=== PATIENT | male | born 1945 | race Caucasian/White ===

== ENCOUNTER 2017-11-16 17:56 | Emergency (ER) | payer OTHER ==
[2017-11-16 18:51] LABS: Absolute Lymphocytes (CBC) 1.2 K/uL (0.7-4.9); Absolute Monocytes 0.6 K/uL (0.1-1.3); Absolute Neutrophil 7.7 K/uL (1.8-8.0); Basophils % 0.4 % (0-1.3); Eosinophils % 2.5 % (0-4.4); Hematocrit 36.8 % (39.6-49.0); Lymphocytes % 12.6 % (15.3-44.8); MCH 29.8 pg (27.0-35.0); MCV 90.9 fL (80-100); MPV 8.6 fL (7.6-11.3); Monocytes % 5.8 % (3.3-12.3); RBC Red Blood Cell Count 4.05 M/uL (4.33-5.43)
[2017-11-16 19:13] LABS: Potassium 3.8 mEq/L (3.6-5.0)
--- NOTE | 2017-11-16 19:20 | RAD REPORT ---
EXAM DESCRIPTION: CT - Head Brain Wo Cont - 11/16/2017 6:56 pm CLINICAL HISTORY: Alteration of consciousness/ head injury COMPARISON: none TECHNIQUE: Computed axial tomography of the head was obtained. IV contrast was not requested. All CT scans are performed using dose optimization technique as appropriate and may include automated exposure control or mA/KV adjustment according to patient size. FINDINGS: Left frontal scalp swelling is present. An intracranial bleed is not seen . The ventricles are normal in caliber. No extra-axial fluid collection is noted. Moderate low-density areas within the right cerebrum has th e appearance of cystic encephalomalacia probably secondary to an old infarction. Mild low-density wit hin the periventricular deep white matter likely represent ischemic changes secondary to small vessel disease. Fluid within the sinuses/ mastoids is not seen. IMPRESSION: Left frontal scalp swelling without visualization acute intracranial abnormality. If pat ient's symptoms persist MRI of the brain would be recommended.
--- NOTE | 2017-11-16 20:29 | ER ---
Nurse's Notes [facility] Name: Valentín Senior Jr Age: 72 yrs Sex: Male : 1945 Arrival Date: 11/16/2017 Time: 17:58 Bed 6 Private MD: Diagnosis: Hypoglycemia, unspecified;Superficial injury of head Presentation: 11/16 17:59 Presenting complaint: EMS states: called EMS for diabetic episode, reported pt was hb not acting himself, flopping around in the bed. Upon arrival BGL 29, improved to 134 after 1/2 AMP D50. Hx AFib, DM, HTN, CVA, pacemaker. Transition of care: patient was not received from another setting of care. Onset of symptoms was November 16, 2017. Initial Sepsis Screen: Does the patient meet any 2 criteria? No. Patient's initial sepsis screen is negative. Does the patient have a suspected source of infection? No. Patient's initial sepsis screen is negative. Care prior to arrival: IV initiated. 20 GA, in the right antecubital area. 17:59 Method Of Arrival: EMS: [facility] hb 17:59 Acuity: ILANA 3 hb Historical: - Allergies: 18:05 Morphine; hb - Home Meds: 18:05 apixaban 5 mg Oral 1 tab 2 times per day [Active]; artificial tears(hypromellose) 0.4 % hb Opht drop 1 drop right for Dry Eye [Active]; calcium 250 mg/ vitamin D 125 Tab [Active]; docusate calcium 240 mg Oral cap 1 cap once daily [Active]; Creon 6,000-19,000 -30,000 unit Oral cpDR 1 cap 4 x day [Active]; finasteride 5 mg Oral tab 1 tab once daily [Active]; hydroxyzine pamoate 50 mg Oral cap 1 cap at bedtime [Active]; insulin detemir 30 units SQ daily [Active]; Insulin Glargine insulin aspartate Flexpen Sub-Q 12 units before meals [Active]; latanoprost ,005 % OPH Soln [Active]; lidocaine 5% patch [Active]; loratadine 10 mg Oral tab 1 tab once daily [Active]; metoprolol tartrate 25 mg Oral tab 0.5 tab 2 times per day [Active]; omeprazole 20 mg Oral cpDR 1 cap once daily [Active]; oxybutynin chloride 5 mg Oral tab 1 tab 3 times per day [Active]; pantoprazole 40 mg Oral TbEC 1 tab 2 times per day [Active]; pregabalin 150 mg cap Oral 3 times per day [Active]; ranitidine HCl 300 mg Oral cap [Active]; simvastatin 10 mg Oral tab 1 tab once daily [Active]; tamsulosin 0.4 mg Oral cp24 1 cap once daily [Active]; tiotropium 18 mcg INHL CAP 30 daily [Active]; - PMHx: 18:05 Atrial Fib; CAD; CVA; Diabetes - IDDM; Hernia; Pacemaker; Pancreatitis; Pneumonia; hb - Immunization history:: Adult Immunizations up to date. - Social history:: Smoking status: Patient/guardian denies using tobacco. Screenin:30 Abuse screen: Denies threats or abuse. Denies injuries from another. Nutritional hb screening: No deficits noted. Tuberculosis screening: No symptoms or risk factors identified. Fall Risk Total Damon Fall Scale indicates Low Risk Score (25-44 pts). Fall prevention measures have been instituted. Side Rails Up X 2 Frequent Obs/Assesments occuring Family Present and informed to notify staff if they need to leave bedside As available Patient and Family Educated on Fall Prevention Program and strategies. Assessment: 18:29 General: Appears in no apparent distress. Behavior is calm, cooperative. Pain: Denies hb pain. Neuro: Level of Consciousness is awake, alert, obeys commands, Oriented to person, place, time, situation. Cardiovascular: Capillary refill < 3 seconds Patient's skin is warm and dry. Respiratory: Airway is patent Trachea midline Respiratory effort is even, unlabored, Respiratory pattern is regular, symmetrical, Breath sounds are clear bilaterally. GI: No signs and/or symptoms were reported involving the gastrointestinal system. : No signs and/or symptoms were reported regarding the genitourinary system. EENT: No signs and/or symptoms were reported regarding the EENT system. Derm: No signs and/or symptoms reported regarding the dermatologic system. Skin is pink, warm \T\ dry. Musculoskeletal: No signs and/or symptoms reported regarding the musculoskeletal system. 19:13 Reassessment: Patient appears in no apparent distress at this time. Patient is alert, ak1 oriented x 3, equal unlabored respirations, skin warm/dry/pink. pt A\T\OX4, finishing meal tray at the bedside since returning from CT. Patient states symptoms have improved. 19:40 Reassessment: pt given regular soda per ERP verbal order. ak1 Vital Signs: 17:59 BP 99 / 71; Pulse 78; Resp 18; Temp 97.9; Pulse Ox 100% on R/A; Pain 0/10; hb 18:46 BP 103 / 68; Pulse 74; Resp 16; Pulse Ox 100% on R/A; Pain 0/10; hb ED Course: 17:58 Patient arrived in ED. hb 18:02 Triage completed. hb 18:09 [place] PA is PHCP. jr8 18:09 Robert Guevara MD is Attending Physician. jr8 18:26 Mellisa Jimenez, RN is Primary Nurse. hb 18:29 Arm band placed on right wrist. hb 18:30 Patient has correct armband on for positive identification. Placed in gown. Bed in low hb position. Call light in reach. Side rails up X2. 18:[address] via stretcher. jg1 18:56 CT Head Brain wo Cont In Process Unspecified. EDMS 20:31 No provider procedures requiring assistance completed. ak1 20:38 IV discontinued, intact, bleeding controlled, No redness/swelling at site. Pressure ak1 dressing applied, 20g to right AC removed prior to discharge. Administered Medications: No medications were administered Point of Care Testing: Blood Glucose: 17:59 Blood Glucose: 131 mg/dL; hb 19:40 Blood Glucose: 89 mg/dL; ak1 20:14 Blood Glucose: 173 mg/dL; ak1 Ranges: Outcome: 20:27 Discharge ordered by . jr8 20:38 Discharged to home via wheelchair, with family. ak1 20:38 Condition: improved 20:38 Discharge instructions given to patient, family, Instructed on discharge instructions, follow up and referral plans. Demonstrated understanding of instructions, follow-up care. 20:40 Patient left the ED. ak1 Signatures: Dispatcher [employer] EDMS Prachi Elizabeth j [place] PA PA jr8 Anna Antonio, RN RN ak1 Mellisa Jimenez, DEVON RN hb
--- NOTE | 2017-11-16 20:29 | EDPHYS ---
Physician Documentation [facility] Name: Valentín Senior Jr Age: 72 yrs Sex: Male : 1945 Arrival Date: 11/16/2017 Time: 17:58 Bed 6 Private MD: ED Physician Robert Guevara HPI: 11/16 18:41 This 72 yrs old Male presents to ER via EMS with complaints of Low Blood jr8 Sugar. 18:41 Onset: The symptoms/episode began/occurred acutely, today. Associated signs and jr8 symptoms: Pertinent positives: None. Current symptoms: In the emergency department the patient's symptoms have resolved, the patient is alert and fully oriented, has normal speech, has normal responsiveness, has no confusion. The patient has experienced similar episodes in the past, several times. The patient has not recently seen a physician. Family stated that he fell yesterday. Has history of frequent falls due to instability. Called EMS today when he started to become altered and combative. EMS found BGL to be 28. Glucose given. Patient now back to baseline. Denies any chest pain, shortness of breath, worsening of cough, fevers, abdominal pain, n/v/d, urinary complaints. Stated that his BGL will sometimes do this . Historical: - Allergies: 18:05 Morphine; hb - Home Meds: 18:05 apixaban 5 mg Oral 1 tab 2 times per day [Active]; artificial tears(hypromellose) 0.4 % hb Opht drop 1 drop right for Dry Eye [Active]; calcium 250 mg/ vitamin D 125 Tab [Active]; docusate calcium 240 mg Oral cap 1 cap once daily [Active]; Creon 6,000-19,000 -30,000 unit Oral cpDR 1 cap 4 x day [Active]; finasteride 5 mg Oral tab 1 tab once daily [Active]; hydroxyzine pamoate 50 mg Oral cap 1 cap at bedtime [Active]; insulin detemir 30 units SQ daily [Active]; Insulin Glargine insulin aspartate Flexpen Sub-Q 12 units before meals [Active]; latanoprost ,005 % OPH Soln [Active]; lidocaine 5% patch [Active]; loratadine 10 mg Oral tab 1 tab once daily [Active]; metoprolol tartrate 25 mg Oral tab 0.5 tab 2 times per day [Active]; omeprazole 20 mg Oral cpDR 1 cap once daily [Active]; oxybutynin chloride 5 mg Oral tab 1 tab 3 times per day [Active]; pantoprazole 40 mg Oral TbEC 1 tab 2 times per day [Active]; pregabalin 150 mg cap Oral 3 times per day [Active]; ranitidine HCl 300 mg Oral cap [Active]; simvastatin 10 mg Oral tab 1 tab once daily [Active]; tamsulosin 0.4 mg Oral cp24 1 cap once daily [Active]; tiotropium 18 mcg INHL CAP 30 daily [Active]; - PMHx: 18:05 Atrial Fib; CAD; CVA; Diabetes - IDDM; Hernia; Pacemaker; Pancreatitis; Pneumonia; hb - Immunization history:: Adult Immunizations up to date. - Social history:: Smoking status: Patient/guardian denies using tobacco. ROS: 18:41 Eyes: Negative for injury, pain, redness, and discharge, ENT: Negative for injury, jr8 pain, and discharge, Neck: Negative for injury, pain, and swelling, Cardiovascular: Negative for chest pain, palpitations, and edema, Respiratory: Negative for shortness of breath, cough, wheezing, and pleuritic chest pain, Abdomen/GI: Negative for abdominal pain, nausea, vomiting, diarrhea, and constipation, Back: Negative for injury and pain, MS/Extremity: Negative for injury and deformity, Skin: Negative for injury, rash, and discoloration, Neuro: Negative for headache, weakness, numbness, tingling, and seizure. Exam: 18:41 Eyes: Pupils equal round and reactive to light, extra-ocular motions intact. Lids and jr8 lashes normal. Conjunctiva and sclera are non-icteric and not injected. Cornea within normal limits. Periorbital areas with no swelling, redness, or edema. ENT: Nares patent. No nasal discharge, no septal abnormalities noted. Tympanic membranes are normal and external auditory canals are clear. Oropharynx with no redness, swelling, or masses, exudates, or evidence of obstruction, uvula midline. Mucous membranes moist. Neck: Trachea midline, no thyromegaly or masses palpated, and no cervical lymphadenopathy. Supple, full range of motion without nuchal rigidity, or vertebral point tenderness. No Meningismus. Cardiovascular: Regular rate and rhythm with a normal S1 and S2. No gallops, murmurs, or rubs. Normal PMI, no JVD. No pulse deficits. Respiratory: Lungs have equal breath sounds bilaterally, wheezing noted bilaterally. No increased work of breathing, no retractions or nasal flaring. Abdomen/GI: Soft, non-tender, with normal bowel sounds. No distension or tympany. No guarding or rebound. No evidence of tenderness throughout. Back: No spinal tenderness. No costovertebral tenderness. Full range of motion. Skin: Warm, dry with normal turgor. Normal color with no rashes, no lesions, and no evidence of cellulitis. MS/ Extremity: Pulses equal, no cyanosis. Neurovascular intact. Full, normal range of motion. Neuro: Awake and alert, GCS 15, oriented to person, place, time, and situation. Cranial nerves II-XII grossly intact. Motor strength 5/5 in all extremities. Sensory grossly intact. Cerebellar exam normal. Normal gait. 18:44 Head/face: Noted is contusion, that is superficial, of the forehead. jr8 Vital Signs: 17:59 BP 99 / 71; Pulse 78; Resp 18; Temp 97.9; Pulse Ox 100% on R/A; Pain 0/10; hb 18:46 BP 103 / 68; Pulse 74; Resp 16; Pulse Ox 100% on R/A; Pain 0/10; hb MDM: 18:09 Patient medically screened. jr8 20:26 Data reviewed: vital signs, nurses notes, lab test result(s), radiologic studies, plain jr8 films, and as a result, I will discharge patient. Data interpreted: Pulse oximetry: on room air is 100 %. Interpretation: normal. Counseling: I had a detailed discussion with the patient and/or guardian regarding: the historical points, exam findings, and any diagnostic results supporting the discharge/admit diagnosis, lab results, radiology results, the need for outpatient follow up, a family practitioner, to return to the emergency department if symptoms worsen or persist or if there are any questions or concerns that arise at home. Response to treatment: the patient's symptoms have resolved after treatment. 11/16 18:13 Order name: Glucose, Ancillary Testing; Complete Time: 18:32 EDMS 11/16 18:37 Order name: CBC with Diff; Complete Time: 19:10 jr8 11/16 18:37 Order name: Basic Metabolic Panel; Complete Time: 19:26 [facility] 11/16 18:37 Order name: Diet Ada 2000 Abdiaziz; Complete Time: 18:37 jr8 11/16 18:37 Order name: CT Head Brain wo Cont; Complete Time: 19:26 8 11/16 19:41 Order name: Glucose, Ancillary Testing; Complete Time: 19:42 [facility] 11/16 18:37 Order name: IV; Complete Time: 18:39 jr8 Administered Medications: No medications were administered Point of Care Testing: Blood Glucose: 17:59 Blood Glucose: 131 mg/dL; hb 19:40 Blood Glucose: 89 mg/dL; ak1 20:14 Blood Glucose: 173 mg/dL; ak1 Ranges: Critical Glucose Levels:Adult <50 mg/dl or >400 mg/dl <40 mg/dl or >180 mg/dl Disposition: 11/16/17 20:27 Discharged to Home. Impression: Hypoglycemia, unspecified, Superficial injury of head. - Condition is Stable. - Discharge Instructions: Head Injury, Adult, Hypoglycemia, Blood Glucose Monitoring, Adult. - Medication Reconciliation Form, Thank You Letter, Antibiotic Education, Prescription Opioid Use form. - Follow up: Private Physician; When: 1 - 2 days; Reason: Recheck today's complaints, Continuance of care, Re-evaluation by your physician. - Problem is new. - Symptoms have improved. Addendum: 11/19/2017 19:03 Co-signature as Attending Physician, Robert Guevara MD. r n Signatures: Dispatcher [employer] [facility] Robert Guevara MD MD rn Roszak, Josh, PA PA jr8 Anna Antonio RN RN ak1 Mellisa Jimenez RN RN Corrections: (The following items were deleted from the chart) 11/16 18:44 18:41 Eyes: Pupils equal round and reactive to light, extra-ocular motions intact. Lids jr8 and lashes normal. Conjunctiva and sclera are non-icteric and not injected. Cornea within normal limits. Periorbital areas with no swelling, redness, or edema. ENT: Nares patent. No nasal discharge, no septal abnormalities noted. Tympanic membranes are normal and external auditory canals are clear. Oropharynx with no redness, swelling, or masses, exudates, or evidence of obstruction, uvula midline. Mucous membranes moist. Neck: Trachea midline, no thyromegaly or masses palpated, and no cervical lymphadenopathy. Supple, full range of motion without nuchal rigidity, or vertebral point tenderness. No Meningismus. Cardiovascular: Regular rate and rhythm with a normal S1 and S2. No gallops, murmurs, or rubs. Normal PMI, no JVD. No pulse deficits. Respiratory: Lungs have equal breath sounds bilaterally, wheezing noted bilaterally. No increased work of breathing, no retractions or nasal flaring. Abdomen/GI: Soft, non-tender, with normal bowel sounds. No distension or tympany. No guarding or rebound. No evidence of tenderness throughout. Back: No spinal tenderness. No costovertebral tenderness. Full range of motion. Skin: Warm, dry with normal turgor. Normal color with no rashes, no lesions, and no evidence of cellulitis. MS/ Extremity: Pulses equal, no cyanosis. Neurovascular intact. Full, normal range of motion. Neuro: Awake and alert, GCS 15, oriented to person, place, time, and situation. Cranial nerves II-XII grossly intact. Motor strength 5/5 in all extremities. Sensory grossly intact. Cerebellar exam normal. Normal gait. jr8
== END 2017-11-16 20:40 | disposition home or self-care (01) ==
LOC: ER 17:56
DX: E11.649 Type 2 diabetes mellitus with hypoglycemia without coma (principal); S09.90XA Unspecified injury of head, initial encounter; I48.2 Chronic atrial fibrillation; I25.10 Atherosclerotic heart disease of native coronary artery without angina pectoris; Z79.4 Long term (current) use of insulin; Z87.01 Personal history of pneumonia (recurrent); Z95.0 Presence of cardiac pacemaker; X58.XXXA Exposure to other specified factors, initial encounter; Y93.9 Activity, unspecified; Y92.9 Unspecified place or not applicable; Z91.81 History of falling
CPT/HCPCS: 36415; 70450; 80048; 82962; 85025; 99284

== ENCOUNTER 2018-07-16 11:56 | Emergency (ER) | payer OTHER ==
--- OUTSIDE RECORDS SUMMARY | 2018-07-16 12:01 | XMS REPORT | Continuity of Care Document ---
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 DYSRHYTHMIAS Active 08/16/[address] GIOVANNA Active 08/16/19 [facility] BILLING [address] [place] [address] Atrial Active Problem 08/21/2016 [facility] fibrillation [facility] CVA (<span Resolved Problem 08/21/2016 Had CVA in [facility] ID="[id number] 1994 which Medical ">Confirmed</spa left [facility] n>)<sup>1</sup> 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 He is using 1 stick for mobility Diabetes Active Problem 08/21/2016 On insulin [facility] mellitus<sup>2</ Medical sup> Center Pancreas Resolved Problem 08/21/2016 Had part of [facility] disorder<sup>3</ his Medical sup> pancreas Center removed due to excess ETOH. DYSTHYMIC Active [facility] Medications Medication Details Route Status Patient Ordering Order Source Instructions Provider Date bacitracin-polym 1 appl, Route: No Longer 08/19[facility] yxin B topical TOP, Daily, Drug Active 2016 Medical form: [place], [place] Start date: 08/19/16 9:00:00 NECK PINNER, Duration: 30 day, Stop date: 09/17/16 9:00:00 CSTNotes: (Same As: Polysporin) Neosporin 1 appl, Route: Inactive 08/18[facility] TOP, Daily, Drug 2017 Medical form: OINT, [place] Start date: 08/18/16 15:07:00 NECK PINNER, Duration: 30 day, Stop date: 09/17/16 9:00:00 NECK PINNER apixaban 5 MG 5 mg=1 tab, PO, Active 08/18[facility] Oral Tablet BID, # 60 tab, 0 2016 Medical [Eliquis] Refill(s) Center tamsulosin 0.4 0.4 mg=1 cap, Active 01/25/ [facility] [place] mg oral capsule PO, Daily, # 30 2016 Medical cap, 0 Refill(s) Center Ranitidine 150 150 mg=1 tab, Active [place] MG Oral Tablet PO, BID, # 60 2016 Medical tab, 0 Refill(s) Center omeprazole 40 mg 40 mg=1 cap, PO, Active [place] oral delayed Daily, # 30 cap, 2016 Medical release capsule 0 Refill(s) Center Metformin 500 mg=1 tab, Active [place] hydrochloride PO, BID-Meals, # 2017 Medical 500 MG Oral 180 tab, 0 Center Tablet Refill(s) Furosemide 20 MG 20 mg=1 tab, PO, Active [place] Oral Tablet Daily, # 30 tab, 2016 Medical 0 Refill(s) Center finasteride 5 mg 5 mg=1 tab, PO, Active [place] oral tablet Daily, # 30 tab, 2016 Medical 0 Refill(s) Center DULoxetine 60 mg 60 mg=1 cap, PO, Active [place] oral delayed Daily, # 30 cap, 2016 Medical release capsule 0 Refill(s) Center DULoxetine 60 mg 60 mg=1 cap, PO, Inactive [place] oral delayed Daily, # 30 cap, 2016 Medical release capsule 0 Refill(s) Center finasteride 5 mg 5 mg=1 tab, PO, Inactive [place] oral tablet Daily, # 30 tab, 2016 Medical 0 Refill(s) Center Furosemide 20 MG 20 mg=1 tab, PO, Inactive [place] Oral Tablet Daily, # 30 tab, 2016 Medical 0 Refill(s) Center Metformin 500 mg=1 tab, Inactive [place] hydrochloride PO, BID-Meals, # 2017 Medical 500 MG Oral 180 tab, 0 Center Tablet Refill(s) omeprazole 40 mg 40 mg=1 cap, PO, Inactive [place] oral delayed Daily, # 30 cap, 2016 Medical release capsule 0 Refill(s) Center Ranitidine 150 150 mg=1 tab, Inactive [place] MG Oral Tablet PO, BID, # 60 2017 Medical tab, 0 Refill(s) Center tamsulosin 0.4 0.4 mg=1 cap, Inactive [place] mg oral capsule PO, Daily, # 30 2016 Medical cap, 0 Refill(s) Center apixaban 5 MG 5 mg=1 tab, PO, Inactive [place] Oral Tablet BID, # 60 tab, 0 2017 Medical [Eliquis] Refill(s) Center atorvastatin 40 40 mg=1 tab, PO, Active [place] mg oral tablet Bedtime, # 30 2016 Medical tab, 0 Refill(s) Center metoprolol 25 mg=1 tab, PO, Active [place] tartrate 25 mg BID, # 60 tab, 0 2017 Medical oral tablet Refill(s) Center metoprolol 25 mg=1 tab, PO, Inactive [facility] tartrate 25 mg BID, # 60 tab, 0 2017 Medical oral tablet Refill(s) Center atorvastatin 40 40 mg=1 tab, PO, Inactive [place] mg oral tablet Bedtime, # 30 2016 Medical tab, 0 Refill(s) Center apixaban 5 MG 5 mg=1 tab, PO, Inactive [facility] Oral Tablet BID, # 60 tab, 0 2017 Medical [Eliquis] Refill(s) Center tamsulosin 0.4 0.4 mg=1 cap, Inactive [place] mg oral capsule PO, Daily, # 30 2016 Medical cap, 0 Refill(s) Center Ranitidine 150 150 mg=1 tab, Inactive [place] MG Oral Tablet PO, BID, # 60 2017 Medical tab, 0 Refill(s) Center omeprazole 40 mg 40 mg=1 cap, PO, Inactive [facility] oral delayed Daily, # 30 cap, 2016 Medical release capsule 0 Refill(s) Center Metformin 500 mg=1 tab, Inactive [place] hydrochloride PO, BID-Meals, # 2017 Medical 500 MG Oral 180 tab, 0 Center Tablet Refill(s) Furosemide 20 MG 20 mg=1 tab, PO, Inactive [place] Oral Tablet Daily, # 30 tab, 2017 Medical 0 Refill(s) Center finasteride 5 mg 5 mg=1 tab, PO, Inactive [facility] oral tablet Daily, # 30 tab, 2017 Medical 0 Refill(s) Center DULoxetine 60 mg 60 mg=1 cap, PO, Inactive [place] oral delayed Daily, # 30 cap, 2017 Medical release capsule 0 Refill(s) Center apixaban 5 MG 5 mg=1 tab, PO, Inactive [facility] Oral Tablet BID, # 60 tab, 0 2017 Medical [Eliquis] Refill(s) Center tamsulosin 0.4 0.4 mg=1 cap, Inactive [place] mg oral capsule PO, Daily, # 30 2017 Medical cap, 0 Refill(s) Center Ranitidine 150 150 mg=1 tab, Inactive [place] MG Oral Tablet PO, BID, # 60 2017 Medical tab, 0 Refill(s) Center Metformin 500 mg=1 tab, Inactive [place] hydrochloride PO, BID-Meals, # 2017 Medical 500 MG Oral 180 tab, 0 Center Tablet Refill(s) Furosemide 20 MG 20 mg=1 tab, PO, Inactive [facility] Oral Tablet Daily, # 30 tab, 2017 Medical 0 Refill(s) Center finasteride 5 mg 5 mg=1 tab, PO, Inactive [facility] oral tablet Daily, # 30 tab, 2017 Medical 0 Refill(s) Center DULoxetine 60 mg 60 mg=1 cap, PO, Inactive [facility] oral delayed Daily, # 30 cap, 2017 Medical release capsule 0 Refill(s) Center metoprolol 25 mg=1 tab, PO, Inactive [facility] tartrate 25 mg BID, # 60 tab, 0 2017 Medical oral tablet Refill(s) Center omeprazole 40 mg 40 mg=1 cap, PO, Inactive [facility] oral delayed Daily, # 30 cap, 2017 Medical release capsule 0 Refill(s) Center atorvastatin 40 40 mg=1 tab, PO, Inactive [facility] mg oral tablet Bedtime, # 30 2017 Medical tab, 0 Refill(s) Center hydrOXYzine 25 mg=1 cap, PO, Inactive [facility] pamoate Q6H, PRN nausea, 2017 Medical # 20 cap, 0 Center Refill(s) Furosemide 20 MG 20 mg=1 tab, PO, Inactive [facility] Oral Tablet Daily, # 30 tab, 2017 Medical 0 Refill(s) Center finasteride 5 mg 5 mg=1 tab, PO, Inactive [facility] oral tablet Daily, # 30 tab, 2017 Medical 0 Refill(s) Center omeprazole 20 mg 20 mg=1 tab, PO, Inactive [facility] oral enteric BID, # 30 tab, 0 2017 Medical coated tablet Refill(s) [place] tamsulosin 0.4 0.4 mg=1 cap, Inactive [facility] mg oral capsule PO, Daily, # 30 2017 Medical cap, 0 Refill(s) [place] Omeprazole PO, Daily, 0 Inactive [facility] Refill(s) 2017 [facility] metoprolol 25 mg=1 tab, PO, Inactive [facility] tartrate 25 mg BID, # 180 tab, 2017 Medical oral tablet 0 Refill(s) [place] apixaban 5 MG 5 mg=1 tab, PO, Inactive [facility] Oral Tablet BID, 0 Refill(s) 2017 Medical [Eliquis] [place] Metformin 500 mg=1 tab, Inactive [facility] hydrochloride PO, BID-Meals, # 2017 Medical 500 MG Oral 30 tab, 0 [place] Tablet Refill(s) Ranitidine 150 150 mg=1 tab, Inactive 08/18[facility] MG Oral Tablet PO, BID, # 60 2017 Medical tab, 0 Refill(s) [place] DULoxetine 60 mg 60 mg=1 cap, PO, Inactive 08/18[facility] oral delayed Daily, # 30 cap, 2017 Medical release capsule 0 Refill(s) [place] simvastatin 10 10 mg=1 tab, PO, Inactive 08/18[facility] mg oral tablet Bedtime, # 30 2017 Medical tab, 0 Refill(s) [place] oxybutynin 5 mg 5 mg=1 tab, PO, Inactive [facility] oral tablet TID, PRN 2017 Medical Other-See Center Comments, # 30 tab, 0 Refill(s) Sodium Chloride 250 mL, 250 Inactive [facility] 0.154 MEQ/ML ml/hr, Infuse 2017 Medical Injectable Over: 1 hr, [place] Solution Route: IV, 250, Drug form: INJ, ONCE, Priority: STAT, Dosing Weight 82 kg, Start date: 08/18/16 8:56:00 NECK PINNER, Duration: 1 doses or times, Stop date: 08/18/16 8:56:00 NECK PINNER Tylenol 650 mg, 2 tab, Inactive [facility] Route: PO, Drug 2017 Medical form: TAB, Q6H, Center Dosing Weight 82, kg, PRN Pain Score 1-3, Start date: 08/18/16 8:52:00 NECK PINNER, Duration: 30 day, Stop date: 09/17/16 8:51:00 CSTNotes: Do not exceed 4 gm/day. (Same as: Tylenol) Magnesium Oxide 800 mg, 2 tab, Inactive [facility] Route: PO, Drug 2016 Medical form: TAB, ONCE, Center Dosing Weight 82, kg, Start date: 08/18/16 8:49:00 NECK PINNER, Stop date: 08/18/16 8:49:00 CSTNotes: (Same as: Mag-Ox 400) Magnesium oxide [id number] elemental magnesium Dose=____mg magnesium oxide (___mg elemental magnesium) Metoprolol 5 mg, 5 mL, Inactive [facility] Route: IV, Drug 2016 Medical form: INJ, ONCE, Center Dosing Weight 82, kg, Start date: 08/18/16 4:35:00 NECK PINNER, Stop date: 08/18/16 4:35:00 CSTNotes: (Same as: Lopressor) Push over 2 minutes Robitussin 30 mg, Route: No Longer [facility] CoughGels PO, Q6H, Dosing Active 2016 Medical Weight 82, kg, Center Start date: 08/18/16 0:00:00 NECK PINNER, Duration: 30 day, Stop date: 09/16/16 18:00:00 NECK PINNER Eliquis 5 mg, 1 tab, No Longer [facility] Route: PO, Drug Active 2016 Medical form: TAB, Q12H, Center Dosing Weight 82, kg, Start date: 08/17/16 21:00:00 NECK PINNER, Duration: 30 day, Stop date: 09/16/16 9:00:00 CSTNotes: Same as: Eliquis benzocaine-menth 1 lozenge, No Longer [facility] ol topical Route: MUCOUS Active 2016 Medical MEM, Drug Form: Center DANILO, Q2H, PRN Cough, Start date: 08/17/16 19:29:00 NECK PINNER, Duration: 30 day, Stop date: 09/16/16 19:28:00 CSTNotes: Cepacol lozenges Dispense 1 box=16 lozenges (Same As: Cepacol Lozenges) Albuterol 0.833 3 ml, Route: No Longer [place] MG/ML / NEB, Drug Form: Active 2017 Medical Ipratropium SOLN, Dosing Center [place] 0.167 Weight 82, kg, MG/ML Inhalant PRN, PRN Solution Respiratory [DuoNeb] Protocol, Start date: 08/17/16 18:46:00 NECK PINNER, Duration: 30 day, Stop date: 09/16/16 18:45:00 CSTNotes: (Same as: Duoneb) metoprolol 12.5 mg, 1 tab, No Longer [place] tartrate Route: PO, Drug Active 2017 Medical form: TAB, Q8H, Center Dosing Weight 82, kg, Start date: 08/17/16 16:00:00 NECK PINNER, Duration: 30 day, Stop date: 09/16/16 8:00:00 CSTNotes: (Same as: Lopressor) 12.5mg=1/4 X 50 mg tab. Metoprolol 5 mg, 5 mL, Inactive [place] Route: IV, Drug 2016 Medical form: INJ, ONCE, Center Dosing Weight 82, kg, Priority: STAT, Start date: 08/17/16 9:58:00 NECK PINNER, Stop date: 08/17/16 9:58:00 CSTNotes: (Same as: Lopressor) Push over 2 minutes Acetaminophen 650 mg, 20.3 mL, Inactive [place] Route: PO, Drug 2016 Medical form: LIQ, ONCE, Center Dosing Weight 82, kg, Priority: STAT, Start date: 08/17/16 8:55:00 NECK PINNER, Stop date: 08/17/16 8:55:00 CSTNotes: Max acetaminophen=40 00mg/day (4 gm/day). (Same as: Tylenol) Magnesium Oxide 400 mg, 1 tab, Inactive [place] Route: PO, Drug 2017 Medical form: TAB, ONCE, Center Dosing Weight 82, kg, Start date: 08/17/16 5:32:00 NECK PINNER, Stop date: 08/17/16 5:32:00 CSTNotes: (Same as: Mag-Ox 400) Magnesium oxide [id number] elemental magnesium Dose=____mg magnesium oxide (___mg elemental magnesium) Tramadol 100 mg, 2 tab, Inactive [place] Route: PO, Drug 2017 Medical form: TAB, ONCE, Center Dosing Weight 82, kg, Start date: 08/17/16 4:22:00 NECK PINNER, Stop date: 08/17/16 4:22:00 CSTNotes: Not to exceed 400mg/day. (Same As: Ultram) atorvastatin 40 mg, 1 tab, No Longer [place] Route: PO, Drug Active 2017 Medical form: TAB, Center Bedtime, Dosing Weight 82, kg, Start date: 08/16/16 21:00:00 NECK PINNER, Duration: 30 day, Stop date: 09/14/16 21:00:00 CSTNotes: (Same as: Lipitor) insulin detemir 10 unit, 0.1 mL, No Longer [place] Route: SUB-Q, Active 2016 Medical Drug form: SOLN, Center Daily, Dosing Weight 82, kg, Start date: 08/16/16 9:00:00 NECK PINNER, Duration: 30 day, Stop date: 09/14/16 9:00:00 CSTNotes: Same as Levemir Do not hold insulin without contacting prescriber WASTE: F/P - Black; E - Municipal Trash Bin "single patient use only" Protonix 40 mg, 1 tab, Inactive [place] Route: PO, Drug 2016 Medical form: ECTAB, Center Daily, Dosing Weight 82, kg, Start date: 08/16/16 9:00:00 NECK PINNER, Duration: 30 day, Stop date: 09/14/16 9:00:00 CSTNotes: Tablet should not be chewed or crushed. (Same as: Protonix) Insulin Glargine 5 unit, Route: Inactive [place] 100 UNT/ML SUB-Q, Daily, 2017 Medical Injectable Dosing Weight Center Solution 82, kg, Start date: 08/16/16 9:00:00 NECK PINNER, Duration: 30 day, Stop date: 09/14/16 9:00:00 NECK PINNER Docusate Sodium 1 tab, Route: No Longer [place] 50 MG / PO, Drug Form: Active 2017 Medical sennosides, [facility] TAB, Dosing Center 8.6 MG Oral Weight 82, kg, Tablet BID, Start date: 08/16/16 9:00:00 NECK PINNER, Duration: 30 day, Stop date: 09/14/16 17:00:00 CSTNotes: (Same as Senokot-S) Equiv. to Nicolasa-Colace. Insulin, Aspart, 2 unit, 0.02 mL, No Longer [facility] Human Route: SUB-Q, Active 2016 Medical Drug form: SOLN, Center Sliding Scale, Dosing Weight 82, kg, PRN Blood Glucose Results, Start date: 08/16/16 4:31:00 NECK PINNER, Duration: 30 day, Stop date: 09/15/16 4:30:00 CSTNotes: Roll in palms of hands gently; Do not shake vigorously. (Same as: NovoLOG) "single patient use only" WASTE: F/P - Black; E - Municipal Trash Bin Stable for 28 days at room temperature. Expires in days from Da te Glucagon 1 mg, Route: IM, No Longer [facility] Drug form: Active 2017 Medical PDR/INJ, PRN, Center Dosing Weight 82, kg, PRN Blood Glucose Results, Start date: 08/16/16 4:31:00 NECK PINNER, Duration: 30 day, Stop date: 09/15/16 4:30:00 NECK PINNER Dextrose 50% 12.5 gm, 25 mL, No Longer [place] Syringe Route: IVP, Drug Active 2016 Medical Form: INJ, Center Dosing Weight 82, kg, PRN, PRN Blood Glucose Results, Start date: 08/16/16 4:31:00 NECK PINNER, Duration: 30 day, Stop date: 09/15/16 4:30:00 NECK PINNER heparin additive 500 mL, Rate: No Longer [place] 25,000 unit [14 20.68 ml/hr, Active 2017 Medical unit/kg/hr] + Infuse over: Center Premix Diluent 24.2 hr, Route: Dextrose 5% 500 IV, Dosing mL Weight 73.84 kg, Total Volume: 500 mL, Start date: 08/16/16 4:31:00 NECK PINNER, Duration: 30 day, Stop date: 09/15/16 4:30:00 NECK PINNER Magnesium 1 gm, 100 mL, Inactive [place] Sulfate Route: IV, Drug 2016 Medical form: INJ, ONCE, Center Dosing Weight 82, kg, Start date: 08/16/16 3:19:00 NECK PINNER, Stop date: 08/16/16 3:19:00 CSTNotes: WASTE: F/P - Sink; E - Municipal Trash Bin Magnesium 2 gm, Route: Inactive [place] Sulfate IVPB, Drug form: 2016 Medical INJ, ONCE, Center Dosing Weight 82, kg, Start date: 08/16/16 3:18:00 NECK PINNER, Duration: 2 hr, Stop date: 08/16/16 3:18:00 NECK PINNER Norepinephrine 8 mg, 8 mL, No Longer [place] Rate: Titrate, Active 2016 Medical Start Dose: 0.1 Center microgram/kg/min , Titration: 0.05 microgram/kg/min every 2 - 5 minutes, Goal(s): MAP >=65 mmHg, Max Dose: 1 microgram/kg/min , Route: IV, Dosing Weight 82 kg, Total Volume: 250, Start date: 08/16/16 2:34:00 C...Notes: Not for direct administration - DILUTE. Protect from light. (Same as:Levophed). Administer by either central venous catheter or peripherally-ins erted central catheter (PICC) line. Versed 1 mg, 1 mL, Inactive [place] Route: IVP, Drug 2016 Medical form: INJ, PRN, Center Dosing Weight 82, kg, PRN Other -See Comment, Agitation, Start date: 08/16/16 1:49:00 NECK PINNER, Duration: 30 day, Stop date: 09/15/16 1:48:00 CSTNotes: (Same as: Versed) MEDICATION WASTE Product Size: 2 mg Product Wasted: ___ mg Fentanyl 1,000 microgram, Inactive [place] 20 mL, Rate: 2017 Medical Titrate, Start Center Dose: 50 microgram/hr, Titration: 25 microgram/hour every 15 minutes, Goal(s): RASS -2, Max Dose: 300 microgram/hr, Route: IV, Dosing Weight 82 kg, Total Volume: 20, Start date: 08/16/16 1:48:00 NECK PINNER, Durati... Allergies, Adverse Reactions, Alerts Substance Category Reaction Severity Reaction Status Date Comments Source type Reported Immunizations Immunization Date Given Site Status Last Updated Comments Source Results Order Name Results Value Reference Date Interpretation Comments Source Range CHEM PANEL Magnesium Lvl 1.9 mg/dL 1.8 - 2.4 08/[address] CHEM PANEL Calcium Lvl 9.2 mg/dL 8.5 - 10.5 08/[address] CHEM PANEL eGFR 85 08/18 Result Comment: The eGFR is calculated using the CKD-EPI formula. In most young, healthy individuals the eGFR will be >90 mL/ min/1.73m2. The eGFR declines with age. An eGFR of 60-89 may be normal in [facility] mL/min/1.7 some populations, particularly the elderly, for whom the CKD-EPI formula has not been extensively validated. Use of the eGFR is not recommended in the following populations: [address] Individuals with unstable creatinine concentrations, including patients and those with serious co-morbid conditions. Patients with extremes in muscle mass or diet. The data above are obtained from the National Kidney Disease Education Program (NKDEP) which additionally recommends that when the eGFR is used in patients with extremes of body mass index for purposes of drug dosing, the eGFR should be multiplied by the estimated BMI. CHEM PANEL BUN 14 mg/dL 7 - 22 08/[address] CHEM PANEL Glucose Lvl 166 mg/dL 70 - 99 08/[address] CHEM PANEL Creatinine 0.92 mg/dL 0.50 - 08/18 [facility] Lvl 1.40 [facility] CHEM PANEL Sodium Lvl 140 meq/L 135 - 145 08/[address] CHEM PANEL Potassium Lvl 4.1 meq/L 3.5 - 5.1 08/[address] CHEM PANEL Chloride Lvl 102 meq/L 95 - 109 08/[address] CHEM PANEL CO2 29 meq/L 24 - 32 08/[address] CHEM PANEL AGAP 13.1 meq/L 10.0 - 08/18 [facility] 20.0 [facility] CHEM PANEL Phosphorus 3.7 mg/dL 2.5 - 4.5 08/[address] HEMATOLOGY Platelet 158 K/CMM 133 - 450 08/[address] HEMATOLOGY MPV 9.1 fL 7.4 - 10.4 08/[address] HEMATOLOGY RDW 17.0 % 11.5 - 08/18 14.5 [facility] HEMATOLOGY MCHC 32.1 g/dL 32.0 - 08/18 36.0 [facility] HEMATOLOGY Hct 38.7 % 42.0 - 08/18 54.0 [facility] HEMATOLOGY RBC 4.60 M/CMM 4.70 - 08/18 6.10 /2016 [facility] HEMATOLOGY WBC 8.0 K/CMM 3.7 - 10.4 08/18 [facility] HEMATOLOGY Hgb 12.4 g/dL 14.0 - 08/18 18.0 [facility] HEMATOLOGY MCH 27.0 pg 27.0 - 08/18 [facility] 31.0 [facility] HEMATOLOGY MCV 84.2 fL 80.0 - 08/18 [facility] 94.0 [facility] HEMATOLOGY Segs 70.2 % 45.0 - 08/18 [facility] 75.0 [facility] HEMATOLOGY Eosinophils # 0.3 K/CMM 0.0 - 0.5 08/18 [facility] HEMATOLOGY Monocytes # 0.5 K/CMM 0.0 - 0.8 08/18 [facility] HEMATOLOGY Monocytes 6.5 % 2.0 - 12.0 08/18 [facility] HEMATOLOGY Basophils 0.3 % 0.0 - 1.0 08/18 [facility] HEMATOLOGY Segs-Bands # 5.6 K/CMM 1.5 - 8.1 08/18 2016 [facility] HEMATOLOGY Eosinophils 3.4 % 0.0 - 4.0 08/18 2016 [facility] HEMATOLOGY Lymphocytes # 1.6 K/CMM 1.0 - 5.5 08/18 2016 [facility] HEMATOLOGY Lymphocytes 19.6 % 20.0 - 08/18 [facility] 40.0 [facility] Chest 1view Chest 1view EXAM: XR CHEST 1 VIEW 08/17 [facility] DX DX - [facility] DATE: 08/17/2016 6:46 PM NECK PINNER Read by: Ceasar Rodríguez MD Dictated Date/time: 08/17/16 19:56 Electronically Signed by: Ceasar Rodríguez MD 08/17/16 19:58 FINAL REPORT INDICATION: Abnormal chest sounds. Findings: Comparison is made to prior radiograph from 08/17/2016 at 0017 hours. Atrial appendage clip is again seen with a prominent cardiac silhouette which remains stable. The right lung appears clear with sharp costophrenic recess. There is a left retrocardiac opacity with appea javed of slight improvement, where medial part of the diaphragm is visualized. The left retrocardiac opacity may represent either singly or in combination subsegmental atelectasis, pneumonia or pleural effusion. IMPRESSION: Right lung clear. Left retrocardiac opacity with slight improvement. CHEM PANEL eGFR 74 08/17 Result Comment: The eGFR is calculated using the CKD-EPI formula. In most young, healthy individuals the eGFR will be >90 mL/ min/1.73m2. The eGFR declines with age. An eGFR of 60-89 may be normal in [facility] mL/min/1. some populations, particularly the elderly, for whom the CKD-EPI formula has not been extensively validated. Use of the eGFR is not recommended in the following populations: [address] Individuals with unstable creatinine concentrations, including patients and those with serious co-morbid conditions. Patients with extremes in muscle mass or diet. The data above are obtained from the National Kidney Disease Education Program (NKDEP) which additionally recommends that when the eGFR is used in patients with extremes of body mass index for purposes of drug dosing, the eGFR should be multiplied by the estimated BMI. CHEM PANEL Creatinine 1.03 mg/dL 0.50 - 08/17 [facility] Lvl 1.40 [facility] CHEM PANEL Sodium Lvl 139 meq/L 135 - 145 08/[address] CHEM PANEL Potassium Lvl 4.3 meq/L 3.5 - 5.1 08/[address] CHEM PANEL Chloride Lvl 103 meq/L 95 - 109 08/[address] CHEM PANEL CO2 29 meq/L 24 - 32 08/[address] CHEM PANEL Calcium Lvl 8.6 mg/dL 8.5 - 10.5 08/[address] CHEM PANEL BUN 17 mg/dL 7 - 22 08/[address] CHEM PANEL Glucose Lvl 226 mg/dL 70 - 99 08/[address] CHEM PANEL AGAP 11.3 meq/L 10.0 - 08/17 [facility] CHEM PANEL Phosphorus 4.2 mg/dL 2.5 - 4.5 08/17 [facility] CHEM PANEL Globulin 3.6 g/dL 2.7 - 4.2 08/17 [facility] CHEM PANEL AGAP 10.8 meq/L 10.0 - 08/17 [facility] CHEM PANEL B/C Ratio 17 6 - 25 08/17 [facility] CHEM PANEL A/G Ratio 0.8 0.7 - 1.6 08/17 [facility] CHEM PANEL eGFR 69 08/17 Result Comment: The eGFR is calculated using the CKD-EPI formula. In most young, healthy individuals the eGFR will be >90 mL/ min/1.73m2. The eGFR declines with age. An eGFR of 60-89 may be normal in [facility] mL/min/1. some populations, particularly the elderly, for whom the CKD-EPI formula has not been extensively validated. Use of the eGFR is not recommended in the following populations: [address] Individuals with unstable creatinine concentrations, including patients and those with serious co-morbid conditions. Patients with extremes in muscle mass or diet. The data above are obtained from the National Kidney Disease Education Program (NKDEP) which additionally recommends that when the eGFR is used in patients with extremes of body mass index for purposes of drug dosing, the eGFR should be multiplied by the estimated BMI. CHEM PANEL Creatinine 1.09 mg/dL 0.50 - 08/17 [facility] Lvl 1.40 [facility] CHEM PANEL Sodium Lvl 138 meq/L 135 - 145 08/[address] [place] [address] CHEM PANEL BUN 19 mg/dL 7 - 22 08/[address] CHEM PANEL Alk Phos 82 unit/L 39 - 136 08/[address] CHEM PANEL Bili Total 0.4 mg/dL 0.2 - 1.3 08/17 [facility] CHEM PANEL AST 16 unit/L 0 - 37 08/[address] CHEM PANEL Total Protein 6.5 g/dL 6.4 - 8.4 08/[address] CHEM PANEL Calcium Lvl 8.6 mg/dL 8.5 - 10.5 08/17 [facility] CHEM PANEL Potassium Lvl 4.8 meq/L 3.5 - 5.1 08/17 [facility] CHEM PANEL Chloride Lvl 104 meq/L 95 - 109 08/17 [facility] CHEM PANEL CO2 28 meq/L 24 - 32 08/17 [facility] CHEM PANEL Albumin Lvl 2.9 g/dL 3.5 - 5.0 08/17 [facility] CHEM PANEL ALT 12 unit/L 0 - 65 08/17 [facility] CHEM PANEL Glucose Lvl 220 mg/dL 70 - 99 08/17 [facility] CHEM PANEL Magnesium Lvl 1.9 mg/dL 1.8 - 2.4 08/17 [facility] HEMATOLOGY INR 1.18 0.85 - 08/17 1.17 [facility] HEMATOLOGY PT 15.3 s 12.0 - 08/17 14.7 [facility] HEMATOLOGY PTT 66.0 s 22.9 - 08/17 35.8 [facility] HEMATOLOGY Platelet 141 K/CMM 133 - 450 08/17 [facility] HEMATOLOGY MPV 8.5 fL 7.4 - 10.4 08/17 [facility] HEMATOLOGY RBC 4.14 M/CMM 4.70 - 08/17 6.10 [facility] HEMATOLOGY Hct 34.6 % 42.0 - 08/17 54.0 [facility] HEMATOLOGY WBC 6.9 K/CMM 3.7 - 10.4 08/17 [facility] HEMATOLOGY MCV 83.7 fL 80.0 - 08/17 94.0 [facility] HEMATOLOGY RDW 17.4 % 11.5 - 08/17 14.5 [facility] HEMATOLOGY MCHC 33.0 g/dL 32.0 - 08/17 36.0 [facility] HEMATOLOGY Hgb 11.4 g/dL 14.0 - 08/17 18.0 [facility] HEMATOLOGY MCH 27.7 pg 27.0 - 08/17 31.0 [facility] HEMATOLOGY Monocytes # 0.5 K/CMM 0.0 - 0.8 08/17 [facility] HEMATOLOGY Lymphocytes # 2.1 K/CMM 1.0 - 5.5 08/17 [facility] HEMATOLOGY Eosinophils # 0.3 K/CMM 0.0 - 0.5 08/17 [facility]2016 [facility] HEMATOLOGY Segs-Bands # 4.0 K/CMM 1.5 - 8.1 08/17 [facility]2016 [facility] HEMATOLOGY Monocytes 6.8 % 2.0 - 12.0 08/17 [facility]2016 [facility] HEMATOLOGY Basophils 0.4 % 0.0 - 1.0 08/17 2016 [facility] HEMATOLOGY Eosinophils 4.3 % 0.0 - 4.0 08/17 2016 [facility] HEMATOLOGY Lymphocytes 30.0 % 20.0 - 08/17 [place] 40.0 [facility] HEMATOLOGY Segs 58.5 % 45.0 - 08/17 [facility] 75.0 [facility] PARATHYROID Ca Ion WB 1.11 1. - 08/17 [facility] PROFILE mMol/L 1. [facility] PARATHYROID Ca Norm WB 1.11 . - 08/17 [facility] PROFILE mMol/L 1. [facility] Chest 1view Chest 1view EXAM: XR CHEST 1 VIEW 08/17 - [facility] DX - [facility] This report was dictated by a Nurses Assistant/Fellow. I have personally reviewed the images as Center well as the Resident's interpretation and agree with the findings. DATE: 08/17/2016 3:00 AM NECK PINNER Read by: Burke Berry (Fellow ) Resident: Burke Berry (Fellow) Dictated Date/time: 08/17/16 08:51 Electronically Signed by: Tamra Parkinson MD 08/17/16 09:07 FINAL REPORT INDICATION: Abnormal chest sounds COMPARISON: Previous Day FINDINGS: ET tube and NG tube been removed. Atrial appendage clip and aortic atherosclerotic changes remain. The cardiac silhouette is prominent, but stable. While evaluation is limited given semi-erect positioni ng, no distinct pneumothorax is identified. Minimal opacities are present the lung bases, most notably in the left retrocardiac region. IMPRESSION: 1. Removal of ET tube and NG tube. 2. Probable basilar atelectasis, asymmetric to the left. 3. Stable mild cardiomegaly. CHEM PANEL Phosphorus 4.1 mg/dL 2.5 - 4.5 08/16 [facility] CHEM PANEL Magnesium Lvl 1.8 mg/dL 1.8 - 2.4 08/16 [facility] HEMATOLOGY PTT 63.3 s 22.9 - 08/16 35. [facility] HEMATOLOGY INR 1.17 0.85 - 08/16 1. [facility] HEMATOLOGY PT 15.1 s 12.0 - 08/16 14. [facility] URINE CHEM U Magnesium null 08/16 Result Comment: [facility] result was 24.4 notified Roshan Looney 08/17/2016 21:27. URINE CHEM U Chloride 143 meq/L 08/16 [facility] URINE CHEM U Potassium 33.9 meq/L 08/16 [facility] URINE CHEM U Sodium 115 meq/L 08/16 [facility] HEMATOLOGY Segs 71.2 % 45.0 - 08/16 [facility] 75.0 [facility] HEMATOLOGY Lymphocytes 18.2 % 20.0 - 08/16 40.0 [facility] HEMATOLOGY Monocytes 6.8 % 2.0 - 12.0 08/16 [facility] HEMATOLOGY Eosinophils 3.3 % 0.0 - 4.0 08/16 [facility] HEMATOLOGY Basophils 0.5 % 0.0 - 1.0 08/16 [facility] HEMATOLOGY Segs-Bands # 6.2 K/CMM 1.5 - 8.1 08/16 [facility] HEMATOLOGY Monocytes # 0.6 K/CMM 0.0 - 0.8 08/16 [facility] HEMATOLOGY Lymphocytes # 1.6 K/CMM 1.0 - 5.5 08/16 [facility] HEMATOLOGY Eosinophils # 0.3 K/CMM 0.0 - 0.5 08/16 [facility] HEMATOLOGY PTT 65.2 s 22.9 - 08/16 35.8 [facility] HEMATOLOGY INR 1.19 0.85 - 08/16 [facility] 1. [facility] HEMATOLOGY PT 15.4 s 12.0 - 08/16 [facility] 14. [facility] HEMATOLOGY MPV 8.9 fL 7.4 - 10.4 08/16 [facility] HEMATOLOGY Platelet 150 K/CMM 133 - 450 08/16 [facility] HEMATOLOGY RDW 17.2 % 11.5 - 08/16 [place] 14.5 [facility] HEMATOLOGY MCHC 32.3 g/dL 32.0 - 08/16 [place] 36.0 [facility] HEMATOLOGY MCH 26.8 pg 27.0 - 08/16 [place] 31.0 [facility] HEMATOLOGY Hct 35.9 % 42.0 - 08/16 [place] 54.0 [facility] HEMATOLOGY Hgb 11.6 g/dL 14.0 - 08/16 [place] 18.0 [facility] HEMATOLOGY MCV 83.0 fL 80.0 - 08/16 [place] 94.0 [facility] HEMATOLOGY RBC 4.32 M/CMM 4.70 - 08/16 [place] 6.10 [facility] HEMATOLOGY WBC 8.7 K/CMM 3.7 - 10.4 08/16 [facility] CARDIAC Troponin-I 0.13 ng/mL 0.00 - 08/16 [facility] ENZYMES 0.40 [facility] CARDIAC Total CK 39 unit/L 12 - 191 08/16 [facility] ENZYMES [facility] CARDIAC Troponin-T 0.026 0.000 - 08/16 [facility] ENZYMES ng/mL 0.100 [facility] CHEM PANEL Lactic Acid 1.5 mMol/L 0.5 - 2.2 08/16 [facility] Lv [facility] MYOGLOBIN Myoglobin 54 ng/mL 25 - 72 08/16 [facility] CHEM PANEL Lactic Acid 2.2 mMol/L 0.5 - 2.2 08/16 [facility] BACTERIAL - MRSA by PCR Positive 08/16 Result [facility] Comment: Medical *ABN* "Significant Center Findings (08/16/16 1:06 AM) called to Kya Krishna on 08/16/2016 at 13:44 by MARIO.Read Back OK." BLOOD BANK Antibody Scrn Negative 08/16 [place] RESULTS [facility] (08/16/16 1:06 AM) [place] BLOOD BANK ABO/Rh A NEG 08/16 [facility] RESULTS [facility] CARDIAC Troponin-I 0.05 ng/mL 0.00 - 08/16 [facility] ENZYMES 0.40 [facility] CARDIAC Total CK 40 unit/L 12 - 191 08/16 [facility] ENZYMES [facility] CARDIAC Troponin-T null 0.000 - 08/16 [facility] ENZYMES 0.100 [facility] CHEM PANEL A/G Ratio 1.0 0.7 - 1.6 08/16 [facility] CHEM PANEL Globulin 3.2 g/dL 2.7 - 4.2 08/16 [facility]2016 [facility] CHEM PANEL B/C Ratio 115 6 - 25 08/16 [facility]2016 [facility] CHEM PANEL Total Protein 6.4 g/dL 6.4 - 8.4 08/16 [facility] CHEM PANEL AST 6 unit/L 0 - 37 08/[address] CHEM PANEL Bili Total 0.4 mg/dL 0.2 - 1.3 08/16 [facility]2016 [facility] CHEM PANEL Albumin Lvl 3.2 g/dL 3.5 - 5.0 08/[address] CHEM PANEL Alk Phos 79 unit/L 39 - 136 08/[address] CHEM PANEL ALT 20 unit/L 0 - 65 08/16 [facility] [address] [place] [address] LIPIDS Chol 69 mg/dL <=199 08/16 [facility] mg/dL [facility] LIPIDS Trig 50 mg/dL <=149 08/16 [facility] mg/dL [facility] LIPIDS HDL 33 mg/dL >=61 mg/dL 08/16 [facility] LIPIDS LDL 26 mg/dL <=99 mg/dL 08/16 [facility] (Calculated) [facility] LIPIDS CHD Risk 2.09 4.00 - 08/16 [facility] 7.30 [facility] LIPIDS VLDL 10 08/16 [facility] MYOGLOBIN Myoglobin 37 ng/mL 25 - 72 08/[address] PARATHYROID Ca Ion WB 1.33 1.05 - 08/16 [facility] PROFILE mMol/L 1. [facility] PARATHYROID Ca Norm WB 1.25 1.05 - 08/16 [facility] PROFILE mMol/L 1. [facility] SPECIAL Hgb A1C 6.5 % <=5.6 % 08/16 [facility] CHEMISTRY [facility] URINE AND UA <=1.0 0.1 - 1.0 08/16 [facility] STOOL Urobilinogen mg/dL [facility] URINE AND UA Turbidity Clear Clear 08/16 [facility] (08/16/16 1:06 AM) [place] URINE AND UA Spec Grav 1.016 <=1.030 08/[address] URINE AND UA Protein Negative Negative 08/16 [facility] mg/dL mg/dL /2016 [facility] URINE AND UA pH 5.5 5.0 - 8.0 08/[address] URINE AND UA Color Yellow Yellow 08/16 [facility] *NA* [place] (08/16/16 1:06 AM) URINE AND UA CaOx Kelli Occasional None Seen 08/16 [facility] STOOL /HPF /HPF /2016 [facility] URINE AND UA WBC 2 /HPF 0 - 5 08/16 [facility]2016 [facility] URINE AND UA Mucus Few /LPF None Seen 08/16 [facility] /LPF /2016 [facility] URINE AND UA Leuk Est Negative Negative 08/16 [facility]2016 [facility] (08/16/16 1:06 AM) [place] URINE AND UA RBC 1 /HPF 0 - 2 08/16 [facility]2016 [facility] URINE AND UA Blood Negative Negative 08/16 [facility] (08/16/16 1:06 AM) [place] URINE AND UA Glucose 50 mg/dL Negative 08/16 [facility] mg/dL /2016 [facility] URINE AND UA Bili Negative Negative 08/16 [facility] *NA* [place] (08/16/16 1:06 AM) URINE AND UA Ketones Negative Negative 08/16 [facility] mg/dL mg/dL [facility] URINE AND UA Nitrite Negative Negative 08/16 [facility] (08/16/16 1:06 AM) [place] URINE AND UA Sq Epi None Seen 08/[address] URINE AND UA Hyal Cast 4 /LPF 0 - 2 08/[address] Abdomen 1 v Abdomen 1 v EXAM: XR ABDOMEN 1 VIEW 08/16 - [facility] for for Placement /2016 - [facility]acement DX [facility] DX DATE: 08/16/2016 2:18 AM NECK PINNER Read by: Alberto Mak MD Dictated Date/time: 08/16/16 08:45 Electronically Signed by: Alberto Mak 08/16/16 08:47 FINAL REPORT INDICATION: Tube Placement OG ADDITIONAL INFORMATION: None. COMPARISON: None. TECHNIQUE: AP view of the upper abdomen. FINDINGS: NG tube with tip slightly below the GE junction, and side-port at the GE junction. Recommend advancing. Multiple surgical clips noted left upper quadrant. Left basilar subsegmental atelectasis and bilat eral CPA blunting is noted. Correlate with chest x-ray findings. IMPRESSION: 1. Recommend advancing NG tube, now with the tip slightly below GE junction. Chest 1view Chest 1view 08/16 - [facility] - [facility] EXAM: XR CHEST 1 VIEW Read by: Rey Craig MD Dictated Date/time: 08/16/16 09:28 Electronically Signed by: Rey Craig MD 08/16/16 09:32 FINAL REPORT DATE: 08/16/2016 12:55 AM NECK PINNER INDICATION: Abnormal chest sounds COMPARISON: None. TECHNIQUE: AP chest FINDINGS: Lines, tubes and hardware: Endotracheal tube with tip terminates approximately 3 cm above the lopez. NG tube with sidehole seen below the GE junction. Lungs and pleura: Diminished lung volumes bilaterally again noted. Prominent lung reticulations suggestive of pulmonary edema. Small bilateral pleural effusions with bibasilar atelectatic changes. Scattered atelectatic changes bilaterally. Heart and mediastinum: Cardiomediastinal silhouette is enlarged. Posterior dimension clip is noted. Aortic atherosclerotic disease. Bones: No acute bony abnormality is identified. IMPRESSION: 1. Lines and tubes as described above. 2. Diminished lung volumes bilaterally with scattered few atelectatic changes. 3. Prominent lung reticulations suggestive of pulmonary edema. 4. Small left pleural effusion with left basilar atelectatic changes. 5. Mild cardiomegaly. Left atrial appendage clip noted. Vital Signs Vital Sign Value Date Comments Source Respitory Rate 20 08/18/2016 [facility] Systolic (mm Hg) 107 08/18/2016 [facility] Diastolic (mm Hg) 65 08/18/2016 [facility] Systolic (mm Hg) 93 08/18/2016 [facility] Diastolic (mm Hg) 55 08/18/2016 [facility] Respitory Rate 19 08/18/2016 [facility] Systolic (mm Hg) 109 08/18/2016 [facility] Diastolic (mm Hg) 55 08/18/2016 [facility] Respitory Rate 18 08/18/2016 [facility] Temperature Oral (F) 98.3 F 08/18/2016 [facility] Temperature Oral (F) 97.9 F 08/18/2016 [facility] Temperature Oral (F) 96.9 F 08/18/2016 [facility] Height 172.72 cm 08/16/2016 [facility] Height 172.72 cm 08/16/2016 [facility] Height 172.72 cm 08/16/2016 [facility] Weight 82 08/16/2016 [facility] BMI Calculated 27.49 08/16/2016 [facility] Encounters Location Location Encounter Encounter Reason Attending ADM DC Status Source Details Type Number For Provider Date Date Visit [facility] [id number] [place] 08/16 08/18 [facility] Joe Harvey /2016 [facility] Procedures Procedure Code Date Perfomer Comments Source Pancreas [id number] [facility] excision<sup>1</ pancreas was Medical sup> removed due to Center excess ETOH.
--- OUTSIDE RECORDS SUMMARY | 2018-07-16 12:02 | XMS REPORT | Summary of Care ---
:1945 Author Organization [facility] Address [address] [place] [id number] Encounter HQ Bettyer_caleb(FIN) [id number] Date(s): 08/16/16 - 08/18/[address] Professional Services provided by [facility] [place] [address]- Discharge Disposition: Home or Self Care Attending Physician: Viktor Abernathy MD Admitting Physician: Viktor Abernathy MD Referring Physician: Leno Bethea MD Vital Signs Most recent to oldest 1 2 3 [Reference Range]: Height 172.72 cm 172.72 cm 172.72 cm (08/16/16 10:29 AM) (08/16/16 8:43 AM) (08/16/16 2:55 AM) Current Weight 80.028 kg 82.273 kg (08/18/16 5:27 AM) (08/17/16 6:12 AM) Temperature Oral [96.4-99.1 98.3 DegF 97.9 DegF 96.9 DegF DegF] (08/18/16 11:51 AM) (08/18/16 8:26 AM) (08/18/16 5:27 AM) Blood Pressure [90-140/60-90 107/65 mmHg 93/55 mmHg 109/55 mmHg mmHg] (08/18/16 3:09 PM) (08/18/16 2:00 PM) (08/18/16 1:00 PM) Respiratory Rate [14-20 BRMIN] 20 BRMIN 19 BRMIN 18 BRMIN (08/18/16 3:09 PM) (08/18/16 2:00 PM) (08/18/16 1:00 PM) Weight 82 kg (08/16/16 1:02 AM) Body Mass Index 27.49 m2 (08/16/16 1:02 AM) Problem List Condition Effective Dates Status Health Status Informant Atrial fibrillation(Confirmed) Active CVA (cerebral vascular Resolved accident)(Confirmed)1 Diabetes mellitus(Confirmed)2 Active Pancreas disorder(Confirmed)3 Resolved MRSA(Confirmed)4, 5 08/16/16 Active 1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 He is using1 stick for [id number] part of his pancreas removed due to excess ETOH.4Nares, 08/16/[id number] added by Discern Expert. Allergies, Adverse Reactions, Alerts Substance Reaction Severity Status NKDA Active Medications acetaminophen 650 mg, 20.3 mL, Route: PO, Drug form: LIQ, ONCE, Dosing Weight 82, kg, Priority : STAT, Start date: 08/17/16 8:55:00 LOCKSTITCH MACHINE OPERATOR, Stop date: 08/17/16 8:55:00 LOCKSTITCH MACHINE OPERATOR Notes: Max [id number]=0245su/day (4 gm/day). (Same as: Tylenol) Start Date: 08/17/16 Stop Date: 08/17/16 Status: Completedatorvastatin 40 mg, 1 tab, Route: PO, Drug form: TAB, Bedtime, Dosing Weight 82, kg, Start date: 08/16/16 21:00:00 LOCKSTITCH MACHINE OPERATOR, Duration: 30 day, Stop date: 09/14/16 21:00:00 LOCKSTITCH MACHINE OPERATOR Notes: (Same as: Lipitor) Start Date: 08/16/16 Stop Date: 08/18/16 Status: Discontinuedatorvastatin 40 mg oral tablet 40 mg=1 tab, PO, Bedtime, # 30 tab, 0 Refill(s) Start Date: 08/18/16 Stop Date: 08/18/16 Status: Discontinuedatorvastatin 40 mg oral tablet 40 mg=1 tab, PO, Bedtime, # 30 tab, 0 Refill(s) Start Date: 08/18/16 Stop Date: 09/17/16 Status: Orderedatorvastatin 40 mg oral tablet 40 mg=1 tab, PO, Bedtime, # 30 tab, 0 Refill(s) Start Date: 08/18/16 Stop Date: 08/18/16 Status: Discontinuedbacitracin-polymyxin B topical 1 appl, Route: TOP, Daily, Drug form: OINT, Start date: 08/19/16 9:00:00 LOCKSTITCH MACHINE OPERATOR, Duration: 30 day, Stopdate: 09/17/16 9:00:00 LOCKSTITCH MACHINE OPERATOR Notes: (Same As: Polysporin) Start Date: 08/19/16 Stop Date: 08/18/16 Status: Canceledbenzocaine-menthol topical 1 lozenge, Route: MUCOUS MEM, Drug Form: DANILO, Q2H, PRN Cough, Start date: 19:29:00 LOCKSTITCH MACHINE OPERATOR, Duration: 30 day, Stop date: 09/16/16 19:28:00 LOCKSTITCH MACHINE OPERATOR Notes: Cepacol lozengesDispense 1 box=16 lozenges (Same As: Cepacol Lozenges) Start Date: 08/17/16 Stop Date: 08/18/16 Status: DiscontinuedDextrose 50% Syringe 12.5 gm, 25 mL, Route: IVP, Drug Form: INJ, Dosing Weight 82, kg, PRN, PRN Blood Glucose Results, Start date: 08/16/16 4:31:00 LOCKSTITCH MACHINE OPERATOR, Duration: 30 day, Stop date: 09/15/16 4:30:00 LOCKSTITCH MACHINE OPERATOR Start Date: 08/16/16 Stop Date: 08/18/16 Status: DiscontinuedDextrose 50% Syringe 25 gm, 50 mL, Route: IVP, Drug Form: INJ, Dosing Weight 82, kg, PRN, PRN Blood Glucose Results, Start date: 08/16/16 4:31:00 LOCKSTITCH MACHINE OPERATOR, Duration: 30 day, Stop date: 09/15/16 4:30:00 LOCKSTITCH MACHINE OPERATOR Start Date: 08/16/16 Stop Date: 08/18/16 Status: Discontinueddocusate-senna 50 mg-8.6 mg oral tablet 1 tab, Route: PO, Drug Form: TAB, Dosing Weight 82, kg, BID, Start date: 9:00:00 LOCKSTITCH MACHINE OPERATOR, Duration: 30 day, Stop date: 09/14/16 17:00:00 LOCKSTITCH MACHINE OPERATOR Notes: (Same as Senokot-S) Equiv. to Nicolasa-Colace. Start Date: 08/16/16 Stop Date: 08/18/16 Status: DiscontinuedDULoxetine 60 mg oral delayed release capsule 60 mg=1 cap, PO, Daily, # 30 cap, 0 Refill(s) Start Date: 08/18/16 Stop Date: 08/18/16 Status: DiscontinuedDULoxetine 60 mg oral delayed release capsule 60 mg=1 cap, PO, Daily, # 30 cap, 0 Refill(s) Start Date: 08/18/16 Stop Date: 09/17/16 Status: OrderedDULoxetine 60 mg oral delayed release capsule 60 mg=1 cap, PO, Daily, # 30 cap, 0 Refill(s) Start Date: 08/18/16 Stop Date: 08/18/16 Status: DiscontinuedDULoxetine 60 mg oral delayed release capsule 60 mg=1 cap, PO, Daily, # 30 cap, 0 Refill(s) Start Date: 08/18/16 Stop Date: 08/18/16 Status: DiscontinuedDULoxetine 60 mg oral delayed release capsule 60 mg=1 cap, PO, Daily, # 30 cap, 0 Refill(s) Start Date: 08/18/16 Stop Date: 08/18/16 Status: DiscontinuedDuoNeb inhalation solution 3 ml, Route: NEB, Drug Form: SOLN, Dosing Weight 82, kg, PRN, PRN Respiratory Protocol, Start date: 08/17/16 18:46:00 LOCKSTITCH MACHINE OPERATOR, Duration: 30 day, Stop date: 18:45:00 LOCKSTITCH MACHINE OPERATOR Notes: (Same as: Duoneb) Start Date: 08/17/16 Stop Date: 08/18/16 Status: DiscontinuedEliquis 5 mg, 1 tab, Route: PO, Drug form: TAB, Q12H, Dosing Weight 82, kg, Start date: 08/17/16 21:00:00 LOCKSTITCH MACHINE OPERATOR, Duration: 30 day, Stop date: 09/16/16 9:00:00 LOCKSTITCH MACHINE OPERATOR Notes: Same as: Eliquis Start Date: 08/17/16 Stop Date: 08/18/16 Status: DiscontinuedEliquis 5 mg oral tablet 5 mg=1 tab, PO, BID, # 60 tab, 0 Refill(s) Start Date: 08/18/16 Stop Date: 09/17/16 Status: OrderedEliquis 5 mg oral tablet 5 mg=1 tab, PO, BID, # 60 tab, 0 Refill(s) Start Date: 08/18/16 Stop Date: 08/18/16 Status: DiscontinuedEliquis 5 mg oral tablet 5 mg=1 tab, PO, BID, # 60 tab, 0 Refill(s) Start Date: 08/18/16 Stop Date: 08/18/16 Status: DiscontinuedEliquis 5 mg oral tablet 5 mg=1 tab, PO, BID, # 60 tab, 0 Refill(s) Start Date: 08/18/16 Stop Date: 08/18/16 Status: DiscontinuedEliquis 5 mg oral tablet 5 mg=1 tab, PO, BID, 0 Refill(s) Start Date: 08/18/16 Stop Date: 08/18/16 Status: DiscontinuedfentaNYL 1000microgram/20ml drip (pyxis) 1,000 microgram 1,000 microgram, 20 mL, Rate: Titrate, Start Dose: 50 microgram/hr, Titration: 25 microgram/hour every 15 minutes, Goal(s): RASS -2, Max Dose: 300 microgram/hr , Route: IV, Dosing Weight 82 kg, Total Volume: 20, Start date: 08/16/16 1:48: 00 LOCKSTITCH MACHINE OPERATOR, Durati... Start Date: 08/16/16 Stop Date: 08/16/16 Status: Discontinuedfinasteride 5 mg oral tablet 5 mg=1 tab, PO, Daily, # 30 tab, 0 Refill(s) Start Date: 08/18/16 Stop Date: 08/18/16 Status: Discontinuedfinasteride 5 mg oral tablet 5 mg=1 tab, PO, Daily, # 30 tab, 0 Refill(s) Start Date: 08/18/16 Stop Date: 09/17/16 Status: Orderedfinasteride 5 mg oral tablet 5 mg=1 tab, PO, Daily, # 30 tab, 0 Refill(s) Start Date: 08/18/16 Stop Date: 08/18/16 Status: Discontinuedfinasteride 5 mg oral tablet 5 mg=1 tab, PO, Daily, # 30 tab, 0 Refill(s) Start Date: 08/18/16 Stop Date: 08/18/16 Status: Discontinuedfinasteride 5 mg oral tablet 5 mg=1 tab, PO, Daily, # 30 tab, 0 Refill(s) Start Date: 08/18/16 Stop Date: 08/18/16 Status: Discontinuedfurosemide 20 mg oral tablet 20 mg=1 tab, PO, Daily, # 30 tab, 0 Refill(s) Start Date: 08/18/16 Stop Date: 08/18/16 Status: Discontinuedfurosemide 20 mg oral tablet 20 mg=1 tab, PO, Daily, # 30 tab, 0 Refill(s) Start Date: 08/18/16 Stop Date: 08/18/16 Status: Discontinuedfurosemide 20 mg oral tablet 20 mg=1 tab, PO, Daily, # 30 tab, 0 Refill(s) Start Date: 08/18/16 Stop Date: 09/17/16 Status: Orderedfurosemide 20 mg oral tablet 20 mg=1 tab, PO, Daily, # 30 tab, 0 Refill(s) Start Date: 08/18/16 Stop Date: 08/18/16 Status: Discontinuedfurosemide 20 mg oral tablet 20 mg=1 tab, PO, Daily, # 30 tab, 0 Refill(s) Start Date: 08/18/16 Stop Date: 08/18/16 Status: Discontinuedglucagon 1 mg, Route: IM, Drug form: PDR/INJ, PRN, Dosing Weight 82, kg, PRN Blood Glucose Results, Start date: 08/16/16 4:31:00 LOCKSTITCH MACHINE OPERATOR, Duration: 30 day, Stop date: 09/15/16 4:30:00 LOCKSTITCH MACHINE OPERATOR Start Date: 08/16/16 Stop Date: 08/18/16 Status: Discontinuedheparin additive 25,000 unit [14 unit/kg/hr] + Premix Diluent Dextrose 5% 500 mL 500 mL, Rate: 20.68 ml/hr, Infuse over: 24.2 hr, Route: IV, Dosing Weight 73.84 kg, Total Volume: 500 mL, Start date: 08/16/16 4:31:00 LOCKSTITCH MACHINE OPERATOR, Duration: 30 day, Stop date: 09/15/16 4:30:00 LOCKSTITCH MACHINE OPERATOR Start Date: 08/16/16 Stop Date: 08/17/16 Status: DiscontinuedhydrOXYzine pamoate 25 mg=1 cap, PO, Q6H, PRN nausea, # 20 cap, 0 Refill(s) Start Date: 08/18/16 Stop Date: 08/18/16 Status: Discontinuedinsulin aspart 2 unit, 0.02 mL, Route: SUB-Q, Drug form: SOLN, Sliding Scale, Dosing Weight 82 , kg, PRN Blood Glucose Results, Start date: 08/16/16 4:31:00 LOCKSTITCH MACHINE OPERATOR, Duration: 30 day, Stop date: 09/15/16 4:30:00 LOCKSTITCH MACHINE OPERATOR Notes: Roll in palms of hands gently; Do not shake vigorously. (Same as: NovoLOG)"single patient use only"WASTE: F/P - Black; E - Municipal Trash Bin Stable for 28 days at room temperature.Expires in days from Date Start Date: 08/16/16 Stop Date: 08/18/16 Status: Discontinuedinsulin aspart 4 unit, 0.04 mL, Route: SUB-Q, Drug form: SOLN, Sliding Scale, Dosing Weight 82 , kg, PRN Blood Glucose Results, Start date: 08/16/16 4:31:00 LOCKSTITCH MACHINE OPERATOR, Duration: 30 day, Stop date: 09/15/16 4:30:00 LOCKSTITCH MACHINE OPERATOR Notes: Roll in palms of hands gently; Do not shake vigorously. (Same as: NovoLOG)"single patient use only"WASTE: F/P - Black; E - Municipal Trash Bin Stable for 28 days at room temperature.Expires in days from Date Start Date: 08/16/16 Stop Date: 08/18/16 Status: Discontinuedinsulin aspart 6 unit, 0.06 mL, Route: SUB-Q, Drug form: SOLN, Sliding Scale, Dosing Weight 82 , kg, PRN Blood Glucose Results, Start date: 08/16/16 4:31:00 LOCKSTITCH MACHINE OPERATOR, Duration: 30 day, Stop date: 09/15/16 4:30:00 LOCKSTITCH MACHINE OPERATOR Notes: Roll in palms of hands gently; Do not shake vigorously. (Same as: NovoLOG)"single patient use only"WASTE: F/P - Black; E - Municipal Trash Bin Stable for 28 days at room temperature.Expires in days from Date Start Date: 08/16/16 Stop Date: 08/18/16 Status: Discontinuedinsulin aspart 8 unit, 0.08 mL, Route: SUB-Q, Drug form: SOLN, Sliding Scale, Dosing Weight 82 , kg, PRN Blood Glucose Results, Start date: 08/16/16 4:31:00 LOCKSTITCH MACHINE OPERATOR, Duration: 30 day, Stop date: 09/15/16 4:30:00 LOCKSTITCH MACHINE OPERATOR Notes: Roll in palms of hands gently; Do not shake vigorously. (Same as: NovoLOG)"single patient use only"WASTE: F/P - Black; E - Municipal Trash Bin Stable for 28 days at room temperature.Expires in days from Date Start Date: 08/16/16 Stop Date: 08/18/16 Status: Discontinuedinsulin aspart 10 unit, 0.1 mL, Route: SUB-Q, Drug form: SOLN, Sliding Scale, Dosing Weight 82 , kg, PRN Blood Glucose Results, Start date: 08/16/16 4:31:00 LOCKSTITCH MACHINE OPERATOR, Duration: 30 day, Stop date: 09/15/16 4:30:00 LOCKSTITCH MACHINE OPERATOR Notes: Roll in palms of hands gently; Do not shake vigorously. (Same as: NovoLOG)"single patient use only"WASTE: F/P - Black; E - Municipal Trash Bin Stable for 28 days at room temperature.Expires in days from Date Start Date: 08/16/16 Stop Date: 08/18/16 Status: Discontinuedinsulin detemir 10 unit, 0.1 mL, Route: SUB-Q, Drug form: SOLN, Daily, Dosing Weight 82, kg, Start date: 08/16/16 9:00:00 LOCKSTITCH MACHINE OPERATOR, Duration: 30 day, Stop date: 09/14/16 9:00:00 LOCKSTITCH MACHINE OPERATOR Notes: Same as Shannon not hold insulin without contacting prescriberWASTE: F/ P - Black; E - Municipal Trash Bin "single patient use only" Start Date: 08/16/16 Stop Date: 08/18/16 Status: Discontinuedinsulin glargine 100 units/mL subcutaneous solution 5 unit, Route: SUB-Q, Daily, Dosing Weight 82, kg, Start date: 08/16/16 9:00:00 LOCKSTITCH MACHINE OPERATOR, Duration: 30 day, Stop date: 09/14/16 9:00:00 LOCKSTITCH MACHINE OPERATOR Start Date: 08/16/16 Stop Date: 08/16/16 Status: Canceledmagnesium oxide 400 mg, 1 tab, Route: PO, Drug form: TAB, ONCE, Dosing Weight 82, kg, Start date : 08/17/16 5:32:00 LOCKSTITCH MACHINE OPERATOR, Stop date: 08/17/16 5:32:00 LOCKSTITCH MACHINE OPERATOR Notes: (Same as: Mag-Ox 400)Magnesium oxide [id number] elemental magnesiumDose= ____mg magnesium oxide (___mg elemental magnesium) Start Date: 08/17/16 Stop Date: 08/17/16 Status: Completedmagnesium oxide 800 mg, 2 tab, Route: PO, Drug form: TAB, ONCE, Dosing Weight 82, kg, Start date : 08/18/16 8:49:00 LOCKSTITCH MACHINE OPERATOR, Stop date: 08/18/16 8:49:00 LOCKSTITCH MACHINE OPERATOR Notes: (Same as: Mag-Ox 400)Magnesium oxide [id number] elemental magnesiumDose= ____mg magnesium oxide (___mg elemental magnesium) Start Date: 08/18/16 Stop Date: 08/18/16 Status: Completedmagnesium sulfate 2 gm in Water 50 ml 1 gm, 100 mL, Route: IV, Drug form: INJ, ONCE, Dosing Weight 82, kg, Start date : 08/16/16 3:19:00 LOCKSTITCH MACHINE OPERATOR, Stop date: 08/16/16 3:19:00 LOCKSTITCH MACHINE OPERATOR Notes: WASTE: F/P - Sink; E - Municipal Trash Bin Start Date: 08/16/16 Stop Date: 08/16/16 Status: Completedmagnesium sulfate 2 gm in Water 50 ml 2 gm, Route: IVPB, Drug form: INJ, ONCE, Dosing Weight 82, kg, Start date: 08/16 3:18:00 LOCKSTITCH MACHINE OPERATOR, Duration: 2 hr, Stop date: 08/16/16 3:18:00 LOCKSTITCH MACHINE OPERATOR Start Date: 08/16/16 Stop Date: 08/16/16 Status: CompletedmetFORMIN 500 mg oral tablet 500 mg=1 tab, PO, BID-Meals, # 180 tab, 0 Refill(s) Start Date: 08/18/16 Stop Date: 08/18/16 Status: DiscontinuedmetFORMIN 500 mg oral tablet 500 mg=1 tab, PO, BID-Meals, # 180 tab, 0 Refill(s) Start Date: 08/18/16 Stop Date: 11/16/16 Status: OrderedmetFORMIN 500 mg oral tablet 500 mg=1 tab, PO, BID-Meals, # 180 tab, 0 Refill(s) Start Date: 08/18/16 Stop Date: 08/18/16 Status: DiscontinuedmetFORMIN 500 mg oral tablet 500 mg=1 tab, PO, BID-Meals, # 180 tab, 0 Refill(s) Start Date: 08/18/16 Stop Date: 08/18/16 Status: DiscontinuedmetFORMIN 500 mg oral tablet 500 mg=1 tab, PO, BID-Meals, # 30 tab, 0 Refill(s) Start Date: 08/18/16 Stop Date: 08/18/16 Status: Discontinuedmetoprolol 5 mg/5 ml INJ 5 mg, 5 mL, Route: IV, Drug form: INJ, ONCE, Dosing Weight 82, kg, Start date: 08/18/16 4:35:00 LOCKSTITCH MACHINE OPERATOR,Stop date: 08/18/16 4:35:00 LOCKSTITCH MACHINE OPERATOR Notes: (Same as: Lopressor)Push over 2 minutes Start Date: 08/18/16 Stop Date: 08/18/16 Status: Completedmetoprolol 5 mg/5 ml INJ 5 mg, 5 mL, Route: IV, Drug form: INJ, ONCE, Dosing Weight 82, kg, Priority: STAT, Start date: 08/17/16 9:58:00 LOCKSTITCH MACHINE OPERATOR, Stop date: 08/17/16 9:58:00 LOCKSTITCH MACHINE OPERATOR Notes: (Same as: Lopressor)Push over 2 minutes Start Date: 08/17/16 Stop Date: 08/17/16 Status: Completedmetoprolol tartrate 12.5 mg, 1 tab, Route: PO, Drug form: TAB, Q8H, Dosing Weight 82, kg, Start date : 08/17/16 16:00:00 LOCKSTITCH MACHINE OPERATOR, Duration: 30 day, Stop date: 09/16/16 8:00:00 LOCKSTITCH MACHINE OPERATOR Notes: (Same as: Lopressor) 12.5mg=1/4 X 50 mg tab. Start Date: 08/17/16 Stop Date: 08/18/16 Status: Discontinuedmetoprolol tartrate 25 mg oral tablet 25 mg=1 tab, PO, BID, # 60 tab, 0 Refill(s) Start Date: 08/18/16 Stop Date: 08/18/16 Status: Discontinuedmetoprolol tartrate 25 mg oral tablet 25 mg=1 tab, PO, BID, # 60 tab, 0 Refill(s) Start Date: 08/18/16 Stop Date: 09/17/16 Status: Orderedmetoprolol tartrate 25 mg oral tablet 25 mg=1 tab, PO, BID, # 180 tab, 0 Refill(s) Start Date: 08/18/16 Stop Date: 08/18/16 Status: Discontinuedmetoprolol tartrate 25 mg oral tablet 25 mg=1 tab, PO, BID, # 60 tab, 0 Refill(s) Start Date: 08/18/16 Stop Date: 08/18/16 Status: DiscontinuedNeosporin 1 appl, Route: TOP, Daily, Drug form: OINT, Start date: 08/18/16 15:07:00 LOCKSTITCH MACHINE OPERATOR, Duration: 30 day, Stop date: 09/17/16 9:00:00 LOCKSTITCH MACHINE OPERATOR Start Date: 08/18/16 Stop Date: 08/18/16 Status: Discontinuednorepinephrine 4 mg/4 ml inj 8 mg + sodium chloride 0.9% INJ 242 mL 8 mg, 8 mL, Rate: Titrate, Start Dose: 0.1 microgram/kg/min, Titration: 0.05 microgram/kg/min every 2 - 5 minutes, Goal(s): MAP >=65 mmHg, Max Dose: 1 microgram/kg/min, Route: IV, Dosing Weight 82 kg, Total Volume: 250, Start date : 08/16/16 2:34:00 C... Notes: Not for direct administration - DILUTE. Protect from light. (Same as: Levophed). Administer byeither central venous catheter or peripherally-inserted central catheter (PICC) line. Start Date: 08/16/16 Stop Date: 08/17/16 Status: DiscontinuedNS (Bolus) IV 250 mL, 250 ml/hr, Infuse Over: 1 hr, Route: IV, 250, Drug form: INJ, ONCE, Priority: STAT, Dosing Weight 82 kg, Start date: 08/18/16 8:56:00 LOCKSTITCH MACHINE OPERATOR, Duration : 1 doses or times, Stop date: 08/18/16 8:56:00 LOCKSTITCH MACHINE OPERATOR Start Date: 08/18/16 Stop Date: 08/18/16 Status: Completedomeprazole PO, Daily, 0 Refill(s) Start Date: 08/18/16 Stop Date: 08/18/16 Status: Discontinuedomeprazole 20 mg oral enteric coated tablet 20 mg=1 tab, PO, BID, # 30 tab, 0 Refill(s) Start Date: 08/18/16 Stop Date: 08/18/16 Status: Discontinuedomeprazole 40 mg oral delayed release capsule 40 mg=1 cap, PO, Daily, # 30 cap, 0 Refill(s) Start Date: 08/18/16 Status: Orderedomeprazole 40 mg oral delayed release capsule 40 mg=1 cap, PO, Daily, # 30 cap, 0 Refill(s) Start Date: 08/18/16 Stop Date: 08/18/16 Status: Discontinuedomeprazole 40 mg oral delayed release capsule 40 mg=1 cap, PO, Daily, # 30 cap, 0 Refill(s) Start Date: 08/18/16 Stop Date: 08/18/16 Status: Discontinuedomeprazole 40 mg oral delayed release capsule 40 mg=1 cap, PO, Daily, # 30 cap, 0 Refill(s) Start Date: 08/18/16 Stop Date: 08/18/16 Status: Discontinuedoxybutynin 5 mg oral tablet 5 mg=1 tab, PO, TID, PRN Other-See Comments, # 30 tab, 0 Refill(s) Start Date: 08/18/16 Stop Date: 08/18/16 Status: DiscontinuedProtonix 40 mg, 1 tab, Route: PO, Drug form: ECTAB, Daily, Dosing Weight 82, kg, Start date: 08/16/16 9:00:00CST, Duration: 30 day, Stop date: 09/14/16 9:00:00 LOCKSTITCH MACHINE OPERATOR Notes: Tablet should not be chewed or crushed.(Same as: Protonix) Start Date: 08/16/16 Stop Date: 08/16/16 Status: Discontinuedranitidine 150 mg oral tablet 150 mg=1 tab, PO, BID, # 60 tab, 0 Refill(s) Start Date: 08/18/16 Stop Date: 09/17/16 Status: Orderedranitidine 150 mg oral tablet 150 mg=1 tab, PO, BID, # 60 tab, 0 Refill(s) Start Date: 08/18/16 Stop Date: 08/18/16 Status: Discontinuedranitidine 150 mg oral tablet 150 mg=1 tab, PO, BID, # 60 tab, 0 Refill(s) Start Date: 08/18/16 Stop Date: 08/18/16 Status: Discontinuedranitidine 150 mg oral tablet 150 mg=1 tab, PO, BID, # 60 tab, 0 Refill(s) Start Date: 08/18/16 Stop Date: 08/18/16 Status: Discontinuedranitidine 150 mg oral tablet 150 mg=1 tab, PO, BID, # 60 tab, 0 Refill(s) Start Date: 08/18/16 Stop Date: 08/18/16 Status: DiscontinuedRobitussin CoughGels 30 mg, Route: PO, Q6H, Dosing Weight 82, kg, Start date: 08/18/16 0:00:00 LOCKSTITCH MACHINE OPERATOR, Duration: 30 day, Stop date: 09/16/16 18:00:00 LOCKSTITCH MACHINE OPERATOR Start Date: 08/18/16 Stop Date: 08/17/16 Status: Discontinuedsimvastatin 10 mg oral tablet 10 mg=1 tab, PO, Bedtime, # 30 tab, 0 Refill(s) Start Date: 08/18/16 Stop Date: 08/18/16 Status: Discontinuedtamsulosin 0.4 mg oral capsule 0.4 mg=1 cap, PO, Daily, # 30 cap, 0 Refill(s) Start Date: 08/18/16 Stop Date: 09/17/16 Status: Orderedtamsulosin 0.4 mg oral capsule 0.4 mg=1 cap, PO, Daily, # 30 cap, 0 Refill(s) Start Date: 08/18/16 Stop Date: 08/18/16 Status: Discontinuedtamsulosin 0.4 mg oral capsule 0.4 mg=1 cap, PO, Daily, # 30 cap, 0 Refill(s) Start Date: 08/18/16 Stop Date: 08/18/16 Status: Discontinuedtamsulosin 0.4 mg oral capsule 0.4 mg=1 cap, PO, Daily, # 30 cap, 0 Refill(s) Start Date: 08/18/16 Stop Date: 08/18/16 Status: Discontinuedtamsulosin 0.4 mg oral capsule 0.4 mg=1 cap, PO, Daily, # 30 cap, 0 Refill(s) Start Date: 08/18/16 Stop Date: 08/18/16 Status: Discontinuedtramadol 100 mg, 2 tab, Route: PO, Drug form: TAB, ONCE, Dosing Weight 82, kg, Start date : 08/17/16 4:22:00 LOCKSTITCH MACHINE OPERATOR, Stop date: 08/17/16 4:22:00 LOCKSTITCH MACHINE OPERATOR Notes: Not to exceed 400mg/day. (Same As: Ultram) Start Date: 08/17/16 Stop Date: 08/17/16 Status: CompletedTylenol 650 mg, 2 tab, Route: PO, Drug form: TAB, Q6H, Dosing Weight 82, kg, PRN Pain Score 1-3, Start date:08/18/16 8:52:00 LOCKSTITCH MACHINE OPERATOR, Duration: 30 day, Stop date: 8:51:00 LOCKSTITCH MACHINE OPERATOR Notes: Do not exceed 4 gm/day. (Same as: Tylenol) Start Date: 08/18/16 Stop Date: 08/18/16 Status: DiscontinuedVersed 1 mg, 1 mL, Route: IVP, Drug form: INJ, PRN, Dosing Weight 82, kg, PRN Other - See Comment, Agitation, Start date: 08/16/16 1:49:00 LOCKSTITCH MACHINE OPERATOR, Duration: 30 day, Stop date: 09/15/16 1:48:00 LOCKSTITCH MACHINE OPERATOR Notes: (Same as: Versed) MEDICATION WASTE Product Size: 2 mgProduct Wasted: ___ mg Start Date: 08/16/16 Stop Date: 08/16/16 Status: Discontinued Results BLOOD BANK RESULTS Most recent to oldest [Reference Range]: 1 2 3 ABO/Rh A NEG *Unknown* (08/16/16 1:06 AM) Antibody Scrn Negative (08/16/16 1:06 AM) ELECTROLYTES Most recent to oldest 1 2 3 [Reference Range]: Sodium Lvl [135-145 mEq/L] 140 mEq/L 139 mEq/L 138 mEq/L (08/18/16 4:45 AM) (08/17/16 10:29 AM) (08/17/16 4:01 AM) Potassium Lvl [3.5-5.1 4.1 mEq/L 4.3 mEq/L 4.8 mEq/L mEq/L] (08/18/16 4:45 AM) (08/17/16 10:29 AM) (08/17/16 4:01 AM) Chloride Lvl [95-109 mEq/L] 102 mEq/L 103 mEq/L 104 mEq/L (08/18/16 4:45 AM) (08/17/16 10:29 AM) (08/17/16 4:01 AM) CO2 [24-32 mEq/L] 29 mEq/L 29 mEq/L 28 mEq/L (08/18/16 4:45 AM) (08/17/16 10:29 AM) (08/17/16 4:01 AM) AGAP [10.0-20.0 mEq/L] 13.1 mEq/L 11.3 mEq/L 10.8 mEq/L (08/18/16 4:45 AM) (08/17/16 10:29 AM) (08/17/16 4:01 AM) CHEM PANEL Most recent to oldest 1 2 3 [Reference Range]: Creatinine Lvl [0.50-1.40 0.92 mg/dL 1.03 mg/dL 1.09 mg/dL mg/dL] (08/18/16 4:45 AM) (08/17/16 10:29 AM) (08/17/16 4:01 AM) eGFR 85 mL/min/1.73m2 1 74 mL/min/1.73m2 2 69 mL/min/1.73m2 3 *NA* *NA* *NA* (08/18/16 4:45 AM) (08/17/16 10:29 AM) (08/17/16 4:01 AM) BUN [7-22 mg/dL] 14 mg/dL 17 mg/dL 19 mg/dL (08/18/16 4:45 AM) (08/17/16 10:29 AM) (08/17/16 4:01 AM) B/C Ratio [6-25] 17 115 (08/17/16 4:01 AM) *HI* (08/16/16 1:06 AM) Glucose Lvl [70-99 mg/dL] 166 mg/dL 226 mg/dL 220 mg/dL *HI* *HI* *HI* (08/18/16 4:45 AM) (08/17/16 10:29 AM) (08/17/16 4:01 AM) Total Protein [6.4-8.4 6.5 g/dL 6.4 g/dL g/dL] (08/17/16 4:01 AM) (08/16/16 1:06 AM) Albumin Lvl [3.5-5.0 g/dL] 2.9 g/dL 3.2 g/dL *LOW* *LOW* (08/17/16 4:01 AM) (08/16/16 1:06 AM) Globulin [2.7-4.2 g/dL] 3.6 g/dL 3.2 g/dL (08/17/16 4:01 AM) (08/16/16 1:06 AM) A/G Ratio [0.7-1.6] 0.8 1.0 (08/17/16 4:01 AM) (08/16/16 1:06 AM) Calcium Lvl [8.5-10.5 9.2 mg/dL 8.6 mg/dL 8.6 mg/dL mg/dL] (08/18/16 4:45 AM) (08/17/16 10:29 AM) (08/17/16 4:01 AM) Phosphorus [2.5-4.5 mg/dL] 3.7 mg/dL 4.2 mg/dL 4.1 mg/dL (08/18/16 4:45 AM) (08/17/16 4:01 AM) (08/16/16 5:57 PM) Magnesium Lvl [1.8-2.4 1.9 mg/dL 1.9 mg/dL 1.8 mg/dL mg/dL] (08/18/16 4:45 AM) (08/17/16 4:01 AM) (08/16/16 5:57 PM) ALT [0-65 unit/L] 12 unit/L 20 unit/L (08/17/16 4:01 AM) (08/16/16 1:06 AM) AST [0-37 unit/L] 16 unit/L 6 unit/L (08/17/16 4:01 AM) (08/16/16 1:06 AM) Alk Phos [39-136 unit/L] 82 unit/L 79 unit/L (08/17/16 4:01 AM) (08/16/16 1:06 AM) Bili Total [0.2-1.3 mg/dL] 0.4 mg/dL 0.4 mg/dL (08/17/16 4:01 AM) (08/16/16 1:06 AM) Lactic Acid Lvl [0.5-2.2 1.5 mMol/L 2.2 mMol/L mMol/L] (08/16/16 5:16 AM) (08/16/16 1:20 AM) 1Result Comment: The eGFR is calculated using the CKD-EPI formula. In most young , healthy individualsthe eGFR will be >90 mL/min/1.73m2. The eGFR declines with age. An eGFR of 60-89 may be normal in some populations, particularly the elderly, for whom the CKD-EPI formula has not been extensively validated. Use of the eGFR is not recommended in the following populations: Individuals with unstable creatinine concentrations, including patients and those with serious co-morbid conditions. Patients with extremes in muscle mass or diet. The data above are obtained from the National Kidney Disease Education Program ( NKDEP) which additionally recommends that when the eGFR is used in patients with extremes of body mass index for purposesof drug dosing, the eGFR should be multiplied by the estimated BMI.2Result Comment: The eGFR is calculated using the CKD-EPI formula. In most young, healthy individualsthe eGFR will be >90 mL/ min/1.73m2. The eGFR declines with age. An eGFR of 60-89 may be normal in some populations, particularly the elderly, for whom the CKD-EPI formula has not been extensively validated. Use of the eGFR is not recommended in the following populations: Individuals with unstable creatinine concentrations, including patients and those with serious co-morbid conditions. Patients with extremes in muscle mass or diet. The data above are obtained from the National Kidney Disease Education Program ( NKDEP) which additionally recommends that when the eGFR is used in patients with extremes of body mass index for purposesof drug dosing, the eGFR should be multiplied by the estimated BMI.3Result Comment: The eGFR is calculated using the CKD-EPI formula. In most young, healthy individualsthe eGFR will be >90 mL/ min/1.73m2. The eGFR declines with age. An eGFR of 60-89 may be normal in some populations, particularly the elderly, for whom the CKD-EPI formula has not been extensively validated. Use of the eGFR is not recommended in the following populations: Individuals with unstable creatinine concentrations, including patients and those with serious co-morbid conditions. Patients with extremes in muscle mass or diet. The data above are obtained from the National Kidney Disease Education Program ( NKDEP) which additionally recommends that when the eGFR is used in patients with extremes of body mass index for purposesof drug dosing, the eGFR should be multiplied by the estimated BMI.CARDIAC ENZYMES Most recent to oldest [Reference Range]: 1 2 3 Total CK [12-191 unit/L] 39 unit/L 40 unit/L (08/16/16 5:16 AM) (08/16/16 1:06 AM) Troponin-T [0.000-0.100 ng/mL] 0.026 ng/mL <0.010 ng/mL (08/16/16 5:16 AM) (08/16/16 1:06 AM) Troponin-I [0.00-0.40 ng/mL] 0.13 ng/mL 0.05 ng/mL (08/16/16 5:16 AM) (08/16/16 1:06 AM) MYOGLOBIN Most recent to oldest [Reference Range]: 1 2 3 Myoglobin [25-72 ng/mL] 54 ng/mL 37 ng/mL (08/16/16 5:16 AM) (08/16/16 1:06 AM) LIPIDS Most recent to oldest [Reference Range]: 1 2 3 CHD Risk [4.00-7.30] 2.09 *LOW* (08/16/16 1:06 AM) Chol [<=199 mg/dL] 69 mg/dL (08/16/16 1:06 AM) Trig [<=149 mg/dL] 50 mg/dL (08/16/16 1:06 AM) HDL [>=61 mg/dL] 33 mg/dL *LOW* (08/16/16 1:06 AM) LDL (Calculated) [<=99 mg/dL] 26 mg/dL (08/16/16 1:06 AM) VLDL 10 *NA* (08/16/16 1:06 AM) SPECIAL CHEMISTRY Most recent to oldest [Reference Range]: 1 2 3 Hgb A1C [<=5.6 %] 6.5 % *HI* (08/16/16 1:06 AM) PARATHYROID PROFILE Most recent to oldest [Reference Range]: 1 2 3 Ca Ion WB [1.05-1.25 mMol/L] 1.11 mMol/L 1.33 mMol/L (08/17/16 4:01 AM) *HI* (08/16/16 1:06 AM) Ca Norm WB [1.05-1.25 mMol/L] 1.11 mMol/L 1.25 mMol/L (08/17/16 4:01 AM) (08/16/16 1:06 AM) URINE CHEM Most recent to oldest [Reference Range]: 1 2 3 U Sodium 115 mEq/L *NA* (08/16/16 2:05 PM) U Potassium 33.9 mEq/L *NA* (08/16/16 2:05 PM) U Chloride 143 mEq/L *NA* (08/16/16 2:05 PM) U Magnesium >10 mg/dL 1 *NA* (08/16/16 2:05 PM) 1Result Comment: Diluted result was 24.4 notified Roshan Looney 08/17/2016 21: 27.URINE AND STOOL Most recent to oldest [Reference Range]: 1 2 3 UA Turbidity [Clear] Clear (08/16/16 1:06 AM) UA Color [Yellow] Yellow *NA* (08/16/16 1:06 AM) UA pH [5.0-8.0] 5.5 (08/16/16 1:06 AM) UA Spec Grav [<=1.030] 1.016 (08/16/16 1:06 AM) UA Glucose [Negative mg/dL] 50 mg/dL *ABN* (08/16/16 1:06 AM) UA Blood [Negative] Negative (08/16/16 1:06 AM) UA Ketones [Negative mg/dL] Negative mg/dL *NA* (08/16/16 1:06 AM) UA Protein [Negative mg/dL] Negative mg/dL (08/16/16 1:06 AM) UA Urobilinogen [0.1-1.0 mg/dL] <=1.0 mg/dL *NA* (08/16/16 1:06 AM) UA Bili [Negative] Negative *NA* (08/16/16 1:06 AM) UA Leuk Est [Negative] Negative (08/16/16 1:06 AM) UA Nitrite [Negative] Negative (08/16/16 1:06 AM) UA WBC [0-5 /HPF] 2 /HPF (08/16/16 1:06 AM) UA RBC [0-2 /HPF] 1 /HPF (08/16/16 1:06 AM) UA Sq Epi None Seen *NA* (08/16/16 1:06 AM) UA Hyal Cast [0-2 /LPF] 4 /LPF *HI* (08/16/16 1:06 AM) UA CaOx Kelli [None Seen /HPF] Occasional /HPF *NA* (08/16/16 1:06 AM) UA Mucus [None Seen /LPF] Few /LPF *NA* (08/16/16 1:06 AM) HEMATOLOGY Most recent to oldest 1 2 3 [Reference Range]: WBC [3.7-10.4 K/CMM] 8.0 K/CMM 6.9 K/CMM 8.7 K/CMM (08/18/16 4:45 AM) (08/17/16 4:01 AM) (08/16/16 11:50 AM) RBC [4.70-6.10 M/CMM] 4.60 M/CMM 4.14 M/CMM 4.32 M/CMM *LOW* *LOW* *LOW* (08/18/16 4:45 AM) (08/17/16 4:01 AM) (08/16/16 11:50 AM) Hgb [14.0-18.0 g/dL] 12.4 g/dL 11.4 g/dL 11.6 g/dL *LOW* *LOW* *LOW* (08/18/16 4:45 AM) (08/17/16 4:01 AM) (08/16/16 11:50 AM) Hct [42.0-54.0 %] 38.7 % 34.6 % 35.9 % *LOW* *LOW* *LOW* (08/18/16 4:45 AM) (08/17/16 4:01 AM) (08/16/16 11:50 AM) MCV [80.0-94.0 fL] 84.2 fL 83.7 fL 83.0 fL (08/18/16 4:45 AM) (08/17/16 4:01 AM) (08/16/16 11:50 AM) MCH [27.0-31.0 pg] 27.0 pg 27.7 pg 26.8 pg (08/18/16 4:45 AM) (08/17/16 4:01 AM) *LOW* (08/16/16 11:50 AM) MCHC [32.0-36.0 g/dL] 32.1 g/dL 33.0 g/dL 32.3 g/dL (08/18/16 4:45 AM) (08/17/16 4:01 AM) (08/16/16 11:50 AM) RDW [11.5-14.5 %] 17.0 % 17.4 % 17.2 % *HI* *HI* *HI* (08/18/16 4:45 AM) (08/17/16 4:01 AM) (08/16/16 11:50 AM) Platelet [133-450 K/CMM] 158 K/CMM 141 K/CMM 150 K/CMM (08/18/16 4:45 AM) (08/17/16 4:01 AM) (08/16/16 11:50 AM) MPV [7.4-10.4 fL] 9.1 fL 8.5 fL 8.9 fL (08/18/16 4:45 AM) (08/17/16 4:01 AM) (08/16/16 11:50 AM) Segs [45.0-75.0 %] 70.2 % 58.5 % 71.2 % (08/18/16 4:45 AM) (08/17/16 4:01 AM) (08/16/16 11:50 AM) Lymphocytes [20.0-40.0 %] 19.6 % 30.0 % 18.2 % *LOW* (08/17/16 4:01 AM) *LOW* (08/18/16 4:45 AM) (08/16/16 11:50 AM) Monocytes [2.0-12.0 %] 6.5 % 6.8 % 6.8 % (08/18/16 4:45 AM) (08/17/16 4:01 AM) (08/16/16 11:50 AM) Eosinophils [0.0-4.0 %] 3.4 % 4.3 % 3.3 % (08/18/16 4:45 AM) *HI* (08/16/16 11:50 AM) (08/17/16 4:01 AM) Basophils [0.0-1.0 %] 0.3 % 0.4 % 0.5 % (08/18/16 4:45 AM) (08/17/16 4:01 AM) (08/16/16 11:50 AM) Segs-Bands # [1.5-8.1 5.6 K/CMM 4.0 K/CMM 6.2 K/CMM K/CMM] (08/18/16 4:45 AM) (08/17/16 4:01 AM) (08/16/16 11:50 AM) Lymphocytes # [1.0-5.5 1.6 K/CMM 2.1 K/CMM 1.6 K/CMM K/CMM] (08/18/16 4:45 AM) (08/17/16 4:01 AM) (08/16/16 11:50 AM) Monocytes # [0.0-0.8 K/CMM] 0.5 K/CMM 0.5 K/CMM 0.6 K/CMM (08/18/16 4:45 AM) (08/17/16 4:01 AM) (08/16/16 11:50 AM) Eosinophils # [0.0-0.5 0.3 K/CMM 0.3 K/CMM 0.3 K/CMM K/CMM] (08/18/16 4:45 AM) (08/17/16 4:01 AM) (08/16/16 11:50 AM) PT [12.0-14.7 seconds] 15.3 seconds 15.1 seconds 15.4 seconds *HI* *HI* *HI* (08/17/16 4:01 AM) (08/16/16 5:57 PM) (08/16/16 11:50 AM) INR [0.85-1.17] 1.18 1.17 1.19 *HI* (08/16/16 5:57 PM) *HI* (08/17/16 4:01 AM) (08/16/16 11:50 AM) PTT [22.9-35.8 seconds] 66.0 seconds 63.3 seconds 65.2 seconds *HI* *HI* *HI* (08/17/16 4:01 AM) (08/16/16 5:57 PM) (08/16/16 11:50 AM) BACTERIAL - SEROLOGY Most recent to oldest [Reference Range]: 1 2 3 MRSA by PCR Positive 1 *ABN* (08/16/16 1:06 AM) 1Result Comment: "Significant Findings called to Kya Krishna on 08/16/2016 at 13:44 by MARIO.Read Back OK." Immunizations No data available for this section Procedures Procedure Date Related Diagnosis Body Site Pancreas excision1 1Part of pancreas was removed due to excess ETOH. Social History Social History Type Response Substance Abuse Use: None. Sexual Sexually active: No. Exercise Exercise type: Walking.1 Employment/School Work/School description: - [employer]. Alcohol Past, Type Liquor. Frequency: Daily. Household alcohol concerns: No.2 Smoking Status Former smoker; Type: Cigarettes; Started at age: 20.0; Stopped at age: 51; Previous treatment: None; Concerns about tobacco use in household: Yes; Exposure to Tobacco Smoke None; Lives with someone who smokes; Other Tobacco Frequency smokes heavily 2 packs a day and brother that lives with him also smokes 1.5 packs a day.; Cigarette Smoking Last 365 Days No; Reg Smoking Cessation Counseling No 1light walking around his property.2Use to be a heavy drinker until he had a surgery for his pancreas due to ETOH abuse. Assessment and Plan Extracted from: Title: EP Progress Note * Author: Rebeca Torres MD Date: 08/17/16 Patient: ANDERSON MYERS Age: 71 years Sex: Male : 1945 Associated Diagnoses: None Author: Rebeca Torres MD Subjective Patient was extubated yesteray Health Status Allergies: Allergic Reactions (All) Severity Not Documented NKDA- No reactions were documented. 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 Jeniffer 08/16/2016 Objective Meds Scheduled Meds (3):atorvastatin, docusate-senna (docusate-senna 50 mg-8.6 mg oral tablet), insulin detemir Unscheduled Meds: None PRN Meds (8):Dextrose 50% in Water IV (Dextrose 50% Syringe), Dextrose 50% in Water IV (Dextrose 50% Syringe), glucagon, insulin aspart, insulin aspart, insulin aspart, insulin aspart, insulin aspart One Time Meds (6):(Completed) acetaminophen, (Completed) magnesium oxide, (not done) magnesium sulfate (magnesium sulfate 2 gm in Water 50 ml), (not done) magnesium sulfate (magnesium sulfate [address] 50 ml), (Ordered) metoprolol (metoprolol 5 mg/5 ml INJ), (Completed) tramadol Continuous Infusions (1):heparin 25,000 unit [14 unit/kg/hr] + Premix Diluent Dextrose 5% 500 mL (heparin additive 25,000 unit [14 unit/kg/hr] + Premix Diluent Dextrose 5% 500 mL) I&O Input/Output Record In Out Bal 08/17 24hr Tot 59 325 -266 08/16 24hr Tot [id number] VS/Measurements Measurements from flowsheet : Measurements 08/17/2016 06:12 Weight Collection Method Measured Current Weight 82.273 kg 08/16/2016 01:03 Heparin Dosing Weight (kg) 73.84 08/16/2016 01:02 Height 172.72 cm Height Collection Method Stated Weight 82 kg Dosing Weight Collection Method Measured Body Surface Area 1.9835 m2 Body Mass Index 27.49 m2 , Vital Signs (last 24 hrs) Last Charted Temp Axillary H 98.1DegF (AUG 16 16:00) Heart Rate Apical H 136bpm (AUG 17 10:00) Resp Rate 20 BRMIN (AUG 17 10:00) SBP 112 mmHg (AUG 16 21:00) DBP 63 mmHg (AUG 16 21:00) SpO2 94 % (AUG 17 10:00) General: Alert and oriented, No acute distress. Eye: Pupils are equal, round and reactive to light. HENT: Normocephalic. Neck: Supple, Non-tender. Respiratory: Respirations are non-labored. Cardiovascular: tachycardiac,s1,s2. Neurologic: Alert, Oriented. Review / Management Results review: Labs (Last four charted values) WBC 6.9 (AUG 17) 8.7 (AUG 16) H 10.9 (AUG 16) Hgb L 11.4 (AUG 17) L 11.6 (AUG 16) L 11.7 (AUG 16) Hct L 34.6 (AUG 17) L 35.9 (AUG 16) L 35.7 (AUG 16) Plt 141 (AUG 17) 150 (AUG 16) 157 (AUG 16) Na 139 (AUG 17) 138 (AUG 17) 137 (AUG 16) 138 (AUG 16) K 4.3 (AUG 17) 4.8 (AUG 17) 5.0 (AUG 16) H 5.2 (AUG 16) CO2 29 (AUG 17) 28 (AUG 17) 29 (AUG 16) 29 (AUG 16) Cl 103 (AUG 17) 104 (AUG 17) 103 (AUG 16) 103 (AUG 16) Cr 1.03 (AUG 17) 1.09 (AUG 17) 1.12 (AUG 16) 1.21 (AUG 16) BUN 17 (AUG 17) 19 (AUG 17) 21 (AUG 16) H 23 (AUG 16) Glucose Random H 226 (AUG 17) H 220 (AUG 17) H 218 (AUG 16) H 241 (AUG 16 ) Mg 1.9 (AUG 17) 1.8 (AUG 16) 1.8 (AUG 16) Phos 4.2 (AUG 17) 4.1 (AUG 16) 3.2 (AUG 16) Ca 8.6 (AUG 17) 8.6 (AUG 17) 8.7 (AUG 16) 8.7 (AUG 16) PT H 15.3 (AUG 17) H 15.1 (AUG 16) H 15.4 (AUG 16) H 15.9 ( AUG 16) INR H 1.18 (AUG 17) 1.17 (AUG 16) H 1.19 (AUG 16) H 1.24 (AUG 16) PTT H 66.0 (AUG 17) H 63.3 (AUG 16) H 65.2 (AUG 16) H 85.5 ( AUG 16) Troponin 0.13 (AUG 16) 0.05 (AUG 16) Total CK 39 (AUG 16) 40 (AUG 16) . Impression and Plan 71 yo man with PMH of CVA and Afib (on Eliquis) who presents to [facility] with history of ? syncopal episodes. Per medical records report, while the patient was beeing seen in the ED he went i nto asytole for 15 seconds requiring CPR. he was transferred here for evaluation for pacemaker.Patient also found to have K 6.9 . On arrival, he was in Afib with external pacers in place. Asystole and conduction abnormality In the setting of hyperkalemia which is a reversible cause,Now being treated No current indication for PPM Monitor closely on tele now tachy,recommed starting low dose 12.5mg Q8hr Will sign off ,please call for questions Addendum by Michael Villa MD on I attest that I have seen and examined the patient on 08/17/2015.I have reviewed the relevant clinical information and findings. I agree with the above note by Dr Torres. The above assessment and treatment plan was done under my supervision 08/20/2016 17:22 Transient bradycardia and asystole in the setting of severe hyperkalemia, no indication for a permanent PPM at this time Extracted from: Title: Infection Control Isolation Alert Author: Nayely Goodwin Date: 08/17/16 ISOLATION ALERT This patient is actively infected/colonized with a multi-drug resistant organism. Organism Site Date MRSA Nares 08/16/2016 Isolation Required: CONTACT Before isolation precautions may be discontinued, the following protocol must be followed and Infection Control should be notified: Organism Status Cultures Sites MRSA Off abx x 72hrs or 7 days if on dialysis and vancomycin x 2, 48 hrs apart Anterior nares, wounds, & any previous positive sites VRE Off abx x 72hrs or 7 days if on dialysis and renally-cleared drug active against patient's isolate x 2, 48 hrs apart Stool & any previous positive sites PCN-R or PCN-Intermediate Streptococcus pneumoniae 48 hrs of effective antibiotic and resolution of clinical S/S of pulmonary involvement Multi-drug Resistant Gram Negative Bacteria (Defined as resistant to at least 1 drug in 3 of the 5 drug classes below) a. Cefepime or ceftazidime b. Pip/tazo or ticar/clav c. Gentamicin, amikacin or tob ramycin d. Meropenem e. Ciprofloxacin or moxifloxacin Off abx x 72hrs or 7 days if on dialysis and aminoglycoside x2, 48 hrs apart Urine, stool, throat, & any previous positive sites Stenotrophomonas R to Trimethoprim-Sulfa Methoxazole (T/S) Off abx x 72hrs or 7 days if on dialysis and aminoglycoside x2, 48h apart Urine, stool, throat, & any previous positive sites Chryseobacterium meningosepticum (formerly Flavobacterium meningosepticum) and other Chryseobacterium spp. R to minocycline, rifampin, or vancomycin Off abx x 72hrs or 7 days if on dialysis and vancomycin x2, 48h apart Urine, stool, throat, & any previous positive sites Gram negative enterics: Salmonella, Shigella, etc. Off abx x 48 hrs x2, 48h apart Stool TB: Pulmonary or Laryngeal TB is judged clinically unlikely. Patient is improving on effective therapy. There is another diagnosis that explains the clinical syndrome, or they meet criteria. 3 negative sputum smears for AFB. Each sputum specimen should be collected 8- 24 hours apart and at least one should be an food product inspector specimen Sputum Varicella Maintain precautions until all lesions are crusted. Place susceptible patients on precautions beginning day 8 after exposure to day 21 after last exposure or day 28 for patients who have received VZIG. Rubeola (Measles) Maintain precautions for duration of illness. Place susceptible patients on precautions beginning day 5 after exposure to day 21 after last exposure. C. difficile colitis Maintain precautions for duration of diarrhea IT IS NOT NECESSARY TO CULTURE STERILE SITES (BLOOD, CSF, HEALED WOUNDS) WHEN TRYING TO DISCONTINUE ISOLATION. Consult Infection Control for suggested regimens for decolonization of patients with MRSA as well as for any questions. We can be reached at . Extracted from: Title: CCU History and Physical Author: Naa Elder MD Date: Patient: ANDERSON MYERS Age: 71 years Sex: Male : 1945 Associated Diagnoses: None Author: Naa Elder MD Basic Information Admit information: Transfer from [facility], accepted by Dr. Abernathy . Source of history: Medical record. Referral source: Direct physician admit. History limitation: Clinical condition, Family/guardian is not available. Chief Complaint Syncope; asystole History of Present Illness 71 yo man with PMH multiple CVAs and Afib (on Eliquis) who presents as direct transfer for episodes of asystole. Patient presented to [facility] with 1 week history of syncopal epidodes. Per re port, patient was talking in ER and then he went into asytole for 15 seconds require chest compressions. He had three additional episodes of this so external pacers placed and he was transferred here fo r evaluation for pacemaker. Of note, patient also found to have K 6.9 so was given 1 g calcium chloride and dextrose/insulin at outside hospital. He then had episode of vomiting and there was concern fo r ability to maintain airway so he was intubated. He was transferred here via [facility] without difficulty. On arrival, he was in Afib with external pacers in place. He was noted to have assymmetric pup ils so CT head ordered. However, on his way to CT scanner, his HR became labile with variation between 40s-140s and hypotensive to 80s/50s. He was started on levophed and art line emergently placed in sterile fashion. 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 Family History: No family history items have been selected or recorded. Procedure history: No active procedure history items have been selected or recorded. Social History Social & Psychosocial Habits No Data Available . Physical Examination VS/Measurements Measurements from flowsheet : Measurements 08/16/2016 01:03 Heparin Dosing Weight (kg) 73.84 08/16/2016 01:02 Height 172.72 cm Height Collection Method Stated Weight 82 kg Dosing Weight Collection Method Measured Body Surface Area 1.9835 m2 Body Mass Index 27.49 m2 , Vital Signs (last 24 hrs) Last Charted SpO2 100 % (AUG 16 00:45) Weight 82 kg (AUG 16 01:02) Height 172.72 cm (AUG 16:02) BMI 27.49 (AUG 16:) Gen: Intubated, sedated HEENT: R pupil 3 mm, reactive, L pupil 2 mm sluggishly reactive, ET tube and OG tube in place CV: Irregularly, irregular, no JVD, no murmur Resp: Mechanical breath sounds, equal air movement bilateral lung hansen GI: Soft, nondistended, +BS Ext: No edema Neuro: Sedated, h/o L sided weakness Review / Management Results review: Labs (Last four charted values) WBC H 10.9 (AUG 16) Hgb L 11.7 (AUG 16) Hct L 35.7 (AUG 16) Plt 157 (AUG 16) PT H 16.4 (AUG 16) INR H 1.30 (AUG 16) PTT See Note (AUG 16) . Impression and Plan 71man with PMH multiple CVAs and Afib who presents as direct transfer for episodes of asystole. External pacemaker in place currently. Neuro: - History of CVAs in past - Concern for asymmetric pupils on admission - CT brain w/o contrast pending (patient became hemodynamically unstable when initially being taken; portable CT ordered now) - Fentanyl for sedation, wean as tolerated - PRN versed as needed CV: # Asystole - Multiple episodes at outside hospital - K elevated 6.9, may be trigger - External pacemaker in place - Initial plan was for dental laboratory technician for transvenous pacing, however , no episodes asystole since arrival so can hold off for now and consult EP # Atrial fibrillation, chronic - H/o afib, on eliquis and metoprolol as outpatient - Rate very labile between 40s-140s, although 70s when temporarily breaks into sinus - TTE pending - Heparin drip - Monitor closely, may need to add heparin drip Resp: # Mechanical ventilation - Intubated for airway protection due to AMS - Pulm consulted - Monitor ABG - Will plan to extubate in AM if patient passes SBT GI: - Protonix 40 mg IV for GERD and GI prophylaxis Endo: # DM2 - A1c 6.5 on admission - Records show patient on Aspart 12 units TID AC and Levemir 30 units QAM - Will start Levemir 15 units and medium dose sliding scale aspart - Would benefit from ERA for renal protection; however, hyperkalemia on admission may preclude this Renal: # Hyperkalemia - K 6.9 at OSH, received kayexelate, 1 g calcium gluconate, and insulin/ dextrose - K 5 on POC on arrival here - Trend BMP Q8H - Will look for possible etiology since renal function normal otherwise ID: # Leukocytosis - Afebrile, tachycardic in afib, hypotensive - No evidence of infection - Check blood cultures and CXR - May be stress related - No indication to start antibiotics at this time Full Code NPO pending cath Heparin drip Protonix GI ppx Dispo: Pending possible transvenous pacing. Will call in AM patient's Jamari Myers - [phone], ; and son Nishant Myers [phone] CCU/CIMU Daily Patient Safety Checklist Yes No Mechanical Ventilation? x _ 1. Sedation level addressed? x _ 2. Sedation holiday performed if indicated? _ _ 3. Adequate pain control? x _ 4. Delirium assessment done and addressed? x _ 5. Restraints assessed/reordered? x _ 6. PUD ppx? x _ Blood Stream Infection Prevention: 1.Central Line necessity addressed? x _ _ vasoactive agents, _ TPN, _loss of venous access 2.Central Line duration > 5 days? _ x CAUTI Prevention: 1. Davis necessity addressed? x _ _ complete bedrest, _ urinary retention,_ 2. Davis duration > 3 days? x _ DVT Prevention: 1. VTE Advisor Completed on admission? x _ 2.DVT ppx? x _ Nutrition 1. Enteral Feeding within 48h? _ _ Blood Glucose Control 1. 60 mg/dl< BG < 200mg/dl? _ _ CAD/CHF/PCI Requirements: 1.ASA post PR? _ _ 2.ACEi + BB in CHF? _ _ 3. Statinin CAD? x _ 4. DAPT post-PCI? _ _ 5. Renal Protection Fluid Protocol Post-PCI? _ _ Discharge Planning 1. PT/OT? _ _ 2. Cardiac Rehab? _ _ 3. Case Management/Social Work Consult? _ _ Addendum by Bebo Buenrostro MD on 08/16/2016 10:27 I have personally seen and examined the patient with the resident. I agree with the management and plan as discussed, and outlined in the note. -- Pt admitted for prolonged sinus pauses, probably related to hyperkalemia -- Also has afib -- Intubated, will try to extubate
[2018-07-16] MEDS ORDERED: D50W 25 GM/50 ML SYRINGE IV ONE (12:24)
[2018-07-16] MEDS ORDERED: NA CHLORIDE 0.9% 500 ML ONE (12:24)
--- NOTE | 2018-07-16 12:35 | RAD REPORT ---
EXAM DESCRIPTION: RAD - Chest Single View - 07/16/2018 12:29 pm CLINICAL HISTORY: COUGH Chest pain. COMPARISON: Chest Single View dated 12/17/2016; Chest Single View dated 12/13/2016; Chest Single View dated 08/15/2016; Chest Pa And Lat (2 Views) dated 02/18/2016 FINDINGS: Portable technique limits examination quality. The lungs are grossly clear. The heart is upper limit of normal in size with dual lead pacer device p resent. No displaced fractures. IMPRESSION: No acute intrathoracic process suspected.
[2018-07-16 12:37] LABS: Absolute Lymphocytes (CBC) 1.3 K/uL (0.7-4.9); Absolute Monocytes 0.5 K/uL (0.1-1.3); Absolute Neutrophil 5.7 K/uL (1.8-8.0); Basophils % 0.6 % (0-1.3); Eosinophils % 3.2 % (0-4.4); Hematocrit 38.7 % (39.6-49.0); Lymphocytes % 16.5 % (15.3-44.8); MPV 9.1 fL (7.6-11.3); Monocytes % 6.8 % (3.3-12.3); RBC Red Blood Cell Count 4.28 M/uL (4.33-5.43)
[2018-07-16 12:43] LABS: Protime INR 1.21
[2018-07-16 13:28] LABS: Albumin 2.8 g/dL (3.4-5.0); Bilirubin Direct 0.2 mg/dL (0-0.2); Bilirubin Total 0.3 mg/dL (0.2-1.0); CKMB Creatine Kinase MB 2.4 ng/mL (0.3-3.6); Potassium 4.2 mmol/L (3.5-5.1); Protein, Total 6.9 g/dL (6.4-8.2)
[2018-07-16 14:58] LABS: Urine Bacteria <20 /HPF (NONE SEEN); Urine Culture Reflex Order NOT NEEDED; Urine RBC <5 /HPF (NONE SEEN)
--- NOTE | 2018-07-16 15:16 | ER ---
Nurse's Notes [facility] Name: Valentín Senior Jr Age: 73 yrs Sex: Male : 1945 Arrival Date: 07/16/2018 Time: 12:00 Bed 18 Private MD: Diagnosis: Hypoglycemia, unspecified Presentation: 07/16 12:00 Presenting complaint: EMS states: called out for generalized weakness, BS was 102, iw dropped to 34, oral glucose given, BP=82/61 upon arrival to ER, FS=67, pt alert and talking. Transition of care: patient was not received from another setting of care. Onset of symptoms was July 16, 2018. Risk Assessment: Do you want to hurt yourself or someone else? Patient reports no desire to harm self or others. Initial Sepsis Screen: Does the patient meet any 2 criteria? No. Patient's initial sepsis screen is negative. Does the patient have a suspected source of infection? No. Patient's initial sepsis screen is negative. Care prior to arrival: Medication(s) given: oral glucose. 12:00 Method Of Arrival: EMS: [facility] iw 12:00 Acuity: ILANA 2 iw Historical: - Allergies: 12:02 Morphine; iw - Home Meds: 12:31 Eliquis 5 mg oral tab 1 tab 2 times per day [Active]; Amiodarone Oral once daily iw [Active]; atorvastatin oral oral once daily [Active]; Docusate Sodium Oral [Active]; duloxetine oral oral once daily [Active]; Furosemide Oral [Active]; Lyrica Oral [Active]; Oxybutynin Chloride Oral [Active]; Ranitidine Oral [Active]; 12:34 insulin aspart subcutaneous subcutaneous daily [Active]; insulin detemir subcutaneous iw subcutaneous daily [Active]; Insulin Glargine insulin aspartate Flexpen Sub-Q 12 units before meals [Active]; - PMHx: 12:02 Atrial Fib; CAD; CVA; Diabetes - IDDM; Hernia; Pacemaker; Pancreatitis; Pneumonia; iw - Ebola Screening: : Patient negative for fever greater than or equal to 101.5 degrees Fahrenheit, and additional compatible Ebola Virus Disease symptoms Patient denies exposure to infectious person Patient denies travel to an Ebola-affected area in the 21 days before illness onset No symptoms or risks identified at this time. Screenin:15 Abuse screen: Denies threats or abuse. Nutritional screening: No deficits noted. aa5 Tuberculosis screening: No symptoms or risk factors identified. Fall Risk Fall in past 12 months (25 points). Secondary diagnosis (15 points) CVA, IV access (20 points). Total Damon Fall Scale indicates High Risk Score (45 or more points). Fall prevention measures have been instituted. Side Rails Up X 2 Placed Close to Nursing Station. Assessment: 12:00 General: Appears comfortable, Behavior is calm, cooperative. Pain: Denies pain. Neuro: aa5 Level of Consciousness is awake, alert, obeys commands, Oriented to person, place, time, situation, Sheet Metal Former are weak on left Moves all extremities. Speech is normal, Pupils are PERRLA. Cardiovascular: Heart tones S1 S2 present Rhythm is regular. Respiratory: Reports chronic cough with yellowish sputum Airway is patent Respiratory effort is even, unlabored, Respiratory pattern is regular, symmetrical, Breath sounds are clear bilaterally. Denies shortness of breath. GI: Abdomen is round non-distended, Bowel sounds present X 4 quads. Abd is soft and non tender X 4 quads. : Brief noted. EENT: No signs and/or symptoms were reported regarding the EENT system. Derm: Skin is dry, Skin is pale, Skin temperature is warm. Musculoskeletal: Range of motion: limited in left shoulder, left elbow and left wrist. 12:45 Reassessment: Pt given food tray, pt tolerating well. . aa5 13:44 Reassessment: Patient and/or family updated on plan of care and expected duration. Pain aa5 level reassessed. Patient is alert, oriented x 3, equal unlabored respirations, skin warm/dry/pink. Pt sitting up in bed watching TV. . 14:25 Reassessment: Patient and/or family updated on plan of care and expected duration. Pain aa5 level reassessed. Patient is alert, oriented x 3, equal unlabored respirations, skin warm/dry/pink. Pt sitting up in bed watching TV. . 15:42 Reassessment: Patient and/or family updated on plan of care and expected duration. Pain aa5 level reassessed. Patient is alert, oriented x 3, equal unlabored respirations, skin warm/dry/pink. 15:45 Reassessment: Pt's contacted for ride home per pt's request . aa5 16:15 Reassessment: Patient is alert, oriented x 3, equal unlabored respirations, skin aa5 warm/dry/pink. Vital Signs: 12:03 BP 82 / 61; Pulse 62; Resp 18 S; iw 12:03 Temp 98.1(O); Pulse Ox 96% on R/A; Pain 0/10; aa5 12:15 BP 104 / 59; Pulse 63; Resp 18 S; Pulse Ox 99% on R/A; aa5 12:45 BP 116 / 66; Pulse 63; Resp 16 S; Pulse Ox 98% on R/A; aa5 13:44 BP 98 / 63; Pulse 58; Resp 18; Pulse Ox 97% on R/A; mh5 14:30 BP 112 / 69; Pulse 60; Resp 18 S; Temp 98.0(O); Pulse Ox 100% on R/A; Pain 0/10; aa5 15:00 BP 109 / 61; Pulse 62; Resp 16 S; Pulse Ox 100% on R/A; aa5 15:42 BP 110 / 61; Pulse 61; Resp 18 S; Temp 98.0(O); Pulse Ox 100% on R/A; Pain 0/10; aa5 ED Course: 12:00 Patient arrived in ED. iw 12:01 Triage completed. iw 12:03 Juan A Dominguez NP is PHCP. pm1 12:03 Bradly Fonseca MD is Attending Physician. pm1 12:06 Missed attempt(s): 22 gauge in right forearm. Bleeding controlled, band aid applied, aa5 catheter tip intact. 12:08 Initial lab(s) drawn, by fl, sent to lab. Inserted saline lock: 22 gauge in left aa5 forearm, using aseptic technique. Blood collected. 12:18 Arm band placed on. iw 12:18 Patient has correct armband on for positive identification. Placed in gown. Bed in low mh5 position. Call light in reach. Side rails up X2. under sheriff on. Pulse ox on. NIBP on. 12:27 X-ray completed. Portable x-ray completed in exam room. Patient tolerated procedure la2 well. 12:29 Chest Single View XRAY In Process Unspecified. EDMS 12:37 Chelsey Hernandez, RN is Primary Nurse. aa5 13:12 Flu and/or RSV swab sent to lab. jl7 15:10 No provider procedures requiring assistance completed. aa5 16:15 IV discontinued, intact, bleeding controlled, No redness/swelling at site. Pressure aa5 dressing applied. Administered Medications: 12:15 Drug: D50W 50 ml Route: IVP; Site: left forearm; aa5 13:00 Follow up: Response: No adverse reaction aa5 12:15 Drug: NS 0.9% 500 ml Route: IV; Rate: bolus; Site: left forearm; aa5 13:00 Follow up: IV Status: Completed infusion aa5 Point of Care Testing: Blood Glucose: 12:03 Blood Glucose: 67 mg/dL; iw 12:53 Blood Glucose: 172 mg/dL; aa5 13:44 Blood Glucose: 285 mg/dL; mh5 14:30 Blood Glucose: 256 mg/dL; aa5 15:42 Blood Glucose: 300 mg/dL; aa5 Ranges: Intake: 14:30 Clear yellow urine noted aa5 Output: 14:30 Urine: 300ml (Voided); Total: 300ml. aa5 14:30 Clear yellow urine noted aa5 Outcome: 15:15 Discharge ordered by MD. pm1 16:15 Discharged to home via wheelchair, with family. aa5 16:15 Condition: improved 16:15 Discharge instructions given to patient, family, Instructed on discharge instructions, follow up and referral plans. Demonstrated understanding of instructions, follow-up care. 16:26 Patient left the ED. Signatures: Dispatcher [employer] Lauren Leija RN RN Chelsey Hernandez RN RN aa5 Juan A Dominguez NP CREDIT COLLECTIONS CLERK pm1 Gertrudis Ayoub Cesar Mcclain RN RN jl7 Stacy Escalante
--- NOTE | 2018-07-16 15:17 | EDPHYS ---
Physician Documentation [facility] Name: Valentín Senior Jr Age: 73 yrs Sex: Male : 1945 Arrival Date: 07/16/2018 Time: 12:00 Bed 18 Private MD: ED Physician Bradly Fonseca HPI: 07/16 13:00 This 73 yrs old Male presents to ER via EMS with complaints of Low Blood pm1 Sugar, General Weakness. 13:00 The patient or guardian reports hypoglycemia, that was potentially precipitated by Not pm1 eating, Treatment prior to arrival includes: administration of glucagon. Onset: The symptoms/episode began/occurred just prior to arrival, this morning. Associated signs and symptoms: Pertinent positives: Cough, Pertinent negatives: diaphoresis, diarrhea, seizure activity, vomiting. Current symptoms: In the emergency department the patient's symptoms have resolved, the patient is alert and fully oriented. The patient has experienced similar episodes in the past, a few times. The patient has not recently seen a physician, the patient's primary care provider is Dr. CASTLE. Patient ate last night. Took his insulin this morning but did not eat breakfast. 13:00 Called the EMS due to generalized weakness. His blood sugar was 102 on EMS arrival but pm1 dropped to 34. Glucagon was administered in route. Blood sugar 67 on ER arrival. Historical: - Allergies: 12:02 Morphine; iw - Home Meds: 12:31 Eliquis 5 mg oral tab 1 tab 2 times per day [Active]; Amiodarone Oral once daily iw [Active]; atorvastatin oral oral once daily [Active]; Docusate Sodium Oral [Active]; duloxetine oral oral once daily [Active]; Furosemide Oral [Active]; Lyrica Oral [Active]; Oxybutynin Chloride Oral [Active]; Ranitidine Oral [Active]; 12:34 insulin aspart subcutaneous subcutaneous daily [Active]; insulin detemir subcutaneous iw subcutaneous daily [Active]; Insulin Glargine insulin aspartate Flexpen Sub-Q 12 units before meals [Active]; - PMHx: 12:02 Atrial Fib; CAD; CVA; Diabetes - IDDM; Hernia; Pacemaker; Pancreatitis; Pneumonia; iw - Ebola Screening: : Patient negative for fever greater than or equal to 101.5 degrees Fahrenheit, and additional compatible Ebola Virus Disease symptoms Patient denies exposure to infectious person Patient denies travel to an Ebola-affected area in the 21 days before illness onset No symptoms or risks identified at this time. ROS: 13:00 Constitutional: Negative for fever, chills, and weight loss, Eyes: Negative for injury, pm1 pain, redness, and discharge, ENT: Negative for injury, pain, and discharge, Neck: Negative for injury, pain, and swelling, Cardiovascular: Negative for chest pain, palpitations, and edema, Abdomen/GI: Negative for abdominal pain, nausea, vomiting, diarrhea, and constipation. 13:00 Back: Negative for injury and pain, : Negative for injury, bleeding, discharge, and swelling, MS/Extremity: Negative for injury and deformity, Skin: Negative for injury, rash, and discoloration. 13:00 Respiratory: Positive for cough, Negative for shortness of breath, sputum production, wheezing. 13:00 Neuro: Positive for generalized weakness, Negative for altered mental status, dizziness, headache, numbness, seizure activity, tingling, focal weakness. 13:00 Endocrine: Positive for hypoglycemia. Exam: 13:00 Constitutional: This is a well developed, well nourished patient who is awake, alert, pm1 and in no acute distress. Head/Face: Normocephalic, atraumatic. Eyes: Pupils equal round and reactive to light, extra-ocular motions intact. Lids and lashes normal. Conjunctiva and sclera are non-icteric and not injected. Cornea within normal limits. Periorbital areas with no swelling, redness, or edema. ENT: Nares patent. No nasal discharge, no septal abnormalities noted. Tympanic membranes are normal and external auditory canals are clear. Oropharynx with no redness, swelling, or masses, exudates, or evidence of obstruction, uvula midline. Mucous membranes moist. Neck: Trachea midline, no thyromegaly or masses palpated, and no cervical lymphadenopathy. Supple, full range of motion without nuchal rigidity, or vertebral point tenderness. No Meningismus. Chest/axilla: Normal chest wall appearance and motion. Nontender with no deformity. No lesions are appreciated. Cardiovascular: Regular rate and rhythm with a normal S1 and S2. No gallops, murmurs, or rubs. Normal PMI, no JVD. No pulse deficits. Respiratory: Lungs have equal breath sounds bilaterally, clear to auscultation and percussion. No rales, rhonchi or wheezes noted. No increased work of breathing, no retractions or nasal flaring. Abdomen/GI: Soft, non-tender, with normal bowel sounds. No distension or tympany. No guarding or rebound. No evidence of tenderness throughout. Back: No spinal tenderness. No costovertebral tenderness. Full range of motion. Skin: Warm, dry with normal turgor. Normal color with no rashes, no lesions, and no evidence of cellulitis. MS/ Extremity: Pulses equal, no cyanosis. Neurovascular intact. Full, normal range of motion. 13:00 Neuro: Orientation: is normal, Motor: moves all fours, Sensation: is normal, no obvious gross deficits. Vital Signs: 12:03 BP 82 / 61; Pulse 62; Resp 18 S; iw 12:03 Temp 98.1(O); Pulse Ox 96% on R/A; Pain 0/10; aa5 12:15 BP 104 / 59; Pulse 63; Resp 18 S; Pulse Ox 99% on R/A; aa5 12:45 BP 116 / 66; Pulse 63; Resp 16 S; Pulse Ox 98% on R/A; aa5 13:44 BP 98 / 63; Pulse 58; Resp 18; Pulse Ox 97% on R/A; mh5 14:30 BP 112 / 69; Pulse 60; Resp 18 S; Temp 98.0(O); Pulse Ox 100% on R/A; Pain 0/10; aa5 15:00 BP 109 / 61; Pulse 62; Resp 16 S; Pulse Ox 100% on R/A; aa5 15:42 BP 110 / 61; Pulse 61; Resp 18 S; Temp 98.0(O); Pulse Ox 100% on R/A; Pain 0/10; aa5 MDM: 12:03 Patient medically screened. pm1 15:15 Data reviewed: vital signs. Data interpreted: Pulse oximetry: on room air is 100 %. pm1 Interpretation: normal. Counseling: I had a detailed discussion with the patient and/or guardian regarding: the historical points, exam findings, and any diagnostic results supporting the discharge/admit diagnosis, lab results, radiology results, the need for outpatient follow up, to return to the emergency department if symptoms worsen or persist or if there are any questions or concerns that arise at home. 07/16 12:03 Order name: glucometer results - FOR PT WITH NO ID iw 07/16 12:11 Order name: Basic Metabolic Panel pm1 07/16 12:11 Order name: Blood Culture Adult (2) pm1 07/16 12:11 Order name: CBC with Diff pm1 07/16 12:11 Order name: Ckmb pm1 07/16 12:11 Order name: CPK pm1 07/16 12:11 Order name: Lactate pm1 07/16 12:11 Order name: LFT's pm1 07/16 12:11 Order name: Lipase pm1 07/16 12:11 Order name: Procalcitonin pm1 07/16 12:11 Order name: Protime (+inr); Complete Time: 12:54 pm1 07/16 12:11 Order name: Ptt, Activated; Complete Time: 12:54 pm1 07/16 12:11 Order name: Troponin (emerg Dept Use Only); Complete Time: 14:08 pm1 07/16 12:11 Order name: Urine Microscopic Only; Complete Time: 15:12 pm1 07/16 12:11 Order name: Diet Regular; Complete Time: 12:12 ag 07/16 12:11 Order name: Chest Single View XRAY; Complete Time: 12:54 pm1 07/16 12:11 Order name: Accucheck; Complete Time: 12:37 pm1 07/16 12:12 Order name: Basic Metabolic Panel; Complete Time: 14:08 EDMS 07/16 12:12 Order name: Blood Culture EDMS 07/16 12:12 Order name: CBC with Automated Diff; Complete Time: 12:54 EDMS 07/16 12:12 Order name: CKMB Creatine Kinase MB; Complete Time: 14:08 EDMS 07/16 12:12 Order name: Creatine Phosphokinase; Complete Time: 14:08 EDMS 07/16 12:13 Order name: Lactate; Complete Time: 14:08 EDMS 07/16 12:13 Order name: Liver (Hepatic) Function; Complete Time: 14:08 EDMS 07/16 12:13 Order name: Lipase; Complete Time: 14:08 EDMS 07/16 12:13 Order name: Procalcitonin; Complete Time: 14:08 EDMS 07/16 13:03 Order name: Flu; Complete Time: 14:08 pm1 07/16 14:53 Order name: Urine Dipstick--Ancillary (enter results) ag 07/16 12:11 Order name: Cardiac monitoring; Complete Time: 12:37 pm1 07/16 12:11 Order name: EKG - Nurse/Tech; Complete Time: 12:37 pm1 07/16 12:11 Order name: IV Saline Lock - Large Bore; Complete Time: 12:37 pm1 07/16 12:11 Order name: Labs collected and sent; Complete Time: 12:37 pm1 07/16 12:11 Order name: O2 Per Protocol; Complete Time: 12:37 pm1 07/16 12:11 Order name: O2 Sat Monitoring; Complete Time: 12:37 pm1 07/16 12:11 Order name: Urine Dipstick-Ancillary (obtain specimen); Complete Time: 14:41 pm1 Administered Medications: 12:15 Drug: D50W 50 ml Route: IVP; Site: left forearm; aa5 13:00 Follow up: Response: No adverse reaction aa5 12:15 Drug: NS 0.9% 500 ml Route: IV; Rate: bolus; Site: left forearm; aa5 13:00 Follow up: IV Status: Completed infusion aa5 Point of Care Testing: Blood Glucose: 12:03 Blood Glucose: 67 mg/dL; iw 12:53 Blood Glucose: 172 mg/dL; aa5 13:44 Blood Glucose: 285 mg/dL; mh5 14:30 Blood Glucose: 256 mg/dL; aa5 15:42 Blood Glucose: 300 mg/dL; aa5 Ranges: Critical Glucose Levels:Adult <50 mg/dl or >400 mg/dl <40 mg/dl or >180 mg/dl Disposition: 07/16/18 15:15 Discharged to Home. Impression: Hypoglycemia, unspecified. - Condition is Stable. - Discharge Instructions: Hypoglycemia, Blood Glucose Monitoring, Adult. - Medication Reconciliation Form, Thank You Letter form. - Follow up: Emergency Department; When: As needed; Reason: Worsening of condition. Follow up: Private Physician; When: 2 - 3 days; Reason: Recheck today's complaints, Continuance of care, Re-evaluation by your physician. - Problem is new. - Symptoms have improved. Addendum: 07/27/2018 15:36 Co-signature as Attending Physician, Bradly Fonseca MD Available for consultation at p s1 all times. . Signatures: Dispatcher [employer] Lauren Leija RN RN iw Chelsey Hernandez RN RN aa5 Juan A Dominguez, FUEL QUALITY TECH FUEL QUALITY TECH pm1 Bradly Fonseca MD MD ps1 Corrections: (The following items were deleted from the chart) 07/16 16:26 15:15 07/16/2018 15:15 Discharged to Home. Impression: Hypoglycemia, unspecified. iw Condition is Stable. Discharge Instructions: Hypoglycemia, Blood Glucose Monitoring, Adult. Forms are Medication Reconciliation Form, Thank You Letter, Antibiotic Education, Prescription Opioid Use. Follow up: Emergency Department; When: As needed; Reason: Worsening of condition. Follow up: Private Physician; When: 2 - 3 days; Reason: Recheck today's complaints, Continuance of care, Re-evaluation by your physician. Problem is new. Symptoms have improved. pm1
[2018-07-16 20:37] LABS: Urine Blood NEGATIVE (NEG); Urine Glucose TRACE (NEG); Urine Protein NEGATIVE (NEG)
--- NOTE | 2018-07-17 07:56 | EKG ---
Test Date: 2018-07-16 Test Time: 12:09:34 Transmission Assembler: SHELLY MEASUREMENT RESULTS: Intervals: Rate: 74 AL: 228 QRSD: 78 QT: 436 QTc: 483 [place]: P: 49 AL: 228 QRS: 50 T: 62 INTERPRETIVE STATEMENTS: Sinus rhythm with 1st degree AV block with occasional and consecutive premature ventricular complexes Prolonged QT Abnormal ECG Compared to ECG 12/17/2016 10:54:33 Ventricular premature complex(es) now present First degree AV block now present Prolonged QT interval now present Atrial fibrillation no longer present ST (T wave) deviation no longer present Electronically Signed On 07-17-18 07:54:05 MDS NURSE by Aj Castañeda
== END 2018-07-16 16:26 | disposition home or self-care (01) ==
LOC: ER 11:56
DX: E11.649 Type 2 diabetes mellitus with hypoglycemia without coma (principal); R05 Cough; I44.0 Atrioventricular block, first degree; I49.3 Ventricular premature depolarization; R94.31 Abnormal electrocardiogram [ECG] [EKG]; I48.91 Unspecified atrial fibrillation; I25.10 Atherosclerotic heart disease of native coronary artery without angina pectoris; Z79.4 Long term (current) use of insulin; Z79.01 Long term (current) use of anticoagulants; Z79.899 Other long term (current) drug therapy; Z95.0 Presence of cardiac pacemaker; Z86.73 Personal history of transient ischemic attack (TIA), and cerebral infarction without residual deficits
CPT/HCPCS: 36415; 71045; 80048; 80076; 81003; 81015; 82550; 82553; 82962; 83605; 83690; 84145; 84484; 85025; 85610; 85730; 87040; 87804; 93005; 96361; 96374; 99285

== ENCOUNTER 2018-12-30 13:32 | Emergency (ER) | payer OTHER ==
--- OUTSIDE RECORDS SUMMARY | 2018-12-30 13:36 | XMS REPORT | Continuity of Care Document ---
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 DYSRHYTHMIAS Active 08/16/[address] GIOVANNA Active 08/16/19 [facility] BILLING [address] [place] [address] Atrial Active Problem 08/21/2016 [facility] fibrillation [facility] CVA (<span Resolved Problem 08/21/2016 Had CVA in [facility] ID="[id number] 1994 which Medical ">Confirmed</spa left [facility] n>)<sup>1</sup> 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 He is using 1 stick for mobility Diabetes Active Problem 08/21/2016 On insulin [facility] mellitus<sup>2</ Medical sup> Center Pancreas Resolved Problem 08/21/2016 Had part of [facility] disorder<sup>3</ his Medical sup> pancreas Center removed due to excess ETOH. DYSTHYMIC Active [facility] Medications Medication Details Route Status Patient Ordering Order Source Instructions Provider Date bacitracin-polym 1 appl, Route: No Longer 08/19[facility] yxin B topical TOP, Daily, Drug Active 2016 Medical form: [place], [place] Start date: 08/19/16 9:00:00 [employer], Duration: 30 day, Stop date: 09/17/16 9:00:00 CSTNotes: (Same As: Polysporin) Neosporin 1 appl, Route: Inactive 08/18[facility] TOP, Daily, Drug 2017 Medical form: [place], [place] Start date: 08/18/16 15:07:00 [employer], Duration: 30 day, Stop date: 09/17/16 9:00:00 [employer] apixaban 5 MG 5 mg=1 tab, PO, Active 08/18[facility] Oral Tablet BID, # 60 tab, 0 [...] Center metoprolol 25 mg=1 tab, PO, Inactive [facility] tartrate 25 mg BID, # 60 tab, 0 2017 Medical oral tablet Refill(s) Center atorvastatin 40 40 mg=1 tab, PO, Inactive [place] mg oral tablet Bedtime, # 30 2016 Medical tab, 0 Refill(s) Center apixaban 5 MG 5 mg=1 tab, PO, Inactive [facility] Oral Tablet BID, # 60 tab, 0 2017 Medical [Eliquis] Refill(s) Center tamsulosin 0.4 0.4 mg=1 cap, Inactive [place] mg oral capsule PO, Daily, # 30 2016 Medical cap, 0 Refill(s) Center Ranitidine 150 150 mg=1 tab, Inactive [place] MG Oral Tablet PO, BID, # 60 2017 Medical tab, 0 Refill(s) Center omeprazole 40 mg 40 mg=1 cap, PO, Inactive [facility] oral delayed Daily, # 30 cap, 2016 Medical release capsule 0 Refill(s) Center Metformin 500 mg=1 tab, Inactive [place] hydrochloride PO, BID-Meals, # 2017 Medical 500 MG Oral 180 tab, 0 Center Tablet Refill(s) Furosemide 20 MG 20 mg=1 tab, PO, Inactive [place] Oral Tablet Daily, # 30 tab, 2017 Medical 0 Refill(s) Center finasteride 5 mg 5 mg=1 tab, PO, Inactive [facility] oral tablet Daily, # 30 tab, 2017 Medical 0 Refill(s) Center DULoxetine 60 mg 60 mg=1 cap, PO, Inactive [place] oral delayed Daily, # 30 cap, 2017 Medical release capsule 0 Refill(s) Center apixaban 5 MG 5 mg=1 tab, PO, Inactive [facility] Oral Tablet BID, # 60 tab, [...] 20 MG 20 mg=1 tab, PO, Inactive [facility] Oral Tablet Daily, # 30 tab, 2017 Medical 0 Refill(s) Center finasteride 5 mg 5 mg=1 tab, PO, Inactive [facility] oral tablet Daily, # 30 tab, 2017 Medical 0 Refill(s) Center DULoxetine 60 mg 60 mg=1 cap, PO, Inactive [facility] oral delayed Daily, # 30 cap, 2017 Medical release capsule 0 Refill(s) Center metoprolol 25 mg=1 tab, PO, Inactive [facility] tartrate 25 mg BID, # 60 tab, 0 2017 Medical oral tablet Refill(s) Center omeprazole 40 mg 40 mg=1 cap, PO, Inactive [facility] oral delayed Daily, # 30 cap, 2017 Medical release capsule 0 Refill(s) Center atorvastatin 40 40 mg=1 tab, PO, Inactive [facility] mg oral tablet Bedtime, # 30 2017 Medical tab, 0 Refill(s) Center hydrOXYzine 25 mg=1 cap, PO, Inactive [facility] pamoate Q6H, PRN nausea, 2017 Medical # 20 cap, 0 Center Refill(s) Furosemide 20 MG 20 mg=1 tab, PO, Inactive [facility] Oral Tablet Daily, # 30 tab, 2017 Medical 0 Refill(s) Center finasteride 5 mg 5 mg=1 tab, PO, Inactive [facility] oral tablet Daily, # 30 tab, 2017 Medical 0 Refill(s) Center omeprazole 20 mg 20 mg=1 tab, PO, Inactive [facility] oral enteric BID, # 30 tab, 0 2017 Medical coated tablet Refill(s) [place] tamsulosin 0.4 0.4 mg=1 cap, Inactive [facility] mg oral capsule PO, Daily, # 30 2017 Medical cap, 0 Refill(s) [place] Omeprazole PO, Daily, 0 Inactive [facility] Refill(s) 2017 [facility] metoprolol 25 mg=1 tab, PO, Inactive [facility] tartrate 25 mg BID, # 180 tab, 2017 Medical oral tablet 0 Refill(s) [place] apixaban 5 MG 5 mg=1 tab, PO, Inactive [facility] Oral Tablet BID, 0 Refill(s) 2017 Medical [Eliquis] [place] Metformin 500 mg=1 tab, Inactive [facility] hydrochloride PO, BID-Meals, # 2017 Medical 500 MG Oral 30 tab, 0 [place] Tablet Refill(s) Ranitidine 150 150 mg=1 tab, Inactive 08/18[facility] MG Oral Tablet PO, BID, # 60 2017 Medical tab, 0 Refill(s) [place] DULoxetine 60 mg 60 mg=1 cap, PO, Inactive 08/18[facility] oral delayed Daily, # 30 cap, 2017 Medical release capsule 0 Refill(s) [place] simvastatin 10 10 mg=1 tab, PO, Inactive 08/18[facility] mg oral tablet Bedtime, # 30 2017 Medical tab, 0 Refill(s) [place] oxybutynin 5 mg 5 mg=1 tab, PO, Inactive [facility] oral tablet TID, PRN 2017 Medical Other-See Center Comments, # 30 tab, 0 Refill(s) Sodium Chloride 250 mL, 250 Inactive [facility] 0.154 MEQ/ML ml/hr, Infuse 2017 Medical Injectable Over: 1 hr, [place] Solution Route: IV, 250, Drug form: INJ, ONCE, Priority: STAT, Dosing Weight 82 kg, Start date: 08/18/16 8:56:00 [employer], Duration: 1 doses or times, Stop date: 08/18/16 8:56:00 [employer] Tylenol 650 mg, 2 tab, Inactive [facility] Route: PO, Drug 2017 Medical form: TAB, Q6H, Center Dosing Weight 82, kg, PRN Pain Score 1-3, Start date: 08/18/16 8:52:00 [employer], Duration: 30 day, Stop date: 09/17/16 8:51:00 CSTNotes: Do not exceed 4 gm/day. (Same as: Tylenol) Magnesium Oxide 800 mg, 2 tab, Inactive [facility] Route: PO, Drug 2016 Medical form: TAB, ONCE, Center Dosing Weight 82, kg, Start date: 08/18/16 8:49:00 [employer], Stop date: 08/18/16 8:49:00 CSTNotes: (Same as: Mag-Ox 400) Magnesium oxide [id number] elemental magnesium Dose=____mg magnesium oxide (___mg elemental magnesium) Metoprolol 5 mg, 5 mL, Inactive [facility] Route: IV, Drug 2016 Medical form: INJ, ONCE, Center Dosing Weight 82, kg, Start date: 08/18/16 4:35:00 [employer], Stop date: 08/18/16 4:35:00 CSTNotes: (Same as: Lopressor) Push over 2 minutes Robitussin 30 mg, Route: No Longer [facility] CoughGels PO, Q6H, Dosing Active 2016 Medical Weight 82, kg, Center Start date: 08/18/16 0:00:00 [employer], Duration: 30 day, Stop date: 09/16/16 18:00:00 [employer] Eliquis 5 mg, 1 tab, No Longer [facility] Route: PO, Drug Active 2016 Medical form: TAB, Q12H, Center Dosing Weight 82, kg, Start date: 08/17/16 21:00:00 [employer], Duration: 30 day, Stop date: 09/16/16 9:00:00 CSTNotes: Same as: Eliquis benzocaine-menth 1 lozenge, No Longer [facility] ol topical Route: MUCOUS Active 2016 Medical MEM, Drug Form: Center DANILO, Q2H, PRN Cough, Start date: 08/17/16 19:29:00 [employer], Duration: 30 day, Stop date: 09/16/16 19:28:00 CSTNotes: Cepacol lozenges Dispense 1 box=16 lozenges (Same As: Cepacol Lozenges) Albuterol 0.833 3 ml, Route: No Longer [place] MG/ML / NEB, Drug Form: Active 2017 Medical Ipratropium SOLN, Dosing Center [place] 0.167 Weight 82, kg, MG/ML Inhalant PRN, PRN Solution Respiratory [DuoNeb] Protocol, Start date: 08/17/16 18:46:00 [employer], Duration: 30 day, Stop date: 09/16/16 18:45:00 CSTNotes: (Same as: Duoneb) metoprolol 12.5 mg, 1 tab, No Longer [place] tartrate Route: PO, Drug Active 2017 Medical form: TAB, Q8H, Center Dosing Weight 82, kg, Start date: 08/17/16 16:00:00 [employer], Duration: 30 day, Stop date: 09/16/16 8:00:00 CSTNotes: (Same as: Lopressor) 12.5mg=1/4 X 50 mg tab. Metoprolol 5 mg, 5 mL, Inactive [place] Route: IV, Drug 2016 Medical form: INJ, ONCE, Center Dosing Weight 82, kg, Priority: STAT, Start date: 08/17/16 9:58:00 [employer], Stop date: 08/17/16 9:58:00 CSTNotes: (Same as: Lopressor) Push over 2 minutes Acetaminophen 650 mg, 20.3 mL, Inactive [place] Route: PO, Drug 2016 Medical form: LIQ, ONCE, Center Dosing Weight 82, kg, Priority: STAT, Start date: 08/17/16 8:55:00 [employer], Stop date: 08/17/16 8:55:00 CSTNotes: Max acetaminophen=40 00mg/day (4 gm/day). (Same as: Tylenol) Magnesium Oxide 400 mg, 1 tab, Inactive [place] Route: PO, Drug 2017 Medical form: TAB, ONCE, Center Dosing Weight 82, kg, Start date: 08/17/16 5:32:00 [employer], Stop date: 08/17/16 5:32:00 CSTNotes: (Same as: Mag-Ox 400) Magnesium oxide [id number] elemental magnesium Dose=____mg magnesium oxide (___mg elemental magnesium) Tramadol 100 mg, 2 tab, Inactive [place] Route: PO, Drug 2017 Medical form: TAB, ONCE, Center Dosing Weight 82, kg, Start date: 08/17/16 4:22:00 [employer], Stop date: 08/17/16 4:22:00 CSTNotes: Not to exceed 400mg/day. (Same As: Ultram) atorvastatin 40 mg, 1 tab, No Longer [place] Route: PO, Drug Active 2017 Medical form: TAB, Center Bedtime, Dosing Weight 82, kg, Start date: 08/16/16 21:00:00 [employer], Duration: 30 day, Stop date: 09/14/16 21:00:00 CSTNotes: (Same as: Lipitor) insulin detemir 10 unit, 0.1 mL, No Longer [place] Route: SUB-Q, Active 2016 Medical Drug form: SOLN, Center Daily, Dosing Weight 82, kg, Start date: 08/16/16 9:00:00 [employer], Duration: 30 day, Stop date: 09/14/16 9:00:00 CSTNotes: Same as Levemir Do not hold insulin without contacting prescriber WASTE: F/P - Black; E - Municipal Trash Bin "single patient use only" Protonix 40 mg, 1 tab, Inactive [place] Route: PO, Drug 2016 Medical form: ECTAB, Center Daily, Dosing Weight 82, kg, Start date: 08/16/16 9:00:00 [employer], Duration: 30 day, Stop date: 09/14/16 9:00:00 CSTNotes: Tablet should not be chewed or crushed. (Same as: Protonix) Insulin Glargine 5 unit, Route: Inactive [place] 100 UNT/ML SUB-Q, Daily, 2017 Medical Injectable Dosing Weight Center Solution 82, kg, Start date: 08/16/16 9:00:00 [employer], Duration: 30 day, Stop date: 09/14/16 9:00:00 [employer] Docusate Sodium 1 tab, Route: No Longer [place] 50 MG / PO, Drug Form: Active 2017 Medical sennosides, [facility] TAB, Dosing Center 8.6 MG Oral Weight 82, kg, Tablet BID, Start date: 08/16/16 9:00:00 [employer], Duration: 30 day, Stop date: 09/14/16 17:00:00 CSTNotes: (Same as Senokot-S) Equiv. to Nicolasa-Colace. Insulin, Aspart, 2 unit, 0.02 mL, No Longer [place] Human Route: SUB-Q, Active 2016 Medical Drug form: SOLN, Center Sliding Scale, Dosing Weight 82, kg, PRN Blood Glucose Results, Start date: 08/16/16 4:31:00 [employer], Duration: 30 day, Stop date: 09/15/16 4:30:00 [...] Blood Glucose Results, Start date: 08/16/16 4:31:00 [employer], Duration: 30 day, Stop date: 09/15/16 4:30:00 [employer] Dextrose 50% 12.5 gm, 25 mL, No Longer [place] Syringe Route: IVP, Drug Active 2016 Medical Form: INJ, Center Dosing Weight 82, kg, PRN, PRN Blood Glucose Results, Start date: 08/16/16 4:31:00 [employer], Duration: 30 day, Stop date: 09/15/16 4:30:00 [employer] heparin additive 500 mL, Rate: No Longer [place] 25,000 unit [14 20.68 ml/hr, Active 2017 Medical unit/kg/hr] + Infuse over: Center Premix Diluent 24.2 hr, Route: Dextrose 5% 500 IV, Dosing mL Weight 73.84 kg, Total Volume: 500 mL, Start date: 08/16/16 4:31:00 [employer], Duration: 30 day, Stop date: 09/15/16 4:30:00 [employer] Magnesium 1 gm, 100 mL, Inactive [place] Sulfate Route: IV, Drug 2016 Medical form: INJ, ONCE, Center Dosing Weight 82, kg, Start date: 08/16/16 3:19:00 [employer], Stop date: 08/16/16 3:19:00 CSTNotes: WASTE: F/P - Sink; E - Municipal Trash Bin Magnesium 2 gm, Route: Inactive [place] Sulfate IVPB, Drug form: 2016 Medical INJ, ONCE, Center Dosing Weight 82, kg, Start date: 08/16/16 3:18:00 [employer], Duration: 2 hr, Stop date: 08/16/16 3:18:00 [employer] Norepinephrine 8 mg, 8 mL, No Longer [...] -See Comment, Agitation, Start date: 08/16/16 1:49:00 [employer], Duration: 30 day, Stop date: 09/15/16 1:48:00 CSTNotes: (Same as: Versed) MEDICATION WASTE Product Size: 2 mg Product Wasted: ___ mg Fentanyl 1,000 microgram, Inactive [place] 20 mL, Rate: 2017 Medical Titrate, Start Center Dose: 50 microgram/hr, Titration: 25 microgram/hour every 15 minutes, Goal(s): RASS -2, Max Dose: 300 microgram/hr, Route: IV, Dosing Weight 82 kg, Total Volume: 20, Start date: 08/16/16 1:48:00 [employer], Durati... Allergies, Adverse Reactions, Alerts Substance Category Reaction Severity Reaction Status Date Comments Source type Reported Immunizations Immunization Date Given Site Status Last Updated Comments Source Results Order Name Results Value Reference Date Interpretation Comments Source Range CHEM PANEL Magnesium Lvl 1.9 mg/dL 1.8 - 2.4 08/[address] CHEM PANEL Calcium Lvl 9.2 mg/dL 8.5 - 10.5 08/[address] CHEM PANEL eGFR 85 08/18 Result Comment: The eGFR is calculated using the CKD-EPI formula. In most young, healthy individuals the eGFR will be >90 mL/ min/1.73m2. The eGFR declines with age. An eGFR of 60-89 may be normal in [facility] mL/min/1.7 some populations, particularly the elderly, for whom the CKD-EPI formula has not been extensively validated. Use of the eGFR is not recommended in the following populations: [address] Individuals with unstable creatinine concentrations, including [...] BUN 14 mg/dL 7 - 22 08/[address] CHEM PANEL Glucose Lvl 166 mg/dL 70 - 99 08/[address] CHEM PANEL Creatinine 0.92 mg/dL 0.50 - 08/18 [facility] Lvl 1.40 [facility] CHEM PANEL Sodium Lvl 140 meq/L 135 - 145 08/[address] CHEM PANEL Potassium Lvl 4.1 meq/L 3.5 - 5.1 08/[address] CHEM PANEL Chloride Lvl 102 meq/L 95 - 109 08/[address] CHEM PANEL CO2 29 meq/L 24 - 32 08/[address] CHEM PANEL AGAP 13.1 meq/L 10.0 - 08/18 [facility] 20.0 [facility] CHEM PANEL Phosphorus 3.7 mg/dL 2.5 - 4.5 08/[address] HEMATOLOGY Platelet 158 K/CMM 133 - 450 08/[address] HEMATOLOGY MPV 9.1 fL 7.4 - 10.4 08/[address] HEMATOLOGY RDW 17.0 % 11.5 - 08/18 14.5 [facility] HEMATOLOGY MCHC 32.1 g/dL 32.0 - 08/18 36.0 [facility] HEMATOLOGY Hct 38.7 % 42.0 - 08/18 54.0 [facility] HEMATOLOGY RBC 4.60 M/CMM 4.70 - 08/18 6.10 /2016 [facility] HEMATOLOGY WBC 8.0 K/CMM 3.7 - 10.4 08/18 [facility] HEMATOLOGY Hgb 12.4 g/dL 14.0 - 08/18 18.0 [facility] HEMATOLOGY MCH 27.0 pg 27.0 - 08/18 [facility] 31.0 [facility] HEMATOLOGY MCV 84.2 fL 80.0 - 08/18 [facility] 94.0 [facility] HEMATOLOGY Segs 70.2 % 45.0 - 08/18 [facility] 75.0 [facility] HEMATOLOGY Eosinophils # 0.3 K/CMM 0.0 - 0.5 08/18 [facility] HEMATOLOGY Monocytes # 0.5 K/CMM 0.0 - 0.8 08/18 [facility] HEMATOLOGY Monocytes 6.5 % 2.0 - 12.0 08/18 [facility] HEMATOLOGY Basophils 0.3 % 0.0 - 1.0 08/18 [facility] HEMATOLOGY Segs-Bands # 5.6 K/CMM 1.5 - 8.1 08/18 2016 [facility] HEMATOLOGY Eosinophils 3.4 % 0.0 - 4.0 08/18 2016 [facility] HEMATOLOGY Lymphocytes # 1.6 K/CMM 1.0 - 5.5 08/18 2016 [facility] HEMATOLOGY Lymphocytes 19.6 % 20.0 - 08/18 [facility] 40.0 [facility] Chest 1view Chest 1view EXAM: XR CHEST 1 VIEW 08/17 [facility] DX DX - [facility] DATE: 08/17/2016 6:46 PM [employer]ENT Read by: Ceasar Rodríguez MD Dictated Date/time: [...] eGFR of 60-89 may be normal in [facility] mL/min/1. some populations, particularly the elderly, for whom the CKD-EPI formula has not been extensively validated. Use of the eGFR is not recommended in the following populations: [address] Individuals with unstable creatinine concentrations, including [...] PANEL Creatinine 1.03 mg/dL 0.50 - 08/17 [facility] Lvl 1.40 [facility] CHEM PANEL Sodium Lvl 139 meq/L 135 - 145 08/[address] CHEM PANEL Potassium Lvl 4.3 meq/L 3.5 - 5.1 08/[address] CHEM PANEL Chloride Lvl 103 meq/L 95 - 109 08/[address] CHEM PANEL CO2 29 meq/L 24 - 32 08/[address] CHEM PANEL Calcium Lvl 8.6 mg/dL 8.5 - 10.5 08/[address] CHEM PANEL BUN 17 mg/dL 7 - 22 08/[address] CHEM PANEL Glucose Lvl 226 mg/dL 70 - 99 08/[address] CHEM PANEL AGAP 11.3 meq/L 10.0 - 08/17 [facility] CHEM PANEL Phosphorus 4.2 mg/dL 2.5 - 4.5 08/17 [facility] CHEM PANEL Globulin 3.6 g/dL 2.7 - 4.2 08/17 [facility] CHEM PANEL AGAP 10.8 meq/L 10.0 - 08/17 [facility] CHEM PANEL B/C Ratio 17 6 - 25 08/17 [facility] CHEM PANEL A/G Ratio 0.8 0.7 - 1.6 08/17 [facility] CHEM PANEL eGFR 69 08/17 Result Comment: The eGFR is calculated using the CKD-EPI formula. In most young, healthy individuals the eGFR will be >90 mL/ min/1.73m2. The eGFR declines with age. An eGFR of 60-89 may be normal in [facility] mL/min/1. some populations, particularly the elderly, for whom the CKD-EPI formula has not been extensively validated. Use of the eGFR is not recommended in the following populations: [address] Individuals with unstable creatinine concentrations, including [...] PANEL Creatinine 1.09 mg/dL 0.50 - 08/17 [facility] Lvl 1.40 [facility] CHEM PANEL Sodium Lvl 138 meq/L 135 - 145 08/[address] [place] [address] CHEM PANEL BUN 19 mg/dL 7 - 22 08/[address] CHEM PANEL Alk Phos 82 unit/L 39 - 136 08/[address] CHEM PANEL Bili Total 0.4 mg/dL 0.2 - 1.3 08/17 [facility] CHEM PANEL AST 16 unit/L 0 - 37 08/[address] CHEM PANEL Total Protein 6.5 g/dL 6.4 - 8.4 08/[address] CHEM PANEL Calcium Lvl 8.6 mg/dL 8.5 - 10.5 08/17 [facility] CHEM PANEL Potassium Lvl 4.8 meq/L 3.5 - 5.1 08/17 [facility] CHEM PANEL Chloride Lvl 104 meq/L 95 - 109 08/17 [facility] CHEM PANEL CO2 28 meq/L 24 - 32 08/17 [facility] CHEM PANEL Albumin Lvl 2.9 g/dL 3.5 - 5.0 08/17 [facility] CHEM PANEL ALT 12 unit/L 0 - 65 08/17 [facility] CHEM PANEL Glucose Lvl 220 mg/dL 70 - 99 08/17 [facility] CHEM PANEL Magnesium Lvl 1.9 mg/dL 1.8 - 2.4 08/17 [facility] HEMATOLOGY INR 1.18 0.85 - 08/17 1.17 [facility] HEMATOLOGY PT 15.3 s 12.0 - 08/17 14.7 [facility] HEMATOLOGY PTT 66.0 s 22.9 - 08/17 35.8 [facility] HEMATOLOGY Platelet 141 K/CMM 133 - 450 08/17 [facility] HEMATOLOGY MPV 8.5 fL 7.4 - 10.4 08/17 [facility] HEMATOLOGY RBC 4.14 M/CMM 4.70 - 08/17 6.10 [facility] HEMATOLOGY Hct 34.6 % 42.0 - 08/17 54.0 [facility] HEMATOLOGY WBC 6.9 K/CMM 3.7 - 10.4 08/17 [facility] HEMATOLOGY MCV 83.7 fL 80.0 - 08/17 94.0 [facility] HEMATOLOGY RDW 17.4 % 11.5 - 08/17 14.5 [facility] HEMATOLOGY MCHC 33.0 g/dL 32.0 - 08/17 36.0 [facility] HEMATOLOGY Hgb 11.4 g/dL 14.0 - 08/17 18.0 [facility] HEMATOLOGY MCH 27.7 pg 27.0 - 08/17 31.0 [facility] HEMATOLOGY Monocytes # 0.5 K/CMM 0.0 - 0.8 08/17 [facility] HEMATOLOGY Lymphocytes # 2.1 K/CMM 1.0 - 5.5 08/17 [facility] HEMATOLOGY Eosinophils # 0.3 K/CMM 0.0 - 0.5 08/17 [facility]2016 [facility] HEMATOLOGY Segs-Bands # 4.0 K/CMM 1.5 - 8.1 08/17 [facility]2016 [facility] HEMATOLOGY Monocytes 6.8 % 2.0 - 12.0 08/17 [facility]2016 [facility] HEMATOLOGY Basophils 0.4 % 0.0 - 1.0 08/17 2016 [facility] HEMATOLOGY Eosinophils 4.3 % 0.0 - 4.0 08/17 2016 [facility] HEMATOLOGY Lymphocytes 30.0 % 20.0 - 08/17 [place] 40.0 [facility] HEMATOLOGY Segs 58.5 % 45.0 - 08/17 [facility] 75.0 [facility] PARATHYROID Ca Ion WB 1.11 1. - 08/17 [facility] PROFILE mMol/L 1. [facility] PARATHYROID Ca Norm WB 1.11 . - 08/17 [facility] PROFILE mMol/L 1. [facility] Chest 1view Chest 1view EXAM: XR CHEST 1 VIEW 08/17 - [facility] DX - [facility] This report was dictated by a Ingot Supervisor/Fellow. I have personally reviewed the images as Center well as the Resident's interpretation and agree with the findings. DATE: 08/17/2016 3:00 AM [employer]ENT Read by: Burke Berry (Fellow ) Resident: [...] Phosphorus 4.1 mg/dL 2.5 - 4.5 08/16 [facility] CHEM PANEL Magnesium Lvl 1.8 mg/dL 1.8 - 2.4 08/16 [facility] HEMATOLOGY PTT 63.3 s 22.9 - 08/16 35. [facility] HEMATOLOGY INR 1.17 0.85 - 08/16 1. [facility] HEMATOLOGY PT 15.1 s 12.0 - 08/16 14. [facility] URINE CHEM U Magnesium null 08/16 Result Comment: [facility] result was 24.4 notified Roshan Looney 08/17/2016 21:27. URINE CHEM U Chloride 143 meq/L 08/16 [facility] URINE CHEM U Potassium 33.9 meq/L 08/16 [facility] URINE CHEM U Sodium 115 meq/L 08/16 [facility] HEMATOLOGY Segs 71.2 % 45.0 - 08/16 [facility] 75.0 [facility] HEMATOLOGY Lymphocytes 18.2 % 20.0 - 08/16 40.0 [facility] HEMATOLOGY Monocytes 6.8 % 2.0 - 12.0 08/16 [facility] HEMATOLOGY Eosinophils 3.3 % 0.0 - 4.0 08/16 [facility] HEMATOLOGY Basophils 0.5 % 0.0 - 1.0 08/16 [facility] HEMATOLOGY Segs-Bands # 6.2 K/CMM 1.5 - 8.1 08/16 [facility] HEMATOLOGY Monocytes # 0.6 K/CMM 0.0 - 0.8 08/16 [facility] HEMATOLOGY Lymphocytes # 1.6 K/CMM 1.0 - 5.5 08/16 [facility] HEMATOLOGY Eosinophils # 0.3 K/CMM 0.0 - 0.5 08/16 [facility] HEMATOLOGY PTT 65.2 s 22.9 - 08/16 35.8 [facility] HEMATOLOGY INR 1.19 0.85 - 08/16 [facility] 1. [facility] HEMATOLOGY PT 15.4 s 12.0 - 08/16 [facility] 14. [facility] HEMATOLOGY MPV 8.9 fL 7.4 - 10.4 08/16 [facility] HEMATOLOGY Platelet 150 K/CMM 133 - 450 08/16 [facility] HEMATOLOGY RDW 17.2 % 11.5 - 08/16 [place] 14.5 [facility] HEMATOLOGY MCHC 32.3 g/dL 32.0 - 08/16 [place] 36.0 [facility] HEMATOLOGY MCH 26.8 pg 27.0 - 08/16 [place] 31.0 [facility] HEMATOLOGY Hct 35.9 % 42.0 - 08/16 [place] 54.0 [facility] HEMATOLOGY Hgb 11.6 g/dL 14.0 - 08/16 [place] 18.0 [facility] HEMATOLOGY MCV 83.0 fL 80.0 - 08/16 [place] 94.0 [facility] HEMATOLOGY RBC 4.32 M/CMM 4.70 - 08/16 [place] 6.10 [facility] HEMATOLOGY WBC 8.7 K/CMM 3.7 - 10.4 08/16 [facility] CARDIAC Troponin-I 0.13 ng/mL 0.00 - 08/16 [facility] ENZYMES 0.40 [facility] CARDIAC Total CK 39 unit/L 12 - 191 08/16 [facility] ENZYMES [facility] CARDIAC Troponin-T 0.026 0.000 - 08/16 [facility] ENZYMES ng/mL 0.100 [facility] CHEM PANEL Lactic Acid 1.5 mMol/L 0.5 - 2.2 08/16 [facility] Lv [facility] MYOGLOBIN Myoglobin 54 ng/mL 25 - 72 08/16 [facility] CHEM PANEL Lactic Acid 2.2 mMol/L 0.5 - 2.2 08/16 [facility] BACTERIAL - MRSA by PCR Positive 08/16 Result [facility] Comment: Medical *ABN* "Significant Center Findings (08/16/16 1:06 AM) called to Kya Krishna on 08/16/2016 at 13:44 by MARIO.Read Back OK." BLOOD BANK Antibody Scrn Negative 08/16 [place] RESULTS [facility] (08/16/16 1:06 AM) [place] BLOOD BANK ABO/Rh A NEG 08/16 [facility] RESULTS [facility] CARDIAC Troponin-I 0.05 ng/mL 0.00 - 08/16 [facility] ENZYMES 0.40 [facility] CARDIAC Total CK 40 unit/L 12 - 191 08/16 [facility] ENZYMES [facility] CARDIAC Troponin-T null 0.000 - 08/16 [facility] ENZYMES 0.100 [facility] CHEM PANEL A/G Ratio 1.0 0.7 - 1.6 08/16 [facility] CHEM PANEL Globulin 3.2 g/dL 2.7 - 4.2 08/16 [facility]2016 [facility] CHEM PANEL B/C Ratio 115 6 - 25 08/16 [facility]2016 [facility] CHEM PANEL Total Protein 6.4 g/dL 6.4 - 8.4 08/16 [facility] CHEM PANEL AST 6 unit/L 0 - 37 08/[address] CHEM PANEL Bili Total 0.4 mg/dL 0.2 - 1.3 08/16 [facility]2016 [facility] CHEM PANEL Albumin Lvl 3.2 g/dL 3.5 - 5.0 08/[address] CHEM PANEL Alk Phos 79 unit/L 39 - 136 08/[address] CHEM PANEL ALT 20 unit/L 0 - 65 08/16 [facility] [address] [place] [address] LIPIDS Chol 69 mg/dL <=199 08/16 [facility] mg/dL [facility] LIPIDS Trig 50 mg/dL <=149 08/16 [facility] mg/dL [facility] LIPIDS HDL 33 mg/dL >=61 mg/dL 08/16 [facility] LIPIDS LDL 26 mg/dL <=99 mg/dL 08/16 [facility] (Calculated) [facility] LIPIDS CHD Risk 2.09 4.00 - 08/16 [facility] 7.30 [facility] LIPIDS VLDL 10 08/16 [facility] MYOGLOBIN Myoglobin 37 ng/mL 25 - 72 08/[address] PARATHYROID Ca Ion WB 1.33 1.05 - 08/16 [facility] PROFILE mMol/L 1. [facility] PARATHYROID Ca Norm WB 1.25 1.05 - 08/16 [facility] PROFILE mMol/L 1. [facility] SPECIAL Hgb A1C 6.5 % <=5.6 % 08/16 [facility] CHEMISTRY [facility] URINE AND UA <=1.0 0.1 - 1.0 08/16 [facility] STOOL Urobilinogen mg/dL [facility] URINE AND UA Turbidity Clear Clear 08/16 [facility] (08/16/16 1:06 AM) [place] URINE AND UA Spec Grav 1.016 <=1.030 08/[address] URINE AND UA Protein Negative Negative 08/16 [facility] mg/dL mg/dL /2016 [facility] URINE AND UA pH 5.5 5.0 - 8.0 08/[address] URINE AND UA Color Yellow Yellow 08/16 [facility] *NA* [place] (08/16/16 1:06 AM) URINE AND UA CaOx Kelli Occasional None Seen 08/16 [facility] STOOL /HPF /HPF /2016 [facility] URINE AND UA WBC 2 /HPF 0 - 5 08/16 [facility]2016 [facility] URINE AND UA Mucus Few /LPF None Seen 08/16 [facility] /LPF /2016 [facility] URINE AND UA Leuk Est Negative Negative 08/16 [facility]2016 [facility] (08/16/16 1:06 AM) [place] URINE AND UA RBC 1 /HPF 0 - 2 08/16 [facility]2016 [facility] URINE AND UA Blood Negative Negative 08/16 [facility] (08/16/16 1:06 AM) [place] URINE AND UA Glucose 50 mg/dL Negative 08/16 [facility] mg/dL /2016 [facility] URINE AND UA Bili Negative Negative 08/16 [facility] *NA* [place] (08/16/16 1:06 AM) URINE AND UA Ketones Negative Negative 08/16 [facility] mg/dL mg/dL [facility] URINE AND UA Nitrite Negative Negative 08/16 [facility] (08/16/16 1:06 AM) [place] URINE AND UA Sq Epi None Seen 08/[address] URINE AND UA Hyal Cast 4 /LPF 0 - 2 08/[address] Abdomen 1 v Abdomen 1 v EXAM: XR ABDOMEN 1 VIEW 08/16 - [facility] for for Placement /2016 - Medical Placement DX Center DX DATE: 08/16/2016 2:18 AM [employer] RENTAL AGENT Read by: Alberto Mak MD Dictated Date/time: [...] junction. 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 TECHNIQUE: [...] Date Comments Source Respitory Rate 20 08/18/2016 [facility] Systolic (mm Hg) 107 08/18/2016 [facility] Diastolic (mm Hg) 65 08/18/2016 [facility] Systolic (mm Hg) 93 08/18/2016 [facility] Diastolic (mm Hg) 55 08/18/2016 [facility] Respitory Rate 19 08/18/2016 [facility] Systolic (mm Hg) 109 08/18/2016 [facility] Diastolic (mm Hg) 55 08/18/2016 [facility] Respitory Rate 18 08/18/2016 [facility] Temperature Oral (F) 98.3 F 08/18/2016 [facility] Temperature Oral (F) 97.9 F 08/18/2016 [facility] Temperature Oral (F) 96.9 F 08/18/2016 [facility] Height 172.72 cm 08/16/2016 [facility] Height 172.72 cm 08/16/2016 [facility] Height 172.72 cm 08/16/2016 [facility] Weight 82 08/16/2016 [facility] BMI Calculated 27.49 08/16/2016 [facility] Encounters Location Location Encounter Encounter Reason Attending ADM DC Status Source Details Type Number For Provider Date Date [facility] [id number] [place] 08/16 08/18 [facility] Joe Harvey /2016 [facility] Procedures Procedure Code Date Perfomer Comments Source Pancreas [id number] Part of [facility] excision<sup>1</ pancreas was Medical sup> removed due to Center excess ETOH.
[2018-12-30 14:29] LABS: Absolute Lymphocytes (CBC) 0.5 K/uL (0.7-4.9); Absolute Monocytes 0.4 K/uL (0.1-1.3); Absolute Neutrophil 3.4 K/uL (1.8-8.0); Basophils % 0.7 % (0-1.3); Eosinophils % 4.4 % (0-4.4); Lymphocytes % 11.9 % (15.3-44.8); MPV 8.8 fL (7.6-11.3); Monocytes % 8.8 % (3.3-12.3); RBC Red Blood Cell Count 3.88 M/uL (4.33-5.43)
[2018-12-30 14:43] LABS: Albumin 2.8 g/dL (3.4-5.0); Bilirubin Direct 0.2 mg/dL (0-0.2); Bilirubin Total 0.4 mg/dL (0.2-1.0); Potassium 4.5 mmol/L (3.5-5.1)
--- NOTE | 2018-12-30 15:23 | RAD REPORT ---
EXAM DESCRIPTION: CT - Stone Protocol - 12/30/2018 2:46 pm CLINICAL HISTORY: Abdominal pain. COMPARISON: 2008 TECHNIQUE: Computed axial tomography of the abdomen pelvis was obtained without oral or IV contrast. Lack of IV and oral contrast limits evaluation of solid organs, bowel, and vessels. Coronal reformat óscar images were obtained and reviewed. All CT scans are performed using dose optimization technique as appropriate and may include automated exposure control or mA/KV adjustment according to patient size. FINDINGS: A 2 millimeter right renal calculus without hydronephrosis. A left renal calculus is not n oted An ureteral calculus is not noted. A bladder calculus is not present. There is little pancreatic tissue. Multiple metallic clips left upper quadrant Gallstones without gallbladder wall thickening Liver, spleen and right adrenal gland grossly normal Small left adrenal mass unchanged probably an adenoma A filter is present within the inferior vena cava There is no evidence of diverticulitis. 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
[2018-12-30 17:10] LABS: Urine Blood TRACE (NEG); Urine Glucose NEGATIVE (NEG); Urine Protein NEGATIVE (NEG)
[2018-12-30 17:23] LABS: Urine Bacteria >50 /HPF (NONE SEEN); Urine Culture Reflex Order REFLEXED; Urine RBC <5 /HPF (NONE SEEN)
[2018-12-30] MEDS ORDERED: TRAMADOL HCL 50 MG TAB ONE (17:31)
[2018-12-30] MEDS ORDERED: CEFTRIAXONE/SWI 1gm 1 GM/10 ML SYR ONE (17:31)
[2018-12-30] MEDS ORDERED: NA CHLORIDE 0.9% 250 ML ONE (17:31)
--- NOTE | 2018-12-30 17:39 | ER ---
Nurse's Notes [facility] Name: Valentín Senior Jr Age: 73 yrs Sex: Male : 1945 Arrival Date: 12/30/2018 Time: 13:34 Bed 15 Private MD: Diagnosis: Urinary tract infection, site not specified;Low back pain Presentation: 12/30 13:37 Presenting complaint: Patient states: i started having low back pain yesterday on my tw2 right side in the morning, but i think its my kidneys, and one episode of diarrhea. Transition of care: patient was not received from another setting of care. Onset of symptoms was December 30, 2018. Risk Assessment: Do you want to hurt yourself or someone else? Patient reports no desire to harm self or others. Initial Sepsis Screen: Does the patient meet any 2 criteria? No. Patient's initial sepsis screen is negative. Does the patient have a suspected source of infection? No. Patient's initial sepsis screen is negative. Care prior to arrival: None. 13:37 Method Of Arrival: Wheelchair tw2 13:42 Acuity: ILANA 2 tw2 Triage Assessment: 13:39 General: Appears in no apparent distress. Behavior is calm, cooperative, appropriate tw2 for age. Pain: Complains of pain in right low back. 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 13:39 GI: Reports diarrhea. tw2 Historical: - Allergies: 13:41 Morphine; tw2 - Home Meds: 13:41 atorvastatin Oral once daily [Active]; artificial tears(hypromellose) 0.4 % Opht drop 1 tw2 drop right for Dry Eye [Active]; calcium 250 mg/ vitamin D 125 Tab [Active]; Creon 6,000-19,000 -30,000 unit Oral cpDR 1 cap 4 x day [Active]; docusate calcium 240 mg Oral cap 1 cap once daily [Active]; Docusate Sodium Oral [Active]; finasteride 5 mg Oral tab 1 tab once daily [Active]; Eliquis 5 mg Oral tab 1 tab 2 times per day [Active]; Furosemide Oral [Active]; apixaban 5 mg Oral 1 tab 2 times per day [Active]; hydroxyzine pamoate 50 mg Oral cap 1 cap at bedtime [Active]; insulin detemir 30 units SQ daily [Active]; insulin detemir subcutaneous daily [Active]; Insulin Glargine insulin aspartate Flexpen Sub-Q 12 units before meals [Active]; latanoprost ,005 % OPH Soln [Active]; loratadine 10 mg Oral tab 1 tab once daily [Active]; Lyrica Oral [Active]; insulin aspart subcutaneous daily [Active]; omeprazole 20 mg Oral cpDR 1 cap once daily [Active]; oxybutynin chloride 5 mg Oral tab 1 tab 3 times per day [Active]; metoprolol tartrate 25 mg Oral tab 0.5 tab 2 times per day [Active]; Oxybutynin Chloride Oral [Active]; pregabalin 150 mg cap Oral 3 times per day [Active]; Ranitidine Oral [Active]; pantoprazole 40 mg Oral TbEC 1 tab 2 times per day [Active]; tamsulosin 0.4 mg Oral cp24 1 cap once daily [Active]; simvastatin 10 mg Oral tab 1 tab once daily [Active]; ranitidine HCl 300 mg Oral cap [Active]; tiotropium 18 mcg INHL CAP 30 daily [Active]; lidocaine 5% patch [Active]; duloxetine Oral once daily [Active]; Amiodarone Oral once daily [Active]; - PMHx: 13:41 CVA; Diabetes - IDDM; Hernia; Pacemaker; CAD; Atrial Fib; Pancreatitis; Pneumonia; tw2 - Immunization history:: Adult Immunizations. - Social history:: Smoking status: Patient/guardian denies using tobacco, Patient/guardian denies using. - Ebola Screening: : Patient denies travel to an Ebola-affected area in the 21 days before illness onset. Screenin:01 Abuse screen: Denies threats or abuse. Abuse screen: Denies threats or abuse. la1 Nutritional screening: No deficits noted. Tuberculosis screening: No symptoms or risk factors identified. Fall Risk None identified. Assessment: 14:00 General: Appears in no apparent distress. Behavior is calm, cooperative. Pain: la1 Complains of pain in back. Neuro: Level of Consciousness is awake, alert, obeys commands, Oriented to person, place, time, situation, Weakness in left. Cardiovascular: Capillary refill < 3 seconds Patient's skin is warm and dry. Respiratory: Airway is patent Respiratory effort is even, unlabored. GI: No signs and/or symptoms were reported involving the gastrointestinal system. : No signs and/or symptoms were reported regarding the genitourinary system. 15:19 Reassessment: Patient appears in no apparent distress at this time. No changes from la1 previously documented assessment. Patient and/or family updated on plan of care and expected duration. Pain level reassessed. Patient is alert, oriented x 3, equal unlabored respirations, skin warm/dry/pink. 17:10 Reassessment: Patient appears in no apparent distress at this time. No changes from la1 previously documented assessment. Patient and/or family updated on plan of care and expected duration. Pain level reassessed. Patient is alert, oriented x 3, equal unlabored respirations, skin warm/dry/pink. Vital Signs: 13:38 BP 111 / 62; Pulse 84; Resp 17; Temp 98.2(TE); Pulse Ox 92% on R/A; Weight 81.65 kg tw2 (R); Height 5 ft. 8 in. (172.72 cm); Pain 9/10; 15:55 BP 127 / 65; Pulse 59; Resp 16; Pulse Ox 98% on R/A; la1 13:38 Body Mass Index 27.37 (81.65 kg, 172.72 cm) tw2 13:38 pt states "i use o2 at 2L nc at home off and on" tw2 ED Course: 13:34 Patient arrived in ED. rg4 13:38 Triage completed. tw2 13:39 Arm band placed on. tw2 13:46 Abdoulaye Alvarado PA is PHCP. cp 13:46 Robert Guevara MD is Attending Physician. cp 14:00 Emilio Castillo, DEVON is Primary Nurse. la1 14:01 Bed in low position. la1 14:18 Inserted saline lock: 22 gauge in right antecubital area, using aseptic technique. la1 Blood collected. 14:48 CT Stone Protocol In Process Unspecified. EDMS 18:24 No provider procedures requiring assistance completed. IV discontinued. la1 Administered Medications: 17:30 Drug: Rocephin - (cefTRIAXone) 1 grams Route: IVPB; Infused Over: 30 mins; Site: right la1 antecubital; 17:48 Follow up: IV Status: Completed infusion la1 17:31 Drug: NS 0.9% 250 ml Route: IV; Rate: bolus; Site: right antecubital; la1 17:48 Follow up: IV Status: Completed infusion 17:31 Drug: UltRAM 50 mg Route: PO; la1 17:48 Follow up: Response: No adverse reaction; Pain is decreased la1 18:23 Follow up: Response: No adverse reaction la1 Outcome: 17:38 Discharge ordered by MD. cp 18:24 Discharged to home via wheelchair. la1 18:24 Condition: stable 18:24 Discharge instructions given to patient, family, Instructed on discharge instructions, follow up and referral plans. medication usage, Demonstrated understanding of instructions, follow-up care, medications, Prescriptions given X 3. 18:26 Discharged to home via wheelchair, with family. la1 18:26 Condition: stable 18:26 Discharge instructions given to patient, family, Instructed on discharge instructions, follow up and referral plans. medication usage, Demonstrated understanding of instructions, follow-up care, medications, Prescriptions given X 3. 18:27 Patient left the ED. [facility] Addendum: 01/02/2019 17:37 Addendum: Culture Results: Positive urine culture. No further action required. Bacteria i w sensitive to prescribed antibiotic. Phone call Attempt #1 culture report reviewed by Dr. Zuniga, no further action needed if pt has no urinary s/s. called pt, he has no urinary symptoms, and has been feeling better. Signatures: Dispatcher [employer] EDMS Lauren Vail RN RN Emilio Castillo RN RN la1 Abdoulaye Alvarado PA PA cp Wise, Tara, RN RN tw2 Shanice Elizabeth 4 Corrections: (The following items were deleted from the chart) 12/30 13:42 13:37 Acuity: ILANA 3 tw2 tw2
--- NOTE | 2018-12-30 17:39 | EDPHYS ---
Physician Documentation [facility] Name: Valentín Senior Jr Age: 73 yrs Sex: Male : 1945 Arrival Date: 12/30/2018 Time: 13:34 Bed 15 Private MD: ED Physician Robert Guevara HPI: 12/30 14:10 This 73 yrs old Male presents to ER via Wheelchair with complaints of Back cp Pain. 14:10 The patient presents with pain that is acute, with no known mechanism of injury. cp 14:10 The symptoms are located in the low back, right side worse. Onset: The symptoms/episode cp began/occurred yesterday. The pain does not radiate. Associated signs and symptoms: Pertinent positives: 1 episode of diarrhea, Pertinent negatives: abdominal pain, chest pain, constipation, fever, headache, hematuria, incontinence, urinary retention. The problem was sustained from unknown cause. Severity of symptoms: in the emergency department the symptoms are unchanged, despite home interventions. Historical: - Allergies: 13:41 Morphine; tw2 - Home Meds: 13:41 atorvastatin Oral once daily [Active]; artificial tears(hypromellose) 0.4 % Opht drop 1 tw2 drop right for Dry Eye [Active]; calcium 250 mg/ vitamin D 125 Tab [Active]; Creon 6,000-19,000 -30,000 unit Oral cpDR 1 cap 4 x day [Active]; docusate calcium 240 mg Oral cap 1 cap once daily [Active]; Docusate Sodium Oral [Active]; finasteride 5 mg Oral tab 1 tab once daily [Active]; Eliquis 5 mg Oral tab 1 tab 2 times per day [Active]; Furosemide Oral [Active]; apixaban 5 mg Oral 1 tab 2 times per day [Active]; hydroxyzine pamoate 50 mg Oral cap 1 cap at bedtime [Active]; insulin detemir 30 units SQ daily [Active]; insulin detemir subcutaneous daily [Active]; Insulin Glargine insulin aspartate Flexpen Sub-Q 12 units before meals [Active]; latanoprost ,005 % OPH Soln [Active]; loratadine 10 mg Oral tab 1 tab once daily [Active]; Lyrica Oral [Active]; insulin aspart subcutaneous daily [Active]; omeprazole 20 mg Oral cpDR 1 cap once daily [Active]; oxybutynin chloride 5 mg Oral tab 1 tab 3 times per day [Active]; metoprolol tartrate 25 mg Oral tab 0.5 tab 2 times per day [Active]; Oxybutynin Chloride Oral [Active]; pregabalin 150 mg cap Oral 3 times per day [Active]; Ranitidine Oral [Active]; pantoprazole 40 mg Oral TbEC 1 tab 2 times per day [Active]; tamsulosin 0.4 mg Oral cp24 1 cap once daily [Active]; simvastatin 10 mg Oral tab 1 tab once daily [Active]; ranitidine HCl 300 mg Oral cap [Active]; tiotropium 18 mcg INHL CAP 30 daily [Active]; lidocaine 5% patch [Active]; duloxetine Oral once daily [Active]; Amiodarone Oral once daily [Active]; - PMHx: 13:41 CVA; Diabetes - IDDM; Hernia; Pacemaker; CAD; Atrial Fib; Pancreatitis; Pneumonia; tw2 - Immunization history:: Adult Immunizations. - Social history:: Smoking status: Patient/guardian denies using tobacco, Patient/guardian denies using. - Ebola Screening: : Patient denies travel to an Ebola-affected area in the 21 days before illness onset. ROS: 14:15 Constitutional: Negative for body aches, chills, fever, poor PO intake. cp 14:15 Eyes: Negative for injury, pain, redness, and discharge. cp 14:15 ENT: Negative for drainage from ear(s), ear pain, sore throat, difficulty swallowing, difficulty handling secretions. 14:15 Cardiovascular: Negative for chest pain, palpitations. 14:15 Respiratory: Negative for cough, shortness of breath, wheezing. 14:15 Abdomen/GI: Negative for nausea, vomiting, constipation, anorexia, black/tarry stool, rectal bleeding. 14:15 Back: Positive for pain at rest, pain with movement, of the right low back. 14:15 : Negative for hematuria, difficulty urinating, testicular pain 14:15 Skin: Negative for cellulitis, rash. 14:15 Neuro: Negative for altered mental status, dizziness, headache, numbness, weakness. 14:15 All other systems are negative. Exam: 14:20 Constitutional: The patient appears in no acute distress, alert, awake, cp non-diaphoretic, non-toxic, well developed, well nourished, uncomfortable. 14:20 Head/Face: Normocephalic, atraumatic. cp 14:20 Eyes: Periorbital structures: appear normal, Conjunctiva: normal, no exudate, no injection, Sclera: no appreciated abnormality, Lids and lashes: appear normal, bilaterally. 14:20 ENT: External ear(s): are unremarkable, Nose: is normal, Mouth: is normal, Posterior pharynx: Airway: no evidence of obstruction, patent. 14:20 Neck: ROM/movement: is normal, is supple, without pain, no range of motions limitations, no nuchal rigidity. 14:20 Chest/axilla: Inspection: normal. 14:20 Cardiovascular: Rate: normal. 14:20 Respiratory: the patient does not display signs of respiratory distress, Respirations: normal, no use of accessory muscles, no retractions, no splinting, no tachypnea, labored breathing, is not present, Breath sounds: are clear throughout, no decreased breath sounds, no stridor, no wheezing. 14:20 Abdomen/GI: Inspection: abdomen appears normal, Bowel sounds: active, all quadrants, Palpation: soft, in all quadrants, mild abdominal tenderness, in the right lower quadrant and left lower quadrant, voluntary guarding, is not appreciated, involuntary guarding, is not appreciated. 14:20 Back: pain, that is moderate, of the right low back, vertebral tenderness, is not appreciated. 14:20 Skin: no rash present. 14:20 Neuro: Orientation: to person, place \\T\\ time. Mentation: is normal, Motor: moves all fours. Vital Signs: 13:38 BP 111 / 62; Pulse 84; Resp 17; Temp 98.2(TE); Pulse Ox 92% on R/A; Weight 81.65 kg tw2 (R); Height 5 ft. 8 in. (172.72 cm); Pain 9/10; 15:55 BP 127 / 65; Pulse 59; Resp 16; Pulse Ox 98% on R/A; la1 13:38 Body Mass Index 27.37 (81.65 kg, 172.72 cm) tw2 13:38 pt states "i use o2 at 2L nc at home off and on" tw2 MDM: 13:46 Patient medically screened. cp 15:00 Differential diagnosis: Cholelithiasis chronic back pain, ruptured disc, cp Ureterolithiasis vertebral fracture, pyelonephritis. 17:37 Data reviewed: vital signs, nurses notes, lab test result(s), radiologic studies, CT cp scan. 17:37 Counseling: I had a detailed discussion with the patient and/or guardian regarding: the cp historical points, exam findings, and any diagnostic results supporting the discharge/admit diagnosis, lab results, radiology results, to return to the emergency department if symptoms worsen or persist or if there are any questions or concerns that arise at home. Response to treatment: the patient's symptoms have mildly improved after treatment, and as a result, I will discharge patient, administer antibiotics Rocephin. 12/30 14:06 Order name: Basic Metabolic Panel 12/30 14:06 Order name: CBC with Diff 12/30 14:06 Order name: Creatinine for Radiology; Complete Time: 16:38 12/30 16:38 Interpretation: Abnormal: CRE 1.41; GFR 50. 12/30 14:06 Order name: Hepatic Function; Complete Time: 16:38 12/30 14:06 Order name: Lipase; Complete Time: 16:38 12/30 14:07 Order name: Basic Metabolic Panel; Complete Time: 16:38 EDNJ 12/30 14:07 Order name: CBC with Automated Diff; Complete Time: 16:38 EDNJ 12/30 17:36 Interpretation: Normal except: RBC 3.88; HGB 11.6; HCT 36.0; REHANA% 74.2; LYM% 11.9; LYMA cp 0.5. 12/30 14:11 Order name: CT Stone Protocol; Complete Time: 16:38 12/30 16:40 Order name: Urine Microscopic Only; Complete Time: 17:36 12/30 17:04 Order name: Urine Dipstick--Ancillary (enter results); Complete Time: 17:36 12/30 17:36 Interpretation: Normal except: UBLD TRACE; U NIT POSITIVE; UESTR 2+. 12/30 17:28 Order name: Urine Culture [facility] 12/30 14:06 Order name: IV Saline Lock; Complete Time: 14:18 12/30 14:06 Order name: Labs collected and sent; Complete Time: 14:18 12/30 16:40 Order name: Urine Dipstick-Ancillary (obtain specimen); Complete Time: 16:54 cp Administered Medications: 17:30 Drug: Rocephin - (cefTRIAXone) 1 grams Route: IVPB; Infused Over: 30 mins; Site: right la1 antecubital; 17:48 Follow up: IV Status: Completed infusion la1 17:31 Drug: NS 0.9% 250 ml Route: IV; Rate: bolus; Site: right antecubital; la1 17:48 Follow up: IV Status: Completed infusion la1 17:31 Drug: UltRAM 50 mg Route: PO; la1 17:48 Follow up: Response: No adverse reaction; Pain is decreased la1 18:23 Follow up: Response: No adverse reaction la1 Disposition: 12/31 13:55 Co-signature as Attending Physician, Robert Guevara MD. rn Disposition: 12/30/18 17:38 Discharged to Home. Impression: Urinary tract infection, site not specified, Low back pain. - Condition is Stable. - Discharge Instructions: Back Pain, Adult, Urinary Tract Infection, Adult. - Prescriptions for Augmentin 875- 125 mg Oral Tablet - take 1 tablet by ORAL route every 12 hours for 10 days; 20 tablet. Zofran 4 mg Oral Tablet - take 1 tablet by ORAL route every 12 hours As needed; 20 tablet. Tramadol 50 mg Oral Tablet - take 1 tablet by ORAL route every 8 hours as needed; 15 tablet. - Medication Reconciliation Form, Thank You Letter, Antibiotic Education, Prescription Opioid Use form. - Follow up: Private Physician; When: 2 - 3 days; Reason: Recheck today's complaints. - Problem is new. - Symptoms have improved. Signatures: Dispatcher [employer] EDMS Robert Guevara MD MD rn Attema, Lee RN RN la1 Abdoulaye Alvarado PA PA cp Wise, Tara, RN RN tw2 Corrections: (The following items were deleted from the chart) 12/30 18:27 17:38 12/30/2018 17:38 Discharged to Home. Impression: Urinary tract infection, site la1 not specified; Low back pain. Condition is Stable. Forms are Medication Reconciliation Form, Thank You Letter, Antibiotic Education, Prescription Opioid Use. Follow up: Private Physician; When: 2 - 3 days; Reason: Recheck today's complaints. Problem is new. Symptoms have improved. cp
== END 2018-12-30 18:27 | disposition home or self-care (01) ==
LOC: ER 13:32
DX: N39.0 Urinary tract infection, site not specified (principal); E11.9 Type 2 diabetes mellitus without complications; I48.91 Unspecified atrial fibrillation; I25.10 Atherosclerotic heart disease of native coronary artery without angina pectoris; Z95.0 Presence of cardiac pacemaker
CPT/HCPCS: 96365; 87088; 85025; 87086; 80048; 36415; 80076; 87077; 87186; 83690; 76377; 74176; 99284; J0696; 81003; 81015

== ENCOUNTER 2019-01-07 10:38 | Emergency (ER) | payer OTHER ==
--- OUTSIDE RECORDS SUMMARY | 2019-01-07 10:43 | XMS REPORT | Continuity of Care Document ---
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 DYSRHYTHMIAS Active 08/16/[address] GIOVANNA Active 08/16/19 [facility] BILLING [address] [place] [address] Atrial Active Problem 08/21/2016 [facility] fibrillation [facility] CVA (<span Resolved Problem 08/21/2016 Had CVA in [facility] ID="[id number] 1992 which Medical ">Confirmed</spa left [facility] n>)<sup>1</sup> 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 He is using 1 stick for mobility Diabetes Active Problem 08/21/2016 On insulin [facility] mellitus<sup>2</ Medical sup> Center Pancreas Resolved Problem 08/21/2016 Had part of [facility] disorder<sup>3</ his Medical sup> pancreas Center removed due to excess ETOH. DYSTHYMIC Active [facility] Medications Medication Details Route Status Patient Ordering Order Source Instructions Provider Date bacitracin-polym 1 appl, Route: No Longer 08/19[facility] yxin B topical TOP, Daily, Drug Active 2016 Medical form: [place], [place] Start date: 08/19/16 9:00:00 EMISSION SPECIALIST, Duration: 30 day, Stop date: 09/17/16 9:00:00 CSTNotes: (Same As: Polysporin) Neosporin 1 appl, Route: Inactive 08/18[facility] TOP, Daily, Drug 2017 Medical form: [place], [place] Start date: 08/18/16 15:07:00 EMISSION SPECIALIST, Duration: 30 day, Stop date: 09/17/16 9:00:00 EMISSION SPECIALIST apixaban 5 MG 5 mg=1 tab, PO, Active 08/18[facility] Oral Tablet BID, # 60 tab, [...] Center metoprolol 25 mg=1 tab, PO, Inactive [facility] tartrate 25 mg BID, # 60 tab, 0 2017 Medical oral tablet Refill(s) Center atorvastatin 40 40 mg=1 tab, PO, Inactive [place] mg oral tablet Bedtime, # 30 2016 Medical tab, 0 Refill(s) Center apixaban 5 MG 5 mg=1 tab, PO, Inactive [facility] Oral Tablet BID, # 60 tab, 0 2017 Medical [Eliquis] Refill(s) Center tamsulosin 0.4 0.4 mg=1 cap, Inactive [place] mg oral capsule PO, Daily, # 30 2016 Medical cap, 0 Refill(s) Center Ranitidine 150 150 mg=1 tab, Inactive [place] MG Oral Tablet PO, BID, # 60 2017 Medical tab, 0 Refill(s) Center omeprazole 40 mg 40 mg=1 cap, PO, Inactive [facility] oral delayed Daily, # 30 cap, 2016 Medical release capsule 0 Refill(s) Center Metformin 500 mg=1 tab, Inactive [place] hydrochloride PO, BID-Meals, # 2017 Medical 500 MG Oral 180 tab, 0 Center Tablet Refill(s) Furosemide 20 MG 20 mg=1 tab, PO, Inactive [place] Oral Tablet Daily, # 30 tab, 2017 Medical 0 Refill(s) Center finasteride 5 mg 5 mg=1 tab, PO, Inactive [facility] oral tablet Daily, # 30 tab, 2017 Medical 0 Refill(s) Center DULoxetine 60 mg 60 mg=1 cap, PO, Inactive [place] oral delayed Daily, # 30 cap, 2017 Medical release capsule 0 Refill(s) Center apixaban 5 MG 5 mg=1 tab, PO, Inactive [facility] Oral Tablet BID, # 60 tab, [...] 20 MG 20 mg=1 tab, PO, Inactive [facility] Oral Tablet Daily, # 30 tab, 2017 Medical 0 Refill(s) Center finasteride 5 mg 5 mg=1 tab, PO, Inactive [facility] oral tablet Daily, # 30 tab, 2017 Medical 0 Refill(s) Center DULoxetine 60 mg 60 mg=1 cap, PO, Inactive [facility] oral delayed Daily, # 30 cap, 2017 Medical release capsule 0 Refill(s) Center metoprolol 25 mg=1 tab, PO, Inactive [facility] tartrate 25 mg BID, # 60 tab, 0 2017 Medical oral tablet Refill(s) Center omeprazole 40 mg 40 mg=1 cap, PO, Inactive [facility] oral delayed Daily, # 30 cap, 2017 Medical release capsule 0 Refill(s) Center atorvastatin 40 40 mg=1 tab, PO, Inactive [facility] mg oral tablet Bedtime, # 30 2017 Medical tab, 0 Refill(s) Center hydrOXYzine 25 mg=1 cap, PO, Inactive [facility] pamoate Q6H, PRN nausea, 2017 Medical # 20 cap, 0 Center Refill(s) Furosemide 20 MG 20 mg=1 tab, PO, Inactive [facility] Oral Tablet Daily, # 30 tab, 2017 Medical 0 Refill(s) Center finasteride 5 mg 5 mg=1 tab, PO, Inactive [facility] oral tablet Daily, # 30 tab, 2017 Medical 0 Refill(s) Center omeprazole 20 mg 20 mg=1 tab, PO, Inactive [facility] oral enteric BID, # 30 tab, 0 2017 Medical coated tablet Refill(s) [place] tamsulosin 0.4 0.4 mg=1 cap, Inactive [facility] mg oral capsule PO, Daily, # 30 2017 Medical cap, 0 Refill(s) [place] Omeprazole PO, Daily, 0 Inactive [facility] Refill(s) 2017 [facility] metoprolol 25 mg=1 tab, PO, Inactive [facility] tartrate 25 mg BID, # 180 tab, 2017 Medical oral tablet 0 Refill(s) [place] apixaban 5 MG 5 mg=1 tab, PO, Inactive [facility] Oral Tablet BID, 0 Refill(s) 2017 Medical [Eliquis] [place] Metformin 500 mg=1 tab, Inactive [facility] hydrochloride PO, BID-Meals, # 2017 Medical 500 MG Oral 30 tab, 0 [place] Tablet Refill(s) Ranitidine 150 150 mg=1 tab, Inactive 08/18[facility] MG Oral Tablet PO, BID, # 60 2017 Medical tab, 0 Refill(s) [place] DULoxetine 60 mg 60 mg=1 cap, PO, Inactive 08/18[facility] oral delayed Daily, # 30 cap, 2017 Medical release capsule 0 Refill(s) [place] simvastatin 10 10 mg=1 tab, PO, Inactive 08/18[facility] mg oral tablet Bedtime, # 30 2017 Medical tab, 0 Refill(s) [place] oxybutynin 5 mg 5 mg=1 tab, PO, Inactive [facility] oral tablet TID, PRN 2017 Medical Other-See Center Comments, # 30 tab, 0 Refill(s) Sodium Chloride 250 mL, 250 Inactive [facility] 0.154 MEQ/ML ml/hr, Infuse 2017 Medical Injectable Over: 1 hr, [place] Solution Route: IV, 250, Drug form: INJ, ONCE, Priority: STAT, Dosing Weight 82 kg, Start date: 08/18/16 8:56:00 EMISSION SPECIALIST, Duration: 1 doses or times, Stop date: 08/18/16 8:56:00 EMISSION SPECIALIST Tylenol 650 mg, 2 tab, Inactive [facility] Route: PO, Drug 2017 Medical form: TAB, Q6H, Center Dosing Weight 82, kg, PRN Pain Score 1-3, Start date: 08/18/16 8:52:00 EMISSION SPECIALIST, Duration: 30 day, Stop date: 09/17/16 8:51:00 CSTNotes: Do not exceed 4 gm/day. (Same as: Tylenol) Magnesium Oxide 800 mg, 2 tab, Inactive [facility] Route: PO, Drug 2016 Medical form: TAB, ONCE, Center Dosing Weight 82, kg, Start date: 08/18/16 8:49:00 EMISSION SPECIALIST, Stop date: 08/18/16 8:49:00 CSTNotes: (Same as: Mag-Ox 400) Magnesium oxide [id number] elemental magnesium Dose=____mg magnesium oxide (___mg elemental magnesium) Metoprolol 5 mg, 5 mL, Inactive [facility] Route: IV, Drug 2016 Medical form: INJ, ONCE, Center Dosing Weight 82, kg, Start date: 08/18/16 4:35:00 EMISSION SPECIALIST, Stop date: 08/18/16 4:35:00 CSTNotes: (Same as: Lopressor) Push over 2 minutes Robitussin 30 mg, Route: No Longer [facility] CoughGels PO, Q6H, Dosing Active 2016 Medical Weight 82, kg, Center Start date: 08/18/16 0:00:00 EMISSION SPECIALIST, Duration: 30 day, Stop date: 09/16/16 18:00:00 EMISSION SPECIALIST Eliquis 5 mg, 1 tab, No Longer [facility] Route: PO, Drug Active 2016 Medical form: TAB, Q12H, Center Dosing Weight 82, kg, Start date: 08/17/16 21:00:00 EMISSION SPECIALIST, Duration: 30 day, Stop date: 09/16/16 9:00:00 CSTNotes: Same as: Eliquis benzocaine-menth 1 lozenge, No Longer [facility] ol topical Route: MUCOUS Active 2016 Medical MEM, Drug Form: Center DANILO, Q2H, PRN Cough, Start date: 08/17/16 19:29:00 EMISSION SPECIALIST, Duration: 30 day, Stop date: 09/16/16 19:28:00 CSTNotes: Cepacol lozenges Dispense 1 box=16 lozenges (Same As: Cepacol Lozenges) Albuterol 0.833 3 ml, Route: No Longer [place] MG/ML / NEB, Drug Form: Active 2017 Medical Ipratropium SOLN, Dosing Center [place] 0.167 Weight 82, kg, MG/ML Inhalant PRN, PRN Solution Respiratory [DuoNeb] Protocol, Start date: 08/17/16 18:46:00 EMISSION SPECIALIST, Duration: 30 day, Stop date: 09/16/16 18:45:00 CSTNotes: (Same as: Duoneb) metoprolol 12.5 mg, 1 tab, No Longer [place] tartrate Route: PO, Drug Active 2017 Medical form: TAB, Q8H, Center Dosing Weight 82, kg, Start date: 08/17/16 16:00:00 EMISSION SPECIALIST, Duration: 30 day, Stop date: 09/16/16 8:00:00 CSTNotes: (Same as: Lopressor) 12.5mg=1/4 X 50 mg tab. Metoprolol 5 mg, 5 mL, Inactive [place] Route: IV, Drug 2016 Medical form: INJ, ONCE, Center Dosing Weight 82, kg, Priority: STAT, Start date: 08/17/16 9:58:00 EMISSION SPECIALIST, Stop date: 08/17/16 9:58:00 CSTNotes: (Same as: Lopressor) Push over 2 minutes Acetaminophen 650 mg, 20.3 mL, Inactive [place] Route: PO, Drug 2016 Medical form: LIQ, ONCE, Center Dosing Weight 82, kg, Priority: STAT, Start date: 08/17/16 8:55:00 EMISSION SPECIALIST, Stop date: 08/17/16 8:55:00 CSTNotes: Max acetaminophen=40 00mg/day (4 gm/day). (Same as: Tylenol) Magnesium Oxide 400 mg, 1 tab, Inactive [place] Route: PO, Drug 2017 Medical form: TAB, ONCE, Center Dosing Weight 82, kg, Start date: 08/17/16 5:32:00 EMISSION SPECIALIST, Stop date: 08/17/16 5:32:00 CSTNotes: (Same as: Mag-Ox 400) Magnesium oxide [id number] elemental magnesium Dose=____mg magnesium oxide (___mg elemental magnesium) Tramadol 100 mg, 2 tab, Inactive [place] Route: PO, Drug 2017 Medical form: TAB, ONCE, Center Dosing Weight 82, kg, Start date: 08/17/16 4:22:00 EMISSION SPECIALIST, Stop date: 08/17/16 4:22:00 CSTNotes: Not to exceed 400mg/day. (Same As: Ultram) atorvastatin 40 mg, 1 tab, No Longer [place] Route: PO, Drug Active 2017 Medical form: TAB, Center Bedtime, Dosing Weight 82, kg, Start date: 08/16/16 21:00:00 EMISSION SPECIALIST, Duration: 30 day, Stop date: 09/14/16 21:00:00 CSTNotes: (Same as: Lipitor) insulin detemir 10 unit, 0.1 mL, No Longer [place] Route: SUB-Q, Active 2016 Medical Drug form: SOLN, Center Daily, Dosing Weight 82, kg, Start date: 08/16/16 9:00:00 EMISSION SPECIALIST, Duration: 30 day, Stop date: 09/14/16 9:00:00 CSTNotes: Same as Levemir Do not hold insulin without contacting prescriber WASTE: F/P - Black; E - Municipal Trash Bin "single patient use only" Protonix 40 mg, 1 tab, Inactive [place] Route: PO, Drug 2016 Medical form: ECTAB, Center Daily, Dosing Weight 82, kg, Start date: 08/16/16 9:00:00 EMISSION SPECIALIST, Duration: 30 day, Stop date: 09/14/16 9:00:00 CSTNotes: Tablet should not be chewed or crushed. (Same as: Protonix) Insulin Glargine 5 unit, Route: Inactive [place] 100 UNT/ML SUB-Q, Daily, 2017 Medical Injectable Dosing Weight Center Solution 82, kg, Start date: 08/16/16 9:00:00 EMISSION SPECIALIST, Duration: 30 day, Stop date: 09/14/16 9:00:00 EMISSION SPECIALIST Docusate Sodium 1 tab, Route: No Longer [place] 50 MG / PO, Drug Form: Active 2017 Medical sennosides, ASSISTED TAB, Dosing Center 8.6 MG Oral Weight 82, kg, Tablet BID, Start date: 08/16/16 9:00:00 EMISSION SPECIALIST, Duration: 30 day, Stop date: 09/14/16 17:00:00 CSTNotes: (Same as Senokot-S) Equiv. to Nicolasa-Colace. Insulin, Aspart, 2 unit, 0.02 mL, No Longer [place] Human Route: SUB-Q, Active 2016 Medical Drug form: SOLN, Center Sliding Scale, Dosing Weight 82, kg, PRN Blood Glucose Results, Start date: 08/16/16 4:31:00 EMISSION SPECIALIST, Duration: 30 day, Stop date: 09/15/16 4:30:00 [...] Blood Glucose Results, Start date: 08/16/16 4:31:00 EMISSION SPECIALIST, Duration: 30 day, Stop date: 09/15/16 4:30:00 EMISSION SPECIALIST Dextrose 50% 12.5 gm, 25 mL, No Longer [place] Syringe Route: IVP, Drug Active 2016 Medical Form: INJ, Center Dosing Weight 82, kg, PRN, PRN Blood Glucose Results, Start date: 08/16/16 4:31:00 EMISSION SPECIALIST, Duration: 30 day, Stop date: 09/15/16 4:30:00 EMISSION SPECIALIST heparin additive 500 mL, Rate: No Longer [place] 25,000 unit [14 20.68 ml/hr, Active 2017 Medical unit/kg/hr] + Infuse over: Center Premix Diluent 24.2 hr, Route: Dextrose 5% 500 IV, Dosing mL Weight 73.84 kg, Total Volume: 500 mL, Start date: 08/16/16 4:31:00 EMISSION SPECIALIST, Duration: 30 day, Stop date: 09/15/16 4:30:00 EMISSION SPECIALIST Magnesium 1 gm, 100 mL, Inactive [place] Sulfate Route: IV, Drug 2016 Medical form: INJ, ONCE, Center Dosing Weight 82, kg, Start date: 08/16/16 3:19:00 EMISSION SPECIALIST, Stop date: 08/16/16 3:19:00 CSTNotes: WASTE: F/P - Sink; E - Municipal Trash Bin Magnesium 2 gm, Route: Inactive [place] Sulfate IVPB, Drug form: 2016 Medical INJ, ONCE, Center Dosing Weight 82, kg, Start date: 08/16/16 3:18:00 EMISSION SPECIALIST, Duration: 2 hr, Stop date: 08/16/16 3:18:00 EMISSION SPECIALIST Norepinephrine 8 mg, 8 mL, No Longer [...] -See Comment, Agitation, Start date: 08/16/16 1:49:00 EMISSION SPECIALIST, Duration: 30 day, Stop date: 09/15/16 1:48:00 CSTNotes: (Same as: Versed) MEDICATION WASTE Product Size: 2 mg Product Wasted: ___ mg Fentanyl 1,000 microgram, Inactive [place] 20 mL, Rate: 2017 Medical Titrate, Start Center Dose: 50 microgram/hr, Titration: 25 microgram/hour every 15 minutes, Goal(s): RASS -2, Max Dose: 300 microgram/hr, Route: IV, Dosing Weight 82 kg, Total Volume: 20, Start date: 08/16/16 1:48:00 EMISSION SPECIALIST, Durati... Allergies, Adverse Reactions, Alerts Substance Category Reaction Severity Reaction Status Date Comments Source type Reported Immunizations Immunization Date Given Site Status Last Updated Comments Source Results Order Name Results Value Reference Date Interpretation Comments Source Range CHEM PANEL Magnesium Lvl 1.9 mg/dL 1.8 - 2.4 08/[address] CHEM PANEL Calcium Lvl 9.2 mg/dL 8.5 - 10.5 08/[address] CHEM PANEL eGFR 85 08/18 Result Comment: The eGFR is calculated using the CKD-EPI formula. In most young, healthy individuals the eGFR will be >90 mL/ min/1.73m2. The eGFR declines with age. An eGFR of 60-89 may be normal in [facility] mL/min/1.7 some populations, particularly the elderly, for whom the CKD-EPI formula has not been extensively validated. Use of the eGFR is not recommended in the following populations: [address] Individuals with unstable creatinine concentrations, including [...] BUN 14 mg/dL 7 - 22 08/[address] CHEM PANEL Glucose Lvl 166 mg/dL 70 - 99 08/[address] CHEM PANEL Creatinine 0.92 mg/dL 0.50 - 08/18 [facility] Lvl 1.40 [facility] CHEM PANEL Sodium Lvl 140 meq/L 135 - 145 08/[address] CHEM PANEL Potassium Lvl 4.1 meq/L 3.5 - 5.1 08/[address] CHEM PANEL Chloride Lvl 102 meq/L 95 - 109 08/[address] CHEM PANEL CO2 29 meq/L 24 - 32 08/[address] CHEM PANEL AGAP 13.1 meq/L 10.0 - 08/18 [facility] 20.0 [facility] CHEM PANEL Phosphorus 3.7 mg/dL 2.5 - 4.5 08/[address] HEMATOLOGY Platelet 158 K/CMM 133 - 450 08/[address] HEMATOLOGY MPV 9.1 fL 7.4 - 10.4 08/[address] HEMATOLOGY RDW 17.0 % 11.5 - 08/18 14.5 [facility] HEMATOLOGY MCHC 32.1 g/dL 32.0 - 08/18 36.0 [facility] HEMATOLOGY Hct 38.7 % 42.0 - 08/18 54.0 [facility] HEMATOLOGY RBC 4.60 M/CMM 4.70 - 08/18 6.10 /2016 [facility] HEMATOLOGY WBC 8.0 K/CMM 3.7 - 10.4 08/18 [facility] HEMATOLOGY Hgb 12.4 g/dL 14.0 - 08/18 18.0 [facility] HEMATOLOGY MCH 27.0 pg 27.0 - 08/18 [facility] 31.0 [facility] HEMATOLOGY MCV 84.2 fL 80.0 - 08/18 [facility] 94.0 [facility] HEMATOLOGY Segs 70.2 % 45.0 - 08/18 [facility] 75.0 [facility] HEMATOLOGY Eosinophils # 0.3 K/CMM 0.0 - 0.5 08/18 [facility] HEMATOLOGY Monocytes # 0.5 K/CMM 0.0 - 0.8 08/18 [facility] HEMATOLOGY Monocytes 6.5 % 2.0 - 12.0 08/18 [facility] HEMATOLOGY Basophils 0.3 % 0.0 - 1.0 08/18 [facility] HEMATOLOGY Segs-Bands # 5.6 K/CMM 1.5 - 8.1 08/18 2016 [facility] HEMATOLOGY Eosinophils 3.4 % 0.0 - 4.0 08/18 2016 [facility] HEMATOLOGY Lymphocytes # 1.6 K/CMM 1.0 - 5.5 08/18 2016 [facility] HEMATOLOGY Lymphocytes 19.6 % 20.0 - 08/18 [facility] 40.0 [facility] Chest 1view Chest 1view EXAM: XR CHEST 1 VIEW 08/17 [facility] DX DX - [facility] DATE: 08/17/2016 6:46 PM EMISSION SPECIALIST Read by: Ceasar Rodríguez MD Dictated Date/time: [...] eGFR of 60-89 may be normal in [facility] mL/min/1. some populations, particularly the elderly, for whom the CKD-EPI formula has not been extensively validated. Use of the eGFR is not recommended in the following populations: [address] Individuals with unstable creatinine concentrations, including [...] PANEL Creatinine 1.03 mg/dL 0.50 - 08/17 [facility] Lvl 1.40 [facility] CHEM PANEL Sodium Lvl 139 meq/L 135 - 145 08/[address] CHEM PANEL Potassium Lvl 4.3 meq/L 3.5 - 5.1 08/[address] CHEM PANEL Chloride Lvl 103 meq/L 95 - 109 08/[address] CHEM PANEL CO2 29 meq/L 24 - 32 08/[address] CHEM PANEL Calcium Lvl 8.6 mg/dL 8.5 - 10.5 08/[address] CHEM PANEL BUN 17 mg/dL 7 - 22 08/[address] CHEM PANEL Glucose Lvl 226 mg/dL 70 - 99 08/[address] CHEM PANEL AGAP 11.3 meq/L 10.0 - 08/17 [facility] CHEM PANEL Phosphorus 4.2 mg/dL 2.5 - 4.5 08/17 [facility] CHEM PANEL Globulin 3.6 g/dL 2.7 - 4.2 08/17 [facility] CHEM PANEL AGAP 10.8 meq/L 10.0 - 08/17 [facility] CHEM PANEL B/C Ratio 17 6 - 25 08/17 [facility] CHEM PANEL A/G Ratio 0.8 0.7 - 1.6 08/17 [facility] CHEM PANEL eGFR 69 08/17 Result Comment: The eGFR is calculated using the CKD-EPI formula. In most young, healthy individuals the eGFR will be >90 mL/ min/1.73m2. The eGFR declines with age. An eGFR of 60-89 may be normal in [facility] mL/min/1. some populations, particularly the elderly, for whom the CKD-EPI formula has not been extensively validated. Use of the eGFR is not recommended in the following populations: [address] Individuals with unstable creatinine concentrations, including [...] PANEL Creatinine 1.09 mg/dL 0.50 - 08/17 [facility] Lvl 1.40 [facility] CHEM PANEL Sodium Lvl 138 meq/L 135 - 145 08/[address] [place] [address] CHEM PANEL BUN 19 mg/dL 7 - 22 08/[address] CHEM PANEL Alk Phos 82 unit/L 39 - 136 08/[address] CHEM PANEL Bili Total 0.4 mg/dL 0.2 - 1.3 08/17 [facility] CHEM PANEL AST 16 unit/L 0 - 37 08/[address] CHEM PANEL Total Protein 6.5 g/dL 6.4 - 8.4 08/[address] CHEM PANEL Calcium Lvl 8.6 mg/dL 8.5 - 10.5 08/17 [facility] CHEM PANEL Potassium Lvl 4.8 meq/L 3.5 - 5.1 08/17 [facility] CHEM PANEL Chloride Lvl 104 meq/L 95 - 109 08/17 [facility] CHEM PANEL CO2 28 meq/L 24 - 32 08/17 [facility] CHEM PANEL Albumin Lvl 2.9 g/dL 3.5 - 5.0 08/17 [facility] CHEM PANEL ALT 12 unit/L 0 - 65 08/17 [facility] CHEM PANEL Glucose Lvl 220 mg/dL 70 - 99 08/17 [facility] CHEM PANEL Magnesium Lvl 1.9 mg/dL 1.8 - 2.4 08/17 [facility] HEMATOLOGY INR 1.18 0.85 - 08/17 1.17 [facility] HEMATOLOGY PT 15.3 s 12.0 - 08/17 14.7 [facility] HEMATOLOGY PTT 66.0 s 22.9 - 08/17 35.8 [facility] HEMATOLOGY Platelet 141 K/CMM 133 - 450 08/17 [facility] HEMATOLOGY MPV 8.5 fL 7.4 - 10.4 08/17 [facility] HEMATOLOGY RBC 4.14 M/CMM 4.70 - 08/17 6.10 [facility] HEMATOLOGY Hct 34.6 % 42.0 - 08/17 54.0 [facility] HEMATOLOGY WBC 6.9 K/CMM 3.7 - 10.4 08/17 [facility] HEMATOLOGY MCV 83.7 fL 80.0 - 08/17 94.0 [facility] HEMATOLOGY RDW 17.4 % 11.5 - 08/17 14.5 [facility] HEMATOLOGY MCHC 33.0 g/dL 32.0 - 08/17 36.0 [facility] HEMATOLOGY Hgb 11.4 g/dL 14.0 - 08/17 18.0 [facility] HEMATOLOGY MCH 27.7 pg 27.0 - 08/17 31.0 [facility] HEMATOLOGY Monocytes # 0.5 K/CMM 0.0 - 0.8 08/17 [facility] HEMATOLOGY Lymphocytes # 2.1 K/CMM 1.0 - 5.5 08/17 [facility] HEMATOLOGY Eosinophils # 0.3 K/CMM 0.0 - 0.5 08/17 [facility]2016 [facility] HEMATOLOGY Segs-Bands # 4.0 K/CMM 1.5 - 8.1 08/17 [facility]2016 [facility] HEMATOLOGY Monocytes 6.8 % 2.0 - 12.0 08/17 [facility]2016 [facility] HEMATOLOGY Basophils 0.4 % 0.0 - 1.0 08/17 2016 [facility] HEMATOLOGY Eosinophils 4.3 % 0.0 - 4.0 08/17 2016 [facility] HEMATOLOGY Lymphocytes 30.0 % 20.0 - 08/17 [place] 40.0 [facility] HEMATOLOGY Segs 58.5 % 45.0 - 08/17 [facility] 75.0 [facility] PARATHYROID Ca Ion WB 1.11 1. - 08/17 [facility] PROFILE mMol/L 1. [facility] PARATHYROID Ca Norm WB 1.11 . - 08/17 [facility] PROFILE mMol/L 1. [facility] Chest 1view Chest 1view EXAM: XR CHEST 1 VIEW 08/17 - [facility] DX - [facility] This report was dictated by a Product Coordinator/Fellow. I have personally reviewed the images as Center well as the Resident's interpretation and agree with the findings. DATE: 08/17/2016 3:00 AM EMISSION SPECIALIST Read by: Burke Berry (Fellow ) Resident: Burke Berry (Fellow) Dictated Date/time: 08/17/16 08:51 Electronically Signed by: aTmra Parkinson MD 08/17/16 09:07 FINAL REPORT INDICATION: [...] Phosphorus 4.1 mg/dL 2.5 - 4.5 08/16 [facility] CHEM PANEL Magnesium Lvl 1.8 mg/dL 1.8 - 2.4 08/16 [facility] HEMATOLOGY PTT 63.3 s 22.9 - 08/16 35. [facility] HEMATOLOGY INR 1.17 0.85 - 08/16 1. [facility] HEMATOLOGY PT 15.1 s 12.0 - 08/16 14. [facility] URINE CHEM U Magnesium null 08/16 Result Comment: [facility] result was 24.4 notified Roshan Looney 08/17/2016 21:27. URINE CHEM U Chloride 143 meq/L 08/16 [facility] URINE CHEM U Potassium 33.9 meq/L 08/16 [facility] URINE CHEM U Sodium 115 meq/L 08/16 [facility] HEMATOLOGY Segs 71.2 % 45.0 - 08/16 [facility] 75.0 [facility] HEMATOLOGY Lymphocytes 18.2 % 20.0 - 08/16 40.0 [facility] HEMATOLOGY Monocytes 6.8 % 2.0 - 12.0 08/16 [facility] HEMATOLOGY Eosinophils 3.3 % 0.0 - 4.0 08/16 [facility] HEMATOLOGY Basophils 0.5 % 0.0 - 1.0 08/16 [facility] HEMATOLOGY Segs-Bands # 6.2 K/CMM 1.5 - 8.1 08/16 [facility] HEMATOLOGY Monocytes # 0.6 K/CMM 0.0 - 0.8 08/16 [facility] HEMATOLOGY Lymphocytes # 1.6 K/CMM 1.0 - 5.5 08/16 [facility] HEMATOLOGY Eosinophils # 0.3 K/CMM 0.0 - 0.5 08/16 [facility] HEMATOLOGY PTT 65.2 s 22.9 - 08/16 35.8 [facility] HEMATOLOGY INR 1.19 0.85 - 08/16 [facility] 1. [facility] HEMATOLOGY PT 15.4 s 12.0 - 08/16 [facility] 14. [facility] HEMATOLOGY MPV 8.9 fL 7.4 - 10.4 08/16 [facility] HEMATOLOGY Platelet 150 K/CMM 133 - 450 08/16 [facility] HEMATOLOGY RDW 17.2 % 11.5 - 08/16 [place] 14.5 [facility] HEMATOLOGY MCHC 32.3 g/dL 32.0 - 08/16 [place] 36.0 [facility] HEMATOLOGY MCH 26.8 pg 27.0 - 08/16 [place] 31.0 [facility] HEMATOLOGY Hct 35.9 % 42.0 - 08/16 [place] 54.0 [facility] HEMATOLOGY Hgb 11.6 g/dL 14.0 - 08/16 [place] 18.0 [facility] HEMATOLOGY MCV 83.0 fL 80.0 - 08/16 [place] 94.0 [facility] HEMATOLOGY RBC 4.32 M/CMM 4.70 - 08/16 [place] 6.10 [facility] HEMATOLOGY WBC 8.7 K/CMM 3.7 - 10.4 08/16 [facility] CARDIAC Troponin-I 0.13 ng/mL 0.00 - 08/16 [facility] ENZYMES 0.40 [facility] CARDIAC Total CK 39 unit/L 12 - 191 08/16 [facility] ENZYMES [facility] CARDIAC Troponin-T 0.026 0.000 - 08/16 [facility] ENZYMES ng/mL 0.100 [facility] CHEM PANEL Lactic Acid 1.5 mMol/L 0.5 - 2.2 08/16 [facility] Lv [facility] MYOGLOBIN Myoglobin 54 ng/mL 25 - 72 08/16 [facility] CHEM PANEL Lactic Acid 2.2 mMol/L 0.5 - 2.2 08/16 [facility] BACTERIAL - MRSA by PCR Positive 08/16 Result [facility] Comment: Medical *ABN* "Significant Center Findings (08/16/16 1:06 AM) called to Kya Krishna on 08/16/2016 at 13:44 by MARIO.Read Back OK." BLOOD BANK Antibody Scrn Negative 08/16 [place] RESULTS [facility] (08/16/16 1:06 AM) [place] BLOOD BANK ABO/Rh A NEG 08/16 [facility] RESULTS [facility] CARDIAC Troponin-I 0.05 ng/mL 0.00 - 08/16 [facility] ENZYMES 0.40 [facility] CARDIAC Total CK 40 unit/L 12 - 191 08/16 [facility] ENZYMES [facility] CARDIAC Troponin-T null 0.000 - 08/16 [facility] ENZYMES 0.100 [facility] CHEM PANEL A/G Ratio 1.0 0.7 - 1.6 08/16 [facility] CHEM PANEL Globulin 3.2 g/dL 2.7 - 4.2 08/16 [facility]2016 [facility] CHEM PANEL B/C Ratio 115 6 - 25 08/16 [facility]2016 [facility] CHEM PANEL Total Protein 6.4 g/dL 6.4 - 8.4 08/16 [facility] CHEM PANEL AST 6 unit/L 0 - 37 08/[address] CHEM PANEL Bili Total 0.4 mg/dL 0.2 - 1.3 08/16 [facility]2016 [facility] CHEM PANEL Albumin Lvl 3.2 g/dL 3.5 - 5.0 08/[address] CHEM PANEL Alk Phos 79 unit/L 39 - 136 08/[address] CHEM PANEL ALT 20 unit/L 0 - 65 08/16 [facility] [address] [place] [address] LIPIDS Chol 69 mg/dL <=199 08/16 [facility] mg/dL [facility] LIPIDS Trig 50 mg/dL <=149 08/16 [facility] mg/dL [facility] LIPIDS HDL 33 mg/dL >=61 mg/dL 08/16 [facility] LIPIDS LDL 26 mg/dL <=99 mg/dL 08/16 [facility] (Calculated) [facility] LIPIDS CHD Risk 2.09 4.00 - 08/16 [facility] 7.30 [facility] LIPIDS VLDL 10 08/16 [facility] MYOGLOBIN Myoglobin 37 ng/mL 25 - 72 08/[address] PARATHYROID Ca Ion WB 1.33 1.05 - 08/16 [facility] PROFILE mMol/L 1. [facility] PARATHYROID Ca Norm WB 1.25 1.05 - 08/16 [facility] PROFILE mMol/L 1. [facility] SPECIAL Hgb A1C 6.5 % <=5.6 % 08/16 [facility] CHEMISTRY [facility] URINE AND UA <=1.0 0.1 - 1.0 08/16 [facility] STOOL Urobilinogen mg/dL [facility] URINE AND UA Turbidity Clear Clear 08/16 [facility] (08/16/16 1:06 AM) [place] URINE AND UA Spec Grav 1.016 <=1.030 08/[address] URINE AND UA Protein Negative Negative 08/16 [facility] mg/dL mg/dL /2016 [facility] URINE AND UA pH 5.5 5.0 - 8.0 08/[address] URINE AND UA Color Yellow Yellow 08/16 [facility] *NA* [place] (08/16/16 1:06 AM) URINE AND UA CaOx Kelli Occasional None Seen 08/16 [facility] STOOL /HPF /HPF /2016 [facility] URINE AND UA WBC 2 /HPF 0 - 5 08/16 [facility]2016 [facility] URINE AND UA Mucus Few /LPF None Seen 08/16 [facility] /LPF /2016 [facility] URINE AND UA Leuk Est Negative Negative 08/16 [facility]2016 [facility] (08/16/16 1:06 AM) [place] URINE AND UA RBC 1 /HPF 0 - 2 08/16 [facility]2016 [facility] URINE AND UA Blood Negative Negative 08/16 [facility] (08/16/16 1:06 AM) [place] URINE AND UA Glucose 50 mg/dL Negative 08/16 [facility] mg/dL /2016 [facility] URINE AND UA Bili Negative Negative 08/16 [facility] *NA* [place] (08/16/16 1:06 AM) URINE AND UA Ketones Negative Negative 08/16 [facility] mg/dL mg/dL [facility] URINE AND UA Nitrite Negative Negative 08/16 [facility] (08/16/16 1:06 AM) [place] URINE AND UA Sq Epi None Seen 08/[address] URINE AND UA Hyal Cast 4 /LPF 0 - 2 08/[address] Abdomen 1 v Abdomen 1 v EXAM: XR ABDOMEN 1 VIEW 08/16 - [facility] for for Placement /2016 - Medical Placement DX Center DX DATE: 08/16/2016 2:18 AM EMISSION SPECIALIST Read by: Alberto Mak MD Dictated Date/time: [...] junction. Chest 1view Chest 1view 08/16 - [facility] - [facility] EXAM: XR CHEST 1 VIEW Read by: Rey Craig MD Dictated Date/time: 08/16/16 09:28 Electronically Signed by: Rey Craig MD 08/16/16 09:32 FINAL REPORT DATE: 08/16/2016 12:55 AM [facility]IST INDICATION: Abnormal chest sounds COMPARISON: None. TECHNIQUE: [...] Date Comments Source Respitory Rate 20 08/18/2016 [facility] Systolic (mm Hg) 107 08/18/2016 [facility] Diastolic (mm Hg) 65 08/18/2016 [facility] Systolic (mm Hg) 93 08/18/2016 [facility] Diastolic (mm Hg) 55 08/18/2016 [facility] Respitory Rate 19 08/18/2016 [facility] Systolic (mm Hg) 109 08/18/2016 [facility] Diastolic (mm Hg) 55 08/18/2016 [facility] Respitory Rate 18 08/18/2016 [facility] Temperature Oral (F) 98.3 F 08/18/2016 [facility] Temperature Oral (F) 97.9 F 08/18/2016 [facility] Temperature Oral (F) 96.9 F 08/18/2016 [facility] Height 172.72 cm 08/16/2016 [facility] Height 172.72 cm 08/16/2016 [facility] Height 172.72 cm 08/16/2016 [facility] Weight 82 08/16/2016 [facility] BMI Calculated 27.49 08/16/2016 [facility] Encounters Location Location Encounter Encounter Reason Attending ADM DC Status Source Details Type Number For Provider Date Date Visit [facility] [id number] [place] 08/16 08/18 [facility] Joe Harvey /2016 [facility] Procedures Procedure Code Date Perfomer Comments Source Pancreas [id number] Part of [facility] excision<sup>1</ pancreas was Medical sup> removed due to Center excess ETOH.
--- OUTSIDE RECORDS SUMMARY | 2019-01-07 10:44 | XMS REPORT ---
:1945 Author Organization [facility] Address [address] [place] [address] Care Team Providers Name Role Phone Unavailable Unavailable Unavailable Problems This patient has no known problems. Allergies, Adverse Reactions, Alerts This patient has no known allergies or adverse reactions. Medications This patient has no known medications.
[2019-01-07 11:30] LABS: Absolute Lymphocytes (CBC) 0.8 K/uL (0.7-4.9); Absolute Monocytes 0.5 K/uL (0.1-1.3); Absolute Neutrophil 7.6 K/uL (1.8-8.0); Basophils % 0.4 % (0-1.3); Eosinophils % 2.1 % (0-4.4); Hematocrit 42.1 % (39.6-49.0); Lymphocytes % 8.8 % (15.3-44.8); MPV 9.3 fL (7.6-11.3); Monocytes % 5.3 % (3.3-12.3); RBC Red Blood Cell Count 4.59 M/uL (4.33-5.43)
[2019-01-07 11:44] LABS: Potassium 3.6 mmol/L (3.5-5.1)
--- NOTE | 2019-01-07 11:50 | RAD REPORT ---
EXAM DESCRIPTION: CT - Head Brain Wo Cont - 01/07/2019 11:27 am CLINICAL HISTORY: Alteration of awareness/confusion COMPARISON: October 2017 TECHNIQUE: Computed axial tomography of the head was obtained. IV contrast was not requested. All CT scans are performed using dose optimization technique as appropriate and may include automated exposure control or mA/KV adjustment according to patient size. FINDINGS: An intracranial bleed is not seen . The ventricles are normal in caliber. No extra-axial fluid collection is noted.. 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 Fluid within the sinuses/ mastoids is not seen. IMPRESSION: No acute intracranial abnormality is seen. If patient's symptoms persist MRI of the bra in would be recommended.
--- NOTE | 2019-01-07 14:41 | EDPHYS ---
Physician Documentation [facility] Name: Valentín Senior Jr Age: 73 yrs Sex: Male : 1945 Arrival Date: 01/07/2019 Time: 10:51 Bed 5 Private MD: ED Physician Jose Heredia HPI: 01/07 11:49 This 73 yrs old Male presents to ER via EMS with complaints of Low Blood pm1 Sugar. 11:49 The patient or guardian reports hypoglycemia, that was potentially precipitated by pm1 taking insulin this AM without eating breakfast. Last meal last night, Treatment prior to arrival includes: EMS administered glucagon, checked blood sugar on arrival, which was 30, after treatment, the blood sugar was 51. Onset: The symptoms/episode began/occurred this morning. Associated signs and symptoms: Pertinent positives: AMS. Current symptoms: In the emergency department the patient's symptoms have resolved, the patient is alert and fully oriented, has normal speech, has normal responsiveness, has no confusion. The patient has experienced similar episodes in the past, several times. Historical: - Allergies: 11:07 Morphine; ph - Home Meds: 11:07 Amiodarone Oral once daily [Active]; apixaban 5 mg Oral 1 tab 2 times per day [Active]; ph artificial tears(hypromellose) 0.4 % Opht drop 1 drop right for Dry Eye [Active]; atorvastatin Oral once daily [Active]; calcium 250 mg/ vitamin D 125 Tab [Active]; Creon 6,000-19,000 -30,000 unit Oral cpDR 1 cap 4 x day [Active]; docusate calcium 240 mg Oral cap 1 cap once daily [Active]; Docusate Sodium Oral [Active]; duloxetine Oral once daily [Active]; Eliquis 5 mg Oral tab 1 tab 2 times per day [Active]; finasteride 5 mg Oral tab 1 tab once daily [Active]; Furosemide Oral [Active]; hydroxyzine pamoate 50 mg Oral cap 1 cap at bedtime [Active]; insulin aspart subcutaneous daily [Active]; insulin detemir subcutaneous daily [Active]; insulin detemir 30 units SQ daily [Active]; Insulin Glargine insulin aspartate Flexpen Sub-Q 12 units before meals [Active]; latanoprost ,005 % OPH Soln [Active]; lidocaine 5% patch [Active]; loratadine 10 mg Oral tab 1 tab once daily [Active]; Lyrica Oral [Active]; metoprolol tartrate 25 mg Oral tab 0.5 tab 2 times per day [Active]; omeprazole 20 mg Oral cpDR 1 cap once daily [Active]; oxybutynin chloride 5 mg Oral tab 1 tab 3 times per day [Active]; Oxybutynin Chloride Oral [Active]; pantoprazole 40 mg Oral TbEC 1 tab 2 times per day [Active]; pregabalin 150 mg cap Oral 3 times per day [Active]; Ranitidine Oral [Active]; ranitidine HCl 300 mg Oral cap [Active]; simvastatin 10 mg Oral tab 1 tab once daily [Active]; tamsulosin 0.4 mg Oral cp24 1 cap once daily [Active]; tiotropium 18 mcg INHL CAP 30 daily [Active]; - Immunization history:: Adult Immunizations unknown. - Social history:: Smoking status: Patient/guardian denies using tobacco. - Ebola Screening: : No symptoms or risks identified at this time. ROS: 11:49 Constitutional: Negative for fever, chills, and weight loss, Eyes: Negative for injury, pm1 pain, redness, and discharge, ENT: Negative for injury, pain, and discharge, Neck: Negative for injury, pain, and swelling, Cardiovascular: Negative for chest pain, palpitations, and edema, Respiratory: Negative for shortness of breath, cough, wheezing, and pleuritic chest pain, Abdomen/GI: Negative for abdominal pain, nausea, vomiting, diarrhea, and constipation, Back: Negative for injury and pain, : Negative for injury, bleeding, discharge, and swelling, MS/Extremity: Negative for injury and deformity, Skin: Negative for injury, rash, and discoloration. 11:49 Neuro: Positive for altered mental status, Negative for numbness, tingling, weakness. Exam: 11:49 Constitutional: This is a well developed, well nourished patient who is awake, alert, pm1 and in no acute distress. Head/Face: Normocephalic, atraumatic. Eyes: Pupils equal round and reactive to light, extra-ocular motions intact. Lids and lashes normal. Conjunctiva and sclera are non-icteric and not injected. Cornea within normal limits. Periorbital areas with no swelling, redness, or edema. ENT: Nares patent. No nasal discharge, no septal abnormalities noted. Tympanic membranes are normal and external auditory canals are clear. Oropharynx with no redness, swelling, or masses, exudates, or evidence of obstruction, uvula midline. Mucous membranes moist. Neck: Trachea midline, no thyromegaly or masses palpated, and no cervical lymphadenopathy. Supple, full range of motion without nuchal rigidity, or vertebral point tenderness. No Meningismus. Chest/axilla: Normal chest wall appearance and motion. Nontender with no deformity. No lesions are appreciated. Cardiovascular: Regular rate and rhythm with a normal S1 and S2. No gallops, murmurs, or rubs. Normal PMI, no JVD. No pulse deficits. Respiratory: Lungs have equal breath sounds bilaterally, clear to auscultation and percussion. No rales, rhonchi or wheezes noted. No increased work of breathing, no retractions or nasal flaring. Abdomen/GI: Soft, non-tender, with normal bowel sounds. No distension or tympany. No guarding or rebound. No evidence of tenderness throughout. Back: No spinal tenderness. No costovertebral tenderness. Full range of motion. Skin: Warm, dry with normal turgor. Normal color with no rashes, no lesions, and no evidence of cellulitis. MS/ Extremity: Pulses equal, no cyanosis. Neurovascular intact. Full, normal range of motion. 11:49 Neuro: Orientation: is normal, to person, place, time, situation, Mentation: is normal, Motor: is normal, moves all fours, Sensation: is normal, no obvious gross deficits. Vital Signs: 10:55 BP 100 / 60; Pulse 62; Resp 18; Temp 97.4; Pulse Ox 96% on R/A; ph 12:00 BP 98 / 71; Pulse 62; Resp 16; Pulse Ox 97% on R/A; ph 12:45 BP 110 / 61; Pulse 60; Resp 16; Pulse Ox 98% on R/A; ph 14:39 BP 107 / 64; Pulse 62; Resp 18; Pulse Ox 97% on R/A; ph 15:30 BP 110 / 62; Pulse 64; Resp 18; Temp 98.0; Pulse Ox 97% on R/A; ph MDM: 11:03 Patient medically screened. pm1 14:35 ED course: Patient informed me that he did not eat breakfast this AM but still took his pm1 insulin. His prepares his meals. [facility]. He informed me that he can follow up with PCP tomorrow. Due to patient's hypoglycemia and history of not eating with his insulin, advised the patient not to take his insulin unless he has food in front of him and he is ready to eat. 14:38 Data reviewed: vital signs. Data interpreted: Pulse oximetry: on room air is 98 %. pm1 Interpretation: normal. 14:38 Counseling: I had a detailed discussion with the patient and/or guardian regarding: the pm1 historical points, exam findings, and any diagnostic results supporting the discharge/admit diagnosis, lab results, radiology results, the need for outpatient follow up, to return to the emergency department if symptoms worsen or persist or if there are any questions or concerns that arise at home. 16:05 ED course: Discussed at length with his that the patient needs to eat food with pm1 his insulin. 01/07 10:54 Order name: Glucose, Ancillary Testing; Complete Time: 10:56 EDMS 01/07 11:02 Order name: CBC with Diff; Complete Time: 11:47 pm1 01/07 11:02 Order name: BMP; Complete Time: 11:47 pm1 01/07 11:10 Order name: glucometer results - FOR PT WITH NO ID; Complete Time: 11:47 ph 01/07 14:38 Order name: Glucose, Ancillary Testing; Complete Time: 15:02 EDMS 01/07 11:02 Order name: CT Head Brain wo Cont; Complete Time: 12:10 pm1 01/07 11:02 Order name: Diet Regular; Complete Time: 11:05 pm1 01/07 12:18 Order name: Diet Ada 1800 Abdiaziz; Complete Time: 12:20 bd 01/07 14:39 Order name: Glucose, Ancillary Testing; Complete Time: 15:02 EDMS Administered Medications: No medications were administered Point of Care Testing: Blood Glucose: 10:55 Blood Glucose: 486 mg/dL; ph 10:55 Blood Glucose: 51 mg/dL; ph 12:44 Blood Glucose: 202 mg/dL; ph 14:39 Blood Glucose: 380 mg/dL; ph 10:55 re-checked and BGL 51, will send to lab ph Ranges: Critical Glucose Levels:Adult <50 mg/dl or >400 mg/dl <40 mg/dl or >180 mg/dl Disposition: 01/07/19 14:40 Discharged to Home. Impression: Hypoglycemia, unspecified. - Condition is Stable. - Discharge Instructions: Hypoglycemia, Blood Glucose Monitoring, Adult. - Medication Reconciliation Form, Thank You Letter, Antibiotic Education, Prescription Opioid Use form. - Follow up: Emergency Department; When: As needed; Reason: Worsening of condition. Follow up: Private Physician; When: 2 - 3 days; Reason: Recheck today's complaints, Continuance of care, Re-evaluation by your physician. - Problem is new. - Symptoms have improved. Addendum: 01/09/2019 02:24 Co-signature as Attending Physician, Jose Heredia MD. g s Signatures: Dispatcher [employer] [facility] Lauren Vail RN RN iw Carolina Choi RN RN ph Juan A Dominguez, LEADER ASSEMBLER LEADER ASSEMBLER pm1 Jose Heredia MD MD Corrections: (The following items were deleted from the chart) 01/07 14:56 11:11 GLUCOSE+[id number].LAB.BRZ ordered. [facility] 16:38 14:40 01/07/2019 14:40 Discharged to Home. Impression: Hypoglycemia, unspecified. iw Condition is Stable. Forms are Medication Reconciliation Form, Thank You Letter, Antibiotic Education, Prescription Opioid Use. Follow up: Emergency Department; When: As needed; Reason: Worsening of condition. Follow up: Private Physician; When: 2 - 3 days; Reason: Recheck today's complaints, Continuance of care, Re-evaluation by your physician. Problem is new. Symptoms have improved. pm1
--- NOTE | 2019-01-07 14:41 | ER ---
Nurse's Notes [facility] Name: Valentín Senior Jr Age: 73 yrs Sex: Male : 1945 Arrival Date: 01/07/2019 Time: 10:51 Bed 5 Private MD: Diagnosis: Hypoglycemia, unspecified Presentation: 01/07 10:52 Presenting complaint: EMS states: Called by family for AMS/low blood sugar, BGL 30, 2 ph oral glucose given, increased to 40, 1 additional oral glucose given, then increased to 50, all other VSS, pt lethargic but will answer questions appropriately, states that he did take insulin this morning. Transition of care: patient was not received from another setting of care. Onset of symptoms was January 07, 2019. Risk Assessment: Do you want to hurt yourself or someone else? Patient reports no desire to harm self or others. Initial Sepsis Screen: Does the patient meet any 2 criteria? No. Patient's initial sepsis screen is negative. Does the patient have a suspected source of infection? No. Patient's initial sepsis screen is negative. Care prior to arrival: Glucose check: 30. 10:52 Method Of Arrival: EMS: [facility] ph 10:52 Acuity: ILANA 2 ph Historical: - Allergies: 11:07 Morphine; ph - Home Meds: 11:07 Amiodarone Oral once daily [Active]; apixaban 5 mg Oral 1 tab 2 times per day [Active]; ph artificial tears(hypromellose) 0.4 % Opht drop 1 drop right for Dry Eye [Active]; atorvastatin Oral once daily [Active]; calcium 250 mg/ vitamin D 125 Tab [Active]; Creon 6,000-19,000 -30,000 unit Oral cpDR 1 cap 4 x day [Active]; docusate calcium 240 mg Oral cap 1 cap once daily [Active]; Docusate Sodium Oral [Active]; duloxetine Oral once daily [Active]; Eliquis 5 mg Oral tab 1 tab 2 times per day [Active]; finasteride 5 mg Oral tab 1 tab once daily [Active]; Furosemide Oral [Active]; hydroxyzine pamoate 50 mg Oral cap 1 cap at bedtime [Active]; insulin aspart subcutaneous daily [Active]; insulin detemir subcutaneous daily [Active]; insulin detemir 30 units SQ daily [Active]; Insulin Glargine insulin aspartate Flexpen Sub-Q 12 units before meals [Active]; latanoprost ,005 % OPH Soln [Active]; lidocaine 5% patch [Active]; loratadine 10 mg Oral tab 1 tab once daily [Active]; Lyrica Oral [Active]; metoprolol tartrate 25 mg Oral tab 0.5 tab 2 times per day [Active]; omeprazole 20 mg Oral cpDR 1 cap once daily [Active]; oxybutynin chloride 5 mg Oral tab 1 tab 3 times per day [Active]; Oxybutynin Chloride Oral [Active]; pantoprazole 40 mg Oral TbEC 1 tab 2 times per day [Active]; pregabalin 150 mg cap Oral 3 times per day [Active]; Ranitidine Oral [Active]; ranitidine HCl 300 mg Oral cap [Active]; simvastatin 10 mg Oral tab 1 tab once daily [Active]; tamsulosin 0.4 mg Oral cp24 1 cap once daily [Active]; tiotropium 18 mcg INHL CAP 30 daily [Active]; - Immunization history:: Adult Immunizations unknown. - Social history:: Smoking status: Patient/guardian denies using tobacco. - Ebola Screening: : No symptoms or risks identified at this time. Screenin:46 Abuse screen: Denies threats or abuse. Denies injuries from another. Nutritional ph screening: No deficits noted. Tuberculosis screening: No symptoms or risk factors identified. Fall Risk None identified. Assessment: 10:50 General: Appears in no apparent distress. comfortable, unkempt, Behavior is drowsy, ph listless. Pain: Denies pain. Neuro: Level of Consciousness is lethargic, listless, Oriented to person, place, situation. Cardiovascular: Capillary refill < 3 seconds in bilateral fingers. Respiratory: Airway is patent Respiratory effort is even, unlabored. GI: Abdomen is round non-distended, Bowel sounds present X 4 quads. Patient currently denies abdominal pain, diarrhea, nausea, vomiting. Derm: Skin is intact, Skin is pale. Musculoskeletal: Circulation, motion, and sensation intact. 10:56 Reassessment: ERP at bedside, pt provided orange juice, mixed fruit and crackers and ph peanut butter, currnetly eating and tolerating well. 12:00 Reassessment: Patient appears in no apparent distress at this time. Patient and/or ph family updated on plan of care and expected duration. Pain level reassessed. Patient is alert, oriented x 3, equal unlabored respirations, skin warm/dry/pink. Pt now more awake and alert, VSS, SO at bedside. 13:15 Reassessment: Patient appears in no apparent distress at this time. Patient and/or ph family updated on plan of care and expected duration. Pain level reassessed. Patient is alert, oriented x 3, equal unlabored respirations, skin warm/dry/pink. Pt provided w/ lunch, currently eating lunch and tolerating well. 14:37 Reassessment: Patient appears in no apparent distress at this time. Patient and/or ph family updated on plan of care and expected duration. Pain level reassessed. Patient is alert, oriented x 3, equal unlabored respirations, skin warm/dry/pink. Pt sleeping w/ equal and unlabored respirations, awakens easily, BGL increased to 380 after eating, VSS, pt denies pain or nausea. 15:30 Reassessment: Patient appears in no apparent distress at this time. Patient and/or ph family updated on plan of care and expected duration. Pain level reassessed. Patient is alert, oriented x 3, equal unlabored respirations, skin warm/dry/pink. Vital Signs: 10:55 BP 100 / 60; Pulse 62; Resp 18; Temp 97.4; Pulse Ox 96% on R/A; ph 12:00 BP 98 / 71; Pulse 62; Resp 16; Pulse Ox 97% on R/A; ph 12:45 BP 110 / 61; Pulse 60; Resp 16; Pulse Ox 98% on R/A; ph 14:39 BP 107 / 64; Pulse 62; Resp 18; Pulse Ox 97% on R/A; ph 15:30 BP 110 / 62; Pulse 64; Resp 18; Temp 98.0; Pulse Ox 97% on R/A; ph ED Course: 10:51 Patient arrived in ED. ph 10:54 Triage completed. ph 10:56 Juan A Dominguez NP is PHCP. pm1 10:56 Jose Heredia MD is Attending Physician. pm1 11:00 Missed attempt(s): 22 gauge in right hand. Bleeding controlled, band aid applied, ph catheter tip intact. 11:08 Carolina Choi, RN is Primary Nurse. ph 11:25 CT completed. Patient tolerated procedure well. Patient moved back from CT. bq 11:28 CT Head Brain wo Cont In Process Unspecified. EDMS 12:46 Arm band placed on. ph 12:48 Patient has correct armband on for positive identification. Placed in gown. Bed in low ph position. Call light in reach. Side rails up X2. awake overnight monitor on. Pulse ox on. NIBP on. Warm blanket given. 12:52 No provider procedures requiring assistance completed. ph 16:09 IV discontinued, intact, bleeding controlled, No redness/swelling at site. Pressure iw dressing applied. Administered Medications: No medications were administered Point of Care Testing: Blood Glucose: 10:55 Blood Glucose: 486 mg/dL; ph 10:55 Blood Glucose: 51 mg/dL; ph 12:44 Blood Glucose: 202 mg/dL; ph 14:39 Blood Glucose: 380 mg/dL; ph 10:55 re-checked and BGL 51, will send to lab ph Ranges: Outcome: 14:40 Discharge ordered by . pm1 16:37 Discharged to home via wheelchair, with family. iw 16:37 Condition: good 16:37 Discharge instructions given to patient, family, Instructed on discharge instructions, follow up and referral plans. Demonstrated understanding of instructions, follow-up care. 16:38 Patient left the ED. iw Signatures: Dispatcher [employer] Breonna Atwood Irene RN DEVON Carolina Choi RN RN Juan A Dominguez, JESSEE SWEET GOODS MACHINE OPERATOR pm1
== END 2019-01-07 16:38 | disposition home or self-care (01) ==
LOC: ER 10:38
DX: E11.649 Type 2 diabetes mellitus with hypoglycemia without coma (principal); Z88.5 Allergy status to narcotic agent; Z79.01 Long term (current) use of anticoagulants
CPT/HCPCS: 36415; 70450; 80048; 82962; 85025; 99285

== ENCOUNTER 2019-08-05 06:02 | Inpatient (IN) | payer OTHER ==
--- OUTSIDE RECORDS SUMMARY | 2019-08-05 06:04 | XMS REPORT ---
:1945 [facility] Address [address] [place] [address] Care Team Providers Name Role Phone Unavailable Unavailable Unavailable Problems This patient has no known problems. Allergies, Adverse Reactions, Alerts This patient has no known allergies or adverse reactions. Medications This patient has no known medications.
[2019-08-05 07:35] LABS: Absolute Lymphocytes (CBC) 0.5 K/uL (0.7-4.9); Basophils % 0.2 % (0-1.3); Hematocrit 36.6 % (39.6-49.0); Lymphocytes % 6.6 % (15.3-44.8); MPV 8.3 fL (7.6-11.3); RBC Red Blood Cell Count 3.86 M/uL (4.33-5.43)
[2019-08-05 07:38] LABS: Protime INR 1.16
[2019-08-05] MEDS ORDERED: ONDANSETRON 4 MG/2 ML VIAL ONE (07:39)
[2019-08-05] MEDS ORDERED: FENTANYL CITR 100 MCG/2 ML ONE (07:40)
[2019-08-05 08:02] LABS: ALT/SGPT 21 U/L (12-78); AST/SGOT 17 U/L (15-37); Alkaline Phosphatase 85 U/L (45-117); BUN Blood Urea Nitrogen 16 mg/dL (7-18); Bicarbonate 28 mmol/L (21-32); Bilirubin Direct 0.2 mg/dL (0-0.2); Bilirubin Total 0.5 mg/dL (0.2-1.0); Glucose Level 179 mg/dL (74-106); Lipase 18 U/L (73-393); Magnesium 2.3 mg/dL (1.8-2.4); NT PRO-BNP 1039 pg/mL (<125); Protein, Total 6.8 g/dL (6.4-8.2); Sodium Level 138 mmol/L (136-145); Troponin (Emerg Dept Use Only) < 0.02 ng/mL (0.0-0.045)
[2019-08-05 08:06] LABS: Potassium 5.8 mmol/L (3.5-5.1)
[2019-08-05] MEDS ORDERED: NA CHLORIDE 0.9% 500 ML ONE (08:11)
[2019-08-05] MEDS ORDERED: FAMOTIDINE 20 MG/2 ML VIAL IV ONE (08:11)
[2019-08-05] MEDS ORDERED: NA CHLORIDE 0.9% 1,000 ML ONE (08:12)
[2019-08-05] MEDS ORDERED: IPRATROPIUM BROM 0.5MG/2.5ML ONE (08:33)
[2019-08-05] MEDS ORDERED: INSULIN -REGULAR HUMAN 50 UNIT/0.5 ML ML ONE (08:33)
[2019-08-05] MEDS ORDERED: ALBUTEROL 2.5 MG/3 ML NEB SOL ONE (08:33)
[2019-08-05] MEDS ORDERED: D50W 25 GM/50 ML SYRINGE/VIAL IV ONE (08:34)
[2019-08-05 08:40] LABS: Blood Morphology Comment NOT SEEN (NOT SEEN); Platelet Estimate ADEQ
[2019-08-05] MEDS ORDERED: CALCIUM GLUCONATE 1gm/100 ML NS (4.65 mEq/100mL) IV ONE ×2 (09:00)
--- NOTE | 2019-08-05 09:24 | RAD REPORT ---
EXAM DESCRIPTION: CT - Head C Spine Cap W Con - 08/05/2019 8:59 am CLINICAL HISTORY: Trauma, head and neck injury. Chest, abdomen and pelvis pain. PAIN COMPARISON: Head Brain Wo Cont dated 01/07/2019; Chest Single View dated 08/05/2019; Wrist Left 2 View dated 08/05/2019; Elbow Left 3 View dated 08/05/2019 TECHNIQUE: CT head without contrast. CT cervical spine without contrast with coronal and sagittal reformatted images. CT chest, abdomen and pelvis with IV contrast (approximately 100 mL nonionic IV contrast) with spann l and sagittal reformatted images of the spine. All CT scans are performed using dose optimization technique as appropriate and may include automated exposure control or mA/KV adjustment according to patient size. FINDINGS: CT HEAD WITHOUT CONTRAST: No intracranial hemorrhage, hydrocephalus or extra-axial fluid collection. Moderate gliosis is seen i n the right cerebral hemisphere, unchanged. No areas of brain edema or midline shift. The paranasal sinuses and mastoids are clear. The calvarium is intact. CT CERVICAL SPINE WITHOUT CONTRAST: No fracture or subluxation. Mid and lower cervical degenerative changes are present. The prevertebral soft tissues are normal in thickness. CT CHEST, ABDOMEN, PELVIS WITH CONTRAST: Emphysematous changes are present with areas of bronchiectasis seen in both lung bases.Mildly displac ed left lateral sixth, seventh, eighth and ninth rib fractures seen.No pneumothorax is present. No evidence of intra-abdominal visceral injury, free fluid or free air. Degenerative changes are present at the level of the sacral junction with mild degenerative anterolis thesis seen of L5 on S1. Old traumatic changes left clavicle. IMPRESSION: Several mildly displaced left lateral rib fractures without pneumothorax.
--- NOTE | 2019-08-05 09:50 | ER ---
Nurse's Notes [facility] Name: Valentín Senior Jr Age: 74 yrs Sex: Male : 1945 Arrival Date: 08/05/2019 Time: 06:18 Bed 19 Private MD: Diagnosis: Fall on same level, unspecified;Multiple fractures of ribs, left side;Displaced oblique fracture of shaft of left ulna-proximal;Hyperkalemia;Urinary tract infection, site not specified Presentation: 08/05 07:00 Acuity: ILANA 3 rb1 07:00 Risk Assessment: Do you want to hurt yourself or someone else? Patient reports no rb1 desire to harm self or others. Historical: - Allergies: 07:00 Morphine; rb1 - Home Meds: 07:00 Amiodarone Oral once daily [Active]; apixaban 5 mg Oral 1 tab 2 times per day [Active]; rb1 artificial tears(hypromellose) 0.4 % Opht drop 1 drop right for Dry Eye [Active]; atorvastatin Oral once daily [Active]; calcium 250 mg/ vitamin D 125 Tab [Active]; Creon 6,000-19,000 -30,000 unit Oral cpDR 1 cap 4 x day [Active]; docusate calcium 240 mg Oral cap 1 cap once daily [Active]; Docusate Sodium Oral [Active]; duloxetine Oral once daily [Active]; Eliquis 5 mg Oral tab 1 tab 2 times per day [Active]; finasteride 5 mg Oral tab 1 tab once daily [Active]; Furosemide Oral [Active]; hydroxyzine pamoate 50 mg Oral cap 1 cap at bedtime [Active]; insulin aspart subcutaneous daily [Active]; insulin detemir subcutaneous daily [Active]; insulin detemir 30 units SQ daily [Active]; Insulin Glargine insulin aspartate Flexpen Sub-Q 12 units before meals [Active]; latanoprost ,005 % OPH Soln [Active]; lidocaine 5% patch [Active]; loratadine 10 mg Oral tab 1 tab once daily [Active]; Lyrica Oral [Active]; metoprolol tartrate 25 mg Oral tab 0.5 tab 2 times per day [Active]; omeprazole 20 mg Oral cpDR 1 cap once daily [Active]; oxybutynin chloride 5 mg Oral tab 1 tab 3 times per day [Active]; Oxybutynin Chloride Oral [Active]; pantoprazole 40 mg Oral TbEC 1 tab 2 times per day [Active]; pregabalin 150 mg cap Oral 3 times per day [Active]; Ranitidine Oral [Active]; ranitidine HCl 300 mg Oral cap [Active]; simvastatin 10 mg Oral tab 1 tab once daily [Active]; tamsulosin 0.4 mg Oral cp24 1 cap once daily [Active]; tiotropium 18 mcg INHL CAP 30 daily [Active]; - PMHx: 07:00 Atrial Fib; CAD; CVA; Diabetes - IDDM; Pacemaker; Hernia; Pancreatitis; Pneumonia; rb1 - Family history:: not pertinent. - Ebola Screening: : Patient negative for fever greater than or equal to 101.5 degrees Fahrenheit, and additional compatible Ebola Virus Disease symptoms. Screenin:00 Abuse screen: Denies threats or abuse. Denies injuries from another. Nutritional ra1 screening: No deficits noted. poor dentition noted. Tuberculosis screening: No symptoms or risk factors identified. Fall Risk Fall in past 12 months (25 points). Secondary diagnosis (15 points) impaired mobility, CVA, IV access (20 points). Ambulatory Aid- None/Bed Rest/Nurse Assist (0 pts). Gait- Impaired (20 pts.). Mental Status- Oriented to own ability (0 pts). Total Damon Fall Scale indicates High Risk Score (45 or more points). Fall prevention measures have been instituted. Side Rails Up X 2 Placed Close to Nursing Station Frequent Obs/Assessments Occuring Family Present and informed to notify staff if the need to leave the bedside. Assessment: 06:00 General: Appears in no apparent distress. uncomfortable, Behavior is calm, cooperative, ra1 appropriate for age, Reports Denies fever, feeling ill, fatigue, chills. Pain: Complains of pain in Left ribs and left arm/elbow Pain does not radiate. Pain currently is 10 out of 10 on a pain scale. Quality of pain is described as aching, shooting, stabbing, Pain began 1 hour ago. Is continuous, Alleviated by nothing. Aggravated by repositioning, Noted to be grimacing, guarding, moaning, Also complains of no other associated symptoms. Current management is with per spouse, patient was given 500mg ibuprofen at home before he was picked up by EMS is with is ineffective Goal of pain control is to sleep comfortably. 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 Speech is normal, Pupils are PERRLA, Intact Denies blurred vision dizziness, difficulty swallowing, paresthesias numbness photophobia diplopia. Cardiovascular: Reports None Denies chest pain, diaphoresis, fatigue, lightheadedness, nausea, palpitations, shortness of breath, syncope, vomiting, Heart tones S1 S2 present Capillary refill < 3 seconds Pulses are all present. 2+ to RUE/RLE, 1+ to LUE/LLE Rhythm is regular Chest pain is denied. Respiratory: Airway is patent Respiratory effort is even, unlabored, Respiratory pattern is regular, symmetrical, Breath sounds are clear bilaterally. in right upper lobe, left upper lobe, left posterior upper lobe and right posterior upper lobe Breath sounds are diminished bilaterally. in left posterior lower lobe, right posterior middle lobe and right posterior lower lobe. GI: No signs and/or symptoms were reported involving the gastrointestinal system. : No signs and/or symptoms were reported regarding the genitourinary system. EENT: No signs and/or symptoms were reported regarding the EENT system. Derm: No signs and/or symptoms reported regarding the dermatologic system. Musculoskeletal: No signs and/or symptoms reported regarding the musculoskeletal system. 07:00 General: Appears uncomfortable, Behavior is calm, cooperative. Pain: Complains of pain rb1 in left elbow and left ribs Pain currently is 10 out of 10 on a pain scale. Alleviated by nothing. Aggravated by repositioning. Neuro: Level of Consciousness is awake, alert, obeys commands, Oriented to person, place, time, situation. Cardiovascular: Capillary refill < 3 seconds is brisk in bilateral fingers. Respiratory: Airway is patent Respiratory effort is even, unlabored, Respiratory pattern is regular, symmetrical. Derm: Skin is pink, warm \T\ dry. Musculoskeletal: Range of motion: limited in left elbow. 08:17 Reassessment: Patient appears in no apparent distress at this time. Patient and/or rb1 family updated on plan of care and expected duration. Pain level reassessed. Patient is alert, oriented x 3, equal unlabored respirations, skin warm/dry/pink. 09:00 Reassessment: Patient appears in no apparent distress at this time. Patient and/or rb1 family updated on plan of care and expected duration. Pain level reassessed. Patient is alert, oriented x 3, equal unlabored respirations, skin warm/dry/pink. 10:00 Reassessment: Patient appears in no apparent distress at this time. Patient and/or rb1 family updated on plan of care and expected duration. Pain level reassessed. Patient is alert, oriented x 3, equal unlabored respirations, skin warm/dry/pink. 11:00 Reassessment: Patient appears in no apparent distress at this time. Patient and/or rb1 family updated on plan of care and expected duration. Pain level reassessed. Patient is alert, oriented x 3, equal unlabored respirations, skin warm/dry/pink. 12:00 Reassessment: Patient appears in no apparent distress at this time. Patient and/or rb1 family updated on plan of care and expected duration. Pain level reassessed. Patient is alert, oriented x 3, equal unlabored respirations, skin warm/dry/pink. 12:11 Reassessment: Unable to give report at this time, spoke to Tamra and she said that manuel Ellsworth RN will call me back. 12:46 Reassessment: Called report to DEVON Ellsworth. Information from the [facility]AR was given. All [facility] questions asked and answered. 12:53 Reassessment: Pt. went to CT. rb1 13:22 Reassessment: Patient appears in no apparent distress at this time. Patient and/or rb1 family updated on plan of care and expected duration. Pain level reassessed. Patient is alert, oriented x 3, equal unlabored respirations, skin warm/dry/pink. Pt. returned from CT. Vital Signs: 06:00 BP 158 / 78; Pulse 81; Resp 18; Temp 97.8; Pulse Ox 97% ; Pain 10/10; ra1 07:00 BP 133 / 69; Pulse 75; Resp 19; Pulse Ox 99% on R/A; Pain 10/10; rb1 08:00 BP 119 / 54; Pulse 75; Resp 20; Temp 97.6(O); Pulse Ox 95% on R/A; Pain 9/10; rb1 08:30 BP 138 / 78; Pulse 75; Resp 20; Pulse Ox 98% on R/A; Pain 10/10; rb1 09:30 BP 123 / 90; Pulse 90; Resp 19; Pulse Ox 100% on R/A; Pain 10/10; rb1 12:03 BP 130 / 70; Pulse 85; Resp 19; Pulse Ox 100% on R/A; Pain 8/10; rb1 12:50 BP 131 / 73; Pulse 78; Resp 19; Pulse Ox 99% on R/A; rb1 13:28 BP 133 / 73; Pulse 75; Resp 19; Pulse Ox 99% on R/A; Pain 8/10; rb1 Trauma Score (Adult): 07:00 Eye Response: spontaneous(1); Verbal Response: oriented(1); Motor Response: obeys rb1 commands(2); Systolic BP: > 89 mm Hg(4); Respiratory Rate: 10 to 29 per min(4); Michael Score: 15; Trauma Score: 12 08:00 Eye Response: spontaneous(1); Verbal Response: oriented(1); Motor Response: obeys rb1 commands(2); Systolic BP: > 89 mm Hg(4); Respiratory Rate: 10 to 29 per min(4); Campbell Score: 15; Trauma Score: 12 08:30 Eye Response: spontaneous(1); Verbal Response: oriented(1); Motor Response: obeys rb1 commands(2); Systolic BP: > 89 mm Hg(4); Respiratory Rate: 10 to 29 per min(4); Michael Score: 15; Trauma Score: 12 09:30 Eye Response: spontaneous(1); Verbal Response: oriented(1); Motor Response: obeys rb1 commands(2); Systolic BP: > 89 mm Hg(4); Respiratory Rate: 10 to 29 per min(4); Michael Score: 15; Trauma Score: 12 12:03 Eye Response: spontaneous(1); Verbal Response: oriented(1); Motor Response: obeys rb1 commands(2); Systolic BP: > 89 mm Hg(4); Respiratory Rate: 10 to 29 per min(4); Campbell Score: 15; Trauma Score: 12 ED Course: 06:00 Patient has correct armband on for positive identification. Bed in low position. Side ra1 rails up X2. 06:18 Patient arrived in ED. ds1 06:19 Abdoulaye Zuniga MD is Attending Physician. peter 06:40 Aaron Aranda RN is Primary Nurse. ra1 07:00 Arm band placed on right wrist. rb1 07:00 Patient has correct armband on for positive identification. Bed in low position. Call rb1 light in reach. Side rails up X2. kitchen steward/stewardess on. Pulse ox on. NIBP on. 07:00 Patient maintains SpO2 saturation greater than 95% on room air. rb1 07:00 Thermoregulation: warm blanket given to patient. rb1 07:07 May Card FNP-C is PHCP. snw 07:23 Inserted saline lock: 22 gauge in right wrist, using aseptic technique. Blood collected.kj1 07:51 Initial lab(s) drawn, by il, sent to lab. kj1 08:26 XRAY Chest (1 view) In Process Unspecified. EDMS 08:26 Elbow Left 3 View XRAY In Process Unspecified. EDMS 08:27 Pelvis XRAY In Process Unspecified. EDMS 08:27 Wrist Left (2 View) XRAY In Process Unspecified. EDMS 08:58 CT completed. Patient tolerated procedure well. Patient moved back from CT. bq 08:59 CT Traumagram (Head C Spine CAP W Con) In Process Unspecified. EDMS 09:42 Triage completed. rb1 09:45 Charlee London MD is Hospitalizing Provider. snw 13:52 No provider procedures requiring assistance completed. Patient admitted, IV remains in rb1 place. Administered Medications: 07:40 Drug: fentaNYL (PF) 25 mcg Route: IVP; Site: right forearm; rb1 08:15 Follow up: Response: No adverse reaction; Pain is unchanged, physician notified rb1 07:40 Drug: Zofran 4 mg Route: IVP; Site: right forearm; rb1 08:15 Follow up: Response: No adverse reaction; Nausea is decreased rb1 08:10 Drug: NS 0.9% 500 ml Route: IV; Rate: bolus; Site: right wrist; rb1 09:30 Follow up: IV Status: Completed infusion rb1 08:10 Drug: Pepcid 20 mg Route: IVP; Site: right wrist; rb1 08:30 Follow up: Response: No adverse reaction rb1 08:23 Drug: fentaNYL (PF) 25 mcg Route: IVP; Site: right forearm; rb1 08:30 Follow up: Response: No adverse reaction; Pain is decreased rb1 09:25 Drug: Albuterol - atroVENT (3:1) (2.5 mg - 0.5 mg) 3 ml Route: Nebulizer; rb1 09:50 Follow up: Response: No adverse reaction rb1 09:25 Drug: Calcium Gluconate 1 grams Route: IVPB; Infused Over: 60 mins; Site: right forearm;rb1 09:45 Follow up: Response: No adverse reaction rb1 10:33 Follow up: Response: No adverse reaction; IV Status: Completed infusion rb1 09:25 Drug: D50W 50 ml Route: IVP; Site: right forearm; rb1 09:45 Follow up: Response: No adverse reaction rb1 09:45 Follow up: Response: No adverse reaction rb1 09:25 Drug: Insulin Regular Human 10 units {Co-Signature: tw2 (Della Rios RN).} Route: IVP; rb1 Site: right forearm; 09:40 Follow up: Response: No adverse reaction rb1 09:35 Drug: NS 0.9% 250 ml Route: IV; Rate: bolus; Site: right forearm; rb1 09:55 Follow up: IV Status: Completed infusion rb1 09:58 Drug: Kayexalate 30 grams Route: PO; rb1 10:27 Follow up: Response: No adverse reaction rb1 09:58 Drug: fentaNYL (PF) 25 mcg Route: IVP; Site: right forearm; rb1 10:12 Follow up: Response: No adverse reaction; Pain is unchanged, physician notified rb1 10:00 Drug: NS 0.9% 1000 ml Route: IV; Rate: 50 ml/hr; Site: right forearm; rb1 10:02 CANCELLED (other intervention): NS 0.9% 1000 ml IV at 125 ml/hr continuous snw 10:23 Not Given (provider changed order): NS 0.9% 1000 ml IV at 125 ml/hr continuous rb1 Point of Care Testing: Blood Glucose: 10:48 Blood Glucose: 112 mg/dL; rb1 Ranges: Outcome: 09:48 Decision to Hospitalize by Provider. snw 13:52 Patient left the ED. ms 13:52 Admitted to Med/surg accompanied by lynn, via stretcher, room 201, with chart, Report rb1 called to Jodee 13:52 Condition: stable 13:52 Instructed on the need for admit. rb1 13:52 Patient's length of stay in the Emergency Department was greater than 2 hours. PT. rb1 admittedPatient's length of stay extended due to Signatures: Dispatcher [employer] Abdoulaye Hartley MD MD cha Therrien, Shelly, ENVIRONMENTAL ENGINEERING TECHNICIAN-C ENVIRONMENTAL ENGINEERING TECHNICIAN-Csnw Breonna Nassar Demi ds1 Villarreal, Maria ms Barber, Rebecca, RN RN rb1 Aaron Aranda RN RN ra1 Catalina Jeffers kj1 Della Rios RN tw2 Corrections: (The following items were deleted from the chart) 15:51 13:22 Reassessment: Pt. returned from CT rb1 rb1
--- NOTE | 2019-08-05 09:50 | EDPHYS ---
Physician Documentation [facility] Name: Valentín Senior Jr Age: 74 yrs Sex: Male : 1945 Arrival Date: 08/05/2019 Time: 06:18 Bed 19 Private MD: ED Physician Abdoulaye Zuniga HPI: 08/05 06:39 This 74 yrs old Male presents to ER via Unassigned with complaints of Fall peter Injury. 06:39 Details of fall: The patient fell from an upright position, while walking. Onset: The peter symptoms/episode began/occurred just prior to arrival. Associated injuries: The patient sustained injury to the head, neck injury, injury to the chest, pain with breathing, pain with movement, left antecubital area and left elbow, decreased range of motion, ecchymosis, painful injury. Severity of symptoms: At their worst the symptoms were mild, in the emergency department the symptoms are unchanged. The patient has not experienced similar symptoms in the past. Historical: - Allergies: 07:00 Morphine; rb1 - Home Meds: 07:00 Amiodarone Oral once daily [Active]; apixaban 5 mg Oral 1 tab 2 times per day [Active]; rb1 artificial tears(hypromellose) 0.4 % Opht drop 1 drop right for Dry Eye [Active]; atorvastatin Oral once daily [Active]; calcium 250 mg/ vitamin D 125 Tab [Active]; Creon 6,000-19,000 -30,000 unit Oral cpDR 1 cap 4 x day [Active]; docusate calcium 240 mg Oral cap 1 cap once daily [Active]; Docusate Sodium Oral [Active]; duloxetine Oral once daily [Active]; Eliquis 5 mg Oral tab 1 tab 2 times per day [Active]; finasteride 5 mg Oral tab 1 tab once daily [Active]; Furosemide Oral [Active]; hydroxyzine pamoate 50 mg Oral cap 1 cap at bedtime [Active]; insulin aspart subcutaneous daily [Active]; insulin detemir subcutaneous daily [Active]; insulin detemir 30 units SQ daily [Active]; Insulin Glargine insulin aspartate Flexpen Sub-Q 12 units before meals [Active]; latanoprost ,005 % OPH Soln [Active]; lidocaine 5% patch [Active]; loratadine 10 mg Oral tab 1 tab once daily [Active]; Lyrica Oral [Active]; metoprolol tartrate 25 mg Oral tab 0.5 tab 2 times per day [Active]; omeprazole 20 mg Oral cpDR 1 cap once daily [Active]; oxybutynin chloride 5 mg Oral tab 1 tab 3 times per day [Active]; Oxybutynin Chloride Oral [Active]; pantoprazole 40 mg Oral TbEC 1 tab 2 times per day [Active]; pregabalin 150 mg cap Oral 3 times per day [Active]; Ranitidine Oral [Active]; ranitidine HCl 300 mg Oral cap [Active]; simvastatin 10 mg Oral tab 1 tab once daily [Active]; tamsulosin 0.4 mg Oral cp24 1 cap once daily [Active]; tiotropium 18 mcg INHL CAP 30 daily [Active]; - PMHx: 07:00 Atrial Fib; CAD; CVA; Diabetes - IDDM; Pacemaker; Hernia; Pancreatitis; Pneumonia; rb1 - Family history:: not pertinent. - Ebola Screening: : Patient negative for fever greater than or equal to 101.5 degrees Fahrenheit, and additional compatible Ebola Virus Disease symptoms. ROS: 06:39 Constitutional: Negative for fever, chills, and weight loss, Eyes: Negative for injury, peter pain, redness, and discharge, ENT: Negative for injury, pain, and discharge, Neck: Negative for injury, pain, and swelling, Cardiovascular: Negative for chest pain, palpitations, and edema, Back: Negative for injury and pain, : Negative for injury, bleeding, discharge, and swelling, Skin: Negative for injury, rash, and discoloration, Neuro: Negative for headache, weakness, numbness, tingling, and seizure, Psych: Negative for depression, anxiety, suicide ideation, homicidal ideation, and hallucinations, Allergy/Immunology: Negative for hives, rash, and allergies, Endocrine: Negative for neck swelling, polydipsia, polyuria, polyphagia, and marked weight changes. 06:39 Cardiovascular: Positive for chest pain, of the anterior aspect of left upper chest, left lateral anterior chest, left lateral posterior chest and left breast. 06:39 MS/extremity: Positive for deformity, pain, swelling, tenderness, of the left antecubital area and left elbow. Exam: 06:39 Constitutional: This is a well developed, well nourished patient who is awake, alert, peter and in no acute distress. Head/Face: Normocephalic, atraumatic. Eyes: Pupils equal round and reactive to light, extra-ocular motions intact. Lids and lashes normal. Conjunctiva and sclera are non-icteric and not injected. Cornea within normal limits. Periorbital areas with no swelling, redness, or edema. ENT: Nares patent. No nasal discharge, no septal abnormalities noted. Tympanic membranes are normal and external auditory canals are clear. Oropharynx with no redness, swelling, or masses, exudates, or evidence of obstruction, uvula midline. Mucous membranes moist. Neck: Trachea midline, no thyromegaly or masses palpated, and no cervical lymphadenopathy. Supple, full range of motion without nuchal rigidity, or vertebral point tenderness. No Meningismus. Cardiovascular: Regular rate and rhythm with a normal S1 and S2. No gallops, murmurs, or rubs. Normal PMI, no JVD. No pulse deficits. Abdomen/GI: Soft, non-tender, with normal bowel sounds. No distension or tympany. No guarding or rebound. No evidence of tenderness throughout. Back: No spinal tenderness. No costovertebral tenderness. Full range of motion. Male : Normal genitalia with no discharge or lesions. Skin: Warm, dry with normal turgor. Normal color with no rashes, no lesions, and no evidence of cellulitis. Neuro: Awake and alert, GCS 15, oriented to person, place, time, and situation. Cranial nerves II-XII grossly intact. Motor strength 5/5 in all extremities. Sensory grossly intact. Cerebellar exam normal. Normal gait. Psych: Awake, alert, with orientation to person, place and time. Behavior, mood, and affect are within normal limits. 06:39 Chest/axilla: Inspection: normal, Palpation: tenderness, that is mild, of the anterior aspect of left upper chest, left lateral anterior chest, left lateral posterior chest and left breast. 06:39 Respiratory: the patient does not display signs of respiratory distress, Respirations: normal, Breath sounds: decreased breath sounds, that are mild, Respiratory rate: 18 Vital Signs: 06:00 BP 158 / 78; Pulse 81; Resp 18; Temp 97.8; Pulse Ox 97% ; Pain 10/10; ra1 07:00 BP 133 / 69; Pulse 75; Resp 19; Pulse Ox 99% on R/A; Pain 10/10; rb1 08:00 BP 119 / 54; Pulse 75; Resp 20; Temp 97.6(O); Pulse Ox 95% on R/A; Pain 9/10; rb1 08:30 BP 138 / 78; Pulse 75; Resp 20; Pulse Ox 98% on R/A; Pain 10/10; rb1 09:30 BP 123 / 90; Pulse 90; Resp 19; Pulse Ox 100% on R/A; Pain 10/10; rb1 12:03 BP 130 / 70; Pulse 85; Resp 19; Pulse Ox 100% on R/A; Pain 8/10; rb1 12:50 BP 131 / 73; Pulse 78; Resp 19; Pulse Ox 99% on R/A; rb1 13:28 BP 133 / 73; Pulse 75; Resp 19; Pulse Ox 99% on R/A; Pain 8/10; rb1 Trauma Score (Adult): 07:00 Eye Response: spontaneous(1); Verbal Response: oriented(1); Motor Response: obeys rb1 commands(2); Systolic BP: > 89 mm Hg(4); Respiratory Rate: 10 to 29 per min(4); Michael Score: 15; Trauma Score: 12 08:00 Eye Response: spontaneous(1); Verbal Response: oriented(1); Motor Response: obeys rb1 commands(2); Systolic BP: > 89 mm Hg(4); Respiratory Rate: 10 to 29 per min(4); Michael Score: 15; Trauma Score: 12 08:30 Eye Response: spontaneous(1); Verbal Response: oriented(1); Motor Response: obeys rb1 commands(2); Systolic BP: > 89 mm Hg(4); Respiratory Rate: 10 to 29 per min(4); Bristol Score: 15; Trauma Score: 12 09:30 Eye Response: spontaneous(1); Verbal Response: oriented(1); Motor Response: obeys rb1 commands(2); Systolic BP: > 89 mm Hg(4); Respiratory Rate: 10 to 29 per min(4); Michael Score: 15; Trauma Score: 12 12:03 Eye Response: spontaneous(1); Verbal Response: oriented(1); Motor Response: obeys rb1 commands(2); Systolic BP: > 89 mm Hg(4); Respiratory Rate: 10 to 29 per min(4); Bristol Score: 15; Trauma Score: 12 MDM: 06:20 Patient medically screened. [facility] 06:45 Data reviewed: vital signs, nurses notes, lab test result(s), EKG, radiologic studies, [facility] CT scan, plain films. 08:10 Counseling: I had a detailed discussion with the patient and/or guardian regarding: the snw historical points, exam findings, and any diagnostic results supporting the discharge/admit diagnosis, the presence of at least one elevated blood pressure reading (>120/80) during this emergency department visit, lab results, radiology results. Awaiting: CT scan results. ED course: + proximal left ulnar fx, distal ulna intact and nondisplaced. 09:43 Physician consultation: Charlee London MD was called at 09:44, was contacted at 09:44, [facility] regarding admission, to the telemetry unit. would like consultation with Dr. Dr. Ayoub - contacted and will consult, Dr. Tong - message for consult left, attempted transfer to [place] - at capacity. 09:56 Special discussion: Dr Tong - very well padded posterior elbow splint. sn 08/05 06:39 Order name: Basic Metabolic Panel; Complete Time: 08:07 [facility] 08/05 06:39 Order name: CBC with Diff; Complete Time: 08:44 [facility] 08/05 06:39 Order name: LFT's; Complete Time: 08:07 [facility] 08/05 06:39 Order name: Magnesium; Complete Time: 08:07 [facility] 08/05 06:39 Order name: NT PRO-BNP; Complete Time: 08:07 [facility] 08/05 06:39 Order name: PT-INR; Complete Time: 07:40 [facility] 08/05 06:39 Order name: Troponin (emerg Dept Use Only); Complete Time: 08:07 [facility] 08/05 06:39 Order name: Lipase; Complete Time: 08:07 [facility] 08/05 06:39 Order name: Urine Culture [facility] 08/05 06:59 Order name: Type And Screen; Complete Time: 08:11 [facility] 08/05 08:40 Order name: Manual Differential; Complete Time: 08:44 EDMS 08/05 11:00 Order name: Glucose, Ancillary Testing; Complete Time: 11:04 EDMS 08/05 11:06 Order name: Creatine Phosphokinase EDMS 08/05 11:06 Order name: Liver (Hepatic) Function EDMS 08/05 11:06 Order name: Comprehensive Metabolic Panel EDMD 08/05 11:06 Order name: Comprehensive Metabolic Panel EDMD 08/05 11:06 Order name: Creatine Phosphokinase EDMS 08/05 11:06 Order name: Creatine Phosphokinase EDMS 08/05 11:06 Order name: Creatine Phosphokinase EDMS 08/05 11:06 Order name: Creatine Phosphokinase EDMD 08/05 11:06 Order name: Magnesium EDMS 08/05 11:07 Order name: UR SODIUM EDMS 08/05 11:07 Order name: Troponin I EDMD 08/05 11:07 Order name: Magnesium EDMD 08/05 11:07 Order name: Magnesium EDMD 08/05 11:07 Order name: Magnesium EDMD 08/05 12:54 Order name: Urine Microscopic Only ms 08/05 12:55 Order name: Urine Dipstick--Ancillary (enter results) ms 08/05 13:06 Order name: Urine Dipstick-Ancillary; Complete Time: 13:14 [facility] 08/05 13:13 Order name: Urine Microscopic Only; Complete Time: 13:14 EDMD 08/05 06:39 Order name: XRAY Chest (1 view); Complete Time: 11:45 [facility] 08/05 06:39 Order name: EKG; Complete Time: 06:39 [facility] 08/05 06:39 Order name: Cardiac monitoring; Complete Time: 08:18 [facility] 08/05 06:39 Order name: Elbow Left 3 View XRAY; Complete Time: 10:39 [facility] 08/05 06:39 Order name: Pelvis XRAY; Complete Time: 11:45 [facility] 08/05 07:20 Order name: CT Traumagram (Head C Spine CAP W Con); Complete Time: 09:30 [facility] 08/05 07:55 Order name: Wrist Left (2 View) XRAY; Complete Time: 11:45 [facility] 08/05 09:34 Order name: INCENTIVE SPIROMETRY w 08/05 10:43 Order name: Diet Mech. Soft (chopped); Complete Time: 10:43 rb1 08/05 11:07 Order name: CONS Pharmacy Consult EDMD 08/05 11:07 Order name: Occupational Therapy Consult EDMD 08/05 11:07 Order name: CONS Physician Consult EDMD 08/05 11:07 Order name: Physical Therapy Consult [facility] 08/05 11:07 Order name: Heart Healthy [facility] 08/05 11:07 Order name: Echo with Doppler [facility] 08/05 13:48 Order name: CT; Complete Time: 13:49 [facility] 08/05 06:39 Order name: EKG - Nurse/Tech; Complete Time: 08:19 [facility] 08/05 06:39 Order name: IV Saline Lock; Complete Time: 07:47 [facility] 08/05 06:39 Order name: Labs collected and sent; Complete Time: 07:47 [facility] 08/05 06:39 Order name: O2 Per Protocol; Complete Time: 07:47 [facility] 08/05 06:39 Order name: O2 Sat Monitoring; Complete Time: 07:48 [facility] 08/05 06:39 Order name: Urine Dipstick-Ancillary (obtain specimen); Complete Time: 16:01 [facility] Administered Medications: 07:40 Drug: fentaNYL (PF) 25 mcg Route: IVP; Site: right forearm; rb1 08:15 Follow up: Response: No adverse reaction; Pain is unchanged, physician notified rb1 07:40 Drug: Zofran 4 mg Route: IVP; Site: right forearm; rb1 08:15 Follow up: Response: No adverse reaction; Nausea is decreased rb1 08:10 Drug: NS 0.9% 500 ml Route: IV; Rate: bolus; Site: right wrist; rb1 09:30 Follow up: IV Status: Completed infusion rb1 08:10 Drug: Pepcid 20 mg Route: IVP; Site: right wrist; rb1 08:30 Follow up: Response: No adverse reaction rb1 08:23 Drug: fentaNYL (PF) 25 mcg Route: IVP; Site: right forearm; rb1 08:30 Follow up: Response: No adverse reaction; Pain is decreased rb1 09:25 Drug: Albuterol - atroVENT (3:1) (2.5 mg - 0.5 mg) 3 ml Route: Nebulizer; rb1 09:50 Follow up: Response: No adverse reaction rb1 09:25 Drug: Calcium Gluconate 1 grams Route: IVPB; Infused Over: 60 mins; Site: right forearm;rb1 09:45 Follow up: Response: No adverse reaction rb1 10:33 Follow up: Response: No adverse reaction; IV Status: Completed infusion rb1 09:25 Drug: D50W 50 ml Route: IVP; Site: right forearm; rb1 09:45 Follow up: Response: No adverse reaction rb1 09:45 Follow up: Response: No adverse reaction rb1 09:25 Drug: Insulin Regular Human 10 units {Co-Signature: tw2 (Della Rios RN).} Route: IVP; rb1 Site: right forearm; 09:40 Follow up: Response: No adverse reaction rb1 09:35 Drug: NS 0.9% 250 ml Route: IV; Rate: bolus; Site: right forearm; rb1 09:55 Follow up: IV Status: Completed infusion rb1 09:58 Drug: Kayexalate 30 grams Route: PO; rb1 10:27 Follow up: Response: No adverse reaction rb1 09:58 Drug: fentaNYL (PF) 25 mcg Route: IVP; Site: right forearm; rb1 10:12 Follow up: Response: No adverse reaction; Pain is unchanged, physician notified rb1 10:00 Drug: NS 0.9% 1000 ml Route: IV; Rate: 50 ml/hr; Site: right forearm; rb1 10:02 CANCELLED (other intervention): NS 0.9% 1000 ml IV at 125 ml/hr continuous snw 10:23 Not Given (provider changed order): NS 0.9% 1000 ml IV at 125 ml/hr continuous rb1 Point of Care Testing: Blood Glucose: 10:48 Blood Glucose: 112 mg/dL; rb1 Ranges: Critical Glucose Levels:Adult <50 mg/dl or >400 mg/dl <40 mg/dl or >180 mg/dl Disposition: 08/06 08:11 Co-signature as Attending Physician, Abdoulaye Zuniga MD I agree with the assessment and peter plan of care. Disposition: 08/05/19 09:48 Hospitalization ordered by Charlee London for Inpatient Admission. Preliminary diagnosis are Fall on same level, unspecified, Multiple fractures of ribs, left side, Displaced oblique fracture of shaft of left ulna - proximal, Hyperkalemia, Urinary tract infection, site not specified. - Bed requested for Telemetry/MedSurg (Inpatient). - Status is Inpatient Admission. ms - Condition is Stable. - Problem is new. - Symptoms have worsened. UTI on Admission? Yes Signatures: Dispatcher [employer] Abdoulaye Hartley MD MD cha Therrien, Shelly, TAPE STRINGER-C TAPE STRINGER-Gertrudis Ch ms, Shelby DEVON RN ss Mira Villasenor RN RN rb1 Della Rios RN tw2 Corrections: (The following items were deleted from the chart) 08/05 08:46 06:40 Head C Spine Cap Wo Con+CT.RAD.BRZ ordered. EDMS EDMS 09:48 09:48 Hospitalization Ordered by Charlee London MD for Inpatient Admission. Preliminary snw diagnosis is Fall on same level, unspecified; Multiple fractures of ribs, left side; Displaced oblique fracture of shaft of left ulna - proximal. Bed requested for Telemetry/MedSurg (Inpatient). Status is Inpatient Admission. Condition is Stable. Problem is new. Symptoms have worsened. UTI on Admission? No. snw 10:02 06:39 NS 0.9% 1000 ml IV at 125 ml/hr continuous ordered. peter snw 10:02 10:02 NS 0.9% 1000 ml IV at 125 ml/hr continuous ordered. snw snw 12:00 09:48 08/05/2019 09:48 Hospitalization Ordered by Charlee London MD for Inpatient ss Admission. Preliminary diagnosis is Fall on same level, unspecified; Multiple fractures of ribs, left side; Displaced oblique fracture of shaft of left ulna - proximal; Hyperkalemia. Bed requested for Telemetry/MedSurg (Inpatient). Status is Inpatient Admission. Condition is Stable. Problem is new. Symptoms have worsened. UTI on Admission? No. snw 13:14 12:00 08/05/2019 09:48 Hospitalization Ordered by Charlee London MD for Inpatient snw Admission. Preliminary diagnosis is Fall on same level, unspecified; Multiple fractures of ribs, left side; Displaced oblique fracture of shaft of left ulna - proximal; Hyperkalemia. Bed requested for Telemetry/MedSurg (Inpatient). Status is Inpatient Admission. Condition is Stable. Problem is new. Symptoms have worsened. UTI on Admission? No. ss 13:52 13:14 08/05/2019 09:48 Hospitalization Ordered by Charlee London MD for Inpatient ms Admission. Preliminary diagnosis is Fall on same level, unspecified; Multiple fractures of ribs, left side; Displaced oblique fracture of shaft of left ulna - proximal; Hyperkalemia; Urinary tract infection, site not specified. Bed requested for Telemetry/MedSurg (Inpatient). Status is Inpatient Admission. Condition is Stable. Problem is new. Symptoms have worsened. UTI on Admission? Yes. snw
[2019-08-05] MEDS ORDERED: SOD POLYSTYREN SUL 15 GM/60 ML UCUP ONE (09:54)
--- NOTE | 2019-08-05 10:36 | RAD REPORT ---
EXAM DESCRIPTION: RAD - Elbow Left 3 View - 08/05/2019 8:26 am CLINICAL HISTORY: PAIN COMPARISON: No comparisons FINDINGS: Comminuted moderately displaced fracture of the ulna is seen. Equivocal fracture of the ra dial head is also possible. No dislocation.
[2019-08-05] MEDS ORDERED: ONDANSETRON 4 MG/2 ML VIAL IV PRN (10:58)
[2019-08-05] MEDS ORDERED: D50W 25 GM/50 ML SYRINGE/VIAL IV PRN (11:04)
[2019-08-05] MEDS ORDERED: GLUCAGON 1 MG/VIAL IM PRN (11:04)
[2019-08-05] MEDS: INSULIN -REGULAR HUMAN 50 UNIT/0.5 ML ML SQ SCH ×3 (11:30→21:21)
--- NOTE | 2019-08-05 11:38 | RAD REPORT ---
EXAM DESCRIPTION: RAD - Chest Single View - 08/05/2019 8:26 am CLINICAL HISTORY: Cough;Dyspnea Chest pain. COMPARISON: Chest Single View dated 07/16/2018; Chest Single View dated 12/17/2016; Chest Single View dated 12/13/2016; Chest Single View dated 08/15/2016 FINDINGS: Portable technique limits examination quality. The lungs are mildly emphysematous but grossly clear. The heart is mildly enlarged in size. Several l eft lateral rib fractures are seen.Pacemaker wires noted. IMPRESSION: Several left lateral minimally displaced rib fractures noted. No evidence of a pneumotho rax.
--- NOTE | 2019-08-05 11:39 | RAD REPORT ---
EXAM DESCRIPTION: RAD - Pelvis - 08/05/2019 8:26 am CLINICAL HISTORY: PAIN COMPARISON: No comparisons FINDINGS: No acute fracture or dislocation is seen.
--- NOTE | 2019-08-05 11:40 | RAD REPORT ---
EXAM DESCRIPTION: RAD - Wrist Left 2 View - 08/05/2019 8:26 am CLINICAL HISTORY: PAIN Pain COMPARISON: No comparisons FINDINGS: Soft tissue swelling is seen about the wrist. No acute fracture evident. If pain persist s or progresses, CT or MR imaging may be of value.
[2019-08-05 13:05] LABS: Urine Blood TRACE (NEG); Urine Glucose TRACE (NEG); Urine Protein NEGATIVE (NEG)
[2019-08-05 13:13] LABS: Urine Bacteria LOADED /HPF (NONE SEEN); Urine Culture Reflex Order NOT NEEDED; Urine RBC <5 /HPF (NONE SEEN)
--- NOTE | 2019-08-05 13:46 | RAD REPORT ---
EXAM DESCRIPTION: CT - Elbow Left Wo Con - 08/05/2019 1:13 pm CLINICAL HISTORY: evaluate fx Trauma, elbow fracture COMPARISON: No comparisons FINDINGS: Fracture of the proximal ulna is identified extending to involve the articular surface. Th e fracture is mildly comminuted. A component of the ulnar fracture extends into the olecranon displac ement of fracture fragments 4-5 mm is noted. A dislocation is not evident. Fracture of the radial nec k is also present. Mild moderate soft tissue swelling is evident. IMPRESSION: Radial neck and proximal ulnar fracture as detailed. All CT scans are performed using dose optimization technique as appropriate and may include automated exposure control or mA/KV adjustment according to patient size.
[2019-08-05] MEDS: PREGABALIN 150 MG CAP PO SCH ×2 (14:07→21:00)
[2019-08-05] MEDS: NA CHLORIDE 0.9% 1,000 ML IV SCH ×2 (14:07→19:00)
[2019-08-05] MEDS: HYDROCODONE/APAP 5/325 MG TAB PO PRN (14:08)
--- NOTE | 2019-08-05 14:13 | P.HP ---
Certification for Inpatient Patient admitted to: Inpatient With expected LOS: >2 Midnights Patient will require the following post-hospital care: Senior Care Practitioner: I am a practitioner with admitting privileges, knowledge of patient current condition, hospital course, and medical plan of care. Services: Services provided to patient in accordance with Admission requirements found in Title 42 Section 412.3 of the Code of Federal Regulations Patient History Date of Service: 08/05/19 Allergies morphine Adverse Reaction (Severe, Verified 08/05/19 13:52) hallucination Home Medications: Calcium Carbonate/Vitamin D3 [Calcium 500-Vit D3 400 Tablet] 1 each PO BID 12/17 Clobetasol Propionate/Emoll [Clobetasol Emollient 0.05% Crm] 1 mikael TOP BID 12/17 Duloxetine HCl [Cymbalta] 60 mg PO DAILY 12/18/15 Finasteride [Proscar*] 5 mg PO DAILY 12/18/15 Latanoprost Ophth [Xalatan 0.005%*] 1 gtt RIGHT EYE BEDTIME 12/18/15 Loratadine [Claritin*] 10 mg PO DAILY 12/18/15 Metoprolol Tartrate [Lopressor*] 12.5 mg PO BID 12/18/15 Omeprazole [Prilosec] 20 mg PO DAILY 12/18/15 Oxybutynin Chloride [Ditropan*] 5 mg PO TID 12/18/15 Pantoprazole [Protonix Tab*] 40 mg PO BID 12/18/15 Pregabalin [Lyrica] 1 tab PO TID 12/18/15 raNITIdine HCl [Zantac] 300 mg PO BID 12/18/15 Insulin Aspart [Novolog*] 12 units SQ TID 01/14/16 Insulin Detemir [Levemir*] 30 units SQ DAILY 01/14/16 Lipase/Protease/Amylase [Creon Dr 36,000 Units Capsule] 6,000 units PO SEECOM Sennosides/Docusate Sodium [Docusate Sodium-Senna Tablet] 100 mg PO DAILY hydrOXYzine pamoate [Hydroxyzine Pamoate] 50 mg PO BEDTIME 01/14/16 Azithromycin Tab [Zithromax*] 250 mg PO DAILY #5 tab 01/16/16 Cefdinir [Omnicef] 300 mg PO BID #14 capsule 01/16/16 Furosemide [Lasix*] 20 mg PO M,W,F #15 tab 01/16/16 Warfarin Sodium [Coumadin*] 2.5 mg PO DAILY #15 tab 01/16/16 - Past Medical/Surgical History Diabetic: Yes -: Atrial fibrillation -: CAD -: CVA 1993 2x -: DM-Type 2 -: Chronic anticoagulation -: HTN -: Chronic back pain -: History of Tobacco -: Back sx Psychosocial/ Personal History: Unknown. Will need information from family. - Social History Alcohol use: No CD- Drugs: No Caffeine use: Yes Physical Examination - Vital Signs Respirations: 18 Pulse Ox (%): 98 - Studies Laboratory Data (last 24 hrs) 08/05/19 07:23: PT 13.6 H, INR 1.16 08/05/19 07:23: WBC 7.8, Hgb 12.0 L, Hct 36.6 L, Plt Count 176 08/05/19 07:23: Sodium 138, Potassium 5.8 H*, BUN 16, Creatinine 1.25, Glucose 179 H, Magnesium 2.3, Total Bilirubin 0.5, AST 17, ALT 21, Alkaline Phosphatase 85, Lipase 18 L Assessment and Plan - Advance Directives Does patient have a Living Will: No Does patient have a Durable POA for Healthcare: No
[2019-08-05 14:37] LABS: Albumin 2.8 g/dL (3.4-5.0); Bilirubin Direct 0.2 mg/dL (0-0.2); Bilirubin Total 0.4 mg/dL (0.2-1.0); Protein, Total 6.1 g/dL (6.4-8.2)
[2019-08-05 14:39] LABS: Creatine Phosphokinase 104 U/L (39-308); Magnesium 2.1 mg/dL (1.8-2.4); Troponin I < 0.02 ng/mL (0.0-0.045)
[2019-08-05] MEDS ORDERED: HYDROMORPHONE HCL 2 MG/ML inj IV PRN (15:13)
[2019-08-05] MEDS: FUROSEMIDE 40 MG/4 ML VIAL IV SCH (17:55)
[2019-08-05] MEDS: METOPROLOL TAR 25 MG TAB PO SCH (17:55)
--- NOTE | 2019-08-05 19:50 | CON ---
Date of Consultation: 08/05/2019 Reason For Service: Rib fractures. History Of Present Illness: This is a case of a 74-year-old patient, who comes to the hospital after he says he was walking and hit with his chest an object and kind of fall on it after that, and basic ally comes with the rib fractures and a fracture of his arm. He stated he did not pass out. He did not get dizzy, he would just move across the area. There were some other people in the house when he asked for help they came and since they going to put him in the car, they may have called the ambula ritika, come to the ER, did the workup by the ER physician then find out that the patient to have multip le rib fractures, and patient is going to go for possible surgery for orthopedic fracture and he aske d for us for clearance. Patient denies any LOC. He was ambulatory after by himself. The patient is of [facility] patient and understand the ER physician was trying to get into the [facility], but a pparently did not have any space for him at this time. The patient had extensive medical history inc lude atrial fibrillation, coronary artery disease, CVAs, diabetes, chronic anticoagulation, hypertens ion and back surgery. Review of Systems: Ten-point system was unremarkable. Medical History: As above. Surgeries: Include back surgery. He has also any midline incision and I asked him and he stated lady t he has chronic hernias and he has hernia with mesh placed although he is not that good any details. He states it was in the 90s it was done. Social History: He does not smoke. He does not drink alcohol. Family History: Noncontributory. Allergies: MORPHINE EARLY GAVE HIM JUST HALLUCINATION. Physical Examination: General: The patient is awake and alert. Not in distress. HEENT: Pupils anicteric. EOM positive. No otorrhea. No rhinorrhea. Neck: Supple. No point tenderness, no step-off. Chest: Bilateral breath sounds. Over the area of the left rib cage, patient has tenderness, but no step-off, no bruises, no clots. No hematomas at this time. Abdomen: Soft and depressible. No guarding, rebound, or peritoneal signs. Pelvis: Stable. Genitalia: Fair. Extremities: Good capillary refill. No step-off, no pinpoint tenderness. The left arm is already o n a splint. Orthopedic doctor is planning to take him to surgery, so we inspect the extremities and thus the radialis pulses still present and finger still present. We did not move his elbow. The res t of extremities, full range of motion. Neuro: Oriented x3. GCS 15. Data: Blood work shows WBC count of 7.8, hemoglobin of 12, INR is 1.16. A potassium of 5.8. CT of t he head C-spine, chest, abdomen, and pelvis shows no intracranial hemorrhage. No fracture of the spi ne. Mildly displaced left lateral 6, 7, 8 and 9 ribs. No pneumothorax seen. No evidence of intraab dominal injury. Assessment: A 74-year-old patient, admitted to the hospital with multiple rib fracture at least 4 in the left side also, moderately displaced fracture of the ulna, difficult to say if it is radial frac ture or not. From a trauma standpoint, obviously, we did not see any evidence of pulmonary contusion at this moment, although we cannot rule that out completely, it may take some time to develop. From the surgical standpoint, the patient needs to be taken emergently then he is okay from a surgical st andpoint. Otherwise we will watch over the next 24 hours and see how he develop. They feel Orthoped ic doctor have to do those emergently then we can go ahead and do so, otherwise once again and the ne xt 24 hours, we will give a better idea of his lung status. Incentive spirometry. Pain control. Garibay s multiple medical problems, so the hospitalist and Medical Services are dealing with those at this moment inclu ding his anticoagulation. HM/MODL Voice ID: [id number] Report ID: [id number]
[2019-08-05] MEDS ORDERED: NALOXONE 0.4 MG/ML VIAL ONE (19:53)
[2019-08-05] MEDS ORDERED: NALOXONE HCL 2 MG/2 ML VIAL IV PRN (19:55)
--- NOTE | 2019-08-05 20:24 | P.PN ---
Date of Service: 08/05/19 Rapid response was called on the patient because he became unresponsive. The patient oxygen saturation was reported to be as low as 38%. The patient noted to be unresponsive, gasping for air. Fingerstick glucose: 289. Blood pressure 83/51. He is afebrile. Airway: Clear. Lung auscultation: Adequate breath sounds bilaterally, no stridor, no rhonchi or wheezes. Patient placed on 100% non-rebreather. He was given a dose of Dilaudid 3 mg IV. I suspect opioid toxicity. Patient became more awake after a dose of Narcan 0.4 mg. Plan: 1 L normal saline IV bolus Transfer to the ICU Oxygen therapy Start Narcan drip at 0.25 mg/hr. Neurochecks.
[2019-08-05] MEDS ORDERED: NALOXONE 2 MG in NA CHLORIDE 0.9% 500 ML IV SCH (21:00)
[2019-08-05] MEDS: LATANOPROST 0.005% 2.5ML OPTH OPTH SCH (21:00)
[2019-08-05] MEDS: PANTOPRAZOLE 40MG TABLET PO SCH (21:20)
--- NOTE | 2019-08-06 01:42 | HP ---
Date of Admission: 08/05/2019 Presenting Complaint: Fall with left arm pain. History Of Present Illness: Mr. Parrish Laura is a 74-year-old male with past medical histo ry of atrial fibrillation, diastolic CHF, hypertension, history of recurrent falls, diabetes mellitus , prior CVA with no residual hemiparesis, AICD placement/pacemaker, who presented to the hospital [facility] after having a fall. Patient states he has woken up in the middle of the night to use the [employer] m and while walking back to his bed. He think he has tripped on something and fell landing on his le ft side. He admits to pain over his left rib margin as well as his left arm. He denies any dizzines s or loss of consciousness. He denies any bowel incontinence. In the ED, he had imaging done with finding of multiple right rib fractures as well as a left ulnar fracture. He has been admi tted for that case. Patient admits to feeling weakness in his legs with footdrop from his last CVA. He states he has some intermittent unsteady gait at baseline. He states he has been falling a lot i n the last couple of weeks. He denies any fever, chills. He denies any cough or shortness of breath . He admits to history of chronic hyperkalemia with resultant episodes of heart block in the past. Past Medical History: Hypertension; CAD; history of CVA with left footdrop; diabetes mellitus, type 2; history of pacemaker placement; history of atrial fibrillation, on chronic anticoagulation, previo usly on Coumadin, now on Eliquis. Past Surgical History: Hernia repair, pacemaker placement. Home Medications: See extensive medication list. Allergies: CONFUSION WITH MORPHINE. Family History: The patient denies any history of CVA. Social History: Patient denies any alcohol, tobacco, or illicit drug use. Resides in the community with his spouse. Review of Systems: All systems reviewed x14 were negative except as mentioned above. Physical Examination: Vital Signs: On presentation, blood pressure was 130/70, pulse of 85, respiratory rate of 18, O2 sat uration 100 on room air. General: Obese, elderly male, lying in bed, not in any distress. HEENT: Head is atraumatic, normocephalic. Pupils equal, reactive to light. No periorbital ecchymos is. Neck: No JVD. No carotid bruit. Respiratory: Good air entry, but decreased over the right base, although no area of specific chest w all tenderness. Cardiovascular: S1, S2. Rate and rhythm regular. GI: Abdomen is full, soft, nontender. Old abdominal wall scar noted. No suprapubic fullness. Extremities: Trace to 1+ pedal edema bilaterally, but no calf tenderness. Left arm in a sling splin t. Neuro: Patient is alert, oriented. No cranial nerves 2 through 12 grossly intact. Laboratory Data: EKG shows normal sinus rhythm with first-degree AV block. Rest of labs stable. CT shows radial neck and proximal ulnar neck fracture with . Chest x-ray shows several left lateral displaced rib fractures. No evidence of pneumothorax. Head and spine CT as well as abdomin al CT shows mildly displaced left lateral 6, 7, 8 and 9th rib fractures. No intracranial acute proce sses, moderate gliosis noted. Rest of laboratory data: WBC 7.8, hemoglobin 12, platelet 176, neutro phils 92%. INR 1.1. Sodium 138, potassium 5.8, bicarb 28, creatinine 1.2, calcium 8.4. ProBNP of 1 039. Lipase 18. Urinalysis shows 20-50 wbc. CK pending. Impression: 1.Recurrent falls. 2.Multiple left rib fractures. 3.Left ulnar and radial fracture. 4.Presumed rhabdomyolysis though pending CK level. 5.Hypertension history. 6.Atrial fibrillation on chronic anticoagulation with Eliquis. Plan: 1.We will admit patient to inpatient status. We will manage patient for the following. a.Recurring fall with multiple fractures. We will consult Trauma team. General surgery has been co nsulted. We will also consult Orthopedics. We cleared the patient for surgery. Given plan for surg xin, we will hold Eliquis for now and do Lovenox q.12 hours as needed. Since patient in sinus rhythm , low risk of atrial fibrillation induced thrombosis at this time. We do adequate pain management wi th p.o. [place] for now. If uncontrolled pain symptoms, patient might need IV Dilaudid. Follow CK lev el for possible presumed rhabdomyolysis. 2.Hyperkalemia, history of recurrent elevated potassium noted. The patient may need Nephrology cons ult. We will start patient on Kayexalate, calcium gluconate and insulin as well as start patient on IV fluid with normal saline and IV Lasix now for diuresis. Given mild elevated proBNP, the patient m ay need urine workup of potassium level when more stable. 3.Hypertension. Continue home regimen after medication reconciliation done. 4.Presumed urinary tract infection, possibly cause of fall. We will start patient on empirical Roce phin. Follow urine culture. 5.Diabetes mellitus. We will do insulin sliding scale for now. Hold long-acting insulin. 6.Atrial fibrillation, currently in sinus rhythm. Can resume Eliquis postsurgery. 7.Advanced directive discussed with patient. Patient wishes to be full code. Total time spent review of record discussion with patient and evaluation as well as monitoring, great er than 60 minutes. LUCIUS/DARIEN Voice ID: [id number]
[2019-08-06] MEDS: NA CHLORIDE 0.9% 1,000 ML IV SCH (01:50)
--- NOTE | 2019-08-06 03:21 | CON ---
Date of Consultation: 08/05/2019 History Of Present Illness: This is my first time seeing this patient to my knowledge. He is a 74-y ear-old male who unfortunately says that he has had a series of strokes which made him very weak on h is left side. He says initially he could not use his left side at all. However, now he can use his left side, however, only for very minimal activities. He essentially has no strength and poor coordi nation of his hand on the left. I am called to see him because of an injury to his elbow. It should also be noted that he also has multiple rib fractures by report and General Surgery is monitoring fo r any development of this problem, however, currently does not have any pulmonary contusion, pneumoth orax that is visible. Physical Examination: He is in a very well-padded long-arm splint. He was asked to move his fingers and he can do this, ho wever, this is discoordinated and he is not able to do this very well. This is apparently normal for him. He is obviously not neurovascularly intact from previous stroke, however, is able to move his fingers. His fingers are free in the splint. Imaging Studies: Review of his x-rays reveal a highly comminuted fracture of the proximal ulna. Thi s does appear to include the coronoid. There also appears to be a fracture of the radial neck. The radius itself appears to be located into the radiocapitellar joint. The elbow itself appears to be l ocated into the ulnohumeral joint at least at this point. Assessment: This is a 74-year-old male who unfortunately is suffering from hemiplegia on the left si de, now with a very complex closed elbow fracture. Plan: At this time I think it is reasonable to get a CT scan of the elbow to assess relative positio n of the fracture fragments as well as their sizes. I think this most likely represents a terrible t elan or terrible triad equivalent or at least a Monteggia type B. either one of these was quite comp alejandra with regard to management and operative intervention probably is not the best course of action be cause of the patient's osteopenia as well as limited use of his elbow, so arthroplasty may be his onl y reasonable alternative to conservative care. On speaking with the patient, he says he has been rosy d that he cannot undergo anesthesia because of his medical problems. He has told that he will underg o the treatment conservatively. At this point, I think we will treat it conservatively in a splint a t least for sometime and then begin gentle motion of the elbow. If he does need a total elbow in the future, perhaps this may be considered and this is [address] scan will be able to assess t he actual fracture fragments in position. He says he understands things as presented. I think he ca n see me back in followup as an outpatient. CATIA Voice ID: [id number] Report ID: [id number]
[2019-08-06] MEDS: HYDROCODONE/APAP 5/325 MG TAB PO PRN ×4 (03:52→21:04)
--- NOTE | 2019-08-06 05:29 | EKG ---
Test Date: 2019-08-05 Test Time: 08:11:29 Cello Teacher: MELLISA MEASUREMENT RESULTS: Intervals: Rate: 77 IN: 210 QRSD: 72 QT: 412 QTc: 466 Lagrange: P: 93 IN: 210 QRS: 89 T: 96 INTERPRETIVE STATEMENTS: Sinus rhythm with 1st degree AV block Otherwise normal ECG Compared to ECG 07/16/2018 12:09:34 Ventricular premature complex(es) no longer present Prolonged QT interval no longer present Electronically Signed On 08-06-19 05:28:52 AED TRAINER by Wang Long
[2019-08-06 05:33] LABS: Albumin 2.5 g/dL (3.4-5.0); Bilirubin Total 0.3 mg/dL (0.2-1.0); Magnesium 2.1 mg/dL (1.8-2.4); Potassium 4.3 mmol/L (3.5-5.1); Protein, Total 5.9 g/dL (6.4-8.2)
[2019-08-06] MEDS ORDERED: NA CHLORIDE 0.9% 1,000 ML IV SCH (06:00)
[2019-08-06] MEDS: METOPROLOL TAR 25 MG TAB PO SCH (06:05)
[2019-08-06] MEDS: INSULIN -REGULAR HUMAN 50 UNIT/0.5 ML ML SQ SCH ×4 (07:30→21:07)
[2019-08-06] MEDS ORDERED: WARFARIN SODIUM 5 MG TAB PO SCH (09:00)
[2019-08-06] MEDS: PREGABALIN 150 MG CAP PO SCH ×3 (10:14→21:06)
[2019-08-06] MEDS: FUROSEMIDE 40 MG/4 ML VIAL IV SCH (10:14)
[2019-08-06] MEDS: FINASTERIDE 5 MG TAB PO SCH (10:14)
[2019-08-06] MEDS: PANTOPRAZOLE 40MG TABLET PO SCH (10:16)
[2019-08-06] MEDS: ENOXAPARIN 40 MG/0.4 ML SQ SCH (10:16)
[2019-08-06] MEDS: CEFTRIAXONE/SWI 1gm 1 GM/10 ML SYR IVP SCH (10:16)
--- NOTE | 2019-08-06 10:22 | RAD REPORT ---
EXAM DESCRIPTION: RAD - Chest Single View - 08/06/2019 9:51 am CLINICAL HISTORY: Chest trauma, left-sided rib fractures COMPARISON: August 05 TECHNIQUE: AP portable chest image was obtained using expiration technique 0947 hours . FINDINGS: Lung volumes are low. No left-sided pneumothorax identifiable. An anterior pneumothorax ca n be present an occult on a portable examination. Left pleural effusion has not changed. Right lung f ield is stable. Heart and vasculature are normal. No acute bony abnormality seen. No acute aortic fin dings suspected. IMPRESSION: No left-sided pneumothorax is identifiable. Anterior pneumothorax can be occult on a por table chest study. Left-sided rib fractures and left-side pleural effusion stable from comparison.
--- NOTE | 2019-08-06 11:12 | ECHO ---
HEIGHT: 5 ft 8 in WEIGHT: 183 lb 11.2 oz DATE OF STUDY: 08/06/[address]: Charlee London MD 2-DIMENSIONAL: YES M.MODE: YES DOPPLER: YES COLOR FLOW: YES TDS: YES PORTABLE: YES DEFINITY: NO BUBBLE STUDY: NO DIAGNOSIS: CEREBRAL VASCULAR ACCIDENT CARDIAC HISTORY: CATHERIZATION: YES SURGERY: NO PROSTHETIC VALVE: NO PACEMAKER: YES MEASUREMENTS (cm) DIASTOLIC (NORMALS) SYSTOLIC (NORMALS) IVSd 1.0 (0.6-1.2) LA Diam 4.1 (1.9-4.0) LVEF 78% LVIDd 4.1 (3.5-5.7) LVIDs 2.2 (2.0-3.5) %FS 46% LVPWd 0.9 (0.6-1.2) Ao Diam 2.9 (2.0-3.7) 2 DIMENSIONAL ASSESSMENT: RIGHT ATRIUM: NORMAL LEFT ATRIUM: NORMAL RIGHT VENTRICLE: NORMAL LEFT VENTRICLE: NORMAL TRICUSPID VALVE: NORMAL MITRAL VALVE: NORMAL PULMONIC VALVE: NORMAL AORTIC VALVE: NORMAL PERICARDIAL EFFUSION: NONE AORTIC ROOT: NORMAL LEFT VENTRICULAR WALL MOTION: NORMAL DOPPLER/COLOR FLOW: NORMAL COMMENTS: NORMAL 2D ECHOCARDIOGRAM WITH DOPPLER. A PACEMAKER CATHETER IS NOT SEEN ON THIS STUDY. TECHNOLOGIST: Dior TOMLIN
[2019-08-06] MEDS ORDERED: ALPRAZOLAM 0.5 MG TABLET PO ONE (11:24)
--- NOTE | 2019-08-06 11:35 | P.PN ---
Subjective Date of Service: 08/06/19 Chief Complaint: fall Subjective: Other (complained pain) Review of Systems General: Weakness Eyes: Unremarkable ENT: Unremarkable Respiratory: Cough, SOB with Excertion, Pleuritic Pain Gastrointestinal: Unremarkable Genitourinary: Unremarkable Musculoskeletal: Arm Pain, Leg Pain Neurological: Unremarkable Physical Examination - Vital Signs Temperature: 97.2 F Blood Pressure: 102/52 Pulse: 66 Respirations: 16 Pulse Ox (%): 93 - Physical Exam General: Alert, Oriented x3, Moderate distress (from pain) HEENT: Atraumatic Neck: Supple Respiratory: Other (b/l rhonchi, pain on the left chest wall on pappitation) Cardiovascular: No edema, Regular rate/rhythm, Normal S1 S2 Gastrointestinal: Hypoactive, Soft and benign, Non-distended, No tenderness Musculoskeletal: No swelling, No contractures, No erythema, Other (left arm on fixation) Neurological: Normal speech, Normal tone Assessment And Plan - Current Problems (Diagnosis) (1) A-fib Current Visit: Yes Status: Acute (2) COPD (chronic obstructive pulmonary disease) Current Visit: Yes Status: Acute (3) History of CVA (cerebrovascular accident) Current Visit: Yes Status: Acute (4) Multiple rib fractures Current Visit: Yes Status: Acute (5) Ulna fracture Current Visit: Yes Status: Acute (6) DM2 (diabetes mellitus, type 2) Current Visit: Yes Status: Acute (7) Hyperkalemia Current Visit: Yes Status: Acute (8) HTN (hypertension) Current Visit: Yes Status: Acute (9) Diabetes mellitus Onset Date: 12/18/15 Current Visit: No Status: Chronic Qualifiers: Diabetes mellitus type: type 2 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 Unresponsiveness from dilaudid. Now he is awake and alert or oriented. On [place] for pain 2. Multiple fracture. Ortho was consulted. Recommended conservative treatment at this moment. 3. C/W home metoprolol for a fib. Now he is NSR. Hold Eliquis 4. On SSI for DM. Hold Lantus due to hypoglycemia. 5. C/W resp treatment and IV abx for PNA and COPD. Pulm was consulted. 6. C/W pain management Discharge Plan: [facility] Plan to discharge in: Unknown - Code Status/Comfort Care Code Status: Full Code
--- NOTE | 2019-08-06 12:49 | P.CNS ---
Date of Consult: 08/06/19 Reason for Consult: Respiratory distress Chief Complaint: fall History of Present Illness: Patient is 74 years of age with a history of presumed COPD has home oxygen and fell he was given some Demerol became unresponsive transfer to the ICU is very alert responsive cooperative anxious agitated patient had a fracture in his left arm Allergies morphine Adverse Reaction (Severe, Verified 08/05/19 13:52) hallucination hydromorphone [From Dilaudid] Adverse Reaction (Verified 08/06/19 08:24) narcan needed, bp dropped, sats dropped, unresponsive Home Medications: Apixaban [Eliquis] 5 mg PO DAILY 08/05/19 Calcium Carbonate/Vitamin D3 [Calcium 250-D Tablet] 250 mg PO DAILY 08/05/19 Docusate Calcium 240 mg PO DAILY 08/05/19 Finasteride [Proscar*] 5 mg PO DAILY 08/05/19 Insulin Detemir [Levemir] 30 units SQ DAILY 08/05/19 Insulin Glargine Human [Lantus*] 12 units SQ ACHS 08/05/19 Latanoprost/Pf [Latanoprost 0.005% Eye Drop] 2 drops EACH EYE DAILY 08/05/19 Lidocaine [Lidocaine Pain Relief] 1 patch TOP DAILY 08/05/19 Loratadine [Claritin*] 10 mg PO DAILY 08/05/19 Metoprolol Succinate [Toprol Xl*] 25 mg PO DAILY 08/05/19 Omeprazole 20 mg PO DAILY 08/05/19 Oxybutynin Chloride [Oxybutynin Chloride ER] 5 mg PO TID 08/05/19 Pregabalin [Lyrica] 150 mg PO TID 08/05/19 Ranitidine HCl [Heartburn Relief] 300 mg PO DAILY 08/05/19 Simvastatin 10 mg PO BEDTIME 08/05/19 Tamsulosin HCl [Flomax] 0.4 mg PO DAILY 08/05/19 - Past Medical/Surgical History Diabetic: Yes -: Atrial fibrillation -: CAD -: 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 Will need information from family. - Family History Father Medical History: Cancer Mother Medical History: Cancer - Social History Smoking Status: Never smoker Alcohol use: No CD- Drugs: No Caffeine use: No Place of Residence: Home Review of Systems General: Weakness Respiratory: Shortness of Breath Musculoskeletal: Other (Arm pain) Neurological: Weakness (Weakness on the left side from his prior strokes) Physical Examination Temp Pulse Resp BP Pulse Ox 97.2 F 78 19 98/62 86 L 08/06/19 11:47 08/06/19 12:00 08/06/19 12:00 08/06/19 12:00 08/06/19 12:00 General: Alert, Mild distress Neck: Supple Respiratory: Diminished, Expiratory wheezes Cardiovascular: No edema, Regular rate/rhythm, Normal S1 S2 Gastrointestinal: Normal bowel sounds, Soft and benign Musculoskeletal: No clubbing, No swelling Integumentary: No rashes, No breakdown - Problems (1) Respiratory failure Current Visit: Yes Status: Acute Plan: Patient is 74 years of age with a history of presume COPD admitted with a fall he had a fracture of his right arm as detailed on the chest x-ray little hypoxic chest x-ray prominent right hilum mild cardiomegaly normal echocardiogram recommend trial of bronchodilators steroids urinalysis shows gram -negative rods patient has several rib fractures on the left side with Crawford evidence of pneumothorax patient's labs reviewed mildly anemic I have added some steroids Qualifiers: Chronicity: unspecified
[2019-08-06] MEDS: ARFORMOTEROL TARTRATE 15 MCG/2 ML VIAL.NEB NEB SCH ×2 (13:15→20:00)
[2019-08-06] MEDS: METHYLPREDNISOLONE 40 MG INJ IV SCH ×2 (13:51→18:07)
[2019-08-06] MEDS ORDERED: PREGABALIN 150 MG CAP PO SCH (14:00)
[2019-08-06] MEDS: IPRATROPIUM BROM 0.5MG/2.5ML NEB SCH ×2 (14:20→20:00)
[2019-08-06] MEDS: OXYBUTYNIN ER 5 MG TAB PO SCH ×2 (16:47→21:06)
[2019-08-06] MEDS: ALBUTEROL 2.5 MG/3 ML NEB SOL NEB PRN (20:00)
[2019-08-06] MEDS: LATANOPROST 0.005% 2.5ML OPTH OPTH SCH (21:00)
[2019-08-06] MEDS: ATORVASTATIN 10 MG TAB PO SCH (21:05)
[2019-08-07] MEDS: METHYLPREDNISOLONE 40 MG INJ IV SCH ×3 (01:33→17:00)
[2019-08-07] MEDS: IPRATROPIUM BROM 0.5MG/2.5ML NEB SCH ×4 (02:05→19:42)
[2019-08-07] MEDS: HYDROCODONE/APAP 5/325 MG TAB PO PRN ×2 (04:12→18:50)
[2019-08-07 05:25] LABS: Absolute Lymphocytes (CBC) 0.3 K/uL (0.7-4.9); Basophils % 0.1 % (0-1.3); Hematocrit 32.5 % (39.6-49.0); Lymphocytes % 2.6 % (15.3-44.8); MPV 8.6 fL (7.6-11.3); RBC Red Blood Cell Count 3.44 M/uL (4.33-5.43)
[2019-08-07 05:40] LABS: Potassium 4.8 mmol/L (3.5-5.1)
[2019-08-07] MEDS: ARFORMOTEROL TARTRATE 15 MCG/2 ML VIAL.NEB NEB SCH ×2 (08:10→19:42)
[2019-08-07] MEDS: ALBUTEROL 2.5 MG/3 ML NEB SOL NEB PRN ×2 (08:10→14:50)
--- NOTE | 2019-08-07 08:12 | P.PN ---
Subjective Date of Service: 08/06/19 Chief Complaint: fall Subjective: New changes (pt transferred to ICU for medical reasons) Review of Systems General: Weakness Respiratory: As per HPI Gastrointestinal: Unremarkable Musculoskeletal: As per HPI Physical Examination - Vital Signs Temperature: 98.4 F Blood Pressure: 139/67 Pulse: 63 Respirations: 15 Pulse Ox (%): 98 - Physical Exam General: Alert, Oriented x3, Cooperative HEENT: PERRLA, EOMI Gastrointestinal: Soft and benign, No rebound, No guarding Musculoskeletal: Cast in place (Sling) Integumentary: No rashes, No breakdown Neurological: Normal speech Assessment And Plan - Plan Incentive spirometry Continue medical management surgical intervention timing per Ortho No general surgery/trauma surgery intervention planned
[2019-08-07] MEDS: RANITIDINE 150 MG TABLET PO SCH (08:36)
[2019-08-07] MEDS: CEFTRIAXONE/SWI 1gm 1 GM/10 ML SYR IVP SCH (08:36)
[2019-08-07] MEDS: TAMSULOSIN 0.4 MG SR CAP PO SCH (08:36)
[2019-08-07] MEDS: PREGABALIN 150 MG CAP PO SCH ×3 (08:36→21:46)
[2019-08-07] MEDS: INSULIN -REGULAR HUMAN 50 UNIT/0.5 ML ML SQ SCH ×4 (08:36→21:46)
[2019-08-07] MEDS: METOPROLOL XL 25 MG TAB PO SCH (08:37)
[2019-08-07] MEDS: OXYBUTYNIN ER 5 MG TAB PO SCH ×3 (08:37→21:46)
[2019-08-07] MEDS: FINASTERIDE 5 MG TAB PO SCH (08:37)
[2019-08-07] MEDS: ENOXAPARIN 40 MG/0.4 ML SQ SCH (08:38)
[2019-08-07] MEDS ORDERED: HOME MED 1 EA UNK (Omeprazole [Omeprazole] 20 MG) PO SCH (09:00)
[2019-08-07] MEDS ORDERED: FINASTERIDE 5 MG TAB PO SCH (09:00)
[2019-08-07] MEDS ORDERED: NA CHLORIDE 0.9% 1,000 ML IV SCH ×2 (10:00)
[2019-08-07] MEDS ORDERED: Magnesium Sulfate 2gm IVPB 2 G/50 ML BAG IV ONE (10:14)
[2019-08-07 11:29] LABS: Phosphorus 3.1 mg/dL (2.5-4.9)
[2019-08-07 11:43] LABS: Thyroid Stimulating Hormone 0.749 uIU/mL (0.360-3.740)
--- NOTE | 2019-08-07 12:26 | CON ---
Date of Consultation: 08/06/2019 Chief Complaint: Abnormal renal function test, [id number] kidney injury. History Of Present Illness: Nephrology consultation is requested for evaluation and management of [id number] kidney injury. Patient has nonoliguric urine output. Patient was found to have elevated azotemia. Creatinine level has been trending up and fluctuating patient as well, was found to have hyperpotassemia. Potassium was 5.8. There was no evidence of metabolic acidosis. Potassium level was 5.8, sodium 138, chloride 107, CO2 28, BUN 16, creatinine 1.25, calcium 8.4. BNP was elevated up to 1039. Patient is in ICU. Patient has history of acute kidney injury previously. Creatinine was up to 1.45. Baseline creatinine 1.12 up to 1.2. He developed prerenal azotemia in the past. Renal function stabilized. Patient, although may have underlying chronic kidney disease stage 3 due to benign nephrosclerosis and hypertensive kidney disease. Patient has history of BPH, was evaluated for urinary retention. Patient has multiple medical problems including history of chronic back pain, tobacco usage, atrial fibrillation, coronary artery disease, history of CVA x2 back in 1993, diabetes mellitus type 2, hypertension. He is 74-year-old man with history of stroke, left-sided hemiparesis, minimal activity, deconditioning. He is evaluated by Orthopedic Service for injury of his elbow. He was found to have multiple rib fracture. He came to the hospital, complaining of low blood glucose. He developed hypoglycemia, precipitated by taking insulin in the morning before he was admitted to the hospital. He did not eat breakfast back to his insulin. Administer glucagon. Check his blood glucose on arrival and it was 30. After treatment, blood glucose improved to 51. Patient was admitted to the hospital for altered mental status. He has multiple medical problems. He was treated with amiodarone for atrial fibrillation. He has seen, evaluated by surgical team for history of fall and injury to the chest wall with rib cage fracture. Review of Systems: Unobtainable. Past Medical History: Hypertension, stroke, diabetes mellitus, chronic kidney disease stage 3, history of acute kidney injury with prerenal azotemia, AICD, congestive heart failure with diastolic dysfunction, deconditioning, hypertension, on chronic anticoagulation for atrial fibrillation, previously on Coumadin and recently on Eliquis. Past Surgical History: Hernia repair, pacemaker placement. Family History: Denies history of kidney disease in the family. No known history of CVA. Social History: Patient denies alcohol, tobacco, or illicit drugs. Physical Examination: Vital Signs: Blood pressure 130/70, heart rate 85, respiratory rate 18, SpO2 100% on O2 nasal cannula. Eyes: Anicteric sclerae. EOMI. Ears, Nose, Mouth and Throat: Oral mucosa moist. No pallor. Neck: Supple. No bruits. Lungs: Clear to auscultation bilaterally. Heart: S1, S2. No pericardial friction rub Abdomen: Soft, benign, nontender. Extremities: Slight edema. No oozing Neurologic: No tremor. CN intact Skin: warm and dry , no skin rashes Laboratory Data: Magnesium 1.7, glucose is 281. Sodium 145, potassium 4.3, chloride 111, CO2 31, BUN 13, creatinine 1.17, calcium 7.6, magnesium 2.1. Impression And Plan: 1. Prerenal azotemia status post fall. Recommend to monitor CK level and continue mild hydration to prevent rhabdomyolysis related hyperkalemia as well as acute kidney injury. On arrival to the hospital, patient had hyperkalemia. Plan is to check renal ultrasound to rule out obstructive uropathy. 2. Hypoalbuminemia. Patient needs to be rule out for severe proteinuria and monoclonal gammopathy. 3. Urinalysis was done and is positive for nitrites and has multiple WBC. Recommend to check urine culture to rule out urinary tract infection and adjust antibiotics accordingly. AJIT/DARIEN Voice ID: [id number] Report ID: [id number] LOBO
--- NOTE | 2019-08-07 14:04 | RAD REPORT ---
EXAM DESCRIPTION: US - Renal Ultrasound-Complete - 08/07/2019 1:53 pm CLINICAL HISTORY: ckd, arf COMPARISON: CT abdomen pelvis December 2018 FINDINGS: The right kidney measures 8.8 x 3.9 x 4.3 cm. The left kidney measures 7.3 x 4.0 x 3.3 cm . Cortical thickness is normal. Echogenicity is increased for both kidneys. This could be from medica l renal disease, body habitus artifact or a combination. No hydronephrosis or suspicious renal mass. No bladder wall thickening or mass. No intraluminal stone or mass. IMPRESSION: No hydronephrosis or suspicious renal mass. Increased cortical echogenicity without cortical thinning. This could be body habitus artifact or med ical renal disease.
[2019-08-07] MEDS: NA CHLORIDE 0.9% 1,000 ML IV SCH (14:20)
--- NOTE | 2019-08-07 14:32 | RAD REPORT ---
EXAM DESCRIPTION: RAD - Chest Single View - 08/07/2019 2:04 pm CLINICAL HISTORY: Shortness of breath COMPARISON: August 06 in August 05 portable imaging ; November 2016 portable TECHNIQUE: AP portable chest image was obtained 1400 hours . FINDINGS: Low lung volumes accentuate lung markings. No significant failure or volume overload ident ifiable. Heart size is upper normal. No pneumothorax is present. Pacemaker is in place. Left costophrenic angle blunting is present. Left-sided rib fractures have been detailed. Rib detail is limited on this examination. Costophrenic angle blunting has been seen on prior imaging. Minimal p leural effusion could still be present. No acute aortic findings suspected. IMPRESSION: Shallow inspiration film shows left costophrenic angle blunting. Minimal pleural effusio n is likely and stable.
[2019-08-07 16:04] LABS: Urine Appearance CLEAR; Urine Bilirubin NEGATIVE (NEG); Urine Blood NEGATIVE (NEG); Urine Color YELLOW; Urine Glucose 3+ (NEG); Urine Protein NEGATIVE (NEG); Urine Specific Gravity >=1.030 (1.005-1.030); Urine Urobilinogen 0.2 mg/dL (0.2-1.0)
[2019-08-07 16:05] LABS: Urine Microscopic Reflex ORDER UMIC
[2019-08-07 16:17] LABS: Urine Bacteria <20 /HPF (NONE SEEN); Urine Culture Reflex Order REFLEXED; Urine RBC <5 /HPF (NONE SEEN)
--- NOTE | 2019-08-07 18:08 | PN ---
Date of Progress Note: 08/07/2019 Subjective: Patient feeling better. Still on nasal cannula. Physical Examination: Vital Signs: Blood pressure 105/91, pulse of 74. Patient had good urine output of 2 L. Patient was positive of 400. Chest: Crackles at bilateral bases. Heart: S1, S2. Regular. Abdomen: Soft, nontender. Extremities: No edema. Laboratory Data: WBC 10.5, H and H 10.7/32.5. Sodium 138, potassium 4.8, bicarb 32, BUN 16, creatin ine 1.6. Blood sugar 349, calcium 7.6. TSH 0.7. Urinalysis, wbc of 50. Current Medications: The patient on its include: 1.Ceftriaxone. 2.Flomax. 3.Lovenox. 4.Metoprolol. 5.Breathing treatment. 6.Zantac. 7.Solu-Medrol. 8.IV fluid. 9.Magnesium oxide. Assessment And Plan: 1.Acute kidney injury secondary to overdiuresis. The patient was started back on IV fluid. Diuresi s has been stopped. I am going to go ahead and order chest x-ray for better evaluation of his fluid status and we will monitor the patient, possible the acute kidney injury, also component of contrast- induced nephropathy as the patient had IV contrast on the 12th. We will follow up. 2.Hypertension, controlled, optimal. Continue current treatment. Avoid any ERA inhibitor or ARB. I am going to go ahead and decrease IV fluid to 50 per hour of normal saline. 3.Urinary tract infection. Continue ceftriaxone. 4.Chronic obstructive pulmonary disease exacerbation as by primary. YOU/DARIEN Voice ID: [id number] Report ID: [id number]
--- NOTE | 2019-08-07 19:10 | P.PN ---
Subjective Date of Service: 08/07/19 Chief Complaint: fall Subjective: No new changes, Doing well (Pt is doing better regarding to his pain ) Review of Systems General: Unremarkable Respiratory: Unremarkable Cardiovascular: Unremarkable Gastrointestinal: Unremarkable Genitourinary: Unremarkable Musculoskeletal: Other (left upper ext on fixation) Physical Examination - Vital Signs Temperature: 97.7 F Blood Pressure: 117/59 Pulse: 75 Respirations: 19 Pulse Ox (%): 95 - Physical Exam General: Alert, In no apparent distress, Oriented x3, Cooperative HEENT: Atraumatic, Normocephalic, PERRLA, EOMI Neck: Supple, JVD not distended Respiratory: Clear to auscultation bilaterally, Normal air movement, Other ( tenderness on the left chest ) Cardiovascular: No edema, Normal pulses, Regular rate/rhythm Gastrointestinal: Normal bowel sounds, Soft and benign, Non-distended, No rebound Musculoskeletal: No clubbing, Swelling (left hand), Cast in place Integumentary: No rashes, No breakdown Neurological: Normal gait, Normal speech, Normal strength at 5/5 x4 extr, Normal tone Assessment And Plan - Current Problems (Diagnosis) (1) A-fib Current Visit: Yes Status: Acute (2) COPD (chronic obstructive pulmonary disease) Current Visit: Yes Status: Acute (3) History of CVA (cerebrovascular accident) Current Visit: Yes Status: Acute (4) Multiple rib fractures Current Visit: Yes Status: Acute (5) Ulna fracture Current Visit: Yes Status: Acute (6) DM2 (diabetes mellitus, type 2) Current Visit: Yes Status: Acute (7) Hyperkalemia Current Visit: Yes Status: Acute (8) HTN (hypertension) Current Visit: Yes Status: Acute (9) Diabetes mellitus Onset Date: 12/18/15 Current Visit: No Status: Chronic Qualifiers: Diabetes mellitus type: type 2 Diabetes mellitus salvage determiner insulin use: with salvage determiner use Diabetes mellitus complication status: with unspecified complications (10) Altered mental status Current Visit: Yes Status: Acute - Plan Impression: 1. Recurrent falls. 2. Multiple left rib fractures. 3. Left ulnar and radial fracture. 4. JEB. 5. Hypertension. 6. Atrial fibrillation on chronic anticoagulation with Eliquis. 7. DM2 Plan: 1. Continue PT and pain management. 2. Orhto has been following the patient for ulna fracture. recommend conservative treatment. 3. Resumed OA as there is no plan for surgical intervention. 4. Hypertension. Continue home regimen after medication reconciliation done. 5. Presumed urinary tract infection, possibly cause of fall. We will start patient on empirical Rocephin. Follow urine culture. 5. Diabetes mellitus. We will do insulin sliding scale for now. Resumed home insulin regimen. 6. Discussed with case consultant for SNF placement. 7. Acute kidney injury secondary to overdiuresis. on IV fluid. CXR was ordered to evaluate fluid status. 8 Urinary tract infection. Continue ceftriaxone. 4. Chronic obstructive pulmonary disease exacerbation. On duoneb. Pulm added steroid. Discharge Plan: Skilled Nursing - Code Status/Comfort Care Code Status Assessed: Yes Code Status: Full Code
[2019-08-07] MEDS: LATANOPROST 0.005% 2.5ML OPTH OPTH SCH (21:00)
[2019-08-07] MEDS ORDERED: INSULIN GLARGINE 100 UNITS/ML SQ SCH (21:00)
[2019-08-07] MEDS: ATORVASTATIN 10 MG TAB PO SCH (21:46)
[2019-08-08] MEDS: HYDROCODONE/APAP 5/325 MG TAB PO PRN ×4 (00:48→17:41)
[2019-08-08] MEDS: METHYLPREDNISOLONE 40 MG INJ IV SCH ×2 (00:48→08:24)
[2019-08-08 00:53] LABS: Urine Protein/Creatinine Ratio 0.35 ratio (<0.15)
[2019-08-08] MEDS: IPRATROPIUM BROM 0.5MG/2.5ML NEB SCH ×4 (01:30→20:12)
[2019-08-08 05:52] LABS: Albumin 2.4 g/dL (3.4-5.0); Phosphorus 2.6 mg/dL (2.5-4.9)
[2019-08-08] MEDS: ARFORMOTEROL TARTRATE 15 MCG/2 ML VIAL.NEB NEB SCH ×2 (07:50→20:12)
[2019-08-08] MEDS: INSULIN -REGULAR HUMAN 50 UNIT/0.5 ML ML SQ SCH ×4 (08:23→21:00)
[2019-08-08] MEDS: INSULIN GLARGINE 100 UNITS/ML SQ SCH (08:24)
[2019-08-08] MEDS: CEFTRIAXONE/SWI 1gm 1 GM/10 ML SYR IVP SCH (08:24)
[2019-08-08] MEDS: APIXABAN 5 MG TABLET PO SCH ×2 (08:25→21:40)
[2019-08-08] MEDS: DOCUSATE CALCIUM 240 MG CAP PO SCH (08:25)
[2019-08-08] MEDS: FINASTERIDE 5 MG TAB PO SCH (08:25)
[2019-08-08] MEDS: CALCIUM 250 MG/VITAMIN D 125 IU TAB PO SCH (08:25)
[2019-08-08] MEDS: TAMSULOSIN 0.4 MG SR CAP PO SCH (08:26)
[2019-08-08] MEDS: METOPROLOL XL 25 MG TAB PO SCH (08:26)
[2019-08-08] MEDS: OXYBUTYNIN ER 5 MG TAB PO SCH ×3 (08:26→21:40)
[2019-08-08] MEDS ORDERED: HOME MED 1 EA UNK (Apixaban [Eliquis] 5 MG) PO SCH (09:00)
--- NOTE | 2019-08-08 09:33 | P.PN ---
Subjective Date of Service: 08/08/19 Primary Care Provider: [facility] Chief Complaint: fall Subjective: Other (Doing better. Pain better controlled.) Physical Examination - Vital Signs Temperature: 97.3 F Blood Pressure: 140/67 Pulse: 66 Respirations: 20 Pulse Ox (%): 95 - Physical Exam General: Alert, In no apparent distress, Cooperative HEENT: Atraumatic Neck: Supple Respiratory: Clear to auscultation bilaterally, Other (Patient to rib cage region better. ) Cardiovascular: Normal pulses, Regular rate/rhythm Gastrointestinal: Normal bowel sounds, Soft and benign, Non-distended Neurological: Normal speech, Normal strength at 5/5 x4 extr, Normal tone, Normal affect - Studies Medications List Reviewed: Yes Assessment & Plan Discharge Plan: Transfer Plan to discharge in: 24 Hours Physician Review Additional Text: Impression: Recurrent falls with multiple left rib fractures to the lateral 6th, 7th, 8th and 9th rib and left ulnar/radial fracture Acute renal injury likely dehydration likely with underlying chronic renal disease stage III Hypertension Atrial fibrillation on chronic anti coagulation therapy with Eliquis Diabetes mellitus type 2 insulin-dependent UTI, urine culture positive for E coli Acute respiratory failure secondary to COPD exacerbation with sputum culture positive for Pseudomonas, Proteus and Staph aureus Patient with pacemaker defibrillator Anemia likely of chronic disease Plan: Recurrent falls with multiple left rib fractures to the lateral 6th, 7th, 8th and 9th rib and left ulnar/radial fracture: Patient has done well. Pain seems to be better controlled. Ortho has evaluated patient. Ortho recommends no surgical prevention at this time. Continue conservative management. Fall precautions in place. Will have physical therapy assess ambulation. Patient will likely require inpatient rehab versus skilled placement. Since the patient is a [facility], patient will need be [facility] were he can continue to be reassessed and transfer to inpatient rehab versus skilled. Agrees with plan of care to transfer to the [facility] to continue his care. Will plan for transfer to the [facility]. Acute renal injury likely dehydration likely with underlying chronic renal disease stage III: This has improved. Encourage oral intake. Patient likely with underlying chronic renal disease stage III. Nephrology consulted. Continue with recommendation. Hypertension: Continue with medication. Will monitor and adjust appropriately. Atrial fibrillation on chronic anti coagulation therapy with Eliquis: Rate controlled. Continue with medication. Diabetes mellitus type 2 insulin-dependent: Continue with Accu-Cheks. Patient on sliding scale. Will continue to adjust appropriately. UTI, urine culture positive for E coli: Cultures reviewed. Will transition to oral Levaquin for total 7 days. Acute respiratory failure secondary to COPD exacerbation with sputum culture positive for Pseudomonas, Proteus and Staph aureus: Patient seen and evaluated by pulmonology. Will continue with steroid orally. Continue with COPD medication. X-ray shows improvement. Will also transition to oral Levaquin for total of 7 days. Patient with pacemaker defibrillator: Continue with medications. Anemia likely of chronic disease: Will check iron and B12 studies. H&H stable. Time Spent Managing Pts Care (In Minutes): 55
[2019-08-08] MEDS: NA CHLORIDE 0.9% 1,000 ML IV SCH (10:00)
[2019-08-08] MEDS: RANITIDINE 150 MG TABLET PO SCH (10:55)
[2019-08-08] MEDS: PREGABALIN 150 MG CAP PO SCH ×3 (10:56→21:40)
[2019-08-08] MEDS: ALBUTEROL 2.5 MG/3 ML NEB SOL NEB PRN (13:45)
--- NOTE | 2019-08-08 17:20 | PN ---
Date of Progress Note: 08/08/2019 Diagnosis: Status post fall and multiple rib fractures. Subjective: Patient doing better. Ambulating. No shortness of breath, no chest pain. Sitting on t he chair. Talkative. Cooperative. Tolerating diet. Objective: Chest: Bilateral breath sounds. Abdomen: Soft and depressible. No guarding or rebound. Plan: Continue treatment per primary doctor. I understand, [facility] We agree with that. Obviously, it is important he does not fall. He is having some difficult t silver since this left arm is important for him to hold the cane and hold some mother walking devices an d that is where Rehab will help him with that. From the surgical standpoint, follow up as an outpati ent in our office. JERO/DARIEN Voice ID: [id number] Report ID: [id number]
[2019-08-08] MEDS: LATANOPROST 0.005% 2.5ML OPTH OPTH SCH (21:00)
[2019-08-08] MEDS: ATORVASTATIN 10 MG TAB PO SCH (21:40)
--- NOTE | 2019-08-09 00:06 | PN ---
Subjective: Patient was admitted for recurrent fall, atrial fibrillation with UTI. Patient had acut e kidney injury secondary to overdiuresis. Yesterday, IV fluid has been restarted. Physical Examination: Vital Signs: When I saw the patient, blood pressure of 115/62, pulse of 67, afebrile. Patient had g ood urine output of 900, positive of 800. Chest: Faint crackles on the base. Heart: S1, S2. Regular. Systolic murmur. Abdomen: Soft, nontender. EXTREMITIES: Trace edema. Laboratory Data: WBC 10.5, H and H 10.7/32.5, platelets 167. Sodium 138, potassium 5, bicarb 32, BU N 21, creatinine 1.3 trending down, GFR 53, calcium 7.9, phosphorus 2.6, albumin 2.4. Current Medications: The patient on include: 1.Flomax. 2.Breathing treatment. 3.Eliquis. 4.Calcium carbonate. 5.Metoprolol. 6.Lyrica. 7.Prednisone. 8.Insulin. 9.Finasteride. Assessment And Plan: 1.Acute kidney injury, multifactorial secondary to overdiuresis superimposed with contrast-induced n ephropathy. On the recovery phase, we will discontinue IV fluid and we will monitor. 2.Hypertension, controlled, optimal. Continue to monitor the patient. We will discontinue IV fluid . 3.Urinary tract infection secondary to Escherichia coli. We will continue current treatment. 4.Pneumonia, multidrug, Proteus mirabilis, pseudomonas, Staphylococcus aureus. I agree with Levaquin going to cover the pneumonia and the UTI. YOU/DARIEN Voice ID: [id number] Report ID: [id number]
[2019-08-09] MEDS: IPRATROPIUM BROM 0.5MG/2.5ML NEB SCH ×4 (02:10→21:30)
[2019-08-09] MEDS: HYDROCODONE/APAP 5/325 MG TAB PO PRN ×3 (02:42→15:49)
[2019-08-09 05:34] LABS: Absolute Lymphocytes (CBC) 0.8 K/uL (0.7-4.9); Basophils % 0.3 % (0-1.3); Lymphocytes % 7.7 % (15.3-44.8); MPV 8.7 fL (7.6-11.3); RBC Red Blood Cell Count 3.65 M/uL (4.33-5.43)
[2019-08-09] MEDS: TRAMADOL HCL 50 MG TAB PO PRN (05:45)
[2019-08-09 06:20] LABS: Albumin 2.5 g/dL (3.4-5.0); Ferritin 104.5 ng/mL (26-388); Magnesium 2.7 mg/dL (1.8-2.4); Phosphorus 1.8 mg/dL (2.5-4.9); Potassium 4.7 mmol/L (3.5-5.1)
[2019-08-09] MEDS: ARFORMOTEROL TARTRATE 15 MCG/2 ML VIAL.NEB NEB SCH ×2 (07:34→21:30)
[2019-08-09] MEDS: PREGABALIN 150 MG CAP PO SCH ×3 (08:56→20:57)
[2019-08-09] MEDS: TAMSULOSIN 0.4 MG SR CAP PO SCH (08:56)
[2019-08-09] MEDS: METOPROLOL XL 25 MG TAB PO SCH (08:56)
[2019-08-09] MEDS: levoFLOXacin 500 MG TAB PO SCH (08:57)
[2019-08-09] MEDS: OXYBUTYNIN ER 5 MG TAB PO SCH ×3 (08:57→20:58)
[2019-08-09] MEDS: predniSONE 10 MG TAB PO SCH (08:57)
[2019-08-09] MEDS: FINASTERIDE 5 MG TAB PO SCH (08:57)
[2019-08-09] MEDS: RANITIDINE 150 MG TABLET PO SCH (08:57)
[2019-08-09] MEDS: CALCIUM 250 MG/VITAMIN D 125 IU TAB PO SCH (08:57)
[2019-08-09] MEDS: DOCUSATE CALCIUM 240 MG CAP PO SCH (08:58)
[2019-08-09] MEDS: INSULIN -REGULAR HUMAN 50 UNIT/0.5 ML ML SQ SCH ×4 (08:58→20:59)
[2019-08-09] MEDS: APIXABAN 5 MG TABLET PO SCH ×2 (08:58→20:58)
[2019-08-09] MEDS: INSULIN GLARGINE 100 UNITS/ML SQ SCH (08:59)
[2019-08-09] MEDS: LIDOCAINE 4% PATCH TOP SCH (09:04)
[2019-08-09 12:27] LABS: Blood Morphology Comment NOT SEEN (NOT SEEN); Platelet Estimate ADEQ; Urine White Blood Cell Casts OK
--- NOTE | 2019-08-09 14:14 | P.PN ---
Subjective Date of Service: 08/09/19 Primary Care Provider: [facility] Chief Complaint: fall Subjective: Improving, Doing well Physical Examination - Vital Signs Temperature: 97.7 F Blood Pressure: 127/60 Pulse: 74 Respirations: 20 Pulse Ox (%): 96 - Physical Exam General: Alert, In no apparent distress, Oriented x3, Cooperative HEENT: Atraumatic Neck: Supple Respiratory: Clear to auscultation bilaterally, Normal air movement Cardiovascular: Normal pulses, Regular rate/rhythm Musculoskeletal: No erythema, No tenderness, No warmth Neurological: Normal speech, Normal strength at 5/5 x4 extr, Normal tone - Studies Medications List Reviewed: Yes Assessment & Plan Discharge Plan: Home Plan to discharge in: 24 Hours Physician Review Additional Text: Impression: Recurrent falls with multiple left rib fractures to the lateral 6th, 7th, 8th and 9th rib and left ulnar/radial fracture Acute renal injury likely dehydration likely with underlying chronic renal disease stage III Hypertension Atrial fibrillation on chronic anti coagulation therapy with Eliquis Diabetes mellitus type 2 insulin-dependent UTI, urine culture positive for E coli Acute respiratory failure secondary to COPD exacerbation with sputum culture positive for Pseudomonas, Proteus and Staph aureus Patient with pacemaker defibrillator Anemia likely of chronic disease Plan: Recurrent falls with multiple left rib fractures to the lateral 6th, 7th, 8th and 9th rib and left ulnar/radial fracture: Patient has done well. Pain seems to be better controlled. Ortho has evaluated patient. Ortho recommends no surgical prevention at this time. Continue conservative management. Fall precautions in place. Continue with physical therapy at this time. Patient prefers to go home at discharge instead a going to skilled or inpatient rehab. [facility] has not responded for transfer. Will continue to reassess. Likely discharge tomorrow if okay with physical therapy. Acute renal injury likely dehydration likely with underlying chronic renal disease stage III: This has improved. Encourage oral intake. Patient likely with underlying chronic renal disease stage III. Nephrology consulted. Continue with recommendation. Hypertension: Continue with medication. Will monitor and adjust appropriately. Atrial fibrillation on chronic anti coagulation therapy with Eliquis: Rate controlled. Continue with medication. Diabetes mellitus type 2 insulin-dependent: Continue with Accu-Cheks. Patient on sliding scale. Will continue to adjust appropriately. UTI, urine culture positive for E coli: Cultures reviewed. Patient will continue with Levaquin for total 7 days. Acute respiratory failure secondary to COPD exacerbation with sputum culture positive for Pseudomonas, Proteus and Staph aureus: Patient seen and evaluated by pulmonology. Will continue with steroid orally. Continue with COPD medication. X-ray shows improvement. Continue with Levaquin for total of 7 days. Patient has home oxygen. Patient with pacemaker defibrillator: Continue with medications. Anemia likely of chronic disease: H&H stable. Time Spent Managing Pts Care (In Minutes): 55
[2019-08-09] MEDS: ATORVASTATIN 10 MG TAB PO SCH (20:57)
[2019-08-09] MEDS: LATANOPROST 0.005% 2.5ML OPTH OPTH SCH (21:00)
[2019-08-09] MEDS ORDERED: BISACODYL E.C. 5 MG TAB PO ONE (22:18)
--- NOTE | 2019-08-10 01:08 | PN ---
Date of Progress Note: 08/09/2019 History: The patient is doing well. The patient was admitted with atrial fibrillation and UTI with acute kidney injury secondary to over diuresis. Patient being off IV fluid. Physical Examination: Vital Signs: Blood pressure 112/64, pulse of 70, afebrile. Chest: Clear to auscultation. Heart: S1, S2. Systolic murmur. Abdomen: Soft, nontender. Extremities: No edema. Laboratory Data: H and H 11.6 and 34. Sodium 139, potassium 4.7, bicarb 32, BUN 24, creatinine 1.1, GFR of 61, TSAT of 24, ferritin 104. Current Medications: Include, 1.Flomax. 2.Breathing treatment. 3.Eliquis. 4.Calcium carbonate. 5.Lyrica. 6.Prednisone. 7.Insulin. 8.Finasteride. 9.Calcium carbonate. 10.Lyrica. Assessment And Plan: 1.Acute kidney injury secondary to over diuresis superimposed with contrast-induced nephropathy on t he recovery phase. We will keep holding IV fluid. 2.Hypertension, controlled, optimal. Continue current medication. 3.Urinary tract infection secondary to Escherichia coli. Continue current antibiotic. 4.Pneumonia, multifactorial, Proteus mirabilis and pseudomonas. Continue Levaquin. We will follow up with the primary. 5.Deconditioning. Continue PT, OT. YOU/DARIEN Voice ID: [id number] Report ID: [id number]
[2019-08-10] MEDS: IPRATROPIUM BROM 0.5MG/2.5ML NEB SCH ×4 (01:15→20:00)
[2019-08-10 03:58] LABS: Absolute Lymphocytes (CBC) 0.9 K/uL (0.7-4.9); Basophils % 0.2 % (0-1.3); Hematocrit 33.7 % (39.6-49.0); Lymphocytes % 14.7 % (15.3-44.8); MPV 8.7 fL (7.6-11.3); RBC Red Blood Cell Count 3.64 M/uL (4.33-5.43)
[2019-08-10 04:10] LABS: Albumin 2.3 g/dL (3.4-5.0); Magnesium 2.5 mg/dL (1.8-2.4); Phosphorus 1.6 mg/dL (2.5-4.9); Potassium 4.6 mmol/L (3.5-5.1)
[2019-08-10] MEDS: TRAMADOL HCL 50 MG TAB PO PRN ×2 (05:40→12:50)
[2019-08-10] MEDS: INSULIN -REGULAR HUMAN 50 UNIT/0.5 ML ML SQ SCH ×4 (07:30→20:48)
[2019-08-10] MEDS: ARFORMOTEROL TARTRATE 15 MCG/2 ML VIAL.NEB NEB SCH ×2 (07:55→20:00)
--- NOTE | 2019-08-10 08:26 | P.PN ---
Subjective Date of Service: 08/10/19 Primary Care Provider: [facility] Chief Complaint: fall Subjective: Improving, Other (pain is better controlled. Working with PT) Physical Examination - Vital Signs Temperature: 97.8 F Blood Pressure: 108/63 Pulse: 69 Respirations: 18 Pulse Ox (%): 100 - Physical Exam General: Alert, Cooperative HEENT: Atraumatic Neck: Supple Respiratory: Clear to auscultation bilaterally, Normal air movement Cardiovascular: Normal pulses, Regular rate/rhythm Gastrointestinal: Normal bowel sounds, Soft and benign, Non-distended, No masses , No rebound, No guarding Musculoskeletal: Other (Left arm in sling) Neurological: Normal speech, Normal strength at 5/5 x4 extr, Normal tone, Normal affect - Studies Medications List Reviewed: Yes Assessment & Plan Discharge Plan: Other (Inpatient rehab versus skilled placement versus home with outpatient physical therapy) Physician Review Additional Text: Impression: Recurrent falls with multiple left rib fractures to the lateral 6th, 7th, 8th and 9th rib and left ulnar/radial fracture Acute renal injury likely dehydration likely with underlying chronic renal disease stage III Hypertension Atrial fibrillation on chronic anti coagulation therapy with Eliquis Diabetes mellitus type 2 insulin-dependent UTI, urine culture positive for E coli Acute respiratory failure secondary to COPD exacerbation with sputum culture positive for Pseudomonas, Proteus and Staph aureus Patient with pacemaker defibrillator Anemia likely of chronic disease Plan: Recurrent falls with multiple left rib fractures to the lateral 6th, 7th, 8th and 9th rib and left ulnar/radial fracture: Patient has done well. Continue with physical therapy and occupational therapy. Patient has decided to consider inpatient rehab. If not approved for inpatient rehab then other considerations will be skilled placement versus home with outpatient physical therapy. Patient would benefit with inpatient rehab versus skilled due to his home situation. Will discuss further with social worker school. Hopefully patient be approved for inpatient rehab. Acute renal injury likely dehydration likely with underlying chronic renal disease stage III: This has improved. Encourage oral intake. Patient likely with underlying chronic renal disease stage III. Nephrology consulted. Continue with recommendation. Hypertension: Continue with medication. Will monitor and adjust appropriately. Atrial fibrillation on chronic anti coagulation therapy with Eliquis: Rate controlled. Continue with medication. Diabetes mellitus type 2 insulin-dependent: Continue with Accu-Cheks. Patient on sliding scale. Will continue to adjust appropriately. UTI, urine culture positive for E coli: Cultures reviewed. Patient will continue with Levaquin for total 7 days. Acute respiratory failure secondary to COPD exacerbation with sputum culture positive for Pseudomonas, Proteus and Staph aureus: Patient seen and evaluated by pulmonology. Will continue with steroid orally. Continue with COPD medication. X-ray shows improvement. Continue with Levaquin for total of 7 days. Patient has home oxygen. Patient with pacemaker defibrillator: Continue with medications. Anemia likely of chronic disease: H&H stable. Time Spent Managing Pts Care (In Minutes): 55
[2019-08-10] MEDS: LIDOCAINE 4% PATCH TOP SCH (08:52)
[2019-08-10] MEDS: RANITIDINE 150 MG TABLET PO SCH (08:53)
[2019-08-10] MEDS: METOPROLOL XL 25 MG TAB PO SCH (08:53)
[2019-08-10] MEDS: CALCIUM 250 MG/VITAMIN D 125 IU TAB PO SCH (08:53)
[2019-08-10] MEDS: DOCUSATE NA 100 MG CAP PO SCH ×2 (08:53→20:49)
[2019-08-10] MEDS: FINASTERIDE 5 MG TAB PO SCH (08:54)
[2019-08-10] MEDS: predniSONE 10 MG TAB PO SCH (08:54)
[2019-08-10] MEDS: PREGABALIN 150 MG CAP PO SCH ×3 (08:54→20:49)
[2019-08-10] MEDS: TAMSULOSIN 0.4 MG SR CAP PO SCH (08:54)
[2019-08-10] MEDS: DOCUSATE CALCIUM 240 MG CAP PO SCH (08:54)
[2019-08-10] MEDS: APIXABAN 5 MG TABLET PO SCH ×2 (08:54→20:49)
[2019-08-10] MEDS: levoFLOXacin 500 MG TAB PO SCH (08:54)
[2019-08-10] MEDS: OXYBUTYNIN ER 5 MG TAB PO SCH ×3 (08:54→20:49)
[2019-08-10] MEDS: INSULIN GLARGINE 100 UNITS/ML SQ SCH (08:55)
--- NOTE | 2019-08-10 13:17 | P.PN ---
Subjective Date of Service: 08/10/19 Primary Care Provider: [facility] Chief Complaint: fall Subjective pt admitted with Hx of HTN , DM , CHF, admitted S/P fall developed JEB peak Cr 1.6 , improved on IVF today no overnight events Ct stable rales on exam , will order CXr tomorrow will reduce lyrica to 100mg tid Physical Examination - Vital Signs Temperature: 97.8 F Blood Pressure: 108/63 Pulse: 69 Respirations: 18 Pulse Ox (%): 100 - Physical Exam General: Alert, In no apparent distress HEENT: Atraumatic, Normocephalic Neck: Supple, JVD not distended, Without JVD or thyroid abnormality Respiratory: Clear to auscultation bilaterally, Crackles/rales Cardiovascular: No edema, Normal pulses, Normal S1 S2, No gallops, No rubs, No murmurs Gastrointestinal: Normal bowel sounds, Soft and benign, Non-distended Musculoskeletal: No swelling Integumentary: No rashes - Studies Medications List Reviewed: Yes Assessment And Plan - Plan JEB on CKD III Cr down to baseline will keep holding lasix for now dylan reduce lyrica will order CXR tomorrow to better evaluate volume ststus S/P fall with chronic rib fractures pain control DM as per primary team CHF cont to hold diuretics CXR tomorrow AFIB on Eliquis UTI cont ABx
[2019-08-10] MEDS: LATANOPROST 0.005% 2.5ML OPTH OPTH SCH (20:46)
[2019-08-10] MEDS: ATORVASTATIN 10 MG TAB PO SCH (20:49)
[2019-08-11] MEDS: HYDROCODONE/APAP 5/325 MG TAB PO PRN ×2 (02:55→09:52)
[2019-08-11] MEDS: TRAMADOL HCL 50 MG TAB PO PRN (05:21)
[2019-08-11 07:30] LABS: Absolute Lymphocytes (CBC) 0.9 K/uL (0.7-4.9); Basophils % 0.2 % (0-1.3); Lymphocytes % 12.9 % (15.3-44.8); MPV 8.9 fL (7.6-11.3); RBC Red Blood Cell Count 3.33 M/uL (4.33-5.43)
[2019-08-11 07:45] LABS: Albumin 2.2 g/dL (3.4-5.0); Magnesium 2.2 mg/dL (1.8-2.4); Phosphorus 2.4 mg/dL (2.5-4.9); Potassium 4.4 mmol/L (3.5-5.1)
[2019-08-11] MEDS: INSULIN -REGULAR HUMAN 50 UNIT/0.5 ML ML SQ SCH ×4 (09:34→21:00)
[2019-08-11] MEDS: INSULIN GLARGINE 100 UNITS/ML SQ SCH (09:34)
[2019-08-11] MEDS: DOCUSATE NA 100 MG CAP PO SCH ×2 (09:35→22:04)
[2019-08-11] MEDS: APIXABAN 5 MG TABLET PO SCH ×2 (09:35→22:04)
[2019-08-11] MEDS: OXYBUTYNIN ER 5 MG TAB PO SCH ×3 (09:36→22:05)
[2019-08-11] MEDS: FINASTERIDE 5 MG TAB PO SCH (09:36)
[2019-08-11] MEDS: DOCUSATE CALCIUM 240 MG CAP PO SCH (09:36)
[2019-08-11] MEDS: levoFLOXacin 500 MG TAB PO SCH (09:36)
[2019-08-11] MEDS: TAMSULOSIN 0.4 MG SR CAP PO SCH (09:36)
[2019-08-11] MEDS: METOPROLOL XL 25 MG TAB PO SCH (09:37)
[2019-08-11] MEDS: predniSONE 10 MG TAB PO SCH (09:37)
[2019-08-11] MEDS: RANITIDINE 150 MG TABLET PO SCH (09:42)
[2019-08-11] MEDS: LIDOCAINE 4% PATCH TOP SCH (09:42)
[2019-08-11] MEDS: CALCIUM 250 MG/VITAMIN D 125 IU TAB PO SCH (09:42)
[2019-08-11] MEDS: PREGABALIN 150 MG CAP PO SCH ×3 (09:42→22:04)
[2019-08-11] MEDS: IPRATROPIUM BROM 0.5MG/2.5ML NEB SCH ×3 (10:25→20:35)
[2019-08-11] MEDS: ARFORMOTEROL TARTRATE 15 MCG/2 ML VIAL.NEB NEB SCH ×2 (10:25→20:35)
--- NOTE | 2019-08-11 14:45 | RAD REPORT ---
EXAM DESCRIPTION: [facility] Single View08/11/2019 2:29 pm CLINICAL HISTORY: Shortness of breath COMPARISON: August 07, 2020 FINDINGS: Small left pleural effusion The lungs appear clear of acute infiltrate. The heart is mildly enlarged IMPRESSION: Small left pleural effusion
--- NOTE | 2019-08-11 18:38 | PN ---
Subjective: Patient is currently lying in bed. He looks comfortable. He has no chest pain, no abdo rebekah pain, no fever, no chills. His left arm in the sling. Review of Systems: Otherwise negative. Physical Examination: Current Vital Signs: Blood pressure 136/68, respiratory rate 18, pulse 71, temperature 97.4, saturat ing 95% on room air. General: He is alert and oriented x3. Does not look in any distress. HEENT: Atraumatic, normocephalic. PERRLA. Oral mucosa is moist. Neck: Supple. No JVD. No bruits. Chest: Clear to auscultation. Good air entry. Heart: Regular rate and rhythm. S1, S2 normal. No gallop or murmur. Abdomen: Soft, nontender. No hepatosplenomegaly. Positive bowel sounds. Extremities: No clubbing, cyanosis, or edema. Left arm in sling. Neurologic: Grossly intact. Cranial nerve exam 2 through 12 intact. Normal sensation. Normal refl exes. Normal muscle strength. Laboratory Data: Today, CBC normal except for hemoglobin 10.3. Chemistry was normal except for crea tinine 1.23, BUN 27, glucose in the range of 185 to 230. Assessment And Plan: 1.Recurrent falls with multiple left rib fractures to the left 6, 7, 8, 9 ribs and left ulna and rad ial fracture. Patient continued to do well. He is currently receiving physical therapy, also we are following him. He is going to be discharged to rehab unless he does not get approved then we will h ave to send him home with home health. So far, insurance pending and probably will not be back until Tuesday. 2.Acute renal injury, likely dehydration with history of chronic renal insufficiency stage III, impr coleman. Creatinine back to normal. Nephrology following. Appreciate recommendation. 3.Hypertension, well controlled. Continue patient on Flomax, metoprolol, finasteride. 4.Hyperlipidemia. Continue patient on atorvastatin. 5.Diabetes, not well controlled. Patient on Lantus 30 daily and 12 before meals. Increase his base line Lantus to 35. 6.Urinary tract infection, positive for Escherichia coli. Patient on Levaquin. Continue total of 7 days. 7.Atrial fibrillation, on chronic anticoagulation with Eliquis, rate controlled. 8.History of pseudomonas, proteus, and Staphylococcus aureus in the sputum. Dr. Hunter evaluated the patient. The patient was placed on steroid. Chest x-ray showed improvement. Continue inhaler a s well as steroid as before. 9.BPH, on Proscar and Flomax. 10.History of neuropathy. He is on Lyrica 150 t.i.d. 11.History of pacemaker defibrillator. Continue his cardiac home medication. 12.No need for deep venous thrombosis prophylaxis as patient on Eliquis. MARIEL/DARIEN Voice ID: [id number] Report ID: [id number]
[2019-08-11] MEDS: LATANOPROST 0.005% 2.5ML OPTH OPTH SCH (21:00)
[2019-08-11] MEDS: ATORVASTATIN 10 MG TAB PO SCH (22:04)
[2019-08-12] MEDS: TRAMADOL HCL 50 MG TAB PO PRN ×5 (00:14→23:58)
--- NOTE | 2019-08-12 00:57 | PN ---
Date of Progress Note: 08/11/2019 History: Patient was admitted with atrial fibrillation and UTI, developed acute kidney injury second nic to prerenal, secondary to gastrointestinal loss. Patient is currently feeling better. Physical Examination: Vital Signs: Blood pressure 106/58, pulse of 74, afebrile. Chest: Clear to auscultation. Heart: S1, S2, regular. Abdomen: Soft, nontender. Extremities: No edema. Neurologic: Alert, nonfocal. Assessment And Plan: 1.Acute kidney injury secondary to prerenal, recovered, resolved. 2.Urinary tract infection/pneumonia. Continue current antibiotic. We will follow up. 3.Anemia of chronic kidney disease. We will consider VIKTORIYA later. YOU/DARIEN Voice ID: [id number] Report ID: [id number]
[2019-08-12] MEDS: IPRATROPIUM BROM 0.5MG/2.5ML NEB SCH ×4 (01:37→19:45)
[2019-08-12 06:24] LABS: Albumin 2.2 g/dL (3.4-5.0); Phosphorus 2.5 mg/dL (2.5-4.9); Potassium 4.2 mmol/L (3.5-5.1)
[2019-08-12] MEDS: INSULIN GLARGINE 100 UNITS/ML SQ SCH ×3 (07:30→11:30)
[2019-08-12] MEDS: INSULIN -REGULAR HUMAN 50 UNIT/0.5 ML ML SQ SCH ×4 (07:30→21:16)
[2019-08-12] MEDS: ARFORMOTEROL TARTRATE 15 MCG/2 ML VIAL.NEB NEB SCH ×2 (07:35→19:45)
[2019-08-12] MEDS: LIDOCAINE 4% PATCH TOP SCH (08:55)
[2019-08-12] MEDS: DOCUSATE CALCIUM 240 MG CAP PO SCH (08:56)
[2019-08-12] MEDS: RANITIDINE 150 MG TABLET PO SCH (08:56)
[2019-08-12] MEDS: PREGABALIN 150 MG CAP PO SCH ×3 (08:56→21:17)
[2019-08-12] MEDS: DOCUSATE NA 100 MG CAP PO SCH ×2 (08:56→21:17)
[2019-08-12] MEDS: TAMSULOSIN 0.4 MG SR CAP PO SCH (08:56)
[2019-08-12] MEDS: levoFLOXacin 500 MG TAB PO SCH (08:56)
[2019-08-12] MEDS: predniSONE 10 MG TAB PO SCH (08:56)
[2019-08-12] MEDS: FINASTERIDE 5 MG TAB PO SCH (08:56)
[2019-08-12] MEDS: OXYBUTYNIN ER 5 MG TAB PO SCH ×3 (08:56→21:17)
[2019-08-12] MEDS: CALCIUM 250 MG/VITAMIN D 125 IU TAB PO SCH (08:57)
[2019-08-12] MEDS: METOPROLOL XL 25 MG TAB PO SCH (08:57)
[2019-08-12] MEDS: APIXABAN 5 MG TABLET PO SCH ×2 (08:57→21:18)
[2019-08-12] MEDS: MAGNES/ALUMIN/SIMET 30ML UCUP PO PRN (14:36)
--- NOTE | 2019-08-12 16:24 | PN ---
Subjective: Currently, patient is lying in bed. He looks comfortable. He has no chest pain. No ab dominal pain. No fever. No chills. Left arm is still in a sling. He is sitting, eating his lunch. Family at the bedside. Objective: Vital Signs: Currently vital signs: Blood pressure is 123/74, respiratory rate 15, puls e 73, temperature 97.9. Patient is saturating 95% on room air. General: Patient is alert and oriented x3, does not look in any distress. HEENT: Atraumatic, normocephalic. PERRLA. Oral mucosa is moist. Neck: Supple. No JVD. No bruits. Chest: Clear to auscultation. Good air entry. Heart: Regular rate and rhythm. S1, S2 normal. No gallop or murmur. Abdomen: Soft, nontender. No masses. No hepatosplenomegaly. Positive bowel sounds. Extremities: No clubbing, cyanosis, or edema. No calf tenderness. Left arm in sling. Neurologic: Cranial nerve exam 2 through 12 intact with normal neurologic exam. Laboratory Data: Today, CBC was normal except for hemoglobin 10.3. Chemistry was normal except for BUN of 20, GFR 64, glucose 202. Range of glucose is 162 to 299 yesterday. Assessment And Plan: 1.Recurrent falls with multiple rib fracture to the left 6, 7, 8, 9 ribs as well as left ulnar and r adial fracture. Patient continued to do well and left arm in sling. He is receiving physical therap y, also advised conservative management as well as rehab. If insurance does not approve rehab, the p atient may end up needing to go home with home health. 2.Acute renal injury secondary to dehydration. Labs today showed creatinine normal. Continue fluid s. Nephrology following. 3.Hypertension, well controlled. Patient is on finasteride, Flomax, and metoprolol. 4.Hyperlipidemia. Patient is on atorvastatin. 5.Urinary tract infection, positive for Escherichia coli. Patient is on Levaquin for total of 7 day s. Patient was started on 08/09, should continue through the . 6.Atrial fibrillation on chronic anticoagulation with Eliquis with rate control. 7.History of Pseudomonas, Proteus, Staphylococcus aureus in the sputum. Dr. Hunter evaluated the patient. The patient is currently on steroid. Chest x-ray continued to improve. Continue inhaler a s well as steroid. 8.Benign prostatic hyperplasia, on Proscar and Flomax. No difficulty urinating. 9.Neuropathy history on Lyrica 150 mg t.i.d. 10.History of defibrillator. Continue cardiac home medication with metoprolol. 11.No need for deep venous thrombosis prophylaxis. The patient is on Eliquis. 12.Diabetes, still not well controlled. I increased the patient's Lantus today to 35 units daily. I will increase the his before meals to 30 units instead of 12, and reassess in the morning. 13.Discharge plan tomorrow morning. Hopefully, patient active to rehab only. If not, then patient will need to go home with home health. PHUONG Voice ID: [id number] Report ID: [id number]
--- NOTE | 2019-08-12 19:00 | PN ---
Date of Progress Note: 08/12/2019 History: The patient was admitted to the hospital for UTI, AFib, developed acute kidney injury secon flori to prerenal, secondary to gastrointestinal loss secondary to gastroenteritis. After hydration, kidney function back to baseline and normalized. Physical Examination: Vital Signs: Blood pressure 116/58, pulse of 74, afebrile. Patient had good urine output. No short ness of breath. Had urine output of 1600. Chest: Clear to auscultation. Heart: S1, S2. Systolic murmur. Abdomen: Soft, nontender. Morbidly obese. Extremities: Trace edema. Laboratory Data: Sodium 139, potassium 4.2, bicarb 31, BUN 20, creatinine 1.1, GFR of 64, calcium 8. 1. Magnesium of 2.5. Albumin 2.2, corrected calcium is 9.7. Current Medications: The patient on include: 1.Levaquin. 2.Flomax. 3.Eliquis. 4.Calcium carbonate. 5.Atorvastatin. 6.Metoprolol. 7.Lyrica 150 t.i.d. 8.Breathing treatment. 9.Ranitidine. 10.Zofran. 11.Insulin. 12.Finasteride. Assessment And Plan: 1.Acute kidney injury secondary to prerenal, secondary to gastrointestinal loss, recovered, resolved . We will keep holding any IV fluid. 2.Hypertension, controlled, optimal. Keep holding blood pressure medication. 3.Urinary tract infection secondary to Escherichia coli. Continue current antibiotic. 4.Stuartii infection, multi-organism, sensitive to Levaquin. We will continue on the Levaquin. 5.Deconditioning. Continue PT, OT. YOU/MODL Voice ID: [id number] Report ID: [id number]
[2019-08-12] MEDS: LATANOPROST 0.005% 2.5ML OPTH OPTH SCH (21:00)
[2019-08-12] MEDS: ATORVASTATIN 10 MG TAB PO SCH (21:17)
[2019-08-12 22:39] LABS: Beta Globulin 24 HR Urine 0 %; Gamma Globulin, 24hr Urine 0 %; Interpretation: REPORT; Urine Alpha-2-Globulins, 24 Hr 0 %; Urine PEP Abn Protein Band1 REPORT; Urine Protein/Creat Ratio 24Hr 426 mg/g creat (<115); Urine Total Volume 24 Hours 1725 mL
[2019-08-13] MEDS: IPRATROPIUM BROM 0.5MG/2.5ML NEB SCH ×4 (01:45→19:55)
[2019-08-13] MEDS: TRAMADOL HCL 50 MG TAB PO PRN ×2 (05:34→22:15)
[2019-08-13] MEDS: INSULIN -REGULAR HUMAN 50 UNIT/0.5 ML ML SQ SCH ×4 (07:30→20:52)
[2019-08-13] MEDS: ARFORMOTEROL TARTRATE 15 MCG/2 ML VIAL.NEB NEB SCH ×2 (08:10→19:55)
[2019-08-13] MEDS: LIDOCAINE 4% PATCH TOP SCH (08:38)
[2019-08-13] MEDS: MAGNES/ALUMIN/SIMET 30ML UCUP PO PRN ×2 (08:38→19:36)
[2019-08-13] MEDS: METOPROLOL XL 25 MG TAB PO SCH (08:39)
[2019-08-13] MEDS: RANITIDINE 150 MG TABLET PO SCH (08:39)
[2019-08-13] MEDS: PREGABALIN 150 MG CAP PO SCH ×3 (08:40→20:56)
[2019-08-13] MEDS: OXYBUTYNIN ER 5 MG TAB PO SCH ×3 (08:40→20:53)
[2019-08-13] MEDS: INSULIN GLARGINE 100 UNITS/ML SQ SCH (08:42)
[2019-08-13] MEDS: [UNRECOGNIZED DRUG - OTHER] PO SCH ×2 (10:32→12:00)
[2019-08-13] MEDS: FINASTERIDE 5 MG TAB PO SCH (10:32)
[2019-08-13] MEDS: APIXABAN 5 MG TABLET PO SCH ×2 (10:32→20:53)
[2019-08-13] MEDS: CALCIUM 250 MG/VITAMIN D 125 IU TAB PO SCH (10:32)
[2019-08-13] MEDS: predniSONE 10 MG TAB PO SCH (10:33)
[2019-08-13] MEDS: levoFLOXacin 500 MG TAB PO SCH (10:33)
[2019-08-13] MEDS: DOCUSATE NA 100 MG CAP PO SCH ×2 (10:33→20:53)
[2019-08-13] MEDS: TAMSULOSIN 0.4 MG SR CAP PO SCH (10:33)
[2019-08-13] MEDS: DOCUSATE CALCIUM 240 MG CAP PO SCH (10:33)
[2019-08-13] MEDS ORDERED: [UNRECOGNIZED DRUG - OTHER] PO PRN (14:07)
--- NOTE | 2019-08-13 14:09 | P.PN ---
Subjective Date of Service: 08/13/19 Primary Care Provider: [facility] Chief Complaint: fall Subjective: No new changes, No C/O voiced (still reproted poor appetite - admit to some heartburn symptoms) Review of Systems 10-point ROS is otherwise unremarkable Physical Examination - Vital Signs Temperature: 97.4 F Blood Pressure: 109/71 Pulse: 83 Respirations: 20 Pulse Ox (%): 94 - Physical Exam General: Alert, Oriented x3 HEENT: Atraumatic, Normocephalic Neck: Supple, 2+ carotid pulse no bruit Respiratory: Clear to auscultation bilaterally, Normal air movement, Other ( tenderness right rib margin) Gastrointestinal: Normal bowel sounds, Soft and benign Musculoskeletal: Tenderness, Cast in place (over left forearm), Other Neurological: Normal speech, Normal strength at 5/5 x4 extr - Studies Laboratory Last Values WBC 7.0 K/uL (4.3-10.9) 08/11/19 06:44 RBC 3.33 M/uL (4.33-5.43) L 08/11/19 06:44 Hgb 10.3 g/dL (13.6-17.9) L 08/11/19 06:44 Hct 31.0 % (39.6-49.0) L 08/11/19 06:44 MCV 93.1 fL (80-100) 08/11/19 06:44 MCH 31.0 pg (27.0-35.0) 08/11/19 06:44 MCHC 33.4 g/dL (32.0-36.0) 08/11/19 06:44 RDW 14.5 % (12.1-15.2) 08/11/19 06:44 Plt Count 153 K/uL (152-406) 08/11/19 06:44 MPV 8.9 fL (7.6-11.3) 08/11/19 06:44 Neutrophils % 78.2 % (41.7-73.7) H 08/11/19 06:44 Lymphocytes % 12.9 % (15.3-44.8) L 08/11/19 06:44 Monocytes % 7.7 % (3.3-12.3) 08/11/19 06:44 Eosinophils % 1.0 % (0-4.4) 08/11/19 06:44 Basophils % 0.2 % (0-1.3) 08/11/19 06:44 Absolute Neutrophils 5.5 K/uL (1.8-8.0) 08/11/19 06:44 Segmented Neutrophils 92 % (40-80) H 08/05/19 07:23 Absolute Lymphocytes 0.9 K/uL (0.7-4.9) 08/11/19 06:44 Lymphocytes 4 % (15-42) L 08/05/19 07:23 Monocytes 4 % (0-10) 08/05/19 07:23 Absolute Monocytes 0.5 K/uL (0.1-1.3) 08/11/19 06:44 Absolute Eosinophils 0.1 K/uL (0-0.5) 08/11/19 06:44 Absolute Basophils 0.0 K/uL (0-0.5) 08/11/19 06:44 Morphology Comment Not seen (NOT SEEN) 08/09/19 05:20 PT 13.6 SECONDS (9.5-12.5) H 08/05/19 07:23 INR 1.16 08/05/19 07:23 Sodium 139 mmol/L (136-145) 08/12/19 05:47 Potassium 4.2 mmol/L (3.5-5.1) 08/12/19 05:47 Chloride 104 mmol/L (98-107) 08/12/19 05:47 Carbon Dioxide 31 mmol/L (21-32) 08/12/19 05:47 BUN 20 mg/dL (7-18) H 08/12/19 05:47 Creatinine 1.12 mg/dL (0.55-1.3) 08/12/19 05:47 Estimated GFR 64 mL/min (=/>90) L 08/12/19 05:47 Glucose 202 mg/dL (74-106) H 08/12/19 05:47 POC Glucose 179 mg/dl (65-120) H 08/13/19 12:11 Calcium 8.1 mg/dL (8.5-10.1) L 08/12/19 05:47 Phosphorus 2.5 mg/dL (2.5-4.9) 08/12/19 05:47 Magnesium 2.2 mg/dL (1.8-2.4) 08/11/19 06:44 Iron 59.0 ug/dL (65-175) L 08/09/19 05:20 TIBC 245 ug/dL (250-460) L 08/09/19 05:20 Transferrin 175 mg/dL (200-360) L 08/09/19 05:20 Transferrin % Sat 24.1 % (20.0-50.0) 08/09/19 05:20 Ferritin 104.5 ng/mL (26-388) 08/09/19 05:20 Total Bilirubin 0.3 mg/dL (0.2-1.0) 08/06/19 05:00 Direct Bilirubin 0.2 mg/dL (0-0.2) 08/05/19 14:01 AST 16 U/L (15-37) 08/06/19 05:00 ALT 18 U/L (12-78) 08/06/19 05:00 Alkaline Phosphatase 73 U/L (45-117) 08/06/19 05:00 Creatine Kinase 74 U/L (39-308) 08/08/19 05:13 Rapid Troponin I < 0.02 ng/mL (0.0-0.045) 08/05/19 07:23 Troponin I < 0.02 ng/mL (0.0-0.045) 08/05/19 14:01 NT-Pro-B Natriuret Pep 1039 pg/mL (<125) H 08/05/19 07:23 Serum Total Protein 5.9 g/dL (6.4-8.2) L 08/06/19 05:00 Albumin 2.2 g/dL (3.4-5.0) L 08/12/19 05:47 Globulin 3.4 g/dL (2.3-3.5) 08/06/19 05:00 Albumin/Globulin Ratio 0.7 (1.1-1.8) L 08/06/19 05:00 Lipase 18 U/L (73-393) L 08/05/19 07:23 PSA Screen 0.04 ng/mL (0-4.00) 08/07/19 11:01 Vitamin B12 1183 pg/mL (193-986) H 08/09/19 05:20 TSH 0.749 uIU/mL (0.360-3.740) 08/07/19 11:01 Urine Color Yellow 08/07/19 15: Urine Appearance Clear 08/07/19 15: Urine pH 6.0 (5.0-7.0) 08/07/19 15:33 Ur Specific Mason >=1.030 (1.005-1.030) 08/07/19 15: Urine Ketones Negative (NEG) 08/07/19 15: Urine Blood Negative (NEG) 08/07/19 15: Urine Nitrite Negative (NEG) 08/07/19 15: Urine Bilirubin Negative (NEG) 08/07/19 15: Urine Urobilinogen 0.2 mg/dL (0.2-1.0) 08/07/19 15:33 Ur Leukocyte Esterase 2+ (NEG) H 08/07/19 15: Urine RBC <5 /HPF (NONE SEEN) 08/07/19 15: Urine WBC >50 /HPF (<5) H 08/07/19 15: Ur Squamous Epith Cells <5 /HPF (NONE SEEN) 08/07/19 15: Urine Bacteria <20 /HPF (NONE SEEN) 08/07/19 15: Urine Culture Reflexed Reflexed 08/07/19 15: U Random Total Protein 19 mg/dL (<11.9) H 08/08/19 00:06 Ur Random Sodium 146 mmol/L (27-287) 08/05/19 20:30 Ur 24 Hour Volume 1725 mL 08/09/19 06:00 Urine Creatinine 55.0 mg/dL (20-370) 08/08/19 00:06 Ur Creatinine 24 Hour 0.73 g/24 h (0.50-2.15) 08/09/19 06:00 Ur Albumin 24 Hour 100 % 08/09/19 06:00 Ur Total Protein 24 Hr 311 mg/24 h (<150) H 08/09/19 06:00 Protein/Creatinin Ratio 0.35 ratio (<0.15) H 08/08/19 00:06 Protein/Creat Ratio 24h 426 mg/g creat (<115) H 08/09/19 06:00 Urine Glucose 3+ (NEG) H 08/07/19 15:33 Urine Total Protein Negative (NEG) 08/07/19 15: U [id number]-8-[id number] 0 % 08/09/19 06:00 U Ivqrl-5-[id number] 0 % 08/09/19 06:00 U Beta Globulin 0 % 08/09/19 06:00 U Gamma Globulin 0 % 08/09/19 06:00 U Abnormal Prot Band 1 Report 08/09/19 06:00 U Abnormal Prot Band 2 [employer]MENT COMM[employer]ITY [employer]GER 08/09/19 06:00 U Abnormal Prot Band 3 AP[employer]MENT COMMUNITY MANAGER 08/09/19 06:00 Urine PEP Interpret Report 08/09/19 06:00 Immunofix Electrophor Cancelled 08/09/19 Unknown ABO/Rh A NEGATIVE 08/05/19 07:23 Antibody Screen Negative 08/05/19 07:23 Medications List Reviewed: Yes Assessment & Plan - Problems (Diagnosis) (1) A-fib Current Visit: Yes Status: Acute (2) DM2 (diabetes mellitus, type 2) Current Visit: Yes Status: Acute (3) HTN (hypertension) Current Visit: Yes Status: Acute (4) Hyperkalemia Current Visit: Yes Status: Acute (5) Multiple rib fractures Current Visit: Yes Status: Acute (6) Ulna fracture Current Visit: Yes Status: Acute - Code Status/Comfort Care Code Status Assessed: Yes Physician Review: Patient Assessed, Agree with Above Assessment and Plan Physician Review Additional Text: Impression: Recurrent falls with multiple left rib fractures to the lateral 6th, 7th, 8th and 9th rib and left ulnar/radial fracture Acute renal injury likely dehydration likely with underlying chronic renal disease stage III Hypertension Atrial fibrillation on chronic anti coagulation therapy with Eliquis Diabetes mellitus type 2 insulin-dependent UTI, urine culture positive for E coli Acute respiratory failure secondary to COPD exacerbation with sputum culture positive for Pseudomonas, Proteus and Staph aureus Patient with pacemaker defibrillator Anemia likely of chronic disease Plan: Recurrent falls with multiple left rib fractures to the lateral 6th, 7th, 8th and 9th rib and left ulnar/radial fracture: -follow plan for SNF -c/w pain regime Acute renal injury likely dehydration likely with underlying chronic renal disease stage III: improving , follow renal team Hypertension: Continue with medication. Atrial fibrillation on chronic anti coagulation therapy with Eliquis: Rate controlled. Continue with medication. Diabetes mellitus type 2 insulin-dependent: Continue with Accu-Cheks. Patient on sliding scale. Will continue to adjust appropriately. UTI, urine culture positive for E coli: Cultures reviewed. Patient will continue with Levaquin for total 7 days. Acute respiratory failure secondary to COPD exacerbation with sputum culture positive for Pseudomonas, Proteus and Staph aureus: -Improved - s/p seen by pulmonology. continue with steroid and Levaquin for total of 7 days. Patient has home oxygen. Patient with pacemaker defibrillator: Continue with medications. Anemia likely of chronic disease: H&H stable. Time Spent Managing Pts Care (In Minutes): 31
[2019-08-13] MEDS: ATORVASTATIN 10 MG TAB PO SCH (20:53)
[2019-08-13] MEDS: LATANOPROST 0.005% 2.5ML OPTH OPTH SCH (20:54)
[2019-08-13] MEDS ORDERED: FAMOTIDINE 20 MG TAB PO SCH (21:00)
--- NOTE | 2019-08-14 01:09 | PN ---
Date of Progress Note: 08/13/2019 History: Patient was admitted to the hospital for urinary tract infection. He was found to have acute kidney injury secondary to prerenal azotemia due to gastrointestinal loss in setting of gastroenteritis. He has history of atrial fibrillation. After hydration, kidney function is back to baseline. Renal function is improving to baseline and normalized. Review of Systems: Denies fever, chills. Denies nausea, vomiting. Physical Examination: Vital Signs: Blood pressure 110/60, heart rate 74. Lungs: Clear to auscultation bilaterally. Heart: S1, S2. Abdomen: Soft, benign. Extremities: Trace edema. Laboratory Data: BUN is 20, creatinine 1.1, potassium 4.2, bicarbonate 31, sodium 139, calcium 8.1, magnesium 2.3, albumin 2.2, calcium 8.1. Impression And Plan: 1. Acute kidney injury secondary to prerenal azotemia, renal hypoperfusion triggered by gastrointestinal loss. Renal function is recovered. Patient completed IV fluids and is advancing p.o. intake. Continue to monitor fluid balance and urine output. 2. Hypertension. Blood pressure control is optimal. Continue current treatment medication and hold if systolic blood pressure is below 110. 3. Urinary tract infection with E coli. Continue current antibiotics. 4. Continue Levaquin according to sensitivity. I spent total 35 min including 25 min to coordinate care plan. AJIT/DARIEN Voice ID: [id number] Report ID: [id number] MTDErasto
[2019-08-14] MEDS: IPRATROPIUM BROM 0.5MG/2.5ML NEB SCH ×4 (02:00→19:40)
[2019-08-14 05:42] LABS: Basophils % 0.3 % (0-1.3); Hematocrit 31.8 % (39.6-49.0); Lymphocytes % 12.5 % (15.3-44.8); MPV 9.2 fL (7.6-11.3); RBC Red Blood Cell Count 3.42 M/uL (4.33-5.43)
[2019-08-14 05:45] LABS: Albumin 2.3 g/dL (3.4-5.0); Bilirubin Total 0.5 mg/dL (0.2-1.0); Potassium 4.3 mmol/L (3.5-5.1); Protein, Total 5.8 g/dL (6.4-8.2)
[2019-08-14] MEDS: TRAMADOL HCL 50 MG TAB PO PRN ×3 (06:18→21:11)
[2019-08-14] MEDS: ARFORMOTEROL TARTRATE 15 MCG/2 ML VIAL.NEB NEB SCH ×2 (06:30→19:40)
[2019-08-14] MEDS: ALBUTEROL 2.5 MG/3 ML NEB SOL NEB PRN (06:30)
[2019-08-14] MEDS: INSULIN -REGULAR HUMAN 50 UNIT/0.5 ML ML SQ SCH ×4 (07:30→20:59)
[2019-08-14] MEDS: APIXABAN 5 MG TABLET PO SCH ×2 (08:15→20:57)
[2019-08-14] MEDS: METOPROLOL XL 25 MG TAB PO SCH (08:15)
[2019-08-14] MEDS: FINASTERIDE 5 MG TAB PO SCH (08:15)
[2019-08-14] MEDS: PREGABALIN 150 MG CAP PO SCH ×3 (08:15→20:57)
[2019-08-14] MEDS: levoFLOXacin 500 MG TAB PO SCH (08:16)
[2019-08-14] MEDS: LIDOCAINE 4% PATCH TOP SCH (08:16)
[2019-08-14] MEDS: RANITIDINE 150 MG TABLET PO SCH (08:16)
[2019-08-14] MEDS: predniSONE 10 MG TAB PO SCH (08:16)
[2019-08-14] MEDS: DOCUSATE NA 100 MG CAP PO SCH ×2 (08:16→20:57)
[2019-08-14] MEDS: OXYBUTYNIN ER 5 MG TAB PO SCH ×3 (08:16→20:57)
[2019-08-14] MEDS: TAMSULOSIN 0.4 MG SR CAP PO SCH (08:16)
[2019-08-14] MEDS: DOCUSATE CALCIUM 240 MG CAP PO SCH (08:17)
[2019-08-14] MEDS: INSULIN GLARGINE 100 UNITS/ML SQ SCH (08:17)
[2019-08-14] MEDS: CALCIUM 250 MG/VITAMIN D 125 IU TAB PO SCH (08:17)
[2019-08-14] MEDS: MAGNES/ALUMIN/SIMET 30ML UCUP PO PRN (13:26)
--- NOTE | 2019-08-14 13:38 | P.PN ---
Subjective Date of Service: 08/14/19 Primary Care Provider: [facility] Chief Complaint: fall Subjective: No new changes Subjective pt admitted with Hx of HTN , DM , CHF, admitted S/P fall developed JEB peak Cr 1.6 , improved on IVF today no overnight events Ct stable pending placement Physical exam general: AAOX3, NAD Neck; Supple, No elevated JVD hear: RRR, normal S1,2 no murmur or rub Chest: CTAB, no rales or wheezes Abdomen: Soft , Nt Extremities no edema Physical Examination - Vital Signs Temperature: 97.8 F Blood Pressure: 113/72 Pulse: 74 Respirations: 18 Pulse Ox (%): 98 - Studies Medications List Reviewed: Yes Assessment And Plan - Plan JEB on CKD III resolved Cr down to baseline will keep holding lasix for now S/P fall with chronic rib fractures pain control DM as per primary team CHF euvolemic cont to hold diuretics AFIB on Eliquis UTI cont ABx Physician Review: Patient Assessed, Agree with Above Assessment and Plan
--- NOTE | 2019-08-14 17:59 | PN ---
Date of Progress Note: 08/14/2019 Subjective: Patient is seen and examined. Chart reviewed and case discussed with RN. No acute even ts. Patient states the pain is controlled with medications. Code Status: Full. Physical Examination: Vital Signs: Temperature 97.2, heart rate 72, blood pressure 129/57, respirations 18, O2 92% on 2 L via nasal cannula. General: Awake, alert, oriented x3. Elderly male, not in any acute distress. CV: S1, S2. Regular rate and rhythm. Peripheral pulses present. Respiratory: Moving air well bilaterally. No wheezing or stridor. Gastrointestinal: Abdomen is soft, nontender, nondistended. Positive bowel sounds. Extremities: No clubbing, cyanosis, edema. Neurologic: Nonfocal. Patient does have some facial asymmetry. Speech is altered, but comprehensib le, chronic. Laboratory Data: Sodium 140, potassium 4.3, chloride 104, CO2 of 33, BUN 24, creatinine 1.22, glucos e 192, calcium 8, albumin 2.3. WBC 8, H and H 10.6 and 31.8, platelets 176. Sputum culture growing out proteus, pseudomonas, and staph. Urine culture growing out E coli. Assessment: A 74-year-old male with. 1.Recurrent falls. 2.Left rib fracture on the 6, 7, 8, and 9th ribs. Continue with pain medications. 3.Left ulnar and radial fracture. Patient is in sling. Orthopedics is on board. 4.Acute kidney injury secondary to dehydration and prerenal azotemia. Does have history of chronic kidney disease stage 3. Appreciate Nephrology input. Creatinine is improved. We will continue with monitoring creatinine. Avoid NSAIDs. 5.Essential hypertension, stable. 6.Atrial fibrillation, on anticoagulation with Eliquis. We will continue with rate control. 7.Diabetes mellitus type 2, insulin requiring with hyperglycemia, not well controlled. 8.Acute cystitis secondary to Escherichia coli. We will continue with antibiotics. 9.Acute respiratory failure secondary to chronic obstructive pulmonary disease exacerbation with spu vanessa culture positive for pseudomonas, proteus and staph. 10.Status post pacemaker defibrillator. 11.Anemia of chronic disease. Patient has completed treatment with Levaquin for a total of 7 days. Pulmonology on board. Improving overall. Awaiting SNF placement. Continue pain medications. SA/MODL Voice ID: [id number] Report ID: [id number]
[2019-08-14] MEDS: ATORVASTATIN 10 MG TAB PO SCH (20:57)
[2019-08-14] MEDS: LATANOPROST 0.005% 2.5ML OPTH OPTH SCH (21:00)
[2019-08-15] MEDS: IPRATROPIUM BROM 0.5MG/2.5ML NEB SCH ×4 (01:50→20:35)
[2019-08-15 06:03] LABS: Absolute Lymphocytes (CBC) 0.8 K/uL (0.7-4.9); Basophils % 0.6 % (0-1.3); Hematocrit 32.3 % (39.6-49.0); Lymphocytes % 12.1 % (15.3-44.8); RBC Red Blood Cell Count 3.45 M/uL (4.33-5.43)
[2019-08-15] MEDS: INSULIN GLARGINE 100 UNITS/ML SQ SCH ×5 (07:30→21:00)
[2019-08-15] MEDS: ARFORMOTEROL TARTRATE 15 MCG/2 ML VIAL.NEB NEB SCH ×2 (07:45→20:35)
[2019-08-15] MEDS: MAGNES/ALUMIN/SIMET 30ML UCUP PO PRN (08:18)
[2019-08-15] MEDS: CALCIUM 250 MG/VITAMIN D 125 IU TAB PO SCH (08:18)
[2019-08-15] MEDS: INSULIN -REGULAR HUMAN 50 UNIT/0.5 ML ML SQ SCH ×4 (08:19→21:31)
[2019-08-15] MEDS: APIXABAN 5 MG TABLET PO SCH ×2 (08:20→21:30)
[2019-08-15] MEDS: RANITIDINE 150 MG TABLET PO SCH (08:20)
[2019-08-15] MEDS: LIDOCAINE 4% PATCH TOP SCH (08:20)
[2019-08-15] MEDS: PREGABALIN 150 MG CAP PO SCH ×3 (08:20→21:30)
[2019-08-15] MEDS: DOCUSATE CALCIUM 240 MG CAP PO SCH (08:20)
[2019-08-15] MEDS: FINASTERIDE 5 MG TAB PO SCH (08:21)
[2019-08-15] MEDS: TRAMADOL HCL 50 MG TAB PO PRN ×3 (08:21→21:30)
[2019-08-15] MEDS: METOPROLOL XL 25 MG TAB PO SCH (08:22)
[2019-08-15] MEDS: DOCUSATE NA 100 MG CAP PO SCH ×2 (08:22→21:30)
[2019-08-15] MEDS: OXYBUTYNIN ER 5 MG TAB PO SCH ×3 (08:22→21:30)
[2019-08-15] MEDS: levoFLOXacin 500 MG TAB PO SCH (08:22)
[2019-08-15] MEDS: predniSONE 10 MG TAB PO SCH (08:22)
[2019-08-15] MEDS: TAMSULOSIN 0.4 MG SR CAP PO SCH (08:22)
[2019-08-15] MEDS: GUAIFENESIN 600 MG SA TAB PO SCH ×2 (12:04→21:30)
--- NOTE | 2019-08-15 17:31 | PN ---
Date of Progress Note: 08/15/2019 Subjective: Patient seen and examined. Chart reviewed and case discussed with RN. The patient comp laining of some cough and unable to bring up sputum and clear his throat, asking for some mucolytic. Medication List: Reviewed. Physical Examination: Vital Signs: Temperature 97.1, heart rate 85, blood pressure 100/66, respirations 19, O2 92% on 2 L via nasal cannula. General: Awake, alert, oriented x3. Elderly male, in some mild distress. CV: S1, S2. Regular rate and rhythm. Peripheral pulses present. Respiratory: Diminished breath sounds. No wheezing or stridor. Gastrointestinal: Abdomen is soft, nontender, nondistended. Positive bowel sounds. Extremities: No clubbing, cyanosis, or edema. Neuro: Weakness on the left side. Laboratory Data: WBC 7, H and H 10.7 and 32.3, platelets 157, neutrophils 78%. Assessment And Plan: A 74-year-old male with. 1.Recurrent falls. 2.Left rib fracture, 6th, 7th, 8th, and 9th ribs. Continue with pain medications. Continue with in centive spirometry. 3.Left ulnar and radial fracture. Continue sling. The patient developed a fracture blister. Dr. Kulwinder rodriguez is aware. Continue with sling. 4.Acute kidney injury secondary to dehydration and prerenal azotemia. Has a history of chronic kidn ey disease, stage 3. We will continue to monitor creatinine level. Avoid nonsteroidal anti-inflamma tory drugs. 5.Atrial fibrillation. On anticoagulation with Eliquis. Continue rate control. 6.Diabetes mellitus type 2, insulin requiring, with hyperglycemia. Blood glucose levels ranging fro m the 330s to 180s. We will adjust insulin sliding scale. The patient is on long-acting insulin, ma y need to adjust dose. 7.Acute cystitis secondary to Escherichia coli. Continue antibiotics. 8.Acute respiratory failure secondary to chronic obstructive pulmonary disease exacerbation. Sputum culture positive for pseudomonas, proteus and staph. Currently, on Levaquin. 9.Status post pacemaker defibrillator. 10.Anemia of chronic disease. We will continue to monitor H and H. Plan: Awaiting placement for rehab and to a correction facility. Continue to manage pain. Timothy thompson PT., SA/DARIEN Voice ID: [id number] Report ID: [id number]
[2019-08-15] MEDS: LATANOPROST 0.005% 2.5ML OPTH OPTH SCH (21:00)
[2019-08-15] MEDS: ATORVASTATIN 10 MG TAB PO SCH (21:30)
--- NOTE | 2019-08-15 23:58 | PN ---
Date of Progress Note: 08/15/2019 Subjective: Patient was admitted with acute kidney injury. Patient recovered very well. Patient wa iting for placement in rehab. Physical Examination: Vital Signs: Blood pressure 102/55, pulse of 74. Chest: Clear to auscultation. Heart: S1, S2. Regular. Abdomen: Soft, nontender. Extremities: Trace edema. Laboratory Data: H and H 10.7/32.3. Sodium 140, potassium 4.3, bicarb 33, BUN 24, creatinine 1.2, G FR of 58, calcium of 8. Current Medications: 1.Levaquin. 2.Flomax. 3.Eliquis. 4.Calcium carbonate. 5.Lyrica. 6.Breathing treatment. 7.Ranitidine. 8.Insulin. 9.Tramadol. 10.Proscar. Assessment And Plan: 1.Acute kidney injury secondary to prerenal, secondary to gastrointestinal loss, recover back to [facility]. 2.Urinary tract infection secondary to Escherichia coli. Continue current medication. 3.Hypertension, controlled, optimal. Continue current treatment. 4.Deconditioning. Continue PT, OT. YOU/MODL Voice ID: [id number] Report ID: [id number]
[2019-08-16] MEDS: IPRATROPIUM BROM 0.5MG/2.5ML NEB SCH ×4 (01:45→20:05)
[2019-08-16 04:59] VITALS: BMI 25.2
[2019-08-16 06:27] LABS: Absolute Lymphocytes (CBC) 0.7 K/uL (0.7-4.9); Basophils % 0.9 % (0-1.3); Hematocrit 33.6 % (39.6-49.0); Lymphocytes % 6.5 % (15.3-44.8); MPV 10.3 fL (7.6-11.3); RBC Red Blood Cell Count 3.62 M/uL (4.33-5.43)
[2019-08-16 06:48] LABS: Potassium 4.5 mmol/L (3.5-5.1)
[2019-08-16] MEDS: INSULIN GLARGINE 100 UNITS/ML SQ SCH ×3 (07:30→11:30)
[2019-08-16] MEDS: INSULIN -REGULAR HUMAN 50 UNIT/0.5 ML ML SQ SCH ×4 (07:30→21:00)
[2019-08-16] MEDS: ARFORMOTEROL TARTRATE 15 MCG/2 ML VIAL.NEB NEB SCH ×2 (08:30→20:05)
[2019-08-16] MEDS: LIDOCAINE 4% PATCH TOP SCH (08:52)
[2019-08-16] MEDS: APIXABAN 5 MG TABLET PO SCH ×2 (08:53→21:38)
[2019-08-16] MEDS: RANITIDINE 150 MG TABLET PO SCH (08:53)
[2019-08-16] MEDS: CALCIUM 250 MG/VITAMIN D 125 IU TAB PO SCH (08:53)
[2019-08-16] MEDS: PREGABALIN 150 MG CAP PO SCH ×3 (08:53→21:38)
[2019-08-16] MEDS: FINASTERIDE 5 MG TAB PO SCH (08:54)
[2019-08-16] MEDS: GUAIFENESIN 600 MG SA TAB PO SCH ×2 (08:54→21:39)
[2019-08-16] MEDS: DOCUSATE CALCIUM 240 MG CAP PO SCH (08:54)
[2019-08-16] MEDS: levoFLOXacin 500 MG TAB PO SCH (08:54)
[2019-08-16] MEDS: DOCUSATE NA 100 MG CAP PO SCH ×2 (08:54→21:38)
[2019-08-16] MEDS: OXYBUTYNIN ER 5 MG TAB PO SCH ×3 (08:54→21:39)
[2019-08-16] MEDS: TAMSULOSIN 0.4 MG SR CAP PO SCH (08:55)
[2019-08-16] MEDS: METOPROLOL XL 25 MG TAB PO SCH (08:55)
[2019-08-16] MEDS ORDERED: FUROSEMIDE 40 MG/4 ML VIAL IV ONE (11:23)
[2019-08-16] MEDS: MAGNES/ALUMIN/SIMET 30ML UCUP PO PRN ×2 (12:23→17:58)
--- NOTE | 2019-08-16 13:19 | RAD REPORT ---
EXAM DESCRIPTION: RAD - Chest Single View - 08/16/2019 1:05 pm CLINICAL HISTORY: PNA, effusion, rib fractures COMPARISON: Chest Single View dated 08/11/2019; Chest Single View dated 08/07/2019 TECHNIQUE: AP portable chest image was obtained 08/16/2019 1:05 pm . FINDINGS: Lung volumes are low. No peripheral mass or consolidation. No failure or volume overload. Chronic interstitial pattern matches comparison. There is some improved aeration at the left base. Sm all left pleural effusion is still suspected. Heart size and pulmonary vasculature within normal limi ts. Left subclavian pacemaker in place. No pneumothorax. No acute bony abnormality seen. No acute aor tic findings suspected. IMPRESSION: Slightly improved aeration of the left lung base. Overall no substantial change from prior imaging August 11.
--- NOTE | 2019-08-16 15:35 | PN ---
Date of Progress Note: 08/16/2019 Subjective: The patient was admitted with acute kidney injury, deconditioning. Patient doing well. Physical Examination: Vital Signs: Blood pressure 106/70, pulse of 67. Afebrile. The patient had good urine output of 19 00. Chest: Crackles at bilateral base. Heart: S1, S2. Regular. Abdomen: Soft, nontender. Extremities: Trace edema. Laboratory Data: H and H 11.2/33.6. Sodium 139, potassium 4.5, bicarb 26, BUN 25, creatinine down t o 1.1. Chest x-ray: Congestion bilateral. Medications: Current medications the patient is on include: 1.Breathing treatment. 2.Flomax. 3.Eliquis. 4.Calcium carbonate. 5.Metoprolol. 6.Atorvastatin. 7.Lyrica. 8.Zofran. 9.Pepcid. 10.Finasteride. Assessment And Plan: 1.Acute kidney injury secondary to prerenal, recovered, resolved. Looked to me slightly on the wet side. I am going to give a single dose of Lasix today. We will follow up the patient. Patient nathaniel rocha from the renal standpoint for discharge planning. 2.Hypertension, controlled optimal. Continue current treatment. 3.Deconditioning. Continue PT/OT. YOU/DARIEN Voice ID: [id number] Report ID: [id number]
[2019-08-16] MEDS ORDERED: INSULIN GLARGINE 100 UNITS/ML SQ SCH (16:30)
--- NOTE | 2019-08-16 20:32 | PN ---
Date of Progress Note: 08/16/2019 Subjective: Patient seen and examined. Chart reviewed and case discussed with RN and Dr. Kay. Patient still complaining of some pain. States Mucinex is helping him bring up some sputum. Medications: List reviewed. Physical Examination: Vital Signs: Temperature 97, heart rate 65, blood pressure 106/70, respirations 16, O2 95% on 2 L via nasal cannula. General: Awake, alert, oriented x3. Elderly male, in some mild distress. CV: S1, S2. Regular rate and rhythm. Respiratory: Diminished breath sounds, worse on the left base. Some crackles heard. No wheezing or stridor. Gastrointestinal: Abdomen is soft, nontender, nondistended. Positive bowel sounds. Extremities: No clubbing, cyanosis. Patient has some peripheral edema. Neuro: Patient has left-sided weakness. Musculoskeletal: Left upper extremity in sling. Laboratory Data: Sodium 139, potassium 4.5, chloride 105, CO2 of 26, BUN 25, creatinine 1.14, calcium 8.6. WBC 10.5, H and H 11.2 and 33.6, platelets 174, neutrophils 84%. Chest x-ray personally reviewed shows slightly improved aeration of the left lung base. Overall, no substantial change. Patient has left pleural effusion, chronic interstitial pattern matches comparison. Assessment: A 74-year-old male with: 1. Recurrent falls. 2. Left rib fractures sixth, seventh, eight, and ninth ribs. Continue with pain medications. Continue incentive spirometry. Patient may need suctioning. 3. Left ulnar and radial fracture. Patient is in a sling. Appreciate Dr. Tong's input. Continue to monitor. 4. Acute kidney injury secondary to dehydration and prerenal azotemia. Kidney function is back down to normal. 5. Atrial fibrillation. Continue anticoagulation with Eliquis. 6. Acute respiratory failure secondary to chronic obstructive pulmonary disease exacerbation. Sputum cultures positive for pseudomonas, proteus, and staphylococcus. Continue Levaquin. 7. Acute cystitis secondary to Escherichia coli on Levaquin. 8. Diabetes mellitus type 2, insulin requiring with hyperglycemia. Blood sugar still not well controlled. We will increase Levemir to 40 units and 15 units before meals and at bedtime. Sliding scale has been increased to aggressive. 9. Status post defibrillator pacemaker. 10. Anemia of chronic disease. H and H are stable. Plan: We will continue physical therapy. Patient encouraged to use incentive spirometry. Chest x-ray not substantially different. Patient is not taking deep breaths on the left side due to these fractures. Continue antibiotics for now. /DARIEN Voice ID: [id number] Report ID: [id number] MTDD
[2019-08-16] MEDS: LATANOPROST 0.005% 2.5ML OPTH OPTH SCH (21:00)
[2019-08-16] MEDS: ATORVASTATIN 10 MG TAB PO SCH (21:38)
[2019-08-16] MEDS: TRAMADOL HCL 50 MG TAB PO PRN (21:39)
[2019-08-17] MEDS: IPRATROPIUM BROM 0.5MG/2.5ML NEB SCH ×4 (02:10→20:00)
[2019-08-17] MEDS: INSULIN -REGULAR HUMAN 50 UNIT/0.5 ML ML SQ SCH ×4 (07:30→20:51)
[2019-08-17] MEDS: levoFLOXacin 500 MG TAB PO SCH (08:10)
[2019-08-17] MEDS: DOCUSATE CALCIUM 240 MG CAP PO SCH (08:10)
[2019-08-17] MEDS: APIXABAN 5 MG TABLET PO SCH ×2 (08:10→20:49)
[2019-08-17] MEDS: LIDOCAINE 4% PATCH TOP SCH (08:10)
[2019-08-17] MEDS: DOCUSATE NA 100 MG CAP PO SCH ×2 (08:10→20:49)
[2019-08-17] MEDS: MAGNES/ALUMIN/SIMET 30ML UCUP PO PRN ×2 (08:10→17:28)
[2019-08-17] MEDS: PREGABALIN 150 MG CAP PO SCH ×3 (08:11→20:50)
[2019-08-17] MEDS: OXYBUTYNIN ER 5 MG TAB PO SCH ×3 (08:11→20:49)
[2019-08-17] MEDS: RANITIDINE 150 MG TABLET PO SCH (08:11)
[2019-08-17] MEDS: GUAIFENESIN 600 MG SA TAB PO SCH ×2 (08:11→20:50)
[2019-08-17] MEDS: TAMSULOSIN 0.4 MG SR CAP PO SCH (08:11)
[2019-08-17] MEDS: CALCIUM 250 MG/VITAMIN D 125 IU TAB PO SCH (08:12)
[2019-08-17] MEDS ORDERED: GLUCAGON 1 MG/VIAL IM PRN (08:50)
[2019-08-17] MEDS ORDERED: D50W 25 GM/50 ML SYRINGE/VIAL IV PRN (08:50)
[2019-08-17] MEDS: FINASTERIDE 5 MG TAB PO SCH (08:51)
[2019-08-17] MEDS: TRAMADOL HCL 50 MG TAB PO PRN (08:52)
[2019-08-17] MEDS: METOPROLOL XL 25 MG TAB PO SCH (09:00)
[2019-08-17] MEDS ORDERED: INSULIN GLARGINE 100 UNITS/ML SQ SCH (09:00)
[2019-08-17] MEDS: ARFORMOTEROL TARTRATE 15 MCG/2 ML VIAL.NEB NEB SCH (10:05)
--- NOTE | 2019-08-17 12:51 | P.PN ---
Subjective Date of Service: 08/17/19 Primary Care Provider: [facility] Chief Complaint: fall Subjective: No new changes Subjective pt admitted with Hx of HTN , DM , CHF, admitted S/P fall developed JEB peak Cr 1.6 , improved on IVF today no overnight events Ct stable pending placement Physical exam general: AAOX3, NAD Neck; Supple, No elevated JVD hear: RRR, normal S1,2 no murmur or rub Chest: CTAB, no rales or wheezes Abdomen: Soft , Nt Extremities no edema Physical Examination - Vital Signs Temperature: 98.4 F Blood Pressure: 106/75 Pulse: 87 Respirations: 18 Pulse Ox (%): 94 - Studies Medications List Reviewed: Yes Assessment And Plan - Plan JEB on CKD III resolved Cr down to baseline will keep holding lasix for now S/P fall with chronic rib fractures pain control PT/OT DM as per primary team CHF euvolemic cont to hold diuretics AFIB on Eliquis UTI cont ABx Physician Review: Patient Assessed, Agree with Above Assessment and Plan
[2019-08-17] MEDS: ALBUTEROL 2.5 MG/3 ML NEB SOL NEB PRN (15:20)
--- NOTE | 2019-08-17 18:30 | PN ---
Date of Progress Note: 08/17/2019 Subjective: Patient is seen and examined. Chart reviewed and case discussed with RN. Also complete d a peer to peer with his insurance company who still denied rehab despite the peer to peer. They di d agree for high level SNF. Medications: List reviewed. Physical Examination: Vital Signs: Temperature 97.9, heart rate 68, blood pressure 100/60, respirations 18, O2 of 96% on 3 L via nasal cannula. General: Awake, alert, oriented x3, in some mild distress due to pain. Elderly male. CV: S1, S2. Regular rate and rhythm. Respiratory: Diminished breath sounds on the left. Some crackles present. No wheezing. Gastrointestinal: Abdomen is soft, nontender, nondistended. Positive bowel sounds. Extremities: No clubbing, cyanosis, or edema. Neurologic: Nonfocal. Musculoskeletal: Left upper extremity in sling. Laboratory Data: Blood glucose levels ranging between 73 to 155. Sputum cultures growing out proteu s, pseudomonas, and Staphylococcus aureus. Urine culture growing out E coli, all sensitive to Levaqu in. Assessment: A 74-year-old male with: 1.Recurrent falls. 2.Left rib fractures; 6th, 7th, 8th, and 9th ribs. Continue with pain medications. Add lidocaine p ain patch. Continue with incentive spirometry. X-ray shows some effusion. 3.Left long arm radial fracture. Continue sling. Appreciate ortho input. 4.Acute kidney injury secondary to dehydration and prerenal azotemia. Creatinine now back normal. Continue to monitor. Avoid NSAIDs. 5.Atrial fibrillation. Continue Eliquis for anticoagulation, rate control. 6.Acute respiratory failure secondary to chronic obstructive pulmonary disease exacerbation with inf ection with sputum culture positive for pseudomonas, proteus, and staph. Patient will complete 10 da ys of Levaquin today. We will discontinue in a.m. 7.Acute cystitis secondary to Escherichia coli, completed treatment with Levaquin. 8.Diabetes mellitus type 2, insulin requiring with hyperglycemia. Blood sugars are very labile all the way from 73 to 350. Insulin dose has again been adjusted. 9.Status post defibrillator pacemaker. 10.Anemia of chronic disease. Monitor H and H, currently stable. 11.Deep venous thrombosis prophylaxis. Patient already on anticoagulation. Plan: Patient was denied rehab despite the peer to peer pending [facility] facility placement, high-level in [place] versus rehab bed at the [facility]. Apparently has been accepted by the [facility] on Tuesday. /DARIEN Voice ID: [id number] Report ID: [id number]
[2019-08-17] MEDS ORDERED: ARFORMOTEROL TARTRATE 15 MCG/2 ML VIAL.NEB ONE (20:09)
[2019-08-17] MEDS: ATORVASTATIN 10 MG TAB PO SCH (20:49)
[2019-08-17] MEDS: LATANOPROST 0.005% 2.5ML OPTH OPTH SCH (20:51)
[2019-08-18] MEDS: IPRATROPIUM BROM 0.5MG/2.5ML NEB SCH ×4 (01:50→20:15)
[2019-08-18] MEDS: TRAMADOL HCL 50 MG TAB PO PRN ×2 (04:00→18:47)
[2019-08-18 05:56] LABS: Absolute Lymphocytes (CBC) 0.9 K/uL (0.7-4.9); Basophils % 0.9 % (0-1.3); Hematocrit 34.6 % (39.6-49.0); MPV 9.3 fL (7.6-11.3); RBC Red Blood Cell Count 3.69 M/uL (4.33-5.43)
[2019-08-18 06:11] LABS: Albumin 2.5 g/dL (3.4-5.0); Bilirubin Total 0.4 mg/dL (0.2-1.0); Magnesium 2.5 mg/dL (1.8-2.4); Potassium 3.7 mmol/L (3.5-5.1); Protein, Total 6.3 g/dL (6.4-8.2)
[2019-08-18] MEDS: MAGNES/ALUMIN/SIMET 30ML UCUP PO PRN ×2 (06:33→17:38)
[2019-08-18] MEDS: INSULIN -REGULAR HUMAN 50 UNIT/0.5 ML ML SQ SCH ×4 (07:30→20:30)
[2019-08-18] MEDS: CALCIUM 250 MG/VITAMIN D 125 IU TAB PO SCH (09:00)
[2019-08-18] MEDS: METOPROLOL XL 25 MG TAB PO SCH (09:00)
[2019-08-18] MEDS: LIDOCAINE 4% PATCH TOP SCH (09:15)
[2019-08-18] MEDS: levoFLOXacin 500 MG TAB PO SCH (09:16)
[2019-08-18] MEDS: FINASTERIDE 5 MG TAB PO SCH (09:16)
[2019-08-18] MEDS: APIXABAN 5 MG TABLET PO SCH ×2 (09:16→20:28)
[2019-08-18] MEDS: RANITIDINE 150 MG TABLET PO SCH (09:16)
[2019-08-18] MEDS: INSULIN GLARGINE 100 UNITS/ML SQ SCH (09:16)
[2019-08-18] MEDS: PREGABALIN 150 MG CAP PO SCH ×3 (09:17→20:27)
[2019-08-18] MEDS: TAMSULOSIN 0.4 MG SR CAP PO SCH (09:17)
[2019-08-18] MEDS: DOCUSATE CALCIUM 240 MG CAP PO SCH (09:17)
[2019-08-18] MEDS: DOCUSATE NA 100 MG CAP PO SCH ×2 (09:17→20:27)
[2019-08-18] MEDS: GUAIFENESIN 600 MG SA TAB PO SCH ×2 (09:17→20:28)
[2019-08-18] MEDS: OXYBUTYNIN ER 5 MG TAB PO SCH ×3 (09:17→20:28)
--- NOTE | 2019-08-18 12:10 | PN ---
Date of Progress Note: 08/18/2019 Subjective: Patient is seen and examined. Chart reviewed and case discussed with RN. Medications: List reviewed. Physical Examination: Vital Signs: Temperature 97.3, heart rate 69, blood pressure 94/52, respirations 20, O2 of 94% on 2 L via nasal cannula. General: Awake, alert, oriented x3, not in any acute distress, elderly male. Cough is improved. CV: S1, S2. Regular rate and rhythm. Peripheral pulses present. Respiratory: Diminished breath sounds on the left base. Minimal wheezing. No stridor. Gastrointestinal: Abdomen is soft, nontender, nondistended. Positive bowel sounds. No guarding or rigidity. Extremities: No clubbing, cyanosis. Minimal edema of the left upper extremity. Musculoskeletal: Left upper extremity in sling. Neuro: Patient has facial asymmetry, altered speech, weakness on the left side. Laboratory Data: Sodium 141, potassium 3.7, chloride 106, CO2 of 31, BUN 22, creatinine 1.35, glucose 80, calcium 8.3, magnesium 2.5, albumin 2.5. WBC 7.7, H and H of 11.5 and 34.6, platelets 180, neutrophils 77%. Cultures, sputum culture growing out proteus, pseudomonas, and staph. Urine culture growing out E coli sensitive to Levaquin. Wound culture from the left elbow shows mixed galilea. Assessment: A 74-year-old male with: 1. Recurrent falls. Continue with fall precautions. PT, OT. 2. Left rib fractures, 6th, 7th, 8th, and 9th ribs. Doing well with pain control. Continue incentive spirometry. Still has some effusion on the left base. Encourage sitting up in the chair and staying out of bed. 3. Left upper extremity radial and ulnar fracture. Continue with sling if patient did have a fracture blister. Cultures are showing skin contaminant. Continue with conservative treatment. Appreciate Orthopedic input. 4. Acute kidney injury secondary to dehydration and prerenal azotemia. Creatinine is slightly above baseline now. Continue to monitor. May need to add some IV fluids. Avoid NSAIDs. 5. Atrial fibrillation. Continue rate control. Patient is on Eliquis, stable. 6. Acute respiratory failure secondary to chronic obstructive pulmonary disease exacerbation with infection. Sputum cultures positive for pseudomonas, proteus, and staph. Today is day 10 of 10 for Levaquin, improving. 7. Acute cystitis secondary to Escherichia coli, completed with Levaquin. 8. Diabetes mellitus type 2, insulin requiring with hyperglycemia. Blood insulin levels were adjusted. Blood sugar is better today. 9. Status post defibrillator pacemaker. 10. Anemia of chronic disease. H and H are stable. Continue to monitor. 11. Deep vein thrombosis prophylaxis. Patient is on anticoagulation. Plan: Patient has been accepted by the [facility] for transfer on Tuesday to rehab otherwise higher level long term facility in [facility]. /DARIEN Voice ID: [id number] Report ID: [id number] MTDD
--- NOTE | 2019-08-18 19:52 | PN ---
Date of Progress Note: 08/18/2019 Chief Complaint: Acute kidney injury, nonoliguric, associated with prerenal azotemia. History Of Present Illness: Renal function is gradually improving. Patient was found to have elevat ed creatinine up to 1.6 and responded to IV fluids. Patient has history of hypertension, diabetes, c ongestive heart failure and was admitted with status post fall. Review of Systems: Denies new complaints. Denies fever, chills. Physical Examination: Lungs: Clear to auscultation bilaterally. Heart: S1, S2. Abdomen: Soft and benign. Extremities: No edema. Vital Signs: Blood pressure 106/75, temperature 98.4, heart rate 87. Laboratory Data: Hemoglobin 11.5, WBC 7.7, platelet count 188,000. Sodium 131, potassium 3.7, chlor esther 106, CO2 of 31, BUN 22, creatinine 1.35, glucose 80, magnesium 2.5, calcium 8.3. Impression And Plan: 1.Acute kidney injury, improving gradually. Patient has underlying chronic kidney disease stage 3. Avoid nephrotoxic medication. Continue to monitor fluid balance and continue hydration as tolerated , although patient has congestive heart failure. At some point, patient may require a maintenance di uretic, currently diuretic on hold. 2.Atrial fibrillation, on Eliquis. 3.Urinary tract infection, on antibiotics. 4.Status post fall. No evidence of rhabdomyolysis. Workup per primary team. Patient was admitted with status post fall and is undergoing pain control and physical therapy. EB/MODL Voice ID: [id number] Report ID: [id number]
[2019-08-18] MEDS: ATORVASTATIN 10 MG TAB PO SCH (20:28)
[2019-08-18] MEDS: LATANOPROST 0.005% 2.5ML OPTH OPTH SCH (20:30)
[2019-08-19] MEDS: IPRATROPIUM BROM 0.5MG/2.5ML NEB SCH ×4 (02:00→20:15)
[2019-08-19] MEDS: ALBUTEROL 2.5 MG/3 ML NEB SOL NEB PRN ×3 (05:09→13:40)
[2019-08-19] MEDS: TRAMADOL HCL 50 MG TAB PO PRN ×2 (05:38→13:27)
[2019-08-19 06:03] LABS: Potassium 3.6 mmol/L (3.5-5.1)
[2019-08-19] MEDS: INSULIN -REGULAR HUMAN 50 UNIT/0.5 ML ML SQ SCH ×4 (07:30→20:48)
[2019-08-19] MEDS: METOPROLOL XL 25 MG TAB PO SCH ×2 (09:00→09:31)
[2019-08-19] MEDS: CALCIUM 250 MG/VITAMIN D 125 IU TAB PO SCH (09:29)
[2019-08-19] MEDS: OXYBUTYNIN ER 5 MG TAB PO SCH ×3 (09:29→20:47)
[2019-08-19] MEDS: LIDOCAINE 4% PATCH TOP SCH (09:29)
[2019-08-19] MEDS: APIXABAN 5 MG TABLET PO SCH ×2 (09:30→20:47)
[2019-08-19] MEDS: GUAIFENESIN 600 MG SA TAB PO SCH ×2 (09:30→20:47)
[2019-08-19] MEDS: levoFLOXacin 500 MG TAB PO SCH (09:30)
[2019-08-19] MEDS: TAMSULOSIN 0.4 MG SR CAP PO SCH (09:30)
[2019-08-19] MEDS: RANITIDINE 150 MG TABLET PO SCH (09:30)
[2019-08-19] MEDS: DOCUSATE NA 100 MG CAP PO SCH ×2 (09:30→20:47)
[2019-08-19] MEDS: DOCUSATE CALCIUM 240 MG CAP PO SCH (09:30)
[2019-08-19] MEDS: PREGABALIN 150 MG CAP PO SCH ×3 (09:31→20:47)
[2019-08-19] MEDS: INSULIN GLARGINE 100 UNITS/ML SQ SCH (09:32)
[2019-08-19] MEDS: FINASTERIDE 5 MG TAB PO SCH (09:33)
--- NOTE | 2019-08-19 11:38 | PN ---
Date of Progress Note: 08/19/2019 Subjective: Patient is seen and examined. Chart reviewed and case discussed with RN and Dr. Li. Patient is doing well, will be transferred to [facility] in a.m. No significant complaints. Medications: List reviewed. Physical Examination: Vital Signs: Temperature 97.1, heart rate 79, blood pressure 120/59, respirations 18, O2 of 92% on 3 L via nasal cannula. General: Awake, alert, and oriented x3. Elderly male, no acute distress. CV: S1, S2. Regular rate and rhythm. Peripheral pulses present. Respiratory: Diminished breath sounds. Wheezing heard. Crackles on the left base. No use of acces lexa muscles. Gastrointestinal: Abdomen is soft, nontender, nondistended. Positive bowel sounds. Extremities: Edema of the left upper extremity. Left upper extremity in a sling. Neurologic: Nonfocal. Laboratory Data: Sodium 141, potassium 3.6, chloride 106, CO2 of 30, BUN 21, creatinine 1.18, glucos e 87, calcium 8.3. Wound culture from the left elbow, growing out Staphylococcus aureus. Sputum cul ture growing out Proteus, Pseudomonas, as well as Staph aureus. Urine culture growing out E coli. Assessment: A 74-year-old male with: 1.Recurrent falls. Fall precautions. Continue with PT and OT. 2.Left rib fractures, 6 through the 9th ribs. Pain is well controlled. Continue with incentive spi rometry and physical therapy. 3.Left upper extremity radial ulnar fracture. Continue with sling. Fracture blister positive for S taphylococcus aureus. We will continue with Levaquin. Appreciate Orthopedic input. We will discuss further with Dr. Tong. Need for possible intervention due to positive cultures. 4.Acute kidney injury secondary to dehydration and prerenal azotemia. Creatinine is improved. We w ill continue to monitor creatinine level. Avoid NSAIDs. 5.Atrial fibrillation, currently in sinus rhythm. Continue rate control. Continue Eliquis. 6.Acute respiratory failure secondary to chronic obstructive pulmonary disease exacerbation with acu te infection of pseudomonas, proteus, and staph. Completed 10 days of Levaquin. We will discontinue . 7.Acute cystitis secondary to Escherichia coli, treatment completed. 8.Diabetes mellitus type 2, insulin requiring with hyperglycemia. Blood sugars are improved with ad justed insulin. We will continue to monitor. 9.Status post defibrillator pacemaker. 10.Anemia of chronic disease. H and H are stable. 11.Deep venous thrombosis prophylaxis. Continue Eliquis. Plan: Discharged to rehab in a.m. once bed is available at the [facility]. JOYCE Voice ID: [id number] Report ID: [id number]
[2019-08-19] MEDS: ATORVASTATIN 10 MG TAB PO SCH (20:47)
[2019-08-19] MEDS: LATANOPROST 0.005% 2.5ML OPTH OPTH SCH (20:50)
--- NOTE | 2019-08-20 00:23 | PN ---
Date of Progress Note: 08/19/2019 Subjective: Acute kidney injury, nonoliguric, associated with prerenal azotemia. Renal function is gradually improving. Patient was found to have elevated creatinine up to 1.6, responded to IV fluids . He is admitted to the hospital after status post fall. He has history of hypertension, diabetic k idney, he has congestive heart failure. Review of Systems: Denies new complaints. Physical Examination: Lungs: Clear to auscultation bilaterally. Heart: S1, S2. Abdomen: Soft, benign. Extremities: No edema. Laboratory Data: Hemoglobin 11.5, platelet count 188,000, WBC 7.7. Sodium 131, potassium 3.7, chlor esther 106, CO2 of 32, and creatinine 1.35. Magnesium 2.0, calcium 8.3. Impression And Plan: 1.Acute kidney injury, improving gradually. Continue IV fluids. 2.Hyponatremia. Continue to reevaluate electrolytes and adjust fluid intake accordingly. 3.Avoid nephrotoxic medication. Patient has chronic kidney disease stage 3 due to benign nephroscle rosis. 4.Atrial fibrillation, on Eliquis. Monitor hemoglobin level. 5.Urinary tract infection, on antibiotics, status post fall. No evidence of rhabdomyolysis. Furthe r workup per primary team. EB/MODL Voice ID: [id number] Report ID: [id number]
[2019-08-20] MEDS: IPRATROPIUM BROM 0.5MG/2.5ML NEB SCH ×2 (02:15→08:25)
[2019-08-20 06:14] LABS: Absolute Lymphocytes (CBC) 0.5 K/uL (0.7-4.9); Basophils % 0.9 % (0-1.3); Hematocrit 32.7 % (39.6-49.0); Lymphocytes % 6.9 % (15.3-44.8); MPV 9.3 fL (7.6-11.3); RBC Red Blood Cell Count 3.51 M/uL (4.33-5.43)
[2019-08-20] MEDS: INSULIN -REGULAR HUMAN 50 UNIT/0.5 ML ML SQ SCH (07:30)
[2019-08-20] MEDS: MAGNES/ALUMIN/SIMET 30ML UCUP PO PRN (07:53)
[2019-08-20] MEDS: METOPROLOL XL 25 MG TAB PO SCH (09:00)
[2019-08-20] MEDS: LIDOCAINE 4% PATCH TOP SCH (09:15)
[2019-08-20] MEDS: INSULIN GLARGINE 100 UNITS/ML SQ SCH (09:15)
[2019-08-20] MEDS: CALCIUM 250 MG/VITAMIN D 125 IU TAB PO SCH (09:16)
[2019-08-20] MEDS: PREGABALIN 150 MG CAP PO SCH (09:16)
[2019-08-20] MEDS: RANITIDINE 150 MG TABLET PO SCH (09:17)
[2019-08-20] MEDS: TAMSULOSIN 0.4 MG SR CAP PO SCH (09:18)
[2019-08-20] MEDS: APIXABAN 5 MG TABLET PO SCH (09:18)
[2019-08-20] MEDS: OXYBUTYNIN ER 5 MG TAB PO SCH (09:19)
[2019-08-20] MEDS: DOCUSATE CALCIUM 240 MG CAP PO SCH (09:19)
[2019-08-20] MEDS: TRAMADOL HCL 50 MG TAB PO PRN (09:20)
[2019-08-20] MEDS: DOCUSATE NA 100 MG CAP PO SCH (09:20)
[2019-08-20] MEDS: GUAIFENESIN 600 MG SA TAB PO SCH (09:20)
[2019-08-20] MEDS: FINASTERIDE 5 MG TAB PO SCH (09:24)
[2019-08-20 09:35] VITALS: BP 116/64; TEMP 97.9
[2019-08-20 11:25] VITALS: O2SAT 93
--- NOTE | 2019-08-21 00:26 | DS ---
Date of Discharge: 08/20/2019 Consultants: 1.Dr. Hunter with Pulmonology. 2.Dr. Tilley. 3.Dr. Kay. 4.Dr. Li with Nephrology. 5.Dr. Ayoub with General Surgery. 6.Dr. Tong with Orthopedic Surgery. Procedures: None. Admitting Diagnoses: 1.Recurrent falls. 2.Multiple left rib fractures. 3.Left ulnar and radial fracture. 4.Rhabdomyolysis. 5.Essential hypertension. 6.Atrial fibrillation on chronic anticoagulation. 7.Hyperkalemia. 8.Acute cystitis. Discharge Diagnoses: 1.Recurrent falls. 2.Left rib fractures 6th through 9th ribs. 3.Left upper extremity radial ulnar fracture on sling. 4.Acute kidney injury secondary to dehydration, prerenal azotemia, resolved. 5.Atrial fibrillation, paroxysmal on Eliquis. 6.Acute respiratory failure secondary to chronic obstructive pulmonary disease exacerbation with acu te infection of Pseudomonas, Proteus and staph. 7.Acute cystitis secondary to Escherichia coli. 8.Diabetes mellitus type 2 insulin requiring with hyperglycemia. 9.Status post defibrillator pacemaker. 10.Anemia of chronic disease. 11.Hyperkalemia. 12.Diastolic congestive heart failure, chronic. 13.History of cerebrovascular accident with left-sided weakness. Hospital Course: Patient is a 74-year-old male with past medical history of atrial fibrillation, teri stolic congestive heart failure, hypertension, recurrent falls, diabetes, history of cerebrovascular accident with left-sided weakness, defibrillator pacemaker, who came into the hospital with a fall an d left arm pain. Patient was found to have multiple rib fractures on the left as well as a fracture on the left ulna. Patient was seen by Trauma, Dr. Ayoub. He was also seen by Dr. Tong with Orthopedics, arm was placed in the sling. Patient was started on pain control for his fractures. He did have hyperkalemia initially, which was treated. The patient's CK level was 104. The patient ov erall did well. He did develop some pleural effusion and atelectasis as well as an infection on that left side of the chest. His cultures grew out Proteus, Pseudomonas and Staph aureus. He was switch ed over to Levaquin. His urine culture also grew out E coli. He completed treatment with Levaquin f or a total of 10 days. Patient was seen by Nephrology for acute kidney injury. His kidney function improved. Hemoglobin remained stable. Once his pain was slightly improved, he was able to work with Physical Therapy and did well. He was then referred to rehab; however, insurance denied rehab and t herefore was then accepted to SNF at the [facility]. Patient was then stable from medical standpoint. He wi ll need to follow up with Orthopedics, Dr. Tong for his ulnar fracture. He did have a fracture blister, which grew out Staph. He was treated with Levaquin. He will need to follow up with him for further surgical intervention. He will need to follow up with kidney doctor, Dr. Kay in 2 week s. Followup: Follow up with PCP in 2-3 days. Return to ER for worsening condition. Medications: As per medication reconciliation list. Completed course of antibiotics. He will need a chest x-ray in 1 week for resolution of his effusion. Diet: Diabetic. Activity: Fall precautions. Physical Examination: General: Awake, alert, and oriented x3. Elderly male, not in any acute distress. CV: S1, S2. Respiratory: Diminished breath sounds at the left base. No wheezing or stridor. Gastrointestinal: Abdomen is soft, nontender, nondistended. Positive bowel sounds. Extremities: No clubbing, cyanosis. Patient has minimal edema of the left upper extremity. Neuro: Left-sided weakness, facial asymmetry. Total time spent discharging patient was 34 minutes. /DARIEN Voice ID: [id number] Report ID: [id number]
== END 2019-08-20 11:31 | DRG 183 ==
LOC: ER 06:02 → ERHOLD 11:00 → 2ND 12:54 → 3RD-ICU 19:57 → 2ND 08-07 13:10
PROVIDERS: ADMIT Internal Medicine; ATTEND Family Medicine
DX: S22.42XA Multiple fractures of ribs, left side, initial encounter for closed fracture (principal); J96.00 Acute respiratory failure, unspecified whether with hypoxia or hypercapnia; G92 Toxic encephalopathy; J15.1 Pneumonia due to Pseudomonas; J15.211 Pneumonia due to Methicillin susceptible Staphylococcus aureus; I50.32 Chronic diastolic (congestive) heart failure; N17.9 Acute kidney failure, unspecified; I48.20 Chronic atrial fibrillation, unspecified; I13.0 Hypertensive heart and chronic kidney disease with heart failure and stage 1 through stage 4 chronic kidney disease, or unspecified chronic kidney disease; I69.954 Hemiplegia and hemiparesis following unspecified cerebrovascular disease affecting left non-dominant side; M62.82 Rhabdomyolysis; J44.0 Chronic obstructive pulmonary disease with (acute) lower respiratory infection; J44.1 Chronic obstructive pulmonary disease with (acute) exacerbation; S52.002A Unspecified fracture of upper end of left ulna, initial encounter for closed fracture; N18.3 Chronic kidney disease, stage 3 (moderate); E87.5 Hyperkalemia; E11.22 Type 2 diabetes mellitus with diabetic chronic kidney disease; E11.649 Type 2 diabetes mellitus with hypoglycemia without coma; I25.10 Atherosclerotic heart disease of native coronary artery without angina pectoris; D63.8 Anemia in other chronic diseases classified elsewhere; E88.09 Other disorders of plasma-protein metabolism, not elsewhere classified; W18.30XA Fall on same level, unspecified, initial encounter; Y92.9 Unspecified place or not applicable; Z91.81 History of falling; Z79.4 Long term (current) use of insulin; Z79.01 Long term (current) use of anticoagulants; Z95.0 Presence of cardiac pacemaker
CPT/HCPCS: 36415; 70450; 71045; 71260; 72125; 72170; 73200; 74177; 76770; 80048; 80053; 80069; 80076; 81003; 81015; 82550; 82570; 82607; 82728; 82947; 83540; 83690; 83735; 83880; 84100; 84156; 84166; 84300; 84443; 84466; 84484; 85025; 85610; 86334; 86850; 86900; 86901; 87070; 87077; 87086; 87088; 87186; 87205; 93005; 93306; 94640; 97112; 97116; 97161; 97530; 99285; G0103; J0610; J0696; J1170; J1650; J1815; J1940; J2310; J2405; J2920; J3010; J3475; J7030; J7040; J7512; J7605; Q9967

== ENCOUNTER 2020-05-16 21:35 | Emergency (ER) | payer OTHER ==
--- OUTSIDE RECORDS SUMMARY | 2020-05-16 21:39 | XMS REPORT | Continuity of Care Document ---
:1945 Author Organization [facility] [employer] Information Intermedia Care Team Providers Name Role Phone [facility] [employer] Unavailable Un available Problems Problem Status Onset Classification Date Comments Sourc e Date Reported Methicillin Active 08/16/19 Problem 08/21/2016 Nares, 08/16/2016 [facility] resistant Problem added by Dis cern Expert. 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 DYSTHYMIC DISORDER Active H [facility] UNSP PHYSEAL Active [facility] s FRACTURE OF LOWER Me dical END OF UL Center Medications Medication Details Route Status Patient Ordering Order Source Instructions Provider Date bacitracin-polym Notes: (Same As: No Longer 07/26 [facility] yxin B topical Polysporin) Active 2016 Medic al [place] Neosporin 1 appl, Route: Inactive [place] as TOP, Daily, Drug 2017 Medical form: OINT, Center Start date: 08/18/16 15:07:00 DIRECTOR TELECOMMUNICATIONS, Duration: 30 day, Stop date: 09/17/16 9:00:00 DIRECTOR TELECOMMUNICATIONS apixaban 5 MG 5 mg = 1 tab, Active 08[place]18/ [place] Oral Tablet PO, BID, # 60 2017 Medica l [Eliquis] tab, 0 Refill(s) Cente r tamsulosin 0.4 0.4 mg = 1 cap, Active H [place] mg oral capsule PO, Daily, # 30 2016 Medical cap, 0 Refill(s) Center Ranitidine 150 150 mg = 1 tab, Active H [place] MG Oral Tablet PO, BID, # 60 2016 Med ical tab, 0 Refill(s) Center omeprazole 40 mg 40 mg = 1 cap, Active [place] oral delayed PO, Daily, # 30 2016 Med ical release capsule cap, 0 Refill(s) Center Metformin 500 mg = 1 tab, Active [place] as hydrochloride PO, BID-Meals, # 2016 M edical 500 MG Oral 180 tab, 0 Center Tablet Refill(s) Furosemide 20 MG 20 mg = 1 tab, Active [place] Oral Tablet PO, Daily, # 30 2016 Medi florin tab, 0 Refill(s) Center finasteride 5 mg 5 mg = 1 tab, Active H [place] oral tablet PO, Daily, # 30 2016 Medi florin tab, 0 Refill(s) Center DULoxetine 60 mg 60 mg = 1 cap, Active [place] oral delayed PO, Daily, # 30 2016 Med ical release capsule cap, 0 Refill(s) Center DULoxetine 60 mg 60 mg = 1 cap, Inactive [place] oral delayed PO, Daily, # 30 2016 Med ical release capsule cap, 0 Refill(s) Center finasteride 5 mg 5 mg = 1 tab, Inactive [place] oral tablet PO, Daily, # 30 2016 Medi florin tab, 0 Refill(s) Center Furosemide 20 MG 20 mg = 1 tab, Inactive [place] Oral Tablet PO, Daily, # 30 2016 Medi florin tab, 0 Refill(s) Center Metformin 500 mg = 1 [place], [place] hydrochloride PO, BID-Meals, # 2016 M edical 500 MG Oral 180 tab, 0 Center Tablet Refill(s) omeprazole 40 mg 40 mg = 1 cap, Inactive [place] oral delayed PO, Daily, # 30 2016 Med ical release capsule cap, 0 Refill(s) Center Ranitidine 150 150 mg = 1 tab, Inactive [place] MG Oral Tablet PO, BID, # 60 2016 Med ical tab, 0 Refill(s) Center tamsulosin 0.4 0.4 mg = 1 cap, Inactive [place] mg oral capsule PO, Daily, # 30 2016 Medical cap, 0 Refill(s) Center apixaban 5 MG 5 mg = 1 tab, Inactive [place] Oral Tablet PO, BID, # 60 2016 Medica l [Eliquis] tab, 0 Refill(s) Cente r atorvastatin 40 40 mg = 1 tab, Active H [place] mg oral tablet PO, Bedtime, # 2016 Me dical 30 tab, 0 Center Refill(s) metoprolol 25 mg = 1 tab, Active [place] as tartrate 25 mg PO, BID, # 60 2016 Med ical oral tablet tab, 0 Refill(s) [facility]ine ter metoprolol 25 mg = 1 tab, [place]active [place] tartrate 25 mg PO, BID, # 60 2016 Med ical oral tablet tab, 0 Refill(s) Geraldine ter atorvastatin 40 40 mg = 1 tab, Inactive [place] mg oral tablet PO, Bedtime, # 2016 Me dical 30 tab, 0 Center Refill(s) apixaban 5 MG 5 mg = 1 tab, Inactive [place] Oral Tablet PO, BID, # 60 2016 Medica l [Eliquis] tab, 0 Refill(s) Cente r tamsulosin 0.4 0.4 mg = 1 cap, Inactive [place] mg oral capsule PO, Daily, # 30 2016 Medical cap, 0 Refill(s) Center Ranitidine 150 150 mg = 1 tab, Inactive [place] MG Oral Tablet PO, BID, # 60 2016 Med ical tab, 0 Refill(s) Center omeprazole 40 mg 40 mg = 1 cap, Inactive [place] oral delayed PO, Daily, # 30 2016 Med ical release capsule cap, 0 Refill(s) Center Metformin 500 mg = 1 tab, [place] hydrochloride PO, BID-Meals, # 2016 M edical 500 MG Oral 180 tab, 0 Center Tablet Refill(s) Furosemide 20 MG 20 mg = 1 tab, Inactive [place] Oral Tablet PO, Daily, # 30 2016 [facility] florin tab, 0 Refill(s) Center finasteride 5 mg 5 mg = 1 tab, Inactive [place] oral tablet PO, Daily, # 30 2016 [facility] florin tab, 0 Refill(s) Center DULoxetine 60 mg 60 mg = 1 cap, Inactive [place] oral delayed PO, Daily, # 30 2016 Med ical release capsule cap, 0 Refill(s) Center apixaban 5 MG 5 mg = 1 tab, Inactive [place] Oral Tablet PO, BID, # 60 2016 Medica l [Eliquis] tab, 0 Refill(s) Cente r tamsulosin 0.4 0.4 mg = 1 cap, Inactive [place] mg oral capsule PO, Daily, # 30 2016 Medical cap, 0 Refill(s) Center Ranitidine 150 150 mg = 1 tab, Inactive [place] MG Oral Tablet PO, BID, # 60 2016 Med ical tab, 0 Refill(s) Center Metformin 500 mg = 1 tab, [place] hydrochloride PO, BID-Meals, # 2016 M edical 500 MG Oral 180 tab, 0 Center Tablet Refill(s) Furosemide 20 MG 20 mg = 1 tab, Inactive [place] Oral Tablet PO, Daily, # 30 2016 [facility] florin tab, 0 Refill(s) Center finasteride 5 mg 5 mg = 1 tab, Inactive [place] oral tablet PO, Daily, # 30 2016 [facility] florin tab, 0 Refill(s) Center DULoxetine 60 mg 60 mg = 1 cap, Inactive [place] oral delayed PO, Daily, # 30 2016 Med ical release capsule cap, 0 Refill(s) Center metoprolol 25 mg = 1 tab, [place]active [place] tartrate 25 mg PO, BID, # 60 2016 Med ical oral tablet tab, 0 Refill(s) [facility] ter omeprazole 40 mg 40 mg = 1 cap, Inactive [place] oral delayed PO, Daily, # 30 2016 Med ical release capsule cap, 0 Refill(s) Center atorvastatin 40 40 mg = 1 tab, Inactive [place] mg oral tablet PO, Bedtime, # 2016 Me dical 30 tab, 0 Center Refill(s) hydrOXYzine 25 mg = 1 cap, Inactive [place] pamoate PO, Q6H, PRN 2017 Medical nausea, # 20 Center cap, 0 Refill(s) Furosemide 20 MG 20 mg = 1 tab, Inactive [place] Oral Tablet PO, Daily, # 30 2016 Medi florin tab, 0 Refill(s) Center finasteride 5 mg 5 mg = 1 tab, Inactive [place] oral tablet PO, Daily, # 30 2016 [facility] florin tab, 0 Refill(s) Center omeprazole 20 mg 20 mg = 1 tab, Inactive [place] oral enteric PO, BID, # 30 2017 Medic al coated tablet tab, 0 Refill(s) C enter tamsulosin 0.4 0.4 mg = 1 cap, Inactive [place] mg oral capsule PO, Daily, # 30 2017 Medical cap, 0 Refill(s) Center Omeprazole PO, Daily, 0 [place] Refill(s) 2017 Medical Center metoprolol 25 mg = 1 tab, [place] tartrate 25 mg PO, BID, # 180 2017 Pr dical oral tablet tab, 0 Refill(s) Geraldine ter apixaban 5 MG 5 mg = 1 tab, Inactive [place] Oral Tablet PO, BID, 0 2017 Medical [Eliquis] Refill(s) Center Metformin 500 mg = 1 tab, [place] hydrochloride PO, BID-Meals, # 2017 M edical 500 MG Oral 30 tab, 0 Center Tablet Refill(s) Ranitidine 150 150 mg = 1 tab, Inactive [place] MG Oral Tablet PO, BID, # 60 2017 Med ical tab, 0 Refill(s) Center DULoxetine 60 mg 60 mg = 1 cap, Inactive [place] oral delayed PO, Daily, # 30 2017 Med ical release capsule cap, 0 Refill(s) Center simvastatin 10 10 mg = 1 tab, Inactive H [place] mg oral tablet PO, Bedtime, # 2017 Me dical 30 tab, 0 Center Refill(s) oxybutynin 5 mg 5 mg = 1 tab, Inactive H [place] oral tablet PO, TID, PRN 2017 Medical Other-See Center Comments, # 30 tab, 0 Refill(s) Sodium Chloride 250 mL, 250 Inactive [place] 0.154 MEQ/ML ml/hr, Infuse 2017 Medic al Injectable Over: 1 hr, [place] Solution Route: IV, 250, Drug form: INJ, ONCE, Priority: STAT, Dosing Weight 82 kg, Start date: 08/18/16 8:56:00 DIRECTOR TELECOMMUNICATIONS, Duration: 1 doses or times, Stop date: 08/18/16 8:56:00 DIRECTOR TELECOMMUNICATIONS Tylenol Notes: Do not Inactive [place] exceed 4 gm/day. 2017 Medical (Same as: [place] Tylenol) Magnesium Oxide Notes: (Same as: Inactive [facility] Mag-Ox 400) 2017 [facility] Magnesium oxide [place] [id number] elemental magnesium Dose=____mg magnesium oxide (___mg elemental magnesium) Metoprolol Notes: (Same as: Inactive [place] Lopressor) Push 2017 Medical over 2 minutes Center Robitussin 30 mg, Route: No Longer [place] CoughGels PO, Q6H, Dosing Active 2017 Medica l Weight 82, kg, Center Start date: 08/18/16 0:00:00 DIRECTOR TELECOMMUNICATIONS, Duration: 30 day, Stop date: 09/16/16 18:00:00 DIRECTOR TELECOMMUNICATIONS Eliquis Notes: Same as: No Longer [place] as Eliquis Active [address] [place] [address] benzocaine-menth Notes: Cepacol No Longer [facility] ol topical lozenges Active 2017 Medical Dispense 1 box = Center 16 lozenges (Same As: Cepacol Lozenges) Albuterol 0.833 Notes: (Same as: No Longer 08/18 [place] MG/ML / Duoneb) Active 2017 [facility] Ipratropium [place] 0.167 MG/ML Inhalant Solution [DuoNeb] metoprolol Notes: (Same as: No Longer [facility] tartrate Lopressor) Active 2017 Medical 12.5mg=1/4 X 50 Center mg tab. Metoprolol Notes: (Same as: Inactive [place] Lopressor) Push 2017 Medical over 2 minutes Center Acetaminophen Notes: Max Inactive [place] as acetaminophen = 2017 Medical 4000mg/day (4 Center gm/day). (Same as: Tylenol) Magnesium Oxide Notes: (Same as: Inactive [place] Mag-Ox 400) 2017 Medical Magnesium oxide Center [id number] elemental magnesium Dose=____mg magnesium oxide (___mg elemental magnesium) Tramadol Notes: Not to Inactive [place] exceed 2017 Medical 400mg/day. (Same Center As: Ultram) atorvastatin Notes: (Same as: No Longer [place] Lipitor) Active 2017 Medical Center insulin detemir Notes: Same as No Longer [place] Levemir Do not Active 2017 Medical hold insulin Center without contacting prescriber WASTE: F/P - Black; E - Municipal Trash Bin "single patient use only" Protonix Notes: Tablet Inactive [place] should not be 2017 Medical chewed or Center crushed. (Same as: Protonix) Insulin Glargine 5 unit, Route: Inactive [place] 100 UNT/ML SUB-Q, Daily, 2017 Medical Injectable Dosing Weight Center Solution 82, kg, Start date: 08/16/16 9:00:00 DIRECTOR TELECOMMUNICATIONS, Duration: 30 day, Stop date: 09/14/16 9:00:00 DIRECTOR TELECOMMUNICATIONS Docusate Sodium Notes: (Same as No Longer [place] 50 MG / Senokot-S) Active 2016 Medical sennosides, ALF Equiv. to Center 8.6 MG Oral Nicolas[place]-Colace. Tablet Insulin, Aspart, Notes: Roll in No Longer [place] Human palms of hands Active 2017 Medical gently; Do not Center shake vigorously. (Same as: NovoLOG) "single patient use only" WASTE: F/P - Black; E - Municipal Trash Bin Stable for 28 days at room temperature. Expires in days from Da te Glucagon 1 mg, Route: IM, No Longer [place] Drug form: Active 2016 Medical PDR/INJ, PRN, Center Dosing Weight 82, kg, PRN Blood Glucose Results, Start date: 08/16/16 4:31:00 DIRECTOR TELECOMMUNICATIONS, Duration: 30 day, Stop date: 09/15/16 4:30:00 DIRECTOR TELECOMMUNICATIONS Dextrose 50% 12.5 gm, 25 mL, No Longer H [place] Syringe Route: IVP, Drug Active 2016 Medical Form: INJ, Center Dosing Weight 82, kg, PRN, PRN Blood Glucose Results, Start date: 08/16/16 4:31:00 DIRECTOR TELECOMMUNICATIONS, Duration: 30 day, Stop date: 09/15/16 4:30:00 DIRECTOR TELECOMMUNICATIONS heparin additive 500 mL, Rate: No Longer [place] 25,000 unit [14 20.68 ml/hr, Active 2016 Med ical unit/kg/hr] + Infuse over: Cente r Premix Diluent 24.2 hr, Route: Dextrose 5% 500 IV, Dosing mL Weight 73.84 kg, Total Volume: 500 mL, Start date: 08/16/16 4:31:00 DIRECTOR TELECOMMUNICATIONS, Duration: 30 day, Stop date: 09/15/16 4:30:00 DIRECTOR TELECOMMUNICATIONS Magnesium Notes: WASTE: Inactive [place] Sulfate F/P - Sink; E - 2017 [facility] Trash [place] Bin Magnesium 2 gm, Route: Inactive [place] Sulfate IVPB, Drug form: 2016 Medical INJ, ONCE, Center Dosing Weight 82, kg, Start date: 08/16/16 3:18:00 DIRECTOR TELECOMMUNICATIONS, Duration: 2 hr, Stop date: 08/16/16 3:18:00 DIRECTOR TELECOMMUNICATIONS Norepinephrine Notes: Not for No Longer [place] direct Active 2017 Medical administration - Center DILUTE. Protect from light. (Same as:Levophed). Administer by either central venous catheter or peripherally-ins erted central catheter (PICC) line. Versed Notes: (Same as: Inactive [place] as Versed) 2017 Medical MEDICATION WASTE Center Product Size: 2 mg Product Wasted: ___ mg Fentanyl 1,000 microgram, Inactive [place] 20 mL, Rate: 2017 Medical Titrate, Start Center Dose: 50 microgram/hr, Titration: 25 microgram/hour every 15 minutes, Goal(s): RASS -2, Max Dose: 300 microgram/hr, Route: IV, Dosing Weight 82 kg, Total Volume: 20, Start date: 08/16/16 1:48:00 DIRECTOR TELECOMMUNICATIONS, Durati... tramadol 50 mg = 1 tab, Active [place] hydrochloride 50 PO, Q6H, PRN 2016 Me dical MG Oral Tablet Pain Score 6-10, Center X 7 day, # 15 tab, 0 Refill(s) insulin detemir 8 unit, SUB-Q, Active H [place] 100 units/mL Daily, you can 2016 [facility] subcutaneous increase your Cente r solution long-acting insulin dose back to30 units you were taking prior if your sugars are more than 200 repeatedly. You did not require your home doses in the hospital., 0 Refill(s) senna 8.6 mg 17.2 mg = 2 tab, Active [place] oral tablet PO, Bedtime, PRN 2016 Med ical Constipation, Center AVAILABLE OVER THE COUNTER WITHOUT PRESCRIPTION, X 10 day, # 20 tab, 0 Refill(s) Amylases 03162 1 cap, PO, BID, Active H [place] UNT / PRN snack, 0 2015 Medical Endopeptidases Refill(s) Center 64841 UNT / Lipase 6000 UNT Enteric Coated Capsule [Creon 6] docusate sodium 100 mg = 1 cap, Active [place] 100 mg oral PO, BID, 2016 Medical capsule AVAILABLE OVER Center THE COUNTER WITHOUT PRESCRIPTION, # 60 cap, 0 Refill(s) oxybutynin 5 mg 5 mg = 1 tab, Active [place] oral tablet PO, TID, PRN 2016 Medical Bladder Spasm, 0 Center Refill(s) tramadol 50 mg = 1 tab, Inactive [place] hydrochloride 50 PO, Q6H, PRN 2016 Me dical MG Oral Tablet Pain Score 6-10, Center X 7 day, # 28 tab, 0 Refill(s) melatonin 3 mg 3 mg, PO, Active [place] oral tablet Bedtime, X 30 2016 Medica l day, # 30 tab, 0 Center Refill(s) methocarbamol 750 mg = 1 tab, Active [place] 750 mg oral PO, TID, X 14 2016 Medica l tablet day, # 42 tab, 0 Center Refill(s) Insulin, Aspart, 6 unit, SUB-Q, Active [facility] Human TID-Before 2016 Medical Meals, you can Center increase your insulin doses back to 12 units you were taking prior if your sugars are more than 200 repeatedly. You did not require your home doses in the hospital., 0 Refill(s) latanoprost 0.05 1 drp, RIGHT Active [place] MG/ML Ophthalmic EYE, Bedtime, 0 2015 Medical Solution Refill(s) Center acetaminophen 1,000 mg = 2 Active [place] 500 mg oral tab, PO, Q6H, 2016 Medica l tablet not to exceed Center 4000 mg/day, 0 Refill(s) insulin detemir Notes: Same as Inactive [place] Levemir Do not 2016 Medical hold insulin Center without contacting prescriber WASTE: F/P - Black; E - Municipal Trash Bin "single patient use only" insulin detemir Notes: Same as Inactive [place] Levemir Do not 2016 Medical [facility] insulin Center without contacting prescriber WASTE: F/P - Black; E - Municipal Trash Bin "single patient use only" Enoxaparin Notes: (Same as: No Longer [place] Lovenox) Active 2015 Medical Center Kenalog 0.1% Notes: No Longer [place] topical cream (triamcinolone Active 2015 Med ical acetonide 0.1% Center 15 gm top CRM) (Same As: Kenalog) Insulin, Aspart, Notes: Roll in No Longer [place] Human palms of hands Active 2015 Medical gently; Do not Center shake vigorously. (Same as: NovoLOG) "single patient use only" WASTE: F/P - Black; E - Municipal Trash Bin Stable for 28 days at room temperature. Expires in days from Da te insulin detemir Notes: Same as No Longer [place] Levemir Do not Active 2015 Medical hold insulin Center without contacting prescriber WASTE: F/P - Black; E - Municipal Trash Bin "single patient use only" Insulin, Aspart, Notes: Roll in No Longer [facility] Human palms of hands Active 2015 Medical gently; Do not Center shake vigorously. (Same as: NovoLOG) "single patient use only" WASTE: F/P - Black; E - Municipal Trash Bin Stable for 28 days at room temperature. Expires in days from Da te Robaxin Notes: (Same No Longer [place] as:Robaxin) Active 2016 Medical Center Flomax Notes: (Same As: [place] Longer [place] Flomax) "Do Not Active 2015 Medical Crush" [place] pantoprazole Notes: Tablet No Longer [place] should not be Active 2015 Medical chewed or Center crushed. (Same as: Protonix) Finasteride Notes: (Same as: No Longer [facility] Proscar) "Do Active 2016 Medical Not Crush" [place] Women of childbearing age should not touch or handle broken tablets duloxetine Notes: (Same as: No Longer [place] Cymbalta) (Do Active 2015 Medical Not Crush) [place] Aspirin 81 MG Notes: Do not No Longer [place] Enteric Coated crush or chew. Active 2015 Me dical Tablet (Same As: [place] Ecotrin) Amylases 83098 Notes: (lipase No Longer [place] UNT / 60,000 units, Active 2016 Medical Endopeptidases protease 19,000 C enter 99414 UNT / units, amylase Lipase 6000 UNT 30,000 units Enteric Coated DRC) Same as: Capsule [Creon Creon (Creon 6) 6] Amylases 91219 Notes: (lipase No Longer [place] UNT / 60,000 units, Active 2016 Medical Endopeptidases protease 19,000 C enter 70284 UNT / units, amylase Lipase 6000 UNT 30,000 units Enteric Coated DRC) Same as: Capsule [Creon Creon (Creon 6) 6] Simvastatin Notes: (Same as: No Longer [facility] Zocor) Active 2016 Medical [place] Melatonin 3 MG Notes: (Same as: No Longer [place] Extended Release Melatonin) Active 2016 Medi florin Tablet Center latanoprost 0.05 Notes: Keep No Longer [facility] MG/ML Ophthalmic refrigerated. Active 2015 edical Solution (Same Center as:Xalatan) insulin detemir Notes: Same as No Longer [place] Levemir Do not Active 2015 Medical hold insulin Center without contacting prescriber WASTE: F/P - Black; E - Municipal Trash Bin "single patient use only" tramadol Notes: Not to [place] Longer [place] hydrochloride 50 exceed Active 2016 Medical MG Oral Tablet 200mg/day. (Same Center As: Ultra) pregabalin Notes: Same as No Longer [place] Lyrica Active 2016 Medical Center Lyrica Notes: (Same as: Inactive [place] as Lyrica) 2016 Medical Center Amylases 37342 Notes: (lipase No Longer [place] UNT / 60,000 units, Active 2015 Medical Endopeptidases protease 19,000 C enter 51157 UNT / units, amylase Lipase 6000 UNT 30,000 units Enteric Coated DRC) Same as: Capsule [Creon Creon (Creon 6) 6] oxybutynin Notes: Same as: No Longer [facility] Ditropan) Active 2015 Medical Center DULoxetine 60 mg 60 mg = 1 cap, Active [facility] oral delayed PO, Daily, # 90 2016 Med ical release capsule cap, 0 Refill(s) Center omeprazole 20 mg 20 mg = 1 tab, Active [facility] oral enteric PO, Daily, # 30 2016 Med ical coated tablet tab, 3 Refill(s) C enter simvastatin 10 10 mg = 1 tab, Active [facility] mg oral tablet PO, Bedtime, # 2016 Me dical 30 tab, 0 Center Refill(s) Amylases 65518 1 cap, PO, QID, No Longer [facility] UNT / # 120 cap, 0 Active 2015 Medical Endopeptidases Refill(s) Center 69964 UNT / Lipase 6000 UNT Enteric Coated Capsule [Creon 6] calcium-vitamin 1 tab, PO, TID, Active [facility] D 250 mg-125 0 Refill(s) 2016 Medical units oral Center tablet Vitamin B 12 1000 mcg, IM, Active [place] ONCE, 0 2016 Medical Refill(s) Center finasteride 5 mg 5 mg = 1 tab, Active H [place] oral tablet PO, Daily, # 30 2016 Medi florin tab, 0 Refill(s) Center metoprolol 25 mg = 1 tab, Active [place] as tartrate 25 mg PO, BID, # 60 2016 Med ical oral tablet tab, 0 Refill(s) [address] ter Lidocaine 1 patch, TOP, Active 03 [place] Hydrochloride Daily, 0 2016 Medical 0.05 MG/MG Refill(s) [place] Transdermal Patch insulin detemir 30 unit, SUB-Q, No Longer [place] Daily, 0 Active 2016 Medical Refill(s) [place] pregabalin 150 150 mg = 1 cap, Active M H [place] mg oral capsule PO, TID, # 90 2016 Pr dical cap, 0 Refill(s) [place] Insulin, Aspart, 12 unit, SUB-Q, No Longer 10/09 [place] Human TID-Before Active 2015 Medical Meals, 0 Center Refill(s) oxybutynin 5 mg 5 mg = 1 tab, No Longer [place] oral tablet PO, TID, PRN Active 2015 Medical Other-See Center Comments, # 30 tab, 0 Refill(s) Aspirin 81 MG 81 mg = 1 tab, Active [place] Enteric Coated PO, Daily, # 90 2016 edical Tablet tab, 3 Refill(s) [place] latanoprost 0.05 1 drp, Each No Longer H [place] MG/ML Ophthalmic Affected Eye, Active 2015 edical Solution Bedtime, # 1 Center btl, 1 Refill(s) pregabalin 100 100 mg = 1 cap, Inactive [place] MG Oral Capsule PO, TID, # 90 2016 Pr dical [Lyrica] cap, 0 Refill(s) [place] pantoprazole 40 mg, PO, Active [place] Daily, # 30 tab, 2016 Medical 0 Refill(s) [place] Tamsulosin 0.4 mg = 1 cap, Active [place] hydrochloride PO, Daily, 0 2016 Medic al 0.4 MG Oral Refill(s) [place] Capsule [Flomax] metoprolol BID, 0 Refill(s) Inactive [facility] tartrate 2015 [facility] duloxetine PO, 0 Refill(s) Inactive [place] 2015 [facility] Ibuprofen 0 Refill(s) Inactive [place] 2016 [facility] Ranitidine 0 Refill(s) No Longer [place] Active 2015 [facility] insulin detemir SUB-Q, 0 Inactive [place] as Refill(s) 2015 [facility] Hydralazine Notes: (Same as: No Longer [facility] Apresoline) Push Active 2015 Medical over 5 minutes Center Insulin regular 60 units) No Longer [place] WASTE: F/P - Active 2016 Medical Black; E - Center Municipal Trash Bin Stable for 28 days at room temperature Expires in days from Da te Dextrose 50% 25 gm, 50 mL, No Longer [place] Syringe Route: IVP, Drug Active 2015 Medical Form: INJ, Center Dosing Weight 84.8, kg, PRN, PRN Blood Glucose Results, Start date: 10/10/15 8:25:00, Duration: 30 day, Stop date: 11/09/15 8:24:00 Glucagon 1 mg, Route: IM, Inactive [place] Drug form: 2015 Medical PDR/INJ, PRN, Center Dosing Weight 84.8, kg, PRN Blood Glucose Results, Start date: 10/10/15 8:25:00, Duration: 30 day, Stop date: 11/09/15 8:24:00 Acetaminophen Notes: Max No Longer [place] acetaminophen Active 2015 Medical 4000 mg/day (4 Center gm/day). (Same as: Tylenol Extra Strength) Haldol Notes: (Same as: No Longer [place] Haldol) Active 2015 Medical Center sennosides, ALF Notes: (Same as: No Longer 10/09 [place] Senokot) Active 2015 Medical [place] Docusate Notes: (Same as: No Longer [place] Colace) (Do Not Active 2015 [facility] Crush) Center metoprolol Notes: (Same as: No Longer [place] tartrate Lopressor) Active 2015 Medical [place] Oxycodone Notes: (Same as: No Longer [place] Hydrochloride 5 Roxicodone) Active 2015 Medi florin MG Oral Tablet Center Dextrose 50% 12.5 gm, 25 mL, No Longer [facility] Syringe Route: IVP, Drug Active 2015 Medical Form: INJ, Center Dosing Weight 84.8, kg, PRN, PRN Abnormal Lab Result, Start date: 10/09/15 17:20:00, Duration: 30 day, Stop date: 11/08/15 17:19:00, For FSBG 40 mg/dL - 60 mg/dL Insulin regular 60 units) No Longer [facility] WASTE: F/P - Active 2016 Medical Black; E - Center Municipal Trash Bin Stable for 28 days at room temperature Expires in days from Da te Isolyte S PH 7.4 Notes: (Same as: No Longer 09/22 [facility] 1,000 mL Isolyte S PH Active 2016 Medical 7.4) Center Hydromorphone Notes: Same as: Inactive [facility] Dilaudid [address] [place] [address] Dilaudid 1 mg, Route: Inactive [facility] IVP, ONCE, 2016 Medical Dosing Weight Center 81.818, kg, Priority: STAT, Start date: 10/09/15 10:12:00, Stop date: 10/09/15 10:12:00 Hydromorphone Notes: Same as: Inactive [facility] Dilaudid [address] [place] [address] Center Fentanyl Notes: (Same as: Inactive [facility] [place]) 2016 Medical Preservative Center free. Heparin 30 Route: IVP, PRN, No Longer [facility] unit/kg Bolus 2,200 unit, 2.2 Active 2015 Pr dical (Heparin Dosing mL, Drug form: C enter Weight) INJ, PRN, Heparin Protocol, Start date: 10/09/15 2:39:00 Stop date: 11/08/15 2:38:00, 30 day Heparin 60 Route: IVP, PRN, No Longer [facility] unit/kg Bolus 4,400 unit, 4.4 Active 2015 Pr dical (Heparin Dosing mL, Drug form: C enter Weight) INJ, PRN, Heparin Protocol, Start date: 10/09/15 2:39:00 Stop date: 11/08/15 2:38:00 heparin additive 500 mL, Rate: No Longer [facility] 25,000 unit [12 17.7 ml/hr, Active 2015 Medi florin unit/kg/hr] + Infuse over: Cente r Premix Diluent 28.2 hr, Route: Dextrose 5% 500 IV, Dosing mL Weight 73.77 kg, Total Volume: 500 mL, Start date: 10/09/15 2:39:00, Duration: 30 day, Stop date: 11/08/15 2:38:00 Allergies, Adverse Reactions, Alerts Substance Category Reaction Severity Reaction Status Date Comments S ource type Reported morphine Assertion Drug Active [facility] Immunizations No Data Provided for This Section Results Order Name Results Value Reference Date Interpretation Comments Chelly rce [facility] CHEM PANEL Magnesium Lvl 1.9 1.8 - 2.4 08/18 [facility] CHEM PANEL Calcium Lvl 9.2 8.5 - 10.5 08/18 [facility] CHEM PANEL eGFR 85 08/18 Result Comment: The Medical eGFR is Center calculated using the CKD-EPI formula. In most young, healthy individuals the eGFR will be >90 mL/min/1.73m2 . The eGFR declines with age. An eGFR of 60-89 may be normal in some populations, particularly the elderly, for whom the CKD-EPI formula has not been extensively validated. Use of the eGFR is not recommended in the following populations:< br/>
Lorrie viduals with unstable creatinine concentration s, including patients and those with serious co-morbid conditions.<b r/>
Patie nts with extremes in muscle mass or diet.

The data above are obtained from the National Kidney Disease Education Program (NKDEP) which additionally recommends that when the eGFR is used in patients with extremes of body mass index for purposes of drug dosing, the eGFR should be multiplied by the estimated BMI. CHEM PANEL BUN 14 7 - 22 08/18 [facility] CHEM PANEL Glucose Lvl 166 70 - 99 08/18 [facility] CHEM PANEL Creatinine 0.92 0.50 - 08/18 [facility] Lvl 1.40 [facility] CHEM PANEL Sodium Lvl 140 135 - 145 08/18 2016 [facility] CHEM PANEL Potassium Lvl 4.1 3.5 - 5.1 08/18 [facility] CHEM PANEL Chloride Lvl 102 95 - 109 08/18 a [facility] CHEM PANEL CO2 29 24 - 32 08/18 [facility] CHEM PANEL AGAP 13.1 10.0 - 08/18 20.0 [facility] CHEM PANEL Phosphorus 3.7 2.5 - 4.5 08/18 [facility] HEMATOLOGY Platelet 158 133 - 450 08/18 [facility] HEMATOLOGY MPV 9.1 7.4 - 10.4 08/18 [facility] HEMATOLOGY RDW 17.0 11.5 - 08/18 14.5 [facility] HEMATOLOGY MCHC 32.1 32.0 - 08/18 36.0 [facility] HEMATOLOGY Hct 38.7 42.0 - 08/18 54.0 [facility] HEMATOLOGY RBC 4.60 4.70 - 08/18 [place] 6.10 [facility] HEMATOLOGY WBC 8.0 3.7 - 10.4 08/18 [facility] HEMATOLOGY Hgb 12.4 14.0 - 08/18 18.0 [facility] HEMATOLOGY MCH 27.0 27.0 - 08/18 31.0 [facility] HEMATOLOGY MCV 84.2 80.0 - 08/18 94.0 [facility] HEMATOLOGY Segs 70.2 45.0 - 08/18 75.0 [facility] HEMATOLOGY Eosinophils # 0.3 0.0 - 0.5 08/18 [facility] HEMATOLOGY Monocytes # 0.5 0.0 - 0.8 08/18 [facility] HEMATOLOGY Monocytes 6.5 2.0 - 12.0 08/18 [facility] HEMATOLOGY Basophils 0.3 0.0 - 1.0 08/18 [facility] HEMATOLOGY Segs-Bands # 5.6 1.5 - 8.1 08/18 [facility] HEMATOLOGY Eosinophils 3.4 0.0 - 4.0 08/18 [facility] HEMATOLOGY Lymphocytes # 1.6 1.0 - 5.5 08/18 [facility] HEMATOLOGY Lymphocytes 19.6 20.0 - 08/18 40.0 [facility] CHEM PANEL eGFR 74 08/17 Result Comment: The Medical eGFR is Center calculated using the CKD-EPI formula. In most young, healthy individuals the eGFR will be >90 mL/min/1.73m2 . The eGFR declines with age. An eGFR of 60-89 may be normal in some populations, particularly the elderly, for whom the CKD-EPI formula has not been extensively validated. Use of the eGFR is not recommended in the following populations:< br/>
Lorrie viduals with unstable creatinine concentration s, including patients and those with serious co-morbid conditions.<b r/>
Patie nts with extremes in muscle mass or diet.

The data above are obtained from the National Kidney Disease Education Program (NKDEP) which additionally recommends that when the eGFR is used in patients with extremes of body mass index for purposes of drug dosing, the eGFR should be multiplied by the estimated BMI. CHEM PANEL Creatinine 1.03 0.50 - 08/17 [facility] Lvl 1.40 [facility] CHEM PANEL Sodium Lvl 139 135 - 145 08/[address] CHEM PANEL Potassium Lvl 4.3 3.5 - 5.1 08/17 [place] [facility] CHEM PANEL Chloride Lvl 103 95 - 109 08/17 [facility] s [facility] CHEM PANEL CO2 29 24 - 32 08/[address] CHEM PANEL Calcium Lvl 8.6 8.5 - 10.5 08/17 [facility] CHEM PANEL BUN 17 7 - 22 08/[address] CHEM PANEL Glucose Lvl 226 70 - 99 08/[address] CHEM PANEL AGAP 11.3 10.0 - 08/17 [facility] . [facility] CHEM PANEL Phosphorus 4.2 2.5 - 4.5 08/[address] CHEM PANEL Globulin 3.6 2.7 - 4.2 08/[address] CHEM PANEL AGAP 10.8 10.0 - 08/17 [facility] .0 [facility] CHEM PANEL B/C Ratio 17 6 - 25 08/[address] CHEM PANEL A/G Ratio 0.8 0.7 - 1.6 08/[address] CHEM PANEL eGFR 69 08/17 [facility] Comment: The Medical eGFR is Center calculated using the CKD-EPI formula. In most young, healthy individuals the eGFR will be >90 mL/min/1.73m2 . The eGFR declines with age. An eGFR of 60-89 may be normal in some populations, particularly the elderly, for whom the CKD-EPI formula has not been extensively validated. Use of the eGFR is not recommended in the following populations:< br/>
Lorrie viduals with unstable creatinine concentration s, including patients and those with serious co-morbid conditions.<b r/>
Patie nts with extremes in muscle mass or diet.

The data above are obtained from the National Kidney Disease Education Program (NKDEP) which additionally recommends that when the eGFR is used in patients with extremes of body mass index for purposes of drug dosing, the eGFR should be multiplied by the estimated BMI. CHEM PANEL Creatinine 1.09 0.50 - 08/17 [facility] Lvl 1.40 [facility] CHEM PANEL Sodium Lvl 138 135 - 145 08/[address] CHEM PANEL BUN 19 7 - 22 08/[address] CHEM PANEL Alk Phos 82 39 - 136 08/[address] CHEM PANEL Bili Total 0.4 0.2 - 1.3 08/[address] CHEM PANEL AST 16 0 - 37 08/[address] CHEM PANEL Total Protein 6.5 6.4 - 8.4 08/17 [facility] CHEM PANEL Calcium Lvl 8.6 8.5 - 10.5 08/17 [facility] CHEM PANEL Potassium Lvl 4.8 3.5 - 5.1 08/17 [facility] CHEM PANEL Chloride Lvl 104 95 - 109 08/17 [facility] 2016 [facility] CHEM PANEL CO2 28 24 - 32 08/[address] CHEM PANEL Albumin Lvl 2.9 3.5 - 5.0 08/17 [facility] CHEM PANEL ALT 12 0 - 65 08/[address] CHEM PANEL Glucose Lvl 220 70 - 99 08/[address] CHEM PANEL Magnesium Lvl 1.9 1.8 - 2.4 08/[address] HEMATOLOGY INR 1.18 0.85 - 08/17 [facility] 1.17 [facility] HEMATOLOGY PT 15.3 12.0 - 08/17 14.7 [facility] HEMATOLOGY PTT 66.0 22.9 - 08/17 [place] 35.8 [facility] HEMATOLOGY Platelet 141 133 - 450 08/17 [facility] HEMATOLOGY MPV 8.5 7.4 - 10.4 08/17 [facility] HEMATOLOGY RBC 4.14 4.70 - 08/17 [place] 6.10 [facility] HEMATOLOGY Hct 34.6 42.0 - 08/17 [place] 54.0 [facility] HEMATOLOGY WBC 6.9 3.7 - 10.4 08/17 [facility] HEMATOLOGY MCV 83.7 80.0 - 08/17 [place] 94.0 [facility] HEMATOLOGY RDW 17.4 11.5 - 08/17 14.5 [facility] HEMATOLOGY MCHC 33.0 32.0 - 08/17 [place] 36.0 [facility] HEMATOLOGY Hgb 11.4 14.0 - 08/17 [place] 18.0 [facility] HEMATOLOGY MCH 27.7 27.0 - 08/17 [place] 31.0 [facility] HEMATOLOGY Monocytes # 0.5 0.0 - 0.8 08/17 [facility] HEMATOLOGY Lymphocytes # 2.1 1.0 - 5.5 08/17 [facility] HEMATOLOGY Eosinophils # 0.3 0.0 - 0.5 08/17 [place] [facility] HEMATOLOGY Segs-Bands # 4.0 1.5 - 8.1 08/17 [facility] HEMATOLOGY Monocytes 6.8 2.0 - 12.0 08/17 [facility] HEMATOLOGY Basophils 0.4 0.0 - 1.0 08/17 [facility] HEMATOLOGY Eosinophils 4.3 0.0 - 4.0 08/17 [facility] HEMATOLOGY Lymphocytes 30.0 20.0 - 08/17 [place] 40.0 [facility] HEMATOLOGY Segs 58.5 45.0 - 08/17 [place] 75.0 [facility] PARATHYROID Ca Ion WB 1.11 1.05 - 08/17 [place] PROFILE . [facility] PARATHYROID Ca Norm WB 1.11 1.05 - 08/17 [place] PROFILE 08.18 [facility] CHEM PANEL Phosphorus 4.1 2.5 - 4.5 08/16 [facility] CHEM PANEL Magnesium Lvl 1.8 1.8 - 2.4 08/16 [facility] HEMATOLOGY PTT 63.3 22.9 - 08/16 35. [facility] HEMATOLOGY INR 1.17 0.85 - 08/16 08.10 [facility] HEMATOLOGY PT 15.1 12.0 - 08/16 . [facility] URINE CHEM U Magnesium >10 08/16 Result Comment: [facility] result was 24.4 notified Roshan Looney 08/17/2016 21:27. URINE CHEM U Chloride 143 08/16 [facility] URINE CHEM U Potassium 33.9 08/16 [facility] URINE CHEM U Sodium 115 08/16 [facility] HEMATOLOGY Segs 71.2 45.0 - 08/16 75.0 [facility] HEMATOLOGY Lymphocytes 18.2 20.0 - 08/16 40.0 [facility] HEMATOLOGY Monocytes 6.8 2.0 - 12.0 08/16 [facility] HEMATOLOGY Eosinophils 3.3 0.0 - 4.0 08/16 [facility] HEMATOLOGY Basophils 0.5 0.0 - 1.0 08/16 [facility] HEMATOLOGY Segs-Bands # 6.2 1.5 - 8.1 08/16 [facility] HEMATOLOGY Monocytes # 0.6 0.0 - 0.8 08/16 [facility] HEMATOLOGY Lymphocytes # 1.6 1.0 - 5.5 08/16 [facility] HEMATOLOGY Eosinophils # 0.3 0.0 - 0.5 08/16 [facility] HEMATOLOGY PTT 65.2 22.9 - 08/16 35. [facility] HEMATOLOGY INR 1.19 0.85 - 08/16 08.10 [facility] HEMATOLOGY PT 15.4 12.0 - 08/16 . [facility] HEMATOLOGY MPV 8.9 7.4 - 10.4 08/16 [facility] HEMATOLOGY Platelet 150 133 - 450 08/16 [facility] HEMATOLOGY RDW 17.2 11.5 - 08/16 [place] 14.5 /2016 [facility] HEMATOLOGY MCHC 32.3 32.0 - 08/16 [place] 36.0 /2016 [facility] HEMATOLOGY MCH 26.8 27.0 - 08/16 [place] 31.0 /2016 [facility] HEMATOLOGY Hct 35.9 42.0 - 08/16 [place] 54.0 /2016 [facility] HEMATOLOGY Hgb 11.6 14.0 - 08/16 [place] 18.0 [facility] HEMATOLOGY MCV 83.0 80.0 - 08/16 [place] 94.0 /2016 [facility] HEMATOLOGY RBC 4.32 4.70 - 08/16 [place] 6.10 /2016 [facility] HEMATOLOGY WBC 8.7 3.7 - 10.4 08/16 /2016 [facility] CARDIAC Troponin-I 0.13 0.00 - 08/16 [place] ENZYMES 0.40 [facility] CARDIAC Total CK 39 12 - 191 08/16 [facility] ENZYMES /2016 [facility] CARDIAC Troponin-T 0.026 0.000 - 08/16 [place] ENZYMES 0.100 [facility] CHEM PANEL Lactic Acid 1.5 0.5 - 2.2 08/16 [place] [facility] MYOGLOBIN Myoglobin 54 25 - 72 08/16 [facility] CHEM PANEL Lactic Acid 2.2 0.5 - 2.2 08/16 [place] [facility] BACTERIAL - MRSA by PCR Positive 1 08/16 [place] SEROLOG[place] *ABN* /2016 Comment: Medical (08/16/16 1:06 AM) "Significant C enter Findings called to Kya Krishna on 08/16/2016 at 13:44 by MARIO.Read Back OK." BLOOD BANK Antibody Scrn Negative 08/16 [place] RESULTS (08/16/16 1:06 AM) /2016 [facility] BLOOD BANK ABO/Rh A NEG 08/16 [place] RESULTS /2016 [facility] CARDIAC Troponin-I 0.05 0.00 - 08/16 [place] ENZYMES 0.40 [facility] CARDIAC Total CK 40 12 - 191 08/16 [facility] ENZYMES /2016 [facility] CARDIAC Troponin-T <0.010 0.000 - 08/16 [facility] ENZYMES 0.100 [facility] CHEM PANEL A/G Ratio 1.0 0.7 - 1.6 08/16 [facility] CHEM PANEL Globulin 3.2 2.7 - 4.2 08/16 [facility] CHEM PANEL B/C Ratio 115 6 - 25 08/16 [facility]2016 [facility] CHEM PANEL Total Protein 6.4 6.4 - 8.4 08/16 [place] [facility] CHEM PANEL AST 6 0 - 37 08/16 [facility]2016 [facility] CHEM PANEL Bili Total 0.4 0.2 - 1.3 08/16 [facility] CHEM PANEL Albumin Lvl 3.2 3.5 - 5.0 08/16 [place] [facility] CHEM PANEL Alk Phos 79 39 - 136 08/16 [facility] CHEM PANEL ALT 20 0 - 65 08/16 [facility] LIPIDS Chol 69 <=199 08/16 [facility] mg/dL [facility] LIPIDS Trig 50 <=149 08/16 [facility] mg/dL [facility] LIPIDS HDL 33 >=61 mg/dL 08/16 [facility] LIPIDS LDL 26 <=99 mg/dL 08/16 [facility] (Calculated) [facility] LIPIDS CHD Risk 2.09 4.00 - 08/16 [place] 7.30 [facility] LIPIDS VLDL 10 08/16 [facility] MYOGLOBIN Myoglobin 37 25 - 72 08/16 [facility] PARATHYROID Ca Ion WB 1.33 1.05 - 08/16 [place] PROFILE 1. [facility] PARATHYROID Ca Norm WB 1.25 1.05 - 08/16 [place] PROFILE 1. [facility] SPECIAL Hgb A1C 6.5 <=5.6 % 08/16 [facility] CHEMISTRY [facility] URINE AND UA <=1.0 0.1 - 1.0 08/16 [facility] STOOL Urobilinogen mg/dL [facility] URINE AND UA Turbidity Clear Clear 08/16 [facility] STOOL (08/16/16 1:06 AM) /2016 [facility] URINE AND UA Spec Grav 1.016 <=1.030 08/16 [facility] STOOL [address] [place] [address] URINE AND UA Protein Negative Negative 08/16 [facility] STOOL mg/dL mg/dL [facility] URINE AND UA pH 5.5 5.0 - 8.0 08/16 [facility] URINE AND UA Color Yellow Yellow 08/16 [facility] STOOL *NA* /2016 [facility] (08/16/16 1:06 AM) [place] URINE AND UA CaOx Kelli Occasional None Seen 08/16 [place] STOOL /HPF /HPF [facility] URINE AND UA WBC 2 0 - 5 08/16 [facility] URINE AND UA Mucus Few /LPF None Seen 08/16 [facility] STOOL /LPF /2016 [facility] URINE AND UA Leuk Est Negative Negative 08/16 [facility] (08/16/16 1:06 AM) [facility] URINE AND UA RBC 1 0 - 2 08/16 [facility] URINE AND UA Blood Negative Negative 08/16 [facility] (08/16/16 1:06 AM) [facility] URINE AND UA Glucose 50 mg/dL Negative 08/16 [facility] mg/dL [facility] URINE AND UA Bili Negative Negative 08/16 [facility] *NA* /2016 [facility] (08/16/16 1:06 AM) [place] URINE AND UA Ketones Negative Negative 08/16 [facility] mg/dL mg/dL [facility] URINE AND UA Nitrite Negative Negative 08/16 [facility] (08/16/16 1:06 AM[facility] URINE AND UA Sq Epi None Seen 08/16 [facility] URINE AND UA Hyal Cast 4 0 - 2 08/16 [facility] HEMATOLOGY PT 14.3 12.0 - 10/11 [facility] 14. [facility] HEMATOLOGY INR 1.08 0.85 - 10/11 [place] . [facility] HEMATOLOGY PTT 66.6 22.9 - 10/11 [facility] 35.8 [facility] HEMATOLOGY INR 1.07 0.85 - 10/11 [place] 1. [facility] HEMATOLOGY PT 14.2 12.0 - 10/11 [place] 14. [facility] HEMATOLOGY PTT 73.4 22.9 - 10/11 [place] 35.8 [facility] HEMATOLOGY PTT 49.7 22.9 - 10/11 [place] 35. [facility] CHEM PANEL eGFR 79 10/10 Result Comment: The Medical eGFR is Center calculated using the CKD-EPI formula. In most young, healthy individuals the eGFR will be >90 mL/min/1.73m2 . The eGFR declines with age. An eGFR of 60-89 may be normal in some populations, particularly the elderly, for whom the CKD-EPI formula has not been extensively validated. Use of the eGFR is not recommended in the following populations:< br/>
Lorrie viduals with unstable creatinine concentration s, including patients and those with serious co-morbid conditions.<b r/>
Patie nts with extremes in muscle mass or diet.

The data above are obtained from the National Kidney Disease Education Program (NKDEP) which additionally recommends that when the eGFR is used in patients with extremes of body mass index for purposes of drug dosing, the eGFR should be multiplied by the estimated BMI. CHEM PANEL Glucose Lvl 167 70 - 99 10/10 [facility] CHEM PANEL Calcium Lvl 8.3 8.5 - 10.5 10/10 [facility] CHEM PANEL CO2 24 24 - 32 10/10 [facility] CHEM PANEL BUN 12 7 - 22 10/10 [facility] CHEM PANEL Creatinine 0.98 0.50 - 10/10 [facility] Lvl 1.40 [facility] CHEM PANEL Chloride Lvl 103 95 - 109 10/10 [facility] CHEM PANEL Sodium Lvl 138 135 - 145 10/10 [facility] CHEM PANEL Potassium Lvl 4.2 3.5 - 5.1 10/10 [place] [facility] CHEM PANEL AGAP 15.2 10.0 - 10/10 [place] 20.0 [facility] HEMATOLOGY Hgb 9.9 14.0 - 10/10 [place] 18.0 [facility] HEMATOLOGY RBC 3.40 4.70 - 10/10 [place] 6.10 [facility] HEMATOLOGY WBC 5.0 3.7 - 10.4 10/10 [facility] HEMATOLOGY MPV 7.9 7.4 - 10.4 10/10 [facility] HEMATOLOGY Platelet 218 133 - 450 10/10 [facility] HEMATOLOGY MCHC 33.3 32.0 - 10/10 [place] 36.0 [facility] HEMATOLOGY MCH 29.0 27.0 - 10/10 [place] 31.0 [facility] HEMATOLOGY MCV 87.0 80.0 - 10/10 94.0 [facility] HEMATOLOGY Hct 29.6 42.0 - 10/10 54.0 [facility] HEMATOLOGY RDW 14.8 11.5 - 10/10 14.5 [facility] HEMATOLOGY Eosinophils # 0.1 0.0 - 0.5 10/10 [facility] HEMATOLOGY Eosinophils 1.4 0.0 - 4.0 10/10 [facility] HEMATOLOGY Monocytes 7.6 2.0 - 12.0 10/10 [facility] HEMATOLOGY Segs 73.6 45.0 - 10/10 [place] 75.0 [facility] HEMATOLOGY Lymphocytes 16.7 20.0 - 10/10 [place] 40.0 [facility] HEMATOLOGY Segs-Bands # 4.0 1.5 - 8.1 10/10 [facility] HEMATOLOGY Monocytes # 0.4 0.0 - 0.8 10/10 [facility] HEMATOLOGY Basophils 0.7 0.0 - 1.0 10/10 [facility] HEMATOLOGY Lymphocytes # 0.9 1.0 - 5.5 10/10 [facility] HEMATOLOGY RDW 14.6 11.5 - 10/10 14. [facility] HEMATOLOGY Platelet 206 133 - 450 10/10 [facility] HEMATOLOGY MPV 8.3 7.4 - 10.4 10/10 [facility] HEMATOLOGY MCV 87.2 80.0 - 10/10 94.0 [facility] HEMATOLOGY MCHC 33.4 32.0 - 10/10 [place] 36.0 [facility] HEMATOLOGY MCH 29.1 27.0 - 10/10 31.0 [facility] HEMATOLOGY Hct 29.6 42.0 - 10/10 54.0 [facility] HEMATOLOGY Hgb 9.9 14.0 - 10/10 [place] 18.0 [facility] HEMATOLOGY WBC 5.4 3.7 - 10.4 10/10 [facility] HEMATOLOGY RBC 3.39 4.70 - 10/10 [place] 6.10 [facility] CHEM PANEL Phosphorus 3.3 2.5 - 4.5 10/09 [facility] CHEM PANEL Magnesium Lvl 1.8 1.8 - 2.4 10/09 [facility] ELECTROLYTE AGAP 12.7 10.0 - 10/09 [facility] S 20.0 [facility] ELECTROLYTE Calcium Lvl 8.2 8.5 - 10.5 10/09 [facility] ELECTROLYTE Sodium Lvl 140 135 - 145 10/09 [facility] s [facility] ELECTROLYTE CO2 27 24 - 32 10/09 [facility] ELECTROLYTE Potassium Lvl 4.7 3.5 - 5.1 10/09 [place] [facility] ELECTROLYTE Chloride Lvl 105 95 - 109 10/09 [facility] ELECTROLYTE eGFR 83 10/09 [facility] Comment: The Medical eGFR is Center calculated using the CKD-EPI formula. In most young, healthy individuals the eGFR will be >90 mL/min/1.73m2 . The eGFR declines with age. An eGFR of 60-89 may be normal in some populations, particularly the elderly, for whom the CKD-EPI formula has not been extensively validated. Use of the eGFR is not recommended in the following populations:< br/>
Lorrie viduals with unstable creatinine concentration s, including patients and those with serious co-morbid conditions.<b r/>
Patie nts with extremes in muscle mass or diet.

The data above are obtained from the National Kidney Disease Education Program (NKDEP) which additionally recommends that when the eGFR is used in patients with extremes of body mass index for purposes of drug dosing, the eGFR should be multiplied by the estimated BMI. ELECTROLYTE Creatinine 0.94 0.50 - 10/09 [facility] S Lvl 1.40 /2015 [facility] ELECTROLYTE BUN 12 7 - 22 10/09 [facility] ELECTROLYTE Glucose Lvl 178 70 - 99 10/09 [facility] /2015 [facility] HEMATOLOGY Basophils # 0.1 0.0 - 0.2 10/09 [facility] HEMATOLOGY Monocytes # 0.2 0.0 - 0.8 10/09 [facility] HEMATOLOGY Lymphocytes 19.0 20.0 - 03 [facility] 40.0 [facility] HEMATOLOGY Monocytes 5.6 2.0 - 12.0 10/09 [facility] HEMATOLOGY Segs 72.1 45.0 - 10/09 [place] 75.0 [facility] HEMATOLOGY Eosinophils # 0.1 0.0 - 0.5 10/09 [facility] HEMATOLOGY Basophils 1.7 0.0 - 1.0 10/09 [facility] HEMATOLOGY Eosinophils 1.6 0.0 - 4.0 10/09 a s /2015 [facility] HEMATOLOGY Lymphocytes # 0.8 1.0 - 5.5 10/09 [facility] HEMATOLOGY Segs-Bands # 3.0 1.5 - 8.1 10/09 [facility] HEMATOLOGY MCV 87.7 80.0 - 10/09 [place] 94.0 [facility] HEMATOLOGY MCH 29.2 27.0 - 10/09 [place] 31.0 [facility] HEMATOLOGY RDW 15.1 11.5 - 10/09 [place] 14.5 [facility] HEMATOLOGY Platelet 188 133 - 450 10/09 [facility] HEMATOLOGY MCHC 33.3 32.0 - 10/09 [place] 36.0 [facility] HEMATOLOGY WBC 4.2 3.7 - 10.4 10/09 [facility] HEMATOLOGY RBC 3.35 4.70 - 10/09 [place] 6.10 [facility] HEMATOLOGY Hgb 9.8 14.0 - 10/09 [place] 18.0 [facility] HEMATOLOGY Hct 29.4 42.0 - 10/09 [place] 54.0 [facility] HEMATOLOGY MPV 8.3 7.4 - 10.4 10/09 [facility] CHEM PANEL eGFR 68 10/08 [facility] Comment: The Medical eGFR is Center calculated using the CKD-EPI formula. In most young, healthy individuals the eGFR will be >90 mL/min/1.73m2 . The eGFR declines with age. An eGFR of 60-89 may be normal in some populations, particularly the elderly, for whom the CKD-EPI formula has not been extensively validated. Use of the eGFR is not recommended in the following populations:< br/>
Lorrie viduals with unstable creatinine concentration s, including patients and those with serious co-morbid conditions.<b r/>
Patie nts with extremes in muscle mass or diet.

The data above are obtained from the National Kidney Disease Education Program (NKDEP) which additionally recommends that when the eGFR is used in patients with extremes of body mass index for purposes of drug dosing, the eGFR should be multiplied by the estimated BMI. CHEM PANEL BUN 12 7 - 22 10/08 [facility] CHEM PANEL Sodium Lvl 140 135 - 145 10/08 [facility] CHEM PANEL Creatinine 1.11 0.50 - 10/08 [place] Lvl 1.40 [facility] CHEM PANEL Calcium Lvl 8.2 8.5 - 10.5 10/08 [facility] CHEM PANEL CO2 26 24 - 32 10/08 [facility] CHEM PANEL Chloride Lvl 104 95 - 109 10/08 [facility] CHEM PANEL Potassium Lvl 4.6 3.5 - 5.1 10/08 [facility] CHEM PANEL Glucose Lvl 224 70 - 99 10/08 [facility] CHEM PANEL AGAP 14.6 10.0 - 10/08 [place] 20.0 [facility] HEMATOLOGY Eosinophils # 0.3 0.0 - 0.5 10/08 [facility] HEMATOLOGY Segs-Bands # 2.9 1.5 - 8.1 10/08 [facility] HEMATOLOGY Lymphocytes # 1.4 1.0 - 5.5 10/08 [facility] HEMATOLOGY Eosinophils 5.5 0.0 - 4.0 10/08 [facility] HEMATOLOGY Lymphocytes 27.4 20.0 - 10/08 [place] 40.0 [facility] HEMATOLOGY Monocytes 8.3 2.0 - 12.0 10/08 [facility] HEMATOLOGY Segs 57.9 45.0 - 10/08 [place] 75.0 [facility] HEMATOLOGY Basophils 0.9 0.0 - 1.0 10/08 [facility] HEMATOLOGY Monocytes # 0.4 0.0 - 0.8 10/08 [facility] HEMATOLOGY INR 1.11 0.85 - 10/08 [place] 1.17 [facility] HEMATOLOGY PT 14.6 12.0 - 10/08 [place] 14.7 [facility] HEMATOLOGY [place] 2.9 10/08 [facility] HEMATOLOGY ACT (TEG) 409 86 - 118 10/08 [facility] HEMATOLOGY R-time 3.8 0.4 - 0.7 10/08 [facility] HEMATOLOGY Rapid TEG Citrated Whole Blood 10/08 [facility] Sample Type (10/09/15 5:21 PM) /2015 [facility] HEMATOLOGY Estimated % 0.4 0.0 - 7.5 10/08 [place] [facility] HEMATOLOGY G-value 10.6 5.0 - 11.6 10/08 [facility] HEMATOLOGY K-time 2.1 0.6 - 2.3 10/08 [facility] HEMATOLOGY Max Amp 68 52 - 71 10/08 [facility] HEMATOLOGY Angle 63 64 - 80 10/08 [facility] IMMUNOLOGY [place]-Hep C Negative Negative 10/08 [facility] as Ab *NA* /2015 [facility] (10/09/15 9:26 AM) [place] CHEM PANEL Lactic Acid 1.4 0.5 - 2.2 10/08 [place] L[place] [facility] HEMATOLOGY Estimated % 0.0 0.0 - 7.5 10/08 [facility] s Lysis [facility] HEMATOLOGY G-value 9.0 5.0 - 11.6 10/08 [facility] HEMATOLOGY K-time 1.6 0.6 - 2.3 10/08 [facility] HEMATOLOGY R-time 1.2 0.4 - 0.7 10/08 [facility] HEMATOLOGY [place] 0.8 10/08 [facility] HEMATOLOGY Max Amp 64 52 - 71 10/08 [facility] HEMATOLOGY Angle 68 64 - 80 10/08 [facility] HEMATOLOGY ACT (TEG) 167 86 - 118 10/08 Result Comment: Medical RECHECKED. [place] HEMATOLOGY Rapid TEG Citrated Whole Blood 10/08 [facility] Sample Type (10/09/15 2:08 AM) /2015 [facility] Pathology Reports No Data Provided for This Section Diagnostic Reports Report Value Date Source Chest 1view DX EXAM: XR CHEST 1 VIEW 08/17/2016 [facility] edical DATE: 08/17/2016 6:46 PM DIRECTOR TELECOMMUNICATIONS Cent er INDICATION: Abnormal chest sounds. Findings: Comparison is made to prior radiograph from 07/26 at 0017 hours. Atrial appendage clip is aga in seen with a prominent cardiac silhouette which remains stable. The right lung appears clear with sharp costophrenic recess. There is a left retrocardiac opacity with appea javed of slight improvement, where medial part of the diaphragm is visualized. The left retrocardiac opacity may represent either singly or in combination subsegmental atelectasis, pneumonia or pleural effusion. IMPRESSION: Right lung clear . Left retrocardiac opacity with slight improvement. Chest 1view DX EXAM: XR CHEST 1 VIEW 08/17/2016 [facility] edical DATE: 08/17/2016 3:00 AM DIRECTOR TELECOMMUNICATIONS Cent er INDICATION: Abnormal chest sounds COMPARISON: Previous Day FINDINGS: ET tube and NG tube been rem coleman. Atrial appendage clip and aortic atherosclerotic changes remain. The cardiac silhouette is prominent, but stable. While evaluation is limited given semi-erect positioni ng, no distinct pneumothorax is identified. Minimal opacities are present the lung bases, most notably in the left retrocardiac region. IMPRESSION: 1. Removal of ET tube and NG tube. 2. Probable basilar atelectasis, asymmetric to the left. 3. Stable mild cardiomegaly. Abdomen 1 v for EXAM: XR ABDOMEN 1 VIEW 08/16/2016 [facility] Placement DX DATE: 08/16/2016 2:18 AM DIRECTOR TELECOMMUNICATIONS Cent er INDICATION: Tube Placement OG ADDITIONAL INFORMATION: None. COMPARISON: None. TECHNIQUE: AP view of the upper abdomen. FINDINGS: NG tube with tip slightly be low the GE junction, and side-port at the GE junction. Recommend advancing. Multiple surgical clips noted left upper quadrant. Left basilar subsegmental atelectasis and bilat eral CPA blunting is noted. Correlate with chest x-ray findings. IMPRESSION: 1. Recommend advancing NG tube, now with the ti p slightly below GE junction. Chest 1view DX 08/16/2016 [facility] EXAM: XR CHEST 1 VIEW Center DATE: 08/16/2016 12:55 AM DIRECTOR TELECOMMUNICATIONS INDICATION: Abnormal chest sounds COMPARISON: None. TECHNIQUE: AP chest FINDINGS: Lines, tubes and hardware: E ndotracheal tube with tip terminates approximately 3 cm above the lopez. NG tube with sidehole seen below the GE junction. Lungs and pleura: Diminished lung volumes bilaterally again noted. Prominent lung reticulations suggestive of pulmonary edema. Small bilateral pleural effusions with bibasilar atelectatic changes. Scattered atelectatic changes bilaterally. Heart and mediastinum: Cardi omediastinal silhouette is enlarged. Posterior dimension clip is noted. Aortic atherosclerotic disease. Bones: No acute bony abnormality is identified. IMPRESSION: 1. Lines and tubes as described above. 2. Diminished lung volumes bilaterally with scattered few atelectatic changes. 3. Prominent lung reticulations suggestive of p ulmonary edema. 4. Small left pleural effusion with left basila r atelectatic changes. 5. Mild cardiomegaly. Left atrial appendage cli p noted. Ext Upper Venous EXAM: EXAM: US LEFT UPPER EXTREMITY VENOUS DOPP LER 10/11/2015 [facility] Doppler Unil US DATE: 10/11/2015 7:12 AM CDT Ce nter INDICATION: Pain, Limb ADDITIONAL INFORMATION: None. COMPARISON: None. TECHNIQUE: Multiplanar kristi chidi, color Doppler and spectral Doppler ultrasound images of the left upper extremity veins. DISCUSSION: Left Upper Extremity Veins: Internal Jugular: Patent. Subclavian: Patent. Axillary: Patent. Brachial: Patent. Basilic: Patent. Cephalic: Patent. IMPRESSION: 1. Normal. No deep venous thrombosis (DVT). Ext Upper Venous EXAM: US LEFT UPPER EXTREMITY VENOUS DOPPLER [facility] Doppler Unil US DATE: 10/10/2015 at 1642 hours. Center INDICATION: Pain, Limb ADDITIONAL INFORMATION: None. COMPARISON: None. TECHNIQUE: Multiplanar kristi chidi, color Doppler and spectral Doppler ultrasound of the left upper extremity veins. FINDINGS: Left Upper Extremity Veins: Internal Jugular: Patent. Patient refused to complete exam. IMPRESSION: Extremely limited exam due t o patient refusal to cooperate. Only the left IJ was visualized and appeared to be without thrombus. Elbow 3 views DX EXAM: XR LEFT ELBOW 3 VIEWS 10/09/2015 [facility] DATE: 10/09/2015 at 1917 hours Ce nter INDICATION: Pain and swelling COMPARISON: Left humerus radiographs of 10/09/19 16 TECHNIQUE: AP, lateral and oblique radiographs of the left elbow FINDINGS: No acute fract ure or malalignment is identified. Osteopenia is present. The known humeral neck fracture is not included on these images. A small elbow joint effusion is present. Diffuse subcutaneous edema is present about the elbow, without subcutaneous emphysema or radiopaque foreign body. IMPRESSION: Soft tissue swe lling and small elbow joint effusion, without acute bony abnormality of the elbow. Forearm 2 views DX EXAM: XR LEFT FOREARM 2 VIEWS 10/09/2015 [facility] DATE: 10/09/2015 at 1919 hours Ce nter INDICATION: Pain and swelling COMPARISON: Left elbow radiographs 10/09/2015 at 1917 hours TECHNIQUE: AP and lateral radiographs of the [facility] forearm FINDINGS: No acute fract ure or malalignment is identified. Generalized subcutaneous edema is present without subcutaneous emphysema or radiopaque foreign body. IMPRESSION: Subcutaneous edema without acute ash[place] abnormality identified. Humerus 2 views DX EXAM: XR LEFT HUMERUS 2 VIEWS 10/09/2015 [facility] DATE: 10/09/2015 at 1720 hours Ce nter INDICATION: Fracture COMPARISON: 10/08/[address] TECHNIQUE: AP and lateral radiographs of the [facility] humerus FINDINGS: The comminuted lef t humeral neck fracture, with extension to the greater tuberosity, is not significantly changed in appearance in the interim. The distal humerus is intac t. An old, grade 3 left acromioclavicular separation is partially visualized. Surrounding soft tissue swelling is present. IMPRESSION: Left humeral sheikh rgical neck fracture, with extension to the greater tuberosity, not significantly changed. Distal humerus intact. HVI VAS Arterial INDICATION: Decreased left upper extremi ty following fracture. 10/09/2015 [facility] Upper or Lower single FINDINGS: Center l 1. The left upper extremity wrist brachial index is 0.95. 2. Normal waveforms are seen within all 5 digits of the left hand. COMMENT: No prior studies are availab for comparison. Left wrist brachial pressures with velocity waveforms were obtained. Digital plethysmography is also performed. On the left, triphasic wavef orms are noted in the brachial, radial, and ulnar arteries upon direct Doppler interrogation. Peak systolic pressures within the radial and ulnar arteries measure 145 and 140 mmHg, respectively. The [facility] brachial index is 0.95. Segmental pressure cuffs placed on the bicep and proximal forearm demonstrate appreciable amplitude waveforms in each location. Digital plethysmogr aphy of the digits of the [facility] hand demonstrate appreciable amplitude waveforms in all 5 digits. Consultation Notes No Data Provided for This Section Discharge Summaries No Data Provided for This Section History and Physicals No Data Provided for This Section Vital Signs Vital Sign Value Date Comments Source Respitory Rate 20 08/18/2016 [facility] Center Systolic (mm Hg) 107 08/18/2016 [facility] dical Center Diastolic (mm Hg) 65 [facility] [place] Systolic (mm Hg) 93 08/18/2016 [facility] dical Center Diastolic (mm Hg) 55 08/18/2016 [facility] Center Respitory Rate 19 08/18/2016 [facility] Center Systolic (mm Hg) 109 08/18/2016 [facility] dical Center Diastolic (mm Hg) 55 08/18/2016 [facility] Respitory Rate 18 08/18/2016 [facility] Temperature Oral (F) 98.3 F 08/18/2016 [facility] Temperature Oral (F) 97.9 F 08/18/2016 [facility] Temperature Oral (F) 96.9 F 08/18/2016 [facility] Height 172.72 cm 08/16/2016 [facility] Height 172.72 cm 08/16/2016 [facility] Height 172.72 cm 08/16/2016 [facility] Weight 82 08/16/2016 [facility] [place] BMI Calculated 27.49 08/16/2016 [facility] Heart Rate 65 10/14/2015 [facility] Respitory Rate 18 10/14/2015 [facility] Temperature Oral (F) 97.8 F 10/14/2015 [facility] Systolic (mm Hg) 112 10/14/2015 [facility] dical Center Diastolic (mm Hg) 73 10/14/2015 [facility] edical Center Respitory Rate 18 10/14/2015 [facility] Center Systolic (mm Hg) 110 10/14/2015 [facility] dical Center Diastolic (mm Hg) 69 10/14/2015 [facility] Temperature Oral (F) 97.8 F 10/14/2015 [facility] Heart Rate 59 10/14/2015 [facility] Respitory Rate 18 10/14/2015 [facility] florin Center Systolic (mm Hg) 117 10/14/2015 [facility] dical Center Diastolic (mm Hg) 62 10/14/2015 [facility] Temperature Oral (F) 97.7 F 10/14/2015 [facility] Heart Rate 58 10/14/2015 [facility] BMI Calculated 28.43 10/09/2015 [facility] Weight 84.8 10/09/2015 [facility] Height 172.72 cm 10/09/2015 [facility] Weight 81.818 10/09/2015 [facility] Height 172.72 cm 10/09/2015 [facility] BMI Calculated 27.43 10/09/2015 [facility] Encounters Location Location Encounter Encounter Reason Attending ADM DC Stat us Source Details Type Number For Provider Date Date Visit [facility] [id number] Pin Mccann 10/07 10/13 [facility]2015 [facility] [id number] [place] 08/16 08/18 [facility] [place] /2016 [facility] Procedures Procedure Code Date Perfomer Comments Source Pancreas [id number] Part of [facility] excision<sup>1</ pancreas was Medica l sup> removed due to Center excess ETOH. Assessment and Plan Assessment and Plan Date Source Extracted from:Title: Hospitalist Progress Note 10/14/2015 [facility] Author: Leland Esteves MD Date: 10/13/15 Assessment/Plan 1.Acute closed Left hum eral surgical neck fracture, with extension to the greater tuberosity, non-operative NWB PT/OTfollowing. PT/OT ordered F/u with Dr. Lea in clinic in 2 week s. Call [phone] to schedule appointment. [4] 2.Acute encephalopathy 2/2 medications improved, avoid sed ating meds 3.Acute pain due to trauma tramadol prn and scheduled tyle nol 4.History of prescription drug abuse avoid narcs 6.Pancreatic insufficiency creon 7.Diabetes mellitus 2/2 pancreas resect ion titrating insulin. increasing today. will follow 8.History of cerebrovascular accident (CVA) with L-sided we akness asa/statin 9.HLD (hyperlipidemia) statin BPH (benign prostatic hypertrophy) home meds Orders: [id number] Home Health Order -Detailed Prophylaxis enox Disposition home w/ family - tomorrow FULL CODE [facility]UT IM hospitalist team is primary. Please page [phone] with any questions. [5] Extracted from:Title: Vascular Surgery Consult Note Author: Hebert Mehta MD Date: 10/09/15 Impression and Plan 70 year old man with history of left hum erus fracture and dislocation with arm pain and swelling 1. no acute ischemia, patient has kristine l vascular exam to left upper extremity with intact pulses, outside hospital ultrasound and CT showed no obvious arterial injuries or occlusions, would recommend HVI arterial and venous dopplers to full y evaluate the arterial and venouls system in the left upper extremity. If normal patient can have pain control and does not require intervention, if abnormal wi ll evaluate for possible arteriogram or venogram, however neither is urgent at this time as the arm has good arterial inflow and has no signs of ischemia. Extracted from:Title: Trauma Author: Michelle Mckinley MD Date: 10/09/15 Date of Admission/Consultation: 10.09.2015 Chief Complaint: OSH referral for vascul ar injury associated with left humeral fracture Physician Requesting Consult: Dr Maher Trauma Attending Present at Arrival: Dr Araujo History of Present Illness: Patient is a 70yM who arrived as a OSH r eferral for vascular compromise associated with a left humeral fracture sustained on Tuesday. The patient has significant paast medical history and fell on Tuesday sustaining left humeral fracture. This was caused by foot drop that he has secondary to CVA. He did not hit his head nor did he experience any LOC during this fall. Past Medical History: DM CVA Previous ?gastrostomy tube Past Surgical History: Ventral hernia - repair. Laparotomy incision Home Medications: see MAR Allergies: Morphine Social History: Review of Systems: Constitutional: denies fever, chills Eyes: denies visual changes Ears/Nose/Throat: denies nasal drainage, changes in hearing, sore throat CV: denies chest pain, palpitations Resp: denies SOB, cough GI: denies abdominal pain, nausea, vomiting : denies dysuria, changes in urination MSK: denies myalgias, arthralgias Skin: denies rash, burn Neuro: reduced sensation in his LLE secondary to his previou s CVA Physical Examination: ED VS: Vitals Tmp(F) Tmp(C) Ttype B P MAP Pulse RR SpO2 FIO2 ETCO2 10/08 01:55 ---- ---- ---- 1 51/93 --- 77 20 96 --- --- 10/08 01:32 97.6 36.44 oral 145/87 --- 72 18 96 --- --- 24 Hr Tmax: 97.6F (36.44c) at 10/08 01:3 2 24 Hr Tmin: 97.6F (36.44c) at 10/08 01:32 36 Hr Tmax: 97.6F (36.44c) at 10/08 01:3 2 36 Hr Tmin: 97.6F (36.44c) at 10/08 01:32 Neuro: GCS 15, AOx3, verbal Head: NCAT, no haematoma or laceration Eyes: pupils 3mm and equally reactive TMs: clear, no drainage Nose/throat: clear, moist and patent Neck: trachea midline, nontender Chest: Symmetric, no crepitus, CTAB Abdomen: Soft, NTND, no rebound or guarding, no scars, significant hepatomegaly Pelvis: Stable, nontender Genital: normal external genitalia Back: nontender, no deformities Extremities: no deformity, FROM, nontender. Vascular: 2+ pulses femoral, no DP or PT pulses in either foot. He has a easily palpable radial pulse in left arm with biphasic radial and ulnar signals on Doppler examination. Cap refil of left hand is 4 sec. Labs: Temp Brian 37.0 pH Brian 7.26 L pCO2 Brian 59 H pO2 Brian 21 HCO3 Brian 26 BE Brian -2 O2 Sat Brian 25.8 L Glucose Lvl 238 H BUN 17 Creatinine Lvl 1.25 Sodium Lvl 139 Potassium Lvl 4.8 Chloride Lvl 107 CO2 24 AGAP 12.8 Calcium Lvl 8.2 L eGFR 59 Lactic Acid Lvl 1.4 WBC 7.4 RBC 3.48 L Hgb 10.1 L Hct 31.1 L MCV 89.3 MCH 28.9 MCHC 32.4 RDW 15.6 H Platelet 191 MPV 8.8 Segs 68.9 Monocytes 6.9 Lymphocytes 18.5 L Eosinophils 5.2 H Basophils 0.5 Segs-Bands # 5.1 Lymphocytes # 1.4 Monocytes # 0.5 Eosinophils # 0.4 PT 14.7 INR 1.12 PTT See Note 10/08 0208 Rapid TEG Sample Type Citrated Whole Blood ACT (TEG) 167 H [place] 0.8 R-time 1.2 H K-time 1.6 Angle 68 Max Amp 64 G-value 9.0 Estimated % Lysis 0.0 FAST: not performed Radiology: XR left humerus and CT from OSH: no reports yet No obvious arterial injuries or occlusions Priximal humeral fracture Assessment and Plan: Patient is a 70yM who arrived as a OSH r eferral for vascular compromise associated with a left humeral fracture sustained on Tuesday. The patient has significant paast medical history and fell on Tuesday sustaining left humeral fracture. This was caused by foot drop that he has secondary to CVA. He did not hit his head nor did he experience any LOC during this fall. Upon arrival, patient had a GCS of 15, w ith SBP of 145, and HR of 77. Primary survey intact. Secondary survey revealed a swollen bruised left upper arm. The compartments of the left arm however were no t tense. There was a palpable radial pul se on the right and the radial and ulnar arteries on the left had biphasic flow. There is evidence of chronic arterial disease in both legs and evidence of prior left sided CVA.. Labs revealed a Hgb of 10.1, lactic acid of 1.4, base deficit of -2, ACT of 167, mA of 64, and lysis of 0%. Imaging reveals left humeral fracture, CT images do not indicate any gross arterial injury but formal report is awaited. Injuries and plan as follows: Injuries: Consults/Plans: 1. Suspected LUE arterial injury at OSH, although 1. CV Surgery review, formal report of outside images, continue IV left arm (with humeral fracture) has goo d radial pulse now heparin and monitor PTT Trauma Surgery Faculty Addendum I have seen and evaluated the patient/fi lms with [place] and agree with the assessment and plan. Assessment and Plan: 70M transferred from outside facility [facility] concern for vascular injury. Informed by physician no palpable pulses with weak US signal detected and thrombosis of subclavian and axillary arteries on CT sca n. Started on heparin drip and transfer red. Arrived with strong left radial and ulnar pulse. Review of CT scan reveals no obvious vascular injury. CV surgery consulted for formal vascular study in AM. Admit to trauma service with Ortho consult. Plan of Care No Data Provided for This Section Social History Social History Date Source Social History TypeResponse 08/17/2016 [facility] Substance Abuse Use: None. Sexual Sexually active: No. Exercise Exercise type: Walking.1 Employment/School Work/School description: - [employer]. Alcohol Past, Type Liquor. Frequency: Daily. Household alcohol con cerns: No.2 Smoking Status Former smoker; Type: Cigarettes; Started at age: 20.0; Stopped at age: 51; Previous treatment: None; Concerns about tobacco use in household: Yes; Exposure to Tobacco Smoke None; Lives with someone who smokes; Other Tobacco Frequency smo kes heavily 2 packs a day and brother that lives with him also smokes 1.5 packs a day.; Cigarette Smoking Last 365 Days No; Reg Smoking Cessation Counseling No 1light walking around his property.2Use to be a heavy drinker until he had a surgery for his pancreas due to ETOH abuse. Family History No Data Provided for This Section Advance Directives No Data Provided for This Section Functional Status No Data Provided for This Section
--- OUTSIDE RECORDS SUMMARY | 2020-05-16 21:46 | XMS REPORT | Continuity of Care Document ---
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 [facility] DYSRHYTHMI Diagnosis Active 2016-08-24 Memoria 08-16 21:58:00 l 00:00: [place] DYSRHYTHMI 00 Active 7 [facility] GIOVANNA Diagnosis Active 2016-08-16 Memoria BILLING 08-16 00:40:00 l 00:00: [place] GIOVANNA 00 BILLING Active 08/16/2016 [facility] LEFT Diagnosis Active 2015-10-09 Mem oria SUBAXILLAR -16 03:39:00 l Y ARTERY LEFT 00:00: [place] AND SUBAXILLAR 00 BRACHIAL Y ARTERY ART AND BRACHIAL ART Active 10/08/2015 [facility] ARM FX Diagnosis Active 2015-10-21 Mem oria W/ARTERIAL 3-16 22:01:00 l BLOOD IN ARM FX 00:00: Leoncio n SUBCLAVIAN W/ARTERIAL 00 /BR BLOOD IN SUBCLAVIAN /BR Active 10/08/2015 [facility] Cerebrovas Problem Resolve 2016-08-21 Memoria cular d 03:50:59 l accident Joe (disorder) Cerebrovas cular accident (disorder) Resolved Problem 08/21/2016 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 [facility] Atrial Problem Active 2016-08-21 Memor ia fibrillati 03:50:59 l on Atrial Joe (disorder) fibrillati on (disorder) Active Problem 08/21/2016 [facility] Diabetes Problem Active 2016-08-21 Mem oria mellitus 03:50:59 l (disorder) Diabetes [place] mellitus (disorder) Active Problem 08/21/2016 On insulin [facility] DYSTHYMIC Diagnosis Active 2016-08-24 Memoria DISORDER 21:58:00 l [place] DYSTHYMIC DISORDER Active [facility] UNSP Diagnosis Active 2015-10-21 Mem oria PHYSEAL 22:01:00 l FRACTURE UNSP Joe OF LOWER PHYSEAL END OF UL FRACTURE OF LOWER END OF UL Active [facility] Allergies, Adverse Reactions, Alerts Allergy Allergy Status Severity Reaction(s) Onset Inactive Treating Comm ents Source Name Type Date Date Clinician morphine morphine Active Refugio Diaz Social History Social Habit Start Date Stop Date Quantity Comments Source Social History 2016-08-17 2016-08-17 Maricarmen simpson 01:47:41 01:47:41 Medications Ordered Filled Start Stop Current Ordering Indication Dosage Frequency Signature Comments Components Source Medication Medication Date Date Medication? Clinician (SIG) Name Name bacitracin- No Notes: Kashif bello polymyxin B - (Same As: l topical 15:00: Polysporin Herm annamaria 00 ) bacitracin- No Notes: Kashif bello polymyxin B 1-26 (Same As: l topical 15:00: Polysporin Herm annamaria 00 ) Neosporin No 1 appl, Memor ia 08-18 Route: l 21:07: TOP, [place] 00 Daily, Drug form: OINT, Start date: 08/18/16 15:07:00 BYPRODUCTS PUMP OPERATOR, Duration: 30 day, Stop date: 09/17/16 9:00:00 BYPRODUCTS PUMP OPERATOR Neosporin 2017-0 No 1 applMiguelor ia 08-18 Route: l 21:07: TOP, [place] 00 Daily, Drug form: OINT, Start date: 08/18/16 15:07:00 BYPRODUCTS PUMP OPERATOR, Duration: 30 day, Stop date: 09/17/16 9:00:00 BYPRODUCTS PUMP OPERATOR apixaban 5 2017-0 Yes 5 mg = 1 Mem oria MG Oral 1-25 tab, PO, l Tablet 18:10: BID, # 60 Leoncio n [Eliquis] 28 tab, 0 Refill(s) apixaban 5 2017-0 Yes 5 mg = 1 Mem oria MG Oral 1-25 tab, PO, l Tablet 18:10: BID, # 60 Leoncio n [Eliquis] 28 tab, 0 Refill(s) tamsulosin 2017-0 Yes 0.4 mg = 1 M emoria 0.4 mg oral 1-25 cap, PO, l capsule 18:10: Daily, # Leoncio n 23 30 cap, 0 Refill(s) tamsulosin 2017-0 Yes 0.4 mg = 1 M emoria 0.4 mg oral 1-25 cap, PO, l capsule 18:10: Daily, # Leoncio n 23 30 cap, 0 Refill(s) Ranitidine 2017-0 Yes 150 mg = 1 M emoria 150 MG Oral 1-25 tab, PO, l Tablet 18:10: BID, # 60 Leoncio n 19 tab, 0 Refill(s) Ranitidine 2017-0 Yes 150 mg = 1 M emoria 150 MG Oral 1-25 tab, PO, l Tablet 18:10: BID, # 60 Leoncio n 19 tab, 0 Refill(s) omeprazole 2017-0 Yes 40 mg = 1 Me moria 40 mg oral 1-25 cap, PO, l delayed 18:10: Daily, # Leoncio n release 14 30 cap, 0 capsule Refill(s) omeprazole 2017-0 Yes 40 mg = 1 Me moria 40 mg oral 1-25 cap, PO, l delayed 18:10: Daily, # Leoncio n release 14 30 cap, 0 capsule Refill(s) Metformin 2017-0 Yes 500 mg = 1 Me moria hydrochlori 1-25 tab, PO, l de 500 MG 18:10: BID-Meals, [place] Oral Tablet 02 # 180 tab, 0 Refill(s) Metformin 2017-0 Yes 500 mg = 1 Me moria hydrochlori 1-25 tab, PO, l de 500 MG 18:10: BID-Meals, [place] Oral Tablet 02 # 180 tab, 0 Refill(s) Furosemide 2017-0 Yes 20 mg = 1 Me moria 20 MG Oral 1-25 tab, PO, l Tablet 18:09: Daily, # [place] 57 30 tab, 0 Refill(s) Furosemide 2017-0 Yes 20 mg = 1 Me moria 20 MG Oral 1-25 tab, PO, l Tablet 18:09: Daily, # [place] 57 30 tab, 0 Refill(s) finasteride 2017-0 Yes 5 mg = 1 Me moria 5 mg oral 1-25 tab, PO, l tablet 18:09: Daily, # [place] 51 30 tab, 0 Refill(s) finasteride 20170 Yes 5 mg = 1 Me moria 5 mg oral 1-25 tab, PO, l tablet 18:09: Daily, # [place] 51 30 tab, 0 Refill(s) DULoxetine 2017-0 Yes 60 mg = 1 Me moria 60 mg oral 1-25 cap, PO, l delayed 18:09: Daily, # Leoncio n release 45 30 cap, 0 capsule Refill(s) DULoxetine 2017-0 Yes 60 mg = 1 Me moria 60 mg oral 1-25 cap, PO, l delayed 18:09: Daily, # Leonc[place] n release 45 30 cap, 0 capsule Refill(s) DULoxetine 2017-0 No 60 mg = 1 Me moria 60 mg oral 1-25 cap, PO, l delayed 18:07: Daily, # Leoncio n release 54 30 cap, 0 capsule Refill(s) DULoxetine 2017-0 No 60 mg = 1 Me moria 60 mg oral 1-25 cap, PO, l delayed 18:07: Daily, # Leonc[place] n release 54 30 cap, 0 capsule Refill(s) finasteride 2017-0 No 5 mg = 1 Me moria 5 mg oral 1-25 tab, PO, l tablet 18:07: Daily, # [place] 50 30 tab, 0 Refill(s) finasteride No 5 mg = 1 Me moria 5 mg oral 1-25 tab, PO, l tablet 18:07: Daily, # [place] 50 30 tab, 0 Refill(s) Furosemide No 20 mg = 1 Me moria 20 MG Oral 1-25 tab, PO, l Tablet 18:07: Daily, # [place] 46 30 tab, 0 Refill(s) Furosemide No 20 mg = 1 Me moria 20 MG Oral 1-25 tab, PO, l Tablet 18:07: Daily, # [place] 46 30 tab, 0 Refill(s) Metformin No 500 mg = 1 Me moria hydrochlori 1-25 tab, PO, l de 500 MG 18:07: BID-Meals, [place] Oral Tablet 43 # 180 tab, 0 Refill(s) Metformin No 500 mg = 1 Me moria hydrochlori 1-25 tab, PO, l de 500 MG 18:07: BID-Meals, [place] Oral Tablet 43 # 180 tab, 0 Refill(s) omeprazole No 40 mg = 1 Me moria 40 mg oral 1-25 cap, PO, l delayed 18:07: Daily, # Leonc[place] n release 38 30 cap, 0 capsule Refill(s) omeprazole No 40 mg = 1 Me moria 40 mg oral 1-25 cap, PO, l delayed 18:07: Daily, # Leonc[place] n release 38 30 cap, 0 capsule Refill(s) Ranitidine No 150 mg = 1 M emoria 150 MG Oral 1-25 tab, PO, l Tablet 18:07: BID, # 60 Leoncio n 33 tab, 0 Refill(s) Ranitidine No 150 mg = 1 M emoria 150 MG Oral 1-25 tab, PO, l Tablet 18:07: BID, # 60 Leoncio n 33 tab, 0 Refill(s) tamsulosin No 0.4 mg = 1 M emoria 0.4 mg oral 1-25 cap, PO, l capsule 18:07: Daily, # Leon[place] n 29 30 cap, 0 Refill(s) tamsulosin No 0.4 mg = 1 M emoria 0.4 mg oral 1-25 cap, PO, l capsule 18:07: Daily, # Leonc[place] n 29 30 cap, 0 Refill(s) apixaban 5 No 5 mg = 1 Mem oria MG Oral 1-25 tab, PO, l Tablet 18:07: BID, # 60 Leoncio n [Eliquis] 25 tab, 0 Refill(s) apixaban 5 No 5 mg = 1 Mem oria MG Oral 1-25 tab, PO, l Tablet 18:07: BID, # 60 Leonc[place] n [Eliquis] 25 tab, 0 Refill(s) atorvastati Yes 40 mg = 1 M emoria n 40 mg 1-25 tab, PO, l oral tablet 18:07: Bedtime, # [place] 21 30 tab, 0 Refill(s) atorvastati Yes 40 mg = 1 M emoria n 40 mg 1-25 tab, PO, l oral tablet 18:07: Bedtime, # [place] 21 30 tab, 0 Refill(s) metoprolol Yes 25 mg = 1 Me moria tartrate 25 1-25 tab, PO, l mg oral 18:07: BID, # 60 Mariah nn tablet 16 tab, 0 Refill(s) metoprolol Yes 25 mg = 1 Me moria tartrate 25 1-25 tab, PO, l mg oral 18:07: BID, # 60 Mariah nn tablet 16 tab, 0 Refill(s) metoprolol No 25 mg = 1 Me moria tartrate 25 1-25 tab, PO, l mg oral 18:05: BID, # 60 Mariah nn tablet 27 tab, 0 Refill(s) metoprolol No 25 mg = 1 Me moria tartrate 25 1-25 tab, PO, l mg oral 18:05: BID, # 60 Mariah nn tablet 27 tab, 0 Refill(s) atorvastati No 40 mg = 1 M emoria n 40 mg 1-25 tab, PO, l oral tablet 18:05: Bedtime, # [place] 20 30 tab, 0 Refill(s) atorvastati No 40 mg = 1 M emoria n 40 mg 1-25 tab, PO, l oral tablet 18:05: Bedtime, # [place] 20 30 tab, 0 Refill(s) apixaban 5 No 5 mg = 1 Mem oria MG Oral 1-25 tab, PO, l Tablet 18:05: BID, # 60 Leoncio n [Eliquis] 15 tab, 0 Refill(s) apixaban 5 No 5 mg = 1 Mem oria MG Oral 1-25 tab, PO, l Tablet 18:05: BID, # 60 Leoncio n [Eliquis] 15 tab, 0 Refill(s) tamsulosin No 0.4 mg = 1 M emoria 0.4 mg oral 1-25 cap, PO, l capsule 18:05: Daily, # Leonc[place] n 10 30 cap, 0 Refill(s) tamsulosin No 0.4 mg = 1 M emoria 0.4 mg oral 1-25 cap, PO, l capsule 18:05: Daily, # Leonc[place] n 10 30 cap, 0 Refill(s) Ranitidine No 150 mg = 1 M emoria 150 MG Oral 1-25 tab, PO, l Tablet 18:05: BID, # 60 Leoncio n 04 tab, 0 Refill(s) Ranitidine No 150 mg = 1 M emoria 150 MG Oral 1-25 tab, PO, l Tablet 18:05: BID, # 60 Leoncio n 04 tab, 0 Refill(s) omeprazole No 40 mg = 1 Me moria 40 mg oral 1-25 cap, PO, l delayed 18:04: Daily, # Leonc[place] n release 59 30 cap, 0 capsule Refill(s) omeprazole No 40 mg = 1 Me moria 40 mg oral 1-25 cap, PO, l delayed 18:04: Daily, # Leon[place] n release 59 30 cap, 0 capsule Refill(s) Metformin No 500 mg = 1 Me moria hydrochlori 1-25 tab, PO, l de 500 MG 18:04: BID-Meals, [place] Oral Tablet 53 # 180 tab, 0 Refill(s) Metformin No 500 mg = 1 Me moria hydrochlori 1-25 tab, PO, l de 500 MG 18:04: BID-Meals, [place] Oral Tablet 53 # 180 tab, 0 Refill(s) Furosemide No 20 mg = 1 Me moria 20 MG Oral 1-25 tab, PO, l Tablet 18:04: Daily, # [place] 48 30 tab, 0 Refill(s) Furosemide No 20 mg = 1 Me moria 20 MG Oral 1-25 tab, PO, l Tablet 18:04: Daily, # [place] 48 30 tab, 0 Refill(s) finasteride No 5 mg = 1 Me moria 5 mg oral 1-25 tab, PO, l tablet 18:04: Daily, # [place] 43 30 tab, 0 Refill(s) finasteride No 5 mg = 1 Me moria 5 mg oral 1-25 tab, PO, l tablet 18:04: Daily, # [place] 43 30 tab, 0 Refill(s) DULoxetine No 60 mg = 1 Me moria 60 mg oral 1-25 cap, PO, l delayed 18:04: Daily, # Leoncio n release 37 30 cap, 0 capsule Refill(s) DULoxetine No 60 mg = 1 Me moria 60 mg oral 1-25 cap, PO, l delayed 18:04: Daily, # Leonc[place] n release 37 30 cap, 0 capsule Refill(s) apixaban 5 No 5 mg = 1 Mem oria MG Oral 1-25 tab, PO, l Tablet 17:48: BID, # 60 Leoncio n [Eliquis] 00 tab, 0 Refill(s) tamsulosin No 0.4 mg = 1 M emoria 0.4 mg oral 1-25 cap, PO, l capsule 17:48: Daily, # Leoncio n 00 30 cap, 0 Refill(s) Ranitidine No 150 mg = 1 M emoria 150 MG Oral 1-25 tab, PO, l Tablet 17:48: BID, # 60 Leoncio n 00 tab, 0 Refill(s) Metformin No 500 mg = 1 Me moria hydrochlori 1-25 tab, PO, l de 500 MG 17:48: BID-Meals, [place] Oral Tablet 00 # 180 tab, 0 Refill(s) Furosemide No 20 mg = 1 Me moria 20 MG Oral 1-25 tab, PO, l Tablet 17:48: Daily, # [place] 00 30 tab, 0 Refill(s) finasteride No 5 mg = 1 Me moria 5 mg oral 1-25 tab, PO, l tablet 17:48: Daily, # [place] 00 30 tab, 0 Refill(s) DULoxetine No 60 mg = 1 Me moria 60 mg oral 1-25 cap, PO, l delayed 17:48: Daily, # Leoncio n release 00 30 cap, 0 capsule Refill(s) metoprolol No 25 mg = 1 Me moria tartrate 25 1-25 tab, PO, l mg oral 17:48: BID, # 60 Mariah nn tablet 00 tab, 0 Refill(s) omeprazole No 40 mg = 1 Me moria 40 mg oral 1-25 cap, PO, l delayed 17:48: Daily, # Leoncio n release 00 30 cap, 0 capsule Refill(s) atorvastati No 40 mg = 1 M emoria n 40 mg 1-25 tab, PO, l oral tablet 17:48: Bedtime, # [place] 00 30 tab, 0 Refill(s) apixaban 5 No 5 mg = 1 Mem oria MG Oral 1-25 tab, PO, l Tablet 17:48: BID, # 60 Leoncio n [Eliquis] 00 tab, 0 Refill(s) tamsulosin No 0.4 mg = 1 M emoria 0.4 mg oral 1-25 cap, PO, l capsule 17:48: Daily, # Leonc[place] n 00 30 cap, 0 Refill(s) Ranitidine No 150 mg = 1 M emoria 150 MG Oral 1-25 tab, PO, l Tablet 17:48: BID, # 60 Leoncio n 00 tab, 0 Refill(s) Metformin No 500 mg = 1 Me moria hydrochlori 1-25 tab, PO, l de 500 MG 17:48: BID-Meals, [place] Oral Tablet 00 # 180 tab, 0 Refill(s) Furosemide No 20 mg = 1 Me moria 20 MG Oral 1-25 tab, PO, l Tablet 17:48: Daily, # [place] 00 30 tab, 0 Refill(s) finasteride No 5 mg = 1 Me moria 5 mg oral 1-25 tab, PO, l tablet 17:48: Daily, # [place] 00 30 tab, 0 Refill(s) DULoxetine No 60 mg = 1 Me moria 60 mg oral 1-25 cap, PO, l delayed 17:48: Daily, # Leonc[place] n release 00 30 cap, 0 capsule Refill(s) metoprolol No 25 mg = 1 Me moria tartrate 25 1-25 tab, PO, l mg oral 17:48: BID, # 60 Mariah nn tablet 00 tab, 0 Refill(s) omeprazole No 40 mg = 1 Me moria 40 mg oral 1-25 cap, PO, l delayed 17:48: Daily, # Leonc[place] n release 00 30 cap, 0 capsule Refill(s) atorvastati No 40 mg = 1 M emoria n 40 mg 1-25 tab, PO, l oral tablet 17:48: Bedtime, # [place] 00 30 tab, 0 Refill(s) hydrOXYzine No 25 mg = 1 M emoria pamoate 1-25 cap, PO, l 17:45: Q6H, PRN [place] 00 nausea, # 20 cap, 0 Refill(s) hydrOXYzine No 25 mg = 1 M emoria pamoate 1-25 cap, PO, l 17:45: Q6H, PRN [place] 00 nausea, # 20 cap, 0 Refill(s) Furosemide No 20 mg = 1 Me moria 20 MG Oral 1-25 tab, PO, l Tablet 17:40: Daily, # [place] 00 30 tab, 0 Refill(s) finasteride No 5 mg = 1 Me moria 5 mg oral 1-25 tab, PO, l tablet 17:40: Daily, # [place] 00 30 tab, 0 Refill(s) omeprazole No 20 mg = 1 Me moria 20 mg oral 1-25 tab, PO, l enteric 17:40: BID, # 30 Mariah nn coated 00 tab, 0 tablet Refill(s) tamsulosin No 0.4 mg = 1 M emoria 0.4 mg oral 1-25 cap, PO, l capsule 17:40: Daily, # Leonc[place] n 00 30 cap, 0 Refill(s) Omeprazole No PO, Daily, M emoria 1-25 0 l 17:40: Refill(s) [place] 00 metoprolol No 25 mg = 1 Me moria tartrate 25 1-25 tab, PO, l mg oral 17:40: BID, # 180 Herm annamaria tablet 00 tab, 0 Refill(s) apixaban 5 No 5 mg = 1 Mem oria MG Oral 1-25 tab, PO, l Tablet 17:40: BID, 0 Joe [Eliquis] 00 Refill(s) Metformin No 500 mg = 1 Me moria hydrochlori 1-25 tab, PO, l de 500 MG 17:40: BID-Meals, [place] Oral Tablet 00 # 30 tab, 0 Refill(s) Ranitidine No 150 mg = 1 M emoria 150 MG Oral 1-25 tab, PO, l Tablet 17:40: BID, # 60 Leoncio n 00 tab, 0 Refill(s) DULoxetine No 60 mg = 1 Me moria 60 mg oral 1-25 cap, PO, l delayed 17:40: Daily, # Leoncio n release 00 30 cap, 0 capsule Refill(s) simvastatin No 10 mg = 1 M emoria 10 mg oral 1-25 tab, PO, l tablet 17:40: Bedtime, # Mariah nn 00 30 tab, 0 Refill(s) oxybutynin No 5 mg = 1 Mem oria 5 mg oral 1-25 tab, PO, l tablet 17:40: TID, PRN [place] 00 Other-See Comments, # 30 tab, 0 Refill(s) Furosemide No 20 mg = 1 Me moria 20 MG Oral 1-25 tab, PO, l Tablet 17:40: Daily, # [place] 00 30 tab, 0 Refill(s) finasteride No 5 mg = 1 Me moria 5 mg oral 1-25 tab, PO, l tablet 17:40: Daily, # [place] 00 30 tab, 0 Refill(s) omeprazole No 20 mg = 1 Me moria 20 mg oral 1-25 tab, PO, l enteric 17:40: BID, # 30 Mariah nn coated 00 tab, 0 tablet Refill(s) tamsulosin No 0.4 mg = 1 M emoria 0.4 mg oral 1-25 cap, PO, l capsule 17:40: Daily, # Leoncio n 00 30 cap, 0 Refill(s) Omeprazole No PO, Daily, M emoria 1-25 0 l 17:40: Refill(s) [place] 00 metoprolol No 25 mg = 1 Me moria tartrate 25 1-25 tab, PO, l mg oral 17:40: BID, # 180 Herm annamaria tablet 00 tab, 0 Refill(s) apixaban 5 No 5 mg = 1 Mem oria MG Oral 1-25 tab, PO, l Tablet 17:40: BID, 0 [place] [Eliquis] 00 Refill(s) Metformin No 500 mg = 1 Me moria hydrochlori 1-25 tab, PO, l de 500 MG 17:40: BID-Meals, [place] Oral Tablet 00 # 30 tab, 0 Refill(s) Ranitidine No 150 mg = 1 M emoria 150 MG Oral 1-25 tab, PO, l Tablet 17:40: BID, # 60 Leoncio n 00 tab, 0 Refill(s) DULoxetine No 60 mg = 1 Me moria 60 mg oral 1-25 cap, PO, l delayed 17:40: Daily, # Leoncio n release 00 30 cap, 0 capsule Refill(s) simvastatin No 10 mg = 1 M emoria 10 mg oral 1-25 tab, PO, l tablet 17:40: Bedtime, # Mariah nn 00 30 tab, 0 Refill(s) oxybutynin No 5 mg = 1 Mem oria 5 mg oral 1-25 tab, PO, l tablet 17:40: TID, PRN [place] 00 Other-See Comments, # 30 tab, 0 Refill(s) Sodium No 250 mL, Memoria Chloride 1-25 250 ml/hr, l 0.154 14:56: Infuse [place] MEQ/ML 00 Over: 1 Injectable hr, Route: Solution IV, 250, Drug form: INJ, ONCE, Priority: STAT, Dosing Weight 82 kg, Start date: 08/18/16 8:56:00 BYPRODUCTS PUMP OPERATOR, Duration: 1 doses or times, Stop date: 08/18/16 8:56:00 BYPRODUCTS PUMP OPERATOR Sodium 2017- No 250 mL, Memoria Chloride 1-25 250 ml/hr, l 0.154 14:56: Infuse [place] MEQ/ML 00 Over: 1 Injectable hr, Route: Solution IV, 250, Drug form: INJ, ONCE, Priority: STAT, Dosing Weight 82 kg, Start date: 08/18/16 8:56:00 BYPRODUCTS PUMP OPERATOR, Duration: 1 doses or times, Stop date: 08/18/16 8:56:00 BYPRODUCTS PUMP OPERATOR Tylenol No Notes: Do Memor ia 1-25 not exceed l 14:52: 4 gm/day. [place] (Same as: Tylenol) Tylenol No Notes: Do Memor ia 1-25 not exceed l 14:52: 4 gm/day. [place] (Same as: Tylenol) Magnesium No Notes: Memori a Oxide 1-25 (Same as: l 14:49: Mag-Ox [place] 00 400) Magnesium oxide 947zl=003h g elemental magnesium Dose=____m g magnesium oxide (___mg elemental magnesium) Magnesium No Notes: Memori a Oxide 1-25 (Same as: l 14:49: Mag-Ox [place] 00 400) Magnesium oxide 485fe=381z g elemental magnesium Dose=____m g magnesium oxide (___mg elemental magnesium) Metoprolol No Notes: Memor ia 1-25 (Same as: l 10:35: Lopressor) [place] 00 Push over 2 minutes Metoprolol No Notes: Memor ia 1-25 (Same as: l 10:35: Lopressor) Joe Push over 2 minutes Robitussin No 30 mg, Memor ia CoughGels 1-25 Route: PO, l 06:00: Q6H, Dosing Weight 82, kg, Start date: 08/18/16 0:00:00 BYPRODUCTS PUMP OPERATOR, Duration: 30 day, Stop date: 09/16/16 18:00:00 BYPRODUCTS PUMP OPERATOR Robitussin No 30 mg, Memor ia CoughGels 1-25 Route: PO, l 06:00: Q6H, Dosing Weight 82, kg, Start date: 08/18/16 0:00:00 BYPRODUCTS PUMP OPERATOR, Duration: 30 day, Stop date: 09/16/16 18:00:00 BYPRODUCTS PUMP OPERATOR Eliquis No Notes: Memoria 1-25 Same as: l 03:00: Eliquis Eliquis No Notes: Memoria 1-25 Same as: l 03:00: Eliquis benzocaine- No Notes: Kashif bello menthol 1-25 Cepacol l topical 01:29: lozenges Leoncio n 00 Dispense 1 box = 16 lozenges (Same As: Cepacol Lozenges) benzocaine- No Notes: Kashif bello menthol 1-25 Cepacol l topical 01:29: lozenges Leoncio n 00 Dispense 1 box = 16 lozenges (Same As: Cepacol Lozenges) Albuterol No Notes: Memori a 0.833 MG/ML 1-25 (Same as: :46: Duoneb) Ipratropium 00 [place] 0.167 MG/ML Inhalant Solution [DuoNeb] Albuterol No Notes: Memori a 0.833 MG/ML 1-25 (Same as: :46: Duoneb) Ipratropium 00 [place] 0.167 MG/ML Inhalant Solution [DuoNeb] metoprolol No Notes: Memor ia tartrate 1-24 (Same as: l 22:00: Lopressor) 12.5mg=1/ 4 X 50 mg tab. metoprolol No Notes: Memor ia tartrate 1-24 (Same as: l 22:00: Lopressor) Joe 00 12.5mg=1/ 4 X 50 mg tab. Metoprolol No Notes: Memor ia 1-24 (Same as: l 15:58: Lopressor) Push over 2 minutes Metoprolol No Notes: Memor ia 1-24 (Same as: l 15:58: Lopressor) Push over 2 minutes Acetaminoph No Notes: Max Memoria en -24 acetaminop l 14:55: hen = [place] 00 4000mg/day (4 gm/day). (Same as: Tylenol) Acetaminoph No Notes: Max Memoria en 24 acetaminop l 14:55: hen = [place] 00 4000mg/day (4 gm/day). (Same as: Tylenol) Magnesium No Notes: Memori a Oxide 08-17 (Same as: l 11:32: Mag-Ox [place] 00 400) Magnesium oxide 511mp=173p g elemental magnesium Dose=____m g magnesium oxide (___mg elemental magnesium) Magnesium No Notes: Memori a Oxide 08-17 (Same as: l 11:32: Mag-Ox [place] 00 400) Magnesium oxide 842or=295m g elemental magnesium Dose=____m g magnesium oxide (___mg elemental magnesium) Tramadol No Notes: Not Mem oria 24 to exceed l 10:22: 400mg/day. [place] 00 (Same As: Ultram) Tramadol No Notes: Not Mem oria 24 to exceed l 10:22: 400mg/day. [place] 00 (Same As: Ultram) atorvastati No Notes: Kashif bello n 1-24 (Same as: l 03:00: Lipitor) [place] atorvastati No Notes: Kashif bello n 1-24 (Same as: l 03:00: Lipitor) Joe insulin No Notes: Memoria detemir 08-16 Same as l 15:00: Levemir Do Joe not hold insulin without contacting prescriber WASTE: F/P - Black; E - Municipal Trash Bin "single patient use only" Protonix No Notes: Memoria 08-16 Tablet l 15:00: should not Joe 00 be chewed or crushed. (Same as: Protonix) Insulin No 5 unit, Memoria Glargine 08-16 Route: l 100 UNT/ML 15:00: SUB-Q, Mariah nn Injectable 00 Daily, Solution Dosing Weight 82, kg, Start date: 08/16/16 9:00:00 [employer]PRODUCTS PUMP OPERATOR, Duration: 30 day, Stop date: 09/14/16 9:00:00 BYPRODUCTS PUMP OPERATOR Docusate No Notes: Memoria Sodium 50 1-23 (Same as l MG / 15:00: Senokot-S) [place] sennosides, 00 Equiv. to FDC 8.6 MG Nicolasa-Colac Oral Tablet e. insulin No Notes: Memoria detemir 1-23 Same as l 15:00: Levemir Do [place] 00 not hold insulin without contacting prescriber WASTE: F/P - Black; E - Municipal Trash Bin "single patient use only" Protonix No Notes: Memoria 1-23 Tablet l 15:00: should not [place] 00 be chewed or crushed. (Same as: Protonix) Insulin No 5 unit, Memoria Glargine 08-16 Route: l 100 UNT/ML 15:00: SUB-Q, Mariah nn Injectable 00 Daily, Solution Dosing Weight 82, kg, Start date: 08/16/16 9:00:00 BYPRODUCTS PUMP OPERATOR, Duration: 30 day, Stop date: 09/14/16 9:00:00 BYPRODUCTS PUMP OPERATOR Docusate No Notes: Memoria Sodium 50 1-23 (Same as l MG / 15:00: Senokot-S) Joe sennosides, 00 Equiv. to FDC 8.6 MG Nicolasa-Colac Oral Tablet e. Insulin, No Notes: Memoria Aspart, 1- Roll in l Human 10:31: palms of Joe 00 hands gently; Do not shake vigorously . (Same as: NovoLOG) "single patient use only" WASTE: F/P - Black; E - Municipal Trash Bin Stable for 28 days at room temperatur e. Expires in days from ____Date Glucagon No 1 mg, Memoria 1-23 Route: IM, l 10:31: Drug form: Joe 00 PDR/INJ, PRN, Dosing Weight 82, kg, PRN Blood Glucose Results, Start date: 08/16/16 4:31:00 [employer] PUMP OPERATOR, Duration: 30 day, Stop date: 09/15/16 4:30:00 [employer] PUMP OPERATOR Dextrose No 12.5 gm, Memor ia 50% Syringe 08-16 25 mL, l 10:31: Route: [place] 00 IVP, Drug Form: INJ, Dosing Weight 82, kg, PRN, PRN Blood Glucose Results, Start date: 08/16/16 4:31:00 [employer] PUMP OPERATOR, Duration: 30 day, Stop date: 09/15/16 4:30:00 [employer] PUMP OPERATOR heparin 2016-0 No 500 mL, Memoria additive - Rate: l 25,000 unit 10:31: 20.68 Mariah nn [14 00 ml/hr, unit/kg/hr] Infuse + Premix over: 24.2 Diluent hr, Route: Dextrose 5% IV, Dosing 500 mL Weight 73.84 kg, Total Volume: 500 mL, Start date: 08/16/16 4:31:00 [employer] PUMP OPERATOR, Duration: 30 day, Stop date: 09/15/16 4:30:00 [employer] PUMP OPERATOR Insulin, 2016-0 No Notes: Memoria Aspart, - Roll in l Human 10:31: palms of hands gently; Do not shake vigorously . (Same as: NovoLOG) "single patient use only" WASTE: F/P - Black; E - [employer] Trash Bin Stable for 28 days at room temperatur e. Expires in days from ____Date Glucagon 2016-0 No 1 mg, Memoria 1- Route: IM, l 10:31: Drug form: [place] 00 PDR/INJ, PRN, Dosing Weight 82, kg, PRN Blood Glucose Results, Start date: 08/16/16 4:31:00 [employer] PUMP OPERATOR, Duration: 30 day, Stop date: 09/15/16 4:30:00 [employer] PUMP OPERATOR Dextrose 2016-0 No 12.5 gm, Memor ia 50% Syringe 08-16 25 mL, l 10:31: Route: [place] 00 IVP, Drug Form: INJ, Dosing Weight 82, kg, PRN, PRN Blood Glucose Results, Start date: 08/16/16 4:31:00 [employer] PUMP OPERATOR, Duration: 30 day, Stop date: 09/15/16 4:30:00 [employer] PUMP OPERATOR heparin 2016-0 No 500 mL, Memoria additive 08-16 Rate: l 25,000 unit 10:31: 20.68 Mariah nn [14 00 ml/hr, unit/kg/hr] Infuse + Premix over: 24.2 Diluent hr, Route: Dextrose 5% IV, Dosing 500 mL Weight 73.84 kg, Total Volume: 500 mL, Start date: 08/16/16 4:31:00 BYPRODUCTS PUMP OPERATOR, Duration: 30 day, Stop date: 09/15/16 4:30:00 BYPRODUCTS PUMP OPERATOR Magnesium 2016-0 No Notes: Memori a Sulfate 08-16 WASTE: F/P l 09:19: - Sink; E Joe - [facility] Trash [facility] Magnesium 2016- No Notes: Memori a Sulfate 08-16 WASTE: F/P l 09:19: - Sink; E [place] - [facility] Trash [facility] Magnesium No 2 gm, Memoria Sulfate 08-16 Route: l 09:18: IVPB, Drug [place] 00 form: INJ, ONCE, Dosing Weight 82, kg, Start date: 08/16/16 3:18:00 BYPRODUCTS PUMP OPERATOR, Duration: 2 hr, Stop date: 08/16/16 3:18:00 BYPRODUCTS PUMP OPERATOR Magnesium 2016-0 No 2 gm, Memoria Sulfate 08-16 Route: l 09:18: IVPB, Drug [place] 00 form: INJ, ONCE, Dosing Weight 82, kg, Start date: 08/16/16 3:18:00 BYPRODUCTS PUMP OPERATOR, Duration: 2 hr, Stop date: 08/16/16 3:18:00 BYPRODUCTS PUMP OPERATOR Norepinephr No Notes: Not Memoria ine 08-16 for direct l 08:34: administra [place] 00 tion - DILUTE. Protect from light. (Same as:Levophe d). Administer by either central venous catheter or peripheral ly-inserte d central catheter (PICC) line. Norepinephr No Notes: Not Memoria ine 08-16 for direct l 08:34: administra [place] 00 tion - DILUTE. Protect from light. (Same as:Levophe d). Administer by either central venous catheter or peripheral ly-inserte d central catheter (PICC) line. Versed No Notes: Memoria 08-16 (Same as: l 07:49: Versed) Joe 00 MEDICATION WASTE Product Size: 2 mg Product Wasted: ___ mg Versed No Notes: Memoria 08-16 (Same as: l 07:49: Versed) [place] 00 MEDICATION WASTE Product Size: 2 mg Product Wasted: ___ mg Fentanyl No 1,000 Memoria 1-23 microgram, l 07:48: 20 mL, [place] 00 Rate: Titrate, Start Dose: 50 microgram/ hr, Titration: 25 microgram/ hour every 15 minutes, Goal(s): RASS -2, Max Dose: 300 microgram/ hr, Route: IV, Dosing Weight 82 kg, Total Volume: 20, Start date: 08/16/16 1:48:00 BYPRODUCTS PUMP OPERATOR, Durati... Fentanyl No 1,000 Memoria 1-23 microgram, l 07:48: 20 mL, [place] 00 Rate: Titrate, Start Dose: 50 microgram/ hr, Titration: 25 microgram/ hour every 15 minutes, Goal(s): RASS -2, Max Dose: 300 microgram/ hr, Route: IV, Dosing Weight 82 kg, Total Volume: 20, Start date: 08/16/16 1:48:00 BYPRODUCTS PUMP OPERATOR, Durati... tramadol Yes 50 mg = 1 Kashif ebllo hydrochlori 3-22 tab, PO, l de 50 MG 16:48: Q6H, PRN Mariah nn Oral Tablet 57 Pain Score 6-10, X 7 day, # 15 tab, 0 Refill(s) tramadol Yes 50 mg = 1 Kashif bello hydrochlori 3-22 tab, PO, l de 50 MG 16:48: Q6H, PRN Mariah nn Oral Tablet 57 Pain Score 6-10, X 7 day, # 15 tab, 0 Refill(s) insulin Yes 8 unit, Memoria detemir 100 3-22 SUB-Q, l units/mL 15:13: Daily, [facility] increase your long-actin g insulin dose back to30 units you were taking prior if your sugars are more than 200 repeatedly . You did not require your home doses in the hospital., 0 Refill(s) senna 8.6 Yes 17.2 mg = Mem oria mg oral 3-22 2 tab, PO, l tablet 15:13: Bedtime, Joe 00 PRN Constipati on, AVAILABLE OVER THE COUNTER WITHOUT PRESCRIPTI ON, X 10 day, # 20 tab, 0 Refill(s) Amylases Yes 1 cap, PO, Mem oria 08154 UNT / 3-22 BID, PRN l Endopeptida 15:13: snack, 0 [place] [id number] 00 Refill(s) UNT / Lipase 6000 UNT Enteric Coated Capsule [Creon 6] docusate Yes 100 mg = 1 Mem oria sodium 100 10-13 cap, PO, l mg oral 15:13: BID, [place] capsule 00 AVAILABLE OVER THE COUNTER WITHOUT PRESCRIPTI ON, # 60 cap, 0 Refill(s) oxybutynin Yes 5 mg = 1 Mem oria 5 mg oral -22 tab, PO, l tablet 15:13: TID, PRN [place] 00 Bladder Spasm, 0 Refill(s) tramadol No 50 mg = 1 Kashif bello hydrochlori -22 tab, PO, l de 50 MG 15:13: Q6H, PRN Mariah nn Oral Tablet 00 Pain Score 6-10, X 7 day, # 28 tab, 0 Refill(s) melatonin 3 Yes 3 mg, PO, M emoria mg oral 10-13 Bedtime, X l tablet 15:13: 30 day, # Leoncio n 00 30 tab, 0 Refill(s) methocarbam Yes 750 mg = 1 Memoria ol 750 mg 10-13 tab, PO, l oral tablet 15:13: TID, X 14 H ermann 00 day, # 42 tab, 0 Refill(s) Insulin, Yes 6 unit, Memori a Aspart, 10-13 SUB-Q, l Human 15:13: TID-Before Leoncio n 00 Meals, you can increase your insulin doses back to 12 units you were taking prior if your sugars are more than 200 repeatedly . You did not require your home doses in the hospital., 0 Refill(s) latanoprost Yes 1 drp, Kashif bello 0.05 MG/ML 10-13 RIGHT EYE, l Ophthalmic 15:13: Bedtime, 0 H ermann Solution 00 Refill(s) acetaminoph Yes 1,000 mg = Memoria en 500 mg 22 2 tab, PO, l oral tablet 15:13: Q6H, not He rmann 00 to exceed 4000 mg/day, 0 Refill(s) insulin Yes 8 unit, Memoria detemir 100 3-22 SUB-Q, l units/mL 15:13: Daily, you Her cramer subcutaneou 00 can s solution increase your long-actin g insulin dose back to30 units you were taking prior if your sugars are more than 200 repeatedly . You did not require your home doses in the hospital., 0 Refill(s) senna 8.6 Yes 17.2 mg = Mem oria mg oral 3-22 2 tab, PO, l tablet 15:13: Bedtime, [place] 00 PRN Constipati on, AVAILABLE OVER THE COUNTER WITHOUT PRESCRIPTI ON, X 10 day, # 20 tab, 0 Refill(s) Amylases Yes 1 cap, PO, Mem oria 81227 UNT / 3-22 BID, PRN l Endopeptida 15:13: snack, 0 [place] [id number] 00 Refill(s) UNT / Lipase 6000 UNT Enteric Coated Capsule [Creon 6] docusate Yes 100 mg = 1 Mem oria sodium 100 3-22 cap, PO, l mg oral 15:13: BID, [place] capsule 00 AVAILABLE OVER THE COUNTER WITHOUT PRESCRIPTI ON, # 60 cap, 0 Refill(s) oxybutynin Yes 5 mg = 1 Mem oria 5 mg oral 3-22 tab, PO, l tablet 15:13: TID, PRN [place] 00 Bladder Spasm, 0 Refill(s) tramadol No 50 mg = 1 Kashif bello hydrochlori 3-22 tab, PO, l de 50 MG 15:13: Q6H, PRN Mariah nn Oral Tablet 00 Pain Score 6-10, X 7 day, # 28 tab, 0 Refill(s) melatonin 3 Yes 3 mg, PO, M emoria mg oral 3-22 Bedtime, X l tablet 15:13: 30 day, # Leoncio n 00 30 tab, 0 Refill(s) methocarbam Yes 750 mg = 1 Memoria ol 750 mg 3-22 tab, PO, l oral tablet 15:13: TID, X 14 H ermann 00 day, # 42 tab, 0 Refill(s) Insulin, Yes 6 unit, Memori a Aspart, 3-22 SUB-Q, l Human 15:13: TID-Before Leoncio n 00 Meals, you can increase your insulin doses back to 12 units you were taking prior if your sugars are more than 200 repeatedly . You did not require your home doses in the hospital., 0 Refill(s) latanoprost Yes 1 drp, Kashif bello 0.05 MG/ML 10-13 RIGHT EYE, l Ophthalmic 15:13: Bedtime, 0 H ermann Solution 00 Refill(s) acetaminoph Yes 1,000 mg = Memoria en 500 mg 10-13 2 tab, PO, l oral tablet 15:13: Q6H, not He r[place] 00 to exceed 4000 mg/day, 0 Refill(s) insulin No Notes: Memoria detemir 10-13 Same as l 14:00: Levemir Do [place] 00 not hold insulin without contacting prescriber WASTE: F/P - Black; E - [facility] Trash [facility] "single patient use only" insulin No Notes: Memoria detemir 10-13 Same as l 14:00: Levemir Do [place] 00 not hold insulin without contacting prescriber WASTE: F/P - Black; E - [facility] Trash [facility] "single patient use only" insulin No Notes: Memoria detemir - Same as l 14:39: Le[place] Do [place] 00 not hold insulin without contacting prescriber WASTE: F/P - Black; E - [facility] Tr[facility] "single patient use only" insulin No Notes: Memoria detemir - Same as l 14:39: Le[place]mir Do [place] 00 not hold insulin without contacting prescriber WASTE: F/P - Black; E - [facility] Trash [facility] "single patient use only" Enoxaparin No Notes: Memor ia 3-21 (Same as: l 14:00: Lovenox) [place] 00 Kenalog No Notes: Memoria 0.1% 3-21 (triamcino l topical 14:00: lone [place] cream 00 acetonide 0.1% 15 gm top CRM) (Same As: Kenalog) Enoxaparin No Notes: Memor ia 3-21 (Same as: l 14:00: Lovenox) [place] 00 Kenalog No Notes: Memoria 0.1% 3-21 (triamcino l topical 14:00: lone [place] cream 00 acetonide 0.1% 15 gm top CRM) (Same As: Kenalog) Insulin, No Notes: Memoria Aspart, 3-20 Roll in l Human 16:30: palms of [place] 00 hands gently; Do not shake vigorously . (Same as: NovoLOG) "single patient use only" WASTE: F/P - Black; E - [facility] Trash [facility] Stable for 28 days at room temperatur e. Expires in days from ____Date Insulin, No Notes: Memoria Aspart, 3-20 Roll in l Human 16:30: palms of [place] 00 hands gently; Do not shake vigorously . (Same as: NovoLOG) "single patient use only" WASTE: F/P - Black; E - [facility] Trash [facility] Stable for 28 days at room temperatur e. Expires in days from ____Date insulin No Notes: Memoria detemir 3-20 Same as l 15:00: Levemir Do [place] 00 not hold insulin without contacting prescriber WASTE: F/P - Black; E - [facility] Trash [facility] "single patient use only" insulin No Notes: Memoria detemir 3-20 Same as l 15:00: Levemir Do [place] 00 not hold insulin without contacting prescriber WASTE: F/P - Black; E - [facility] Trash [facility] "single patient use only" Insulin, No Notes: Memoria Aspart, 3-20 Roll in l Human 13:00: palms of [place] 00 hands gently; Do not shake vigorously . (Same as: NovoLOG) "single patient use only" WASTE: F/P - Black; E - [facility] Trash [facility] Stable for 28 days at room temperatur e. Expires in days from ____Date Insulin, No Notes: Memoria Aspart, 3-20 Roll in l Human 13:00: palms of [place] 00 hands gently; Do not shake vigorously . (Same as: NovoLOG) "single patient use only" WASTE: F/P - Black; E - [facility] Trash [facility] Stable for 28 days at room temperatur e. Expires in days from ____Date Robaxin No Notes: Memoria 3-19 (Same l 14:00: as:Robaxin [place] 00 ) Flomax No Notes: Memoria 3-19 (Same As: l 14:00: Flomax) [place] 00 "Do Not Crush" pantoprazol No Notes: Kashif bello e 3-19 Tablet l 14:00: should not [place] 00 be chewed or crushed. (Same as: Protonix) Finasteride No Notes: Kashif bello 3-19 (Same as: l 14:00: Proscar) [place] 00 "Do Not Crush" Women of childbeari ng age should not touch or handle broken tablets duloxetine No Notes: Memor ia 3-19 (Same as: l 14:00: Cymbalta) [place] 00 (Do Not Crush) Aspirin 81 No Notes: Do Me moria MG Enteric 3-19 not crush l Coated 14:00: or chew. Joe Tablet 00 (Same As: Ecotrin) Robaxin No Notes: Memoria 3-19 (Same l 14:00: as:Robaxin [place] 00 ) Flomax No Notes: Memoria 3-19 (Same As: l 14:00: Flomax) [place] 00 "Do Not Crush" pantoprazol No Notes: Kashif bello e 3-19 Tablet l 14:00: should not [place] 00 be chewed or crushed. (Same as: Protonix) Finasteride No Notes: Kashif bello 3-19 (Same as: l 14:00: Proscar) [place] 00 "Do Not Crush" Women of childbeari ng age should not touch or handle broken tablets duloxetine 0 No Notes: Memor ia 3-19 (Same as: l 14:00: Cymbalta) [place] 00 (Do Not Crush) Aspirin 81 No Notes: Do Me moria MG Enteric 3-19 not crush l Coated 14:00: or chew. Joe Tablet 00 (Same As: Ecotrin) Amylases No Notes: Memoria 76445 UNT / -19 (lipase l Endopeptida 13:00: 60,000 [place] [address] 00 units, UNT / protease Lipase 6000 19,000 UNT Enteric units, Coated amylase Capsule 30,000 [Creon 6] units DRC) Same as: Creon (Creon 6) Amylases No Notes: Memoria 24925 UNT / 3-19 (lipase l Endopeptida 13:00: 60,000 [place] [address] 00 units, UNT / protease Lipase 6000 19,000 UNT Enteric units, Coated amylase Capsule 30,000 [Creon 6] units DRC) Same as: Creon (Creon 6) Amylases No Notes: Memoria 45115 UNT / 3-19 (lipase l Endopeptida 12:16: 60,000 [place] [address] 00 units, UNT / protease Lipase 6000 19,000 UNT Enteric units, Coated amylase Capsule 30,000 [Creon 6] units DRC) Same as: Creon (Creon 6) Amylases No Notes: Memoria 46465 UNT / 3-19 (lipase l Endopeptida 12:16: 60,000 [place] 6[address] 00 units, UNT / protease Lipase 6000 19,000 UNT Enteric units, Coated amylase Capsule 30,000 [Creon 6] units DRC) Same as: Creon (Creon 6) Simvastatin No Notes: Kashif bello 3-19 (Same as: l 02:00: Zocor) [place] 00 Melatonin 3 No Notes: Kashif bello MG Extended 3-19 (Same as: l Release 02:00: Melatonin) Herm annamaria Tablet 00 latanoprost No Notes: Kashif bello 0.05 MG/ML 3-19 Keep l Ophthalmic 02:00: refrigerat H ermann Solution 00 ed. (Same as:Xalatan ) Simvastatin No Notes: Kashif bello 3-19 (Same as: l 02:00: Zocor) [place] 00 Melatonin 3 No Notes: Kashif bello MG Extended 3-19 (Same as: l Release 02:00: Melatonin) Herm annamaria Tablet 00 latanoprost No Notes: Kashif bello 0.05 MG/ML - Keep l Ophthalmic 02:00: refrigerat H ermann Solution 00 ed. (Same as:Xalatan ) insulin No Notes: Memoria detemir 3-18 Same as l 22:12: Levemir Do [place] 00 not hold insulin without contacting prescriber WASTE: F/P - Black; E - [facility] Trash [facility] "single patient use only" insulin No Notes: Memoria detemir 3-18 Same as l 22:12: Levemir Do [place] 00 not hold insulin without contacting prescriber WASTE: F/P - Black; E - [facility] Trash [facility] "single patient use only" tramadol No Notes: Not Mem oria hydrochlori 3-18 to exceed l de 50 MG 22:09: 200mg/day. Her cramer Oral Tablet 00 (Same As: Ultram) tramadol No Notes: Not Mem oria hydrochlori 3-18 to exceed l de 50 MG 22:09: 200mg/day. Her cramer Oral Tablet 00 (Same As: Ultram) pregabalin No Notes: Memor ia 3-18 Same as l 22:00: Lyrica Lyrica No Notes: Memoria 3-18 (Same as: l 22:00: Lyrica) Amylases No Notes: Memoria 62937 UNT / 3-18 (lipase l Endopeptida 22:00: 60,000 [place] [address] 00 units, UNT / protease Lipase 6000 19,000 UNT Enteric units, Coated amylase Capsule 30,000 [Creon 6] units DRC) Same as: Creon (Creon 6) pregabalin No Notes: Memor ia 3-18 Same as l 22:00: Lyrica [place] 00 Lyrica No Notes: Memoria 3-18 (Same as: l 22:00: Lyrica) Amylases No Notes: Memoria 26212 UNT / 3-18 (lipase l Endopeptida 22:00: 60,000 [place] [address] 00 units, UNT / protease Lipase 6000 19,000 UNT Enteric units, Coated amylase Capsule 30,000 [Creon 6] units DRC) Same as: Creon (Creon 6) oxybutynin No Notes: Memor ia 3-18 Same as: l 18:38: Ditropan) oxybutynin No Notes: Memor ia 3-18 Same as: l 18:38: Ditropan) DULoxetine Yes 60 mg = 1 Me moria 60 mg oral 3-18 cap, PO, l delayed 18:27: Daily, # Leoncio n release 00 90 cap, 0 capsule Refill(s) omeprazole Yes 20 mg = 1 Me moria 20 mg oral 3-18 tab, PO, l enteric 18:27: Daily, # Leoncio n coated 00 30 tab, 3 tablet Refill(s) simvastatin Yes 10 mg = 1 M emoria 10 mg oral 3-18 tab, PO, l tablet 18:27: Bedtime, # Mariah nn 00 30 tab, 0 Refill(s) Amylases No 1 cap, PO, Mem oria 41054 UNT / 3-18 QID, # 120 l Endopeptida 18:27: cap, 0 [place] [address] 00 Refill(s) UNT / Lipase 6000 UNT Enteric Coated Capsule [Creon 6] calcium-vit Yes 1 tab, PO, Memoria mendez D 250 3-18 TID, 0 l mg-125 18:27: Refill(s) Leoncio n units oral 00 tablet Vitamin B Yes 1000 mcg, Mem oria 12 3-18 IM, ONCE, l 18:27: 0 [place] 00 Refill(s) finasteride Yes 5 mg = 1 Me moria 5 mg oral 3-18 tab, PO, l tablet 18:27: Daily, # [place] 00 30 tab, 0 Refill(s) metoprolol Yes 25 mg = 1 Me moria tartrate 25 3-18 tab, PO, l mg oral 18:27: BID, # 60 Mariah nn tablet 00 tab, 0 Refill(s) Lidocaine Yes 1 patch, Kashif bello Hydrochlori 3-18 TOP, l de 0.05 18:27: Daily, 0 Leoncio n MG/MG 00 Refill(s) Transdermal Patch insulin No 30 unit, Memori a detemir 3-18 SUB-Q, l 18:27: Daily, 0 [place] 00 Refill(s) pregabalin Yes 150 mg = 1 M emoria 150 mg oral 3-18 cap, PO, l capsule 18:27: TID, # 90 Mariah nn 00 cap, 0 Refill(s) Insulin, No 12 unit, Memor ia Aspart, 3-18 SUB-Q, l Human 18:27: TID-Before Leoncio n 00 Meals, 0 Refill(s) oxybutynin No 5 mg = 1 Mem oria 5 mg oral 3-18 tab, PO, l tablet 18:27: TID, PRN [place] 00 Other-See Comments, # 30 tab, 0 Refill(s) DULoxetine Yes 60 mg = 1 Me moria 60 mg oral 3-18 cap, PO, l delayed 18:27: Daily, # Leoncio n release 00 90 cap, 0 capsule Refill(s) omeprazole Yes 20 mg = 1 Me moria 20 mg oral 3-18 tab, PO, l enteric 18:27: Daily, # Leoncio n coated 00 30 tab, 3 tablet Refill(s) simvastatin Yes 10 mg = 1 M emoria 10 mg oral 3-18 tab, PO, l tablet 18:27: Bedtime, # Mariah nn 00 30 tab, 0 Refill(s) Amylases No 1 cap, PO, Mem oria 90719 UNT / 3-18 QID, # 120 l Endopeptida 18:27: cap, 0 [place] [id number] 00 Refill(s) UNT / Lipase 6000 UNT Enteric Coated Capsule [Creon 6] calcium-vit Yes 1 tab, PO, Memoria mendez D 250 3-18 TID, 0 l mg-125 18:27: Refill(s) Leoncio n units oral 00 tablet Vitamin B Yes 1000 mcg, Mem oria 12 3-18 IM, ONCE, l 18:27: 0 [place] 00 Refill(s) finasteride Yes 5 mg = 1 Me moria 5 mg oral 3-18 tab, PO, l tablet 18:27: Daily, # [place] 00 30 tab, 0 Refill(s) metoprolol Yes 25 mg = 1 Me moria tartrate 25 3-18 tab, PO, l mg oral 18:27: BID, # 60 Mariah nn tablet 00 tab, 0 Refill(s) Lidocaine Yes 1 patch, Kashif bello Hydrochlori 3-18 TOP, l de 0.05 18:27: Daily, 0 Leoncio n MG/MG 00 Refill(s) Transdermal Patch insulin No 30 unit, Memori a detemir 3-18 SUB-Q, l 18:27: Daily, 0 [place] 00 Refill(s) pregabalin Yes 150 mg = 1 M emoria 150 mg oral 3-18 cap, PO, l capsule 18:27: TID, # 90 Mariah nn 00 cap, 0 Refill(s) Insulin, No 12 unit, Memor ia Aspart, 3-18 SUB-Q, l Human 18:27: TID-Before Leoncio n 00 Meals, 0 Refill(s) oxybutynin No 5 mg = 1 Mem oria 5 mg oral 3-18 tab, PO, l tablet 18:27: TID, PRN [place] 00 Other-See Comments, # 30 tab, 0 Refill(s) Aspirin 81 Yes 81 mg = 1 Me moria MG Enteric 3-18 tab, PO, l Coated 18:11: Daily, # Joe Tablet 00 90 tab, 3 Refill(s) latanoprost No 1 drp, Kashif bello 0.05 MG/ML 3-18 Each l Ophthalmic 18:11: Affected Her cramer Solution 00 Eye, Bedtime, # 1 btl, 1 Refill(s) pregabalin No 100 mg = 1 M emoria 100 MG Oral 3-18 cap, PO, l Capsule 18:11: TID, # 90 Mariah nn [Lyrica] 00 cap, 0 Refill(s) pantoprazol Yes 40 mg, PO, Memoria e 3-18 Daily, # l 18:11: 30 tab, 0 [place] 00 Refill(s) Tamsulosin Yes 0.4 mg = 1 M emoria hydrochlori 3-18 cap, PO, l de 0.4 MG 18:11: Daily, 0 Herm annamaria Oral 00 Refill(s) Capsule [Flomax] metoprolol No BID, 0 Memor ia tartrate 3-18 Refill(s) l 18:11: [place] 00 duloxetine No PO, 0 Memori a 3-18 Refill(s) l 18:11: [place] Ibuprofen No 0 Memoria 3-18 Refill(s) l 18:11: [place] Ranitidine No 0 Memoria 3-18 Refill(s) l 18:11: Joe insulin No SUB-Q, 0 Memori a detemir 3-18 Refill(s) l 18:11: [place] 00 Aspirin 81 Yes 81 mg = 1 Me moria MG Enteric 3-18 tab, PO, l Coated 18:11: Daily, # [place] Tablet 00 90 tab, 3 Refill(s) latanoprost No 1 drp, Kashif bello 0.05 MG/ML 3-18 Each l Ophthalmic 18:11: Affected Her cramer Solution 00 Eye, Bedtime, # 1 btl, 1 Refill(s) pregabalin No 100 mg = 1 M emoria 100 MG Oral 3-18 cap, PO, l Capsule 18:11: TID, # 90 Mariah nn [Lyrica] 00 cap, 0 Refill(s) pantoprazol Yes 40 mg, PO, Memoria e 3-18 Daily, # l 18:11: 30 tab, 0 [place] 00 Refill(s) Tamsulosin Yes 0.4 mg = 1 M emoria hydrochlori 3-18 cap, PO, l de 0.4 MG 18:11: Daily, 0 Herm annamaria Oral 00 Refill(s) Capsule [Flomax] metoprolol No BID, 0 Memor ia tartrate 3-18 Refill(s) l 18:11: [place] 00 duloxetine No PO, 0 Memori a 3-18 Refill(s) l 18:11: [place] 00 Ibuprofen No 0 Memoria 3-18 Refill(s) l 18:11: [place] 00 Ranitidine No 0 Memoria 3-18 Refill(s) l 18:11: [place] insulin 2016-0 No SUB-Q, 0 Memori a detemir 3-18 Refill(s) l 18:11: Hydralazine 0 No Notes: Kashif bello 3-18 (Same as: l 17:09: Apresoline ) Push over 5 minutes Hydralazine 0 No Notes: Kashif bello 3-18 (Same as: l 17:09: Apresoline ) Push over 5 minutes Insulin 0 No 60 Memoria regular 3-18 units) l 13:25: WASTE: F/P [place] 00 - Black; E - Municipal Trash Bin Stable for 28 days at room temperatur e Expires in days from ____Date Dextrose 0 No 25 gm, 50 Kashif bello 50% Syringe 3-18 mL, Route: l 13:25: IVP, Drug [place] 00 Form: INJ, Dosing Weight 84.8, kg, PRN, PRN Blood Glucose Results, Start date: 10/10/15 8:25:00, Duration: 30 day, Stop date: 11/09/15 8:24:00 Glucagon 0 No 1 mg, Memoria 3-18 Route: IM, l 13:25: Drug form: Joe 00 PDR/INJ, PRN, Dosing Weight 84.8, kg, PRN Blood Glucose Results, Start date: 10/10/15 8:25:00, Duration: 30 day, Stop date: 11/09/15 8:24:00 Insulin 2016-0 No 60 Memoria regular 3-18 units) l 13:25: WASTE: F/P [place] - Black; E - [facility] Trash Bin Stable for 28 days at room temperatur e Expires in days from ____Date Dextrose 2015-0 No 25 gm, 50 Kashif bello 50% Syringe 3-18 mL, Route: l 13:25: IVP, Drug [place] 00 Form: INJ, Dosing Weight 84.8, kg, PRN, PRN Blood Glucose Results, Start date: 10/10/15 8:25:00, Duration: 30 day, Stop date: 11/09/15 8:24:00 Glucagon No 1 mg, Memoria 3-18 Route: IM, l 13:25: Drug form: [place] 00 PDR/INJ, PRN, Dosing Weight 84.8, kg, PRN Blood Glucose Results, Start date: 10/10/15 8:25:00, Duration: 30 day, Stop date: 11/09/15 8:24:00 Acetaminoph No Notes: Max Memoria en 3-18 acetaminop l 05:00: hen 4000 [place] 00 mg/day (4 gm/day). (Same as: Tylenol Extra Strength) Acetaminoph No Notes: Max Memoria en 3-18 acetaminop l 05:00: hen 4000 [place] 00 mg/day (4 gm/day). (Same as: Tylenol Extra Strength) Haldol No Notes: Memoria 3-18 (Same as: l 04:47: Haldol) [place] 00 Haldol No Notes: Memoria 3-18 (Same as: l 04:47: Haldol) Joe sennosides, No Notes: Kashif bello FDC 3-18 (Same as: l 02:00: Senokot) Joe Docusate No Notes: Memoria 3-18 (Same as: l 02:00: Colace) [place] (Do Not Crush) sennosides, No Notes: Kashif bello FDC 3-18 (Same as: l 02:00: Senokot) [place] Docusate No Notes: Memoria 3-18 (Same as: l 02:00: Colace) [place] (Do Not Crush) metoprolol No Notes: Memor ia tartrate 3-18 (Same as: l 00:51: Lopressor) [place] 00 metoprolol No Notes: Memor ia tartrate 3-18 (Same as: l 00:51: Lopressor) [place] 00 Oxycodone No Notes: Memori a Hydrochlori 3-17 (Same as: l de 5 MG 22:23: Roxicodone Herm annamaria Oral Tablet ) Oxycodone No Notes: Memori a Hydrochlori 3-17 (Same as: l de 5 MG 22:23: Roxicodone Herm annamaria Oral Tablet 00 ) Dextrose No 12.5 gm, Memor ia 50% Syringe 3-17 25 mL, l 22:20: Route: [place] 00 IVP, Drug Form: INJ, Dosing Weight 84.8, kg, PRN, PRN Abnormal Lab Result, Start date: 10/09/15 17:20:00, Duration: 30 day, Stop date: 11/08/15 17:19:00, For FSBG 40 mg/dL - 60 mg/dL Insulin 0 No 60 Memoria regular 3-17 units) l 22:20: WASTE: F/P [place] 00 - Black; E - Municipal Trash Bin Stable for 28 days at room temperatur e Expires in days from ____Date Dextrose No 12.5 gm, Memor ia 50% Syringe 17 25 mL, l 22:20: Route: [place] 00 IVP, Drug Form: INJ, Dosing Weight 84.8, kg, PRN, PRN Abnormal Lab Result, Start date: 10/09/15 17:20:00, Duration: 30 day, Stop date: 11/08/15 17:19:00, For FSBG 40 mg/dL - 60 mg/dL Insulin No 60 Memoria regular 3-17 units) l 22:20: WASTE: F/P [place] 00 - Black; E - Municipal Trash Bin Stable for 28 days at room temperatur e Expires in days from ____Date Isolyte S No Notes: Memori a PH 7.4 10-08 (Same as: l 1,000 mL 20:46: Isolyte S Herm annamaria 00 PH 7.4) Isolyte S No Notes: Memori a PH 7.4 10-08 (Same as: l 1,000 mL 20:46: Isolyte S Herm annamaria 00 PH 7.4) Hydromorpho No Notes: Kashif bello ne 10-08 Same as: l 19:00: Dilaudid [place] 00 Hydromorpho No Notes: Kashif bello ne 3-17 Same as: l 19:00: Dilaudid [place] 00 Dilaudid No 1 mg, Memoria 3-17 Route: l 15:12: IVP, ONCE, [place] Dosing Weight 81.818, kg, Priority: STAT, Start date: 10/09/15 10:12:00, Stop date: 10/09/15 10:12:00 Dilaudid No 1 mg, Memoria 317 Route: l 15:12: IVP, ONCE, [place] Dosing Weight 81.818, kg, Priority: STAT, Start date: 10/09/15 10:12:00, Stop date: 10/09/15 10:12:00 Hydromorpho No Notes: Kashif bello ne 3-17 Same as: l 12:55: Dilaudid [place] Hydromorpho No Notes: Kashif bello ne 3-17 Same as: l 12:55: Dilaudid [place] Fentanyl No Notes: Memoria 3-17 (Same as: l 09:26: Sublimaze) [place] 00 Preservat lisa free. Fentanyl No Notes: Memoria 3-17 (Same as: l 09:26: Sublimaze) [place] 00 Preservat lisa free. Heparin 30 No Route: Memor ia unit/kg 3-17 IVP, PRN, l Bolus 07:39: 2,200 [place] (Heparin 00 unit, 2.2 Dosing mL, Drug Weight) form: INJ, PRN, Heparin Protocol, Start date: 10/09/15 2:39:00 Stop date: 11/08/15 2:38:00, 30 day Heparin 60 No Route: Memor ia unit/kg 3-17 IVP, PRN, l Bolus 07:39: 4,400 [place] (Heparin 00 unit, 4.4 Dosing mL, Drug Weight) form: INJ, PRN, Heparin Protocol, Start date: 10/09/15 2:39:00 Stop date: 11/08/15 2:38:00 heparin No 500 mL, Memoria additive 3-17 Rate: 17.7 l 25,000 unit 07:39: ml/hr, Herm annamaria [12 00 Infuse unit/kg/hr] over: 28.2 + Premix hr, Route: Diluent IV, Dosing Dextrose 5% Weight 500 mL 73.77 kg, Total Volume: 500 mL, Start date: 10/09/15 2:39:00, Duration: 30 day, Stop date: 11/08/15 2:38:00 Heparin 30 No Route: [facility] ia unit/kg 3-17 IVP, PRN, l [place] 07:39: 2,200 [place] (Heparin 00 unit, 2.2 Dosing mL, Drug Weight) form: INJ, PRN, Heparin Protocol, Start date: 10/09/15 2:39:00 Stop date: 11/08/15 2:38:00, 30 day Heparin 60 No Route: [facility] ia unit/kg 3-17 IVP, PRN, l [place] 07:39: 4,400 [place] (Heparin 00 unit, 4.4 Dosing mL, Drug Weight) form: INJ, PRN, Heparin Protocol, Start date: 10/09/15 2:39:00 Stop date: 11/08/15 2:38:00 heparin No 500 mL, [facility] additive 3-17 Rate: 17.7 l 25,000 unit 07:39: ml/hr, Herm annamaria [12 00 Infuse unit/kg/hr] over: 28.2 + Premix hr, Route: Diluent IV, Dosing Dextrose 5% Weight 500 mL 73.77 kg, Total Volume: 500 mL, Start date: 10/09/15 2:39:00, Duration: 30 day, Stop date: 11/08/15 2:38:00 Vital Signs Vital Name Observation Time Observation Value Comments Source Respitory Rate 2016-08-18 21:09:00 Memori al [place] Systolic (mm Hg) 2016-08-18 21:09:00 Kashif rial [place] Diastolic (mm Hg) 2016-08-18 21:09:00 Mem orial [place] Systolic (mm Hg) 2016-08-18 20:00:00 Kashif rial [place] Diastolic (mm Hg) 2016-08-18 20:00:00 Mem orial [place] Respitory Rate 2016-08-18 20:00:00 [facility] al [place] Systolic (mm Hg) 2016-08-18 19:00:00 Kashif rial [place] Diastolic (mm Hg) 2016-08-18 19:00:00 Mem orial Joe Respitory Rate 2016-08-18 19:00:00 [facility] Joe Temperature Oral (F) 2016-08-18 17:51:00 98.3 F [facility] Temperature Oral (F) 2016-08-18 14:26:00 97.9 F [facility] [place] Temperature Oral (F) 2016-08-18 11:27:00 96.9 F [facility] [place] Height 2016-08-16 16:29:00 172.72 cm [facility] [place] Height 2016-08-16 14:43:00 172.72 cm [facility] Height 2016-08-16 08:55:00 172.72 cm [facility] [place] Weight 2016-08-16 07:02:00 [facility] [place] BMI Calculated 2016-08-16 07:02:00 [facility] Heart Rate 2015-10-14 17:16:00 [facility] Respitory Rate 2015-10-14 17:16:00 [facility] [place] Temperature Oral (F) 2015-10-14 17:16:00 97.8 F [facility] Systolic (mm Hg) 2015-10-14 17:16:00 Kashif rial [place] Diastolic (mm Hg) 2015-10-14 17:16:00 Mem orial [place] Respitory Rate 2015-10-14 13:12:00 [facility] [place] Systolic (mm Hg) 2015-10-14 13:12:00 Kashif rial [place] Diastolic (mm Hg) 2015-10-14 13:12:00 Mem orial [place] Temperature Oral (F) 2015-10-14 13:12:00 97.8 F [facility] [place] Heart Rate 2015-10-14 13:12:00 [facility] Respitory Rate 2015-10-14 11:26:00 [facility] [place] Systolic (mm Hg) 2015-10-14 11:26:00 Kashif rial Joe Diastolic (mm Hg) 2015-10-14 11:26:00 [facility] o[facility] Joe Temperature Oral (F) 2015-10-14 11:26:00 97.7 F [facility] Heart Rate 2015-10-14 11:26:00 [facility] [place] BMI Calculated 2015-10-09 21:00:00 [facility] Weight 2015-10-09 21:00:00 [facility] [place] Height 2015-10-09 21:00:00 172.72 cm [facility] Weight 2015-10-09 06:32:00 [facility] Height 2015-10-09 06:32:00 172.72 cm [facility] [place] BMI Calculated 2015-10-09 06:32:00 Refugio al [place] Procedures Procedure Date / Time Performed Performing Clinician [facility] [place] excision<sup>1</sup> Encounters Start End Encounter Admission Attending Care Care Encounter Source Date/Time Date/Time Type Type Clinicians Facility Department ID 2016-08-16 2016-08-18 Outpatient Michela, [facility] [id number] 00:53:00 16:10:00 Viktor Micheal 2016-08-16 2016-08-18 Outpatient Michela, [facility] [id number] 00:53:00 16:10:00 [facility] Micheal 2015-10-08 2015-10-14 Outpatient Mouser, [facility] [id number] 01:32:00 13:55:00 Leland Melendez 2015-10-08 2015-10-14 Outpatient Mouser, [facility] [id number] 01:32:00 13:55:00 Leland Melendez Results Test Description Test Time Test Comments Results Result Comments Source CHEM PANEL 2016-08-18 1.9 [facility] Mariah nn 10:45:00 CHEM PANEL 2016-08-18 9.2 [facility] Mariah nn 10:45:00 CHEM PANEL 2016-08-18 85 [facility] Mariah nn 10:45:00 CHEM PANEL 2016-08-18 14 [facility] Mariah nn 10:45:00 CHEM PANEL 2016-08-18 166 [facility] nn 10:45:00 CHEM PANEL 2016-08-18 0.92 [facility] nn 10:45:00 CHEM PANEL 2016-08-18 140 [facility] nn 10:45:00 CHEM PANEL 2016-08-18 4.1 [facility] nn 10:45:00 CHEM PANEL 2016-08-18 102 [facility] nn 10:45:00 CHEM PANEL 2016-08-18 29 [facility] Mariah nn 10:45:00 CHEM PANEL 2016-08-18 13.1 [facility] nn 10:45:00 CHEM PANEL 2016-08-18 3.7 [facility] Mariah nn 10:45:00 HEMATOLOGY 2016-08-18 158 [facility] nn 10:45:00 HEMATOLOGY 2016-08-18 9.1 [facility] nn 10:45:00 HEMATOLOGY 2016-08-18 17.0 [facility] nn 10:45:00 HEMATOLOGY 2016-08-18 32.1 [facility] nn 10:45:00 HEMATOLOGY 2016-08-18 38.7 [facility] Mar[facility] nn 10:45:00 HEMATOLOGY 2016-08-18 4.60 [facility] nn 10:45:00 HEMATOLOGY 2016-08-18 8.0 [facility] Mar[facility] nn 10:45:00 HEMATOLOGY 2016-08-18 12.4 [facility] Mariah nn 10:45:00 HEMATOLOGY 2016-08-18 10:45:00 Test Item Value Reference Range Interpretation Comme nts MCH (test code = MCH) 27.0 pg 27.0-31.0 [facility] VhsanbuSHHZQNZURM7960-44-59 10:45:0084.2[facility] HermannHEMATOLOGY 2016-08-18 10:45:0070.2[facility] HmginvjLDTXGYCOYR6062-26-51 10:45:000.3[facility] ZloaduxRBXXYIXEEK8358-59-71 10:45:000.5[facility] ToolevtBLVEAZVXFW7814-15-36 10:45:006.5[facility] IplmwgrASSNSMXCCU9369-69-48 10:45:000.3[facility] [place] BTCGVEFVUF4872-89-29 10:45:005.6[facility] JdffqkpMUMRDLJMJR1287-15-17 10:45:003.4 [facility] LozqkoiJOVCXLOBKK7376-78-26 10:45:001.6[facility] HermannHEMATOLOGY 2016-08-18 10:45:0019.6[facility] HermannCHEM JZPES7393-90-67 10:45:001.9[facility] HermannCHEM YVMSO3888-09-94 10:45:009.2[facility] HermannCHEM EZNBQ5315-65-61 10:45:0085[facility] HermannCHEM OYELE7984-59-59 10:45:0014[facility] HermannCHEM BMZZY8452-18-26 10:45:84033Smqfcgrx HermannCHEM VPRTC3328-74-80 10:45:000.92 [facility] HermannCHEM JNWMO6332-74-01 10:45:95457Dgbhinbq HermannCHEM PANEL 2016-08-18 10:45:004.1[facility] HermannCHEM VWYWX5096-26-99 10:45:81675Dtmklveb HermannCHEM FECID3629-16-39 10:45:0029[facility] HermannCHEM YSJFF3652-58-54 10:45:0013.1[facility] HermannCHEM VYQDI0166-44-01 10:45:003.7[facility] RPJRHXWFLM1427-32-65 10:45:92735Fgcfpbsy GaggjndXQDRQTVEXC8770-13-88 10:45:009.1 [facility] IlldrhbXVBBMLFXRK9167-98-26 10:45:0017.0[facility] HermannHEMATOLOGY 2016-08-18 10:45:0032.1[facility] LyygbcxBCSPBKNUZA8243-22-18 10:45:0038.7[facility] GuwogqkQFIOJPOVBY0395-10-81 10:45:004.60[facility] YyuhvorEJLJFOISAM8697-59-65 10:45:008.0[facility] KznxrxwKXXFWZLHYN4155-18-21 10:45:0012.4[facility] MCNYDWTJEX6660-45-80 10:45:00 Test Item Value Reference Range Interpretation Comments MCH (test code = MCH) 27.0 pg 27.0-31.0 [facility] PkjaqclONUKICUCIR3122-47-21 10:45:0084.2[facility] HermannHEMATOLOGY 2016-08-18 10:45:0070.2[facility] IfqbfenZDIHRGSEVN6797-15-73 10:45:000.3[facility] NgbvvcnGXEZCGLPWX7229-69-49 10:45:000.5[facility] LlbdasnXTUZZLOWKU5975-78-81 10:45:006.5[facility] ZwplbfhUKRLHEAQJU5297-40-60 10:45:000.3[facility] GPGTGXZYDV7656-98-81 10:45:005.6[facility] NtnnkatCFLDTBKLYE3907-73-32 10:45:003.4 [facility] HqunretZJMSRYJVMZ9871-05-45 10:45:001.6[facility] HermannHEMATOLOGY 2016-08-18 10:45:0019.6[facility] HermannCHEM AYMAT1543-51-65 16:29:0074[facility] HermannCHEM FLSDJ9018-91-72 16:29:001.03[facility] HermannCHEM XVCDG3660-79-24 16:29:02476Kabajlcp HermannCHEM PJPUT3474-92-12 16:29:004.3[facility] HermannCHEM FDKLC2560-02-77 16:29:34633Gecotoyr HermannCHEM IIPFZ9901-13-64 16:29:0029 [facility] HermannCHEM NZMMC7371-93-41 16:29:008.6[facility] HermannCHEM PANEL 2016-08-17 16:29:0017[facility] HermannCHEM EGWYT4095-68-65 16:29:36428Ujmiyirx HermannCHEM NMIOU6152-99-51 16:29:0011.3[facility] HermannCHEM UUNDZ8706-75-69 16:29:0074[facility]annCHEM EMOHG3571-23-72 16:29:001.03[facility] HermannCHEM KMCFG6059-05-33 16:29:70189Sufzyfsz HermannCHEM BFSOV3579-65-81 16:29:004.3 [facility]annCHEM QMSBP3215-46-41 16:29:25051Nrijngzb HermannCHEM PANEL 2016-08-17 16:29:0029[facility] HermannCHEM TRBES8744-62-70 16:29:008.6[facility] HermannCHEM QSXAQ9698-96-59 16:29:0017[facility] HermannCHEM YNJGK2496-97-46 16:29:26693Gpzpzaln HermannCHEM GPGKE9406-56-69 16:29:0011.3[facility] HermannCHEM KKBDR2243-07-05 10:01:004.2[facility] HermannCHEM TXEHI6520-75-94 10:01:003.6 [facility]annCHEM TJCCQ0866-65-42 10:01:0010.8[facility] HermannCHEM PANEL 2016-08-17 10:01:0017[facility] HermannCHEM KYSWX2961-44-53 10:01:000.8[facility] HermannCHEM VMVUM5430-07-94 10:01:0069[facility] HermannCHEM ADUVL1093-90-12 10:01:001.09[facility] HermannCHEM ALDNR4408-33-56 10:01:44192Tpseeieq HermannCHEM AYOYF0989-75-23 10:01:0019[facility] HermannCHEM QKUGG0005-67-84 10:01:0082 [facility]annCHEM BBATB1922-78-44 10:01:000.4[facility] HermannCHEM PANEL 2016-08-17 10:01:0016[facility] HermannCHEM YEWZH0554-68-29 10:01:006.5[facility] HermannCHEM XWPJT6049-41-16 10:01:008.6[facility] HermannCHEM NNXRT1489-09-15 10:01:004.8[facility] HermannCHEM FUYWW4960-20-89 10:01:90171Mnsyaejy HermannCHEM ISPVQ5583-09-10 10:01:0028[facility] HermannCHEM BGVDD8612-18-81 10:01:002.9 [facility] HermannCHEM SPOVQ6891-95-41 10:01:0012[facility] HermannCHEM PANEL 2016-08-17 10:01:72161Khzcngan HermannCHEM CGDLZ0449-28-65 10:01:001.9[facility] QtcjstyRGWRJSVEKT8514-12-22 10:01:001.18[facility] GheqivmJPPVRXNWOM5453-35-97 10:01:00 Test Item Value Reference Range Interpretation Comments PT (test code = PT) 15.3 s 12.0-14.7 [facility] FogiqbiOQDBMIFOXS4429-45-37 10:01:00 Test Item Value Reference Range Interpretation Comments PTT (test code = PTT) 66.0 s 22.9-35.8 [facility] SxbqtzaVQETMYLIWT7198-90-99 10:01:28035Sigbwrrc HermannHEMATOLOGY 2016-08-17 10:01:008.5[facility] QjtrhssLFDMZNDZIF4045-19-19 10:01:004.14[facility] EdcrepsFKLKSNXQJY1257-46-81 10:01:0034.6[facility] RywmqntHEVDKRWMUV6651-46-85 10:01:006.9[facility] GzwxomrSKCBNPWHKH0949-84-50 10:01:0083.7[facility] [place] DGLMXFLAAP5127-82-75 10:01:0017.4[facility] GioeejuKOKCYPHZBJ5000-95-06 10:01:00 33.0[facility] XvxjyxqRPRVGZBLYL2948-78-49 10:01:0011.4[facility] HermannHEMATOLOGY 2016-08-17 10:01:00 Test Item Value Reference Range Interpretation Comments MCH (test code = MCH) 27.7 pg 27.0-31.0 [facility] MmvcumdXYMCZCRNVR6654-23-97 10:01:000.5[facility] HermannHEMATOLOGY 2016-08-17 10:01:002.1[facility] QhgzkzhOOIDRCJRPN3633-26-23 10:01:000.3[facility] AoopsxvQIEIIGZRUZ2825-48-02 10:01:004.0[facility] QbvaylfXGKFUEMUCS1313-72-95 10:01:006.8[facility] ZwhwndbOOKHXBPRNC7782-48-55 10:01:000.4[facility] [place] NSYUTWGLRF8496-14-91 10:01:004.3[facility] VyqydhkFWJWRLRRNA8754-88-37 10:01:00 30.0[facility] BljzhiiSUIEWKODBO4513-26-19 10:01:0058.5[facility] HermannPARATHYROID TDNYGEB4679-02-52 10:01:001.11[facility] HermannPARATHYROID ORZWGMZ3433-80-15 10:01:001.11[facility] HermannCHEM XYALB3979-77-06 10:01:004.2[facility] HermannCHEM JEEUC6713-31-64 10:01:003.6[facility] HermannCHEM ZKWUZ5230-18-51 10:01:0010.8 [facility] HermannCHEM KYTEU9308-06-32 10:01:0017[facility] HermannCHEM PANEL 2016-08-17 10:01:000.8[facility] HermannCHEM OSMLH6390-80-65 10:01:0069[facility] HermannCHEM SCYLP1763-54-97 10:01:001.09[facility] HermannCHEM FCIZO1450-45-28 10:01:09161Qxnsqzpz HermannCHEM QMVWG1149-98-44 10:01:0019[facility] HermannCHEM ECWGK7866-07-80 10:01:0082[facility] HermannCHEM VEGOL5791-08-54 10:01:000.4 [facility] HermannCHEM WRRAX9504-29-99 10:01:0016[facility] HermannCHEM PANEL 2016-08-17 10:01:006.5[facility] HermannCHEM FJZJG9967-19-85 10:01:008.6[facility] HermannCHEM EJEIO8385-42-84 10:01:004.8[facility] HermannCHEM QGAAG5402-98-68 10:01:49524Velocdsk HermannCHEM DURZH4526-10-67 10:01:0028[facility] HermannCHEM FYONY3204-35-87 10:01:002.9[facility] HermannCHEM ODHVD2457-21-36 10:01:0012 [facility] HermannCHEM OOPJV4007-12-77 10:01:23259Wwoybmxw HermannCHEM PANEL 2016-08-17 10:01:001.9[facility] OzvzksaTXVZVDJXCO5773-73-66 10:01:001.18[facility] LawrlaqMRBDTGDWZY5966-11-75 10:01:00 Test Item Value Reference Range Interpretation Comments PT (test code = PT) 15.3 s 12.0-14.7 [facility] DelgiwcUYIDOSVSWC3358-15-56 10:01:00 Test Item Value Reference Range Interpretation Comments PTT (test code = PTT) 66.0 s 22.9-35.8 [facility] SvoqzxkCEAUYPKXPF5323-52-74 10:01:57651Imsuvpma HermannHEMATOLOGY 2016-08-17 10:01:008.5[facility] FeqfiatUUOZIQQZTE8190-38-05 10:01:004.14[facility] XabavsqROGZCQFFXF0967-54-83 10:01:0034.6[facility] UciyyjbGZSVFBPTXD3020-99-19 10:01:006.9[facility] XcwrbbkZNNNGKACGK1336-28-73 10:01:0083.7[facility] XVYHQTSPWE9610-77-87 10:01:0017.4[facility] UbmjhpxSVDIGVFJHV1485-64-40 10:01:00 33.0[facility] BrdacmiKZFCHVTVZX1329-54-59 10:01:0011.4[facility] HermannHEMATOLOGY 2016-08-17 10:01:00 Test Item Value Reference Range Interpretation Comments MCH (test code = MCH) 27.7 pg 27.0-31.0 [facility] ZweggcyDBHFAZZSQK8354-27-59 10:01:000.5[facility] HermannHEMATOLOGY 2016-08-17 10:01:002.1[facility] QoowjutJSGZLLPYUJ4857-67-03 10:01:000.3[facility] JuenjhdIVDXNGZGBU6136-64-12 10:01:004.0[facility] WmavwryZGTIJZCRZZ1517-55-80 10:01:006.8[facility] CaggrejBXTIAYZMHF9237-92-79 10:01:000.4[facility] AKHRQDFQOF1420-44-40 10:01:004.3[facility] RsahdnzLOMNJIYOHI2538-94-55 10:01:00 30.0[facility] GveidtkUTGYJRXWSG6440-70-38 10:01:0058.5[facility] HermannPARATHYROID MNSDSRD4127-78-15 10:01:001.11[facility] HermannPARATHYROID FQPFABR4141-02-71 10:01:001.11[facility] HermannCHEM TJGDN8696-90-87 23:57:004.1[facility] HermannCHEM VQBCV9209-08-62 23:57:001.8[facility] EhllpeqMQWNJKDYFX8379-42-48 23:57:00 Test Item Value Reference Range Interpretation Comments PTT (test code = PTT) 63.3 s 22.9-35.8 [facility] NwmaxplYKXUTMVSLP5603-06-88 23:57:001.17[facility] HermannHEMATOLOGY 2016-08-16 23:57:00 Test Item Value Reference Range Interpretation Comments PT (test code = PT) 15.1 s 12.0-14.7 [facility] HermannCHEM CGEBI3408-33-35 23:57:004.1[facility] HermannCHEM PANEL 2016-08-16 23:57:001.8[facility] PanprftPWHMRQDLTJ5198-54-20 23:57:00 Test Item Value Reference Range Interpretation Comments PTT (test code = PTT) 63.3 s 22.9-35.8 [facility] WgoadczUUPZECHRVR5670-16-73 23:57:001.17[facility] HermannHEMATOLOGY 2016-08-16 23:57:00 Test Item Value Reference Range Interpretation Comments PT (test code = PT) 15.1 s 12.0-14.7 [facility] HermannURINE UJSD8827-40-07 20:05:00>10[facility] HermannURINE CHEM 2016-08-16 20:05:62752Jhdpbjzc HermannURINE YFFA5494-72-39 20:05:0033.9[facility]annURINE TFJJ8609-04-01 20:05:72907Jtjhiiok HermannURINE JYCF3873-12-28 20:05:00>10[facility]annURINE PHZI7606-34-65 20:05:40334Yozjseck Joe URINE JXGX3719-78-30 20:05:0033.9[facility]annURINE PMMA9668-55-35 20:05:00 115[facility] LsdglgxATYGPACZFI0913-18-29 17:50:0071.2[facility] HermannHEMATOLOGY 2016-08-16 17:50:0018.2[facility] VkmwzlcRUENZEEIBX5234-22-21 17:50:006.8[facility] JhnkiqcFPXQPWPMVH6358-24-59 17:50:003.3[facility] XpjjjktGTETJJSBGD9860-04-82 17:50:000.5[facility] FguowbwIKYYOKKLZU3975-10-69 17:50:006.2[facility] UARNXVAOKO1013-58-31 17:50:000.6[facility] GbfobhrXMDACNHOIR5728-46-58 17:50:001.6 [facility] XvzguzgPUKFZBPSQW2456-99-65 17:50:000.3[facility] HermannHEMATOLOGY 2016-08-16 17:50:00 Test Item Value Reference Range Interpretation Comments PTT (test code = PTT) 65.2 s 22.9-35.8 [facility] CbapargJKTFNAUXDW9539-72-34 17:50:001.19[facility] HermannHEMATOLOGY 2016-08-16 17:50:00 Test Item Value Reference Range Interpretation Comments PT (test code = PT) 15.4 s 12.0-14.7 [facility] EorlbwwKMHBUVYEVE0439-28-02 17:50:008.9[facility] HermannHEMATOLOGY 2016-08-16 17:50:91284Tvzgpzub ZvksggdBUYWBCOIYU5146-06-78 17:50:0017.2[facility] UbqvmgdULJXWCLWHX5196-77-14 17:50:0032.3[facility] BigcsygUSVTNGAHRL0864-33-19 17:50:00 Test Item Value Reference Range Interpretation Comments MCH (test code = MCH) 26.8 pg 27.0-31.0 [facility] SokqfkbBBMHHSYTVA2330-77-17 17:50:0035.9[facility] HermannHEMATOLOGY 2016-08-16 17:50:0011.6[facility] MygzdtbUDAHXYMLPB7886-37-71 17:50:0083.0[facility] NtoldotCKBZBGJRPI2247-12-02 17:50:004.32[facility] AwjczvzHKPMNMYUAB4286-05-06 17:50:008.7[facility] PynmdmwFIBYQKGGNO4833-17-21 17:50:0071.2[facility] [place] LQILQBYZKI9632-62-99 17:50:0018.2[facility] PgabpwuFZWFQFMSUO7905-94-17 17:50:00 6.8[facility] SbkkzyqHBSCLLLUVM9064-99-12 17:50:003.3[facility] HermannHEMATOLOGY 2016-08-16 17:50:000.5[facility] SuczjznAKMRHZRSSE5789-84-79 17:50:006.2[facility] UnmamavFPHNXETRZH6132-99-86 17:50:000.6[facility] JzgstovJBNOFYBUVR7777-56-38 17:50:001.6[facility] LwcrjkcOUQYZZSJTI5938-67-02 17:50:000.3[facility] SVXHNQXAKG3754-68-62 17:50:00 Test Item Value Reference Range Interpretation Comments PTT (test code = PTT) 65.2 s 22.9-35.8 [facility] XtxtduqDUZNMYZNIU8772-55-77 17:50:001.19[facility] HermannHEMATOLOGY 2016-08-16 17:50:00 Test Item Value Reference Range Interpretation Comments PT (test code = PT) 15.4 s 12.0-14.7 [facility] FnodswkDTRZOXTCJU8278-03-49 17:50:008.9[facility] HermannHEMATOLOGY 2016-08-16 17:50:41584Ikvdtnak GcimcepSKGIBEGRVE1765-76-74 17:50:0017.2[facility] OblydasWNREITQXXK3475-35-22 17:50:0032.3[facility] CzegpttNWSHTIICJV1518-62-14 17:50:00 Test Item Value Reference Range Interpretation Comments MCH (test code = MCH) 26.8 pg 27.0-31.0 [facility] PfpivsvDTWKUOHNLB8412-19-85 17:50:0035.9[facility] HermannHEMATOLOGY 2016-08-16 17:50:0011.6[facility] SilineuLZINLQGVKI4965-58-16 17:50:0083.0[facility] KlgzjmyYUBAIOPRXF0369-06-72 17:50:004.32[facility] BwhoacoABWFTUTGIV3271-14-96 17:50:008.7[facility] HermannCARDIAC VWTXHLQ2686-25-20 11:16:000.13[facility] HermannCARDIAC VUIAFYN8471-95-94 11:16:0039[facility] HermannCARDIAC ENZYMES 2016-08-16 11:16:000.026[facility] HermannCHEM CASVM0739-36-07 11:16:001.5[facility] ZgjoexzUFHWSDVWM1735-16-85 11:16:0054[facility] HermannCARDIAC ELFEKRL4244-57-56 11:16:000.13[facility] HermannCARDIAC XMAXUYA3220-50-95 11:16:0039[facility] [place] CARDIAC SQLYXIX1708-83-24 11:16:000.026[facility] HermannCHEM WBSRN7749-68-67 11:16:001.5[facility] RekksppBKQOJLCPQ7441-51-23 11:16:0054[facility] HermannCHEM IXZSQ6892-99-88 07:20:002.2[facility] HermannCHEM AKYAM6727-53-39 07:20:002.2 [facility] HermannBACTERIAL - CNACDUPY9685-65-76 07:06:00Positive 1*ABN*(08/16/16 1:06 AM)[facility]BL[facility]OD B[facility] LVTNDVC9577-84-36 07:06:00Negative (08/16/16 1:06 AM)[facility] HermannCARDIAC PNHXRPF6378-99-52 07:06:000.05[facility] [place] CARDIAC OOUPGIZ0864-28-37 07:06:0040[facility] HermannCARDIAC JKZZIWF1613-29-15 07:06:00<0.010[facility] HermannCHEM ZZEJK6200-02-43 07:06:001.0[facility] HermannCHEM ETLMA3381-94-48 07:06:003.2[facility] HermannCHEM HORND8014-37-76 07:06:62757Eskhgdrc HermannCHEM JJKFC3080-13-84 07:06:006.4[facility] HermannCHEM RVGPE5379-07-27 07:06:006[facility] HermannCHEM ONGEX3891-75-52 07:06:000.4 [facility]annCHEM LZZXV3616-78-02 07:06:003.2[facility] HermannCHEM PANEL 2016-08-16 07:06:0079[facility] HermannCHEM JQYYF8872-09-67 07:06:0020[facility] KscvssmJQIJVX4639-07-14 07:06:0069[facility] MmrubjiSPCVWP9863-13-84 07:06:0050 [facility] WnjwqelGGDDIV2834-89-57 07:06:0033[facility] NrzpmcuNXHFWP9982-57-87 07:06:0026[facility] LlypcemIYMUNN4720-00-71 07:06:002.09[facility] HermannLIPIDS 2016-08-16 07:06:0010[facility] HvrpssaUHRLTCZFO2121-86-92 07:06:0037[facility] HermannPARATHYROID OMHPQGV8302-64-41 07:06:001.33[facility] HermannPARATHYROID GYCRJBS7596-11-39 07:06:001.25[facility]annSPECIAL KSCHRMDEP9774-49-02 07:06:006.5[facility]annURINE AND JYCPC1078-16-87 07:06:00Clear (08/16/16 1:06 AM)[facility] WFYCG8035-73-99 07:06:001.016[facility] CXRIE8081-71-72 07:06:005.5[facility] AYBCE1833-37-97 07:06:00Yellow *NA*(08/16/16 1:06 AM)[facility] VXLVZ4862-00-76 07:06:002[facility] AND LGXOA7295-62-63 07:06:00Negative (08/16/16 1:06 AM)[facility] ISNEZ3357-89-92 07:06:001[facility] SZUBZ2021-49-58 07:06:00Negative (08/16/16 1:06 AM)[facility] QTFVJ0833-33-35 07:06:00Negative *NA*(08/16/16 1:06 AM)[facility] WMOQZ8016-18-77 07:06:00Negative (08/16/16 1:06 AM)[facility] ZWBRM0241-02-23 07:06:004[facility]annBACTERIAL - KSHZBJZP3093-22-58 07:06:00 Positive 1*ABN*(08/16/16 1:06 AM)[facility]annBLOOD BANK EAWJEUI6039-82-66 07:06:00Negative (08/16/16 1:06 AM)[facility]annCARDIAC SMKTLVT8859-37-48 07:06:000.05[facility]annCARDIAC FUAZWNV8611-26-01 07:06:0040[facility] CARDIAC ROLVWZM4597-80-35 07:06:00<0.010[facility] HermannCHEM MLAIB1137-43-66 07:06:001.0[facility]annCHEM UITAX9749-82-57 07:06:003.2[facility] HermannCHEM KWFHE0497-63-19 07:06:00760Tdjptana HermannCHEM JTDND4254-32-05 07:06:006.4 [facility]annCHEM DBHVX2588-80-34 07:06:006[facility]annCHEM PANEL 2016-08-16 07:06:000.4[facility]annCHEM DQFPX4499-65-69 07:06:003.2[facility]annCHEM LGIAS6820-96-44 07:06:0079[facility]annCHEM YKUGR9843-73-10 07:06:0020[facility] EjxcoqgUSROLY0316-17-61 07:06:0069[facility] HermannLIPIDS 2016-08-16 07:06:0050[facility] UlcoxouKADLUR3654-87-15 07:06:0033[facility] [place] FFFNTT3819-21-50 07:06:0026[facility] JtherfoEHWMOY9622-87-89 07:06:002.09[facility] OisaffgROEYWJ1480-89-97 07:06:0010[facility] GonmwelUCUEULOST9113-04-59 07:06:0037 [facility]annPARATHYROID TRBSYRB1374-48-86 07:06:001.33[facility] PARATHYROID CJMZXJW8680-34-37 07:06:001.25[facility]annSPECIAL CHEMISTRY 2016-08-16 07:06:006.5[facility]UR[facility] AND XUUCN4250-60-33 07:06:00Clear (08/16/16 1:06 AM)[facility] FFJRK0155-39-77 07:06:001.016[facility] DGYKP8853-63-61 07:06:005.5[facility] STOOL 2016-08-16 07:06:00Yellow *NA*(08/16/16 1:06 AM)[facility] STOOL 2016-08-16 07:06:002[facility]UR[facility] AND UKZUG9796-63-87 07:06:00Negative (08/16/16 1:06 AM)[facility] KKVCT5193-93-80 07:06:001[facility]UR[facility] AND CSWQV0811-08-40 07:06:00Negative (08/16/16 1:06 AM)[facility] JFOJS1488-79-60 07:06:00Negative *NA*(08/16/16 1:06 AM)[facility] VOMPC2319-14-96 07:06:00Negative (08/16/16 1:06 AM)[facility] XOAFG9292-35-20 07:06:004[facility] HhiwgokBNWQENSELZ6332-48-95 14:35:00 Test Item Value Reference Range Interpretation Comments PT (test code = PT) 14.3 s 12.0-14.7 [facility] LohhjisUMXGYBVFZV4686-83-46 14:35:001.08[facility] HermannHEMATOLOGY 2015-10-12 14:35:00 Test Item Value Reference Range Interpretation Comments PTT (test code = PTT) 66.6 s 22.9-35.8 [facility] JcjkesiCJCUIGIXUV6877-99-20 14:35:00 Test Item Value Reference Range Interpretation Comments PT (test code = PT) 14.3 s 12.0-14.7 [facility] YdddcszPNHYEPAATC4370-10-51 14:35:001.08[facility] HermannHEMATOLOGY 2015-10-12 14:35:00 Test Item Value Reference Range Interpretation Comments PTT (test code = PTT) 66.6 s 22.9-35.8 [facility] OgekxhnGWULZNMRAH6978-79-00 08:46:001.07[facility]annHEMATOLOGY 2015-10-12 08:46:00 Test Item Value Reference Range Interpretation Comments PT (test code = PT) 14.2 s 12.0-14.7 [facility] NgcexeaQGCYFGJPWI8104-43-54 08:46:00 Test Item Value Reference Range Interpretation Comments PTT (test code = PTT) 73.4 s 22.9-35.8 [facility] VrtkyfyGDZBRKEKRP2191-58-03 08:46:001.07[facility]annHEMATOLOGY 2015-10-12 08:46:00 Test Item Value Reference Range Interpretation Comments PT (test code = PT) 14.2 s 12.0-14.7 [facility] UaasbdtBLABYDOHNL0302-67-38 08:46:00 Test Item Value Reference Range Interpretation Comments PTT (test code = PTT) 73.4 s 22.9-35.8 [facility] YurukfwSTLRVUWJXX1027-87-59 01:03:00 Test Item Value Reference Range Interpretation Comments PTT (test code = PTT) 49.7 s 22.9-35.8 [facility] RrtwtoeTBNFTEUXRF4602-13-65 01:03:00 Test Item Value Reference Range Interpretation Comments PTT (test code = PTT) 49.7 s 22.9-35.8 [facility]annCHEM ZBOGI0227-02-15 07:07:0079[facility] HermannCHEM PANEL 2015-10-11 07:07:40748Hnrjgwxd HermannCHEM YVFLO8817-45-44 07:07:008.3[facility] HermannCHEM PAJAJ0154-00-34 07:07:0024[facility] HermannCHEM XUEID8348-87-32 07:07:0012[facility] HermannCHEM BHCZU8929-18-21 07:07:000.98[facility] HermannCHEM FLMXL2962-89-29 07:07:50908Mxgscoeh HermannCHEM WFSEE3504-53-21 07:07:50845 [facility]annCHEM LNEZW0355-78-64 07:07:004.2[facility] HermannCHEM PANEL 2015-10-11 07:07:0015.2[facility] AaqpmkkJFHKJMDYRN4315-27-62 07:07:009.9[facility] UrwyluxEKJZREYRLN1370-80-26 07:07:003.40[facility] GtxgrtdKMNMOYFPAM9213-65-29 07:07:005.0[facility] AtruvpnXCZUCESWHI9626-48-25 07:07:007.9[facility] [place] ZUQRBQCHWT0334-77-18 07:07:19993Xcnzzuib YlvdnleMPHNIPPCEL8284-55-87 07:07:00 33.3[facility] TlnceiiBFIZCLAXNU7098-38-90 07:07:00 Test Item Value Reference Range Interpretation Comments MCH (test code = MCH) 29.0 pg 27.0-31.0 [facility] YefhyleCGZKDVIKRW4102-39-41 07:07:0087.0[facility]annHEMATOLOGY 2015-10-11 07:07:0029.6[facility] CpnolicJACIBYKYLK0919-59-26 07:07:0014.8[facility] HermannCHEM JHQBY7913-94-17 07:07:0079[facility]annCHEM QMEQG0664-02-49 07:07:86979Tqntynor HermannCHEM ZYPYI0427-60-85 07:07:008.3[facility] HermannCHEM QQMLS1143-72-15 07:07:0024[facility]annCHEM BRTYU9212-18-64 07:07:0012 [facility]annCHE[facility] BSYXA5237-41-29 07:07:000.98[facility]annCHEM PANEL 2015-10-11 07:07:14779Kdzevpaj HermannCHEM PANAN7527-27-45 07:07:08609Ytiaytpx HermannCHEM UYHEP9970-96-11 07:07:004.2[facility] HermannCHEM DPWPP7050-74-82 07:07:0015.2[facility] EhilnlrRLXHZMXPJZ8590-90-36 07:07:009.9[facility] [place] KIQEEIYHMB6848-05-54 07:07:003.40[facility] YqmoeuaQWVWVBOFGL4152-10-03 07:07:00 5.0[facility] SbgmbikYFJHJIVLUK8266-61-09 07:07:007.9[facility]annHEMATOLOGY 2015-10-11 07:07:12101Wllwupnx ZqhbtqwJFCEJFXPOL2655-35-69 07:07:0033.3[facility] YoffukmOXCDQRONHW9760-25-31 07:07:00 Test Item Value Reference Range Interpretation Comments MCH (test code = MCH) 29.0 pg 27.0-31.0 [facility] XqvykjiUZHXQACQCO6920-68-77 07:07:0087.0[facility]annHEMATOLOGY 2015-10-11 07:07:0029.6[facility] DsstjduBQOZLCAOSM0564-92-92 07:07:0014.8[facility] XyttokoXETJSIIGSJ9499-71-49 01:59:000.1[facility] WymdtdoNXXKIJLWJU6937-92-25 01:59:001.4[facility] XzaawtyBQAZJMHEOS3829-92-54 01:59:007.6[facility] [place] PVAIOGVMTV3918-89-40 01:59:0073.6[facility] CvvlcheLGKCFMUXQG3991-33-79 01:59:00 16.7[facility] AkfyasuGRTKOWXZXM7304-93-43 01:59:004.0[facility]annHEMATOLOGY 2015-10-11 01:59:000.4[facility] WpsypefSDWQHFYLXF9175-24-79 01:59:000.7[facility] GbuuemcMDGXHCLBPS3767-05-19 01:59:000.9[facility] ThrvbufBYQJVWRXSJ2514-45-95 01:59:0014.6[facility] PifhlibZINVXEXHUO1220-76-48 01:59:08062Uhimbjjy [place] PJYCYXQMMW6486-02-25 01:59:008.3[facility] BkroscqKACNDFJZAF7477-64-41 01:59:00 87.2[facility] XigeiomKLHVHELTEY4909-87-02 01:59:0033.4[facility]annHEMATOLOGY 2015-10-11 01:59:00 Test Item Value Reference Range Interpretation Comments MCH (test code = MCH) 29.1 pg 27.0-31.0 [facility] WaypzodRFMVTIOWRI0146-27-21 01:59:0029.6[facility]annHEMATOLOGY 2015-10-11 01:59:009.9[facility] SskzljyMPJKUWMDOV4161-18-85 01:59:005.4[facility] BlnpfgxZCQTRGZGYQ3691-26-94 01:59:003.39[facility] ComtdlbHBZINHKINE3510-75-27 01:59:000.1[facility] LfjfaukJRITIMGZXE7169-00-10 01:59:001.4[facility] [place] IUELARCTBP3590-99-50 01:59:007.6[facility] NxkfynfRJYZQLHKOK0669-66-02 01:59:00 73.6[facility] SyhjqqvVJZVKNDXLR1659-67-14 01:59:0016.7[facility]annHEMATOLOGY 2015-10-11 01:59:004.0[facility] AiuqgyiDMVJIQGGRF3849-37-78 01:59:000.4[facility] NgbhlwpIADMQBJXAE0360-06-44 01:59:000.7[facility] SkpltllZRCNIQQGXY8227-25-38 01:59:000.9[facility] HxfeytlDIGDWDVJQF4702-27-68 01:59:0014.6[facility] [place] FGCCSEKDBS8257-81-27 01:59:88743Uvtwkkpw RgwdcpgQRQUQBWHXX7021-59-83 01:59:008.3 [facility] TvhxhqrJAZJGODEHG5088-71-61 01:59:0087.2[facility]annHEMATOLOGY 2015-10-11 01:59:0033.4[facility] ShkfookZHEDDVCVPT6911-02-72 01:59:00 Test Item Value Reference Range Interpretation Comments MCH (test code = MCH) 29.1 pg 27.0-31.0 [facility] ErrzfypLKRTEDFPQO6539-38-78 01:59:0029.6[facility]annHEMATOLOGY 2015-10-11 01:59:009.9[facility] GvtcnwoQPDFQDCUOP3542-03-00 01:59:005.4[facility] EisaiibZURDBEUFRN2625-03-19 01:59:003.39[facility] HermannCHEM SFGQT1454-88-45 06:53:003.3[facility] HermannCHEM OEMDA7796-76-60 06:53:001.8[facility] [place] NMMYSVMXOJQL9837-94-39 06:53:0012.7[facility] YfytadqOGDLBHUTVXFY9515-11-32 06:53:008.2[facility] KicdhzySKGNEWSDVJBS3008-50-08 06:53:36651Ktrkieyn [place] PWRGHMWVMQWZ6962-84-13 06:53:0027[facility] YtgcqvsNCHLJBGUYPLD3950-87-82 06:53:00 4.7[facility] TbnpkmdEJLEHHDSKMRL7513-65-74 06:53:74548Prnkpbiq Joe GIRCMAPWKSES0679-43-84 06:53:0083[facility] FcdhllgXSICQGCDBULN9352-24-52 06:53:00 0.94[facility] LhtaslzCMFSTAFPXSAQ2935-88-61 06:53:0012[facility] [place] WNKSJFEZYUFQ5106-37-45 06:53:17664Rcqexaua OjrypglRPWNKQQDUE9642-02-46 06:53:00 0.1[facility] QijtwgmTHSDCCUXIN3470-33-98 06:53:000.2[facility] HermannHEMATOLOGY 2015-10-10 06:53:0019.0[facility] NwhfqlcGTDFXCPSOM3815-66-79 06:53:005.6[facility] IyphybvDEYDVYIYFV3457-35-89 06:53:0072.1[facility] SiawzkxJEMGKJBLRZ1731-08-87 06:53:000.1[facility] GjwsqdqBMFFYVOIQB1720-23-26 06:53:001.7[facility] HGNHRZPZBD6123-23-70 06:53:001.6[facility] RheelwbKJXVJLYVCX3410-26-52 06:53:000.8 [facility] ScqnqlmDJFTFFGYKA7768-34-82 06:53:003.0[facility]annHEMATOLOGY 2015-10-10 06:53:0087.7[facility] HyeifopCNGUXPZVEC6249-32-31 06:53:00 Test Item Value Reference Range Interpretation Comments MCH (test code = MCH) 29.2 pg 27.0-31.0 [facility] UhcmkspRRLAIBYJBJ3395-18-87 06:53:0015.1[facility]annHEMATOLOGY 2015-10-10 06:53:16201Bsdbujjk VkfibhkJPRMQLJFZZ4580-04-87 06:53:0033.3[facility] LmnrsgbBGEBVHGHYF6754-72-84 06:53:004.2[facility] VatsrzoNYGOKOQKEP3562-85-35 06:53:003.35[facility] QgeplmqMEWVXHQNJP6999-65-42 06:53:009.8[facility] IPKRJIDFLD3866-00-15 06:53:0029.4[facility] SkednwuZLSELFYPZJ1272-00-01 06:53:00 8.3[facility] HermannCHEM VBSMS7624-99-89 06:53:003.3[facility] HermannCHEM PANEL 2015-10-10 06:53:001.8[facility] JjwvjiwQVUMLXUOQTBI0977-26-85 06:53:0012.7 [facility] RvepcpiEZTSLUXHCONR5090-95-65 06:53:008.2[facility] HermannELECTROLYTES 2015-10-10 06:53:09235Zpojwgla XzezmxdURLNXXPBLDCN3138-00-36 06:53:0027[facility] ZvvismhHYTYTVSGIZKW7375-57-60 06:53:004.7[facility] DanpcfvHAPUURPCQUFX8553-19-08 06:53:14497Mcfqnmrw UxxtkpuLBWFVPYJYOVM8237-78-60 06:53:0083[facility] [place] MMSRAMMDVLKM9157-86-31 06:53:000.94[facility] TpsqkemKKYOFRYJDNTD4066-73-50 06:53:0012[facility] YvjfvxrWLGTBFYAHJXP8503-74-39 06:53:37364Jpoiwvdg Joe OQSMMEVDMO8353-97-70 06:53:000.1[facility] QdbevgrUAYKKRNOJU3586-88-20 06:53:000.2 [facility] TdyswphGBPXTDTCDU0755-43-51 06:53:0019.0[facility]annHEMATOLOGY 2015-10-10 06:53:005.6[facility] EcxkxmcFNBWJHKNLJ5828-53-76 06:53:0072.1[facility] HxfsowiJAIFBHGSWY7841-37-43 06:53:000.1[facility] FytvbcuPMQNOVZTOL5799-74-58 06:53:001.7[facility] JgderwjTULVZKMEKQ8801-03-70 06:53:001.6[facility] GENDLXAAFV5510-53-65 06:53:000.8[facility] HqvixxdMZIWIGXYDI9800-98-41 06:53:003.0 [facility] XnomtjqEHVADBFBZQ8216-49-43 06:53:0087.7[facility]annHEMATOLOGY 2015-10-10 06:53:00 Test Item Value Reference Range Interpretation Comments MCH (test code = MCH) 29.2 pg 27.0-31.0 [facility] FbafkdzGWEITLDZBL6482-44-05 06:53:0015.1[facility]annHEMATOLOGY 2015-10-10 06:53:43835Jdkvwbwi XtnjdneSNLKBXLECP0255-36-92 06:53:0033.3[facility] EprbwvaAMJQKCHYOO1051-58-34 06:53:004.2[facility] PlvdhxlTSSWAVWMOJ3670-40-43 06:53:003.35[facility] HhcrmhiOPHMXGXGIP5009-28-03 06:53:009.8[facility] DRAYCVMQZH7342-85-96 06:53:0029.4[facility] UumwipnDUYVOOGKNN9878-58-03 06:53:00 8.3[facility] HermannCHEM BZOHP0764-92-66 22:21:0068[facility] HermannCHEM PANEL 2015-10-09 22:21:0012[facility] HermannCHEM SICVR6146-65-71 22:21:29388Twueiwwv HermannCHEM TAQVS8984-01-18 22:21:001.11[facility]annCHEM TSNWS2018-88-27 22:21:008.2[facility] HermannCHEM SRCCP7476-56-40 22:21:0026[facility] HermannCHEM EOVIT5403-03-46 22:21:04055Jrzsodhp HermannCHEM WPDUK3568-56-57 22:21:004.6 [facility]annCHEM KGWBR4412-28-48 22:21:10739Gbpikcje HermannCHEM PANEL 2015-10-09 22:21:0014.6[facility] DkyyxtmWCKCYJMANJ1119-77-19 22:21:000.3[facility] OivtvodPVKBZDORBS7428-97-19 22:21:002.9[facility] ZvyslamUJXDQDLKFX7178-77-09 22:21:001.4[facility] LgokiqaANRMWBZNNS8935-68-79 22:21:005.5[facility] [place] EEKIZMAOIB7394-36-92 22:21:0027.4[facility] XmrgkfvISHJXLDGYB4552-54-42 22:21:00 8.3[facility] AsgupswBAKRYVUFTQ2833-59-44 22:21:0057.9[facility]annHEMATOLOGY 2015-10-09 22:21:000.9[facility] PxzxllxQXWOKFQPTD8447-25-10 22:21:000.4[facility] ObfhzwqFQWNFZZCQB7111-13-97 22:21:001.11[facility] JkzcnqzMTAVSSULFD9778-56-87 22:21:00 Test Item Value Reference Range Interpretation Comments PT (test code = PT) 14.6 s 12.0-14.7 [facility]LxuaiuaAIRYOWRKMX2633-33-96 22:21:00 Test Item Value Reference Range Interpretation Comments Split Point (test code = Split Point) 2.9 min [facility] HospitalPojhuotFEBQSDUKUH8448-37-29 22:21:00 Test Item Value Reference Range Interpretation Comments ACT (TEG) (test code = ACT (TEG)) 409 s 86-118 [facility] HospitalBqkeokcUNVBRKZVJV1137-25-97 22:21:00 Test Item Value Reference Range Interpretation Comments R-time (test code = R-time) 3.8 min 0.4-0.7 [facility] HospitalZwlsawpDHZBASXXCS2469-99-90 22:21:00Citrated Whole Blood (10/09/15 5:21 PM)[facility] CenterVnbjmcnSAGYAAYCXL8964-32-42 22:21:000.4[facility]annHEMATOLOGY 2015-10-09 22:21:0010.6[facility] OuiqtxiVKHIAPDDYX8741-72-79 22:21:00 Test Item Value Reference Range Interpretation Comments K-time (test code = K-time) 2.1 min 0.6-2.3 [facility] HospitalVnfswmlQPELRICQPT6765-78-84 22:21:00 Test Item Value Reference Range Interpretation Comments Max Amp (test code = Max Amp) 68 mm 52-71 [facility] HospitalQpgewuzISKAUJKNFV2906-72-20 22:21:00 Test Item Value Reference Range Interpretation Comments Angle (test code = Angle) 63 degrees 64-80 [facility] HermannCHEM CTJYU3145-90-34 22:21:0068[facility] HermannCHEM PANEL 2015-10-09 22:21:0012[facility] HermannCHEM KCDYM1377-76-38 22:21:66793Cdcnoony HermannCHEM OYMQV0586-82-78 22:21:001.11[facility] HermannCHEM DDQOB4051-37-95 22:21:008.2[facility] HermannCHEM ZYSWI1297-12-53 22:21:0026[facility]annCHEM UFIUA4094-98-66 22:21:03775Fliiydhc HermannCHEM FQEGW5168-05-49 22:21:004.6 [facility]annCHEM MWFYC8463-29-19 22:21:06483Nubokfqg HermannCHEM PANEL 2015-10-09 22:21:0014.6[facility] LrnrflgZKKDUQPIGT7306-53-55 22:21:000.3[facility] RedboyhIFKDGJTBJL4813-62-80 22:21:002.9[facility] RabwfsyDMJGTFDIYR2414-97-76 22:21:001.4[facility] HftwlzbTBIOYYEQPO6076-79-73 22:21:005.5[facility] Joe OFUNVVGVDP1564-02-74 22:21:0027.4[facility] EjpskozXTQRGAGNBX4541-24-58 22:21:00 8.3[facility] LsoncoiUPNACKYAWP3908-60-21 22:21:0057.9[facility] HermannHEMATOLOGY 2015-10-09 22:21:000.9[facility] UcfptaoSSMEXGQCBW5566-77-56 22:21:000.4[facility] VekrybhUBZQNVEBII1574-29-87 22:21:001.11[facility] MboggisZBRUZOCGWH7300-30-23 22:21:00 Test Item Value Reference Range Interpretation Comments PT (test code = PT) 14.6 s 12.0-14.7 [facility] HospitalDtznfwuNWJAPFNJYE6065-93-74 22:21:00 Test Item Value Reference Range Interpretation Comments Split Point (test code = Split Point) 2.9 min [facility] EzfzmegWBIGROMSNB5170-32-31 22:21:00 Test Item Value Reference Range Interpretation Comments ACT (TEG) (test code = ACT (TEG)) 409 s 86-118 [facility] HospitalRjjvteiMJVGNLTWVO5479-41-64 22:21:00 Test Item Value Reference Range Interpretation Comments R-time (test code = R-time) 3.8 min 0.4-0.7 [facility] HospitalYqbyaxbFWWPLXPCPJ7786-21-74 22:21:00Citrated Whole Blood (10/09/15 5:21 PM)[facility] HospitalBtscbscJVXUGKUBEH9610-27-70 22:21:000.4[facility]annHEMATOLOGY 2015-10-09 22:21:0010.6[facility] TiuheqyFBZXJBTFJX1006-87-37 22:21:00 Test Item Value Reference Range Interpretation Comments K-time (test code = K-time) 2.1 min 0.6-2.3 [facility] HospitalWbmxwebWQXTUORGYW2687-48-25 22:21:00 Test Item Value Reference Range Interpretation Comments Max Amp (test code = Max Amp) 68 mm 52-71 [facility] HospitalDhjdsfaTTLWZEUNKY0921-91-46 22:21:00 Test Item Value Reference Range Interpretation Comments Angle (test code = Angle) 63 degrees 64-80 [facility] HospitalAwqrobzCRZAVXWGKN7950-06-38 14:26:00Negative *NA*(10/09/15 9:26 AM) [facility] HospitalTvsafmqKHWFLGXZCX9494-50-21 14:26:00Negative *NA*(10/09/15 9:26 AM) [facility] HospitalannCHEM UISDM5417-81-36 07:13:001.4[facility] HermannCHEM PANEL 2015-10-09 07:13:001.4[facility] SrhhyhpPJRCSCHAFS1224-83-09 07:08:000.0[facility] KgvzbsuNNSEXGRJOA2142-82-27 07:08:009.0[facility] IikppfxZSTINVYNZC7433-39-71 07:08:00 Test Item Value Reference Range Interpretation Comments K-time (test code = K-time) 1.6 min 0.6-2.3 [facility] HospitalRohbwikCKKEHTKNKH0355-79-22 07:08:00 Test Item Value Reference Range Interpretation Comments R-time (test code = R-time) 1.2 min 0.4-0.7 [facility] HospitalAcsiyceXRVZQPOFCT9985-94-46 07:08:00 Test Item Value Reference Range Interpretation Comments Split Point (test code = Split Point) 0.8 min [facility] HospitalAitraxqRYIRJXECMR2157-02-87 07:08:00 Test Item Value Reference Range Interpretation Comments Max Amp (test code = Max Amp) 64 mm 52-71 [facility] HospitalWtjggqeAEFGEBHUDA4800-27-42 07:08:00 Test Item Value Reference Range Interpretation Comments Angle (test code = Angle) 68 degrees 64-[address] [facility] HospitalWoowkemRFLCBTYIYM8098-59-74 07:08:00 Test Item Value Reference Range Interpretation Comments ACT (TEG) (test code = ACT (TEG)) 167 s 86-118 [facility] FallsEuflzvwFEOKRHXBWB0628-30-15 07:08:00Citrated Whole Blood (10/09/15 2:08 AM)[facility] FallsFeccordUNIOYNYXZV7856-32-35 07:08:000.0[facility] 2015-10-09 07:08:009.0MeakriNorth[facility] CenterJeugumyPMLDTZGDFS3562-51-35 07:08:00 Test Item Value Reference Range Interpretation Comments K-time (test code = K-time) 1.6 min 0.6-2.3 [facility] FallsVaomzloBKMHLLROAJ6009-42-66 07:08:00 Test Item Value Reference Range Interpretation Comments R-time (test code = R-time) 1.2 min 0.4-0.7 [facility] FallsWvduotiKZRBHKGFIU9993-11-32 07:08:00 Test Item Value Reference Range Interpretation Comments Split Point (test code = Split Point) 0.8 min [facility] FallsLlqxrrjOIWVPRHITC3220-98-65 07:08:00 Test Item Value Reference Range Interpretation Comments Max Amp (test code = Max Amp) 64 mm 52-71 [facility] FallsLwzdwteUKAPDVNXBN6117-25-67 07:08:00 Test Item Value Reference Range Interpretation Comments Angle (test code = Angle) 68 degrees 64-80 [facility] FallsIknldcqLNEBPAEXGJ8371-79-31 07:08:00 Test Item Value Reference Range Interpretation Comments ACT (TEG) (test code = ACT (TEG)) 167 s 86-118 [facility] FallsHnczrhuKEBJKDCWUT1172-10-01 07:08:00Citrated Whole Blood (10/09/15 2:08 AM)[facility]
[2020-05-16 22:29] LABS: Absolute Lymphocytes (CBC) 0.8 K/uL (0.7-4.9); Basophils % 0.7 % (0-1.3); Hematocrit 39.2 % (39.6-49.0); Lymphocytes % 10.9 % (15.3-44.8); MPV 8.4 fL (7.6-11.3); RBC Red Blood Cell Count 4.31 M/uL (4.33-5.43)
[2020-05-16] MEDS ORDERED: CEPHALEXIN 250 MG CAP ONE (22:30)
[2020-05-16] MEDS ORDERED: SMZ./TMP. 800/160 MG TABLET ONE (22:30)
[2020-05-16] MEDS ORDERED: ONDANSETRON 4 MG/2 ML VIAL ONE (22:31)
[2020-05-16] MEDS ORDERED: FENTANYL CITR 100 MCG/2 ML ONE (22:31)
[2020-05-16 22:52] LABS: Potassium 4.1 mmol/L (3.5-5.1)
[2020-05-16] MEDS ORDERED: D50W 25 GM/50 ML SYRINGE/VIAL IV ONE (23:08)
--- NOTE | 2020-05-16 23:10 | EDPHYS ---
Physician Documentation [facility] Name: Valentín Senior Jr Age: 74 yrs Sex: Male : 1945 Arrival Date: 05/16/2020 Time: 21:39 Bed 5 Private MD: ED Physician Abdoulaye Zuniga HPI: 05/16 22:32 This 74 yrs old Male presents to ER via Wheelchair with complaints of Foot kb Pain. 22:32 the patient presents with a swollen area of the left foot. Description: erythematous, kb swollen. Onset: The symptoms/episode began/occurred 3 day(s) ago. Possible cause(s): unknown. Associated signs and symptoms: Pertinent positives: erythema, swelling, Pertinent negatives: discharge, drainage, foreign body sensation, fever, headache, nausea, shortness of breath, vomiting. Modifying factors: the symptoms are alleviated by nothing, the symptoms are aggravated by pressure. Severity of symptoms: At their worst the symptoms were mild, moderate, in the emergency department the symptoms are unchanged. The patient has not experienced similar symptoms in the past. The patient has not recently seen a physician. Pt reports blister that developed on bottom of left foot 3 days ago. Reports slight redness and swelling that started to distal aspect of foot, then pain to that area. Came in tonight for the pain.. Historical: - Allergies: 21:48 Morphine; aj1 - Home Meds: 21:48 Amiodarone Oral once daily [Active]; apixaban 5 mg Oral 1 tab 2 times per day [Active]; aj1 artificial tears(hypromellose) 0.4 % Opht drop 1 drop right for Dry Eye [Active]; atorvastatin Oral once daily [Active]; calcium 250 mg/ vitamin D 125 Tab [Active]; Creon 6,000-19,000 -30,000 unit Oral cpDR 1 cap 4 x day [Active]; docusate calcium 240 mg Oral cap 1 cap once daily [Active]; duloxetine Oral once daily [Active]; Eliquis 5 mg Oral tab 1 tab 2 times per day [Active]; finasteride 5 mg Oral tab 1 tab once daily [Active]; Furosemide Oral [Active]; insulin aspart subcutaneous daily [Active]; insulin detemir subcutaneous daily [Active]; hydroxyzine pamoate 50 mg Oral cap 1 cap at bedtime [Active]; Insulin Glargine insulin aspartate Flexpen Sub-Q 12 units before meals [Active]; latanoprost ,005 % OPH Soln [Active]; lidocaine 5% patch [Active]; loratadine 10 mg Oral tab 1 tab once daily [Active]; Lyrica Oral [Active]; metoprolol tartrate 25 mg Oral tab 0.5 tab 2 times per day [Active]; omeprazole 20 mg Oral cpDR 1 cap once daily [Active]; oxybutynin chloride 5 mg Oral tab 1 tab 3 times per day [Active]; pantoprazole 40 mg Oral TbEC 1 tab 2 times per day [Active]; simvastatin 10 mg Oral tab 1 tab once daily [Active]; tamsulosin 0.4 mg Oral cp24 1 cap once daily [Active]; tiotropium 18 mcg INHL CAP 30 daily [Active]; - PMHx: 21:48 Atrial Fib; CAD; CVA; Diabetes - IDDM; Hernia; Pacemaker; Pancreatitis; Pneumonia; aj1 - Immunization history:: Adult Immunizations up to date. - Social history:: Smoking status: Patient/guardian denies using tobacco. ROS: 22:32 Constitutional: Negative for fever, chills, and weight loss, Cardiovascular: Negative kb for chest pain, palpitations, and edema, Respiratory: Negative for shortness of breath, cough, wheezing, and pleuritic chest pain, Abdomen/GI: Negative for abdominal pain, nausea, vomiting, diarrhea, and constipation, MS/Extremity: Negative for injury and deformity, Neuro: Negative for headache, weakness, numbness, tingling, and seizure. 22:32 Skin: Positive for erythema, swelling, of the ball of left foot and dorsum of left foot, nickel sized blister. Exam: 22:32 Constitutional: This is a well developed, well nourished patient who is awake, alert, kb and in no acute distress. Head/Face: Normocephalic, atraumatic. Chest/axilla: Normal chest wall appearance and motion. Nontender with no deformity. No lesions are appreciated. Cardiovascular: Regular rate and rhythm with a normal S1 and S2. No gallops, murmurs, or rubs. Normal PMI, no JVD. No pulse deficits. Respiratory: Lungs have equal breath sounds bilaterally, clear to auscultation and percussion. No rales, rhonchi or wheezes noted. No increased work of breathing, no retractions or nasal flaring. Abdomen/GI: Soft, non-tender, with normal bowel sounds. No distension or tympany. No guarding or rebound. No evidence of tenderness throughout. MS/ Extremity: Pulses equal, no cyanosis. Neurovascular intact. Full, normal range of motion. Neuro: Awake and alert, GCS 15, oriented to person, place, time, and situation. Cranial nerves II-XII grossly intact. Motor strength 5/5 in all extremities. Sensory grossly intact. Cerebellar exam normal. Normal gait. 22:32 Skin: cellulitis, that is mild, on the ball of left foot and dorsum of left foot, blister noted to ball of left foot, nickel sized. Vital Signs: 21:40 BP 117 / 90; Pulse 74; Resp 18; Temp 97.5; Pulse Ox 94% on R/A; Weight 68.49 kg (R); aj1 Height 5 ft. 8 in. (172.72 cm) (R); Pain 0/10; 23:36 BP 125 / 90; Pulse 70; Resp 18; Temp 97.6; Pulse Ox 95% on R/A; Pain 0/10; mg2 21:40 Body Mass Index 22.96 (68.49 kg, 172.72 cm) aj1 MDM: 21:49 Patient medically screened. kb 22:32 Data reviewed: vital signs, nurses notes. Data interpreted: Pulse oximetry: on room air kb is 94 %. Interpretation: acceptable. 22:57 Counseling: I had a detailed discussion with the patient and/or guardian regarding: the kb historical points, exam findings, and any diagnostic results supporting the discharge/admit diagnosis, lab results, radiology results, the need for outpatient follow up, a family practitioner, to return to the emergency department if symptoms worsen or persist or if there are any questions or concerns that arise at home. 05/16 21:58 Order name: CBC with Diff; Complete Time: 22:32 kb 05/16 21:58 Order name: Basic Metabolic Panel; Complete Time: 22:54 kb 05/16 21:58 Order name: Blood Culture Adult (2) kb 05/16 21:58 Order name: Foot Left 3 View XRAY kb 05/16 23:33 Order name: Glucose, Ancillary Testing EDMS 05/16 21:58 Order name: IV Start; Complete Time: 22:24 kb Administered Medications: 22:23 Drug: Bactrim (160 mg-800 mg (DS) 1 tablet Route: PO; mg2 23:03 Follow up: Response: No adverse reaction mg2 22:24 Drug: fentaNYL (PF) 50 mcg Route: IVP; Site: right antecubital; mg2 23:02 Follow up: Response: No adverse reaction; Pain is decreased; RASS: Alert and Calm (0) mg2 22:24 Drug: Zofran (Ondansetron) 4 mg Route: IVP; Site: right antecubital; mg2 23:02 Follow up: Response: No adverse reaction mg2 22:24 Drug: KeFLEX 500 mg Route: PO; mg2 23:03 Follow up: Response: No adverse reaction mg2 23:01 Drug: D50W 50 ml Route: IVP; Site: right antecubital; mg2 23:37 Follow up: Response: No adverse reaction; Blood sugar is elevated mg2 Disposition: 05/16/20 23:09 Discharged to Home. Impression: Cellulitis of left lower limb, Blister (nonthermal) of foot, Hypoglycemia, unspecified. - Condition is Stable. - Discharge Instructions: Cellulitis, Adult, Pmyx-mx-Ggvw, Hypoglycemia, Jfec-lu-[id number]. - Prescriptions for Keflex 500 mg Oral Capsule - take 1 capsule by ORAL route every 8 hours for 10 days; 30 capsule. Tylenol- Codeine #3 300-30 mg Oral Tablet - take 2 tablets by ORAL route every 6 hours As needed; 16 tablet. Bactrim DS 800- 160 mg Oral Tablet - take 1 tablet by ORAL route every 12 hours for 10 days; 20 tablet. - Medication Reconciliation Form, Thank You Letter, Antibiotic Education, Prescription Opioid Use form. - Follow up: Emergency Department; When: As needed; Reason: Worsening of condition. Follow up: Private Physician; When: 2 - 3 days; Reason: Recheck today's complaints, Continuance of care, Re-evaluation by your physician. Addendum: 05/18/2020 06:47 Co-signature as Attending Physician, Abdoulaye Zuniga MD I agree with the assessment and c panda plan of care. Signatures: Dispatcher [employer] EDOK Shalini Jeffers, HEEL SEAT LASTER-C HEEL SEAT LASTER-CkDorcas Mackay RN RN aj1 Abdoulaye Zuniga MD MD cha Gardose, Michele, RN RN mg2 Corrections: (The following items were deleted from the chart) 05/16 23:38 23:09 05/16/2020 23:09 Discharged to Home. Impression: Cellulitis of left lower limb; mg2 Blister (nonthermal) of foot; Hypoglycemia, unspecified. Condition is Stable. Forms are Medication Reconciliation Form, Thank You Letter, Antibiotic Education, Prescription Opioid Use. Follow up: Emergency Department; When: As needed; Reason: Worsening of condition. Follow up: Private Physician; When: 2 - 3 days; Reason: Recheck today's complaints, Continuance of care, Re-evaluation by your physician. kb
--- NOTE | 2020-05-16 23:10 | ER ---
Nurse's Notes [facility] Name: Valentín Senior Jr Age: 74 yrs Sex: Male : 1945 Arrival Date: 05/16/2020 Time: 21:39 Bed 5 Private MD: Diagnosis: Cellulitis of left lower limb;Blister (nonthermal) of foot;Hypoglycemia, unspecified Presentation: 05/16 21:40 Chief complaint: Patient states: "I'm diabetic and I started having problems with my aj1 left foot, its hard to walk it hurts and there's a big blister on one side, its really painful." Denies drainage from blister. Denies fever. Coronavirus screen: Client denies travel out of the [place] in the last 14 days. At this time, the client does not indicate any symptoms associated with coronavirus-19. Ebola Screen: Patient denies travel to an Ebola-affected area in the 21 days before illness onset. Initial Sepsis Screen: Does the patient meet any 2 criteria? No. Patient's initial sepsis screen is negative. Does the patient have a suspected source of infection? Yes: Skin breakdown/wound. Risk Assessment: Do you want to hurt yourself or someone else? Patient reports no desire to harm self or others. Onset of symptoms was April 2020. 21:40 Method Of Arrival: Wheelchair aj1 21:40 Acuity: ILANA 3 aj1 Triage Assessment: 21:48 General: Appears in no apparent distress. comfortable, Behavior is calm, cooperative, aj1 appropriate for age. Pain: Complains of pain in left foot. Neuro: Level of Consciousness is awake, alert, obeys commands. Cardiovascular: Patient's skin is warm and dry. Respiratory: Airway is patent Respiratory effort is even, unlabored, Respiratory pattern is regular, symmetrical. Historical: - Allergies: 21:48 Morphine; aj1 - Home Meds: 21:48 Amiodarone Oral once daily [Active]; apixaban 5 mg Oral 1 tab 2 times per day [Active]; aj1 artificial tears(hypromellose) 0.4 % Opht drop 1 drop right for Dry Eye [Active]; atorvastatin Oral once daily [Active]; calcium 250 mg/ vitamin D 125 Tab [Active]; Creon 6,000-19,000 -30,000 unit Oral cpDR 1 cap 4 x day [Active]; docusate calcium 240 mg Oral cap 1 cap once daily [Active]; duloxetine Oral once daily [Active]; Eliquis 5 mg Oral tab 1 tab 2 times per day [Active]; finasteride 5 mg Oral tab 1 tab once daily [Active]; Furosemide Oral [Active]; insulin aspart subcutaneous daily [Active]; insulin detemir subcutaneous daily [Active]; hydroxyzine pamoate 50 mg Oral cap 1 cap at bedtime [Active]; Insulin Glargine insulin aspartate Flexpen Sub-Q 12 units before meals [Active]; latanoprost ,005 % OPH Soln [Active]; lidocaine 5% patch [Active]; loratadine 10 mg Oral tab 1 tab once daily [Active]; Lyrica Oral [Active]; metoprolol tartrate 25 mg Oral tab 0.5 tab 2 times per day [Active]; omeprazole 20 mg Oral cpDR 1 cap once daily [Active]; oxybutynin chloride 5 mg Oral tab 1 tab 3 times per day [Active]; pantoprazole 40 mg Oral TbEC 1 tab 2 times per day [Active]; simvastatin 10 mg Oral tab 1 tab once daily [Active]; tamsulosin 0.4 mg Oral cp24 1 cap once daily [Active]; tiotropium 18 mcg INHL CAP 30 daily [Active]; - PMHx: 21:48 Atrial Fib; CAD; CVA; Diabetes - IDDM; Hernia; Pacemaker; Pancreatitis; Pneumonia; aj1 - Immunization history:: Adult Immunizations up to date. - Social history:: Smoking status: Patient/guardian denies using tobacco. Screenin:25 Abuse screen: Denies threats or abuse. Denies injuries from another. Nutritional mg2 screening: No deficits noted. Tuberculosis screening: No symptoms or risk factors identified. Fall Risk Secondary diagnosis (15 points) CVA, IV access (20 points). Assessment: 22:10 General: Appears in no apparent distress. comfortable, Behavior is calm, cooperative. mg2 Pain: Complains of pain in left foot Pain currently is 6 out of 10 on a pain scale. Quality of pain is described as aching, Pain began gradually, 2-3 days ago. Is intermittent. Neuro: Level of Consciousness is awake, alert, obeys commands, Oriented to person, place, time, situation. Cardiovascular: Patient's skin is warm and dry. Respiratory: Airway is patent Respiratory effort is even, unlabored, Respiratory pattern is regular, symmetrical. GI: No signs and/or symptoms were reported involving the gastrointestinal system. : No signs and/or symptoms were reported regarding the genitourinary system. EENT: No signs and/or symptoms were reported regarding the EENT system. Derm: pale and clear discharge noted in the left foot. Musculoskeletal: Circulation, motion, and sensation intact. Capillary refill < 3 seconds. 23:10 Reassessment: Patient appears in no apparent distress at this time. Patient and/or mg2 family updated on plan of care and expected duration. Pain level reassessed. Patient is alert, oriented x 3, equal unlabored respirations, skin warm/dry/pink. sandwich offered and eaten by patient. Vital Signs: 21:40 BP 117 / 90; Pulse 74; Resp 18; Temp 97.5; Pulse Ox 94% on R/A; Weight 68.49 kg (R); aj1 Height 5 ft. 8 in. (172.72 cm) (R); Pain 0/10; 23:36 BP 125 / 90; Pulse 70; Resp 18; Temp 97.6; Pulse Ox 95% on R/A; Pain 0/10; mg2 21:40 Body Mass Index 22.96 (68.49 kg, 172.72 cm) aj1 ED Course: 21:39 Patient arrived in ED. bg2 21:40 [facility]alini Jeffers [facility]-C [facility]. kb 21:40 Abdoulaye Zuniga MD is Attending Physician. kb 21:45 Triage completed. aj1 21:48 Arm band placed on Patient placed in an exam room. aj1 21:52 Mc Bates, DEVON is Primary Nurse. mg2 22:00 First set of blood cultures drawn by me. Inserted saline lock: 20 gauge in right mg2 antecubital area, using aseptic technique. Blood collected. 22:15 Second set of blood cultures drawn by me. mg2 22:24 No provider procedures requiring assistance completed. mg2 22:25 Patient has correct armband on for positive identification. Pulse ox on. NIBP on. Door mg2 closed. Warm blanket given. 22:39 Foot Left 3 View XRAY In Process Unspecified. EDMS 23:38 IV discontinued, intact, bleeding controlled, No redness/swelling at site. Pressure mg2 dressing applied. Administered Medications: 22:23 Drug: Bactrim (160 mg-800 mg (DS) 1 tablet Route: PO; mg2 23:03 Follow up: Response: No adverse reaction mg2 22:24 Drug: fentaNYL (PF) 50 mcg Route: IVP; Site: right antecubital; mg2 23:02 Follow up: Response: No adverse reaction; Pain is decreased; RASS: Alert and Calm (0) mg2 22:24 Drug: Zofran (Ondansetron) 4 mg Route: IVP; Site: right antecubital; mg2 23:02 Follow up: Response: No adverse reaction mg2 22:24 Drug: KeFLEX 500 mg Route: PO; mg2 23:03 Follow up: Response: No adverse reaction mg2 23:01 Drug: D50W 50 ml Route: IVP; Site: right antecubital; mg2 23:37 Follow up: Response: No adverse reaction; Blood sugar is elevated mg2 Outcome: 23:09 Discharge ordered by MD. osborne 23:38 Discharged to home via wheelchair, with family. mg2 23:38 Condition: stable 23:38 Discharge instructions given to patient, family, Instructed on discharge instructions, follow up and referral plans. medication usage, Demonstrated understanding of instructions, follow-up care, medications, Prescriptions given X 3. 23:38 Patient left the ED. mg2 Signatures: Dispatcher [employer] EDMS Shalini Jeffers, [employer] SUPERVISOR-C [employer] SUPERVISOR-Dorcas Muhammad RN RN adams1 Cristal Botello2 Mc Bates RN RN mg2
[2020-05-16 23:47] VITALS: BP 125/90; TEMP 97.6; O2SAT 95
--- NOTE | 2020-05-17 12:16 | RAD REPORT ---
EXAM DESCRIPTION: RAD - Foot Left 3 View - 05/16/2020 10:38 pm CLINICAL HISTORY: PAIN COMPARISON: No comparisons FINDINGS: Moderate soft tissue swelling is seen along the dorsum of the forefoot. Vascular calcifica tion is evident. Flexion is noted of the great toe at the level of the interphalangeal joint. Mild ad jacent soft tissue swelling. No evidence of osteomyelitis. If clinical symptomology persists, MR in l eft foot followup would be recommended.
== END 2020-05-16 23:38 | disposition home or self-care (01) ==
LOC: ER 21:35
DX: L03.116 Cellulitis of left lower limb (principal); S90.822A Blister (nonthermal), left foot, initial encounter; E11.649 Type 2 diabetes mellitus with hypoglycemia without coma; I48.91 Unspecified atrial fibrillation; Z79.01 Long term (current) use of anticoagulants; Z79.4 Long term (current) use of insulin; Z86.73 Personal history of transient ischemic attack (TIA), and cerebral infarction without residual deficits; Z88.5 Allergy status to narcotic agent; Z95.0 Presence of cardiac pacemaker
CPT/HCPCS: 87040 ×2; 85025; 80048; 36415; 82947; 73630; 96375; 96374; 99284; J3010; J2405

== ENCOUNTER 2020-08-19 13:02 | Emergency (ER) | payer OTHER ==
--- OUTSIDE RECORDS SUMMARY | 2020-08-19 13:08 | XMS REPORT | Continuity of Care Document ---
:1945 Author Organization [facility] [employer] Emprende Care Team Providers Name Role Phone [facility] [employer] Unavailable Un available Problems Problem Status Onset Classification Date Comments Sourc e Date Reported Methicillin Active 08/16/19 Problem 08/21/2016 Nares, 08/16/2016 [facility] resistant Problem added by Dis cern Expert. 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 DYSTHYMIC DISORDER Active [facility] UNSP PHYSEAL Active [facility] s FRACTURE OF LOWER Me dical END OF UL Center Medications Medication Details Route Status Patient Ordering Order Source Instructions Provider Date bacitracin-polym Notes: (Same As: No Longer 07/26 [facility] yxin B topical Polysporin) Active 2017 Medic al [place] Neosporin 1 appl, Route: Inactive Michael as TOP, Daily, Drug 2017 Medical form: OINT, Center Start date: 08/18/16 15:07:00 LEAD PERSON, Duration: 30 day, Stop date: 09/17/16 9:00:00 LEAD PERSON apixaban 5 MG 5 mg = 1 [...] [place] mg oral capsule PO, Daily, # 2016 Medical cap, 0 Refill(s) Center Ranitidine [...] Oral Tablet PO, Daily, # 30 2016 [facility] florin tab, 0 Refill(s) Center finasteride 5 mg 5 mg = 1 tab, Inactive [place] oral tablet PO, Daily, # 30 2016 [facility] florin tab, 0 Refill(s) Center DULoxetine [...] Oral Tablet PO, Daily, # 30 2016 [facility] florin tab, 0 Refill(s) Center finasteride 5 mg 5 mg = 1 tab, Inactive [place] oral tablet PO, Daily, # 30 2016 [facility] florin tab, 0 Refill(s) Center DULoxetine [...] oral tablet PO, Daily, # 30 2016 [facility] florin tab, 0 Refill(s) Center omeprazole 20 mg 20 mg = 1 tab, Inactive [place] oral enteric PO, BID, # 30 2017 Medic al coated tablet tab, 0 Refill(s) C enter tamsulosin 0.4 0.4 mg = 1 cap, Inactive [place] mg oral capsule PO, Daily, # 30 2017 Medical cap, 0 Refill(s) Center Omeprazole PO, Daily, 0 Inactive [place] [place] Ref[place] 2017 [facility] [place] metoprolol 25 mg = 1 tab, [place] tartrate 25 mg PO, BID, # 180 2017 [place] oral tablet tab, 0 Refill(s) Geraldine [...] mg 60 mg = 1 cap, Inactive 08/18[facility] [place] oral delayed PO, Daily, # 30 [...] 2017 Medic al Injectable Over: 1 hr, [place] Solution Route: IV, 250, Drug form: INJ, ONCE, Priority: STAT, Dosing Weight 82 kg, Start date: 08/18/16 8:56:00 LEAD PERSON, Duration: 1 doses or times, Stop date: 08/18/16 8:56:00 LEAD PERSON Tylenol Notes: Do not Inactive [place] exceed 4 gm/day. 2017 Medical (Same as: [place] Tylenol) Magnesium Oxide Notes: (Same as: Inactive [facility] Mag-Ox 400) 2017 [facility] Magnesium oxide [place] [id number] elemental magnesium Dose=____mg magnesium oxide (___mg elemental magnesium) Metoprolol Notes: (Same as: Inactive [place] Lopressor) Push 2017 Medical over 2 minutes Center Robitussin 30 mg, Route: [place] Longer [place] CoughGels PO, Q6H, Dosing Active 2017 Medica l Weight 82, kg, Center Start date: 08/18/16 0:00:00 LEAD PERSON, Duration: 30 day, Stop date: 09/16/16 18:00:00 LEAD PERSON Eliquis Notes: Same as: No Longer [place] as Eliquis Active [address] [place] [address] benzocaine-menth Notes: Cepacol No Longer [facility] ol topical lozenges Active 2017 Medical Dispense 1 box = Center 16 lozenges (Same As: Cepacol Lozenges) Albuterol 0.833 Notes: (Same as: No Longer 08/18 B[place] MG/ML / Duoneb) Active 2017 [facility] Ipratropium [place] 0.167 MG/ML Inhalant Solution [DuoNeb] metoprolol Notes: (Same as: No Longer [place] tartrate Lopressor) Active 2017 Medical 12.5mg=1/4 X 50 Center mg tab. Metoprolol Notes: (Same as: Inactive [place] Lopressor) Push 2017 Medical over 2 minutes Center Acetaminophen Notes: Max Inactive Michael as acetaminophen = 2017 Medical 4000mg/day (4 Center gm/day). (Same as: Tylenol) Magnesium Oxide Notes: (Same as: Inactive [place] Mag-Ox 400) 2017 Medical Magnesium oxide Center [id number] elemental magnesium Dose=____mg magnesium oxide (___mg elemental magnesium) Tramadol Notes: Not to Inactive [place] exceed 2017 Medical 400mg/day. (Same Center As: Ultram) atorvastatin Notes: (Same as: No Longer [place] Lipitor) Active 2017 Medical Center insulin detemir Notes: Same as No Longer [place] Levemir Do not Active 2017 Medical hold insulin Center without contacting prescriber WASTE: F/P - Black; E - Municipal Trash Bin "single patient use only" Protonix Notes: Tablet Inactive [place] should not be 2017 Medical chewed or Center crushed. (Same as: Protonix) Insulin Glargine 5 unit, Route: Inactive [place] 100 UNT/ML SUB-Q, Daily, 2017 Medical Injectable Dosing Weight Center Solution 82, kg, Start date: 08/16/16 9:00:00 LEAD PERSON, Duration: 30 day, Stop date: 09/14/16 9:00:00 LEAD PERSON Docusate Sodium Notes: (Same as No Longer [place] 50 MG / Senokot-S) Active 2016 Medical sennosides, CUSTODIAL Equiv. to Center 8.6 MG Oral Nicolasa-Colace. Tablet Insulin, Aspart, Notes: Roll in No Longer [place] Human palms of hands Active 2017 Medical [...] Blood Glucose Results, Start date: 08/16/16 4:31:00 LEAD PERSON, Duration: 30 day, Stop date: 09/15/16 4:30:00 LEAD PERSON Dextrose 50% 12.5 gm, 25 mL, No Longer H [place] Syringe Route: IVP, Drug Active 2016 Medical Form: INJ, Center Dosing Weight 82, kg, PRN, PRN Blood Glucose Results, Start date: 08/16/16 4:31:00 LEAD PERSON, Duration: 30 day, Stop date: 09/15/16 4:30:00 LEAD PERSON heparin additive 500 mL, Rate: No Longer [place] 25,000 unit [14 20.68 ml/hr, Active 2016 Med ical unit/kg/hr] + Infuse over: Cente r Premix Diluent 24.2 hr, Route: Dextrose 5% 500 IV, Dosing mL Weight 73.84 kg, Total Volume: 500 mL, Start date: 08/16/16 4:31:00 LEAD PERSON, Duration: 30 day, Stop date: 09/15/16 4:30:00 LEAD PERSON Magnesium Notes: WASTE: Inactive [place] Sulfate F/P - Sink; E - 2017 [facility] Trash [place] Bin Magnesium 2 gm, Route: Inactive [place]ette Sulfate IVPB, Drug form: 2016 Medical INJ, ONCE, Center Dosing Weight 82, kg, Start date: 08/16/16 3:18:00 LEAD PERSON, Duration: 2 hr, Stop date: 08/16/16 3:18:00 LEAD PERSON Norepinephrine Notes: Not for No Longer Bette [...] Total Volume: 20, Start date: 08/16/16 1:48:00 LEAD PERSON, Durati... tramadol 50 mg = 1 tab, Active [place] hydrochloride 50 PO, Q6H, PRN 2016 Me dical MG Oral Tablet Pain Score 6-10, Center X 7 day, # 15 tab, 0 Refill(s) insulin detemir 8 unit, SUB-Q, Active [place] 100 units/mL Daily, you can 2016 [facility] subcutaneous increase your Cente r solution [...] day, # 20 tab, 0 Refill(s) Amylases 43093 1 cap, PO, BID, Active H [place] UNT / PRN snack, 0 2015 Medical Endopeptidases Refill(s) Center [address]2626 UNT / Lipase 6000 UNT Enteric Coated [...] Refill(s) Insulin, Aspart, 6 unit, SUB-Q, Active [facility] Human TID-Before 2016 Medical Meals, you can Center increase your insulin doses back to 12 units you were taking prior if your sugars are more than 200 repeatedly. You did not require your home doses in the hospital., 0 Refill(s) latanoprost 0.05 1 drp, RIGHT Active [place] MG/ML Ophthalmic EYE, Bedtime, 0 2015 Medical Solution Refill(s) Center acetaminophen 1,000 mg = 2 Active [place] 500 mg oral tab, PO, Q6H, 2016 Medica l tablet not to exceed Center 4000 mg/day, 0 Refill(s) insulin detemir Notes: Same as Inactive [place] Levemir Do not 2016 Medical hold insulin Center without contacting prescriber WASTE: F/P - Black; E - Municipal Trash Bin "single patient use only" insulin detemir Notes: Same as Inactive [place] Levemir Do not 2016 Medical [facility] insulin Center without contacting prescriber WASTE: F/P - Black; E - Municipal Trash Bin "single patient use only" Enoxaparin Notes: (Same as: No Longer [place] Lovenox) Active 2015 Medical Center Kenalog 0.1% Notes: No Longer [place] topical cream (triamcinolone Active 2015 Med ical acetonide 0.1% Center 15 gm top CRM) (Same As: Kenalog) Insulin, Aspart, Notes: Roll in No Longer [facility] Human palms of hands Active 2015 Medical gently; Do not Center shake vigorously. (Same as: NovoLOG) "single patient use only" WASTE: F/P - Black; E - Municipal Trash Bin Stable for 28 days at room temperature. Expires in days from Da te insulin detemir Notes: Same as No Longer [facility] Levemir Do not Active 2015 Medical [facility] insulin Center without contacting prescriber WASTE: F/P - Black; E - Municipal Trash Bin "single patient use only" Insulin, Aspart, Notes: Roll in No Longer [facility] Human palms of hands Active 2015 Medical gently; Do not Center shake vigorously. (Same as: NovoLOG) "single patient use only" WASTE: F/P - Black; E - Municipal Trash Bin Stable for 28 days at room temperature. Expires in days from Da te Robaxin Notes: (Same No Longer [place] as:Robaxin) Active 2016 Medical Center Flomax Notes: (Same As: [place] Longer [place] Flomax) "Do Not Active 2015 Medical Crush" [place] pantoprazole Notes: Tablet No Longer [place] should not be Active 2015 Medical chewed or Center crushed. (Same as: Protonix) Finasteride Notes: (Same as: No Longer [facility] Proscar) "Do Active 2015 Medical Not Crush" [place] Women of childbearing age should not touch or handle broken tablets duloxetine Notes: (Same as: No Longer [place] Cymbalta) (Do Active 2015 Medical Not Crush) [place] Aspirin 81 MG Notes: Do not No Longer [place] Enteric Coated crush or chew. Active 2015 Me dical Tablet (Same As: [place] Ecotrin) Amylases 14022 Notes: (lipase No Longer [place] UNT / 60,000 units, Active 2016 Medical Endopeptidases protease 19,000 C enter 88288 UNT / units, amylase Lipase 6000 UNT 30,000 units Enteric Coated DRC) Same as: Capsule [Creon Creon (Creon 6) 6] Amylases 02986 Notes: (lipase No Longer [place] UNT / 60,000 units, Active 2016 Medical Endopeptidases protease 19,000 C enter 41961 UNT / units, amylase Lipase 6000 UNT 30,000 units Enteric Coated DRC) Same as: Capsule [Creon Creon (Creon 6) 6] Simvastatin Notes: (Same as: No Longer [facility] Zocor) Active 2016 [facility] Melatonin 3 MG Notes: (Same as: No Longer [place] Extended Release Melatonin) Active 2016 Medi florin Tablet Center latanoprost 0.05 Notes: Keep No Longer [facility] MG/ML Ophthalmic refrigerated. Active 2015 edical Solution (Same Center as:Xalatan) insulin detemir Notes: Same as No Longer [place] Levemir Do not Active 2015 Medical [facility] insulin Center without contacting prescriber WASTE: F/P - Black; E - Municipal Trash Bin "single patient use only" tramadol Notes: Not to [place] Longer [place] hydrochloride 50 exceed Active 2015 Medical MG Oral Tablet 200mg/day. (Same Center As: Ultra) pregabalin Notes: Same as No Longer [place] Lyrica Active 2016 Medical Center Lyrica Notes: (Same as: Inactive [place] as Lyrica) 2016 Medical Center Amylases 28294 Notes: (lipase No Longer [place] UNT / 60,000 units, Active 2015 Medical Endopeptidases protease 19,000 C enter 68607 UNT / units, amylase Lipase 6000 UNT 30,000 units Enteric Coated DRC) Same as: Capsule [Creon Creon (Creon 6) 6] oxybutynin Notes: Same as: No Longer [facility] Ditropan) Active 2015 Medical Center DULoxetine 60 mg 60 mg = 1 cap, Active [facility] oral delayed PO, Daily, # 90 2016 Med ical release capsule cap, 0 Refill(s) Center omeprazole 20 mg 20 mg = 1 tab, Active [facility] oral enteric PO, Daily, # 30 2016 Med ical coated tablet tab, 3 Refill(s) C enter simvastatin 10 10 mg = 1 tab, Active [facility] mg oral tablet PO, Bedtime, # 2016 Me dical 30 tab, 0 Center Refill(s) Amylases 94532 1 cap, PO, QID, No Longer [facility] UNT / # 120 cap, 0 Active 2015 Medical Endopeptidases Refill(s) Center 86053 UNT / Lipase 6000 UNT Enteric Coated Capsule [Creon 6] calcium-vitamin 1 tab, PO, TID, Active [facility] D 250 mg-125 0 Refill(s) 2016 Medical [...] Geraldine ter Lidocaine 1 patch, TOP, Active [place] Hydrochloride Daily, 0 2016 Medical 0.05 MG/MG Refill(s) [place] Transdermal Patch insulin detemir 30 unit, SUB-Q, No Longer [place] Daily, 0 Active 2016 Medical Refill(s) [place] pregabalin 150 150 mg = 1 cap, Active 10/09/ M H [place] mg oral capsule PO, TID, # 90 2016 [place] cap, 0 Refill(s) [place] Insulin, Aspart, 12 unit, SUB-Q, No Longer 10/09 [place] Human TID-Before Active 2015 Medical Meals, 0 Center Refill(s) oxybutynin 5 mg 5 mg = 1 tab, No Longer [place] oral tablet PO, TID, PRN Active 2015 Medical Other-See Center Comments, # 30 tab, 0 Refill(s) Aspirin 81 MG 81 mg = 1 tab, Active [place] Enteric Coated PO, Daily, # 90 2016 edical Tablet tab, 3 Refill(s) [place] latanoprost 0.05 1 drp, Each No Longer 10/09/ H [place] MG/ML Ophthalmic Affected Eye, Active 2015 edical Solution Bedtime, # 1 Center btl, 1 Refill(s) pregabalin 100 100 mg = 1 cap, Inactive [place] MG Oral Capsule PO, TID, # 90 2016 [place] [Lyrica] cap, 0 Refill(s) [place] pantoprazole 40 mg, PO, Active [place] Daily, # 30 tab, 2016 Medical 0 Refill(s) [place] Tamsulosin 0.4 mg = 1 cap, Active [place] hydrochloride PO, Daily, 0 2016 Medic al 0.4 MG Oral Refill(s) [place] Capsule [Flomax] metoprolol BID, 0 Refill(s) Inactive [facility] tartrate 2015 [facility] duloxetine PO, 0 Refill(s) Inactive [place] 2015 [facility] Ibuprofen 0 Refill(s) Inactive [place] 2016 [facility] Ranitidine 0 Refill(s) [place] Longer [place] Active 2016 [facility] insulin detemir SUB-Q, 0 Inactive Michael as Refill(s) 2016 [facility] Hydralazine Notes: (Same as: No Longer [facility] Apresoline) Push Active 2015 Medical over 5 minutes Center Insulin regular 60 units) No Longer [place] WASTE: F/P - Active 2016 Medical Black; E - Center Municipal Trash Bin Stable for 28 days at room temperature Expires in days from Da te Dextrose 50% 25 gm, 50 mL, No Longer [place] Syringe Route: IVP, Drug Active 2015 Medical [...] [place] Haldol) Active 2015 Medical Center sennosides, CUSTODIAL Notes: (Same as: No Longer 10/09 [place] Senokot) Active 2015 Medical [place] Docusate Notes: (Same as: No Longer [place] Colace) (Do Not Active 2015 [facility] Crush) Center metoprolol Notes: (Same as: No Longer [place] tartrate Lopressor) Active 2015 Medical [place] Oxycodone Notes: (Same as: No Longer [place] Hydrochloride 5 Roxicodone) Active 2015 Medi florin MG Oral Tablet Center Dextrose 50% 12.5 gm, 25 mL, No Longer [facility] Syringe Route: IVP, Drug Active 2015 Medical Form: INJ, Center Dosing Weight 84.8, kg, PRN, PRN Abnormal Lab Result, Start date: 10/09/15 17:20:00, Duration: 30 day, Stop date: 11/08/15 17:19:00, For FSBG 40 mg/dL - 60 mg/dL Insulin regular 60 units) No Longer Bette WASTE: F/P - Active 2016 Medical Black; E - Center Municipal Trash Bin Stable for 28 days at room temperature Expires in days from Da te Isolyte S PH 7.4 Notes: (Same as: No Longer 09/22 [facility] 1,000 mL Isolyte S PH Active 2016 [facility] 7.4) Center Hydromorphone Notes: Same as: Inactive [facility] Dilaudid 2016 [facility] Dilaudid 1 mg, Route: Inactive [facility] IVP, ONCE, 2016 Medical Dosing Weight Center 81.818, kg, Priority: STAT, Start date: 10/09/15 10:12:00, Stop date: 10/09/15 10:12:00 Hydromorphone Notes: Same as: Inactive [facility] Dilaudid [address] [place] [address] Center Fentanyl Notes: (Same as: Inactive [facility] [place] Sublimaze) 2016 Medical Preservative Center free. Heparin 30 Route: IVP, PRN, No Longer [facility] unit/kg Bolus 2,200 unit, 2.2 Active 2015 [place] (Heparin Dosing mL, Drug form: C enter Weight) INJ, PRN, Heparin Protocol, Start date: 10/09/15 2:39:00 Stop date: 11/08/15 2:38:00, 30 day Heparin 60 Route: IVP, PRN, No Longer [facility] unit/kg Bolus 4,400 unit, 4.4 Active 2015 [place] (Heparin Dosing mL, Drug form: C enter Weight) INJ, PRN, Heparin Protocol, Start date: 10/09/15 2:39:00 Stop date: 11/08/15 2:38:00 heparin additive 500 mL, Rate: No Longer [facility] 25,000 unit [12 17.7 ml/hr, Active 2015 [...] ource type Reported morphine Assertion Drug Active [facility] Immunizations No Data Provided for This Section Results Order Name Results Value Reference Date Interpretation Comments Chelly rce Range CHEM PANEL Magnesium Lvl 1.9 1.8 - 2.4 08/18 [facility] CHEM PANEL Calcium Lvl 9.2 8.5 - 10.5 08/18 [facility] CHEM PANEL eGFR 85 08/18 Result [...] not recommended in the following populations:< br/>
Lor[place] viduals with unstable creatinine concentration s, including [...] PANEL BUN 14 7 - 22 08/18 [facility] CHEM PANEL Glucose Lvl 166 70 - 99 08/18 [facility] CHEM PANEL Creatinine 0.92 0.50 - 08/18 [facility] Lvl 1.40 [facility] CHEM PANEL Sodium Lvl 140 135 - 145 08/18 2016 [facility] CHEM PANEL Potassium Lvl 4.1 3.5 - 5.1 08/18 [facility] CHEM PANEL Chloride Lvl 102 95 - 109 08/18 a [facility] CHEM PANEL CO2 29 24 - 32 08/18 2016 [facility] CHEM PANEL AGAP 13.1 10.0 - 0125 [place] 20.0 [facility] CHEM PANEL Phosphorus 3.7 2.5 - 4.5 08/18 [facility] HEMATOLOGY Platelet 158 133 - 450 08/18 [facility] HEMATOLOGY MPV 9.1 7.4 - 10.4 08/18 [facility] HEMATOLOGY RDW 17.0 11.5 - 08/18 [place] 14.5 [facility] HEMATOLOGY MCHC 32.1 32.0 - 08/18 [place] 36.0 [facility] HEMATOLOGY Hct 38.7 42.0 - 08/18 [place] 54.0 [facility] HEMATOLOGY RBC 4.60 4.70 - 08/18 [place] 6.10 [facility] HEMATOLOGY WBC 8.0 3.7 - 10.4 08/18 [facility] HEMATOLOGY Hgb 12.4 14.0 - 08/18 18.0 [facility] HEMATOLOGY MCH 27.0 27.0 - 08/18 31.0 [facility] HEMATOLOGY MCV 84.2 80.0 - 08/18 94.0 [facility] HEMATOLOGY Segs 70.2 45.0 - 08/18 [place] 75.0 [facility] HEMATOLOGY Eosinophils # 0.3 0.0 - 0.5 08/18 [facility] HEMATOLOGY Monocytes # 0.5 0.0 - 0.8 08/18 [facility] HEMATOLOGY Monocytes 6.5 2.0 - 12.0 08/18 [facility] HEMATOLOGY Basophils 0.3 0.0 - 1.0 08/18 [facility] HEMATOLOGY Segs-Bands # 5.6 1.5 - 8.1 08/18 [facility] HEMATOLOGY Eosinophils 3.4 0.0 - 4.0 08/18 [facility] HEMATOLOGY Lymphocytes # 1.6 1.0 - 5.5 08/18 [facility] HEMATOLOGY Lymphocytes 19.6 20.0 - 08/18 [place] 40.0 [facility] CHEM PANEL eGFR 74 08/17 Result [...] CHEM PANEL Creatinine 1.03 0.50 - 08/17 [facility] Lvl 1.40 [facility] CHEM PANEL Sodium Lvl 139 135 - 145 08/[address] CHEM PANEL Potassium Lvl 4.3 3.5 - 5.1 08/17 [place] [facility] CHEM PANEL Chloride Lvl 103 95 - 109 08/17 [facility] s [facility] CHEM PANEL CO2 29 24 - 32 08/[address] CHEM PANEL Calcium Lvl 8.6 8.5 - 10.5 08/17 [facility] CHEM PANEL BUN 17 7 - 22 08/[address] CHEM PANEL Glucose Lvl 226 70 - 99 08/[address] CHEM PANEL AGAP 11.3 10.0 - 08/17 [facility] . [facility] CHEM PANEL Phosphorus 4.2 2.5 - 4.5 08/[address] CHEM PANEL Globulin 3.6 2.7 - 4.2 08/[address] CHEM PANEL AGAP 10.8 10.0 - 08/17 [facility] .0 [facility] CHEM PANEL B/C Ratio 17 6 - 25 08/[address] CHEM PANEL A/G Ratio 0.8 0.7 - 1.6 08/[address] CHEM PANEL eGFR 69 08/17 [facility] Comment: The Medical eGFR is Center calculated [...] CHEM PANEL Creatinine 1.09 0.50 - 08/17 [facility] Lvl 1.40 [facility] CHEM PANEL Sodium Lvl 138 135 - 145 08/[address] CHEM PANEL BUN 19 7 - 22 08/[address] CHEM PANEL Alk Phos 82 39 - 136 08/[address] CHEM PANEL Bili Total 0.4 0.2 - 1.3 08/[address] CHEM PANEL AST 16 0 - 37 08/[address] CHEM PANEL Total Protein 6.5 6.4 - 8.4 08/17 [facility] CHEM PANEL Calcium Lvl 8.6 8.5 - 10.5 08/17 [facility] CHEM PANEL Potassium Lvl 4.8 3.5 - 5.1 08/17 [facility] CHEM PANEL Chloride Lvl 104 95 - 109 08/17 [facility] 2016 [facility] CHEM PANEL CO2 28 24 - 32 08/[address] CHEM PANEL Albumin Lvl 2.9 3.5 - 5.0 08/17 [facility] 2016 [facility] CHEM PANEL ALT 12 0 - 65 08/[address] CHEM PANEL Glucose Lvl 220 70 - 99 08/[address] CHEM PANEL Magnesium Lvl 1.9 1.8 - 2.4 08/[address] HEMATOLOGY INR 1.18 0.85 - 08/17 [facility] 1.17 [facility] HEMATOLOGY PT 15.3 12.0 - 08/17 [place] 14.7 [facility] HEMATOLOGY PTT 66.0 22.9 - 08/17 [place] 35.8 [facility] HEMATOLOGY Platelet 141 133 - 450 08/17 [facility] HEMATOLOGY MPV 8.5 7.4 - 10.4 08/17 [facility] HEMATOLOGY RBC 4.14 4.70 - 08/17 [place] 6.10 [facility] HEMATOLOGY Hct 34.6 42.0 - 08/17 [place] 54.0 [facility] HEMATOLOGY WBC 6.9 3.7 - 10.4 08/17 [facility] HEMATOLOGY MCV 83.7 80.0 - 08/17 [place] 94.0 [facility] HEMATOLOGY RDW 17.4 11.5 - 08/17 14.5 [facility] HEMATOLOGY MCHC 33.0 32.0 - 08/17 [place] 36.0 [facility] HEMATOLOGY Hgb 11.4 14.0 - 08/17 18.0 [facility] HEMATOLOGY MCH 27.7 27.0 - 08/17 [place] 31.0 [facility] HEMATOLOGY Monocytes # 0.5 0.0 - 0.8 08/17 [facility] HEMATOLOGY Lymphocytes # 2.1 1.0 - 5.5 08/17 [facility] HEMATOLOGY Eosinophils # 0.3 0.0 - 0.5 08/17 [place] [facility] HEMATOLOGY Segs-Bands # 4.0 1.5 - 8.1 08/17 [facility] HEMATOLOGY Monocytes 6.8 2.0 - 12.0 08/17 [facility] HEMATOLOGY Basophils 0.4 0.0 - 1.0 08/17 [facility] HEMATOLOGY Eosinophils 4.3 0.0 - 4.0 08/17 [facility] HEMATOLOGY Lymphocytes 30.0 20.0 - 08/17 [place] 40.0 [facility] HEMATOLOGY Segs 58.5 45.0 - 08/17 [place] 75.0 [facility] PARATHYROID Ca Ion WB 1.11 1.05 - 08/17 [place] PROFILE . [facility] PARATHYROID Ca Norm WB 1.11 1.05 - 08/17 [place] PROFILE 08.18 [facility] CHEM PANEL Phosphorus 4.1 2.5 - 4.5 08/16 [facility] CHEM PANEL Magnesium Lvl 1.8 1.8 - 2.4 08/16 [facility] HEMATOLOGY PTT 63.3 22.9 - 08/16 35. [facility] HEMATOLOGY INR 1.17 0.85 - 08/16 . [facility] HEMATOLOGY PT 15.1 12.0 - 08/16 . [facility] URINE CHEM U Magnesium >10 08/16 Result Comment: [facility] result was 24.4 notified Roshan Looney 08/17/2016 21:27. URINE CHEM U Chloride 143 08/16 [facility] URINE CHEM U Potassium 33.9 08/16 [facility] URINE CHEM U Sodium 115 08/16 [facility] HEMATOLOGY Segs 71.2 45.0 - 08/16 75.0 [facility] HEMATOLOGY Lymphocytes 18.2 20.0 - 08/16 40.0 [facility] HEMATOLOGY Monocytes 6.8 2.0 - 12.0 08/16 [facility] HEMATOLOGY Eosinophils 3.3 0.0 - 4.0 08/16 [facility] HEMATOLOGY Basophils 0.5 0.0 - 1.0 08/16 [facility] HEMATOLOGY Segs-Bands # 6.2 1.5 - 8.1 08/16 [facility] HEMATOLOGY Monocytes # 0.6 0.0 - 0.8 08/16 [facility] HEMATOLOGY Lymphocytes # 1.6 1.0 - 5.5 08/16 [facility] HEMATOLOGY Eosinophils # 0.3 0.0 - 0.5 08/16 [facility] HEMATOLOGY PTT 65.2 22.9 - 08/16 35. [facility] HEMATOLOGY INR 1.19 0.85 - 08/16 08.10 [facility] HEMATOLOGY PT 15.4 12.0 - 08/16 14. [facility] HEMATOLOGY MPV 8.9 7.4 - 10.4 08/16 [facility] HEMATOLOGY Platelet 150 133 - 450 08/16 [facility] HEMATOLOGY RDW 17.2 11.5 - 08/16 [place] 14.5 /2016 [facility] HEMATOLOGY MCHC 32.3 32.0 - 08/16 [place] 36.0 /2016 [facility] HEMATOLOGY MCH 26.8 27.0 - 08/16 [place] 31.0 /2016 [facility] HEMATOLOGY Hct 35.9 42.0 - 08/16 [place] 54.0 /2016 [facility] HEMATOLOGY Hgb 11.6 14.0 - 08/16 [place] 18.0 [facility] HEMATOLOGY MCV 83.0 80.0 - 08/16 [place] 94.0 /2016 [facility] HEMATOLOGY RBC 4.32 4.70 - 08/16 [place] 6.10 /2016 [facility] HEMATOLOGY WBC 8.7 3.7 - 10.4 08/16 /2016 [facility] CARDIAC Troponin-I 0.13 0.00 - 08/16 [place] ENZYMES 0.40 [facility] CARDIAC Total CK 39 12 - 191 08/16 [facility] ENZYMES /2016 [facility] CARDIAC Troponin-T 0.026 0.000 - 08/16 [place] ENZYMES 0.100 [facility] CHEM PANEL Lactic Acid 1.5 0.5 - 2.2 08/16 [place] [facility] MYOGLOBIN Myoglobin 54 25 - 72 08/16 [facility] CHEM PANEL Lactic Acid 2.2 0.5 - 2.2 08/16 [place] [facility] BACTERIAL - MRSA by PCR Positive 1 08/16 [place] SER[place] *ABN* /2016 Comment: Medical (08/16/16 1:06 AM) "Significant C enter Findings called to Kya Krishna on 08/16/2016 at 13:44 by AMRIO.Read Back OK." BLOOD BANK Antibody Scrn Negative 08/16 [place] RESULTS (08/16/16 1:06 AM) [facility] BLOOD BANK ABO/Rh A NEG 08/16 [place] RESULTS /2016 [facility] CARDIAC Troponin-I 0.05 0.00 - 08/16 [place] ENZYMES 0.40 [facility] CARDIAC Total CK 40 12 - 191 08/16 [place] ENZYMES /2016 [facility] CARDIAC Troponin-T <0.010 0.000 - 08/16 [facility] ENZYMES 0.100 [facility] CHEM PANEL A/G Ratio 1.0 0.7 - 1.6 08/16 [facility] CHEM PANEL Globulin 3.2 2.7 - 4.2 08/16 [facility] CHEM PANEL B/C Ratio 115 6 - 25 08/16 [facility]2016 [facility] CHEM PANEL Total Protein 6.4 6.4 - 8.4 08/16 [place] [facility] CHEM PANEL AST 6 0 - 37 08/16 [facility]2016 [facility] CHEM PANEL Bili Total 0.4 0.2 - 1.3 08/16 [facility] CHEM PANEL Albumin Lvl 3.2 3.5 - 5.0 08/16 [place] [facility] CHEM PANEL Alk Phos 79 39 - 136 08/16 [facility] CHEM PANEL ALT 20 0 - 65 08/16 [facility] LIPIDS Chol 69 <=199 08/16 [facility] mg/dL [facility] LIPIDS Trig 50 <=149 08/16 [facility] mg/dL [facility] LIPIDS HDL 33 >=61 mg/dL 08/16 [facility] LIPIDS LDL 26 <=99 mg/dL 08/16 [facility] (Calculated) [facility] LIPIDS CHD Risk 2.09 4.00 - 08/16 [place] 7.30 [facility] LIPIDS VLDL 10 08/16 [facility] MYOGLOBIN Myoglobin 37 25 - 72 08/16 [facility] PARATHYROID Ca Ion WB 1.33 1.05 - 08/16 [place] PROFILE 1. [facility] PARATHYROID Ca Norm WB 1.25 1.05 - 08/16 [place] PROFILE 1. [facility] SPECIAL Hgb A1C 6.5 <=5.6 % 08/16 [facility] CHEMISTRY [facility] URINE AND UA <=1.0 0.1 - 1.0 08/16 [facility] STOOL Urobilinogen mg/dL [facility] URINE AND UA Turbidity Clear Clear 08/16 [facility] STOOL (08/16/16 1:06 AM) /2016 [facility] URINE AND UA Spec Grav 1.016 <=1.030 08/16 [facility] STOOL [facility] URINE AND UA Protein Negative Negative 08/16 [facility] STOOL mg/dL mg/dL [facility] URINE AND UA pH 5.5 5.0 - 8.0 08/16 [facility] URINE AND UA Color Yellow Yellow 08/16 [facility] STOOL *NA* /2016 [facility] (08/16/16 1:06 AM) [place] URINE AND UA CaOx Kelli Occasional None Seen 08/16 [place] STOOL /HPF /HPF [facility] URINE AND UA WBC 2 0 - 5 08/16 [facility] URINE AND UA Mucus Few /LPF None Seen 08/16 [facility] STOOL /LPF /2016 [facility] URINE AND UA Leuk Est Negative Negative 08/16 [facility] (08/16/16 1:06 AM) /2016 [facility] URINE AND UA RBC 1 0 - 2 08/16 [facility] URINE AND UA Blood Negative Negative 08/16 [facility] (08/16/16 1:06 AM) [facility] URINE AND UA Glucose 50 mg/dL Negative 08/16 [facility] mg/dL /2016 [facility] URINE AND UA Bili Negative Negative 08/16 [facility] *NA* /2016 [facility] (08/16/16 1:06 AM) [place] URINE AND UA Ketones Negative Negative 08/16 [facility] mg/dL mg/dL [facility] URINE AND UA Nitrite Negative Negative 08/16 [facility] (08/16/16 1:06 AM) /2016 [facility] URINE AND UA Sq Epi None Seen 08/16 [facility] URINE AND UA Hyal Cast 4 0 - 2 08/16 [facility] HEMATOLOGY PT 14.3 12.0 - 10/11 [place] 14. [facility] HEMATOLOGY INR 1.08 0.85 - 10/11 [place] . [facility] HEMATOLOGY PTT 66.6 22.9 - 10/11 [place] 35.8 [facility] HEMATOLOGY INR 1.07 0.85 - 10/11 [place] 1. [facility] HEMATOLOGY PT 14.2 12.0 - 10/11 [place] 14. [facility] HEMATOLOGY PTT 73.4 22.9 - 10/11 [place] 35.8 [facility] HEMATOLOGY PTT 49.7 22.9 - 10/11 [place] 35. [facility] CHEM PANEL eGFR 79 10/10 Result [...] Glucose Lvl 167 70 - 99 10/10 [facility] CHEM PANEL Calcium Lvl 8.3 8.5 - 10.5 10/10 [facility] CHEM PANEL CO2 24 24 - 32 10/10 [facility] CHEM PANEL BUN 12 7 - 22 10/10 [facility] CHEM PANEL Creatinine 0.98 0.50 - 10/10 [facility] Lvl 1.40 [facility] CHEM PANEL Chloride Lvl 103 95 - 109 10/10 [facility] CHEM PANEL Sodium Lvl 138 135 - 145 10/10 [facility] CHEM PANEL Potassium Lvl 4.2 3.5 - 5.1 10/10 [place] [facility] CHEM PANEL AGAP 15.2 10.0 - 10/10 [place] 20.0 [facility] HEMATOLOGY Hgb 9.9 14.0 - 10/10 [place] 18.0 [facility] HEMATOLOGY RBC 3.40 4.70 - 10/10 [place] 6.10 [facility] HEMATOLOGY WBC 5.0 3.7 - 10.4 10/10 [facility] HEMATOLOGY MPV 7.9 7.4 - 10.4 10/10 [facility] HEMATOLOGY Platelet 218 133 - 450 10/10 [facility] HEMATOLOGY MCHC 33.3 32.0 - 10/10 [place] 36.0 [facility] HEMATOLOGY MCH 29.0 27.0 - 10/10 [place] 31.0 [facility] HEMATOLOGY MCV 87.0 80.0 - 10/10 94.0 [facility] HEMATOLOGY Hct 29.6 42.0 - 10/10 54.0 [facility] HEMATOLOGY RDW 14.8 11.5 - 10/10 14.5 [facility] HEMATOLOGY Eosinophils # 0.1 0.0 - 0.5 10/10 [facility] HEMATOLOGY Eosinophils 1.4 0.0 - 4.0 10/10 [facility] HEMATOLOGY Monocytes 7.6 2.0 - 12.0 10/10 [facility] HEMATOLOGY Segs 73.6 45.0 - 10/10 [place] 75.0 [facility] HEMATOLOGY Lymphocytes 16.7 20.0 - 10/10 [place] 40.0 [facility] HEMATOLOGY Segs-Bands # 4.0 1.5 - 8.1 10/10 [facility] HEMATOLOGY Monocytes # 0.4 0.0 - 0.8 10/10 [facility] HEMATOLOGY Basophils 0.7 0.0 - 1.0 10/10 [facility] HEMATOLOGY Lymphocytes # 0.9 1.0 - 5.5 10/10 [facility] HEMATOLOGY RDW 14.6 11.5 - 10/10 14. [facility] HEMATOLOGY Platelet 206 133 - 450 10/10 [facility] HEMATOLOGY MPV 8.3 7.4 - 10.4 10/10 [facility] HEMATOLOGY MCV 87.2 80.0 - 10/10 94.0 [facility] HEMATOLOGY MCHC 33.4 32.0 - 10/10 [place] 36.0 [facility] HEMATOLOGY MCH 29.1 27.0 - 10/10 31.0 [facility] HEMATOLOGY Hct 29.6 42.0 - 10/10 54.0 2016 [facility] HEMATOLOGY Hgb 9.9 14.0 - 10/10 [place] 18.0 [facility] HEMATOLOGY WBC 5.4 3.7 - 10.4 10/10 [facility] HEMATOLOGY RBC 3.39 4.70 - 10/10 [place] 6.10 [facility] CHEM PANEL Phosphorus 3.3 2.5 - 4.5 10/09 [facility] CHEM PANEL Magnesium Lvl 1.8 1.8 - 2.4 10/09 [facility] ELECTROLYTE AGAP 12.7 10.0 - 10/09 [facility] S 20.0 [facility] ELECTROLYTE Calcium Lvl 8.2 8.5 - 10.5 10/09 [facility] ELECTROLYTE Sodium Lvl 140 135 - 145 10/09 [facility] s [facility] ELECTROLYTE CO2 27 24 - 32 10/09 [facility] ELECTROLYTE Potassium Lvl 4.7 3.5 - 5.1 10/09 [place] [facility] ELECTROLYTE Chloride Lvl 105 95 - 109 10/09 [facility] ELECTROLYTE eGFR 83 10/09 [facility] Comment: The Medical eGFR is Center calculated [...] BMI. ELECTROLYTE Creatinine 0.94 0.50 - 10/09 [facility] S Lvl 1.40 /2015 [facility] ELECTROLYTE BUN 12 7 - 22 10/09 [facility] ELECTROLYTE Glucose Lvl 178 70 - 99 10/09 [facility] HEMATOLOGY Basophils # 0.1 0.0 - 0.2 10/09 [facility] HEMATOLOGY Monocytes # 0.2 0.0 - 0.8 10/09 [facility] HEMATOLOGY Lymphocytes 19.0 20.0 - 03 [facility] 40.0 [facility] HEMATOLOGY Monocytes 5.6 2.0 - 12.0 10/09 [facility] HEMATOLOGY Segs 72.1 45.0 - 10/09 [place] 75.0 [facility] HEMATOLOGY Eosinophils # 0.1 0.0 - 0.5 10/09 [facility] HEMATOLOGY Basophils 1.7 0.0 - 1.0 10/09 [facility] HEMATOLOGY Eosinophils 1.6 0.0 - 4.0 10/09 [facility] HEMATOLOGY Lymphocytes # 0.8 1.0 - 5.5 10/09 [facility] HEMATOLOGY Segs-Bands # 3.0 1.5 - 8.1 10/09 [facility] HEMATOLOGY MCV 87.7 80.0 - 10/09 [place] 94.0 [facility] HEMATOLOGY MCH 29.2 27.0 - 10/09 [place] 31.0 [facility] HEMATOLOGY RDW 15.1 11.5 - 10/09 [place] 14.5 [facility] HEMATOLOGY Platelet 188 133 - 450 10/09 [facility] HEMATOLOGY MCHC 33.3 32.0 - 10/09 [place] 36.0 [facility] HEMATOLOGY WBC 4.2 3.7 - 10.4 10/09 [facility] HEMATOLOGY RBC 3.35 4.70 - 10/09 [place] 6.10 [facility] HEMATOLOGY Hgb 9.8 14.0 - 10/09 [place] 18.0 [facility] HEMATOLOGY Hct 29.4 42.0 - 10/09 [place] 54.0 [facility] HEMATOLOGY MPV 8.3 7.4 - 10.4 10/09 [facility] CHEM PANEL eGFR 68 10/08 [facility] Comment: The Medical eGFR is Center calculated [...] PANEL BUN 12 7 - 22 10/08 [facility] CHEM PANEL Sodium Lvl 140 135 - 145 10/08 [facility] CHEM PANEL Creatinine 1.11 0.50 - 10/08 [place] Lvl 1.40 [facility] CHEM PANEL Calcium Lvl 8.2 8.5 - 10.5 10/08 [facility] CHEM PANEL CO2 26 24 - 32 10/08 [facility] CHEM PANEL Chloride Lvl 104 95 - 109 10/08 [facility] CHEM PANEL Potassium Lvl 4.6 3.5 - 5.1 10/08 [facility] CHEM PANEL Glucose Lvl 224 70 - 99 10/08 [facility] CHEM PANEL AGAP 14.6 10.0 - 10/08 [place] 20.0 [facility] HEMATOLOGY Eosinophils # 0.3 0.0 - 0.5 10/08 [facility] HEMATOLOGY Segs-Bands # 2.9 1.5 - 8.1 10/08 [facility] HEMATOLOGY Lymphocytes # 1.4 1.0 - 5.5 10/08 [facility] HEMATOLOGY Eosinophils 5.5 0.0 - 4.0 10/08 [facility] HEMATOLOGY Lymphocytes 27.4 20.0 - 10/08 [place] 40.0 [facility] HEMATOLOGY Monocytes 8.3 2.0 - 12.0 10/08 [facility] HEMATOLOGY Segs 57.9 45.0 - 10/08 [place] 75.0 [facility] HEMATOLOGY Basophils 0.9 0.0 - 1.0 10/08 [facility] HEMATOLOGY Monocytes # 0.4 0.0 - 0.8 10/08 [facility] HEMATOLOGY INR 1.11 0.85 - 10/08 [place] 1.17 [facility] HEMATOLOGY PT 14.6 12.0 - 10/08 [place] 14.7 [facility] HEMATOLOGY [place] 2.9 10/08 [facility] HEMATOLOGY ACT (TEG) 409 86 - 118 10/08 [facility] HEMATOLOGY R-time 3.8 0.4 - 0.7 10/08 [facility] HEMATOLOGY Rapid TEG Citrated Whole Blood 10/08 [facility] Sample Type (10/09/15 5:21 PM) /2015 [facility] HEMATOLOGY Estimated % 0.4 0.0 - 7.5 10/08 [place] [facility] HEMATOLOGY G-value 10.6 5.0 - 11.6 10/08 [facility] HEMATOLOGY K-time 2.1 0.6 - 2.3 10/08 [facility] HEMATOLOGY Max Amp 68 52 - 71 10/08 [facility] HEMATOLOGY Angle 63 64 - 80 10/08 [facility] IMMUNOLOGY Bass[place]-Hep C Negative Negative 10/08 [facility] as Ab *NA* /2015 [facility] (10/09/15 9:26 AM) [place] CHEM PANEL Lactic Acid 1.4 0.5 - 2.2 10/08 [place] [facility] HEMATOLOGY Estimated % 0.0 0.0 - 7.5 10/08 [facility] s [place] [facility] HEMATOLOGY G-value 9.0 5.0 - 11.6 10/08 [facility] HEMATOLOGY K-time 1.6 0.6 - 2.3 10/08 [facility] HEMATOLOGY R-time 1.2 0.4 - 0.7 10/08 [facility] HEMATOLOGY [place] 0.8 10/08 [facility] HEMATOLOGY Max Amp 64 52 - 71 10/08 [facility] HEMATOLOGY Angle 68 64 - 80 10/08 [facility] HEMATOLOGY ACT (TEG) 167 86 - 118 10/08 Result Comment: Medical RECHECKED. [place] HEMATOLOGY Rapid TEG Citrated Whole Blood 10/08 [facility] Sample Type (10/09/15 2:08 AM) /2015 [facility] Pathology Reports No Data Provided for This Section Diagnostic Reports Report Value Date Source Chest 1view DX EXAM: XR CHEST 1 VIEW 08/17/2016 [facility] edical DATE: 08/17/2016 6:46 PM LEAD PERSON Cent er INDICATION: Abnormal chest sounds. Findings: [...] DX EXAM: XR CHEST 1 VIEW 08/17/2016 [facility] edical DATE: 08/17/2016 3:00 AM LEAD PERSON Cent er INDICATION: Abnormal chest sounds COMPARISON: [...] for EXAM: XR ABDOMEN 1 VIEW 08/16/2016 [facility] Placement DX DATE: 08/16/2016 2:18 AM LEAD PERSON Cent er INDICATION: Tube Placement OG ADDITIONAL [...] below GE junction. Chest 1view DX 08/16/2016 [facility] EXAM: XR CHEST 1 VIEW Center DATE: 08/16/2016 12:55 AM LEAD PERSON INDICATION: Abnormal chest sounds COMPARISON: None. TECHNIQUE: [...] LEFT UPPER EXTREMITY VENOUS DOPP LER 10/11/2015 [facility] Upside Doppler Unil US DATE: 10/11/2015 7:12 AM [...] EXAM: US LEFT UPPER EXTREMITY VENOUS DOPPLER [facility] US DATE: 10/10/2015 at 1642 hours. Center [...] EXAM: XR LEFT ELBOW 3 VIEWS 10/09/2015 [facility] DATE: 10/09/2015 at 1917 hours Ce nter [...] EXAM: XR LEFT FOREARM 2 VIEWS 10/09/2015 [facility] DATE: 10/09/2015 at 1919 hours Ce nter INDICATION: Pain and swelling COMPARISON: Left elbow radiographs 10/09/2015 at 1917 hours TECHNIQUE: AP and lateral radiographs [facility] forearm FINDINGS: No acute fract ure or malalignment is identified. Generalized subcutaneous edema is present without subcutaneous emphysema or radiopaque foreign body. IMPRESSION: Subcutaneous edema without acute [place] abnormality identified. Humerus 2 views DX EXAM: XR LEFT HUMERUS 2 VIEWS 10/09/2015 [facility] DATE: 10/09/2015 at 1720 hours Ce nter INDICATION: Fracture COMPARISON: 10/08/[address] TECHNIQUE: AP and lateral radiographs of the [facility] humerus FINDINGS: The comminuted lef t humeral [...] left upper extremi ty following fracture. 10/09/2015 [facility] Upper or Lower single FINDINGS: Center l [...] measure 145 and 140 mmHg, respectively. The [facility] brachial index is 0.95. Segmental pressure cuffs placed on the bicep and proximal forearm demonstrate appreciable amplitude waveforms in each location. Digital plethysmogr aphy of the digits of the ft hand demonstrate appreciable amplitude waveforms in all 5 digits. Consultation Notes No Data Provided for This Section Discharge Summaries No Data Provided for This Section History and Physicals No Data Provided for This Section Vital Signs Vital Sign Value Date Comments Source Respitory Rate 20 08/18/2016 [facility] Systolic (mm Hg) 107 08/18/2016 [facility] dical Center Diastolic (mm Hg) 65 [facility]18[facility] Systolic (mm Hg) 93 08/18/2016 [facility] dical Center Diastolic (mm Hg) 55 08/18/2016 [facility] Center Respitory Rate 19 08/18/2016 [facility] Center Systolic (mm Hg) 109 08/18/2016 [facility] dical Center Diastolic (mm Hg) 55 08/18/2016 [facility] Center Respitory Rate 18 08/18/2016 [facility] Temperature Oral (F) 98.3 F 08/18/2016 [facility] Temperature Oral (F) 97.9 F 08/18/2016 [facility] Temperature Oral (F) 96.9 F 08/18/2016 [facility] Height 172.72 cm 08/16/2016 [facility] Height 172.72 cm 08/16/2016 [facility] Height 172.72 cm 08/16/2016 [facility] Center Weight 82 08/16/2016 [facility] BMI Calculated 27.49 08/16/2016 [facility] Heart Rate 65 10/14/2015 [facility] Center Respitory Rate 18 10/14/2015 [facility] Temperature Oral (F) 97.8 F 10/14/2015 [facility] Systolic (mm Hg) 112 10/14/2015 [facility] dical Center Diastolic (mm Hg) 73 10/14/2015 [facility] edical Center Respitory Rate 18 10/14/2015 [facility] Center Systolic (mm Hg) 110 10/14/2015 [facility] dical Center Diastolic (mm Hg) 69 10/14/2015 [facility] [place] Temperature Oral (F) 97.8 F 10/14/2015 [facility] Heart Rate 59 10/14/2015 [facility] Center Respitory Rate 18 10/14/2015 [facility] florin Center Systolic (mm Hg) 117 10/14/2015 [facility] dical Center Diastolic (mm Hg) 62 10/14/2015 [facility] [place] [facility] Temperature Oral (F) 97.7 F 10/14/2015 [facility] Heart Rate 58 10/14/2015 [facility] BMI Calculated 28.43 10/09/2015 [facility] Weight 84.8 10/09/2015 [facility] Height 172.72 cm 10/09/2015 [facility] Weight 81.818 10/09/2015 [facility] Height 172.72 cm 10/09/2015 [facility] BMI Calculated 27.43 10/09/2015 [facility] Encounters Location Location Encounter Encounter Reason Attending ADM DC Stat us Source Details Type Number For Provider Date Date Visit [facility] [id number] Pin Mccann 10/07 10/13 [facility] /2015 [facility] [id number] [place] 08/16 08/18 [facility] /2016 [facility] Procedures Procedure Code Date Perfomer Comments Source Pancreas [id number] [facility] excision<sup>1</ pancreas was Medica l sup> removed due to Center excess ETOH. Assessment and Plan Assessment and Plan Date Source Extracted from:Title: Hospitalist Progress Note 10/14/2015 [facility] Author: Leland Esteves MD Date: 10/13/15 Assessment/Plan 1.Acute closed Left hum eral surgical neck fracture, with extension to the greater tuberosity, non-operative NWB PT/OTfollowing. PT/OT ordered F/u with Dr. Lea in clinic in 2 week s. Call [phone] to schedule appointment. [4] 2.Acute encephalopathy 2/2 [...] BPH (benign prostatic hypertrophy) home meds Orders: [id number] Home Health Order -Detailed Prophylaxis enox Disposition home w/ family - tomorrow FULL CODE [facility] IM hospitalist team is primary. Please page [phone] with any questions. [5] Extracted from:Title: [...] seen and evaluated the patient/fi lms with [place] and agree with the assessment and plan. Assessment and Plan: 70M transferred from outside facility wi concern for vascular injury. Informed by physician [...] History Date Source Social History TypeResponse 08/17/[address] [facility] [place] [place] Substance Abuse Use: None. Sexual Sexually active: [...]
--- OUTSIDE RECORDS SUMMARY | 2020-08-19 13:14 | XMS REPORT | Continuity of Care Document ---
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 [facility] DYSRHYTHMI Diagnosis Active 2016-08-24 Memoria 08-16 21:58:00 l 00:00: [place] DYSRHYTHMI 00 Active 7 [facility] GIOVANNA Diagnosis Active 2016-08-16 Memoria BILLING 08-16 00:40:00 l 00:00: [place] GIOVANNA 00 BILLING Active 08/16/2016 [facility] LEFT Diagnosis Active 2015-10-09 Mem oria SUBAXILLAR 3-16 03:39:00 l Y ARTERY LEFT 00:00: [place] AND SUBAXILLAR 00 BRACHIAL Y ARTERY ART AND BRACHIAL ART Active 10/08/2015 [facility] ARM FX Diagnosis Active 2015-10-21 Mem oria W/ARTERIAL 3-16 22:01:00 l BLOOD IN ARM FX 00:00: Leoncio n SUBCLAVIAN W/ARTERIAL 00 /BR BLOOD IN SUBCLAVIAN /BR Active 10/08/2015 [facility] Cerebrovas Problem Resolve 2016-08-21 Memoria cular d 03:50:59 l accident Joe (disorder) Cerebrovas cular accident (disorder) Resolved Problem 08/21/2016 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 [facility] Atrial Problem Active 2016-08-21 Memor ia fibrillati 03:50:59 l on Atrial [place] (disorder) fibrillati on (disorder) Active Problem 08/21/2016 [facility] Diabetes Problem Active 2016-08-21 Mem oria mellitus 03:50:59 l (disorder) Diabetes He rmann mellitus (disorder) Active Problem 08/21/2016 On insulin [facility] DYSTHYMIC Diagnosis Active 2016-08-24 Memoria DISORDER 21:58:00 l [place] DYSTHYMIC DISORDER Active [facility] UNSP Diagnosis Active 2015-10-21 Mem oria PHYSEAL 22:01:00 l FRACTURE UNSP [place] OF LOWER PHYSEAL END OF UL FRACTURE OF LOWER END OF UL Active [facility] Allergies, Adverse Reactions, Alerts Allergy Allergy Status [...] Memor ia 08-18 Route: l 21:07: TOP, [place] 00 Daily, Drug form: OINT, Start date: 08/18/16 15:07:00 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, Duration: 30 day, Stop date: 09/17/16 9:00:00 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 Neosporin 2017-0 No 1 appl, Memor ia -25 Route: l 21:07: TOP, [place] Daily, Drug form: OINT, Start date: 08/18/16 15:07:00 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, Duration: 30 day, Stop date: 09/17/16 9:00:00 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 apixaban 5 2017-0 Yes 5 mg = [...] 02 # 180 tab, 0 Refill(s) Metformin Yes 500 mg = 1 Me moria hydrochlori 1-25 tab, PO, l de 500 MG 18:10: BID-Meals, He rmann Oral Tablet 02 # 180 tab, 0 Refill(s) Furosemide Yes 20 mg = 1 Me moria 20 MG Oral 1-25 tab, PO, l Tablet 18:09: Daily, # [place] 57 30 tab, 0 Refill(s) Furosemide Yes 20 mg = 1 Me moria 20 MG Oral 1-25 tab, PO, l Tablet 18:09: Daily, # [place] 57 30 tab, 0 Refill(s) finasteride Yes 5 mg = 1 Me moria 5 mg oral 1-25 tab, PO, l tablet 18:09: Daily, # [place] 51 30 tab, 0 Refill(s) finasteride Yes 5 mg = 1 Me moria 5 mg oral 1-25 tab, PO, l tablet 18:09: Daily, # [place] 51 30 tab, 0 Refill(s) DULoxetine Yes 60 mg = 1 Me moria 60 mg oral 1-25 cap, PO, l delayed 18:09: Daily, # Leoncio n release 45 30 cap, 0 capsule Refill(s) DULoxetine Yes 60 mg = 1 Me moria 60 mg oral 1-25 cap, PO, l delayed 18:09: Daily, # Leoncio n release 45 30 cap, 0 capsule Refill(s) DULoxetine 0 No 60 mg = 1 Me moria 60 mg oral 1-25 cap, PO, l delayed 18:07: Daily, # Leoncio n release 54 30 cap, 0 capsule Refill(s) DULoxetine 20170 No 60 mg = 1 Me moria 60 mg oral 1-25 cap, PO, l delayed 18:07: Daily, # Leoncio n release 54 30 cap, 0 capsule Refill(s) finasteride 0 No 5 mg = 1 Me moria 5 mg oral 1-25 tab, PO, l tablet 18:07: Daily, # Joe 50 30 tab, 0 Refill(s) finasteride No 5 mg = 1 Me moria 5 mg oral 1-25 tab, PO, l tablet 18:07: Daily, # [place] 50 30 tab, 0 Refill(s) Furosemide No 20 mg = 1 Me moria 20 MG Oral 1-25 tab, PO, l Tablet 18:07: Daily, # [place] 46 30 tab, 0 Refill(s) Furosemide No [...] PO, l Tablet 18:07: BID, # 60 Leocnio n 33 tab, 0 Refill(s) Ranitidine No [...] PO, l oral tablet 18:07: Bedtime, # [place] 21 30 tab, 0 Refill(s) atorvastati Yes 40 mg = 1 M emoria n 40 mg 1-25 tab, PO, l oral tablet 18:07: Bedtime, # [place] 21 30 tab, 0 Refill(s) metoprolol Yes [...] PO, l oral tablet 18:05: Bedtime, # [place] 20 30 tab, 0 Refill(s) atorvastati No [...] tab, PO, l Tablet 18:04: Daily, # [place] 48 30 tab, 0 Refill(s) Furosemide No 20 mg = 1 Me moria 20 MG Oral 1-25 tab, PO, l Tablet 18:04: Daily, # [place] 48 30 tab, 0 Refill(s) finasteride No 5 mg = 1 Me moria 5 mg oral 1-25 tab, PO, l tablet 18:04: Daily, # [place] 43 30 tab, 0 Refill(s) finasteride No 5 mg = 1 Me moria 5 mg oral 1-25 tab, PO, l tablet 18:04: Daily, # [place] 43 30 tab, 0 Refill(s) DULoxetine No [...] tab, PO, l Tablet 17:48: Daily, # [place] 00 30 tab, 0 Refill(s) finasteride No 5 mg = 1 Me moria 5 mg oral 1-25 tab, PO, l tablet 17:48: Daily, # [place] 00 30 tab, 0 Refill(s) DULoxetine No [...] tab, PO, l Tablet 17:48: Daily, # [place] 00 30 tab, 0 Refill(s) finasteride No 5 mg = 1 Me moria 5 mg oral 1-25 tab, PO, l tablet 17:48: Daily, # [place] 00 30 tab, 0 Refill(s) DULoxetine No [...] 1-25 cap, PO, l 17:45: Q6H, PRN [place] 00 nausea, # 20 cap, 0 Refill(s) [...] M emoria 1-25 0 l 17:40: Refill(s) [place] 00 metoprolol No 25 mg = 1 Me moria tartrate 25 1-25 tab, PO, l mg oral 17:40: BID, # 180 Herm annamaria tablet 00 tab, 0 Refill(s) apixaban 5 No 5 mg = 1 Mem oria MG Oral 1-25 tab, PO, l Tablet 17:40: BID, 0 [place] [Eliquis] 00 Refill(s) Metformin No 500 mg [...] tab, PO, l tablet 17:40: TID, PRN [place] 00 Other-See Comments, # 30 tab, 0 [...] M emoria 1-25 0 l 17:40: Refill(s) [place] 00 metoprolol No 25 mg = 1 [...] 1-25 250 ml/hr, l 0.154 14:56: Infuse [place] MEQ/ML 00 Over: 1 Injectable hr, Route: Solution IV, 250, Drug form: INJ, ONCE, Priority: STAT, Dosing Weight 82 kg, Start date: 08/18/16 8:56:00 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 Joe (Same as: Tylenol) Tylenol No Notes: Do Memor ia 1-25 not exceed l 14:52: 4 gm/day. Joe 00 (Same as: Tylenol) Magnesium No Notes: Memori a Oxide 1-25 (Same as: l 14:49: Mag-Ox Joe 00 400) Magnesium oxide 105wu=[id number] g elemental magnesium Dose=____m g magnesium oxide (___mg elemental magnesium) Magnesium No Notes: Memori a Oxide 1-25 (Same as: l 14:49: Mag-Ox [place] 00 400) Magnesium oxide 893ve=872o g elemental magnesium Dose=____m g magnesium oxide (___mg elemental magnesium) Metoprolol No Notes: Memor ia 1-25 (Same as: l 10:35: Lopressor) [place] 00 Push over 2 minutes Metoprolol No Notes: Memor ia 1-25 (Same as: l 10:35: Lopressor) [place] 00 Push over 2 minutes Robitussin No 30 mg, Memor ia CoughGels 1-25 Route: PO, l 06:00: Q6H, [place] 00 Dosing Weight 82, kg, Start date: 08/18/16 0:00:00 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, Duration: 30 day, Stop date: 09/16/16 18:00:00 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 Robitussin No 30 mg, Memor ia CoughGels 1-25 Route: PO, l 06:00: Q6H, [place] 00 Dosing Weight 82, kg, Start date: 08/18/16 0:00:00 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, Duration: 30 day, Stop date: 09/16/16 18:00:00 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 Eliquis No Notes: Memoria 1-25 Same as: l 03:00: Eliquis [place] 00 Eliquis No Notes: Memoria 1-25 Same as: [...] 1-25 (Same as: :46: Duoneb) Ipratropium 00 [place] 0.167 MG/ML Inhalant Solution [DuoNeb] Albuterol No Notes: Memori a 0.833 MG/ML 1-25 (Same as: :46: Duoneb) Ipratropium 00 [place] 0.167 MG/ML Inhalant Solution [DuoNeb] metoprolol No Notes: Memor ia tartrate 1-24 (Same as: l 22:00: Lopressor) 12.5mg=1/ 4 X 50 mg tab. metoprolol No Notes: Memor ia tartrate 1-24 (Same as: l 22:00: Lopressor) [place] 00 12.5mg=1/ 4 X 50 mg tab. Metoprolol No Notes: Memor ia 1-24 (Same as: l 15:58: Lopressor) Push over 2 minutes Metoprolol No Notes: Memor ia 1-24 (Same as: l 15:58: Lopressor) Push over 2 minutes Acetaminoph No Notes: Max Memoria en 1-24 acetaminop l 14:55: hen = [place] 00 4000mg/day (4 gm/day). (Same as: Tylenol) Acetaminoph No Notes: Max Memoria en -24 acetaminop l 14:55: hen = [place] 00 4000mg/day (4 gm/day). (Same as: Tylenol) Magnesium No Notes: Memori a Oxide 24 (Same as: l 11:32: Mag-Ox [place] 00 400) Magnesium oxide [id number] g elemental magnesium Dose=____m g magnesium oxide (___mg elemental magnesium) Magnesium No Notes: Memori a Oxide -24 (Same as: l 11:32: Mag-Ox [place] 00 400) Magnesium oxide 082dq=[id number] g elemental magnesium Dose=____m g magnesium oxide (___mg elemental magnesium) Tramadol No Notes: Not Mem oria 24 to exceed l 10:22: 400mg/day. [place] 00 (Same As: Ultram) Tramadol No Notes: Not Mem oria 24 to exceed l 10:22: 400mg/day. [place] 00 (Same As: Ultram) atorvastati No Notes: Kashif bello n 1-24 (Same as: l 03:00: Lipitor) [place] atorvastati No Notes: Kashif bello n 1-24 (Same as: l 03:00: Lipitor) [place] insulin No Notes: Memoria detemir 08-16 Same as l 15:00: Levemir Do [place] not hold insulin without contacting prescriber WASTE: F/P - Black; E - Municipal Trash Bin "single patient use only" Protonix No Notes: Memoria 08-16 Tablet l 15:00: should not [place] 00 be chewed or crushed. 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 to DETENTION 8.6 MG Nicolasa-Colac Oral Tablet e. insulin No Notes: Memoria detemir -23 Same as l 15:00: Levemir Do [place] 00 not hold insulin without contacting prescriber WASTE: F/P - Black; E - Municipal Trash Bin "single patient use only" Protonix No Notes: Memoria 1-23 Tablet l 15:00: should not [place] 00 be chewed or crushed. 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 to DETENTION 8.6 MG Nicolasa-Colac Oral Tablet e. Insulin, No Notes: Memoria Aspart, - Roll in l Human 10:31: palms of [place] 00 hands gently; Do not shake vigorously . (Same as: NovoLOG) "single patient use only" WASTE: F/P - Black; E - Municipal Trash Bin Stable for 28 days at room temperatur e. 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, Duration: 30 day, Stop date: 09/15/16 4:30:00 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 Dextrose No 12.5 gm, Memor ia 50% Syringe 1-23 25 mL, l 10:31: Route: [place] 00 IVP, Drug Form: INJ, Dosing Weight 82, kg, PRN, PRN Blood Glucose Results, Start date: 08/16/16 4:31:00 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, Duration: 30 day, Stop date: 09/15/16 4:30:00 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 heparin 2016-0 No 500 mL, Memoria additive 1- Rate: l 25,000 unit 10:31: 20.68 Mariah nn [14 00 ml/hr, unit/kg/hr] Infuse + Premix over: 24.2 Diluent hr, Route: Dextrose 5% IV, Dosing 500 mL Weight 73.84 kg, Total Volume: 500 mL, Start date: 08/16/16 4:31:00 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 (Same as: NovoLOG) "single patient use only" WASTE: F/P - Black; E - DoseMe Trash Bin Stable for 28 days at room temperatur e. 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, Duration: 30 day, Stop date: 09/15/16 4:30:00 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 Dextrose 2016-0 No 12.5 gm, Memor ia 50% Syringe 08-16 25 mL, l 10:31: Route: [place] IVP, Drug Form: INJ, Dosing Weight 82, kg, PRN, PRN Blood Glucose Results, Start date: 08/16/16 4:31:00 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, Duration: 30 day, Stop date: 09/15/16 4:30:00 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 heparin 2016-0 No 500 mL, Memoria additive 1- Rate: l 25,000 unit 10:31: 20.68 Mariah nn [14 00 ml/hr, unit/kg/hr] Infuse + Premix over: 24.2 Diluent hr, Route: Dextrose 5% IV, Dosing 500 mL Weight 73.84 kg, Total Volume: 500 mL, Start date: 08/16/16 4:31:00 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, Duration: 30 day, Stop date: 09/15/16 4:30:00 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 Magnesium 2016-0 No Notes: Memori a Sulfate 08-16 WASTE: F/P l 09:19: - Sink; E [place] - Municipal Trash Bin Magnesium No Notes: Memori a Sulfate 08-16 WASTE: F/P l 09:19: - Sink; E [place] - Municipal Trash Bin Magnesium No 2 gm, Memoria Sulfate 08-16 Route: l 09:18: IVPB, Drug [place] 00 form: INJ, ONCE, Dosing Weight 82, kg, Start date: 08/16/16 3:18:00 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, Duration: 2 hr, Stop date: 08/16/16 3:18:00 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 Magnesium 2016-0 No 2 gm, Memoria Sulfate 08-16 Route: l 09:18: IVPB, Drug [place] 00 form: INJ, ONCE, Dosing Weight 82, kg, Start date: 08/16/16 3:18:00 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, Duration: 2 hr, Stop date: 08/16/16 3:18:00 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 Norepinephr No Notes: Not Memoria ine 08-16 [...] Memoria 08-16 (Same as: l 07:49: Versed) [place] 00 MEDICATION WASTE Product Size: 2 mg Product Wasted: ___ mg Fentanyl No 1,000 Memoria 1-23 microgram, l 07:48: 20 mL, Rate: Titrate, Start Dose: 50 microgram/ hr, Titration: 25 microgram/ hour every 15 minutes, Goal(s): RASS -2, Max Dose: 300 microgram/ hr, Route: IV, Dosing Weight 82 kg, Total Volume: 20, Start date: 08/16/16 1:48:00 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, Durati... Fentanyl No 1,000 Memoria 1-23 microgram, l 07:48: 20 mL, Rate: Titrate, Start Dose: 50 microgram/ hr, Titration: 25 microgram/ hour every 15 minutes, Goal(s): RASS -2, Max Dose: 300 microgram/ hr, Route: IV, Dosing Weight 82 kg, Total Volume: 20, Start date: 08/16/16 1:48:00 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, Durati... tramadol Yes 50 mg = 1 [...] 2 tab, PO, l tablet 15:13: Bedtime, PRN Constipati on, AVAILABLE OVER THE COUNTER WITHOUT PRESCRIPTI ON, X 10 day, # 20 tab, 0 Refill(s) Amylases Yes 1 cap, PO, Mem oria 90960 UNT / 3-22 BID, PRN l Endopeptida 15:13: snack, 0 [place] [id number] 00 Refill(s) UNT / Lipase 6000 UNT Enteric Coated Capsule [Creon 6] docusate Yes 100 mg = 1 Mem oria sodium 100 -22 cap, PO, l mg oral 15:13: BID, [place] capsule 00 AVAILABLE OVER THE COUNTER WITHOUT PRESCRIPTI ON, # 60 cap, 0 Refill(s) oxybutynin Yes 5 mg = 1 Mem oria 5 mg oral -22 tab, PO, l tablet 15:13: TID, PRN [place] 00 Bladder Spasm, 0 Refill(s) tramadol No [...] mg = 1 Memoria ol 750 mg -22 tab, PO, l oral tablet 15:13: TID, [...] Amylases Yes 1 cap, PO, Mem oria 06558 UNT / 3-22 BID, PRN l Endopeptida 15:13: snack, 0 [place] [id number] 00 Refill(s) UNT / Lipase 6000 UNT Enteric Coated Capsule [Creon 6] docusate Yes 100 mg = 1 Mem oria sodium 100 3-22 cap, PO, l mg oral 15:13: BID, [place] capsule 00 AVAILABLE OVER THE COUNTER WITHOUT [...] 10-13 Same as l 14:00: Levemir Do [place] 00 not hold insulin without contacting prescriber WASTE: F/P - Black; E - Municipal Trash Bin "single patient use only" insulin No Notes: Memoria detemir 10-13 Same as l 14:00: Levemir Do [place] 00 not hold insulin without contacting prescriber WASTE: F/P - Black; E - Municipal Trash Bin "single patient use only" insulin No Notes: Memoria detemir 10-12 Same as l 14:39: Levemir Do [place] 00 not hold insulin without contacting prescriber WASTE: F/P - Black; E - Municipal Trash Bin "single patient use only" insulin No Notes: Memoria detemir 10-12 Same as l 14:39: Levemir Do [place] 00 not hold insulin without contacting prescriber WASTE: F/P - Black; E - Municipal Trash Bin "single patient use only" Enoxaparin No Notes: Memor ia 3-21 (Same as: l 14:00: Lovenox) [place] 00 Kenalog No Notes: Memoria 0.1% 3- (triamcino l topical 14:00: lone [place] cream 00 acetonide 0.1% 15 gm top CRM) (Same As: Kenalog) Enoxaparin No Notes: Memor ia 3-21 (Same as: l 14:00: Lovenox) [place] 00 Kenalog No Notes: Memoria 0.1% 3-21 [...] Roll in l Human 16:30: palms of [place] 00 hands gently; Do not shake vigorously . (Same as: NovoLOG) "single patient use only" WASTE: F/P - Black; E - Municipal Trash Bin Stable for 28 days at room temperatur e. Expires in days from ____Date insulin No Notes: Memoria detemir 3-20 Same as l 15:00: Levemir Do [place] 00 not hold insulin without contacting prescriber WASTE: F/P - Black; E - Municipal Trash Bin "single patient use only" insulin No Notes: Memoria detemir 3-20 Same as l 15:00: Levemir Do [place] 00 not hold insulin without contacting prescriber WASTE: F/P - Black; E - Municipal Trash Bin "single patient use only" Insulin, No Notes: Memoria Aspart, 3-20 Roll in l Human 13:00: palms of [place] 00 hands gently; Do not shake vigorously . (Same as: NovoLOG) "single patient use only" WASTE: F/P - Black; E - Municipal Trash Bin Stable for 28 days at room temperatur e. Expires in days from ____Date Insulin, No Notes: Memoria Aspart, 3-20 Roll in l Human 13:00: palms of [place] 00 hands gently; Do [...] not crush l Coated 14:00: or chew. [place] Tablet 00 (Same As: Ecotrin) Robaxin No Notes: Memoria 3-19 (Same l 14:00: as:Robaxin [place] 00 ) Flomax No Notes: Memoria 3-19 (Same As: l 14:00: Flomax) [place] 00 "Do Not Crush" pantoprazol No Notes: Kashif bello e 3-19 Tablet l 14:00: should not [place] 00 be chewed or crushed. (Same as: Protonix) Finasteride No Notes: Kashif bello 3-19 (Same as: l 14:00: Proscar) [place] 00 "Do Not Crush" Women of childbeari ng age should not touch or handle broken tablets duloxetine 0 No Notes: Memor ia 3-19 (Same as: l 14:00: Cymbalta) [place] 00 (Do Not Crush) Aspirin 81 No Notes: Do Me moria MG Enteric 3-19 not crush l Coated 14:00: or chew. [place] Tablet 00 (Same As: Ecotrin) Amylases No Notes: Memoria 90420 UNT / 3-19 (lipase l Endopeptida 13:00: 60,000 [place] [address] 00 units, UNT / protease Lipase 6000 19,000 UNT Enteric units, Coated amylase Capsule 30,000 [Creon 6] units DRC) Same as: Sumit (Creon 6) Amylases No Notes: Memoria 25568 UNT / 3-19 (lipase l Endopeptida 13:00: 60,000 Herm [place]amaria [place] [address] 00 units, UNT / protease Lipase 6000 19,000 UNT Enteric units, Coated amylase Capsule 30,000 [Creon 6] units DRC) Same as: Sumit (Creon 6) Amylases No Notes: Memoria 77326 UNT / 3-19 (lipase l Endopeptida 12:16: 60,000 Herm [place] 24874 00 units, UNT / protease Lipase 6000 19,000 UNT Enteric units, Coated amylase Capsule 30,000 [Creon 6] units DRC) Same as: Sumit (Creon 6) Amylases No Notes: Memoria 69851 UNT / 3-19 (lipase l Endopeptida 12:16: 60,000 Herm [place] 427[address] 00 units, UNT / protease Lipase 6000 19,000 UNT Enteric units, Coated amylase Capsule 30,000 [Creon 6] units DRC) Same as: Sumit (Creon 6) Simvastatin No Notes: Kashif bello [...] latanoprost No Notes: Kashif bello 0.05 MG/ML -19 Keep l Ophthalmic 02:00: refrigerat H ermann Solution 00 ed. (Same as:Xalatan ) insulin No Notes: Memoria detemir 3-18 Same as l 22:12: Levemir Do [place] 00 not hold insulin without contacting prescriber WASTE: F/P - Black; E - Municipal Trash Bin "single patient use only" insulin No Notes: Memoria detemir 3-18 Same as l 22:12: Levemir Do [place] 00 not hold insulin without contacting prescriber [...] 3-18 Same as l 22:00: Lyrica Joe Lyrica No Notes: Memoria 3-18 (Same as: l 22:00: Lyrica) Joe Amylases No Notes: Memoria 24929 UNT / 3-18 (lipase l Endopeptida 22:00: 60,000 Herm [place] [address] 00 units, UNT / protease Lipase 6000 19,000 UNT Enteric units, Coated amylase Capsule 30,000 [Creon 6] units [facility]) Same as: Creon (Creon 6) pregabalin No Notes: Memor ia 3-18 Same as l 22:00: Lyrica Joe Lyrica No Notes: Memoria 3-18 (Same as: l 22:00: Lyrica) Joe Amylases No Notes: Memoria 86623 UNT / 3-18 (lipase l Endopeptida 22:00: 60,000 Herm [place] [address] 00 units, UNT / protease Lipase 6000 19,000 UNT Enteric units, Coated amylase Capsule 30,000 [Creon 6] units [facility]) Same as: Creon (Creon 6) oxybutynin No [...] Amylases No 1 cap, PO, Mem oria 92914 UNT / 3-18 QID, # 120 l Endopeptida 18:27: cap, 0 Herm [place] [id number] 00 Refill(s) UNT / Lipase 6000 UNT Enteric Coated Capsule [Creon 6] calcium-vit Yes 1 tab, PO, Memoria mendez D 250 3-18 TID, 0 l mg-125 18:27: Refill(s) Leoncio n units oral 00 tablet Vitamin B Yes 1000 mcg, Mem oria 12 3-18 IM, ONCE, l 18:27: 0 [place] 00 Refill(s) finasteride Yes 5 mg = [...] tab, PO, l tablet 18:27: TID, PRN [place] 00 Other-See Comments, # 30 tab, 0 [...] Amylases No 1 cap, PO, Mem oria 64139 UNT / 3-18 QID, # 120 l Endopeptida 18:27: cap, 0 Herm [place] [id number] 00 Refill(s) UNT / Lipase 6000 UNT [...] detemir 3-18 SUB-Q, l 18:27: Daily, 0 [place] 00 Refill(s) pregabalin Yes 150 mg = [...] tab, PO, l Coated 18:11: Daily, # [place] Tablet 00 90 tab, 3 Refill(s) latanoprost [...] Daily, # l 18:11: 30 tab, 0 [place] 00 Refill(s) Tamsulosin Yes 0.4 mg = 1 M emoria hydrochlori 3-18 cap, PO, l de 0.4 MG 18:11: Daily, 0 Herm annamaria Oral 00 Refill(s) Capsule [Flomax] metoprolol No BID, 0 Memor ia tartrate 3-18 Refill(s) l 18:11: [place] 00 duloxetine No PO, 0 Memori a 3-18 Refill(s) l 18:11: [place] 00 Ibuprofen No 0 Memoria 3-18 Refill(s) l 18:11: Joe Ranitidine No 0 Memoria 3-18 Refill(s) l 18:11: [place] insulin No SUB-Q, 0 Memori a detemir 3-18 Refill(s) l 18:11: [place] 00 Aspirin 81 Yes 81 mg = 1 Me moria MG Enteric 3-18 tab, PO, l Coated 18:11: Daily, # [place] Tablet 00 90 tab, 3 Refill(s) latanoprost [...] Memor ia tartrate 3-18 Refill(s) l 18:11: [place] 00 duloxetine No PO, 0 Memori a 3-18 Refill(s) l 18:11: [place] 00 Ibuprofen No 0 Memoria 3-18 Refill(s) l 18:11: Joe Ranitidine No 0 Memoria 3-18 Refill(s) l 18:11: [place] 00 insulin 0 No SUB-Q, 0 Memori a detemir 3-18 Refill(s) l 18:11: Hydralazine No Notes: Kashif bello 3-18 (Same as: l 17:09: Apresoline ) Push over 5 minutes Hydralazine No Notes: Kashif bello 3-18 (Same as: l 17:09: Aproline ) Push over 5 minutes Insulin No 60 Memoria regular 3-18 units) l 13:25: WASTE: F/P Joe 00 - Black; E - [employer] Trash Bin Stable for 28 days at room temperatur e Expires in days from ____Date Dextrose 0 No 25 gm, 50 Kashif bello 50% Syringe 3-18 mL, Route: l 13:25: IVP, Drug Form: INJ, Dosing Weight 84.8, kg, PRN, PRN Blood Glucose Results, Start date: 10/10/15 8:25:00, Duration: 30 day, Stop date: 11/09/15 8:24:00 Glucagon No 1 mg, Memoria 3-18 Route: IM, l 13:25: Drug form: Joe 00 PDR/INJ, PRN, Dosing Weight 84.8, kg, PRN Blood Glucose Results, Start date: 10/10/15 8:25:00, Duration: 30 day, Stop date: 11/09/15 8:24:00 Insulin 0 No 60 Memoria regular 3-18 units) l 13:25: WASTE: F/P Joe - Black; E - [employer] Trash Bin Stable for 28 days at room temperatur e Expires in days from ____Date Dextrose 0 No 25 gm, 50 Kashif bello 50% Syringe 3-18 mL, Route: l 13:25: IVP, Drug Joe 00 Form: INJ, Dosing Weight 84.8, kg, PRN, PRN Blood Glucose Results, Start date: 10/10/15 8:25:00, Duration: 30 day, Stop date: 11/09/15 8:24:00 Glucagon No 1 mg, [facility] 3-18 Route: IM, l 13:25: Drug form: [place] 00 PDR/INJ, PRN, Dosing Weight 84.8, kg, PRN Blood Glucose Results, Start date: 10/10/15 8:25:00, Duration: 30 day, Stop date: 11/09/15 8:24:00 Acetaminoph No Notes: Max [facility] en 3-18 acetaminop l 05:00: hen 4000 [place] 00 mg/day (4 gm/day). (Same as: Tylenol Extra Strength) Acetaminoph No Notes: Max [facility] en 3-18 acetaminop l 05:00: hen 4000 [place] 00 mg/day (4 gm/day). (Same as: Tylenol Extra Strength) Haldol No Notes: [facility] 3-18 (Same as: l 04:47: Haldol) [place] Haldol No Notes: [facility] 3-18 (Same as: l 04:47: Haldol) Joe sennosides, No Notes: Kashif bello DETENTION 3-18 (Same as: l 02:00: Senokot) Joe Docusate No Notes: [facility] 3-18 (Same as: l 02:00: Colace) [place] (Do Not Crush) sennosides, No Notes: Kashif bello DETENTION 3-18 (Same as: l 02:00: Senokot) Joe Docusate No Notes: [facility] 3-18 (Same as: l 02:00: Colace) Joe (Do Not Crush) metoprolol No Notes: Memor ia tartrate 3-18 (Same as: l 00:51: Lopressor) Joe metoprolol No Notes: [facility] ia tartrate 3-18 (Same as: l 00:51: Lopressor) [place] 00 Oxycodone No Notes: Memori a Hydrochlori 3-17 (Same as: l de 5 MG 22:23: Roxicodone Herm annamaria Oral Tablet 00 ) Oxycodone No Notes: Memori a Hydrochlori 10-08 (Same as: l de 5 MG 22:23: Roxicodone Herm annamaria Oral Tablet 00 ) Dextrose No 12.5 gm, Memor ia 50% Syringe 3-17 25 mL, l 22:20: Route: Joe 00 IVP, Drug Form: INJ, Dosing Weight [...] Syringe 17 25 mL, l 22:20: Route: Joe 00 IVP, Drug Form: INJ, Dosing Weight 84.8, kg, PRN, PRN Abnormal Lab Result, Start date: 10/09/15 17:20:00, Duration: 30 day, Stop date: 11/08/15 17:19:00, For FSBG 40 mg/dL - 60 mg/dL Insulin No 60 [facility] regular 3-17 units) l 22:20: WASTE: F/P [place] 00 - Black; E - Municipal Trash [...] ne 10-08 Same as: l 19:00: Dilaudid [place] 00 Hydromorpho No Notes: Kashif bello ne 3-17 Same as: l 19:00: Dilaudid [place] 00 Dilaudid No 1 mg, [facility]oria 3-17 Route: l 15:12: IVP, ONCE, Joe 00 Dosing Weight 81.818, kg, Priority: STAT, Start date: 10/09/15 10:12:00, Stop date: 10/09/15 10:12:00 Dilaudid No 1 mg, [facility]oria 317 Route: l 15:12: IVP, ONCE, Joe Dosing Weight 81.818, kg, Priority: STAT, Start date: 10/09/15 10:12:00, Stop date: 10/09/15 10:12:00 Hydromorpho No Notes: Kashif bello ne 3-17 Same as: l 12:55: Dilaudid [place] 00 Hydromorpho No Notes: Kashif bello ne 3-17 Same as: l 12:55: Dilaudid [place] Fentanyl No Notes: [facility]oria 3-17 (Same as: l 09:26: Sublimaze) [place] 00 Preservat lisa free. Fentanyl No Notes: [facility]oria 3-17 (Same as: l 09:26: Sublimaze) [place] 00 Preservat lisa free. Heparin 30 No Route: Memor ia unit/kg -17 IVP, PRN, l Bolus 07:39: 2,200 Joe (Heparin 00 unit, 2.2 Dosing mL, Drug Weight) form: INJ, PRN, Heparin Protocol, Start date: 10/09/15 2:39:00 Stop date: 11/08/15 2:38:00, 30 day Heparin 60 No Route: Memor ia unit/kg 3-17 IVP, PRN, l Bolus 07:39: 4,400 [place] (Heparin 00 unit, 4.4 Dosing mL, Drug [...] 3-17 IVP, PRN, l Bolus 07:39: 2,200 [place] (Heparin 00 unit, 2.2 Dosing mL, Drug Weight) form: INJ, PRN, Heparin Protocol, Start date: 10/09/15 2:39:00 Stop date: 11/08/15 2:38:00, 30 day Heparin 60 No Route: Memor ia unit/kg 3-17 IVP, PRN, l Bolus 07:39: 4,400 [place] (Heparin 00 unit, 4.4 Dosing mL, Drug [...] Source Respitory Rate 2016-08-18 21:09:00 Memori al [place] Systolic (mm Hg) 2016-08-18 21:09:00 Kashif rial [place] Diastolic (mm Hg) 2016-08-18 21:09:00 Mem orial [place] Systolic (mm Hg) 2016-08-18 20:00:00 Kashif rial [place] Diastolic (mm Hg) 2016-08-18 20:00:00 Mem orial [place] Respitory Rate 2016-08-18 20:00:00 Memori al [place] Systolic (mm Hg) 2016-08-18 19:00:00 Kashif rial [place] Diastolic (mm Hg) 2016-08-18 19:00:00 Mem orial [place] Respitory Rate 2016-08-18 19:00:00 Memori al Joe Temperature Oral (F) 2016-08-18 17:51:00 98.3 F [facility] Joe Temperature Oral (F) 2016-08-18 14:26:00 97.9 F [facility] [place] Temperature Oral (F) 2016-08-18 11:27:00 96.9 F [facility] [place] Height 2016-08-16 16:29:00 172.72 cm [facility] Height 2016-08-16 14:43:00 172.72 cm [facility] [place] Height 2016-08-16 08:55:00 172.72 cm [facility] Weight 2016-08-16 07:02:00 [facility] [place] BMI Calculated 2016-08-16 07:02:00 Mem[facility] al [place] Heart Rate 2015-10-14 17:16:00 [facility] [place] Respitory Rate 2015-10-14 17:16:00 [facility] [place] Temperature Oral (F) 2015-10-14 17:16:00 97.8 F [facility] [place] Systolic (mm Hg) 2015-10-14 17:16:00 Kashif rial [place] Diastolic (mm Hg) 2015-10-14 17:16:00 Mem orial [place] Respitory Rate 2015-10-14 13:12:00 Memori al [place] Systolic (mm Hg) 2015-10-14 13:12:00 Kashif rial [place] Diastolic (mm Hg) 2015-10-14 13:12:00 Mem orial [place] Temperature Oral (F) 2015-10-14 13:12:00 97.8 F [facility] [place] Heart Rate 2015-10-14 13:12:00 [facility] [place] Respitory Rate 2015-10-14 11:26:00 Memori al [place] Systolic (mm Hg) 2015-10-14 11:26:00 Kashif rial [place] Diastolic (mm Hg) 2015-10-14 11:26:00 Mem orial [place] Temperature Oral (F) 2015-10-14 11:26:00 97.7 F [facility] [place] Heart Rate 2015-10-14 11:26:00 [facility] [place] BMI Calculated 2015-10-09 21:00:00 [facility] [place] Weight 2015-10-09 21:00:00 [facility] Height 2015-10-09 21:00:00 172.72 cm [facility] [place] Weight 2015-10-09 06:32:00 [facility] [place] Height 2015-10-09 06:32:00 172.72 cm [facility] [place] BMI Calculated 2015-10-09 06:32:00 [facility] al [place] Procedures Procedure Date / Time Performed Performing Clinician [facility] [place] excision<sup>1</sup> Encounters Start End Encounter Admission Attending Care Care Encounter Source Date/Time Date/Time Type Type Clinicians Facility Department ID 2016-08-16 2016-08-18 Outpatient Michela [facility] [id number] 00:53:00 16:10:00 Viktor 67 2016-08-16 2016-08-18 Outpatient Michela, [facility] [id number] 00:53:00 16:10:00 Viktor Micheal 2015-10-08 2015-10-14 Outpatient Mouser, [facility] [id number] 01:32:00 13:55:00 Leland Melendez 2015-10-08 2015-10-14 Outpatient Mouser, [facility] [id number] 01:32:00 13:55:00 Leland Melendez Results Test [...] code = MCH) 27.0 pg 27.0-31.0 [facility] CfrgzucEZDMKUYFZX1587-76-36 10:45:0084.2[facility] HermannHEMATOLOGY 2016-08-18 10:45:0070.2[facility] QuallcrWLRONITJQM2305-76-43 10:45:000.3[facility] TxkmflfCWKSMJNDRT2364-89-85 10:45:000.5[facility] VrwzyfoIFZCLLSWQW9426-43-25 10:45:006.5[facility] OilfabqTMHIUIBBNP3704-76-13 10:45:000.3[facility] [place] MCORWLCCGR4353-46-75 10:45:005.6[facility] NytqnztJRHETVIVVQ2175-07-00 10:45:003.4 [facility] VolqmzmZORPSNLGPT8334-60-00 10:45:001.6[facility] HermannHEMATOLOGY 2016-08-18 10:45:0019.6[facility] HermannCHEM GNPCE2174-58-50 10:45:001.9[facility] HermannCHEM ISSAE7947-19-44 10:45:009.2[facility] HermannCHEM DIRSZ9626-45-67 10:45:0085[facility] HermannCHEM HDCQO8362-40-45 10:45:0014[facility] HermannCHEM YANMT0492-93-57 10:45:25395Huudzyqi HermannCHEM GXPRU5244-32-43 10:45:000.92 [facility] HermannCHEM XMXTQ9624-67-79 10:45:77155Cfukxpwq HermannCHEM PANEL 2016-08-18 10:45:004.1[facility] HermannCHEM ZXJXT8064-10-06 10:45:03343Nbdqwzhh HermannCHEM MCGBW4458-96-04 10:45:0029[facility] HermannCHEM CSOYN8331-99-17 10:45:0013.1[facility] HermannCHEM IYVAB5667-16-12 10:45:003.7[facility] Joe SUNYRYNBAA6037-91-20 10:45:01327Kkxahxsc KhyekouJKAJSAHAHZ3923-59-68 10:45:009.1 [facility] ZkrxysyDESUUAVEXE1755-58-23 10:45:0017.0[facility] HermannHEMATOLOGY 2016-08-18 10:45:0032.1[facility] QgzhoozKDOPYNTJZF8046-30-03 10:45:0038.7[facility] KjhxaskQIVNNVOABY6532-64-95 10:45:004.60[facility] DkotfwfJWLFQOLGLQ7932-90-60 10:45:008.0[facility] TnytwkgKCDKFLUXHL5049-55-82 10:45:0012.4[facility] Joe FOEWFEFCHW4329-38-25 10:45:00 Test Item Value Reference Range Interpretation Comments MCH (test code = MCH) 27.0 pg 27.0-31.0 [facility] CffwhydHDKOCPWNHE8588-84-30 10:45:0084.2[facility] HermannHEMATOLOGY 2016-08-18 10:45:0070.2[facility] FbnpwqvIYGHWTTXEO5364-80-38 10:45:000.3[facility] DxijtjlWDJCCXIXID9510-37-39 10:45:000.5[facility] BwuycykIISHOXVBVY1778-23-74 10:45:006.5[facility] EpqnzkzPNOUPKJSIJ6031-81-50 10:45:000.3[facility] [place] PUBATYNMYJ1008-41-38 10:45:005.6[facility] KqwgxczJWPSXCCBWL8361-51-80 10:45:003.4 [facility] AifedkxQQGJCCIIMZ6723-50-51 10:45:001.6[facility] HermannHEMATOLOGY 2016-08-18 10:45:0019.6[facility] HermannCHEM QCYWO6610-01-05 16:29:0074[facility] HermannCHEM VIZDH4632-63-73 16:29:001.03[facility] HermannCHEM IJQIC1353-25-71 16:29:42912Kyubypyu HermannCHEM QLFZA2707-99-04 16:29:004.3[facility] HermannCHEM YZEAH8082-18-60 16:29:72364Syykqgad HermannCHEM FZVMM5196-05-88 16:29:0029 [facility] HermannCHEM YBPTG3629-52-62 16:29:008.6[facility] HermannCHEM PANEL 2016-08-17 16:29:0017[facility] HermannCHEM LBGLE7398-23-60 16:29:02906Pvaekkgq HermannCHEM HILMS9215-39-33 16:29:0011.3[facility] HermannCHEM XRLYQ7263-98-37 16:29:0074[facility] HermannCHEM WLBGX3121-13-35 16:29:001.03[facility] HermannCHEM SFUOZ1855-54-29 16:29:94927Ppzrxqfy HermannCHEM ANLUE3477-72-35 16:29:004.3 [facility] HermannCHEM ZUTZK4861-96-39 16:29:26305Tcsliyih HermannCHEM PANEL 2016-08-17 16:29:0029[facility] HermannCHEM XGOPI5983-70-41 16:29:008.6[facility] HermannCHEM ZVPQR6654-43-80 16:29:0017[facility] HermannCHEM EVOFN2146-68-67 16:29:74311Xpchgaji HermannCHEM UAUKG5683-59-55 16:29:0011.3[facility] HermannCHEM VLAZS2799-71-02 10:01:004.2[facility] HermannCHEM NNKJF2229-77-80 10:01:003.6 [facility]annCHEM NFGZR2245-06-61 10:01:0010.8[facility] HermannCHEM PANEL 2016-08-17 10:01:0017[facility] HermannCHEM NJCKO9174-36-68 10:01:000.8[facility] HermannCHEM BCMRG5939-53-55 10:01:0069[facility] HermannCHEM RWFMG2132-74-05 10:01:001.09[facility] HermannCHEM NIEKY1408-16-12 10:01:46678Byyhrksr HermannCHEM ODILY6367-38-28 10:01:0019[facility] HermannCHEM BBDNC9239-27-00 10:01:0082 [facility] HermannCHEM WLORM9234-94-01 10:01:000.4[facility] HermannCHEM PANEL 2016-08-17 10:01:0016[facility] HermannCHEM RVUQU5552-94-10 10:01:006.5[facility] HermannCHEM SGNNX8710-78-98 10:01:008.6[facility] HermannCHEM OKRYC1634-02-19 10:01:004.8[facility] HermannCHEM ZYUAY4314-91-46 10:01:51755Vmtkbtnf HermannCHEM GUQXV4435-53-84 10:01:0028[facility] HermannCHEM SNTEW3478-47-10 10:01:002.9 [facility] HermannCHEM KENTJ8818-23-99 10:01:0012[facility] HermannCHEM PANEL 2016-08-17 10:01:22500Zlwturca HermannCHEM TQPSD2882-92-82 10:01:001.9[facility] CjlhcmkTPDGIZTPPS7361-57-98 10:01:001.18[facility] KguqmmoLLKUHHLMYD8546-91-84 10:01:00 Test Item Value Reference Range Interpretation Comments PT (test code = PT) 15.3 s 12.0-14.7 [facility] CnrhwxmGYTPBXUPTZ5510-84-20 10:01:00 Test Item Value Reference Range Interpretation Comments PTT (test code = PTT) 66.0 s 22.9-35.8 [facility] RkqjxtyPVZERDYHQS9675-73-63 10:01:51441Brmdnyhu HermannHEMATOLOGY 2016-08-17 10:01:008.5[facility] TzalpvkQLLELDCFPA4171-43-21 10:01:004.14[facility] RbuegnqASDERTAMLP4249-79-61 10:01:0034.6[facility] HhtwcelRMKNRCIEQE0014-62-50 10:01:006.9[facility] JybnhhcPKQGWTLGQB1038-44-58 10:01:0083.7[facility] [place] ARPEPSYKEM4566-05-00 10:01:0017.4[facility] DcfuxtqZRIXXJHNHV1262-34-39 10:01:00 33.0[facility] LqhorskVTJNOPPLLD9496-55-68 10:01:0011.4[facility] HermannHEMATOLOGY 2016-08-17 10:01:00 Test Item Value Reference Range Interpretation Comments MCH (test code = MCH) 27.7 pg 27.0-31.0 [facility] MdvaqrnKPWSAAIRIS2315-03-02 10:01:000.5[facility] HermannHEMATOLOGY 2016-08-17 10:01:002.1[facility] AljjmuqYHLDOHLQAM0844-10-27 10:01:000.3[facility] EeadiflLKITCJCPOX7867-90-65 10:01:004.0[facility] FxbcorrHDEECRAZAJ9507-49-72 10:01:006.8[facility] UorbxroWPCTXYSUSL9282-74-97 10:01:000.4[facility] Joe WZFLTTQZDY7273-16-65 10:01:004.3[facility] OsrzhlzRDWKBDQHDC0808-42-46 10:01:00 30.0[facility] GihhvoxVYJVOPSOEU6125-57-42 10:01:0058.5[facility] HermannPARATHYROID DVIFVBI3319-35-40 10:01:001.11[facility] HermannPARATHYROID JVAPQLP1207-30-87 10:01:001.11[facility] HermannCHEM RACZI3327-84-55 10:01:004.2[facility] HermannCHEM GVHTE5904-22-06 10:01:003.6[facility] HermannCHEM GSASA3944-25-82 10:01:0010.8 [facility] HermannCHEM WFYPA7858-95-44 10:01:0017[facility] HermannCHEM PANEL 2016-08-17 10:01:000.8[facility] HermannCHEM MCUMK8109-00-89 10:01:0069[facility] HermannCHEM SJULT2948-48-35 10:01:001.09[facility] HermannCHEM PCQER0001-96-95 10:01:37085Ortncvrr HermannCHEM EPRQD3574-55-65 10:01:0019[facility] HermannCHEM KKYGD0438-54-58 10:01:0082[facility] HermannCHEM SYXZY9957-86-46 10:01:000.4 [facility] HermannCHEM UIMEG3201-34-54 10:01:0016[facility] HermannCHEM PANEL 2016-08-17 10:01:006.5[facility] HermannCHEM HZENC7289-11-67 10:01:008.6[facility] HermannCHEM IKKZN9484-01-55 10:01:004.8[facility] HermannCHEM RVQAH8230-42-14 10:01:85827Fdxzloec HermannCHEM PZZCV4373-46-66 10:01:0028[facility] HermannCHEM WCGOB5901-76-29 10:01:002.9[facility] HermannCHEM GKFKM6095-06-75 10:01:0012 [facility] HermannCHEM NTOJL2325-10-49 10:01:70651Uakmqtov HermannCHEM PANEL 2016-08-17 10:01:001.9[facility] FeqfbqwYNKUWRZGJZ0480-80-59 10:01:001.18[facility] EmhwybyJOKZZNSTFM0001-20-17 10:01:00 Test Item Value Reference Range Interpretation Comments PT (test code = PT) 15.3 s 12.0-14.7 [facility] TduflcoETADBHPYVN1542-20-72 10:01:00 Test Item Value Reference Range Interpretation Comments PTT (test code = PTT) 66.0 s 22.9-35.8 [facility] SqmnmugHXPCDBMJJQ6269-09-49 10:01:78581Gguewazp HermannHEMATOLOGY 2016-08-17 10:01:008.5[facility] IhyisjeFSHZHGXDMC8090-40-32 10:01:004.14[facility] CqhumagSRRIOHNFIR3340-61-93 10:01:0034.6[facility] HymvfvvHQXXOAYCWJ4648-30-44 10:01:006.9[facility] ZpwytlcYBCOLZNHQT9232-42-06 10:01:0083.7[facility] [place] LQMWCLPPLX3940-29-45 10:01:0017.4[facility] SztqqetUYYTMDUYSG2334-04-17 10:01:00 33.0[facility] AonbcmwHXGYOISOTB7302-52-87 10:01:0011.4[facility] HermannHEMATOLOGY 2016-08-17 10:01:00 Test Item Value Reference Range Interpretation Comments MCH (test code = MCH) 27.7 pg 27.0-31.0 [facility] LqczfknBIVUCDUDWX1933-50-98 10:01:000.5[facility] HermannHEMATOLOGY 2016-08-17 10:01:002.1[facility] XcdruumRMHBAJJDRN7800-21-54 10:01:000.3[facility] FlipmyzOZDCZBOJAA1268-15-85 10:01:004.0[facility] MyokuseFJZGOFACED0477-95-87 10:01:006.8[facility] LrmbwoeHWNIAWHWTB2338-27-34 10:01:000.4[facility] SHMYSGCMEA9677-97-91 10:01:004.3[facility] QitrsrhXEDXXUWEEI1857-69-99 10:01:00 30.0[facility] GleqzxiUQEORRCAVJ3724-09-25 10:01:0058.5[facility] HermannPARATHYROID WLSDIVB1224-66-83 10:01:001.11[facility] HermannPARATHYROID PRGIRJU6285-10-39 10:01:001.11[facility] HermannCHEM MDXSP1674-78-79 23:57:004.1[facility] HermannCHEM BLKYV2219-81-46 23:57:001.8[facility] WjudkwyOCLTDRFXKS4962-26-58 23:57:00 Test Item Value Reference Range Interpretation Comments PTT (test code = PTT) 63.3 s 22.9-35.8 [facility] AbtizoiDTOEXCUMDC9655-72-97 23:57:001.17[facility] HermannHEMATOLOGY 2016-08-16 23:57:00 Test Item Value Reference Range Interpretation Comments PT (test code = PT) 15.1 s 12.0-14.7 [facility] HermannCHEM QZDPO0219-81-58 23:57:004.1[facility] HermannCHEM PANEL 2016-08-16 23:57:001.8[facility] GohhlytTXUNQLPAXF3207-58-52 23:57:00 Test Item Value Reference Range Interpretation Comments PTT (test code = PTT) 63.3 s 22.9-35.8 [facility] DtyqjyzWFFEIKNQOQ7568-51-53 23:57:001.17[facility] HermannHEMATOLOGY 2016-08-16 23:57:00 Test Item Value Reference Range Interpretation Comments PT (test code = PT) 15.1 s 12.0-14.7 [facility] HermannURINE QTZK9877-84-41 20:05:00>10[facility] HermannURINE CHEM 2016-08-16 20:05:59262Nsonfnqt HermannURINE HNFD2362-43-70 20:05:0033.9[facility] HermannURINE MUSS8239-18-83 20:05:20703Hlzjiyfc HermannURINE VUDZ7757-60-16 20:05:00>10[facility] HermannURINE XSTL8818-39-06 20:05:13092Rpharnel Joe URINE LPUF2040-69-81 20:05:0033.9[facility] HermannURINE WSCF8843-40-38 20:05:00 115[facility] AiibhfsKISXEJCROR1294-21-20 17:50:0071.2[facility] HermannHEMATOLOGY 2016-08-16 17:50:0018.2[facility] VrpepkbZAUBVMXLGV7159-37-41 17:50:006.8[facility] DrlkzhhLXAVAVGBLF9240-08-42 17:50:003.3[facility] EeybrffZLLUBRENUF0784-21-46 17:50:000.5[facility] IghzielNGLGSTRTVP0228-67-69 17:50:006.2[facility] [place] NODZNDBRLL4944-72-53 17:50:000.6[facility] VjguhxkHNDPKOOMGY2969-36-86 17:50:001.6 [facility] PfpnrfaLGPPIWJVGQ8759-20-88 17:50:000.3[facility] HermannHEMATOLOGY 2016-08-16 17:50:00 Test Item Value Reference Range Interpretation Comments PTT (test code = PTT) 65.2 s 22.9-35.8 [facility] GsvxzqwFCUBHMKAZF1117-43-62 17:50:001.19[facility] HermannHEMATOLOGY 2016-08-16 17:50:00 Test Item Value Reference Range Interpretation Comments PT (test code = PT) 15.4 s 12.0-14.7 [facility] TdqteojRSVTJADXAY9548-07-37 17:50:008.9[facility] HermannHEMATOLOGY 2016-08-16 17:50:14125Lwkbdzex WojszicUCBOPGKEKH3736-35-89 17:50:0017.2[facility] TdrpoxgDHBQKJAAUP9631-51-06 17:50:0032.3[facility] EvwlsdlKVXDKMADUI3271-72-14 17:50:00 Test Item Value Reference Range Interpretation Comments MCH (test code = MCH) 26.8 pg 27.0-31.0 [facility] YrxuacsWAJOHBLHTL2681-90-99 17:50:0035.9[facility] HermannHEMATOLOGY 2016-08-16 17:50:0011.6[facility] GtguxacLTOHGIMPWU7672-17-74 17:50:0083.0[facility] EudebaxWXISNLFPYU6767-91-47 17:50:004.32[facility] DtsfozgJSKAQLBQWJ4964-19-02 17:50:008.7[facility] IhkfbpvIXKRBMHCJY1777-40-95 17:50:0071.2[facility] TENRESOEKV6582-06-64 17:50:0018.2[facility] AbdxfvkKSUEXBNXYI5813-37-51 17:50:00 6.8[facility] QafgaajNYSGSTUOEK0702-84-71 17:50:003.3[facility] HermannHEMATOLOGY 2016-08-16 17:50:000.5[facility] BovitliKFJPFYDJRF2860-58-30 17:50:006.2[facility] DajxxwkCDCKCKENUM2499-51-12 17:50:000.6[facility] AmsvpgkNKDAMDZATO8144-08-60 17:50:001.6[facility] LsamkxqWSBMGLUAEZ3349-09-10 17:50:000.3[facility] [place] RNPYUQQWLS6462-69-44 17:50:00 Test Item Value Reference Range Interpretation Comments PTT (test code = PTT) 65.2 s 22.9-35.8 [facility] HopeaczXDGPRRMPCA3250-52-25 17:50:001.19[facility] HermannHEMATOLOGY 2016-08-16 17:50:00 Test Item Value Reference Range Interpretation Comments PT (test code = PT) 15.4 s 12.0-14.7 [facility] PigaobuLULMXKRGTK6652-54-73 17:50:008.9[facility] HermannHEMATOLOGY 2016-08-16 17:50:58932Rfhkmcji UbnpshuPWPRFDNHIO9687-24-23 17:50:0017.2[facility] EcsutpmXODLKWEGPX3981-69-52 17:50:0032.3[facility] YykkthoOSJKIMAEOO6559-30-14 17:50:00 Test Item Value Reference Range Interpretation Comments MCH (test code = MCH) 26.8 pg 27.0-31.0 [facility] TnlreleBTSIVHEIYV3122-44-01 17:50:0035.9[facility] HermannHEMATOLOGY 2016-08-16 17:50:0011.6[facility] XuakltzFKNKPFWYNY5047-13-40 17:50:0083.0[facility] CnbgkepLAOWHAJFUR1308-52-57 17:50:004.32[facility] GwjapvwZIBOXUGCGQ5211-61-80 17:50:008.7[facility] HermannCARDIAC ORLIVTX3241-74-24 11:16:000.13[facility] HermannCARDIAC HHCNFGQ7231-33-72 11:16:0039[facility] HermannCARDIAC ENZYMES 2016-08-16 11:16:000.026[facility] HermannCHEM QGIHI4602-97-69 11:16:001.5[facility] FswwqcrVJMLRHXBE8727-77-03 11:16:0054[facility] HermannCARDIAC IXKSQZR1275-98-38 11:16:000.13[facility] HermannCARDIAC IZYQLPU1833-11-78 11:16:0039[facility] [place] CARDIAC IDWASKF9894-99-20 11:16:000.026[facility] HermannCHEM ASUWX9097-58-54 11:16:001.5[facility] RbeafjnPYGBNTLBS2510-07-93 11:16:0054[facility] HermannCHEM WSRFD0384-99-00 07:20:002.2[facility] HermannCHEM YCHPB2415-75-94 07:20:002.2 [facility] HermannBACTERIAL - BGNHUYFI3273-49-92 07:06:00Positive 1*ABN*(08/16/16 1:06 AM)[facility]annBLOOD BANK GVAENHZ2065-23-59 07:06:00Negative (08/16/16 1:06 AM)[facility]annCARDIAC ZDNRHGO1334-92-01 07:06:000.05[facility] CARDIAC NBKEVKJ2292-36-95 07:06:0040[facility]annCARDIAC LKCDCNX6426-53-28 07:06:00<0.010[facility]annCHEM UVTNI9226-04-28 07:06:001.0[facility]annCHEM MLYSW8161-89-22 07:06:003.2[facility]annCHEM XUIUL1281-26-99 07:06:72222Ecueehdt HermannCHEM JZJJH8992-50-75 07:06:006.4[facility]annCHEM LTCPE3240-34-61 07:06:006[facility]annCHEM PYKBM0585-57-96 07:06:000.4 [facility]annCHEM PGQUC0078-37-85 07:06:003.2[facility]annCHEM PANEL 2016-08-16 07:06:0079[facility]annCHEM IINLZ5128-71-33 07:06:0020[facility] RrbtkxlRSNMMW5161-64-61 07:06:0069[facility] HkewenfZNKZIH4701-92-05 07:06:0050 [facility] SxkrepsKQGHIO7447-85-83 07:06:0033[facility] TrnezbaKMRTYU4197-07-64 07:06:0026[facility] DsnczqzHSIAUA8908-38-76 07:06:002.09[facility] HermannLIPIDS 2016-08-16 07:06:0010[facility] KamkkpmLVGXLZVLD9698-88-17 07:06:0037[facility]annPARATHYROID REGWNGD6392-27-30 07:06:001.33[facility]annPARATHYROID PHWZCVZ3203-70-80 07:06:001.25[facility]annSPECIAL QORUTYDZA2600-18-76 07:06:006.5[facility]annURINE AND GIGEO8758-30-90 07:06:00Clear (08/16/16 1:06 AM)[facility] AND BJIHQ6787-59-37 07:06:001.016[facility] AND DCHEV4101-84-27 07:06:005.5[facility] AND NMVNV8104-01-17 07:06:00Yellow *NA*(08/16/16 1:06 AM)[facility] AND YOICM8958-77-29 07:06:002[facility]UR[facility] AND BCHUD0287-58-09 07:06:00Negative (08/16/16 1:06 AM)[facility] AND NRQQE0854-74-31 07:06:001[facility]UR[facility] AND NDCTD6091-96-38 07:06:00Negative (08/16/16 1:06 AM)[facility] MLCFF4237-39-61 07:06:00Negative *NA*(08/16/16 1:06 AM)[facility] ANAKO3642-13-04 07:06:00Negative (08/16/16 1:06 AM)[facility] WOIJT4447-01-16 07:06:004[facility]annBACTERIAL - ZZOSOVWY4708-75-52 07:06:00 Positive 1*ABN*(08/16/16 1:06 AM)[facility]annBLOOD BANK KHMWXKE6715-25-53 07:06:00Negative (08/16/16 1:06 AM)[facility]annCARDIAC HGQDOIJ2682-59-69 07:06:000.05[facility]annCARDIAC KDRZFZY4985-53-20 07:06:0040[facility] CARDIAC UKSXXLM6651-68-22 07:06:00<0.010[facility]annCHEM YIHGK3184-52-12 07:06:001.0[facility]annCHEM URFSO7878-88-94 07:06:003.2[facility]annCHEM YTYOY5768-98-75 07:06:46623Zyifcwey HermannCHEM UPPQU0591-01-14 07:06:006.4 [facility]annCHEM MGXTW4585-45-24 07:06:006[facility]annCHEM PANEL 2016-08-16 07:06:000.4[facility]annCHEM WUHLY6089-25-02 07:06:003.2[facility]annCHEM GZTRN8360-84-08 07:06:0079[facility]annCHEM RFVCW0446-78-18 07:06:0020[facility] YtcsgokDGGXDM7439-01-43 07:06:0069[facility] HermannLIPIDS 2016-08-16 07:06:0050[facility] UzmieqlVXXRVG2424-24-09 07:06:0033[facility] FRWGMB6957-97-24 07:06:0026[facility] PkgzyuoSRSDRY0481-14-79 07:06:002.09[facility] JyfwxdmVGLSAU7087-79-63 07:06:0010[facility] JbfccxaHMBKTUGTB4343-75-32 07:06:0037 [facility]annPARATHYROID NVMJGUZ9543-86-19 07:06:001.33[facility] PARATHYROID ASDEVOX7621-92-94 07:06:001.25[facility] HermannSPECIAL CHEMISTRY 2016-08-16 07:06:006.5[facility]annURINE AND HSNQC5119-00-69 07:06:00Clear (08/16/16 1:06 AM)[facility] AND DVQNJ9762-03-19 07:06:001.016[facility]UR[facility] AND YRBIK0783-05-73 07:06:005.5[facility]UR[facility] AND STOOL 2016-08-16 07:06:00Yellow *NA*(08/16/16 1:06 AM)[facility] STOOL 2016-08-16 07:06:002[facility]annUR[facility] AND ZDRYL9145-15-76 07:06:00Negative (08/16/16 1:06 AM)[facility]UR[facility] AND DKFWN9506-83-07 07:06:001[facility]UR[facility] AND DYBFB1095-29-91 07:06:00Negative (08/16/16 1:06 AM)[facility] AND TCXZJ4950-48-85 07:06:00Negative *NA*(08/16/16 1:06 AM)[facility] AIDLT8927-35-43 07:06:00Negative (08/16/16 1:06 AM)[facility]UR[facility] AND LTNEP5374-80-88 07:06:004[facility] JodhjojXXRZFNIBKF3883-18-48 14:35:00 Test Item Value Reference Range Interpretation Comments PT (test code = PT) 14.3 s 12.0-14.7 [facility] RyzmajcLUAESVWDCT2981-24-98 14:35:001.08[facility]annHEMATOLOG[facility] 2015-10-12 14:35:00 Test Item Value Reference Range Interpretation Comments PTT (test code = PTT) 66.6 s 22.9-35.8 [facility] TkxeuzbAIHZOVNQLR9424-81-52 14:35:00 Test Item Value Reference Range Interpretation Comments PT (test code = PT) 14.3 s 12.0-14.7 [facility] SjmbngzGHZBHZBLYD9916-34-69 14:35:001.08Idm[facility] HermannHEMATOLOGY 2015-10-12 14:35:00 Test Item Value Reference Range Interpretation Comments PTT (test code = PTT) 66.6 s 22.9-35.8 [facility] XaqsajxZIRDLYCEYO8458-99-83 08:46:001.07[facility]annHEMATOLOGY 2015-10-12 08:46:00 Test Item Value Reference Range Interpretation Comments PT (test code = PT) 14.2 s 12.0-14.7 [facility] WgnemhjRUNNTZGOJK8345-80-60 08:46:00 Test Item Value Reference Range Interpretation Comments PTT (test code = PTT) 73.4 s 22.9-35.8 [facility] GnvwtuvEQWLDUEFZQ2928-47-08 08:46:001.07[facility]annHEMATOLOGY 2015-10-12 08:46:00 Test Item Value Reference Range Interpretation Comments PT (test code = PT) 14.2 s 12.0-14.7 [facility] MtgrjjfANQUIMNFWS2850-17-05 08:46:00 Test Item Value Reference Range Interpretation Comments PTT (test code = PTT) 73.4 s 22.9-35.8 [facility] OlhpqkrEZZJGYDPRG2989-96-51 01:03:00 Test Item Value Reference Range Interpretation Comments PTT (test code = PTT) 49.7 s 22.9-35.8 [facility] TvlvnexPHWRSSHQNE8608-21-65 01:03:00 Test Item Value Reference Range Interpretation Comments PTT (test code = PTT) 49.7 s 22.9-35.8 [facility]annCHEM VZQFS0431-59-87 07:07:0079[facility]annCHEM PANEL 2015-10-11 07:07:92001Bntqmiqw HermannCHEM IADOM4997-06-07 07:07:008.3[facility]annCHEM JOMTY2894-09-88 07:07:0024[facility]annCHEM MTDNC3399-75-40 07:07:0012[facility]annCHEM HWVTV0137-73-84 07:07:000.98[facility]annCHEM DBLEN3257-09-40 07:07:84964Ojsrzaea HermannCHEM UZPPJ1338-03-02 07:07:84456 [facility]annCHE[facility] MJUXW7245-71-43 07:07:004.2[facility]annCHEM PANEL 2015-10-11 07:07:0015.2[facility] YacrypiQXFYCDXPUD2840-13-91 07:07:009.9[facility] LfvglnmHGWDSHYDLO6243-08-00 07:07:003.40[facility] AmcfnwpWDIFCJAQYC9374-16-93 07:07:005.0[facility] RysfcrbIPMGSGCXXP9614-73-04 07:07:007.9[facility] [place] QTGDOUFPJZ8229-18-12 07:07:42128Bgqqkpvw XsknsgnZTMIJNRRZP8407-84-54 07:07:00 33.3[facility] RtzipwcMWVMJRPBNS5948-12-95 07:07:00 Test Item Value Reference Range Interpretation Comments MCH (test code = MCH) 29.0 pg 27.0-31.0 [facility] YybgtziDGPKPDEHXB6973-97-48 07:07:0087.0[facility]annHEMATOLOGY 2015-10-11 07:07:0029.6[facility] OwsuzwdYEUYJAQMMD1100-68-99 07:07:0014.8[facility]annCHEM GXKLZ3574-28-50 07:07:0079[facility]annCHEM WGDHC6815-12-51 07:07:93671Fggdsozh HermannCHEM QXXHC9960-27-29 07:07:008.3[facility]annCHEM NHZFQ3877-95-60 07:07:0024[facility]annCHE[facility] SVXWV3065-57-72 07:07:0012 [facility]annCHE[facility] IXOPT9082-89-50 07:07:000.98[facility]annCHEM PANEL 2015-10-11 07:07:03665Rjznfdhr HermannCHEM VFDLA5356-32-83 07:07:22853Upwhakfw HermannCHEM ZFORT8899-66-39 07:07:004.2[facility]annCHE[facility] SROOH8464-41-13 07:07:0015.2[facility] UfaqtetPEZNSJTAQN3228-56-73 07:07:009.9[facility] [place] MZEEWHSQFJ4272-44-07 07:07:003.40[facility] EmeraipNYWOVHTGIR9297-40-98 07:07:00 5.0[facility] HjxfcfvQBVOWIVQBQ3739-99-19 07:07:007.9[facility]annHEMATOLOGY 2015-10-11 07:07:97985Yvrowtmd QcnvoqpALUNZOIIKQ7108-82-94 07:07:0033.3[facility] PkhctgsGHLFGQCFSG1525-67-70 07:07:00 Test Item Value Reference Range Interpretation Comments MCH (test code = MCH) 29.0 pg 27.0-31.0 [facility] ApeawmyUFIISRMKXE8860-77-21 07:07:0087.0[facility]annHEMATOLOGY 2015-10-11 07:07:0029.6[facility] CeyjayoVFQFPVSZTV5652-67-78 07:07:0014.8[facility] UjgdisrBGRCBZWFZE1211-90-51 01:59:000.1[facility] QyesksyNGKQGZDBZW2956-63-50 01:59:001.4[facility] VvcaityECXIEPFOCW3809-94-88 01:59:007.6[facility] Joe BPJKRYZKGK3008-16-72 01:59:0073.6[facility] IhoqousRSPXMGILIG8800-03-04 01:59:00 16.7[facility] BkhfvrgCMVOMZEYNJ3391-94-43 01:59:004.0[facility]annHEMATOLOGY 2015-10-11 01:59:000.4[facility] NogjhgiBGCWMIDICL0648-75-21 01:59:000.7[facility] XyjfvddSCWZFLPYTY2734-58-48 01:59:000.9[facility] UuwpafcNTUVHRGWKW2543-63-60 01:59:0014.6[facility] WlikwceTIWNBEXHDA5467-34-31 01:59:20329Uytslkcc Joe IQXYSIUJUM4951-72-14 01:59:008.3[facility] OuokhctYGREAHGEUU5252-00-92 01:59:00 87.2[facility] FbnybfvEZKKFCXUMA1901-12-32 01:59:0033.4[facility]annHEMATOLOGY 2015-10-11 01:59:00 Test Item Value Reference Range Interpretation Comments MCH (test code = MCH) 29.1 pg 27.0-31.0 [facility] TnpdncyKYRPDQESQA9167-26-72 01:59:0029.6[facility]annHEMATOLOGY 2015-10-11 01:59:009.9[facility] VujsjujMWJRFEWDZF0091-79-44 01:59:005.4[facility] SjjosmqTNDSIYUQQU1851-23-45 01:59:003.39[facility] QpaeyweXVITYLUNYL2096-33-92 01:59:000.1[facility] WiiucbpNVGVOGDJPX9981-39-97 01:59:001.4[facility] YYFHVEUBNJ0519-25-01 01:59:007.6[facility] LaohuixNRKPBRJTQJ3820-86-08 01:59:00 73.6[facility] JpfzixvPDFTXLWAZN7117-21-77 01:59:0016.7[facility]annHEMATOLOGY 2015-10-11 01:59:004.0[facility] ExipuniAHTAIOFNXE1292-71-19 01:59:000.4[facility] WxmzmxaPJLVSGJOAP5573-44-08 01:59:000.7[facility] TxnuflcMXBNGUJHFF0886-69-06 01:59:000.9[facility] NswomzjUMPHKZGTAJ9233-65-94 01:59:0014.6[facility] [place] HWQVMIDTFI3536-33-39 01:59:65392Apfhvtde KsrzkbvIEOYFCDOBK1712-82-12 01:59:008.3 [facility] PjuftwjEKPGATDBZV1313-44-48 01:59:0087.2[facility]annHEMATOLOGY 2015-10-11 01:59:0033.4[facility] UatsdypBHQOCOQUPS8671-08-12 01:59:00 Test Item Value Reference Range Interpretation Comments MCH (test code = MCH) 29.1 pg 27.0-31.0 [facility] TeccjnoVDTPQGJHLU2493-68-37 01:59:0029.6[facility]annHEMATOLOGY 2015-10-11 01:59:009.9[facility] OcqbegoTBNZJBISAB8315-53-97 01:59:005.4[facility] HveiiivVENHUMJCEW5902-16-32 01:59:003.39[facility]annCHEM NLYOL6321-40-26 06:53:003.3[facility]annCHEM WUKYU6207-33-82 06:53:001.8[facility] HYRGSTMJFOGU6118-63-22 06:53:0012.7[facility] PvosutpSUZQFNONAKAP9606-79-72 06:53:008.2[facility] JkikqyoOQXWJUTOMWZZ5810-52-36 06:53:02557Pooaxypc Joe LIGRZYGYJQKY7360-08-09 06:53:0027[facility] AscpcgdKUWFDTBIEADU3577-81-64 06:53:00 4.7[facility] LcpylaeGHCMMKYWWMNK0673-27-43 06:53:78127Avpjyvyv [place] EIOYUWBWIAYN0503-09-21 06:53:0083[facility] OfgtssmGUZUMEPQSTDB4347-50-94 06:53:00 0.94[facility] KcesjbkHYUYIPHENFWK5456-44-08 06:53:0012[facility] [place] DQMOBBVJUZDN3334-95-47 06:53:20306Mfdcpkmt ZpeuluxEYORLCIEIB7078-28-07 06:53:00 0.1[facility] EtkhfnbKMSWKYKHMS1668-76-62 06:53:000.2[facility]annHEMATOLOGY 2015-10-10 06:53:0019.0[facility] RniwwvzXDQOPCYNJH4316-36-47 06:53:005.6[facility] RmfrkxtGLQPIRHMBF8888-98-05 06:53:0072.1[facility] RsswlwxSPJWDBPDPX0980-66-49 06:53:000.1[facility] HgbebzoYOIWMYVRRQ5154-88-53 06:53:001.7[facility] [place] XYEGRGGGFS6792-62-22 06:53:001.6[facility] PeutfwcZKJVTVPITF8371-66-91 06:53:000.8 [facility] IppukrwNXAWZZKWFV2504-01-47 06:53:003.0[facility]annHEMATOLOGY 2015-10-10 06:53:0087.7[facility] IfhtofaIHVSWJTXQP7414-13-12 06:53:00 Test Item Value Reference Range Interpretation Comments MCH (test code = MCH) 29.2 pg 27.0-31.0 [facility] KhpugwzGPWDXWODCI9306-29-02 06:53:0015.1[facility]annHEMATOLOGY 2015-10-10 06:53:03572Dkconauh RzyfujkCFWCQABKTB9402-86-97 06:53:0033.3[facility] BgxkddzXIKRBHXGKG2378-68-35 06:53:004.2[facility] FzydfeeBOLZQJARQH7746-46-37 06:53:003.35[facility] CvqsqicETFFCVGARC0951-56-25 06:53:009.8[facility] [place] BHWKWRWXSJ8612-36-88 06:53:0029.4[facility] HtjrpvaXECOOZDRIT3089-40-95 06:53:00 8.3[facility]annCHEM ULKNZ8185-63-12 06:53:003.3[facility]annCHEM PANEL 2015-10-10 06:53:001.8[facility] FueairhWMPFWJGLKUCA4213-40-47 06:53:0012.7 [facility] MyjwvjtYRKHHNPZEVSX8849-84-21 06:53:008.2[facility] HermannELECTROLYTES 2015-10-10 06:53:60065Itkerpwa VxoxxwzUUCUNJFFNTBD4893-63-68 06:53:0027[facility] DhileseFZNIQGCZTKSW8756-14-27 06:53:004.7[facility] EwzbnltHJIQTKHIDFKR1004-01-93 06:53:43566Mxvlgbhz LulyylhZTPBZYBTRNXO3421-96-08 06:53:0083[facility] [place] FRDNUFGVJDGF3261-64-14 06:53:000.94[facility] GtohkzvZBNNNHWHGKJU8480-42-53 06:53:0012[facility] QbtzrwgGLUDFONLIWFZ2490-80-01 06:53:71286Yinflhqr Joe BKDBHVMCRB9988-15-96 06:53:000.1[facility] EvhecngBNKIPWKRUH0871-05-92 06:53:000.2 [facility] JacoeakLDGYMHTEKV4225-46-09 06:53:0019.0[facility]annHEMATOLOGY 2015-10-10 06:53:005.6[facility] NdhnmbeXWXJVWHSWL2499-37-90 06:53:0072.1[facility] WigapphAQREBGMZWL5664-96-35 06:53:000.1[facility] DgebgvqNQATDTMLFQ5468-31-12 06:53:001.7[facility] YsjoheaCBXJLLCORA4964-72-40 06:53:001.6[facility] KFNSSFSIYC3151-98-40 06:53:000.8[facility] ZekoppnEGMEATASMR2871-38-19 06:53:003.0 [facility] WjmayzjWOLBWLOEUN1366-54-86 06:53:0087.7[facility]annHEMATOLOGY 2015-10-10 06:53:00 Test Item Value Reference Range Interpretation Comments MCH (test code = MCH) 29.2 pg 27.0-31.0 [facility] YiymmksFJQRDHFVNK5116-28-13 06:53:0015.1[facility]annHEMATOLOGY 2015-10-10 06:53:63465Bkurador UyucnraHPVQWHQIRK2762-26-49 06:53:0033.3[facility] JewdqdkIHLZDBTVKN4470-83-48 06:53:004.2[facility] BaeuwhiPEFVRCUNEY3214-40-93 06:53:003.35[facility] WndofpzLASUTYMPGJ6614-00-17 06:53:009.8[facility] NKYZGIKBHM4350-36-28 06:53:0029.4[facility] OegvdxbHBRUYABZOS3122-90-15 06:53:00 8.3[facility]annCHEM LNXTE3817-75-09 22:21:0068[facility]annCHEM PANEL 2015-10-09 22:21:0012[facility] HermannCHEM NJSER3567-70-31 22:21:01157Zlfrvdke HermannCHEM XFLSG9203-56-93 22:21:001.11[facility]annCHEM DPZFE8701-12-20 22:21:008.2[facility]annCHEM LSULQ1253-55-48 22:21:0026[facility]annCHEM WSIFH0473-78-65 22:21:59157Ewzlirxe HermannCHEM IFVJL0010-48-63 22:21:004.6 [facility]annCHE[facility] JBGHM0708-22-50 22:21:10408Dsvvgexs HermannCHEM PANEL 2015-10-09 22:21:0014.6[facility] EcinbqhPLRWUJECDP8127-56-28 22:21:000.3[facility] BchztllANOUCQFOUG0105-43-63 22:21:002.9[facility] WfnndcyYFJGZQNWAE0094-60-05 22:21:001.4[facility] ZcovoivMFAZFTSDGZ8934-23-47 22:21:005.5[facility] [place] XFYGPPDMJO5051-88-64 22:21:0027.4[facility] EmoixmuBDLKNSAJVP5415-66-38 22:21:00 8.3[facility] LymddxhEULQAWGLKB0277-12-27 22:21:0057.9[facility]annHEMATOLOGY 2015-10-09 22:21:000.9[facility] NzcbeijBKSOJFUZNE0098-15-94 22:21:000.4[facility] YxowqpjIRPGMMQGVW6105-03-58 22:21:001.11[facility] YzlpplpCOUNIXWQDO3115-52-70 22:21:00 Test Item Value Reference Range Interpretation Comments PT (test code = PT) 14.6 s 12.0-14.7 [facility]cuqxwfPUVPYMPGAU1494-80-87 22:21:00 Test Item Value Reference Range Interpretation Comments Split Point (test code = Split Point) 2.9 min [facility]DsghjwdORLTMBVYZU5777-12-52 22:21:00 Test Item Value Reference Range Interpretation Comments ACT (TEG) (test code = ACT (TEG)) 409 s 86-118 [facility] HospitalRmisfmgIMWZCVJSIQ5939-15-24 22:21:00 Test Item Value Reference Range Interpretation Comments R-time (test code = R-time) 3.8 min 0.4-0.7 [facility] HospitalNtyynivEZEQFHYWRC9514-28-95 22:21:00Citrated Whole Blood (10/09/15 5:21 PM)[facility] HospitalReotnkfURIAZSAPPC6829-70-97 22:21:000.4[facility] 2015-10-09 22:21:0010.6[facility] IqmyvzwYXSDDMZIBH0556-78-94 22:21:00 Test Item Value Reference Range Interpretation Comments K-time (test code = K-time) 2.1 min 0.6-2.3 [facility] HospitalRbcewkeNFBIOCFKAQ8003-57-40 22:21:00 Test Item Value Reference Range Interpretation Comments Max Amp (test code = Max Amp) 68 mm 52-71 [facility] CenterDjjixulSVQIQKWIMS9660-55-21 22:21:00 Test Item Value Reference Range Interpretation Comments Angle (test code = Angle) 63 degrees 64-80 [facility] CenterannCHEM CTGQQ2185-48-58 22:21:0068[facility]annCHEM PANEL 2015-10-09 22:21:0012[facility]annCHE[facility] LYMLD0221-89-04 22:21:13281Xvofgvpd HermannCHEM UIEAP6757-21-96 22:21:001.11[facility]annCHEM CSSWB7657-22-41 22:21:008.2[facility]annCHEM LNWZK9028-90-87 22:21:0026[facility]annCHE[facility] DOMVN2275-34-53 22:21:90923Pxbnmmpa [facility]annCHE[facility] VJFNR7290-11-50 22:21:004.6 [facility]annCHE[facility] KYYAY4802-74-42 22:21:74900Famcqbfw HermannCHEM PANEL 2015-10-09 22:21:0014.6[facility] RjorlasFAQJTMJIHP9561-20-38 22:21:000.3[facility] YvauxzvJMJJCMAFRQ6183-29-35 22:21:002.9[facility] LufezidEIIAGBXOIV6488-29-54 22:21:001.4[facility] ZoxpeovWPXGDPXAEO5018-06-18 22:21:005.5[facility] [place] ESOPQGDPKX2947-42-13 22:21:0027.4[facility] WzxgeklVOYHTQJGWX0974-90-26 22:21:00 8.3[facility] EbnizopIVUKCAWCPU3493-73-44 22:21:0057.9[facility]annHEMATOLOGY 2015-10-09 22:21:000.9[facility] NateeklTYSYBYVYTW4107-85-55 22:21:000.4[facility] OvlreucJMQYQZGSVY5972-32-28 22:21:001.11[facility] GnemzqcBVQMBKCTON2637-47-99 22:21:00 Test Item Value Reference Range Interpretation Comments PT (test code = PT) 14.6 s 12.0-14.7 [facility] CenterUrbrcfoUGBKFOFSLG2372-64-20 22:21:00 Test Item Value Reference Range Interpretation Comments Split Point (test code = Split Point) 2.9 min [facility] PmiriiyIKPYSYXZND4239-51-12 22:21:00 Test Item Value Reference Range Interpretation Comments ACT (TEG) (test code = ACT (TEG)) 409 s 86-118 [facility] CenterVuiklakOUNIPZZATJ7882-89-85 22:21:00 Test Item Value Reference Range Interpretation Comments R-time (test code = R-time) 3.8 min 0.4-0.7 [facility] CenterCamkqsrYVWKTXFNHO2861-27-55 22:21:00Citrated Whole Blood (10/09/15 5:21 PM)[facility] TkqzxeeMSBCFVXTXQ2549-00-42 22:21:000.4[facility]annHEMATOLOGY 2015-10-09 22:21:0010.6[facility] ValrgsyDZTHSTGJAI4045-36-00 22:21:00 Test Item Value Reference Range Interpretation Comments K-time (test code = K-time) 2.1 min 0.6-2.3 [facility] ZezgzydRHGCWVQWDZ7627-68-67 22:21:00 Test Item Value Reference Range Interpretation Comments Max Amp (test code = Max Amp) 68 mm 52-71 [facility] VzpxqwxTLLSZMJHSJ6362-32-78 22:21:00 Test Item Value Reference Range Interpretation Comments Angle (test code = Angle) 63 degrees 64-80 [facility] CenterXzmawndVXSFPIAXWK7215-74-96 14:26:00Negative *NA*(10/09/15 9:26 AM) [facility] CenterIfupbezVFAUVJLTIS5050-79-20 14:26:00Negative *NA*(10/09/15 9:26 AM) [facility]CHE[facility] JXUYC4800-47-55 07:13:001.4[facility]annCHEM PANEL 2015-10-09 07:13:001.4[facility] HkrdclrDYSODTSNJV2866-35-74 07:08:000.0[facility] WoxlmrlKQMHGJNEUL9349-19-06 07:08:009.0[facility] BixnqynEQHHDVFKWE8545-77-52 07:08:00 Test Item Value Reference Range Interpretation Comments K-time (test code = K-time) 1.6 min 0.6-2.3 [facility] CenterBtwmyxgCMFPNLZQLI7277-06-05 07:08:00 Test Item Value Reference Range Interpretation Comments R-time (test code = R-time) 1.2 min 0.4-0.7 [facility] YifbgbpSXCECVXLAR4177-19-38 07:08:00 Test Item Value Reference Range Interpretation Comments Split Point (test code = Split Point) 0.8 min [facility] CenterTbkjjaiKMYBESGLAJ8031-59-75 07:08:00 Test Item Value Reference Range Interpretation Comments Max Amp (test code = Max Amp) 64 mm 52-71 [facility] ItyfslmOZKQXSDWPC9689-12-84 07:08:00 Test Item Value Reference Range Interpretation Comments Angle (test code = Angle) 68 degrees 64-80 [facility] CenterGkfyjiqZFNBJYLNRE4375-94-22 07:08:00 Test Item Value Reference Range Interpretation Comments ACT (TEG) (test code = ACT (TEG)) 167 s 86-118 [facility] CenterLpowkdnXRJVCKEUNB5766-22-03 07:08:00Citrated Whole Blood (10/09/15 2:08 AM)[facility] CenterHqykcdxTBISFUZASJ1913-69-70 07:08:000.0[facility]AT[facility] 2015-10-09 07:08:009.0[facility] CenterRrbicegPZFYERKWKR7465-55-87 07:08:00 Test Item Value Reference Range Interpretation Comments K-time (test code = K-time) 1.6 min 0.6-2.3 [facility] CenterVelhwezVBNWNVNKNT5245-40-00 07:08:00 Test Item Value Reference Range Interpretation Comments R-time (test code = R-time) 1.2 min 0.4-0.7 [facility] CenterUrtkoawSJBQJDXOZI5264-04-07 07:08:00 Test Item Value Reference Range Interpretation Comments Split Point (test code = Split Point) 0.8 min [facility] CenterWeoyncrUNFBKNNPGD9346-70-14 07:08:00 Test Item Value Reference Range Interpretation Comments Max Amp (test code = Max Amp) 64 mm 52-71 [facility] CenterDawpppeZBVQGYEQAP0273-97-03 07:08:00 Test Item Value Reference Range Interpretation Comments Angle (test code = Angle) 68 degrees 64-80 [facility] CenterYfqkjzvRVZYGOHEMP2943-06-28 07:08:00 Test Item Value Reference Range Interpretation Comments ACT (TEG) (test code = ACT (TEG)) 167 s 86-118 [facility] CenterXnpgekdBIXMNOOMSN8014-90-75 07:08:00Citrated Whole Blood (10/09/15 2:08 AM)[facility]
--- NOTE | 2020-08-19 16:21 | RAD REPORT ---
EXAM DESCRIPTION: Ameena Berry Left08/19/2020 3:34 pm CLINICAL HISTORY: Left leg pain status post injury FINDINGS: No fracture is seen
--- NOTE | 2020-08-19 16:22 | RAD REPORT ---
EXAM DESCRIPTION: RAD - Ankle Left 3 View -08/19/2020 3:34 pm CLINICAL HISTORY: Left ankle pain status post injury FINDINGS: No fracture or dislocation is seen. Vascular calcifications are present
--- NOTE | 2020-08-19 16:31 | ER ---
Nurse's Notes [facility] Name: Valentín Senior Jr Age: 75 yrs Sex: Male : 1945 Arrival Date: 08/19/2020 Time: 13:20 Bed 16 Private MD: Diagnosis: Contusion of the Left Lower Leg Presentation: 08/19 13:34 Chief complaint: Patient states: L lower leg pain that began 07/17/20 after falling. Pt ss reports that the bruising is getting better, but the bump on his leg is not going away. Coronavirus screen: Client denies travel out of the [place] in the last 14 days. Ebola Screen: Patient denies exposure to infectious person. Patient denies travel to an Ebola-affected area in the 21 days before illness onset. Initial Sepsis Screen: Does the patient meet any 2 criteria? No. Patient's initial sepsis screen is negative. Does the patient have a suspected source of infection? No. Patient's initial sepsis screen is negative. Risk Assessment: Do you want to hurt yourself or someone else? Patient reports no desire to harm self or others. Onset of symptoms was July 17, 2020. 13:34 Method Of Arrival: Wheelchair ss 13:34 Acuity: ILANA 4 ss Historical: - Allergies: 13:37 Morphine; ss - PMHx: 13:37 Diabetes - IDDM; Pacemaker; Atrial Fib; CVA; Hernia; Pancreatitis; Pneumonia; CAD; ss - Immunization history:: Adult Immunizations up to date. - Social history:: Smoking status: Patient denies any tobacco usage or history of. Screenin:29 Abuse screen: Denies threats or abuse. Denies injuries from another. Nutritional ph screening: No deficits noted. Tuberculosis screening: No symptoms or risk factors identified. Fall Risk None identified. Assessment: 16:30 General: Appears in no apparent distress. comfortable, Behavior is calm, cooperative, ph appropriate for age. Pain: Complains of pain in left leg. Neuro: Level of Consciousness is awake, alert, obeys commands, Oriented to person, place, time, situation. Cardiovascular: Capillary refill < 3 seconds in bilateral fingers Patient's skin is warm and dry. Respiratory: Airway is patent Respiratory effort is even, unlabored, Respiratory pattern is regular, symmetrical. Derm: Skin is intact, Skin is pink, warm \T\ dry. 16:31 Reassessment: Patient appears in no apparent distress at this time. Patient is alert, ph oriented x 3, equal unlabored respirations, skin warm/dry/pink. JORGE ALBERTO Lepe at bedside to speak w/ pt, pt declined US of L leg to check for DVT, states that he will return to ED if syptoms worsen. Vital Signs: 13:34 BP 98 / 57; Pulse 64; Resp 16; Temp 97.5(TE); Pulse Ox 97% on R/A; Weight 69.4 kg; ss Height 5 ft. 8 in. (172.72 cm); Pain 0/10; 16:32 BP 108 / 56; Pulse 67; Resp 18; Temp 98.0; Pulse Ox 97% on R/A; ph 13:34 Body Mass Index 23.26 (69.40 kg, 172.72 cm) ED Course: 13:20 Patient arrived in ED. am4 13:36 Triage completed. ss 13:37 Arm band placed on right wrist. ss 15:34 XRAY Ankle LEFT 3 view In Process Unspecified. EDMS 15:34 XRAY Tib Fib LEFT In Process Unspecified. EDMS 15:45 Carolina Choi, RN is Primary Nurse. ph 15:48 Roberth Archuleta PA is PHCP. jmm 15:48 Abdoulaye Zuniga MD is Attending Physician. [facility] 16:29 Patient has correct armband on for positive identification. Call light in reach. Pulse ph ox on. NIBP on. 16:32 No provider procedures requiring assistance completed. Patient did not have IV access ph during this emergency room visit. Administered Medications: No medications were administered Outcome: 16:31 Discharge ordered by . [facility] 16:50 Patient left the ED. ph 16:50 Discharged to home via wheelchair, with significant other. ph 16:50 Condition: good 16:50 Discharge instructions given to patient, Instructed on discharge instructions, follow up and referral plans. Demonstrated understanding of instructions, follow-up care. Signatures: Dispatcher [employer] EDMS Roberth Archuleta PA PA jmm Smirch, Shelby, RN RN Carolina Choi RN RN Phylicia Ayoub am4
--- NOTE | 2020-08-19 16:31 | EDPHYS ---
Physician Documentation [facility] Name: Valentín Senior Jr Age: 75 yrs Sex: Male : 1945 Arrival Date: 08/19/2020 Time: 13:20 Bed 16 Private MD: ED Physician Abdoulaye Zuniga HPI: 08/19 16:00 This 75 yrs old Male presents to ER via Wheelchair with complaints of Fall jmm Injury. 16:00 Details of fall: The patient fell from an upright position. Onset: The symptoms/episode jmm began/occurred acutely. Associated injuries: The patient sustained left lower leg. This is a 75 year old male that fell inder ciaran that presents to the ED with complaints of left lower leg pain which has been ongoing since. Worse on weight bearing. patient currently denies pain. Denies other injury. Historical: - Allergies: 13:37 Morphine; ss - PMHx: 13:37 Diabetes - IDDM; Pacemaker; Atrial Fib; CVA; Hernia; Pancreatitis; Pneumonia; CAD; ss - Immunization history:: Adult Immunizations up to date. - Social history:: Smoking status: Patient denies any tobacco usage or history of. ROS: 16:00 Constitutional: Negative for fever, chills, and weight loss, Cardiovascular: Negative jmm for chest pain, palpitations, and edema, Respiratory: Negative for shortness of breath, cough, wheezing, and pleuritic chest pain. 16:00 MS/extremity: Positive for injury or acute deformity, pain. 16:00 All other systems are negative. Exam: 16:00 Constitutional: This is a well developed, well nourished patient who is awake, alert, jmm and in no acute distress. Head/Face: atraumatic. Eyes: EOMI, no conjunctival erythema appreciated ENT: Moist Mucus Membranes Neck: Trachea midline, Supple Chest/axilla: Normal chest wall appearance and motion. Cardiovascular: Regular rate and rhythm. No edema appreciated Respiratory: Normal respirations, no respiratory distress appreciated Abdomen/GI: Non distended, soft Back: Normal ROM 16:00 Skin: ecchymosis noted to the left lower leg, left anterior tibia ttp, < 2 sec distal cap refill, compartments are soft, NVI. 16:00 Neuro: Orientation: is normal, Mentation: is normal, Memory: is normal. Vital Signs: 13:34 BP 98 / 57; Pulse 64; Resp 16; Temp 97.5(TE); Pulse Ox 97% on R/A; Weight 69.4 kg; ss Height 5 ft. 8 in. (172.72 cm); Pain 0/10; 16:32 BP 108 / 56; Pulse 67; Resp 18; Temp 98.0; Pulse Ox 97% on R/A; ph 13:34 Body Mass Index 23.26 (69.40 kg, 172.72 cm) ss MDM: 15:54 Patient medically screened. [facility] 16:27 Data reviewed: vital signs, nurses notes. Counseling: I had a detailed discussion with patrick the patient and/or guardian regarding: the historical points, exam findings, and any diagnostic results supporting the discharge/admit diagnosis, radiology results, the need for outpatient follow up, to return to the emergency department if symptoms worsen or persist or if there are any questions or concerns that arise at home. Refusal of service: The patient/guardian displays adequate decision making capability and despite a detailed discussion of alternatives, benefits, risks, and consequences refuses: Ultrasound for DVT. ED course: Patient advised to follow up with pcp for reevaluation. Xrays negative. Patient is otherwise given strict return precautions. Patient understood and agrees with the plan of care. . 08/19 15:00 Order name: XRAY Ankle LEFT 3 view; Complete Time: 16:27 ss 08/19 15:00 Order name: XRAY Tib Fib LEFT; Complete Time: 16:27 ss Administered Medications: No medications were administered Disposition: 17:31 Co-signature as Attending Physician, Abdoulaye Zuniga MD I agree with the assessment and peter plan of care. Disposition: 08/19/20 16:31 Discharged to Home. Impression: Contusion of the Left Lower Leg. - Condition is Stable. - Discharge Instructions: Contusion. - Medication Reconciliation Form, Thank You Letter, Antibiotic Education, Prescription Opioid Use form. - Follow up: Private Physician; When: 2 - 3 days; Reason: Recheck today's complaints, Continuance of care, Re-evaluation by your physician. Signatures: Dispatcher [employer] Abdoulaye Hartley MD MD cha Mickail, Joel, PA PA jmm Smirch, Shelby, RN RN Carolina Choi RN RN ph Corrections: (The following items were deleted from the chart) 16:50 16:31 08/19/2020 16:31 Discharged to Home. Impression: Contusion of the Left Lower Leg. ph Condition is Stable. Forms are Medication Reconciliation Form, Thank You Letter, Antibiotic Education, Prescription Opioid Use. Follow up: Private Physician; When: 2 - 3 days; Reason: Recheck today's complaints, Continuance of care, Re-evaluation by your physician. patrick
[2020-08-19 17:04] VITALS: O2SAT 97
[2020-08-19 17:05] VITALS: BP 108/56; TEMP 98
== END 2020-08-19 16:50 | disposition home or self-care (01) ==
LOC: ER 13:02
DX: S80.12XA Contusion of left lower leg, initial encounter (principal); W19.XXXA Unspecified fall, initial encounter; Y93.9 Activity, unspecified; Y92.9 Unspecified place or not applicable; Z88.5 Allergy status to narcotic agent; Z95.0 Presence of cardiac pacemaker
CPT/HCPCS: 99283

== ENCOUNTER 2020-08-21 09:17 | Emergency (ER) | payer OTHER ==
--- OUTSIDE RECORDS SUMMARY | 2020-08-21 09:22 | XMS REPORT | Continuity of Care Document ---
:1945 Author Organization [facility] Information Curriculet Care Team Providers Name Role Phone [facility] Fanbouts Unavailable Un available Problems Problem Status Onset Classification Date Comments Sourc e Date Reported Methicillin Active 08/16/19 Problem 08/21/2016 Nares, 08/16/2016 [facility] resistant Problem added by Dis cern Expert. 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 DYSTHYMIC DISORDER Active [facility] UNSP PHYSEAL Active [facility] s FRACTURE OF LOWER Me dical END OF UL Center Medications Medication Details Route Status Patient Ordering Order Source Instructions Provider Date bacitracin-polym Notes: (Same As: No Longer 07/26 [facility] yxin B topical Polysporin) Active 2017 Medic al [place] Neosporin 1 appl, Route: Inactive Michael as TOP, Daily, Drug 2017 Medical form: OINT, Center Start date: 08/18/16 15:07:00 ARTIST MODEL, Duration: 30 day, Stop date: 09/17/16 9:00:00 ARTIST MODEL apixaban 5 MG 5 mg = 1 [...] Oral Tablet PO, Daily, # 30 2016 [facility] florin tab, 0 Refill(s) Center finasteride 5 mg 5 mg = 1 tab, Inactive [place] oral tablet PO, Daily, # 30 2016 [facility] florin tab, 0 Refill(s) Center DULoxetine 60 [...] Oral Tablet PO, Daily, # 30 2016 [facility] florin tab, 0 Refill(s) Center finasteride 5 mg 5 mg = 1 tab, Inactive [place] oral tablet PO, Daily, # 30 2016 [facility] florin tab, 0 Refill(s) Center DULoxetine 60 [...] oral tablet PO, Daily, # 30 2016 [facility] florin tab, 0 Refill(s) Center omeprazole 20 mg 20 mg = 1 tab, Inactive [place] oral enteric PO, BID, # 30 2017 Medic al coated tablet tab, 0 Refill(s) C enter tamsulosin 0.4 0.4 mg = 1 cap, Inactive [place] mg oral capsule PO, Daily, # 30 2017 Medical cap, 0 Refill(s) Center Omeprazole PO, Daily, 0 Inactive 08/18[facility] [place] Refill(s[place] 2017 [facility] Center metoprolol 25 mg = 1 tab, [place] tartrate 25 mg PO, BID, # 180 2017 [place] dical oral tablet tab, 0 Refill(s) Geraldine [...] mg 60 mg = 1 cap, Inactive 08/18[facility] [place] oral delayed PO, Daily, # 30 [...] 2017 Medic al Injectable Over: 1 hr, Clifford Solution Route: IV, 250, Drug form: INJ, ONCE, Priority: STAT, Dosing Weight 82 kg, Start date: 08/18/16 8:56:00 ARTIST MODEL, Duration: 1 doses or times, Stop date: 08/18/16 8:56:00 ARTIST MODEL Tylenol Notes: Do not Inactive [place] exceed 4 gm/day. 2017 Medical (Same as: Clifford Tylenol) Magnesium Oxide Notes: (Same as: Inactive [facility] Mag-Ox 400) 2017 [facility] Magnesium oxide Clifford [id number] elemental magnesium Dose=____mg magnesium oxide (___mg elemental magnesium) Metoprolol Notes: (Same as: Inactive Bette Lopressor) Push 2017 Medical over 2 minutes Center Robitussin 30 mg, Route: [place] Longer [place] CoughGels PO, Q6H, Dosing Active 2017 Medica l Weight 82, kg, Center Start date: 08/18/16 0:00:00 ARTIST MODEL, Duration: 30 day, Stop date: 09/16/16 18:00:00 ARTIST MODEL Eliquis Notes: Same as: No Longer Michael as Eliquis Active [address] [place] [address] benzocaine-menth Notes: Cepacol No Longer [facility] ol topical lozenges Active 2017 Medical Dispense 1 box = Center 16 lozenges (Same As: Cepacol Lozenges) Albuterol 0.833 Notes: (Same as: No Longer 08/18 Bette MG/ML / Duoneb) Active 2017 [facility] Ipratropium [place] 0.167 MG/ML Inhalant Solution [DuoNeb] metoprolol Notes: (Same as: No Longer Bette tartrate Lopressor) Active 2017 Medical 12.5mg=1/4 X 50 Center mg tab. Metoprolol Notes: (Same as: Inactive [place] Lopressor) Push 2017 Medical over 2 minutes Center Acetaminophen Notes: Max Inactive Michael as acetaminophen = 2017 Medical 4000mg/day (4 Center gm/day). (Same as: Tylenol) Magnesium Oxide Notes: (Same as: Inactive [place] Mag-Ox 400) 2017 Medical Magnesium oxide Center [id number] elemental magnesium Dose=____mg magnesium oxide (___mg elemental magnesium) Tramadol Notes: Not to Inactive [place] exceed 2017 Medical 400mg/day. (Same Center As: Ultram) atorvastatin Notes: (Same as: No Longer [place] Lipitor) Active 2017 Medical Center insulin detemir Notes: Same as No Longer [place] Levemir Do not Active 2017 Medical hold insulin Center without contacting prescriber WASTE: F/P - Black; E - Municipal Trash Bin "single patient use only" Protonix Notes: Tablet Inactive [place] should not be 2017 Medical chewed or Center crushed. (Same as: Protonix) Insulin Glargine 5 unit, Route: Inactive [place] 100 UNT/ML SUB-Q, Daily, 2017 Medical Injectable Dosing Weight Center Solution 82, kg, Start date: 08/16/16 9:00:00 ARTIST MODEL, Duration: 30 day, Stop date: 09/14/16 9:00:00 ARTIST MODEL Docusate Sodium Notes: (Same as No Longer [place] 50 MG / Senokot-S) Active 2016 Medical sennosides, DETENTION Equiv. to Center 8.6 MG Oral Nicolasa-Colace. Tablet Insulin, Aspart, Notes: [place] in No Longer [place] Human palms of hands Active 2017 Medical [...] Blood Glucose Results, Start date: 08/16/16 4:31:00 ARTIST MODEL, Duration: 30 day, Stop date: 09/15/16 4:30:00 ARTIST MODEL Dextrose 50% 12.5 gm, 25 mL, No Longer H [place] Syringe Route: IVP, Drug Active 2016 Medical Form: INJ, Center Dosing Weight 82, kg, PRN, PRN Blood Glucose Results, Start date: 08/16/16 4:31:00 ARTIST MODEL, Duration: 30 day, Stop date: 09/15/16 4:30:00 ARTIST MODEL heparin additive 500 mL, Rate: No Longer [place] 25,000 unit [14 20.68 ml/hr, Active 2016 Med ical unit/kg/hr] + Infuse over: Cente r Premix Diluent 24.2 hr, Route: Dextrose 5% 500 IV, Dosing mL Weight 73.84 kg, Total Volume: 500 mL, Start date: 08/16/16 4:31:00 ARTIST MODEL, Duration: 30 day, Stop date: 09/15/16 4:30:00 ARTIST MODEL Magnesium Notes: WASTE: Inactive [place] Sulfate F/P - Sink; E - 2017 [facility] [place] [facility] Trash Clifford Bin Magnesium 2 gm, Route: Inactive Bette Sulfate IVPB, Drug form: 2016 Medical INJ, ONCE, Center Dosing Weight 82, kg, Start date: 08/16/16 3:18:00 ARTIST MODEL, Duration: 2 hr, Stop date: 08/16/16 3:18:00 ARTIST MODEL Norepinephrine Notes: Not for No Longer Bette [...] Total Volume: 20, Start date: 08/16/16 1:48:00 ARTIST MODEL, Durati... tramadol 50 mg = 1 tab, Active [place] hydrochloride 50 PO, Q6H, PRN 2016 Me dical MG Oral Tablet Pain Score 6-10, Center X 7 day, # 15 tab, 0 Refill(s) insulin detemir 8 unit, SUB-Q, Active [place] 100 units/mL Daily, you can 2016 [facility] subcutaneous increase your Cente r [...] day, # 20 tab, 0 Refill(s) Amylases 46031 1 cap, PO, BID, Active H [place] UNT / PRN snack, 0 2015 Medical Endopeptidases Refill(s) Center 34029 UNT / Lipase 6000 UNT Enteric Coated [...] Refill(s) Insulin, Aspart, 6 unit, SUB-Q, Active [facility] Human TID-Before 2016 Medical Meals, you can Center increase your insulin doses back to 12 units you were taking prior if your sugars are more than 200 repeatedly. You did not require your home doses in the hospital., 0 Refill(s) latanoprost 0.05 1 drp, RIGHT Active [place] MG/ML Ophthalmic EYE, Bedtime, 0 2015 Medical Solution Refill(s) Center acetaminophen 1,000 mg = 2 Active [place] mg oral tab, PO, Q6H, 2016 Medica l tablet not to exceed Center 4000 mg/day, 0 Refill(s) insulin detemir Notes: Same as Inactive [place] Levemir Do not 2016 Medical hold insulin Center without contacting prescriber WASTE: F/P - Black; E - Municipal Trash Bin "single patient use only" insulin detemir Notes: Same as Inactive [place] Levemir Do not [address] [facility] insulin Center without contacting prescriber WASTE: F/P - Black; E - Municipal Trash Bin "single patient use only" Enoxaparin Notes: (Same as: No Longer Bette Lovenox) Active 2015 Medical Center Kenalog 0.1% Notes: No Longer [place] topical cream (triamcinolone Active 2015 Med ical acetonide 0.1% Center 15 gm top CRM) (Same As: Kenalog) Insulin, Aspart, Notes: [place] in No Longer [facility] Human palms of hands Active 2015 Medical gently; Do not Center shake vigorously. (Same as: NovoLOG) "single patient use only" WASTE: F/P - Black; E - Municipal Trash Bin Stable for 28 days at room temperature. Expires in days from Da te insulin detemir Notes: Same as No Longer [facility] Levemir Do not Active [address] [facility] insulin Center without contacting prescriber WASTE: F/P - Black; E - Municipal Trash Bin "single patient use only" Insulin, Aspart, Notes: [place] in No Longer [facility] Human palms of hands Active 2015 Medical gently; Do not Center shake vigorously. (Same as: NovoLOG) "single patient use only" WASTE: F/P - Black; E - Municipal Trash Bin Stable for 28 days at room temperature. Expires in days from Da te Robaxin Notes: (Same No Longer [place] as:Robaxin) Active 2016 Medical Center Flomax Notes: (Same As: [place] Longer [place] Flomax) "Do Not Active 2015 Medical Crush" Clifford pantoprazole Notes: Tablet No Longer [place] should not be Active 2015 Medical chewed or Center crushed. (Same as: Protonix) Finasteride Notes: (Same as: No Longer [facility] Proscar) "Do Active 2015 Medical Not Crush" Clifford Women of childbearing age should not touch or handle broken tablets duloxetine Notes: (Same as: No Longer [place] Cymbalta) (Do Active 2015 Medical Not Crush) Clifford Aspirin 81 MG Notes: Do not No Longer [place] Enteric Coated crush or chew. Active 2015 Me dical Tablet (Same As: Clifford Ecotrin) Amylases 05429 Notes: (lipase No Longer [place] UNT / 60,000 units, Active 2016 Medical Endopeptidases protease 19,000 C enter 20811 UNT / units, amylase Lipase 6000 UNT 30,000 units Enteric Coated DRC) Same as: Capsule [Creon Creon (Creon 6) 6] Amylases 95278 Notes: (lipase No Longer [place] UNT / 60,000 units, Active 2016 Medical Endopeptidases protease 19,000 C enter 60924 UNT / units, amylase Lipase 6000 UNT 30,000 units Enteric Coated DRC) Same as: Capsule [Creon Creon (Creon 6) 6] Simvastatin Notes: (Same as: No Longer [facility] Zocor) Active 2016 [facility] Melatonin 3 MG Notes: (Same as: No Longer [place] Extended Release Melatonin) Active 2016 Medi florin Tablet Center latanoprost 0.05 Notes: Keep No Longer [facility] MG/ML Ophthalmic refrigerated. Active 2015 edical Solution (Same Center as:Xalatan) insulin detemir Notes: Same as No Longer [place] Levemir Do not Active [address] [facility] insulin Center without contacting prescriber WASTE: [...] Michael as Lyrica) 2016 Medical Center Amylases 67292 Notes: (lipase No Longer [place] UNT / 60,000 units, Active 2015 Medical Endopeptidases protease 19,000 C enter 05465 UNT / units, amylase Lipase 6000 UNT 30,000 units Enteric Coated DRC) Same as: Capsule [Creon Creon (Creon 6) 6] oxybutynin Notes: Same as: No Longer [facility] Ditropan) Active 2015 Medical Center DULoxetine 60 mg 60 mg = 1 cap, Active [facility] oral delayed PO, Daily, # 90 2016 Med ical release capsule cap, 0 Refill(s) Center omeprazole 20 mg 20 mg = 1 tab, Active [facility] oral enteric PO, Daily, # 30 2016 Med ical coated tablet tab, 3 Refill(s) C enter simvastatin 10 10 mg = 1 tab, Active [facility] mg oral tablet PO, Bedtime, # 2016 Me dical 30 tab, 0 Center Refill(s) Amylases 88618 1 cap, PO, QID, No Longer [facility] UNT / # 120 cap, 0 Active 2015 Medical Endopeptidases Refill(s) Center 64251 UNT / Lipase 6000 UNT Enteric Coated Capsule [Creon 6] calcium-vitamin 1 tab, PO, TID, Active [facility] D 250 mg-125 0 Refill(s) 2016 Medical [...] Daily, 0 2016 Medical 0.05 MG/MG Refill(s) Clifford Transdermal Patch insulin detemir 30 unit, SUB-Q, No Longer [place] Daily, 0 Active 2016 Medical Refill(s) Clifford pregabalin 150 150 mg = 1 cap, Active 10/09/ M H [place] mg oral capsule PO, TID, # 90 2016 Oh dical cap, 0 Refill(s) Clifford Insulin, Aspart, 12 unit, SUB-Q, No Longer 10/09 [place] Human TID-Before Active 2015 Medical Meals, 0 Center Refill(s) oxybutynin 5 mg 5 mg = 1 tab, No Longer [place] oral tablet PO, TID, PRN Active 2015 Medical Other-See Center Comments, # 30 tab, 0 Refill(s) Aspirin 81 MG 81 mg = 1 tab, Active [place] Enteric Coated PO, Daily, # 90 2016 edical Tablet tab, 3 Refill(s) [place] latanoprost 0.05 1 drp, Each No Longer 10/09/ H [place] MG/ML Ophthalmic Affected Eye, Active 2015 edical Solution Bedtime, # 1 Center btl, 1 Refill(s) pregabalin 100 100 mg = 1 cap, Inactive [place] MG Oral Capsule PO, TID, # 90 2016 Oh dical [Lyrica] cap, 0 Refill(s) [place] pantoprazole 40 mg, PO, Active [place] Daily, # 30 tab, 2016 Medical 0 Refill(s) [place] Tamsulosin 0.4 mg = 1 cap, [place] hydrochloride PO, Daily, 0 2016 Medic al 0.4 MG Oral Refill(s) Clifford Capsule [Flomax] metoprolol BID, 0 Refill(s) Inactive [facility] tartrate 2015 [facility] duloxetine PO, 0 Refill(s) Inactive [place] 2015 [facility] Ibuprofen 0 Refill(s) Inactive [place] 2016 [facility] Ranitidine 0 Refill(s) [place] Longer [place] Active 2016 [facility] insulin detemir SUB-Q, 0 Inactive Michael as Refill(s) 2016 [facility] Hydralazine Notes: (Same as: No Longer [facility] Apresoline) Push Active 2015 Medical over 5 minutes Center Insulin regular 60 units) No Longer [place] WASTE: F/P - Active 2016 Medical Black; E - Center Municipal Trash Bin Stable for 28 days at room temperature Expires in days from Da te Dextrose 50% 25 gm, 50 mL, No Longer [place] Syringe Route: IVP, Drug Active 2015 Medical [...] [place] Haldol) Active 2015 Medical Center sennosides, DETENTION Notes: (Same as: No Longer 10/09 [place] Senokot) Active 2015 Medical [place] Docusate Notes: (Same as: No Longer [place] Colace) (Do Not Active 2015 [facility] Crush) Center metoprolol Notes: (Same as: No Longer [place] tartrate Lopressor) Active 2015 Medical [place] Oxycodone Notes: (Same as: No Longer [place] Hydrochloride 5 Roxicodone) Active 2015 Medi florin [...] 7.4 Notes: (Same as: No Longer 09/22 [facility] 1,000 mL Isolyte S PH Active 2016 [facility] 7.4) Center Hydromorphone Notes: Same as: Inactive [facility] Dilaudid 2016 [facility] Dilaudid 1 mg, Route: Inactive [facility] IVP, ONCE, 2016 Medical Dosing Weight Center 81.818, kg, Priority: STAT, Start date: 10/09/15 10:12:00, Stop date: 10/09/15 10:12:00 Hydromorphone Notes: Same as: Inactive [facility] Dilaudid [address] [place] [address] Center Fentanyl Notes: (Same as: Inactive [facility] [place] Sublimaze) 2016 Medical Preservative Center free. Heparin 30 Route: IVP, PRN, No Longer [facility] unit/kg Bolus 2,200 unit, 2.2 Active 2015 Oh dical (Heparin Dosing mL, Drug form: C enter Weight) INJ, PRN, Heparin Protocol, Start date: 10/09/15 2:39:00 Stop date: 11/08/15 2:38:00, 30 day Heparin 60 Route: IVP, PRN, No Longer [facility] unit/kg Bolus 4,400 unit, 4.4 Active 2015 Oh dical (Heparin Dosing mL, Drug form: C enter Weight) INJ, PRN, Heparin Protocol, Start date: 10/09/15 2:39:00 Stop date: 11/08/15 2:38:00 heparin additive 500 mL, Rate: No Longer [facility] 25,000 unit [12 17.7 ml/hr, Active 2015 [...] ource type Reported morphine Assertion Drug Active [facility] Immunizations No Data Provided for This Section Results Order Name Results Value Reference Date Interpretation Comments Chelly rce Range CHEM PANEL Magnesium Lvl 1.9 1.8 - 2.4 08/18 [facility] CHEM PANEL Calcium Lvl 9.2 8.5 - 10.5 08/18 [facility] CHEM PANEL eGFR 85 08/18 Result Comment: [...] PANEL BUN 14 7 - 22 08/18 [facility] CHEM PANEL Glucose Lvl 166 70 - 99 08/18 [facility] CHEM PANEL Creatinine 0.92 0.50 - 08/18 [facility] Lvl 1.40 [facility] CHEM PANEL Sodium Lvl 140 135 - 145 08/18 2016 [facility] CHEM PANEL Potassium Lvl 4.1 3.5 - 5.1 08/18 [facility] CHEM PANEL Chloride Lvl 102 95 - 109 08/18 a [facility] CHEM PANEL CO2 29 24 - 32 08/18 2016 [facility] CHEM PANEL AGAP 13.1 10.0 - 0125 [place] 20.0 [facility] CHEM PANEL Phosphorus 3.7 2.5 - 4.5 08/18 [facility] HEMATOLOGY Platelet 158 133 - 450 08/18 [facility] HEMATOLOGY MPV 9.1 7.4 - 10.4 08/18 [facility] HEMATOLOGY RDW 17.0 11.5 - 08/18 [place] 14.5 [facility] HEMATOLOGY MCHC 32.1 32.0 - 08/18 [place] 36.0 [facility] HEMATOLOGY Hct 38.7 42.0 - 08/18 [place] 54.0 [facility] HEMATOLOGY RBC 4.60 4.70 - 08/18 [place] 6.10 [facility] HEMATOLOGY WBC 8.0 3.7 - 10.4 08/18 [facility] HEMATOLOGY Hgb 12.4 14.0 - 08/18 18.0 [facility] HEMATOLOGY MCH 27.0 27.0 - 08/18 31.0 [facility] HEMATOLOGY MCV 84.2 80.0 - 08/18 94.0 [facility] HEMATOLOGY Segs 70.2 45.0 - 08/18 [place] 75.0 [facility] HEMATOLOGY Eosinophils # 0.3 0.0 - 0.5 08/18 [facility] HEMATOLOGY Monocytes # 0.5 0.0 - 0.8 08/18 [facility] HEMATOLOGY Monocytes 6.5 2.0 - 12.0 08/18 [facility] HEMATOLOGY Basophils 0.3 0.0 - 1.0 08/18 [facility] HEMATOLOGY Segs-Bands # 5.6 1.5 - 8.1 08/18 [facility] HEMATOLOGY Eosinophils 3.4 0.0 - 4.0 08/18 [facility] HEMATOLOGY Lymphocytes # 1.6 1.0 - 5.5 08/18 [facility] HEMATOLOGY Lymphocytes 19.6 20.0 - 08/18 [place] 40.0 [facility] CHEM PANEL eGFR 74 08/17 Result Comment: [...] CHEM PANEL Creatinine 1.03 0.50 - 08/17 [facility] Lvl 1.40 [facility] CHEM PANEL Sodium Lvl 139 135 - 145 08/[address] CHEM PANEL Potassium Lvl 4.3 3.5 - 5.1 08/17 [place] [facility] CHEM PANEL Chloride Lvl 103 95 - 109 08/17 [facility] s [facility] CHEM PANEL CO2 29 24 - 32 08/[address] CHEM PANEL Calcium Lvl 8.6 8.5 - 10.5 08/17 [facility] CHEM PANEL BUN 17 7 - 22 08/[address] CHEM PANEL Glucose Lvl 226 70 - 99 08/[address] CHEM PANEL AGAP 11.3 10.0 - 08/17 [facility] . [facility] CHEM PANEL Phosphorus 4.2 2.5 - 4.5 08/[address] CHEM PANEL Globulin 3.6 2.7 - 4.2 08/[address] CHEM PANEL AGAP 10.8 10.0 - 08/17 [facility] .0 [facility] CHEM PANEL B/C Ratio 17 6 - 25 08/[address] CHEM PANEL A/G Ratio 0.8 0.7 - 1.6 08/[address] CHEM PANEL eGFR 69 08/17 [facility] Comment: The Medical eGFR is Center [...] CHEM PANEL Creatinine 1.09 0.50 - 08/17 [facility] Lvl 1.40 [facility] CHEM PANEL Sodium Lvl 138 135 - 145 08/[address] CHEM PANEL BUN 19 7 - 22 08/[address] CHEM PANEL Alk Phos 82 39 - 136 08/[address] CHEM PANEL Bili Total 0.4 0.2 - 1.3 08/[address] CHEM PANEL AST 16 0 - 37 08/[address] CHEM PANEL Total Protein 6.5 6.4 - 8.4 08/17 [facility] CHEM PANEL Calcium Lvl 8.6 8.5 - 10.5 08/17 [facility] CHEM PANEL Potassium Lvl 4.8 3.5 - 5.1 08/17 [facility] CHEM PANEL Chloride Lvl 104 95 - 109 08/17 [facility] 2016 [facility] CHEM PANEL CO2 28 24 - 32 08/[address] CHEM PANEL Albumin Lvl 2.9 3.5 - 5.0 08/17 [facility] 2016 [facility] CHEM PANEL ALT 12 0 - 65 08/[address] CHEM PANEL Glucose Lvl 220 70 - 99 08/[address] CHEM PANEL Magnesium Lvl 1.9 1.8 - 2.4 08/[address] HEMATOLOGY INR 1.18 0.85 - 08/17 [facility] 1.17 [facility] HEMATOLOGY PT 15.3 12.0 - 08/17 [place] 14.7 [facility] HEMATOLOGY PTT 66.0 22.9 - 08/17 [place] 35.8 [facility] HEMATOLOGY Platelet 141 133 - 450 08/17 [facility] HEMATOLOGY MPV 8.5 7.4 - 10.4 08/17 [facility] HEMATOLOGY RBC 4.14 4.70 - 08/17 [place] 6.10 [facility] HEMATOLOGY Hct 34.6 42.0 - 08/17 [place] 54.0 [facility] HEMATOLOGY WBC 6.9 3.7 - 10.4 08/17 [facility] HEMATOLOGY MCV 83.7 80.0 - 08/17 [place] 94.0 [facility] HEMATOLOGY RDW 17.4 11.5 - 08/17 14.5 [facility] HEMATOLOGY MCHC 33.0 32.0 - 08/17 [place] 36.0 [facility] HEMATOLOGY Hgb 11.4 14.0 - 08/17 18.0 [facility] HEMATOLOGY MCH 27.7 27.0 - 08/17 [place] 31.0 [facility] HEMATOLOGY Monocytes # 0.5 0.0 - 0.8 08/17 [facility] HEMATOLOGY Lymphocytes # 2.1 1.0 - 5.5 08/17 [facility] HEMATOLOGY Eosinophils # 0.3 0.0 - 0.5 08/17 [place] [facility] HEMATOLOGY Segs-Bands # 4.0 1.5 - 8.1 08/17 [facility] HEMATOLOGY Monocytes 6.8 2.0 - 12.0 08/17 [facility] HEMATOLOGY Basophils 0.4 0.0 - 1.0 08/17 [facility] HEMATOLOGY Eosinophils 4.3 0.0 - 4.0 08/17 [facility] HEMATOLOGY Lymphocytes 30.0 20.0 - 08/17 [place] 40.0 [facility] HEMATOLOGY Segs 58.5 45.0 - 08/17 [place] 75.0 [facility] PARATHYROID Ca Ion WB 1.11 1.05 - 08/17 [place] PROFILE . [facility] PARATHYROID Ca Norm WB 1.11 1.05 - 08/17 [place] PROFILE 08.18 [facility] CHEM PANEL Phosphorus 4.1 2.5 - 4.5 08/16 [facility] CHEM PANEL Magnesium Lvl 1.8 1.8 - 2.4 08/16 [facility] HEMATOLOGY PTT 63.3 22.9 - 08/16 35. [facility] HEMATOLOGY INR 1.17 0.85 - 08/16 . [facility] HEMATOLOGY PT 15.1 12.0 - 08/16 . [facility] URINE CHEM U Magnesium >10 08/16 Result Comment: [facility] result was 24.4 notified Roshan Looney 08/17/2016 21:27. URINE CHEM U Chloride 143 08/16 [facility] URINE CHEM U Potassium 33.9 08/16 [facility] URINE CHEM U Sodium 115 08/16 [facility] HEMATOLOGY Segs 71.2 45.0 - 08/16 75.0 [facility] HEMATOLOGY Lymphocytes 18.2 20.0 - 08/16 40.0 [facility] HEMATOLOGY Monocytes 6.8 2.0 - 12.0 08/16 [facility] HEMATOLOGY Eosinophils 3.3 0.0 - 4.0 08/16 [facility] HEMATOLOGY Basophils 0.5 0.0 - 1.0 08/16 [facility] HEMATOLOGY Segs-Bands # 6.2 1.5 - 8.1 08/16 [facility] HEMATOLOGY Monocytes # 0.6 0.0 - 0.8 08/16 [facility] HEMATOLOGY Lymphocytes # 1.6 1.0 - 5.5 08/16 [facility] HEMATOLOGY Eosinophils # 0.3 0.0 - 0.5 08/16 [facility] HEMATOLOGY PTT 65.2 22.9 - 08/16 35. [facility] HEMATOLOGY INR 1.19 0.85 - 08/16 08.10 [facility] HEMATOLOGY PT 15.4 12.0 - 08/16 14. [facility] HEMATOLOGY MPV 8.9 7.4 - 10.4 08/16 [facility] HEMATOLOGY Platelet 150 133 - 450 08/16 [facility] HEMATOLOGY RDW 17.2 11.5 - 08/16 [place] 14.5 /2016 [facility] HEMATOLOGY MCHC 32.3 32.0 - 08/16 [place] 36.0 /2016 [facility] HEMATOLOGY MCH 26.8 27.0 - 08/16 [place] 31.0 /2016 [facility] HEMATOLOGY Hct 35.9 42.0 - 08/16 [place] 54.0 /2016 [facility] HEMATOLOGY Hgb 11.6 14.0 - 08/16 [place] 18.0 [facility] HEMATOLOGY MCV 83.0 80.0 - 08/16 [place] 94.0 /2016 [facility] HEMATOLOGY RBC 4.32 4.70 - 08/16 [place] 6.10 /2016 [facility] HEMATOLOGY WBC 8.7 3.7 - 10.4 08/16 /2016 [facility] CARDIAC Troponin-I 0.13 0.00 - 08/16 [place] ENZYMES 0.40 [facility] CARDIAC Total CK 39 12 - 191 08/16 [facility] ENZYMES /2016 [facility] CARDIAC Troponin-T 0.026 0.000 - 08/16 [place] ENZYMES 0.100 [facility] CHEM PANEL Lactic Acid 1.5 0.5 - 2.2 08/16 [place] [facility] MYOGLOBIN Myoglobin 54 25 - 72 08/16 [facility] CHEM PANEL Lactic Acid 2.2 0.5 - 2.2 08/16 [place] [facility] BACTERIAL - MRSA by PCR Positive 1 08/16 [place] SEROLOG[place] *ABN* /2016 Comment: Medical (08/16/16 1:06 AM) "Significant C enter Findings called to Kya Krishna on 08/16/2016 at 13:44 by MARIO.Read Back OK." BLOOD BANK Antibody Scrn Negative 08/16 [place] as RESULTS (08/16/16 1:06 AM) [facility] BLOOD BANK ABO/Rh A NEG 08/16 [place] RESULTS /2016 [facility] CARDIAC Troponin-I 0.05 0.00 - 08/16 [place] ENZYMES 0.40 [facility] CARDIAC Total CK 40 12 - 191 08/16 [place] ENZYMES /2016 [facility] CARDIAC Troponin-T <0.010 0.000 - 08/16 [facility] ENZYMES 0.100 [facility] CHEM PANEL A/G Ratio 1.0 0.7 - 1.6 08/16 [facility] CHEM PANEL Globulin 3.2 2.7 - 4.2 08/16 [facility] CHEM PANEL B/C Ratio 115 6 - 25 08/16 [facility]2016 [facility] CHEM PANEL Total Protein 6.4 6.4 - 8.4 08/16 [place] [facility] CHEM PANEL AST 6 0 - 37 08/16 [facility]2016 [facility] CHEM PANEL Bili Total 0.4 0.2 - 1.3 08/16 [facility] CHEM PANEL Albumin Lvl 3.2 3.5 - 5.0 08/16 [place] [facility] CHEM PANEL Alk Phos 79 39 - 136 08/16 [facility] CHEM PANEL ALT 20 0 - 65 08/16 [facility] LIPIDS Chol 69 <=199 08/16 [facility] mg/dL [facility] LIPIDS Trig 50 <=149 08/16 [facility] mg/dL [facility] LIPIDS HDL 33 >=61 mg/dL 08/16 [facility] LIPIDS LDL 26 <=99 mg/dL 08/16 [facility] (Calculated) [facility] LIPIDS CHD Risk 2.09 4.00 - 08/16 [place] 7.30 [facility] LIPIDS VLDL 10 08/16 [facility] MYOGLOBIN Myoglobin 37 25 - 72 08/16 [facility] PARATHYROID Ca Ion WB 1.33 1.05 - 08/16 [place] PROFILE 1. [facility] PARATHYROID Ca Norm WB 1.25 1.05 - 08/16 [place] PROFILE 1. [facility] SPECIAL Hgb A1C 6.5 <=5.6 % 08/16 [facility] CHEMISTRY [facility] URINE AND UA <=1.0 0.1 - 1.0 08/16 [facility] STOOL Urobilinogen mg/dL [facility] URINE AND UA Turbidity Clear Clear 08/16 [facility] STOOL (08/16/16 1:06 AM) /2016 [facility] URINE AND UA Spec Grav 1.016 <=1.030 08/16 [facility] STOOL [facility] URINE AND UA Protein Negative Negative 08/16 [facility] STOOL mg/dL mg/dL [facility] URINE AND UA pH 5.5 5.0 - 8.0 08/16 [facility] URINE AND UA Color Yellow Yellow 08/16 [facility] STOOL *NA* /2016 [facility] (08/16/16 1:06 AM) [place] URINE AND UA CaOx Kelli Occasional None Seen 08/16 [place] STOOL /HPF /HPF [facility] URINE AND UA WBC 2 0 - 5 08/16 [facility] URINE AND UA Mucus Few /LPF None Seen 08/16 [facility] STOOL /LPF /2016 [facility] URINE AND UA Leuk Est Negative Negative 08/16 [facility] (08/16/16 1:06 AM) /2016 [facility] URINE AND UA RBC 1 0 - 2 08/16 [facility] URINE AND UA Blood Negative Negative 08/16 [facility] (08/16/16 1:06 AM) [facility] URINE AND UA Glucose 50 mg/dL Negative 08/16 [facility] mg/dL /2016 [facility] URINE AND UA Bili Negative Negative 08/16 [facility] *NA* /2016 [facility] (08/16/16 1:06 AM) [place] URINE AND UA Ketones Negative Negative 08/16 [facility] mg/dL mg/dL [facility] URINE AND UA Nitrite Negative Negative 08/16 [facility] (08/16/16 1:06 AM) /2016 [facility] URINE AND UA Sq Epi None Seen 08/16 [facility] URINE AND UA Hyal Cast 4 0 - 2 08/16 [facility] HEMATOLOGY PT 14.3 12.0 - 10/11 [place] 14. [facility] HEMATOLOGY INR 1.08 0.85 - 10/11 [place] . [facility] HEMATOLOGY PTT 66.6 22.9 - 10/11 [place] 35.8 [facility] HEMATOLOGY INR 1.07 0.85 - 10/11 [place] 1. [facility] HEMATOLOGY PT 14.2 12.0 - 10/11 [place] 14. [facility] HEMATOLOGY PTT 73.4 22.9 - 10/11 [place] 35.8 [facility] HEMATOLOGY PTT 49.7 22.9 - 10/11 [place] 35. [facility] CHEM PANEL eGFR 79 10/10 Result Comment: [...] Glucose Lvl 167 70 - 99 10/10 [facility] CHEM PANEL Calcium Lvl 8.3 8.5 - 10.5 10/10 [facility] CHEM PANEL CO2 24 24 - 32 10/10 [facility] CHEM PANEL BUN 12 7 - 22 10/10 [facility] CHEM PANEL Creatinine 0.98 0.50 - 10/10 [facility] Lvl 1.40 [facility] CHEM PANEL Chloride Lvl 103 95 - 109 10/10 [facility] CHEM PANEL Sodium Lvl 138 135 - 145 10/10 [facility] CHEM PANEL Potassium Lvl 4.2 3.5 - 5.1 10/10 [place] [facility] CHEM PANEL AGAP 15.2 10.0 - 10/10 [place] 20.0 [facility] HEMATOLOGY Hgb 9.9 14.0 - 10/10 [place] 18.0 [facility] HEMATOLOGY RBC 3.40 4.70 - 10/10 [place] 6.10 [facility] HEMATOLOGY WBC 5.0 3.7 - 10.4 10/10 [facility] HEMATOLOGY MPV 7.9 7.4 - 10.4 10/10 [facility] HEMATOLOGY Platelet 218 133 - 450 10/10 [facility] HEMATOLOGY MCHC 33.3 32.0 - 10/10 [place] 36.0 [facility] HEMATOLOGY MCH 29.0 27.0 - 10/10 [place] 31.0 [facility] HEMATOLOGY MCV 87.0 80.0 - 10/10 94.0 [facility] HEMATOLOGY Hct 29.6 42.0 - 10/10 54.0 [facility] Center HEMATOLOGY RDW 14.8 11.5 - 10/10 14.5 [facility] HEMATOLOGY Eosinophils # 0.1 0.0 - 0.5 10/10 [facility] HEMATOLOGY Eosinophils 1.4 0.0 - 4.0 10/10 [facility] HEMATOLOGY Monocytes 7.6 2.0 - 12.0 10/10 [facility] HEMATOLOGY Segs 73.6 45.0 - 10/10 [place] 75.0 [facility] HEMATOLOGY Lymphocytes 16.7 20.0 - 10/10 [place] 40.0 [facility] HEMATOLOGY Segs-Bands # 4.0 1.5 - 8.1 10/10 [facility] HEMATOLOGY Monocytes # 0.4 0.0 - 0.8 10/10 [facility] HEMATOLOGY Basophils 0.7 0.0 - 1.0 10/10 [facility] HEMATOLOGY Lymphocytes # 0.9 1.0 - 5.5 10/10 [facility] HEMATOLOGY RDW 14.6 11.5 - 10/10 14. [facility] HEMATOLOGY Platelet 206 133 - 450 10/10 [facility] HEMATOLOGY MPV 8.3 7.4 - 10.4 10/10 [facility] HEMATOLOGY MCV 87.2 80.0 - 10/10 94.0 [facility] HEMATOLOGY MCHC 33.4 32.0 - 10/10 [place] 36.0 [facility] HEMATOLOGY MCH 29.1 27.0 - 10/10 31.0 [facility] HEMATOLOGY Hct 29.6 42.0 - 10/10 54.0 2016 [facility] HEMATOLOGY Hgb 9.9 14.0 - 10/10 [place] 18.0 [facility] HEMATOLOGY WBC 5.4 3.7 - 10.4 10/10 [facility] HEMATOLOGY RBC 3.39 4.70 - 10/10 [place] 6.10 [facility] CHEM PANEL Phosphorus 3.3 2.5 - 4.5 10/09 [facility] CHEM PANEL Magnesium Lvl 1.8 1.8 - 2.4 10/09 [facility] ELECTROLYTE AGAP 12.7 10.0 - 10/09 [facility] S 20.0 [facility] ELECTROLYTE Calcium Lvl 8.2 8.5 - 10.5 10/09 [facility] ELECTROLYTE Sodium Lvl 140 135 - 145 10/09 [facility] s [facility] ELECTROLYTE CO2 27 24 - 32 10/09 [facility] ELECTROLYTE Potassium Lvl 4.7 3.5 - 5.1 10/09 [place] [facility] ELECTROLYTE Chloride Lvl 105 95 - 109 10/09 [facility] ELECTROLYTE eGFR 83 10/09 [facility] Comment: The Medical eGFR is Center calculated [...] BMI. ELECTROLYTE Creatinine 0.94 0.50 - 10/09 [facility] S Lvl 1.40 /2015 [facility] ELECTROLYTE BUN 12 7 - 22 10/09 [facility] ELECTROLYTE Glucose Lvl 178 70 - 99 10/09 [facility] HEMATOLOGY Basophils # 0.1 0.0 - 0.2 10/09 [facility] HEMATOLOGY Monocytes # 0.2 0.0 - 0.8 10/09 [facility] HEMATOLOGY Lymphocytes 19.0 20.0 - 03 [facility] 40.0 [facility] HEMATOLOGY Monocytes 5.6 2.0 - 12.0 10/09 [facility] HEMATOLOGY Segs 72.1 45.0 - 10/09 [place] 75.0 [facility] HEMATOLOGY Eosinophils # 0.1 0.0 - 0.5 10/09 [facility] HEMATOLOGY Basophils 1.7 0.0 - 1.0 10/09 [facility] HEMATOLOGY Eosinophils 1.6 0.0 - 4.0 10/09 [place] [facility] HEMATOLOGY Lymphocytes # 0.8 1.0 - 5.5 10/09 [facility] HEMATOLOGY Segs-Bands # 3.0 1.5 - 8.1 10/09 [facility] HEMATOLOGY MCV 87.7 80.0 - 10/09 [place] 94.0 [facility] HEMATOLOGY MCH 29.2 27.0 - 10/09 [place] 31.0 [facility] HEMATOLOGY RDW 15.1 11.5 - 10/09 [place] 14.5 [facility] HEMATOLOGY Platelet 188 133 - 450 10/09 [facility] HEMATOLOGY MCHC 33.3 32.0 - 10/09 [place] 36.0 [facility] HEMATOLOGY WBC 4.2 3.7 - 10.4 10/09 [facility] HEMATOLOGY RBC 3.35 4.70 - 10/09 [place] 6.10 [facility] HEMATOLOGY Hgb 9.8 14.0 - 10/09 [place] 18.0 [facility] HEMATOLOGY Hct 29.4 42.0 - 10/09 [place] 54.0 [facility] HEMATOLOGY MPV 8.3 7.4 - 10.4 10/09 [facility] CHEM PANEL eGFR 68 10/08 [facility] Comment: The Medical eGFR is Center [...] PANEL BUN 12 7 - 22 10/08 [facility] CHEM PANEL Sodium Lvl 140 135 - 145 10/08 [facility] CHEM PANEL Creatinine 1.11 0.50 - 10/08 [place] Lvl 1.40 [facility] CHEM PANEL Calcium Lvl 8.2 8.5 - 10.5 10/08 [facility] CHEM PANEL CO2 26 24 - 32 10/08 [facility] CHEM PANEL Chloride Lvl 104 95 - 109 10/08 [facility] CHEM PANEL Potassium Lvl 4.6 3.5 - 5.1 10/08 [facility] CHEM PANEL Glucose Lvl 224 70 - 99 10/08 [facility] CHEM PANEL AGAP 14.6 10.0 - 10/08 [place] 20.0 [facility] HEMATOLOGY Eosinophils # 0.3 0.0 - 0.5 10/08 [facility] HEMATOLOGY Segs-Bands # 2.9 1.5 - 8.1 10/08 [facility] HEMATOLOGY Lymphocytes # 1.4 1.0 - 5.5 10/08 [facility] HEMATOLOGY Eosinophils 5.5 0.0 - 4.0 10/08 [facility] HEMATOLOGY Lymphocytes 27.4 20.0 - 10/08 [place] 40.0 [facility] HEMATOLOGY Monocytes 8.3 2.0 - 12.0 10/08 [facility] HEMATOLOGY Segs 57.9 45.0 - 10/08 [place] 75.0 [facility] HEMATOLOGY Basophils 0.9 0.0 - 1.0 10/08 [facility] HEMATOLOGY Monocytes # 0.4 0.0 - 0.8 10/08 [facility] HEMATOLOGY INR 1.11 0.85 - 10/08 [place] 1.17 [facility] HEMATOLOGY PT 14.6 12.0 - 10/08 [place] 14.7 [facility] HEMATOLOGY [place] 2.9 10/08 [facility] HEMATOLOGY ACT (TEG) 409 86 - 118 10/08 [facility] HEMATOLOGY R-time 3.8 0.4 - 0.7 10/08 [facility] HEMATOLOGY Rapid TEG Citrated Whole Blood 10/08 [facility] Sample Type (10/09/15 5:21 PM) /2015 [facility] HEMATOLOGY Estimated % 0.4 0.0 - 7.5 10/08 [place] [facility] HEMATOLOGY G-value 10.6 5.0 - 11.6 10/08 [facility] HEMATOLOGY K-time 2.1 0.6 - 2.3 10/08 [facility] HEMATOLOGY Max Amp 68 52 - 71 10/08 [facility] HEMATOLOGY Angle 63 64 - 80 10/08 [facility] IMMUNOLOGY [place]-Hep C Negative Negative 10/08 [facility] as Ab *NA* /2015 [facility] (10/09/15 9:26 AM) [place] CHEM PANEL Lactic Acid 1.4 0.5 - 2.2 10/08 [place] [facility] HEMATOLOGY Estimated % 0.0 0.0 - 7.5 10/08 [facility] s L[place] [facility] HEMATOLOGY G-value 9.0 5.0 - 11.6 10/08 [facility] HEMATOLOGY K-time 1.6 0.6 - 2.3 10/08 [facility] HEMATOLOGY R-time 1.2 0.4 - 0.7 10/08 [facility] HEMATOLOGY [place] 0.8 10/08 [facility] HEMATOLOGY Max Amp 64 52 - 71 10/08 [facility] HEMATOLOGY Angle 68 64 - 80 10/08 [facility] HEMATOLOGY ACT (TEG) 167 86 - 118 10/08 Result Comment: Medical RECHECKED. [place] HEMATOLOGY Rapid TEG Citrated Whole Blood 10/08 [facility] Sample Type (10/09/15 2:08 AM) /2015 [facility] Pathology Reports No Data Provided for This Section Diagnostic Reports Report Value Date Source Chest 1view DX EXAM: XR CHEST 1 VIEW 08/17/2016 [facility] edical DATE: 08/17/2016 6:46 PM ARTIST MODEL Cent er INDICATION: Abnormal chest sounds. Findings: [...] DX EXAM: XR CHEST 1 VIEW 08/17/2016 [facility] edical DATE: 08/17/2016 3:00 AM ARTIST MODEL Cent er INDICATION: Abnormal chest sounds COMPARISON: [...] for EXAM: XR ABDOMEN 1 VIEW 08/16/2016 [facility] Placement DX DATE: 08/16/2016 2:18 AM ARTIST MODEL Cent er INDICATION: Tube Placement OG ADDITIONAL [...] below GE junction. Chest 1view DX 08/16/2016 [facility] EXAM: XR CHEST 1 VIEW Center DATE: 08/16/2016 12:55 AM ARTIST MODEL INDICATION: Abnormal chest sounds COMPARISON: None. TECHNIQUE: [...] LEFT UPPER EXTREMITY VENOUS DOPP LER 10/11/2015 [facility] [employer] Doppler Unil US DATE: 10/11/2015 7:12 AM [...] EXAM: US LEFT UPPER EXTREMITY VENOUS DOPPLER [facility] Doppler [facility] US DATE: 10/10/2015 at 1642 hours. Center [...] EXAM: XR LEFT ELBOW 3 VIEWS 10/09/2015 [facility] DATE: 10/09/2015 at 1917 hours Ce nter [...] EXAM: XR LEFT FOREARM 2 VIEWS 10/09/2015 [facility] DATE: 10/09/2015 at 1919 hours Ce nter INDICATION: Pain and swelling COMPARISON: Left elbow radiographs 10/09/2015 at 1917 hours TECHNIQUE: AP and lateral radiographs of the [facility] forearm FINDINGS: No acute fract ure or malalignment is identified. Generalized subcutaneous edema is present without subcutaneous emphysema or radiopaque foreign body. IMPRESSION: Subcutaneous edema without acute [place] abnormality identified. Humerus 2 views DX EXAM: XR LEFT HUMERUS 2 VIEWS 10/09/2015 [facility] DATE: 10/09/2015 at 1720 hours Ce nter INDICATION: Fracture COMPARISON: 10/08/[address] TECHNIQUE: AP and lateral radiographs of the [facility] humerus FINDINGS: The comminuted lef t humeral [...] left upper extremi ty following fracture. 10/09/2015 [facility] Upper or Lower single FINDINGS: Center l [...] measure 145 and 140 mmHg, respectively. The [facility] brachial index is 0.95. Segmental pressure [...] Date Comments Source Respitory Rate 20 08/18/2016 [facility] Center Systolic (mm Hg) 107 08/18/[address] [facility] dical Center Diastolic (mm Hg) 65 08/18[facility]2016 [facility] Systolic (mm Hg) 93 08/18/[address] [facility] dical Center Diastolic (mm Hg) 55 08/18/2016 [facility] Center Respitory Rate 19 08/18/2016 [facility] Center Systolic (mm Hg) 109 08/18/[address] [facility] dical Center Diastolic (mm Hg) 55 08/18/2016 [facility] Center Respitory Rate 18 08/18/2016 [facility] Temperature Oral (F) 98.3 F 08/18/2016 [facility] Temperature Oral (F) 97.9 F 08/18/2016 [facility] Temperature Oral (F) 96.9 F 08/18/2016 [facility] Height 172.72 cm 08/16/2016 [facility] Height 172.72 cm 08/16/2016 [facility] Height 172.72 cm 08/16/2016 [facility] Weight 82 08/16/2016 [facility] BMI Calculated 27.49 08/16/2016 [facility] Heart Rate 65 10/14/2015 [facility] [facility]2015 [facility] Temperature Oral (F) 97.8 F 10/14/2015 [facility] Systolic (mm Hg) 112 10/14/[address] [facility] Diastolic (mm Hg) 73 10/14/2015 [facility] Respitory Rate 18 10/14/2015 [facility] Center Systolic (mm Hg) 110 10/14/[address] [facility] Diastolic (mm Hg) 69 [facility]14[facility] Oral (F) 97.8 F 10/14/2015 [facility] Heart Rate 59 10/14/2015 [facility] Resp[facility] Rate 18 10/14/2015 [facility] Systolic (mm Hg) 117 10/14/[address] [facility] Diastolic (mm Hg) 62 10/14/2015 [facility] Temperature Oral (F) 97.7 F 10/14/2015 [facility] Heart Rate 58 10/14/2015 [facility] BMI Calculated 28.43 10/09/2015 [facility] Weight 84.8 10/09/2015 [facility] Height 172.72 cm 10/09/2015 [facility] Weight 81.818 10/09/2015 [facility] Height 172.72 cm 10/09/2015 [facility] BMI Calculated 27.43 10/09/2015 [facility] Encounters Location Location Encounter Encounter Reason Attending ADM DC Stat us Source Details Type Number For Provider Date Date [facility] [id number] Pin Mccann 10/07 10/13 [facility] /2015 [facility] [id number] [place] 08/16 08/18 [facility] /2016 [facility] Procedures Procedure Code Date Perfomer Comments Source Pancreas [id number] [facility] of [facility] excision<sup>1</ pancreas was Medica l sup> removed [...] in clinic in 2 week s. Call [phone] to schedule appointment. [4] 2.Acute encephalopathy 2/2 [...] BPH (benign prostatic hypertrophy) home meds Orders: [facility] Order -Detailed Prophylaxis enox Disposition home w/ family - tomorrow FULL CODE [facility] IM hospitalist team is primary. Please page [phone] with any questions. [5] Extracted from:Title: [...] [facility] Trauma Attending Present at Arrival: Dr Arajuo History of Present Illness: Patient is a [...] seen and evaluated the patient/fi lms with [place] and agree with the assessment and plan. [...] History Date Source Social History TypeResponse 08/17/2016 [facility] Substance Abuse Use: None. Sexual Sexually [...]
--- OUTSIDE RECORDS SUMMARY | 2020-08-21 09:27 | XMS REPORT | Continuity of Care Document ---
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 [facility] DYSRHYTHMI Diagnosis Active 2016-08-24 Memoria 08-16 21:58:00 l 00:00: [place] DYSRHYTHMI 00 Active 7 [facility] GIOVANNA Diagnosis Active 2016-08-16 Memoria BILLING 08-16 00:40:00 l 00:00: [place] GIOVANNA 00 BILLING Active 08/16/2016 [facility] LEFT Diagnosis Active 2015-10-09 Mem oria SUBAXILLAR 3-16 03:39:00 l Y ARTERY LEFT 00:00: [place] AND SUBAXILLAR 00 BRACHIAL Y ARTERY ART AND BRACHIAL ART Active 10/08/2015 [facility] ARM FX Diagnosis Active 2015-10-21 Mem oria W/ARTERIAL 3-16 22:01:00 l BLOOD IN ARM FX 00:00: Leoncio n SUBCLAVIAN W/ARTERIAL 00 /BR BLOOD IN SUBCLAVIAN /BR Active 10/08/2015 [facility] Cerebrovas Problem Resolve 2016-08-21 Memoria cular d 03:50:59 l accident [place] (disorder) Cerebrovas cular accident (disorder) Resolved Problem 08/21/2016 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 [facility] Atrial Problem Active 2016-08-21 Memor ia fibrillati 03:50:59 l on Atrial Joe (disorder) fibrillati on (disorder) Active Problem 08/21/2016 [facility] Diabetes Problem Active 2016-08-21 Mem oria mellitus 03:50:59 l (disorder) Diabetes He rmann mellitus (disorder) Active Problem 08/21/2016 On insulin [facility] DYSTHYMIC Diagnosis Active 2016-08-24 Memoria DISORDER 21:58:00 l [place] DYSTHYMIC DISORDER Active [facility] UNSP Diagnosis Active 2015-10-21 Mem oria PHYSEAL 22:01:00 l FRACTURE UNSP [place] OF LOWER PHYSEAL END OF UL FRACTURE OF LOWER END OF UL Active [facility] Allergies, Adverse Reactions, Alerts Allergy Allergy Status [...] Drug form: OINT, Start date: 08/18/16 15:07:00 [employer], Duration: 30 day, Stop date: 09/17/16 9:00:00 [employer] Neosporin 2017-0 No 1 appl, Memor ia -25 Route: l 21:07: TOP, Joe 00 Daily, Drug form: OINT, Start date: 08/18/16 15:07:00 [employer], Duration: 30 day, Stop date: 09/17/16 9:00:00 [employer] apixaban 5 2017-0 Yes 5 mg = [...] tab, PO, l Tablet 18:09: Daily, # [place] 57 30 tab, 0 Refill(s) Furosemide Yes 20 mg = 1 Me moria 20 MG Oral 1-25 tab, PO, l Tablet 18:09: Daily, # [place] 57 30 tab, 0 Refill(s) finasteride Yes 5 mg = 1 Me moria 5 mg oral 1-25 tab, PO, l tablet 18:09: Daily, # [place] 51 30 tab, 0 Refill(s) finasteride Yes 5 mg = 1 Me moria 5 mg oral 1-25 tab, PO, l tablet 18:09: Daily, # [place] 51 30 tab, 0 Refill(s) DULoxetine Yes 60 mg = 1 Me moria 60 mg oral 1-25 cap, PO, l delayed 18:09: Daily, # Leoncio n release 45 30 cap, 0 capsule Refill(s) DULoxetine Yes 60 mg = 1 Me moria 60 mg oral 1-25 cap, PO, l delayed 18:09: Daily, # Leoncio n release 45 30 cap, 0 capsule Refill(s) DULoxetine No [...] tab, PO, l tablet 18:07: Daily, # [place] 50 30 tab, 0 Refill(s) Furosemide No [...] PO, l oral tablet 18:07: Bedtime, # [place] 21 30 tab, 0 Refill(s) metoprolol Yes [...] PO, l oral tablet 18:05: Bedtime, # [place] 20 30 tab, 0 Refill(s) atorvastati No 40 mg = 1 M emoria n 40 mg 1-25 tab, PO, l oral tablet 18:05: Bedtime, # oJe 20 30 tab, 0 Refill(s) apixaban 5 2017 No 5 mg = 1 Mem oria [...] # Joe 48 30 tab, 0 Refill(s) Furosemide No 20 mg = 1 Me moria 20 MG Oral 1-25 tab, PO, l Tablet 18:04: Daily, # [place] 48 30 tab, 0 Refill(s) finasteride No 5 mg = 1 Me moria 5 mg oral 1-25 tab, PO, l tablet 18:04: Daily, # [place] 43 30 tab, 0 Refill(s) finasteride No 5 mg = 1 Me moria 5 mg oral 1-25 tab, PO, l tablet 18:04: Daily, # [place] 43 30 tab, 0 Refill(s) DULoxetine No [...] tab, PO, l Tablet 17:48: Daily, # Je[place] 00 30 tab, 0 Refill(s) finasteride No 5 mg = 1 Me moria 5 mg oral 1-25 tab, PO, l tablet 17:48: Daily, # [place] 00 30 tab, 0 Refill(s) DULoxetine No [...] tab, PO, l tablet 17:48: Daily, # [place] 00 30 tab, 0 Refill(s) DULoxetine No [...] PO, l oral tablet 17:48: Bedtime, # [place] 00 30 tab, 0 Refill(s) hydrOXYzine No 25 mg = 1 M emoria pamoate 1-25 cap, PO, l 17:45: Q6H, PRN [place] 00 nausea, # 20 cap, 0 Refill(s) hydrOXYzine No 25 mg = 1 M emoria pamoate 1-25 cap, PO, l 17:45: Q6H, PRN [place] 00 nausea, # 20 cap, 0 Refill(s) Furosemide No 20 mg = 1 Me moria 20 MG Oral 1-25 tab, PO, l Tablet 17:40: Daily, # [place] 00 30 tab, 0 Refill(s) finasteride No [...] M emoria 1-25 0 l 17:40: Refill(s) [place] 00 metoprolol No 25 mg = 1 Me moria tartrate 25 1-25 tab, PO, l mg oral 17:40: BID, # 180 Herm annamaria tablet 00 tab, 0 Refill(s) apixaban 5 No 5 mg = 1 Mem oria MG Oral 1-25 tab, PO, l Tablet 17:40: BID, 0 [place] [Eliquis] 00 Refill(s) Metformin No 500 mg [...] tab, PO, l Tablet 17:40: Daily, # [place] 00 30 tab, 0 Refill(s) finasteride No 5 mg = 1 Me moria 5 mg oral 1-25 tab, PO, l tablet 17:40: Daily, # [place] 00 30 tab, 0 Refill(s) omeprazole No [...] M emoria 1-25 0 l 17:40: Refill(s) [place] 00 metoprolol No 25 mg = 1 [...] tab, PO, l tablet 17:40: TID, PRN [place] 00 Other-See Comments, # 30 tab, 0 Refill(s) Sodium No 250 mL, Memoria Chloride 1-25 250 ml/hr, l 0.154 14:56: Infuse [place] MEQ/ML 00 Over: 1 Injectable hr, Route: Solution IV, 250, Drug form: INJ, ONCE, Priority: STAT, Dosing Weight 82 kg, Start date: 08/18/16 8:56:00 [employer], Duration: 1 doses or times, Stop date: 08/18/16 8:56:00 [employer] Sodium 2017- No 250 mL, Memoria Chloride 1-25 250 ml/hr, l 0.154 14:56: Infuse [place] MEQ/ML 00 Over: 1 Injectable hr, Route: Solution IV, 250, Drug form: INJ, ONCE, Priority: STAT, Dosing Weight 82 kg, Start date: 08/18/16 8:56:00 [employer], Duration: 1 doses or times, Stop date: 08/18/16 8:56:00 [employer] Tylenol No Notes: Do Memor ia 1-25 not exceed l 14:52: 4 gm/day. Joe (Same as: Tylenol) Tylenol No Notes: Do Memor ia 1-25 not exceed l 14:52: 4 gm/day. [place] 00 (Same as: Tylenol) Magnesium No Notes: Memori a Oxide 1-25 (Same as: l 14:49: Mag-Ox [place] 00 400) Magnesium oxide 451wy=704o g elemental magnesium Dose=____m g magnesium oxide (___mg elemental magnesium) Magnesium No Notes: Memori a Oxide 1-25 (Same as: l 14:49: Mag-Ox [place] 00 400) Magnesium oxide 529pt=402x g elemental magnesium Dose=____m g magnesium oxide (___mg elemental magnesium) Metoprolol No Notes: Memor ia 1-25 (Same as: l 10:35: Lopressor) [place] 00 Push over 2 minutes Metoprolol No Notes: Memor ia 1-25 (Same as: l 10:35: Lopressor) Joe 00 Push over 2 minutes Robitussin No 30 mg, Memor ia CoughGels 1-25 Route: PO, l 06:00: Q6H, Joe 00 Dosing Weight 82, kg, Start date: 08/18/16 0:00:00 [employer], Duration: 30 day, Stop date: 09/16/16 18:00:00 [employer] Robitussin No 30 mg, Memor ia CoughGels 1-25 Route: PO, l 06:00: Q6H, Dosing Weight 82, kg, Start date: 08/18/16 0:00:00 [employer], Duration: 30 day, Stop date: 09/16/16 18:00:00 [employer] Eliquis No Notes: Memoria 1-25 Same as: [...] 1-25 (Same as: :46: Duoneb) Ipratropium 00 [place] 0.167 MG/ML Inhalant Solution [DuoNeb] Albuterol No Notes: Memori a 0.833 MG/ML 1-25 (Same as: :46: Duoneb) Ipratropium 00 [place] 0.167 MG/ML Inhalant Solution [DuoNeb] metoprolol No Notes: Memor ia tartrate 1-24 (Same as: l 22:00: Lopressor) 12.5mg=1/ 4 X 50 mg tab. metoprolol No Notes: Memor ia tartrate 1-24 (Same as: l 22:00: Lopressor) [place] 00 12.5mg=1/ 4 X 50 mg tab. Metoprolol No Notes: Memor ia 1-24 (Same as: l 15:58: Lopressor) Push over 2 minutes Metoprolol No Notes: Memor ia 1-24 (Same as: l 15:58: Lopressor) Push over 2 minutes Acetaminoph No Notes: Max Memoria en 1-24 acetaminop l 14:55: hen = [place] 00 4000mg/day (4 gm/day). (Same as: Tylenol) Acetaminoph No Notes: Max Memoria en -24 acetaminop l 14:55: hen = [place] 00 4000mg/day (4 gm/day). (Same as: Tylenol) Magnesium No Notes: Memori a Oxide 24 (Same as: l 11:32: Mag-Ox [place] 00 400) Magnesium oxide 580ji=687b g elemental magnesium Dose=____m g magnesium oxide (___mg elemental magnesium) Magnesium No Notes: Memori a Oxide -24 (Same as: l 11:32: Mag-Ox [place] 00 400) Magnesium oxide 364vn=920r g elemental magnesium Dose=____m g magnesium oxide (___mg elemental magnesium) Tramadol No Notes: Not Mem oria 24 to exceed l 10:22: 400mg/day. [place] 00 (Same As: Ultram) Tramadol No Notes: Not Mem oria 24 to exceed l 10:22: 400mg/day. [place] 00 (Same As: Ultram) atorvastati No Notes: Kashif bello n 1-24 (Same as: l 03:00: Lipitor) [place] atorvastati No Notes: Kashif bello n 1-24 [...] Weight 82, kg, Start date: 08/16/16 9:00:00 [employer], Duration: 30 day, Stop date: 09/14/16 9:00:00 [employer] Docusate No Notes: Memoria Sodium 50 1-23 (Same as l MG / 15:00: Senokot-S) Joe sennosides, 00 Equiv. to CARE HOME 8.6 MG Nicolasa-Colac Oral Tablet e. insulin No Notes: Memoria detemir -23 Same as l 15:00: Levemir Do [place] 00 not hold insulin without contacting prescriber WASTE: F/P - Black; E - Municipal Trash Bin "single patient use only" Protonix No Notes: Memoria 1-23 Tablet l 15:00: should not [place] 00 be chewed or crushed. (Same as: Protonix) Insulin No 5 unit, Memoria Glargine 08-16 Route: l 100 UNT/ML 15:00: SUB-Q, Mariah nn Injectable 00 Daily, Solution Dosing Weight 82, kg, Start date: 08/16/16 9:00:00 [employer], Duration: 30 day, Stop date: 09/14/16 9:00:00 [employer] Docusate No Notes: Memoria Sodium 50 1-23 (Same as l MG / 15:00: Senokot-S) [place] sennosides, 00 Equiv. to CARE HOME 8.6 MG Nicolasa-Colac Oral Tablet e. Insulin, No Notes: Memoria Aspart, - Roll in l Human 10:31: palms of [place] hands gently; Do not shake vigorously . (Same as: NovoLOG) "single patient use only" WASTE: F/P - Black; E - Municipal Trash Bin Stable for 28 days at room temperatur e. Expires in days from ____Date Glucagon No 1 mg, Memoria - Route: IM, l 10:31: Drug form: [place] 00 PDR/INJ, PRN, Dosing Weight 82, kg, PRN Blood Glucose Results, Start date: 08/16/16 4:31:00 [employer], Duration: 30 day, Stop date: 09/15/16 4:30:00 [employer] Dextrose No 12.5 gm, Memor ia 50% Syringe 1-23 25 mL, l 10:31: Route: [place] 00 IVP, Drug Form: INJ, Dosing Weight 82, kg, PRN, PRN Blood Glucose Results, Start date: 08/16/16 4:31:00 [employer], Duration: 30 day, Stop date: 09/15/16 4:30:00 [employer] heparin 2016-0 No 500 mL, Memoria additive 1- Rate: l 25,000 unit 10:31: 20.68 Mariah nn [14 00 ml/hr, unit/kg/hr] Infuse + Premix over: 24.2 Diluent hr, Route: Dextrose 5% IV, Dosing 500 mL Weight 73.84 kg, Total Volume: 500 mL, Start date: 08/16/16 4:31:00 [employer], Duration: 30 day, Stop date: 09/15/16 4:30:00 [employer] Insulin, 2016-0 No Notes: Memoria Aspart, - Roll in l Human 10:31: palms of hands gently; Do not shake vigorously . (Same as: NovoLOG) "single patient use only" WASTE: F/P - Black; E - Quoteroller Trash Bin Stable for 28 days at room temperatur e. Expires in days from ____Date Glucagon 2016-0 No 1 mg, Memoria 1- Route: IM, l 10:31: Drug form: [place] PDR/INJ, PRN, Dosing Weight 82, kg, PRN Blood Glucose Results, Start date: 08/16/16 4:31:00 [employer], Duration: 30 day, Stop date: 09/15/16 4:30:00 [employer] Dextrose 2016-0 No 12.5 gm, Memor ia 50% Syringe 08-16 25 mL, l 10:31: Route: [place] IVP, Drug Form: INJ, Dosing Weight 82, kg, PRN, PRN Blood Glucose Results, Start date: 08/16/16 4:31:00 [employer], Duration: 30 day, Stop date: 09/15/16 4:30:00 [employer] heparin 2016-0 No 500 mL, Memoria additive 1- Rate: l 25,000 unit 10:31: 20.68 Mariah nn [14 00 ml/hr, unit/kg/hr] Infuse + Premix over: 24.2 Diluent hr, Route: Dextrose 5% IV, Dosing 500 mL Weight 73.84 kg, Total Volume: 500 mL, Start date: 08/16/16 4:31:00 [employer], Duration: 30 day, Stop date: 09/15/16 4:30:00 [employer] Magnesium 2016-0 No Notes: Memori a Sulfate 08-16 WASTE: F/P l 09:19: - Sink; E [place] - Municipal Trash Bin Magnesium No Notes: Memori a Sulfate 08-16 WASTE: F/P l 09:19: - Sink; E [place] - Municipal Trash Bin Magnesium 0 No 2 gm, Memoria Sulfate 08-16 Route: l 09:18: IVPB, Drug [place] 00 form: INJ, ONCE, Dosing Weight 82, kg, Start date: 08/16/16 3:18:00 [employer], Duration: 2 hr, Stop date: 08/16/16 3:18:00 [employer] Magnesium 2016-0 No 2 gm, Memoria Sulfate 08-16 Route: l 09:18: IVPB, Drug [place] 00 form: INJ, ONCE, Dosing Weight 82, kg, Start date: 08/16/16 3:18:00 [employer], Duration: 2 hr, Stop date: 08/16/16 3:18:00 [employer] Norepinephr No Notes: Not Memoria ine 08-16 for direct l 08:34: administra [place] 00 tion - DILUTE. Protect from light. [...] Memoria 08-16 (Same as: l 07:49: Versed) [place] 00 MEDICATION WASTE Product Size: 2 mg [...] Total Volume: 20, Start date: 08/16/16 1:48:00 [employer], Durati... Fentanyl No 1,000 Memoria 1-23 microgram, l 07:48: 20 mL, Rate: Titrate, Start Dose: 50 microgram/ hr, Titration: 25 microgram/ hour every 15 minutes, Goal(s): RASS -2, Max Dose: 300 microgram/ hr, Route: IV, Dosing Weight 82 kg, Total Volume: 20, Start date: 08/16/16 1:48:00 [employer], Durati... tramadol Yes 50 mg = 1 [...] 2 tab, PO, l tablet 15:13: Bedtime, [place] 00 PRN Constipati on, AVAILABLE OVER THE COUNTER WITHOUT PRESCRIPTI ON, X 10 day, # 20 tab, 0 Refill(s) Amylases Yes 1 cap, PO, Mem oria 50957 UNT / 3-22 BID, PRN l Endopeptida 15:13: snack, 0 [place] ses [id number] 00 Refill(s) UNT / Lipase 6000 UNT [...] tab, PO, l tablet 15:13: TID, PRN [place] 00 Bladder Spasm, 0 Refill(s) tramadol No [...] Amylases Yes 1 cap, PO, Mem oria 93625 UNT / 3-22 BID, PRN l Endopeptida 15:13: snack, 0 [place] [id number] 00 Refill(s) UNT / Lipase 6000 UNT Enteric Coated Capsule [Creon 6] docusate Yes 100 mg = 1 Mem oria sodium 100 3-22 cap, PO, l mg oral 15:13: BID, [place] capsule 00 AVAILABLE OVER THE COUNTER WITHOUT PRESCRIPTI ON, # 60 cap, 0 Refill(s) oxybutynin Yes 5 mg = 1 Mem oria 5 mg oral 3-22 tab, PO, l tablet 15:13: TID, PRN [place] 00 Bladder Spasm, 0 Refill(s) tramadol No [...] 10-12 Same as l 14:39: Levemir Do [place] 00 not hold insulin without contacting prescriber WASTE: F/P - Black; E - Municipal Trash Bin "single patient use only" insulin No Notes: Memoria detemir 10-12 Same as l 14:39: Levemir Do [place] 00 not hold insulin without contacting prescriber WASTE: F/P - Black; E - Municipal Trash Bin "single patient use only" Enoxaparin No Notes: Memor ia 3-21 (Same as: l 14:00: Lovenox) Joe Kenalog No Notes: Memoria 0.1% 3- (triamcino l topical 14:00: lone [place] cream 00 acetonide 0.1% 15 gm top CRM) (Same As: Kenalog) Enoxaparin No Notes: Memor ia 3-21 (Same as: l 14:00: Lovenox) [place] 00 Kenalog No Notes: Memoria 0.1% 3-21 [...] Roll in l Human 16:30: palms of [place] 00 hands gently; Do not shake vigorously [...] 3-20 Same as l 15:00: Levemir Do [place] 00 not hold insulin without contacting prescriber [...] Notes: Memoria 3-19 (Same l 14:00: as:Robaxin [place] 00 ) Flomax No Notes: Memoria 3-19 (Same As: l 14:00: Flomax) [place] 00 "Do Not Crush" pantoprazol No Notes: [...] not crush l Coated 14:00: or chew. [place] Tablet 00 (Same As: Ecotrin) Robaxin No Notes: Memoria 3-19 (Same l 14:00: as:Robaxin [place] 00 ) Flomax No Notes: Memoria 3-19 (Same As: l 14:00: Flomax) [place] 00 "Do Not Crush" pantoprazol 0 No Notes: Kashif bello e 3-19 Tablet l 14:00: should not [place] 00 be chewed or crushed. (Same as: Protonix) Finasteride No Notes: Kashif bello 3-19 (Same as: l 14:00: Proscar) [place] 00 "Do Not Crush" Women of childbeari ng age should not touch or handle broken tablets duloxetine 0 No Notes: Memor ia 3-19 (Same as: l 14:00: Cymbalta) [place] 00 (Do Not Crush) Aspirin 81 No Notes: Do Me moria MG Enteric 3-19 not crush l Coated 14:00: or chew. Joe Tablet 00 (Same As: Ecotrin) Amylases No Notes: Memoria 55277 UNT / 3-19 (lipase l Endopeptida 13:00: 60,000 [place] [address] 00 units, UNT / protease Lipase 6000 19,000 UNT Enteric units, Coated amylase Capsule 30,000 [Creon 6] units DRC) Same as: Carolon (Creon 6) Amylases No Notes: Memoria 42822 UNT / 3-19 (lipase l Endopeptida 13:00: 60,000 [place] 113[address] 00 units, UNT / protease Lipase 6000 19,000 UNT Enteric units, Coated amylase Capsule 30,000 [Creon 6] units DRC) Same as: Sumit (Creon 6) Amylases No Notes: Memoria 15895 UNT / 3-19 (lipase l Endopeptida 12:16: 60,000 Herm [place] [address] 00 units, UNT / protease Lipase 6000 19,000 UNT Enteric units, Coated amylase Capsule 30,000 [Creon 6] units DRC) Same as: Creon (Creon 6) Amylases No Notes: Memoria 89140 UNT / 3-19 (lipase l Endopeptida 12:16: 60,000 [place] [address] 00 units, UNT / protease Lipase 6000 [...] 3-18 Same as l 22:12: Levemir Do [place] 00 not hold insulin without contacting prescriber [...] ia 3-18 Same as l 22:00: Lyrica [place] Lyrica No Notes: Memoria 3-18 (Same as: l 22:00: Lyrica) [place] Amylases No Notes: Memoria 34036 UNT / 3-18 (lipase l Endopeptida 22:00: 60,000 [place] [address] 00 units, UNT / protease Lipase 6000 19,000 UNT Enteric units, Coated amylase Capsule 30,000 [Creon 6] units [facility]) Same as: Creon (Creon 6) pregabalin No Notes: Memor ia 3-18 Same as l 22:00: Lyrica [place] Lyrica No Notes: Memoria 3-18 (Same as: l 22:00: Lyrica) [place] Amylases No Notes: Memoria 80650 UNT / 3-18 (lipase l Endopeptida 22:00: 60,000 [place] [address] 00 units, UNT / protease Lipase 6000 19,000 UNT Enteric units, Coated amylase Capsule 30,000 [Creon 6] units [facility]) Same as: Creon (Creon 6) oxybutynin No [...] Amylases No 1 cap, PO, Mem oria 63130 UNT / 3-18 QID, # 120 l Endopeptida 18:27: cap, 0 [place] [address] 00 Refill(s) UNT / Lipase 6000 UNT [...] detemir 3-18 SUB-Q, l 18:27: Daily, 0 [place] 00 Refill(s) pregabalin Yes 150 mg = [...] tab, PO, l tablet 18:27: TID, PRN [place] 00 Other-See Comments, # 30 tab, 0 [...] Amylases No 1 cap, PO, Mem oria 16723 UNT / 3-18 QID, # 120 l Endopeptida 18:27: cap, 0 Herm [place]am[place] [id number] 00 Refill(s) UNT / Lipase 6000 UNT [...] tab, PO, l tablet 18:27: Daily, # [place] 00 30 tab, 0 Refill(s) metoprolol Yes [...] detemir 3-18 SUB-Q, l 18:27: Daily, 0 [place] 00 Refill(s) pregabalin Yes 150 mg = [...] tab, PO, l tablet 18:27: TID, PRN [place] 00 Other-See Comments, # 30 tab, 0 Refill(s) Aspirin 81 Yes 81 mg = 1 Me moria MG Enteric 3-18 tab, PO, l Coated 18:11: Daily, # [place] Tablet 00 90 tab, 3 Refill(s) latanoprost [...] Daily, # l 18:11: 30 tab, 0 [place] 00 Refill(s) Tamsulosin Yes 0.4 mg = 1 M emoria hydrochlori 3-18 cap, PO, l de 0.4 MG 18:11: Daily, 0 Herm annamaria Oral 00 Refill(s) Capsule [Flomax] metoprolol No BID, 0 Memor ia tartrate 3-18 Refill(s) l 18:11: Joe duloxetine No PO, 0 Memori a 3-18 Refill(s) l 18:11: [place] Ibuprofen No 0 Memoria 3-18 Refill(s) l 18:11: Joe Ranitidine No 0 Memoria 3-18 Refill(s) l 18:11: Joe insulin No SUB-Q, 0 Memori a detemir 3-18 Refill(s) l 18:11: [place] 00 Aspirin 81 Yes 81 mg = 1 Me moria MG Enteric 3-18 tab, PO, l Coated 18:11: Daily, # [place] Tablet 00 90 tab, 3 Refill(s) latanoprost [...] Memor ia tartrate 3-18 Refill(s) l 18:11: [place] 00 duloxetine No PO, 0 Memori a 3-18 Refill(s) l 18:11: [place] 00 Ibuprofen No 0 Memoria 3-18 Refill(s) l 18:11: [place] Ranitidine No 0 Memoria 3-18 Refill(s) l 18:11: [place] 00 insulin 0 No SUB-Q, 0 Memori a detemir 3-18 Refill(s) l 18:11: Hydralazine No Notes: Kashif bello 3-18 (Same as: l 17:09: Apresoline ) Push over 5 minutes Hydralazine No Notes: Kashif bello 3-18 (Same as: l 17:09: Apresoline ) Push over 5 minutes Insulin 0 No 60 Memoria regular 3-18 units) l 13:25: WASTE: F/P [place] 00 - Black; E - Municipal Trash [...] 30 day, Stop date: 11/09/15 8:24:00 Insulin 2015-0 No 60 Memoria regular 3-18 units) l 13:25: WASTE: F/P [place] 00 - Black; E - Municipal Trash Bin Stable for 28 days at room temperatur e Expires in days from ____Date Dextrose 2015-0 No 25 gm, 50 Kashif bello 50% Syringe 3-18 mL, Route: l 13:25: IVP, Drug [place] 00 Form: INJ, Dosing Weight 84.8, kg, [...] en 3-18 acetaminop l 05:00: hen 4000 [place] 00 mg/day (4 gm/day). (Same as: Tylenol Extra Strength) Acetaminoph No Notes: Max Memoria en 3-18 acetaminop l 05:00: hen 4000 [place] 00 mg/day (4 gm/day). (Same as: Tylenol Extra Strength) Haldol No Notes: Memoria 3-18 (Same as: l 04:47: Haldol) [place] Haldol No Notes: Memoria 3-18 (Same as: l 04:47: Haldol) [place] sennosides, No Notes: Kashif bello CARE HOME 3-18 (Same as: l 02:00: Senokot) [place] Docusate No Notes: Memoria 3-18 (Same as: l 02:00: Colace) [place] (Do Not Crush) sennosides, No Notes: Kashif bello CARE HOME 3-18 (Same as: l 02:00: Senokot) [place] Docusate No Notes: Memoria 3-18 (Same as: l 02:00: Colace) [place] (Do Not Crush) metoprolol No Notes: Memor ia tartrate 3-18 (Same as: l 00:51: Lopressor) [place] metoprolol No Notes: Memor ia tartrate 3-18 (Same as: l 00:51: Lopressor) [place] 00 Oxycodone No Notes: Memori a Hydrochlori 3-17 (Same as: l de 5 MG 22:23: Roxicodone Herm annamaria Oral Tablet ) Oxycodone No Notes: Memori a Hydrochlori 10-08 (Same as: l de 5 MG 22:23: Roxicodone Herm annamaria Oral Tablet ) Dextrose No 12.5 gm, Memor ia 50% Syringe 3-17 25 mL, l 22:20: Route: [place] 00 IVP, Drug Form: INJ, Dosing Weight 84.8, kg, PRN, PRN Abnormal Lab Result, Start date: 10/09/15 17:20:00, Duration: 30 day, Stop date: 11/08/15 17:19:00, For [facility] 40 mg/dL - 60 mg/dL Insulin No 60 Memoria regular 3-17 units) l 22:20: WASTE: F/P [place] 00 - Black; E - Municipal Trash [...] ne 10-08 Same as: l 19:00: Dilaudid [place] 00 Hydromorpho No Notes: Kashif bello ne 3-17 Same as: l 19:00: Dilaudid [place] 00 Dilaudid No 1 mg, Memoria 3-17 Route: l 15:12: IVP, ONCE, [place] 00 Dosing Weight 81.818, kg, Priority: STAT, Start date: 10/09/15 10:12:00, Stop date: 10/09/15 10:12:00 Dilaudid No 1 mg, Memoria 3-17 Route: l 15:12: IVP, ONCE, [place] 00 Dosing Weight 81.818, kg, Priority: STAT, Start date: 10/09/15 10:12:00, Stop date: 10/09/15 10:12:00 Hydromorpho No Notes: Kashif bello ne 3-17 Same as: l 12:55: Dilaudid [place] 00 Hydromorpho No Notes: Kashif bello ne 3-17 Same as: l 12:55: Dilaudid Joe Fentanyl No Notes: Memoria 3-17 (Same as: l 09:26: Sublimaze) Joe 00 Preservat lisa free. Fentanyl No Notes: [...] 3-17 IVP, PRN, l [place] 07:39: 4,400 [place] (Heparin 00 unit, 4.4 Dosing mL, Drug [...] 3-17 IVP, PRN, l [place] 07:39: 2,200 [place] (Heparin 00 unit, 2.2 Dosing mL, Drug Weight) form: INJ, PRN, Heparin Protocol, Start date: 10/09/15 2:39:00 Stop date: 11/08/15 2:38:00, 30 day Heparin 60 No Route: Memor ia unit/kg 3-17 IVP, PRN, l [place] 07:39: 4,400 [place] (Heparin 00 unit, 4.4 Dosing mL, Drug [...] Source Respitory Rate 2016-08-18 21:09:00 [facility] [place] Systolic (mm Hg) 2016-08-18 21:09:00 [facility] [place] Diastolic (mm Hg) 2016-08-18 21:09:00 [facility] [place] Systolic (mm Hg) 2016-08-18 20:00:00 Kashif [facility] Diastolic (mm Hg) 2016-08-18 20:00:00 [facility] [place] Respitory Rate 2016-08-18 20:00:00 [facility] Systolic (mm Hg) 2016-08-18 19:00:00 [facility] Diastolic (mm Hg) 2016-08-18 19:00:00 [facility] [place] Respitory Rate 2016-08-18 19:00:00 [facility] [place] Temperature Oral (F) 2016-08-18 17:51:00 98.3 F [facility] [place] Temperature Oral (F) 2016-08-18 14:26:00 97.9 F [facility] Temperature Oral (F) 2016-08-18 11:27:00 96.9 F [facility] [place] Height 2016-08-16 16:29:00 172.72 cm [facility] Height 2016-08-16 14:43:00 172.72 cm [facility] [place] Height 2016-08-16 08:55:00 172.72 cm [facility] Weight 2016-08-16 07:02:00 [facility] BMI Calculated 2016-08-16 07:02:00 [facility] Heart Rate 2015-10-14 17:16:00 [facility] Respitory Rate 2015-10-14 17:16:00 [facility] Temperature Oral (F) 2015-10-14 17:16:00 97.8 F [facility] Systolic (mm Hg) 2015-10-14 17:16:00 Kashif [facility] [place] Diastolic (mm Hg) 2015-10-14 17:16:00 [facility] [place] Respitory Rate 2015-10-14 13:12:00 [facility] Systolic (mm Hg) 2015-10-14 13:12:00 Kashif [facility] Diastolic (mm Hg) 2015-10-14 13:12:00 [facility] Temperature Oral (F) 2015-10-14 13:12:00 97.8 F [facility] Heart Rate 2015-10-14 13:12:00 [facility] [place] Respitory Rate 2015-10-14 11:26:00 [facility] [place] Systolic (mm Hg) 2015-10-14 11:26:00 [facility]if [facility] [place] Diastolic (mm Hg) 2015-10-14 11:26:00 [facility] [place] Temperature Oral (F) 2015-10-14 11:26:00 97.7 F [facility] Heart Rate 2015-10-14 11:26:00 [facility] [place] BMI Calculated 2015-10-09 21:00:00 [facility] [place] Weight 2015-10-09 21:00:00 [facility] [place] Height 2015-10-09 21:00:00 172.72 cm [facility] Weight 2015-10-09 06:32:00 [facility] [place] Height 2015-10-09 06:32:00 172.72 cm [facility] BMI Calculated 2015-10-09 06:32:00 [facility] Procedures Procedure Date / Time Performed Performing Clinician [facility] e Pancreas [facility] [place] excision<sup>1</sup> Encounters Start End Encounter Admission Attending Care Care Encounter Source Date/Time Date/Time Type Type Clinicians Facility Department ID 2016-08-16 2016-08-18 Outpatient Michela [facility] [id number] 00:53:00 16:10:00 Viktor 69 2016-08-16 2016-08-18 Outpatient Michela [facility] [id number] 00:53:00 16:10:00 Viktor Micheal 2015-10-08 2015-10-14 Outpatient Mouser, [facility] [id number] 01:32:00 13:55:00 Leland Melendez 2015-10-08 2015-10-14 Outpatient Mouser, [facility] [id number] 01:32:00 13:55:00 Leland Melendez Results Test [...] code = MCH) 27.0 pg 27.0-31.0 [facility] NpirunpHIXBNMDJVF0040-54-59 10:45:0084.2[facility] HermannHEMATOLOGY 2016-08-18 10:45:0070.2[facility] ZdvneufQFHGIRCSGS7037-99-71 10:45:000.3[facility] EhzxfxeWQVTOWLIEX1798-74-19 10:45:000.5[facility] RbcvumoVXOERFVJWQ8141-70-86 10:45:006.5[facility] FroyzknERQPGBNKEP8611-87-53 10:45:000.3[facility] IAVIIGNPVC5932-15-01 10:45:005.6[facility] XflfsncJMQNAHTXFA8655-71-42 10:45:003.4 [facility] BlxurauLMULAPPAQL0454-82-33 10:45:001.6[facility] HermannHEMATOLOGY 2016-08-18 10:45:0019.6[facility] HermannCHEM CVXFX7847-23-66 10:45:001.9[facility] HermannCHEM UKYMC5319-77-31 10:45:009.2[facility] HermannCHEM TAMJR2836-39-92 10:45:0085[facility] HermannCHEM OFUEQ0368-89-14 10:45:0014[facility] HermannCHEM WWOIH0200-77-56 10:45:89086Txmlemnl HermannCHEM QCJOL1358-79-93 10:45:000.92 [facility] HermannCHEM WIBKX3039-47-56 10:45:19703Fschakda HermannCHEM PANEL 2016-08-18 10:45:004.1[facility] HermannCHEM EXFWX2077-74-42 10:45:78200Mtlpilhd HermannCHEM JJYVC0754-47-73 10:45:0029[facility] HermannCHEM MIZJN8627-47-35 10:45:0013.1[facility] HermannCHEM KBCAV9828-92-98 10:45:003.7[facility] KUVRWVXGNA5507-99-89 10:45:39136Rhwzqqto XhehuetHYGQNCUVWS6558-40-77 10:45:009.1 [facility] LxviremREKHZCHHHP2681-23-01 10:45:0017.0[facility] HermannHEMATOLOGY 2016-08-18 10:45:0032.1[facility] YmerhzqQCGMIRVLGS3308-02-19 10:45:0038.7[facility] GvujlpuXCSMLCOCEU0984-40-32 10:45:004.60[facility] CuhiiinXYIRHRAVOX4176-35-54 10:45:008.0[facility] XkzshhtOMVLJRVRIU9619-58-26 10:45:0012.4[facility] [place] XCQJZQVBCP1747-96-89 10:45:00 Test Item Value Reference Range Interpretation Comments MCH (test code = MCH) 27.0 pg 27.0-31.0 [facility] IaexppkUOALIOATLW5633-50-05 10:45:0084.2[facility] HermannHEMATOLOGY 2016-08-18 10:45:0070.2[facility] PkzbexzDIIGKTXJFE6808-73-53 10:45:000.3[facility] AgugmueJTAPALENMT5379-21-35 10:45:000.5[facility] SdsjwdzSJUZDQYSOZ2547-86-91 10:45:006.5[facility] DpwqltzOKCDTPLAUL2180-98-27 10:45:000.3[facility] [place] RKPEBGTQAK5304-87-82 10:45:005.6[facility] SeurbmhYBGIMWXRRF3457-77-75 10:45:003.4 [facility] IjftbdyTOZTKVFGIX0190-77-29 10:45:001.6[facility] HermannHEMATOLOGY 2016-08-18 10:45:0019.6[facility] HermannCHEM RBCDM3105-19-44 16:29:0074[facility] HermannCHEM IDVOZ9431-12-05 16:29:001.03[facility] HermannCHEM SXPXV3658-38-63 16:29:67641Slamyzqr HermannCHEM RHCXC8073-55-96 16:29:004.3[facility] HermannCHEM WTHSS0198-61-66 16:29:81664Sbrnotcx HermannCHEM NHPMJ4564-18-37 16:29:0029 [facility] HermannCHEM MMGTV5291-90-02 16:29:008.6[facility] HermannCHEM PANEL 2016-08-17 16:29:0017[facility] HermannCHEM DVNUF2418-05-00 16:29:43242Sldwuyxr HermannCHEM BXURJ2842-76-04 16:29:0011.3[facility] HermannCHEM TMPRF4651-07-37 16:29:0074[facility] HermannCHEM IKIAB3258-11-44 16:29:001.03[facility] HermannCHEM MYEGF0255-25-06 16:29:26046Wnhwapbx HermannCHEM FCBYK3177-59-61 16:29:004.3 [facility] HermannCHEM OFQIG2383-00-80 16:29:86507Ajakhusz HermannCHEM PANEL 2016-08-17 16:29:0029[facility] HermannCHEM VDCOZ4873-42-24 16:29:008.6[facility] HermannCHEM HKPMD1426-16-37 16:29:0017[facility] HermannCHEM ZZMLW6643-57-70 16:29:71206Nsnmzjky HermannCHEM HTPAO4180-70-32 16:29:0011.3[facility] HermannCHEM UFNCW2106-57-34 10:01:004.2[facility] HermannCHEM HTFXB6792-93-81 10:01:003.6 [facility] HermannCHEM KWZAE9719-16-72 10:01:0010.8[facility] HermannCHEM PANEL 2016-08-17 10:01:0017[facility] HermannCHEM ULTNS8785-15-76 10:01:000.8[facility] HermannCHEM RLAAY1722-46-66 10:01:0069[facility] HermannCHEM SXBPD5083-50-25 10:01:001.09[facility] HermannCHEM KOLEI9265-02-13 10:01:75249Lotwfkqb HermannCHEM EUCFU6299-09-43 10:01:0019[facility] HermannCHEM CXXVD9812-18-47 10:01:0082 [facility] HermannCHEM NDOGL8120-78-18 10:01:000.4[facility] HermannCHEM PANEL 2016-08-17 10:01:0016[facility] HermannCHEM MYXFW8002-08-52 10:01:006.5[facility] HermannCHEM OXCOP4492-87-21 10:01:008.6[facility] HermannCHEM LAJYF1875-60-60 10:01:004.8[facility] HermannCHEM FPWPJ1617-62-28 10:01:05868Mitylkhn HermannCHEM UTOMW3852-34-79 10:01:0028[facility] HermannCHEM IPHXL2771-22-28 10:01:002.9 [facility] HermannCHEM QMEZM8919-27-72 10:01:0012[facility] HermannCHEM PANEL 2016-08-17 10:01:02542Uctsgsna HermannCHEM HNGYT6647-45-25 10:01:001.9[facility] ZjyvublJLUDUMETWG8017-46-11 10:01:001.18[facility] SheleatAPJOFBBVFP7237-10-87 10:01:00 Test Item Value Reference Range Interpretation Comments PT (test code = PT) 15.3 s 12.0-14.7 [facility] DpouectUUWOSAHNJM6392-29-56 10:01:00 Test Item Value Reference Range Interpretation Comments PTT (test code = PTT) 66.0 s 22.9-35.8 [facility] MttaytaIKIKUJYJUE0503-96-23 10:01:59345Isyannoj HermannHEMATOLOGY 2016-08-17 10:01:008.5[facility] SslirsbSAQCZHWJAV1264-22-34 10:01:004.14[facility] CkcrygdWXGKIMEELV9437-42-70 10:01:0034.6[facility] GohhbfcTUIFXANWAP5829-29-85 10:01:006.9[facility] RpxzclaNMRHAZZGSK7122-77-29 10:01:0083.7[facility] [place] RLFDQDCYIU9128-61-09 10:01:0017.4[facility] HocbabzUCJIZJAJDZ7631-07-86 10:01:00 33.0[facility] VxifxlgZDZQBRVPGK2752-68-87 10:01:0011.4[facility] HermannHEMATOLOGY 2016-08-17 10:01:00 Test Item Value Reference Range Interpretation Comments MCH (test code = MCH) 27.7 pg 27.0-31.0 [facility] ZthqtntXGRMLNWXCH0431-92-19 10:01:000.5[facility] HermannHEMATOLOGY 2016-08-17 10:01:002.1[facility] KvbftnfDFLLWKGSYM1990-94-51 10:01:000.3[facility] KzbbwsxMEJPCTISMH1591-15-65 10:01:004.0[facility] RgavboaVNUGLSBZMF6555-87-02 10:01:006.8[facility] XmasmoiWJGMOLCMPJ6570-61-02 10:01:000.4[facility] [place] CZVFBFMEAZ5519-87-50 10:01:004.3[facility] TreotkgSNCBQJCXEH4686-52-85 10:01:00 30.0[facility] GbavgggVQULDQWVGR2608-04-58 10:01:0058.5[facility] HermannPARATHYROID YMEELHF0858-88-17 10:01:001.11[facility] HermannPARATHYROID UJUOUYJ0087-95-36 10:01:001.11[facility] HermannCHEM WOEXC4729-00-08 10:01:004.2[facility] HermannCHEM XXETS1205-32-57 10:01:003.6[facility] HermannCHEM CDDJH8139-55-93 10:01:0010.8 [facility] HermannCHEM APFCC3697-87-65 10:01:0017[facility] HermannCHEM PANEL 2016-08-17 10:01:000.8[facility] HermannCHEM XKDZB5106-77-24 10:01:0069[facility] HermannCHEM XSLPE0693-21-68 10:01:001.09[facility] HermannCHEM KQGXV3040-00-94 10:01:36478Pfkeazth HermannCHEM EIUQS1092-37-80 10:01:0019[facility] HermannCHEM MOOWV9780-77-65 10:01:0082[facility] HermannCHEM ATMWG3264-23-53 10:01:000.4 [facility] HermannCHEM RYTIL7585-76-87 10:01:0016[facility] HermannCHEM PANEL 2016-08-17 10:01:006.5[facility] HermannCHEM YNEGP1358-87-54 10:01:008.6[facility] HermannCHEM HUCZI1055-34-66 10:01:004.8[facility] HermannCHEM YGPPP9882-80-43 10:01:28889Hqiblfrg HermannCHEM WIRCD6650-95-53 10:01:0028[facility] HermannCHEM UQGAM7568-87-67 10:01:002.9[facility] HermannCHEM LZNDJ4879-52-21 10:01:0012 [facility] HermannCHEM GGRNA5446-05-72 10:01:68165Zieamcul HermannCHEM PANEL 2016-08-17 10:01:001.9[facility] EkvxoavQENYCVTTKD5743-70-96 10:01:001.18[facility] XboeyfvVHPSSFUTGV9476-32-30 10:01:00 Test Item Value Reference Range Interpretation Comments PT (test code = PT) 15.3 s 12.0-14.7 [facility] KqvhnzxVZXYWYSLZS1282-18-59 10:01:00 Test Item Value Reference Range Interpretation Comments PTT (test code = PTT) 66.0 s 22.9-35.8 [facility] OdsifyyLZNQDURFWV5200-56-29 10:01:86506Poqtsztb HermannHEMATOLOGY 2016-08-17 10:01:008.5[facility] GphtmvrZQVRGSQHDD3943-98-02 10:01:004.14[facility] TlgyzgeTPWFDTLXCZ5486-88-81 10:01:0034.6[facility] HskxqfyTZDAPLEJTD4415-52-52 10:01:006.9[facility] BjsopdtQTCZJMISUM9587-40-23 10:01:0083.7[facility] DKNWMOIHBO2953-17-04 10:01:0017.4[facility] XvphnywFDLUZIWQWM5458-56-91 10:01:00 33.0[facility] JkmsvjpEWUZFUFWQU3319-11-08 10:01:0011.4[facility] HermannHEMATOLOGY 2016-08-17 10:01:00 Test Item Value Reference Range Interpretation Comments MCH (test code = MCH) 27.7 pg 27.0-31.0 [facility] JqzneclQYHGGHAWVN7318-01-63 10:01:000.5[facility] HermannHEMATOLOGY 2016-08-17 10:01:002.1[facility] XtdjzjyIKLLRHQZDL3395-76-12 10:01:000.3[facility] EmnexekXLKFGNBWVE7347-61-58 10:01:004.0[facility] GlikcddVRTUOQMLRN4937-04-78 10:01:006.8[facility] OnqbasvRBCOBKMLAZ9188-81-59 10:01:000.4[facility] ZCYLSPBTOU2890-55-02 10:01:004.3[facility] QmkktmwGFUGXVXHGA8577-21-03 10:01:00 30.0[facility] OxpnitqNQPDDCMUIW1313-17-97 10:01:0058.5[facility] HermannPARATHYROID DHVJIXJ3734-38-92 10:01:001.11[facility] HermannPARATHYROID BTXDNPX1591-67-34 10:01:001.11[facility] HermannCHEM RMKEY5416-09-13 23:57:004.1[facility] HermannCHEM QEWZT8289-71-32 23:57:001.8[facility] VzyltjuTAVTRBGFAA9099-49-34 23:57:00 Test Item Value Reference Range Interpretation Comments PTT (test code = PTT) 63.3 s 22.9-35.8 [facility] RgpgtyxPJEXJOQSJP7853-74-15 23:57:001.17[facility] HermannHEMATOLOGY 2016-08-16 23:57:00 Test Item Value Reference Range Interpretation Comments PT (test code = PT) 15.1 s 12.0-14.7 [facility] HermannCHEM XFHUE6182-08-63 23:57:004.1[facility] HermannCHEM PANEL 2016-08-16 23:57:001.8[facility] RmrgmcsAKASJAORIP5443-42-35 23:57:00 Test Item Value Reference Range Interpretation Comments PTT (test code = PTT) 63.3 s 22.9-35.8 [facility] KuipqlrRSCXGPGHRF2808-58-86 23:57:001.17[facility] HermannHEMATOLOGY 2016-08-16 23:57:00 Test Item Value Reference Range Interpretation Comments PT (test code = PT) 15.1 s 12.0-14.7 [facility] HermannURINE CQWB4656-87-71 20:05:00>10[facility] HermannURINE CHEM 2016-08-16 20:05:86178Wqsxuuva HermannURINE KZPL0706-90-91 20:05:0033.9[facility] HermannURINE TLFD4336-35-64 20:05:18753Pkepvuqp HermannURINE DLEI6120-77-22 20:05:00>10[facility]annURINE CYAX6106-27-42 20:05:91024Psyzjhce [place] URINE TKGC4378-92-92 20:05:0033.9[facility] HermannURINE TNVN8546-58-56 20:05:00 115[facility] IwmpnobAQKIAOREVG8768-50-32 17:50:0071.2[facility] HermannHEMATOLOGY 2016-08-16 17:50:0018.2[facility] XrudkhaDQKSDBRXZL1680-14-84 17:50:006.8[facility] HeolndsMESHPJPYES5234-43-28 17:50:003.3[facility] ZtkwlipREHUOFHCEX0010-82-75 17:50:000.5[facility] DphwnkfJZAQJNKUUU0622-51-13 17:50:006.2[facility] CNEODXGVFB4397-57-99 17:50:000.6[facility] CsyszrySUDORBZGYX4642-45-32 17:50:001.6 [facility] XagckupBWTRUWSNIS3843 17:50:000.3[facility] HermannHEMATOLOGY 2016-08-16 17:50:00 Test Item Value Reference Range Interpretation Comments PTT (test code = PTT) 65.2 s 22.9-35.8 [facility] ZoocfqoJWWKNSNGRP1532-75-99 17:50:001.19[facility] HermannHEMATOLOGY 2016-08-16 17:50:00 Test Item Value Reference Range Interpretation Comments PT (test code = PT) 15.4 s 12.0-14.7 [facility] ThtptaxEWXFHVVSJF9952-39-26 17:50:008.9[facility] HermannHEMATOLOGY 2016-08-16 17:50:16205Nceviqjw JkgmrarDGBJCSORXJ4758-72-82 17:50:0017.2[facility] WyonmzvJXAYDGTHEO5460-24-63 17:50:0032.3[facility] MhmesgwDFUZAPMANW0584-87-68 17:50:00 Test Item Value Reference Range Interpretation Comments MCH (test code = MCH) 26.8 pg 27.0-31.0 [facility] ZprvcieRIYRYYAQWG5418-77-21 17:50:0035.9[facility] HermannHEMATOLOGY 2016-08-16 17:50:0011.6[facility] MiywlmpODFEBNGCMG6112-46-58 17:50:0083.0[facility] JdlztixIVODUHLMYM0592-40-58 17:50:004.32[facility] OknpdldAWBNSNNCHC7845-64-40 17:50:008.7[facility] MjekedvSVLRXMAHHG8816-44-46 17:50:0071.2[facility] [place] AVZCMSGLCA2806-51-83 17:50:0018.2[facility] HfpxclzKLLPIAPOTZ5752-44-50 17:50:00 6.8[facility] FhriwidXNEYEQGDLV5139-12-19 17:50:003.3[facility] HermannHEMATOLOGY 2016-08-16 17:50:000.5[facility] OtjfnnsSCRALPHACR8899-10-51 17:50:006.2[facility] WkpshbfCDSTCEHGJR8212-92-09 17:50:000.6[facility] OdiokfnZWOCMAPLJL4770-07-18 17:50:001.6[facility] BvdidrwGKFMELHXYJ4623-71-43 17:50:000.3[facility] [place] WVLSNLXVTW9481-95-74 17:50:00 Test Item Value Reference Range Interpretation Comments PTT (test code = PTT) 65.2 s 22.9-35.8 [facility] KssxmamWETFOHGMYP7062-60-58 17:50:001.19[facility] HermannHEMATOLOGY 2016-08-16 17:50:00 Test Item Value Reference Range Interpretation Comments PT (test code = PT) 15.4 s 12.0-14.7 [facility] MqxicnfUHSRLAXCOU1946-15-81 17:50:008.9[facility] HermannHEMATOLOGY 2016-08-16 17:50:56821Oizpwzrv HfpfkgbVVKJMWPWNF0468-57-55 17:50:0017.2[facility] BasmujvGYUFZYRBWQ5337-33-23 17:50:0032.3[facility] ExduwsdAXGXJNVFCH8440-38-44 17:50:00 Test Item Value Reference Range Interpretation Comments MCH (test code = MCH) 26.8 pg 27.0-31.0 [facility] VdpojwrLIBXRLDFDJ0966-36-51 17:50:0035.9[facility] HermannHEMATOLOGY 2016-08-16 17:50:0011.6[facility] IlkvlbpCMATWMMPCN5560-92-19 17:50:0083.0[facility] OaeliwrPMFGFGSPZC9658-48-58 17:50:004.32[facility] VhzpcwhZKUBUBIBVI7404-99-21 17:50:008.7[facility] HermannCARDIAC ZYYETAY0772-71-07 11:16:000.13[facility] HermannCARDIAC FFKRDPE5804-36-67 11:16:0039[facility] HermannCARDIAC ENZYMES 2016-08-16 11:16:000.026[facility] HermannCHEM GUZGU4657-15-50 11:16:001.5[facility] QedcwavGYBYLZJFZ5756-41-56 11:16:0054[facility] HermannCARDIAC BPYQAIQ8789-70-27 11:16:000.13[facility] HermannCARDIAC PKSRRFA1191-38-78 11:16:0039[facility] CARDIAC ARGPWPH4686-01-94 11:16:000.026[facility] HermannCHEM CNEKV4525-83-33 11:16:001.5[facility] ZutztcnVRUIBIVGQ6379-36-67 11:16:0054[facility] HermannCHEM JMBTN9364-86-06 07:20:002.2[facility] HermannCHEM KNWUE0901-78-30 07:20:002.2 [facility] HermannBACTERIAL - JBTXZMTH7122-44-12 07:06:00Positive 1*ABN*(08/16/16 1:06 AM)[facility]annBLOOD BANK CCYIXMH9055-97-29 07:06:00Negative (08/16/16 1:06 AM)[facility] HermannCARDIAC ZILDASS2172-60-70 07:06:000.05[facility] [place] CARDIAC ITOOWUU4596-27-04 07:06:0040[facility] HermannCARDIAC MQMBSKH7001-42-79 07:06:00<0.010[facility] HermannCHEM AOCTY6814-46-61 07:06:001.0[facility] HermannCHEM WBAFY4837-69-65 07:06:003.2[facility] HermannCHEM TKVQI4068-07-68 07:06:40352Fbcupfyp HermannCHEM NQPZQ2655-47-27 07:06:006.4[facility] HermannCHEM SXWDH3098-85-88 07:06:006[facility] HermannCHEM QHXHV2358-31-67 07:06:000.4 [facility] HermannCHEM IVKEN1050-08-87 07:06:003.2[facility] HermannCHEM PANEL 2016-08-16 07:06:0079[facility] HermannCHEM WMXCJ1731-45-15 07:06:0020[facility] WqoslaqXEBFSQ6756-61-95 07:06:0069[facility] BywpvvuXWGVTV8748-96-34 07:06:0050 [facility] BzivukvMEFCQJ2165-88-24 07:06:0033[facility] PlcrlujBSVLPR6816-33-26 07:06:0026[facility] TzksixtPYCUFR1020-82-26 07:06:002.09[facility] HermannLIPIDS 2016-08-16 07:06:0010[facility] FpmbkvwGIMJHLYRZ3016-45-86 07:06:0037[facility] HermannPARATHYROID JODOXTM3695-47-78 07:06:001.33[facility] HermannPARATHYROID XQNXFTR3113-38-17 07:06:001.25[facility] HermannSPECIAL EIPQSZQPN9508-90-60 07:06:006.5[facility] HermannURINE AND XQAWA6820-74-86 07:06:00Clear (08/16/16 1:06 AM)[facility]annURINE AND PCDXN7901-89-16 07:06:001.016[facility]annURINE AND OJYUF7731-34-53 07:06:005.5[facility]annURINE AND OTUPZ4512-86-89 07:06:00Yellow *NA*(08/16/16 1:06 AM)[facility]annURINE AND SLWGV6920-01-50 07:06:002[facility]annURINE AND PNNMC8209-42-92 07:06:00Negative (08/16/16 1:06 AM)[facility]annUR[facility] AND OTLAR8311-17-97 07:06:001[facility]annURINE AND TTRFC0734-14-04 07:06:00Negative (08/16/16 1:06 AM)[facility]annUR[facility] AND XZJLY4292-17-49 07:06:00Negative *NA*(08/16/16 1:06 AM)[facility]annUR[facility] AND XSKCF0488-22-81 07:06:00Negative (08/16/16 1:06 AM)[facility]annUR[facility] AND ZULZJ0434-80-55 07:06:004[facility] HermannBACTERIAL - VNBMRMDB2349-27-18 07:06:00 Positive 1*ABN*(08/16/16 1:06 AM)[facility]annBLOOD BANK DFKFMOP8925-03-23 07:06:00Negative (08/16/16 1:06 AM)[facility] HermannCARDIAC EMODTVF5747-70-75 07:06:000.05[facility] HermannCARDIAC GQBURFE7232-62-85 07:06:0040[facility] CARDIAC OFXVUCO5289-72-29 07:06:00<0.010[facility] HermannCHEM BPYTL1810-32-71 07:06:001.0[facility] HermannCHEM WCOJH9286-72-00 07:06:003.2[facility] HermannCHEM VOLHS5945-08-81 07:06:09884Qmzjvywh HermannCHEM MFTPA7038-39-10 07:06:006.4 [facility] HermannCHEM VGVFN3514-30-79 07:06:006[facility] HermannCHEM PANEL 2016-08-16 07:06:000.4[facility] HermannCHEM BVQIQ9471-51-57 07:06:003.2[facility] HermannCHEM XXMQL7882-14-72 07:06:0079[facility] HermannCHEM VBCLX5567-73-21 07:06:0020[facility] FwcskscPLYBLS1132-01-84 07:06:0069[facility] HermannLIPIDS 2016-08-16 07:06:0050[facility] XihrkfmAODFPF8685-65-71 07:06:0033[facility] [place] HPCNTW5165-11-63 07:06:0026[facility] TfmzysuIODGGL2307-13-53 07:06:002.09[facility] CacycyoZDXJXC3066-35-72 07:06:0010[facility] FlaccvwEBAHIRCDC7467-89-72 07:06:0037 [facility]annPARATHYROID ITXNAJF9030-00-15 07:06:001.33[facility] PARATHYROID MEGFRZI6396-64-31 07:06:001.25[facility]annSPECIAL CHEMISTRY 2016-08-16 07:06:006.5[facility]annURINE AND EPHDY7117-88-49 07:06:00Clear (08/16/16 1:06 AM)[facility] EDYMS2725-71-38 07:06:001.016[facility] OHLFT9497-86-39 07:06:005.5[facility] STOOL 2016-08-16 07:06:00Yellow *NA*(08/16/16 1:06 AM)[facility] STOOL 2016-08-16 07:06:002[facility] CWJSR5406-53-99 07:06:00Negative (08/16/16 1:06 AM)[facility] FDXEP4546-31-54 07:06:001[facility] ECKKU3451-00-49 07:06:00Negative (08/16/16 1:06 AM)[facility] OHKNX7331-80-58 07:06:00Negative *NA*(08/16/16 1:06 AM)[facility] FNQGS8203-91-72 07:06:00Negative (08/16/16 1:06 AM)[facility] KHPTJ8312-73-58 07:06:004[facility] LxhfepyTZEBSTVVSA1479-54-01 14:35:00 Test Item Value Reference Range Interpretation Comments PT (test code = PT) 14.3 s 12.0-14.7 [facility] VkbjgjbCPZKQFMFBT6756-68-48 14:35:001.08[facility]annHEMATOLOGY 2015-10-12 14:35:00 Test Item Value Reference Range Interpretation Comments PTT (test code = PTT) 66.6 s 22.9-35.8 [facility] LpibxcaIDHYCNEUOV2895-78-87 14:35:00 Test Item Value Reference Range Interpretation Comments PT (test code = PT) 14.3 s 12.0-14.7 [facility] TemfdjlAFRGPBSQCF2557-14-15 14:35:001.08[facility]annHEMATOLOGY 2015-10-12 14:35:00 Test Item Value Reference Range Interpretation Comments PTT (test code = PTT) 66.6 s 22.9-35.8 [facility] IdiaabjRMLKKJIMJX2966-83-81 08:46:001.07[facility]annHEMATOLOGY 2015-10-12 08:46:00 Test Item Value Reference Range Interpretation Comments PT (test code = PT) 14.2 s 12.0-14.7 [facility] YpzursqVMWDUZBEBQ1480-46-94 08:46:00 Test Item Value Reference Range Interpretation Comments PTT (test code = PTT) 73.4 s 22.9-35.8 [facility] LhpikmaPVZBTLCFNJ4620-99-43 08:46:001.07[facility]annHEMATOLOGY 2015-10-12 08:46:00 Test Item Value Reference Range Interpretation Comments PT (test code = PT) 14.2 s 12.0-14.7 [facility] IhnisfiYUOZTUYWIP3954-52-55 08:46:00 Test Item Value Reference Range Interpretation Comments PTT (test code = PTT) 73.4 s 22.9-35.8 [facility] ThyazbhPFQSDIPOTN3013-68-05 01:03:00 Test Item Value Reference Range Interpretation Comments PTT (test code = PTT) 49.7 s 22.9-35.8 [facility] UifyqecTMDXBMILVH7027-35-19 01:03:00 Test Item Value Reference Range Interpretation Comments PTT (test code = PTT) 49.7 s 22.9-35.8 [facility]annCHEM MALLT7003-95-69 07:07:0079[facility]annCHEM PANEL 2015-10-11 07:07:36578Kzxdiysb HermannCHEM XSWWX9550-75-86 07:07:008.3[facility]annCHEM JVNFM0944-90-99 07:07:0024[facility]annCHEM SVUHY8327-74-10 07:07:0012[facility]annCHEM USXBZ7494-48-02 07:07:000.98[facility]annCHEM NHAHP0995-26-03 07:07:28186Ixenwpie HermannCHEM CKUIA4322-75-01 07:07:62075 [facility]annCHE[facility] JJGMC9916-74-73 07:07:004.2[facility]annCHEM PANEL 2015-10-11 07:07:0015.2[facility] MlxinzsJFVXQCKJNZ7330-32-86 07:07:009.9[facility] QhrrrapGZAKNIZLLG5250-72-67 07:07:003.40[facility] HvivufaYEMFZBBJHU8001-33-48 07:07:005.0[facility] XvvngobTVNOVDSYMN8037-58-39 07:07:007.9[facility] JZHNQJWVST2317-17-21 07:07:91822Npfhktrq HwdjeceJHQTLDDIGE5263-06-91 07:07:00 33.3[facility] YovivfrOKUJCVUCEU2159-46-51 07:07:00 Test Item Value Reference Range Interpretation Comments MCH (test code = MCH) 29.0 pg 27.0-31.0 [facility] ZvneqleDUAJDQAIMG3156-53-62 07:07:0087.0[facility]annHEMATOLOGY 2015-10-11 07:07:0029.6[facility] IxgpcpgHJIEZTYYZY7500-41-41 07:07:0014.8[facility]annCHEM SYPIG6045-29-97 07:07:0079[facility]annCHEM VYTOZ8863-40-65 07:07:82312Axlipksa HermannCHEM RVRPJ7719-39-16 07:07:008.3[facility]annCHEM AESHA3892-76-89 07:07:0024[facility]annCHEM VQMHW3100-59-74 07:07:0012 [facility]annCHEM SWHYS8276-86-67 07:07:000.98[facility]annCHEM PANEL 2015-10-11 07:07:14642Uursrhsc HermannCHEM IGKHH8339-70-19 07:07:84414Ntzrkjnz HermannCHEM XIUBU6206-16-96 07:07:004.2[facility]annCHEM RLVXH8704-84-62 07:07:0015.2[facility] McbxywqCNXEFHOXPF3434-45-06 07:07:009.9[facility] GIQYAXSXKJ6197-30-67 07:07:003.40[facility] UozvvvoNHDCMEOTTL9822-60-90 07:07:00 5.0[facility] OdwhnbqOOSPDBRQFM7881-70-07 07:07:007.9[facility] HermannHEMATOLOGY 2015-10-11 07:07:14304Hbwnwilq PjnqdizBXEVXLTFSA4781-15-63 07:07:0033.3[facility] PucfhilEKMFZXZMUI9510-54-95 07:07:00 Test Item Value Reference Range Interpretation Comments MCH (test code = MCH) 29.0 pg 27.0-31.0 [facility] NnbfbatNXPYSHIGQX2678-66-81 07:07:0087.0[facility]annHEMATOLOGY 2015-10-11 07:07:0029.6[facility] JkjodwcHOJOJSCSOE8890-30-75 07:07:0014.8[facility] PmgpuviEONWTEUFKL2444-78-83 01:59:000.1[facility] LlxejgjTAYHGNBVPF8970-74-69 01:59:001.4[facility] DlgidxwDZXWTJGHQO8436-94-60 01:59:007.6[facility] WUVQEFEKGV2284-27-69 01:59:0073.6[facility] RtbbkbzRQIMMUDJTB0766-21-18 01:59:00 16.7[facility] MtiethzMGQWADPASM3031-43-06 01:59:004.0[facility]annHEMATOLOGY 2015-10-11 01:59:000.4[facility] KebfwifGJEQPJYXQW1532-90-40 01:59:000.7[facility] YilatqaKMAVWOFMAX2858-37-67 01:59:000.9[facility] KcqapoeOEXHVCSTZY3997-83-69 01:59:0014.6[facility] BvtdnidBDCNRDUJIP9129-86-20 01:59:72362Wzrdvxxs Joe RIWCVSWNPL5734-22-67 01:59:008.3[facility] DhhpgpySPTKSYEZMW1841-82-07 01:59:00 87.2[facility] UfprslhXKBTRQCUTZ3417-37-83 01:59:0033.4[facility] HermannHEMATOLOGY 2015-10-11 01:59:00 Test Item Value Reference Range Interpretation Comments MCH (test code = MCH) 29.1 pg 27.0-31.0 [facility] MhexwxkWMNROFZCJH6690-20-19 01:59:0029.6[facility]annHEMATOLOGY 2015-10-11 01:59:009.9[facility] FrwokqrLSEYKAWEPI4362-23-10 01:59:005.4[facility] RqbkwjwKJJXDQPHUP9142-83-18 01:59:003.39[facility] LvzatnxHGQNAHKYIQ8831-24-69 01:59:000.1[facility] JbwfogfFWXMUAFMXW2766-52-25 01:59:001.4[facility] QKYBEJCJGC9897-92-79 01:59:007.6[facility] XqzsbqgIDKRKTUXDI5568-85-04 01:59:00 73.6[facility] VkxmqwpNSWJDGAKSR1919-88-75 01:59:0016.7[facility]annHEMATOLOGY 2015-10-11 01:59:004.0[facility] DlyvxuoAQMZAUFIRC3485-84-27 01:59:000.4[facility] ShgntxpXGNPAPTDYK4110-31-27 01:59:000.7[facility] OtetqneCEGCFXJHLD7307-32-55 01:59:000.9[facility] CzfhvnfKWEJLDNOLK2421-08-34 01:59:0014.6[facility] HSUEZIMFNX4638-87-14 01:59:61026Mwbggxbj YephtbbLJLKAAMPLV3284-01-75 01:59:008.3 [facility] FclmrmgGKLZZALEFY4096-10-44 01:59:0087.2[facility]annHEMATOLOGY 2015-10-11 01:59:0033.4[facility] HdvfvxuZKQTGFWFIS3864-75-87 01:59:00 Test Item Value Reference Range Interpretation Comments MCH (test code = MCH) 29.1 pg 27.0-31.0 [facility] XcvaowvDSMIKYOCQO7423-17-78 01:59:0029.6[facility]OLOGY 2015-10-11 01:59:009.9[facility] QxxqwvjLUFVKHDSUZ8721-46-30 01:59:005.4[facility] NfppbrvOKCHSNFSWC8148-29-87 01:59:003.39[facility]annCHEM KHTHF8983-88-42 06:53:003.3[facility]annCHEM DZBRN3907-80-60 06:53:001.8[facility] [place] GVYJNNCBJMQM7193-62-99 06:53:0012.7[facility] UykvqewBZSQXSOIPTBZ2997-11-70 06:53:008.2[facility] TrenlcqNJBTGVOBOKGX1507-13-10 06:53:79281Rom[place]ty [place] LRGOUSCPDFGJ4321-03-21 06:53:0027[facility] IjgxhdhTAGQJFVOIZEA3382-56-99 06:53:00 4.7[facility] IlczsuuOCJRHKSWASBV9937-42-09 06:53:53595Swuakujd Joe TAUNNUBHNUHG8735-44-61 06:53:0083[facility] OfnxnlgONHXGYHVLUCP8426-51-21 06:53:00 0.94[facility] IvqigjoJKVOWXIMKFAH3508-81-05 06:53:0012[facility] SBJLJXWYHLVG2808-14-45 06:53:62147Jvpnyhts QuuxohpXAUTTFPMLC3072-99-30 06:53:00 0.1[facility] BfmaavtTUOGNWPZYZ2699-08-76 06:53:000.2[facility]annHEMATOLOGY 2015-10-10 06:53:0019.0[facility] AkqjjrqQBCYVGCPZR9952-29-06 06:53:005.6[facility] MxzzdxvJRGZXCQJNH3577-24-80 06:53:0072.1[facility] IcechapCUNOYQNCSC7692-40-44 06:53:000.1[facility] EblxgqkVXCJJLPSCD5728-02-37 06:53:001.7[facility] OJCDPHBUZB4283-47-32 06:53:001.6[facility] NpyhneaMJOKFNRCUT0279-01-23 06:53:000.8 [facility] LxtrvrtDQGHJBPTAP1841-76-46 06:53:003.0[facility]annHEMATOLOGY 2015-10-10 06:53:0087.7[facility] KlxvrbyKDBPUFPAYM6553-20-19 06:53:00 Test Item Value Reference Range Interpretation Comments MCH (test code = MCH) 29.2 pg 27.0-31.0 [facility] ThrkpqyVNEPAUGNLW1876-44-14 06:53:0015.1[facility]annHEMATOLOGY 2015-10-10 06:53:64341Tvjebijp DyrvqnxDHNLCIHWBW1958-51-95 06:53:0033.3[facility] AkplfetGEECDXDIFO7283-99-41 06:53:004.2[facility] EwhqebjWBKWNXAYDF3397-63-42 06:53:003.35[facility] YxofqrrGCRQKHIUDF3710-32-39 06:53:009.8[facility] [place] AQUGPLPDIR5001-23-43 06:53:0029.4[facility] EumwxxoDZXKEMRFUD3505-83-73 06:53:00 8.3[facility]annCHEM VDLNB2883-53-24 06:53:003.3[facility]annCHEM PANEL 2015-10-10 06:53:001.8[facility] FsvojjcFWSMLBWBSXNO7036-48-39 06:53:0012.7 [facility] EzqnxuzNGGJCCRMUTUC4178-42-15 06:53:008.2[facility] HermannELECTROLYTES 2015-10-10 06:53:41945Bhufzkbh FjgrgoaEOTGYHSDTWMY0044-85-64 06:53:0027[facility] LtcfnayGEJEGHLBWOFB3361-82-53 06:53:004.7[facility] MxfmgkjAPZJOPIUBXYI6519-93-06 06:53:66171Tmydwdjj MhzseejEBJJQXAHODWG5454-40-48 06:53:0083[facility] [place] PWBNFXXBNDIT7678-19-89 06:53:000.94[facility] MrdxzprHBBUSVKFYZCR4030-07-20 06:53:0012[facility] LdonewwYMBBQJQPYJAK1619-22-06 06:53:23685Akjlrwdt Joe AUVLPGDULX7087-71-14 06:53:000.1[facility] MogaxmcUGZMTVLZIV7576-84-27 06:53:000.2 [facility] WzemdtsXAOSLKXLRB6119-99-04 06:53:0019.0[facility]annHEMATOLOGY 2015-10-10 06:53:005.6[facility] OjlspygPJWJFGAMON6085-78-41 06:53:0072.1[facility] UfvcplrKDEGXLOMSF0861-84-09 06:53:000.1[facility] NsolnuzHVSANXMEBT4654-53-99 06:53:001.7[facility] NemomphFWGIETERSQ2540-67-54 06:53:001.6[facility] RSQQDIPSDV5555-51-24 06:53:000.8[facility] YyevdnjSSZWWYZKYO6865-83-57 06:53:003.0 [facility] QxyklgbFFQHKAGHIC4184-56-18 06:53:0087.7[facility]annHEMATOLOGY 2015-10-10 06:53:00 Test Item Value Reference Range Interpretation Comments MCH (test code = MCH) 29.2 pg 27.0-31.0 [facility] VbapftbVOBAWLYGMD2917-89-43 06:53:0015.1[facility]annHEMATOLOGY 2015-10-10 06:53:76006Twjjmibu YaknbhyWPZGEDBYKD1166-31-36 06:53:0033.3[facility] AqmbffjJXBWQDYMZB6891-94-43 06:53:004.2[facility] GwdybtqCNUSZOSWWZ7811-73-07 06:53:003.35[facility] MvnffgzAXPDPPJRKZ9621-87-28 06:53:009.8[facility] [place] QCARBYKGTI8051-34-12 06:53:0029.4[facility] SfsgiobMIBHYSQPIE8041-92-58 06:53:00 8.3[facility] HermannCHEM HJPVR0341-50-67 22:21:0068[facility]annCHEM PANEL 2015-10-09 22:21:0012[facility] HermannCHEM NGFFY6380-69-79 22:21:50412Kxjhpiqa HermannCHEM HNYCE4052-47-92 22:21:001.11[facility]annCHEM IBXFQ3873-84-45 22:21:008.2[facility]annCHEM BLHOF2027-04-87 22:21:0026[facility]annCHEM SQYBO0748-64-57 22:21:39910Nzkpbgzz HermannCHEM PAVAE0492-07-82 22:21:004.6 [facility]annCHE[facility] TBSKM2321-77-75 22:21:13281Jorvkwmk HermannCHEM PANEL 2015-10-09 22:21:0014.6[facility] HuxvwobOHNBLQWIFP2677-38-71 22:21:000.3[facility] WghufuvVJQGYIDWWD8254-30-58 22:21:002.9[facility] UqhagjkGAMJFCNWJM4282-11-14 22:21:001.4[facility] XzhvjcfPHDQYHUQAE9038-63-17 22:21:005.5[facility] VUCALDPXNH2627-71-49 22:21:0027.4[facility] TkttngwLDUYRGQYGZ0447-55-83 22:21:00 8.3[facility] AnigeduLSZNAVPDRV8654-09-09 22:21:0057.9[facility]annHEMATOLOGY 2015-10-09 22:21:000.9[facility] MvpjeiyCVLOVVABPE6113-67-77 22:21:000.4[facility] OddiekxIZUHTIHPKX9346-25-25 22:21:001.11[facility] UsolgocDQJWIVMWHU8884-36-69 22:21:00 Test Item Value Reference Range Interpretation Comments PT (test code = PT) 14.6 s 12.0-14.7 [facility]BgxhqefSUZDMLARYH8995-93-71 22:21:00 Test Item Value Reference Range Interpretation Comments Split Point (test code = Split Point) 2.9 min [facility] HospitalHojmroaPLQPJLBBCY6018-66-74 22:21:00 Test Item Value Reference Range Interpretation Comments ACT (TEG) (test code = ACT (TEG)) 409 s 86-118 [facility] CenterAuirbzfRSGNSTNKYI2473-34-68 22:21:00 Test Item Value Reference Range Interpretation Comments R-time (test code = R-time) 3.8 min 0.4-0.7 [facility] CenterGntzwnvEKERCRIEHP9443-79-67 22:21:00Citrated Whole Blood (10/09/15 5:21 PM)[facility] CenterKdtxgerGQJGWHBGLT5264-84-39 22:21:000.4[facility]annHEMATOLOGY 2015-10-09 22:21:0010.6[facility] LfiltocWANDZYMSOH0828-82-15 22:21:00 Test Item Value Reference Range Interpretation Comments K-time (test code = K-time) 2.1 min 0.6-2.3 [facility] CenterAnrqkobFPWWTPKRHT2139-62-27 22:21:00 Test Item Value Reference Range Interpretation Comments Max Amp (test code = Max Amp) 68 mm 52-71 [facility] HospitalDhmvlffGMQJVXVTWM9994-13-55 22:21:00 Test Item Value Reference Range Interpretation Comments Angle (test code = Angle) 63 degrees 64-80 [facility] HospitalannCHEM GSTQB4345-68-06 22:21:0068[facility]annCHEM PANEL 2015-10-09 22:21:0012[facility] HermannCHEM AYRCX7477-85-73 22:21:77680Dkpbvrtt HermannCHEM OOWDC6274-46-60 22:21:001.11[facility]annCHEM ZLWTO7161-43-36 22:21:008.2[facility]annCHEM RZXLZ9861-47-11 22:21:0026[facility]annCHEM CLCDT0964-01-26 22:21:65865Cdtkkrcp HermannCHEM PNXAY0982-40-71 22:21:004.6 [facility]annCHE[facility] FXLIE9542-88-82 22:21:23899Zxcmjcgk HermannCHEM PANEL 2015-10-09 22:21:0014.6[facility] WiibaizIVABCQRSRR8743-02-10 22:21:000.3[facility] LduxrthPTIPILGMGA0699-19-19 22:21:002.9[facility] HpyprojWOYWFZZUYZ4255-94-38 22:21:001.4[facility] HttqldfSPHRMUESCD5533-83-97 22:21:005.5[facility] [place] RCRXGLKIJX4723-85-85 22:21:0027.4[facility] DmbmzbvXHBQGUBJHW4129-29-80 22:21:00 8.3[facility] ZhujgkvFMUUBPJWBR4507-50-78 22:21:0057.9[facility]annHEMATOLOGY 2015-10-09 22:21:000.9[facility] XqlgyemKSCMCFFPGP0370-78-55 22:21:000.4[facility] YbwjcarFAYADKJAKK8336-68-98 22:21:001.11[facility] BanmnvbSKRVFTYUMK2543-46-74 22:21:00 Test Item Value Reference Range Interpretation Comments PT (test code = PT) 14.6 s 12.0-14.7 [facility] HospitalYqdgppfWHRJSADFSJ1577-35-81 22:21:00 Test Item Value Reference Range Interpretation Comments Split Point (test code = Split Point) 2.9 min [facility] TsmeoriRUULOGUBIG7847-40-03 22:21:00 Test Item Value Reference Range Interpretation Comments ACT (TEG) (test code = ACT (TEG)) 409 s 86-118 [facility] HospitalKblukqfQHYASFHAMU5984-55-02 22:21:00 Test Item Value Reference Range Interpretation Comments R-time (test code = R-time) 3.8 min 0.4-0.7 [facility] HospitalDnwugvfZEMUWZVTMG3579-18-57 22:21:00Citrated Whole Blood (10/09/15 5:21 PM)[facility] RworghmPCSNAYOGUC5712-64-09 22:21:000.4[facility]annHEMATOLOGY 2015-10-09 22:21:0010.6[facility] WlzskleJAPVMTDUGW1545-59-13 22:21:00 Test Item Value Reference Range Interpretation Comments K-time (test code = K-time) 2.1 min 0.6-2.3 [facility] IzajkrnNPMLICENQP6746-61-49 22:21:00 Test Item Value Reference Range Interpretation Comments Max Amp (test code = Max Amp) 68 mm 52-71 [facility] NsspeckCIDCFPGNYJ6015-71-54 22:21:00 Test Item Value Reference Range Interpretation Comments Angle (test code = Angle) 63 degrees 64-80 [facility] HospitalVlmdvvdSMNWSKRWBI1755-84-90 14:26:00Negative *NA*(10/09/15 9:26 AM) [facility] HospitalSjlqahjOPFHGWGABM1230-98-47 14:26:00Negative *NA*(10/09/15 9:26 AM) [facility]annCHEM WTBZI9849-73-62 07:13:001.4[facility] HermannCHEM PANEL 2015-10-09 07:13:001.4[facility] QwnbcnnUMZOMBHUUP2065-27-42 07:08:000.0[facility] XtahxmsQHTJETBQPD9980-04-53 07:08:009.0[facility] GsymomjJEXIFQCKWJ1832-21-10 07:08:00 Test Item Value Reference Range Interpretation Comments K-time (test code = K-time) 1.6 min 0.6-2.3 [facility] HospitalGkttkexEQWQMEJLXP4943-71-53 07:08:00 Test Item Value Reference Range Interpretation Comments R-time (test code = R-time) 1.2 min 0.4-0.7 [facility] MyvtxneZWYUYWYDNE5773-70-50 07:08:00 Test Item Value Reference Range Interpretation Comments Split Point (test code = Split Point) 0.8 min [facility] BodammsKTDTVXMSDS4001-34-92 07:08:00 Test Item Value Reference Range Interpretation Comments Max Amp (test code = Max Amp) 64 mm 52-71 [facility] HospitalGkymsmjPJOTGHLGCK1064-37-76 07:08:00 Test Item Value Reference Range Interpretation Comments Angle (test code = Angle) 68 degrees 64-80 [facility]WvjfkxmGCOMDZHUZK3790-11-55 07:08:00 Test Item Value Reference Range Interpretation Comments ACT (TEG) (test code = ACT (TEG)) 167 s 86-118 [facility] HospitalPiqaskcZOMINMOHFB7920-69-15 07:08:00Citrated Whole Blood (10/09/15 2:08 AM)[facility] ChildrenQlmfympJONHFTFFRQ3763-91-24 07:08:000.0[facility]AT[facility] 2015-10-09 07:08:009.0[facility] SystemWakoyecPZRSJGXWPS8782-02-04 07:08:00 Test Item Value Reference Range Interpretation Comments K-time (test code = K-time) 1.6 min 0.6-2.3 [facility] ChildrenDvjbrfkMUPDUENVRP2156-60-27 07:08:00 Test Item Value Reference Range Interpretation Comments R-time (test code = R-time) 1.2 min 0.4-0.7 [facility] ChildrenUtypsbcRNDJJFUXMM3788-68-39 07:08:00 Test Item Value Reference Range Interpretation Comments Split Point (test code = Split Point) 0.8 min [facility] ChildrenEnzfzdoXNTLUXMPBV2343-98-11 07:08:00 Test Item Value Reference Range Interpretation Comments Max Amp (test code = Max Amp) 64 mm 52-71 [facility] HospitalYvwuhsvDEKCJQWHCN4992-90-60 07:08:00 Test Item Value Reference Range Interpretation Comments Angle (test code = Angle) 68 degrees 64-80 [facility] HospitalZxgscfrDGZPEWXYQE7247-06-40 07:08:00 Test Item Value Reference Range Interpretation Comments ACT (TEG) (test code = ACT (TEG)) 167 s 86-118 [facility] ChildrenJyofqfxEHTKSWEOYA8017-06-25 07:08:00Citrated Whole Blood (10/09/15 2:08 AM)[facility]
--- NOTE | 2020-08-21 12:11 | RAD REPORT ---
EXAM DESCRIPTION: USExtremity Venous Uni Ltd08/21/2020 11:41 am CLINICAL HISTORY: left leg pain and swelling. COMPARISON: 2016 FINDINGS: Left common femoral, superficial femoral, popliteal and posterior tibial veins are compre ssible and demonstrate augmentation. Doppler demonstrates good flow. IMPRESSION: No evidence of deep venous thrombosis involving the left lower extremity.
--- NOTE | 2020-08-21 13:25 | ER ---
Nurse's Notes [facility] Name: Valentín Senior Jr Age: 75 yrs Sex: Male : 1945 Arrival Date: 08/21/2020 Time: 09:20 Bed 12 Private MD: Diagnosis: Cellulitis of left lower limb Presentation: 08/21 10:58 Chief complaint: Patient states: Was here 2 days ago and Xray them. He told me to come ca1 back to the ER if there's bruise, or swelling on my L leg and get a sonogram. I fell [place] and hit that L leg. The swelling, redness, pain and tightness started 2 days ago. HX of blood clot on L leg. I take blood thinners. Coronavirus screen: Client denies travel out of the [place] in the last 14 days. At this time, the client does not indicate any symptoms associated with coronavirus-19. Ebola Screen: Patient negative for fever greater than or equal to 101.5 degrees Fahrenheit, and additional compatible Ebola Virus Disease symptoms Patient denies exposure to infectious person. Patient denies travel to an Ebola-affected area in the 21 days before illness onset. No symptoms or risks identified at this time. Initial Sepsis Screen: Does the patient meet any 2 criteria? No. Patient's initial sepsis screen is negative. Does the patient have a suspected source of infection? No. Patient's initial sepsis screen is negative. Risk Assessment: Do you want to hurt yourself or someone else? Patient reports no desire to harm self or others. Onset of symptoms was August 19, 2020. 10:58 Method Of Arrival: Wheelchair ca1 10:58 Acuity: ILANA 3 ca1 Historical: - Allergies: 11:03 Morphine; ca1 - PMHx: 11:03 Atrial Fib; CAD; CVA; Diabetes - IDDM; Hernia; Pacemaker; Pancreatitis; Pneumonia; ca1 - Immunization history:: Pneumococcal vaccine is up to date, Flu vaccine is up to date. - Social history:: Smoking status: Patient/guardian denies using tobacco, the patient reports quitting approximately 26 years ago. Assessment: 13:30 General: Appears in no apparent distress. Behavior is calm, cooperative. Pain: iw Complains of pain in right leg and left leg. Neuro: Level of Consciousness is awake, alert, obeys commands, Oriented to person, place, time. Derm: Skin is intact, Skin is dry. Vital Signs: 10:58 BP 103 / 70; Pulse 60; Resp 15 S; Temp 97.9(TE); Pulse Ox 99% on R/A; Weight 69.85 kg ca1 (R); Height 5 ft. 8 in. (172.72 cm) (R); Pain 4/10; 10:58 Body Mass Index 23.42 (69.85 kg, 172.72 cm) ca1 ED Course: 09:20 Patient arrived in ED. as 11:02 Triage completed. ca1 11:03 Arm band placed on right wrist. ca1 11:41 Extremity Venous Uni Ltd US In Process Unspecified. EDMS 13:14 Roberth Archuleta PA is PHCP. jmm 13:14 Leno Bethea MD is Attending Physician. [facility] 13:25 Lauren Vail, RN is Primary Nurse. iw 13:30 No provider procedures requiring assistance completed. Patient did not have IV access iw during this emergency room visit. Administered Medications: No medications were administered Outcome: 13:24 Discharge ordered by . m 13:30 Discharged to home via wheelchair, with family. iw 13:30 Condition: good 13:30 Discharge instructions given to patient, Instructed on discharge instructions, follow up and referral plans. medication usage, Demonstrated understanding of instructions, follow-up care, medications, Prescriptions given X 1. 13:31 Patient left the ED. iw Signatures: Dispatcher [employer] EDMS Roberth Archuleta PA PA jmm Martinez, Amelia as Lauren Vail, DEVON RN iw Janet Minor RN RN ca1
--- NOTE | 2020-08-21 13:25 | EDPHYS ---
Physician Documentation [facility] Name: Valentín Senior Jr Age: 75 yrs Sex: Male : 1945 Arrival Date: 08/21/2020 Time: 09:20 Bed 12 Private MD: ED Physician Leno Bethea HPI: 08/21 13:15 This 75 yrs old Male presents to ER via Wheelchair with complaints of Leg jmm Swelling. 13:15 The patient presents with pain. Onset: The symptoms/episode began/occurred acutely, 1 jmm month(s) ago. Modifying factors: The symptoms are alleviated by nothing. the symptoms are aggravated by nothing. Associated signs and symptoms: Pertinent positives: swelling. This is a 75 year old male with a history of DM, CAD that presents to the ED with complaints of left lower leg swelling and bruising. Evaluated 2 days ago with negative xray. Injury initially occurred 1 month ago. Patient complains of increased pain to the left calf. . Historical: - Allergies: 11:03 Morphine; ca1 - PMHx: 11:03 Atrial Fib; CAD; CVA; Diabetes - IDDM; Hernia; Pacemaker; Pancreatitis; Pneumonia; ca1 - Immunization history:: Pneumococcal vaccine is up to date, Flu vaccine is up to date. - Social history:: Smoking status: Patient/guardian denies using tobacco, the patient reports quitting approximately 26 years ago. ROS: 13:15 Constitutional: Negative for fever, chills, and weight loss, Cardiovascular: Negative jmm for chest pain, palpitations, and edema, Respiratory: Negative for shortness of breath, cough, wheezing, and pleuritic chest pain. 13:15 Skin: Positive for erythema. 13:15 All other systems are negative. Exam: 13:15 Constitutional: This is a well developed, well nourished patient who is awake, alert, jmm and in no acute distress. Head/Face: atraumatic. Eyes: EOMI, no conjunctival erythema appreciated ENT: Moist Mucus Membranes Neck: Trachea midline, Supple Chest/axilla: Normal chest wall appearance and motion. Cardiovascular: Regular rate and rhythm. No edema appreciated Respiratory: Normal respirations, no respiratory distress appreciated Abdomen/GI: Non distended, soft Back: Normal ROM 13:15 Skin: ecchymosis noted to the left lower leg, there is now some surrounding erythema. non circumferential, non tender to palpation. 13:15 Neuro: Orientation: is normal, Mentation: is normal, Memory: is normal. 13:15 Psych: Behavior/mood is pleasant, cooperative. Vital Signs: 10:58 BP 103 / 70; Pulse 60; Resp 15 S; Temp 97.9(TE); Pulse Ox 99% on R/A; Weight 69.85 kg ca1 (R); Height 5 ft. 8 in. (172.72 cm) (R); Pain 4/10; 10:58 Body Mass Index 23.42 (69.85 kg, 172.72 cm) ca1 MDM: 13:15 Data reviewed: vital signs, nurses notes. Counseling: I had a detailed discussion with patrick the patient and/or guardian regarding: the historical points, exam findings, and any diagnostic results supporting the discharge/admit diagnosis, radiology results, the need for outpatient follow up, to return to the emergency department if symptoms worsen or persist or if there are any questions or concerns that arise at home. ED course: US negative. Erythema has developed since last visit. No complaints of fever, chills. Will treat for cellulitis. Patient given strict return precautions. Patient understood and agrees with the plan of care. . 13:24 Patient medically screened. patrick 08/21 11:05 Order name: Extremity Venous Uni Ltd ; Complete Time: 13:14 ca1 Administered Medications: No medications were administered Disposition: 14:51 Co-signature as Attending Physician, Leno Bethea MD I agree with the assessment and kdr plan of care. Disposition: 08/21/20 13:24 Discharged to Home. Impression: Cellulitis of left lower limb. - Condition is Stable. - Discharge Instructions: Cellulitis, Adult. - Prescriptions for Bactrim DS 800- 160 mg Oral Tablet - take 1 tablet by ORAL route every 12 hours for 10 days; 20 tablet. - Medication Reconciliation Form, Thank You Letter, Antibiotic Education, Prescription Opioid Use form. - Follow up: Private Physician; When: 2 - 3 days; Reason: Recheck today's complaints, Continuance of care, Re-evaluation by your physician. Signatures: Dispatcher [employer] EDMS Leno Bethea MD MD kdr Mickail, Joel, PA PA Lauren Morley RN RN Acob, Janet, RN RN ca1 Corrections: (The following items were deleted from the chart) 13:31 13:24 08/21/2020 13:24 Discharged to Home. Impression: Cellulitis of left lower limb. iw Condition is Stable. Forms are Medication Reconciliation Form, Thank You Letter, Antibiotic Education, Prescription Opioid Use. Follow up: Private Physician; When: 2 - 3 days; Reason: Recheck today's complaints, Continuance of care, Re-evaluation by your physician. patrick
[2020-08-21 13:50] VITALS: BP 103/70; TEMP 97.9; O2SAT 99
== END 2020-08-21 13:31 | disposition home or self-care (01) ==
LOC: ER 09:17
DX: L03.116 Cellulitis of left lower limb (principal); I48.91 Unspecified atrial fibrillation; I25.10 Atherosclerotic heart disease of native coronary artery without angina pectoris; Z86.73 Personal history of transient ischemic attack (TIA), and cerebral infarction without residual deficits; E11.9 Type 2 diabetes mellitus without complications; Z79.4 Long term (current) use of insulin; Z95.0 Presence of cardiac pacemaker; Z87.891 Personal history of nicotine dependence
CPT/HCPCS: 93971; 99283

== ENCOUNTER 2021-05-05 23:05 | Emergency (ER) | payer OTHER ==
[2021-05-06] MEDS ORDERED: LACTULOSE 20 GM/30 ML UCUP ONE ×3 (01:06→03:12)
[2021-05-06] MEDS ORDERED: BISACODYL 10 MG RECTAL SUPP ONE ×2 (01:06→01:24)
[2021-05-06] MEDS ORDERED: NA CHLORIDE 0.9% 500 ML ONE (01:25)
[2021-05-06 01:44] LABS: Absolute Lymphocytes (CBC) 0.4 K/uL (0.7-4.9); Basophils % 0.2 % (0-1.3); Hematocrit 40.5 % (39.6-49.0); Lymphocytes % 2.7 % (15.3-44.8); MPV 7.9 fL (7.6-11.3); RBC Red Blood Cell Count 4.55 M/uL (4.33-5.43)
[2021-05-06 01:45] LABS: Protime INR 1.18
[2021-05-06 02:13] LABS: ALT/SGPT 36 U/L (12-78); AST/SGOT 29 U/L (15-37); Albumin 3.7 g/dL (3.4-5.0); Alkaline Phosphatase 100 U/L (45-117); BUN Blood Urea Nitrogen 17 mg/dL (7-18); Bicarbonate 28 mmol/L (21-32); Bilirubin Direct 0.3 mg/dL (0-0.2); Bilirubin Total 0.8 mg/dL (0.2-1.0); Glucose Level 187 mg/dL (74-106); NT PRO-BNP 1584 pg/mL (<125); Potassium 4.6 mmol/L (3.5-5.1); Protein, Total 8.4 g/dL (6.4-8.2); Sodium Level 136 mmol/L (136-145); Troponin (Emerg Dept Use Only) < 0.02 ng/mL (0.0-0.045)
[2021-05-06 02:14] LABS: Blood Morphology Comment NOT SEEN (NOT SEEN); Platelet Estimate ADEQ
[2021-05-06 02:20] LABS: Lipase < 10 U/L (73-393)
--- NOTE | 2021-05-06 04:14 | ER ---
Nurse's Notes [facility] Name: Valentín Senior Jr Age: 75 yrs Sex: Male : 1945 Arrival Date: 05/05/2021 Time: 23:11 Bed 8 Private MD: Diagnosis: Constipation-Impaction;Type 1 diabetes mellitus with hyperglycemia;Retention of urine, unspecified-PVR 650cc;COPD/ Chronic obstructive pulmonary disease, unspecified;Elevated white blood cell count;Bandemia Presentation: 05/05 23:32 Chief complaint: Patient states: he has not been able to urinate or defecate since last bb night and is having a lot of rectal pain. Coronavirus screen: At this time, the client does not indicate any symptoms associated with coronavirus-19. Ebola Screen: No symptoms or risks identified at this time. Initial Sepsis Screen: Does the patient meet any 2 criteria? No. Patient's initial sepsis screen is negative. Does the patient have a suspected source of infection? No. Patient's initial sepsis screen is negative. Risk Assessment: Do you want to hurt yourself or someone else? Patient reports no desire to harm self or others. Onset of symptoms was May 05, 2021. 23:32 Method Of Arrival: Wheelchair bb 23:32 Acuity: ILANA 3 bb Historical: - Allergies: 23:33 Morphine; bb - Home Meds: 23:33 Amiodarone Oral once daily [Active]; apixaban 5 mg Oral 1 tab 2 times per day [Active]; bb artificial tears(hypromellose) 0.4 % Opht drop 1 drop right for Dry Eye [Active]; atorvastatin Oral once daily [Active]; calcium 250 mg/ vitamin D 125 Tab [Active]; Creon 6,000-19,000 -30,000 unit Oral cpDR 1 cap 4 x day [Active]; docusate calcium 240 mg Oral cap 1 cap once daily [Active]; duloxetine Oral once daily [Active]; Eliquis 5 mg Oral tab 1 tab 2 times per day [Active]; finasteride 5 mg Oral tab 1 tab once daily [Active]; Furosemide Oral [Active]; hydroxyzine pamoate 50 mg Oral cap 1 cap at bedtime [Active]; insulin aspart subcutaneous daily [Active]; insulin detemir subcutaneous daily [Active]; insulin detemir 30 units SQ daily [Active]; Insulin Glargine insulin aspartate Flexpen Sub-Q 12 units before meals [Active]; latanoprost ,005 % OPH Soln [Active]; lidocaine 5% patch [Active]; loratadine 10 mg Oral tab 1 tab once daily [Active]; Lyrica Oral [Active]; metoprolol tartrate 25 mg Oral tab 0.5 tab 2 times per day [Active]; omeprazole 20 mg Oral cpDR 1 cap once daily [Active]; oxybutynin chloride 5 mg Oral tab 1 tab 3 times per day [Active]; pantoprazole 40 mg Oral TbEC 1 tab 2 times per day [Active]; simvastatin 10 mg Oral tab 1 tab once daily [Active]; tamsulosin 0.4 mg Oral cp24 1 cap once daily [Active]; tiotropium 18 mcg INHL CAP 30 daily [Active]; - PMHx: 23:33 Atrial Fib; CAD; CVA; Diabetes - IDDM; Hernia; Pacemaker; Pancreatitis; Pneumonia; bb - PSHx: 23:33 pacemaker; bb - Immunization history:: Adult Immunizations up to date, Client reports receiving the 2nd dose of the Covid vaccine. - Social history:: Smoking status: Patient/guardian denies using tobacco, but has a distant history of tobacco abuse. - Family history:: not pertinent. Screenin:45 Abuse screen: Denies threats or abuse. Denies injuries from another. Nutritional dc2 screening: No deficits noted. Tuberculosis screening: No symptoms or risk factors identified. Never had TB. Fall Risk Fall in past 12 months (25 points). Secondary diagnosis (15 points) No IV (0 pts). Ambulatory Aid- Crutches/Cane/Walker (15 pts). Gait- Weak (10 pts.). Mental Status- Oriented to own ability (0 pts). Total Damon Fall Scale indicates High Risk Score (45 or more points). Fall prevention measures have been instituted. Side Rails Up X 2 Frequent Obs/Assessments Occuring Family Present and informed to notify staff if the need to leave the bedside. 23:45 Exposure risk/Travel Screening: None identified. dc2 Assessment: 23:45 General: Appears in no apparent distress. uncomfortable, obese, Behavior is dc2 cooperative, anxious, Reports Constipation and unable to poo. States last normal BM yesterday ( Tuesday ). 23:45 Neuro: No deficits noted. Cardiovascular: Denies chest pain, shortness of breath. dc2 Respiratory: No deficits noted. 23:45 Pain: Complains of pain in co pain to rectal area. States is very painful since having dc2 a BM a while ago. 23:45 Neuro: No deficits noted. Cardiovascular: Denies chest pain, shortness of breath. dc2 Respiratory: No deficits noted. Breath sounds are clear bilaterally. Denies shortness of breath at rest, States does get SOB on exertion sometimes but is not new, states for " years". GI: Abdomen is round obese, Bowel sounds present X 4 quads. Abd is non tender Abdomen is tender to palpation in tender to lower abdomen and pelvic area Reports lower abdominal pain, constipation, cramping, diarrhea, Patient currently denies. : Reports inability to void, since this morning ( Tuesday ). Derm: Skin is intact, is fragile, is thin, Skin is pink, warm \\T\\ dry. normal. Musculoskeletal: Capillary refill < 3 seconds, is brisk, in bilateral toes. 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 05/06 04:30 Reassessment: 0430 Pt leave in wheelchair with cane and dentures at side. Assist into dc2 car which is driving home. Discharge review again with and both verbalize understanding. 05/07 02:30 Reassessment: Pt has some stool with round ball noted when diaper changed, pt co pain dc2 to rectal area. Vital Signs: 05/05 23:32 BP 138 / 71; Pulse 73; Resp 20 S; Temp 98.3(A); Pulse Ox 95% on R/A; Weight 64.41 kg bb (R); Height 5 ft. 8 in. (172.72 cm) (R); Pain 05/03; 05/06 00:00 BP 152 / 64; Pulse 73; Resp 20; Pulse Ox 92% ; Pain 5/10; dc2 01:00 BP 134 / 64; Pulse 71; Resp 20; Temp 97.5(O); Pulse Ox 94% ; Pain 5/10; dc2 02:00 BP 137 / 62; Pulse 73; Resp 20; Pulse Ox 94% ; Pain 0/10; dc2 03:00 BP 127 / 83; Pulse 73; Resp 20; Pulse Ox 97% ; Pain 5/10; dc2 04:00 BP 154 / 68; Pulse 72; Resp 18; Temp 97.0; Pulse Ox 99% ; Pain 5/10; dc2 05/05 23:32 Body Mass Index 21.59 (64.41 kg, 172.72 cm) bb Jefferson Coma Score: 02:00 Eye Response: spontaneous(4). Verbal Response: oriented(5). Motor Response: obeys dc2 commands(6). Total: 15. ED Course: 05/05 23:11 Patient arrived in ED. bp1 23:23 Kiki Patricio, RN is Primary Nurse. dc2 23:32 Abdoulaye Zuniga MD is Attending Physician. peter 23:33 Triage completed. bb 23:33 Arm band placed on Patient placed in an exam room, on a stretcher, on pulse oximetry. bb Family accompanied patient. 23:45 Patient has correct armband on for positive identification. Fall risk band placed. Bed dc2 in low position. Call light in reach. Side rails up X 1. secured entrance monitor on. Pulse ox on. NIBP on. Door closed. Lights dimmed. Warm blanket given. Pillow given. Verbal reassurance given. 05/06 00:15 Davis cath inserted, using sterile technique, 16 Fr., returned karo urine. Patient dc2 tolerated well. well with 850ml of urine upon insertion of catheter. Pt voices relief. 00:30 XRAY Chest (1 view) In Process Unspecified. EDMS 01:20 Initial lab(s) drawn, by wv, sent to lab. Inserted saline lock: 22 gauge in right bb antecubital area, using aseptic technique. Blood collected. 02:22 CT Abd/Pelvis - Without Cont (PO Contrast Only) In Process Unspecified. EDMS 03:20 Oxygen administration via nasal cannula \\T\\ 2L/min. dc2 03:27 Awaiting disposition. dc2 03:55 Davis cath balloon deflated. dc2 04:00 ED physician to see patient. dc2 04:11 Noe Andres MD is Referral Physician. peter 04:15 Gerber Shah MD is Referral Physician. peter 04:20 IV discontinued, intact, bleeding controlled, No redness/swelling at site. Pressure dc2 dressing applied. 04:20 No provider procedures requiring assistance completed. dc2 10/14 03:04 Magnesium Sent. dc2 03:04 NT PRO-BNP Sent. dc2 03:04 PT-INR Sent. dc2 03:04 Troponin (emerg Dept Use Only) Sent. dc2 Administered Medications: 05/06 00:30 Drug: Lactulose 30 grams Volume: 45 ml; Route: PO; dc2 02:37 Follow up: Response: No change in condition dc2 00:30 Drug: Dulcolax (bisacodyl) Suppository 10 mg Route: KS; dc2 02:37 Follow up: Response: No change in condition dc2 01:28 Drug: NS 0.9% 500 ml Route: IV; Rate: bolus; Site: right antecubital; mone 04:00 Follow up: IV Status: Completed infusion; IV Intake: 500ml dc2 02:47 Drug: Lactulose 30 grams Volume: 45 ml; Route: PO; dc2 04:00 Follow up: Response: No change in condition dc2 04:13 Not Given (Duplicate Order): LevOfloxacin 500 mg PO once [facility] 04:34 Drug: Augmentin (Amoxicillin-Clavulanate) 875 mg Route: PO; dc2 05/07 03:02 Follow up: Response: Medication administered at discharge. dc2 Intake: 05/06 04:00 IV: 500ml; Total: 500ml. dc2 Outcome: 04:13 Discharge ordered by . [facility] 04:30 Discharged to home via wheelchair, with family. dc2 04:30 Condition: stable 04:30 Discharge instructions given to Instructed on Demonstrated understanding of instructions, follow-up care, medications, Prescriptions given X 4. 05:00 Patient left the ED. dc2 Signatures: Dispatcher [employer] Abdoulaye Hartley MD MD cha Ballard, Brenda, RN RN Cristal Patel Denise, RN RN dc2
--- NOTE | 2021-05-06 04:14 | EDPHYS ---
Physician Documentation [facility] Name: Valentín Senior Jr Age: 75 yrs Sex: Male : 1945 Arrival Date: 05/05/2021 Time: 23:11 Bed 8 Private MD: RADHA Physician Abdoulaye Zuniga HPI: 05/06 03:10 This 75 yrs old Male presents to ER via Wheelchair with complaints of Urinary peter Retention, Abdominal Pain. 03:10 The patient presents with abdominal pain in the lower abdomen, abdominal distention in peter the upper abdomen, in the lower abdomen. Onset: The symptoms/episode began/occurred 1 day(s) ago. The patient presents with urinary symptoms, retention. Onset: The symptoms/episode began/occurred 1 day(s) ago. Modifying factors: The symptoms are alleviated by nothing, the symptoms are aggravated by movement, pressure, urinating. Associated signs and symptoms: Pertinent positives: abdominal pain, constipation, dysuria. The symptoms do not radiate. The symptoms are described as constant, crampy. Severity of pain: At its worst the pain was moderate in the emergency department the pain is unchanged. Historical: - Allergies: 05/05 23:33 Morphine; bb - Home Meds: 23:33 Amiodarone Oral once daily [Active]; apixaban 5 mg Oral 1 tab 2 times per day [Active]; bb artificial tears(hypromellose) 0.4 % Opht drop 1 drop right for Dry Eye [Active]; atorvastatin Oral once daily [Active]; calcium 250 mg/ vitamin D 125 Tab [Active]; Creon 6,000-19,000 -30,000 unit Oral cpDR 1 cap 4 x day [Active]; docusate calcium 240 mg Oral cap 1 cap once daily [Active]; duloxetine Oral once daily [Active]; Eliquis 5 mg Oral tab 1 tab 2 times per day [Active]; finasteride 5 mg Oral tab 1 tab once daily [Active]; Furosemide Oral [Active]; hydroxyzine pamoate 50 mg Oral cap 1 cap at bedtime [Active]; insulin aspart subcutaneous daily [Active]; insulin detemir subcutaneous daily [Active]; insulin detemir 30 units SQ daily [Active]; Insulin Glargine insulin aspartate Flexpen Sub-Q 12 units before meals [Active]; latanoprost ,005 % OPH Soln [Active]; lidocaine 5% patch [Active]; loratadine 10 mg Oral tab 1 tab once daily [Active]; Lyrica Oral [Active]; metoprolol tartrate 25 mg Oral tab 0.5 tab 2 times per day [Active]; omeprazole 20 mg Oral cpDR 1 cap once daily [Active]; oxybutynin chloride 5 mg Oral tab 1 tab 3 times per day [Active]; pantoprazole 40 mg Oral TbEC 1 tab 2 times per day [Active]; simvastatin 10 mg Oral tab 1 tab once daily [Active]; tamsulosin 0.4 mg Oral cp24 1 cap once daily [Active]; tiotropium 18 mcg INHL CAP 30 daily [Active]; - PMHx: 23:33 Atrial Fib; CAD; CVA; Diabetes - IDDM; Hernia; Pacemaker; Pancreatitis; Pneumonia; bb - PSHx: 23:33 pacemaker; bb - Immunization history:: Adult Immunizations up to date, Client reports receiving the 2nd dose of the Covid vaccine. - Social history:: Smoking status: Patient/guardian denies using tobacco, but has a distant history of tobacco abuse. - Family history:: not pertinent. ROS: 05/06 03:11 Constitutional: Negative for fever, chills, and weight loss, Eyes: Negative for injury, peter pain, redness, and discharge, ENT: Negative for injury, pain, and discharge, Neck: Negative for injury, pain, and swelling, Cardiovascular: Negative for chest pain, palpitations, and edema, Respiratory: Negative for shortness of breath, cough, wheezing, and pleuritic chest pain, Back: Negative for injury and pain, : Negative for injury, bleeding, discharge, and swelling, MS/Extremity: Negative for injury and deformity, Skin: Negative for injury, rash, and discoloration, Neuro: Negative for headache, weakness, numbness, tingling, and seizure, Psych: Negative for depression, anxiety, suicide ideation, homicidal ideation, and hallucinations, Allergy/Immunology: Negative for hives, rash, and allergies, Endocrine: Negative for neck swelling, polydipsia, polyuria, polyphagia, and marked weight changes, Hematologic/Lymphatic: Negative for swollen nodes, abnormal bleeding, and unusual bruising. Abdomen/GI: Positive for abdominal pain, constipation, abdominal cramps, abdominal distension. Exam: 03:11 Constitutional: This is a well developed, well nourished patient who is awake, alert, peter and in no acute distress. Head/Face: Normocephalic, atraumatic. Eyes: Pupils equal round and reactive to light, extra-ocular motions intact. Lids and lashes normal. Conjunctiva and sclera are non-icteric and not injected. Cornea within normal limits. Periorbital areas with no swelling, redness, or edema. ENT: Nares patent. No nasal discharge, no septal abnormalities noted. Tympanic membranes are normal and external auditory canals are clear. Oropharynx with no redness, swelling, or masses, exudates, or evidence of obstruction, uvula midline. Mucous membranes moist. Neck: Trachea midline, no thyromegaly or masses palpated, and no cervical lymphadenopathy. Supple, full range of motion without nuchal rigidity, or vertebral point tenderness. No Meningismus. Chest/axilla: Normal chest wall appearance and motion. Nontender with no deformity. No lesions are appreciated. Cardiovascular: Regular rate and rhythm with a normal S1 and S2. No gallops, murmurs, or rubs. Normal PMI, no JVD. No pulse deficits. Respiratory: Lungs have equal breath sounds bilaterally, clear to auscultation and percussion. No rales, rhonchi or wheezes noted. No increased work of breathing, no retractions or nasal flaring. Back: No spinal tenderness. No costovertebral tenderness. Full range of motion. Male : Normal genitalia with no discharge or lesions. Skin: Warm, dry with normal turgor. Normal color with no rashes, no lesions, and no evidence of cellulitis. MS/ Extremity: Pulses equal, no cyanosis. Neurovascular intact. Full, normal range of motion. Neuro: Awake and alert, GCS 15, oriented to person, place, time, and situation. Cranial nerves II-XII grossly intact. Motor strength 5/5 in all extremities. Sensory grossly intact. Cerebellar exam normal. Normal gait. Psych: Awake, alert, with orientation to person, place and time. Behavior, mood, and affect are within normal limits. 03:11 Abdomen/GI: Inspection: abdomen appears normal, Bowel sounds: normal, Palpation: abdomen is soft and non-tender, Rectal exam: the exam is chaperoned by the nurse. 03:14 ECG was reviewed by the Attending Physician. [facility] Vital Signs: 05/05 23:32 BP 138 / 71; Pulse 73; Resp 20 S; Temp 98.3(A); Pulse Ox 95% on R/A; Weight 64.41 kg bb (R); Height 5 ft. 8 in. (172.72 cm) (R); Pain 10/10; 05/06 00:00 BP 152 / 64; Pulse 73; Resp 20; Pulse Ox 92% ; Pain 5/10; dc2 01:00 BP 134 / 64; Pulse 71; Resp 20; Temp 97.5(O); Pulse Ox 94% ; Pain 5/10; dc2 02:00 BP 137 / 62; Pulse 73; Resp 20; Pulse Ox 94% ; Pain 0/10; dc2 03:00 BP 127 / 83; Pulse 73; Resp 20; Pulse Ox 97% ; Pain 5/10; dc2 04:00 BP 154 / 68; Pulse 72; Resp 18; Temp 97.0; Pulse Ox 99% ; Pain 5/10; dc2 05/05 23:32 Body Mass Index 21.59 (64.41 kg, 172.72 cm) bb Michael Coma Score: 02:00 Eye Response: spontaneous(4). Verbal Response: oriented(5). Motor Response: obeys dc2 commands(6). Total: 15. MDM: 05/05 23:32 Patient medically screened. [facility] 05/06 03:13 Data reviewed: vital signs, nurses notes, lab test result(s), EKG, radiologic studies, [facility] CT scan, plain films. Data interpreted: hygiene coordinator: not applicable for this patient encounter. rate is 73 beats/min, rhythm is regular, Pulse oximetry: on. Test interpretation: by ED physician or midlevel provider: ECG, plain radiologic studies. Counseling: I had a detailed discussion with the patient and/or guardian regarding: the historical points, exam findings, and any diagnostic results supporting the discharge/admit diagnosis, the presence of at least one elevated blood pressure reading (>120/80) during this emergency department visit, lab results, radiology results. Medical screen evaluation completed. EMTALA emergency medical condition absent. 05/05 23:31 Order name: Basic Metabolic Panel; Complete Time: 02:25 [facility] 05/05 23:31 Order name: CBC with Diff; Complete Time: 02:25 [facility] 05/05 23:31 Order name: Hepatic Function; Complete Time: 02:25 [facility] 05/05 23:31 Order name: Lipase; Complete Time: 02:25 [facility] 05/05 23:31 Order name: Urine Culture [facility] 05/05 23:42 Order name: Magnesium [facility] 05/05 23:42 Order name: NT PRO-BNP [facility] 05/05 23:42 Order name: PT-INR [facility] 05/05 23:42 Order name: Troponin (emerg Dept Use Only) [facility] 05/05 23:43 Order name: Magnesium; Complete Time: 02:25 EDMS 05/05 23:43 Order name: NT PRO-BNP; Complete Time: 02:25 [facility] 05/05 23:43 Order name: Protime (+INR); Complete Time: 02:25 EDMS 05/05 23:43 Order name: Troponin (Emerg Dept Use Only); Complete Time: 02:25 EDMS 05/06 01:52 Order name: Manual Differential; Complete Time: 02:25 [facility] 05/05 23:31 Order name: IV Saline Lock; Complete Time: 01:34 [facility] 05/05 23:31 Order name: Labs collected and sent; Complete Time: 01:34 [facility] 05/05 23:31 Order name: Urine Dipstick-Ancillary (obtain specimen); Complete Time: 01:17 [facility] 05/05 23:31 Order name: Davis; Complete Time: 01: [facility] 05/05 23:42 Order name: XRAY Chest (1 view) [facility] 05/05 23:42 Order name: EKG; Complete Time: 23:43 [facility] 05/05 23:42 Order name: Cardiac monitoring; Complete Time: 01:17 [facility] 05/05 23:42 Order name: EKG - Nurse/Tech; Complete Time: 03:05 [facility] 05/05 23:42 Order name: O2 Per Protocol; Complete Time: 01:17 [facility] 05/05 23:42 Order name: CT Abd/Pelvis - Without Cont (PO Contrast Only) [facility] 05/05 23:42 Order name: O2 Sat Monitoring; Complete Time: 01:17 [facility] EC:14 Rate is 72 beats/min. Rhythm is regular. QRS [place] is Normal. NE interval is normal. QRS peter interval is normal. QT interval is normal. No Q waves. T waves are Normal. No ST changes noted. Clinical impression: NSR w/ Non-specific ST/T Changes and No evidence of ischemia. Interpreted by me. Reviewed by me. Administered Medications: 00:30 Drug: Lactulose 30 grams Volume: 45 ml; Route: PO; dc2 02:37 Follow up: Response: No change in condition dc2 00:30 Drug: Dulcolax (bisacodyl) Suppository 10 mg Route: NE; dc2 02:37 Follow up: Response: No change in condition dc2 01:28 Drug: NS 0.9% 500 ml Route: IV; Rate: bolus; Site: right antecubital; bb 04:00 Follow up: IV Status: Completed infusion; IV Intake: 500ml dc2 02:47 Drug: Lactulose 30 grams Volume: 45 ml; Route: PO; dc2 04:00 Follow up: Response: No change in condition dc2 04:13 Not Given (Duplicate Order): LevOfloxacin 500 mg PO once peter 04:34 Drug: Augmentin (Amoxicillin-Clavulanate) 875 mg Route: PO; dc2 05/07 03:02 Follow up: Response: Medication administered at discharge. dc2 Disposition Summary: 05/06/21 04:13 Discharge Ordered Location: Home peter Problem: new peter Symptoms: have improved peter Condition: Stable peter Diagnosis - Constipation - Impaction peter - Type 1 diabetes mellitus with hyperglycemia peter - Retention of urine, unspecified - PVR 650cc peter - COPD/ Chronic obstructive pulmonary disease, unspecified peter - Elevated white blood cell count peter - Bandemia peter Followup: peter - With: Private Physician - When: 2 - 3 days - Reason: Recheck today's complaints, Continuance of care, Re-evaluation by your physician Followup: peter - With: Noe Andres MD - When: 2 - 3 days - Reason: Recheck today's complaints, Re-evaluation by your physician Followup: peter - With: Gerber Shah MD - When: 5 - 6 days - Reason: Recheck today's complaints, Re-evaluation by your physician Discharge Instructions: - Discharge Summary Sheet peter - Chronic Bronchitis, Adult peter - Chronic Obstructive Pulmonary Disease peter - Constipation, Adult peter - Type 1 Diabetes Mellitus, Diagnosis, Adult peter - Hyperglycemia peter - Constipation, Adult, [id number] peter - Chronic Obstructive Pulmonary Disease, [id number] peter - Fecal Impaction peter - Indwelling Urinary Catheter Insertion peter - Indwelling Urinary Catheter Insertion, Care After peter Forms: - Medication Reconciliation Form peter - Thank You Letter peter - Antibiotic Education peter - Prescription Opioid Use peter Prescriptions: - Augmentin 875-125 mg Oral Tablet - take 1 tablet by ORAL route every 12 hours for 10 days; 20 tablet; Refills: 0, peter Product Selection Permitted - Dulcolax (bisacodyl) 10 mg Rectal suppository - insert 1 suppository by RECTAL route every 12 hours; 14 suppository; Refills: peter 0, Product Selection Permitted - albuterol sulfate 90 mcg/actuation Inhalation HFA aerosol inhaler - inhale 2 puff by INHALATION route every 4-6 hours; 1 Pump; Refills: 0, Product peter Selection Permitted - Lactulose 10 gram/15 mL Oral Solution - take 30 milliliters by ORAL route every 12 hours; 300 milliliter; Refills: 0, peter Product Selection Permitted Signatures: Dispatcher [employer] Abdoulaye Hartley MD MD cha Ballard, Brenda RN RN bb Kiki Patricio RN RN dc2
[2021-05-06] MEDS ORDERED: levoFLOXacin 500 MG TAB ONE (04:36)
[2021-05-06] MEDS ORDERED: AMOX/K CLAV 875 MG TAB ONE (04:56)
[2021-05-06 05:15] VITALS: BP 154/68; TEMP 97; O2SAT 99
--- NOTE | 2021-05-06 07:24 | RAD REPORT ---
EXAM DESCRIPTION: RAD - Chest Single View - 05/06/2021 12:30 am CLINICAL HISTORY: COUGH COMPARISON: Chest Single View dated 08/16/2019; Chest Single View dated 08/11/2019; Chest Single View dated 08/07/2019; Chest Single View dated 08/06/2019; Abdomen Pelvis Wo Contrast dated 05/06/2021 FINDINGS: Lines: None. Lungs: Partial obscure a britton of the left lung base. Mild scattered reticulonodular opacities. Pleural: No significant pleural effusions or pneumothorax. Cardiac: Cardiomegaly. Pacemaker. Bones: No acute fractures. Other: Surgical clips in the epigastrium. IMPRESSION: Scattered reticulonodular airspace disease, more prominent at the left lung base, which may reflect pneumonia.
--- NOTE | 2021-05-06 10:56 | RAD REPORT ---
EXAM DESCRIPTION: CT - Abdomen Pelvis Wo Contrast - 05/06/2021 6:25 am CLINICAL HISTORY: 75 years, Male, ABDOMINAL DISTENTION COMPARISON: 08/05/2019. TECHNIQUE: Multiple transaxial tomograms of the abdomen and pelvis were performed from the lung base s to the symphysis pubis 5 mm slice thickness at 5 mm interval reconstruction, without administration of IV contrast. Only oral contrast was given. Multiplanar reformats in the sagittal and coronal plane were generated and reviewed. This exam was performed according to our departmental dose-optimization protocol, which includes auto mated exposure control, adjustment of the mA and/or kV according to patient size and/or use of iterat lisa reconstruction technique. FINDINGS: The lack of IV contrast limits evaluation of solid organs, subtle lesions cannot be exclud ed. The lung bases demonstrate interlobular septal thickening minimal bronchiectasis of the suggesting th e possibility of interstitial lung disease/chronic lung changes with bronchial thickening and mucous plugging bilateral posterior CP angles. There is a dual-lead pacemaker in place. There is a status po st left atrial appendage clamping device. Grossly the unopacified liver, spleen and adrenal glands demonstrate to be within normal limits, no s ignificant focal lesions were identified. High density material within the gallbladder correspondin g to cholelithiasis. No biliary duct dictation. The pancreas is atrophic. The kidneys demonstrate grossly unremarkable. There is no evidence for nephrolithiasis and/or hydro nephrosis. No focal masses were demonstrated. The opacified stomach, small bowel and large bowel demonstrate to be within normal limits. There is n o evidence for bowel dilatation/or free air. There is fecal residue throughout the large bowel corres ponding to constipation. Significant fecal residue and distention within the rectum correspond to imp action. Again there are multiple surgical clips within the left upper quadrant and left flank/left lo wer quadrant. The urinary bladder demonstrate Davis catheter in place. The prostate gland was not visualized. The a trevin demonstrate atherosclerotic disease extending into the aortic bifurcation. There is a IVC filter in place. There is no retroperitoneal lymphadenopathy. There is no evidence for ascites. The bon e windows demonstrate diffuse bony osteopenia. Degenerative disc disease at L2/L3 and L5/S1. Spondylo lysis with a grade 1 spondylolisthesis at L5/S1. IMPRESSION: Fecal residue throughout the large bowel corresponding to constipation. Significant feca l residue and and distention within the rectum correspond to impaction. Cholelithiasis. IVC filter in place. Spondylolysis with a grade 1 spondylolisthesis at L5/S1. Interstitial lung disease/chronic lung changes with bronchial thickening and mucous plugging bilatera l posterior CP angles an/or bronchopneumonia. Electronically signed by: Lalit Raphael MD 05/06/2021 2:49 AM CDT Due to temporary technical issues with the PACS/Fluency reporting system, reports are being signed by the in house radiologist without review as a courtesy to ensure prompt reporting. The interpreting r adiologist is fully responsible for the content of the report.
--- NOTE | 2021-05-06 16:37 | EKG ---
Test Date: 2021-05-06 Test Time: 02:57:59 Associate Curator: LINDA MEASUREMENT RESULTS: Intervals: Rate: 72 NE: 208 QRSD: 68 QT: 404 QTc: 442 [place]: P: 34 NE: 208 QRS: 57 T: 73 INTERPRETIVE STATEMENTS: Normal sinus rhythm Nonspecific ST and T wave abnormality Abnormal ECG Compared to ECG 08/05/2019 08:11:29 ST (T wave) deviation now present First degree AV block no longer present Electronically Signed On 05-06-21 16:35:36 CDT by Aj Castañeda
== END 2021-05-06 05:00 | disposition home or self-care (01) ==
LOC: ER 23:05
DX: K56.41 Fecal impaction (principal); E10.65 Type 1 diabetes mellitus with hyperglycemia; R33.9 Retention of urine, unspecified; D72.825 Bandemia; I48.91 Unspecified atrial fibrillation; Z95.0 Presence of cardiac pacemaker; Z79.01 Long term (current) use of anticoagulants; Z88.5 Allergy status to narcotic agent
CPT/HCPCS: 96361; 93005; 87088; 85025; 87086; 80048; 36415; 83735; 85610; 80076; 84484; 83690; 83880; 74176; 71045; 51702; 96360; 99285; J7040

== ENCOUNTER 2021-07-24 16:47 | Emergency (ER) | payer OTHER ==
[~2021-07-24 16:47] MED LIST: DERMABOND SKIN ADHESIVE TOP ONE; HEPARIN 500 UNIT/5 ML SYR IV ONE
[2021-07-24] MEDS ORDERED: ALTEPLASE 2 MG/VIAL IV ONE (16:48)
--- OUTSIDE RECORDS SUMMARY | 2021-07-24 16:50 | XMS REPORT | Continuity of Care Document ---
:1945 Author Organization [facility] Address [address] [place] [address] Dr. Fajardo [address] [place] [id number] Care Team Providers Name Role Phone Unavailable Unavailable Unavailable Payers Payer Name Policy Type Policy Number Effective Date Expiration Date [facility] [id number] 2021 (MEDICARE 00:00:00 REPLACEMENT HMO) Problems This patient has no known problems. Allergies, Adverse Reactions, Alerts This patient has no known allergies or adverse reactions. Medications This patient has no known medications. Procedures This patient has no known procedures. Encounters Start End Encounter Admission Attending Care Care Encounter Source Date/Time Date/Time Type Type Clinicians Facility Department ID 2021-05-14 2021-05-14 Outpatient [facility] [id number] [facility] 08:02:00 08:02:00 1021 [facility] Results This patient has no known results.
[2021-07-24 17:50] LABS: Absolute Lymphocytes (CBC) 0.6 K/uL (0.7-4.9); Lymphocytes % 4.5 % (15.3-44.8); MPV 7.4 fL (7.6-11.3); RBC Red Blood Cell Count 4.01 M/uL (4.33-5.43)
[2021-07-24 17:52] LABS: Protime INR 1.37
[2021-07-24 18:00] LABS: Potassium 4.5 mmol/L (3.5-5.1)
--- NOTE | 2021-07-24 18:08 | RAD REPORT ---
EXAM DESCRIPTION: CT - Head C Spine Cap Wo Con - 07/24/2021 5:35 pm CLINICAL HISTORY: PAIN COMPARISON: Head C Spine Cap W Con dated 08/05/2019; Abdomen Pelvis Wo Contrast dated 05/06/2021 TECHNIQUE: Axial [address] head images were obtained. Axial [address] cervical spine images were obtain ed with sagittal and coronal reconstruction images reviewed. Axial 5 mm images of the chest, abdomen and pelvis were obtained. All CT scans are performed using dose optimization technique as appropriate and may include automated exposure control or mA/KV adjustment according to patient size. FINDINGS: No intracranial hemorrhage, mass or edema. No midline shift or abnormal fluid collection. A 6 centimeter sized area of encephalomalacia is present at the frontoparietal junction right cerebra l hemisphere from cortex too deep periventricular white matter. Patient has underlying atrophy and sc attered chronic ischemic changes. Right periorbital hematoma changes are present with small hematoma in the scalp anterolateral right frontal bone region. Arterial and physiologic calcifications are pre sent. Mastoid air cells and paranasal sinuses are clear. No skull fracture. Patient has pronounced l eft deviation of the nasal septum. Cervical bodies are normal in height and alignment.Patient is degenerative or congenital C5-6 partial fusion. Disc material is present.No fracture or acute bone finding.C6 -7 disc space narrowing and de generative endplate spurring changes are present.No prevertebral soft tissue thickening or paraspinal mass.Central canal detail is inherently limited on CT imaging.Advanced facet joint degenerative vasquez ges are present at C3-4 on the right and C4-5 on the right. Mild bony foraminal encroachment at C6-7 from uncovertebral joint hypertrophy. No pneumothorax or pulmonary contusion. Prominent left lower lobe bronchiectasis changes are present with volume loss. A few patchy nodular opacities are present in the posterior lower right lung field with partial low opacification of the dilated bronchi in the posterior gutter. A 2.5 centimeter pleur al abutting focal parenchymal density present in the anterior right middle lobe. This measure slightl y larger than April. The left lower lobe volume loss changes are slightly greater than seen previou sl. No mediastinal hematoma and the aorta and pulmonary arteries are unremarkable. No chest will mass or abnormal axillary finding. No displaced rib fracture or other significant bony finding. CT abdomen and pelvis show no injury to solid abdominal viscera. Multiple layering gallstones are pre sent in a normal size gallbladder. No acute gallbladder or biliary tree finding. No acute bowel findi ng seen. Moderate stool volume is present filling but not dilating the colon. An acute GI process is not seen. No free air, free fluid or abnormal stranding. No hernia, mass or bulky lymphadenopathy. S everal metallic densities are present in the left mid abdomen from prior surgery or prior injury. No urinary bladder acute finding. Dense arterial tree calcifications are present. Spinal degenerative changes are present including L5 pars interarticularis defects. No acute traumati c bone injury of the spine. IMPRESSION: No hemorrhage, edema or acute intracranial finding. 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 Anterolateral right frontal scalp small hematoma and right periorbital contusion changes. Cervical spine degenerative change as detailed. No acute finding. No pulmonary contusion or acute traumatic chest injury seen. Patient has left greater than right post erior gutter bronchiectasis with left lower lobe volume loss worse than seen on the April examinati on. Left lower lobe infectious process cannot be excluded and needs correlation with laboratory clini florin findings. Patient has a 2.5 cm pleural abutting focal soft tissue density in the anterior right middle lobe sli ghtly larger than May 06 imaging. This needs ongoing surveillance to assure this is not a mass le will. Repeat CT chest study in 3 months would be suggested. No traumatic or significant CT abdomen and pelvis finding.
[2021-07-24 19:31] LABS: Blood Morphology Comment NOT SEEN (NOT SEEN); Platelet Estimate ADEQ; White Blood Cell Scan OK (OK)
--- NOTE | 2021-07-24 19:34 | RAD REPORT ---
EXAM DESCRIPTION: RAD - Humerus Left - 07/24/2021 6:25 pm CLINICAL HISTORY: PAIN COMPARISON: Humerus Left dated 10/08/2015; Chest Single View dated 08/16/2019 FINDINGS: Two view left humerus examination shows underlying osteopenic change. There is no fracture or dislocation of the humeral head identifiable. Ununited fracture dislocation of the lateral clavic le at the AC joint is noted. Alignment and positioning of the fracture fragments matches the remote c hest film. No suspicious soft tissue calcifications. Pacemaker overlies and partially obscures the sc apula. IMPRESSION: No acute fracture and no dislocation seen. 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
--- NOTE | 2021-07-24 19:47 | RAD REPORT ---
EXAM DESCRIPTION: RAD - Forearm Left - 07/24/2021 6:25 pm CLINICAL HISTORY: PAIN, fall COMPARISON: July 2019 CT left elbow FINDINGS: Underlying osteopenic changes are present. Positioning is not optimal regarding the elbow joint in the proximal radius and ulna. An acute fracture is not confirmed. There is old fracture vasquez ge of the proximal ulna with bony bridging between the olecranon and shaft of the ulna. Patient had a fracture that was evaluated July 2019 in this is probably the chronic sequela. No large joint eff usion seen. A dislocation is not suspected. No foreign body or other soft tissue abnormality. IMPRESSION: No acute finding of the left forearm confirmed. Changes of the proximal radius and ulna are believed to be the sequela of the fracture seen July 2019.
[2021-07-24 21:43] LABS: ALT/SGPT 22 U/L (12-78); AST/SGOT 18 U/L (15-37); Albumin 2.2 g/dL (3.4-5.0); Alkaline Phosphatase 97 U/L (45-117); Bilirubin Direct 0.2 mg/dL (0-0.2); Bilirubin Total 0.4 mg/dL (0.2-1.0); NT PRO-BNP 1407 pg/mL (<125); Protein, Total 6.5 g/dL (6.4-8.2); Troponin (Emerg Dept Use Only) < 0.02 ng/mL (0.0-0.045)
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
--- NOTE | 2021-07-24 22:20 | ER ---
Nurse's Notes [facility] Name: Valentín Senior Jr Age: 76 yrs Sex: Male : 1945 Arrival Date: 07/24/2021 Time: 16:49 Bed 20 Private MD: Diagnosis: Fall on same level from slipping, tripping and stumbling without subsequent striking against object;Hypoglycemia, unspecified Presentation: 07/24 16:57 Chief complaint: Patient states: pt fell 2 days ago injured left arm. fell today at panda 1500 and injured neck. pt reported that he is on blood thinners denies loc. EMS states: [facility]. Care prior to arrival: stabilizer for left arm and c-collar for neck pain. Mechanism of Injury: Fall from standing position. Trauma event details: Injury occurred: at home. Injury occurred: July 24, 2021. 16:57 Acuity: ILANA 2 panda 16:57 Method Of Arrival: EMS: [facility] panda 17:10 Coronavirus screen: Vaccine status: Patient reports receiving the 2nd dose of the covid panda vaccine. Ebola Screen: Patient denies travel to an Ebola-affected area in the 21 days before illness onset. Initial Sepsis Screen: Does the patient meet any 2 criteria? RR > 20 per min. HR > 90 bpm. Does the patient have a suspected source of infection? No. Patient's initial sepsis screen is negative. Risk Assessment: Do you want to hurt yourself or someone else? Patient reports no desire to harm self or others. Onset of symptoms was July 24, 2021. Trauma Activation: Alert Physician: ED Physician; Name: ; Notified At: ; Arrived At: Physician: General Surgeon; Name: ; Notified At: ; Arrived At: Physician: Radiology; Name: ; Notified At: ; Arrived At: Physician: Respiratory; Name: ; Notified At: ; Arrived At: Physician: Lab; Name: ; Notified At: ; Arrived At: Historical: - Allergies: 17:03 Morphine; panda - Home Meds: 17:03 Amiodarone Oral once daily [Active]; apixaban 5 mg Oral 1 tab 2 times per day [Active]; panda artificial tears(hypromellose) 0.4 % Opht drop 1 drop right for Dry Eye [Active]; atorvastatin Oral once daily [Active]; calcium 250 mg/ vitamin D 125 Tab [Active]; Creon 6,000-19,000 -30,000 unit Oral cpDR 1 cap 4 x day [Active]; docusate calcium 50 mg oral cap [Active]; duloxetine Oral once daily [Active]; Eliquis 5 mg Oral tab 1 tab 2 times per day [Active]; finasteride 5 mg Oral tab 1 tab once daily [Active]; - Immunization history:: Adult Immunizations unknown. - Immunization history: Last tetanus immunization: - up to date. - Social history:: Smoking status: Patient denies any tobacco usage or history of. Screenin:08 Abuse screen: Denies threats or abuse. Denies injuries from another. Nutritional panda screening: No deficits noted. Tuberculosis screening: No symptoms or risk factors identified. Fall Risk Fall in past 12 months (25 points). IV access (20 points). Mental Status- Overestimates/Forgets Limitations (15 pts.). Primary Survey: 17:08 NO uncontrolled hemorrhage observed. A: Airway: patent. Breathing/Chest: Respiratory panda pattern: regular. Circulation: Pulses: palpable right radial artery and right carotid pulse. Disability Alert. Exposure/Environment: All clothing and personal items were removed. Forensic evidence collection is not deemed to be indicated at this time. Items placed in patient belonging bag. There is no evidence of uncontrolled external bleeding. No obvious injuries are noted at this time. A warming method has been applied: A warm blanket has been provided to the patient. 17:10 Reassessment Breathing/Chest Respiratory pattern Regular. panda Assessment: 16:57 General: Appears in no apparent distress. Behavior is cooperative, anxious. Pain: panda Complains of pain in left arm and neck. Musculoskeletal: Reports weakness in left arm and neck pain in left arm and neck. Vital Signs: 17:06 BP 143 / 93; Pulse 63; Resp 18; Temp 97.8(O); Pulse Ox 98% on R/A; Weight 65.77 kg (R); panda 18:14 BP 152 / 68; Pulse 85; Resp 18; Pulse Ox 98% ; panda 22:47 BP 136 / 72; Pulse 82; Resp 17; Pulse Ox 100% on R/A; kd3 Michael Coma Score: 17:11 Eye Response: spontaneous(4). Verbal Response: confused(4). Motor Response: obeys panda commands(6). Total: 14. Trauma Score (Adult): 17:10 Eye Response: spontaneous(1); Verbal Response: confused(1); Motor Response: obeys panda commands(2); Systolic BP: > 89 mm Hg(4); Respiratory Rate: 10 to 29 per min(4); [place] Score: 14; Trauma Score: 12 ED Course: 16:49 Patient arrived in ED. jl7 17:00 Triage completed. panda 17:06 Splint/sling/ice applied as appropriate. Arm band placed on. padna 17:07 Shalini Jeffers FNP-C is PHCP. kb 17:07 Robert Guevara MD is Attending Physician. kb 17:08 Patient has correct armband on for positive identification. Bed in low position. panda 17:08 No provider procedures requiring assistance completed. Maintain EMS IV. Dressing panda intact. Gauge \\T\\ site: 20g rac. 17:20 Basic Metabolic Panel Sent. panda 17:20 Protime (+inr) Sent. panda 17:20 Ptt, Activated Sent. panda 17:20 CBC with Diff Sent. panda 17:32 Mellisa Alvarez, RN is Primary Nurse. jl7 17:35 CT Traumagram (Head C Spine CAP wo con) In Process Unspecified. EDMS 18:15 Patient maintains SpO2 saturation greater than 95% on room air. panda 18:15 Thermoregulation: warm blanket given to patient. panda 18:25 Humerus Left XRAY In Process Unspecified. EDMS 18:25 Forearm Left XRAY In Process Unspecified. EDMS 21:56 COVID-19 SARS RT PCR (Document "Date of Onset" if Symptomatic) Sent. kd3 22:48 IV discontinued, intact, bleeding controlled, No redness/swelling at site. Pressure kd3 dressing applied. Administered Medications: No medications were administered Point of Care Testing: Blood Glucose: 20:17 Blood Glucose: 62 mg/dL; kd3 Ranges: Intake: 17:11 PO: 0ml; Total: 0ml. panda Outcome: 17:11 Patient's length of stay was not longer than 2 hours. panda 22:20 Discharge ordered by . kb 22:47 Discharged to home via wheelchair. kd3 22:47 Condition: stable 22:47 Discharge instructions given to patient, Instructed on discharge instructions, follow up and referral plans. Demonstrated understanding of instructions, follow-up care. 22:48 Patient left the ED. kd3 Signatures: Dispatcher [employer] EDShalini Recinos, RENY LAWSON-Cesar Cruz RN RN jl7 Michelle Colorado RN RN kd3 Yusra-StagerMellisa RN RN panda Corrections: (The following items were deleted from the chart) 17:05 17:03 PMHx: Hernia; panda panda 17:05 17:03 PMHx: CVA; panda panda 17:05 17:03 PMHx: CAD; panda panda 17:05 17:03 PMHx: Diabetes - IDDM; panda panda 17:05 17:03 PMHx: Pancreatitis; panda panda 17:05 17:03 PMHx: Atrial Fib; panda panda 17:05 17:03 PMHx: Pneumonia; panda panda 17:05 17:03 PMHx: Pacemaker; panda panda 17:05 17:03 PSHx: pacemaker; panda panda
[2021-07-24 22:53] VITALS: TEMP 97.8
[2021-07-24 22:55] VITALS: BP 136/72; O2SAT 100
== END 2021-07-24 22:48 | disposition home or self-care (01) ==
LOC: ER 16:47
DX: E16.2 Hypoglycemia, unspecified (principal); M79.602 Pain in left arm; W18.39XA Other fall on same level, initial encounter; Y92.009 Unspecified place in unspecified non-institutional (private) residence as the place of occurrence of the external cause; Z20.822 Contact with and (suspected) exposure to COVID-19
CPT/HCPCS: 93005; 85025; 80048; 36415; 83735; 85610; 82947 ×2; 80076; 85730; 84484; 83880; 70450; 71250; 72125; 73090; 73060; 99284; U0003; J2997; J1642

== ENCOUNTER 2022-12-03 15:14 | Inpatient (IN) | payer OTHER ==
[2022-12-03] MEDS ORDERED: METOPROLOL TARTRATE 5 MG/5 ML INJ IV ONE (15:41)
[2022-12-03 15:55] LABS: Absolute Lymphocytes (CBC) 1.6 K/uL (0.7-4.9); Hematocrit 33.5 % (39.6-49.0); Lymphocytes % 31.9 % (15.3-44.8); MCV 92.5 fL (80-100); MPV 7.8 fL (7.6-11.3); RBC Red Blood Cell Count 3.63 M/uL (4.33-5.43)
[2022-12-03 16:02] LABS: Protime INR 1.07
[2022-12-03 16:13] LABS: Albumin 2.7 g/dL (3.4-5.0); Bilirubin Direct 0.2 mg/dL (0-0.2); Bilirubin Indirect, Calculated 0.2 (0.2-0.8); Bilirubin Total 0.4 mg/dL (0.2-1.0); Potassium 4.3 mEq/L (3.5-5.1); Protein, Total 6.3 g/dL (6.4-8.2); Troponin High Sensitivity 10.3 pg/mL (<58.9)
--- NOTE | 2022-12-03 16:21 | RAD REPORT ---
EXAM DESCRIPTION: RAD - Chest Single View - 12/03/2022 4:12 pm CLINICAL HISTORY: Chest pain;Dyspnea Chest pain. COMPARISON: Chest Single View dated 05/05/2021; Chest Single View dated 08/16/2019; Chest Single View dated 08/11/2019; Chest Single View dated 08/07/2019 FINDINGS: Portable technique limits examination quality. Mild interstitial pulmonary edema is present. The heart does moderate size. Dual lead pacer device is present. IMPRESSION: Mild CHF.
--- OUTSIDE RECORDS SUMMARY | 2022-12-03 16:52 | XMS REPORT | Continuity of Care Document ---
:1945 Author Organization [facility] t Address [address] [facility]. [address] [place] [address] Care Team Providers Name Role Phone [facility] Primary Care Physician Unavailable [id number] Attending Clinician Unavailable JEANETTE FONSECA Attending Clinician Unavailable Zaida Matias NP Attending Clinician Jeanette Fonseca DO Attending Clinician Alda OSORIO, Royce Cowan Attending Clinician Unavailable Viktor Abernathy Attending Clinician Leland Esteves Attending Clinician [id number] Admitting Clinician Unavailable Viktor Abernathy Admitting Clinician Amber Araujo Admitting Clinician Payers Payer Name Policy Type Policy Number Effective Date Expiration Date S dorene [facility] [id number] [facility] [id number] 1998 00:00:00 [facility] [id number] 2021 (MEDICARE 00:00:00 REPLACEMENT HMO) Problems Condition Condition Condition Status Onset Resolution Last Treating Co mments Source Name Details Category Date Date Treatment Clinician Date Pneumonia Pneumonia Disease Active Uni vers due to due to -13 [place] organism organism 00 Medica l Branch Syncope Syncope Disease Active Univers 6-12 ity of 00:00: [place] 00 [facility] 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
Probl em added by Discern Expert. [facility] GIOVANNA Diagnosis Active 2016-08-16 Memoria BILLING GIOVANNA 08-16 00:40:00 l BILLING 00:00: Joe Active 00 08/16/2016 [facility] DYSRHYTHMI DYSRHYTHM Diagnosis Active 2016-08-24 Memoria IAS Active 08-16 21:58:00 l 00:00: Leoncio spann [address] LEFT LEFT Diagnosis Active 2015-10-09 Mem oria SUBAXILLAR SUBAXILLAR 10-07 03:39:00 l Y ARTERY Y ARTERY 00:00: Leoncio spann AND AND 00 BRACHIAL BRACHIAL ART ART Active 6 [facility] ARM FX ARM FX Diagnosis Active 2015-10-21 Me moria W/ARTERIAL W/ARTERIAL 10-07 22:01:00 l BLOOD IN BLOOD IN 00:00: Leoncio spann SUBCLAVIAN SUBCLAVIAN 00 /BR /BR Active 10/08/2015 [facility] DYSTHYMIC DYSTHYMIC Diagnosis Active 2016-08-24 Memoria DISORDER DISORDER 21:58:00 l Active Leoncio spann 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 [facility] Atrial Atrial Problem Active 2016-08-21 Kashif bello fibrillati fibrillati 03:50:59 l on on [place] (disorder) (disorder) Active Problem 08/21/2016 [facility] Diabetes Diabetes Problem Active 2016-08-21 Memoria mellitus mellitus 03:50:59 l (disorder) (disorder) He rmann Active Problem 08/21/2016 On insulin [facility] Allergies, Adverse Reactions, Alerts Allergy Allergy Status Severity Reaction(s) Onset Inactive Treating Comm ents Source Name Type Date Date Clinician MORPHINE DRUG Active Hallucinates Un rosalie INGREDI 01-03 ity of 00:00: [place] 00 [facility] Morphine Propensi Active Hallucinatio Univers ty to ns 12 ity of adverse 00:00: [place] reaction 00 [facility] morphine morphine Active Refugio Diaz Social History Social Habit Start Date Stop Date Quantity Comments Source History of Current smoker [place] of tobacco use [facility] Exposure to 2022-10-05 2022-10-15 Not sure [facility] SARS-CoV-2 00:00:00 16:45:00 [facility] (event) [place] Alcohol intake 2022-10-15 2022-10-15 Ex-drinker [facility] 00:00:00 00:00:00 (finding) [facility] Tobacco use and 2019-01-03 2019-01-03 Smokeless tobacco Un iversity of exposure 00:00:00 00:00:00 non-user [facility] Social History 2016-08-17 2016-08-17 [facility] Tricia tatiana 01:47:41 01:47:41 Sex [birth year] Universit y of 00:00:00 00:00:00 [facility] Smoking Status Start Date Stop Date Source Ex-smoker 2019-01-03 00:00:00 2019-01-03 00:00:00 Universi ty of [facility] Medications Ordered Filled Start Stop Current Ordering Indication Dosage Frequency Signature Comments Components Source Medication Medication Date Date Medication? Clinician (SIG) Name Name albuterol-i Yes [id number] 1{puff} Inhale 1 Univers pratropium 6-13 Puff 4 ity of 20-100 00:00: (four) [place] mcg/actuati 00 times Medical on inhaler daily. Branch sodium Yes [id number] 4mL Inhale 4 Un rosalie chloride 7% 6-13 mL daily. ity of nebulizer 00:00: [place] solution 00 Medical Branch budesonide- Yes [id number] 2{puff} Inhale 2 Univers formoterol 6-13 Puffs 2 ity of 80-4.5 00:00: (two) [place] mcg/actuati 00 times Medical on inhaler daily. Branch albuterol-i Yes [id number] 1{puff} Inhale 1 Univers pratropium 6-13 Puff 4 ity of 20-100 00:00: (four) [place] mcg/actuati 00 times Medical on inhaler daily. Branch sodium Yes [id number] 4mL Inhale 4 Un rosalie chloride 7% 6-13 mL daily. ity of nebulizer 00:00: [place] solution 00 Medical Branch budesonide- Yes [id number] 2{puff} Inhale 2 Univers formoterol 6-13 Puffs 2 ity of 80-4.5 00:00: (two) [place] mcg/actuati 00 times Medical on inhaler daily. Branch bacitracin- No Notes: Kashif bello polymyxin B 1-26 (Same As: l topical 15:00: Polysporin Herm annamaria 00 ) bacitracin- No Notes: Kashif bello polymyxin B 1-26 (Same As: l topical 15:00: Polysporin Herm annamaria 00 ) bacitracin- 2016-0 No Notes: Kashif bello polymyxin B 1-26 (Same As: l topical 15:00: Polysporin Herm annamaria 00 ) bacitracin- 2016-0 No Notes: Kashif bello polymyxin B 1-26 (Same As: l topical 15:00: Polysporin Herm annamaria 00 ) Neosporin 2016-0 No 1 appl, Memor ia 1-25 Route: l 21:07: TOP, [place] 00 Daily, Drug form: OINT, Start date: 08/18/16 15:07:00 [employer]UC[employer], Duration: 30 day, Stop date: 09/17/16 9:00:00 [employer]IL[employer]UCATION Neosporin 2016-0 No 1 appl, Memor ia 1-25 Route: l 21:07: TOP, [place] 00 Daily, Drug form: OINT, Start date: 08/18/16 15:07:00 [employer] CHILDHOOD EDUCATION, Duration: 30 day, Stop date: 09/17/16 9:00:00 [employer]IL[employer]UCATION Neosporin 2017-0 No 1 appl, Memor ia 1-25 Route: l 21:07: TOP, [place] 00 Daily, Drug form: OINT, Start date: 08/18/16 15:07:00 [employer] EARLY CHILDHOOD EDUCATION, Duration: 30 day, Stop date: 09/17/16 9:00:00 [employer] E[employer]LY CHILDHOOD EDUCATION Neosporin 2017-0 No 1 appl, Memor ia 1-25 Route: l 21:07: TOP, [place] Daily, Drug form: OINT, Start date: 08/18/16 15:07:00 [employer] CHILDHOOD EDUCATION, Duration: 30 day, Stop date: 09/17/16 9:00:00 [employer]UCATION apixaban 5 2017-0 Yes 5 mg = [...] Leoncio n 19 tab, 0 Refill(s) omeprazole 2017- Yes 40 mg = 1 Me moria [...] 02 # 180 tab, 0 Refill(s) Metformin 2016-0 Yes 500 mg = 1 Me moria [...] 02 # 180 tab, 0 Refill(s) Furosemide 2017 Yes 20 mg = 1 Me moria 20 MG Oral 1-25 tab, PO, l Tablet 18:09: Daily, # Joe 57 30 tab, 0 Refill(s) Furosemide 2017 Yes 20 mg = 1 Me moria 20 MG Oral 1-25 tab, PO, l Tablet 18:09: Daily, # Joe 57 30 tab, 0 Refill(s) Furosemide 2017 Yes 20 mg = 1 Me moria 20 MG Oral 1-25 tab, PO, l Tablet 18:09: Daily, # Joe 57 30 tab, 0 Refill(s) Furosemide 2017-0 Yes 20 mg = 1 Me moria 20 MG Oral 1-25 tab, PO, l Tablet 18:09: Daily, # Joe 57 30 tab, 0 Refill(s) finasteride 2017-0 Yes 5 mg = 1 Me moria 5 mg oral 1-25 tab, PO, l tablet 18:09: Daily, # Joe 51 30 tab, 0 Refill(s) finasteride 2017-0 Yes 5 mg = 1 Me moria 5 mg oral 1-25 tab, PO, l tablet 18:09: Daily, # Joe 51 30 tab, 0 Refill(s) finasteride 2017-0 Yes 5 mg = 1 Me moria 5 mg oral 1-25 tab, PO, l tablet 18:09: Daily, # [place] 51 30 tab, 0 Refill(s) finasteride 2017-0 Yes 5 mg = 1 Me moria 5 mg oral 1-25 tab, PO, l tablet 18:09: Daily, # [place] 51 30 tab, 0 Refill(s) DULoxetine 2017-0 [...] 54 30 cap, 0 capsule Refill(s) DULoxetine No 60 mg = 1 Me moria 60 mg oral 1-25 cap, PO, l delayed 18:07: Daily, # Leoncio n release 54 30 cap, 0 capsule Refill(s) DULoxetine 0 No 60 mg = 1 Me moria 60 mg oral 1-25 cap, PO, l delayed 18:07: Daily, # Leoncio n release 54 30 cap, 0 capsule Refill(s) DULoxetine 0 No 60 mg = 1 Me moria 60 mg oral 1-25 cap, PO, l delayed 18:07: Daily, # Leoncio n release 54 30 cap, 0 capsule Refill(s) finasteride No 5 mg = 1 Me moria 5 mg oral 1-25 tab, PO, l tablet 18:07: Daily, # Joe 50 30 tab, 0 Refill(s) finasteride No 5 mg = 1 Me moria 5 mg oral 1-25 tab, PO, l tablet 18:07: Daily, # [place] 50 30 tab, 0 Refill(s) finasteride No 5 mg = 1 Me moria 5 mg oral 1-25 tab, PO, l tablet 18:07: Daily, # [place] 50 30 tab, 0 Refill(s) finasteride No 5 mg = 1 Me moria 5 mg oral 1-25 tab, PO, l tablet 18:07: Daily, # Joe 50 30 tab, 0 Refill(s) Furosemide No 20 mg = 1 Me moria 20 MG Oral 1-25 tab, PO, l Tablet 18:07: Daily, # [place] 46 30 tab, 0 Refill(s) Furosemide No 20 mg = 1 Me moria 20 MG Oral 1-25 tab, PO, l Tablet 18:07: Daily, # [place] 46 30 tab, 0 Refill(s) Furosemide No 20 mg = 1 Me moria 20 MG Oral 1-25 tab, PO, l Tablet 18:07: Daily, # [place] 46 30 tab, 0 Refill(s) Furosemide No 20 mg = 1 Me moria 20 MG Oral 1-25 tab, PO, l Tablet 18:07: Daily, # [place] 46 30 tab, 0 Refill(s) Metformin No [...] PO, l oral tablet 18:07: Bedtime, # [place] 21 30 tab, 0 Refill(s) atorvastati Yes [...] PO, l oral tablet 18:07: Bedtime, # [place] 21 30 tab, 0 Refill(s) metoprolol Yes [...] # Joe 20 30 tab, 0 Refill(s) atorvastati No 40 mg = 1 M emoria n 40 mg 1-25 tab, PO, l oral tablet 18:05: Bedtime, # [place] 20 30 tab, 0 Refill(s) atorvastati No 40 mg = 1 M emoria n 40 mg 1-25 tab, PO, l oral tablet 18:05: Bedtime, # Joe 20 30 tab, 0 Refill(s) atorvastati No 40 mg = 1 M emoria n 40 mg 1-25 tab, PO, l oral tablet 18:05: Bedtime, # Joe 20 30 tab, 0 Refill(s) apixaban 5 No 5 mg = 1 Mem oria MG Oral 1-25 tab, PO, l Tablet 18:05: BID, # 60 Leoncio n [Eliquis] 15 tab, 0 Refill(s) apixaban 5 [id number] No 5 mg = 1 Mem oria MG Oral 1-25 tab, PO, l Tablet 18:05: BID, # 60 Leoncio n [Eliquis] 15 tab, 0 Refill(s) apixaban 5 2017 No 5 mg = 1 Mem oria MG Oral 1-25 tab, PO, l Tablet 18:05: BID, # 60 Leoncio n [Eliquis] 15 tab, 0 Refill(s) apixaban 5 [id number] No 5 mg = 1 Mem oria [...] Leoncio n 04 tab, 0 Refill(s) Ranitidine 0 No 150 mg = 1 M emoria [...] tab, PO, l Tablet 18:04: Daily, # [place] 48 30 tab, 0 Refill(s) Furosemide No [...] tab, PO, l tablet 18:04: Daily, # [place] 43 30 tab, 0 Refill(s) finasteride No 5 mg = 1 Me moria 5 mg oral 1-25 tab, PO, l tablet 18:04: Daily, # [place] 43 30 tab, 0 Refill(s) DULoxetine No [...] tab, PO, l tablet 17:48: Daily, # [place] 00 30 tab, 0 Refill(s) DULoxetine No 60 mg = 1 Me moria 60 mg oral 1-25 cap, PO, l delayed 17:48: Daily, # Leoncio n release 00 30 cap, 0 capsule Refill(s) metoprolol No 25 mg = 1 Me moria tartrate 25 1-25 tab, PO, l mg oral 17:48: BID, # 60 Mariah nn tablet 00 tab, 0 Refill(s) apixaban 5 No 5 mg = 1 Mem oria MG Oral 1-25 tab, PO, l Tablet 17:48: BID, # 60 Leoncio n [Eliquis] 00 tab, 0 Refill(s) omeprazole No 40 mg = 1 Me moria 40 mg oral 1-25 cap, PO, l delayed 17:48: Daily, # Leoncio n release 00 30 cap, 0 capsule Refill(s) tamsulosin No 0.4 mg = 1 M emoria 0.4 mg oral 1-25 cap, PO, l capsule 17:48: Daily, # Leoncio n 00 30 cap, 0 Refill(s) atorvastati No 40 mg = 1 M emoria n 40 mg 1-25 tab, PO, l oral tablet 17:48: Bedtime, # [place] 00 30 tab, 0 Refill(s) Ranitidine No 150 [...] tab, PO, l Tablet 17:48: Daily, # [place] 00 30 tab, 0 Refill(s) finasteride No 5 mg = 1 Me moria 5 mg oral 1-25 tab, PO, l tablet 17:48: Daily, # [place] 00 30 tab, 0 Refill(s) DULoxetine No [...] PO, l oral tablet 17:48: Bedtime, # [place] 00 30 tab, 0 Refill(s) omeprazole No 40 mg [...] tab, PO, l Tablet 17:48: Daily, # [place] 00 30 tab, 0 Refill(s) finasteride No 5 mg = 1 Me moria 5 mg oral 1-25 tab, PO, l tablet 17:48: Daily, # [place] 00 30 tab, 0 Refill(s) DULoxetine No [...] release 00 30 cap, 0 capsule Refill(s) apixaban 5 No 5 mg = 1 Mem oria MG Oral 1-25 tab, PO, l Tablet 17:48: BID, # 60 Leoncio n [Eliquis] 00 tab, 0 Refill(s) tamsulosin No 0.4 mg = 1 M emoria 0.4 mg oral 1-25 cap, PO, l capsule 17:48: Daily, # Leoncio n 00 30 cap, 0 Refill(s) atorvastati No 40 mg = 1 M emoria n 40 mg 1-25 tab, PO, l oral tablet 17:48: Bedtime, # Joe 00 30 tab, 0 Refill(s) Ranitidine No 150 [...] tab, PO, l tablet 17:48: Daily, # [place] 00 30 tab, 0 Refill(s) DULoxetine No 60 mg = 1 Me moria 60 mg oral 1-25 cap, PO, l delayed 17:48: Daily, # Leoncio n release 00 30 cap, 0 capsule Refill(s) metoprolol No 25 mg = 1 Me moria tartrate 25 1-25 tab, PO, l mg oral 17:48: BID, # 60 Mariah nn tablet 00 tab, 0 Refill(s) hydrOXYzine No 25 mg [...] 1-25 cap, PO, l 17:45: Q6H, PRN [place] 00 nausea, # 20 cap, 0 Refill(s) Furosemide No 20 mg = 1 Me moria 20 MG Oral 1-25 tab, PO, l Tablet 17:40: Daily, # [place] 00 30 tab, 0 Refill(s) finasteride No 5 mg = 1 Me moria 5 mg oral 1-25 tab, PO, l tablet 17:40: Daily, # [place] 00 30 tab, 0 Refill(s) omeprazole No [...] M emoria 1-25 0 l 17:40: Refill(s) [place] 00 metoprolol No 25 mg = 1 [...] Tablet 00 # 30 tab, 0 Refill(s) Furosemide No 20 mg = 1 Me moria 20 MG Oral 1-25 tab, PO, l Tablet 17:40: Daily, # [place] 00 30 tab, 0 Refill(s) Ranitidine No 150 mg = 1 M emoria 150 MG Oral 1-25 tab, PO, l Tablet 17:40: BID, # 60 Leoncio n 00 tab, 0 Refill(s) finasteride No 5 mg = 1 Me moria 5 mg oral 1-25 tab, PO, l tablet 17:40: Daily, # Joe 00 30 tab, 0 Refill(s) DULoxetine No 60 mg = 1 Me moria 60 mg oral 1-25 cap, PO, l delayed 17:40: Daily, # Leoncio n release 00 30 cap, 0 capsule Refill(s) omeprazole No 20 mg = 1 Me moria 20 mg oral 1-25 tab, PO, l enteric 17:40: BID, # 30 Mariah nn coated 00 tab, 0 tablet Refill(s) tamsulosin No 0.4 mg = 1 M emoria 0.4 mg oral 1-25 cap, PO, l capsule 17:40: Daily, # Leoncio n 00 30 cap, 0 Refill(s) simvastatin No 10 mg = 1 M emoria 10 mg oral 1-25 tab, PO, l tablet 17:40: Bedtime, # Mariah nn 00 30 tab, 0 Refill(s) Omeprazole No PO, Daily, M emoria 1-25 0 l 17:40: Refill(s) [place] 00 oxybutynin No 5 mg = 1 Mem oria 5 mg oral 1-25 tab, PO, l tablet 17:40: TID, PRN Joe 00 Other-See Comments, # 30 tab, 0 Refill(s) metoprolol No 25 mg = 1 Me moria tartrate 25 1-25 tab, PO, l mg oral 17:40: BID, # 180 Herm annamaria tablet 00 tab, 0 Refill(s) apixaban 5 No 5 mg = 1 Mem oria MG Oral 1-25 tab, PO, l Tablet 17:40: BID, 0 [place] [Eliquis] 00 Refill(s) Metformin No 500 mg [...] Other-See Comments, # 30 tab, 0 Refill(s) metoprolol No 25 mg [...] Tablet 00 # 30 tab, 0 Refill(s) Furosemide No 20 mg = 1 Me moria 20 MG Oral 1-25 tab, PO, l Tablet 17:40: Daily, # [place] 00 30 tab, 0 Refill(s) Ranitidine No 150 mg = 1 M emoria 150 MG Oral 1-25 tab, PO, l Tablet 17:40: BID, # 60 Leoncio n 00 tab, 0 Refill(s) finasteride No 5 mg = 1 Me moria 5 mg oral 1-25 tab, PO, l tablet 17:40: Daily, # [place] 00 30 tab, 0 Refill(s) DULoxetine No 60 mg = 1 Me moria 60 mg oral 1-25 cap, PO, l delayed 17:40: Daily, # Leoncio n release 00 30 cap, 0 capsule Refill(s) omeprazole No 20 mg = 1 Me moria 20 mg oral 1-25 tab, PO, l enteric 17:40: BID, # 30 Mariah nn coated 00 tab, 0 tablet Refill(s) simvastatin No 10 mg = 1 M emoria 10 mg oral 1-25 tab, PO, l tablet 17:40: Bedtime, # Mariah nn 00 30 tab, 0 Refill(s) tamsulosin No 0.4 mg = 1 M emoria 0.4 mg oral 1-25 cap, PO, l capsule 17:40: Daily, # Leoncio n 00 30 cap, 0 Refill(s) oxybutynin No 5 mg = 1 Mem oria 5 mg oral 1-25 tab, PO, l tablet 17:40: TID, PRN [place] 00 Other-See Comments, # 30 tab, 0 Refill(s) Omeprazole No PO, Daily, M emoria 1-25 0 l 17:40: Refill(s) [place] 00 metoprolol No 25 mg = 1 [...] nn 00 30 tab, 0 Refill(s) oxybutynin 2017-0 No 5 mg = 1 Mem oria 5 mg oral 1-25 tab, PO, l tablet 17:40: TID, PRN [place] 00 Other-See Comments, # 30 tab, 0 Refill(s) Furosemide 2017-0 No 20 mg = 1 Me moria 20 MG Oral 1-25 tab, PO, l Tablet 17:40: Daily, # [place] 00 30 tab, 0 Refill(s) finasteride 2017-0 No 5 mg = 1 Me moria 5 mg oral 1-25 tab, PO, l tablet 17:40: Daily, # [place] 00 30 tab, 0 Refill(s) omeprazole 2017-0 No 20 mg = 1 Me moria 20 mg oral 1-25 tab, PO, l enteric 17:40: BID, # 30 Mariah nn coated 00 tab, 0 tablet Refill(s) tamsulosin 2017-0 No 0.4 mg = 1 M emoria 0.4 mg oral 1-25 cap, PO, l capsule 17:40: Daily, # Leoncio n 00 30 cap, 0 Refill(s) Omeprazole 2017-0 No PO, Daily, M emoria 1-25 0 l 17:40: Refill(s) [place] 00 Sodium 2017-0 No 250 mL, Memoria Chloride 1-25 250 ml/hr, l 0.154 14:56: Infuse Joe MEQ/ML 00 Over: 1 Injectable hr, Route: Solution IV, 250, Drug form: INJ, ONCE, Priority: STAT, Dosing Weight 82 kg, Start date: 08/18/16 8:56:00 [employer] OF EARLY CHILDHOOD EDUCATION, Duration: 1 doses or times, Stop date: 08/18/16 8:56:00 [employer]LY CHILDHOOD EDUCATION Sodium 2017-0 No 250 mL, Memoria Chloride 1-25 250 ml/hr, l 0.154 14:56: Infuse Joe MEQ/ML 00 Over: 1 Injectable hr, Route: Solution IV, 250, Drug form: INJ, ONCE, Priority: STAT, Dosing Weight 82 kg, Start date: 08/18/16 8:56:00 DIRECT[employer] OF EARLY CHILDHOOD EDUCATION, Duration: 1 doses or times, Stop date: 08/18/16 8:56:00 [employer] E[employer]LY CHILDHOOD EDUCATION Sodium 2017-0 No 250 mL, Memoria Chloride 1-25 250 ml/hr, l 0.154 14:56: Infuse [place] MEQ/ML 00 Over: 1 Injectable hr, Route: Solution IV, 250, Drug form: INJ, ONCE, Priority: STAT, Dosing Weight 82 kg, Start date: 08/18/16 8:56:00 DIRECTOR OF EARLY CHILDHOOD EDUCATION, Duration: 1 doses or times, Stop date: 08/18/16 8:56:00 [employer] E[employer]LY CHILDHOOD EDUCATION Sodium 2017-0 No 250 mL, Memoria Chloride 1-25 250 ml/hr, l 0.154 14:56: Infuse [place] MEQ/ML 00 Over: 1 Injectable hr, Route: Solution IV, 250, Drug form: INJ, ONCE, Priority: STAT, Dosing Weight 82 kg, Start date: 08/18/16 8:56:00 [employer] OF EARLY CHILDHOOD EDUCATION, Duration: 1 doses or times, Stop date: 08/18/16 8:56:00 [employer] E[employer] CHILDHOOD EDUCATION Tylenol No Notes: Do Memor ia 1-25 not exceed l 14:52: 4 gm/day. [place] (Same as: Tylenol) Tylenol No Notes: Do Memor ia 1-25 not exceed l 14:52: 4 gm/day. Joe 00 (Same as: Tylenol) Tylenol No Notes: Do Memor ia 1-25 not exceed l 14:52: 4 gm/day. Joe 00 (Same as: Tylenol) Tylenol No Notes: Do Memor ia 1-25 not exceed l 14:52: 4 gm/day. Joe 00 (Same as: Tylenol) Magnesium No Notes: Memori a Oxide 1-25 (Same as: l 14:49: Mag-Ox Joe 00 400) Magnesium oxide 461ky=729k g elemental magnesium Dose=____m g magnesium oxide (___mg elemental magnesium) Magnesium No Notes: Memori a Oxide 1-25 (Same as: l 14:49: Mag-Ox [place] 400) Magnesium oxide 262kh=908b g elemental magnesium Dose=____m g magnesium oxide (___mg elemental magnesium) Magnesium No Notes: Memori a Oxide 1-25 (Same as: l 14:49: Mag-Ox [place] 00 400) Magnesium oxide 527cs=849e g elemental magnesium Dose=____m g magnesium oxide (___mg elemental magnesium) Magnesium No Notes: Memori a Oxide 1-25 (Same as: l 14:49: Mag-Ox [place] 00 400) Magnesium oxide 248cw=559u g elemental magnesium Dose=____m g magnesium oxide (___mg elemental magnesium) Metoprolol No Notes: Memor ia 1-25 (Same as: l 10:35: Lopressor) [place] Push over 2 minutes Metoprolol No Notes: Memor ia 1-25 (Same as: l 10:35: Lopressor) Joe Push over 2 minutes Metoprolol No Notes: Memor ia 1-25 (Same as: l 10:35: Lopressor) [place] Push over 2 minutes Metoprolol No Notes: Memor ia 1-25 (Same as: l 10:35: Lopressor) Joe Push over 2 minutes Robitussin No 30 mg, Memor ia CoughGels 1-25 Route: PO, l 06:00: Q6H, Joe 00 Dosing Weight 82, kg, Start date: 08/18/16 0:00:00 [employer] CHIL[employer]OOD EDUCATION, Duration: 30 day, Stop date: 09/16/16 18:00:00 [employer] E[employer] CHILDHOOD EDUCATION Robitussin 2017-0 No 30 mg, Memor ia CoughGels 1-25 Route: PO, l 06:00: Q6H, [place] 00 Dosing Weight 82, kg, Start date: 08/18/16 0:00:00 DIRECT[employer] OF EARLY CHILDHOOD EDUCATION, Duration: 30 day, Stop date: 09/16/16 18:00:00 [employer] EARLY CHILDHOOD EDUCATION Robitussin 2017-0 No 30 mg, Memor ia CoughGels 1-25 Route: PO, l 06:00: Q6H, [place] 00 Dosing Weight 82, kg, Start date: 08/18/16 0:00:00 DIRECT[employer] OF EARLY CHILDHOOD EDUCATION, Duration: 30 day, Stop date: 09/16/16 18:00:00 [employer] E[employer]LY CHILDHOOD EDUCATION Robitussin 2017-0 No 30 mg, Memor ia CoughGels 1-25 Route: PO, l 06:00: Q6H, [place] Dosing Weight 82, kg, Start date: 08/18/16 0:00:00 [employer] E[employer] CHILDHOOD EDUCATION, Duration: 30 day, Stop date: 09/16/16 18:00:00 [employer] CHILDHOOD EDUCATION Eliquis No Notes: Memoria 1-25 Same as: l 03:00: Eliquis Joe Eliquis No Notes: Memoria 1-25 Same as: l 03:00: Eliquis Joe Eliquis No Notes: Memoria 1-25 Same as: l 03:00: Eliquis Joe Eliquis No Notes: Memoria 1-25 Same as: l 03:00: Eliquis Joe benzocaine- No Notes: Kashif bello menthol 1-25 Cepacol l topical 01:29: lozenges Leoncio n 00 Dispense 1 box = 16 lozenges (Same As: Cepacol Lozenges) benzocaine- No Notes: Ksahif bello menthol 1-25 Cepacol l topical 01:29: [...] Memori a 0.833 MG/ML 1-25 (Same as: l :46: Duoneb) [place] Ipratropium 00 [place] 0.167 MG/ML Inhalant Solution [DuoNeb] Albuterol No Notes: Memori a 0.833 MG/ML 1-25 (Same as: l 00:46: Duoneb) Joe Ipratropium 00 [place] 0.167 MG/ML Inhalant Solution [DuoNeb] Albuterol No Notes: Memori a 0.833 MG/ML 1-25 (Same as: l / 00:46: Duoneb) [place] Ipratropium 00 [place] 0.167 MG/ML Inhalant Solution [DuoNeb] Albuterol No Notes: Memori a 0.833 MG/ML -25 (Same as: l / 00:46: Duoneb) [place] Ipratropium 00 [place] 0.167 MG/ML Inhalant Solution [DuoNeb] metoprolol No Notes: Memor ia tartrate 1-24 (Same as: l 22:00: Lopressor) Joe 00 12.5mg=1/4 X 50 mg tab. metoprolol No Notes: Memor ia tartrate 1-24 (Same as: l 22:00: Lopressor) Joe 00 12.5mg=1/4 X 50 mg tab. metoprolol No Notes: Memor ia tartrate 1-24 (Same as: l 22:00: Lopressor) Joe 00 12.5mg=1/4 X 50 mg tab. metoprolol No Notes: Memor ia tartrate 1-24 (Same as: l 22:00: Lopressor) Joe 00 12.5mg=1/4 X 50 mg tab. Metoprolol No Notes: [facility] 1-24 (Same as: l 15:58: Lopressor) Joe 00 Push over 2 minutes Metoprolol No Notes: [facility] 1-24 (Same as: l 15:58: Lopressor) [place] 00 Push over 2 minutes Metoprolol No Notes: [facility] ia 1-24 (Same as: l 15:58: Lopressor) [place] 00 Push over 2 minutes Metoprolol No Notes: [facility] ia 1-24 (Same as: l 15:58: Lopressor) [place] 00 Push over 2 minutes Acetaminoph No Notes: Max [facility]oria en 1-24 acetaminop l 14:55: hen = [place] 00 4000mg/day (4 gm/day). (Same as: Tylenol) Acetaminoph No Notes: Max Memoria en 1-24 acetaminop l 14:55: hen = [place] 00 4000mg/day (4 gm/day). (Same as: Tylenol) Acetaminoph No Notes: Max Memoria en -24 acetaminop l 14:55: hen = [place] 00 4000mg/day (4 gm/day). (Same as: Tylenol) Acetaminoph No Notes: Max Memoria en -24 acetaminop l 14:55: hen = [place] 00 4000mg/day (4 gm/day). (Same as: Tylenol) Magnesium No Notes: Memori a Oxide -24 (Same as: l 11:32: Mag-Ox Joe 00 400) Magnesium oxide 868of=429d g elemental magnesium Dose=____m g magnesium oxide (___mg elemental magnesium) Magnesium No Notes: Memori a Oxide 24 (Same as: l 11:32: Mag-Ox [place] 00 400) Magnesium oxide 194ya=603x g elemental magnesium Dose=____m g magnesium oxide (___mg elemental magnesium) Magnesium No Notes: [facility]ori a Oxide 24 (Same as: l 11:32: Mag-Ox [place] 00 400) Magnesium oxide 974ho=160p g elemental magnesium Dose=____m g magnesium oxide (___mg elemental magnesium) Magnesium No Notes: Memori a Oxide -24 (Same as: l 11:32: Mag-Ox [place] 00 400) Magnesium oxide 647ck=274y g elemental magnesium Dose=____m g magnesium oxide (___mg elemental magnesium) Tramadol No Notes: Not Mem oria 24 to exceed l 10:22: 400mg/day. Joe 00 (Same As: Ultram) Tramadol No Notes: Not Mem oria -24 to exceed l 10:22: 400mg/day. [place] 00 (Same As: Ultram) Tramadol 0 No Notes: Not Mem oria -24 to exceed l 10:22: 400mg/day. Joe 00 (Same As: Ultram) Tramadol No Notes: Not Mem oria -24 to exceed l 10:22: 400mg/day. [place] 00 (Same As: Ultram) atorvastati No Notes: Kashif bello n 24 (Same as: l 03:00: Lipitor) [place] atorvastati No Notes: Kashif bello n 1-24 (Same as: l 03:00: Lipitor) [place] atorvastati No Notes: Kashif bello n 1-24 (Same as: l 03:00: Lipitor) [place] atorvastati No Notes: Kashif bello n 1-24 (Same as: l 03:00: Lipitor) [place] insulin No Notes: Memoria detemir 1-23 Same as l 15:00: Levemir Do [place] 00 not hold insulin without contacting prescriber WASTE: F/P - Black; E - Municipal Trash Bin "single patient use only" Protonix No Notes: Memoria 1-23 Tablet l 15:00: should not [place] 00 be chewed or crushed. (Same as: Protonix) Insulin No 5 unit, Memoria Glargine 1-23 Route: l 100 UNT/ML 15:00: SUB-Q, Mariah nn Injectable 00 Daily, Solution Dosing Weight 82, kg, Start date: 08/16/16 9:00:00 DIRECTOR OF EARLY CHILDHOOD EDUCATION, Duration: 30 day, Stop date: 09/14/16 9:00:00 DIRECTOR OF EARLY CHILDHOOD EDUCATION Docusate No Notes: Memoria Sodium 50 1-23 (Same as l MG / 15:00: Senokot-S) [place] sennosides, 00 Equiv. to HALFWAY 8.6 MG Nicolasa-Colac Oral Tablet e. insulin No Notes: Memoria detemir 1-23 Same as l 15:00: Levemir Do [place] 00 not hold insulin without contacting prescriber WASTE: F/P - Black; E - [facility] Trash Bin "single patient use only" Protonix No Notes: Memoria 1-23 Tablet l 15:00: should not [place] 00 be chewed or crushed. (Same as: Protonix) Insulin 2017-0 No 5 unit, Memoria Glargine 1-23 Route: l 100 UNT/ML 15:00: SUB-Q, Mariah nn Injectable 00 Daily, Solution Dosing Weight 82, kg, Start date: 08/16/16 9:00:00 DIRECTOR OF EARLY CHILDHOOD EDUCATION, Duration: 30 day, Stop date: 09/14/16 9:00:00 DIRECTOR OF EARLY CHILDHOOD EDUCATION Docusate No Notes: Memoria Sodium 50 1-23 (Same as l MG / 15:00: Senokot-S) [place] sennosides, 00 Equiv. to HALFWAY 8.6 MG Nicolasa-Colac Oral Tablet e. insulin No Notes: Memoria detemir 1-23 Same as l 15:00: Levemir Do [place] 00 not hold insulin without contacting prescriber WASTE: F/P - Black; E - Municipal Trash Bin "single patient use only" Protonix No Notes: Memoria 1-23 Tablet l 15:00: should not [place] 00 be chewed or crushed. (Same as: Protonix) Insulin No 5 unit, Memoria Glargine 1-23 Route: l 100 UNT/ML 15:00: SUB-Q, Mariah nn Injectable 00 Daily, Solution Dosing Weight 82, kg, Start date: 08/16/16 9:00:00 DIRECTOR OF EARLY CHILDHOOD EDUCATION, Duration: 30 day, Stop date: 09/14/16 9:00:00 DIRECTOR OF EARLY CHILDHOOD EDUCATION Docusate No Notes: Memoria Sodium 50 1-23 (Same as l MG / 15:00: Senokot-S) Joe sennosides, 00 Equiv. to HALFWAY 8.6 MG Nicolasa-Colac Oral Tablet e. insulin No Notes: Memoria detemir 1-23 Same as l 15:00: Levemir Do [place] 00 not hold insulin without contacting prescriber WASTE: F/P - Black; E - [facility] Trash Bin "single patient use only" Protonix No Notes: Memoria 1-23 Tablet l 15:00: should not [place] 00 be chewed or crushed. (Same as: Protonix) Insulin 2016-0 No 5 unit, Memoria Glargine 1-23 Route: l 100 UNT/ML 15:00: SUB-Q, Mariah nn Injectable 00 Daily, Solution Dosing Weight 82, kg, Start date: 08/16/16 9:00:00 DIRECTOR OF EARLY CHILDHOOD EDUCATION, Duration: 30 day, Stop date: 09/14/16 9:00:00 DIRECTOR OF EARLY CHILDHOOD EDUCATION Docusate No Notes: Memoria Sodium 50 1-23 (Same as l MG / 15:00: Senokot-S) [place] sennosides, 00 Equiv. to HALFWAY 8.6 MG Nicolasa-Colac Oral Tablet e. Insulin, No Notes: Memoria Aspart, 08-16 Roll in l Human 10:31: palms of [place] 00 hands gently; Do not shake vigorously [...] Glucose Results, Start date: 08/16/16 4:31:00 DIRECTOR OF EARLY CHILDHOOD EDUCATION, Duration: 30 day, Stop date: 09/15/16 4:30:00 DIRECTOR OF EARLY CHILDHOOD EDUCATION Dextrose No 12.5 gm, Memor ia 50% Syringe 08-16 25 mL, l 10:31: Route: Joe 00 IVP, Drug Form: INJ, Dosing Weight 82, kg, PRN, PRN Blood Glucose Results, Start date: 08/16/16 4:31:00 DIRECTOR OF EARLY CHILDHOOD EDUCATION, Duration: 30 day, Stop date: 09/15/16 4:30:00 DIRECTOR OF EARLY CHILDHOOD EDUCATION heparin No 500 mL, Memoria additive 08-16 Rate: l 25,000 unit 10:31: 20.68 Mariah nn [14 00 ml/hr, unit/kg/hr] Infuse + Premix over: 24.2 Diluent hr, Route: Dextrose 5% IV, Dosing 500 mL Weight 73.84 kg, Total Volume: 500 mL, Start date: 08/16/16 4:31:00 DIRECTOR OF EARLY CHILDHOOD EDUCATION, Duration: 30 day, Stop date: 09/15/16 4:30:00 DIRECTOR OF EARLY CHILDHOOD EDUCATION Insulin, No Notes: Memoria Aspart, 08-16 Roll in l Human 10:31: palms of [place] 00 hands gently; Do not shake vigorously . (Same as: NovoLOG) "single patient use only" WASTE: F/P - Black; E - [facility] Trash Bin Stable for 28 days at room temperatur e. Expires in days from ____Date Glucagon 2017-0 No 1 mg, Memoria 1-23 Route: IM, l 10:31: Drug form: [place] 00 PDR/INJ, PRN, Dosing Weight 82, kg, PRN Blood Glucose Results, Start date: 08/16/16 4:31:00 DIRECTOR OF EARLY CHILDHOOD EDUCATION, Duration: 30 day, Stop date: 09/15/16 4:30:00 DIRECTOR OF EARLY CHILDHOOD EDUCATION Dextrose 2017-0 No 12.5 gm, Memor ia 50% Syringe 1- 25 mL, l 10:31: Route: [place] 00 IVP, Drug Form: INJ, Dosing Weight 82, kg, PRN, PRN Blood Glucose Results, Start date: 08/16/16 4:31:00 DIRECTOR OF EARLY CHILDHOOD EDUCATION, Duration: 30 day, Stop date: 09/15/16 4:30:00 DIRECTOR OF EARLY CHILDHOOD EDUCATION heparin 2017-0 No 500 mL, Memoria additive - Rate: l 25,000 unit 10:31: 20.68 Mariah nn [14 00 ml/hr, unit/kg/hr] Infuse + Premix over: 24.2 Diluent hr, Route: Dextrose 5% IV, Dosing 500 mL Weight 73.84 kg, Total Volume: 500 mL, Start date: 08/16/16 4:31:00 DIRECTOR OF EARLY CHILDHOOD EDUCATION, Duration: 30 day, Stop date: 09/15/16 4:30:00 DIRECTOR OF EARLY CHILDHOOD EDUCATION Insulin, 2016-0 No Notes: Memoria Aspart, 1- Roll in l Human 10:31: palms of [place] 00 hands gently; Do not shake vigorously . (Same as: NovoLOG) "single patient use only" WASTE: F/P - Black; E - Municipal Trash Bin Stable for 28 days at room temperatur e. Expires in days from ____Date Glucagon 2016-0 No 1 mg, Memoria 1-23 Route: IM, l 10:31: Drug form: [place] 00 PDR/INJ, PRN, Dosing Weight 82, kg, PRN Blood Glucose Results, Start date: 08/16/16 4:31:00 DIRECTOR OF EARLY CHILDHOOD EDUCATION, Duration: 30 day, Stop date: 09/15/16 4:30:00 DIRECTOR OF EARLY CHILDHOOD EDUCATION Dextrose 2017-0 No 12.5 gm, Memor ia 50% Syringe 1-23 25 mL, l 10:31: Route: Joe IVP, Drug Form: INJ, Dosing Weight 82, kg, PRN, PRN Blood Glucose Results, Start date: 08/16/16 4:31:00 DIRECTOR OF EARLY CHILDHOOD EDUCATION, Duration: 30 day, Stop date: 09/15/16 4:30:00 DIRECTOR OF EARLY CHILDHOOD EDUCATION heparin 2016-0 No 500 mL, Memoria additive 1- Rate: l 25,000 unit 10:31: 20.68 Mariah nn [14 00 ml/hr, unit/kg/hr] Infuse + Premix over: 24.2 Diluent hr, Route: Dextrose 5% IV, Dosing 500 mL Weight 73.84 kg, Total Volume: 500 mL, Start date: 08/16/16 4:31:00 DIRECTOR OF EARLY CHILDHOOD EDUCATION, Duration: 30 day, Stop date: 09/15/16 4:30:00 DIRECTOR OF EARLY CHILDHOOD EDUCATION Insulin, 2016-0 No Notes: Memoria Aspart, - Roll in l Human 10:31: palms of hands gently; Do not shake vigorously . (Same as: NovoLOG) "single patient use only" WASTE: F/P - Black; E - [employer] Trash Bin Stable for 28 days at room temperatur e. Expires in days from ____Date Glucagon 2016-0 No 1 mg, Memoria 1- Route: IM, l 10:31: Drug form: [place] 00 PDR/INJ, PRN, Dosing Weight 82, kg, PRN Blood Glucose Results, Start date: 08/16/16 4:31:00 DIRECTOR OF EARLY CHILDHOOD EDUCATION, Duration: 30 day, Stop date: 09/15/16 4:30:00 DIRECTOR OF EARLY CHILDHOOD EDUCATION Dextrose 2016-0 No 12.5 gm, Memor ia 50% Syringe 08-16 25 mL, l 10:31: Route: [place] 00 IVP, Drug Form: INJ, Dosing Weight 82, kg, PRN, PRN Blood Glucose Results, Start date: 08/16/16 4:31:00 DIRECTOR OF EARLY CHILDHOOD EDUCATION, Duration: 30 day, Stop date: 09/15/16 4:30:00 DIRECTOR OF EARLY CHILDHOOD EDUCATION heparin 2016-0 No 500 mL, Memoria additive - Rate: l 25,000 unit 10:31: 20.68 Mariah nn [14 00 ml/hr, unit/kg/hr] Infuse + Premix over: 24.2 Diluent hr, Route: Dextrose 5% IV, Dosing 500 mL Weight 73.84 kg, Total Volume: 500 mL, Start date: 08/16/16 4:31:00 DIRECTOR OF EARLY CHILDHOOD EDUCATION, Duration: 30 day, Stop date: 09/15/16 4:30:00 DIRECTOR OF EARLY CHILDHOOD EDUCATION Magnesium 2017-0 No Notes: Memori a Sulfate 08-16 WASTE: F/P l 09:19: - Sink; E [place] - Municipal Trash Bin Magnesium 2016-0 No Notes: Memori a Sulfate 08-16 WASTE: F/P l 09:19: - Sink; E [place] 00 - [facility] Trash Bin Magnesium 2016-0 No Notes: Memori a Sulfate 08-16 WASTE: F/P l 09:19: - Sink; E [place] - [facility] Trash Bin Magnesium 2016- No Notes: Memori a Sulfate 08-16 WASTE: F/P l 09:19: - Sink; E [place] - [facility] Trash Bin Magnesium 2016-0 No 2 gm, Memoria Sulfate 08-16 Route: l 09:18: IVPB, Drug [place] 00 form: INJ, ONCE, Dosing Weight 82, kg, Start date: 08/16/16 3:18:00 DIRECTOR OF EARLY CHILDHOOD EDUCATION, Duration: 2 hr, Stop date: 08/16/16 3:18:00 DIRECTOR OF EARLY CHILDHOOD EDUCATION Magnesium 2016-0 No 2 gm, Memoria Sulfate 08-16 Route: l 09:18: IVPB, Drug [place] 00 form: INJ, ONCE, Dosing Weight 82, kg, Start date: 08/16/16 3:18:00 DIRECTOR OF EARLY CHILDHOOD EDUCATION, Duration: 2 hr, Stop date: 08/16/16 3:18:00 DIRECTOR OF EARLY CHILDHOOD EDUCATION Magnesium 2016-0 No 2 gm, Memoria Sulfate 08-16 Route: l 09:18: IVPB, Drug [place] 00 form: INJ, ONCE, Dosing Weight 82, kg, Start date: 08/16/16 3:18:00 DIRECTOR OF EARLY CHILDHOOD EDUCATION, Duration: 2 hr, Stop date: 08/16/16 3:18:00 DIRECTOR OF EARLY CHILDHOOD EDUCATION Magnesium 2016-0 No 2 gm, Memoria Sulfate 08-16 Route: l 09:18: IVPB, Drug [place] 00 form: INJ, ONCE, Dosing Weight 82, kg, Start date: 08/16/16 3:18:00 DIRECTOR OF EARLY CHILDHOOD EDUCATION, Duration: 2 hr, Stop date: 08/16/16 3:18:00 DIRECTOR OF EARLY CHILDHOOD EDUCATION Norepinephr 0 No Notes: Not Memoria ine 1-23 for direct l 08:34: administra [place] 00 tion - DILUTE. Protect from light. (Same as:Levophe d). Administer by either central venous catheter or peripheral ly-inserte d central catheter (PICC) line. Norepinephr No Notes: Not Memoria ine 1-23 for direct l 08:34: administra [place] 00 tion - DILUTE. Protect from light. (Same as:Levophe d). Administer by either central venous catheter or peripheral ly-inserte d central catheter (PICC) line. Norepinephr No Notes: Not Memoria ine 1-23 for direct l 08:34: administra [place] 00 tion - DILUTE. Protect from light. (Same as:Levophe d). Administer by either central venous catheter or peripheral ly-inserte d central catheter (PICC) line. Norepinephr No Notes: Not Memoria ine 1-23 for direct l 08:34: administra [place] 00 tion - DILUTE. Protect from light. (Same as:Levophe d). Administer by either central venous catheter or peripheral ly-inserte d central catheter (PICC) line. Versed No Notes: Memoria 1- (Same as: l 07:49: Versed) [place] 00 MEDICATION WASTE Product Size: 2 mg Product Wasted: ___ mg Versed No Notes: Memoria - (Same as: l 07:49: Versed) [place] 00 MEDICATION WASTE Product Size: 2 mg Product Wasted: ___ mg Versed No Notes: Memoria - (Same as: l 07:49: Versed) [place] 00 MEDICATION WASTE Product Size: 2 mg Product Wasted: ___ mg Versed No Notes: Memoria - (Same as: l 07:49: Versed) [place] 00 MEDICATION WASTE Product Size: 2 mg Product Wasted: ___ mg Fentanyl No 1,000 Memoria 1-23 microgram, l 07:48: 20 mL, [place] 00 Rate: Titrate, Start Dose: 50 microgram/ hr, Titration: 25 microgram/ hour every 15 minutes, Goal(s): RASS -2, Max Dose: 300 microgram/ hr, Route: IV, Dosing Weight 82 kg, Total Volume: 20, Start date: 08/16/16 1:48:00 DIRECTOR OF EARLY CHILDHOOD EDUCATION, Durati... Fentanyl 2017-0 No 1,000 Memoria 1-23 microgram, l 07:48: 20 mL, [place] 00 Rate: Titrate, Start Dose: 50 microgram/ hr, Titration: 25 microgram/ hour every 15 minutes, Goal(s): RASS -2, Max Dose: 300 microgram/ hr, Route: IV, Dosing Weight 82 kg, Total Volume: 20, Start date: 08/16/16 1:48:00 DIRECTOR OF EARLY CHILDHOOD EDUCATION, Durati... Fentanyl 2017-0 No 1,000 Memoria 1-23 microgram, l 07:48: 20 mL, [place] 00 Rate: Titrate, Start Dose: 50 microgram/ hr, Titration: 25 microgram/ hour every 15 minutes, Goal(s): RASS -2, Max Dose: 300 microgram/ hr, Route: IV, Dosing Weight 82 kg, Total Volume: 20, Start date: 08/16/16 1:48:00 DIRECTOR OF EARLY CHILDHOOD EDUCATION, Durati... Fentanyl 2017-0 No 1,000 Memoria 1-23 microgram, l 07:48: 20 mL, [place] 00 Rate: Titrate, Start Dose: 50 microgram/ hr, Titration: 25 microgram/ hour every 15 minutes, Goal(s): RASS -2, Max Dose: 300 microgram/ hr, Route: IV, Dosing Weight 82 kg, Total Volume: 20, Start date: 08/16/16 1:48:00 DIRECTOR OF EARLY CHILDHOOD EDUCATION, Durati... tramadol 2016-0 Yes 50 mg = 1 Kashif bello hydrochlori 3-22 tab, PO, l de 50 MG 16:48: Q6H, PRN Mariah nn Oral Tablet 57 Pain Score 6-10, X 7 day, # 15 tab, 0 Refill(s) tramadol 2016-0 Yes 50 mg = 1 Kashif bello hydrochlori 3-22 tab, PO, l de 50 MG 16:48: Q6H, PRN Mariah nn Oral Tablet 57 Pain Score 6-10, X 7 day, # 15 tab, 0 Refill(s) tramadol 2016-0 Yes 50 mg = 1 Kashif bello [...] 7 day, # 15 tab, 0 Refill(s) Amylases Yes 1 cap, PO, Mem oria 28727 UNT / 3-22 BID, PRN l Endopeptida 15:13: snack, 0 [place] [id number] Refill(s) UNT / Lipase 6000 UNT Enteric Coated Capsule [Creon 6] docusate Yes 100 mg = 1 Mem oria sodium 100 3-22 cap, PO, l mg oral 15:13: BID, [place] capsule 00 AVAILABLE OVER THE COUNTER WITHOUT [...] insulin Yes 8 unit, Memoria detemir 100 22 SUB-Q, l units/mL 15:13: Daily, you Her cramer subcutaneou 00 can s solution increase your long-actin g insulin dose back to30 units you were taking prior if your sugars are more than 200 repeatedly . You did not require your home doses in the hospital., 0 Refill(s) senna 8.6 Yes 17.2 mg = Mem oria mg oral 22 2 tab, PO, l tablet 15:13: Bedtime, [place] 00 PRN Constipati on, AVAILABLE OVER THE COUNTER WITHOUT PRESCRIPTI ON, X 10 day, # 20 tab, 0 Refill(s) Amylases Yes 1 cap, PO, Mem oria 37895 UNT / 3-22 BID, PRN l Endopeptida 15:13: snack, 0 [place] [id number] 00 Refill(s) UNT / Lipase 6000 UNT [...] Yes 1 drp, Kashif bello 0.05 MG/ML 322 RIGHT EYE, l Ophthalmic 15:13: Bedtime, 0 H ermann Solution 00 Refill(s) acetaminoph Yes 1,000 mg = Memoria en 500 mg 3-22 2 tab, PO, l oral tablet 15:13: [...] 10 day, # 20 tab, 0 Refill(s) insulin Yes 8 unit, [...] 2 tab, PO, l tablet 15:13: Bedtime, [place] 00 PRN Constipati on, AVAILABLE OVER THE COUNTER WITHOUT PRESCRIPTI ON, X 10 day, # 20 tab, 0 Refill(s) Amylases Yes 1 cap, PO, Mem oria 35510 UNT / 3-22 BID, PRN l Endopeptida 15:13: snack, 0 [place] [id number] 00 Refill(s) UNT / Lipase 6000 UNT Enteric Coated Capsule [Creon 6] docusate Yes 100 mg = 1 Mem oria sodium 100 3-22 cap, PO, l mg oral 15:13: BID, [place] capsule 00 AVAILABLE OVER THE COUNTER WITHOUT PRESCRIPTI ON, # 60 cap, 0 Refill(s) oxybutynin Yes 5 mg = 1 Mem oria 5 mg oral 3-22 tab, PO, l tablet 15:13: TID, PRN [place] 00 Bladder Spasm, 0 Refill(s) tramadol No 50 mg = 1 Kashif bello hydrochlori 3-22 tab, PO, l de 50 MG 15:13: Q6H, PRN Mariah nn Oral Tablet 00 Pain Score 6-10, X 7 day, # 28 tab, 0 Refill(s) insulin Yes 8 unit, Memoria detemir 100 3-22 SUB-Q, l units/mL 15:13: Daily, [facility] s solution increase your long-actin g insulin dose back to30 units you were taking prior if your sugars are more than 200 repeatedly . You did not require your home doses in the hospital., 0 Refill(s) melatonin 3 Yes 3 mg, PO, M emoria mg oral 3-22 Bedtime, X l tablet 15:13: 30 day, # Leoncio n 00 30 tab, 0 Refill(s) senna 8.6 Yes 17.2 mg = Mem oria mg oral 3-22 2 tab, PO, l tablet 15:13: Bedtime, [place] 00 PRN Constipati on, AVAILABLE OVER THE COUNTER WITHOUT PRESCRIPTI ON, X 10 day, # 20 tab, 0 Refill(s) methocarbam Yes 750 mg = 1 Memoria ol 750 mg 3-22 tab, PO, l oral tablet 15:13: TID, X 14 H ermann 00 day, # 42 tab, 0 Refill(s) Amylases Yes 1 cap, PO, Mem oria 18911 UNT / 3-22 BID, PRN l Endopeptida 15:13: snack, 0 [place] [id number] 00 Refill(s) UNT / Lipase 6000 UNT Enteric Coated Capsule [Creon 6] Insulin, Yes 6 unit, Memori a Aspart, 10-13 SUB-Q, l Human 15:13: TID-Before Leoncio n 00 Meals, you can increase your insulin doses back to 12 units you were taking prior if your sugars are more than 200 repeatedly . You did not require your home doses in the hospital., 0 Refill(s) docusate Yes 100 mg = 1 Mem oria sodium 100 10-13 cap, PO, l mg oral 15:13: BID, [place] capsule 00 AVAILABLE OVER THE COUNTER WITHOUT PRESCRIPTI ON, # 60 cap, 0 Refill(s) latanoprost Yes 1 drp, Kashif bello 0.05 MG/ML 10-13 RIGHT EYE, l Ophthalmic 15:13: Bedtime, 0 H ermann Solution 00 Refill(s) oxybutynin Yes 5 mg = 1 Mem oria 5 mg oral -22 tab, PO, l tablet 15:13: TID, PRN [place] 00 Bladder Spasm, 0 Refill(s) tramadol No 50 mg = 1 Kashif bello hydrochlori -22 tab, PO, l de 50 MG 15:13: Q6H, PRN Mariah nn Oral Tablet 00 Pain Score 6-10, X 7 day, # 28 tab, 0 Refill(s) melatonin 3 Yes 3 mg, PO, M emoria mg oral 322 Bedtime, X l tablet 15:13: 30 day, # Leoncio n 00 30 tab, 0 Refill(s) acetaminoph Yes 1,000 mg = Memoria en 500 mg 22 2 tab, PO, l oral tablet 15:13: Q6H, not He rmann 00 to exceed 4000 mg/day, 0 Refill(s) methocarbam Yes 750 mg = [...] detemir 10-13 Same as l 14:00: [place] not hold insulin without contacting prescriber WASTE: F/P - Black; E - [facility] Trash Bin "single patient use only" insulin No Notes: Memoria detemir 10-13 Same as l 14:00: [place] Do not hold insulin without contacting prescriber WASTE: F/P - Black; E - [facility] Trash Bin "single patient use only" insulin No Notes: Memoria detemir - Same as l 14:00: [place] not hold insulin without contacting prescriber WASTE: F/P - Black; E - [facility] Trash Bin "single patient use only" insulin No Notes: Memoria detemir - Same as l 14:00: [place] Do not hold insulin without contacting prescriber WASTE: F/P - Black; E - [facility] Trash Bin "single patient use only" insulin No Notes: Memoria detemir - Same as l 14:39: Levemir Do [place] 00 not hold insulin without contacting prescriber WASTE: F/P - Black; E - [facility] Trash Bin "single patient use only" insulin No Notes: Memoria detemir 3-21 Same as l 14:39: Levemir Do [place] 00 not hold insulin without contacting prescriber WASTE: F/P - Black; E - [facility] Trash Bin "single patient use only" insulin No Notes: Memoria detemir 3-21 Same as l 14:39: Levemir Do [place] 00 not hold insulin without contacting prescriber WASTE: F/P - Black; E - [facility] Trash Bin "single patient use only" insulin No Notes: Memoria detemir 3-21 Same as l 14:39: [place] Do [place] 00 not hold insulin without contacting prescriber WASTE: F/P - Black; E - [facility] Trash Bin "single patient use only" Enoxaparin No Notes: Memor ia 3-21 (Same as: l 14:00: Lovenox) [place] Kenalog No Notes: Memoria 0.1% 3-21 (triamcino l topical 14:00: lone [place] cream 00 acetonide 0.1% 15 gm top CRM) (Same As: Kenalog) Enoxaparin No Notes: Memor ia 3-21 (Same as: l 14:00: Lovenox) Joe Kenalog No Notes: Memoria 0.1% 3-21 (triamcino l topical 14:00: lone [place] cream 00 acetonide 0.1% 15 gm top CRM) (Same As: Kenalog) Enoxaparin No Notes: Memor ia 3-21 (Same as: l 14:00: Lovenox) [place] Kenalog No Notes: Memoria 0.1% 3-21 (triamcino l topical 14:00: lone [place] cream 00 acetonide 0.1% 15 gm top CRM) (Same As: Kenalog) Enoxaparin No Notes: Memor ia 3-21 (Same as: l 14:00: Lovenox) Joe Kenalog No Notes: Memoria 0.1% 3-21 (triamcino l topical 14:00: lone [place] cream 00 acetonide 0.1% 15 gm top CRM) (Same As: Kenalog) Insulin, No Notes: Memoria Aspart, 3-20 Roll in l Human 16:30: palms of [place] 00 hands gently; Do not shake vigorously . (Same as: NovoLOG) "single patient use only" WASTE: F/P - Black; E - [employer] Trash Bin Stable for 28 days at room temperatur e. Expires in days from ____Date Insulin, No Notes: Memoria Aspart, 3-20 Roll in l Human 16:30: palms of [place] 00 hands gently; Do not shake vigorously [...] 3-20 Same as l 15:00: Levemir Do [place] 00 not hold insulin without contacting prescriber [...] 3-20 Same as l 15:00: Levemir Do [place] 00 not hold insulin without contacting prescriber [...] Roll in l Human 13:00: palms of [place] 00 hands gently; Do not shake vigorously . (Same as: NovoLOG) "single patient use only" WASTE: F/P - Black; E - [employer] Trash Bin Stable for 28 days at room temperatur e. Expires in days from ____Date Insulin, No Notes: Memoria Aspart, 3-20 Roll in l Human 13:00: palms of [place] 00 hands gently; Do not shake vigorously [...] bello 3-19 (Same as: l 14:00: Proscar) [place] 00 "Do Not Crush" Women of childbeari [...] Notes: Memoria 3-19 (Same l 14:00: as:Robaxin [place] 00 ) Flomax No Notes: Memoria 3-19 (Same As: l 14:00: Flomax) [place] 00 "Do Not Crush" pantoprazol 0 No Notes: Kashif bello e 3-19 Tablet l 14:00: should not [place] 00 be chewed or crushed. (Same as: Protonix) Finasteride No Notes: Kashif bello 3-19 (Same as: l 14:00: Proscar) [place] 00 "Do Not Crush" Women of childbeari ng age should not touch or handle broken tablets duloxetine 0 No Notes: Memor ia 3-19 (Same as: l 14:00: Cymbalta) [place] 00 (Do Not Crush) Aspirin 81 No Notes: Do Me moria MG Enteric 3-19 not crush l Coated 14:00: or chew. Joe Tablet 00 (Same As: Ecotrin) Robaxin No Notes: Memoria 3-19 (Same l 14:00: as:Robaxin [place] 00 ) Flomax No Notes: Memoria 3-19 (Same As: l 14:00: Flomax) [place] 00 "Do Not Crush" pantoprazol No Notes: Kashif bello e 3-19 Tablet l 14:00: should not [place] 00 be chewed or crushed. (Same as: Protonix) Finasteride No Notes: Kashif bello 3-19 (Same as: l 14:00: Proscar) [place] 00 "Do Not Crush" Women of childbeari ng age should not touch or handle broken tablets Robaxin No Notes: Memoria 3-19 (Same l 14:00: as:Robaxin [place] 00 ) duloxetine No Notes: Memor ia 3-19 (Same as: l 14:00: Cymbalta) [place] 00 (Do Not Crush) Flomax No Notes: Memoria 3-19 (Same As: l 14:00: Flomax) [place] 00 "Do Not Crush" Aspirin 81 No Notes: Do Me moria MG Enteric 3-19 not crush l Coated 14:00: or chew. [place] Tablet 00 (Same As: Ecotrin) pantoprazol No Notes: Kashif bello e 3-19 Tablet l 14:00: should not [place] 00 be chewed or crushed. (Same as: Protonix) Finasteride No Notes: Kashif bello 3-19 (Same as: l 14:00: Proscar) [place] 00 "Do Not Crush" Women of childbeari ng age should not touch or handle broken tablets duloxetine No Notes: Memor ia 3-19 (Same as: l 14:00: Cymbalta) [place] 00 (Do Not Crush) Aspirin 81 No Notes: Do Me moria MG Enteric 3-19 not crush l Coated 14:00: or chew. [place] Tablet 00 (Same As: Ecotrin) Amylases No Notes: Memoria 19494 UNT / - (lipase l Endopeptida 13:00: 60,000 [place] [address] 00 units, UNT / protease Lipase 6000 19,000 UNT Enteric units, Coated amylase Capsule 30,000 [Creon 6] units DRC) Same as: Sumit ([place] 6) Amylases No Notes: Memoria UNT / 10-10 (lipase l Endopeptida 13:00: 60,000 [place] [id number] 00 units, UNT / protease Lipase 6000 19,000 UNT Enteric units, Coated amylase Capsule 30,000 [Creon 6] units DRC) Same as: Sumit (Sumit 6) Amylases No Notes: Memoria UNT / 10-10 (lipase l Endopeptida 13:00: 60,000 [place] [id number] 00 units, UNT / protease Lipase 6000 19,000 UNT Enteric units, Coated amylase Capsule 30,000 [Creon 6] units DRC) Same as: Sumit (Sumit 6) [facility]ases No [facility] l Endopeptida 13:00: 60,000 [place] [id number] 00 units, UNT / protease Lipase 6000 19,000 UNT Enteric units, Coated amylase Capsule 30,000 [Creon 6] units DRC) Same as: Sumit (Sumit 6) Amylases No [facility] (lipase l Endopeptida 12:16: 60,000 [place] [address] 00 units, UNT / protease Lipase 6000 19,000 UNT Enteric units, Coated amylase Capsule 30,000 [Creon 6] units DRC) Same as: Sumit (Sumit 6) [facility]ylases No [facility] (lipase l Endopeptida 12:16: 60,000 Herm [place] 764[address] 00 units, UNT / protease Lipase 6000 19,000 UNT Enteric units, Coated amylase Capsule 30,000 [Creon 6] units DRC) Same as: Sumit (Sumit 6) Amylases No [facility] (lipase l Endopeptida 12:16: 60,000 Herm [place]amaria [place] 56690 00 units, UNT / protease Lipase 6000 19,000 UNT Enteric units, Coated amylase Capsule 30,000 [Creon 6] units DRC) Same as: Creon (Creon 6) Amylases No Notes: Memoria [id number] UNT / 3-19 (lipase l Endopeptida 12:16: 60,000 Herm [place]amaria ses 095[address] 00 units, UNT / protease Lipase 6000 19,000 UNT Enteric units, Coated amylase Capsule 30,000 [Creon 6] units DRC) Same as: Creon (Creon 6) Simvastatin No Notes: Kashif bello 3-19 (Same as: l 02:00: Zocor) [place] Melatonin 3 No Notes: Kashif bello MG Extended 3-19 (Same as: l Release 02:00: Melatonin) Herm annamaria Tablet 00 latanoprost No Notes: Kashif bello 0.05 MG/ML 3-19 Keep l Ophthalmic 02:00: refrigerat H ermann Solution 00 ed. (Same as:Xalatan ) Simvastatin No Notes: Kashif bello 3-19 (Same as: l 02:00: Zocor) [place] Melatonin 3 No Notes: Kashif bello MG Extended 3-19 (Same as: l Release 02:00: Melatonin) Herm annamaria Tablet 00 latanoprost No Notes: Kashif bello 0.05 MG/ML 3-19 Keep l Ophthalmic 02:00: refrigerat H ermann Solution 00 ed. (Same as:Xalatan ) Simvastatin No Notes: Kashif bello 3-19 (Same as: l 02:00: Zocor) Joe Melatonin 3 No Notes: Kashif bello MG [...] 3-18 Same as l 22:12: Levemir Do [place] 00 not hold insulin without contacting prescriber WASTE: F/P - Black; E - Municipal Trash Bin "single patient use only" insulin No Notes: Memoria detemir 3-18 Same as l 22:12: Levemir Do not hold insulin without contacting prescriber WASTE: F/P - Black; E - Municipal Trash Bin "single patient use only" insulin No Notes: Memoria detemir 3-18 Same as l 22:12: Levemir Do not hold insulin without contacting [...] 22:00: Lyrica) Joe Amylases No Notes: Memoria [id number] UNT / 3-18 (lipase l Endopeptida 22:00: 60,000 [place] 87[address] 00 units, UNT / protease Lipase 6000 19,000 UNT Enteric units, Coated amylase Capsule 30,000 [Creon 6] units DRC) Same as: Sumit (Carolon 6) pregabalin No Notes: Memor ia 3-18 Same as l 22:00: Lyrica Joe Lyrica No Notes: Memoria 3-18 (Same as: l 22:00: Lyrica) Joe Amylases No Notes: Memoria UNT / 3-18 (lipase l Endopeptida 22:00: 60,000 [place] [address] 00 units, UNT / protease Lipase 6000 19,000 UNT Enteric units, Coated amylase Capsule 30,000 [Creon 6] units DRC) Same as: Sumit (Sumit 6) pregabalin No Notes: Memor ia 3-18 Same as l 22:00: Lyrica [place] Lyrica No Notes: Memoria 3-18 (Same as: l 22:00: Lyrica) Joe Amylases No Notes: Memoria UNT / 3-18 (lipase l Endopeptida 22:00: 60,000 [place] [address] 00 units, UNT / protease Lipase 6000 19,000 UNT Enteric units, Coated amylase Capsule 30,000 [Creon 6] units DRC) Same as: Sumit (Sumit 6) pregabalin No Notes: Memor ia 3-18 Same as l 22:00: Lyrica [place] Lyrica No Notes: Memoria 3-18 (Same as: l 22:00: Lyrica) Joe Amylases No Notes: Memoria UNT / 3-18 (lipase l Endopeptida 22:00: 60,000 [place] 82[address] 00 units, UNT / protease Lipase 6000 19,000 UNT Enteric units, Coated amylase Capsule 30,000 [Creon 6] units DRC) Same as: Sumit (Sumit 6) oxybutynin No Notes: Memor ia 3-18 Same as: l 18:38: Ditropan) Joe oxybutynin No Notes: Memor ia 3-18 Same [...] Amylases No 1 cap, PO, Mem oria [id number] UNT / 3-18 QID, # 120 l Endopeptida 18:27: cap, 0 Herm [place] [id number] 00 Refill(s) UNT / Lipase 6000 UNT Enteric Coated Capsule [Creon 6] calcium-vit Yes 1 tab, PO, Memoria mendez D 250 3-18 TID, 0 l mg-125 18:27: Refill(s) Leoncio n units oral 00 tablet Vitamin B Yes 1000 mcg, Mem oria 12 3-18 IM, ONCE, l 18:27: 0 [place] 00 Refill(s) finasteride Yes 5 mg = [...] Amylases No 1 cap, PO, Mem oria [id number] UNT / 3-18 QID, # 120 l Endopeptida 18:27: cap, 0 Herm [place]amaria ses 56803 00 Refill(s) UNT / Lipase 6000 UNT Enteric Coated Capsule [Creon 6] calcium-vit Yes 1 tab, PO, Memoria mendez D 250 3-18 TID, 0 l mg-125 18:27: Refill(s) Leoncio n units oral 00 tablet Vitamin B Yes 1000 mcg, Mem oria 12 3-18 IM, ONCE, l 18:27: 0 [place] 00 Refill(s) finasteride Yes 5 mg = [...] detemir 3-18 SUB-Q, l 18:27: Daily, 0 [place] 00 Refill(s) pregabalin Yes 150 mg = [...] Amylases No 1 cap, PO, Mem oria [id number] UNT / 3-18 QID, # 120 l Endopeptida 18:27: cap, 0 Herm [place] [id number] 00 Refill(s) UNT / Lipase 6000 UNT Enteric Coated Capsule [Creon 6] DULoxetine Yes 60 mg = 1 Me moria 60 mg oral 3-18 cap, PO, l delayed 18:27: Daily, # Leoncio n release 00 90 cap, 0 capsule Refill(s) calcium-vit Yes 1 tab, PO, Memoria mendez D 250 3-18 TID, 0 l mg-125 18:27: Refill(s) Leoncio n units oral 00 tablet omeprazole Yes 20 mg = 1 Me moria 20 mg oral 3-18 tab, PO, l enteric 18:27: Daily, # Leoncio n coated 00 30 tab, 3 tablet Refill(s) Vitamin B Yes 1000 mcg, Mem oria 12 3-18 IM, ONCE, l 18:27: 0 [place] 00 Refill(s) simvastatin Yes 10 mg = 1 M emoria 10 mg oral 3-18 tab, PO, l tablet 18:27: Bedtime, # Mariah nn 00 30 tab, 0 Refill(s) finasteride Yes 5 mg = 1 Me moria 5 mg oral 3-18 tab, PO, l tablet 18:27: Daily, # Joe 00 30 tab, 0 Refill(s) Amylases No 1 cap, PO, Mem oria [id number] UNT / 3-18 QID, # 120 l Endopeptida 18:27: cap, 0 Herm [place]amaria [place] 43621 00 Refill(s) UNT / Lipase 6000 UNT Enteric Coated Capsule [Creon 6] metoprolol Yes 25 mg = 1 Me moria tartrate 25 3-18 tab, PO, l mg oral 18:27: BID, # 60 Mariah nn tablet 00 tab, 0 Refill(s) calcium-vit Yes 1 tab, PO, Memoria mendez D 250 3-18 TID, 0 l mg-125 18:27: Refill(s) Leoncio n units oral 00 tablet Lidocaine Yes 1 patch, Kashif bello Hydrochlori 3-18 TOP, l de 0.05 18:27: Daily, 0 Leoncio n MG/MG 00 Refill(s) Transdermal Patch Vitamin B Yes 1000 mcg, Mem oria 12 3-18 IM, ONCE, l 18:27: 0 [place] 00 Refill(s) insulin 2015-0 No 30 unit, Memori a detemir 3-18 SUB-Q, l 18:27: Daily, 0 Joe 00 Refill(s) finasteride 2016 Yes 5 mg = 1 Me moria 5 mg oral 3-18 tab, PO, l tablet 18:27: Daily, # Joe 00 30 tab, 0 Refill(s) pregabalin Yes 150 mg = 1 M emoria 150 mg oral 3-18 cap, PO, l capsule 18:27: TID, # 90 Mariah nn 00 cap, 0 Refill(s) metoprolol Yes 25 mg = 1 Me moria tartrate 25 3-18 tab, PO, l mg oral 18:27: BID, # 60 Mariah nn tablet 00 tab, 0 Refill(s) Insulin, No 12 unit, Memor ia Aspart, 3-18 SUB-Q, l Human 18:27: TID-Before Leoncio n 00 Meals, 0 Refill(s) Lidocaine Yes 1 patch, Kashif bello Hydrochlori 3-18 TOP, l de 0.05 18:27: Daily, 0 Leoncio n MG/MG 00 Refill(s) Transdermal Patch oxybutynin No 5 mg = 1 Mem oria 5 mg oral 3-18 tab, PO, l tablet 18:27: TID, PRN [place] 00 Other-See Comments, # 30 tab, 0 Refill(s) insulin No 30 unit, Memori a detemir 3-18 SUB-Q, l 18:27: Daily, 0 [place] 00 Refill(s) pregabalin Yes 150 mg = [...] tab, PO, l tablet 18:27: TID, PRN [place] 00 Other-See Comments, # 30 tab, 0 Refill(s) Aspirin 81 2016 Yes 81 mg = 1 Me moria [...] Daily, # l 18:11: 30 tab, 0 [place] 00 Refill(s) Tamsulosin Yes 0.4 mg = 1 M emoria hydrochlori 3-18 cap, PO, l de 0.4 MG 18:11: Daily, 0 Herm annamaria Oral 00 Refill(s) Capsule [Flomax] metoprolol No BID, 0 Memor ia tartrate 3-18 Refill(s) l 18:11: Joe 00 duloxetine No PO, 0 Memori a 3-18 Refill(s) l 18:11: Joe 00 Ibuprofen No 0 Memoria 3-18 Refill(s) l 18:11: [place] 00 Ranitidine No 0 Memoria 3-18 Refill(s) l 18:11: Joe 00 insulin No SUB-Q, 0 Memori a detemir 3-18 Refill(s) l 18:11: [place] 00 Aspirin 81 Yes 81 mg = 1 Me moria MG Enteric 3-18 tab, PO, l Coated 18:11: Daily, # [place] Tablet 00 90 tab, 3 Refill(s) latanoprost [...] Daily, # l 18:11: 30 tab, 0 [place] 00 Refill(s) Tamsulosin Yes 0.4 mg = 1 M emoria hydrochlori 3-18 cap, PO, l de 0.4 MG 18:11: Daily, 0 Herm annamaria Oral 00 Refill(s) Capsule [Flomax] metoprolol No BID, 0 Memor ia tartrate 3-18 Refill(s) l 18:11: [place] 00 duloxetine No PO, 0 Memori a 3-18 Refill(s) l 18:11: Joe 00 Ibuprofen No 0 Memoria 3-18 Refill(s) l 18:11: Joe 00 Ranitidine No 0 Memoria 3-18 Refill(s) l 18:11: [place] 00 insulin No SUB-Q, 0 Memori a detemir 3-18 Refill(s) l 18:11: [place] 00 Aspirin 81 Yes 81 mg = 1 Me moria MG Enteric 3-18 tab, PO, l Coated 18:11: Daily, # [place] Tablet 00 90 tab, 3 Refill(s) latanoprost [...] 18:11: 30 tab, 0 Joe 00 Refill(s) Aspirin 81 0 Yes 81 mg = 1 Me moria MG Enteric 3-18 tab, PO, l Coated 18:11: Daily, # Joe Tablet 00 90 tab, 3 Refill(s) Tamsulosin Yes 0.4 mg = 1 M emoria hydrochlori 3-18 cap, PO, l de 0.4 MG 18:11: Daily, 0 Herm annamaria Oral 00 Refill(s) Capsule [Flomax] latanoprost 2016 No 1 drp, Kashif bello 0.05 MG/ML 3-18 Each l Ophthalmic 18:11: Affected Her cramer Solution 00 Eye, Bedtime, # 1 btl, 1 Refill(s) metoprolol No BID, 0 Memor ia tartrate 3-18 Refill(s) l 18:11: [place] 00 pregabalin No 100 mg = 1 M emoria 100 MG Oral 3-18 cap, PO, l Capsule 18:11: TID, # 90 Mariah nn [Lyrica] 00 cap, 0 Refill(s) duloxetine No PO, 0 Memori a 3-18 Refill(s) l 18:11: [place] 00 pantoprazol Yes 40 mg, PO, Memoria e 3-18 Daily, # l 18:11: 30 tab, 0 Joe 00 Refill(s) Ibuprofen No 0 Memoria 3-18 Refill(s) l 18:11: [place] Tamsulosin Yes 0.4 mg = 1 M emoria hydrochlori 3-18 cap, PO, l de 0.4 MG 18:11: Daily, 0 Herm annamaria Oral 00 Refill(s) Capsule [Flomax] Ranitidine No 0 Memoria 3-18 Refill(s) l 18:11: [place] 00 metoprolol No BID, 0 Memor ia tartrate 3-18 Refill(s) l 18:11: Joe insulin No SUB-Q, 0 Memori a detemir 3-18 Refill(s) l 18:11: [place] 00 duloxetine 0 No PO, 0 Memori a 3-18 Refill(s) l 18:11: [place] 00 Ibuprofen No 0 Memoria 3-18 Refill(s) l 18:11: [place] Ranitidine No 0 Memoria 3-18 Refill(s) l 18:11: Joe insulin No SUB-Q, 0 Memori a detemir 3-18 Refill(s) l 18:11: [place] 00 Hydralazine No Notes: Kashif bello 3-18 (Same as: l 17:09: Apresoline ) Push over 5 minutes Hydralazine No Notes: Kashif bello 3-18 (Same as: l 17:09: Aproline ) Push over 5 minutes Hydralazine No Notes: Kashif bello 3-18 (Same as: l 17:09: Aproline ) Push over 5 minutes Hydralazine No Notes: Kashif bello 3-18 (Same as: l 17:09: oline ) Push over 5 minutes Insulin No 60 units) Kashif bello regular 3-18 WASTE: F/P l 13:25: - Black; E - Municipal Trash Bin Stable for 28 days at room temperatur e Expires in days from ____Date Dextrose 2015-0 No 25 gm, 50 Kashif bello 50% Syringe 3-18 mL, Route: l 13:25: IVP, Drug Form: INJ, Dosing Weight 84.8, kg, PRN, PRN Blood Glucose Results, Start date: 10/10/15 8:25:00, Duration: 30 day, Stop date: 11/09/15 8:24:00 Glucagon 2015-0 No 1 mg, Memoria 3-18 Route: IM, l 13:25: Drug form: Joe 00 PDR/INJ, PRN, Dosing Weight 84.8, kg, PRN Blood Glucose Results, Start date: 10/10/15 8:25:00, Duration: 30 day, Stop date: 11/09/15 8:24:00 Insulin 2015-0 No 60 units) Kashif bello regular 3-18 WASTE: F/P l 13:25: - Black; E - Municipal Trash Bin Stable for 28 days at room temperatur e Expires in days from ____Date Dextrose 2015-0 No 25 gm, 50 Kashif bello 50% Syringe 3-18 mL, Route: l 13:25: IVP, Drug 00 Form: INJ, Dosing Weight 84.8, kg, PRN, PRN Blood Glucose Results, Start date: 10/10/15 8:25:00, Duration: 30 day, Stop date: 11/09/15 8:24:00 Glucagon 2015-0 No 1 mg, Memoria 318 Route: IM, l 13:25: Drug form: Joe 00 PDR/INJ, PRN, Dosing Weight 84.8, kg, PRN Blood Glucose Results, Start date: 10/10/15 8:25:00, Duration: 30 day, Stop date: 11/09/15 8:24:00 Insulin 2016-0 No 60 units) Kashif bello regular 3-18 WASTE: F/P l 13:25: - Black; E - Municipal Trash Bin Stable for 28 days at room temperatur e Expires in days from ____Date Dextrose 2016-0 No 25 gm, 50 Kashif bello 50% Syringe 3-18 mL, Route: l 13:25: IVP, Drug Form: INJ, Dosing Weight 84.8, kg, PRN, PRN Blood Glucose Results, Start date: 10/10/15 8:25:00, Duration: 30 day, Stop date: 11/09/15 8:24:00 Glucagon 2015-0 No 1 mg, Memoria 318 Route: IM, l 13:25: Drug form: [place] PDR/INJ, PRN, Dosing Weight 84.8, kg, PRN Blood Glucose Results, Start date: 10/10/15 8:25:00, Duration: 30 day, Stop date: 11/09/15 8:24:00 Insulin 2015-0 No 60 units) Kashif bello regular 3-18 WASTE: F/P l 13:25: - Black; E - Municipal Trash Bin Stable for 28 days at room temperatur e Expires in days from ____Date Dextrose 2016-0 No 25 gm, 50 Kashif bello 50% [...] en 3-18 acetaminop l 05:00: hen 4000 [place] 00 mg/day (4 gm/day). (Same as: Tylenol Extra Strength) Acetaminoph No Notes: Max Memoria en 3-18 acetaminop l 05:00: hen 4000 [place] 00 mg/day (4 gm/day). (Same as: Tylenol Extra Strength) Acetaminoph No Notes: Max Memoria en 3-18 acetaminop l 05:00: hen 4000 [place] 00 mg/day (4 gm/day). (Same as: Tylenol Extra Strength) Acetaminoph No Notes: Max Memoria en 3-18 acetaminop l 05:00: hen 4000 [place] 00 mg/day (4 gm/day). (Same as: Tylenol Extra Strength) Haldol No Notes: Memoria 3-18 (Same as: l 04:47: Haldol) [place] 00 Haldol No Notes: Memoria 3-18 (Same as: l 04:47: Haldol) Joe 00 Haldol No Notes: Memoria 3-18 (Same as: l 04:47: Haldol) Joe 00 Haldol No Notes: Memoria 3-18 (Same as: l 04:47: Haldol) [place] sennosides, No Notes: Kashif bello HALFWAY 3-18 (Same as: l 02:00: Senokot) Joe Docusate No Notes: Memoria 3-18 (Same as: l 02:00: Colace) [place] (Do Not Crush) sennosides, No Notes: Kashif bello HALFWAY 3-18 (Same as: l 02:00: Senokot) [place] Docusate No Notes: Memoria 3-18 (Same as: l 02:00: Colace) [place] 00 (Do Not Crush) sennosides, No Notes: Kashif bello HALFWAY 3-18 (Same as: l 02:00: Senokot) Joe Docusate No Notes: Memoria 3-18 (Same as: l 02:00: Colace) Joe 00 (Do Not Crush) sennosides, No Notes: Kashif bello HALFWAY 3-18 (Same as: l 02:00: Senokot) Joe 00 Docusate No Notes: Memoria 3-18 (Same as: l 02:00: Colace) [place] (Do Not Crush) metoprolol No Notes: Memor ia tartrate 3-18 (Same as: l 00:51: Lopressor) Joe 00 metoprolol No Notes: Memor ia tartrate 3-18 (Same as: l 00:51: Lopressor) [place] 00 metoprolol No Notes: Memor ia tartrate 3-18 (Same as: l 00:51: Lopressor) [place] 00 metoprolol No Notes: Memor ia tartrate 3-18 (Same as: l 00:51: Lopressor) Joe 00 Oxycodone No Notes: Memori a Hydrochlori [...] Roxicodone Herm annamaria Oral Tablet ) Dextrose 2016-0 No 12.5 gm, Memor ia 50% Syringe 3-17 25 mL, l 22:20: Route: Joe 00 IVP, Drug Form: INJ, Dosing Weight 84.8, kg, PRN, PRN Abnormal Lab Result, Start date: 10/09/15 17:20:00, Duration: 30 day, Stop date: 11/08/15 17:19:00, For FSBG 40 mg/dL - 60 mg/dL Insulin 2016-0 No 60 units) Kashif bello regular 3-17 WASTE: F/P l 22:20: - Black; E Joe - Municipal Trash Bin Stable for 28 days at room temperatur e Expires in days from ____Date Dextrose 2015-0 No 12.5 gm, Memor ia 50% Syringe 3-17 25 mL, l 22:20: Route: Joe 00 IVP, Drug Form: INJ, Dosing Weight 84.8, kg, PRN, PRN Abnormal Lab Result, Start date: 10/09/15 17:20:00, Duration: 30 day, Stop date: 11/08/15 17:19:00, For FSBG 40 mg/dL - 60 mg/dL Insulin 2016-0 No 60 units) Kashif bello regular 3- WASTE: F/P l 22:20: - Black; E [place] - Municipal Trash Bin Stable for 28 days at room temperatur e Expires in days from ____Date Dextrose 2015-0 No 12.5 gm, Memor ia 50% Syringe 3-17 25 mL, l 22:20: Route: [place] 00 IVP, Drug Form: INJ, Dosing Weight 84.8, kg, PRN, PRN Abnormal Lab Result, Start date: 10/09/15 17:20:00, Duration: 30 day, Stop date: 11/08/15 17:19:00, For FSBG 40 mg/dL - 60 mg/dL Insulin 2016-0 No 60 units) Kashif bello regular 3-17 WASTE: F/P l 22:20: - Black; E [place] - Municipal Trash Bin Stable for 28 days at room temperatur e Expires in days from ____Date Dextrose No 12.5 gm, Memor ia 50% Syringe -17 25 mL, l 22:20: Route: [place] 00 IVP, Drug Form: INJ, Dosing Weight 84.8, kg, PRN, PRN Abnormal Lab Result, Start date: 10/09/15 17:20:00, Duration: 30 day, Stop date: 11/08/15 17:19:00, For FSBG 40 mg/dL - 60 mg/dL Insulin No 60 units) Kashif bello regular 3-17 WASTE: F/P l 22:20: - Black; E [place] - [facility] Trash Bin Stable for 28 days at room temperatur e Expires in days from ____Date Isolyte S No Notes: Memori a PH 7.4 3-17 (Same as: l 1,000 mL 20:46: Isolyte S Herm annamaria 00 PH 7.4) Isolyte S No Notes: Memori a PH 7.4 3-17 (Same as: l 1,000 mL 20:46: Isolyte S Herm annamaria 00 PH 7.4) Isolyte S No Notes: Memori a PH 7.4 3-17 (Same as: l 1,000 mL 20:46: Isolyte S Herm annamaria 00 PH 7.4) Isolyte S No Notes: Memori a PH 7.4 3-17 (Same as: l 1,000 mL 20:46: Isolyte S Herm annamaria 00 PH 7.4) Hydromorpho No Notes: Kashif bello ne 3-17 Same as: l 19:00: Dilaudid [place] Hydromorpho No Notes: Kashif bello ne 3-17 Same as: l 19:00: Dilaudid [place] Hydromorpho No Notes: Kashif bello ne 3-17 Same as: l 19:00: Dilaudid [place] Hydromorpho No Notes: Kashif bello ne 3-17 Same as: l 19:00: Dilaudid [place] Dilaudid 2016-0 No 1 mg, Memoria 3-17 Route: l 15:12: IVP, ONCE, Joe Dosing Weight 81.818, kg, Priority: STAT, Start date: 10/09/15 10:12:00, Stop date: 10/09/15 10:12:00 Dilaudid 2016-0 No 1 mg, Memoria 3-17 Route: l 15:12: IVP, ONCE, [place] Dosing Weight 81.818, kg, Priority: STAT, Start date: 10/09/15 10:12:00, Stop date: 10/09/15 10:12:00 Dilaudid 2016-0 No 1 mg, Memoria 3-17 Route: l 15:12: IVP, ONCE, [place] Dosing Weight 81.818, kg, Priority: STAT, Start date: 10/09/15 10:12:00, Stop date: 10/09/15 10:12:00 Dilaudid 2016-0 No 1 mg, Memoria 3-17 Route: l 15:12: IVP, ONCE, [place] Dosing Weight 81.818, kg, Priority: STAT, Start date: 10/09/15 10:12:00, Stop date: 10/09/15 10:12:00 Hydromorpho 0 No Notes: Kashif bello ne 3-17 Same as: l 12:55: Dilaudid [place] 00 Hydromorpho 0 No Notes: Kashif bello ne 3-17 Same as: l 12:55: Dilaudid [place] 00 Hydromorpho 0 No Notes: Kashif bello ne 3-17 Same as: l 12:55: Dilaudid [place] 00 Hydromorpho 2015-0 No Notes: Kashif bello ne 3-17 Same as: l 12:55: Dilaudid Joe 00 Fentanyl 0 No Notes: Memoria 3-17 (Same as: l 09:26: Sublimaze) Joe 00 Preservati ve free. Fentanyl 2015-0 No Notes: Memoria 3-17 (Same as: l 09:26: Sublimaze) Joe 00 Preservati ve free. Fentanyl 2015-0 No Notes: Memoria 3-17 (Same as: l 09:26: Sublimaze) Joe 00 Preservati ve free. Fentanyl No Notes: Memoria 3-17 (Same as: l 09:26: Sublimaze) Joe 00 Preservati ve free. Heparin 30 No Route: Memor ia unit/kg 3-17 IVP, PRN, l Bolus 07:39: 2,200 [place] (Heparin 00 unit, 2.2 Dosing mL, Drug Weight) form: INJ, PRN, Heparin Protocol, Start date: 10/09/15 2:39:00 Stop date: 11/08/15 2:38:00, 30 day Heparin 60 No Route: Memor ia unit/kg 3-17 IVP, PRN, l Bolus 07:39: 4,400 [place] (Heparin 00 unit, 4.4 Dosing mL, Drug [...] 3-17 IVP, PRN, l Bolus 07:39: 2,200 Joe (Heparin 00 unit, 2.2 Dosing mL, Drug Weight) form: INJ, PRN, Heparin Protocol, Start date: 10/09/15 2:39:00 Stop date: 11/08/15 2:38:00, 30 day Heparin 60 No Route: Memor ia unit/kg 3-17 IVP, PRN, l Bolus 07:39: 4,400 [place] (Heparin 00 unit, 4.4 Dosing mL, Drug [...] 3-17 IVP, PRN, l Bolus 07:39: 2,200 Joe (Heparin 00 unit, 2.2 Dosing mL, Drug Weight) form: INJ, PRN, Heparin Protocol, Start date: 10/09/15 2:39:00 Stop date: 11/08/15 2:38:00, 30 day Heparin 30 No Route: Memor ia unit/kg 3-17 IVP, PRN, l Bolus 07:39: 2,200 Joe (Heparin 00 unit, 2.2 Dosing mL, Drug Weight) form: INJ, PRN, Heparin Protocol, Start date: 10/09/15 2:39:00 Stop date: 11/08/15 2:38:00, 30 day Heparin 60 No Route: Memor ia unit/kg 3-17 IVP, PRN, l Bolus 07:39: 4,400 [place] (Heparin 00 unit, 4.4 Dosing mL, Drug Weight) form: INJ, PRN, Heparin Protocol, Start date: 10/09/15 2:39:00 Stop date: 11/08/15 2:38:00 Heparin 60 No Route: Memor ia unit/kg 3-17 IVP, PRN, l Bolus 07:39: 4,400 [place] (Heparin 00 unit, 4.4 Dosing mL, Drug [...] Duration: 30 day, Stop date: 11/08/15 2:38:00 heparin 2016-0 No 500 mL, Memoria additive 3-17 Rate: 17.7 l 25,000 unit 07:39: ml/hr, Herm annamaria [12 00 Infuse unit/kg/hr] over: 28.2 + Premix hr, Route: Diluent IV, Dosing Dextrose 5% Weight 500 mL 73.77 kg, Total Volume: 500 mL, Start date: 10/09/15 2:39:00, Duration: 30 day, Stop date: 11/08/15 2:38:00 Vital Signs Vital Name Observation Time Observation Value Comments Source Systolic blood 2022-10-15 23:01:00 102 [facility]Hg[facility] Diastolic blood 2022-10-15 23:01:00 78 mm[Hg] [facility] Heart rate 2022-10-15 23:01:00 109 /min [facility] Respiratory rate 2022-10-15 23:01:00 18 /min [facility] Oxygen saturation in 2022-10-15 23:01:00 95 /min [facility] Arterial blood by [facility] Pulse oximetry [place] Body temperature 2022-10-15 21:46:00 36.5 Korin [facility] Body weight 2022-10-15 21:46:00 58.06 kg [facility] BMI 2022-10-15 21:46:00 19.46 kg/m2 [facility] Respitory Rate 2016-08-18 21:09:00 Memori al Joe Systolic (mm Hg) 2016-08-18 21:09:00 Kashif rial [place] Diastolic (mm Hg) 2016-08-18 21:09:00 Mem orial Joe Systolic (mm Hg) 2016-08-18 20:00:00 Kashif rial [place] Diastolic (mm Hg) 2016-08-18 20:00:00 Mem orial Joe Respitory Rate 2016-08-18 20:00:00 Memori al Joe Systolic (mm Hg) 2016-08-18 19:00:00 Kashif rial [place] Diastolic (mm Hg) 2016-08-18 19:00:00 Mem orial Joe Respitory Rate 2016-08-18 19:00:00 Memori al Joe Temperature Oral (F) 2016-08-18 17:51:00 98.3 F [facility] Joe Temperature Oral (F) 2016-08-18 14:26:00 97.9 F [facility] [place] Temperature Oral (F) 2016-08-18 11:27:00 96.9 F [facility] [place] Height 2016-08-16 16:29:00 172.72 cm [facility] Height 2016-08-16 14:43:00 172.72 cm [facility] Height 2016-08-16 08:55:00 172.72 cm [facility] [place] Weight 2016-08-16 07:02:00 [facility] BMI Calculated 2016-08-16 07:02:00 [facility] Heart Rate 2015-10-14 17:16:00 [facility] [place] Respitory Rate 2015-10-14 17:16:00 [facility] [place] Temperature Oral (F) 2015-10-14 17:16:00 97.8 F [facility] [place] Systolic (mm Hg) 2015-10-14 17:16:00 Kashif rial Joe Diastolic (mm Hg) 2015-10-14 17:16:00 Mem [facility] [place] Respitory Rate 2015-10-14 13:12:00 [facility] [place] Systolic (mm Hg) 2015-10-14 13:12:00 Kashif rial [place] Diastolic (mm Hg) 2015-10-14 13:12:00 Mem [facility] [place] Temperature Oral (F) 2015-10-14 13:12:00 97.8 F [facility] [place] Heart Rate 2015-10-14 13:12:00 [facility] [place] Respitory Rate 2015-10-14 11:26:00 [facility] Systolic (mm Hg) 2015-10-14 11:26:00 Kashif rial Joe Diastolic (mm Hg) 2015-10-14 11:26:00 [facility] [place] Temperature Oral (F) 2015-10-14 11:26:00 97.7 F [facility] Heart Rate 2015-10-14 11:26:00 [facility] BMI Calculated 2015-10-09 21:00:00 [facility] Weight 2015-10-09 21:00:00 [facility] Height 2015-10-09 21:00:00 172.72 cm [facility] Weight 2015-10-09 06:32:00 [facility] Height 2015-10-09 06:32:00 172.72 cm Maricarmen Pattersonann BMI Calculated 2015-10-09 06:32:00 [facility] Procedures Procedure Date / Time Performed Performing Clinician Sourc e Pancreas [facility] excision<sup>1</sup> Encounters Start End Encounter Admission Attending Care Care Encounter Source Date/Time Date/Time Type Type Clinicians Facility Department ID 2022-09-21 Outpatient 3 [id number] [facility] CVA [id number] [facility] 11:23:14 [id number] 2022-09-16 Outpatient 3 [id number] [facility] REF [id number] [facility] 12:56:39 [id number] [facility] 2022-09-13 Outpatient 3 [id number] [facility] REF [id number] [facility] 12:05:50 [id number] [facility] 2022-10-15 2022-10-15 Emergency X SINGER MSMARIO ERT [id number] [facility] 16:51:00 19:27:00 JEANETTE connelly [facility] 2022-10-15 2022-10-15 Emergency CristiZaida meier Faby [facility] [id number] [facility] 16:51:00 19:27:00 Jeanette Fonseca [id number] ity [facility] [id number] [facility] [id number] [facility] [address] 2022-08-29 2022-08-29 Nurse KG Lizama [id number] [facility] 00:00:00 00:00:00 Triage Royce ROMERO [id number] it y [facility] [id number] [facility] [phone] [facility] [address] 2021-05-14 2021-05-14 Outpatient DMG DMG [id number] [facility] 08:02:00 08:02:00 [facility] 2016-08-16 2016-08-18 [facility] [id number] Mem[facility] 06:53:00 22:10:[address] 2016-08-16 2016-08-18 [facility] [id number] Mem[facility] 06:53:00 22:10:[address] 2016-08-16 2016-08-18 [facility] [id number] Mem[facility] 06:53:00 22:10:[address] 2016-08-16 2016-08-18 Outpatient Michela, [facility] [id number] 00:53:00 16:10:00 [place] [address] 2016-08-16 2016-08-18 Outpatient Michela [facility] [id number] 00:53:00 16:10:00 [place] [address] 2015-10-08 2015-10-14 [facility] [id number] Memoria 06:32:00 18:55:[address] 2015-10-08 2015-10-14 [facility] [id number] [facility] 06:32:00 18:55:[address] 2015-10-08 2015-10-14 [facility] [id number] Memoria 06:32:00 18:55:[address] 2015-10-08 2015-10-14 Outpatient Mouser, [facility] [id number] 01:32:00 13:55:00 Leland Melendez 2015-10-08 2015-10-14 Outpatient Mouser, [facility] [id number] 01:32:00 13:55:00 Leland Melendez Results Test Description Test Time Test Comments Results Result Comments Source HEMATOLOGY 2016-08-18 10:45:00 Test Item Value Reference Range Interpretation Comme nts Hct (test code = Hct) 38.7 42.0-54.0 [facility]TjvbyolLRMCZRHMWT8729-91-98 10:45:00 Test Item Value Reference Range Interpretation Comments RBC (test code = RBC) 4.60 4.70-6.10 [facility] HospitalOmagsiqQEJUNZJTFT5264-58-86 10:45:00 Test Item Value Reference Range Interpretation Comments RBC (test code = RBC) 4.60 4.70-6.10 [facility]2017-01-25 10:45:00 Test Item Value Reference Range Interpretation Comments Magnesium Lvl (test code = Magnesium 1.9 1.8-2.4 Lvl) [facility]2017-01-25 10:45:00 Test Item Value Reference Range Interpretation Comments Magnesium Lvl (test code = Magnesium 1.9 1.8-2.4 Lvl) [facility]2017-01-25 10:45:00 Test Item Value Reference Range Interpretation Comments Calcium Lvl (test code = Calcium Lvl) 9.2 8.5-10.5 [facility]2017-01-25 10:45:00 Test Item Value Reference Range Interpretation Comments Calcium Lvl (test code = Calcium Lvl) 9.2 8.5-10.5 [facility]2017-01-25 10:45:00 Test Item Value Reference Range Interpretation Comments eGFR (test code = eGFR) 85 [facility]2017-01-25 10:45:00 Test Item Value Reference Range Interpretation Comments BUN (test code = BUN) 14 02-12 [facility]2017-01-25 10:45:00 Test Item Value Reference Range Interpretation Comments eGFR (test code = eGFR) 85 [facility]2017-01-25 10:45:00 Test Item Value Reference Range Interpretation Comments BUN (test code = BUN) 14 02-12 [facility]2017-01-25 10:45:00 Test Item Value Reference Range Interpretation Comments Glucose Lvl (test code = Glucose Lvl) 166 [facility]2017-01-25 10:45:00 Test Item Value Reference Range Interpretation Comments Creatinine Lvl (test code = Creatinine 0.92 0.50-1.40 Lvl) [facility]InjzlaeZTWUTLSILZ5550-01-52 10:45:00 Test Item Value Reference Range Interpretation Comments WBC (test code = WBC) 8.0 3.7-10.4 [facility]2017-01-25 10:45:00 Test Item Value Reference Range Interpretation Comments Glucose Lvl (test code = Glucose Lvl) 166 70 [facility]2017-01-25 10:45:00 Test Item Value Reference Range Interpretation Comments Sodium Lvl (test code = Sodium Lvl) 140 135-145 [facility]2017-01-25 10:45:00 Test Item Value Reference Range Interpretation Comments Creatinine Lvl (test code = Creatinine 0.92 0.50-1.40 Lvl) [facility]2017-01-25 10:45:00 Test Item Value Reference Range Interpretation Comments Potassium Lvl (test code = Potassium 4.1 3.5-5.1 Lvl) [facility]2017-01-25 10:45:00 Test Item Value Reference Range Interpretation Comments Sodium Lvl (test code = Sodium Lvl) 140 135-145 [facility]2017-01-25 10:45:00 Test Item Value Reference Range Interpretation Comments Chloride Lvl (test code = Chloride Lvl) 102 95-109 [facility]2017-01-25 10:45:00 Test Item Value Reference Range Interpretation Comments Potassium Lvl (test code = Potassium 4.1 3.5-5.1 Lvl) [facility]2017-01-25 10:45:00 Test Item Value Reference Range Interpretation Comments CO2 (test code = CO2) [facility]2017-01-25 10:45:00 Test Item Value Reference Range Interpretation Comments Chloride Lvl (test code = Chloride Lvl) 102 95-109 [facility]2017-01-25 10:45:00 Test Item Value Reference Range Interpretation Comments AGAP (test code = AGAP) 13.1 10.0-20.0 [facility] HospitalUuzdnsxEMFOQUNEUQ9541-39-04 10:45:00 Test Item Value Reference Range Interpretation Comments WBC (test code = WBC) 8.0 3.7-10.4 [facility]2017-01-25 10:45:00 Test Item Value Reference Range Interpretation Comments CO2 (test code = CO2) [facility]2017-01-25 10:45:00 Test Item Value Reference Range Interpretation Comments Phosphorus (test code = Phosphorus) 3.7 2.5-4.5 [facility]2017-01-25 10:45:00 Test Item Value Reference Range Interpretation Comments AGAP (test code = AGAP) 13.1 10.0-20.0 [facility] HospitalIxlxfueOGCRDGSRWN7138-74-76 10:45:00 Test Item Value Reference Range Interpretation Comments Platelet (test code = Platelet) 158 133-450 [facility]2017-01-25 10:45:00 Test Item Value Reference Range Interpretation Comments Phosphorus (test code = Phosphorus) 3.7 2.5-4.5 [facility] HospitalAjbffveDATEQSQDWH6415-90-33 10:45:00 Test Item Value Reference Range Interpretation Comments MPV (test code = MPV) 9.1 7.4-10.4 [facility] HospitalAnaiezzBITUMEYCMP3679-78-19 10:45:00 Test Item Value Reference Range Interpretation Comments Platelet (test code = Platelet) 158 133-450 [facility] HospitalUldtezqWVEAGOAABT2997-90-71 10:45:00 Test Item Value Reference Range Interpretation Comments RDW (test code = RDW) 17.0 11.5-14.5 [facility] HospitalUaadxkuHFMEQMPIRB1571-98-36 10:45:00 Test Item Value Reference Range Interpretation Comments MPV (test code = MPV) 9.1 7.4-10.4 [facility] HospitalTmomftdBBZFEGYZLN9407-12-38 10:45:00 Test Item Value Reference Range Interpretation Comments MCHC (test code = MCHC) 32.1 32.0-36.0 [facility] HospitalHjkqzdrSSXMSWNXPY5964-03-41 10:45:00 Test Item Value Reference Range Interpretation Comments Hgb (test code = Hgb) 12.4 14.0-18.0 [facility] HospitalBqrlijiOAMJZMQUBX5629-06-95 10:45:00 Test Item Value Reference Range Interpretation Comments RDW (test code = RDW) 17.0 11.5-14.5 [facility] HospitalKeifiavWCCHDSSGSS8457-91-75 10:45:00 Test Item Value Reference Range Interpretation Comments Hct (test code = Hct) 38.7 42.0-54.0 [facility] HospitalYhqqlbfRNVHPDQDDD1876-48-12 10:45:00 Test Item Value Reference Range Interpretation Comments MCHC (test code = MCHC) 32.1 32.0-36.0 [facility] HospitalRlpmhebWIBAMWGGKK0183-23-46 10:45:00 Test Item Value Reference Range Interpretation Comments RBC (test code = RBC) 4.60 4.70-6.10 [facility] HospitalHdcebmcQBXBRMMKKA5582-82-46 10:45:00 Test Item Value Reference Range Interpretation Comments Hct (test code = Hct) 38.7 42.0-54.0 [facility] HospitalLitlemiRUJGFHEFCU3128-55-87 10:45:00 Test Item Value Reference Range Interpretation Comments WBC (test code = WBC) 8.0 3.7-10.4 [facility] HospitalHatvegnEUJRERKSEF1969-36-87 10:45:00 Test Item Value Reference Range Interpretation Comments RBC (test code = RBC) 4.60 4.70-6.10 [facility] HospitalYgvubpoLKQGAEGLFR3122-28-70 10:45:00 Test Item Value Reference Range Interpretation Comments Hgb (test code = Hgb) 12.4 14.0-18.0 [facility] HospitalAxxjqabWZXDXKHKZC0103-04-49 10:45:00 Test Item Value Reference Range Interpretation Comments WBC (test code = WBC) 8.0 3.7-10.4 [facility] HospitalCrakcopQAOFXYNHSF6920-35-27 10:45:00 Test Item Value Reference Range Interpretation Comments MCH (test code = MCH) 27.0 pg 27.0-31.0 [facility] HospitalZwmcadmFRUTROCHVN1386-79-43 10:45:00 Test Item Value Reference Range Interpretation Comments Hgb (test code = Hgb) 12.4 14.0-18.0 [facility] HospitalPxpefyyNONOOWRFIG9618-02-77 10:45:00 Test Item Value Reference Range Interpretation Comments Hgb (test code = Hgb) 12.4 14.0-18.0 [facility] HospitalAhaxcwcDIFPZJOLAT3360-70-43 10:45:00 Test Item Value Reference Range Interpretation Comments MCV (test code = MCV) 84.2 80.0-94.0 [facility] HospitalKrmjziaDQAIJWWGQD8453-41-49 10:45:00 Test Item Value Reference Range Interpretation Comments MCH (test code = MCH) 27.0 pg 27.0-31.0 [facility] HospitalOusauukAYSUCBJRPL7398-40-03 10:45:00 Test Item Value Reference Range Interpretation Comments Segs (test code = Segs) 70.2 45.0-75.0 [facility] HospitalFokwdcnOURTKRVLAI9703-74-86 10:45:00 Test Item Value Reference Range Interpretation Comments MCV (test code = MCV) 84.2 80.0-94.0 [facility] HospitalKijbgqfLSPLXWBOIH3329-11-04 10:45:00 Test Item Value Reference Range Interpretation Comments Eosinophils # (test code 0.3 See_Comment [A utomated message] The = Eosinophils #) system [employer] generated this result tra nsmitted reference range : <=0.5. The reference r delaney was not used to int erpret this result as normal/abnormal . [facility] HospitalOodwyinEUXDKORRMK9832-40-35 10:45:00 Test Item Value Reference Range Interpretation Comments Segs (test code = Segs) 70.2 45.0-75.0 [facility] HospitalVbaajqkEQRBMZQGYK4824-40-68 10:45:00 Test Item Value Reference Range Interpretation Comments Monocytes # (test code 0.5 See_Comment [Aut omated message] The = Monocytes #) system which generated this result tra nsmitted reference range : <=0.8. The reference r delaney was not used to int erpret this result as normal/abnormal . [facility] HospitalPabcopgOVFYAFYRGG6949-92-68 10:45:00 Test Item Value Reference Range Interpretation Comments Eosinophils # (test code 0.3 See_Comment [A utomated message] The = Eosinophils #) system [employer] generated this result tra nsmitted reference range : <=0.5. The reference r delaney was not used to int erpret this result as normal/abnormal . [facility] HospitalEwqpukcIKIMWRNTLY3400-24-36 10:45:00 Test Item Value Reference Range Interpretation Comments Monocytes (test code = Monocytes) 6.5 2.0-12.0 [facility] HospitalZazpmeuCELQZIURSH1476-95-98 10:45:00 Test Item Value Reference Range Interpretation Comments MCH (test code = MCH) 27.0 pg 27.0-31.0 [facility] HospitalJvphctrZYYHWKLBYA3022-96-11 10:45:00 Test Item Value Reference Range Interpretation Comments Monocytes # (test code 0.5 See_Comment [Aut omated message] The = Monocytes #) system which generated this result tra nsmitted reference range : <=0.8. The reference r delaney was not used to int erpret this result as normal/abnormal . [facility] HospitalLvontpjKGAJZRIWNS4658-66-98 10:45:00 Test Item Value Reference Range Interpretation Comments Basophils (test code = 0.3 See_Comment [Aut omated message] The Basophils) system which ge nerated this result tra nsmitted reference range : <=1.0. The reference r delaney was not used to int erpret this result as normal/abnormal . [facility] HospitalBqrqlgpMEPKBQTBCM3738-10-01 10:45:00 Test Item Value Reference Range Interpretation Comments Monocytes (test code = Monocytes) 6.5 2.0-12.0 [facility] HospitalHqefzgvGQJPTQOOGJ3137-14-48 10:45:00 Test Item Value Reference Range Interpretation Comments Segs-Bands # (test code = Segs-Bands #) 5.6 1.5-8.1 [facility] HospitalCwahxwwTPONOBOSDC5488-17-34 10:45:00 Test Item Value Reference Range Interpretation Comments Basophils (test code = 0.3 See_Comment [Aut omated message] The Basophils) system which ge nerated this result tra nsmitted reference range : <=1.0. The reference r delaney was not used to int erpret this result as normal/abnormal . [facility] HospitalOdzibhaCUGERHLTMR3067-18-41 10:45:00 Test Item Value Reference Range Interpretation Comments Eosinophils (test code = 3.4 See_Comment [A utomated message] The Eosinophils) system which ge nerated this result tra nsmitted reference range : <=4.0. The reference r delaney was not used to int erpret this result as normal/abnormal . [facility] HospitalLdnpcdlVRARNPAJLS0700-62-04 10:45:00 Test Item Value Reference Range Interpretation Comments Segs-Bands # (test code = Segs-Bands #) 5.6 1.5-8.1 [facility] HospitalLwtqzvtRABKHAXFOH0987-62-62 10:45:00 Test Item Value Reference Range Interpretation Comments Lymphocytes # (test code = Lymphocytes 1.6 1.0-5.5 #) [facility] HospitalMyrmswsNAHUONCQQY1158-81-09 10:45:00 Test Item Value Reference Range Interpretation Comments Lymphocytes (test code = Lymphocytes) 19.6 20.0-40.0 [facility] HospitalIdneymkDEGVONTPFA5195-26-47 10:45:00 Test Item Value Reference Range Interpretation Comments Eosinophils (test code = 3.4 See_Comment [A utomated message] The Eosinophils) system which ge nerated this result tra nsmitted reference range : <=4.0. The reference r delaney was not used to int erpret this result as normal/abnormal . [facility] HospitalItklkleQXUIWLWTFA3955-51-57 10:45:00 Test Item Value Reference Range Interpretation Comments MCH (test code = MCH) 27.0 pg 27.0-31.0 [facility] HospitalHwpapqlATKJPJQUIN6383-28-05 10:45:00 Test Item Value Reference Range Interpretation Comments Lymphocytes # (test code = Lymphocytes 1.6 1.0-5.5 #) [facility] HospitalGjkfpkpMDMKMIKGFY6861-05-81 10:45:00 Test Item Value Reference Range Interpretation Comments Lymphocytes (test code = Lymphocytes) 19.6 20.0-40.0 [facility] HospitalKzvqpoyYOPEYZFAUJ8291-02-45 10:45:00 Test Item Value Reference Range Interpretation Comments MCV (test code = MCV) 84.2 80.0-94.0 [facility] HospitalLqkjsuzSDPETTWKQY3876-51-89 10:45:00 Test Item Value Reference Range Interpretation Comments MCV (test code = MCV) 84.2 80.0-94.0 [facility] HospitalGlcazcgGTECARGTGR6840-54-75 10:45:00 Test Item Value Reference Range Interpretation Comments Segs (test code = Segs) 70.2 45.0-75.0 [facility] HospitalOatzgqxDMNDLFYDHR3411-36-45 10:45:00 Test Item Value Reference Range Interpretation Comments Segs (test code = Segs) 70.2 45.0-75.0 [facility] HospitalEwvcdxaYHVYLSLFRQ4784-24-05 10:45:00 Test Item Value Reference Range Interpretation Comments Eosinophils # (test code 0.3 See_Comment [A utomated message] The = Eosinophils #) system [employer] generated this result tra nsmitted reference range : <=0.5. The reference r delaney was not used to int erpret this result as normal/abnormal . [facility] HospitalAcppxrxXREXLTDYJK7189-49-80 10:45:00 Test Item Value Reference Range Interpretation Comments Eosinophils # (test code 0.3 See_Comment [A utomated message] The = Eosinophils #) system [employer] generated this result tra nsmitted reference range : <=0.5. The reference r delaney was not used to int erpret this result as normal/abnormal . [facility] HospitalFngcajxFVBVKBAHVL0761-82-36 10:45:00 Test Item Value Reference Range Interpretation Comments Monocytes # (test code 0.5 See_Comment [Aut omated message] The = Monocytes #) system which generated this result tra nsmitted reference range : <=0.8. The reference r delaney was not used to int erpret this result as normal/abnormal . [facility] HospitalQxldbmmOCGYJTSJPZ8740-03-72 10:45:00 Test Item Value Reference Range Interpretation Comments Monocytes (test code = Monocytes) 6.5 2.0-12.0 [facility] HospitalZtofqgkNYUYPXEFOK5483-28-49 10:45:00 Test Item Value Reference Range Interpretation Comments Monocytes # (test code 0.5 See_Comment [Aut omated message] The = Monocytes #) system which generated this result tra nsmitted reference range : <=0.8. The reference r delaney was not used to int erpret this result as normal/abnormal . [facility] HospitalGujhkiqYAKGIDOAQK9213-23-37 10:45:00 Test Item Value Reference Range Interpretation Comments Basophils (test code = 0.3 See_Comment [Aut omated message] The Basophils) system which ge nerated this result tra nsmitted reference range : <=1.0. The reference r delaney was not used to int erpret this result as normal/abnormal . [facility] HospitalOxubvxeHJOEVHVGAJ2198-45-74 10:45:00 Test Item Value Reference Range Interpretation Comments Monocytes (test code = Monocytes) 6.5 2.0-12.0 [facility] HospitalZpmrahcJLAWHQEFSX5416-94-00 10:45:00 Test Item Value Reference Range Interpretation Comments Segs-Bands # (test code = Segs-Bands #) 5.6 1.5-8.1 [facility] HospitalOfixjxxKDVLYBWDHZ0422-99-39 10:45:00 Test Item Value Reference Range Interpretation Comments Basophils (test code = 0.3 See_Comment [Aut omated message] The Basophils) system which ge nerated this result tra nsmitted reference range : <=1.0. The reference r delaney was not used to int erpret this result as normal/abnormal . [facility] HospitalEgnilifQYHDFJLFFF1465-86-48 10:45:00 Test Item Value Reference Range Interpretation Comments Eosinophils (test code = 3.4 See_Comment [A utomated message] The Eosinophils) system which ge nerated this result tra nsmitted reference range : <=4.0. The reference r delaney was not used to int erpret this result as normal/abnormal . [facility] HospitalCdpwbfnDVBQBWHEPZ0212-22-72 10:45:00 Test Item Value Reference Range Interpretation Comments Segs-Bands # (test code = Segs-Bands #) 5.6 1.5-8.1 [facility] HospitalWwwaiqwNHKRPOYZWF6089-13-35 10:45:00 Test Item Value Reference Range Interpretation Comments Lymphocytes # (test code = Lymphocytes 1.6 1.0-5.5 #) [facility] HospitalZpkcackFWXOFFLDPC7608-69-24 10:45:00 Test Item Value Reference Range Interpretation Comments Eosinophils (test code = 3.4 See_Comment [A utomated message] The Eosinophils) system which ge nerated this result tra nsmitted reference range : <=4.0. The reference r delaney was not used to int erpret this result as normal/abnormal . [facility] HospitalGxbcnwmKDPKLYBUMH9541-55-12 10:45:00 Test Item Value Reference Range Interpretation Comments Lymphocytes (test code = Lymphocytes) 19.6 20.0-40.0 [facility] HospitalCsozpzaGUIJLHKDRS5413-51-61 10:45:00 Test Item Value Reference Range Interpretation Comments Lymphocytes # (test code = Lymphocytes 1.6 1.0-5.5 #) [facility] HospitalTdksodwWHOPMBSCAY9903-45-24 10:45:00 Test Item Value Reference Range Interpretation Comments Lymphocytes (test code = Lymphocytes) 19.6 20.0-40.0 [facility]2017-01-25 10:45:00 Test Item Value Reference Range Interpretation Comments Magnesium Lvl (test code = Magnesium 1.9 1.8-2.4 Lvl) [facility]2017-01-25 10:45:00 Test Item Value Reference Range Interpretation Comments Magnesium Lvl (test code = Magnesium 1.9 1.8-2.4 Lvl) [facility]2017-01-25 10:45:00 Test Item Value Reference Range Interpretation Comments Calcium Lvl (test code = Calcium Lvl) 9.2 8.5-10.5 [facility]2017-01-25 10:45:00 Test Item Value Reference Range Interpretation Comments Calcium Lvl (test code = Calcium Lvl) 9.2 8.5-10.5 [facility]2017-01-25 10:45:00 Test Item Value Reference Range Interpretation Comments eGFR (test code = eGFR) [facility]2017-01-25 10:45:00 Test Item Value Reference Range Interpretation Comments eGFR (test code = eGFR) 85 [facility]2017-01-25 10:45:00 Test Item Value Reference Range Interpretation Comments BUN (test code = BUN) 14 02-12 [facility]2017-01-25 10:45:00 Test Item Value Reference Range Interpretation Comments BUN (test code = BUN) 14 02-12 [facility]2017-01-25 10:45:00 Test Item Value Reference Range Interpretation Comments Glucose Lvl (test code = Glucose Lvl) 166 70-99 [facility]2017-01-25 10:45:00 Test Item Value Reference Range Interpretation Comments Glucose Lvl (test code = Glucose Lvl) 166 70-99 [facility]2017-01-25 10:45:00 Test Item Value Reference Range Interpretation Comments Creatinine Lvl (test code = Creatinine 0.92 0.50-1.40 Lvl) [facility]2017-01-25 10:45:00 Test Item Value Reference Range Interpretation Comments Creatinine Lvl (test code = Creatinine 0.92 0.50-1.40 Lvl) [facility]2017-01-25 10:45:00 Test Item Value Reference Range Interpretation Comments Sodium Lvl (test code = Sodium Lvl) 140 135-145 [facility]2017-01-25 10:45:00 Test Item Value Reference Range Interpretation Comments Sodium Lvl (test code = Sodium Lvl) 140 135-145 [facility]2017-01-25 10:45:00 Test Item Value Reference Range Interpretation Comments Potassium Lvl (test code = Potassium 4.1 3.5-5.1 Lvl) [facility]2017-01-25 10:45:00 Test Item Value Reference Range Interpretation Comments Potassium Lvl (test code = Potassium 4.1 3.5-5.1 Lvl) [facility]2017-01-25 10:45:00 Test Item Value Reference Range Interpretation Comments Chloride Lvl (test code = Chloride Lvl) 102 95-109 [facility]2017-01-25 10:45:00 Test Item Value Reference Range Interpretation Comments Chloride Lvl (test code = Chloride Lvl) 102 95-109 [facility]2017-01-25 10:45:00 Test Item Value Reference Range Interpretation Comments CO2 (test code = CO2) 29 24-32 [facility]2017-01-25 10:45:00 Test Item Value Reference Range Interpretation Comments CO2 (test code = CO2) 29 24-32 [facility]2017-01-25 10:45:00 Test Item Value Reference Range Interpretation Comments AGAP (test code = AGAP) 13.1 10.0-20.0 [facility]2017-01-25 10:45:00 Test Item Value Reference Range Interpretation Comments AGAP (test code = AGAP) 13.1 10.0-20.0 [facility]2017-01-25 10:45:00 Test Item Value Reference Range Interpretation Comments Phosphorus (test code = Phosphorus) 3.7 2.5-4.5 [facility]2017-01-25 10:45:00 Test Item Value Reference Range Interpretation Comments Phosphorus (test code = Phosphorus) 3.7 2.5-4.5 [facility] HospitalJsisfpzTFVVOBRQKM7156-19-30 10:45:00 Test Item Value Reference Range Interpretation Comments Platelet (test code = Platelet) 158 133-450 [facility] HospitalSitocaqZHCOKTEXPV7542-53-54 10:45:00 Test Item Value Reference Range Interpretation Comments Platelet (test code = Platelet) 158 133-450 [facility] HospitalMsakwenYJCQBONNVY2819-43-62 10:45:00 Test Item Value Reference Range Interpretation Comments MPV (test code = MPV) 9.1 7.4-10.4 [facility] HospitalDzvrheqIVXOBNCRZE5599-36-52 10:45:00 Test Item Value Reference Range Interpretation Comments MPV (test code = MPV) 9.1 7.4-10.4 [facility] HospitalUaazgmdMUNRFGZRMG1882-05-51 10:45:00 Test Item Value Reference Range Interpretation Comments RDW (test code = RDW) 17.0 11.5-14.5 [facility] HospitalRuskuigKJWQUOWTSD6424-35-19 10:45:00 Test Item Value Reference Range Interpretation Comments RDW (test code = RDW) 17.0 11.5-14.5 [facility] HospitalPrfbegvQXXMMSGJSC7100-77-11 10:45:00 Test Item Value Reference Range Interpretation Comments MCHC (test code = MCHC) 32.1 32.0-36.0 [facility] [facility]JDBQKT8322-43-47 10:45:00 Test Item Value Reference Range Interpretation Comments MCHC (test code = MCHC) 32.1 32.0-36.0 [facility]Z0091[facility]29-31 10:45:00 Test Item Value Reference Range Interpretation Comments Hct (test code = Hct) 38.7 42.0-54.0 [facility]2017-01-24 16:29:00 Test Item Value Reference Range Interpretation Comments eGFR (test code = eGFR) 74 [facility]2017-01-24 16:29:00 Test Item Value Reference Range Interpretation Comments Creatinine Lvl (test code = Creatinine 1.03 0.50-1.40 Lvl) [facility]2017-01-24 16:29:00 Test Item Value Reference Range Interpretation Comments Sodium Lvl (test code = Sodium Lvl) 139 135-145 [facility]2017-01-24 16:29:00 Test Item Value Reference Range Interpretation Comments eGFR (test code = eGFR) 74 [facility]2017-01-24 16:29:00 Test Item Value Reference Range Interpretation Comments Potassium Lvl (test code = Potassium 4.3 3.5-5.1 Lvl) [facility]2017-01-24 16:29:00 Test Item Value Reference Range Interpretation Comments Creatinine Lvl (test code = Creatinine 1.03 0.50-1.40 Lvl) [facility]2017-01-24 16:29:00 Test Item Value Reference Range Interpretation Comments Chloride Lvl (test code = Chloride Lvl) 103 95-109 [facility]2017-01-24 16:29:00 Test Item Value Reference Range Interpretation Comments Sodium Lvl (test code = Sodium Lvl) 139 135-145 [facility]2017-01-24 16:29:00 Test Item Value Reference Range Interpretation Comments CO2 (test code = CO2) 29 24-32 [facility]2017-01-24 16:29:00 Test Item Value Reference Range Interpretation Comments Potassium Lvl (test code = Potassium 4.3 3.5-5.1 Lvl) [facility]2017-01-24 16:29:00 Test Item Value Reference Range Interpretation Comments Calcium Lvl (test code = Calcium Lvl) 8.6 8.5-10.5 [facility]2017-01-24 16:29:00 Test Item Value Reference Range Interpretation Comments Chloride Lvl (test code = Chloride Lvl) 103 95-109 [facility]2017-01-24 16:29:00 Test Item Value Reference Range Interpretation Comments BUN (test code = BUN) 17 02-12 [facility]2017-01-24 16:29:00 Test Item Value Reference Range Interpretation Comments CO2 (test code = CO2) 29 -32 [facility]2017-01-24 16:29:00 Test Item Value Reference Range Interpretation Comments Glucose Lvl (test code = Glucose Lvl) 226 70-99 [facility]2017-01-24 16:29:00 Test Item Value Reference Range Interpretation Comments Calcium Lvl (test code = Calcium Lvl) 8.6 8.5-10.5 [facility]2017-01-24 16:29:00 Test Item Value Reference Range Interpretation Comments AGAP (test code = AGAP) 11.3 10.0-20.0 [facility]2017-01-24 16:29:00 Test Item Value Reference Range Interpretation Comments BUN (test code = BUN) 17 02-12 [facility]2017-01-24 16:29:00 Test Item Value Reference Range Interpretation Comments Glucose Lvl (test code = Glucose Lvl) 226 70-99 [facility]2017-01-24 16:29:00 Test Item Value Reference Range Interpretation Comments AGAP (test code = AGAP) 11.3 10.0-20.0 [facility]2017-01-24 16:29:00 Test Item Value Reference Range Interpretation Comments eGFR (test code = eGFR) 74 [facility]2017-01-24 16:29:00 Test Item Value Reference Range Interpretation Comments Creatinine Lvl (test code = Creatinine 1.03 0.50-1.40 Lvl) [facility]2017-01-24 16:29:00 Test Item Value Reference Range Interpretation Comments eGFR (test code = eGFR) 74 [facility]2017-01-24 16:29:00 Test Item Value Reference Range Interpretation Comments Sodium Lvl (test code = Sodium Lvl) 139 135-145 [facility]2017-01-24 16:29:00 Test Item Value Reference Range Interpretation Comments Creatinine Lvl (test code = Creatinine 1.03 0.50-1.40 Lvl) [facility]2017-01-24 16:29:00 Test Item Value Reference Range Interpretation Comments Potassium Lvl (test code = Potassium 4.3 3.5-5.1 Lvl) [facility]2017-01-24 16:29:00 Test Item Value Reference Range Interpretation Comments Chloride Lvl (test code = Chloride Lvl) 103 95-109 [facility]2017-01-24 16:29:00 Test Item Value Reference Range Interpretation Comments Sodium Lvl (test code = Sodium Lvl) 139 135-145 [facility]2017-01-24 16:29:00 Test Item Value Reference Range Interpretation Comments CO2 (test code = CO2) [facility]2017-01-24 16:29:00 Test Item Value Reference Range Interpretation Comments Potassium Lvl (test code = Potassium 4.3 3.5-5.1 Lvl) [facility]2017-01-24 16:29:00 Test Item Value Reference Range Interpretation Comments Calcium Lvl (test code = Calcium Lvl) 8.6 8.5-10.5 [facility]2017-01-24 16:29:00 Test Item Value Reference Range Interpretation Comments Chloride Lvl (test code = Chloride Lvl) 103 95-109 [facility]2017-01-24 16:29:00 Test Item Value Reference Range Interpretation Comments BUN (test code = BUN) 17 - [facility]2017-01-24 16:29:00 Test Item Value Reference Range Interpretation Comments CO2 (test code = CO2) [facility]2017-01-24 16:29:00 Test Item Value Reference Range Interpretation Comments Glucose Lvl (test code = Glucose Lvl) 226 70-99 [facility]2017-01-24 16:29:00 Test Item Value Reference Range Interpretation Comments Calcium Lvl (test code = Calcium Lvl) 8.6 8.5-10.5 [facility]2017-01-24 16:29:00 Test Item Value Reference Range Interpretation Comments AGAP (test code = AGAP) 11.3 10.0-20.0 [facility]2017-01-24 16:29:00 Test Item Value Reference Range Interpretation Comments BUN (test code = BUN) 17 7-22 [facility]2017-01-24 16:29:00 Test Item Value Reference Range Interpretation Comments Glucose Lvl (test code = Glucose Lvl) 226 70-99 [facility]2017-01-24 16:29:00 Test Item Value Reference Range Interpretation Comments AGAP (test code = AGAP) 11.3 10.0-20.0 [facility]2017-01-24 10:01:00 Test Item Value Reference Range Interpretation Comments Phosphorus (test code = Phosphorus) 4.2 2.5-4.5 [facility]2017-01-24 10:01:00 Test Item Value Reference Range Interpretation Comments Globulin (test code = Globulin) 3.6 2.7-4.2 [facility]2017-01-24 10:01:00 Test Item Value Reference Range Interpretation Comments AGAP (test code = AGAP) 10.8 10.0-20.0 [facility]2017-01-24 10:01:00 Test Item Value Reference Range Interpretation Comments B/C Ratio (test code = B/C Ratio) 17 6-25 [facility]2017-01-24 10:01:00 Test Item Value Reference Range Interpretation Comments Phosphorus (test code = Phosphorus) 4.2 2.5-4.5 [facility]2017-01-24 10:01:00 Test Item Value Reference Range Interpretation Comments A/G Ratio (test code = A/G Ratio) 0.8 0.7-1.6 [facility]2017-01-24 10:01:00 Test Item Value Reference Range Interpretation Comments Globulin (test code = Globulin) 3.6 2.7-4.2 [facility]2017-01-24 10:01:00 Test Item Value Reference Range Interpretation Comments eGFR (test code = eGFR) 69 [facility]2017-01-24 10:01:00 Test Item Value Reference Range Interpretation Comments AGAP (test code = AGAP) 10.8 10.0-20.0 [facility]2017-01-24 10:01:00 Test Item Value Reference Range Interpretation Comments Creatinine Lvl (test code = Creatinine 1.09 0.50-1.40 Lvl) [facility]2017-01-24 10:01:00 Test Item Value Reference Range Interpretation Comments B/C Ratio (test code = B/C Ratio) 17 6-25 [facility]2017-01-24 10:01:00 Test Item Value Reference Range Interpretation Comments Sodium Lvl (test code = Sodium Lvl) 138 135-145 [facility]2017-01-24 10:01:00 Test Item Value Reference Range Interpretation Comments A/G Ratio (test code = A/G Ratio) 0.8 0.7-1.6 [facility]2017-01-24 10:01:00 Test Item Value Reference Range Interpretation Comments BUN (test code = BUN) 02-12 [facility]2017-01-24 10:01:00 Test Item Value Reference Range Interpretation Comments Alk Phos (test code = Alk Phos) 82 39-136 [facility]2017-01-24 10:01:00 Test Item Value Reference Range Interpretation Comments eGFR (test code = eGFR) 69 [facility]2017-01-24 10:01:00 Test Item Value Reference Range Interpretation Comments Bili Total (test code = Bili Total) 0.4 0.2-1.3 [facility]2017-01-24 10:01:00 Test Item Value Reference Range Interpretation Comments Creatinine Lvl (test code = Creatinine 1.09 0.50-1.40 Lvl) [facility]2017-01-24 10:01:00 Test Item Value Reference Range Interpretation Comments AST (test code = AST) 16 See_Comment [Auto mated message] The system which ge nerated this result transmit óscar reference range : <=37. The reference range was not used to interpr et this result as kristine l/abnormal. [facility]2017-01-24 10:01:00 Test Item Value Reference Range Interpretation Comments Sodium Lvl (test code = Sodium Lvl) 138 135-145 [facility]2017-01-24 10:01:00 Test Item Value Reference Range Interpretation Comments Total Protein (test code = Total 6.5 6.4-8.4 Protein) [facility]2017-01-24 10:01:00 Test Item Value Reference Range Interpretation Comments BUN (test code = BUN) 02-12 [facility]2017-01-24 10:01:00 Test Item Value Reference Range Interpretation Comments Calcium Lvl (test code = Calcium Lvl) 8.6 8.5-10.5 [facility]2017-01-24 10:01:00 Test Item Value Reference Range Interpretation Comments Alk Phos (test code = Alk Phos) 82 39-136 [facility]2017-01-24 10:01:00 Test Item Value Reference Range Interpretation Comments Potassium Lvl (test code = Potassium 4.8 3.5-5.1 Lvl) [facility]2017-01-24 10:01:00 Test Item Value Reference Range Interpretation Comments Bili Total (test code = Bili Total) 0.4 0.2-1.3 [facility]2017-01-24 10:01:00 Test Item Value Reference Range Interpretation Comments Chloride Lvl (test code = Chloride Lvl) 104 95-109 [facility]2017-01-24 10:01:00 Test Item Value Reference Range Interpretation Comments AST (test code = AST) 16 See_Comment [Auto mated message] The system which ge nerated this result transmit óscar reference range : <=37. The reference range was not used to interpr et this result as kristine l/abnormal. [facility]2017-01-24 10:01:00 Test Item Value Reference Range Interpretation Comments CO2 (test code = CO2) 28 24-32 [facility]2017-01-24 10:01:00 Test Item Value Reference Range Interpretation Comments Total Protein (test code = Total 6.5 6.4-8.4 Protein) [facility]2017-01-24 10:01:00 Test Item Value Reference Range Interpretation Comments Albumin Lvl (test code = Albumin Lvl) 2.9 3.5-5.0 [facility]2017-01-24 10:01:00 Test Item Value Reference Range Interpretation Comments Calcium Lvl (test code = Calcium Lvl) 8.6 8.5-10.5 [facility]2017-01-24 10:01:00 Test Item Value Reference Range Interpretation Comments ALT (test code = ALT) 12 See_Comment [Auto mated message] The system which ge nerated this result transmit óscar reference range : <=65. The reference range was not used to interpr et this result as kristine l/abnormal. [facility]2017-01-24 10:01:00 Test Item Value Reference Range Interpretation Comments Potassium Lvl (test code = Potassium 4.8 3.5-5.1 Lvl) [facility]2017-01-24 10:01:00 Test Item Value Reference Range Interpretation Comments Chloride Lvl (test code = Chloride Lvl) 104 95-109 [facility]2017-01-24 10:01:00 Test Item Value Reference Range Interpretation Comments Glucose Lvl (test code = Glucose Lvl) 220 70-99 [facility]2017-01-24 10:01:00 Test Item Value Reference Range Interpretation Comments CO2 (test code = CO2) 28 24-32 [facility]2017-01-24 10:01:00 Test Item Value Reference Range Interpretation Comments Magnesium Lvl (test code = Magnesium 1.9 1.8-2.4 Lvl) [facility]2017-01-24 10:01:00 Test Item Value Reference Range Interpretation Comments Albumin Lvl (test code = Albumin Lvl) 2.9 3.5-5.0 [facility] HospitalRposzmkMLCETFVERJ0813-26-21 10:01:00 Test Item Value Reference Range Interpretation Comments INR (test code = INR) 1.18 0.85-1.17 [facility] HospitalQrbohlrXMCKQEZNWX2453-54-66 10:01:00 Test Item Value Reference Range Interpretation Comments PT (test code = PT) 15.3 s 12.0-14.7 [facility]2017-01-24 10:01:00 Test Item Value Reference Range Interpretation Comments ALT (test code = ALT) 12 See_Comment [Auto mated message] The system which ge nerated this result transmit óscar reference range : <=65. The reference range was not used to interpr et this result as kristine l/abnormal. [facility] HospitalEeluwrtRJZIGIDQGF2904-65-30 10:01:00 Test Item Value Reference Range Interpretation Comments PTT (test code = PTT) 66.0 s 22.9-35.8 [facility]2017-01-24 10:01:00 Test Item Value Reference Range Interpretation Comments Glucose Lvl (test code = Glucose Lvl) 220 70-99 [facility] HospitalGbbsptoSNEVDLCVIZ3622-70-22 10:01:00 Test Item Value Reference Range Interpretation Comments Platelet (test code = Platelet) 141 133-450 [facility]2017-01-24 10:01:00 Test Item Value Reference Range Interpretation Comments Magnesium Lvl (test code = Magnesium 1.9 1.8-2.4 Lvl) [facility] HospitalWfioyvhIMPEFKICWU3309-43-22 10:01:00 Test Item Value Reference Range Interpretation Comments MPV (test code = MPV) 8.5 7.4-10.4 [facility] HospitalSpleuabNTWJQPOAYA2672-30-69 10:01:00 Test Item Value Reference Range Interpretation Comments INR (test code = INR) 1.18 0.85-1.17 [facility] HospitalWkmblqfTSLWJCLFJK6515-23-84 10:01:00 Test Item Value Reference Range Interpretation Comments RBC (test code = RBC) 4.14 4.70-6.10 [facility] HospitalJclwkoqGXYGDNIUEB2658-02-18 10:01:00 Test Item Value Reference Range Interpretation Comments PT (test code = PT) 15.3 s 12.0-14.7 [facility] HospitalNzcebkoMAMNUCMTRK6992-33-41 10:01:00 Test Item Value Reference Range Interpretation Comments Hct (test code = Hct) 34.6 42.0-54.0 [facility] HospitalFeulukvETMBFRBWMP0830-14-48 10:01:00 Test Item Value Reference Range Interpretation Comments PTT (test code = PTT) 66.0 s 22.9-35.8 [facility] HospitalNtqatduGQAHFIXKDZ8290-71-03 10:01:00 Test Item Value Reference Range Interpretation Comments WBC (test code = WBC) 6.9 3.7-10.4 [facility] HospitalIcbqramZPDUSMXLLW0512-58-89 10:01:00 Test Item Value Reference Range Interpretation Comments Platelet (test code = Platelet) 141 133-450 [facility] HospitalJtinzthUGGGVDVBVB2549-51-85 10:01:00 Test Item Value Reference Range Interpretation Comments MCV (test code = MCV) 83.7 80.0-94.0 [facility] HospitalCxyztjmGPNTDRCRDB3274-67-47 10:01:00 Test Item Value Reference Range Interpretation Comments MPV (test code = MPV) 8.5 7.4-10.4 [facility] HospitalEaftndqJYGWIMVOYY9038-61-88 10:01:00 Test Item Value Reference Range Interpretation Comments RDW (test code = RDW) 17.4 11.5-14.5 [facility] HospitalErnkgtxRHYHPUFZOK1739-86-04 10:01:00 Test Item Value Reference Range Interpretation Comments RBC (test code = RBC) 4.14 4.70-6.10 [facility] HospitalFfdmgifBGBFVQEXZI4446-78-02 10:01:00 Test Item Value Reference Range Interpretation Comments MCHC (test code = MCHC) 33.0 32.0-36.0 [facility] HospitalCekhidpKUSSFPXGHL7295-14-41 10:01:00 Test Item Value Reference Range Interpretation Comments Hct (test code = Hct) 34.6 42.0-54.0 [facility] HospitalKsgkmonHLBJNENBHE6378-94-74 10:01:00 Test Item Value Reference Range Interpretation Comments Hgb (test code = Hgb) 11.4 14.0-18.0 [facility] HospitalCtrnvbhPREUOMXRME7176-47-32 10:01:00 Test Item Value Reference Range Interpretation Comments WBC (test code = WBC) 6.9 3.7-10.4 [facility] HospitalDdfwfnrHWVACFWTKX7607-31-44 10:01:00 Test Item Value Reference Range Interpretation Comments MCH (test code = MCH) 27.7 pg 27.0-31.0 [facility] HospitalBlcsnqeAPAYASADMR8904-39-49 10:01:00 Test Item Value Reference Range Interpretation Comments MCV (test code = MCV) 83.7 80.0-94.0 [facility] HospitalGhzvccePZSRNYDJYJ9468-29-60 10:01:00 Test Item Value Reference Range Interpretation Comments Monocytes # (test code 0.5 See_Comment [Aut omated message] The = Monocytes #) system which generated this result tra nsmitted reference range : <=0.8. The reference r delaney was not used to int erpret this result as normal/abnormal . [facility] HospitalQpvwbqiXSVZTCTSYI9956-03-22 10:01:00 Test Item Value Reference Range Interpretation Comments RDW (test code = RDW) 17.4 11.5-14.5 [facility] HospitalJspeotrADQVLVMEOF5863-00-24 10:01:00 Test Item Value Reference Range Interpretation Comments Lymphocytes # (test code = Lymphocytes 2.1 1.0-5.5 #) [facility] HospitalDaedaygMAVFJYKBON7639-26-27 10:01:00 Test Item Value Reference Range Interpretation Comments MCHC (test code = MCHC) 33.0 32.0-36.0 [facility] HospitalPlcikczSBEUUXQSFP0001-03-87 10:01:00 Test Item Value Reference Range Interpretation Comments Eosinophils # (test code 0.3 See_Comment [A utomated message] The = Eosinophils #) system whic h generated this result tra nsmitted reference range : <=0.5. The reference r delaney was not used to int erpret this result as normal/abnormal . [facility] HospitalAacniuuSTYHCUDJBP0897-11-59 10:01:00 Test Item Value Reference Range Interpretation Comments Hgb (test code = Hgb) 11.4 14.0-18.0 [facility] HospitalNmrttxrFVJBHPMGZJ1800-32-41 10:01:00 Test Item Value Reference Range Interpretation Comments Segs-Bands # (test code = Segs-Bands #) 4.0 1.5-8.1 [facility] HospitalKcerjbeFDCLNWLTKC9923-33-99 10:01:00 Test Item Value Reference Range Interpretation Comments MCH (test code = MCH) 27.7 pg 27.0-31.0 [facility] HospitalIorcprcRACYOCWONJ8081-67-64 10:01:00 Test Item Value Reference Range Interpretation Comments Monocytes (test code = Monocytes) 6.8 2.0-12.0 [facility] HospitalUoxwtwvRABQGURREI5741-75-36 10:01:00 Test Item Value Reference Range Interpretation Comments Monocytes # (test code 0.5 See_Comment [Aut omated message] The = Monocytes #) system which generated this result tra nsmitted reference range : <=0.8. The reference r delaney was not used to int erpret this result as normal/abnormal . [facility] HospitalIokrggqBFNQUEKDHK5999-32-98 10:01:00 Test Item Value Reference Range Interpretation Comments Basophils (test code = 0.4 See_Comment [Aut omated message] The Basophils) system which ge nerated this result tra nsmitted reference range : <=1.0. The reference r delaney was not used to int erpret this result as normal/abnormal . [facility] HospitalIzmbhidQQQHXFGLBT0927-49-99 10:01:00 Test Item Value Reference Range Interpretation Comments Lymphocytes # (test code = Lymphocytes 2.1 1.0-5.5 #) [facility] HospitalEpstrwiOHCQCHRCAY3655-24-37 10:01:00 Test Item Value Reference Range Interpretation Comments Eosinophils (test code = 4.3 See_Comment [A utomated message] The Eosinophils) system which ge nerated this result tra nsmitted reference range : <=4.0. The reference r delaney was not used to int erpret this result as normal/abnormal . [facility] HospitalAjpiyasZAUKZGPTDR9920-90-73 10:01:00 Test Item Value Reference Range Interpretation Comments Eosinophils # (test code 0.3 See_Comment [A utomated message] The = Eosinophils #) system whic h generated this result tra nsmitted reference range : <=0.5. The reference r delaney was not used to int erpret this result as normal/abnormal . [facility] HospitalGojrrunXKNYBQBOQI0617-46-05 10:01:00 Test Item Value Reference Range Interpretation Comments Lymphocytes (test code = Lymphocytes) 30.0 20.0-40.0 [facility] HospitalDmvhdexEEAKAYOEKG8260-58-79 10:01:00 Test Item Value Reference Range Interpretation Comments Segs-Bands # (test code = Segs-Bands #) 4.0 1.5-8.1 [facility] HospitalCcrjmgwNHZJREWRSC2367-91-29 10:01:00 Test Item Value Reference Range Interpretation Comments Segs (test code = Segs) 58.5 45.0-75.0 [facility] HospitalTubjlisEQQAAMPVTL9428-99-69 10:01:00 Test Item Value Reference Range Interpretation Comments Monocytes (test code = Monocytes) 6.8 2.0-12.0 [facility]2017-01-24 10:01:00 Test Item Value Reference Range Interpretation Comments Ca Ion WB (test code = Ca Ion WB) 1.11 1.05-1.25 [facility] HospitalGkxqsxfGUREKBLMBC6388-25-37 10:01:00 Test Item Value Reference Range Interpretation Comments Basophils (test code = 0.4 See_Comment [Aut omated message] The Basophils) system which ge nerated this result tra nsmitted reference range : <=1.0. The reference r delaney was not used to int erpret this result as normal/abnormal . [facility]2017-01-24 10:01:00 Test Item Value Reference Range Interpretation Comments Ca Norm WB (test code = Ca Norm WB) 1.11 1.05-1.25 [facility] HospitalDgvkzmiZUPYZPXRIJ8413-16-78 10:01:00 Test Item Value Reference Range Interpretation Comments Eosinophils (test code = 4.3 See_Comment [A utomated message] The Eosinophils) system which ge nerated this result tra nsmitted reference range : <=4.0. The reference r delaney was not used to int erpret this result as normal/abnormal . [facility] HospitalOfufbopIGMCCVCOWY1404-33-43 10:01:00 Test Item Value Reference Range Interpretation Comments Lymphocytes (test code = Lymphocytes) 30.0 20.0-40.0 [facility] HospitalMyzdwyfHFMBUKVEZY4112-23-19 10:01:00 Test Item Value Reference Range Interpretation Comments Segs (test code = Segs) 58.5 45.0-75.0 [facility]2017-01-24 10:01:00 Test Item Value Reference Range Interpretation Comments Ca Ion WB (test code = Ca Ion WB) 1.11 1.05-1.25 [facility]2017-01-24 10:01:00 Test Item Value Reference Range Interpretation Comments Ca Norm WB (test code = Ca Norm WB) 1.11 1.05-1.25 [facility]2017-01-24 10:01:00 Test Item Value Reference Range Interpretation Comments Phosphorus (test code = Phosphorus) 4.2 2.5-4.5 [facility]2017-01-24 10:01:00 Test Item Value Reference Range Interpretation Comments Globulin (test code = Globulin) 3.6 2.7-4.2 [facility]2017-01-24 10:01:00 Test Item Value Reference Range Interpretation Comments AGAP (test code = AGAP) 10.8 10.0-20.0 [facility]2017-01-24 10:01:00 Test Item Value Reference Range Interpretation Comments Phosphorus (test code = Phosphorus) 4.2 2.5-4.5 [facility]2017-01-24 10:01:00 Test Item Value Reference Range Interpretation Comments B/C Ratio (test code = B/C Ratio) 17 01-16 [facility]2017-01-24 10:01:00 Test Item Value Reference Range Interpretation Comments Globulin (test code = Globulin) 3.6 2.7-4.2 [facility] [facility]2017-01-24 10:01:00 Test Item Value Reference Range Interpretation Comments A/G Ratio (test code = A/G Ratio) 0.8 0.7-1.6 [facility]2017-01-24 10:01:00 Test Item Value Reference Range Interpretation Comments AGAP (test code = AGAP) 10.8 10.0-20.0 [facility]2017-01-24 10:01:00 Test Item Value Reference Range Interpretation Comments eGFR (test code = eGFR) 69 [facility]2017-01-24 10:01:00 Test Item Value Reference Range Interpretation Comments B/C Ratio (test code = B/C Ratio) 17 01-16 [facility]2017-01-24 10:01:00 Test Item Value Reference Range Interpretation Comments Creatinine Lvl (test code = Creatinine 1.09 0.50-1.40 Lvl) [facility]2017-01-24 10:01:00 Test Item Value Reference Range Interpretation Comments A/G Ratio (test code = A/G Ratio) 0.8 0.7-1.6 [facility]2017-01-24 10:01:00 Test Item Value Reference Range Interpretation Comments Sodium Lvl (test code = Sodium Lvl) 138 135-145 [facility]2017-01-24 10:01:00 Test Item Value Reference Range Interpretation Comments eGFR (test code = eGFR) 69 [facility]2017-01-24 10:01:00 Test Item Value Reference Range Interpretation Comments BUN (test code = BUN) 19 02-12 [facility]2017-01-24 10:01:00 Test Item Value Reference Range Interpretation Comments Creatinine Lvl (test code = Creatinine 1.09 0.50-1.40 Lvl) [facility]2017-01-24 10:01:00 Test Item Value Reference Range Interpretation Comments Alk Phos (test code = Alk Phos) 82 39-136 [facility]2017-01-24 10:01:00 Test Item Value Reference Range Interpretation Comments Sodium Lvl (test code = Sodium Lvl) 138 135-145 [facility]2017-01-24 10:01:00 Test Item Value Reference Range Interpretation Comments Bili Total (test code = Bili Total) 0.4 0.2-1.3 [facility]2017-01-24 10:01:00 Test Item Value Reference Range Interpretation Comments BUN (test code = BUN) 19 7-22 [facility]2017-01-24 10:01:00 Test Item Value Reference Range Interpretation Comments AST (test code = AST) 16 See_Comment [Auto mated message] The system which ge nerated this result transmit óscar reference range : <=37. The reference range was not used to interpr et this result as kristine l/abnormal. [facility]2017-01-24 10:01:00 Test Item Value Reference Range Interpretation Comments Alk Phos (test code = Alk Phos) 82 39-136 [facility]2017-01-24 10:01:00 Test Item Value Reference Range Interpretation Comments Total Protein (test code = Total 6.5 6.4-8.4 Protein) [facility]2017-01-24 10:01:00 Test Item Value Reference Range Interpretation Comments Bili Total (test code = Bili Total) 0.4 0.2-1.3 [facility]2017-01-24 10:01:00 Test Item Value Reference Range Interpretation Comments Calcium Lvl (test code = Calcium Lvl) 8.6 8.5-10.5 [facility]2017-01-24 10:01:00 Test Item Value Reference Range Interpretation Comments Potassium Lvl (test code = Potassium 4.8 3.5-5.1 Lvl) [facility]2017-01-24 10:01:00 Test Item Value Reference Range Interpretation Comments AST (test code = AST) 16 See_Comment [Auto mated message] The system which ge nerated this result transmit óscar reference range : <=37. The reference range was not used to interpr et this result as kristine l/abnormal. [facility]2017-01-24 10:01:00 Test Item Value Reference Range Interpretation Comments Chloride Lvl (test code = Chloride Lvl) 104 95-109 [facility]2017-01-24 10:01:00 Test Item Value Reference Range Interpretation Comments Total Protein (test code = Total 6.5 6.4-8.4 Protein) [facility]2017-01-24 10:01:00 Test Item Value Reference Range Interpretation Comments CO2 (test code = CO2) 28 24-32 [facility]2017-01-24 10:01:00 Test Item Value Reference Range Interpretation Comments Calcium Lvl (test code = Calcium Lvl) 8.6 8.5-10.5 [facility]2017-01-24 10:01:00 Test Item Value Reference Range Interpretation Comments Albumin Lvl (test code = Albumin Lvl) 2.9 3.5-5.0 [facility]2017-01-24 10:01:00 Test Item Value Reference Range Interpretation Comments Potassium Lvl (test code = Potassium 4.8 3.5-5.1 Lvl) [facility]2017-01-24 10:01:00 Test Item Value Reference Range Interpretation Comments ALT (test code = ALT) 12 See_Comment [Auto mated message] The system which ge nerated this result transmit óscar reference range : <=65. The reference range was not used to interpr et this result as kristine l/abnormal. [facility]2017-01-24 10:01:00 Test Item Value Reference Range Interpretation Comments Chloride Lvl (test code = Chloride Lvl) 104 95-109 [facility]2017-01-24 10:01:00 Test Item Value Reference Range Interpretation Comments Glucose Lvl (test code = Glucose Lvl) 220 70-99 [facility]2017-01-24 10:01:00 Test Item Value Reference Range Interpretation Comments CO2 (test code = CO2) 28 [facility]2017-01-24 10:01:00 Test Item Value Reference Range Interpretation Comments Magnesium Lvl (test code = Magnesium 1.9 1.8-2.4 Lvl) [facility]2017-01-24 10:01:00 Test Item Value Reference Range Interpretation Comments Albumin Lvl (test code = Albumin Lvl) 2.9 3.5-5.0 [facility]qmkbrVZMUEZZGJI1069-37-16 10:01:00 Test Item Value Reference Range Interpretation Comments INR (test code = INR) 1.18 0.85-1.17 [facility]2017-01-24 10:01:00 Test Item Value Reference Range Interpretation Comments ALT (test code = ALT) 12 See_Comment [Auto mated message] The system which ge nerated this result transmit óscar reference range : <=65. The reference range was not used to interpr et this result as kristine l/abnormal. [facility]QpjhimtSQOJDONRTC6007-39-41 10:01:00 Test Item Value Reference Range Interpretation Comments PT (test code = PT) 15.3 s 12.0-14.7 [facility]2017-01-24 10:01:00 Test Item Value Reference Range Interpretation Comments Glucose Lvl (test code = Glucose Lvl) 220 70-99 [facility] HospitalImamzfkAOVZRWIMDD5876-75-20 10:01:00 Test Item Value Reference Range Interpretation Comments PTT (test code = PTT) 66.0 s 22.9-35.8 [facility]2017-01-24 10:01:00 Test Item Value Reference Range Interpretation Comments Magnesium Lvl (test code = Magnesium 1.9 1.8-2.4 Lvl) [facility] HospitalPzvternIUBNOTPTYM5039-41-04 10:01:00 Test Item Value Reference Range Interpretation Comments Platelet (test code = Platelet) 141 133-450 [facility] HospitalWlybdidICZJPABYYM0900-40-10 10:01:00 Test Item Value Reference Range Interpretation Comments MPV (test code = MPV) 8.5 7.4-10.4 [facility] HospitalIufuiliLASJVYYPWN8362-17-47 10:01:00 Test Item Value Reference Range Interpretation Comments INR (test code = INR) 1.18 0.85-1.17 [facility] HospitalCzzlforQEYKYVMPOH9726-55-93 10:01:00 Test Item Value Reference Range Interpretation Comments RBC (test code = RBC) 4.14 4.70-6.10 [facility] HospitalLiyddjxJEVXNBNZMF9521-23-63 10:01:00 Test Item Value Reference Range Interpretation Comments PT (test code = PT) 15.3 s 12.0-14.7 [facility] HospitalTinunslEQXFDNLOZK9554-32-91 10:01:00 Test Item Value Reference Range Interpretation Comments Hct (test code = Hct) 34.6 42.0-54.0 [facility] HospitalDytlxkqVKZTKOLUKP1257-30-27 10:01:00 Test Item Value Reference Range Interpretation Comments PTT (test code = PTT) 66.0 s 22.9-35.8 [facility] HospitalXkeccgkCRWVGMIWBL9680-25-52 10:01:00 Test Item Value Reference Range Interpretation Comments WBC (test code = WBC) 6.9 3.7-10.4 [facility] HospitalRcgtjniBKEKPMTNJE9999-28-62 10:01:00 Test Item Value Reference Range Interpretation Comments Platelet (test code = Platelet) 141 133-450 [facility] HospitalRriuxwsGREXUUXGZF3111-94-97 10:01:00 Test Item Value Reference Range Interpretation Comments MCV (test code = MCV) 83.7 80.0-94.0 [facility] HospitalDektybsSFJTPNWPSD9162-10-64 10:01:00 Test Item Value Reference Range Interpretation Comments MPV (test code = MPV) 8.5 7.4-10.4 [facility] HospitalDmgftfiKIZZOYNTLH6676-09-42 10:01:00 Test Item Value Reference Range Interpretation Comments RDW (test code = RDW) 17.4 11.5-14.5 [facility] HospitalDbkwccxLHAJKKBVYX9721-86-71 10:01:00 Test Item Value Reference Range Interpretation Comments RBC (test code = RBC) 4.14 4.70-6.10 [facility] HospitalEhypbezCUZBEMLKDK9915-99-33 10:01:00 Test Item Value Reference Range Interpretation Comments MCHC (test code = MCHC) 33.0 32.0-36.0 [facility] HospitalJwxdzbsBJPTNWTCPB5998-73-83 10:01:00 Test Item Value Reference Range Interpretation Comments Hct (test code = Hct) 34.6 42.0-54.0 [facility] HospitalRwgnvijCDTPOHEMLW2571-95-80 10:01:00 Test Item Value Reference Range Interpretation Comments Hgb (test code = Hgb) 11.4 14.0-18.0 [facility] HospitalJfrgafwIVNMUITONY9137-95-87 10:01:00 Test Item Value Reference Range Interpretation Comments WBC (test code = WBC) 6.9 3.7-10.4 [facility] HospitalZqzfsygWCHLQTZRVM6013-56-58 10:01:00 Test Item Value Reference Range Interpretation Comments MCH (test code = MCH) 27.7 pg 27.0-31.0 [facility] HospitalNcbtkhpZCFHLHEFZR3701-69-00 10:01:00 Test Item Value Reference Range Interpretation Comments MCV (test code = MCV) 83.7 80.0-94.0 [facility] HospitalVdttftiNHGROPECLZ1070-23-57 10:01:00 Test Item Value Reference Range Interpretation Comments Monocytes # (test code 0.5 See_Comment [Aut omated message] The = Monocytes #) system which generated this result tra nsmitted reference range : <=0.8. The reference r delaney was not used to int erpret this result as normal/abnormal . [facility] HospitalJbdknwlJCLBUHSPJR2393-31-05 10:01:00 Test Item Value Reference Range Interpretation Comments RDW (test code = RDW) 17.4 11.5-14.5 [facility] HospitalFapcpnmQLLNXJSMJT9631-64-55 10:01:00 Test Item Value Reference Range Interpretation Comments Lymphocytes # (test code = Lymphocytes 2.1 1.0-5.5 #) [facility] HospitalOfgunwsCBHNGVHLRA7359-14-88 10:01:00 Test Item Value Reference Range Interpretation Comments MCHC (test code = MCHC) 33.0 32.0-36.0 [facility] HospitalDucebojBYJBCWZBLI2519-71-71 10:01:00 Test Item Value Reference Range Interpretation Comments Eosinophils # (test code 0.3 See_Comment [A utomated message] The = Eosinophils #) system wh h generated this result tra nsmitted reference range : <=0.5. The reference r delaney was not used to int erpret this result as normal/abnormal . [facility] HospitalCxwfhyeJIDDFEJVPM1946-97-11 10:01:00 Test Item Value Reference Range Interpretation Comments Hgb (test code = Hgb) 11.4 14.0-18.0 [facility] HospitalYgsxyzgUPPSPHVFFB5256-22-28 10:01:00 Test Item Value Reference Range Interpretation Comments Segs-Bands # (test code = Segs-Bands #) 4.0 1.5-8.1 [facility] HospitalFblnkpgFCPANVBCIY5300-99-01 10:01:00 Test Item Value Reference Range Interpretation Comments MCH (test code = MCH) 27.7 pg 27.0-31.0 [facility] HospitalRnkfaseYRZNMNGGOQ9343-88-49 10:01:00 Test Item Value Reference Range Interpretation Comments Monocytes (test code = Monocytes) 6.8 2.0-12.0 [facility] HospitalEnubwgnLFKEOFGMPH1136-39-82 10:01:00 Test Item Value Reference Range Interpretation Comments Monocytes # (test code 0.5 See_Comment [Aut omated message] The = Monocytes #) system which generated this result tra nsmitted reference range : <=0.8. The reference r delaney was not used to int erpret this result as normal/abnormal . [facility] HospitalTwaliwjRQXRVCSTHY0372-56-99 10:01:00 Test Item Value Reference Range Interpretation Comments Basophils (test code = 0.4 See_Comment [Aut omated message] The Basophils) system which ge nerated this result tra nsmitted reference range : <=1.0. The reference r delaney was not used to int erpret this result as normal/abnormal . [facility] HospitalJhzonicVCKYMKARRV5256-31-77 10:01:00 Test Item Value Reference Range Interpretation Comments Lymphocytes # (test code = Lymphocytes 2.1 1.0-5.5 #) [facility] HospitalBddpgzoHBYTQRZRQG7678-61-27 10:01:00 Test Item Value Reference Range Interpretation Comments Eosinophils (test code = 4.3 See_Comment [A utomated message] The Eosinophils) system which ge nerated this result tra nsmitted reference range : <=4.0. The reference r delaney was not used to int erpret this result as normal/abnormal . [facility] HospitalZqlavttZHJSNSKOOQ1097-88-70 10:01:00 Test Item Value Reference Range Interpretation Comments Eosinophils # (test code 0.3 See_Comment [A utomated message] The = Eosinophils #) system whic h generated this result tra nsmitted reference range : <=0.5. The reference r delaney was not used to int erpret this result as normal/abnormal . [facility] HospitalLaprqszAFIWADKOWP7800-44-40 10:01:00 Test Item Value Reference Range Interpretation Comments Lymphocytes (test code = Lymphocytes) 30.0 20.0-40.0 [facility] HospitalDptghgxCZINSCATCN0958-15-36 10:01:00 Test Item Value Reference Range Interpretation Comments Segs-Bands # (test code = Segs-Bands #) 4.0 1.5-8.1 [facility] HospitalLprndzvKGHQSWBJFC2712-90-72 10:01:00 Test Item Value Reference Range Interpretation Comments Segs (test code = Segs) 58.5 45.0-75.0 [facility] HospitalEgykpjlGCLTGUBIFJ8801-46-95 10:01:00 Test Item Value Reference Range Interpretation Comments Monocytes (test code = Monocytes) 6.8 2.0-12.0 [facility]2017-01-24 10:01:00 Test Item Value Reference Range Interpretation Comments Ca Ion WB (test code = Ca Ion WB) 1.11 1.05-1.25 [facility]2017-01-24 10:01:00 Test Item Value Reference Range Interpretation Comments Ca Norm WB (test code = Ca Norm WB) 1.11 1.05-1.25 [facility] HospitalJrxpgbkXOPJWRHENP6417-46-70 10:01:00 Test Item Value Reference Range Interpretation Comments Basophils (test code = 0.4 See_Comment [Aut omated message] The Basophils) system which ge nerated this result tra nsmitted reference range : <=1.0. The reference r delaney was not used to int erpret this result as normal/abnormal . [facility] HospitalYjqzalgRYMCQKKZED5037-97-94 10:01:00 Test Item Value Reference Range Interpretation Comments Eosinophils (test code = 4.3 See_Comment [A utomated message] The Eosinophils) system which ge nerated this result tra nsmitted reference range : <=4.0. The reference r delaney was not used to int erpret this result as normal/abnormal . [facility] HospitalPnlboazSUJHBEGLTJ5915-38-49 10:01:00 Test Item Value Reference Range Interpretation Comments Lymphocytes (test code = Lymphocytes) 30.0 20.0-40.0 [facility] HospitalFwnbaswIQWBPAYPDI0394-11-60 10:01:00 Test Item Value Reference Range Interpretation Comments Segs (test code = Segs) 58.5 45.0-75.0 [facility]2017-01-24 10:01:00 Test Item Value Reference Range Interpretation Comments Ca Ion WB (test code = Ca Ion WB) 1.11 1.05-1.25 [facility]2017-01-24 10:01:00 Test Item Value Reference Range Interpretation Comments Ca Norm WB (test code = Ca Norm WB) 1.11 1.05-1.25 [facility]2017-01-23 23:57:00 Test Item Value Reference Range Interpretation Comments Phosphorus (test code = Phosphorus) 4.1 2.5-4.5 [facility]2017-01-23 23:57:00 Test Item Value Reference Range Interpretation Comments Magnesium Lvl (test code = Magnesium 1.8 1.8-2.4 Lvl) [facility] HospitalBbmjleiJXBZSEJSVX8668-84-72 23:57:00 Test Item Value Reference Range Interpretation Comments PTT (test code = PTT) 63.3 s 22.9-35.8 [facility] HospitalWzxxgnvHBWMXLZUZX8942-64-19 23:57:00 Test Item Value Reference Range Interpretation Comments INR (test code = INR) 1.17 0.85-1.17 [facility] HospitalFnojuhzNLZXHVQOUD4997-81-32 23:57:00 Test Item Value Reference Range Interpretation Comments PT (test code = PT) 15.1 s 12.0-14.7 [facility]2017-01-23 23:57:00 Test Item Value Reference Range Interpretation Comments Phosphorus (test code = Phosphorus) 4.1 2.5-4.5 [facility]2017-01-23 23:57:00 Test Item Value Reference Range Interpretation Comments Magnesium Lvl (test code = Magnesium 1.8 1.8-2.4 Lvl) [facility] HospitalScwdzkhPFPDWIDLZA6498-48-24 23:57:00 Test Item Value Reference Range Interpretation Comments PTT (test code = PTT) 63.3 s 22.9-35.8 [facility] HospitalUllmptwTHBKSANQQS4711-51-13 23:57:00 Test Item Value Reference Range Interpretation Comments INR (test code = INR) 1.17 0.85-1.17 [facility] HospitalPfyggemWUAGWWPJSJ4562-30-52 23:57:00 Test Item Value Reference Range Interpretation Comments PT (test code = PT) 15.1 s 12.0-14.7 [facility]2017-01-23 23:57:00 Test Item Value Reference Range Interpretation Comments Phosphorus (test code = Phosphorus) 4.1 2.5-4.5 [facility]2017-01-23 23:57:00 Test Item Value Reference Range Interpretation Comments Magnesium Lvl (test code = Magnesium 1.8 1.8-2.4 Lvl) [facility] HospitalPpaehjzLTFXXWNYPB3550-86-11 23:57:00 Test Item Value Reference Range Interpretation Comments PTT (test code = PTT) 63.3 s 22.9-35.8 [facility] HospitalGdwwektFWKQSFRNNO6956-11-26 23:57:00 Test Item Value Reference Range Interpretation Comments INR (test code = INR) 1.17 0.85-1.17 [facility] HospitalWkutlbvAZLXTPQPEE6264-40-01 23:57:00 Test Item Value Reference Range Interpretation Comments PT (test code = PT) 15.1 s 12.0-14.7 [place] 936117-01-23 23:57:00 Test Item Value Reference Range Interpretation Comments Phosphorus (test code = Phosphorus) 4.1 2.5-4.5 [facility]2017-01-23 23:57:00 Test Item Value Reference Range Interpretation Comments Magnesium Lvl (test code = Magnesium 1.8 1.8-2.4 Lvl) [facility] HospitalXngwureCWECSKOETV4249-11-97 23:57:00 Test Item Value Reference Range Interpretation Comments PTT (test code = PTT) 63.3 s 22.9-35.8 [facility] HospitalJunbkreDWIIYSSEOW4091-73-63 23:57:00 Test Item Value Reference Range Interpretation Comments INR (test code = INR) 1.17 0.85-1.17 [facility] HospitalHhmjwoyNRSDGPOENC9656-36-18 23:57:00 Test Item Value Reference Range Interpretation Comments PT (test code = PT) 15.1 s 12.0-14.7 [facility]2017-01-23 20:05:00 Test Item Value Reference Range Interpretation Comments U Magnesium (test code = U Magnesium) no gt [facility]2017-01-23 20:05:00 Test Item Value Reference Range Interpretation Comments U Chloride (test code = U Chloride) 143 [facility]2017-01-23 20:05:00 Test Item Value Reference Range Interpretation Comments U Potassium (test code = U Potassium) 33.9 [facility]2017-01-23 20:05:00 Test Item Value Reference Range Interpretation Comments U Sodium (test code = U Sodium) 115 [facility]2017-01-23 20:05:00 Test Item Value Reference Range Interpretation Comments U Magnesium (test code = U Magnesium) no gt [facility]2017-01-23 20:05:00 Test Item Value Reference Range Interpretation Comments U Chloride (test code = U Chloride) 143 [facility]2017-01-23 20:05:00 Test Item Value Reference Range Interpretation Comments U Potassium (test code = U Potassium) 33.9 [facility]2017-01-23 20:05:00 Test Item Value Reference Range Interpretation Comments U Sodium (test code = U Sodium) 115 [facility]2017-01-23 20:05:00 Test Item Value Reference Range Interpretation Comments U Magnesium (test code = U Magnesium) no gt [facility]2017-01-23 20:05:00 Test Item Value Reference Range Interpretation Comments U Chloride (test code = U Chloride) 143 [facility]2017-01-23 20:05:00 Test Item Value Reference Range Interpretation Comments U Potassium (test code = U Potassium) 33.9 [facility]2017-01-23 20:05:00 Test Item Value Reference Range Interpretation Comments U Sodium (test code = U Sodium) 115 [facility]2017-01-23 20:05:00 Test Item Value Reference Range Interpretation Comments U Magnesium (test code = U Magnesium) no gt [facility]2017-01-23 20:05:00 Test Item Value Reference Range Interpretation Comments U Chloride (test code = U Chloride) 143 [facility]2017-01-23 20:05:00 Test Item Value Reference Range Interpretation Comments U Potassium (test code = U Potassium) 33.9 [facility]2017-01-23 20:05:00 Test Item Value Reference Range Interpretation Comments U Sodium (test code = U Sodium) 115 [facility] HospitalLgkaxbrDIIWMDRQHQ1681-39-07 17:50:00 Test Item Value Reference Range Interpretation Comments Segs (test code = Segs) 71.2 45.0-75.0 [facility] HospitalOcdhqexRCBMMPNHBT7439-55-89 17:50:00 Test Item Value Reference Range Interpretation Comments Lymphocytes (test code = Lymphocytes) 18.2 20.0-40.0 [place] 831547-01-23 17:50:00 Test Item Value Reference Range Interpretation Comments Monocytes (test code = Monocytes) 6.8 2.0-12.0 [place] [address]-01-23 17:50:00 Test Item Value Reference Range Interpretation Comments Eosinophils (test code = 3.3 See_Comment [A utomated message] The Eosinophils) system which ge nerated this result tra nsmitted reference range : <=4.0. The reference r delaney was not used to int erpret this result as normal/abnormal . [place] [address]-01-23 17:50:00 Test Item Value Reference Range Interpretation Comments Basophils (test code = 0.5 See_Comment [Aut omated message] The Basophils) system which ge nerated this result tra nsmitted reference range : <=1.0. The reference r delaney was not used to int erpret this result as normal/abnormal . [facility] HospitalRgawsaaJEFAHMGTWE4543-22-08 17:50:00 Test Item Value Reference Range Interpretation Comments Segs (test code = Segs) 71.2 45.0-75.0 [place] 831547-01-23 17:50:00 Test Item Value Reference Range Interpretation Comments Segs-Bands # (test code = Segs-Bands #) 6.2 1.5-8.1 [place] 831547-01-23 17:50:00 Test Item Value Reference Range Interpretation Comments Lymphocytes (test code = Lymphocytes) 18.2 20.0-40.0 [facility] HospitalNgvyekvPVNZLHSZHT1588-54-44 17:50:00 Test Item Value Reference Range Interpretation Comments Monocytes # (test code 0.6 See_Comment [Aut omated message] The = Monocytes #) system which generated this result tra nsmitted reference range : <=0.8. The reference r delaney was not used to int erpret this result as normal/abnormal . [facility] HospitalQbanqstNDLOXWHHNC9218-02-98 17:50:00 Test Item Value Reference Range Interpretation Comments Monocytes (test code = Monocytes) 6.8 2.0-12.0 [facility] HospitalSxwjeykULCHPYWJWB0357-22-31 17:50:00 Test Item Value Reference Range Interpretation Comments Lymphocytes # (test code = Lymphocytes 1.6 1.0-5.5 #) [facility] HospitalWizupgqKVCEXFMHCY6306-55-62 17:50:00 Test Item Value Reference Range Interpretation Comments Eosinophils (test code = 3.3 See_Comment [A utomated message] The Eosinophils) system which ge nerated this result tra nsmitted reference range : <=4.0. The reference r delaney was not used to int erpret this result as normal/abnormal . [facility] HospitalBcypoddKUMQQDSZHV2677-71-12 17:50:00 Test Item Value Reference Range Interpretation Comments Eosinophils # (test code 0.3 See_Comment [A utomated message] The = Eosinophils #) system whic h generated this result tra nsmitted reference range : <=0.5. The reference r delaney was not used to int erpret this result as normal/abnormal . [facility] HospitalLlgkksoNVTYUXKPQB1750-13-42 17:50:00 Test Item Value Reference Range Interpretation Comments Basophils (test code = 0.5 See_Comment [Aut omated message] The Basophils) system which ge nerated this result tra nsmitted reference range : <=1.0. The reference r delaney was not used to int erpret this result as normal/abnormal . [facility] HospitalFijrjtdDQZHDGMVPF8195-70-35 17:50:00 Test Item Value Reference Range Interpretation Comments PTT (test code = PTT) 65.2 s 22.9-35.8 [facility] HospitalFmabllmAFDEAVHRFJ3532-05-07 17:50:00 Test Item Value Reference Range Interpretation Comments Segs-Bands # (test code = Segs-Bands #) 6.2 1.5-8.1 [facility] HospitalGmbfzjwNHHTGXNLNC3074-97-13 17:50:00 Test Item Value Reference Range Interpretation Comments INR (test code = INR) 1.19 0.85-1.17 [facility] HospitalHglopagUVZPMNOAXX5332-36-65 17:50:00 Test Item Value Reference Range Interpretation Comments Monocytes # (test code 0.6 See_Comment [Aut omated message] The = Monocytes #) system which generated this result tra nsmitted reference range : <=0.8. The reference r delaney was not used to int erpret this result as normal/abnormal . [facility] HospitalMuyqkjnAXIEQNGISS8755-62-69 17:50:00 Test Item Value Reference Range Interpretation Comments PT (test code = PT) 15.4 s 12.0-14.7 [facility] HospitalYrxllswZSRHONRZRP2697-76-15 17:50:00 Test Item Value Reference Range Interpretation Comments Lymphocytes # (test code = Lymphocytes 1.6 1.0-5.5 #) [facility] HospitalWwwmuuxHCJXJDSOGK4327-60-47 17:50:00 Test Item Value Reference Range Interpretation Comments MPV (test code = MPV) 8.9 7.4-10.4 [facility] HospitalYyrhqsfEVWSGHCLFE9219-84-15 17:50:00 Test Item Value Reference Range Interpretation Comments Eosinophils # (test code 0.3 See_Comment [A utomated message] The = Eosinophils #) system whic h generated this result tra nsmitted reference range : <=0.5. The reference r delaney was not used to int erpret this result as normal/abnormal . [facility] HospitalUuhljyxWHCNYOTXZX7757-96-11 17:50:00 Test Item Value Reference Range Interpretation Comments Platelet (test code = Platelet) 150 133-450 [facility] HospitalPuuppyzBJEGIRVEMA7742-63-92 17:50:00 Test Item Value Reference Range Interpretation Comments PTT (test code = PTT) 65.2 s 22.9-35.8 [facility] HospitalDbrmxlhONLVDLUMIC1252-98-91 17:50:00 Test Item Value Reference Range Interpretation Comments RDW (test code = RDW) 17.2 11.5-14.5 [facility] HospitalTrbsavmCRVESODTBN8080-09-57 17:50:00 Test Item Value Reference Range Interpretation Comments INR (test code = INR) 1.19 0.85-1.17 [facility] HospitalAebjfjtXRVPTJZBYZ2240-65-23 17:50:00 Test Item Value Reference Range Interpretation Comments MCHC (test code = MCHC) 32.3 32.0-36.0 [facility] HospitalNqejblvTXHNBESDTL6266-25-98 17:50:00 Test Item Value Reference Range Interpretation Comments PT (test code = PT) 15.4 s 12.0-14.7 [facility] HospitalPpytaidPVFJWDFOKA7000-65-74 17:50:00 Test Item Value Reference Range Interpretation Comments MCH (test code = MCH) 26.8 pg 27.0-31.0 [facility] HospitalRijwayzVHNLDTFTWA7005-04-87 17:50:00 Test Item Value Reference Range Interpretation Comments MPV (test code = MPV) 8.9 7.4-10.4 [facility] HospitalQkkhlcsMDDCQBBQAY5134-31-64 17:50:00 Test Item Value Reference Range Interpretation Comments Hct (test code = Hct) 35.9 42.0-54.0 [facility] HospitalMeoujniYNFNTYFPRX5287-72-56 17:50:00 Test Item Value Reference Range Interpretation Comments Platelet (test code = Platelet) 150 133-450 [facility] HospitalLbrlqikEIOMVAUUEB3126-98-13 17:50:00 Test Item Value Reference Range Interpretation Comments Hgb (test code = Hgb) 11.6 14.0-18.0 [facility] HospitalCzcrjpiUQJGVVTQGX3516-54-32 17:50:00 Test Item Value Reference Range Interpretation Comments RDW (test code = RDW) 17.2 11.5-14.5 [facility] HospitalHxtwibeDHMAVQMPQF6194-29-48 17:50:00 Test Item Value Reference Range Interpretation Comments MCV (test code = MCV) 83.0 80.0-94.0 [facility] HospitalPoaihktKZECKQFKKX8673-17-85 17:50:00 Test Item Value Reference Range Interpretation Comments MCHC (test code = MCHC) 32.3 32.0-36.0 [facility] HospitalDzonspwWWEXSBHJUL6226-14-32 17:50:00 Test Item Value Reference Range Interpretation Comments RBC (test code = RBC) 4.32 4.70-6.10 [facility] HospitalKsibookUYDLDVILHP8918-17-66 17:50:00 Test Item Value Reference Range Interpretation Comments MCH (test code = MCH) 26.8 pg 27.0-31.0 [facility] HospitalJqwsnidNVVORLFJTX4732-64-79 17:50:00 Test Item Value Reference Range Interpretation Comments WBC (test code = WBC) 8.7 3.7-10.4 [facility] HospitalVugzdbaKKLXVGMJRM4716-13-47 17:50:00 Test Item Value Reference Range Interpretation Comments Hct (test code = Hct) 35.9 42.0-54.0 [facility] HospitalZxnqatxKWJTLEZXMK9479-86-10 17:50:00 Test Item Value Reference Range Interpretation Comments Hgb (test code = Hgb) 11.6 14.0-18.0 [facility] HospitalJkzpsgrVLMZESYBHW0995-77-58 17:50:00 Test Item Value Reference Range Interpretation Comments MCV (test code = MCV) 83.0 80.0-94.0 [facility] HospitalOokciqyKFAZPAPIOK9498-11-81 17:50:00 Test Item Value Reference Range Interpretation Comments RBC (test code = RBC) 4.32 4.70-6.10 [facility] HospitalQtxdtxlVCVAGEUYJM2836-80-58 17:50:00 Test Item Value Reference Range Interpretation Comments WBC (test code = WBC) 8.7 3.7-10.4 [facility] HospitalXheevkfPHYCSDMIBO0864-77-41 17:50:00 Test Item Value Reference Range Interpretation Comments Segs (test code = Segs) 71.2 45.0-75.0 [facility] HospitalBfvquceBTYJKNOLMW9696-24-91 17:50:00 Test Item Value Reference Range Interpretation Comments Lymphocytes (test code = Lymphocytes) 18.2 20.0-40.0 [facility] HospitalHiqskyrVVHDZEKKFR5417-68-05 17:50:00 Test Item Value Reference Range Interpretation Comments Monocytes (test code = Monocytes) 6.8 2.0-12.0 [facility] HospitalGkzhgxnSYHHGVXPPQ1569-36-29 17:50:00 Test Item Value Reference Range Interpretation Comments Eosinophils (test code = 3.3 See_Comment [A utomated message] The Eosinophils) system which ge nerated this result tra nsmitted reference range : <=4.0. The reference r delaney was not used to int erpret this result as normal/abnormal . [facility] HospitalIdllwuzQKVMLAAPNY1953-85-45 17:50:00 Test Item Value Reference Range Interpretation Comments Basophils (test code = 0.5 See_Comment [Aut omated message] The Basophils) system which ge nerated this result tra nsmitted reference range : <=1.0. The reference r delaney was not used to int erpret this result as normal/abnormal . [facility] HospitalUhrjgpwIWDWXGYAVB6433-40-36 17:50:00 Test Item Value Reference Range Interpretation Comments Segs-Bands # (test code = Segs-Bands #) 6.2 1.5-8.1 [facility] HospitalFtvggwpENSXTPCCIW0290-43-59 17:50:00 Test Item Value Reference Range Interpretation Comments Monocytes # (test code 0.6 See_Comment [Aut omated message] The = Monocytes #) system which generated this result tra nsmitted reference range : <=0.8. The reference r delaney was not used to int erpret this result as normal/abnormal . [facility] HospitalUporecwQPKNNBDDIU4933-13-68 17:50:00 Test Item Value Reference Range Interpretation Comments Segs (test code = Segs) 71.2 45.0-75.0 [facility] HospitalRqrshyoNWTYOYIUYS7973-18-35 17:50:00 Test Item Value Reference Range Interpretation Comments Lymphocytes # (test code = Lymphocytes 1.6 1.0-5.5 #) [facility] HospitalMyxsemqTEJKEASASS4903-45-90 17:50:00 Test Item Value Reference Range Interpretation Comments Lymphocytes (test code = Lymphocytes) 18.2 20.0-40.0 [facility] HospitalEsfqtzoUTFJHSLIIK4362-04-30 17:50:00 Test Item Value Reference Range Interpretation Comments Eosinophils # (test code 0.3 See_Comment [A utomated message] The = Eosinophils #) system whic h generated this result tra nsmitted reference range : <=0.5. The reference r delaney was not used to int erpret this result as normal/abnormal . [facility] HospitalBzdfflmMSDDHBFMFT6834-42-24 17:50:00 Test Item Value Reference Range Interpretation Comments Monocytes (test code = Monocytes) 6.8 2.0-12.0 [facility] HospitalDdouwrsNISGOCQROK3357-89-43 17:50:00 Test Item Value Reference Range Interpretation Comments PTT (test code = PTT) 65.2 s 22.9-35.8 [facility] HospitalLvhqvnaVKRHPUCHLF5155-87-14 17:50:00 Test Item Value Reference Range Interpretation Comments Eosinophils (test code = 3.3 See_Comment [A utomated message] The Eosinophils) system which ge nerated this result tra nsmitted reference range : <=4.0. The reference r delaney was not used to int erpret this result as normal/abnormal . [facility] HospitalYascuyrNEGAVVHYFD9261-89-59 17:50:00 Test Item Value Reference Range Interpretation Comments INR (test code = INR) 1.19 0.85-1.17 [facility] HospitalVfibjgnBFMMOARPOB7475-32-62 17:50:00 Test Item Value Reference Range Interpretation Comments PT (test code = PT) 15.4 s 12.0-14.7 [facility] HospitalPlmtpmgTVFBAIDPPY6259-09-00 17:50:00 Test Item Value Reference Range Interpretation Comments Basophils (test code = 0.5 See_Comment [Aut omated message] The Basophils) system which ge nerated this result tra nsmitted reference range : <=1.0. The reference r delaney was not used to int erpret this result as normal/abnormal . [facility] HospitalLswkghsAPNWGLVGSG9562-33-03 17:50:00 Test Item Value Reference Range Interpretation Comments MPV (test code = MPV) 8.9 7.4-10.4 [facility] HospitalTvefvolFWHXQPQNKP5551-42-47 17:50:00 Test Item Value Reference Range Interpretation Comments Segs-Bands # (test code = Segs-Bands #) 6.2 1.5-8.1 [facility] HospitalTaaeqkoCALETMRQXI2646-21-11 17:50:00 Test Item Value Reference Range Interpretation Comments Platelet (test code = Platelet) 150 133-450 [facility] HospitalTtzeirfRPOLKYXYKE7619-17-09 17:50:00 Test Item Value Reference Range Interpretation Comments Monocytes # (test code 0.6 See_Comment [Aut omated message] The = Monocytes #) system which generated this result tra nsmitted reference range : <=0.8. The reference r delaney was not used to int erpret this result as normal/abnormal . [facility] HospitalUqetlstXDUBAIXNMV6233-16-70 17:50:00 Test Item Value Reference Range Interpretation Comments RDW (test code = RDW) 17.2 11.5-14.5 [facility] HospitalHadorviOOMVVKNHAX4574-55-68 17:50:00 Test Item Value Reference Range Interpretation Comments Lymphocytes # (test code = Lymphocytes 1.6 1.0-5.5 #) [facility] HospitalNzbyfgnPIOXAWHHZP2709-93-61 17:50:00 Test Item Value Reference Range Interpretation Comments MCHC (test code = MCHC) 32.3 32.0-36.0 [facility] HospitalRlxzlsjVFSKZCMACK4980-68-35 17:50:00 Test Item Value Reference Range Interpretation Comments Eosinophils # (test code 0.3 See_Comment [A utomated message] The = Eosinophils #) system whic h generated this result tra nsmitted reference range : <=0.5. The reference r delaney was not used to int erpret this result as normal/abnormal . [facility] HospitalSeseyjbRRSJDFVKZH3597-40-79 17:50:00 Test Item Value Reference Range Interpretation Comments MCH (test code = MCH) 26.8 pg 27.0-31.0 [facility] HospitalWjleoueHMWEOBBKLO9016-53-39 17:50:00 Test Item Value Reference Range Interpretation Comments PTT (test code = PTT) 65.2 s 22.9-35.8 [facility] HospitalWgifnngVVAPLYWHXJ0629-92-97 17:50:00 Test Item Value Reference Range Interpretation Comments Hct (test code = Hct) 35.9 42.0-54.0 [facility] HospitalNumqjbyPOHPPQSGZH6879-62-35 17:50:00 Test Item Value Reference Range Interpretation Comments Hgb (test code = Hgb) 11.6 14.0-18.0 [facility] HospitalHktygkkGBCJFQUJVC6906-45-65 17:50:00 Test Item Value Reference Range Interpretation Comments INR (test code = INR) 1.19 0.85-1.17 [facility] HospitalWulyyxhXKEUDIWHSY3675-00-98 17:50:00 Test Item Value Reference Range Interpretation Comments MCV (test code = MCV) 83.0 80.0-94.0 [facility] HospitalNzkbhbpYMFZPHGHQF7884-89-94 17:50:00 Test Item Value Reference Range Interpretation Comments PT (test code = PT) 15.4 s 12.0-14.7 [facility] HospitalCfikugnOZTVGPEANC6640-56-49 17:50:00 Test Item Value Reference Range Interpretation Comments RBC (test code = RBC) 4.32 4.70-6.10 [facility] HospitalLlffnzxYCOSCIZTUA5199-84-36 17:50:00 Test Item Value Reference Range Interpretation Comments MPV (test code = MPV) 8.9 7.4-10.4 [facility] HospitalOkdtampHESUCKKRBO3855-61-06 17:50:00 Test Item Value Reference Range Interpretation Comments WBC (test code = WBC) 8.7 3.7-10.4 [facility] HospitalLohluxyZQXWCCUGOJ0691-93-89 17:50:00 Test Item Value Reference Range Interpretation Comments Platelet (test code = Platelet) 150 133-450 [facility] HospitalEqmosxcBPFDJLZQTS5581-81-05 17:50:00 Test Item Value Reference Range Interpretation Comments RDW (test code = RDW) 17.2 11.5-14.5 [facility] HospitalVezixaaAPTKYGCAPN9060-48-40 17:50:00 Test Item Value Reference Range Interpretation Comments MCHC (test code = MCHC) 32.3 32.0-36.0 [facility] HospitalAcjeaooITCCVEHJIB8050-79-69 17:50:00 Test Item Value Reference Range Interpretation Comments MCH (test code = MCH) 26.8 pg 27.0-31.0 [facility] HospitalFhznqnjEKOUBLLPHO5510-00-95 17:50:00 Test Item Value Reference Range Interpretation Comments Hct (test code = Hct) 35.9 42.0-54.0 [facility] HospitalWvavmfaPMOQLMFIRC4624-67-84 17:50:00 Test Item Value Reference Range Interpretation Comments Hgb (test code = Hgb) 11.6 14.0-18.0 [facility] HospitalIphfqvkLTMTDHKFXA6754-75-95 17:50:00 Test Item Value Reference Range Interpretation Comments MCV (test code = MCV) 83.0 80.0-94.0 [facility] HospitalJbkpjziFJRPTHXBYX1611-20-64 17:50:00 Test Item Value Reference Range Interpretation Comments RBC (test code = RBC) 4.32 4.70-6.10 [facility] HospitalEnhkxwoHUDRYCSNBB0686-02-15 17:50:00 Test Item Value Reference Range Interpretation Comments WBC (test code = WBC) 8.7 3.7-10.4 [facility] ZTFWDQW0875-32-78 11:16:00 Test Item Value Reference Range Interpretation Comments Troponin-I (test code 0.13 See_Comment [Auto mated message] The = Troponin-I) system which g enerated this result transmit óscar reference range : <=0.40. The reference r delaney was not used to interpr et this result as kristine l/abnormal. [facility] VFBXLPT9331-72-23 11:16:00 Test Item Value Reference Range Interpretation Comments Total CK (test code = Total CK) 39 12-191 [facility] YWKCDHZ0255-45-63 11:16:00 Test Item Value Reference Range Interpretation Comments Troponin-T (test code 0.026 See_Comment [Auto mated message] The = Troponin-T) system which g enerated this result transmit óscar reference range : <=0.100. The reference r delaney was not used to interpr et this result as kristine l/abnormal. [facility]CHEM MYSCV0995-69-01 11:16:00 Test Item Value Reference Range Interpretation Comments Lactic Acid Lvl (test code = Lactic 1.5 0.5-2.2 Acid Lvl) [facility] CenterZmpalsxJKDOEOPEJ2991-52-85 11:16:00 Test Item Value Reference Range Interpretation Comments Myoglobin (test code = Myoglobin) 54 25-72 [facility] EBMVISX0092-24-21 11:16:00 Test Item Value Reference Range Interpretation Comments Troponin-I (test code 0.13 See_Comment [Auto mated message] The = Troponin-I) system which g enerated this result transmit óscar reference range : <=0.40. The reference r delaney was not used to interpr et this result as kristine l/abnormal. [facility] CenterRoyal Yatri HolidaysUOFL [facility] [id number] 11:16:00 Test Item Value Reference Range Interpretation Comments Total CK (test code = Total CK) 39 12-191 [facility] OPCNJJU7212-56-17 11:16:00 Test Item Value Reference Range Interpretation Comments Troponin-T (test code 0.026 See_Comment [Auto mated message] The = Troponin-T) system which g enerated this result transmit óscar reference range : <=0.100. The reference r delaney was not used to interpr et this result as kristine l/abnormal. [facility] CenterDigital Room, Inc [id number] 11:16:00 Test Item Value Reference Range Interpretation Comments Lactic Acid Lvl (test code = Lactic 1.5 0.5-2.2 Acid Lvl) [facility] CenterVgbcizkNJHPOWYXG5244-02-05 11:16:00 Test Item Value Reference Range Interpretation Comments Myoglobin (test code = Myoglobin) 54 25-72 [facility] XIBEBKX1664-94-75 11:16:00 Test Item Value Reference Range Interpretation Comments Troponin-I (test code 0.13 See_Comment [Auto mated message] The = Troponin-I) system which g enerated this result transmit óscar reference range : <=0.40. The reference r delaney was not used to interpr et this result as kristine l/abnormal. [facility] UULEMDH5234-25-59 11:16:00 Test Item Value Reference Range Interpretation Comments Total CK (test code = Total CK) 39 12-191 [facility] LBQBSQT4447-08-89 11:16:00 Test Item Value Reference Range Interpretation Comments Troponin-T (test code 0.026 See_Comment [Auto mated message] The = Troponin-T) system which g enerated this result transmit óscar reference range : <=0.100. The reference r delaney was not used to interpr et this result as kristine l/abnormal. [facility]2017-01-23 11:16:00 Test Item Value Reference Range Interpretation Comments Lactic Acid Lvl (test code = Lactic 1.5 0.5-2.2 Acid Lvl) [facility] CenterIokvzaoHEDRIUKJR3792-24-36 11:16:00 Test Item Value Reference Range Interpretation Comments Myoglobin (test code = Myoglobin) 54 25-72 [facility] WBTFJGR2219-02-05 11:16:00 Test Item Value Reference Range Interpretation Comments Troponin-I (test code 0.13 See_Comment [Auto mated message] The = Troponin-I) system which g enerated this result transmit óscar reference range : <=0.40. The reference r delaney was not used to interpr et this result as kristine l/abnormal. [facility] [id number] 11:16:00 Test Item Value Reference Range Interpretation Comments Total CK (test code = Total CK) 39 12-191 [facility] CenterCARDIAC OJDMRQJ7295-71-73 11:16:00 Test Item Value Reference Range Interpretation Comments Troponin-T (test code 0.026 See_Comment [Auto mated message] The = Troponin-T) system which g enerated this result transmit óscar reference range : <=0.100. The reference r delaney was not used to interpr et this result as kristine l/abnormal. [facility] [employer] [id number] 11:16:00 Test Item Value Reference Range Interpretation Comments Lactic Acid Lvl (test code = Lactic 1.5 0.5-2.2 Acid Lvl) [facility] CenterVyhgxmoBOPPATAXN2548-71-67 11:16:00 Test Item Value Reference Range Interpretation Comments Myoglobin (test code = Myoglobin) 54 25-72 [facility] [employer] [id number] 07:20:00 Test Item Value Reference Range Interpretation Comments Lactic Acid Lvl (test code = Lactic 2.2 0.5-2.2 Acid Lvl) [facility] [employer] [id number] 07:20:00 Test Item Value Reference Range Interpretation Comments Lactic Acid Lvl (test code = Lactic 2.2 0.5-2.2 Acid Lvl) [facility] [employer] [id number] 07:20:00 Test Item Value Reference Range Interpretation Comments Lactic Acid Lvl (test code = Lactic 2.2 0.5-2.2 Acid Lvl) [facility] [employer] [id number] 07:20:00 Test Item Value Reference Range Interpretation Comments Lactic Acid Lvl (test code = Lactic 2.2 0.5-2.2 Acid Lvl) [facility] CenterSilent EdgeBACTERIAL - [id number] 07:06:00 Test Item Value Reference Range Interpretation Comments MRSA by PCR (test Positive 1*ABN*(08/16/16 code = MRSA by PCR) 1:06 AM) [facility] [employer] [id number] 07:06:00 Test Item Value Reference Range Interpretation Comments Antibody Scrn (test Negative (08/16/16 1:06 code = Antibody Scrn) AM) [facility] [employer] [id number] 07:06:00 Test Item Value Reference Range Interpretation Comments ABO/Rh (test code = ABO/Rh) A NEG [employer] [id number] 07:06:00 Test Item Value Reference Range Interpretation Comments Troponin-I (test code 0.05 See_Comment [Auto mated message] The = Troponin-I) system which g enerated this result transmit óscar reference range : <=0.40. The reference r delaney was not used to interpr et this result as kristine l/abnormal. [employer] [id number] 07:06:00 Test Item Value Reference Range Interpretation Comments Total CK (test code = Total CK) 40 12-191 [employer] [id number] 07:06:00 Test Item Value Reference Range Interpretation Comments Troponin-T (test code no gt See_Comment [Auto mated message] The = Troponin-T) system which g enerated this result transmit óscar reference range : <=0.100. The reference r delaney was not used to interpr et this result as kristine l/abnormal. [employer] - [id number] 07:06:00 Test Item Value Reference Range Interpretation Comments MRSA by PCR (test Positive 1*ABN*(08/16/16 code = MRSA by PCR) 1:06 AM) [employer] [id number] 07:06:00 Test Item Value Reference Range Interpretation Comments A/G Ratio (test code = A/G Ratio) 1.0 0.7-1.6 [employer] [id number] 07:06:00 Test Item Value Reference Range Interpretation Comments Antibody Scrn (test Negative (08/16/16 1:06 code = Antibody Scrn) AM) [employer] [id number] 07:06:00 Test Item Value Reference Range Interpretation Comments Globulin (test code = Globulin) 3.2 2.7-4.2 [employer] [id number] 07:06:00 Test Item Value Reference Range Interpretation Comments ABO/Rh (test code = ABO/Rh) A NEG [employer] [id number] 07:06:00 Test Item Value Reference Range Interpretation Comments B/C Ratio (test code = B/C Ratio) 115 6-25 [employer]2017-01-23 07:06:00 Test Item Value Reference Range Interpretation Comments Total Protein (test code = Total 6.4 6.4-8.4 Protein) [facility] [employer]2017-01-23 07:06:00 Test Item Value Reference Range Interpretation Comments Troponin-I (test code 0.05 See_Comment [Auto mated message] The = Troponin-I) system which g enerated this result transmit óscar reference range : <=0.40. The reference r delaney was not used to interpr et this result as kristine l/abnormal. [employer]2017-01-23 07:06:00 Test Item Value Reference Range Interpretation Comments AST (test code = AST) 6 See_Comment [Auto mated message] The system which ge nerated this result transmit óscar reference range : <=37. The reference range was not used to interpr et this result as kristine l/abnormal. [employer]2017-01-23 07:06:00 Test Item Value Reference Range Interpretation Comments Total CK (test code = Total CK) 40 12-191 [facility] [employer]2017-01-23 07:06:00 Test Item Value Reference Range Interpretation Comments Bili Total (test code = Bili Total) 0.4 0.2-1.3 [facility] [employer]2017-01-23 07:06:00 Test Item Value Reference Range Interpretation Comments Troponin-T (test code no gt See_Comment [Auto mated message] The = Troponin-T) system which g enerated this result transmit óscar reference range : <=0.100. The reference r delaney was not used to interpr et this result as kristine l/abnormal. [employer]2017-01-23 07:06:00 Test Item Value Reference Range Interpretation Comments Albumin Lvl (test code = Albumin Lvl) 3.2 3.5-5.0 [employer]2017-01-23 07:06:00 Test Item Value Reference Range Interpretation Comments A/G Ratio (test code = A/G Ratio) 1.0 0.7-1.6 [employer]2017-01-23 07:06:00 Test Item Value Reference Range Interpretation Comments Alk Phos (test code = Alk Phos) 79 39-136 [facility]2017-01-23 07:06:00 Test Item Value Reference Range Interpretation Comments Globulin (test code = Globulin) 3.2 2.7-4.2 [facility]2017-01-23 07:06:00 Test Item Value Reference Range Interpretation Comments ALT (test code = ALT) 20 See_Comment [Auto mated message] The system which ge nerated this result transmit óscar reference range : <=65. The reference range was not used to interpr et this result as kristine l/abnormal. [facility]2017-01-23 07:06:00 Test Item Value Reference Range Interpretation Comments B/C Ratio (test code = B/C Ratio) 115 6-25 [facility]bfydxwOQALOH3972-91-61 07:06:00 Test Item Value Reference Range Interpretation Comments Chol (test code = Chol) 69 [facility]2017-01-23 07:06:00 Test Item Value Reference Range Interpretation Comments Total Protein (test code = Total 6.4 6.4-8.4 Protein) [facility] [id number] 07:06:00 Test Item Value Reference Range Interpretation Comments Trig (test code = Trig) 50 [facility]2017-01-23 07:06:00 Test Item Value Reference Range Interpretation Comments AST (test code = AST) 6 See_Comment [Auto mated message] The system which ge nerated this result transmit óscar reference range : <=37. The reference range was not used to interpr et this result as kristine l/abnormal. [facility] HospitalKkzfbczKOKKAN0779-72-57 07:06:00 Test Item Value Reference Range Interpretation Comments HDL (test code = HDL) 33 [facility]2017-01-23 07:06:00 Test Item Value Reference Range Interpretation Comments Bili Total (test code = Bili Total) 0.4 0.2-1.3 [facility] HospitalWvqcxroYESVMH2356-61-28 07:06:00 Test Item Value Reference Range Interpretation Comments LDL (Calculated) (test code = LDL 26 (Calculated)) [facility]2017-01-23 07:06:00 Test Item Value Reference Range Interpretation Comments Albumin Lvl (test code = Albumin Lvl) 3.2 3.5-5.0 [facility] HospitalEtqnuecIRQQUZ2316-49-73 07:06:00 Test Item Value Reference Range Interpretation Comments CHD Risk (test code = CHD Risk) 2.09 4.00-7.30 [facility] [id number] 07:06:00 Test Item Value Reference Range Interpretation Comments Alk Phos (test code = Alk Phos) 79 39-136 [facility] CenterYkjzmknDKQSTM8993-67-13 07:06:00 Test Item Value Reference Range Interpretation Comments VLDL (test code = VLDL) 10 [facility] CenterCHEM [id number] 07:06:00 Test Item Value Reference Range Interpretation Comments ALT (test code = ALT) 20 See_Comment [Auto mated message] The system which ge nerated this result transmit óscar reference range : <=65. The reference range was not used to interpr et this result as kristine l/abnormal. [facility] CenterMnavumjMLOPGBJOB7889-95-99 07:06:00 Test Item Value Reference Range Interpretation Comments Myoglobin (test code = Myoglobin) 37 25-72 [facility] CenterQzfhfmoZNRFSZ5247-05-89 07:06:00 Test Item Value Reference Range Interpretation Comments Chol (test code = Chol) 69 [facility] CenterJjuwpqvLYFPUH5094-82-40 07:06:00 Test Item Value Reference Range Interpretation Comments Trig (test code = Trig) 50 [facility] CenterPARATHYROID [id number] 07:06:00 Test Item Value Reference Range Interpretation Comments Ca Ion WB (test code = Ca Ion WB) 1.33 1.05-1.25 [facility] CenterFjxvzpjGIXIRU7937-85-85 07:06:00 Test Item Value Reference Range Interpretation Comments HDL (test code = HDL) 33 [facility] CenterannPARATHYROID [id number] 07:06:00 Test Item Value Reference Range Interpretation Comments Ca Norm WB (test code = Ca Norm WB) 1.25 1.05-1.25 [facility] CenterMgiijycQCACHB1977-05-23 07:06:00 Test Item Value Reference Range Interpretation Comments LDL (Calculated) (test code = LDL 26 (Calculated)) [facility] [id number] 07:06:00 Test Item Value Reference Range Interpretation Comments Hgb A1C (test code = Hgb A1C) 6.5 [facility] CenterZuteuncGNXLQH0295-76-77 07:06:00 Test Item Value Reference Range Interpretation Comments CHD Risk (test code = CHD Risk) 2.09 4.00-7.30 [facility] AND [id number] 07:06:00 Test Item Value Reference Range Interpretation Comments UA Urobilinogen (test code = UA <=1.0 mg/dL 0.1-1.0 Urobilinogen) [facility] [id number] 07:06:00 Test Item Value Reference Range Interpretation Comments VLDL (test code = VLDL) 10 [facility] AND [id number] 07:06:00 Test Item Value Reference Range Interpretation Comments UA Turbidity (test code = Clear (08/16/16 1:06 UA Turbidity) AM) [facility] CenterNmbssnqWHQKLSRBC6610-38-62 07:06:00 Test Item Value Reference Range Interpretation Comments Myoglobin (test code = Myoglobin) 37 25-72 [facility] AND [id number] 07:06:00 Test Item Value Reference Range Interpretation Comments UA Spec Grav (test code = UA Spec Grav) 1.016 [facility] CenterPARATHYROID [id number] 07:06:00 Test Item Value Reference Range Interpretation Comments Ca Ion WB (test code = Ca Ion WB) 1.33 1.05-1.25 [facility] AND [id number] 07:06:00 Test Item Value Reference Range Interpretation Comments UA Protein (test code = UA Negative mg/dL Protein) [facility] CenterPARATHYROID [id number] 07:06:00 Test Item Value Reference Range Interpretation Comments Ca Norm WB (test code = Ca Norm WB) 1.25 1.05-1.25 [facility] AND [id number] 07:06:00 Test Item Value Reference Range Interpretation Comments UA pH (test code = UA pH) 5.5 5.0-8.0 [facility] CenterSPECIAL [id number] 07:06:00 Test Item Value Reference Range Interpretation Comments Hgb A1C (test code = Hgb A1C) 6.5 [facility] AND [id number] 07:06:00 Test Item Value Reference Range Interpretation Comments UA Color (test code = Yellow *NA*(08/16/16 UA Color) 1:06 AM) [facility] AND [id number] 07:06:00 Test Item Value Reference Range Interpretation Comments UA Urobilinogen (test code = UA <=1.0 mg/dL 0.1-1.0 Urobilinogen) [facility] AND [id number] 07:06:00 Test Item Value Reference Range Interpretation Comments UA CaOx Kelli (test code = UA Occasional /HPF CaOx Kelli) [facility] AND [id number] 07:06:00 Test Item Value Reference Range Interpretation Comments UA Turbidity (test code = Clear (08/16/16 1:06 UA Turbidity) AM) [facility] AND [id number] 07:06:00 Test Item Value Reference Range Interpretation Comments UA WBC (test code = 2 See_Comment [Automa óscar message] The UA WBC) system which ge nerated this result transmit óscar reference range : <=5. The reference range was not used to interpr et this result as kristine l/abnormal. [facility] AND [id number] 07:06:00 Test Item Value Reference Range Interpretation Comments UA Spec Grav (test code = UA Spec Grav) 1.016 [facility] AND [id number] 07:06:00 Test Item Value Reference Range Interpretation Comments UA Mucus (test code = UA Mucus) Few /LPF [facility] AND [id number] 07:06:00 Test Item Value Reference Range Interpretation Comments UA Protein (test code = UA Negative mg/dL Protein) [facility] AND [id number] 07:06:00 Test Item Value Reference Range Interpretation Comments UA Leuk Est (test Negative (08/16/16 1:06 code = UA Leuk Est) AM) [facility] AND [id number] 07:06:00 Test Item Value Reference Range Interpretation Comments UA pH (test code = UA pH) 5.5 5.0-8.0 [facility] AND [id number] 07:06:00 Test Item Value Reference Range Interpretation Comments UA RBC (test code = 1 See_Comment [Automa óscar message] The UA RBC) system which ge nerated this result transmit óscar reference range : <=2. The reference range was not used to interpr et this result as kristine l/abnormal. [facility] AND [id number] 07:06:00 Test Item Value Reference Range Interpretation Comments UA Blood (test code = Negative (08/16/16 1:06 UA Blood) AM) [facility] AND [id number] 07:06:00 Test Item Value Reference Range Interpretation Comments UA Color (test code = Yellow *NA*(08/16/16 UA Color) 1:06 AM) [facility] AND [id number] 07:06:00 Test Item Value Reference Range Interpretation Comments UA Glucose (test code = UA Glucose) 50 mg/dL [facility] AND [id number] 07:06:00 Test Item Value Reference Range Interpretation Comments UA CaOx Kelli (test code = UA Occasional /HPF CaOx Kelli) [facility] AND [id number] 07:06:00 Test Item Value Reference Range Interpretation Comments UA Bili (test code = Negative *NA*(08/16/16 UA Bili) 1:06 AM) [facility] AND [id number] 07:06:00 Test Item Value Reference Range Interpretation Comments UA WBC (test code = 2 See_Comment [Automa óscar message] The UA WBC) system which ge nerated this result transmit óscar reference range : <=5. The reference range was not used to interpr et this result as kristine l/abnormal. [facility] AND [id number] 07:06:00 Test Item Value Reference Range Interpretation Comments UA Ketones (test code = UA Negative mg/dL Ketones) [facility] AND [id number] 07:06:00 Test Item Value Reference Range Interpretation Comments UA Mucus (test code = UA Mucus) Few /LPF [facility] AND [id number] 07:06:00 Test Item Value Reference Range Interpretation Comments UA Nitrite (test code Negative (08/16/16 1:06 = UA Nitrite) AM) [facility] AND [id number] 07:06:00 Test Item Value Reference Range Interpretation Comments UA Leuk Est (test Negative (08/16/16 1:06 code = UA Leuk Est) AM) [facility] AND [id number] 07:06:00 Test Item Value Reference Range Interpretation Comments UA Sq Epi (test code = UA Sq Epi) None Seen [facility] AND [id number] 07:06:00 Test Item Value Reference Range Interpretation Comments UA RBC (test code = 1 See_Comment [Automa óscar message] The UA RBC) system which ge nerated this result transmit óscar reference range : <=2. The reference range was not used to interpr et this result as kristine l/abnormal. [facility] AND [id number] 07:06:00 Test Item Value Reference Range Interpretation Comments UA Hyal Cast (test 4 See_Comment [Automat ed message] The code = UA Hyal Cast) system which generated this result transmit óscar reference range : <=2. The reference range was not used to interpr et this result as kristine l/abnormal. [facility] AND [id number] 07:06:00 Test Item Value Reference Range Interpretation Comments UA Blood (test code = Negative (08/16/16 1:06 UA Blood) AM) [facility] AND [id number] 07:06:00 Test Item Value Reference Range Interpretation Comments UA Glucose (test code = UA Glucose) 50 mg/dL [facility] AND [id number] 07:06:00 Test Item Value Reference Range Interpretation Comments UA Bili (test code = Negative *NA*(08/16/16 UA Bili) 1:06 AM) [facility] AND [id number] 07:06:00 Test Item Value Reference Range Interpretation Comments UA Ketones (test code = UA Negative mg/dL Ketones) [facility] AND [id number] 07:06:00 Test Item Value Reference Range Interpretation Comments UA Nitrite (test code Negative (08/16/16 1:06 = UA Nitrite) AM) [facility] AND [id number] 07:06:00 Test Item Value Reference Range Interpretation Comments UA Sq Epi (test code = UA Sq Epi) None Seen [facility] AND [id number] 07:06:00 Test Item Value Reference Range Interpretation Comments UA Hyal Cast (test 4 See_Comment [Automat ed message] The code = UA Hyal Cast) system which generated this result transmit óscar reference range : <=2. The reference range was not used to interpr et this result as kristine l/abnormal. [facility] CenterBACTERIAL - [id number] 07:06:00 Test Item Value Reference Range Interpretation Comments MRSA by PCR (test Positive 1*ABN*(08/16/16 code = MRSA by PCR) 1:06 AM) [employer] [facility] [id number] 07:06:00 Test Item Value Reference Range Interpretation Comments Antibody Scrn (test Negative (08/16/16 1:06 code = Antibody Scrn) AM) [employer] [facility] [id number] 07:06:00 Test Item Value Reference Range Interpretation Comments ABO/Rh (test code = ABO/Rh) A NEG [facility] [employer] [id number] 07:06:00 Test Item Value Reference Range Interpretation Comments Troponin-I (test code 0.05 See_Comment [Auto mated message] The = Troponin-I) system which g enerated this result transmit óscar reference range : <=0.40. The reference r delaney was not used to interpr et this result as kristine l/abnormal. [employer] [id number] 07:06:00 Test Item Value Reference Range Interpretation Comments Total CK (test code = Total CK) 40 12-191 [facility] [employer]2017-01-23 07:06:00 Test Item Value Reference Range Interpretation Comments Troponin-T (test code no gt See_Comment [Auto mated message] The = Troponin-T) system which g enerated this result transmit óscar reference range : <=0.100. The reference r delaney was not used to interpr et this result as kristine l/abnormal. [employer] [id number] 07:06:00 Test Item Value Reference Range Interpretation Comments A/G Ratio (test code = A/G Ratio) 1.0 0.7-1.6 [employer] - [id number] 07:06:00 Test Item Value Reference Range Interpretation Comments MRSA by PCR (test Positive 1*ABN*(08/16/16 code = MRSA by PCR) 1:06 AM) [employer] [id number] 07:06:00 Test Item Value Reference Range Interpretation Comments Globulin (test code = Globulin) 3.2 2.7-4.2 [employer] [id number] 07:06:00 Test Item Value Reference Range Interpretation Comments Antibody Scrn (test Negative (08/16/16 1:06 code = Antibody Scrn) AM) [facility] [employer] [id number] 07:06:00 Test Item Value Reference Range Interpretation Comments B/C Ratio (test code = B/C Ratio) 115 6-25 [facility] CenterAria Retirement SolutionsOOD BANK [id number] 07:06:00 Test Item Value Reference Range Interpretation Comments ABO/Rh (test code = ABO/Rh) A NEG [facility] [employer] [id number] 07:06:00 Test Item Value Reference Range Interpretation Comments Total Protein (test code = Total 6.4 6.4-8.4 Protein) [facility] [employer] [id number] 07:06:00 Test Item Value Reference Range Interpretation Comments Troponin-I (test code 0.05 See_Comment [Auto mated message] The = Troponin-I) system which g enerated this result transmit óscar reference range : <=0.40. The reference r delaney was not used to interpr et this result as kristine l/abnormal. [facility] [employer]2017-01-23 07:06:00 Test Item Value Reference Range Interpretation Comments AST (test code = AST) 6 See_Comment [Auto mated message] The system which ge nerated this result transmit óscar reference range : <=37. The reference range was not used to interpr et this result as kristine l/abnormal. [facility] [employer]2017-01-23 07:06:00 Test Item Value Reference Range Interpretation Comments Total CK (test code = Total CK) 40 12-191 [facility] [employer] [id number] 07:06:00 Test Item Value Reference Range Interpretation Comments Bili Total (test code = Bili Total) 0.4 0.2-1.3 [facility] [employer]2017-01-23 07:06:00 Test Item Value Reference Range Interpretation Comments Albumin Lvl (test code = Albumin Lvl) 3.2 3.5-5.0 [facility] [employer]2017-01-23 07:06:00 Test Item Value Reference Range Interpretation Comments Troponin-T (test code no gt See_Comment [Auto mated message] The = Troponin-T) system which g enerated this result transmit óscar reference range : <=0.100. The reference r delaney was not used to interpr et this result as kristine l/abnormal. [facility]2017-01-23 07:06:00 Test Item Value Reference Range Interpretation Comments Alk Phos (test code = Alk Phos) 79 39-136 [facility]2017-01-23 07:06:00 Test Item Value Reference Range Interpretation Comments A/G Ratio (test code = A/G Ratio) 1.0 0.7-1.6 [facility]2017-01-23 07:06:00 Test Item Value Reference Range Interpretation Comments Globulin (test code = Globulin) 3.2 2.7-4.2 [facility]2017-01-23 07:06:00 Test Item Value Reference Range Interpretation Comments ALT (test code = ALT) 20 See_Comment [Auto mated message] The system which ge nerated this result transmit óscar reference range : <=65. The reference range was not used to interpr et this result as kristine l/abnormal. [id number] 07:06:00 Test Item Value Reference Range Interpretation Comments Chol (test code = Chol) 69 [facility]2017-01-23 07:06:00 Test Item Value Reference Range Interpretation Comments B/C Ratio (test code = B/C Ratio) 115 6-25 [facility] [id number] 07:06:00 Test Item Value Reference Range Interpretation Comments Trig (test code = Trig) 50 [facility]2017-01-23 07:06:00 Test Item Value Reference Range Interpretation Comments Total Protein (test code = Total 6.4 6.4-8.4 Protein) [facility] [id number] 07:06:00 Test Item Value Reference Range Interpretation Comments HDL (test code = HDL) 33 [facility]2017-01-23 07:06:00 Test Item Value Reference Range Interpretation Comments AST (test code = AST) 6 See_Comment [Auto mated message] The system which ge nerated this result transmit óscar reference range : <=37. The reference range was not used to interpr et this result as kristine l/abnormal. [facility] [id number] 07:06:00 Test Item Value Reference Range Interpretation Comments LDL (Calculated) (test code = LDL 26 (Calculated)) [place] [id number] 07:06:00 Test Item Value Reference Range Interpretation Comments Bili Total (test code = Bili Total) 0.4 0.2-1.3 [facility] [id number] 07:06:00 Test Item Value Reference Range Interpretation Comments CHD Risk (test code = CHD Risk) 2.09 4.00-7.30 [facility] CenterDigital Room, Inc [id number] 07:06:00 Test Item Value Reference Range Interpretation Comments Albumin Lvl (test code = Albumin Lvl) 3.2 3.5-5.0 [facility] [id number] 07:06:00 Test Item Value Reference Range Interpretation Comments VLDL (test code = VLDL) 10 [facility] [id number] 07:06:00 Test Item Value Reference Range Interpretation Comments Myoglobin (test code = Myoglobin) 37 25-72 [facility] Center[facility] Inc [id number] 07:06:00 Test Item Value Reference Range Interpretation Comments Alk Phos (test code = Alk Phos) 79 39-136 [facility]ATHY[facility]ID [id number] 07:06:00 Test Item Value Reference Range Interpretation Comments Ca Ion WB (test code = Ca Ion WB) 1.33 1.05-1.25 [facility] [id number] 07:06:00 Test Item Value Reference Range Interpretation Comments ALT (test code = ALT) 20 See_Comment [Auto mated message] The system which ge nerated this result transmit óscar reference range : <=65. The reference range was not used to interpr et this result as kristine l/abnormal. [facility] HospitalATHYROID [id number] 07:06:00 Test Item Value Reference Range Interpretation Comments Ca Norm WB (test code = Ca Norm WB) 1.25 1.05-1.25 [facility] CenterXtaqigrUFCFSS6957-09-05 07:06:00 Test Item Value Reference Range Interpretation Comments Chol (test code = Chol) 69 [facility] [id number] 07:06:00 Test Item Value Reference Range Interpretation Comments Hgb A1C (test code = Hgb A1C) 6.5 [facility] [id number] 07:06:00 Test Item Value Reference Range Interpretation Comments Trig (test code = Trig) 50 [facility] [id number] 07:06:00 Test Item Value Reference Range Interpretation Comments UA Urobilinogen (test code = UA <=1.0 mg/dL 0.1-1.0 Urobilinogen) [facility] [id number] 07:06:00 Test Item Value Reference Range Interpretation Comments HDL (test code = HDL) 33 [facility]annSA[facility] [id number] 07:06:00 Test Item Value Reference Range Interpretation Comments UA Turbidity (test code = Clear (08/16/16 1:06 UA Turbidity) AM) [facility] TboyoiiADVRSP7711-84-01 07:06:00 Test Item Value Reference Range Interpretation Comments LDL (Calculated) (test code = LDL 26 (Calculated)) [facility]ann[facility] [id number] 07:06:00 Test Item Value Reference Range Interpretation Comments UA Spec Grav (test code = UA Spec Grav) 1.016 [facility] [id number] 07:06:00 Test Item Value Reference Range Interpretation Comments CHD Risk (test code = CHD Risk) 2.09 4.00-7.30 [facility]ann[facility] [id number] 07:06:00 Test Item Value Reference Range Interpretation Comments UA Protein (test code = UA Negative mg/dL Protein) [facility] EdejajbTYDQXO2229-59-53 07:06:00 Test Item Value Reference Range Interpretation Comments VLDL (test code = VLDL) 10 [facility] AND [id number] 07:06:00 Test Item Value Reference Range Interpretation Comments UA pH (test code = UA pH) 5.5 5.0-8.0 [facility] GvywtrzMEOBGDIOY8481-88-78 07:06:00 Test Item Value Reference Range Interpretation Comments Myoglobin (test code = Myoglobin) 37 25-72 [facility] CenterannURINE AND [id number] 07:06:00 Test Item Value Reference Range Interpretation Comments UA Color (test code = Yellow *NA*(08/16/16 UA Color) 1:06 AM) [facility] CenterannURINE AND [id number] 07:06:00 Test Item Value Reference Range Interpretation Comments UA CaOx Kelli (test code = UA Occasional /HPF CaOx Kelli) [facility] CenterannPARATHYROID [id number] 07:06:00 Test Item Value Reference Range Interpretation Comments Ca Ion WB (test code = Ca Ion WB) 1.33 1.05-1.25 [facility] AND [id number] 07:06:00 Test Item Value Reference Range Interpretation Comments UA WBC (test code = 2 See_Comment [Automa óscar message] The UA WBC) system which ge nerated this result transmit óscar reference range : <=5. The reference range was not used to interpr et this result as kristine l/abnormal. [facility] CenterPARATHYROID [id number] 07:06:00 Test Item Value Reference Range Interpretation Comments Ca Norm WB (test code = Ca Norm WB) 1.25 1.05-1.25 [facility] AND [id number] 07:06:00 Test Item Value Reference Range Interpretation Comments UA Mucus (test code = UA Mucus) Few /LPF [facility] [facility] AND [id number] 07:06:00 Test Item Value Reference Range Interpretation Comments UA Leuk Est (test Negative (08/16/16 1:06 code = UA Leuk Est) AM) [facility] [id number] 07:06:00 Test Item Value Reference Range Interpretation Comments Hgb A1C (test code = Hgb A1C) 6.5 [facility] AND [id number] 07:06:00 Test Item Value Reference Range Interpretation Comments UA RBC (test code = 1 See_Comment [Automa óscar message] The UA RBC) system which ge nerated this result transmit óscar reference range : <=2. The reference range was not used to interpr et this result as kristine l/abnormal. [facility] AND [id number] 07:06:00 Test Item Value Reference Range Interpretation Comments UA Blood (test code = Negative (08/16/16 1:06 UA Blood) AM) [facility] AND [id number] 07:06:00 Test Item Value Reference Range Interpretation Comments UA Urobilinogen (test code = UA <=1.0 mg/dL 0.1-1.0 Urobilinogen) [facility] AND [id number] 07:06:00 Test Item Value Reference Range Interpretation Comments UA Glucose (test code = UA Glucose) 50 mg/dL [facility] AND [id number] 07:06:00 Test Item Value Reference Range Interpretation Comments UA Turbidity (test code = Clear (08/16/16 1:06 UA Turbidity) AM) [facility] AND [id number] 07:06:00 Test Item Value Reference Range Interpretation Comments UA Bili (test code = Negative *NA*(08/16/16 UA Bili) 1:06 AM) [facility] AND [id number] 07:06:00 Test Item Value Reference Range Interpretation Comments UA Spec Grav (test code = UA Spec Grav) 1.016 [facility] AND [id number] 07:06:00 Test Item Value Reference Range Interpretation Comments UA Ketones (test code = UA Negative mg/dL Ketones) [facility] AND [id number] 07:06:00 Test Item Value Reference Range Interpretation Comments UA Protein (test code = UA Negative mg/dL Protein) [facility] AND [id number] 07:06:00 Test Item Value Reference Range Interpretation Comments UA Nitrite (test code Negative (08/16/16 1:06 = UA Nitrite) AM) [facility] AND [id number] 07:06:00 Test Item Value Reference Range Interpretation Comments UA pH (test code = UA pH) 5.5 5.0-8.0 [facility] AND [id number] 07:06:00 Test Item Value Reference Range Interpretation Comments UA Sq Epi (test code = UA Sq Epi) None Seen [facility] AND [id number] 07:06:00 Test Item Value Reference Range Interpretation Comments UA Color (test code = Yellow *NA*(08/16/16 UA Color) 1:06 AM) [facility] AND [id number] 07:06:00 Test Item Value Reference Range Interpretation Comments UA Hyal Cast (test 4 See_Comment [Automat ed message] The code = UA Hyal Cast) system which generated this result transmit óscar reference range : <=2. The reference range was not used to interpr et this result as kristine l/abnormal. [facility] AND [id number] 07:06:00 Test Item Value Reference Range Interpretation Comments UA CaOx Kelli (test code = UA Occasional /HPF CaOx Kelli) [facility] AND [id number] 07:06:00 Test Item Value Reference Range Interpretation Comments UA WBC (test code = 2 See_Comment [Automa óscar message] The UA WBC) system which ge nerated this result transmit óscar reference range : <=5. The reference range was not used to interpr et this result as kristine l/abnormal. [facility] AND [id number] 07:06:00 Test Item Value Reference Range Interpretation Comments UA Mucus (test code = UA Mucus) Few /LPF [facility] AND [id number] 07:06:00 Test Item Value Reference Range Interpretation Comments UA Leuk Est (test Negative (08/16/16 1:06 code = UA Leuk Est) AM) [facility] AND [id number] 07:06:00 Test Item Value Reference Range Interpretation Comments UA RBC (test code = 1 See_Comment [Automa óscar message] The UA RBC) system which ge nerated this result transmit óscar reference range : <=2. The reference range was not used to interpr et this result as kristine l/abnormal. [facility] AND [id number] 07:06:00 Test Item Value Reference Range Interpretation Comments UA Blood (test code = Negative (08/16/16 1:06 UA Blood) AM) [facility] AND [id number] 07:06:00 Test Item Value Reference Range Interpretation Comments UA Glucose (test code = UA Glucose) 50 mg/dL [facility] AND [id number] 07:06:00 Test Item Value Reference Range Interpretation Comments UA Bili (test code = Negative *NA*(08/16/16 UA Bili) 1:06 AM) [facility] AND [id number] 07:06:00 Test Item Value Reference Range Interpretation Comments UA Ketones (test code = UA Negative mg/dL Ketones) [facility] AND [id number] 07:06:00 Test Item Value Reference Range Interpretation Comments UA Nitrite (test code Negative (08/16/16 1:06 = UA Nitrite) AM) [facility] AND [id number] 07:06:00 Test Item Value Reference Range Interpretation Comments UA Sq Epi (test code = UA Sq Epi) None Seen [facility] AND [id number] 07:06:00 Test Item Value Reference Range Interpretation Comments UA Rupal oJhn (test 4 See_Comment [Automat ed message] The code = UA Hyal Cast) system which generated this result transmit óscar reference range : <=2. The reference range was not used to interpr et this result as kristine l/abnormal. [facility]AtyfhgoMEDDVJQWFS0702-18-99 14:35:00 Test Item Value Reference Range Interpretation Comments PT (test code = PT) 14.3 s 12.0-14.7 [facility] HospitalMifhsylLAAWIMTZQA6998-51-15 14:35:00 Test Item Value Reference Range Interpretation Comments INR (test code = INR) 1.08 0.85-1.17 [facility] HospitalYfpzzluZDMCDFJRUT2519-51-77 14:35:00 Test Item Value Reference Range Interpretation Comments PTT (test code = PTT) 66.6 s 22.9-35.8 [facility] HospitalAmfryzzFXAWPLAKNJ3806-85-10 14:35:00 Test Item Value Reference Range Interpretation Comments PT (test code = PT) 14.3 s 12.0-14.7 [facility] HospitalCmsflpxBKRYCWBRIH3258-93-77 14:35:00 Test Item Value Reference Range Interpretation Comments INR (test code = INR) 1.08 0.85-1.17 [facility] HospitalQadnmceQFLNFEMGWM6445-52-46 14:35:00 Test Item Value Reference Range Interpretation Comments PTT (test code = PTT) 66.6 s 22.9-35.8 [facility] HospitalXhnmwusTWWNGAXQLT5130-81-16 14:35:00 Test Item Value Reference Range Interpretation Comments PT (test code = PT) 14.3 s 12.0-14.7 [facility] HospitalGvovgakADEISVKZZX7665-00-77 14:35:00 Test Item Value Reference Range Interpretation Comments INR (test code = INR) 1.08 0.85-1.17 [facility] HospitalDcuyxevRIBSAHMYFX8498-56-40 14:35:00 Test Item Value Reference Range Interpretation Comments PTT (test code = PTT) 66.6 s 22.9-35.8 [facility] HospitalFwaslekHLYLWVEDQI9888-37-52 14:35:00 Test Item Value Reference Range Interpretation Comments PT (test code = PT) 14.3 s 12.0-14.7 [facility] HospitalKttehmbUACETEHLPZ9071-07-19 14:35:00 Test Item Value Reference Range Interpretation Comments INR (test code = INR) 1.08 0.85-1.17 [facility] HospitalPpurpaeMUMMJZOJOU0038-41-70 14:35:00 Test Item Value Reference Range Interpretation Comments PTT (test code = PTT) 66.6 s 22.9-35.8 [facility] HospitalCloffzqLOBMTGTKYE0972-69-64 08:46:00 Test Item Value Reference Range Interpretation Comments INR (test code = INR) 1.07 0.85-1.17 [facility] HospitalOvrezboEVJXDIINBP1991-79-66 08:46:00 Test Item Value Reference Range Interpretation Comments PT (test code = PT) 14.2 s 12.0-14.7 [facility] HospitalOfwyfsoSNSCUYTRKP4713-59-59 08:46:00 Test Item Value Reference Range Interpretation Comments PTT (test code = PTT) 73.4 s 22.9-35.8 [place] [id number] 08:46:00 Test Item Value Reference Range Interpretation Comments INR (test code = INR) 1.07 0.85-1.17 [facility] HospitalYzzzowaBJDBXMOBHY9801-77-03 08:46:00 Test Item Value Reference Range Interpretation Comments PT (test code = PT) 14.2 s 12.0-14.7 [facility] HospitalZmnlrtcSVIBXVJDBJ4405-76-20 08:46:00 Test Item Value Reference Range Interpretation Comments PTT (test code = PTT) 73.4 s 22.9-35.8 [facility] HospitalTedqgrhOMWZULWJEL3278-05-62 08:46:00 Test Item Value Reference Range Interpretation Comments INR (test code = INR) 1.07 0.85-1.17 [facility] HospitalVgatfvpGXJFFNMZKX9473-45-00 08:46:00 Test Item Value Reference Range Interpretation Comments PT (test code = PT) 14.2 s 12.0-14.7 [facility] HospitalTtdgihfXGBQYSDNAL9357-19-79 08:46:00 Test Item Value Reference Range Interpretation Comments PTT (test code = PTT) 73.4 s 22.9-35.8 [facility] HospitalHdjcszfINYCJONKBJ9736-07-29 08:46:00 Test Item Value Reference Range Interpretation Comments INR (test code = INR) 1.07 0.85-1.17 [facility] HospitalFsvyjgoGWYLZHEJYU0688-87-93 08:46:00 Test Item Value Reference Range Interpretation Comments PT (test code = PT) 14.2 s 12.0-14.7 [facility] HospitalRnhjoouFXKGJQMVVS1965-76-95 08:46:00 Test Item Value Reference Range Interpretation Comments PTT (test code = PTT) 73.4 s 22.9-35.8 [facility] HospitalYelssyyMPAZPWKEXG2136-71-35 01:03:00 Test Item Value Reference Range Interpretation Comments PTT (test code = PTT) 49.7 s 22.9-35.8 [place] 831546-03-20 01:03:00 Test Item Value Reference Range Interpretation Comments PTT (test code = PTT) 49.7 s 22.9-35.8 [facility] HospitalBhjdnuxEAGDCBICKX5650-28-46 01:03:00 Test Item Value Reference Range Interpretation Comments PTT (test code = PTT) 49.7 s 22.9-35.8 [facility] HospitalEyjoadtQSDTPYMBQF5105-62-70 01:03:00 Test Item Value Reference Range Interpretation Comments PTT (test code = PTT) 49.7 s 22.9-35.8 [facility]2016-03-19 07:07:00 Test Item Value Reference Range Interpretation Comments eGFR (test code = eGFR) 79 [facility]2016-03-19 07:07:00 Test Item Value Reference Range Interpretation Comments Glucose Lvl (test code = Glucose Lvl) 167 70-99 [facility]2016-03-19 07:07:00 Test Item Value Reference Range Interpretation Comments Calcium Lvl (test code = Calcium Lvl) 8.3 8.5-10.5 [facility]2016-03-19 07:07:00 Test Item Value Reference Range Interpretation Comments CO2 (test code = CO2) 24 24-32 [facility]2016-03-19 07:07:00 Test Item Value Reference Range Interpretation Comments BUN (test code = BUN) 12 7-22 [facility]2016-03-19 07:07:00 Test Item Value Reference Range Interpretation Comments Creatinine Lvl (test code = Creatinine 0.98 0.50-1.40 Lvl) [facility]2016-03-19 07:07:00 Test Item Value Reference Range Interpretation Comments Chloride Lvl (test code = Chloride Lvl) 103 95-109 [facility]2016-03-19 07:07:00 Test Item Value Reference Range Interpretation Comments eGFR (test code = eGFR) 79 [facility]2016-03-19 07:07:00 Test Item Value Reference Range Interpretation Comments Sodium Lvl (test code = Sodium Lvl) 138 135-145 [facility]2016-03-19 07:07:00 Test Item Value Reference Range Interpretation Comments Glucose Lvl (test code = Glucose Lvl) 167 70-99 [facility]2016-03-19 07:07:00 Test Item Value Reference Range Interpretation Comments Potassium Lvl (test code = Potassium 4.2 3.5-5.1 Lvl) [facility]2016-03-19 07:07:00 Test Item Value Reference Range Interpretation Comments Calcium Lvl (test code = Calcium Lvl) 8.3 8.5-10.5 [facility]2016-03-19 07:07:00 Test Item Value Reference Range Interpretation Comments AGAP (test code = AGAP) 15.2 10.0-20.0 [facility]2016-03-19 07:07:00 Test Item Value Reference Range Interpretation Comments CO2 (test code = CO2) 24 24-32 [facility] HospitalHljzqbxAMTNETPDZQ9660-07-24 07:07:00 Test Item Value Reference Range Interpretation Comments Hgb (test code = Hgb) 9.9 14.0-18.0 [facility]2016-03-19 07:07:00 Test Item Value Reference Range Interpretation Comments BUN (test code = BUN) 12 7-22 [facility] HospitalZrvepxfYUJHUWRBZQ8455-15-34 07:07:00 Test Item Value Reference Range Interpretation Comments RBC (test code = RBC) 3.40 4.70-6.10 [facility]2016-03-19 07:07:00 Test Item Value Reference Range Interpretation Comments Creatinine Lvl (test code = Creatinine 0.98 0.50-1.40 Lvl) [facility] HospitalKrybgxtHIGXOUDCWK9332-52-11 07:07:00 Test Item Value Reference Range Interpretation Comments WBC (test code = WBC) 5.0 3.7-10.4 [facility]2016-03-19 07:07:00 Test Item Value Reference Range Interpretation Comments Chloride Lvl (test code = Chloride Lvl) 103 95-109 [facility] HospitalDitaktiIGJBEGFIND7590-31-42 07:07:00 Test Item Value Reference Range Interpretation Comments MPV (test code = MPV) 7.9 7.4-10.4 [facility]2016-03-19 07:07:00 Test Item Value Reference Range Interpretation Comments Sodium Lvl (test code = Sodium Lvl) 138 135-145 [facility] HospitalNsswaqzBGOLGGGTEL3143-91-36 07:07:00 Test Item Value Reference Range Interpretation Comments Platelet (test code = Platelet) 218 133-450 [facility]2016-03-19 07:07:00 Test Item Value Reference Range Interpretation Comments Potassium Lvl (test code = Potassium 4.2 3.5-5.1 Lvl) [facility] HospitalSljjlusYJXWMXHYBY4715-28-47 07:07:00 Test Item Value Reference Range Interpretation Comments MCHC (test code = MCHC) 33.3 32.0-36.0 [facility]2016-03-19 07:07:00 Test Item Value Reference Range Interpretation Comments AGAP (test code = AGAP) 15.2 10.0-20.0 [facility] HospitalHgogxaaORIHENPAFT6943-06-45 07:07:00 Test Item Value Reference Range Interpretation Comments MCH (test code = MCH) 29.0 pg 27.0-31.0 [facility] HospitalLsdldowXFPZXXOYVG8407-41-65 07:07:00 Test Item Value Reference Range Interpretation Comments Hgb (test code = Hgb) 9.9 14.0-18.0 [facility] HospitalMkxkobpWZFYYPGWIA1411-91-72 07:07:00 Test Item Value Reference Range Interpretation Comments MCV (test code = MCV) 87.0 80.0-94.0 [facility] HospitalUzrtduwYVUESLEFJH9134-80-73 07:07:00 Test Item Value Reference Range Interpretation Comments RBC (test code = RBC) 3.40 4.70-6.10 [facility] HospitalEebqdvtNZUXHBNNME0007-53-13 07:07:00 Test Item Value Reference Range Interpretation Comments Hct (test code = Hct) 29.6 42.0-54.0 [facility] HospitalUphmppwRAPHMVQSMW9310-37-82 07:07:00 Test Item Value Reference Range Interpretation Comments WBC (test code = WBC) 5.0 3.7-10.4 [facility] HospitalBkvwzvtLSPTEGWXLG9751-16-09 07:07:00 Test Item Value Reference Range Interpretation Comments RDW (test code = RDW) 14.8 11.5-14.5 [facility] HospitalUzavawzTZBSBKWNXL6653-46-23 07:07:00 Test Item Value Reference Range Interpretation Comments MPV (test code = MPV) 7.9 7.4-10.4 [facility] HospitalOruwuvzKFSBZPIXNX7266-45-05 07:07:00 Test Item Value Reference Range Interpretation Comments Platelet (test code = Platelet) 218 133-450 [facility] HospitalUzooloqAKVQGZRZOF1188-48-81 07:07:00 Test Item Value Reference Range Interpretation Comments MCHC (test code = MCHC) 33.3 32.0-36.0 [facility] HospitalGpersaoNVTXCUAGUL2393-56-21 07:07:00 Test Item Value Reference Range Interpretation Comments MCH (test code = MCH) 29.0 pg 27.0-31.0 [facility] HospitalFobdyemBJGLYRAXPT9765-58-51 07:07:00 Test Item Value Reference Range Interpretation Comments MCV (test code = MCV) 87.0 80.0-94.0 [facility] HospitalUydajgyFRWPHGTUWV2401-04-24 07:07:00 Test Item Value Reference Range Interpretation Comments Hct (test code = Hct) 29.6 42.0-54.0 [facility] HospitalVcpdpwuPNWABANXLX5353-02-35 07:07:00 Test Item Value Reference Range Interpretation Comments RDW (test code = RDW) 14.8 11.5-14.5 [facility]2016-03-19 07:07:00 Test Item Value Reference Range Interpretation Comments eGFR (test code = eGFR) 79 [facility]2016-03-19 07:07:00 Test Item Value Reference Range Interpretation Comments Glucose Lvl (test code = Glucose Lvl) 167 70-99 [facility]2016-03-19 07:07:00 Test Item Value Reference Range Interpretation Comments Calcium Lvl (test code = Calcium Lvl) 8.3 8.5-10.5 [facility]2016-03-19 07:07:00 Test Item Value Reference Range Interpretation Comments CO2 (test code = CO2) 24 24-32 [facility]2016-03-19 07:07:00 Test Item Value Reference Range Interpretation Comments BUN (test code = BUN) 12 7-22 [facility]2016-03-19 07:07:00 Test Item Value Reference Range Interpretation Comments Creatinine Lvl (test code = Creatinine 0.98 0.50-1.40 Lvl) [facility]2016-03-19 07:07:00 Test Item Value Reference Range Interpretation Comments Chloride Lvl (test code = Chloride Lvl) 103 95-109 [facility]2016-03-19 07:07:00 Test Item Value Reference Range Interpretation Comments Sodium Lvl (test code = Sodium Lvl) 138 135-145 [facility]2016-03-19 07:07:00 Test Item Value Reference Range Interpretation Comments Potassium Lvl (test code = Potassium 4.2 3.5-5.1 Lvl) [facility]2016-03-19 07:07:00 Test Item Value Reference Range Interpretation Comments AGAP (test code = AGAP) 15.2 10.0-20.0 [facility] HospitalNigcaqfBIIVUWWAFR0638-52-66 07:07:00 Test Item Value Reference Range Interpretation Comments Hgb (test code = Hgb) 9.9 14.0-18.0 [facility] HospitalUkwxlayJGZFWAUQMX4212-52-68 07:07:00 Test Item Value Reference Range Interpretation Comments RBC (test code = RBC) 3.40 4.70-6.10 [facility] HospitalGyqnaflMKIZNRWKCP8101-84-89 07:07:00 Test Item Value Reference Range Interpretation Comments WBC (test code = WBC) 5.0 3.7-10.4 [facility]2016-03-19 07:07:00 Test Item Value Reference Range Interpretation Comments eGFR (test code = eGFR) 79 [facility] HospitalPhorqkwVKGTFTUHGA0351-59-41 07:07:00 Test Item Value Reference Range Interpretation Comments MPV (test code = MPV) 7.9 7.4-10.4 [facility]2016-03-19 07:07:00 Test Item Value Reference Range Interpretation Comments Glucose Lvl (test code = Glucose Lvl) 167 70-99 [facility] HospitalKafzfjgBTICQNKLRX5253-62-59 07:07:00 Test Item Value Reference Range Interpretation Comments Platelet (test code = Platelet) 218 133-450 [facility]2016-03-19 07:07:00 Test Item Value Reference Range Interpretation Comments Calcium Lvl (test code = Calcium Lvl) 8.3 8.5-10.5 [place] 831546-03-19 07:07:00 Test Item Value Reference Range Interpretation Comments MCHC (test code = MCHC) 33.3 32.0-36.0 [facility]2016-03-19 07:07:00 Test Item Value Reference Range Interpretation Comments CO2 (test code = CO2) 24 24-32 [place] 831546-03-19 07:07:00 Test Item Value Reference Range Interpretation Comments MCH (test code = MCH) 29.0 pg 27.0-31.0 [facility]2016-03-19 07:07:00 Test Item Value Reference Range Interpretation Comments BUN (test code = BUN) 12 7-22 [facility] HospitalDqokiqnOGAYUUGFUB7546-00-15 07:07:00 Test Item Value Reference Range Interpretation Comments MCV (test code = MCV) 87.0 80.0-94.0 [facility]2016-03-19 07:07:00 Test Item Value Reference Range Interpretation Comments Creatinine Lvl (test code = Creatinine 0.98 0.50-1.40 Lvl) [facility] HospitalMixexcpICZRIJTRNH2588-31-65 07:07:00 Test Item Value Reference Range Interpretation Comments Hct (test code = Hct) 29.6 42.0-54.0 [facility]2016-03-19 07:07:00 Test Item Value Reference Range Interpretation Comments Chloride Lvl (test code = Chloride Lvl) 103 95-109 [facility] HospitalWnlgspcLDVOEVQWKA3367-55-03 07:07:00 Test Item Value Reference Range Interpretation Comments RDW (test code = RDW) 14.8 11.5-14.5 [facility]2016-03-19 07:07:00 Test Item Value Reference Range Interpretation Comments Sodium Lvl (test code = Sodium Lvl) 138 135-145 [facility]2016-03-19 07:07:00 Test Item Value Reference Range Interpretation Comments Potassium Lvl (test code = Potassium 4.2 3.5-5.1 Lvl) [facility]2016-03-19 07:07:00 Test Item Value Reference Range Interpretation Comments AGAP (test code = AGAP) 15.2 10.0-20.0 [facility] HospitalPfnqwlyLYSVCHFWYU7897-12-62 07:07:00 Test Item Value Reference Range Interpretation Comments Hgb (test code = Hgb) 9.9 14.0-18.0 [facility] HospitalNsthyqbLAZTSNRQDF7393-27-09 07:07:00 Test Item Value Reference Range Interpretation Comments RBC (test code = RBC) 3.40 4.70-6.10 [facility] HospitalFptmdlvSFIEQDXPDB2024-51-56 07:07:00 Test Item Value Reference Range Interpretation Comments WBC (test code = WBC) 5.0 3.7-10.4 [facility] HospitalHduqbcdVJKPGZFTAV4192-76-73 07:07:00 Test Item Value Reference Range Interpretation Comments MPV (test code = MPV) 7.9 7.4-10.4 [facility] HospitalEkzrvniGJCFJTZAVN2907-66-52 07:07:00 Test Item Value Reference Range Interpretation Comments Platelet (test code = Platelet) 218 133-450 [facility] HospitalGsswacrALRVJQVNRK7067-55-68 07:07:00 Test Item Value Reference Range Interpretation Comments MCHC (test code = MCHC) 33.3 32.0-36.0 [facility] HospitalMjbxpadYLZTWLYLCX7849-05-07 07:07:00 Test Item Value Reference Range Interpretation Comments MCH (test code = MCH) 29.0 pg 27.0-31.0 [facility] HospitalVsjbinjCCBZJQTVKF9727-31-86 07:07:00 Test Item Value Reference Range Interpretation Comments MCV (test code = MCV) 87.0 80.0-94.0 [facility] HospitalSsprllvISMBTIRBGK1133-39-03 07:07:00 Test Item Value Reference Range Interpretation Comments Hct (test code = Hct) 29.6 42.0-54.0 [facility] HospitalXipctmqPQGSVLAQUL6093-84-84 07:07:00 Test Item Value Reference Range Interpretation Comments RDW (test code = RDW) 14.8 11.5-14.5 [facility] HospitalDezavlgGBZYLNVRDU7706-84-58 01:59:00 Test Item Value Reference Range Interpretation Comments Eosinophils # (test code 0.1 See_Comment [A utomated message] The = Eosinophils #) system whic h generated this result tra nsmitted reference range : <=0.5. The reference r delaney was not used to int erpret this result as normal/abnormal . [facility] HospitalLtlmoqrSRXCOLDFSJ9768-73-55 01:59:00 Test Item Value Reference Range Interpretation Comments Eosinophils (test code = 1.4 See_Comment [A utomated message] The Eosinophils) system which ge nerated this result tra nsmitted reference range : <=4.0. The reference r delaney was not used to int erpret this result as normal/abnormal . [facility] HospitalFcjkfqpZTDROGDWXX4661-46-27 01:59:00 Test Item Value Reference Range Interpretation Comments Monocytes (test code = Monocytes) 7.6 2.0-12.0 [facility] HospitalTmagqjvBPOSMGQSSL7666-59-45 01:59:00 Test Item Value Reference Range Interpretation Comments Segs (test code = Segs) 73.6 45.0-75.0 [facility] HospitalMrwwwvwUZIYGGUFAM8821-47-36 01:59:00 Test Item Value Reference Range Interpretation Comments Lymphocytes (test code = Lymphocytes) 16.7 20.0-40.0 [facility] HospitalIwwcmplDKJAZDACSU7267-19-85 01:59:00 Test Item Value Reference Range Interpretation Comments Segs-Bands # (test code = Segs-Bands #) 4.0 1.5-8.1 [facility] [facility]bz[facility]GNC2677-78-58 01:59:00 Test Item Value Reference Range Interpretation Comments Eosinophils # (test code 0.1 See_Comment [A utomated message] The = Eosinophils #) system whic h generated this result tra nsmitted reference range : <=0.5. The reference r delaney was not used to int erpret this result as normal/abnormal . [facility]YcjilygNDIGIVLOCU5053-44-81 01:59:00 Test Item Value Reference Range Interpretation Comments Monocytes # (test code 0.4 See_Comment [Aut omated message] The = Monocytes #) system which generated this result tra nsmitted reference range : <=0.8. The reference r delaney was not used to int erpret this result as normal/abnormal . [facility] HospitalNekbazeLVQWWNWWEH6458-04-40 01:59:00 Test Item Value Reference Range Interpretation Comments Eosinophils (test code = 1.4 See_Comment [A utomated message] The Eosinophils) system which ge nerated this result tra nsmitted reference range : <=4.0. The reference r delaney was not used to int erpret this result as normal/abnormal . [facility] HospitalZwgdiesMGPZENFQMG0283-56-61 01:59:00 Test Item Value Reference Range Interpretation Comments Basophils (test code = 0.7 See_Comment [Aut omated message] The Basophils) system which ge nerated this result tra nsmitted reference range : <=1.0. The reference r delaney was not used to int erpret this result as normal/abnormal . [facility] HospitalTyjjyqvGYAINSZZLG9740-54-45 01:59:00 Test Item Value Reference Range Interpretation Comments Monocytes (test code = Monocytes) 7.6 2.0-12.0 [facility] HospitalKzunerbYSZRGVTYQC2659-76-83 01:59:00 Test Item Value Reference Range Interpretation Comments Lymphocytes # (test code = Lymphocytes 0.9 1.0-5.5 #) [facility] HospitalGbfpxpuUZFYJJWZFG8703-04-06 01:59:00 Test Item Value Reference Range Interpretation Comments Segs (test code = Segs) 73.6 45.0-75.0 [facility] HospitalNdgklwfCKTDVRTGLO1428-43-73 01:59:00 Test Item Value Reference Range Interpretation Comments RDW (test code = RDW) 14.6 11.5-14.5 [facility] HospitalDmpttxwQLFXQZSHRW4647-80-60 01:59:00 Test Item Value Reference Range Interpretation Comments Lymphocytes (test code = Lymphocytes) 16.7 20.0-40.0 [facility] HospitalQactdidHSHDMASTLJ4571-64-11 01:59:00 Test Item Value Reference Range Interpretation Comments Platelet (test code = Platelet) 206 133-450 [facility] HospitalQgjokoaTEFQIGETNS3155-98-57 01:59:00 Test Item Value Reference Range Interpretation Comments Segs-Bands # (test code = Segs-Bands #) 4.0 1.5-8.1 [facility] HospitalDlktexeWCZDESFTXI9539-51-21 01:59:00 Test Item Value Reference Range Interpretation Comments MPV (test code = MPV) 8.3 7.4-10.4 [facility] HospitalFyixpfuJGJUFEOQVI1023-60-53 01:59:00 Test Item Value Reference Range Interpretation Comments Monocytes # (test code 0.4 See_Comment [Aut omated message] The = Monocytes #) system which generated this result tra nsmitted reference range : <=0.8. The reference r delaney was not used to int erpret this result as normal/abnormal . [facility] HospitalYvvyitiYRZESCWTUJ4428-71-69 01:59:00 Test Item Value Reference Range Interpretation Comments MCV (test code = MCV) 87.2 80.0-94.0 [facility] HospitalXgftaegUWZHBDFITL8819-39-63 01:59:00 Test Item Value Reference Range Interpretation Comments Basophils (test code = 0.7 See_Comment [Aut omated message] The Basophils) system which ge nerated this result tra nsmitted reference range : <=1.0. The reference r delaney was not used to int erpret this result as normal/abnormal . [facility] HospitalIvmygscGXNACQLKJX1819-53-40 01:59:00 Test Item Value Reference Range Interpretation Comments MCHC (test code = MCHC) 33.4 32.0-36.0 [facility] HospitalYscusdnTMSALUXNVJ2958-01-71 01:59:00 Test Item Value Reference Range Interpretation Comments MCH (test code = MCH) 29.1 pg 27.0-31.0 [facility] HospitalRmguofeFPIIPUHFSU7077-54-62 01:59:00 Test Item Value Reference Range Interpretation Comments Lymphocytes # (test code = Lymphocytes 0.9 1.0-5.5 #) [facility] HospitalKefcvbqYAIKPDONHM4576-74-61 01:59:00 Test Item Value Reference Range Interpretation Comments Hct (test code = Hct) 29.6 42.0-54.0 [facility] HospitalIvsqglwWTHDJWUNMW0953-42-05 01:59:00 Test Item Value Reference Range Interpretation Comments RDW (test code = RDW) 14.6 11.5-14.5 [facility] HospitalUngjnydONVKEIKJYM3725-43-16 01:59:00 Test Item Value Reference Range Interpretation Comments Hgb (test code = Hgb) 9.9 14.0-18.0 [facility] HospitalTwlprhcNQJHOMULTS1045-02-10 01:59:00 Test Item Value Reference Range Interpretation Comments Platelet (test code = Platelet) 206 133-450 [facility] HospitalZmakagtVHNNOOFYTK5314-31-15 01:59:00 Test Item Value Reference Range Interpretation Comments WBC (test code = WBC) 5.4 3.7-10.4 [facility] HospitalZrxceamPCZWZDTNGP1076-87-51 01:59:00 Test Item Value Reference Range Interpretation Comments MPV (test code = MPV) 8.3 7.4-10.4 [facility] HospitalQysugjjCHYOQSIETG4781-65-10 01:59:00 Test Item Value Reference Range Interpretation Comments RBC (test code = RBC) 3.39 4.70-6.10 [facility] HospitalLnqwrvpNWWCQRXHRV2454-17-73 01:59:00 Test Item Value Reference Range Interpretation Comments MCV (test code = MCV) 87.2 80.0-94.0 [facility] HospitalFeeqdugTQNKTCWZXH6191-13-27 01:59:00 Test Item Value Reference Range Interpretation Comments MCHC (test code = MCHC) 33.4 32.0-36.0 [facility] HospitalRrrnfekRCYPVVRUSV7868-23-20 01:59:00 Test Item Value Reference Range Interpretation Comments MCH (test code = MCH) 29.1 pg 27.0-31.0 [facility] HospitalIunashrRWPZHZLSRD2902-67-73 01:59:00 Test Item Value Reference Range Interpretation Comments Hct (test code = Hct) 29.6 42.0-54.0 [facility] HospitalFhnnhijVWJPBUVMDL0978-89-26 01:59:00 Test Item Value Reference Range Interpretation Comments Hgb (test code = Hgb) 9.9 14.0-18.0 [facility] HospitalSgncobdPHTGCHZUMW0060-72-27 01:59:00 Test Item Value Reference Range Interpretation Comments WBC (test code = WBC) 5.4 3.7-10.4 [facility] HospitalWphhpgnACDBZHQJDY3330-54-95 01:59:00 Test Item Value Reference Range Interpretation Comments RBC (test code = RBC) 3.39 4.70-6.10 [facility] HospitalSovzbhnPCNVEMPQPQ1032-41-26 01:59:00 Test Item Value Reference Range Interpretation Comments Eosinophils # (test code 0.1 See_Comment [A utomated message] The = Eosinophils #) system whic h generated this result tra nsmitted reference range : <=0.5. The reference r delaney was not used to int erpret this result as normal/abnormal . [facility] HospitalCuulnpwWWFCQDPBRI1150-74-33 01:59:00 Test Item Value Reference Range Interpretation Comments Eosinophils (test code = 1.4 See_Comment [A utomated message] The Eosinophils) system which ge nerated this result tra nsmitted reference range : <=4.0. The reference r delaney was not used to int erpret this result as normal/abnormal . [facility] HospitalYkjqejbNQVZPDHWZI9690-86-54 01:59:00 Test Item Value Reference Range Interpretation Comments Monocytes (test code = Monocytes) 7.6 2.0-12.0 [facility] HospitalVwoytbmVAIPDNSALS2917-96-81 01:59:00 Test Item Value Reference Range Interpretation Comments Segs (test code = Segs) 73.6 45.0-75.0 [facility] HospitalYuchejzHUZTVNHILV5350-92-05 01:59:00 Test Item Value Reference Range Interpretation Comments Lymphocytes (test code = Lymphocytes) 16.7 20.0-40.0 [facility] HospitalGgdsgibHLWJXVFBCW9319-46-10 01:59:00 Test Item Value Reference Range Interpretation Comments Segs-Bands # (test code = Segs-Bands #) 4.0 1.5-8.1 [facility] HospitalDdvbecjRSPSNKEHFU0175-56-60 01:59:00 Test Item Value Reference Range Interpretation Comments Monocytes # (test code 0.4 See_Comment [Aut omated message] The = Monocytes #) system which generated this result tra nsmitted reference range : <=0.8. The reference r delaney was not used to int erpret this result as normal/abnormal . [facility] HospitalMfosqkzAYHLTLPPKJ6026-33-81 01:59:00 Test Item Value Reference Range Interpretation Comments Basophils (test code = 0.7 See_Comment [Aut omated message] The Basophils) system which ge nerated this result tra nsmitted reference range : <=1.0. The reference r delaney was not used to int erpret this result as normal/abnormal . [facility] HospitalGkgxvlzRHWPBRVIQT1356-26-23 01:59:00 Test Item Value Reference Range Interpretation Comments Lymphocytes # (test code = Lymphocytes 0.9 1.0-5.5 #) [facility] HospitalYfpaasfJLZYMMDFCH2925-23-41 01:59:00 Test Item Value Reference Range Interpretation Comments RDW (test code = RDW) 14.6 11.5-14.5 [facility] HospitalOgtbubtPAFVGXGDBT7909-25-69 01:59:00 Test Item Value Reference Range Interpretation Comments Platelet (test code = Platelet) 206 133-450 [facility] HospitalGchfjfcWISLWHTFDY9814-79-27 01:59:00 Test Item Value Reference Range Interpretation Comments MPV (test code = MPV) 8.3 7.4-10.4 [facility] HospitalFhztwbsEKUHNRNBNH1118-38-77 01:59:00 Test Item Value Reference Range Interpretation Comments MCV (test code = MCV) 87.2 80.0-94.0 [facility] HospitalAqrokzdXVQKJUBIHM5544-16-26 01:59:00 Test Item Value Reference Range Interpretation Comments MCHC (test code = MCHC) 33.4 32.0-36.0 [facility] HospitalOaeeainFUZCFWXRCY7840-57-18 01:59:00 Test Item Value Reference Range Interpretation Comments Eosinophils # (test code 0.1 See_Comment [A utomated message] The = Eosinophils #) system whic h generated this result tra nsmitted reference range : <=0.5. The reference r delaney was not used to int erpret this result as normal/abnormal . [facility] HospitalCrclhurAHRIYMHQMS0913-17-09 01:59:00 Test Item Value Reference Range Interpretation Comments MCH (test code = MCH) 29.1 pg 27.0-31.0 [facility] HospitalOyvzfhpMOHRSBTSCG0906-66-05 01:59:00 Test Item Value Reference Range Interpretation Comments Eosinophils (test code = 1.4 See_Comment [A utomated message] The Eosinophils) system which ge nerated this result tra nsmitted reference range : <=4.0. The reference r delaney was not used to int erpret this result as normal/abnormal . [facility] HospitalSpqmrnsVCHEPALBVV7315-35-69 01:59:00 Test Item Value Reference Range Interpretation Comments Hct (test code = Hct) 29.6 42.0-54.0 [facility] HospitalGzzjoxyOZRSVXMWSC5438-90-23 01:59:00 Test Item Value Reference Range Interpretation Comments Monocytes (test code = Monocytes) 7.6 2.0-12.0 [facility] HospitalTudylkdPEQAHLUGZO1386-44-14 01:59:00 Test Item Value Reference Range Interpretation Comments Hgb (test code = Hgb) 9.9 14.0-18.0 [facility] HospitalVermidmDRRJRYTRDH2226-69-07 01:59:00 Test Item Value Reference Range Interpretation Comments Segs (test code = Segs) 73.6 45.0-75.0 [facility] HospitalEtjsokmGYUFBXEUGC3161-03-11 01:59:00 Test Item Value Reference Range Interpretation Comments WBC (test code = WBC) 5.4 3.7-10.4 [facility] HospitalQiprtosHUUIGJKEYL7934-50-52 01:59:00 Test Item Value Reference Range Interpretation Comments Lymphocytes (test code = Lymphocytes) 16.7 20.0-40.0 [facility] HospitalGsbfecvNEFFSENTLV5457-70-70 01:59:00 Test Item Value Reference Range Interpretation Comments RBC (test code = RBC) 3.39 4.70-6.10 [facility] HospitalHesfrerMRZRGEKNDN0721-87-78 01:59:00 Test Item Value Reference Range Interpretation Comments Segs-Bands # (test code = Segs-Bands #) 4.0 1.5-8.1 [facility] HospitalCarklgiUODDQQWJMI1037-19-42 01:59:00 Test Item Value Reference Range Interpretation Comments Monocytes # (test code 0.4 See_Comment [Aut omated message] The = Monocytes #) system which generated this result tra nsmitted reference range : <=0.8. The reference r delaney was not used to int erpret this result as normal/abnormal . [facility] HospitalUimrjleLIICDSSPFO9095-79-21 01:59:00 Test Item Value Reference Range Interpretation Comments Basophils (test code = 0.7 See_Comment [Aut omated message] The Basophils) system which ge nerated this result tra nsmitted reference range : <=1.0. The reference r delaney was not used to int erpret this result as normal/abnormal . [facility] HospitalPpgafcgODPZGYBESO7042-09-95 01:59:00 Test Item Value Reference Range Interpretation Comments Lymphocytes # (test code = Lymphocytes 0.9 1.0-5.5 #) [facility] HospitalUkigxmlNAXKHACZTS9391-37-55 01:59:00 Test Item Value Reference Range Interpretation Comments RDW (test code = RDW) 14.6 11.5-14.5 [facility] HospitalZhzmvydHGQXGJDFBJ6003-55-01 01:59:00 Test Item Value Reference Range Interpretation Comments Platelet (test code = Platelet) 206 133-450 [facility] HospitalAikgqpjESJIXRIYWK6715-74-37 01:59:00 Test Item Value Reference Range Interpretation Comments MPV (test code = MPV) 8.3 7.4-10.4 [facility] HospitalUjnlactDUVZWMAJOX8702-49-60 01:59:00 Test Item Value Reference Range Interpretation Comments MCV (test code = MCV) 87.2 80.0-94.0 [facility] HospitalPezlcerMTAFDKBNXV1487-53-24 01:59:00 Test Item Value Reference Range Interpretation Comments MCHC (test code = MCHC) 33.4 32.0-36.0 [facility] HospitalKueppopMFWULLTMZG1521-82-43 01:59:00 Test Item Value Reference Range Interpretation Comments MCH (test code = MCH) 29.1 pg 27.0-31.0 [facility] HospitalYkbhyipROUUOAJXWF4895-98-80 01:59:00 Test Item Value Reference Range Interpretation Comments Hct (test code = Hct) 29.6 42.0-54.0 [facility] HospitalRlwvusrNBIZIJNRPG4070-98-03 01:59:00 Test Item Value Reference Range Interpretation Comments Hgb (test code = Hgb) 9.9 14.0-18.0 [facility] HospitalLntjuoaXALDKLEHHZ7976-73-07 01:59:00 Test Item Value Reference Range Interpretation Comments WBC (test code = WBC) 5.4 3.7-10.4 [facility] HospitalUdhejhaIVENJNGLZO0925-00-64 01:59:00 Test Item Value Reference Range Interpretation Comments RBC (test code = RBC) 3.39 4.70-6.10 [facility]2016-03-18 06:53:00 Test Item Value Reference Range Interpretation Comments Phosphorus (test code = Phosphorus) 3.3 2.5-4.5 [facility]2016-03-18 06:53:00 Test Item Value Reference Range Interpretation Comments Magnesium Lvl (test code = Magnesium 1.8 1.8-2.4 Lvl) [facility]QWBA4635[facility] 06:53:00 Test Item Value Reference Range Interpretation Comments AGAP (test code = AGAP) 12.7 10.0-20.0 [facility]ZcusvzpNMAKDCAWDGDZ1991-68-74 06:53:00 Test Item Value Reference Range Interpretation Comments Calcium Lvl (test code = Calcium Lvl) 8.2 8.5-10.5 [facility]HawfbpzRYOVLDAKKJXA6597-74-45 06:53:00 Test Item Value Reference Range Interpretation Comments Sodium Lvl (test code = Sodium Lvl) 140 135-145 [facility]YftgsweDDILXYIJBYHC9804-40-26 06:53:00 Test Item Value Reference Range Interpretation Comments CO2 (test code = CO2) 27 24-32 [facility]HevtxwaDLKBBVYOUUKV9400-39-77 06:53:00 Test Item Value Reference Range Interpretation Comments Potassium Lvl (test code = Potassium 4.7 3.5-5.1 Lvl) [facility]2016-03-18 06:53:00 Test Item Value Reference Range Interpretation Comments Phosphorus (test code = Phosphorus) 3.3 2.5-4.5 [facility]RpkkxdqFLNXVRIMGFAB2920-61-90 06:53:00 Test Item Value Reference Range Interpretation Comments Chloride Lvl (test code = Chloride Lvl) 105 95-109 [facility]85 06:53:00 Test Item Value Reference Range Interpretation Comments Magnesium Lvl (test code = Magnesium 1.8 1.8-2.4 Lvl) [facility]HdcpdufTIZFAZWIAAPH7510-94-18 06:53:00 Test Item Value Reference Range Interpretation Comments eGFR (test code = eGFR) 83 [facility]YkvzacmDOLBGKSJLUNP0033-86-25 06:53:00 Test Item Value Reference Range Interpretation Comments AGAP (test code = AGAP) 12.7 10.0-20.0 [facility]QtiiefxXCVRRAWCJMYK8818-01-41 06:53:00 Test Item Value Reference Range Interpretation Comments Creatinine Lvl (test code = Creatinine 0.94 0.50-1.40 Lvl) [facility]WhbjdjbJIPBMBZGDBPJ9961-21-69 06:53:00 Test Item Value Reference Range Interpretation Comments Calcium Lvl (test code = Calcium Lvl) 8.2 8.5-10.5 [facility]NpnmhpsHXSMTWMPUGON8554-61-92 06:53:00 Test Item Value Reference Range Interpretation Comments BUN (test code = BUN) 12 7-22 [facility]GwsujffIJACGCSNUAWK4709-62-21 06:53:00 Test Item Value Reference Range Interpretation Comments Sodium Lvl (test code = Sodium Lvl) 140 135-145 [facility]AbuvbjlVDRJQXXYDKIL8009-99-03 06:53:00 Test Item Value Reference Range Interpretation Comments Glucose Lvl (test code = Glucose Lvl) 178 70-99 [facility]CkgxshdVFXVTMDBXQQV8926-91-50 06:53:00 Test Item Value Reference Range Interpretation Comments CO2 (test code = CO2) 27 24-32 [facility] CenterEadiactGGPINZPSJO9289-76-15 06:53:00 Test Item Value Reference Range Interpretation Comments Basophils # (test code 0.1 See_Comment [Aut omated message] The = Basophils #) system which generated this result tra nsmitted reference range : <=0.2. The reference r delaney was not used to int erpret this result as normal/abnormal . [facility]KwwcpquRPBPUMEUHPQP6198-18-50 06:53:00 Test Item Value Reference Range Interpretation Comments Potassium Lvl (test code = Potassium 4.7 3.5-5.1 Lvl) [facility] HospitalAvqyatqTFEKPKUNHH5109-69-77 06:53:00 Test Item Value Reference Range Interpretation Comments Monocytes # (test code 0.2 See_Comment [Aut omated message] The = Monocytes #) system which generated this result tra nsmitted reference range : <=0.8. The reference r delaney was not used to int erpret this result as normal/abnormal . [facility]ErxgavfSPSXJGWJTNOR2495-15-49 06:53:00 Test Item Value Reference Range Interpretation Comments Chloride Lvl (test code = Chloride Lvl) 105 95-109 [facility] HospitalHuohrswXFRJEIWYRG7522-99-18 06:53:00 Test Item Value Reference Range Interpretation Comments Lymphocytes (test code = Lymphocytes) 19.0 20.0-40.0 [facility]YmfflnxBZPMUASFWFNQ7311-88-52 06:53:00 Test Item Value Reference Range Interpretation Comments eGFR (test code = eGFR) 83 [facility] HospitalGepxvwfIZCANVPOOH1043-56-94 06:53:00 Test Item Value Reference Range Interpretation Comments Monocytes (test code = Monocytes) 5.6 2.0-12.0 [facility] RegionGwilcizFIICILTTJZRT4800-46-22 06:53:00 Test Item Value Reference Range Interpretation Comments Creatinine Lvl (test code = Creatinine 0.94 0.50-1.40 Lvl) [facility] HospitalSfapitdWDHSHWBZRZ5760-94-92 06:53:00 Test Item Value Reference Range Interpretation Comments Segs (test code = Segs) 72.1 45.0-75.0 [facility]XzlsfsxXOHVPLPUPBPV6893-66-14 06:53:00 Test Item Value Reference Range Interpretation Comments BUN (test code = BUN) 12 7-22 [facility] HospitalXhmgbzcUCMQCMEOZS9207-84-26 06:53:00 Test Item Value Reference Range Interpretation Comments Eosinophils # (test code 0.1 See_Comment [A utomated message] The = Eosinophils #) system whic h generated this result tra nsmitted reference range : <=0.5. The reference r delaney was not used to int erpret this result as normal/abnormal . [facility]MrtvnlxZJKBHWRTNFEB6376-60-03 06:53:00 Test Item Value Reference Range Interpretation Comments Glucose Lvl (test code = Glucose Lvl) 178 70-99 [facility] HospitalRcnojqwHLFBSKKOCE6611-47-18 06:53:00 Test Item Value Reference Range Interpretation Comments Basophils (test code = 1.7 See_Comment [Aut omated message] The Basophils) system which ge nerated this result tra nsmitted reference range : <=1.0. The reference r delaney was not used to int erpret this result as normal/abnormal . [facility] HospitalQimgqnkYJDDYTQYHJ3056-84-62 06:53:00 Test Item Value Reference Range Interpretation Comments Basophils # (test code 0.1 See_Comment [Aut omated message] The = Basophils #) system which generated this result tra nsmitted reference range : <=0.2. The reference r delaney was not used to int erpret this result as normal/abnormal . [facility] HospitalTvhiguiPTNNXXIMKJ9055-46-26 06:53:00 Test Item Value Reference Range Interpretation Comments Eosinophils (test code = 1.6 See_Comment [A utomated message] The Eosinophils) system which ge nerated this result tra nsmitted reference range : <=4.0. The reference r delaney was not used to int erpret this result as normal/abnormal . [facility] HospitalKcgevnvXBZPJBDDJR3235-34-67 06:53:00 Test Item Value Reference Range Interpretation Comments Monocytes # (test code 0.2 See_Comment [Aut omated message] The = Monocytes #) system which generated this result tra nsmitted reference range : <=0.8. The reference r delaney was not used to int erpret this result as normal/abnormal . [facility] HospitalAyalfmzMFUBIGKVBM3731-87-81 06:53:00 Test Item Value Reference Range Interpretation Comments Lymphocytes # (test code = Lymphocytes 0.8 1.0-5.5 #) [facility] HospitalHcxbhpcZTSPCDXATU0511-11-85 06:53:00 Test Item Value Reference Range Interpretation Comments Lymphocytes (test code = Lymphocytes) 19.0 20.0-40.0 [place] 831546-03-18 06:53:00 Test Item Value Reference Range Interpretation Comments Segs-Bands # (test code = Segs-Bands #) 3.0 1.5-8.1 [facility] HospitalTmewombEFRWYSIIKB0929-81-42 06:53:00 Test Item Value Reference Range Interpretation Comments Monocytes (test code = Monocytes) 5.6 2.0-12.0 [place] 831546-03-18 06:53:00 Test Item Value Reference Range Interpretation Comments Segs (test code = Segs) 72.1 45.0-75.0 [facility] HospitalGhaolrqWANRTINIMT0961-32-46 06:53:00 Test Item Value Reference Range Interpretation Comments MCV (test code = MCV) 87.7 80.0-94.0 [facility] HospitalWgjotxsONEGFYVVYM8179-40-33 06:53:00 Test Item Value Reference Range Interpretation Comments MCH (test code = MCH) 29.2 pg 27.0-31.0 [facility] HospitalJnqimjwGSBJJTVRVQ3815-66-56 06:53:00 Test Item Value Reference Range Interpretation Comments Eosinophils # (test code 0.1 See_Comment [A utomated message] The = Eosinophils #) system whic h generated this result tra nsmitted reference range : <=0.5. The reference r delaney was not used to int erpret this result as normal/abnormal . [facility] HospitalMlbbsrxZDCSKWJQJZ7952-32-90 06:53:00 Test Item Value Reference Range Interpretation Comments RDW (test code = RDW) 15.1 11.5-14.5 [facility] HospitalJjeyyvaZIZOTITDRM1085-10-08 06:53:00 Test Item Value Reference Range Interpretation Comments Basophils (test code = 1.7 See_Comment [Aut omated message] The Basophils) system which ge nerated this result tra nsmitted reference range : <=1.0. The reference r delaney was not used to int erpret this result as normal/abnormal . [facility] HospitalAwjbwwmDVNMJPDUHO8529-15-30 06:53:00 Test Item Value Reference Range Interpretation Comments Platelet (test code = Platelet) 188 133-450 [facility] HospitalFdqztihVLVGNCPRVE5857-49-26 06:53:00 Test Item Value Reference Range Interpretation Comments Eosinophils (test code = 1.6 See_Comment [A utomated message] The Eosinophils) system which ge nerated this result tra nsmitted reference range : <=4.0. The reference r delaney was not used to int erpret this result as normal/abnormal . [facility] HospitalKgrbeknNEGJLEOCKW2120-83-90 06:53:00 Test Item Value Reference Range Interpretation Comments Lymphocytes # (test code = Lymphocytes 0.8 1.0-5.5 #) [facility] HospitalCiqbczjHDEOSPAMRU9980-57-96 06:53:00 Test Item Value Reference Range Interpretation Comments MCHC (test code = MCHC) 33.3 32.0-36.0 [facility] HospitalIhkhmupJVHGVVVZEV7120-99-67 06:53:00 Test Item Value Reference Range Interpretation Comments Segs-Bands # (test code = Segs-Bands #) 3.0 1.5-8.1 [facility] HospitalBzjspibEVIDMZHASN1430-61-69 06:53:00 Test Item Value Reference Range Interpretation Comments WBC (test code = WBC) 4.2 3.7-10.4 [facility] HospitalYsstuqxGOIMCJFQIG8949-98-91 06:53:00 Test Item Value Reference Range Interpretation Comments MCV (test code = MCV) 87.7 80.0-94.0 [facility]MrcpcayYKORRIQTTQ5115-30-96 06:53:00 Test Item Value Reference Range Interpretation Comments RBC (test code = RBC) 3.35 4.70-6.10 [facility] HospitalKahmxhtTXNVLTRHUQ4568-82-09 06:53:00 Test Item Value Reference Range Interpretation Comments MCH (test code = MCH) 29.2 pg 27.0-31.0 [facility] HospitalBvgtfzhMFCREHJALP3951-90-74 06:53:00 Test Item Value Reference Range Interpretation Comments Hgb (test code = Hgb) 9.8 14.0-18.0 [facility] HospitalMudlqmzASRGAXFZKV9949-41-40 06:53:00 Test Item Value Reference Range Interpretation Comments Hct (test code = Hct) 29.4 42.0-54.0 [facility] HospitalVpmpvzbOQXXKZCPOA5127-66-76 06:53:00 Test Item Value Reference Range Interpretation Comments RDW (test code = RDW) 15.1 11.5-14.5 [facility] HospitalBmbhusvPIBRWOYLFN5791-49-30 06:53:00 Test Item Value Reference Range Interpretation Comments MPV (test code = MPV) 8.3 7.4-10.4 [facility] HospitalRdutytjBVBRPVBQRM2342-20-23 06:53:00 Test Item Value Reference Range Interpretation Comments Platelet (test code = Platelet) 188 133-450 [facility] HospitalSkwnungJLKZJNKWSH7416-70-26 06:53:00 Test Item Value Reference Range Interpretation Comments MCHC (test code = MCHC) 33.3 32.0-36.0 [facility] HospitalGtzeffiASVBFAMRAT8154-03-50 06:53:00 Test Item Value Reference Range Interpretation Comments WBC (test code = WBC) 4.2 3.7-10.4 [facility] HospitalXfoqcruBTRUKSUGUW1856-46-13 06:53:00 Test Item Value Reference Range Interpretation Comments RBC (test code = RBC) 3.35 4.70-6.10 [facility] HospitalIjxzspgWMDHCQQLHH1765-75-00 06:53:00 Test Item Value Reference Range Interpretation Comments Hgb (test code = Hgb) 9.8 14.0-18.0 [facility] HospitalVqhfkxfTCTYJZYQUO0132-64-72 06:53:00 Test Item Value Reference Range Interpretation Comments Hct (test code = Hct) 29.4 42.0-54.0 [facility] HospitalXcjgwlrKBJKNDGKDP6923-45-73 06:53:00 Test Item Value Reference Range Interpretation Comments MPV (test code = MPV) 8.3 7.4-10.4 [facility]2016-03-18 06:53:00 Test Item Value Reference Range Interpretation Comments Phosphorus (test code = Phosphorus) 3.3 2.5-4.5 [facility]2016-03-18 06:53:00 Test Item Value Reference Range Interpretation Comments Magnesium Lvl (test code = Magnesium 1.8 1.8-2.4 Lvl) [facility]VveonynELSVKDEKNASW5691-84-77 06:53:00 Test Item Value Reference Range Interpretation Comments AGAP (test code = AGAP) 12.7 10.0-20.0 [facility] RegionFyemvrhCMKMYOQPPVJO6130-81-98 06:53:00 Test Item Value Reference Range Interpretation Comments Calcium Lvl (test code = Calcium Lvl) 8.2 8.5-10.5 [facility] RegionDzejanxVAFAJDOREFVR4720-28-43 06:53:00 Test Item Value Reference Range Interpretation Comments Sodium Lvl (test code = Sodium Lvl) 140 135-145 [facility] RegionXvnekblBTVZABNSONKT6323-18-37 06:53:00 Test Item Value Reference Range Interpretation Comments CO2 (test code = CO2) 27 24-32 [facility]KkbbjmxGYTWXSKVBDOL5064-65-94 06:53:00 Test Item Value Reference Range Interpretation Comments Potassium Lvl (test code = Potassium 4.7 3.5-5.1 Lvl) [facility] RegionXaaxljdLQQUWRSVBSKI3461-18-61 06:53:00 Test Item Value Reference Range Interpretation Comments Chloride Lvl (test code = Chloride Lvl) 105 95-109 [facility] RegionUhgxkhaNYBWTLQZOQGA2913-18-19 06:53:00 Test Item Value Reference Range Interpretation Comments eGFR (test code = eGFR) 83 [facility] RegionYcimfirUOSZXOHAMHCN1894-89-53 06:53:00 Test Item Value Reference Range Interpretation Comments Creatinine Lvl (test code = Creatinine 0.94 0.50-1.40 Lvl) [facility] RegionRtevxjtJCRPPEBAGCKR0548-79-78 06:53:00 Test Item Value Reference Range Interpretation Comments BUN (test code = BUN) 12 7-22 [facility] RegionGdsqiqgOVDBHHYGHROW6343-56-29 06:53:00 Test Item Value Reference Range Interpretation Comments Glucose Lvl (test code = Glucose Lvl) 178 70-99 [facility] HospitalMuecpnxLKBOYDQNAC8996-73-26 06:53:00 Test Item Value Reference Range Interpretation Comments Basophils # (test code 0.1 See_Comment [Aut omated message] The = Basophils #) system which generated this result tra nsmitted reference range : <=0.2. The reference r delaney was not used to int erpret this result as normal/abnormal . [facility] HospitalKioijzmFKANOUHFFB9093-99-71 06:53:00 Test Item Value Reference Range Interpretation Comments Monocytes # (test code 0.2 See_Comment [Aut omated message] The = Monocytes #) system which generated this result tra nsmitted reference range : <=0.8. The reference r delaney was not used to int erpret this result as normal/abnormal . [facility] HospitalKqeavbiMSBMDCIOEU0361-39-53 06:53:00 Test Item Value Reference Range Interpretation Comments Lymphocytes (test code = Lymphocytes) 19.0 20.0-40.0 [facility]2016-03-18 06:53:00 Test Item Value Reference Range Interpretation Comments Phosphorus (test code = Phosphorus) 3.3 2.5-4.5 [facility] HospitalBvslhwvYQBSHZTWOE7133-46-52 06:53:00 Test Item Value Reference Range Interpretation Comments Monocytes (test code = Monocytes) 5.6 2.0-12.0 [facility]2016-03-18 06:53:00 Test Item Value Reference Range Interpretation Comments Magnesium Lvl (test code = Magnesium 1.8 1.8-2.4 Lvl) [facility] HospitalUjerdhoHOVOUJFOUB2234-28-27 06:53:00 Test Item Value Reference Range Interpretation Comments Segs (test code = Segs) 72.1 45.0-75.0 [facility] RegionJcpgvswZKUDHNXTHZKP6711-85-46 06:53:00 Test Item Value Reference Range Interpretation Comments AGAP (test code = AGAP) 12.7 10.0-20.0 [facility] HospitalDxuwrxxYBDHDUECRE7169-41-82 06:53:00 Test Item Value Reference Range Interpretation Comments Eosinophils # (test code 0.1 See_Comment [A utomated message] The = Eosinophils #) system whic h generated this result tra nsmitted reference range : <=0.5. The reference r delaney was not used to int erpret this result as normal/abnormal . [facility]KqymtqiUXVAIRUJQLUO8349-94-75 06:53:00 Test Item Value Reference Range Interpretation Comments Calcium Lvl (test code = Calcium Lvl) 8.2 8.5-10.5 [facility] HospitalLaeqqxsSCEJXUUVAG0044-42-69 06:53:00 Test Item Value Reference Range Interpretation Comments Basophils (test code = 1.7 See_Comment [Aut omated message] The Basophils) system which ge nerated this result tra nsmitted reference range : <=1.0. The reference r delaney was not used to int erpret this result as normal/abnormal . [facility] RegionBylfhzxZPJVFXVQPXMR6234-70-58 06:53:00 Test Item Value Reference Range Interpretation Comments Sodium Lvl (test code = Sodium Lvl) 140 135-145 [facility] HospitalDxghcysVBKWJEQQJA2993-38-49 06:53:00 Test Item Value Reference Range Interpretation Comments Eosinophils (test code = 1.6 See_Comment [A utomated message] The Eosinophils) system which ge nerated this result tra nsmitted reference range : <=4.0. The reference r delaney was not used to int erpret this result as normal/abnormal . [facility] RegionCmkqrtyHJKKWJFCGWJX6789-39-45 06:53:00 Test Item Value Reference Range Interpretation Comments CO2 (test code = CO2) 27 24-32 [facility] HospitalTozgnlkQFFQPNACSO4716-36-43 06:53:00 Test Item Value Reference Range Interpretation Comments Lymphocytes # (test code = Lymphocytes 0.8 1.0-5.5 #) [facility] RegionYuuvvrpUIRGMDJQTFZD5148-76-83 06:53:00 Test Item Value Reference Range Interpretation Comments Potassium Lvl (test code = Potassium 4.7 3.5-5.1 Lvl) [facility] HospitalKsexvfuUQCNUNYPMU9669-09-93 06:53:00 Test Item Value Reference Range Interpretation Comments Segs-Bands # (test code = Segs-Bands #) 3.0 1.5-8.1 [facility] RegionYqykghxWMATTFFFNECI8129-70-78 06:53:00 Test Item Value Reference Range Interpretation Comments Chloride Lvl (test code = Chloride Lvl) 105 95-109 [facility] HospitalPzvirumVKKYEPAPJW1129-06-03 06:53:00 Test Item Value Reference Range Interpretation Comments MCV (test code = MCV) 87.7 80.0-94.0 [facility] RegionHenjxxpCIZPFOEOWZRG2618-43-50 06:53:00 Test Item Value Reference Range Interpretation Comments eGFR (test code = eGFR) 83 [facility] HospitalFvjjuidZONTFEKLQG4576-35-23 06:53:00 Test Item Value Reference Range Interpretation Comments MCH (test code = MCH) 29.2 pg 27.0-31.0 [facility]DmsncnhLXAMFMYLSOEQ1232-23-96 06:53:00 Test Item Value Reference Range Interpretation Comments Creatinine Lvl (test code = Creatinine 0.94 0.50-1.40 Lvl) [facility] HospitalLaqxcibTBRCWTDXAH6245-73-01 06:53:00 Test Item Value Reference Range Interpretation Comments RDW (test code = RDW) 15.1 11.5-14.5 [facility] RegionUtnwpyxDDSXTZPIIEAF7694-37-26 06:53:00 Test Item Value Reference Range Interpretation Comments BUN (test code = BUN) 12 7-22 [facility] HospitalCqgdevpJTNXEQJQHR4576-92-29 06:53:00 Test Item Value Reference Range Interpretation Comments Platelet (test code = Platelet) 188 133-450 [facility] RegionYqpxwsxCLBPHJFGBACT2166-46-06 06:53:00 Test Item Value Reference Range Interpretation Comments Glucose Lvl (test code = Glucose Lvl) 178 70-99 [facility] HospitalEcttgtiXDVUVPFELG9408-15-25 06:53:00 Test Item Value Reference Range Interpretation Comments MCHC (test code = MCHC) 33.3 32.0-36.0 [facility] HospitalEktdfhqKDUDWFOPUE9283-74-36 06:53:00 Test Item Value Reference Range Interpretation Comments Basophils # (test code 0.1 See_Comment [Aut omated message] The = Basophils #) system which generated this result tra nsmitted reference range : <=0.2. The reference r delaney was not used to int erpret this result as normal/abnormal . [address]03-18 06:53:00 Test Item Value Reference Range Interpretation Comments WBC (test code = WBC) 4.2 3.7-10.4 [place] [address]-03-18 06:53:00 Test Item Value Reference Range Interpretation Comments RBC (test code = RBC) 3.35 4.70-6.10 [place] [address]-03-18 06:53:00 Test Item Value Reference Range Interpretation Comments Monocytes # (test code 0.2 See_Comment [Aut omated message] The = Monocytes #) system which generated this result tra nsmitted reference range : <=0.8. The reference r delaney was not used to int erpret this result as normal/abnormal . [place] [address]-03-18 06:53:00 Test Item Value Reference Range Interpretation Comments Hgb (test code = Hgb) 9.8 14.0-18.0 [place] [address]-03-18 06:53:00 Test Item Value Reference Range Interpretation Comments Lymphocytes (test code = Lymphocytes) 19.0 20.0-40.0 [place] [address]-03-18 06:53:00 Test Item Value Reference Range Interpretation Comments Hct (test code = Hct) 29.4 42.0-54.0 [place] [address]-03-18 06:53:00 Test Item Value Reference Range Interpretation Comments Monocytes (test code = Monocytes) 5.6 2.0-12.0 [place] [address]-03-18 06:53:00 Test Item Value Reference Range Interpretation Comments MPV (test code = MPV) 8.3 7.4-10.4 [place] [address]-03-18 06:53:00 Test Item Value Reference Range Interpretation Comments Segs (test code = Segs) 72.1 45.0-75.0 [place] [address]-03-18 06:53:00 Test Item Value Reference Range Interpretation Comments Eosinophils # (test code 0.1 See_Comment [A utomated message] The = Eosinophils #) system ic h generated this result tra nsmitted reference range : <=0.5. The reference r delaney was not used to int erpret this result as normal/abnormal . [facility] HospitalQlbvyzzEZKSVGCUDJ5253-65-84 06:53:00 Test Item Value Reference Range Interpretation Comments Basophils (test code = 1.7 See_Comment [Aut omated message] The Basophils) system which ge nerated this result tra nsmitted reference range : <=1.0. The reference r delaney was not used to int erpret this result as normal/abnormal . [facility] HospitalUiomvycOUSFJLAHNJ5386-70-45 06:53:00 Test Item Value Reference Range Interpretation Comments Eosinophils (test code = 1.6 See_Comment [A utomated message] The Eosinophils) system which ge nerated this result tra nsmitted reference range : <=4.0. The reference r delaney was not used to int erpret this result as normal/abnormal . [facility] HospitalUfboquaMQIDUENKHU0154-64-92 06:53:00 Test Item Value Reference Range Interpretation Comments Lymphocytes # (test code = Lymphocytes 0.8 1.0-5.5 #) [facility] HospitalRbavvrvHMTKVSMDCT0218-14-06 06:53:00 Test Item Value Reference Range Interpretation Comments Segs-Bands # (test code = Segs-Bands #) 3.0 1.5-8.1 [facility] HospitalZablgjpZUKQVATXND4442-35-48 06:53:00 Test Item Value Reference Range Interpretation Comments MCV (test code = MCV) 87.7 80.0-94.0 [facility] HospitalEduadsfQXOBKKFIXR8780-32-55 06:53:00 Test Item Value Reference Range Interpretation Comments MCH (test code = MCH) 29.2 pg 27.0-31.0 [facility] HospitalYsyeiruMUZARPAHDD5298-51-28 06:53:00 Test Item Value Reference Range Interpretation Comments RDW (test code = RDW) 15.1 11.5-14.5 [facility] HospitalLduchsmURRCNXENFN2621-36-92 06:53:00 Test Item Value Reference Range Interpretation Comments Platelet (test code = Platelet) 188 133-450 [facility] HospitalVeohsuoJNTZEAEXEJ9396-06-46 06:53:00 Test Item Value Reference Range Interpretation Comments MCHC (test code = MCHC) 33.3 32.0-36.0 [facility] HospitalYiawzujDAITKMTSQH8532-32-14 06:53:00 Test Item Value Reference Range Interpretation Comments WBC (test code = WBC) 4.2 3.7-10.4 [facility] HospitalUunbrzuQYGCSESNTC3772-70-61 06:53:00 Test Item Value Reference Range Interpretation Comments RBC (test code = RBC) 3.35 4.70-6.10 [facility] HospitalEdjxvwnSURLNIPMQG6938-93-07 06:53:00 Test Item Value Reference Range Interpretation Comments Hgb (test code = Hgb) 9.8 14.0-18.0 [facility] HospitalViewewsIVZEFHTEKX6520-90-66 06:53:00 Test Item Value Reference Range Interpretation Comments Hct (test code = Hct) 29.4 42.0-54.0 [place] 831546-03-18 06:53:00 Test Item Value Reference Range Interpretation Comments MPV (test code = MPV) 8.3 7.4-10.4 [facility]2016-03-17 22:21:00 Test Item Value Reference Range Interpretation Comments eGFR (test code = eGFR) 68 [facility]2016-03-17 22:21:00 Test Item Value Reference Range Interpretation Comments BUN (test code = BUN) 12 - [facility]2016-03-17 22:21:00 Test Item Value Reference Range Interpretation Comments Sodium Lvl (test code = Sodium Lvl) 140 135-145 [facility]2016-03-17 22:21:00 Test Item Value Reference Range Interpretation Comments Creatinine Lvl (test code = Creatinine 1.11 0.50-1.40 Lvl) [facility]2016-03-17 22:21:00 Test Item Value Reference Range Interpretation Comments Calcium Lvl (test code = Calcium Lvl) 8.2 8.5-10.5 [facility]2016-03-17 22:21:00 Test Item Value Reference Range Interpretation Comments CO2 (test code = CO2) 26 24-32 [facility]2016-03-17 22:21:00 Test Item Value Reference Range Interpretation Comments eGFR (test code = eGFR) 68 [facility]2016-03-17 22:21:00 Test Item Value Reference Range Interpretation Comments Chloride Lvl (test code = Chloride Lvl) 104 95-109 [facility]2016-03-17 22:21:00 Test Item Value Reference Range Interpretation Comments BUN (test code = BUN) 12 7- [facility]2016-03-17 22:21:00 Test Item Value Reference Range Interpretation Comments Potassium Lvl (test code = Potassium 4.6 3.5-5.1 Lvl) [facility]2016-03-17 22:21:00 Test Item Value Reference Range Interpretation Comments Sodium Lvl (test code = Sodium Lvl) 140 135-145 [facility]2016-03-17 22:21:00 Test Item Value Reference Range Interpretation Comments Glucose Lvl (test code = Glucose Lvl) 224 70-99 [facility]2016-03-17 22:21:00 Test Item Value Reference Range Interpretation Comments Creatinine Lvl (test code = Creatinine 1.11 0.50-1.40 Lvl) [facility]2016-03-17 22:21:00 Test Item Value Reference Range Interpretation Comments AGAP (test code = AGAP) 14.6 10.0-20.0 [facility]2016-03-17 22:21:00 Test Item Value Reference Range Interpretation Comments Calcium Lvl (test code = Calcium Lvl) 8.2 8.5-10.5 [facility] HospitalRwmuleoIJAGNTGGXE8318-57-78 22:21:00 Test Item Value Reference Range Interpretation Comments Eosinophils # (test code 0.3 See_Comment [A utomated message] The = Eosinophils #) system whic h generated this result tra nsmitted reference range : <=0.5. The reference r delaney was not used to int erpret this result as normal/abnormal . [facility]2016-03-17 22:21:00 Test Item Value Reference Range Interpretation Comments CO2 (test code = CO2) 26 24-32 [facility] HospitalMujcpbcAQKBUNSTYG9537-01-89 22:21:00 Test Item Value Reference Range Interpretation Comments Segs-Bands # (test code = Segs-Bands #) 2.9 1.5-8.1 [facility]2016-03-17 22:21:00 Test Item Value Reference Range Interpretation Comments Chloride Lvl (test code = Chloride Lvl) 104 95-109 [facility] HospitalNdrqtnzIBRXSLNKUL5296-06-97 22:21:00 Test Item Value Reference Range Interpretation Comments Lymphocytes # (test code = Lymphocytes 1.4 1.0-5.5 #) [place] 9[address]116-03-17 22:21:00 Test Item Value Reference Range Interpretation Comments Potassium Lvl (test code = Potassium 4.6 3.5-5.1 Lvl) [facility] HospitalZmovavqBVEGPIDGOU5378-78-79 22:21:00 Test Item Value Reference Range Interpretation Comments Eosinophils (test code = 5.5 See_Comment [A utomated message] The Eosinophils) system which ge nerated this result tra nsmitted reference range : <=4.0. The reference r delaney was not used to int erpret this result as normal/abnormal . [facility]2016-03-17 22:21:00 Test Item Value Reference Range Interpretation Comments Glucose Lvl (test code = Glucose Lvl) 224 70-99 [facility] HospitalMsmpwklJWLISBGUDG7392-97-74 22:21:00 Test Item Value Reference Range Interpretation Comments Lymphocytes (test code = Lymphocytes) 27.4 20.0-40.0 [facility]2016-03-17 22:21:00 Test Item Value Reference Range Interpretation Comments AGAP (test code = AGAP) 14.6 10.0-20.0 [facility] HospitalOrapkybQJKWLEGNCG9837-51-00 22:21:00 Test Item Value Reference Range Interpretation Comments Monocytes (test code = Monocytes) 8.3 2.0-12.0 [facility] HospitalRwlzryzQJXPZNTSIV2754-22-78 22:21:00 Test Item Value Reference Range Interpretation Comments Eosinophils # (test code 0.3 See_Comment [A utomated message] The = Eosinophils #) system wh h generated this result tra nsmitted reference range : <=0.5. The reference r delaney was not used to int erpret this result as normal/abnormal . [facility] HospitalOakmlrxNQEHKFOZTF8771-64-38 22:21:00 Test Item Value Reference Range Interpretation Comments Segs (test code = Segs) 57.9 45.0-75.0 [facility] HospitalUqrydwnHFYGDKZWDO7955-90-76 22:21:00 Test Item Value Reference Range Interpretation Comments Segs-Bands # (test code = Segs-Bands #) 2.9 1.5-8.1 [facility] HospitalWnujlodIGOKUSNTFB7648-60-96 22:21:00 Test Item Value Reference Range Interpretation Comments Basophils (test code = 0.9 See_Comment [Aut omated message] The Basophils) system which ge nerated this result tra nsmitted reference range : <=1.0. The reference r delaney was not used to int erpret this result as normal/abnormal . [facility] HospitalVgdlfdnIJLEQJPZJM7813-88-55 22:21:00 Test Item Value Reference Range Interpretation Comments Lymphocytes # (test code = Lymphocytes 1.4 1.0-5.5 #) [facility] HospitalKmfyeafXYODGFWURV4011-52-96 22:21:00 Test Item Value Reference Range Interpretation Comments Monocytes # (test code 0.4 See_Comment [Aut omated message] The = Monocytes #) system which generated this result tra nsmitted reference range : <=0.8. The reference r delaney was not used to int erpret this result as normal/abnormal . [facility] HospitalMadxnxbYRHUKFEOFE5734-03-76 22:21:00 Test Item Value Reference Range Interpretation Comments Eosinophils (test code = 5.5 See_Comment [A utomated message] The Eosinophils) system which ge nerated this result tra nsmitted reference range : <=4.0. The reference r delaney was not used to int erpret this result as normal/abnormal . [facility] HospitalLctxiitZCSYKBEGNV4856-22-87 22:21:00 Test Item Value Reference Range Interpretation Comments INR (test code = INR) 1.11 0.85-1.17 [facility] HospitalXqetepmTEDZKRDUVL2278-34-34 22:21:00 Test Item Value Reference Range Interpretation Comments Lymphocytes (test code = Lymphocytes) 27.4 20.0-40.0 [facility] HospitalCyytnlmPWEAABJQFR4607-94-50 22:21:00 Test Item Value Reference Range Interpretation Comments PT (test code = PT) 14.6 s 12.0-14.7 [facility] HospitalLdpvkevZHSVMNTMMH0803-34-94 22:21:00 Test Item Value Reference Range Interpretation Comments Monocytes (test code = Monocytes) 8.3 2.0-12.0 [facility] HospitalLswmerfYXMSQAGKWO7921-14-80 22:21:00 Test Item Value Reference Range Interpretation Comments Split Point (test code = Split Point) 2.9 min [facility] HospitalCqbnevkLLLMKYDVKR1352-66-84 22:21:00 Test Item Value Reference Range Interpretation Comments Segs (test code = Segs) 57.9 45.0-75.0 [facility] HospitalLuvlwhfPPXTJFISSF3296-08-79 22:21:00 Test Item Value Reference Range Interpretation Comments ACT (TEG) (test code = ACT (TEG)) 409 s 86-118 [facility] HospitalAeebotwPHVTJVATTT5585-85-35 22:21:00 Test Item Value Reference Range Interpretation Comments Basophils (test code = 0.9 See_Comment [Aut omated message] The Basophils) system which ge nerated this result tra nsmitted reference range : <=1.0. The reference r delaney was not used to int erpret this result as normal/abnormal . [facility] HospitalVtdfgivWMHEHBOLWP3720-05-98 22:21:00 Test Item Value Reference Range Interpretation Comments R-time (test code = R-time) 3.8 min 0.4-0.7 [facility] HospitalGxwrrxxKWKMOPMVZD7112-28-66 22:21:00 Test Item Value Reference Range Interpretation Comments Monocytes # (test code 0.4 See_Comment [Aut omated message] The = Monocytes #) system which generated this result tra nsmitted reference range : <=0.8. The reference r delaney was not used to int erpret this result as normal/abnormal . [facility] HospitalVvyzlvsAEJYAVWNTC7980-47-77 22:21:00 Test Item Value Reference Range Interpretation Comments Rapid TEG Sample Type Citrated Whole Blood (test code = Rapid TEG (10/09/15 5:21 PM) Sample Type) [facility] HospitalKvupueaYHOIIASCNW1115-70-06 22:21:00 Test Item Value Reference Range Interpretation Comments INR (test code = INR) 1.11 0.85-1.17 [facility] HospitalEuarayxURHNZUGNHR8687-00-67 22:21:00 Test Item Value Reference Range Interpretation Comments Estimated % Lysis (test 0.4 See_Comment [Au tomated message] The code = Estimated % system wh ich generated Lysis) this result tra nsmitted reference range : <=7.5. The reference r delaney was not used to int erpret this result as normal/abnormal . [facility] HospitalOlkeqqgIPSMZXCEYD7591-82-38 22:21:00 Test Item Value Reference Range Interpretation Comments PT (test code = PT) 14.6 s 12.0-14.7 [facility] HospitalHaxasajHDQKAFVHYE6230-62-49 22:21:00 Test Item Value Reference Range Interpretation Comments G-value (test code = G-value) 10.6 5.0-11.6 [facility] HospitalVfhajyyFMKCEAFKIY9092-92-97 22:21:00 Test Item Value Reference Range Interpretation Comments Split Point (test code = Split Point) 2.9 min [facility] HospitalDuvfukhKMZQUMVYUK9959-29-90 22:21:00 Test Item Value Reference Range Interpretation Comments K-time (test code = K-time) 2.1 min 0.6-2.3 [facility] HospitalVnuopgvLIOGXWKHGP4242-29-87 22:21:00 Test Item Value Reference Range Interpretation Comments ACT (TEG) (test code = ACT (TEG)) 409 s 86-118 [facility] HospitalCbelijyEBNPATUSFQ7973-42-95 22:21:00 Test Item Value Reference Range Interpretation Comments Max Amp (test code = Max Amp) 68 mm 52-71 [facility] HospitalBpmnxmpJADOYLPNMG0398-52-08 22:21:00 Test Item Value Reference Range Interpretation Comments R-time (test code = R-time) 3.8 min 0.4-0.7 [facility] HospitalQhxpfhzRFQROQYOPU4423-25-16 22:21:00 Test Item Value Reference Range Interpretation Comments Angle (test code = Angle) 63 degrees 64-80 [facility] HospitalIimtmgxZCRBNKEPAJ6627-98-07 22:21:00 Test Item Value Reference Range Interpretation Comments Rapid TEG Sample Type Citrated Whole Blood (test code = Rapid TEG (10/09/15 5:21 PM) Sample Type) [facility] HospitalOtbqcmuYGSBDADTOR9489-39-18 22:21:00 Test Item Value Reference Range Interpretation Comments Estimated % Lysis (test 0.4 See_Comment [Au tomated message] The code = Estimated % system wh ich generated Lysis) this result tra nsmitted reference range : <=7.5. The reference r delaney was not used to int erpret this result as normal/abnormal . [facility] HospitalXfkekvzEXVZWTGHQO4209-56-26 22:21:00 Test Item Value Reference Range Interpretation Comments G-value (test code = G-value) 10.6 5.0-11.6 [facility] HospitalAukswoaJJZLGQUQXD6795-91-07 22:21:00 Test Item Value Reference Range Interpretation Comments K-time (test code = K-time) 2.1 min 0.6-2.3 [facility] HospitalDsyoqjwSSZHGLKBBE8733-67-85 22:21:00 Test Item Value Reference Range Interpretation Comments Max Amp (test code = Max Amp) 68 mm 52-71 [facility] HospitalIcucitvBIANPNXUCM2366-12-82 22:21:00 Test Item Value Reference Range Interpretation Comments Angle (test code = Angle) 63 degrees 64-80 [facility]2016-03-17 22:21:00 Test Item Value Reference Range Interpretation Comments eGFR (test code = eGFR) 68 [facility]2016-03-17 22:21:00 Test Item Value Reference Range Interpretation Comments BUN (test code = BUN) 12 7-22 [place] [id number] 22:21:00 Test Item Value Reference Range Interpretation Comments Sodium Lvl (test code = Sodium Lvl) 140 135-145 [place] [id number] 22:21:00 Test Item Value Reference Range Interpretation Comments Creatinine Lvl (test code = Creatinine 1.11 0.50-1.40 Lvl) [facility]2016-03-17 22:21:00 Test Item Value Reference Range Interpretation Comments Calcium Lvl (test code = Calcium Lvl) 8.2 8.5-10.5 [place] [id number] 22:21:00 Test Item Value Reference Range Interpretation Comments CO2 (test code = CO2) 26 24-32 [place] [id number] 22:21:00 Test Item Value Reference Range Interpretation Comments Chloride Lvl (test code = Chloride Lvl) 104 95-109 [facility]2016-03-17 22:21:00 Test Item Value Reference Range Interpretation Comments Potassium Lvl (test code = Potassium 4.6 3.5-5.1 Lvl) [facility]2016-03-17 22:21:00 Test Item Value Reference Range Interpretation Comments Glucose Lvl (test code = Glucose Lvl) 224 70-99 [facility]2016-03-17 22:21:00 Test Item Value Reference Range Interpretation Comments AGAP (test code = AGAP) 14.6 10.0-20.0 [facility] HospitalPmgqvbbRLMHBWMAXK1482-99-84 22:21:00 Test Item Value Reference Range Interpretation Comments Eosinophils # (test code 0.3 See_Comment [A utomated message] The = Eosinophils #) system whic h generated this result tra nsmitted reference range : <=0.5. The reference r delaney was not used to int erpret this result as normal/abnormal . [facility] HospitalKhbtblaJXULJOHXDG7280-19-04 22:21:00 Test Item Value Reference Range Interpretation Comments Segs-Bands # (test code = Segs-Bands #) 2.9 1.5-8.1 [facility] HospitalIhdkjwsBBWEBBLFQD0569-82-09 22:21:00 Test Item Value Reference Range Interpretation Comments Lymphocytes # (test code = Lymphocytes 1.4 1.0-5.5 #) [facility] HospitalDpnlhoiVXLIWNZBEH7672-64-00 22:21:00 Test Item Value Reference Range Interpretation Comments Eosinophils (test code = 5.5 See_Comment [A utomated message] The Eosinophils) system which ge nerated this result tra nsmitted reference range : <=4.0. The reference r delaney was not used to int erpret this result as normal/abnormal . [facility] HospitalRimjdzlYWKNQISKQE3628-71-71 22:21:00 Test Item Value Reference Range Interpretation Comments Lymphocytes (test code = Lymphocytes) 27.4 20.0-40.0 [facility] HospitalXvekwhhWIBRGKMFVH7393-21-16 22:21:00 Test Item Value Reference Range Interpretation Comments Monocytes (test code = Monocytes) 8.3 2.0-12.0 [facility] HospitalTxuhpjhNPUBGZPLMM4890-48-30 22:21:00 Test Item Value Reference Range Interpretation Comments Segs (test code = Segs) 57.9 45.0-75.0 [facility]2016-03-17 22:21:00 Test Item Value Reference Range Interpretation Comments eGFR (test code = eGFR) 68 [facility]2016-03-17 22:21:00 Test Item Value Reference Range Interpretation Comments BUN (test code = BUN) 12 7-22 [facility] HospitalPjrofygHXXRQTCXLS8997-14-40 22:21:00 Test Item Value Reference Range Interpretation Comments Basophils (test code = 0.9 See_Comment [Aut omated message] The Basophils) system which ge nerated this result tra nsmitted reference range : <=1.0. The reference r delaney was not used to int erpret this result as normal/abnormal . [facility]2016-03-17 22:21:00 Test Item Value Reference Range Interpretation Comments Sodium Lvl (test code = Sodium Lvl) 140 135-145 [facility] HospitalYndudrwLGNFZYCUIJ5307-14-33 22:21:00 Test Item Value Reference Range Interpretation Comments Monocytes # (test code 0.4 See_Comment [Aut omated message] The = Monocytes #) system which generated this result tra nsmitted reference range : <=0.8. The reference r delaney was not used to int erpret this result as normal/abnormal . [facility]2016-03-17 22:21:00 Test Item Value Reference Range Interpretation Comments Creatinine Lvl (test code = Creatinine 1.11 0.50-1.40 Lvl) [facility] HospitalPhoyuslLHXPZPQCGU2859-44-85 22:21:00 Test Item Value Reference Range Interpretation Comments INR (test code = INR) 1.11 0.85-1.17 [facility]2016-03-17 22:21:00 Test Item Value Reference Range Interpretation Comments Calcium Lvl (test code = Calcium Lvl) 8.2 8.5-10.5 [facility] HospitalOlqmuroWLYLSTTWOA5738-92-51 22:21:00 Test Item Value Reference Range Interpretation Comments PT (test code = PT) 14.6 s 12.0-14.7 [facility]2016-03-17 22:21:00 Test Item Value Reference Range Interpretation Comments CO2 (test code = CO2) 26 24-32 [facility] HospitalShsxhpcZFEQBMORGX3081-71-69 22:21:00 Test Item Value Reference Range Interpretation Comments Split Point (test code = Split Point) 2.9 min [facility]2016-03-17 22:21:00 Test Item Value Reference Range Interpretation Comments Chloride Lvl (test code = Chloride Lvl) 104 95-109 [facility] HospitalBzbgeaePLKLJTSTPM9988-01-85 22:21:00 Test Item Value Reference Range Interpretation Comments ACT (TEG) (test code = ACT (TEG)) 409 s 86-118 [facility]2016-03-17 22:21:00 Test Item Value Reference Range Interpretation Comments Potassium Lvl (test code = Potassium 4.6 3.5-5.1 Lvl) [facility] HospitalKwtxqjhAAQYUYOPOO8221-04-48 22:21:00 Test Item Value Reference Range Interpretation Comments R-time (test code = R-time) 3.8 min 0.4-0.7 [facility]2016-03-17 22:21:00 Test Item Value Reference Range Interpretation Comments Glucose Lvl (test code = Glucose Lvl) 224 70-99 [facility] HospitalHntcdtlDLBFSIUFTX3266-23-95 22:21:00 Test Item Value Reference Range Interpretation Comments Rapid TEG Sample Type Citrated Whole Blood (test code = Rapid TEG (10/09/15 5:21 PM) Sample Type) [facility]2016-03-17 22:21:00 Test Item Value Reference Range Interpretation Comments AGAP (test code = AGAP) 14.6 10.0-20.0 [facility] HospitalWzmkczyLNJSEVNXUY2561-21-06 22:21:00 Test Item Value Reference Range Interpretation Comments Estimated % Lysis (test 0.4 See_Comment [Au tomated message] The code = Estimated % system wh ich generated Lysis) this result tra nsmitted reference range : <=7.5. The reference r delaney was not used to int erpret this result as normal/abnormal . [facility] HospitalZgdbppqWTYPANGHRV8195-06-17 22:21:00 Test Item Value Reference Range Interpretation Comments Eosinophils # (test code 0.3 See_Comment [A utomated message] The = Eosinophils #) system whic h generated this result tra nsmitted reference range : <=0.5. The reference r delaney was not used to int erpret this result as normal/abnormal . [facility] HospitalJwwrpckBNGFGEMNJY4943-33-65 22:21:00 Test Item Value Reference Range Interpretation Comments G-value (test code = G-value) 10.6 5.0-11.6 [facility] HospitalSqlpxjaMWIJOUBMCE2741-24-14 22:21:00 Test Item Value Reference Range Interpretation Comments Segs-Bands # (test code = Segs-Bands #) 2.9 1.5-8.1 [facility] HospitalCddkqpcAGFETGDFRZ4396-57-72 22:21:00 Test Item Value Reference Range Interpretation Comments K-time (test code = K-time) 2.1 min 0.6-2.3 [facility] HospitalOulephuKRJJPDZBCI7278-17-19 22:21:00 Test Item Value Reference Range Interpretation Comments Lymphocytes # (test code = Lymphocytes 1.4 1.0-5.5 #) [facility] HospitalDelblzuUEUKAHFTEM0030-99-47 22:21:00 Test Item Value Reference Range Interpretation Comments Max Amp (test code = Max Amp) 68 mm 52-71 [facility] HospitalQcyqbhgAGDZMTLZDM4337-09-23 22:21:00 Test Item Value Reference Range Interpretation Comments Angle (test code = Angle) 63 degrees 64-80 [facility] HospitalLlppbxlLVPMVGDCVQ5416-39-82 22:21:00 Test Item Value Reference Range Interpretation Comments Eosinophils (test code = 5.5 See_Comment [A utomated message] The Eosinophils) system which ge nerated this result tra nsmitted reference range : <=4.0. The reference r delaney was not used to int erpret this result as normal/abnormal . [facility] HospitalKnkwmjxKNVLQDXOBF0920-18-01 22:21:00 Test Item Value Reference Range Interpretation Comments Lymphocytes (test code = Lymphocytes) 27.4 20.0-40.0 [facility] HospitalRtjhnhcMRJPNYPWNA7466-10-05 22:21:00 Test Item Value Reference Range Interpretation Comments Monocytes (test code = Monocytes) 8.3 2.0-12.0 [facility] HospitalUjrrbevKWPHUCVAZD2240-12-16 22:21:00 Test Item Value Reference Range Interpretation Comments Segs (test code = Segs) 57.9 45.0-75.0 [facility] HospitalIvtavvxJNIDTVUIVU8332-59-96 22:21:00 Test Item Value Reference Range Interpretation Comments Basophils (test code = 0.9 See_Comment [Aut omated message] The Basophils) system which ge nerated this result tra nsmitted reference range : <=1.0. The reference r delaney was not used to int erpret this result as normal/abnormal . [facility] HospitalHtwlidvVEWFAXZKTY9724-84-26 22:21:00 Test Item Value Reference Range Interpretation Comments Monocytes # (test code 0.4 See_Comment [Aut omated message] The = Monocytes #) system which generated this result tra nsmitted reference range : <=0.8. The reference r delaney was not used to int erpret this result as normal/abnormal . [facility] HospitalEmldfxkZFFYJVAKMR5553-41-83 22:21:00 Test Item Value Reference Range Interpretation Comments INR (test code = INR) 1.11 0.85-1.17 [facility] HospitalQmwzpjqMTGPAMJFXT8375-95-67 22:21:00 Test Item Value Reference Range Interpretation Comments PT (test code = PT) 14.6 s 12.0-14.7 [facility] HospitalJinlqnzTYVVSICABL4129-89-16 22:21:00 Test Item Value Reference Range Interpretation Comments Split Point (test code = Split Point) 2.9 min [facility] HospitalPvhwqhdANTCSBGONE2273-22-96 22:21:00 Test Item Value Reference Range Interpretation Comments ACT (TEG) (test code = ACT (TEG)) 409 s 86-118 [facility] HospitalZityejaHCTDBJLUTM8945-45-82 22:21:00 Test Item Value Reference Range Interpretation Comments R-time (test code = R-time) 3.8 min 0.4-0.7 [facility] HospitalQobbdfyTUHHEMDFGV6024-75-44 22:21:00 Test Item Value Reference Range Interpretation Comments Rapid TEG Sample Type Citrated Whole Blood (test code = Rapid TEG (10/09/15 5:21 PM) Sample Type) [facility] HospitalMlplmogVHIDYCAOIF8409-82-82 22:21:00 Test Item Value Reference Range Interpretation Comments Estimated % Lysis (test 0.4 See_Comment [Au tomated message] The code = Estimated % system wh ich generated Lysis) this result tra nsmitted reference range : <=7.5. The reference r delaney was not used to int erpret this result as normal/abnormal . [facility] HospitalIylwdsnTQUVOBYJGZ6413-62-08 22:21:00 Test Item Value Reference Range Interpretation Comments G-value (test code = G-value) 10.6 5.0-11.6 [facility] HospitalQvllpphDIVCNHIHUS8925-21-33 22:21:00 Test Item Value Reference Range Interpretation Comments K-time (test code = K-time) 2.1 min 0.6-2.3 [facility] HospitalErwfzkqFWBIVTSVIC8372-66-60 22:21:00 Test Item Value Reference Range Interpretation Comments Max Amp (test code = Max Amp) 68 mm 52-71 [facility] HospitalWflejneOOOTHGOOEP4920-02-32 22:21:00 Test Item Value Reference Range Interpretation Comments Angle (test code = Angle) 63 degrees 64-80 [facility]TmfaqlgOLVAXVHXWS6186-84-17 14:26:00 Test Item Value Reference Range Interpretation Comments Hardy-Hep C Ab (test Negative *NA*(10/09/15 code = Hardy-Hep C 9:26 AM) Ab) [facility] HospitalZxxfepaAKXPXMOQPQ2883-62-81 14:26:00 Test Item Value Reference Range Interpretation Comments Hardy-Hep C Ab (test Negative *NA*(10/09/15 code = Hardy-Hep C 9:26 AM) Ab) [facility] HospitalNrekcpvDXNTFIRIXB3208-34-39 14:26:00 Test Item Value Reference Range Interpretation Comments Hardy-Hep C Ab (test Negative *NA*(10/09/15 code = Hardy-Hep C 9:26 AM) Ab) [facility]ubEUDSTUZLWA7131-95-99 14:26:00 Test Item Value Reference Range Interpretation Comments Hardy-Hep C Ab (test Negative *NA*(10/09/15 code = Hardy-Hep C 9:26 AM) Ab) [facility] MRZXJ2553-25-75 07:13:00 Test Item Value Reference Range Interpretation Comments Lactic Acid Lvl (test code = Lactic 1.4 0.5-2.2 Acid Lvl) [facility]2016-03-17 07:13:00 Test Item Value Reference Range Interpretation Comments Lactic Acid Lvl (test code = Lactic 1.4 0.5-2.2 Acid Lvl) [facility]2016-03-17 07:13:00 Test Item Value Reference Range Interpretation Comments Lactic Acid Lvl (test code = Lactic 1.4 0.5-2.2 Acid Lvl) [facility]2016-03-17 07:13:00 Test Item Value Reference Range Interpretation Comments Lactic Acid Lvl (test code = Lactic 1.4 0.5-2.2 Acid Lvl) [facility] HospitalXanywooMDRMWMYZGH7419-74-86 07:08:00 Test Item Value Reference Range Interpretation Comments Estimated % Lysis (test 0.0 See_Comment [Au tomated message] The code = Estimated % system wh ich generated Lysis) this result tra nsmitted reference range : <=7.5. The reference r delaney was not used to int erpret this result as normal/abnormal . [facility] HospitalIjcfzyoYIZQZLTCSK1374-19-62 07:08:00 Test Item Value Reference Range Interpretation Comments G-value (test code = G-value) 9.0 5.0-11.6 [facility] HospitalIoyenydCIWQLIRIEQ7320-16-78 07:08:00 Test Item Value Reference Range Interpretation Comments K-time (test code = K-time) 1.6 min 0.6-2.3 [facility] HospitalKqxfeoyPBNOPHGHTB5588-80-05 07:08:00 Test Item Value Reference Range Interpretation Comments R-time (test code = R-time) 1.2 min 0.4-0.7 [place] 831546-03-17 07:08:00 Test Item Value Reference Range Interpretation Comments Split Point (test code = Split Point) 0.8 min [facility] HospitalFmjytirSGWDOIQSZE5130-00-70 07:08:00 Test Item Value Reference Range Interpretation Comments Max Amp (test code = Max Amp) 64 mm 52-71 [facility] HospitalKeexwulNBXHDMVSFB9155-16-30 07:08:00 Test Item Value Reference Range Interpretation Comments Estimated % Lysis (test 0.0 See_Comment [Au tomated message] The code = Estimated % system wh ich generated Lysis) this result tra nsmitted reference range : <=7.5. The reference r delaney was not used to int erpret this result as normal/abnormal . [facility] HospitalNhajnjsDOFNCPVCZP7726-15-61 07:08:00 Test Item Value Reference Range Interpretation Comments Angle (test code = Angle) 68 degrees 64-80 [facility] HospitalRzkatoiSKFRABXTKS1187-44-35 07:08:00 Test Item Value Reference Range Interpretation Comments G-value (test code = G-value) 9.0 5.0-11.6 [facility] HospitalNmfvmmvKJFSPHZQDJ2264-84-30 07:08:00 Test Item Value Reference Range Interpretation Comments ACT (TEG) (test code = ACT (TEG)) 167 s 86-118 [facility] HospitalGdxllvkWAJABJCUHE7804-87-93 07:08:00 Test Item Value Reference Range Interpretation Comments K-time (test code = K-time) 1.6 min 0.6-2.3 [facility] HospitalNrbsndeFSASRZBBXN5069-34-47 07:08:00 Test Item Value Reference Range Interpretation Comments Rapid TEG Sample Type Citrated Whole Blood (test code = Rapid TEG (10/09/15 2:08 AM) Sample Type) [facility] HospitalWeiaplaIKIAILDUSF6131-51-98 07:08:00 Test Item Value Reference Range Interpretation Comments R-time (test code = R-time) 1.2 min 0.4-0.7 [place] 831546-03-17 07:08:00 Test Item Value Reference Range Interpretation Comments Split Point (test code = Split Point) 0.8 min [facility] HospitalCpmnwizZXRGCWZZVG2182-51-76 07:08:00 Test Item Value Reference Range Interpretation Comments Max Amp (test code = Max Amp) 64 mm 52-71 [place] 831546-03-17 07:08:00 Test Item Value Reference Range Interpretation Comments Angle (test code = Angle) 68 degrees 64-80 [facility] HospitalZmkjpcdLXGEMCLIRV7747-08-41 07:08:00 Test Item Value Reference Range Interpretation Comments ACT (TEG) (test code = ACT (TEG)) 167 s 86-118 [place] 831546-03-17 07:08:00 Test Item Value Reference Range Interpretation Comments Rapid TEG Sample Type Citrated Whole Blood (test code = Rapid TEG (10/09/15 2:08 AM) Sample Type) [facility] HospitalTdnnyevVNCBHKYRNC1416-08-78 07:08:00 Test Item Value Reference Range Interpretation Comments Estimated % Lysis (test 0.0 See_Comment [Au tomated message] The code = Estimated % system wh ich generated Lysis) this result tra nsmitted reference range : <=7.5. The reference r delaney was not used to int erpret this result as normal/abnormal . [facility] HospitalAlzrusqOKEWHRWHMC0370-26-51 07:08:00 Test Item Value Reference Range Interpretation Comments G-value (test code = G-value) 9.0 5.0-11.6 [place] [address]-03-17 07:08:00 Test Item Value Reference Range Interpretation Comments K-time (test code = K-time) 1.6 min 0.6-2.3 [facility] HospitalYxaxjhcAKRYVPMTMX7510-36-20 07:08:00 Test Item Value Reference Range Interpretation Comments R-time (test code = R-time) 1.2 min 0.4-0.7 [facility] HospitalDjcvivnDZELNZOBJB1876-25-20 07:08:00 Test Item Value Reference Range Interpretation Comments Split Point (test code = Split Point) 0.8 min [place] [address]-03-17 07:08:00 Test Item Value Reference Range Interpretation Comments Max Amp (test code = Max Amp) 64 mm 52-71 [facility] HospitalImadfudTFCZRVEIHE3434-29-15 07:08:00 Test Item Value Reference Range Interpretation Comments Angle (test code = Angle) 68 degrees 64-80 [place] 831546-03-17 07:08:00 Test Item Value Reference Range Interpretation Comments ACT (TEG) (test code = ACT (TEG)) 167 s 86-118 [facility] HospitalVgvscczXGRJPZJOZD4980-79-08 07:08:00 Test Item Value Reference Range Interpretation Comments Rapid TEG Sample Type Citrated Whole Blood (test code = Rapid TEG (10/09/15 2:08 AM) Sample Type) [facility] HospitalIqnjfcxDEUVMMMFSQ8754-39-65 07:08:00 Test Item Value Reference Range Interpretation Comments Estimated % Lysis (test 0.0 See_Comment [Au tomated message] The code = Estimated % system wh ich generated Lysis) this result tra nsmitted reference range : <=7.5. The reference r delaney was not used to int erpret this result as normal/abnormal . [facility] HospitalPkdabrfKGERGJLUIE2584-74-65 07:08:00 Test Item Value Reference Range Interpretation Comments G-value (test code = G-value) 9.0 5.0-11.6 [place] 831546-03-17 07:08:00 Test Item Value Reference Range Interpretation Comments K-time (test code = K-time) 1.6 min 0.6-2.3 [place] 831546-03-17 07:08:00 Test Item Value Reference Range Interpretation Comments R-time (test code = R-time) 1.2 min 0.4-0.7 [facility] HospitalYjydonfBONZARVOZL6117-57-53 07:08:00 Test Item Value Reference Range Interpretation Comments Split Point (test code = Split Point) 0.8 min [place] 831546-03-17 07:08:00 Test Item Value Reference Range Interpretation Comments Max Amp (test code = Max Amp) 64 mm 52-71 [facility] HospitalQdtvjvoBHNNPYKTQS9199-66-70 07:08:00 Test Item Value Reference Range Interpretation Comments Angle (test code = Angle) 68 degrees 64-80 [facility] HospitalVfxxhrzAMSDDPSSMY0640-87-81 07:08:00 Test Item Value Reference Range Interpretation Comments ACT (TEG) (test code = ACT (TEG)) 167 s 86-118 [facility] HospitalNxrotolPJEPHRKGTX7759-62-82 07:08:00 Test Item Value Reference Range Interpretation Comments Rapid TEG Sample Type Citrated Whole Blood (test code = Rapid TEG (10/09/15 2:08 AM) Sample Type) [facility]
--- NOTE | 2022-12-03 17:26 | ER ---
Nurse's Notes [facility] Name: Valentín Senior Jr Age: 77 yrs Sex: Male : 1945 Arrival Date: 12/03/2022 Time: 15:14 Bed 2 Private MD: Diagnosis: Paroxysmal atrial fibrillation-With RVR;Heart failure, unspecified;COPD/ Chronic obstructive pulmonary disease with (acute) exacerbation Presentation: 12/03 15:16 Chief complaint: EMS states: SENT FROM [place] FOR SOB AND AFIB/RVR. Coronavirus screen: At bp this time, the client does not indicate any symptoms associated with coronavirus-19. Ebola Screen: No symptoms or risks identified at this time. Initial Sepsis Screen: Does the patient meet any 2 criteria? HR > 90 bpm. No. Patient's initial sepsis screen is negative. Does the patient have a suspected source of infection? No. Patient's initial sepsis screen is negative. Risk Assessment: Do you want to hurt yourself or someone else? Patient reports no desire to harm self or others. Onset of symptoms is unknown. Care prior to arrival: Medication(s) given: 125 MG SOLU-MEDROL IV initiated. 20 GA, in the right antecubital area, Glucose check: 167 Med neb given. 15:16 Method Of Arrival: EMS: [facility] bp 15:16 Acuity: ILANA 2 bp Triage Assessment: 15:20 General: Appears in no apparent distress. Behavior is calm, cooperative, appropriate bp for age. Pain: Complains of pain in pelvis. EENT: No deficits noted. Neuro: No deficits noted. Cardiovascular: Rhythm is atrial fibrillation with rapid ventricular response. Respiratory: Reports shortness of breath Onset: The symptoms/episode began/occurred at an unknown time. the patient has moderate shortness of breath. GI: No signs and/or symptoms were reported involving the gastrointestinal system. : No signs and/or symptoms were reported regarding the genitourinary system. Derm: No deficits noted. Musculoskeletal: No deficits noted. Historical: - Allergies: 15:18 Morphine; bp - Home Meds: 15:18 finasteride 5 mg Oral tab 1 tab once daily [Active]; Eliquis 5 mg Oral tab 1 tab 2 bp times per day [Active]; duloxetine Oral once daily [Active]; Amiodarone Oral once daily [Active]; apixaban 5 mg Oral 1 tab 2 times per day [Active]; docusate calcium 50 mg Oral cap [Active]; Creon 6,000-19,000 -30,000 unit Oral cpDR 1 cap 4 x day [Active]; calcium 250 mg/ vitamin D 125 Tab [Active]; atorvastatin Oral once daily [Active]; artificial tears(hypromellose) 0.4 % Opht drop 1 drop right for Dry Eye [Active]; - PMHx: 15:18 Chronic obstructive lung disease; Congestive heart failure; Hypertensive disorder; bp Atrial fibrillation; - Immunization history:: Adult Immunizations unknown. - Social history:: Smoking status: unknown. Screenin:45 [facility] ED Fall Risk Assessment (Adult) History of falling in the last 3 months, bp including since admission No falls in past 3 months (0 pts). Abuse screen: Denies threats or abuse. Denies injuries from another. Nutritional screening: No deficits noted. Tuberculosis screening: No symptoms or risk factors identified. Assessment: 15:20 General: SEE TRIAGE NOTE. bp 16:30 Reassessment: Patient appears in no apparent distress at this time. Patient is alert, bp oriented x 3, equal unlabored respirations, skin warm/dry/pink. Cardiovascular: Rhythm is atrial fibrillation. Respiratory: Airway is patent Respiratory effort is unlabored, Breath sounds with rhonchi bilaterally. 19:14 General: Appears in no apparent distress. Behavior is calm, cooperative. Pain: Denies kd3 pain. Neuro: Level of Consciousness is awake, alert, obeys commands, Oriented to person, place, time, situation. Cardiovascular: Patient's skin is warm and dry. Rhythm is atrial fibrillation. Respiratory: Airway is patent Trachea midline Respiratory effort is even, unlabored. Vital Signs: 15:16 BP 145 / 70; Pulse 80; Resp 18; Temp 98.2; Pulse Ox 97% on 10 lpm Nebulizer Mask; bp 16:30 BP 126 / 75; Pulse 100; Resp 18; Pulse Ox 94% on R/A; bp 19:14 BP 135 / 79; Pulse 95; Resp 20; Pulse Ox 96% on R/A; kd3 20:21 BP 137 / 66; Pulse 101; Resp 17; Pulse Ox 98% on R/A; kd3 ED Course: 15:16 Patient arrived in ED. bp 15:17 Leno Bethea MD is Attending Physician. kdr 15:18 Triage completed. bp 15:18 Arm band placed on. bp 15:20 Niko Arana, RN is Primary Nurse. bp 15:20 Maintain EMS IV. Dressing intact. Good blood return noted. Site clean \T\ dry. Gauge \T\ bp site: 20 GA R AC. 15:45 Patient has correct armband on for positive identification. Bed in low position. Call bp light in reach. Side rails up X2. 16:13 XRAY Chest (1 view) In Process Unspecified. EDMS 17:24 Jonathan Hunter MD is Hospitalizing Provider. kdr 19:25 Primary Nurse role handed off by Niko Arana, DEVON kd3 19:25 Michelle Colorado, DEVON is Primary Nurse. kd3 20:05 No provider procedures requiring assistance completed. Patient admitted, IV remains in kd3 place. Administered Medications: 15:45 Drug: Metoprolol IVP 5 mg Route: IVP; Site: right antecubital; bp 17:35 Follow up: Response: No adverse reaction bp Medication: 19:15 VIS not applicable for this client. kd3 Outcome: 17:25 Decision to Hospitalize by Provider. kdr 20:04 Admitted to Med/surg room 415. kd3 20:04 Condition: stable 20:04 Discharge instructions given to patient, Instructed on the need for admit, Demonstrated understanding of instructions. 20:22 Patient left the ED. kd3 Signatures: Dispatcher [employer] EDKS Leno Bethea MD MD kdr Niko Arana, RN RN bp Michelle Colorado RN RN kd3
--- NOTE | 2022-12-03 17:26 | EDPHYS ---
Physician Documentation [facility] Name: Valentín Senior Jr Age: 77 yrs Sex: Male : 1945 Arrival Date: 12/03/2022 Time: 15:14 Bed 2 Private MD: ED Physician Leno Bethea HPI: 12/03 17:27 This 77 yrs old Male presents to ER via EMS with complaints of Shortness Of Breath. kdr 17:27 Patient had presented to the [place] for evaluation. He had recently had some shortness of kdr breath and he felt that his heart rate was not under control. He was noted to be in a atrial fibrillation rhythm with rapid ventricular response. Heart rate was 140 per EMS. Shortly after their arrival they felt the patient spontaneously converted back to normal sinus rhythm. EMS provided the patient with albuterol and Solu-Medrol for his COPD and shortness of breath. Patient arrived in stable condition but had reverted back to his atrial fibrillation with RVR. Patient was clearly dyspneic and needed support initially but improved over time while in the ED.. Historical: - Allergies: 15:18 Morphine; bp - Home Meds: 15:18 finasteride 5 mg Oral tab 1 tab once daily [Active]; Eliquis 5 mg Oral tab 1 tab 2 bp times per day [Active]; duloxetine Oral once daily [Active]; Amiodarone Oral once daily [Active]; apixaban 5 mg Oral 1 tab 2 times per day [Active]; docusate calcium 50 mg Oral cap [Active]; Creon 6,000-19,000 -30,000 unit Oral cpDR 1 cap 4 x day [Active]; calcium 250 mg/ vitamin D 125 Tab [Active]; atorvastatin Oral once daily [Active]; artificial tears(hypromellose) 0.4 % Opht drop 1 drop right for Dry Eye [Active]; - PMHx: 15:18 Chronic obstructive lung disease; Congestive heart failure; Hypertensive disorder; bp Atrial fibrillation; - Immunization history:: Adult Immunizations unknown. - Social history:: Smoking status: unknown. ROS: 17:34 Constitutional: Negative for fever, chills, and weight loss, Eyes: Negative for injury, kdr pain, redness, and discharge, Neck: Negative for injury, pain, and swelling, Cardiovascular: Negative for chest pain, palpitations, and edema, Abdomen/GI: Negative for abdominal pain, nausea, vomiting, diarrhea, and constipation, Back: Negative for injury and pain, : Negative for injury, bleeding, discharge, and swelling, MS/Extremity: Negative for injury and deformity, Skin: Negative for injury, rash, and discoloration, Neuro: Negative for headache, weakness, numbness, tingling, and seizure activity. Psych: Negative for depression, anxiety, suicide ideation, homicidal ideation, and hallucinations, Allergy/Immunology: Negative for hives, rash, and allergies, Endocrine: Negative for neck swelling, polydipsia, polyuria, polyphagia, and marked weight changes, Hematologic/Lymphatic: Negative for swollen nodes, abnormal bleeding, and unusual bruising. 17:34 Respiratory: Positive for dyspnea on exertion, shortness of breath, at rest. wheezing, inspiratory. 17:34 Abdomen/GI: Positive for nausea, Negative for constipation, abdominal cramps, abdominal distension, black/tarry stool, rectal pain. Exam: 17:34 Constitutional: This is a well developed, well nourished patient who is awake, alert, kdr and in no acute distress. Head/Face: Normocephalic, atraumatic. Eyes: Pupils equal round and reactive to light, extra-ocular motions intact. Lids and lashes normal. Conjunctiva and sclera are non-icteric and not injected. Cornea within normal limits. Periorbital areas with no swelling, redness, or edema. Neck: Trachea midline, no thyromegaly or masses palpated, and no cervical lymphadenopathy. Supple, full range of motion without nuchal rigidity, or vertebral point tenderness. No Meningismus. Chest/axilla: Normal chest wall appearance and motion. Nontender with no deformity. No lesions are appreciated. Abdomen/GI: Soft, non-tender, with normal bowel sounds. No distension or tympany. No guarding or rebound. No evidence of tenderness throughout. Back: No spinal tenderness. No costovertebral tenderness. Full range of motion. 17:34 Cardiovascular: Rate: tachycardic, Rhythm: irregularly irregular, Pulses: no pulse deficits are appreciated, Heart sounds: normal, Edema: is not appreciated, JVD: is not appreciated. 17:34 ECG was reviewed by the Attending Physician. Vital Signs: 15:16 BP 145 / 70; Pulse 80; Resp 18; Temp 98.2; Pulse Ox 97% on 10 lpm Nebulizer Mask; bp 16:30 BP 126 / 75; Pulse 100; Resp 18; Pulse Ox 94% on R/A; bp 19:14 BP 135 / 79; Pulse 95; Resp 20; Pulse Ox 96% on R/A; kd3 20:21 BP 137 / 66; Pulse 101; Resp 17; Pulse Ox 98% on R/A; kd3 MDM: 16:44 Patient medically screened. snw 17:38 Data reviewed: vital signs, lab test result(s), radiologic studies. [facility] 12/03 15:18 Order name: Basic Metabolic Panel; Complete Time: 16:29 kdr 12/03 15:18 Order name: CBC with Diff; Complete Time: 16:29 kdr 12/03 15:18 Order name: LFT's; Complete Time: 16:29 kdr 12/03 15:18 Order name: NT PRO-BNP; Complete Time: 16:29 kdr 12/03 15:18 Order name: Troponin HS; Complete Time: 16:29 kdr 12/03 15:38 Order name: Protime (+inr); Complete Time: 16:29 bp 12/03 15:38 Order name: Ptt, Activated; Complete Time: 16:29 bp 12/03 17:30 Order name: CBC with Automated Diff EDNE 12/03 17:30 Order name: CBC with Automated Diff EDMS 12/03 17:30 Order name: Comprehensive Metabolic Panel EDNE 12/03 17:30 Order name: Comprehensive Metabolic Panel [facility] 12/03 17:34 Order name: Thyroid Stimulating Hormone EDNE 12/03 17:38 Order name: Hemoglobin A1c EDNE 12/03 19:00 Order name: T4 Free EDNE 12/03 15:18 Order name: XRAY Chest (1 view); Complete Time: 16:29 kdr 12/03 17:34 Order name: Echo with Doppler EDNE 12/03 15:18 Order name: EKG; Complete Time: 15:19 kdr 12/03 17:30 Order name: Regular EDNE 12/03 15:18 Order name: Cardiac monitoring; Complete Time: 15:37 kdr 12/03 15:18 Order name: EKG - Nurse/Tech; Complete Time: 15:37 kdr 12/03 15:18 Order name: IV Saline Lock; Complete Time: 15:37 kdr 12/03 15:18 Order name: Labs collected and sent; Complete Time: 15:37 kdr 12/03 15:18 Order name: O2 Per Protocol; Complete Time: 15:37 kdr 12/03 15:18 Order name: O2 Sat Monitoring; Complete Time: 15:37 kdr EC:34 Rate is 133 beats/min. Rhythm is irregularly irregular, A fib with No ectopy. QRS Nenana kdr is Normal. IA interval is normal. QRS interval is normal. Clinical impression: Atrial Fibrillation. Administered Medications: 15:45 Drug: Metoprolol IVP 5 mg Route: IVP; Site: right antecubital; bp 17:35 Follow up: Response: No adverse reaction bp Disposition Summary: 12/03/22 17:25 Hospitalization Ordered Hospitalization Status: Inpatient Admission kdr Provider: Jonathan Hunter kdr Location: Telemetry/MedSurg (Inpatient) kdr Condition: Fair kdr Problem: an acute exacerbation kdr Symptoms: have improved kdr Bed/Room Type: Standard kdr Room Assignment: 415(12/03/22 19:46) cg Diagnosis - Paroxysmal atrial fibrillation - With RVR kdr - Heart failure, unspecified kdr - COPD/ Chronic obstructive pulmonary disease with (acute) exacerbation kdr Forms: - Medication Reconciliation Form kdr - SBAR form kdr Signatures: Dispatcher [employer] EDMS Leno Bethea MD MD kdr May [place] FNP-Yue LAWSON-Salina Taylor, RN RN cg Niko Arana, RN RN bp Corrections: (The following items were deleted from the chart) 19:46 17:25 kdr cg
[2022-12-03] MEDS: SPIRONOLACTONE 25 MG TABLET PO SCH ×2 (17:28→21:41)
[2022-12-03] MEDS ORDERED: D50W 25 GM/50 ML SYRINGE IV PRN (17:35)
[2022-12-03] MEDS ORDERED: GLUCAGON 1 MG/VIAL IM PRN (17:35)
--- NOTE | 2022-12-03 17:37 | P.HP ---
Certification for Inpatient Patient admitted to: Inpatient With expected LOS: >2 Midnights Practitioner: I am a practitioner with admitting privileges, knowledge of patient current condition, hospital course, and medical plan of care. Services: Services provided to patient in accordance with Admission requirements found in Title 42 Section 412.3 of the Code of Federal Regulations Patient History Date of Service: 12/03/22 Reason for admission: Shortness of breath lower extremity edema active cough History of Present Illness: Patient is 77 years of age with a history of COPD A-fib he has been chronically short of breath for a number of years apparently went to the [facility] and was told that he had fluid in his lungs he was coughing up some productive phlegm worsening shortness of breath patient uses Symbicort and albuterol at home has O2 as needed and it appeared in the hospital apparently told he had a hernia Home med list as per ER note finasteride 5 mg Oral tab 1 tab once daily [Active]; Eliquis 5 mg Oral tab 1 tab 2 bp times per day [Active]; duloxetine Oral once daily [Active]; Amiodarone Oral once daily [Active]; apixaban 5 mg Oral 1 tab 2 times per day [Active]; docusate calcium 50 mg Oral cap [Active]; Creon 6,000-19,000 -30,000 unit Oral cpDR 1 cap 4 x day [Active]; calcium 250 mg/ vitamin D 125 Tab [Active]; atorvastatin Oral once daily [ Active]; artificial tears(hypromellose) 0.4 % Opht drop 1 drop right for Dry Eye [Active]; Allergies morphine Adverse Reaction (Severe, Verified 08/05/19 13:52) hallucination hydromorphone [From Dilaudid] Adverse Reaction (Verified 08/06/19 08:24) narcan needed, bp dropped, sats dropped, unresponsive Home Medications: Apixaban [Eliquis] 5 mg PO DAILY 08/05/19 Calcium Carbonate/Vitamin D3 [Calcium 250-D Tablet] 250 mg PO DAILY 08/05/19 Docusate Calcium 240 mg PO DAILY 08/05/19 Finasteride [Proscar*] 5 mg PO DAILY 08/05/19 Insulin Detemir [Levemir] 30 units SQ DAILY 08/05/19 Insulin Glargine Human [Lantus*] 12 units SQ ACHS 08/05/19 Latanoprost/Pf [Latanoprost 0.005% Eye Drop] 2 drops EACH EYE DAILY 08/05/19 Lidocaine [Lidocaine Pain Relief] 1 patch TOP DAILY 08/05/19 Loratadine [Claritin*] 10 mg PO DAILY 08/05/19 Metoprolol Succinate [Toprol Xl*] 25 mg PO DAILY 08/05/19 Omeprazole 20 mg PO DAILY 08/05/19 Oxybutynin Chloride [Oxybutynin Chloride ER] 5 mg PO TID 08/05/19 Pregabalin [Lyrica] 150 mg PO TID 08/05/19 Simvastatin 10 mg PO BEDTIME 08/05/19 Tamsulosin HCl [Flomax] 0.4 mg PO DAILY 08/05/19 raNITIdine HCL [Heartburn Relief] 300 mg PO DAILY 08/05/19 Enzymes,Digestive [Enzyme Digest] 1 each PO DAILY PRN 08/13/19 Lidocaine 4% Patch [Lidoderm 5% Patch*] 1 patch TOP DAILY #14 patch 08/20/19 - Past Medical/Surgical History Diabetic: Yes -: Atrial fibrillation -: CAD -: 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 Will need information from family. - Family History Father -: Cancer Mother -: Cancer - Social History Alcohol use: No CD- Drugs: No Caffeine use: No Review of Systems General: Weakness Respiratory: Cough, Shortness of Breath Cardiovascular: Edema Physical Examination - Physical Exam General: Alert, Oriented x3, Mild distress Respiratory: Expiratory wheezes, Rhonchi/gurgles Cardiovascular: Edema (3+ edema), Irregular heart rate/rhythm Gastrointestinal: Normal bowel sounds, Soft and benign, Non-distended, Other (Patient has an epigastric scar apparently related to a pancreatic) Musculoskeletal: No clubbing, Swelling Integumentary: No rashes, No breakdown - Studies Laboratory Data (last 24 hrs) 12/03/22 15:45: PT 11.8, INR 1.07, APTT 34.4 12/03/22 15:45: WBC 5.00, Hgb 10.7 L, Hct 33.5 L, Plt Count 195 12/03/22 15:45: Sodium 139, Potassium 4.3, BUN 12, Creatinine 1.18, Glucose 145 H, Total Bilirubin 0.4, AST 21, ALT 23, Alkaline Phosphatase 104 Assessment and Plan - Problems (Diagnosis) (1) CHF (congestive heart failure) Current Visit: Yes Status: Acute Plan: Patient is 77 years of age with a history of A-fib COPD admitted with lower extremity edema has been getting progressively worse shortness of breath for the past 3 years he is also developing more lower extremity edema history of COPD A- fib no prior history of coronary artery disease apparently also has diabetes not take any diuretics plan to admit echocardiogram his BNP is also elevated chest x-ray does show COPD changes cardiomegaly with a pacemaker mild anemic normal creatinine admit Lasix spironolactone lab work apparently also has COPD although he quit smoking in the 1989 we will add Brovana prednisone p.o. history of A-fib we will also anticoagulate with Eliquis for now until we get more information on his medications labs reviewed according to his list patient is on amiodarone and Eliquis at home Qualifiers: Heart failure chronicity: unspecified - Advance Directives Does patient have a Living Will: No Does patient have a Durable POA for Healthcare: Yes
[2022-12-03 18:39] LABS: Thyroid Stimulating Hormone 4.49 uIU/mL (0.358-3.740)
[2022-12-03] MEDS: APIXABAN 2.5 MG TABLET PO SCH (21:38)
[2022-12-03] MEDS: FUROSEMIDE 20 MG/ 2ML VIAL IV SCH (21:38)
[2022-12-03] MEDS: INSULIN -REGULAR HUMAN 50 UNIT/0.5 ML ML SQ SCH (21:42)
[2022-12-03] MEDS: predniSONE 20 MG TAB PO SCH (21:42)
[2022-12-03] MEDS: ARFORMOTEROL TARTRATE 15 MCG/2 ML VIAL.NEB NEB SCH (22:05)
[2022-12-03] MEDS ORDERED: ALBUTEROL 2.5 MG/3 ML NEB SOL NEB PRN (23:50)
[2022-12-04 04:16] VITALS: BMI 19.9
[2022-12-04 04:36] LABS: Absolute Lymphocytes (CBC) 0.4 K/uL (0.7-4.9); Hematocrit 34.4 % (39.6-49.0); Lymphocytes % 17.8 % (15.3-44.8); MCV 92.2 fL (80-100); RBC Red Blood Cell Count 3.73 M/uL (4.33-5.43)
[2022-12-04 04:46] LABS: Albumin 2.4 g/dL (3.4-5.0); Bilirubin Total 0.3 mg/dL (0.2-1.0); Potassium 5.1 mEq/L (3.5-5.1); Protein, Total 6.4 g/dL (6.4-8.2)
[2022-12-04 05:19] LABS: Blood Morphology Comment NOT SEEN (NOT SEEN); Platelet Estimate ADEQ; White Blood Cell Scan OK (OK)
[2022-12-04] MEDS ORDERED: CODEINE 30MG/APAP 300MG TAB PO PRN ×2 (05:43→09:08)
[2022-12-04] MEDS: INSULIN -REGULAR HUMAN 50 UNIT/0.5 ML ML SQ SCH ×4 (07:52→20:09)
[2022-12-04] MEDS: predniSONE 20 MG TAB PO SCH (07:53)
[2022-12-04] MEDS: APIXABAN 2.5 MG TABLET PO SCH ×2 (07:53→20:09)
[2022-12-04] MEDS: ARFORMOTEROL TARTRATE 15 MCG/2 ML VIAL.NEB NEB SCH ×2 (08:00→20:20)
[2022-12-04] MEDS ORDERED: METOPROLOL XL 25 MG TAB PO SCH (09:00)
[2022-12-04] MEDS: FUROSEMIDE 20 MG/ 2ML VIAL IV SCH ×2 (09:00→09:42)
[2022-12-04] MEDS: TIOTROPIUM 5 SPRAYS/INHALER IH SCH (09:00)
[2022-12-04] MEDS: AMIODARONE HCL 200 MG TAB PO SCH ×2 (09:29→21:29)
[2022-12-04] MEDS: SPIRONOLACTONE 25 MG TABLET PO SCH ×2 (09:29→21:00)
[2022-12-04] MEDS: LIDOCAINE 4% PATCH TOP SCH (09:29)
--- NOTE | 2022-12-04 09:36 | P.PN ---
Subjective Date of Service: 12/04/22 Chief Complaint: Possible congestive heart failure COPD exacerbation Subjective: Improving (Patient is improving still complaining of some cough he complains of lower extremity pain which is chronic edema has declined also has some weight loss) Review of Systems General: Weakness Respiratory: Cough, Shortness of Breath Musculoskeletal: Leg Pain Physical Examination - Vital Signs Temperature: 97.8 F Blood Pressure: 110/72 Pulse: 131 Respirations: 16 Pulse Ox (%): 95 - Physical Exam General: Alert, In no apparent distress, Oriented x3 HEENT: PERRLA Respiratory: Clear to auscultation bilaterally Cardiovascular: Edema Gastrointestinal: Normal bowel sounds, Soft and benign - Studies Laboratory Data (last 24 hrs) 12/03/22 15:45: PT 11.8, INR 1.07, APTT 34.4 12/03/22 15:45: WBC 5.00, Hgb 10.7 L, Hct 33.5 L, Plt Count 195 12/03/22 15:45: Sodium 139, Potassium 4.3, BUN 12, Creatinine 1.18, Glucose 145 H, Total Bilirubin 0.4, AST 21, ALT 23, Alkaline Phosphatase 104 Assessment And Plan - Current Problems (Diagnosis) (1) CHF (congestive heart failure) Current Visit: Yes Status: Acute Plan: Patient is improving still complaining lower extremity pain has some coughing spells vital signs are stable patient is in A-fib resume amiodarone refused metoprolol patient is anticoagulated labs reviewed continue with spironolactone and Lasix low-dose prednisone nebulizers 95% on room air echocardiogram pending thyroid function is satisfactory possible discharge a.m. complains of lower extremity pain he has had 2 strokes Qualifiers: Heart failure chronicity: unspecified (2) Diabetes Current Visit: Yes Status: Acute Plan: Patient has a history of diabetes blood sugar elevated hemoglobin A1c 6.7 resume Lantus moderate sliding scale Qualifiers: Diabetes mellitus type: type 2 Diabetes mellitus complication status: with neurologic complications Diabetes mellitus complication detail: with polyneuropathy
[2022-12-04] MEDS: oxyBUTYnin chloride 5 MG TAB PO SCH ×3 (09:42→20:09)
[2022-12-04] MEDS: ACETAMINOPHEN 325 MG TABLET PO PRN (11:55)
[2022-12-04] MEDS ORDERED: ACETAMINOPHEN 325 MG TABLET ONE (11:59)
[2022-12-04] MEDS ORDERED: D50W 25 GM/50 ML SYRINGE IV PRN (16:36)
[2022-12-04] MEDS ORDERED: GLUCAGON 1 MG/VIAL IM PRN (16:36)
[2022-12-04] MEDS: DOCUSATE NA 100 MG CAP PO SCH ×2 (20:09→20:17)
[2022-12-04] MEDS: predniSONE 10 MG TAB PO SCH (20:09)
[2022-12-04] MEDS ORDERED: NA CHLORIDE 0.9% 250 ML IV ONE (20:24)
[2022-12-04] MEDS ORDERED: HOME MED 1 EA UNK (Simvastatin [Simvastatin] 10 MG Tablet) PO SCH (21:00)
[2022-12-04] MEDS ORDERED: ATORVASTATIN 10 MG TAB PO SCH (21:00)
[2022-12-05 01:25] VITALS: O2SAT 92
[2022-12-05] MEDS: INSULIN -REGULAR HUMAN 50 UNIT/0.5 ML ML SQ SCH (07:38)
[2022-12-05] MEDS: ARFORMOTEROL TARTRATE 15 MCG/2 ML VIAL.NEB NEB SCH (08:14)
[2022-12-05 08:19] VITALS: BP 97/75; TEMP 97.9
[2022-12-05] MEDS: FUROSEMIDE 20 MG/ 2ML VIAL IV SCH (09:00)
[2022-12-05] MEDS: SPIRONOLACTONE 25 MG TABLET PO SCH (09:00)
[2022-12-05] MEDS ORDERED: FINASTERIDE 5 MG TAB PO SCH (09:00)
[2022-12-05] MEDS ORDERED: TAMSULOSIN 0.4 MG SR CAP PO SCH (09:00)
[2022-12-05] MEDS: TIOTROPIUM 5 SPRAYS/INHALER IH SCH (09:11)
[2022-12-05] MEDS: ACETAMINOPHEN 325 MG TABLET PO PRN (09:12)
[2022-12-05] MEDS: APIXABAN 2.5 MG TABLET PO SCH (09:13)
[2022-12-05] MEDS: DOCUSATE NA 100 MG CAP PO SCH (09:13)
[2022-12-05] MEDS: oxyBUTYnin chloride 5 MG TAB PO SCH (09:13)
[2022-12-05] MEDS: AMIODARONE HCL 200 MG TAB PO SCH (09:13)
[2022-12-05] MEDS: predniSONE 10 MG TAB PO SCH (09:13)
[2022-12-05] MEDS: LIDOCAINE 4% PATCH TOP SCH (09:14)
--- NOTE | 2022-12-05 09:25 | P.DS ---
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 Brief History of Present Illness: Patient is 77 years of age with a history of COPD A-fib he has been chronically short of breath for a number of years apparently went to the [facility] and was told that he had fluid in his lungs he was coughing up some productive phlegm worsening shortness of breath patient uses Symbicort and albuterol at home has O2 as needed and it appeared in the hospital apparently told he had a hernia Home med list as per ER note finasteride 5 mg Oral tab 1 tab once daily [Active]; Eliquis 5 mg Oral tab 1 tab 2 bp times per day [Active]; duloxetine Oral once daily [Active]; Amiodarone Oral once daily [Active]; apixaban 5 mg Oral 1 tab 2 times per day [Active]; docusate calcium 50 mg Oral cap [Active]; Creon 6,000-19,000 -30,000 unit Oral cpDR 1 cap 4 x day [Active]; calcium 250 mg/ vitamin D 125 Tab [Active]; atorvastatin Oral once daily [Active]; artificial tears(hypromellose) 0.4 % Opht drop 1 drop right for Dry Eye [Active]; Hospital Course: Patient is 77 years of age admitted to the hospital he was diuresed at time of discharge his lower extremity edema had decreased he still has some cough congestion history of COPD I prescribed him Advair to continue with low-dose spironolactone and does take amiodarone at home otherwise there was no other change in his home medications blood sugar elevated I suspect is from the steroids or his hemoglobin A1c was less than 7 patient does take insulin at home complains of lower extremity discomfort I have advised him to contact his primary care physician for Tylenol 3 in addition I prescribed him some gabapentin pulm air oxygenation satisfactory patient does ambulate with assistance has help at home to contact [facility] for physical therapy twice he is very alert oriented responsive he is memory is very good taking gabapentin in the past the time of discharge he was alert oriented responsive cooperative blood pressure on the lower side suspect is due to the Lasix his chest still shows some wheezing and lower extremity edema declined Vital Signs/Physical Exam: Temp Pulse Resp BP Pulse Ox 97.9 F 68 16 97/75 93 12/05/22 08:00 12/05/22 08:00 12/05/22 08:00 12/05/22 08:00 12/05/22 08:00 Laboratory Data at Discharge: WBC 2.50 thou/uL (4.3-10.9) L 12/04/22 04:04 Hgb 11.3 g/dL (13.6-17.9) L 12/04/22 04:04 Hct 34.4 % (39.6-49.0) L 12/04/22 04:04 Plt Count 196 thou/uL (152-406) 12/04/22 04:04 PT 11.8 SECONDS (9.5-12.5) 12/03/22 15:45 INR 1.07 12/03/22 15:45 APTT 34.4 SECONDS (24.3-36.9) 12/03/22 15:45 Sodium 137 mEq/L (136-145) 12/04/22 04:04 Potassium 5.1 mEq/L (3.5-5.1) D 12/04/22 04:04 BUN 14 mg/dL (7-18) 12/04/22 04:04 Creatinine 1.25 mg/dL (0.70-1.30) 12/04/22 04:04 Glucose 297 mg/dL (74-106) H 12/04/22 04:04 Total Bilirubin 0.3 mg/dL (0.2-1.0) 12/04/22 04:04 AST 18 U/L (15-37) 12/04/22 04:04 ALT 21 U/L (16-61) 12/04/22 04:04 Alkaline Phosphatase 105 U/L (45-117) 12/04/22 04:04 Home Medications: Apixaban [Eliquis] 5 mg PO BID 08/05/19 Calcium Carbonate/Vitamin D3 [Calcium 250-D Tablet] 250 mg PO DAILY 08/05/19 Finasteride [Proscar*] 5 mg PO DAILY 08/05/19 Insulin Glargine Human [Lantus*] 7 units SQ BID 08/05/19 Latanoprost/Pf [Latanoprost 0.005% Eye Drop] 2 drops EACH EYE DAILY 08/05/19 Lidocaine [Lidocaine Pain Relief] 1 patch TOP DAILY 08/05/19 Loratadine [Claritin*] 10 mg PO DAILY 08/05/19 Omeprazole 20 mg PO DAILY 08/05/19 Simvastatin 10 mg PO BEDTIME 08/05/19 Tamsulosin HCl [Flomax] 0.4 mg PO DAILY 08/05/19 raNITIdine HCL [Heartburn Relief] 300 mg PO DAILY 08/05/19 Enzymes,Digestive [Enzyme Digest] 1 each PO DAILY PRN 08/13/19 Docusate [Colace Cap*] 100 mg PO BID 12/03/22 Insulin -Regular Human [Novolin -R] See Protocol SQ ACHS 12/03/22 Lipase/Protease/Amylase [Creon Dr 6,000 Unit Capsule] 4 cap PO ACHS 12/03/22 Multivit with Iron,Minerals [Multivitamins with Iron] 1 tab PO DAILY 12/03/22 Codeine/APAP [Tylenol #3*] 1 tab PO Q6HP PRN 12/04/22 oxyBUTYnin chloride [Oxybutynin Chloride] 5 mg PO TID 12/04/22 Fluticasone/Salmeterol [Advair 250-50 Diskus] 1 each IH BID 30 Days #60 aero 12/05/22 Gabapentin [Neurontin*] 200 mg PO BID 30 Days #60 cap 12/05/22 Spironolactone [Aldactone*] 25 mg PO BID 30 Days #60 tab 12/05/22 New Medications: Fluticasone/Salmeterol [Advair 250-50 Diskus] 1 each IH BID 30 Days #60 aero Spironolactone [Aldactone*] 25 mg PO BID 30 Days #60 tab Gabapentin [Neurontin*] 200 mg PO BID 30 Days #60 cap Diet: Low sodium Followup: NONE,NONE [Primary Care Provider] -
--- NOTE | 2022-12-05 14:46 | EKG ---
Test Date: 2022-12-03 Test Time: 15:26:48 [place]: BP MEASUREMENT RESULTS: Intervals: Rate: 133 [place]: QRSD: 78 QT: 352 QTc: 523 [place]: P: [place]: QRS: 114 T: 61 INTERPRETIVE STATEMENTS: Atrial fibrillation with rapid ventricular response Left posterior fascicular block Anterior infarct, age undetermined Abnormal ECG Compared to ECG 07/24/2021 22:02:46 Left posterior fascicular block now present Sinus rhythm no longer present Right-axis deviation no longer present Myocardial infarct finding still present Electronically Signed On 12-05-22 14:44:15 CDT by Adán Whitehead
[2022-12-05] MEDS ORDERED: INSULIN GLARGINE 100 UNIT/ML SQ SCH (18:00)
== END 2022-12-05 12:03 | disposition home or self-care (01) | DRG 292 ==
LOC: ER 15:14 → ERHOLD 17:26 → 4TH 19:54
PROVIDERS: ADMIT Internal Medicine Sleep Medicine; ATTEND Internal Medicine Sleep Medicine
DX: I11.0 Hypertensive heart disease with heart failure (principal); J44.1 Chronic obstructive pulmonary disease with (acute) exacerbation; I50.9 Heart failure, unspecified; G89.29 Other chronic pain; M54.9 Dorsalgia, unspecified; I48.0 Paroxysmal atrial fibrillation; E11.42 Type 2 diabetes mellitus with diabetic polyneuropathy; D64.9 Anemia, unspecified; I25.10 Atherosclerotic heart disease of native coronary artery without angina pectoris; Z79.4 Long term (current) use of insulin; Z88.5 Allergy status to narcotic agent; Z95.0 Presence of cardiac pacemaker; Z79.51 Long term (current) use of inhaled steroids; Z99.81 Dependence on supplemental oxygen; Z79.01 Long term (current) use of anticoagulants; Z86.73 Personal history of transient ischemic attack (TIA), and cerebral infarction without residual deficits; Z79.899 Other long term (current) drug therapy; Z87.891 Personal history of nicotine dependence
CPT/HCPCS: 36415; 71045; 80048; 80053; 80076; 82947; 83036; 83880; 84439; 84443; 84484; 85025; 85610; 85730; 93005; 94760; 96374; 97116; 97161; 99285; J1815; J1940; J2001; J7050; J7512; J7605; J7613

== ENCOUNTER 2022-12-10 16:09 | Inpatient (IN) | payer OTHER ==
--- OUTSIDE RECORDS SUMMARY | 2022-12-10 16:29 | XMS REPORT | Continuity of Care Document ---
:1945 Author Organization [facility] t Address [address] [place]. 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
Probl em added by Discern Expert. [facility] GIOVANNA GIOVANNA Diagnosis Active 2016-08-16 Memoria BILLING BILLING 08-16 00:40:00 l Active 00:00: Joe 08/16/2016 00 [facility] DYSRHYTHMI DYSRHYTHM Diagnosis Active 2016-08-24 Memoria IAS Active 08-16 21:58:00 l 08/16/2016 00:00: Leoncio spann [address] LEFT LEFT Diagnosis Active 2015-10-09 Mem oria SUBAXILLAR SUBAXILLAR 10-07 03:39:00 l Y ARTERY Y ARTERY 00:00: Leoncio spann AND AND 00 BRACHIAL BRACHIAL ART ART Active 10/08/2015 [facility] ARM FX ARM FX Diagnosis Active 2015-10-21 Me moria W/ARTERIAL W/ARTERIAL 10-07 22:01:00 l BLOOD IN BLOOD IN 00:00: Leoncio spann SUBCLAVIAN SUBCLAVIAN 00 /BR /BR Active 10/08/2015 [facility] Atrial Atrial Problem Active 2016-08-21 Kashif bello fibrillati fibrillati 03:50:59 l on on Joe (disorder) (disorder) Active Problem 08/21/2016 [facility] Diabetes Diabetes Problem Active 2016-08-21 Memoria mellitus mellitus 03:50:59 l (disorder) (disorder) He lizzy Active Problem 08/21/2016 On insulin [facility] 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 [facility] Allergies, Adverse Reactions, Alerts Allergy Allergy Status Severity Reaction(s) Onset Inactive Treating Comm ents Source Name Type Date Date Clinician MORPHINE DRUG Active Hallucinates Un rosalie INGREDI 12 ity of 00:00: [place] 00 [facility] Morphine Propensi Active Hallucinatio Univers ty to ns 12 ity of adverse 00:00: [place] reaction 00 [facility] [place] morphine morphine Active Refugio Diaz Social History Social Habit Start Date Stop Date Quantity Comments Source History of Current smoker [facility] tobacco use [facility] Exposure to 2022-10-05 2022-10-15 Not sure [facility] SARS-CoV-2 00:00:00 16:45:00 [facility] (event) [place] Alcohol intake 2022-10-15 2022-10-15 Ex-drinker [facility] 00:00:00 00:00:00 (finding) [facility] Tobacco use and 2019-01-03 2019-01-03 Smokeless tobacco Un iversity of exposure 00:00:00 00:00:00 non-user [facility] Social History 2016-08-17 2016-08-17 [facility] Tricia tatiana 01:47:41 01:47:41 Sex Ass[birth year] At [birth year] Univers[facility] 00:00:00 00:00:00 [facility] Smoking Status Start Date Stop Date Source Ex-smoker 2019-01-03 00:00:00 2019-01-03 00:00:00 Universi ty of [facility] Medications Ordered Filled Start Stop Current Ordering Indication Dosage Frequency Signature Comments Components Source Medication Medication Date Date Medication? Clinician (SIG) Name Name albuterol-i Yes [id number] 1{puff} Inhale 1 Univers pratropium 6-13 Puff 4 ity of 20-100 00:00: (four) [place] mcg/actuati 00 times Medical on inhaler daily. Branch sodium Yes [id number] 4mL Inhale 4 Un rosalie chloride 7% 6-13 mL daily. ity of nebulizer 00:00: [place] solution 00 [facility] budesonide- Yes [id number] 2{puff} Inhale 2 Univers formoterol 6-13 Puffs 2 ity of 80-4.5 00:00: (two) [place] mcg/actuati 00 times Medical on inhaler daily. [place] albuterol-i Yes [id number] 1{puff} Inhale 1 Univers pratropium 6-13 Puff 4 ity of 20-100 00:00: (four) [place] mcg/actuati 00 times Medical on inhaler daily. [place] sodium Yes [id number] 4mL Inhale 4 Un rosalie chloride 7% 6-13 mL daily. ity of nebulizer 00:00: [place] solution [facility] budesonide- Yes [id number] 2{puff} Inhale 2 Univers formoterol 6-13 Puffs 2 ity of 80-4.5 00:00: (two) [place] mcg/actuati 00 times Medical on inhaler daily. [place] bacitracin- No Notes: Kashif bello polymyxin B [...] Herm annamaria 00 ) Neosporin No 1 applMiguelor ia 08-18 Route: l 21:07: TOP, Joe 00 Daily, Drug form: OINT, Start date: 08/18/16 15:07: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, Duration: 30 day, Stop date: 09/17/16 9:00: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 Neosporin 2017-0 No 1 appl, Memor ia 1-25 Route: l 21:07: TOP, Joe 00 Daily, Drug form: OINT, Start date: 08/18/16 15:07: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, Duration: 30 day, Stop date: 09/17/16 9:00: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 Neosporin 2017-0 No 1 appl, Memor ia 1-25 Route: l 21:07: TOP, Joe 00 Daily, Drug form: OINT, Start date: 08/18/16 15:07: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, Duration: 30 day, Stop date: 09/17/16 9:00: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 Neosporin 2017-0 No 1 appl, Memor ia 1-25 Route: l 21:07: TOP, [place] 00 Daily, Drug form: OINT, Start date: 08/18/16 15:07: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, Duration: 30 day, Stop date: 09/17/16 9:00: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 Neosporin 2017-0 No 1 appl, Memor ia 1-25 Route: l 21:07: TOP, [place] 00 Daily, Drug form: OINT, Start date: 08/18/16 15:07: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, Duration: 30 day, Stop date: 09/17/16 9:00: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 Neosporin 2017-0 No 1 appl, Memor ia 1-25 Route: l 21:07: TOP, Joe 00 Daily, Drug form: OINT, Start date: 08/18/16 15:07: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, Duration: 30 day, Stop date: 09/17/16 9:00: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 apixaban 5 2017-0 Yes 5 mg = [...] 14 30 cap, 0 capsule Refill(s) Metformin Yes 500 mg = 1 [...] tab, PO, l Tablet 18:09: Daily, # [place] 57 30 tab, 0 Refill(s) Furosemide 2017 Yes 20 mg = 1 Me moria 20 MG Oral 1-25 tab, PO, l Tablet 18:09: Daily, # [place] 57 30 tab, 0 Refill(s) Furosemide 2017 Yes 20 mg = 1 Me moria 20 MG Oral 1-25 tab, PO, l Tablet 18:09: Daily, # Joe 57 30 tab, 0 Refill(s) Furosemide 2017 Yes 20 mg = 1 Me moria 20 MG Oral 1-25 tab, PO, l Tablet 18:09: Daily, # [place] 57 30 tab, 0 Refill(s) Furosemide 2017-0 [...] tab, PO, l tablet 18:09: Daily, # [place] 51 30 tab, 0 Refill(s) finasteride 2017-0 Yes 5 mg = 1 Me moria 5 mg oral 1-25 tab, PO, l tablet 18:09: Daily, # [place] 51 30 tab, 0 Refill(s) finasteride 2017-0 Yes 5 mg = 1 Me moria 5 mg oral 1-25 tab, PO, l tablet 18:09: Daily, # [place] 51 30 tab, 0 Refill(s) finasteride 2017-0 Yes 5 mg = 1 Me moria 5 mg oral 1-25 tab, PO, l tablet 18:09: Daily, # Joe 51 30 tab, 0 Refill(s) finasteride 2017-0 Yes 5 mg = 1 Me moria 5 mg oral 1-25 tab, PO, l tablet 18:09: Daily, # [place] 51 30 tab, 0 Refill(s) finasteride 2017-0 Yes 5 mg = 1 Me moria 5 mg oral 1-25 tab, PO, l tablet 18:09: Daily, # [place] 51 30 tab, 0 Refill(s) DULoxetine 2017-0 [...] cap, PO, l delayed 18:07: Daily, # Leocnio n release 54 30 cap, 0 capsule Refill(s) finasteride No 5 mg = 1 Me moria 5 mg oral 1-25 tab, PO, l tablet 18:07: Daily, # [place] 50 30 tab, 0 Refill(s) finasteride No [...] tab, PO, l tablet 18:07: Daily, # [place] 50 30 tab, 0 Refill(s) finasteride No [...] tab, PO, l Tablet 18:07: Daily, # [place] 46 30 tab, 0 Refill(s) Furosemide No 20 mg = 1 Me moria 20 MG Oral 1-25 tab, PO, l Tablet 18:07: Daily, # [place] 46 30 tab, 0 Refill(s) Furosemide No 20 mg = 1 Me moria 20 MG Oral 1-25 tab, PO, l Tablet 18:07: Daily, # Joe 46 30 tab, 0 Refill(s) Furosemide No 20 mg = 1 Me moria 20 MG Oral 1-25 tab, PO, l Tablet 18:07: Daily, # [place] 46 30 tab, 0 Refill(s) Furosemide No [...] PO, l de 500 MG 18:07: [facility] Tablet 43 # 180 tab, 0 Refill(s) Metformin 2017-0 No 500 mg = 1 Me moria [...] 38 30 cap, 0 capsule Refill(s) omeprazole 0 No 40 mg = 1 Me moria 40 mg oral 1-25 cap, PO, l delayed 18:07: Daily, # Leoncio n release 38 30 cap, 0 capsule Refill(s) omeprazole No 40 mg = 1 Me moria 40 mg oral 1-25 cap, PO, l delayed 18:07: Daily, # Leoncio n release 38 30 cap, 0 capsule Refill(s) Ranitidine 2016-0 No 150 mg = 1 M emoria 150 MG Oral 1-25 tab, PO, l Tablet 18:07: BID, # 60 Leoncio n 33 tab, 0 Refill(s) Ranitidine 2016-0 No 150 mg = 1 M emoria 150 MG Oral 1-25 tab, PO, l Tablet 18:07: BID, # 60 Leoncio n 33 tab, 0 Refill(s) Ranitidine 2016-0 No 150 mg = 1 M emoria 150 MG Oral 1-25 tab, PO, l Tablet 18:07: BID, # 60 Leoncio n 33 tab, 0 Refill(s) Ranitidine 2016-0 No 150 mg = 1 M emoria 150 MG Oral 1-25 tab, PO, l Tablet 18:07: BID, # 60 Leoncio n 33 tab, 0 Refill(s) Ranitidine 0 No 150 mg = 1 M emoria 150 MG Oral 1-25 tab, PO, l Tablet 18:07: BID, # 60 Leoncio n 33 tab, 0 Refill(s) Ranitidine 2016-0 No 150 mg = 1 M emoria 150 MG Oral 1-25 tab, PO, l Tablet 18:07: BID, # 60 Leoncio n 33 tab, 0 Refill(s) tamsulosin 2016-0 No 0.4 mg = 1 M emoria 0.4 mg oral 1-25 cap, PO, l capsule 18:07: Daily, Priya Fang n 29 30 cap, 0 Refill(s) tamsulosin 2016-0 No 0.4 mg = 1 M emoria 0.4 mg oral 1-25 cap, PO, l capsule 18:07: Daily, # Leoncio n 29 30 cap, 0 Refill(s) tamsulosin 2017-0 No 0.4 mg = 1 M emoria 0.4 mg oral 1-25 cap, PO, l capsule 18:07: Daily, # Leoncio n 29 30 cap, 0 Refill(s) tamsulosin 2016-0 No 0.4 mg = 1 M emoria 0.4 mg oral 1-25 cap, PO, l capsule 18:07: Daily, Priya Fang n 29 30 cap, 0 Refill(s) tamsulosin [...] PO, l oral tablet 18:07: Bedtime, # [place] 21 30 tab, 0 Refill(s) atorvastati Yes 40 mg = 1 M emoria n 40 mg 1-25 tab, PO, l oral tablet 18:07: Bedtime, # [place] 21 30 tab, 0 Refill(s) atorvastati 2017- Yes 40 mg = 1 M emoria n 40 mg 1-25 tab, PO, l oral tablet 18:07: Bedtime, # Joe 21 30 tab, 0 Refill(s) atorvastati 2017- Yes 40 mg = 1 M emoria n 40 mg 1-25 tab, PO, l oral tablet 18:07: Bedtime, # Joe 21 30 tab, 0 Refill(s) atorvastati 2017 Yes 40 mg = 1 M emoria n 40 mg 1-25 tab, PO, l oral tablet 18:07: Bedtime, # Joe 21 30 tab, 0 Refill(s) atorvastati 2017 Yes 40 mg = 1 M emoria [...] nn tablet 16 tab, 0 Refill(s) metoprolol 2017 Yes 25 mg = 1 Me moria tartrate 25 1-25 tab, PO, l mg oral 18:07: BID, # 60 Mariah nn tablet 16 tab, 0 Refill(s) metoprolol Yes 25 mg = 1 Me moria tartrate 25 1-25 tab, PO, l mg oral 18:07: BID, # 60 Mariah nn tablet 16 tab, 0 Refill(s) metoprolol 2017- No 25 mg = 1 Me moria [...] PO, l oral tablet 18:05: Bedtime, # [place] 20 30 tab, 0 Refill(s) atorvastati No 40 mg = 1 M emoria n 40 mg 1-25 tab, PO, l oral tablet 18:05: Bedtime, # [place] 20 30 tab, 0 Refill(s) atorvastati No [...] PO, l oral tablet 18:05: Bedtime, # [place] 20 30 tab, 0 Refill(s) atorvastati 2017- No 40 mg = 1 M emoria n 40 mg 1-25 tab, PO, l oral tablet 18:05: Bedtime, # Joe 20 30 tab, 0 Refill(s) apixaban 5 2017-0 No 5 mg = 1 Mem [...] n [Eliquis] 15 tab, 0 Refill(s) tamsulosin 2017 No 0.4 mg = 1 M emoria 0.4 mg oral 1-25 cap, PO, l capsule 18:05: Daily, # Leoncio n 10 30 cap, 0 Refill(s) tamsulosin 2017- No 0.4 mg = 1 M emoria 0.4 mg oral 1-25 cap, PO, l capsule 18:05: Daily, # Leoncio n 10 30 cap, 0 Refill(s) tamsulosin 0 No 0.4 mg = 1 M emoria 0.4 mg oral 1-25 cap, PO, l capsule 18:05: Daily, # Leoncio n 10 30 cap, 0 Refill(s) tamsulosin 2016-0 No 0.4 mg = 1 M emoria 0.4 mg oral 1-25 cap, PO, l capsule 18:05: Daily, # Leoncio n 10 30 cap, 0 Refill(s) tamsulosin 2016-0 No 0.4 mg = 1 M emoria 0.4 mg oral 1-25 cap, PO, l capsule 18:05: Daily, # Leoncio n 10 30 cap, 0 Refill(s) tamsulosin 2016-0 No 0.4 mg = 1 M emoria 0.4 mg oral 1-25 cap, PO, l capsule 18:05: Daily, # Leoncio n 10 30 cap, 0 Refill(s) Ranitidine 0 No 150 mg [...] Leoncio n 04 tab, 0 Refill(s) Ranitidine 2016-0 No 150 mg = 1 M emoria 150 MG Oral 1-25 tab, PO, l Tablet 18:05: BID, # 60 Leoncio n 04 tab, 0 Refill(s) Ranitidine 0 No 150 mg = 1 M emoria 150 MG Oral 1-25 tab, PO, l Tablet 18:05: BID, # 60 Leoncio n 04 tab, 0 Refill(s) Ranitidine 2016-0 No 150 mg = 1 M emoria 150 MG Oral 1-25 tab, PO, l Tablet 18:05: BID, # 60 Leoncio n 04 tab, 0 Refill(s) omeprazole 0 No 40 mg = 1 Me moria [...] tab, PO, l Tablet 18:04: Daily, # [place] 48 30 tab, 0 Refill(s) Furosemide No 20 mg = 1 Me moria 20 MG Oral 1-25 tab, PO, l Tablet 18:04: Daily, # [place] 48 30 tab, 0 Refill(s) Furosemide No [...] tab, PO, l Tablet 18:04: Daily, # [place] 48 30 tab, 0 Refill(s) finasteride No [...] Joe 43 30 tab, 0 Refill(s) finasteride 0 No 5 mg = 1 Me moria 5 mg oral 1-25 tab, PO, l tablet 18:04: Daily, # [place] 43 30 tab, 0 Refill(s) finasteride No 5 mg = 1 Me moria 5 mg oral 1-25 tab, PO, l tablet 18:04: Daily, # Joe 43 30 tab, 0 Refill(s) finasteride No 5 mg = 1 Me moria 5 mg oral 1-25 tab, PO, l tablet 18:04: Daily, # [place] 43 30 tab, 0 Refill(s) DULoxetine No [...] release 37 30 cap, 0 capsule Refill(s) omeprazole No 40 mg = 1 Me moria 40 mg oral 1-25 cap, PO, l delayed 17:48: Daily, # Leoncio n release 00 30 cap, 0 capsule Refill(s) atorvastati No 40 mg = 1 M emoria n 40 mg 1-25 tab, PO, l oral tablet 17:48: Bedtime, # [place] 00 30 tab, 0 Refill(s) apixaban 5 [...] tab, PO, l Tablet 17:48: Daily, # [place] 00 30 tab, 0 Refill(s) finasteride No 5 mg = 1 Me moria 5 mg oral 1-25 tab, PO, l tablet 17:48: Daily, # [place] 00 30 tab, 0 Refill(s) DULoxetine No [...] PO, l oral tablet 17:48: Bedtime, # [place] 00 30 tab, 0 Refill(s) Ranitidine No [...] tab, PO, l Tablet 17:48: Daily, # [place] 00 30 tab, 0 Refill(s) finasteride No 5 mg = 1 Me moria 5 mg oral 1-25 tab, PO, l tablet 17:48: Daily, # [place] 00 30 tab, 0 Refill(s) DULoxetine No 60 mg = 1 Me moria 60 mg oral 1-25 cap, PO, l delayed 17:48: Daily, # Leoncio n release 00 30 cap, 0 capsule Refill(s) metoprolol No 25 mg = 1 Me moria tartrate 25 1-25 tab, PO, l mg oral 17:48: BID, # 60 Mariah nn tablet 00 tab, 0 Refill(s) metoprolol No 25 mg [...] tab, PO, l Tablet 17:48: Daily, # [place] 00 30 tab, 0 Refill(s) finasteride No 5 mg = 1 Me moria 5 mg oral 1-25 tab, PO, l tablet 17:48: Daily, # [place] 00 30 tab, 0 Refill(s) DULoxetine No [...] Joe 00 30 tab, 0 Refill(s) DULoxetine 2017 No 60 mg = 1 Me moria [...] PO, l oral tablet 17:48: Bedtime, # [place] 00 30 tab, 0 Refill(s) hydrOXYzine No 25 mg = 1 M emoria pamoate 1-25 cap, PO, l 17:45: Q6H, PRN [place] 00 nausea, # 20 cap, 0 Refill(s) [...] 00 nausea, # 20 cap, 0 Refill(s) metoprolol No 25 mg = 1 Me moria tartrate 25 1-25 tab, PO, l mg oral 17:40: BID, # 180 Herm annamaria tablet 00 tab, 0 Refill(s) apixaban 5 No 5 mg = 1 Mem oria MG Oral 1-25 tab, PO, l Tablet 17:40: BID, 0 [place] [Eliquis] 00 Refill(s) Metformin No 500 mg = 1 Me moria hydrochlori 1-25 tab, PO, l de 500 MG 17:40: BID-Meals, He rmann Oral Tablet 00 # 30 tab, 0 Refill(s) Furosemide No 20 mg = 1 Me moria 20 MG Oral 1-25 tab, PO, l Tablet 17:40: Daily, # [place] 00 30 tab, 0 Refill(s) Ranitidine No 150 mg = 1 M emoria 150 MG Oral 1-25 tab, PO, l Tablet 17:40: BID, # 60 Leoncio n 00 tab, 0 Refill(s) finasteride No 5 mg = 1 Me moria 5 mg oral 1-25 tab, PO, l tablet 17:40: Daily, # [place] 00 30 tab, 0 Refill(s) DULoxetine No [...] Mariah nn 00 30 tab, 0 Refill(s) Furosemide No 20 mg = 1 Me moria 20 MG Oral 1-25 tab, PO, l Tablet 17:40: Daily, # Joe 00 30 tab, 0 Refill(s) tamsulosin No 0.4 mg = 1 M emoria 0.4 mg oral 1-25 cap, PO, l capsule 17:40: Daily, # Leoncio n 00 30 cap, 0 Refill(s) finasteride No 5 mg = 1 Me moria 5 mg oral 1-25 tab, PO, l tablet 17:40: Daily, # [place] 00 30 tab, 0 Refill(s) omeprazole No [...] Herm annamaria tablet 00 tab, 0 Refill(s) oxybutynin No 5 mg = 1 Mem oria 5 mg oral 1-25 tab, PO, l tablet 17:40: TID, PRN Joe 00 Other-See Comments, # 30 tab, 0 Refill(s) apixaban 5 No 5 mg = 1 Mem oria MG Oral 1-25 tab, PO, l Tablet 17:40: BID, 0 [place] [Eliquis] 00 Refill(s) Metformin No 500 mg [...] 1-25 0 l 17:40: Refill(s) Joe 00 oxybutynin No 5 mg = 1 [...] tab, PO, l tablet 17:40: TID, PRN [place] 00 Other-See Comments, # 30 tab, 0 Refill(s) Furosemide No 20 mg = 1 Me moria 20 MG Oral 1-25 tab, PO, l Tablet 17:40: Daily, # Joe 00 30 tab, 0 Refill(s) finasteride No 5 mg = 1 Me moria 5 mg oral 1-25 tab, PO, l tablet 17:40: Daily, # [place] 00 30 tab, 0 Refill(s) omeprazole No 20 mg = 1 Me moria 20 mg oral 1-25 tab, PO, l enteric 17:40: BID, # 30 Mariah nn coated 00 tab, 0 tablet Refill(s) tamsulosin No 0.4 mg = 1 M emoria 0.4 mg oral 1-25 cap, PO, l capsule 17:40: Daily, # Leoncio n 00 30 cap, 0 Refill(s) Furosemide No 20 mg = 1 Me moria 20 MG Oral 1-25 tab, PO, l Tablet 17:40: Daily, # Joe 00 30 tab, 0 Refill(s) finasteride No 5 mg = 1 Me moria 5 mg oral 1-25 tab, PO, l tablet 17:40: Daily, # [place] 00 30 tab, 0 Refill(s) omeprazole No 20 mg = 1 Me moria 20 mg oral 1-25 tab, PO, l enteric 17:40: BID, # 30 Mariah nn coated 00 tab, 0 tablet Refill(s) tamsulosin No 0.4 mg = 1 M emoria 0.4 mg oral 1-25 cap, PO, l capsule 17:40: Daily, # Leoncio n 00 30 cap, 0 Refill(s) Omeprazole 0 No PO, Daily, M emoria 1-25 0 l 17:40: Refill(s) [place] 00 metoprolol No 25 mg = 1 Me moria tartrate 25 1-25 tab, PO, l mg oral 17:40: BID, # 180 Herm annamaria tablet 00 tab, 0 Refill(s) Omeprazole 0 No PO, Daily, M emoria 1-25 0 l 17:40: Refill(s) [place] 00 apixaban 5 No 5 mg = 1 Mem oria MG Oral 1-25 tab, PO, l Tablet 17:40: BID, 0 [place] [Eliquis] 00 Refill(s) Metformin No 500 mg [...] tab, PO, l Tablet 17:40: Daily, # [place] 00 30 tab, 0 Refill(s) finasteride No [...] n 00 30 cap, 0 Refill(s) Omeprazole 2016-0 No PO, Daily, M emoria 1-25 0 l 17:40: Refill(s) [place] 00 metoprolol No 25 mg = 1 [...] tab, PO, l tablet 17:40: TID, PRN [place] 00 Other-See Comments, # 30 tab, 0 [...] M emoria 1-25 0 l 17:40: Refill(s) [place] 00 metoprolol No 25 mg = 1 [...] 1-25 250 ml/hr, l 0.154 14:56: Infuse [place] MEQ/ML 00 Over: 1 Injectable hr, Route: Solution IV, 250, Drug form: INJ, ONCE, Priority: STAT, Dosing Weight 82 kg, Start date: 08/18/16 8:56: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, Duration: 1 doses or times, Stop date: 08/18/16 8:56: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 Sodium No 250 mL, Memoria Chloride 1-25 250 ml/hr, l 0.154 14:56: Infuse [place] MEQ/ML 00 Over: 1 Injectable hr, Route: Solution IV, 250, Drug form: INJ, ONCE, Priority: STAT, Dosing Weight 82 kg, Start date: 08/18/16 8:56: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, Duration: 1 doses or times, Stop date: 08/18/16 8:56: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 Sodium 2017-0 No 250 mL, Memoria Chloride 1-25 250 ml/hr, l 0.154 14:56: Infuse Joe MEQ/ML 00 Over: 1 Injectable hr, Route: Solution IV, 250, Drug form: INJ, ONCE, Priority: STAT, Dosing Weight 82 kg, Start date: 08/18/16 8:56: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, Duration: 1 doses or times, Stop date: 08/18/16 8:56: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 Sodium 2017-0 No 250 mL, Memoria Chloride 1-25 250 ml/hr, l 0.154 14:56: Infuse Joe MEQ/ML 00 Over: 1 Injectable hr, Route: Solution IV, 250, Drug form: INJ, ONCE, Priority: STAT, Dosing Weight 82 kg, Start date: 08/18/16 8:56: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, Duration: 1 doses or times, Stop date: 08/18/16 8:56: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 Sodium 2017-0 No 250 mL, Memoria Chloride 1-25 250 ml/hr, l 0.154 14:56: Infuse Joe MEQ/ML 00 Over: 1 Injectable hr, Route: Solution IV, 250, Drug form: INJ, ONCE, Priority: STAT, Dosing Weight 82 kg, Start date: 08/18/16 8:56: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, Duration: 1 doses or times, Stop date: 08/18/16 8:56: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 Sodium 2017-0 No 250 mL, Memoria Chloride 1-25 250 ml/hr, l 0.154 14:56: Infuse [place] MEQ/ML 00 Over: 1 Injectable hr, Route: Solution IV, 250, Drug form: INJ, ONCE, Priority: STAT, Dosing Weight 82 kg, Start date: 08/18/16 8:56: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, Duration: 1 doses or times, Stop date: 08/18/16 8:56: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 Tylenol 2017-0 No Notes: Do Memor ia 1-25 not exceed l 14:52: 4 gm/day. Joe 00 (Same as: Tylenol) Tylenol 2017-0 No Notes: Do Memor ia 1-25 not [...] 1-25 not exceed l 14:52: 4 gm/day. [place] (Same as: Tylenol) Magnesium No Notes: Memori a Oxide 1-25 (Same as: l 14:49: Mag-Ox Joe 00 400) Magnesium oxide 382qb=487x g elemental magnesium Dose=____m g magnesium oxide (___mg elemental magnesium) Magnesium No Notes: Memori a Oxide 1-25 (Same as: l 14:49: Mag-Ox Joe 400) Magnesium oxide 927ko=161g g elemental magnesium Dose=____m g magnesium oxide (___mg elemental magnesium) Magnesium No Notes: Memori a Oxide 1-25 (Same as: l 14:49: Mag-Ox Joe 400) Magnesium oxide 412ve=143c g elemental magnesium Dose=____m g magnesium oxide (___mg elemental magnesium) Magnesium No Notes: Memori a Oxide 1-25 (Same as: l 14:49: Mag-Ox Joe 400) Magnesium oxide 435rc=754t g elemental magnesium Dose=____m g magnesium oxide (___mg elemental magnesium) Magnesium 2016- No Notes: Memori a Oxide 1-25 (Same as: l 14:49: Mag-Ox Joe 400) Magnesium oxide 502il=754i g elemental magnesium Dose=____m g magnesium oxide (___mg elemental magnesium) Magnesium No Notes: Memori a Oxide 1-25 (Same as: l 14:49: Mag-Ox [place] 400) Magnesium oxide 805ov=730e g elemental magnesium Dose=____m g magnesium oxide (___mg elemental magnesium) Metoprolol No Notes: Memor ia 1-25 (Same as: l 10:35: Lopressor) [place] 00 Push over 2 minutes Metoprolol No Notes: Memor ia 1-25 (Same as: l 10:35: Lopressor) [place] 00 Push over 2 minutes Metoprolol No [...] Weight 82, kg, Start date: 08/18/16 0:00: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, Duration: 30 day, Stop date: 09/16/16 18:00: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 Robitussin 2017-0 No 30 mg, Memor ia CoughGels 1-25 Route: PO, l 06:00: Q6H, [place] 00 Dosing Weight 82, kg, Start date: 08/18/16 0:00: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, Duration: 30 day, Stop date: 09/16/16 18:00: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 Robitussin 2017-0 No 30 mg, [facility] CoughGels 1-25 Route: PO, l 06:00: Q6H, Joe Dosing Weight 82, kg, Start date: 08/18/16 0:00: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, Duration: 30 day, Stop date: 09/16/16 18:00: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 Robitussin 2017-0 No 30 mg, [facility] CoughGels 1-25 Route: PO, l 06:00: Q6H, Joe 00 Dosing Weight 82, kg, Start date: 08/18/16 0:00: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, Duration: 30 day, Stop date: 09/16/16 18:00: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 Robitussin 2017-0 No 30 mg, [facility] CoughGels 1-25 Route: PO, l 06:00: Q6H, [place] 00 Dosing Weight 82, kg, Start date: 08/18/16 0:00: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, Duration: 30 day, Stop date: 09/16/16 18:00: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 Robitussin 2017-0 No 30 mg, [facility] CoughGels 1-25 Route: PO, l 06:00: Q6H, [place] 00 Dosing Weight 82, kg, Start date: 08/18/16 0:00: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, Duration: 30 day, Stop date: 09/16/16 18:00: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 Eliquis 2017-0 No Notes: Memoria 1-25 Same as: l 03:00: Eliquis [place] 00 Eliquis 2017-0 No Notes: Memoria 1-25 Same as: l 03:00: Eliquis Joe Eliquis 2017-0 No Notes: Memoria 1-25 Same as: l 03:00: Eliquis Joe Eliquis 2017-0 No Notes: Memoria 1-25 Same as: l 03:00: Eliquis [place] 00 Eliquis 2017-0 No Notes: Memoria 1-25 Same as: l 03:00: Eliquis [place] 00 Eliquis 2017-0 No Notes: Memoria 1-25 Same as: l 03:00: Eliquis [place] 00 benzocaine- No Notes: Kashif bello menthol 1-25 Cepacol l topical 01:29: lozenges Leoncio n 00 Dispense 1 box = 16 lozenges (Same As: Cepacol Lozenges) benzocaine- No Notes: Kashif bello menthol 1-25 Cepacol l topical 01:29: lozenges Leoncio n 00 Dispense 1 box = 16 lozenges (Same As: Cepacol Lozenges) benzocaine- 0 No Notes: Kashif bello menthol 1-25 Cepacol [...] MG/ML 1-25 (Same as: l :46: Duoneb) Joe Ipratropium 00 [place] 0.167 MG/ML Inhalant Solution [DuoNeb] Albuterol No Notes: Memori a 0.833 MG/ML 1-25 (Same as: l :46: Duoneb) [place] Ipratropium 00 [place] 0.167 MG/ML Inhalant Solution [DuoNeb] Albuterol No Notes: Memori a 0.833 MG/ML 1-25 (Same as: :46: Duoneb) [place] Ipratropium 00 [place] 0.167 MG/ML Inhalant Solution [DuoNeb] Albuterol No Notes: Memori a 0.833 MG/ML 1-25 (Same as: :46: Duoneb) [place] Ipratropium 00 [place] 0.167 MG/ML Inhalant Solution [DuoNeb] Albuterol No Notes: Memori a 0.833 MG/ML 1-25 (Same as: :46: Duoneb) [place] Ipratropium 00 [place] 0.167 MG/ML Inhalant Solution [DuoNeb] Albuterol No Notes: Memori a 0.833 MG/ML 1-25 (Same as: l :46: Duoneb) Joe Ipratropium 00 [place] 0.167 MG/ML Inhalant Solution [DuoNeb] metoprolol No Notes: Memor ia tartrate 1-24 (Same as: l 22:00: Lopressor) 12.5mg=1/4 X 50 mg tab. metoprolol No Notes: Memor ia tartrate 1-24 (Same as: l 22:00: Lopressor) 12.5mg=1/4 X 50 mg tab. metoprolol No Notes: Memor ia tartrate 1-24 (Same as: l 22:00: Lopressor) 12.5mg=1/4 X 50 mg tab. metoprolol No Notes: Memor ia tartrate 1-24 (Same as: l 22:00: Lopressor) 12.5mg=1/4 X 50 mg tab. metoprolol No Notes: Memor ia tartrate 1-24 (Same as: l 22:00: Lopressor) 12.5mg=1/4 X 50 mg tab. metoprolol No Notes: Memor ia tartrate 1-24 (Same as: l 22:00: Lopressor) [place] 00 12.5mg=1/4 X 50 mg tab. Metoprolol No Notes: Memor ia 1-24 (Same as: l 15:58: Lopressor) Push over 2 minutes Metoprolol No Notes: Memor ia 1-24 (Same as: l 15:58: Lopressor) Push over 2 minutes Metoprolol No Notes: Memor ia 1-24 (Same as: l 15:58: Lopressor) Push over 2 minutes Metoprolol 0 No Notes: Memor ia 1-24 (Same as: l 15:58: Lopressor) Push over 2 minutes Metoprolol No Notes: Memor ia 1-24 (Same as: l 15:58: Lopressor) Push over 2 minutes Metoprolol 0 No Notes: Memor ia 1-24 (Same as: l 15:58: Lopressor) Push over 2 minutes Acetaminoph No Notes: Max Memoria en -24 acetaminop l 14:55: hen = [place] 00 4000mg/day (4 gm/day). (Same as: Tylenol) Acetaminoph No Notes: Max Memoria en 1-24 acetaminop l 14:55: hen = [place] 00 4000mg/day (4 gm/day). (Same as: Tylenol) [...] en -24 acetaminop l 14:55: hen = [place] 00 4000mg/day (4 gm/day). (Same as: Tylenol) Magnesium No Notes: Memori a Oxide -24 (Same as: l 11:32: Mag-Ox Joe 00 400) Magnesium oxide 690lg=462u g elemental magnesium Dose=____m g magnesium oxide (___mg elemental magnesium) Magnesium No Notes: Memori a Oxide -24 (Same as: l 11:32: Mag-Ox [place] 00 400) Magnesium oxide 132ux=379i g elemental magnesium Dose=____m g magnesium oxide (___mg elemental magnesium) Magnesium No Notes: Memori a Oxide 1-24 (Same as: l 11:32: Mag-Ox [place] 00 400) Magnesium oxide 533bi=168x g elemental magnesium Dose=____m g magnesium oxide (___mg elemental magnesium) Magnesium No Notes: Memori a Oxide 1-24 (Same as: l 11:32: Mag-Ox [place] 00 400) Magnesium oxide 893nc=088o g elemental magnesium Dose=____m g magnesium oxide (___mg elemental magnesium) Magnesium No Notes: Memori a Oxide 1-24 (Same as: l 11:32: Mag-Ox [place] 00 400) Magnesium oxide 528mp=358f g elemental magnesium Dose=____m g magnesium oxide (___mg elemental magnesium) Magnesium No Notes: Memori a Oxide 1-24 (Same as: l 11:32: Mag-Ox [place] 00 400) Magnesium oxide 928iq=009n g elemental magnesium Dose=____m g magnesium oxide (___mg elemental magnesium) Tramadol No Notes: Not Mem oria 1-24 to exceed l 10:22: 400mg/day. [place] 00 (Same As: Ultram) Tramadol No Notes: Not Mem oria 1-24 to exceed l 10:22: 400mg/day. [place] 00 (Same As: Ultram) Tramadol No Notes: Not Mem oria 1-24 to exceed l 10:22: 400mg/day. Joe (Same As: Ultram) Tramadol No Notes: Not Mem oria 1-24 to exceed l 10:22: 400mg/day. [place] 00 (Same As: Ultram) Tramadol No Notes: Not Mem oria 1-24 to exceed l 10:22: 400mg/day. [place] (Same As: Ultram) Tramadol No Notes: Not Mem oria 1-24 to exceed l 10:22: 400mg/day. [place] 00 (Same As: Ultram) atorvastati No Notes: Kashif bello n 1-24 (Same as: l 03:00: Lipitor) [place] 00 atorvastati No Notes: Kashif bello n 1-24 (Same as: l 03:00: Lipitor) [place] 00 atorvastati No Notes: Kashif bello n 1-24 (Same as: l 03:00: Lipitor) [place] atorvastati No Notes: Kashif bello n 1-24 (Same as: l 03:00: Lipitor) Joe 00 atorvastati No Notes: Kashif bello n 1-24 (Same as: l 03:00: Lipitor) [place] 00 atorvastati No Notes: Kashif bello n 1-24 (Same as: l 03:00: Lipitor) [place] 00 insulin No Notes: Memoria detemir 1-23 Same as l 15:00: Levemir Do [place] 00 not hold insulin without contacting prescriber WASTE: F/P - Black; E - Municipal Trash Bin "single patient use only" Protonix No Notes: Memoria 1-23 Tablet l 15:00: should not [place] 00 be chewed or crushed. 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 to NURSING HOME 8.6 MG Nicolasa-Colac Oral Tablet e. insulin No Notes: Memoria detemir 1-23 Same as l 15:00: Levemir Do [place] 00 not hold insulin without contacting prescriber WASTE: F/P - Black; E - Municipal Trash Bin "single patient use only" Protonix No Notes: Memoria 1-23 Tablet l 15:00: should not [place] 00 be chewed or crushed. 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 to NURSING HOME 8.6 MG Nicolasa-Colac Oral Tablet e. insulin No Notes: Memoria detemir 1-23 Same as l 15:00: Levemir Do [place] 00 not hold insulin without contacting prescriber WASTE: F/P - Black; E - Municipal Trash Bin "single patient use only" Protonix No Notes: Memoria 1-23 Tablet l 15:00: should not [place] 00 be chewed or crushed. 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 to NURSING HOME 8.6 MG Nicolasa-[place] Oral Tablet e. insulin No Notes: Memoria detemir 1-23 Same as l 15:00: Levemir Do [place] 00 not hold insulin without contacting prescriber WASTE: F/P - Black; E - Municipal Trash Bin "single patient use only" Protonix No Notes: Memoria 1-23 Tablet l 15:00: should not [place] 00 be chewed or crushed. 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 to NURSING HOME 8.6 MG Nicolasa-Col[place] Oral Tablet e. insulin No Notes: Memoria detemir 1-23 Same as l 15:00: Levemir Do [place] 00 not hold insulin without contacting prescriber WASTE: F/P - Black; E - Municipal Trash Bin "single patient use only" Protonix No Notes: Memoria 1-23 Tablet l 15:00: should not [place] 00 be chewed or crushed. 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 to NURSING HOME 8.6 MG Nicolasa-[place] Oral Tablet e. insulin No Notes: Memoria detemir 1-23 Same as l 15:00: Levemir Do [place] 00 not hold insulin without contacting prescriber WASTE: F/P - Black; E - Municipal Trash Bin "single patient use only" Protonix No Notes: Memoria 1-23 Tablet l 15:00: should not [place] 00 be chewed or crushed. 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 to NURSING HOME 8.6 MG Nicolasa-[place] Oral Tablet e. Insulin, No Notes: Memoria Aspart, 1-23 Roll in l Human 10:31: palms of [place] 00 hands gently; Do not shake vigorously . (Same as: NovoLOG) "single patient use only" WASTE: F/P - Black; E - Municipal Trash Bin Stable for 28 days at room temperatur e. Expires in days from ____Date Glucagon 2017-0 No 1 mg, Memoria 1- Route: IM, l 10:31: Drug form: [place] 00 PDR/INJ, PRN, Dosing Weight 82, kg, PRN Blood Glucose Results, Start date: 08/16/16 4:31: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, Duration: 30 day, Stop date: 09/15/16 4:30: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 Dextrose 2017-0 No 12.5 gm, Memor ia 50% Syringe 08-16 25 mL, l 10:31: Route: Joe 00 IVP, Drug Form: INJ, Dosing Weight 82, kg, PRN, PRN Blood Glucose Results, Start date: 08/16/16 4:31: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, Duration: 30 day, Stop date: 09/15/16 4:30: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 heparin 2016-0 No 500 mL, Memoria additive 08-16 Rate: l 25,000 unit 10:31: 20.68 Mariah nn [14 00 ml/hr, unit/kg/hr] Infuse + Premix over: 24.2 Diluent hr, Route: Dextrose 5% IV, Dosing 500 mL Weight 73.84 kg, Total Volume: 500 mL, Start date: 08/16/16 4:31: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, Duration: 30 day, Stop date: 09/15/16 4:30: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 Insulin, 2016-0 No Notes: Memoria Aspart, - Roll in l Human 10:31: palms of [place] 00 hands gently; Do not shake vigorously [...] Blood Glucose Results, Start date: 08/16/16 4:31: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, Duration: 30 day, Stop date: 09/15/16 4:30: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 Dextrose 2016-0 No 12.5 gm, Memor ia 50% Syringe 1-23 25 mL, l 10:31: Route: [place] 00 IVP, Drug Form: INJ, Dosing Weight 82, kg, PRN, PRN Blood Glucose Results, Start date: 08/16/16 4:31: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, Duration: 30 day, Stop date: 09/15/16 4:30: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 heparin 2016-0 No 500 mL, Memoria additive 1- Rate: l 25,000 unit 10:31: 20.68 Mariah nn [14 00 ml/hr, unit/kg/hr] Infuse + Premix over: 24.2 Diluent hr, Route: Dextrose 5% IV, Dosing 500 mL Weight 73.84 kg, Total Volume: 500 mL, Start date: 08/16/16 4:31: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, Duration: 30 day, Stop date: 09/15/16 4:30: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 Insulin, 2016-0 No Notes: Memoria Aspart, - Roll in l Human 10:31: palms of hands gently; Do not shake vigorously . (Same as: NovoLOG) "single patient use only" WASTE: F/P - Black; E - [employer] Trash Bin Stable for 28 days at room temperatur e. Expires in days from ____Date Glucagon 2016-0 No 1 mg, Memoria 1- Route: IM, l 10:31: Drug form: Joe PDR/INJ, PRN, Dosing Weight 82, kg, PRN Blood Glucose Results, Start date: 08/16/16 4:31: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, Duration: 30 day, Stop date: 09/15/16 4:30: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 Dextrose 2016-0 No 12.5 gm, Memor ia 50% Syringe 08-16 25 mL, l 10:31: Route: Joe IVP, Drug Form: INJ, Dosing Weight 82, kg, PRN, PRN Blood Glucose Results, Start date: 08/16/16 4:31: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, Duration: 30 day, Stop date: 09/15/16 4:30: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 heparin 2016-0 No 500 mL, Memoria additive 1- Rate: l 25,000 unit 10:31: 20.68 Mariah nn [14 00 ml/hr, unit/kg/hr] Infuse + Premix over: 24.2 Diluent hr, Route: Dextrose 5% IV, Dosing 500 mL Weight 73.84 kg, Total Volume: 500 mL, Start date: 08/16/16 4:31: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, Duration: 30 day, Stop date: 09/15/16 4:30: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 Insulin, 2016-0 No Notes: Memoria Aspart, 1-23 Roll in l Human 10:31: palms of [place] 00 hands gently; Do not shake vigorously . (Same as: NovoLOG) "single patient use only" WASTE: F/P - Black; E - [employer] Trash Bin Stable for 28 days at room temperatur e. Expires in days from ____Date Glucagon 2016-0 No 1 mg, Memoria 1-23 Route: IM, l 10:31: Drug form: [place] 00 PDR/INJ, PRN, Dosing Weight 82, kg, PRN Blood Glucose Results, Start date: 08/16/16 4:31: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, Duration: 30 day, Stop date: 09/15/16 4:30: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 Dextrose 2016-0 No 12.5 gm, Memor ia 50% Syringe 08-16 25 mL, l 10:31: Route: [place] 00 IVP, Drug Form: INJ, Dosing Weight 82, kg, PRN, PRN Blood Glucose Results, Start date: 08/16/16 4:31: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, Duration: 30 day, Stop date: 09/15/16 4:30: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 heparin 2016-0 No 500 mL, Memoria additive 1- Rate: l 25,000 unit 10:31: 20.68 Mariah nn [14 00 ml/hr, unit/kg/hr] Infuse + Premix over: 24.2 Diluent hr, Route: Dextrose 5% IV, Dosing 500 mL Weight 73.84 kg, Total Volume: 500 mL, Start date: 08/16/16 4:31: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, Duration: 30 day, Stop date: 09/15/16 4:30: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 Insulin, 2016-0 No Notes: Memoria Aspart, 1-23 Roll in l Human 10:31: palms of [place] 00 hands gently; Do not shake vigorously . (Same as: NovoLOG) "single patient use only" WASTE: F/P - Black; E - Municipal Trash Bin Stable for 28 days at room temperatur e. Expires in days from ____Date Glucagon 2016-0 No 1 mg, Memoria 08-16 Route: IM, l 10:31: Drug form: [place] 00 PDR/INJ, PRN, Dosing Weight 82, kg, PRN Blood Glucose Results, Start date: 08/16/16 4:31: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, Duration: 30 day, Stop date: 09/15/16 4:30: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 Dextrose 2016- No 12.5 gm, Memor ia 50% Syringe 08-16 25 mL, l 10:31: Route: [place] IVP, Drug Form: INJ, Dosing Weight 82, kg, PRN, PRN Blood Glucose Results, Start date: 08/16/16 4:31: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, Duration: 30 day, Stop date: 09/15/16 4:30: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 heparin 2016-0 No 500 mL, Memoria additive 08-16 Rate: l 25,000 unit 10:31: 20.68 Mariah nn [14 00 ml/hr, unit/kg/hr] Infuse + Premix over: 24.2 Diluent hr, Route: Dextrose 5% IV, Dosing 500 mL Weight 73.84 kg, Total Volume: 500 mL, Start date: 08/16/16 4:31: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, Duration: 30 day, Stop date: 09/15/16 4:30: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 Insulin, 2016-0 No Notes: Memoria Aspart, 08-16 Roll in l Human 10:31: palms of [place] 00 hands gently; Do not shake vigorously . (Same as: NovoLOG) "single patient use only" WASTE: F/P - Black; E - Municipal Trash Bin Stable for 28 days at room temperatur e. Expires in days from ____Date Glucagon 2016-0 No 1 mg, Memoria 08-16 Route: IM, l 10:31: Drug form: [place] 00 PDR/INJ, PRN, Dosing Weight 82, kg, PRN Blood Glucose Results, Start date: 08/16/16 4:31: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, Duration: 30 day, Stop date: 09/15/16 4:30: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 Dextrose 2016- No 12.5 gm, Memor ia 50% Syringe 1-23 25 mL, l 10:31: Route: [place] 00 IVP, Drug Form: INJ, Dosing Weight 82, kg, PRN, PRN Blood Glucose Results, Start date: 08/16/16 4:31: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, Duration: 30 day, Stop date: 09/15/16 4:30: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 heparin 2016- No 500 mL, Memoria additive 1-23 Rate: l 25,000 unit 10:31: 20.68 Mariah nn [14 00 ml/hr, unit/kg/hr] Infuse + Premix over: 24.2 Diluent hr, Route: Dextrose 5% IV, Dosing 500 mL Weight 73.84 kg, Total Volume: 500 mL, Start date: 08/16/16 4:31: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, Duration: 30 day, Stop date: 09/15/16 4:30: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 Magnesium 2016- No Notes: Memori a Sulfate 1-23 WASTE: F/P l 09:19: - Sink; E Joe - Municipal Trash Bin Magnesium No Notes: Memori a Sulfate 1-23 WASTE: F/P l 09:19: - Sink; E Joe - Municipal Trash Bin Magnesium No Notes: Memori a Sulfate 1-23 WASTE: F/P l 09:19: - Sink; E Joe - Municipal Trash Bin Magnesium No Notes: Memori a Sulfate 1-23 WASTE: F/P l 09:19: - Sink; E [place] 00 - Municipal Trash Bin Magnesium No Notes: Memori a Sulfate 1-23 WASTE: F/P l 09:19: - Sink; E Joe - Municipal Trash Bin Magnesium No Notes: Memori a Sulfate 1-23 WASTE: F/P l 09:19: - Sink; E Joe - Municipal Trash Bin Magnesium No 2 gm, Memoria Sulfate 1-23 Route: l 09:18: IVPB, Drug form: INJ, ONCE, Dosing Weight 82, kg, Start date: 08/16/16 3:18: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, Duration: 2 hr, Stop date: 08/16/16 3:18: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 Magnesium 2017-0 No 2 gm, Memoria Sulfate 08-16 Route: l 09:18: IVPB, Drug [place] 00 form: INJ, ONCE, Dosing Weight 82, kg, Start date: 08/16/16 3:18: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, Duration: 2 hr, Stop date: 08/16/16 3:18: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 Magnesium 2017-0 No 2 gm, Memoria Sulfate 08-16 Route: l 09:18: IVPB, Drug [place] 00 form: INJ, ONCE, Dosing Weight 82, kg, Start date: 08/16/16 3:18: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, Duration: 2 hr, Stop date: 08/16/16 3:18: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 Magnesium 2017-0 No 2 gm, Memoria Sulfate 08-16 Route: l 09:18: IVPB, Drug [place] 00 form: INJ, ONCE, Dosing Weight 82, kg, Start date: 08/16/16 3:18: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, Duration: 2 hr, Stop date: 08/16/16 3:18: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 Magnesium 2017-0 No 2 gm, Memoria Sulfate 08-16 Route: l 09:18: IVPB, Drug [place] 00 form: INJ, ONCE, Dosing Weight 82, kg, Start date: 08/16/16 3:18: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, Duration: 2 hr, Stop date: 08/16/16 3:18: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 Magnesium 2017-0 No 2 gm, Memoria Sulfate 08-16 Route: l 09:18: IVPB, Drug [place] 00 form: INJ, ONCE, Dosing Weight 82, kg, Start date: 08/16/16 3:18: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, Duration: 2 hr, Stop date: 08/16/16 3:18: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 Norepinephr 2016-0 No Notes: Not Memoria ine 1-23 for direct l 08:34: administra [place] 00 tion - DILUTE. Protect from light. (Same as:Levophe d). Administer by either central venous catheter or peripheral ly-inserte d central catheter (PICC) line. Norepinephr 2017-0 No Notes: Not Memoria ine 1-23 for direct l 08:34: administra [place] 00 tion - DILUTE. Protect from light. (Same as:Levophe d). Administer by either central venous catheter or peripheral ly-inserte d central catheter (PICC) line. Norepinephr 0 No Notes: Not Memoria ine 1- for direct l 08:34: administra [place] 00 tion - DILUTE. Protect from light. (Same as:Levophe d). Administer by either central venous catheter or peripheral ly-inserte d central catheter (PICC) line. Norepinephr No Notes: Not Memoria ine 1- for direct l 08:34: administra [place] 00 tion - DILUTE. Protect from light. (Same as:Levophe d). Administer by either central venous catheter or peripheral ly-inserte d central catheter (PICC) line. Norepinephr 0 No Notes: Not Memoria ine 1- for direct l 08:34: administra [place] 00 tion - DILUTE. Protect from light. (Same as:Levophe d). Administer by either central venous catheter or peripheral ly-inserte d central catheter (PICC) line. Norepinephr No Notes: Not Memoria ine 08-16 for direct l 08:34: administra [place] 00 tion - DILUTE. Protect from light. [...] 2 mg Product Wasted: ___ mg Versed 2017-0 No Notes: Memoria 1-23 (Same as: l 07:49: Versed) MEDICATION WASTE Product Size: 2 mg Product Wasted: ___ mg Versed 2016-0 No Notes: Memoria 1-23 (Same as: l 07:49: Versed) MEDICATION WASTE Product Size: 2 mg Product Wasted: ___ mg Fentanyl 2016-0 No 1,000 Memoria 1-23 microgram, l 07:48: 20 mL, [place] 00 Rate: Titrate, Start Dose: 50 microgram/ hr, Titration: 25 microgram/ hour every 15 minutes, Goal(s): RASS -2, Max Dose: 300 microgram/ hr, Route: IV, Dosing Weight 82 kg, Total Volume: 20, Start date: 08/16/16 1:48: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, Durati... Fentanyl 2016-0 No 1,000 Memoria 1-23 microgram, l 07:48: 20 mL, Joe 00 Rate: Titrate, Start Dose: 50 microgram/ hr, Titration: 25 microgram/ hour every 15 minutes, Goal(s): RASS -2, Max Dose: 300 microgram/ hr, Route: IV, Dosing Weight 82 kg, Total Volume: 20, Start date: 08/16/16 1:48: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, Durati... Fentanyl 2016-0 No 1,000 Memoria 1-23 microgram, l 07:48: 20 mL, [place] 00 Rate: Titrate, Start Dose: 50 microgram/ hr, Titration: 25 microgram/ hour every 15 minutes, Goal(s): RASS -2, Max Dose: 300 microgram/ hr, Route: IV, Dosing Weight 82 kg, Total Volume: 20, Start date: 08/16/16 1:48: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, Durati... Fentanyl 2017-0 No 1,000 Memoria 1-23 microgram, l 07:48: 20 mL, [place] 00 Rate: Titrate, Start Dose: 50 microgram/ hr, Titration: 25 microgram/ hour every 15 minutes, Goal(s): RASS -2, Max Dose: 300 microgram/ hr, Route: IV, Dosing Weight 82 kg, Total Volume: 20, Start date: 08/16/16 1:48: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, Durati... Fentanyl 2017-0 No 1,000 Memoria 1-23 microgram, l 07:48: 20 mL, [place] 00 Rate: Titrate, Start Dose: 50 microgram/ hr, Titration: 25 microgram/ hour every 15 minutes, Goal(s): RASS -2, Max Dose: 300 microgram/ hr, Route: IV, Dosing Weight 82 kg, Total Volume: 20, Start date: 08/16/16 1:48: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, Durati... Fentanyl 2017-0 No 1,000 Memoria 1-23 microgram, l 07:48: 20 mL, [place] 00 Rate: Titrate, Start Dose: 50 microgram/ hr, Titration: 25 microgram/ hour every 15 minutes, Goal(s): RASS -2, Max Dose: 300 microgram/ hr, Route: IV, Dosing Weight 82 kg, Total Volume: 20, Start date: 08/16/16 1:48: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, Durati... tramadol 2016-0 Yes 50 mg = [...] Amylases Yes 1 cap, PO, Mem oria 65300 UNT / 3-22 BID, PRN l Endopeptida 15:13: snack, 0 [place] [id number] Refill(s) UNT / Lipase 6000 UNT [...] Yes 1 drp, Kashif bello 0.05 MG/ML 22 RIGHT EYE, l Ophthalmic 15:13: Bedtime, 0 [...] Amylases Yes 1 cap, PO, Mem oria 61099 UNT / 3-22 BID, PRN l Endopeptida 15:13: snack, 0 [place] [id number] Refill(s) UNT / Lipase 6000 UNT [...] tab, PO, l tablet 15:13: TID, PRN [place] 00 Bladder Spasm, 0 Refill(s) tramadol No [...] Amylases Yes 1 cap, PO, Mem oria 37435 UNT / 3-22 BID, PRN l Endopeptida 15:13: snack, 0 [place] [id number] Refill(s) UNT / Lipase 6000 UNT [...] tab, PO, l tablet 15:13: TID, PRN [place] 00 Bladder Spasm, 0 Refill(s) tramadol No 50 mg = 1 Kashif bello hydrochlori 3-22 tab, PO, l de 50 MG 15:13: Q6H, PRN Mariah nn Oral Tablet 00 Pain Score 6-10, X 7 day, # 28 tab, 0 Refill(s) insulin Yes 8 unit, Memoria detemir 100 3-22 SUB-Q, l units/mL 15:13: Daily, you Her cramer subcutane 00 can s solution increase your long-actin [...] 2 tab, PO, l tablet 15:13: Bedtime, [place] 00 PRN Constipati on, AVAILABLE OVER THE COUNTER WITHOUT PRESCRIPTI ON, X 10 day, # 20 tab, 0 Refill(s) methocarbam Yes 750 mg = 1 Memoria ol 750 mg 3-22 tab, PO, l oral tablet 15:13: TID, X 14 H ermann 00 day, # 42 tab, 0 Refill(s) Amylases Yes 1 cap, PO, Mem oria 96486 UNT / 3-22 BID, PRN l Endopeptida 15:13: snack, 0 [place] [id number] 00 Refill(s) UNT / Lipase 6000 UNT [...] 3 mg, PO, M emoria mg oral 22 Bedtime, X l tablet 15:13: 30 day, [...] 00 to exceed 4000 mg/day, 0 Refill(s) Amylases Yes 1 cap, PO, Mem oria 13425 UNT / - BID, PRN l Endopeptida 15:13: snack, 0 [place] [id number] 00 Refill(s) UNT / Lipase 6000 UNT Enteric Coated Capsule [Creon 6] docusate Yes 100 mg = 1 Mem oria sodium 100 - cap, PO, l mg oral 15:13: BID, [place] capsule 00 AVAILABLE OVER THE COUNTER WITHOUT [...] Yes 1 drp, Kashif bello 0.05 MG/ML 22 RIGHT EYE, l Ophthalmic 15:13: Bedtime, 0 [...] 2 tab, PO, l tablet 15:13: Bedtime, [place] 00 PRN Constipati on, AVAILABLE OVER THE COUNTER WITHOUT PRESCRIPTI ON, X 10 day, # 20 tab, 0 Refill(s) Amylases Yes 1 cap, PO, Mem oria 48763 UNT / 3-22 BID, PRN l Endopeptida 15:13: snack, 0 [place] [id number] 00 Refill(s) UNT / Lipase 6000 UNT [...] tab, PO, l tablet 15:13: TID, PRN [place] 00 Bladder Spasm, 0 Refill(s) tramadol No [...] day, # 20 tab, 0 Refill(s) insulin 2015- No Notes: Memoria detemir 3-22 Same as l 14:00: Levemir Do [place] 00 not hold insulin without contacting prescriber WASTE: F/P - Black; E - Municipal Trash Bin "single patient use only" insulin No Notes: Memoria detemir 3-22 Same as l 14:00: Levemir Do [place] 00 not hold insulin without contacting prescriber WASTE: F/P - Black; E - Municipal Trash Bin "single patient use only" insulin No Notes: Memoria detemir 3-22 Same as l 14:00: Levemir Do [place] 00 not hold insulin without contacting prescriber WASTE: F/P - Black; E - Municipal Trash Bin "single patient use only" insulin 2015- No Notes: Memoria detemir 3-22 Same as l 14:00: Levemir Do [place] 00 not hold insulin without contacting prescriber WASTE: F/P - Black; E - Municipal Trash Bin "single patient use only" insulin No Notes: Memoria detemir 3-22 Same as l 14:00: Levemir Do [place] 00 not hold insulin without contacting prescriber WASTE: F/P - Black; E - Municipal Trash Bin "single patient use only" insulin No Notes: Memoria detemir 3-22 Same as l 14:00: Levemir Do [place] 00 not hold insulin without contacting prescriber [...] 3-21 Same as l 14:39: Levemir Do [place] 00 not hold insulin without contacting prescriber [...] 3-21 Same as l 14:39: Levemir Do [place] 00 not hold insulin without contacting prescriber WASTE: F/P - Black; E - Municipal Trash Bin "single patient use only" insulin No Notes: Memoria detemir 3-21 Same as l 14:39: Levemir Do [place] 00 not hold insulin without contacting prescriber WASTE: F/P - Black; E - Municipal Trash Bin "single patient use only" Enoxaparin No Notes: Memor ia 3-21 (Same as: l 14:00: Lovenox) Joe Kenalog No Notes: Memoria 0.1% 3-21 (triamcino l topical 14:00: lone [place] cream 00 acetonide 0.1% 15 gm top CRM) (Same As: Kenalog) Enoxaparin No Notes: Memor ia 3-21 (Same as: l 14:00: Lovenox) Joe Kenalog No Notes: Memoria 0.1% 3-21 (triamcino l topical 14:00: lone [place] cream 00 acetonide 0.1% 15 gm top CRM) (Same As: Kenalog) Enoxaparin No Notes: Memor ia 3-21 (Same as: l 14:00: Lovenox) [place] Kenalog No Notes: Memoria 0.1% 3-21 (triamcino l topical 14:00: lone [place] cream 00 acetonide 0.1% 15 gm top CRM) (Same As: Kenalog) Enoxaparin No Notes: Memor ia 3-21 (Same as: l 14:00: Lovenox) [place] Kenalog No Notes: Memoria 0.1% 3-21 (triamcino l topical 14:00: lone [place] cream 00 acetonide 0.1% 15 gm top CRM) (Same As: Kenalog) Enoxaparin No Notes: Memor ia 3-21 (Same as: l 14:00: Lovenox) Joe 00 Kenalog No Notes: Memoria 0.1% 3-21 (triamcino l topical 14:00: lone [place] cream 00 acetonide 0.1% 15 gm top CRM) (Same As: Kenalog) Enoxaparin No Notes: Memor ia 3-21 (Same as: l 14:00: Lovenox) [place] 00 Kenalog No Notes: Memoria 0.1% 3-21 (triamcino l topical 14:00: lone [place] cream 00 acetonide 0.1% 15 gm top CRM) (Same As: Kenalog) Insulin, No Notes: Memoria Aspart, 3-20 Roll in l Human 16:30: palms of [place] 00 hands gently; Do not shake vigorously . (Same as: NovoLOG) "single patient use only" WASTE: F/P - Black; E - Municipal Trash Bin Stable for 28 days at room temperatur e. Expires in days from ____Date Insulin, No Notes: Memoria Aspart, 3-20 Roll in l Human 16:30: palms of [place] 00 hands gently; Do not shake vigorously . (Same as: NovoLOG) "single patient use only" WASTE: F/P - Black; E - Municipal Trash Bin Stable for 28 days at room temperatur e. Expires in days from ____Date Insulin, No Notes: Memoria Aspart, 3-20 Roll in l Human 16:30: palms of [place] 00 hands gently; Do not shake vigorously . (Same as: NovoLOG) "single patient use only" WASTE: F/P - Black; E - Municipal Trash Bin Stable for 28 days at room temperatur e. Expires in days from ____Date Insulin, No Notes: Memoria Aspart, 3-20 Roll in l Human 16:30: palms of [place] 00 hands gently; Do not shake vigorously . (Same as: NovoLOG) "single patient use only" WASTE: F/P - Black; E - Municipal Trash Bin Stable for 28 days at room temperatur e. Expires in days from ____Date Insulin, No Notes: Memoria Aspart, 3-20 Roll in l Human 16:30: palms of [place] 00 hands gently; Do not shake vigorously [...] 3-20 Same as l 15:00: Levemir Do [place] 00 not hold insulin without contacting prescriber WASTE: F/P - Black; E - Municipal Trash Bin "single patient use only" insulin No Notes: Memoria detemir 3-20 Same as l 15:00: Levemir Do [place] 00 not hold insulin without contacting prescriber WASTE: F/P - Black; E - Municipal Trash Bin "single patient use only" insulin No Notes: Memoria detemir 3-20 Same as l 15:00: Levemir Do [place] 00 not hold insulin without contacting prescriber WASTE: F/P - Black; E - Municipal Trash Bin "single patient use only" insulin No Notes: Memoria detemir 3-20 Same as l 15:00: Levemir Do [place] 00 not hold insulin without contacting prescriber [...] Roll in l Human 13:00: palms of [place] 00 hands gently; Do not shake vigorously [...] Roll in l Human 13:00: palms of [place] 00 hands gently; Do not shake vigorously . (Same as: NovoLOG) "single patient use only" WASTE: F/P - Black; E - Municipal Trash Bin Stable for 28 days at room temperatur e. Expires in days from ____Date Insulin, No Notes: Memoria Aspart, 3-20 Roll in l Human 13:00: palms of [place] 00 hands gently; Do not shake vigorously [...] e 3-19 Tablet l 14:00: should not [place] 00 be chewed or crushed. (Same as: Protonix) Finasteride No Notes: Kashif bello 3-19 (Same as: l 14:00: Proscar) Joe 00 "Do Not Crush" Women of childbeari ng age should not touch or handle broken tablets duloxetine No Notes: Memor ia 3-19 (Same as: l 14:00: Cymbalta) [place] 00 (Do Not Crush) Aspirin 81 No [...] not crush l Coated 14:00: or chew. [place] Tablet 00 (Same As: Ecotrin) Robaxin No Notes: Memoria 3-19 (Same l 14:00: as:Robaxin [place] 00 ) Flomax No Notes: Memoria 3-19 (Same As: l 14:00: Flomax) [place] 00 "Do Not Crush" pantoprazol No Notes: Kashif bello e 3-19 Tablet l 14:00: should not [place] 00 be chewed or crushed. (Same as: Protonix) Finasteride No Notes: Kashif bello 3-19 (Same as: l 14:00: Proscar) [place] 00 "Do Not Crush" Women of childbeari ng age should not touch or handle broken tablets Robaxin No Notes: Memoria 3-19 (Same l 14:00: as:Robaxin [place] 00 ) duloxetine No Notes: Memor ia 3-19 (Same as: l 14:00: Cymbalta) [place] 00 (Do Not Crush) Flomax No Notes: Memoria 3-19 (Same As: l 14:00: Flomax) Joe 00 "Do Not Crush" Aspirin 81 No Notes: Do Me moria MG Enteric 3-19 not crush l Coated 14:00: or chew. [place] Tablet 00 (Same As: Ecotrin) pantoprazol No Notes: Kashif bello e 3-19 Tablet l 14:00: should not [place] 00 be chewed or crushed. (Same as: [...] Notes: Memoria 3-19 (Same l 14:00: as:Robaxin [place] 00 ) Flomax No Notes: Memoria 3-19 (Same As: l 14:00: Flomax) [place] 00 "Do Not Crush" pantoprazol No Notes: Kashif bello e 3-19 Tablet l 14:00: should not [place] 00 be chewed or crushed. (Same as: Protonix) Finasteride No Notes: Kashif bello 3-19 (Same as: l 14:00: Proscar) [place] 00 "Do Not Crush" Women of childbeari ng age should not touch or handle broken tablets duloxetine No Notes: Memor ia 3-19 (Same as: l 14:00: Cymbalta) [place] 00 (Do Not Crush) Aspirin 81 No [...] e 3-19 Tablet l 14:00: should not [place] 00 be chewed or crushed. (Same as: Protonix) Finasteride No Notes: Kashif bello 3-19 (Same as: l 14:00: Proscar) [place] 00 "Do Not Crush" Women of childbeari ng age should not touch or handle broken tablets duloxetine No Notes: Memor ia 10-10 (Same as: l 14:00: Cymbalta) [place] 00 (Do Not Crush) Aspirin 81 No Notes: Do Me moria MG Enteric 10-10 not crush l Coated 14:00: or chew. Joe Tablet 00 (Same As: Ecotrin) Amylases No Notes: Memoria 00178 UNT / 10-10 (lipase l Endopeptida 13:00: 60,000 [place] [address] 00 units, UNT / protease Lipase 6000 19,000 UNT Enteric units, Coated amylase Capsule 30,000 [Creon 6] units DRC) Same as: Sumit (Sumit 6) Amylases No Notes: Memoria 79704 UNT / 10-10 (lipase l Endopeptida 13:00: 60,000 [place] 8[address] 00 units, UNT / protease Lipase 6000 19,000 UNT Enteric units, Coated amylase Capsule 30,000 [Creon 6] units DRC) Same as: Sumit (Carolon 6) Amylases No Notes: Memoria 37962 UNT / 10-10 (lipase l Endopeptida 13:00: 60,000 [place] 79[address] 00 units, UNT / protease Lipase 6000 19,000 UNT Enteric units, Coated amylase Capsule 30,000 [Creon 6] units DRC) Same as: Sumit (Sumit 6) Amylases No Notes: Memoria 83639 UNT / 10-10 (lipase l Endopeptida 13:00: 60,000 [place] 9[address] 00 units, UNT / protease Lipase 6000 19,000 UNT Enteric units, Coated amylase Capsule 30,000 [Creon 6] units DRC) Same as: Sumit (Carolon 6) Amylases No Notes: Memoria 10525 UNT / 10-10 (lipase l Endopeptida 13:00: 60,000 [place] [address] 00 units, UNT / protease Lipase 6000 19,000 UNT Enteric units, Coated amylase Capsule 30,000 [Creon 6] units DRC) Same as: Sumit (Creon 6) Amylases No Notes: Memoria UNT / - (lipase l Endopeptida 13:00: 60,000 Herm [place]amaria [place] 80003 00 units, UNT / protease Lipase 6000 19,000 UNT Enteric units, Coated amylase Capsule 30,000 [Creon 6] units DRC) Same as: Sumit (Carolon 6) Amylases No Notes: Memoria UNT / 10-10 (lipase l Endopeptida 12:16: 60,000 [place] 8[address] 00 units, UNT / protease Lipase 6000 19,000 UNT Enteric units, Coated amylase Capsule 30,000 [Creon 6] units DRC) Same as: Sumit (Carolon 6) Amylases No Notes: Memoria UNT / 10-10 (lipase l Endopeptida 12:16: 60,000 [place] [address] 00 units, UNT / protease Lipase 6000 19,000 UNT Enteric units, Coated amylase Capsule 30,000 [Creon 6] units DRC) Same as: Sumit (Sumit 6) Amylases No Notes: Memoria UNT / - (lipase l Endopeptida 12:16: 60,000 [place] 419[address] 00 units, UNT / protease Lipase 6000 19,000 UNT Enteric units, Coated amylase Capsule 30,000 [Creon 6] units DRC) Same as: Sumit (Sumit 6) Amylases No Notes: Memoria UNT / - (lipase l Endopeptida 12:16: 60,000 [place] 9[address] 00 units, UNT / protease Lipase 6000 19,000 UNT Enteric units, Coated amylase Capsule 30,000 [Creon 6] units DRC) Same as: Sumit (Carolon 6) Amylases No Notes: Memoria UNT / - (lipase l Endopeptida 12:16: 60,000 [place] 94607 00 units, UNT / protease Lipase 6000 19,000 UNT Enteric units, Coated amylase Capsule 30,000 [Creon 6] units DRC) Same as: Sumit (Carolon 6) Amylases No Notes: Memoria UNT / - (lipase l Endopeptida 12:16: 60,000 [place] 279[address] 00 units, UNT / protease Lipase 6000 19,000 UNT Enteric units, Coated amylase Capsule 30,000 [Creon 6] units [facility]) Same as: Creon (Creon 6) Simvastatin No Notes: Kashif bello 3-19 (Same as: l 02:00: Zocor) [place] 00 Melatonin 3 No Notes: Kashif bello MG Extended 3-19 (Same as: l Release 02:00: Melatonin) Herm annamaria Tablet 00 latanoprost No Notes: Kashif bello 0.05 MG/ML 3-19 Keep l Ophthalmic 02:00: refrigerat H ermann Solution 00 ed. (Same as:Xalatan ) Simvastatin No Notes: Kashif bello 3-19 (Same as: l 02:00: Zocor) [place] Melatonin 3 No Notes: Kashif bello MG Extended 3-19 (Same as: l Release 02:00: Melatonin) Herm annamaria Tablet 00 latanoprost No Notes: Kashif bello 0.05 MG/ML 3-19 Keep l Ophthalmic 02:00: refrigerat H ermann Solution 00 ed. (Same as:Xalatan ) Simvastatin No Notes: Kashif bello 3-19 (Same as: l 02:00: Zocor) [place] Melatonin 3 No Notes: Kashif bello MG Extended 3-19 (Same as: l Release 02:00: Melatonin) Herm annamaria Tablet 00 latanoprost No Notes: Kashif bello 0.05 MG/ML 3-19 Keep l Ophthalmic 02:00: refrigerat H ermann Solution 00 ed. (Same as:Xalatan ) Simvastatin No Notes: Kashif bello 3-19 (Same as: l 02:00: Zocor) [place] Melatonin 3 No Notes: Kashif bello MG Extended 3-19 (Same as: l Release 02:00: Melatonin) Herm annamaria Tablet 00 latanoprost No Notes: Kashif bello 0.05 MG/ML 3-19 Keep l Ophthalmic 02:00: refrigerat H ermann Solution 00 ed. (Same as:Xalatan ) Simvastatin No Notes: Kashif bello 3-19 (Same as: l 02:00: Zocor) [place] Melatonin 3 No Notes: Kashif bello MG Extended 3-19 (Same as: l Release 02:00: Melatonin) Herm annamaria Tablet 00 latanoprost No Notes: Kashif bello 0.05 MG/ML 3-19 Keep l Ophthalmic 02:00: refrigerat H ermann Solution 00 ed. (Same as:Xalatan ) Simvastatin No Notes: Kashif bello 3-19 (Same as: l 02:00: Zocor) [place] 00 Melatonin 3 No Notes: Kashif bello MG Extended 3-19 (Same as: l Release 02:00: Melatonin) Herm annamaria Tablet 00 latanoprost No Notes: Kashif bello 0.05 MG/ML 3-19 Keep l Ophthalmic 02:00: refrigerat H ermann Solution 00 ed. (Same as:Xalatan ) insulin No Notes: Memoria detemir 3-18 Same as l 22:12: Levemir Do [place] 00 not hold insulin without contacting prescriber [...] 3-18 Same as l 22:12: Levemir Do [place] 00 not hold insulin without contacting prescriber WASTE: F/P - Black; E - Municipal Trash Bin "single patient use only" insulin No Notes: Memoria detemir 3-18 Same as l 22:12: Levemir Do [place] 00 not hold insulin without contacting prescriber WASTE: F/P - Black; E - Municipal Trash Bin "single patient use only" insulin No Notes: Memoria detemir 3-18 Same as l 22:12: Levemir Do [place] 00 not hold insulin without contacting prescriber [...] l 22:00: Lyrica) Amylases No Notes: Memoria 49964 UNT / 3-18 (lipase l Endopeptida 22:00: 60,000 [place] [address] 00 units, UNT / protease Lipase 6000 19,000 UNT Enteric units, Coated amylase Capsule 30,000 [Creon 6] units [facility]) Same as: Creon (Creon 6) pregabalin No Notes: Memor ia 3-18 Same as l 22:00: Lyrica Lyrica No Notes: Memoria 3-18 (Same as: l 22:00: Lyrica) Amylases No Notes: Memoria 28482 UNT / 3-18 (lipase l Endopeptida 22:00: 60,000 [place] [address] 00 units, UNT / protease Lipase 6000 19,000 UNT Enteric units, Coated amylase Capsule 30,000 [Creon 6] units DRC) Same as: Sumit (Sumit 6) pregabalin No Notes: Memor ia 3-18 Same as l 22:00: Lyrica Joe Lyrica No Notes: Memoria 3-18 (Same as: l 22:00: Lyrica) [place] Amylases No Notes: Memoria 74241 UNT / 3-18 (lipase l Endopeptida 22:00: 60,000 [place] 7[address] 00 units, UNT / protease Lipase 6000 19,000 UNT Enteric units, Coated amylase Capsule 30,000 [Creon 6] units DRC) Same as: Sumit (Caroljeri 6) pregabalin No Notes: Memor ia 3-18 Same as l 22:00: Lyrica Joe Lyrica No Notes: Memoria 3-18 (Same as: l 22:00: Lyrica) Joe Amylases No Notes: Memoria 82537 UNT / 3-18 (lipase l Endopeptida 22:00: 60,000 [place] 7[address] 00 units, UNT / protease Lipase 6000 19,000 UNT Enteric units, Coated amylase Capsule 30,000 [Creon 6] units DRC) Same as: Sumit (Caroljeri 6) pregabalin No Notes: Memor ia 3-18 Same as l 22:00: Lyrica [place] Lyrica No Notes: Memoria 3-18 (Same as: l 22:00: Lyrica) [place] Amylases No Notes: Memoria 12469 UNT / 3-18 (lipase l Endopeptida 22:00: 60,000 [place] 74239 00 units, UNT / protease Lipase 6000 19,000 UNT Enteric units, Coated amylase Capsule 30,000 [Creon 6] units DRC) Same as: Sumit (Caroljeri 6) pregabalin No Notes: Memor ia 3-18 Same as l 22:00: Lyrica Joe Lyrica No Notes: Memoria 3-18 (Same as: l 22:00: Lyrica) Joe Amylases No Notes: Memoria 37493 UNT / 3-18 (lipase l Endopeptida 22:00: 60,000 [place] 389[address] 00 units, UNT / protease Lipase 6000 [...] Amylases No 1 cap, PO, Mem oria 21353 UNT / 3-18 QID, # 120 l Endopeptida 18:27: cap, 0 [place] 02[address] 00 Refill(s) UNT / Lipase 6000 UNT Enteric Coated Capsule [Creon 6] calcium-vit Yes 1 tab, PO, Memoria mendez D 250 3-18 TID, 0 l mg-125 18:27: Refill(s) Leoncio n units oral 00 tablet Vitamin B Yes 1000 mcg, Mem oria 12 3-18 IM, ONCE, l 18:27: 0 [place] 00 Refill(s) finasteride Yes 5 mg = 1 Me moria 5 mg oral 3-18 tab, PO, l tablet 18:27: Daily, # [place] 00 30 tab, 0 Refill(s) metoprolol Yes [...] tab, PO, l tablet 18:27: TID, PRN [place] 00 Other-See Comments, # 30 tab, 0 [...] Amylases No 1 cap, PO, Mem oria 93148 UNT / 3-18 QID, # 120 l Endopeptida 18:27: cap, 0 Herm [place] 09063 00 Refill(s) UNT / Lipase 6000 UNT [...] tab, PO, l tablet 18:27: Daily, # [place] 00 30 tab, 0 Refill(s) metoprolol Yes [...] detemir 3-18 SUB-Q, l 18:27: Daily, 0 [place] 00 Refill(s) pregabalin Yes 150 mg = 1 M emoria 150 mg oral 3-18 cap, PO, l capsule 18:27: TID, # 90 Mariah nn 00 cap, 0 Refill(s) Insulin, 0 No 12 unit, Memor ia Aspart, 3-18 SUB-Q, l Human 18:27: TID-Before Leoncio n 00 Meals, 0 Refill(s) oxybutynin No 5 mg = 1 Mem oria 5 mg oral 3-18 tab, PO, l tablet 18:27: TID, PRN [place] 00 Other-See Comments, # 30 tab, 0 Refill(s) DULoxetine Yes 60 mg = 1 Me moria 60 mg oral 3-18 cap, PO, l delayed 18:27: Daily, # Leoncio n release 00 90 cap, 0 capsule Refill(s) omeprazole 2016 Yes 20 mg = 1 Me moria 20 mg oral 3-18 tab, PO, l enteric 18:27: Daily, # Leoncio n coated 00 30 tab, 3 tablet Refill(s) simvastatin Yes 10 mg = 1 M emoria 10 mg oral 3-18 tab, PO, l tablet 18:27: Bedtime, # Mariah nn 00 30 tab, 0 Refill(s) Amylases No 1 cap, PO, Mem oria 42440 UNT / 3-18 QID, # 120 l Endopeptida 18:27: cap, 0 [place] 22769 00 Refill(s) UNT / Lipase 6000 UNT [...] 12 3-18 IM, ONCE, l 18:27: 0 [place] 00 Refill(s) simvastatin 2016 Yes 10 mg = 1 M emoria 10 mg oral 3-18 tab, PO, l tablet 18:27: Bedtime, # Mariah nn 00 30 tab, 0 Refill(s) finasteride Yes 5 mg = 1 Me moria 5 mg oral 3-18 tab, PO, l tablet 18:27: Daily, # Joe 00 30 tab, 0 Refill(s) Amylases 0 No 1 cap, PO, Mem oria 99369 UNT / 3-18 QID, # 120 l Endopeptida 18:27: cap, 0 [place] [address] 00 Refill(s) UNT / Lipase 6000 UNT [...] ONCE, l 18:27: 0 [place] 00 Refill(s) insulin No 30 unit, Memori a detemir 3-18 SUB-Q, l 18:27: Daily, 0 [place] 00 Refill(s) finasteride Yes 5 [...] tab, PO, l tablet 18:27: TID, PRN [place] 00 Other-See Comments, # 30 tab, 0 [...] tab, PO, l tablet 18:27: TID, PRN [place] 00 Other-See Comments, # 30 tab, 0 [...] Amylases No 1 cap, PO, Mem oria 67310 UNT / 3-18 QID, # 120 l Endopeptida 18:27: cap, 0 Herm [place] 71881 00 Refill(s) UNT / Lipase 6000 UNT Enteric Coated Capsule [Creon 6] calcium-vit Yes 1 tab, PO, Memoria mendez D 250 3-18 TID, 0 l mg-125 18:27: Refill(s) Leoncio n units oral 00 tablet Vitamin B Yes 1000 mcg, Mem oria 12 3-18 IM, ONCE, l 18:27: 0 [place] 00 Refill(s) finasteride Yes 5 mg = 1 Me moria 5 mg oral 3-18 tab, PO, l tablet 18:27: Daily, # [place] 00 30 tab, 0 Refill(s) metoprolol 2016-0 Yes 25 mg = 1 Me moria [...] Amylases No 1 cap, PO, Mem oria 51556 UNT / 3-18 QID, # 120 l Endopeptida 18:27: cap, 0 Herm [place]amaria ses 67051 00 Refill(s) UNT / Lipase 6000 UNT [...] tab, PO, l Coated 18:11: Daily, # [place] Tablet 00 90 tab, 3 Refill(s) latanoprost [...] No 0 Memoria 3-18 Refill(s) l 18:11: [place] 00 Ranitidine No 0 Memoria 3-18 Refill(s) [...] Daily, # l 18:11: 30 tab, 0 [place] 00 Refill(s) Tamsulosin Yes 0.4 mg = 1 M emoria hydrochlori 3-18 cap, PO, l de 0.4 MG 18:11: Daily, 0 Herm annamaria Oral 00 Refill(s) Capsule [Flomax] metoprolol No BID, 0 Memor ia tartrate 3-18 Refill(s) l 18:11: [place] 00 duloxetine No PO, 0 Memori a 3-18 Refill(s) l 18:11: [place] 00 Ibuprofen No 0 Memoria 3-18 Refill(s) l 18:11: [place] 00 Ranitidine No 0 Memoria 3-18 Refill(s) l 18:11: Joe insulin No SUB-Q, 0 Memori a detemir 3-18 Refill(s) l 18:11: [place] 00 Aspirin 81 Yes 81 mg = [...] Daily, # l 18:11: 30 tab, 0 [place] 00 Refill(s) Aspirin 81 Yes 81 mg = 1 Me moria MG Enteric 3-18 tab, PO, l Coated 18:11: Daily, # Joe Tablet 00 90 tab, 3 Refill(s) Tamsulosin Yes 0.4 mg = 1 M emoria hydrochlori 3-18 cap, PO, l de 0.4 MG 18:11: Daily, 0 Herm annamaria Oral 00 Refill(s) Capsule [Flomax] latanoprost No 1 drp, Kashif bello 0.05 [...] a 3-18 Refill(s) l 18:11: [place] 00 pantoprazol Yes 40 mg, PO, Memoria e 3-18 Daily, # l 18:11: 30 tab, 0 [place] 00 Refill(s) Ibuprofen No 0 Memoria 3-18 Refill(s) l 18:11: [place] 00 Tamsulosin Yes 0.4 mg = 1 M emoria hydrochlori 3-18 cap, PO, l de 0.4 MG 18:11: Daily, 0 Herm annamaria Oral 00 Refill(s) Capsule [Flomax] Ranitidine No 0 Memoria 3-18 Refill(s) l 18:11: [place] 00 metoprolol No BID, 0 Memor ia tartrate 3-18 Refill(s) l 18:11: [place] 00 insulin No SUB-Q, 0 Memori a detemir 3-18 Refill(s) l 18:11: [place] 00 duloxetine No PO, 0 Memori a 3-18 Refill(s) l 18:11: [place] 00 Ibuprofen No 0 Memoria 3-18 Refill(s) l 18:11: [place] Ranitidine No 0 Memoria 3-18 Refill(s) l 18:11: [place] insulin No SUB-Q, 0 Memori a detemir [...] Memor ia tartrate 3-18 Refill(s) l 18:11: [place] 00 duloxetine No PO, 0 Memori a 3-18 Refill(s) l 18:11: [place] 00 Ibuprofen No 0 Memoria 3-18 Refill(s) l 18:11: [place] 00 Ranitidine No 0 Memoria 3-18 Refill(s) l 18:11: [place] 00 insulin No SUB-Q, 0 Memori a detemir 3-18 Refill(s) l 18:11: [place] 00 Aspirin 81 Yes 81 mg = 1 Me moria MG Enteric 3-18 tab, PO, l Coated 18:11: Daily, # [place] Tablet 00 90 tab, 3 Refill(s) latanoprost [...] Memor ia tartrate 3-18 Refill(s) l 18:11: duloxetine No PO, 0 Memori a 3-18 Refill(s) l 18:11: Ibuprofen No 0 Memoria 3-18 Refill(s) l 18:11: Ranitidine No 0 Memoria 3-18 Refill(s) l 18:11: insulin No SUB-Q, 0 Memori a detemir [...] 17:09: oline ) Push over 5 minutes Hydralazine No [...] Expires in days from ____Date Dextrose No 25 gm, 50 Kashif bello 50% Syringe 3-18 mL, Route: l 13:25: IVP, Drug Form: INJ, Dosing Weight 84.8, kg, PRN, PRN Blood Glucose Results, Start date: 10/10/15 8:25:00, Duration: 30 day, Stop date: 11/09/15 8:24:00 Glucagon 2015-0 No 1 mg, Memoria 318 Route: IM, l 13:25: Drug form: [place] 00 PDR/INJ, PRN, Dosing Weight 84.8, kg, PRN Blood Glucose Results, Start date: 10/10/15 8:25:00, Duration: 30 day, Stop date: 11/09/15 8:24:00 Insulin 2016-0 No 60 units) Kashif bello regular 3-18 WASTE: F/P l 13:25: - Black; E [place] - Municipal Trash Bin Stable for 28 days at room temperatur e Expires in days from ____Date Dextrose 2016-0 No 25 gm, 50 Kashif bello 50% Syringe 3-18 mL, Route: l 13:25: IVP, Drug Form: INJ, Dosing Weight 84.8, kg, PRN, PRN Blood Glucose Results, Start date: 10/10/15 8:25:00, Duration: 30 day, Stop date: 11/09/15 8:24:00 Glucagon 2015-0 No 1 mg, Memoria 3 Route: IM, l 13:25: Drug form: Joe 00 PDR/INJ, PRN, Dosing Weight 84.8, kg, PRN Blood Glucose Results, Start date: 10/10/15 8:25:00, Duration: 30 day, Stop date: 11/09/15 8:24:00 Insulin 2016-0 No 60 units) Kashif bello regular -18 WASTE: F/P l 13:25: - Black; E [place] - Municipal Trash Bin Stable for 28 days at room temperatur e Expires in days from ____Date Dextrose 2015-0 No 25 gm, 50 Kashif bello 50% Syringe 3-18 mL, Route: l 13:25: IVP, Drug [place] 00 Form: INJ, Dosing Weight 84.8, kg, PRN, PRN Blood Glucose Results, Start date: 10/10/15 8:25:00, Duration: 30 day, Stop date: 11/09/15 8:24:00 Glucagon 2016-0 No 1 mg, Memoria 3-18 Route: IM, l 13:25: Drug form: [place] 00 PDR/INJ, PRN, Dosing Weight 84.8, kg, PRN Blood Glucose Results, Start date: 10/10/15 8:25:00, Duration: 30 day, Stop date: 11/09/15 8:24:00 Insulin 2016-0 No 60 units) Kashif bello regular 3-18 WASTE: F/P l 13:25: - Black; E Joe 00 - [employer] [facility] Stable for 28 days at room temperatur e Expires in days from ____Date Dextrose 2016-0 No 25 gm, 50 Kashif bello 50% Syringe 3-18 mL, Route: l 13:25: IVP, Drug Form: INJ, Dosing Weight 84.8, kg, PRN, PRN Blood Glucose Results, Start date: 10/10/15 8:25:00, Duration: 30 day, Stop date: 11/09/15 8:24:00 Glucagon 2016-0 No 1 mg, Memoria 3-18 Route: IM, l 13:25: Drug form: Joe 00 PDR/INJ, PRN, Dosing Weight 84.8, kg, PRN Blood Glucose Results, Start date: 10/10/15 8:25:00, Duration: 30 day, Stop date: 11/09/15 8:24:00 Insulin 2016-0 No 60 units) Kashif bello regular -18 WASTE: F/P l 13:25: - Black; E [...] 30 day, Stop date: 11/09/15 8:24:00 Glucagon 2016-0 No 1 mg, Memoria 3-18 Route: IM, l 13:25: Drug form: Joe PDR/INJ, PRN, Dosing Weight 84.8, kg, PRN Blood Glucose Results, Start date: 10/10/15 8:25:00, Duration: 30 day, Stop date: 11/09/15 8:24:00 Insulin No 60 units) Kashif bello regular 3-18 WASTE: F/P l 13:25: - Black; E Joe 00 - [facility] Trash Bin Stable for 28 days at room temperatur e Expires in days from ____Date Dextrose No 25 gm, 50 Kashif bello 50% Syringe 3-18 mL, Route: l 13:25: IVP, Drug Form: INJ, Dosing Weight 84.8, kg, PRN, PRN Blood Glucose Results, Start date: 10/10/15 8:25:00, Duration: 30 day, Stop date: 11/09/15 8:24:00 Glucagon No 1 mg, Memoria 318 Route: IM, l 13:25: Drug form: [place] 00 PDR/INJ, PRN, Dosing Weight 84.8, kg, PRN Blood Glucose Results, Start date: 10/10/15 8:25:00, Duration: 30 day, Stop date: 11/09/15 8:24:00 Acetaminoph No Notes: Max Memoria en 3-18 acetaminop l 05:00: hen 4000 Joe 00 mg/day (4 gm/day). (Same as: Tylenol Extra Strength) Acetaminoph No Notes: Max Memoria en 3-18 acetaminop l 05:00: hen 4000 [place] 00 mg/day (4 gm/day). (Same as: Tylenol [...] en 3-18 acetaminop l 05:00: hen 4000 [place] 00 mg/day (4 gm/day). (Same as: Tylenol Extra Strength) Haldol No Notes: Memoria 3-18 (Same as: l 04:47: Haldol) [place] Haldol No Notes: Memoria 3-18 (Same as: l 04:47: Haldol) [place] Haldol No Notes: Memoria 3-18 (Same as: l 04:47: Haldol) Joe Haldol No Notes: Memoria 3-18 (Same as: l 04:47: Haldol) [place] Haldol No Notes: Memoria 3-18 (Same as: l 04:47: Haldol) [place] Haldol No Notes: Memoria 3-18 (Same as: l 04:47: Haldol) [place] 00 sennosides, No Notes: Kashif bello NURSING HOME 3-18 (Same as: l 02:00: Senokot) [place] Docusate No Notes: Memoria 3-18 (Same as: l 02:00: Colace) [place] (Do Not Crush) sennosides, No Notes: Kashif bello NURSING HOME 3-18 (Same as: l 02:00: Senokot) [place] Docusate No Notes: Memoria 3-18 (Same as: l 02:00: Colace) Joe (Do Not Crush) sennosides, No Notes: Kashif bello NURSING HOME 3-18 (Same as: l 02:00: Senokot) Joe Docusate No Notes: Memoria 3-18 (Same as: l 02:00: Colace) [place] (Do Not Crush) sennosides, No Notes: Kashif bello NURSING HOME 3-18 (Same as: l 02:00: Senokot) [place] 00 Docusate No Notes: Memoria 3-18 (Same as: l 02:00: Colace) [place] (Do Not Crush) sennosides, No Notes: Kashif bello NURSING HOME 3-18 (Same as: l 02:00: Senokot) Docusate No Notes: Memoria 3-18 (Same as: l 02:00: Colace) [place] (Do Not Crush) sennosides, No Notes: Kashif bello NURSING HOME 3-18 (Same as: l 02:00: Senokot) [place] 00 Docusate No Notes: Memoria 3-18 (Same as: l 02:00: Colace) [place] 00 (Do Not Crush) metoprolol No Notes: Memor ia tartrate 3-18 (Same as: l 00:51: Lopressor) metoprolol No Notes: Memor ia tartrate 3-18 (Same as: l 00:51: Lopressor) metoprolol No Notes: Memor ia tartrate 3-18 (Same as: l 00:51: Lopressor) [place] 00 metoprolol No Notes: Memor ia tartrate 3-18 (Same as: l 00:51: Lopressor) metoprolol No Notes: Memor ia tartrate 3-18 (Same as: l 00:51: Lopressor) Joe 00 metoprolol No Notes: Memor ia tartrate 3-18 (Same as: l 00:51: Lopressor) Oxycodone No Notes: Memori a Hydrochlori 3-17 [...] - 60 mg/dL Insulin 0 No 60 units) Kashif bello regular 10-08 WASTE: F/P l 22:20: - Black; E - Municipal Trash Bin Stable for 28 days at room temperatur e Expires in days from ____Date Dextrose 0 No 12.5 gm, Memor ia 50% Syringe 3-17 25 mL, l 22:20: Route: Joe 00 IVP, Drug Form: INJ, Dosing Weight 84.8, kg, PRN, PRN Abnormal Lab Result, Start date: 10/09/15 17:20:00, Duration: 30 day, Stop date: 11/08/15 17:19:00, For FSBG 40 mg/dL - 60 mg/dL Insulin 0 No 60 units) Kashif bello regular 10-08 WASTE: F/P l 22:20: - Black; E [place] 00 - Municipal Trash Bin Stable for 28 days at room temperatur e Expires in days from ____Date Dextrose 0 No 12.5 gm, Memor ia 50% Syringe 3-17 25 mL, l 22:20: Route: [place] 00 IVP, Drug Form: INJ, Dosing Weight 84.8, kg, PRN, PRN Abnormal Lab Result, Start date: 10/09/15 17:20:00, Duration: 30 day, Stop date: 11/08/15 17:19:00, For FSBG 40 mg/dL - 60 mg/dL Insulin 2016-0 No 60 units) Kashif bello regular 3-17 WASTE: F/P l 22:20: - Black; E [place] - Municipal Trash Bin Stable for 28 days at room temperatur e Expires in days from ____Date Dextrose 2015-0 No 12.5 gm, Memor ia 50% Syringe 3-17 25 mL, l 22:20: Route: [place] 00 IVP, Drug Form: INJ, Dosing Weight [...] Syringe 3-17 25 mL, l 22:20: Route: [place] 00 IVP, Drug Form: INJ, Dosing Weight [...] No 12.5 gm, Memor ia 50% Syringe 10-08 25 mL, l 22:20: Route: [place] 00 IVP, Drug Form: INJ, Dosing Weight 84.8, kg, PRN, PRN Abnormal Lab Result, Start date: 10/09/15 17:20:00, Duration: 30 day, Stop date: 11/08/15 17:19:00, For FSBG 40 mg/dL - 60 mg/dL Insulin No 60 units) Kashif bello regular 10-08 WASTE: F/P l 22:20: - Black; E Joe - Municipal Trash Bin Stable for 28 days at room temperatur e Expires in days from ____Date Isolyte S No Notes: Memori a PH 7.4 -17 (Same as: l 1,000 mL 20:46: Isolyte S Herm annamaria 00 PH 7.4) Isolyte S No Notes: Memori a PH 7.4 -17 (Same as: l 1,000 mL 20:46: Isolyte [...] ne 10-08 Same as: l 19:00: Dilaudid [place] Hydromorpho No Notes: Kashif bello ne 10-08 Same as: l 19:00: Dilaudid Joe Hydromorpho 2016-0 No Notes: Kashif ebllo ne 3-17 Same as: l 19:00: Dilaudid Joe Hydromorpho 0 No Notes: Kashif bello ne 3-17 Same as: l 19:00: Dilaudid [place] Hydromorpho No Notes: Kashif bello ne 3-17 Same as: l 19:00: Dilaudid [place] Hydromorpho No Notes: Kashif bello ne 3-17 Same as: l 19:00: Dilaudid Joe Dilaudid 2015-0 No 1 mg, Memoria 3-17 Route: l 15:12: IVP, ONCE, Joe 00 Dosing Weight 81.818, kg, Priority: STAT, Start date: 10/09/15 10:12:00, Stop date: 10/09/15 10:12:00 Dilaudid 2015-0 No 1 mg, Memoria 3-17 Route: l 15:12: IVP, ONCE, [place] 00 Dosing Weight 81.818, kg, Priority: STAT, Start date: 10/09/15 10:12:00, Stop date: 10/09/15 10:12:00 Dilaudid 2015-0 No 1 mg, Memoria 3-17 Route: l [...] Memoria 3-17 Route: l 15:12: IVP, ONCE, [place] 00 Dosing Weight 81.818, kg, Priority: STAT, Start date: 10/09/15 10:12:00, Stop date: 10/09/15 10:12:00 Dilaudid 2016-0 No 1 mg, Memoria 3-17 Route: l 15:12: IVP, ONCE, Joe 00 Dosing Weight 81.818, kg, Priority: STAT, Start date: 10/09/15 10:12:00, Stop date: 10/09/15 10:12:00 Hydromorpho No Notes: Kashif bello ne 3-17 Same as: l 12:55: Dilaudid [place] 00 Hydromorpho No Notes: Kashif bello ne 3-17 Same as: l 12:55: Dilaudid Joe 00 Hydromorpho No Notes: Kashif bello ne 3-17 Same as: l 12:55: Dilaudid [place] 00 Hydromorpho No Notes: Kashif bello ne 3-17 Same as: l 12:55: Dilaudid [place] 00 Hydromorpho No Notes: Kashif bello ne 3-17 Same as: l 12:55: Dilaudid Joe 00 Hydromorpho No Notes: Kashif bello ne 3-17 Same as: l 12:55: Dilaudid [place] 00 Fentanyl No Notes: Memoria 3-17 (Same as: l 09:26: Sublimaze) [place] 00 Preservati ve free. Fentanyl No Notes: Memoria 3-17 (Same as: l 09:26: Sublimaze) Joe 00 Preservati ve free. Fentanyl No Notes: Memoria 3-17 (Same as: l 09:26: Sublimaze) [place] 00 Preservati ve free. Fentanyl No Notes: Memoria 3-17 (Same as: l 09:26: Sublimaze) [place] 00 Preservati ve free. Fentanyl No Notes: Memoria 3-17 (Same as: l 09:26: Sublimaze) [place] 00 Preservati ve free. Fentanyl 2015-0 No Notes: Memoria 3-17 (Same as: l 09:26: Sublimaze) [place] 00 Preservati ve free. Heparin 30 No Route: Memor ia unit/kg 10-08 IVP, PRN, l Bolus 07:39: 2,200 Joe (Heparin 00 unit, 2.2 Dosing mL, Drug Weight) form: INJ, PRN, Heparin Protocol, Start date: 10/09/15 2:39:00 Stop date: 11/08/15 2:38:00, 30 day Heparin 60 No Route: Memor ia unit/kg 3-17 IVP, PRN, l Bolus 07:39: 4,400 [place] (Heparin 00 unit, 4.4 Dosing mL, Drug Weight) form: INJ, PRN, Heparin Protocol, Start date: 10/09/15 2:39:00 Stop date: 11/08/15 2:38:00 heparin 2015-0 No 500 mL, Memoria additive 3-17 Rate: [...] 3-17 IVP, PRN, l Bolus 07:39: 2,200 [place] (Heparin 00 unit, 2.2 Dosing mL, Drug Weight) form: INJ, PRN, Heparin Protocol, Start date: 10/09/15 2:39:00 Stop date: 11/08/15 2:38:00, 30 day Heparin 60 No Route: Memor ia unit/kg 3-17 IVP, PRN, l Bolus 07:39: 4,400 [place] (Heparin 00 unit, 4.4 Dosing mL, Drug Weight) form: INJ, PRN, Heparin Protocol, Start date: 10/09/15 2:39:00 Stop date: 11/08/15 2:38:00 heparin 2015-0 No 500 mL, Memoria additive 3-17 Rate: [...] 3-17 IVP, PRN, l Bolus 07:39: 4,400 [place] (Heparin 00 unit, 4.4 Dosing mL, Drug [...] 30 day, Stop date: 11/08/15 2:38:00 heparin No 500 [...] 3-17 IVP, PRN, l Bolus 07:39: 2,200 [place] (Heparin 00 unit, 2.2 Dosing mL, Drug Weight) form: INJ, PRN, Heparin Protocol, Start date: 10/09/15 2:39:00 Stop date: 11/08/15 2:38:00, 30 day Heparin 60 No Route: Memor ia unit/kg 3-17 IVP, PRN, l Bolus 07:39: 4,400 [place] (Heparin 00 unit, 4.4 Dosing mL, Drug [...] 3-17 IVP, PRN, l Bolus 07:39: 4,400 [place] (Heparin 00 unit, 4.4 Dosing mL, Drug Weight) form: INJ, PRN, Heparin Protocol, Start date: 10/09/15 2:39:00 Stop date: 11/08/15 2:38:00 heparin 2016-0 No [...] Source Systolic blood 2022-10-15 23:01:00 102 mm[facility]Hg[facility] Diastolic blood 2022-10-15 23:01:00 78 mm[Hg] [facility] Heart rate 2022-10-15 23:01:00 109 /min [facility] Respiratory rate 2022-10-15 23:01:00 18 /min [facility] Oxygen saturation in 2022-10-15 23:01:00 95 /min [facility] Arterial blood by [facility] Pulse oximetry [place] Body temperature 2022-10-15 21:46:00 36.5 Korin [facility] Body weight 2022-10-15 21:46:00 58.06 kg [facility] BMI 2022-10-15 21:46:00 19.46 kg/m2 [facility] Respitory Rate 2016-08-18 21:09:00 Memori al [place] Systolic (mm Hg) 2016-08-18 21:09:00 Kashif rial [place] Diastolic (mm Hg) 2016-08-18 21:09:00 Mem orial Joe Systolic (mm Hg) 2016-08-18 20:00:00 Kashif rial Joe Diastolic (mm Hg) 2016-08-18 20:00:00 Mem orial Joe Respitory Rate 2016-08-18 20:00:00 Memori al Joe Systolic (mm Hg) 2016-08-18 19:00:00 Kashif rial Joe Diastolic (mm Hg) 2016-08-18 19:00:00 Mem orial [place] Respitory Rate 2016-08-18 19:00:00 Memori al [place] Temperature Oral (F) 2016-08-18 17:51:00 98.3 F Memorial [place] Temperature Oral (F) 2016-08-18 14:26:00 97.9 F [facility] [place] Temperature Oral (F) 2016-08-18 11:27:00 96.9 F [facility] [place] Height 2016-08-16 16:29:00 172.72 cm Memorial [place] Height 2016-08-16 14:43:00 172.72 cm Memorial [place] Height 2016-08-16 08:55:00 172.72 cm Memorial Joe [...] Systolic (mm Hg) 2015-10-14 13:12:00 Kashif rial [place] Diastolic (mm Hg) 2015-10-14 13:12:00 Mem orial Joe Temperature Oral (F) 2015-10-14 13:12:00 97.8 F [facility] [place] Heart Rate 2015-10-14 13:12:00 [facility] [place] Respitory Rate 2015-10-14 11:26:00 Memori al [place] Systolic (mm Hg) 2015-10-14 11:26:00 Kashif rial [place] Diastolic (mm Hg) 2015-10-14 11:26:00 Mem orial [place] Temperature Oral (F) 2015-10-14 11:26:00 97.7 F [facility] [place] Heart Rate 2015-10-14 11:26:00 [facility] Joe BMI Calculated 2015-10-09 21:00:00 Memori al Joe Weight 2015-10-09 21:00:00 [facility] Joe Height 2015-10-09 21:00:00 172.72 cm [facility] [place] Weight 2015-10-09 06:32:00 [facility] Joe Height 2015-10-09 06:32:00 172.72 cm Maricarmen Diaz BMI Calculated 2015-10-09 06:32:00 Refugio Raza Procedures Procedure Date / Time Performed Performing Clinician Joshua palmer Pancreas Maricarmen Diaz excision<sup>1</sup> Encounters Start End Encounter Admission Attending Care Care Encounter Source Date/Time Date/Time Type Type Clinicians Facility Department ID 2022-09-21 Outpatient 3 [id number] [facility] CVA [id number] [facility] 11:23:14 [id number] 2022-09-16 Outpatient 3 [id number] [facility] REF [id number] [facility] 12:56:39 [id number] [facility] 2022-09-13 Outpatient 3 [id number] [facility] REF [id number] [facility] 12:05:50 [id number] [facility] 2022-10-15 2022-10-15 Emergency X SINGER NHMARIO ERT [id number] [facility] 16:51:00 19:27:00 JEANETTE connelly [facility] 2022-10-15 2022-10-15 Emergency Zaida Matias [facility] [id number] [facility] 16:51:00 19:27:00 Jeanette Fonseca [id number] ity [facility] [id number] [facility] [id number] [facility] [address] 2022-08-29 2022-08-29 Nurse KG Lizama [id number] [facility] 00:00:00 00:00:00 Triage Royce Cowan NICK [id number] it [facility] [id number] Michael [id number] [facility] florin [address] 2021-05-14 2021-05-14 Outpatient DMG DMG [id number] [facility] 08:02:00 08:02:00 [facility] 2016-08-16 2016-08-18 Inpatient [facility] hospital [id number] Memoria 06:53:00 22:10:00 tommie Burton l [facility] 2016-08-16 2016-08-18 Inpatient nullFlavo [facility] [id number] Memoria 06:53:00 22:10:[address] 2016-08-16 2016-08-18 Inpatient carolaFlavo Maricarmen [id number] Memoria 06:53:00 22:10:[address] 2016-08-16 2016-08-18 Outpatient Michela [facility] [id number] 00:53:00 16:10:00 [place] [address] 2016-08-16 2016-08-18 Outpatient Michela, [facility] [id number] 00:53:00 16:10:00 [place] [address] 2015-10-08 2015-10-14 Inpatient Karyo Maricarmen [id number] Memoria 06:32:00 18:55:[address] 2015-10-08 2015-10-14 Inpatient Karyo Maricarmen [id number] Memoria 06:32:00 18:55:[address] 2015-10-08 2015-10-14 Inpatient Karyo Maricarmen [id number] Memoria 06:32:00 18:55:[address] 2015-10-08 2015-10-14 Outpatient Mouser, [facility] [id number] 01:32:00 13:55:00 Leland Melendez 2015-10-08 2015-10-14 Outpatient Mouser, [facility] [id number] 01:32:00 13:55:00 Leland Melendez Results Test Description Test Time Test Comments Results Result Comments Source CHEM PANEL 2016-08-18 10:45:00 Test Item Value Reference Range Interpretation Comme nts eGFR (test code = eGFR) [id number] 10:45:00 Test Item Value Reference Range Interpretation Comments BUN (test code = BUN) 14 [facility] [id number] 10:45:00 Test Item Value Reference Range Interpretation Comments Glucose Lvl (test code = Glucose Lvl) 166 70-99 [facility] [id number] 10:45:00 Test Item Value Reference Range Interpretation Comments Creatinine Lvl (test code = Creatinine 0.92 0.50-1.40 Lvl) [facility]2017-01-25 10:45:00 Test Item Value Reference Range Interpretation Comments Sodium Lvl (test code = Sodium Lvl) 140 135-145 [facility]2017-01-25 10:45:00 Test Item Value Reference Range Interpretation Comments Potassium Lvl (test code = Potassium 4.1 3.5-5.1 Lvl) [facility]2017-01-25 10:45:00 Test Item Value Reference Range Interpretation Comments Chloride Lvl (test code = Chloride Lvl) 102 95-109 [facility]2017-01-25 10:45:00 Test Item Value Reference Range Interpretation Comments CO2 (test code = CO2) 29 24-32 [facility]2017-01-25 10:45:00 Test Item Value Reference Range Interpretation Comments AGAP (test code = AGAP) 13.1 10.0-20.0 [facility]2017-01-25 10:45:00 Test Item Value Reference Range Interpretation Comments Phosphorus (test code = Phosphorus) 3.7 2.5-4.5 [id number] 10:45:00 Test Item Value Reference Range Interpretation Comments Platelet (test code = Platelet) 158 133-450 [id number] 10:45:00 Test Item Value Reference Range Interpretation Comments MPV (test code = MPV) 9.1 7.4-10.4 [id number] 10:45:00 Test Item Value Reference Range Interpretation Comments RDW (test code = RDW) 17.0 11.5-14.5 [id number] 10:45:00 Test Item Value Reference Range Interpretation Comments MCHC (test code = MCHC) 32.1 32.0-36.0 [id number] 10:45:00 Test Item Value Reference Range Interpretation Comments Hct (test code = Hct) 38.7 42.0-54.0 [id number] 10:45:00 Test Item Value Reference Range Interpretation Comments RBC (test code = RBC) 4.60 4.70-6.10 [id number] 10:45:00 Test Item Value Reference Range Interpretation Comments WBC (test code = WBC) 8.0 3.7-10.4 [id number] 10:45:00 Test Item Value Reference Range Interpretation Comments Hgb (test code = Hgb) 12.4 14.0-18.0 [id number] 10:45:00 Test Item Value Reference Range Interpretation Comments MCH (test code = MCH) 27.0 pg 27.0-31.0 [id number] 10:45:00 Test Item Value Reference Range Interpretation Comments MCV (test code = MCV) 84.2 80.0-94.0 [id number] 10:45:00 Test Item Value Reference Range Interpretation Comments Segs (test code = Segs) 70.2 45.0-75.0 [id number] 10:45:00 Test Item Value Reference Range Interpretation Comments Eosinophils # (test code 0.3 See_Comment [A utomated message] The = Eosinophils #) system wh h generated this result tra nsmitted reference range : <=0.5. The reference r delaney was not used to int erpret this result as normal/abnormal . [id number] 10:45:00 Test Item Value Reference Range Interpretation Comments Monocytes # (test code 0.5 See_Comment [Aut omated message] The = Monocytes #) system which generated this result tra nsmitted reference range : <=0.8. The reference r delaney was not used to int erpret this result as normal/abnormal . [id number] 10:45:00 Test Item Value Reference Range Interpretation Comments Monocytes (test code = Monocytes) 6.5 2.0-12.0 [id number] 10:45:00 Test Item Value Reference Range Interpretation Comments Basophils (test code = 0.3 See_Comment [Aut omated message] The Basophils) system which ge nerated this result tra nsmitted reference range : <=1.0. The reference r delaney was not used to int erpret this result as normal/abnormal . [id number] 10:45:00 Test Item Value Reference Range Interpretation Comments Segs-Bands # (test code = Segs-Bands #) 5.6 1.5-8.1 [facility] [id number] 10:45:00 Test Item Value Reference Range Interpretation Comments Eosinophils (test code = 3.4 See_Comment [A utomated message] The Eosinophils) system which ge nerated this result tra nsmitted reference range : <=4.0. The reference r delaney was not used to int erpret this result as normal/abnormal . [id number] 10:45:00 Test Item Value Reference Range Interpretation Comments Lymphocytes # (test code = Lymphocytes 1.6 1.0-5.5 #) [id number] 10:45:00 Test Item Value Reference Range Interpretation Comments Lymphocytes (test code = Lymphocytes) 19.6 20.0-40.0 [facility]2017-01-25 10:45:00 Test Item Value Reference Range Interpretation Comments Magnesium Lvl (test code = Magnesium 1.9 1.8-2.4 Lvl) [facility]2017-01-25 10:45:00 Test Item Value Reference Range Interpretation Comments Magnesium Lvl (test code = Magnesium 1.9 1.8-2.4 Lvl) [facility]2017-01-25 10:45:00 Test Item Value Reference Range Interpretation Comments Calcium Lvl (test code = Calcium Lvl) 9.2 8.5-10.5 [facility]2017-01-25 10:45:00 Test Item Value Reference Range Interpretation Comments Calcium Lvl (test code = Calcium Lvl) 9.2 8.5-10.5 [facility]2017-01-25 10:45:00 Test Item Value Reference Range Interpretation Comments eGFR (test code = eGFR) 85 [facility]2017-01-25 10:45:00 Test Item Value Reference Range Interpretation Comments eGFR (test code = eGFR) [facility]2017-01-25 10:45:00 Test Item Value Reference Range Interpretation Comments BUN (test code = BUN) 02-12 [facility]2017-01-25 10:45:00 Test Item Value Reference Range Interpretation Comments BUN (test code = BUN) 02-12 [facility]2017-01-25 10:45:00 Test Item Value Reference Range Interpretation Comments Glucose Lvl (test code = Glucose Lvl) 166 70-99 [facility]2017-01-25 10:45:00 Test Item Value Reference Range Interpretation Comments Glucose Lvl (test code = Glucose Lvl) 166 70-99 [facility]2017-01-25 10:45:00 Test Item Value Reference Range Interpretation Comments Creatinine Lvl (test code = Creatinine 0.92 0.50-1.40 Lvl) [facility]2017-01-25 10:45:00 Test Item Value Reference Range Interpretation Comments Creatinine Lvl (test code = Creatinine 0.92 0.50-1.40 Lvl) [facility]2017-01-25 10:45:00 Test Item Value Reference Range Interpretation Comments Sodium Lvl (test code = Sodium Lvl) 140 135-145 [facility]2017-01-25 10:45:00 Test Item Value Reference Range Interpretation Comments Sodium Lvl (test code = Sodium Lvl) 140 135-145 [facility]2017-01-25 10:45:00 Test Item Value Reference Range Interpretation Comments Potassium Lvl (test code = Potassium 4.1 3.5-5.1 Lvl) [facility]2017-01-25 10:45:00 Test Item Value Reference Range Interpretation Comments Potassium Lvl (test code = Potassium 4.1 3.5-5.1 Lvl) [facility]2017-01-25 10:45:00 Test Item Value Reference Range Interpretation Comments Chloride Lvl (test code = Chloride Lvl) 102 95-109 [facility]2017-01-25 10:45:00 Test Item Value Reference Range Interpretation Comments Chloride Lvl (test code = Chloride Lvl) 102 95-109 [facility]2017-01-25 10:45:00 Test Item Value Reference Range Interpretation Comments CO2 (test code = CO2) [facility]2017-01-25 10:45:00 Test Item Value Reference Range Interpretation Comments CO2 (test code = CO2) [facility]2017-01-25 10:45:00 Test Item Value Reference Range Interpretation Comments AGAP (test code = AGAP) 13.1 10.0-20.0 [facility]2017-01-25 10:45:00 Test Item Value Reference Range Interpretation Comments AGAP (test code = AGAP) 13.1 10.0-20.0 [facility]2017-01-25 10:45:00 Test Item Value Reference Range Interpretation Comments Phosphorus (test code = Phosphorus) 3.7 2.5-4.5 [facility]2017-01-25 10:45:00 Test Item Value Reference Range Interpretation Comments Phosphorus (test code = Phosphorus) 3.7 2.5-4.5 [id number] 10:45:00 Test Item Value Reference Range Interpretation Comments Platelet (test code = Platelet) 158 133-450 [id number] 10:45:00 Test Item Value Reference Range Interpretation Comments Platelet (test code = Platelet) 158 133-450 [id number] 10:45:00 Test Item Value Reference Range Interpretation Comments MPV (test code = MPV) 9.1 7.4-10.4 [id number] 10:45:00 Test Item Value Reference Range Interpretation Comments MPV (test code = MPV) 9.1 7.4-10.4 [id number] 10:45:00 Test Item Value Reference Range Interpretation Comments RDW (test code = RDW) 17.0 11.5-14.5 [id number] 10:45:00 Test Item Value Reference Range Interpretation Comments RDW (test code = RDW) 17.0 11.5-14.5 [facility] [id number] 10:45:00 Test Item Value Reference Range Interpretation Comments MCHC (test code = MCHC) 32.1 32.0-36.0 [facility] [id number] 10:45:00 Test Item Value Reference Range Interpretation Comments MCHC (test code = MCHC) 32.1 32.0-36.0 [facility]hamOyhyqcxUCUWWSSGGR4982-31-65 10:45:00 Test Item Value Reference Range Interpretation Comments Hct (test code = Hct) 38.7 42.0-54.0 [facility]hamImeqdvyUIVGYTNRLT8036-49-29 10:45:00 Test Item Value Reference Range Interpretation Comments Hct (test code = Hct) 38.7 42.0-54.0 [facility]hamYhdoemdYWUOFMSILT9850-61-68 10:45:00 Test Item Value Reference Range Interpretation Comments RBC (test code = RBC) 4.60 4.70-6.10 [facility]hamOpxvccaOEXAGLXAFE2263-55-31 10:45:00 Test Item Value Reference Range Interpretation Comments RBC (test code = RBC) 4.60 4.70-6.10 [facility]hamFzisxjrKGWVUSTQPT6872-07-45 10:45:00 Test Item Value Reference Range Interpretation Comments WBC (test code = WBC) 8.0 3.7-10.4 [facility]hamZmxvavkJHLSDXHTKR1663-60-27 10:45:00 Test Item Value Reference Range Interpretation Comments WBC (test code = WBC) 8.0 3.7-10.4 [facility]hamQbdglqfADGUODGMVX8693-36-32 10:45:00 Test Item Value Reference Range Interpretation Comments Hgb (test code = Hgb) 12.4 14.0-18.0 [facility]hamIfvarieNGLUJENNPX2323-22-51 10:45:00 Test Item Value Reference Range Interpretation Comments Hgb (test code = Hgb) 12.4 14.0-18.0 [facility]hamXsydquuWPTSEUYFDM6824-42-05 10:45:00 Test Item Value Reference Range Interpretation Comments MCH (test code = MCH) 27.0 pg 27.0-31.0 [facility]hamZctpflqLNTRHXSOWA9266-87-80 10:45:00 Test Item Value Reference Range Interpretation Comments MCH (test code = MCH) 27.0 pg 27.0-31.0 [facility]hamYsdahbeNFSFBPZSUQ9733-37-24 10:45:00 Test Item Value Reference Range Interpretation Comments MCV (test code = MCV) 84.2 80.0-94.0 [facility]hamBdtvmrnHLCXEHIRGN4154-65-47 10:45:00 Test Item Value Reference Range Interpretation Comments MCV (test code = MCV) 84.2 80.0-94.0 [facility]hamCdbkdsnPONAXMJOJU8069-21-28 10:45:00 Test Item Value Reference Range Interpretation Comments Segs (test code = Segs) 70.2 45.0-75.0 [facility]hamNyxsmspHEZPWSJAYK7291-94-22 10:45:00 Test Item Value Reference Range Interpretation Comments Segs (test code = Segs) 70.2 45.0-75.0 [facility]hamGffgqvoVBQLFDZESL1420-35-55 10:45:00 Test Item Value Reference Range Interpretation Comments Eosinophils # (test code 0.3 See_Comment [A utomated message] The = Eosinophils #) system [facility] generated this result tra nsmitted reference range : <=0.5. The reference r delaney was not used to int erpret this result as normal/abnormal . [facility]hamCtkylkhHSUQSZWOII3831-12-01 10:45:00 Test Item Value Reference Range Interpretation Comments Eosinophils # (test code 0.3 See_Comment [A utomated message] The = Eosinophils #) system [facility] generated this result tra nsmitted reference range : <=0.5. The reference r delaney was not used to int erpret this result as normal/abnormal . [facility]hamMzxbtnsJSPWZIEAZF4319-37-68 10:45:00 Test Item Value Reference Range Interpretation Comments Monocytes # (test code 0.5 See_Comment [Aut omated message] The = Monocytes #) system which generated this result tra nsmitted reference range : <=0.8. The reference r delaney was not used to int erpret this result as normal/abnormal . [facility]hamIskueikCZWYNIURPZ4923-63-49 10:45:00 Test Item Value Reference Range Interpretation Comments Monocytes (test code = Monocytes) 6.5 2.0-12.0 [facility]hamHyquchuQQYKHKWGLN4492-84-75 10:45:00 Test Item Value Reference Range Interpretation Comments Monocytes # (test code 0.5 See_Comment [Aut omated message] The = Monocytes #) system which generated this result tra nsmitted reference range : <=0.8. The reference r delaney was not used to int erpret this result as normal/abnormal . [facility]hamRbvnugfQLQQCBIBGF3985-60-78 10:45:00 Test Item Value Reference Range Interpretation Comments Basophils (test code = 0.3 See_Comment [Aut omated message] The Basophils) system which ge nerated this result tra nsmitted reference range : <=1.0. The reference r delaney was not used to int erpret this result as normal/abnormal . [facility]hamVhmylipEBJSWHKXVH6102-39-73 10:45:00 Test Item Value Reference Range Interpretation Comments Monocytes (test code = Monocytes) 6.5 2.0-12.0 [facility]hamYgrzwquPFGULYRJZU7715-23-59 10:45:00 Test Item Value Reference Range Interpretation Comments Segs-Bands # (test code = Segs-Bands #) 5.6 1.5-8.1 [facility]hamObfwkkiMZFJDSEDLP1843-91-08 10:45:00 Test Item Value Reference Range Interpretation Comments Basophils (test code = 0.3 See_Comment [Aut omated message] The Basophils) system which ge nerated this result tra nsmitted reference range : <=1.0. The reference r delaney was not used to int erpret this result as normal/abnormal . [facility]hamRxeyvryOXHNFSOQKD6363-97-48 10:45:00 Test Item Value Reference Range Interpretation Comments Eosinophils (test code = 3.4 See_Comment [A utomated message] The Eosinophils) system which ge nerated this result tra nsmitted reference range : <=4.0. The reference r delaney was not used to int erpret this result as normal/abnormal . [facility]hamChrmmgpAIJCYDYJWZ6587-06-23 10:45:00 Test Item Value Reference Range Interpretation Comments Segs-Bands # (test code = Segs-Bands #) 5.6 1.5-8.1 [facility]hamAiruzljLAUAYJHPOX6077-98-15 10:45:00 Test Item Value Reference Range Interpretation Comments Lymphocytes # (test code = Lymphocytes 1.6 1.0-5.5 #) [facility]hamTlygzxvSZEGWMOOUD6674-34-89 10:45:00 Test Item Value Reference Range Interpretation Comments Eosinophils (test code = 3.4 See_Comment [A utomated message] The Eosinophils) system which ge nerated this result tra nsmitted reference range : <=4.0. The reference r delaney was not used to int erpret this result as normal/abnormal . [facility]hamIvkjunhXQGCIIKPKR9192-56-10 10:45:00 Test Item Value Reference Range Interpretation Comments Lymphocytes (test code = Lymphocytes) 19.6 20.0-40.0 [facility]hamLiylsefTGVUJBHCBH0650-54-13 10:45:00 Test Item Value Reference Range Interpretation Comments Lymphocytes # (test code = Lymphocytes 1.6 1.0-5.5 #) [facility]hamYeaeinkCHZSAUPWSY2127-38-13 10:45:00 Test Item Value Reference Range Interpretation Comments Lymphocytes (test code = Lymphocytes) 19.6 20.0-40.0 [facility]2017-01-25 10:45:00 Test Item Value Reference Range Interpretation Comments Magnesium Lvl (test code = Magnesium 1.9 1.8-2.4 Lvl) [facility]2017-01-25 10:45:00 Test Item Value Reference Range Interpretation Comments Calcium Lvl (test code = Calcium Lvl) 9.2 8.5-10.5 [facility]2017-01-25 10:45:00 Test Item Value Reference Range Interpretation Comments eGFR (test code = eGFR) 85 [facility]2017-01-25 10:45:00 Test Item Value Reference Range Interpretation Comments BUN (test code = BUN) 14 7-22 [facility]2017-01-25 10:45:00 Test Item Value Reference Range Interpretation Comments Glucose Lvl (test code = Glucose Lvl) 166 70-99 [facility]2017-01-25 10:45:00 Test Item Value Reference Range Interpretation Comments Creatinine Lvl (test code = Creatinine 0.92 0.50-1.40 Lvl) [facility]2017-01-25 10:45:00 Test Item Value Reference Range Interpretation Comments Sodium Lvl (test code = Sodium Lvl) 140 135-145 [facility]2017-01-25 10:45:00 Test Item Value Reference Range Interpretation Comments Potassium Lvl (test code = Potassium 4.1 3.5-5.1 Lvl) [facility]2017-01-25 10:45:00 Test Item Value Reference Range Interpretation Comments Chloride Lvl (test code = Chloride Lvl) 102 95-109 [facility]2017-01-25 10:45:00 Test Item Value Reference Range Interpretation Comments CO2 (test code = CO2) 29 24-32 [facility]2017-01-25 10:45:00 Test Item Value Reference Range Interpretation Comments AGAP (test code = AGAP) 13.1 10.0-20.0 [facility]2017-01-25 10:45:00 Test Item Value Reference Range Interpretation Comments Phosphorus (test code = Phosphorus) 3.7 2.5-4.5 [facility]bdx[facility]rxRZKZLRSRPT0950-32-22 10:45:00 Test Item Value Reference Range Interpretation Comments Platelet (test code = Platelet) 158 133-450 [facility]hamXfclraaKNBAEVMRIX6548-48-13 10:45:00 Test Item Value Reference Range Interpretation Comments MPV (test code = MPV) 9.1 7.4-10.4 [facility]hamDxmxufsKVKOJODYEK8091-72-51 10:45:00 Test Item Value Reference Range Interpretation Comments RDW (test code = RDW) 17.0 11.5-14.5 [facility]hamPdijuahUOVPBZKCWY0852-33-77 10:45:00 Test Item Value Reference Range Interpretation Comments MCHC (test code = MCHC) 32.1 32.0-36.0 [facility]hamIecwnbiMRPWTKDVUJ8943-66-16 10:45:00 Test Item Value Reference Range Interpretation Comments Hct (test code = Hct) 38.7 42.0-54.0 [facility]hamDpgwnejRJVLYJTRWQ3735-77-83 10:45:00 Test Item Value Reference Range Interpretation Comments RBC (test code = RBC) 4.60 4.70-6.10 [facility]hamRhedoyaUFERFTTYXW6317-31-03 10:45:00 Test Item Value Reference Range Interpretation Comments WBC (test code = WBC) 8.0 3.7-10.4 [facility]hamNjyjgzfCGGWXRLEHP7192-74-93 10:45:00 Test Item Value Reference Range Interpretation Comments Hgb (test code = Hgb) 12.4 14.0-18.0 [facility]hamGlbhswbYWVKTDDMSH7656-00-74 10:45:00 Test Item Value Reference Range Interpretation Comments MCH (test code = MCH) 27.0 pg 27.0-31.0 [facility]hamZjpvkjbIPCJCRYYTH0267-24-53 10:45:00 Test Item Value Reference Range Interpretation Comments MCV (test code = MCV) 84.2 80.0-94.0 [facility]hamJiabaqnJTMKIYGMIX5741-87-04 10:45:00 Test Item Value Reference Range Interpretation Comments Segs (test code = Segs) 70.2 45.0-75.0 [facility]hamWlpqpjiPUJWCLLTXM2674-01-12 10:45:00 Test Item Value Reference Range Interpretation Comments Eosinophils # (test code 0.3 See_Comment [A utomated message] The = Eosinophils #) system whic h generated this result tra nsmitted reference range : <=0.5. The reference r delaney was not used to int erpret this result as normal/abnormal . [facility]hamQrkwirbKIYHJGPARZ3518-16-35 10:45:00 Test Item Value Reference Range Interpretation Comments Monocytes # (test code 0.5 See_Comment [Aut omated message] The = Monocytes #) system which generated this result tra nsmitted reference range : <=0.8. The reference r delaney was not used to int erpret this result as normal/abnormal . [facility]hamLewcxekHIZHNJGCBR4476-00-67 10:45:00 Test Item Value Reference Range Interpretation Comments Monocytes (test code = Monocytes) 6.5 2.0-12.0 [facility]hamPrpfjyvYFCRTTLJXD1522-48-30 10:45:00 Test Item Value Reference Range Interpretation Comments Basophils (test code = 0.3 See_Comment [Aut omated message] The Basophils) system which ge nerated this result tra nsmitted reference range : <=1.0. The reference r delaney was not used to int erpret this result as normal/abnormal . [facility]hamYqqudggLXJELQVVBW4785-71-14 10:45:00 Test Item Value Reference Range Interpretation Comments Segs-Bands # (test code = Segs-Bands #) 5.6 1.5-8.1 [facility]hamFzoigybFCEBMBOHZE9147-96-25 10:45:00 Test Item Value Reference Range Interpretation Comments Eosinophils (test code = 3.4 See_Comment [A utomated message] The Eosinophils) system which ge nerated this result tra nsmitted reference range : <=4.0. The reference r delaney was not used to int erpret this result as normal/abnormal . [facility]hamVtzuitiEIWCZQZWNL4844-38-11 10:45:00 Test Item Value Reference Range Interpretation Comments Lymphocytes # (test code = Lymphocytes 1.6 1.0-5.5 #) [facility]hamZrbqrxfAQQVPSTVUO0249-02-02 10:45:00 Test Item Value Reference Range Interpretation Comments Lymphocytes (test code = Lymphocytes) 19.6 20.0-40.0 [facility]2017-01-25 10:45:00 Test Item Value Reference Range Interpretation Comments Magnesium Lvl (test code = Magnesium 1.9 1.8-2.4 Lvl) [facility]2017-01-25 10:45:00 Test Item Value Reference Range Interpretation Comments Calcium Lvl (test code = Calcium Lvl) 9.2 8.5-10.5 [facility]2017-01-25 10:45:00 Test Item Value Reference Range Interpretation Comments eGFR (test code = eGFR) 85 [facility]2017-01-25 10:45:00 Test Item Value Reference Range Interpretation Comments BUN (test code = BUN) 14 7-22 [facility]2017-01-25 10:45:00 Test Item Value Reference Range Interpretation Comments Glucose Lvl (test code = Glucose Lvl) 166 70-99 [facility]2017-01-25 10:45:00 Test Item Value Reference Range Interpretation Comments Creatinine Lvl (test code = Creatinine 0.92 0.50-1.40 Lvl) [facility]2017-01-25 10:45:00 Test Item Value Reference Range Interpretation Comments Sodium Lvl (test code = Sodium Lvl) 140 135-145 [facility]2017-01-25 10:45:00 Test Item Value Reference Range Interpretation Comments Potassium Lvl (test code = Potassium 4.1 3.5-5.1 Lvl) [facility]2017-01-25 10:45:00 Test Item Value Reference Range Interpretation Comments Chloride Lvl (test code = Chloride Lvl) 102 95-109 [facility]2017-01-25 10:45:00 Test Item Value Reference Range Interpretation Comments CO2 (test code = CO2) 29 24-32 [facility]2017-01-25 10:45:00 Test Item Value Reference Range Interpretation Comments AGAP (test code = AGAP) 13.1 10.0-20.0 [facility]2017-01-25 10:45:00 Test Item Value Reference Range Interpretation Comments Phosphorus (test code = Phosphorus) 3.7 2.5-4.5 [facility]hamQddznzkTZEZYOESEC1029-58-74 10:45:00 Test Item Value Reference Range Interpretation Comments Platelet (test code = Platelet) 158 133-450 [facility]hamNcbuqysFROAJQJWWM4229-53-94 10:45:00 Test Item Value Reference Range Interpretation Comments MPV (test code = MPV) 9.1 7.4-10.4 [facility]hamNlwxsbpZBVWWTQFXX9735-42-47 10:45:00 Test Item Value Reference Range Interpretation Comments RDW (test code = RDW) 17.0 11.5-14.5 [facility]hamGuzjgqyEXVJHJZLVW8993-42-17 10:45:00 Test Item Value Reference Range Interpretation Comments MCHC (test code = MCHC) 32.1 32.0-36.0 [facility] BrenhamZaogrdyOITYNOPJAK3677-89-44 10:45:00 Test Item Value Reference Range Interpretation Comments Hct (test code = Hct) 38.7 42.0-54.0 [facility]hamAdxcjirOLGQOQFIWZ1549-74-85 10:45:00 Test Item Value Reference Range Interpretation Comments RBC (test code = RBC) 4.60 4.70-6.10 [facility]hamWseeaypDODZBPTOJK2695-62-25 10:45:00 Test Item Value Reference Range Interpretation Comments WBC (test code = WBC) 8.0 3.7-10.4 [facility]hamIbjgqgtCGSRVHTEXC2370-55-61 10:45:00 Test Item Value Reference Range Interpretation Comments Hgb (test code = Hgb) 12.4 14.0-18.0 [facility]hamVzbvvdeDDLNJPHHII5741-48-77 10:45:00 Test Item Value Reference Range Interpretation Comments MCH (test code = MCH) 27.0 pg 27.0-31.0 [facility]hamFflygjyOTQVRSIYIF8470-59-00 10:45:00 Test Item Value Reference Range Interpretation Comments MCV (test code = MCV) 84.2 80.0-94.0 [facility]hamXnpbfseXRTAFQJCXQ5673-62-75 10:45:00 Test Item Value Reference Range Interpretation Comments Segs (test code = Segs) 70.2 45.0-75.0 [facility]hamEqxwvjeLDNLZOKWJZ9038-75-66 10:45:00 Test Item Value Reference Range Interpretation Comments Eosinophils # (test code 0.3 See_Comment [A utomated message] The = Eosinophils #) system whic h generated this result tra nsmitted reference range : <=0.5. The reference r delaney was not used to int erpret this result as normal/abnormal . [facility]hamPwekspgYKCTVELDVR1018-18-72 10:45:00 Test Item Value Reference Range Interpretation Comments Monocytes # (test code 0.5 See_Comment [Aut omated message] The = Monocytes #) system which generated this result tra nsmitted reference range : <=0.8. The reference r delaney was not used to int erpret this result as normal/abnormal . [facility]hamAwxjgkxTZHIOGHUVH6057-15-86 10:45:00 Test Item Value Reference Range Interpretation Comments Monocytes (test code = Monocytes) 6.5 2.0-12.0 [facility]hamFxfqbosHMJQLLMBDY1262-94-09 10:45:00 Test Item Value Reference Range Interpretation Comments Basophils (test code = 0.3 See_Comment [Aut omated message] The Basophils) system which ge nerated this result tra nsmitted reference range : <=1.0. The reference r delaney was not used to int erpret this result as normal/abnormal . [facility]hamRugtgmgOVQRIYFTEU9992-54-82 10:45:00 Test Item Value Reference Range Interpretation Comments Segs-Bands # (test code = Segs-Bands #) 5.6 1.5-8.1 [facility]hamJtbsjohLVHMHJMNFI8691-31-31 10:45:00 Test Item Value Reference Range Interpretation Comments Eosinophils (test code = 3.4 See_Comment [A utomated message] The Eosinophils) system which ge nerated this result tra nsmitted reference range : <=4.0. The reference r delaney was not used to int erpret this result as normal/abnormal . [facility]hamSsipzvgVGVSOEAEHR6671-09-75 10:45:00 Test Item Value Reference Range Interpretation Comments Lymphocytes # (test code = Lymphocytes 1.6 1.0-5.5 #) [facility]hamAezwerlQAZSHVTBJP1854-94-76 10:45:00 Test Item Value Reference Range Interpretation Comments Lymphocytes (test code = Lymphocytes) 19.6 20.0-40.0 [facility]2017-01-25 10:45:00 Test Item Value Reference Range Interpretation Comments Magnesium Lvl (test code = Magnesium 1.9 1.8-2.4 Lvl) [facility]2017-01-25 10:45:00 Test Item Value Reference Range Interpretation Comments Calcium Lvl (test code = Calcium Lvl) 9.2 8.5-10.5 [facility]2017-01-25 10:45:00 Test Item Value Reference Range Interpretation Comments eGFR (test code = eGFR) 85 [facility]2017-01-25 10:45:00 Test Item Value Reference Range Interpretation Comments BUN (test code = BUN) 14 7-22 [facility]2017-01-25 10:45:00 Test Item Value Reference Range Interpretation Comments Glucose Lvl (test code = Glucose Lvl) 166 70-99 [facility]2017-01-25 10:45:00 Test Item Value Reference Range Interpretation Comments Creatinine Lvl (test code = Creatinine 0.92 0.50-1.40 Lvl) [facility]2017-01-25 10:45:00 Test Item Value Reference Range Interpretation Comments Sodium Lvl (test code = Sodium Lvl) 140 135-145 [facility]2017-01-25 10:45:00 Test Item Value Reference Range Interpretation Comments Potassium Lvl (test code = Potassium 4.1 3.5-5.1 Lvl) [facility]2017-01-25 10:45:00 Test Item Value Reference Range Interpretation Comments Chloride Lvl (test code = Chloride Lvl) 102 95-109 [facility]2017-01-25 10:45:00 Test Item Value Reference Range Interpretation Comments CO2 (test code = CO2) 29 24-32 [facility]2017-01-25 10:45:00 Test Item Value Reference Range Interpretation Comments AGAP (test code = AGAP) 13.1 10.0-20.0 [facility]2017-01-25 10:45:00 Test Item Value Reference Range Interpretation Comments Phosphorus (test code = Phosphorus) 3.7 2.5-4.5 [facility]hamYabkmquWKUYXNCMWD4784-46-66 10:45:00 Test Item Value Reference Range Interpretation Comments Platelet (test code = Platelet) 158 133-450 [facility]hamDjgpyckMTDQSBTEOJ6616-91-52 10:45:00 Test Item Value Reference Range Interpretation Comments MPV (test code = MPV) 9.1 7.4-10.4 [facility]hamWqdstekMIBJQUMFET1511-92-57 10:45:00 Test Item Value Reference Range Interpretation Comments RDW (test code = RDW) 17.0 11.5-14.5 [facility]hamXnctjlgNRBOKULDXX6489-98-27 10:45:00 Test Item Value Reference Range Interpretation Comments MCHC (test code = MCHC) 32.1 32.0-36.0 [facility] BrenhamZxwirkgQZCHRFSTFU5888-54-16 10:45:00 Test Item Value Reference Range Interpretation Comments Hct (test code = Hct) 38.7 42.0-54.0 [facility]hamEjynpelQFYIGTHQTH9961-18-67 10:45:00 Test Item Value Reference Range Interpretation Comments RBC (test code = RBC) 4.60 4.70-6.10 [facility]hamJkpmrzmCHYVFDLQOP3944-51-16 10:45:00 Test Item Value Reference Range Interpretation Comments WBC (test code = WBC) 8.0 3.7-10.4 [facility]hamFvdkremXKTSTULBNO2803-60-28 10:45:00 Test Item Value Reference Range Interpretation Comments Hgb (test code = Hgb) 12.4 14.0-18.0 [facility]hamXchwyvcMRUTTHJZMC3295-28-18 10:45:00 Test Item Value Reference Range Interpretation Comments MCH (test code = MCH) 27.0 pg 27.0-31.0 [facility]hamTlvajfqSNZNCPIDYQ4164-50-34 10:45:00 Test Item Value Reference Range Interpretation Comments MCV (test code = MCV) 84.2 80.0-94.0 [facility]hamNkkiykmDFGZDNFTEN7795-30-54 10:45:00 Test Item Value Reference Range Interpretation Comments Segs (test code = Segs) 70.2 45.0-75.0 [facility]hamGxkncajAWOAPDPRWN0144-05-04 10:45:00 Test Item Value Reference Range Interpretation Comments Eosinophils # (test code 0.3 See_Comment [A utomated message] The = Eosinophils #) system whic h generated this result tra nsmitted reference range : <=0.5. The reference r delaney was not used to int erpret this result as normal/abnormal . [facility]hamNzmjmloHHSHDIAMPF7372-77-39 10:45:00 Test Item Value Reference Range Interpretation Comments Monocytes # (test code 0.5 See_Comment [Aut omated message] The = Monocytes #) system which generated this result tra nsmitted reference range : <=0.8. The reference r delaney was not used to int erpret this result as normal/abnormal . [facility] BrenhamLnsruklDUMCKHQDSF4008-23-73 10:45:00 Test Item Value Reference Range Interpretation Comments Monocytes (test code = Monocytes) 6.5 2.0-12.0 [facility]hamRemlqiaDJLTXETHHL2385-96-34 10:45:00 Test Item Value Reference Range Interpretation Comments Basophils (test code = 0.3 See_Comment [Aut omated message] The Basophils) system which ge nerated this result tra nsmitted reference range : <=1.0. The reference r delaney was not used to int erpret this result as normal/abnormal . [facility] BrenhamEylregzMEJTGLDHIA4956-91-98 10:45:00 Test Item Value Reference Range Interpretation Comments Segs-Bands # (test code = Segs-Bands #) 5.6 1.5-8.1 [id number] 10:45:00 Test Item Value Reference Range Interpretation Comments Eosinophils (test code = 3.4 See_Comment [A utomated message] The Eosinophils) system which ge nerated this result tra nsmitted reference range : <=4.0. The reference r delaney was not used to int erpret this result as normal/abnormal . [id number] 10:45:00 Test Item Value Reference Range Interpretation Comments Lymphocytes # (test code = Lymphocytes 1.6 1.0-5.5 #) [facility]hamVyxatmrMUFSXBKQFD6008-65-93 10:45:00 Test Item Value Reference Range Interpretation Comments Lymphocytes (test code = Lymphocytes) 19.6 20.0-40.0 [facility]2017-01-25 10:45:00 Test Item Value Reference Range Interpretation Comments Magnesium Lvl (test code = Magnesium 1.9 1.8-2.4 Lvl) [facility]2017-01-25 10:45:00 Test Item Value Reference Range Interpretation Comments Calcium Lvl (test code = Calcium Lvl) 9.2 8.5-10.5 [facility]2017-01-24 16:29:00 Test Item Value Reference Range Interpretation Comments eGFR (test code = eGFR) 74 [facility]2017-01-24 16:29:00 Test Item Value Reference Range Interpretation Comments Creatinine Lvl (test code = Creatinine 1.03 0.50-1.40 Lvl) [facility]2017-01-24 16:29:00 Test Item Value Reference Range Interpretation Comments Sodium Lvl (test code = Sodium Lvl) 139 135-145 [facility]2017-01-24 16:29:00 Test Item Value Reference Range Interpretation Comments eGFR (test code = eGFR) 74 [facility]2017-01-24 16:29:00 Test Item Value Reference Range Interpretation Comments Creatinine Lvl (test code = Creatinine 1.03 0.50-1.40 Lvl) [facility]2017-01-24 16:29:00 Test Item Value Reference Range Interpretation Comments Sodium Lvl (test code = Sodium Lvl) 139 135-145 [facility]2017-01-24 16:29:00 Test Item Value Reference Range Interpretation Comments Potassium Lvl (test code = Potassium 4.3 3.5-5.1 Lvl) [facility]2017-01-24 16:29:00 Test Item Value Reference Range Interpretation Comments Chloride Lvl (test code = Chloride Lvl) 103 95-109 [facility]2017-01-24 16:29:00 Test Item Value Reference Range Interpretation Comments CO2 (test code = CO2) [facility]2017-01-24 16:29:00 Test Item Value Reference Range Interpretation Comments Calcium Lvl (test code = Calcium Lvl) 8.6 8.5-10.5 [facility]2017-01-24 16:29:00 Test Item Value Reference Range Interpretation Comments Potassium Lvl (test code = Potassium 4.3 3.5-5.1 Lvl) [facility]2017-01-24 16:29:00 Test Item Value Reference Range Interpretation Comments BUN (test code = BUN) 17 7-22 [facility]2017-01-24 16:29:00 Test Item Value Reference Range Interpretation Comments Glucose Lvl (test code = Glucose Lvl) 226 70-99 [facility]2017-01-24 16:29:00 Test Item Value Reference Range Interpretation Comments AGAP (test code = AGAP) 11.3 10.0-20.0 [facility]2017-01-24 16:29:00 Test Item Value Reference Range Interpretation Comments Chloride Lvl (test code = Chloride Lvl) 103 95-109 [facility]2017-01-24 16:29:00 Test Item Value Reference Range Interpretation Comments CO2 (test code = CO2) [facility]2017-01-24 16:29:00 Test Item Value Reference Range Interpretation Comments Calcium Lvl (test code = Calcium Lvl) 8.6 8.5-10.5 [facility]2017-01-24 16:29:00 Test Item Value Reference Range Interpretation Comments BUN (test code = BUN) 17 - [facility]2017-01-24 16:29:00 Test Item Value Reference Range Interpretation Comments Glucose Lvl (test code = Glucose Lvl) 226 70-99 [facility]2017-01-24 16:29:00 Test Item Value Reference Range Interpretation Comments AGAP (test code = AGAP) 11.3 10.0-20.0 [facility]2017-01-24 16:29:00 Test Item Value Reference Range Interpretation Comments eGFR (test code = eGFR) 74 [facility]2017-01-24 16:29:00 Test Item Value Reference Range Interpretation Comments Creatinine Lvl (test code = Creatinine 1.03 0.50-1.40 Lvl) [facility]2017-01-24 16:29:00 Test Item Value Reference Range Interpretation Comments Sodium Lvl (test code = Sodium Lvl) 139 135-145 [facility]2017-01-24 16:29:00 Test Item Value Reference Range Interpretation Comments Potassium Lvl (test code = Potassium 4.3 3.5-5.1 Lvl) [facility]2017-01-24 16:29:00 Test Item Value Reference Range Interpretation Comments Chloride Lvl (test code = Chloride Lvl) 103 95-109 [facility]2017-01-24 16:29:00 Test Item Value Reference Range Interpretation Comments CO2 (test code = CO2) 29 24-32 [facility]2017-01-24 16:29:00 Test Item Value Reference Range Interpretation Comments Calcium Lvl (test code = Calcium Lvl) 8.6 8.5-10.5 [facility]2017-01-24 16:29:00 Test Item Value Reference Range Interpretation Comments BUN (test code = BUN) 17 - [facility]2017-01-24 16:29:00 Test Item Value Reference Range Interpretation Comments Glucose Lvl (test code = Glucose Lvl) 226 70-99 [facility]2017-01-24 16:29:00 Test Item Value Reference Range Interpretation Comments AGAP (test code = AGAP) 11.3 10.0-20.0 [facility]2017-01-24 16:29:00 Test Item Value Reference Range Interpretation Comments eGFR (test code = eGFR) 74 [facility]2017-01-24 16:29:00 Test Item Value Reference Range Interpretation Comments Creatinine Lvl (test code = Creatinine 1.03 0.50-1.40 Lvl) [facility]2017-01-24 16:29:00 Test Item Value Reference Range Interpretation Comments Sodium Lvl (test code = Sodium Lvl) 139 135-145 [facility]2017-01-24 16:29:00 Test Item Value Reference Range Interpretation Comments Potassium Lvl (test code = Potassium 4.3 3.5-5.1 Lvl) [facility]2017-01-24 16:29:00 Test Item Value Reference Range Interpretation Comments Chloride Lvl (test code = Chloride Lvl) 103 95-109 [facility]2017-01-24 16:29:00 Test Item Value Reference Range Interpretation Comments CO2 (test code = CO2) 29 24-32 [facility]2017-01-24 16:29:00 Test Item Value Reference Range Interpretation Comments Calcium Lvl (test code = Calcium Lvl) 8.6 8.5-10.5 [facility]2017-01-24 16:29:00 Test Item Value Reference Range Interpretation Comments BUN (test code = BUN) 17 7-22 [facility]2017-01-24 16:29:00 Test Item Value Reference Range Interpretation Comments Glucose Lvl (test code = Glucose Lvl) 226 70-99 [facility]2017-01-24 16:29:00 Test Item Value Reference Range Interpretation Comments AGAP (test code = AGAP) 11.3 10.0-20.0 [facility]2017-01-24 16:29:00 Test Item Value Reference Range Interpretation Comments eGFR (test code = eGFR) 74 [facility]2017-01-24 16:29:00 Test Item Value Reference Range Interpretation Comments Creatinine Lvl (test code = Creatinine 1.03 0.50-1.40 Lvl) [facility]2017-01-24 16:29:00 Test Item Value Reference Range Interpretation Comments eGFR (test code = eGFR) 74 [facility]2017-01-24 16:29:00 Test Item Value Reference Range Interpretation Comments Sodium Lvl (test code = Sodium Lvl) 139 135-145 [facility]2017-01-24 16:29:00 Test Item Value Reference Range Interpretation Comments Creatinine Lvl (test code = Creatinine 1.03 0.50-1.40 Lvl) [facility]2017-01-24 16:29:00 Test Item Value Reference Range Interpretation Comments Potassium Lvl (test code = Potassium 4.3 3.5-5.1 Lvl) [facility]2017-01-24 16:29:00 Test Item Value Reference Range Interpretation Comments Chloride Lvl (test code = Chloride Lvl) 103 95-109 [facility]2017-01-24 16:29:00 Test Item Value Reference Range Interpretation Comments Sodium Lvl (test code = Sodium Lvl) 139 135-145 [facility]2017-01-24 16:29:00 Test Item Value Reference Range Interpretation Comments CO2 (test code = CO2) [facility]2017-01-24 16:29:00 Test Item Value Reference Range Interpretation Comments Potassium Lvl (test code = Potassium 4.3 3.5-5.1 Lvl) [facility]2017-01-24 16:29:00 Test Item Value Reference Range Interpretation Comments Calcium Lvl (test code = Calcium Lvl) 8.6 8.5-10.5 [facility]2017-01-24 16:29:00 Test Item Value Reference Range Interpretation Comments Chloride Lvl (test code = Chloride Lvl) 103 95-109 [facility]2017-01-24 16:29:00 Test Item Value Reference Range Interpretation Comments BUN (test code = BUN) 02-12 [facility]2017-01-24 16:29:00 Test Item Value Reference Range Interpretation Comments CO2 (test code = CO2) [facility]2017-01-24 16:29:00 Test Item Value Reference Range Interpretation Comments Glucose Lvl (test code = Glucose Lvl) 226 70-99 [facility]2017-01-24 16:29:00 Test Item Value Reference Range Interpretation Comments Calcium Lvl (test code = Calcium Lvl) 8.6 8.5-10.5 [facility]2017-01-24 16:29:00 Test Item Value Reference Range Interpretation Comments AGAP (test code = AGAP) 11.3 10.0-20.0 [facility]2017-01-24 16:29:00 Test Item Value Reference Range Interpretation Comments BUN (test code = BUN) 17 7-22 [facility]2017-01-24 16:29:00 Test Item Value Reference Range Interpretation Comments Glucose Lvl (test code = Glucose Lvl) 226 70-99 [facility]2017-01-24 16:29:00 Test Item Value Reference Range Interpretation Comments AGAP (test code = AGAP) 11.3 10.0-20.0 [facility]2017-01-24 10:01:00 Test Item Value Reference Range Interpretation Comments Phosphorus (test code = Phosphorus) 4.2 2.5-4.5 [facility]2017-01-24 10:01:00 Test Item Value Reference Range Interpretation Comments Globulin (test code = Globulin) 3.6 2.7-4.2 [facility]2017-01-24 10:01:00 Test Item Value Reference Range Interpretation Comments AGAP (test code = AGAP) 10.8 10.0-20.0 [facility]2017-01-24 10:01:00 Test Item Value Reference Range Interpretation Comments B/C Ratio (test code = B/C Ratio) 17 6-25 [facility]2017-01-24 10:01:00 Test Item Value Reference Range Interpretation Comments A/G Ratio (test code = A/G Ratio) 0.8 0.7-1.6 [facility]2017-01-24 10:01:00 Test Item Value Reference Range Interpretation Comments eGFR (test code = eGFR) 69 [facility]2017-01-24 10:01:00 Test Item Value Reference Range Interpretation Comments Creatinine Lvl (test code = Creatinine 1.09 0.50-1.40 Lvl) [facility]2017-01-24 10:01:00 Test Item Value Reference Range Interpretation Comments Sodium Lvl (test code = Sodium Lvl) 138 135-145 [facility]2017-01-24 10:01:00 Test Item Value Reference Range Interpretation Comments BUN (test code = BUN) 19 7-22 [facility]2017-01-24 10:01:00 Test Item Value Reference Range Interpretation Comments Alk Phos (test code = Alk Phos) 82 39-136 [facility]2017-01-24 10:01:00 Test Item Value Reference Range Interpretation Comments Bili Total (test code = Bili Total) 0.4 0.2-1.3 [facility]2017-01-24 10:01:00 Test Item Value Reference Range Interpretation Comments AST (test code = AST) 16 See_Comment [Auto mated message] The system which ge nerated this result transmit óscar reference range : <=37. The reference range was not used to interpr et this result as kristine l/abnormal. [facility]2017-01-24 10:01:00 Test Item Value Reference Range Interpretation Comments Total Protein (test code = Total 6.5 6.4-8.4 Protein) [facility]2017-01-24 10:01:00 Test Item Value Reference Range Interpretation Comments Calcium Lvl (test code = Calcium Lvl) 8.6 8.5-10.5 [facility]2017-01-24 10:01:00 Test Item Value Reference Range Interpretation Comments Potassium Lvl (test code = Potassium 4.8 3.5-5.1 Lvl) [facility]2017-01-24 10:01:00 Test Item Value Reference Range Interpretation Comments Chloride Lvl (test code = Chloride Lvl) 104 95-109 [facility]2017-01-24 10:01:00 Test Item Value Reference Range Interpretation Comments CO2 (test code = CO2) 28 24-32 [facility]2017-01-24 10:01:00 Test Item Value Reference Range Interpretation Comments Albumin Lvl (test code = Albumin Lvl) 2.9 3.5-5.0 [facility]2017-01-24 10:01:00 Test Item Value Reference Range Interpretation Comments ALT (test code = ALT) 12 See_Comment [Auto mated message] The system which ge nerated this result transmit óscar reference range : <=65. The reference range was not used to interpr et this result as kristine l/abnormal. [facility]2017-01-24 10:01:00 Test Item Value Reference Range Interpretation Comments Glucose Lvl (test code = Glucose Lvl) 220 70-99 [facility]2017-01-24 10:01:00 Test Item Value Reference Range Interpretation Comments Magnesium Lvl (test code = Magnesium 1.9 1.8-2.4 Lvl) [facility]hamVvaappkQIAFOKOATV2475-22-02 10:01:00 Test Item Value Reference Range Interpretation Comments INR (test code = INR) 1.18 0.85-1.17 [facility]hamHtpyuzvYVTPLCMBSS6902-02-20 10:01:00 Test Item Value Reference Range Interpretation Comments PT (test code = PT) 15.3 s 12.0-14.7 [facility]hamQqgwzjaSYRTHBDYNI1861-41-88 10:01:00 Test Item Value Reference Range Interpretation Comments PTT (test code = PTT) 66.0 s 22.9-35.8 [facility]hamTfnjzsrFDGYFSMAHO2490-92-40 10:01:00 Test Item Value Reference Range Interpretation Comments Platelet (test code = Platelet) 141 133-450 [facility]hamCppbibxNIMVQONEWC3401-47-33 10:01:00 Test Item Value Reference Range Interpretation Comments MPV (test code = MPV) 8.5 7.4-10.4 [facility]hamCppxhknQCLORMIFXH0948-17-28 10:01:00 Test Item Value Reference Range Interpretation Comments RBC (test code = RBC) 4.14 4.70-6.10 [facility]hamPusgtmdVCREYKRSFA0757-62-28 10:01:00 Test Item Value Reference Range Interpretation Comments Hct (test code = Hct) 34.6 42.0-54.0 [facility] BrenhamTtaksziIGVYJZOICH7741-09-86 10:01:00 Test Item Value Reference Range Interpretation Comments WBC (test code = WBC) 6.9 3.7-10.4 [facility] BrenhamWgozluyYIDSIQLINZ8005-52-02 10:01:00 Test Item Value Reference Range Interpretation Comments MCV (test code = MCV) 83.7 80.0-94.0 [facility]hamOvgcsfyBTGSXZWRON5397-95-70 10:01:00 Test Item Value Reference Range Interpretation Comments RDW (test code = RDW) 17.4 11.5-14.5 [facility] BrenhamZbxbrfoOFYRGCLXRE1216-94-67 10:01:00 Test Item Value Reference Range Interpretation Comments MCHC (test code = MCHC) 33.0 32.0-36.0 [facility]hamPplmsmkIAOBFHHAZE1136-59-67 10:01:00 Test Item Value Reference Range Interpretation Comments Hgb (test code = Hgb) 11.4 14.0-18.0 [facility]hamXntnxhlRQTYYVIBBI5465-97-93 10:01:00 Test Item Value Reference Range Interpretation Comments MCH (test code = MCH) 27.7 pg 27.0-31.0 [facility]hamAjilmcaHVIWOGYXPP5514-11-65 10:01:00 Test Item Value Reference Range Interpretation Comments Monocytes # (test code 0.5 See_Comment [Aut omated message] The = Monocytes #) system which generated this result tra nsmitted reference range : <=0.8. The reference r delaney was not used to int erpret this result as normal/abnormal . [facility]hamQnrvjhqXDCZYJXGRD8464-15-24 10:01:00 Test Item Value Reference Range Interpretation Comments Lymphocytes # (test code = Lymphocytes 2.1 1.0-5.5 #) [facility]hamQysnfqnTEAXGXCIJT5716-58-64 10:01:00 Test Item Value Reference Range Interpretation Comments Eosinophils # (test code 0.3 See_Comment [A utomated message] The = Eosinophils #) system whic h generated this result tra nsmitted reference range : <=0.5. The reference r delaney was not used to int erpret this result as normal/abnormal . [facility] BrenhamZbojajcCJXWGRWFJN1663-97-68 10:01:00 Test Item Value Reference Range Interpretation Comments Segs-Bands # (test code = Segs-Bands #) 4.0 1.5-8.1 [facility] BrenhamAnlhbesNUQVLUTAET9196-95-15 10:01:00 Test Item Value Reference Range Interpretation Comments Monocytes (test code = Monocytes) 6.8 2.0-12.0 [facility]hamUabtpndGSUZJCLWAX6511-24-58 10:01:00 Test Item Value Reference Range Interpretation Comments Basophils (test code = 0.4 See_Comment [Aut omated message] The Basophils) system which ge nerated this result tra nsmitted reference range : <=1.0. The reference r delaney was not used to int erpret this result as normal/abnormal . [facility]hamJutbknwEIAWLJPLPI8196-91-55 10:01:00 Test Item Value Reference Range Interpretation Comments Eosinophils (test code = 4.3 See_Comment [A utomated message] The Eosinophils) system which ge nerated this result tra nsmitted reference range : <=4.0. The reference r delaney was not used to int erpret this result as normal/abnormal . [facility] BrenhamLwdpfvkJECWVJTHCV0833-79-68 10:01:00 Test Item Value Reference Range Interpretation Comments Lymphocytes (test code = Lymphocytes) 30.0 20.0-40.0 [facility]hamOgsibirHCSAIUEXJN8421-23-72 10:01:00 Test Item Value Reference Range Interpretation Comments Segs (test code = Segs) 58.5 45.0-75.[address] [facility]RO[facility] RLFGINZ2074-51-30 10:01:00 Test Item Value Reference Range Interpretation Comments Ca Ion WB (test code = Ca Ion WB) 1.11 1.05-1.25 [facility]2017-01-24 10:01:00 Test Item Value Reference Range Interpretation Comments Ca Norm WB (test code = Ca Norm WB) 1.11 1.05-1.25 [facility]2017-01-24 10:01:00 Test Item Value Reference Range Interpretation Comments Phosphorus (test code = Phosphorus) 4.2 2.5-4.5 [facility]2017-01-24 10:01:00 Test Item Value Reference Range Interpretation Comments Globulin (test code = Globulin) 3.6 2.7-4.2 [facility]2017-01-24 10:01:00 Test Item Value Reference Range Interpretation Comments AGAP (test code = AGAP) 10.8 10.0-20.0 [facility]2017-01-24 10:01:00 Test Item Value Reference Range Interpretation Comments B/C Ratio (test code = B/C Ratio) 17 6-25 [facility]2017-01-24 10:01:00 Test Item Value Reference Range Interpretation Comments A/G Ratio (test code = A/G Ratio) 0.8 0.7-1.6 [facility]2017-01-24 10:01:00 Test Item Value Reference Range Interpretation Comments eGFR (test code = eGFR) 69 [facility]2017-01-24 10:01:00 Test Item Value Reference Range Interpretation Comments Creatinine Lvl (test code = Creatinine 1.09 0.50-1.40 Lvl) [facility]2017-01-24 10:01:00 Test Item Value Reference Range Interpretation Comments Sodium Lvl (test code = Sodium Lvl) 138 135-145 [facility]2017-01-24 10:01:00 Test Item Value Reference Range Interpretation Comments BUN (test code = BUN) 19 7-22 [facility]2017-01-24 10:01:00 Test Item Value Reference Range Interpretation Comments Alk Phos (test code = Alk Phos) 82 39-136 [facility]2017-01-24 10:01:00 Test Item Value Reference Range Interpretation Comments Bili Total (test code = Bili Total) 0.4 0.2-1.3 [facility]2017-01-24 10:01:00 Test Item Value Reference Range Interpretation Comments AST (test code = AST) 16 See_Comment [Auto mated message] The system which ge nerated this result transmit óscar reference range : <=37. The reference range was not used to interpr et this result as kristine l/abnormal. [facility]2017-01-24 10:01:00 Test Item Value Reference Range Interpretation Comments Total Protein (test code = Total 6.5 6.4-8.4 Protein) [facility]2017-01-24 10:01:00 Test Item Value Reference Range Interpretation Comments Calcium Lvl (test code = Calcium Lvl) 8.6 8.5-10.5 [facility]2017-01-24 10:01:00 Test Item Value Reference Range Interpretation Comments Potassium Lvl (test code = Potassium 4.8 3.5-5.1 Lvl) [facility]2017-01-24 10:01:00 Test Item Value Reference Range Interpretation Comments Chloride Lvl (test code = Chloride Lvl) 104 95-109 [facility]2017-01-24 10:01:00 Test Item Value Reference Range Interpretation Comments CO2 (test code = CO2) 28 24-32 [facility]2017-01-24 10:01:00 Test Item Value Reference Range Interpretation Comments Albumin Lvl (test code = Albumin Lvl) 2.9 3.5-5.0 [facility]2017-01-24 10:01:00 Test Item Value Reference Range Interpretation Comments ALT (test code = ALT) 12 See_Comment [Auto mated message] The system which ge nerated this result transmit óscar reference range : <=65. The reference range was not used to interpr et this result as kristine l/abnormal. [facility]2017-01-24 10:01:00 Test Item Value Reference Range Interpretation Comments Glucose Lvl (test code = Glucose Lvl) 220 70-99 [facility]2017-01-24 10:01:00 Test Item Value Reference Range Interpretation Comments Magnesium Lvl (test code = Magnesium 1.9 1.8-2.4 Lvl) [facility]hamZsgupcwBIEQJGQWZN7853-40-84 10:01:00 Test Item Value Reference Range Interpretation Comments INR (test code = INR) 1.18 0.85-1.17 [facility]hamMzjzmvtDIWBOZURZS4271-26-53 10:01:00 Test Item Value Reference Range Interpretation Comments PT (test code = PT) 15.3 s 12.0-14.7 [facility]hamMzieejoFZABJFDYWC9324-08-33 10:01:00 Test Item Value Reference Range Interpretation Comments PTT (test code = PTT) 66.0 s 22.9-35.8 [facility]hamFnydztsAPFIVITRCK1780-72-01 10:01:00 Test Item Value Reference Range Interpretation Comments Platelet (test code = Platelet) 141 133-450 [facility]hamUtgnbvnGODBWZJQKK7597-88-02 10:01:00 Test Item Value Reference Range Interpretation Comments MPV (test code = MPV) 8.5 7.4-10.4 [facility]hamIqfjgvrCJHYDPHOJJ4059-81-37 10:01:00 Test Item Value Reference Range Interpretation Comments RBC (test code = RBC) 4.14 4.70-6.10 [facility] BrenhamZfonssoWEKNTDBJSN2933-12-30 10:01:00 Test Item Value Reference Range Interpretation Comments Hct (test code = Hct) 34.6 42.0-54.0 [facility]hamQilrnezMHCTESNWNW0674-01-59 10:01:00 Test Item Value Reference Range Interpretation Comments WBC (test code = WBC) 6.9 3.7-10.4 [facility]hamUjsdfepMWECMWQVET6677-29-93 10:01:00 Test Item Value Reference Range Interpretation Comments MCV (test code = MCV) 83.7 80.0-94.0 [place] 737097-01-24 10:01:00 Test Item Value Reference Range Interpretation Comments RDW (test code = RDW) 17.4 11.5-14.5 [facility]hamKjitqxpUIPHBCXSTF7073-98-07 10:01:00 Test Item Value Reference Range Interpretation Comments MCHC (test code = MCHC) 33.0 32.0-36.0 [facility]hamExgbwutKUMIUQHQSW0108-73-03 10:01:00 Test Item Value Reference Range Interpretation Comments Hgb (test code = Hgb) 11.4 14.0-18.0 [facility]hamWugovhyAEWPAJYUJR0019-18-52 10:01:00 Test Item Value Reference Range Interpretation Comments MCH (test code = MCH) 27.7 pg 27.0-31.0 [facility] BrenhamBxgioibQKFHPUCSRJ8724-74-11 10:01:00 Test Item Value Reference Range Interpretation Comments Monocytes # (test code 0.5 See_Comment [Aut omated message] The = Monocytes #) system which generated this result tra nsmitted reference range : <=0.8. The reference r delaney was not used to int erpret this result as normal/abnormal . [facility]hamSfaylvtICJYWXZXLS1338-14-67 10:01:00 Test Item Value Reference Range Interpretation Comments Lymphocytes # (test code = Lymphocytes 2.1 1.0-5.5 #) [facility]hamNgcanyjGRTRZZHYGH9150-53-16 10:01:00 Test Item Value Reference Range Interpretation Comments Eosinophils # (test code 0.3 See_Comment [A utomated message] The = Eosinophils #) system whic h generated this result tra nsmitted reference range : <=0.5. The reference r delaney was not used to int erpret this result as normal/abnormal . [facility]hamLfuriliIAXXZRKEHW1496-74-09 10:01:00 Test Item Value Reference Range Interpretation Comments Segs-Bands # (test code = Segs-Bands #) 4.0 1.5-8.1 [facility]hamGwysjvcNVTFXCUBUD7171-29-70 10:01:00 Test Item Value Reference Range Interpretation Comments Monocytes (test code = Monocytes) 6.8 2.0-12.0 [facility] QXTPB7657-98-23 10:01:00 Test Item Value Reference Range Interpretation Comments Phosphorus (test code = Phosphorus) 4.2 2.5-4.5 [facility]2017-01-24 10:01:00 Test Item Value Reference Range Interpretation Comments Globulin (test code = Globulin) 3.6 2.7-4.2 [facility]2017-01-24 10:01:00 Test Item Value Reference Range Interpretation Comments AGAP (test code = AGAP) 10.8 10.0-20.0 [facility]2017-01-24 10:01:00 Test Item Value Reference Range Interpretation Comments B/C Ratio (test code = B/C Ratio) 17 6-25 [facility]2017-01-24 10:01:00 Test Item Value Reference Range Interpretation Comments A/G Ratio (test code = A/G Ratio) 0.8 0.7-1.6 [facility]2017-01-24 10:01:00 Test Item Value Reference Range Interpretation Comments eGFR (test code = eGFR) 69 [facility]2017-01-24 10:01:00 Test Item Value Reference Range Interpretation Comments Creatinine Lvl (test code = Creatinine 1.09 0.50-1.40 Lvl) [facility]hamDsmrgajTVEOXIIFPV1220-63-13 10:01:00 Test Item Value Reference Range Interpretation Comments Basophils (test code = 0.4 See_Comment [Aut omated message] The Basophils) system which ge nerated this result tra nsmitted reference range : <=1.0. The reference r delaney was not used to int erpret this result as normal/abnormal . [facility]2017-01-24 10:01:00 Test Item Value Reference Range Interpretation Comments Sodium Lvl (test code = Sodium Lvl) 138 135-145 [facility]2017-01-24 10:01:00 Test Item Value Reference Range Interpretation Comments BUN (test code = BUN) 19 7-22 [facility]2017-01-24 10:01:00 Test Item Value Reference Range Interpretation Comments Alk Phos (test code = Alk Phos) 82 39-136 [facility]2017-01-24 10:01:00 Test Item Value Reference Range Interpretation Comments Bili Total (test code = Bili Total) 0.4 0.2-1.3 [facility]2017-01-24 10:01:00 Test Item Value Reference Range Interpretation Comments AST (test code = AST) 16 See_Comment [Auto mated message] The system which ge nerated this result transmit óscar reference range : <=37. The reference range was not used to interpr et this result as kristine l/abnormal. [facility]2017-01-24 10:01:00 Test Item Value Reference Range Interpretation Comments Total Protein (test code = Total 6.5 6.4-8.4 Protein) [facility]2017-01-24 10:01:00 Test Item Value Reference Range Interpretation Comments Calcium Lvl (test code = Calcium Lvl) 8.6 8.5-10.5 [facility]2017-01-24 10:01:00 Test Item Value Reference Range Interpretation Comments Potassium Lvl (test code = Potassium 4.8 3.5-5.1 Lvl) [facility]2017-01-24 10:01:00 Test Item Value Reference Range Interpretation Comments Chloride Lvl (test code = Chloride Lvl) 104 95-109 [facility]2017-01-24 10:01:00 Test Item Value Reference Range Interpretation Comments CO2 (test code = CO2) 28 24-32 [facility]hamMranruhYGBSIEWCWA5309-45-72 10:01:00 Test Item Value Reference Range Interpretation Comments Eosinophils (test code = 4.3 See_Comment [A utomated message] The Eosinophils) system which ge nerated this result tra nsmitted reference range : <=4.0. The reference r delaney was not used to int erpret this result as normal/abnormal . [facility]2017-01-24 10:01:00 Test Item Value Reference Range Interpretation Comments Albumin Lvl (test code = Albumin Lvl) 2.9 3.5-5.0 [facility]2017-01-24 10:01:00 Test Item Value Reference Range Interpretation Comments ALT (test code = ALT) 12 See_Comment [Auto mated message] The system which ge nerated this result transmit óscar reference range : <=65. The reference range was not used to interpr et this result as kristine l/abnormal. [facility]2017-01-24 10:01:00 Test Item Value Reference Range Interpretation Comments Glucose Lvl (test code = Glucose Lvl) 220 70-99 [facility]2017-01-24 10:01:00 Test Item Value Reference Range Interpretation Comments Magnesium Lvl (test code = Magnesium 1.9 1.8-2.4 Lvl) [facility]hamDzxokpdWVXXYCQRIP6369-50-00 10:01:00 Test Item Value Reference Range Interpretation Comments INR (test code = INR) 1.18 0.85-1.17 [facility]hamJdqbmlaWOIDTBGYGD6192-98-91 10:01:00 Test Item Value Reference Range Interpretation Comments PT (test code = PT) 15.3 s 12.0-14.7 [facility] BrenhamIagrbegEKEOCKOWQK3676-41-54 10:01:00 Test Item Value Reference Range Interpretation Comments PTT (test code = PTT) 66.0 s 22.9-35.8 [facility]hamKpdmcurMGARKEHFGD5729-81-13 10:01:00 Test Item Value Reference Range Interpretation Comments Platelet (test code = Platelet) 141 133-450 [facility] BrenhamFqlvictSJITFRWUFZ9458-83-33 10:01:00 Test Item Value Reference Range Interpretation Comments MPV (test code = MPV) 8.5 7.4-10.4 [facility]hamVjucjxjAFBEBJARPO5062-53-70 10:01:00 Test Item Value Reference Range Interpretation Comments RBC (test code = RBC) 4.14 4.70-6.10 [facility] BrenhamZodsnemRVKEADKMLI0022-15-62 10:01:00 Test Item Value Reference Range Interpretation Comments Lymphocytes (test code = Lymphocytes) 30.0 20.0-40.0 [facility]hamByinqwaMCIFLZNOXH9425-58-43 10:01:00 Test Item Value Reference Range Interpretation Comments Hct (test code = Hct) 34.6 42.0-54.0 [facility]hamJhjmprxKZHDVXKEAZ2129-31-13 10:01:00 Test Item Value Reference Range Interpretation Comments WBC (test code = WBC) 6.9 3.7-10.4 [facility]hamSsjwblnSAZTEDHARE6606-81-04 10:01:00 Test Item Value Reference Range Interpretation Comments MCV (test code = MCV) 83.7 80.0-94.0 [facility]hamFgczysrFRGWPGRNOQ0603-69-56 10:01:00 Test Item Value Reference Range Interpretation Comments RDW (test code = RDW) 17.4 11.5-14.5 [facility] BrenhamZpypdmrOPEVOBOSPL5322-61-34 10:01:00 Test Item Value Reference Range Interpretation Comments MCHC (test code = MCHC) 33.0 32.0-36.0 [facility] BrenhamPhogluoEYZXUUBCJH1002-41-34 10:01:00 Test Item Value Reference Range Interpretation Comments Hgb (test code = Hgb) 11.4 14.0-18.0 [facility] BrenhamQtkizgwKTCGKUJIBD5012-12-61 10:01:00 Test Item Value Reference Range Interpretation Comments MCH (test code = MCH) 27.7 pg 27.0-31.0 [facility]hamNqftxsoESZJXYFIWC5983-66-70 10:01:00 Test Item Value Reference Range Interpretation Comments Monocytes # (test code 0.5 See_Comment [Aut omated message] The = Monocytes #) system which generated this result tra nsmitted reference range : <=0.8. The reference r delaney was not used to int erpret this result as normal/abnormal . [facility]hamXvnzfkiLQEDZNOKVY0918-31-16 10:01:00 Test Item Value Reference Range Interpretation Comments Lymphocytes # (test code = Lymphocytes 2.1 1.0-5.5 #) [facility] BrenhamFvfauneLZRJLQGCYX8287-44-69 10:01:00 Test Item Value Reference Range Interpretation Comments Eosinophils # (test code 0.3 See_Comment [A utomated message] The = Eosinophils #) system whic h generated this result tra nsmitted reference range : <=0.5. The reference r delaney was not used to int erpret this result as normal/abnormal . [facility] BrenhamEzwfodsAUMQGCRLGF3770-44-13 10:01:00 Test Item Value Reference Range Interpretation Comments Segs (test code = Segs) 58.5 45.0-75.0 [facility] BrenhamRqamibaNVBLVFHWSS7634-61-00 10:01:00 Test Item Value Reference Range Interpretation Comments Segs-Bands # (test code = Segs-Bands #) 4.0 1.5-8.1 [facility] BrenhamLdxfwpeVHSGUEMNQD5020-86-48 10:01:00 Test Item Value Reference Range Interpretation Comments Monocytes (test code = Monocytes) 6.8 2.0-12.0 [facility] BrenhamPonydzbLCIFOUPNVF2564-77-02 10:01:00 Test Item Value Reference Range Interpretation Comments Basophils (test code = 0.4 See_Comment [Aut omated message] The Basophils) system which ge nerated this result tra nsmitted reference range : <=1.0. The reference r delaney was not used to int erpret this result as normal/abnormal . [facility]hamNulnmadSQXDWFCCZL6381-24-96 10:01:00 Test Item Value Reference Range Interpretation Comments Eosinophils (test code = 4.3 See_Comment [A utomated message] The Eosinophils) system which ge nerated this result tra nsmitted reference range : <=4.0. The reference r delaney was not used to int erpret this result as normal/abnormal . [facility]hamMfxftwkKLJDGKDGHB5837-00-59 10:01:00 Test Item Value Reference Range Interpretation Comments Lymphocytes (test code = Lymphocytes) 30.0 20.0-40.0 [facility]hamJmqgyqoUFLDXRANHA3908-59-84 10:01:00 Test Item Value Reference Range Interpretation Comments Segs (test code = Segs) 58.5 45.0-75.0 [facility]2017-01-24 10:01:00 Test Item Value Reference Range Interpretation Comments Ca Ion WB (test code = Ca Ion WB) 1.11 1.05-1.25 [facility]2017-01-24 10:01:00 Test Item Value Reference Range Interpretation Comments Ca Norm WB (test code = Ca Norm WB) 1.11 1.05-1.25 [facility]2017-01-24 10:01:00 Test Item Value Reference Range Interpretation Comments Ca Ion WB (test code = Ca Ion WB) 1.11 1.05-1.25 [facility]2017-01-24 10:01:00 Test Item Value Reference Range Interpretation Comments Ca Norm WB (test code = Ca Norm WB) 1.11 1.05-1.25 [facility]2017-01-24 10:01:00 Test Item Value Reference Range Interpretation Comments Phosphorus (test code = Phosphorus) 4.2 2.5-4.5 [facility]2017-01-24 10:01:00 Test Item Value Reference Range Interpretation Comments Globulin (test code = Globulin) 3.6 2.7-4.2 [facility]2017-01-24 10:01:00 Test Item Value Reference Range Interpretation Comments AGAP (test code = AGAP) 10.8 10.0-20.0 [facility]2017-01-24 10:01:00 Test Item Value Reference Range Interpretation Comments B/C Ratio (test code = B/C Ratio) 17 6-25 [facility]2017-01-24 10:01:00 Test Item Value Reference Range Interpretation Comments A/G Ratio (test code = A/G Ratio) 0.8 0.7-1.6 [facility]2017-01-24 10:01:00 Test Item Value Reference Range Interpretation Comments eGFR (test code = eGFR) 69 [facility]2017-01-24 10:01:00 Test Item Value Reference Range Interpretation Comments Creatinine Lvl (test code = Creatinine 1.09 0.50-1.40 Lvl) [facility]2017-01-24 10:01:00 Test Item Value Reference Range Interpretation Comments Sodium Lvl (test code = Sodium Lvl) 138 135-145 [facility]2017-01-24 10:01:00 Test Item Value Reference Range Interpretation Comments BUN (test code = BUN) 19 7-22 [facility]2017-01-24 10:01:00 Test Item Value Reference Range Interpretation Comments Alk Phos (test code = Alk Phos) 82 39-136 [facility]2017-01-24 10:01:00 Test Item Value Reference Range Interpretation Comments Bili Total (test code = Bili Total) 0.4 0.2-1.3 [facility]2017-01-24 10:01:00 Test Item Value Reference Range Interpretation Comments AST (test code = AST) 16 See_Comment [Auto mated message] The system which ge nerated this result transmit óscar reference range : <=37. The reference range was not used to interpr et this result as kristine l/abnormal. [facility]2017-01-24 10:01:00 Test Item Value Reference Range Interpretation Comments Total Protein (test code = Total 6.5 6.4-8.4 Protein) [facility]2017-01-24 10:01:00 Test Item Value Reference Range Interpretation Comments Calcium Lvl (test code = Calcium Lvl) 8.6 8.5-10.5 [facility]2017-01-24 10:01:00 Test Item Value Reference Range Interpretation Comments Potassium Lvl (test code = Potassium 4.8 3.5-5.1 Lvl) [facility]2017-01-24 10:01:00 Test Item Value Reference Range Interpretation Comments Chloride Lvl (test code = Chloride Lvl) 104 95-109 [facility]2017-01-24 10:01:00 Test Item Value Reference Range Interpretation Comments CO2 (test code = CO2) 28 24-32 [facility]2017-01-24 10:01:00 Test Item Value Reference Range Interpretation Comments Albumin Lvl (test code = Albumin Lvl) 2.9 3.5-5.0 [facility]2017-01-24 10:01:00 Test Item Value Reference Range Interpretation Comments ALT (test code = ALT) 12 See_Comment [Auto mated message] The system which ge nerated this result transmit óscar reference range : <=65. The reference range was not used to interpr et this result as kristine l/abnormal. [facility]2017-01-24 10:01:00 Test Item Value Reference Range Interpretation Comments Glucose Lvl (test code = Glucose Lvl) 220 70-99 [facility]2017-01-24 10:01:00 Test Item Value Reference Range Interpretation Comments Magnesium Lvl (test code = Magnesium 1.9 1.8-2.4 Lvl) [facility]hamLmrqyemTGBOIDYXIB9642-22-67 10:01:00 Test Item Value Reference Range Interpretation Comments INR (test code = INR) 1.18 0.85-1.17 [facility]hamDbxuiyiDSCZTUHXHO8455-95-46 10:01:00 Test Item Value Reference Range Interpretation Comments PT (test code = PT) 15.3 s 12.0-14.7 [facility] BrenhamNphrnfeTLFFYCCNPJ9601-13-15 10:01:00 Test Item Value Reference Range Interpretation Comments PTT (test code = PTT) 66.0 s 22.9-35.8 [facility] BrenhamLdxstbmEYEVQAAMVH8808-53-65 10:01:00 Test Item Value Reference Range Interpretation Comments Platelet (test code = Platelet) 141 133-450 [facility] BrenhamOccelfqEIVNBSODZI1092-58-32 10:01:00 Test Item Value Reference Range Interpretation Comments MPV (test code = MPV) 8.5 7.4-10.4 [facility] BrenhamJjinxtoZLUKMAJKHM0646-13-59 10:01:00 Test Item Value Reference Range Interpretation Comments RBC (test code = RBC) 4.14 4.70-6.10 [facility] BrenhamBocxudfGGSBPNXDBX2677-22-72 10:01:00 Test Item Value Reference Range Interpretation Comments Hct (test code = Hct) 34.6 42.0-54.0 [facility] BrenhamCumdxjyVZLJRCVVSY4210-55-21 10:01:00 Test Item Value Reference Range Interpretation Comments WBC (test code = WBC) 6.9 3.7-10.4 [facility] BrenhamAowijubMQZQWSGPAT6522-36-12 10:01:00 Test Item Value Reference Range Interpretation Comments MCV (test code = MCV) 83.7 80.0-94.0 [facility] BrenhamXsmkqbiXQBNBXUJZU9239-18-12 10:01:00 Test Item Value Reference Range Interpretation Comments RDW (test code = RDW) 17.4 11.5-14.5 [facility] BrenhamRfmeeuwWXZTLGOPXV7483-62-41 10:01:00 Test Item Value Reference Range Interpretation Comments MCHC (test code = MCHC) 33.0 32.0-36.0 [facility] BrenhamYnvnvcvECBBLLJPHV2910-26-03 10:01:00 Test Item Value Reference Range Interpretation Comments Hgb (test code = Hgb) 11.4 14.0-18.0 [facility] BrenhamUtbkqczQVLVVUQXBI9867-68-08 10:01:00 Test Item Value Reference Range Interpretation Comments MCH (test code = MCH) 27.7 pg 27.0-31.0 [facility] BrenhamSxfmtriVJTBFSSXTS5349-02-04 10:01:00 Test Item Value Reference Range Interpretation Comments Monocytes # (test code 0.5 See_Comment [Aut omated message] The = Monocytes #) system which generated this result tra nsmitted reference range : <=0.8. The reference r delaney was not used to int erpret this result as normal/abnormal . [facility] BrenhamNssptnaLLDREYBMTY9085-69-71 10:01:00 Test Item Value Reference Range Interpretation Comments Lymphocytes # (test code = Lymphocytes 2.1 1.0-5.5 #) [facility] BrenhamRgfujtfWYGNXCIUZL0719-54-76 10:01:00 Test Item Value Reference Range Interpretation Comments Eosinophils # (test code 0.3 See_Comment [A utomated message] The = Eosinophils #) system whic h generated this result tra nsmitted reference range : <=0.5. The reference r delaney was not used to int erpret this result as normal/abnormal . [facility] BrenhamBemftabGYCRWFNYOR1718-94-54 10:01:00 Test Item Value Reference Range Interpretation Comments Segs-Bands # (test code = Segs-Bands #) 4.0 1.5-8.1 [facility] BrenhamIlxxykpBMMFZVPOXV6404-23-70 10:01:00 Test Item Value Reference Range Interpretation Comments Monocytes (test code = Monocytes) 6.8 2.0-12.0 [facility] BrenhamAkitvqpGRNIWHMPFH9605-26-56 10:01:00 Test Item Value Reference Range Interpretation Comments Basophils (test code = 0.4 See_Comment [Aut omated message] The Basophils) system which ge nerated this result tra nsmitted reference range : <=1.0. The reference r delaney was not used to int erpret this result as normal/abnormal . [facility] BrenhamRlhulpzVBHUWZFQOS1694-52-98 10:01:00 Test Item Value Reference Range Interpretation Comments Eosinophils (test code = 4.3 See_Comment [A utomated message] The Eosinophils) system which ge nerated this result tra nsmitted reference range : <=4.0. The reference r delaney was not used to int erpret this result as normal/abnormal . [facility]hamEakxrgzHCRDQBOOUG5357-22-25 10:01:00 Test Item Value Reference Range Interpretation Comments Lymphocytes (test code = Lymphocytes) 30.0 20.0-40.0 [facility] BrenhamOamnxfuIINSEMALPB8624-57-91 10:01:00 Test Item Value Reference Range Interpretation Comments Segs (test code = Segs) 58.5 45.0-75.0 [facility] FDCJKXB0088-15-06 10:01:00 Test Item Value Reference Range Interpretation Comments Ca Ion WB (test code = Ca Ion WB) 1.11 1.05-1.25 [facility]ATHY[facility]ID GNCAQSZ9679-10-49 10:01:00 Test Item Value Reference Range Interpretation Comments Ca Norm WB (test code = Ca Norm WB) 1.11 1.05-1.25 [facility] GOWRT5979-25-11 10:01:00 Test Item Value Reference Range Interpretation Comments Phosphorus (test code = Phosphorus) 4.2 2.5-4.5 [facility] [id number] 10:01:00 Test Item Value Reference Range Interpretation Comments Globulin (test code = Globulin) 3.6 2.7-4.2 [facility]2017-01-24 10:01:00 Test Item Value Reference Range Interpretation Comments AGAP (test code = AGAP) 10.8 10.0-20.0 [facility]2017-01-24 10:01:00 Test Item Value Reference Range Interpretation Comments Phosphorus (test code = Phosphorus) 4.2 2.5-4.5 [facility]2017-01-24 10:01:00 Test Item Value Reference Range Interpretation Comments B/C Ratio (test code = B/C Ratio) 17 01-16 [facility]2017-01-24 10:01:00 Test Item Value Reference Range Interpretation Comments Globulin (test code = Globulin) 3.6 2.7-4.2 [facility]2017-01-24 10:01:00 Test Item Value Reference Range Interpretation Comments A/G Ratio (test code = A/G Ratio) 0.8 0.7-1.6 [facility]2017-01-24 10:01:00 Test Item Value Reference Range Interpretation Comments AGAP (test code = AGAP) 10.8 10.0-20.0 [facility]2017-01-24 10:01:00 Test Item Value Reference Range Interpretation Comments eGFR (test code = eGFR) 69 [facility]2017-01-24 10:01:00 Test Item Value Reference Range Interpretation Comments B/C Ratio (test code = B/C Ratio) 01-16 [facility]2017-01-24 10:01:00 Test Item Value Reference Range Interpretation Comments Creatinine Lvl (test code = Creatinine 1.09 0.50-1.40 Lvl) [facility]2017-01-24 10:01:00 Test Item Value Reference Range Interpretation Comments A/G Ratio (test code = A/G Ratio) 0.8 0.7-1.6 [facility]2017-01-24 10:01:00 Test Item Value Reference Range Interpretation Comments Sodium Lvl (test code = Sodium Lvl) 138 135-145 [facility]2017-01-24 10:01:00 Test Item Value Reference Range Interpretation Comments eGFR (test code = eGFR) 69 [facility]2017-01-24 10:01:00 Test Item Value Reference Range Interpretation Comments BUN (test code = BUN) 02-12 [facility]2017-01-24 10:01:00 Test Item Value Reference Range Interpretation Comments Creatinine Lvl (test code = Creatinine 1.09 0.50-1.40 Lvl) [facility]2017-01-24 10:01:00 Test Item Value Reference Range Interpretation Comments Alk Phos (test code = Alk Phos) 82 39-136 [facility]2017-01-24 10:01:00 Test Item Value Reference Range Interpretation Comments Sodium Lvl (test code = Sodium Lvl) 138 135-145 [facility]2017-01-24 10:01:00 Test Item Value Reference Range Interpretation Comments Bili Total (test code = Bili Total) 0.4 0.2-1.3 [facility]2017-01-24 10:01:00 Test Item Value Reference Range Interpretation Comments BUN (test code = BUN) 02-12 [facility]2017-01-24 10:01:00 Test Item Value Reference Range Interpretation Comments AST (test code = AST) 16 See_Comment [Auto mated message] The system which ge nerated this result transmit óscar reference range : <=37. The reference range was not used to interpr et this result as kristine l/abnormal. [facility]2017-01-24 10:01:00 Test Item Value Reference Range Interpretation Comments Alk Phos (test code = Alk Phos) 82 39-136 [facility]2017-01-24 10:01:00 Test Item Value Reference Range Interpretation Comments Total Protein (test code = Total 6.5 6.4-8.4 Protein) [facility]2017-01-24 10:01:00 Test Item Value Reference Range Interpretation Comments Bili Total (test code = Bili Total) 0.4 0.2-1.3 [facility]2017-01-24 10:01:00 Test Item Value Reference Range Interpretation Comments Calcium Lvl (test code = Calcium Lvl) 8.6 8.5-10.5 [facility]2017-01-24 10:01:00 Test Item Value Reference Range Interpretation Comments Potassium Lvl (test code = Potassium 4.8 3.5-5.1 Lvl) [facility]2017-01-24 10:01:00 Test Item Value Reference Range Interpretation Comments AST (test code = AST) 16 See_Comment [Auto mated message] The system which ge nerated this result transmit óscar reference range : <=37. The reference range was not used to interpr et this result as kristine l/abnormal. [facility]2017-01-24 10:01:00 Test Item Value Reference Range Interpretation Comments Chloride Lvl (test code = Chloride Lvl) 104 95-109 [facility]2017-01-24 10:01:00 Test Item Value Reference Range Interpretation Comments Total Protein (test code = Total 6.5 6.4-8.4 Protein) [facility]2017-01-24 10:01:00 Test Item Value Reference Range Interpretation Comments CO2 (test code = CO2) 28 24-32 [facility]2017-01-24 10:01:00 Test Item Value Reference Range Interpretation Comments Calcium Lvl (test code = Calcium Lvl) 8.6 8.5-10.5 [facility]2017-01-24 10:01:00 Test Item Value Reference Range Interpretation Comments Albumin Lvl (test code = Albumin Lvl) 2.9 3.5-5.0 [facility]2017-01-24 10:01:00 Test Item Value Reference Range Interpretation Comments Potassium Lvl (test code = Potassium 4.8 3.5-5.1 Lvl) [facility]2017-01-24 10:01:00 Test Item Value Reference Range Interpretation Comments ALT (test code = ALT) 12 See_Comment [Auto mated message] The system which ge nerated this result transmit óscar reference range : <=65. The reference range was not used to interpr et this result as kristine l/abnormal. [facility]2017-01-24 10:01:00 Test Item Value Reference Range Interpretation Comments Chloride Lvl (test code = Chloride Lvl) 104 95-109 [facility]2017-01-24 10:01:00 Test Item Value Reference Range Interpretation Comments Glucose Lvl (test code = Glucose Lvl) 220 70-99 [facility]2017-01-24 10:01:00 Test Item Value Reference Range Interpretation Comments CO2 (test code = CO2) 28 24-32 [facility]2017-01-24 10:01:00 Test Item Value Reference Range Interpretation Comments Magnesium Lvl (test code = Magnesium 1.9 1.8-2.4 Lvl) [facility]2017-01-24 10:01:00 Test Item Value Reference Range Interpretation Comments Albumin Lvl (test code = Albumin Lvl) 2.9 3.5-5.0 [facility]hamJtiiibmCEZBNEGDFH2434-59-51 10:01:00 Test Item Value Reference Range Interpretation Comments INR (test code = INR) 1.18 0.85-1.17 [facility]2017-01-24 10:01:00 Test Item Value Reference Range Interpretation Comments ALT (test code = ALT) 12 See_Comment [Auto mated message] The system which ge nerated this result transmit óscar reference range : <=65. The reference range was not used to interpr et this result as kristine l/abnormal. [facility]hamIenlkrhBWLDRIZMXX0548-12-16 10:01:00 Test Item Value Reference Range Interpretation Comments PT (test code = PT) 15.3 s 12.0-14.7 [facility]2017-01-24 10:01:00 Test Item Value Reference Range Interpretation Comments Glucose Lvl (test code = Glucose Lvl) 220 70-99 [facility]hamWcmmsdnEBZLAIZMTJ2637-63-24 10:01:00 Test Item Value Reference Range Interpretation Comments PTT (test code = PTT) 66.0 s 22.9-35.8 [facility]2017-01-24 10:01:00 Test Item Value Reference Range Interpretation Comments Magnesium Lvl (test code = Magnesium 1.9 1.8-2.4 Lvl) [facility]hamFexevueLMMMANIFHR4481-34-65 10:01:00 Test Item Value Reference Range Interpretation Comments Platelet (test code = Platelet) 141 133-450 [facility]hamDtndfglZEVALBHWUI7846-93-51 10:01:00 Test Item Value Reference Range Interpretation Comments MPV (test code = MPV) 8.5 7.4-10.4 [facility]hamYmssacxDTPZWNLKAR4431-17-72 10:01:00 Test Item Value Reference Range Interpretation Comments INR (test code = INR) 1.18 0.85-1.17 [facility]hamGpwrkegBYXYORBZDP3991-94-60 10:01:00 Test Item Value Reference Range Interpretation Comments RBC (test code = RBC) 4.14 4.70-6.10 [facility]hamWycqpodRCALQKRXFU0865-52-86 10:01:00 Test Item Value Reference Range Interpretation Comments PT (test code = PT) 15.3 s 12.0-14.7 [facility] BrenhamDmnyefuOFWKNAKMOG4824-96-43 10:01:00 Test Item Value Reference Range Interpretation Comments Hct (test code = Hct) 34.6 42.0-54.0 [facility]hamEqxvgbdTCZHLPNKRY1170-24-58 10:01:00 Test Item Value Reference Range Interpretation Comments PTT (test code = PTT) 66.0 s 22.9-35.8 [facility]hamPslvamqAYOBOZNSKV8850-70-93 10:01:00 Test Item Value Reference Range Interpretation Comments WBC (test code = WBC) 6.9 3.7-10.4 [facility]hamMkjjmbwINMCGMXUSI1651-68-33 10:01:00 Test Item Value Reference Range Interpretation Comments Platelet (test code = Platelet) 141 133-450 [facility] BrenhamGorbrohCARRWSRHBG0364-88-62 10:01:00 Test Item Value Reference Range Interpretation Comments MCV (test code = MCV) 83.7 80.0-94.0 [facility] BrenhamMnquutzOMLEUKEFGG7341-94-24 10:01:00 Test Item Value Reference Range Interpretation Comments MPV (test code = MPV) 8.5 7.4-10.4 [facility]hamPwpunxeQVEBEGIDOR2928-86-45 10:01:00 Test Item Value Reference Range Interpretation Comments RDW (test code = RDW) 17.4 11.5-14.5 [facility]hamKdknklgVMQOTETGGS4154-92-92 10:01:00 Test Item Value Reference Range Interpretation Comments RBC (test code = RBC) 4.14 4.70-6.10 [facility] BrenhamLximpfpLQGIVJPKUT8387-97-70 10:01:00 Test Item Value Reference Range Interpretation Comments MCHC (test code = MCHC) 33.0 32.0-36.0 [facility]hamKnmhsruSHHFGTSHLI7243-85-55 10:01:00 Test Item Value Reference Range Interpretation Comments Hct (test code = Hct) 34.6 42.0-54.0 [facility] BrenhamDhrfyheVRLVWIHFDY9091-36-38 10:01:00 Test Item Value Reference Range Interpretation Comments Hgb (test code = Hgb) 11.4 14.0-18.0 [facility]hamQszqqbhVGZWIIDCXH2464-37-83 10:01:00 Test Item Value Reference Range Interpretation Comments WBC (test code = WBC) 6.9 3.7-10.4 [facility]hamCssvkdwLYWHRHOIKH2707-23-41 10:01:00 Test Item Value Reference Range Interpretation Comments MCH (test code = MCH) 27.7 pg 27.0-31.0 [facility]hamMydwjnmKRRRTGEMLX4598-08-47 10:01:00 Test Item Value Reference Range Interpretation Comments MCV (test code = MCV) 83.7 80.0-94.0 [facility]hamPcmtuxaLIZGYKAZUT7645-60-55 10:01:00 Test Item Value Reference Range Interpretation Comments Monocytes # (test code 0.5 See_Comment [Aut omated message] The = Monocytes #) system which generated this result tra nsmitted reference range : <=0.8. The reference r delaney was not used to int erpret this result as normal/abnormal . [facility]hamPjzmurhPRMBZHTOUG5586-00-08 10:01:00 Test Item Value Reference Range Interpretation Comments RDW (test code = RDW) 17.4 11.5-14.5 [facility]hamHcmnupuOIQFZJWJUD6064-60-77 10:01:00 Test Item Value Reference Range Interpretation Comments Lymphocytes # (test code = Lymphocytes 2.1 1.0-5.5 #) [facility]hamJiyqevkLJDTTSDLPT7578-42-39 10:01:00 Test Item Value Reference Range Interpretation Comments MCHC (test code = MCHC) 33.0 32.0-36.0 [facility] BrenhamRkmldttGHRYMDCLPA4526-98-04 10:01:00 Test Item Value Reference Range Interpretation Comments Eosinophils # (test code 0.3 See_Comment [A utomated message] The = Eosinophils #) system whic h generated this result tra nsmitted reference range : <=0.5. The reference r delaney was not used to int erpret this result as normal/abnormal . [facility]hamHygyyofVTDVIXBITH0425-82-04 10:01:00 Test Item Value Reference Range Interpretation Comments Hgb (test code = Hgb) 11.4 14.0-18.0 [facility]hamJfpplayTEJMUTXTLN8875-76-00 10:01:00 Test Item Value Reference Range Interpretation Comments Segs-Bands # (test code = Segs-Bands #) 4.0 1.5-8.1 [facility] BrenhamKhppghiVICGEAJVOA6377-80-41 10:01:00 Test Item Value Reference Range Interpretation Comments MCH (test code = MCH) 27.7 pg 27.0-31.0 [facility]hamXcplgnwBYJXQORBQJ7753-19-28 10:01:00 Test Item Value Reference Range Interpretation Comments Monocytes (test code = Monocytes) 6.8 2.0-12.0 [facility] BrenhamHnjjsmxRCHFBMPFUX4495-87-18 10:01:00 Test Item Value Reference Range Interpretation Comments Monocytes # (test code 0.5 See_Comment [Aut omated message] The = Monocytes #) system which generated this result tra nsmitted reference range : <=0.8. The reference r delnaey was not used to int erpret this result as normal/abnormal . [facility] BrenhamOfepvgqBPAYLQAOZV9417-58-31 10:01:00 Test Item Value Reference Range Interpretation Comments Basophils (test code = 0.4 See_Comment [Aut omated message] The Basophils) system which ge nerated this result tra nsmitted reference range : <=1.0. The reference r delaney was not used to int erpret this result as normal/abnormal . [facility]hamEuftwtmZLBPOQUFTU0681-74-13 10:01:00 Test Item Value Reference Range Interpretation Comments Lymphocytes # (test code = Lymphocytes 2.1 1.0-5.5 #) [facility]hamMdsrmneRQCVWZBZSI3146-90-53 10:01:00 Test Item Value Reference Range Interpretation Comments Eosinophils (test code = 4.3 See_Comment [A utomated message] The Eosinophils) system which ge nerated this result tra nsmitted reference range : <=4.0. The reference r delaney was not used to int erpret this result as normal/abnormal . [facility]hamEeuiwzmCXNXSBEPBF1247-73-28 10:01:00 Test Item Value Reference Range Interpretation Comments Eosinophils # (test code 0.3 See_Comment [A utomated message] The = Eosinophils #) system whic h generated this result tra nsmitted reference range : <=0.5. The reference r delaney was not used to int erpret this result as normal/abnormal . [facility] BrenhamGagcmbiFVQKKGCJWO4600-85-22 10:01:00 Test Item Value Reference Range Interpretation Comments Lymphocytes (test code = Lymphocytes) 30.0 20.0-40.0 [facility] BrenhamMjopuruCHNACIKDQJ0430-97-57 10:01:00 Test Item Value Reference Range Interpretation Comments Segs-Bands # (test code = Segs-Bands #) 4.0 1.5-8.1 [facility] BrenhamTqjxkjhTFBGVENQES3915-16-69 10:01:00 Test Item Value Reference Range Interpretation Comments Segs (test code = Segs) 58.5 45.0-75.0 [facility] BrenhamKijphojIIKCMIGKOQ4505-06-97 10:01:00 Test Item Value Reference Range Interpretation Comments Monocytes (test code = Monocytes) 6.8 2.0-12.0 [facility]2017-01-24 10:01:00 Test Item Value Reference Range Interpretation Comments Ca Ion WB (test code = Ca Ion WB) 1.11 1.05-1.25 [facility]2017-01-24 10:01:00 Test Item Value Reference Range Interpretation Comments Ca Norm WB (test code = Ca Norm WB) 1.11 1.05-1.25 [facility]hamXhtdrguZEGRCECIFI5072-31-38 10:01:00 Test Item Value Reference Range Interpretation Comments Basophils (test code = 0.4 See_Comment [Aut omated message] The Basophils) system which ge nerated this result tra nsmitted reference range : <=1.0. The reference r delaney was not used to int erpret this result as normal/abnormal . [facility] BrenhamFbzhjlmVAVNZGZRVA8509-16-80 10:01:00 Test Item Value Reference Range Interpretation Comments Eosinophils (test code = 4.3 See_Comment [A utomated message] The Eosinophils) system which ge nerated this result tra nsmitted reference range : <=4.0. The reference r delaney was not used to int erpret this result as normal/abnormal . [facility] BrenhamOfqawryPSQWCUPOXV9340-34-31 10:01:00 Test Item Value Reference Range Interpretation Comments Lymphocytes (test code = Lymphocytes) 30.0 20.0-40.0 [facility] BrenhamUmdglenREDXXJDDZG5489-68-05 10:01:00 Test Item Value Reference Range Interpretation Comments Segs (test code = Segs) 58.5 45.0-75.0 [facility]2017-01-24 10:01:00 Test Item Value Reference Range Interpretation Comments Ca Ion WB (test code = Ca Ion WB) 1.11 1.05-1.25 [facility]2017-01-24 10:01:00 Test Item Value Reference Range Interpretation Comments Ca Norm WB (test code = Ca Norm WB) 1.11 1.05-1.25 [facility]2017-01-23 23:57:00 Test Item Value Reference Range Interpretation Comments Phosphorus (test code = Phosphorus) 4.1 2.5-4.5 [facility]2017-01-23 23:57:00 Test Item Value Reference Range Interpretation Comments Magnesium Lvl (test code = Magnesium 1.8 1.8-2.4 Lvl) [facility] BrenhamHzlmlfzOIPVIKOFEH2112-16-50 23:57:00 Test Item Value Reference Range Interpretation Comments PTT (test code = PTT) 63.3 s 22.9-35.8 [facility] BrenhamZknfsrhYASSJEDEHD9069-01-75 23:57:00 Test Item Value Reference Range Interpretation Comments INR (test code = INR) 1.17 0.85-1.17 [facility] BrenhamHayqqtoZBMYIIMLSS2236-14-07 23:57:00 Test Item Value Reference Range Interpretation Comments PT (test code = PT) 15.1 s 12.0-14.7 [facility]2017-01-23 23:57:00 Test Item Value Reference Range Interpretation Comments Phosphorus (test code = Phosphorus) 4.1 2.5-4.5 [facility]2017-01-23 23:57:00 Test Item Value Reference Range Interpretation Comments Magnesium Lvl (test code = Magnesium 1.8 1.8-2.4 Lvl) [facility] BrenhamXbxtfecLODQMORNUR5984-11-10 23:57:00 Test Item Value Reference Range Interpretation Comments PTT (test code = PTT) 63.3 s 22.9-35.8 [facility]hamJmdspppYAGMYGCNNL4442-29-35 23:57:00 Test Item Value Reference Range Interpretation Comments INR (test code = INR) 1.17 0.85-1.17 [facility] BrenhamKdknkrfZGQTZSMWUI9545-39-68 23:57:00 Test Item Value Reference Range Interpretation Comments PT (test code = PT) 15.1 s 12.0-14.7 [place] 981417-01-23 23:57:00 Test Item Value Reference Range Interpretation Comments Phosphorus (test code = Phosphorus) 4.1 2.5-4.5 [facility]2017-01-23 23:57:00 Test Item Value Reference Range Interpretation Comments Magnesium Lvl (test code = Magnesium 1.8 1.8-2.4 Lvl) [facility]hamNzqfldsGWKISQDEAP5849-24-63 23:57:00 Test Item Value Reference Range Interpretation Comments PTT (test code = PTT) 63.3 s 22.9-35.8 [facility] BrenhamDpegcifVKJQJUFUSQ8244-63-59 23:57:00 Test Item Value Reference Range Interpretation Comments INR (test code = INR) 1.17 0.85-1.17 [facility] BrenhamPopdrakJKMNRGWGQQ4155-16-67 23:57:00 Test Item Value Reference Range Interpretation Comments PT (test code = PT) 15.1 s 12.0-14.7 [facility]2017-01-23 23:57:00 Test Item Value Reference Range Interpretation Comments Phosphorus (test code = Phosphorus) 4.1 2.5-4.5 [facility]2017-01-23 23:57:00 Test Item Value Reference Range Interpretation Comments Magnesium Lvl (test code = Magnesium 1.8 1.8-2.4 Lvl) [facility]hamShaqubyMBYEFXRIDL7215-94-85 23:57:00 Test Item Value Reference Range Interpretation Comments PTT (test code = PTT) 63.3 s 22.9-35.8 [facility] BrenhamVdhllxrRESEGPZYHL5928-93-06 23:57:00 Test Item Value Reference Range Interpretation Comments INR (test code = INR) 1.17 0.85-1.17 [facility] BrenhamXefscizMVYFJGAVGX4699-26-46 23:57:00 Test Item Value Reference Range Interpretation Comments PT (test code = PT) 15.1 s 12.0-14.7 [facility]2017-01-23 23:57:00 Test Item Value Reference Range Interpretation Comments Phosphorus (test code = Phosphorus) 4.1 2.5-4.5 [facility]2017-01-23 23:57:00 Test Item Value Reference Range Interpretation Comments Magnesium Lvl (test code = Magnesium 1.8 1.8-2.4 Lvl) [facility] BrenhamGlbkawrWPZZCKAMYE2515-20-88 23:57:00 Test Item Value Reference Range Interpretation Comments PTT (test code = PTT) 63.3 s 22.9-35.8 [facility] BrenhamSgxdhffCPUCVENZDI1388-78-66 23:57:00 Test Item Value Reference Range Interpretation Comments INR (test code = INR) 1.17 0.85-1.17 [facility] BrenhamQrfhtwzOEADZNCYHL4557-50-26 23:57:00 Test Item Value Reference Range Interpretation Comments PT (test code = PT) 15.1 s 12.0-14.7 [facility]2017-01-23 23:57:00 Test Item Value Reference Range Interpretation Comments Phosphorus (test code = Phosphorus) 4.1 2.5-4.5 [facility]2017-01-23 23:57:00 Test Item Value Reference Range Interpretation Comments Magnesium Lvl (test code = Magnesium 1.8 1.8-2.4 Lvl) [facility]hamMlsnfsiPJVWVGYSYK2264-96-20 23:57:00 Test Item Value Reference Range Interpretation Comments PTT (test code = PTT) 63.3 s 22.9-35.8 [facility]hamJgwrhefGZSJNKOUEY7149-86-18 23:57:00 Test Item Value Reference Range Interpretation Comments INR (test code = INR) 1.17 0.85-1.17 [facility] BrenhamKxpevatLLEHAFIGNG1859-37-07 23:57:00 Test Item Value Reference Range Interpretation Comments PT (test code = PT) 15.1 s 12.0-14.7 [facility]2017-01-23 20:05:00 Test Item Value Reference Range Interpretation Comments U Magnesium (test code = U Magnesium) no gt [facility]2017-01-23 20:05:00 Test Item Value Reference Range Interpretation Comments U Chloride (test code = U Chloride) 143 [facility]2017-01-23 20:05:00 Test Item Value Reference Range Interpretation Comments U Potassium (test code = U Potassium) 33.9 [facility]2017-01-23 20:05:00 Test Item Value Reference Range Interpretation Comments U Sodium (test code = U Sodium) 115 [facility]2017-01-23 20:05:00 Test Item Value Reference Range Interpretation Comments U Magnesium (test code = U Magnesium) no gt [facility]2017-01-23 20:05:00 Test Item Value Reference Range Interpretation Comments U Chloride (test code = U Chloride) 143 [facility]2017-01-23 20:05:00 Test Item Value Reference Range Interpretation Comments U Potassium (test code = U Potassium) 33.9 [facility]2017-01-23 20:05:00 Test Item Value Reference Range Interpretation Comments U Sodium (test code = U Sodium) 115 [facility]2017-01-23 20:05:00 Test Item Value Reference Range Interpretation Comments U Magnesium (test code = U Magnesium) no gt [facility]2017-01-23 20:05:00 Test Item Value Reference Range Interpretation Comments U Chloride (test code = U Chloride) 143 [facility]2017-01-23 20:05:00 Test Item Value Reference Range Interpretation Comments U Potassium (test code = U Potassium) 33.9 [facility]2017-01-23 20:05:00 Test Item Value Reference Range Interpretation Comments U Sodium (test code = U Sodium) 115 [facility]2017-01-23 20:05:00 Test Item Value Reference Range Interpretation Comments U Magnesium (test code = U Magnesium) no gt [facility]2017-01-23 20:05:00 Test Item Value Reference Range Interpretation Comments U Chloride (test code = U Chloride) 143 [facility]2017-01-23 20:05:00 Test Item Value Reference Range Interpretation Comments U Potassium (test code = U Potassium) 33.9 [facility]2017-01-23 20:05:00 Test Item Value Reference Range Interpretation Comments U Sodium (test code = U Sodium) 115 [facility]2017-01-23 20:05:00 Test Item Value Reference Range Interpretation Comments U Magnesium (test code = U Magnesium) no gt [facility]2017-01-23 20:05:00 Test Item Value Reference Range Interpretation Comments U Chloride (test code = U Chloride) 143 [facility]2017-01-23 20:05:00 Test Item Value Reference Range Interpretation Comments U Potassium (test code = U Potassium) 33.9 [facility]2017-01-23 20:05:00 Test Item Value Reference Range Interpretation Comments U Sodium (test code = U Sodium) 115 [facility]2017-01-23 20:05:00 Test Item Value Reference Range Interpretation Comments U Magnesium (test code = U Magnesium) no gt [facility]2017-01-23 20:05:00 Test Item Value Reference Range Interpretation Comments U Chloride (test code = U Chloride) 143 [facility]2017-01-23 20:05:00 Test Item Value Reference Range Interpretation Comments U Potassium (test code = U Potassium) 33.9 [facility]2017-01-23 20:05:00 Test Item Value Reference Range Interpretation Comments U Sodium (test code = U Sodium) 115 [facility]hamPufkjuoDGUDUNJIFC4674-76-18 17:50:00 Test Item Value Reference Range Interpretation Comments Segs (test code = Segs) 71.2 45.0-75.0 [facility]hamBftkrooTXVWYCBXCY6823-93-56 17:50:00 Test Item Value Reference Range Interpretation Comments Lymphocytes (test code = Lymphocytes) 18.2 20.0-40.0 [facility] BrenhamWyytszvRXBLCMPEDQ5067-13-85 17:50:00 Test Item Value Reference Range Interpretation Comments Monocytes (test code = Monocytes) 6.8 2.0-12.0 [facility] BrenhamTmrjonqOLBLUZGCDU3042-00-84 17:50:00 Test Item Value Reference Range Interpretation Comments Eosinophils (test code = 3.3 See_Comment [A utomated message] The Eosinophils) system which ge nerated this result tra nsmitted reference range : <=4.0. The reference r delaney was not used to int erpret this result as normal/abnormal . [facility] BrenhamCfdtmayRNOBSOLCOI4948-64-66 17:50:00 Test Item Value Reference Range Interpretation Comments Basophils (test code = 0.5 See_Comment [Aut omated message] The Basophils) system which ge nerated this result tra nsmitted reference range : <=1.0. The reference r delaney was not used to int erpret this result as normal/abnormal . [facility] BrenhamRkmiliuFRURWUYGHD0985-85-79 17:50:00 Test Item Value Reference Range Interpretation Comments Segs-Bands # (test code = Segs-Bands #) 6.2 1.5-8.1 [facility] BrenhamDzjuyjnJMZIXWUGFX9316-00-54 17:50:00 Test Item Value Reference Range Interpretation Comments Monocytes # (test code 0.6 See_Comment [Aut omated message] The = Monocytes #) system which generated this result tra nsmitted reference range : <=0.8. The reference r delaney was not used to int erpret this result as normal/abnormal . [facility] BrenhamJjqdcjnAGDPBQUBDU9137-55-45 17:50:00 Test Item Value Reference Range Interpretation Comments Lymphocytes # (test code = Lymphocytes 1.6 1.0-5.5 #) [facility] BrenhamByyxmvuQQYLKZHEAT7379-86-84 17:50:00 Test Item Value Reference Range Interpretation Comments Eosinophils # (test code 0.3 See_Comment [A utomated message] The = Eosinophils #) system whic h generated this result tra nsmitted reference range : <=0.5. The reference r delaney was not used to int erpret this result as normal/abnormal . [facility] BrenhamZlquvciLMPLJTBQZY4907-58-47 17:50:00 Test Item Value Reference Range Interpretation Comments PTT (test code = PTT) 65.2 s 22.9-35.8 [facility]hamMlztjgqXMCXAYYCYY8913-28-01 17:50:00 Test Item Value Reference Range Interpretation Comments INR (test code = INR) 1.19 0.85-1.17 [facility] BrenhamEafnnrmYPVNHDCNQV8078-16-87 17:50:00 Test Item Value Reference Range Interpretation Comments PT (test code = PT) 15.4 s 12.0-14.7 [facility] [facility]hamTbmvobrUPPAXFEYZI2130-58-30 17:50:00 Test Item Value Reference Range Interpretation Comments MPV (test code = MPV) 8.9 7.4-10.4 [facility]hamItzpccpNYKDXZDAEE3417-97-13 17:50:00 Test Item Value Reference Range Interpretation Comments Platelet (test code = Platelet) 150 133-450 [facility]hamHtgcdmdOKVQYOAYCI8642-06-64 17:50:00 Test Item Value Reference Range Interpretation Comments RDW (test code = RDW) 17.2 11.5-14.5 [facility]hamSorrpxrENGJBRKWHE2662-85-54 17:50:00 Test Item Value Reference Range Interpretation Comments MCHC (test code = MCHC) 32.3 32.0-36.0 [facility]hamQcmzampHBBRKCEDGI9028-57-51 17:50:00 Test Item Value Reference Range Interpretation Comments MCH (test code = MCH) 26.8 pg 27.0-31.0 [facility]hamBkchdcfYBQQXHQFXS5192-94-91 17:50:00 Test Item Value Reference Range Interpretation Comments Hct (test code = Hct) 35.9 42.0-54.0 [facility]hamAjoaxpyTUCBMDKIWU0239-43-40 17:50:00 Test Item Value Reference Range Interpretation Comments Hgb (test code = Hgb) 11.6 14.0-18.0 [facility]hamDaojrlzJKKPVISHXW1051-04-89 17:50:00 Test Item Value Reference Range Interpretation Comments MCV (test code = MCV) 83.0 80.0-94.0 [place] 737097-01-23 17:50:00 Test Item Value Reference Range Interpretation Comments RBC (test code = RBC) 4.32 4.70-6.10 [facility]hamQsyoaclZIKLESPFCJ6225-11-03 17:50:00 Test Item Value Reference Range Interpretation Comments WBC (test code = WBC) 8.7 3.7-10.4 [facility]hamGgkqjygOWDUYUTBYD2173-16-47 17:50:00 Test Item Value Reference Range Interpretation Comments Segs (test code = Segs) 71.2 45.0-75.0 [facility]hamYxiicfgHZTQCOPWEG8989-19-20 17:50:00 Test Item Value Reference Range Interpretation Comments Lymphocytes (test code = Lymphocytes) 18.2 20.0-40.0 [facility]hamLhhphutBAEBTVAOWK3057-35-50 17:50:00 Test Item Value Reference Range Interpretation Comments Monocytes (test code = Monocytes) 6.8 2.0-12.0 [facility]hamWgrzdwzBMYIMHQYHD1759-55-79 17:50:00 Test Item Value Reference Range Interpretation Comments Eosinophils (test code = 3.3 See_Comment [A utomated message] The Eosinophils) system which ge nerated this result tra nsmitted reference range : <=4.0. The reference r delaney was not used to int erpret this result as normal/abnormal . [facility]hamNsgvmcpQMDHBUZWNG0160-26-77 17:50:00 Test Item Value Reference Range Interpretation Comments Basophils (test code = 0.5 See_Comment [Aut omated message] The Basophils) system which ge nerated this result tra nsmitted reference range : <=1.0. The reference r delaney was not used to int erpret this result as normal/abnormal . [facility]hamMdezvuvWJUETYPHFI2358-72-19 17:50:00 Test Item Value Reference Range Interpretation Comments Segs-Bands # (test code = Segs-Bands #) 6.2 1.5-8.1 [facility]hamLitboupGBVJGXCIFX1176-05-01 17:50:00 Test Item Value Reference Range Interpretation Comments Monocytes # (test code 0.6 See_Comment [Aut omated message] The = Monocytes #) system which generated this result tra nsmitted reference range : <=0.8. The reference r delaney was not used to int erpret this result as normal/abnormal . [facility]hamSyqbpfdELYYJFAGOB8145-17-26 17:50:00 Test Item Value Reference Range Interpretation Comments Lymphocytes # (test code = Lymphocytes 1.6 1.0-5.5 #) [facility]hamYyviyseSEPGIYBLCO1082-94-70 17:50:00 Test Item Value Reference Range Interpretation Comments Eosinophils # (test code 0.3 See_Comment [A utomated message] The = Eosinophils #) system whic h generated this result tra nsmitted reference range : <=0.5. The reference r delaney was not used to int erpret this result as normal/abnormal . [facility]hamJxiokiwICJGWATIGP8404-60-14 17:50:00 Test Item Value Reference Range Interpretation Comments PTT (test code = PTT) 65.2 s 22.9-35.8 [facility]hamKtgtncdHBAQLNENXX6451-92-59 17:50:00 Test Item Value Reference Range Interpretation Comments INR (test code = INR) 1.19 0.85-1.17 [facility]hamYnuvwsxSUQPKBEYBC9267-58-02 17:50:00 Test Item Value Reference Range Interpretation Comments PT (test code = PT) 15.4 s 12.0-14.7 [facility]hamXnetcquQJVLNBIPTA7679-43-64 17:50:00 Test Item Value Reference Range Interpretation Comments MPV (test code = MPV) 8.9 7.4-10.4 [facility]hamPlmezucEVQZJOZDGD8972-61-11 17:50:00 Test Item Value Reference Range Interpretation Comments Platelet (test code = Platelet) 150 133-450 [facility]hamDinrrjrYLAGDIHZWH4221-98-77 17:50:00 Test Item Value Reference Range Interpretation Comments RDW (test code = RDW) 17.2 11.5-14.5 [facility]hamSrfyhnwHDNWDIZMTT7063-77-17 17:50:00 Test Item Value Reference Range Interpretation Comments MCHC (test code = MCHC) 32.3 32.0-36.0 [facility]hamBxmkriyIBLSYKXWXF1064-31-93 17:50:00 Test Item Value Reference Range Interpretation Comments MCH (test code = MCH) 26.8 pg 27.0-31.0 [facility]hamApluxxeKWGRVTNPGW0844-50-79 17:50:00 Test Item Value Reference Range Interpretation Comments Hct (test code = Hct) 35.9 42.0-54.0 [facility]hamDnkmjjfFUASFLNTZA3382-76-26 17:50:00 Test Item Value Reference Range Interpretation Comments Hgb (test code = Hgb) 11.6 14.0-18.0 [facility]hamYwnknfqYNXGXRQZOK1397-29-74 17:50:00 Test Item Value Reference Range Interpretation Comments MCV (test code = MCV) 83.0 80.0-94.0 [facility]hamJgfxktoWWQVRSCOIH5626-99-17 17:50:00 Test Item Value Reference Range Interpretation Comments RBC (test code = RBC) 4.32 4.70-6.10 [facility]hamYklnlinEBSQLALXDS6982-41-38 17:50:00 Test Item Value Reference Range Interpretation Comments WBC (test code = WBC) 8.7 3.7-10.4 [facility]hamQyluaezXETUFPZCBL0367-88-76 17:50:00 Test Item Value Reference Range Interpretation Comments Segs (test code = Segs) 71.2 45.0-75.0 [facility]hamRcpxghzBMWBLYMMTJ5704-10-96 17:50:00 Test Item Value Reference Range Interpretation Comments Lymphocytes (test code = Lymphocytes) 18.2 20.0-40.0 [facility]hamFzhkrvsDWCLQXTSVJ7366-86-28 17:50:00 Test Item Value Reference Range Interpretation Comments Monocytes (test code = Monocytes) 6.8 2.0-12.0 [facility]hamIhcvxugIIQKSDFYZK8549-01-53 17:50:00 Test Item Value Reference Range Interpretation Comments Eosinophils (test code = 3.3 See_Comment [A utomated message] The Eosinophils) system which ge nerated this result tra nsmitted reference range : <=4.0. The reference r delaney was not used to int erpret this result as normal/abnormal . [facility]hamBogrybzGNZOIKJVZS4925-94-44 17:50:00 Test Item Value Reference Range Interpretation Comments Basophils (test code = 0.5 See_Comment [Aut omated message] The Basophils) system which ge nerated this result tra nsmitted reference range : <=1.0. The reference r delaney was not used to int erpret this result as normal/abnormal . [facility]hamHboiewcTRFLDNCLJH2007-80-48 17:50:00 Test Item Value Reference Range Interpretation Comments Segs-Bands # (test code = Segs-Bands #) 6.2 1.5-8.1 [facility]hamTtgtxnaHHWAYDTNUX4139-25-81 17:50:00 Test Item Value Reference Range Interpretation Comments Monocytes # (test code 0.6 See_Comment [Aut omated message] The = Monocytes #) system which generated this result tra nsmitted reference range : <=0.8. The reference r delaney was not used to int erpret this result as normal/abnormal . [facility]hamBudzrvaMHUZRLLTMN5486-06-85 17:50:00 Test Item Value Reference Range Interpretation Comments Lymphocytes # (test code = Lymphocytes 1.6 1.0-5.5 #) [facility]hamAdtsmxlNDHGFNNNYK0103-13-30 17:50:00 Test Item Value Reference Range Interpretation Comments Eosinophils # (test code 0.3 See_Comment [A utomated message] The = Eosinophils #) system whic h generated this result tra nsmitted reference range : <=0.5. The reference r delaney was not used to int erpret this result as normal/abnormal . [facility]hamHgpoilyTXUDZGBXLO5786-70-32 17:50:00 Test Item Value Reference Range Interpretation Comments PTT (test code = PTT) 65.2 s 22.9-35.8 [facility]hamKdqvddjCYBLBOHVCR9736-62-96 17:50:00 Test Item Value Reference Range Interpretation Comments INR (test code = INR) 1.19 0.85-1.17 [facility]hamNpqcjsgUXJVQOAOTS0856-96-58 17:50:00 Test Item Value Reference Range Interpretation Comments PT (test code = PT) 15.4 s 12.0-14.7 [facility]hamQjakrimVBHQHTCZQI1531-12-83 17:50:00 Test Item Value Reference Range Interpretation Comments MPV (test code = MPV) 8.9 7.4-10.4 [facility]hamReqeendASJQHMBMAN4687-89-44 17:50:00 Test Item Value Reference Range Interpretation Comments Platelet (test code = Platelet) 150 133-450 [facility]hamRrgfqcuBOOFKTMIXI9973-62-24 17:50:00 Test Item Value Reference Range Interpretation Comments RDW (test code = RDW) 17.2 11.5-14.5 [facility]hamBzwzodxMJMXRIPCEN5018-28-22 17:50:00 Test Item Value Reference Range Interpretation Comments MCHC (test code = MCHC) 32.3 32.0-36.0 [facility]hamOrvseqgPSOOIAOIKR4477-92-61 17:50:00 Test Item Value Reference Range Interpretation Comments MCH (test code = MCH) 26.8 pg 27.0-31.0 [facility]hamKlfkahmENHRLRUWHF9014-02-77 17:50:00 Test Item Value Reference Range Interpretation Comments Hct (test code = Hct) 35.9 42.0-54.0 [facility]hamNesltqsBDPFAGGBRK4293-39-33 17:50:00 Test Item Value Reference Range Interpretation Comments Hgb (test code = Hgb) 11.6 14.0-18.0 [facility]hamLzshmpvKZJWUWYAQF8897-83-09 17:50:00 Test Item Value Reference Range Interpretation Comments MCV (test code = MCV) 83.0 80.0-94.0 [facility]hamIfffcvtSWPBSREXKH9676-82-70 17:50:00 Test Item Value Reference Range Interpretation Comments RBC (test code = RBC) 4.32 4.70-6.10 [facility]hamEmqqdxjHUORJYFQUB9137-17-73 17:50:00 Test Item Value Reference Range Interpretation Comments WBC (test code = WBC) 8.7 3.7-10.4 [facility]hamRuxgpmbBDMODWOEDG9227-23-07 17:50:00 Test Item Value Reference Range Interpretation Comments Segs (test code = Segs) 71.2 45.0-75.0 [facility]hamXeiwhqiIQONBZEYQD3920-50-43 17:50:00 Test Item Value Reference Range Interpretation Comments Lymphocytes (test code = Lymphocytes) 18.2 20.0-40.0 [facility]hamPwygjxbUIVBGCQLBH8224-99-99 17:50:00 Test Item Value Reference Range Interpretation Comments Monocytes (test code = Monocytes) 6.8 2.0-12.0 [facility]hamGtghvifFTNYMLCXOF8121-76-41 17:50:00 Test Item Value Reference Range Interpretation Comments Eosinophils (test code = 3.3 See_Comment [A utomated message] The Eosinophils) system which ge nerated this result tra nsmitted reference range : <=4.0. The reference r delaney was not used to int erpret this result as normal/abnormal . [facility]hamBgorzchUBISGYELOJ4096-53-70 17:50:00 Test Item Value Reference Range Interpretation Comments Basophils (test code = 0.5 See_Comment [Aut omated message] The Basophils) system which ge nerated this result tra nsmitted reference range : <=1.0. The reference r delaney was not used to int erpret this result as normal/abnormal . [facility]hamKisbhsjUSUDVZGWYQ4123-62-41 17:50:00 Test Item Value Reference Range Interpretation Comments Segs-Bands # (test code = Segs-Bands #) 6.2 1.5-8.1 [facility]hamYkucxxcPSETQJKLES6871-76-47 17:50:00 Test Item Value Reference Range Interpretation Comments Monocytes # (test code 0.6 See_Comment [Aut omated message] The = Monocytes #) system which generated this result tra nsmitted reference range : <=0.8. The reference r delaney was not used to int erpret this result as normal/abnormal . [facility]hamMhnyzoeZZCSSVJPBW2381-76-89 17:50:00 Test Item Value Reference Range Interpretation Comments Lymphocytes # (test code = Lymphocytes 1.6 1.0-5.5 #) [facility]hamAmaghxqMRNHUAIUBH5935-20-20 17:50:00 Test Item Value Reference Range Interpretation Comments Eosinophils # (test code 0.3 See_Comment [A utomated message] The = Eosinophils #) system whic h generated this result tra nsmitted reference range : <=0.5. The reference r delaney was not used to int erpret this result as normal/abnormal . [facility]hamUosjsqfNSBZFVWABW0825-12-66 17:50:00 Test Item Value Reference Range Interpretation Comments PTT (test code = PTT) 65.2 s 22.9-35.8 [facility]hamVcjziprOVDRHRQUWK6387-79-40 17:50:00 Test Item Value Reference Range Interpretation Comments INR (test code = INR) 1.19 0.85-1.17 [facility]hamWdvfzeqKHTXDKKFCB8958-09-41 17:50:00 Test Item Value Reference Range Interpretation Comments PT (test code = PT) 15.4 s 12.0-14.7 [facility]hamQuofmdpIGKWKBXYXD9507-99-34 17:50:00 Test Item Value Reference Range Interpretation Comments MPV (test code = MPV) 8.9 7.4-10.4 [facility]hamHkxwifiCVTDUUYPAJ7329-60-90 17:50:00 Test Item Value Reference Range Interpretation Comments Platelet (test code = Platelet) 150 133-450 [facility]hamColxoehSDSFGMDBQU8660-48-31 17:50:00 Test Item Value Reference Range Interpretation Comments RDW (test code = RDW) 17.2 11.5-14.5 [facility]hamFvuodjoSAXRZPXUFT2233-90-02 17:50:00 Test Item Value Reference Range Interpretation Comments MCHC (test code = MCHC) 32.3 32.0-36.0 [facility]hamPeeffzhJSPWTTBXSZ4682-36-15 17:50:00 Test Item Value Reference Range Interpretation Comments MCH (test code = MCH) 26.8 pg 27.0-31.0 [facility]hamJvkxjipETPBBYJMQP8295-63-23 17:50:00 Test Item Value Reference Range Interpretation Comments Hct (test code = Hct) 35.9 42.0-54.0 [facility]hamMwszrtxXUZIGMLTBH3862-85-05 17:50:00 Test Item Value Reference Range Interpretation Comments Hgb (test code = Hgb) 11.6 14.0-18.0 [facility]hamVrsyrncMARYDSFJRO9316-66-91 17:50:00 Test Item Value Reference Range Interpretation Comments MCV (test code = MCV) 83.0 80.0-94.0 [facility]hamDzbniomZNCTRDYEDJ0397-55-54 17:50:00 Test Item Value Reference Range Interpretation Comments RBC (test code = RBC) 4.32 4.70-6.10 [facility]hamEucwvhdPHQYLCOUEF8518-65-03 17:50:00 Test Item Value Reference Range Interpretation Comments WBC (test code = WBC) 8.7 3.7-10.4 [facility]hamKexhkmuIZUVOVCXFC1466-25-00 17:50:00 Test Item Value Reference Range Interpretation Comments Segs (test code = Segs) 71.2 45.0-75.0 [facility]hamXpjxsceHQIMMSKJLH7073-31-81 17:50:00 Test Item Value Reference Range Interpretation Comments Lymphocytes (test code = Lymphocytes) 18.2 20.0-40.0 [facility]hamJdpglahLXWVQMWFFA2971-87-14 17:50:00 Test Item Value Reference Range Interpretation Comments Monocytes (test code = Monocytes) 6.8 2.0-12.0 [facility]hamEctwchfGDFLSJRRQY5633-42-98 17:50:00 Test Item Value Reference Range Interpretation Comments Eosinophils (test code = 3.3 See_Comment [A utomated message] The Eosinophils) system which ge nerated this result tra nsmitted reference range : <=4.0. The reference r delaney was not used to int erpret this result as normal/abnormal . [facility]hamPwahocbJWWLGHLTCB5337-76-54 17:50:00 Test Item Value Reference Range Interpretation Comments Basophils (test code = 0.5 See_Comment [Aut omated message] The Basophils) system which ge nerated this result tra nsmitted reference range : <=1.0. The reference r delaney was not used to int erpret this result as normal/abnormal . [facility]hamXkiixihYCYAZDEGCR6721-22-79 17:50:00 Test Item Value Reference Range Interpretation Comments Segs-Bands # (test code = Segs-Bands #) 6.2 1.5-8.1 [facility]hamCirxbtuCQSGWRXFWC9595-56-45 17:50:00 Test Item Value Reference Range Interpretation Comments Monocytes # (test code 0.6 See_Comment [Aut omated message] The = Monocytes #) system which generated this result tra nsmitted reference range : <=0.8. The reference r delaney was not used to int erpret this result as normal/abnormal . [facility]hamKybvwfwBSQHQNHYEN8898-52-40 17:50:00 Test Item Value Reference Range Interpretation Comments Segs (test code = Segs) 71.2 45.0-75.0 [facility]hamZnesnayOOADAZANZN6943-68-12 17:50:00 Test Item Value Reference Range Interpretation Comments Lymphocytes # (test code = Lymphocytes 1.6 1.0-5.5 #) [facility]hamJqwwqosYDPGFXBFCG3297-67-49 17:50:00 Test Item Value Reference Range Interpretation Comments Lymphocytes (test code = Lymphocytes) 18.2 20.0-40.0 [facility]hamDrdjcyfRSJOFMAKFS0387-34-79 17:50:00 Test Item Value Reference Range Interpretation Comments Eosinophils # (test code 0.3 See_Comment [A utomated message] The = Eosinophils #) system wh h generated this result tra nsmitted reference range : <=0.5. The reference r delaney was not used to int erpret this result as normal/abnormal . [facility]hamDpozelpGGQHCHFIRB0773-77-21 17:50:00 Test Item Value Reference Range Interpretation Comments Monocytes (test code = Monocytes) 6.8 2.0-12.0 [facility]hamQlaepfbVVKFVRAUGQ2480-03-78 17:50:00 Test Item Value Reference Range Interpretation Comments PTT (test code = PTT) 65.2 s 22.9-35.8 [facility]hamWzoqesuXSIHLCTCYH9139-79-30 17:50:00 Test Item Value Reference Range Interpretation Comments Eosinophils (test code = 3.3 See_Comment [A utomated message] The Eosinophils) system which ge nerated this result tra nsmitted reference range : <=4.0. The reference r delaney was not used to int erpret this result as normal/abnormal . [facility]hamFrsgascBRLYSXTIGD7397-62-65 17:50:00 Test Item Value Reference Range Interpretation Comments INR (test code = INR) 1.19 0.85-1.17 [facility]hamQdkoyybMWWUOGDVMW6288-33-37 17:50:00 Test Item Value Reference Range Interpretation Comments PT (test code = PT) 15.4 s 12.0-14.7 [facility]hamRgpmcrgCDKHXECGXJ7075-23-15 17:50:00 Test Item Value Reference Range Interpretation Comments Basophils (test code = 0.5 See_Comment [Aut omated message] The Basophils) system which ge nerated this result tra nsmitted reference range : <=1.0. The reference r delaney was not used to int erpret this result as normal/abnormal . [facility]hamNkqxgfyFNETDVDUPC5441-02-11 17:50:00 Test Item Value Reference Range Interpretation Comments MPV (test code = MPV) 8.9 7.4-10.4 [facility]hamOvtpghqRIPZHQULFC5105-78-11 17:50:00 Test Item Value Reference Range Interpretation Comments Segs-Bands # (test code = Segs-Bands #) 6.2 1.5-8.1 [facility]hamYfkpvxkTJFFYKQQSY6232-19-66 17:50:00 Test Item Value Reference Range Interpretation Comments Platelet (test code = Platelet) 150 133-450 [facility]hamZdbqxzdQHBSZCFBAG2617-65-66 17:50:00 Test Item Value Reference Range Interpretation Comments Monocytes # (test code 0.6 See_Comment [Aut omated message] The = Monocytes #) system which generated this result tra nsmitted reference range : <=0.8. The reference r delaney was not used to int erpret this result as normal/abnormal . [facility]hamAgilzmxCCRHUJRKWU8152-50-09 17:50:00 Test Item Value Reference Range Interpretation Comments RDW (test code = RDW) 17.2 11.5-14.5 [facility]hamYzgxfpbIGPMEOOJYK1902-51-00 17:50:00 Test Item Value Reference Range Interpretation Comments Lymphocytes # (test code = Lymphocytes 1.6 1.0-5.5 #) [facility]hamVcatiuxPLUKSZHVHN7828-79-79 17:50:00 Test Item Value Reference Range Interpretation Comments MCHC (test code = MCHC) 32.3 32.0-36.0 [facility]hamCjbfsatRHWFHNGQMS5075-55-54 17:50:00 Test Item Value Reference Range Interpretation Comments Eosinophils # (test code 0.3 See_Comment [A utomated message] The = Eosinophils #) system whic h generated this result tra nsmitted reference range : <=0.5. The reference r delaney was not used to int erpret this result as normal/abnormal . [facility]hamWadlzdpRBTEIMBQGN0326-00-11 17:50:00 Test Item Value Reference Range Interpretation Comments MCH (test code = MCH) 26.8 pg 27.0-31.0 [facility]hamTedcoajGJLUNVRCWY5985-16-73 17:50:00 Test Item Value Reference Range Interpretation Comments PTT (test code = PTT) 65.2 s 22.9-35.8 [facility]hamDglhotpBQRTDQXWYP0228-41-48 17:50:00 Test Item Value Reference Range Interpretation Comments Hct (test code = Hct) 35.9 42.0-54.0 [facility]hamKmgktovSENMJDNXFZ5577-78-34 17:50:00 Test Item Value Reference Range Interpretation Comments Hgb (test code = Hgb) 11.6 14.0-18.0 [facility] BrenhamSzufjamGDGVBPVGCL3678-67-96 17:50:00 Test Item Value Reference Range Interpretation Comments INR (test code = INR) 1.19 0.85-1.17 [facility]hamAmyfposVXWJBICDHO0778-34-86 17:50:00 Test Item Value Reference Range Interpretation Comments MCV (test code = MCV) 83.0 80.0-94.0 [facility] BrenhamLmutorjRNEBHYGBXS2975-65-85 17:50:00 Test Item Value Reference Range Interpretation Comments PT (test code = PT) 15.4 s 12.0-14.7 [facility]hamPoqhwykAFCZUVMRVB3664-99-89 17:50:00 Test Item Value Reference Range Interpretation Comments RBC (test code = RBC) 4.32 4.70-6.10 [facility]hamEhlomkmSOUCLQIPWC6531-93-78 17:50:00 Test Item Value Reference Range Interpretation Comments MPV (test code = MPV) 8.9 7.4-10.4 [facility]hamWtbrchuHUPLNSMBAX3122-80-69 17:50:00 Test Item Value Reference Range Interpretation Comments WBC (test code = WBC) 8.7 3.7-10.4 [facility]hamHyminjuPKWRUOJQRL1470-96-47 17:50:00 Test Item Value Reference Range Interpretation Comments Platelet (test code = Platelet) 150 133-450 [facility] BrenhamTbitpcvUQYOHLFUMY6393-36-85 17:50:00 Test Item Value Reference Range Interpretation Comments RDW (test code = RDW) 17.2 11.5-14.5 [facility]hamQtmltxrIQZDIRBCMJ9928-10-56 17:50:00 Test Item Value Reference Range Interpretation Comments MCHC (test code = MCHC) 32.3 32.0-36.0 [facility]hamJfirbegYHIMPYUPWO6305-23-95 17:50:00 Test Item Value Reference Range Interpretation Comments MCH (test code = MCH) 26.8 pg 27.0-31.0 [facility]hamVklowrvMUYRXLQLKD7218-31-29 17:50:00 Test Item Value Reference Range Interpretation Comments Hct (test code = Hct) 35.9 42.0-54.0 [facility]hamYgmnpatYAIFEUXXXH2805-16-67 17:50:00 Test Item Value Reference Range Interpretation Comments Hgb (test code = Hgb) 11.6 14.0-18.0 [facility]hamKcvgdwlHEOYMJUHVU5396-13-65 17:50:00 Test Item Value Reference Range Interpretation Comments MCV (test code = MCV) 83.0 80.0-94.0 [facility]hamKkbknnzTYSMWDWWBP1054-03-62 17:50:00 Test Item Value Reference Range Interpretation Comments RBC (test code = RBC) 4.32 4.70-6.10 [facility]hamFbbtpxaDYSWNBOYVL4604-79-78 17:50:00 Test Item Value Reference Range Interpretation Comments WBC (test code = WBC) 8.7 3.7-10.4 [facility] ChildrenannCARDIAC [id number] 11:16:00 Test Item Value Reference Range Interpretation Comments Troponin-I (test code 0.13 See_Comment [Auto mated message] The = Troponin-I) system which g enerated this result transmit óscar reference range : <=0.40. The reference r delaney was not used to interpr et this result as kristine l/abnormal. [facility] ChildrenScientific MediaAC [id number] 11:16:00 Test Item Value Reference Range Interpretation Comments Total CK (test code = Total CK) 39 12-191 [facility] ChildrenResolve TherapeuticsCARAC [id number] 11:16:00 Test Item Value Reference Range Interpretation Comments Troponin-T (test code 0.026 See_Comment [Auto mated message] The = Troponin-T) system which g enerated this result transmit óscar reference range : <=0.100. The reference r delaney was not used to interpr et this result as kristine l/abnormal. [facility] ChildrenResolve TherapeuticsCHEM [id number] 11:16:00 Test Item Value Reference Range Interpretation Comments Lactic Acid Lvl (test code = Lactic 1.5 0.5-2.2 Acid Lvl) [facility] Child[id number] 11:16:00 Test Item Value Reference Range Interpretation Comments Myoglobin (test code = Myoglobin) 54 25-72 [facility]burgPunchbowl [id number] 11:16:00 Test Item Value Reference Range Interpretation Comments Troponin-I (test code 0.13 See_Comment [Auto mated message] The = Troponin-I) system which g enerated this result transmit óscar reference range : <=0.40. The reference r delaney was not used to interpr et this result as kristine l/abnormal. [facility] ChildrenScientific MediaAC [id number] 11:16:00 Test Item Value Reference Range Interpretation Comments Total CK (test code = Total CK) 39 12-191 [facility] ChildrenScientific MediaAC [id number] 11:16:00 Test Item Value Reference Range Interpretation Comments Troponin-T (test code 0.026 See_Comment [Auto mated message] The = Troponin-T) system which g enerated this result transmit óscar reference range : <=0.100. The reference r delaney was not used to interpr et this result as kristine l/abnormal. [facility] EdinburgMedTel24 [id number] 11:16:00 Test Item Value Reference Range Interpretation Comments Lactic Acid Lvl (test code = Lactic 1.5 0.5-2.2 Acid Lvl) [facility]villeZkybymyPQLHMQRQU7166-76-92 11:16:00 Test Item Value Reference Range Interpretation Comments Myoglobin (test code = Myoglobin) 54 25-72 [facility] [id number] 11:16:00 Test Item Value Reference Range Interpretation Comments Troponin-I (test code 0.13 See_Comment [Auto mated message] The = Troponin-I) system which g enerated this result transmit óscar reference range : <=0.40. The reference r delaney was not used to interpr et this result as kristine l/abnormal. [facility] [id number] 11:16:00 Test Item Value Reference Range Interpretation Comments Total CK (test code = Total CK) 39 12-191 [facility] [id number] 11:16:00 Test Item Value Reference Range Interpretation Comments Troponin-T (test code 0.026 See_Comment [Auto mated message] The = Troponin-T) system which g enerated this result transmit óscar reference range : <=0.100. The reference r delaney was not used to interpr et this result as kristine l/abnormal. [facility] EdinburgMedTel24 [id number] 11:16:00 Test Item Value Reference Range Interpretation Comments Lactic Acid Lvl (test code = Lactic 1.5 0.5-2.2 Acid Lvl) [facility]villeQxhsefqGJXJYBSVZ7503-12-29 11:16:00 Test Item Value Reference Range Interpretation Comments Myoglobin (test code = Myoglobin) 54 25-72 [facility] [id number] 11:16:00 Test Item Value Reference Range Interpretation Comments Troponin-I (test code 0.13 See_Comment [Auto mated message] The = Troponin-I) system which g enerated this result transmit óscar reference range : <=0.40. The reference r delaney was not used to interpr et this result as kristine l/abnormal. [facility] [id number] 11:16:00 Test Item Value Reference Range Interpretation Comments Total CK (test code = Total CK) 39 12-191 [facility] [id number] 11:16:00 Test Item Value Reference Range Interpretation Comments Troponin-T (test code 0.026 See_Comment [Auto mated message] The = Troponin-T) system which g enerated this result transmit óscar reference range : <=0.100. The reference r delaney was not used to interpr et this result as kristine l/abnormal. [facility] EdinburgMedTel24 [id number] 11:16:00 Test Item Value Reference Range Interpretation Comments Lactic Acid Lvl (test code = Lactic 1.5 0.5-2.2 Acid Lvl) [facility]villePkrfhiaTHVWYVICQ1508-73-13 11:16:00 Test Item Value Reference Range Interpretation Comments Myoglobin (test code = Myoglobin) 54 25-72 [facility] [id number] 11:16:00 Test Item Value Reference Range Interpretation Comments Troponin-I (test code 0.13 See_Comment [Auto mated message] The = Troponin-I) system which g enerated this result transmit óscar reference range : <=0.40. The reference r delaney was not used to interpr et this result as kristine l/abnormal. [facility] [id number] 11:16:00 Test Item Value Reference Range Interpretation Comments Total CK (test code = Total CK) 39 12-191 [facility] [id number] 11:16:00 Test Item Value Reference Range Interpretation Comments Troponin-T (test code 0.026 See_Comment [Auto mated message] The = Troponin-T) system which g enerated this result transmit óscar reference range : <=0.100. The reference r delaney was not used to interpr et this result as kristine l/abnormal. [facility]burgMedTel24 [id number] 11:16:00 Test Item Value Reference Range Interpretation Comments Lactic Acid Lvl (test code = Lactic 1.5 0.5-2.2 Acid Lvl) [facility]villeEbfxykpRSXNXZRXG3171-03-78 11:16:00 Test Item Value Reference Range Interpretation Comments Myoglobin (test code = Myoglobin) 54 25-72 [facility] ChildrenannCARDIAC [id number] 11:16:00 Test Item Value Reference Range Interpretation Comments Troponin-I (test code 0.13 See_Comment [Auto mated message] The = Troponin-I) system which g enerated this result transmit óscar reference range : <=0.40. The reference r delaney was not used to interpr et this result as kristine l/abnormal. [facility] ChildrenannCARAC [id number] 11:16:00 Test Item Value Reference Range Interpretation Comments Total CK (test code = Total CK) 39 12-191 [facility] [id number] 11:16:00 Test Item Value Reference Range Interpretation Comments Troponin-T (test code 0.026 See_Comment [Auto mated message] The = Troponin-T) system which g enerated this result transmit óscar reference range : <=0.100. The reference r delaney was not used to interpr et this result as kristine l/abnormal. [facility] ChildrenLoomia [id number] 11:16:00 Test Item Value Reference Range Interpretation Comments Lactic Acid Lvl (test code = Lactic 1.5 0.5-2.2 Acid Lvl) [facility]burgHqwhlmuPDIKDTUFY1718-73-06 11:16:00 Test Item Value Reference Range Interpretation Comments Myoglobin (test code = Myoglobin) 54 25-72 [facility] Ed[facility]burgMedTel24 [id number] 07:20:00 Test Item Value Reference Range Interpretation Comments Lactic Acid Lvl (test code = Lactic 2.2 0.5-2.2 Acid Lvl) [facility]burgMedTel24 [id number] 07:20:00 Test Item Value Reference Range Interpretation Comments Lactic Acid Lvl (test code = Lactic 2.2 0.5-2.2 Acid Lvl) [facility]burgMedTel24 [id number] 07:20:00 Test Item Value Reference Range Interpretation Comments Lactic Acid Lvl (test code = Lactic 2.2 0.5-2.2 Acid Lvl) [facility]burgMedTel24 [id number] 07:20:00 Test Item Value Reference Range Interpretation Comments Lactic Acid Lvl (test code = Lactic 2.2 0.5-2.2 Acid Lvl) [facility]burgMedTel24 [id number] 07:20:00 Test Item Value Reference Range Interpretation Comments Lactic Acid Lvl (test code = Lactic 2.2 0.5-2.2 Acid Lvl) [facility] [employer] [id number] 07:20:00 Test Item Value Reference Range Interpretation Comments Lactic Acid Lvl (test code = Lactic 2.2 0.5-2.2 Acid Lvl) [facility] [employer] LoveBACTERIAL - [id number] 07:06:00 Test Item Value Reference Range Interpretation Comments MRSA by PCR (test Positive 1*ABN*(08/16/16 code = MRSA by PCR) 1:06 AM) [facility] [employer] [id number] 07:06:00 Test Item Value Reference Range Interpretation Comments Antibody Scrn (test Negative (08/16/16 1:06 code = Antibody Scrn) AM) [facility] [employer] [id number] 07:06:00 Test Item Value Reference Range Interpretation Comments ABO/Rh (test code = ABO/Rh) A NEG [facility] [employer] [id number] 07:06:00 Test Item Value Reference Range Interpretation Comments Troponin-I (test code 0.05 See_Comment [Auto mated message] The = Troponin-I) system which g enerated this result transmit óscar reference range : <=0.40. The reference r delaney was not used to interpr et this result as kristine l/abnormal. [facility] [employer] [id number] 07:06:00 Test Item Value Reference Range Interpretation Comments Total CK (test code = Total CK) 40 12-191 [facility] [employer] [id number] 07:06:00 Test Item Value Reference Range Interpretation Comments Troponin-T (test code no gt See_Comment [Auto mated message] The = Troponin-T) system which g enerated this result transmit óscar reference range : <=0.100. The reference r delaney was not used to interpr et this result as kristine l/abnormal. [employer]2017-01-23 07:06:00 Test Item Value Reference Range Interpretation Comments A/G Ratio (test code = A/G Ratio) 1.0 0.7-1.6 [facility] [employer] [place]2017-01-23 07:06:00 Test Item Value Reference Range Interpretation Comments Globulin (test code = Globulin) 3.2 2.7-4.2 [facility]2017-01-23 07:06:00 Test Item Value Reference Range Interpretation Comments B/C Ratio (test code = B/C Ratio) 115 6-25 [facility]2017-01-23 07:06:00 Test Item Value Reference Range Interpretation Comments Total Protein (test code = Total 6.4 6.4-8.4 Protein) [facility]2017-01-23 07:06:00 Test Item Value Reference Range Interpretation Comments AST (test code = AST) 6 See_Comment [Auto mated message] The system which ge nerated this result transmit óscar reference range : <=37. The reference range was not used to interpr et this result as kristine l/abnormal. [facility]2017-01-23 07:06:00 Test Item Value Reference Range Interpretation Comments Bili Total (test code = Bili Total) 0.4 0.2-1.3 [facility]2017-01-23 07:06:00 Test Item Value Reference Range Interpretation Comments Albumin Lvl (test code = Albumin Lvl) 3.2 3.5-5.0 [facility]2017-01-23 07:06:00 Test Item Value Reference Range Interpretation Comments Alk Phos (test code = Alk Phos) 79 39-136 [facility]2017-01-23 07:06:00 Test Item Value Reference Range Interpretation Comments ALT (test code = ALT) 20 See_Comment [Auto mated message] The system which ge nerated this result transmit óscar reference range : <=65. The reference range was not used to interpr et this result as kristine l/abnormal. [facility] [id number] 07:06:00 Test Item Value Reference Range Interpretation Comments Chol (test code = Chol) 69 [facility] [id number] 07:06:00 Test Item Value Reference Range Interpretation Comments Trig (test code = Trig) 50 [facility] [id number] 07:06:00 Test Item Value Reference Range Interpretation Comments HDL (test code = HDL) 33 [facility] [id number] 07:06:00 Test Item Value Reference Range Interpretation Comments LDL (Calculated) (test code = LDL 26 (Calculated)) [id number] 07:06:00 Test Item Value Reference Range Interpretation Comments CHD Risk (test code = CHD Risk) 2.09 4.00-7.30 [facility] ChildrenZlabvuwGJXJGE6514-04-27 07:06:00 Test Item Value Reference Range Interpretation Comments VLDL (test code = VLDL) 10 [facility][id number] 07:06:00 Test Item Value Reference Range Interpretation Comments Myoglobin (test code = Myoglobin) 37 25-72 [facility]inburgPARATHYROID [id number] 07:06:00 Test Item Value Reference Range Interpretation Comments Ca Ion WB (test code = Ca Ion WB) 1.33 1.05-1.25 [facility]burgPARATHYROID [id number] 07:06:00 Test Item Value Reference Range Interpretation Comments Ca Norm WB (test code = Ca Norm WB) 1.25 1.05-1.25 [facility]burgSPECIAL [id number] 07:06:00 Test Item Value Reference Range Interpretation Comments Hgb A1C (test code = Hgb A1C) 6.5 [facility] AND [id number] 07:06:00 Test Item Value Reference Range Interpretation Comments UA Urobilinogen (test code = UA <=1.0 mg/dL 0.1-1.0 Urobilinogen) [facility] AND [id number] 07:06:00 Test Item Value Reference Range Interpretation Comments UA Turbidity (test code = Clear (08/16/16 1:06 UA Turbidity) AM) [facility] AND [id number] 07:06:00 Test Item Value Reference Range Interpretation Comments UA Spec Grav (test code = UA Spec Grav) 1.016 [facility] AND [id number] 07:06:00 Test Item Value Reference Range Interpretation Comments UA Protein (test code = UA Negative mg/dL Protein) [facility] AND [id number] 07:06:00 Test Item Value Reference Range Interpretation Comments UA pH (test code = UA pH) 5.5 5.0-8.0 [facility] AND [id number] 07:06:00 Test Item Value Reference Range Interpretation Comments UA Color (test code = Yellow *NA*(08/16/16 UA Color) 1:06 AM) [facility] AND [id number] 07:06:00 Test Item Value Reference Range Interpretation Comments UA CaOx Kelli (test code = UA Occasional /HPF CaOx Kelli) [facility] AND [id number] 07:06:00 Test Item Value Reference Range Interpretation Comments UA WBC (test code = 2 See_Comment [Automa óscar message] The UA WBC) system which ge nerated this result transmit óscar reference range : <=5. The reference range was not used to interpr et this result as kristine l/abnormal. [facility] AND [id number] 07:06:00 Test Item Value Reference Range Interpretation Comments UA Mucus (test code = UA Mucus) Few /LPF [facility] AND [id number] 07:06:00 Test Item Value Reference Range Interpretation Comments UA Leuk Est (test Negative (08/16/16 1:06 code = UA Leuk Est) AM) [facility] AND [id number] 07:06:00 Test Item Value Reference Range Interpretation Comments UA RBC (test code = 1 See_Comment [Automa óscar message] The UA RBC) system which ge nerated this result transmit óscar reference range : <=2. The reference range was not used to interpr et this result as kristine l/abnormal. [facility] AND [id number] 07:06:00 Test Item Value Reference Range Interpretation Comments UA Blood (test code = Negative (08/16/16 1:06 UA Blood) AM) [facility] AND [id number] 07:06:00 Test Item Value Reference Range Interpretation Comments UA Glucose (test code = UA Glucose) 50 mg/dL [facility] AND [id number] 07:06:00 Test Item Value Reference Range Interpretation Comments UA Bili (test code = Negative *NA*(08/16/16 UA Bili) 1:06 AM) [facility] AND [id number] 07:06:00 Test Item Value Reference Range Interpretation Comments UA Ketones (test code = UA Negative mg/dL Ketones) [facility] AND [id number] 07:06:00 Test Item Value Reference Range Interpretation Comments UA Nitrite (test code Negative (1/23/17 1:06 = UA Nitrite) AM) [facility] [id number] 07:06:00 Test Item Value Reference Range Interpretation Comments UA Sq Epi (test code = UA Sq Epi) None Seen [facility] AND [id number] 07:06:00 Test Item Value Reference Range Interpretation Comments UA Hyal Cast (test 4 See_Comment [Automat ed message] The code = UA Hyal Cast) system which generated this result transmit óscar reference range : <=2. The reference range was not used to interpr et this result as kristine l/abnormal. [facility] [employer]BACT[employer] - [id number] 07:06:00 Test Item Value Reference Range Interpretation Comments MRSA by PCR (test Positive 1*ABN*(08/16/16 code = MRSA by PCR) 1:06 AM) [facility] [employer] [id number] 07:06:00 Test Item Value Reference Range Interpretation Comments Antibody Scrn (test Negative (08/16/16 1:06 code = Antibody Scrn) AM) [facility] [employer] [id number] 07:06:00 Test Item Value Reference Range Interpretation Comments ABO/Rh (test code = ABO/Rh) A NEG [facility] [employer] [id number] 07:06:00 Test Item Value Reference Range Interpretation Comments Troponin-I (test code 0.05 See_Comment [Auto mated message] The = Troponin-I) system which g enerated this result transmit óscar reference range : <=0.40. The reference r delaney was not used to interpr et this result as kristine l/abnormal. [employer] [id number] 07:06:00 Test Item Value Reference Range Interpretation Comments Total CK (test code = Total CK) 40 12-191 [facility] [employer] [id number] 07:06:00 Test Item Value Reference Range Interpretation Comments Troponin-T (test code no gt See_Comment [Auto mated message] The = Troponin-T) system which g enerated this result transmit óscar reference range : <=0.100. The reference r delaney was not used to interpr et this result as kristine l/abnormal. [employer]CHE[employer] [id number] 07:06:00 Test Item Value Reference Range Interpretation Comments A/G Ratio (test code = A/G Ratio) 1.0 0.7-1.6 [facility]2017-01-23 07:06:00 Test Item Value Reference Range Interpretation Comments Globulin (test code = Globulin) 3.2 2.7-4.2 [facility]2017-01-23 07:06:00 Test Item Value Reference Range Interpretation Comments B/C Ratio (test code = B/C Ratio) 115 6-25 [facility]2017-01-23 07:06:00 Test Item Value Reference Range Interpretation Comments Total Protein (test code = Total 6.4 6.4-8.4 Protein) [facility]2017-01-23 07:06:00 Test Item Value Reference Range Interpretation Comments AST (test code = AST) 6 See_Comment [Auto mated message] The system which ge nerated this result transmit óscar reference range : <=37. The reference range was not used to interpr et this result as kristine l/abnormal. [facility]2017-01-23 07:06:00 Test Item Value Reference Range Interpretation Comments Bili Total (test code = Bili Total) 0.4 0.2-1.3 [facility]2017-01-23 07:06:00 Test Item Value Reference Range Interpretation Comments Albumin Lvl (test code = Albumin Lvl) 3.2 3.5-5.0 [facility]2017-01-23 07:06:00 Test Item Value Reference Range Interpretation Comments Alk Phos (test code = Alk Phos) 79 39-136 [facility]2017-01-23 07:06:00 Test Item Value Reference Range Interpretation Comments ALT (test code = ALT) 20 See_Comment [Auto mated message] The system which ge nerated this result transmit óscar reference range : <=65. The reference range was not used to interpr et this result as kristine l/abnormal. [facility] [id number] 07:06:00 Test Item Value Reference Range Interpretation Comments Chol (test code = Chol) 69 [facility] [id number] 07:06:00 Test Item Value Reference Range Interpretation Comments Trig (test code = Trig) 50 [place] [id number] 07:06:00 Test Item Value Reference Range Interpretation Comments HDL (test code = HDL) 33 [facility] [id number] 07:06:00 Test Item Value Reference Range Interpretation Comments LDL (Calculated) (test code = LDL 26 (Calculated)) [facility] [id number] 07:06:00 Test Item Value Reference Range Interpretation Comments CHD Risk (test code = CHD Risk) 2.09 4.00-7.30 [facility] [id number] 07:06:00 Test Item Value Reference Range Interpretation Comments VLDL (test code = VLDL) 10 [facility] [id number] 07:06:00 Test Item Value Reference Range Interpretation Comments Myoglobin (test code = Myoglobin) 37 25-72 [facility] EdinburgPARATHYROID [id number] 07:06:00 Test Item Value Reference Range Interpretation Comments Ca Ion WB (test code = Ca Ion WB) 1.33 1.05-1.25 [facility]burgPARATHYROID [id number] 07:06:00 Test Item Value Reference Range Interpretation Comments Ca Norm WB (test code = Ca Norm WB) 1.25 1.05-1.25 [facility]burgSPECIAL [id number] 07:06:00 Test Item Value Reference Range Interpretation Comments Hgb A1C (test code = Hgb A1C) 6.5 [facility] AND [id number] 07:06:00 Test Item Value Reference Range Interpretation Comments UA Urobilinogen (test code = UA <=1.0 mg/dL 0.1-1.0 Urobilinogen) [facility] AND [id number] 07:06:00 Test Item Value Reference Range Interpretation Comments UA Turbidity (test code = Clear (08/16/16 1:06 UA Turbidity) AM) [facility] AND [id number] 07:06:00 Test Item Value Reference Range Interpretation Comments UA Spec Grav (test code = UA Spec Grav) 1.016 [facility] AND [id number] 07:06:00 Test Item Value Reference Range Interpretation Comments UA Protein (test code = UA Negative mg/dL Protein) [facility] AND [id number] 07:06:00 Test Item Value Reference Range Interpretation Comments UA pH (test code = UA pH) 5.5 5.0-8.0 [facility] AND [id number] 07:06:00 Test Item Value Reference Range Interpretation Comments UA Color (test code = Yellow *NA*(08/16/16 UA Color) 1:06 AM) [facility] AND [id number] 07:06:00 Test Item Value Reference Range Interpretation Comments UA CaOx Kelli (test code = UA Occasional /HPF CaOx Kelli) [facility] AND [id number] 07:06:00 Test Item Value Reference Range Interpretation Comments UA WBC (test code = 2 See_Comment [Automa óscar message] The UA WBC) system which ge nerated this result transmit óscar reference range : <=5. The reference range was not used to interpr et this result as kristine l/abnormal. [facility] AND [id number] 07:06:00 Test Item Value Reference Range Interpretation Comments UA Mucus (test code = UA Mucus) Few /LPF [facility] AND [id number] 07:06:00 Test Item Value Reference Range Interpretation Comments UA Leuk Est (test Negative (08/16/16 1:06 code = UA Leuk Est) AM) [facility] AND [id number] 07:06:00 Test Item Value Reference Range Interpretation Comments UA RBC (test code = 1 See_Comment [Automa óscar message] The UA RBC) system which ge nerated this result transmit óscar reference range : <=2. The reference range was not used to interpr et this result as kristine l/abnormal. [facility] AND [id number] 07:06:00 Test Item Value Reference Range Interpretation Comments UA Blood (test code = Negative (08/16/16 1:06 UA Blood) AM) [facility] AND [id number] 07:06:00 Test Item Value Reference Range Interpretation Comments UA Glucose (test code = UA Glucose) 50 mg/dL [facility] AND [id number] 07:06:00 Test Item Value Reference Range Interpretation Comments UA Bili (test code = Negative *NA*(08/16/16 UA Bili) 1:06 AM) [facility] AND [id number] 07:06:00 Test Item Value Reference Range Interpretation Comments UA Ketones (test code = UA Negative mg/dL Ketones) [facility] AND [id number] 07:06:00 Test Item Value Reference Range Interpretation Comments UA Nitrite (test code Negative (08/16/16 1:06 = UA Nitrite) AM) [facility] AND [id number] 07:06:00 Test Item Value Reference Range Interpretation Comments UA Sq Epi (test code = UA Sq Epi) None Seen [facility] AND [id number] 07:06:00 Test Item Value Reference Range Interpretation Comments UA Hyal Cast (test 4 See_Comment [Automat ed message] The code = UA Hyal Cast) system which generated this result transmit óscar reference range : <=2. The reference range was not used to interpr et this result as kristine l/abnormal. [facility] Children[facility] TherapeuticsBACTERIAL - [id number] 07:06:00 Test Item Value Reference Range Interpretation Comments MRSA by PCR (test Positive 1*ABN*(08/16/16 code = MRSA by PCR) 1:06 AM) [facility] [employer] [id number] 07:06:00 Test Item Value Reference Range Interpretation Comments Antibody Scrn (test Negative (08/16/16 1:06 code = Antibody Scrn) AM) [facility] [employer] [id number] 07:06:00 Test Item Value Reference Range Interpretation Comments ABO/Rh (test code = ABO/Rh) A NEG [facility] [id number] 07:06:00 Test Item Value Reference Range Interpretation Comments Troponin-I (test code 0.05 See_Comment [Auto mated message] The = Troponin-I) system which g enerated this result transmit óscar reference range : <=0.40. The reference r delaney was not used to interpr et this result as kristine l/abnormal. [facility] [employer] [id number] 07:06:00 Test Item Value Reference Range Interpretation Comments Total CK (test code = Total CK) 40 12-191 [facility] [id number] 07:06:00 Test Item Value Reference Range Interpretation Comments Troponin-T (test code no gt See_Comment [Auto mated message] The = Troponin-T) system which g enerated this result transmit óscar reference range : <=0.100. The reference r delaney was not used to interpr et this result as kristine l/abnormal. [facility]2017-01-23 07:06:00 Test Item Value Reference Range Interpretation Comments A/G Ratio (test code = A/G Ratio) 1.0 0.7-1.6 [facility]2017-01-23 07:06:00 Test Item Value Reference Range Interpretation Comments Globulin (test code = Globulin) 3.2 2.7-4.2 [facility]2017-01-23 07:06:00 Test Item Value Reference Range Interpretation Comments B/C Ratio (test code = B/C Ratio) 115 6-25 [facility]2017-01-23 07:06:00 Test Item Value Reference Range Interpretation Comments Total Protein (test code = Total 6.4 6.4-8.4 Protein) [facility]2017-01-23 07:06:00 Test Item Value Reference Range Interpretation Comments AST (test code = AST) 6 See_Comment [Auto mated message] The system which ge nerated this result transmit óscar reference range : <=37. The reference range was not used to interpr et this result as kristine l/abnormal. [facility]2017-01-23 07:06:00 Test Item Value Reference Range Interpretation Comments Bili Total (test code = Bili Total) 0.4 0.2-1.3 [facility]2017-01-23 07:06:00 Test Item Value Reference Range Interpretation Comments Albumin Lvl (test code = Albumin Lvl) 3.2 3.5-5.0 [facility]2017-01-23 07:06:00 Test Item Value Reference Range Interpretation Comments Alk Phos (test code = Alk Phos) 79 39-136 [facility]2017-01-23 07:06:00 Test Item Value Reference Range Interpretation Comments ALT (test code = ALT) 20 See_Comment [Auto mated message] The system which ge nerated this result transmit óscar reference range : <=65. The reference range was not used to interpr et this result as kristine l/abnormal. [facility] [id number] 07:06:00 Test Item Value Reference Range Interpretation Comments Chol (test code = Chol) 69 [facility] [id number] 07:06:00 Test Item Value Reference Range Interpretation Comments Trig (test code = Trig) 50 [facility] [id number] 07:06:00 Test Item Value Reference Range Interpretation Comments HDL (test code = HDL) 33 [id number] 07:06:00 Test Item Value Reference Range Interpretation Comments LDL (Calculated) (test code = LDL 26 (Calculated)) [facility] [id number] 07:06:00 Test Item Value Reference Range Interpretation Comments CHD Risk (test code = CHD Risk) 2.09 4.00-7.30 [facility] [id number] 07:06:00 Test Item Value Reference Range Interpretation Comments VLDL (test code = VLDL) 10 [facility] [id number] 07:06:00 Test Item Value Reference Range Interpretation Comments Myoglobin (test code = Myoglobin) 37 25-72 [facility]burgPARATHYROID [id number] 07:06:00 Test Item Value Reference Range Interpretation Comments Ca Ion WB (test code = Ca Ion WB) 1.33 1.05-1.25 [facility] ChildrenannPARATHYROID [id number] 07:06:00 Test Item Value Reference Range Interpretation Comments Ca Norm WB (test code = Ca Norm WB) 1.25 1.05-1.25 [facility]burgSPECIAL [id number] 07:06:00 Test Item Value Reference Range Interpretation Comments Hgb A1C (test code = Hgb A1C) 6.5 [facility] AND [id number] 07:06:00 Test Item Value Reference Range Interpretation Comments UA Urobilinogen (test code = UA <=1.0 mg/dL 0.1-1.0 Urobilinogen) [facility] [id number] 07:06:00 Test Item Value Reference Range Interpretation Comments UA Turbidity (test code = Clear (08/16/16 1:06 UA Turbidity) AM) [facility] AND [id number] 07:06:00 Test Item Value Reference Range Interpretation Comments UA Spec Grav (test code = UA Spec Grav) 1.016 [facility]annCAP[facility] AND [id number] 07:06:00 Test Item Value Reference Range Interpretation Comments UA Protein (test code = UA Negative mg/dL Protein) [facility] AND [id number] 07:06:00 Test Item Value Reference Range Interpretation Comments UA pH (test code = UA pH) 5.5 5.0-8.0 [facility] AND [id number] 07:06:00 Test Item Value Reference Range Interpretation Comments UA Color (test code = Yellow *NA*(08/16/16 UA Color) 1:06 AM) [facility] AND [id number] 07:06:00 Test Item Value Reference Range Interpretation Comments UA CaOx Kelli (test code = UA Occasional /HPF CaOx Kelli) [facility] AND [id number] 07:06:00 Test Item Value Reference Range Interpretation Comments UA WBC (test code = 2 See_Comment [Automa óscar message] The UA WBC) system which ge nerated this result transmit óscar reference range : <=5. The reference range was not used to interpr et this result as kristine l/abnormal. [facility] AND [id number] 07:06:00 Test Item Value Reference Range Interpretation Comments UA Mucus (test code = UA Mucus) Few /LPF [facility] AND [id number] 07:06:00 Test Item Value Reference Range Interpretation Comments UA Leuk Est (test Negative (08/16/16 1:06 code = UA Leuk Est) AM) [facility] AND [id number] 07:06:00 Test Item Value Reference Range Interpretation Comments UA RBC (test code = 1 See_Comment [Automa óscar message] The UA RBC) system which ge nerated this result transmit óscar reference range : <=2. The reference range was not used to interpr et this result as kristine l/abnormal. [facility] AND [id number] 07:06:00 Test Item Value Reference Range Interpretation Comments UA Blood (test code = Negative (08/16/16 1:06 UA Blood) AM) [facility] AND [id number] 07:06:00 Test Item Value Reference Range Interpretation Comments UA Glucose (test code = UA Glucose) 50 mg/dL [facility] AND [id number] 07:06:00 Test Item Value Reference Range Interpretation Comments UA Bili (test code = Negative *NA*(08/16/16 UA Bili) 1:06 AM) [facility] AND [id number] 07:06:00 Test Item Value Reference Range Interpretation Comments UA Ketones (test code = UA Negative mg/dL Ketones) [facility] AND [id number] 07:06:00 Test Item Value Reference Range Interpretation Comments UA Nitrite (test code Negative (08/16/16 1:06 = UA Nitrite) AM) [facility] AND [id number] 07:06:00 Test Item Value Reference Range Interpretation Comments UA Sq Epi (test code = UA Sq Epi) None Seen [facility] AND [id number] 07:06:00 Test Item Value Reference Range Interpretation Comments UA Hyal Cast (test 4 See_Comment [Automat ed message] The code = UA Hyal Cast) system which generated this result transmit óscar reference range : <=2. The reference range was not used to interpr et this result as kristine l/abnormal. [facility] ChildrenResolve TherapeuticsBACTERIAL - [id number] 07:06:00 Test Item Value Reference Range Interpretation Comments MRSA by PCR (test Positive 1*ABN*(08/16/16 code = MRSA by PCR) 1:06 AM) [facility] [employer] [id number] 07:06:00 Test Item Value Reference Range Interpretation Comments Antibody Scrn (test Negative (08/16/16 1:06 code = Antibody Scrn) AM) [facility] [employer] [id number] 07:06:00 Test Item Value Reference Range Interpretation Comments ABO/Rh (test code = ABO/Rh) A NEG [facility] [employer] [id number] 07:06:00 Test Item Value Reference Range Interpretation Comments Troponin-I (test code 0.05 See_Comment [Auto mated message] The = Troponin-I) system which g enerated this result transmit óscar reference range : <=0.40. The reference r delaney was not used to interpr et this result as kristine l/abnormal. [facility] [employer] [id number] 07:06:00 Test Item Value Reference Range Interpretation Comments Total CK (test code = Total CK) 40 12-191 [facility] [id number] 07:06:00 Test Item Value Reference Range Interpretation Comments Troponin-T (test code no gt See_Comment [Auto mated message] The = Troponin-T) system which g enerated this result transmit óscar reference range : <=0.100. The reference r delaney was not used to interpr et this result as kristine l/abnormal. [facility] ChildrenL[facility] [id number] 07:06:00 Test Item Value Reference Range Interpretation Comments A/G Ratio (test code = A/G Ratio) 1.0 0.7-1.6 [facility] ChildrenL[facility] [id number] 07:06:00 Test Item Value Reference Range Interpretation Comments Globulin (test code = Globulin) 3.2 2.7-4.2 [facility] ChildrenL[facility] [id number] 07:06:00 Test Item Value Reference Range Interpretation Comments B/C Ratio (test code = B/C Ratio) 115 6-25 [facility] [id number] 07:06:00 Test Item Value Reference Range Interpretation Comments Total Protein (test code = Total 6.4 6.4-8.4 Protein) [facility]burgMedTel24 [id number] 07:06:00 Test Item Value Reference Range Interpretation Comments AST (test code = AST) 6 See_Comment [Auto mated message] The system which ge nerated this result transmit óscar reference range : <=37. The reference range was not used to interpr et this result as kristine l/abnormal. [facility] ChildrenL[facility] [id number] 07:06:00 Test Item Value Reference Range Interpretation Comments Bili Total (test code = Bili Total) 0.4 0.2-1.3 [facility] ChildrenL[facility] [id number] 07:06:00 Test Item Value Reference Range Interpretation Comments Albumin Lvl (test code = Albumin Lvl) 3.2 3.5-5.0 [facility] [id number] 07:06:00 Test Item Value Reference Range Interpretation Comments Alk Phos (test code = Alk Phos) 79 39-136 [facility] [id number] 07:06:00 Test Item Value Reference Range Interpretation Comments ALT (test code = ALT) 20 See_Comment [Auto mated message] The system which ge nerated this result transmit óscar reference range : <=65. The reference range was not used to interpr et this result as kristine l/abnormal. [facility] [id number] 07:06:00 Test Item Value Reference Range Interpretation Comments Chol (test code = Chol) 69 [facility] [id number] 07:06:00 Test Item Value Reference Range Interpretation Comments Trig (test code = Trig) 50 [facility] [id number] 07:06:00 Test Item Value Reference Range Interpretation Comments HDL (test code = HDL) 33 [facility] [id number] 07:06:00 Test Item Value Reference Range Interpretation Comments LDL (Calculated) (test code = LDL 26 (Calculated)) [facility] [id number] 07:06:00 Test Item Value Reference Range Interpretation Comments CHD Risk (test code = CHD Risk) 2.09 4.00-7.30 [facility] [id number] 07:06:00 Test Item Value Reference Range Interpretation Comments VLDL (test code = VLDL) 10 [facility] [id number] 07:06:00 Test Item Value Reference Range Interpretation Comments Myoglobin (test code = Myoglobin) 37 25-72 [facility] ChildrenannPARATHYROID [id number] 07:06:00 Test Item Value Reference Range Interpretation Comments Ca Ion WB (test code = Ca Ion WB) 1.33 1.05-1.25 [facility] ChildrenannPARATHYROID [id number] 07:06:00 Test Item Value Reference Range Interpretation Comments Ca Norm WB (test code = Ca Norm WB) 1.25 1.05-1.25 [facility]burgSPECIAL [id number] 07:06:00 Test Item Value Reference Range Interpretation Comments Hgb A1C (test code = Hgb A1C) 6.5 [facility] ChildrenannURINE AND [id number] 07:06:00 Test Item Value Reference Range Interpretation Comments UA Urobilinogen (test code = UA <=1.0 mg/dL 0.1-1.0 Urobilinogen) [facility] ChildrenannURINE AND [id number] 07:06:00 Test Item Value Reference Range Interpretation Comments UA Turbidity (test code = Clear (08/16/16 1:06 UA Turbidity) AM) [facility] AND [id number] 07:06:00 Test Item Value Reference Range Interpretation Comments UA Spec Grav (test code = UA Spec Grav) 1.016 [facility] AND [id number] 07:06:00 Test Item Value Reference Range Interpretation Comments UA Protein (test code = UA Negative mg/dL Protein) [facility] AND [id number] 07:06:00 Test Item Value Reference Range Interpretation Comments UA pH (test code = UA pH) 5.5 5.0-8.0 [facility] AND [id number] 07:06:00 Test Item Value Reference Range Interpretation Comments UA Color (test code = Yellow *NA*(08/16/16 UA Color) 1:06 AM) [facility] AND [id number] 07:06:00 Test Item Value Reference Range Interpretation Comments UA CaOx Kelli (test code = UA Occasional /HPF CaOx Kelli) [facility] AND [id number] 07:06:00 Test Item Value Reference Range Interpretation Comments UA WBC (test code = 2 See_Comment [Automa óscar message] The UA WBC) system which ge nerated this result transmit óscar reference range : <=5. The reference range was not used to interpr et this result as kristine l/abnormal. [facility] AND [id number] 07:06:00 Test Item Value Reference Range Interpretation Comments UA Mucus (test code = UA Mucus) Few /LPF [facility] AND [id number] 07:06:00 Test Item Value Reference Range Interpretation Comments UA Leuk Est (test Negative (08/16/16 1:06 code = UA Leuk Est) AM) [facility] AND [id number] 07:06:00 Test Item Value Reference Range Interpretation Comments UA RBC (test code = 1 See_Comment [Automa óscar message] The UA RBC) system which ge nerated this result transmit óscar reference range : <=2. The reference range was not used to interpr et this result as kristine l/abnormal. [facility] AND [id number] 07:06:00 Test Item Value Reference Range Interpretation Comments UA Blood (test code = Negative (08/16/16 1:06 UA Blood) AM) [facility] AND [id number] 07:06:00 Test Item Value Reference Range Interpretation Comments UA Glucose (test code = UA Glucose) 50 mg/dL [facility] AND [id number] 07:06:00 Test Item Value Reference Range Interpretation Comments UA Bili (test code = Negative *NA*(08/16/16 UA Bili) 1:06 AM) [facility] AND [id number] 07:06:00 Test Item Value Reference Range Interpretation Comments UA Ketones (test code = UA Negative mg/dL Ketones) [facility] AND [id number] 07:06:00 Test Item Value Reference Range Interpretation Comments UA Nitrite (test code Negative (08/16/16 1:06 = UA Nitrite) AM) [facility] AND [id number] 07:06:00 Test Item Value Reference Range Interpretation Comments UA Sq Epi (test code = UA Sq Epi) None Seen [facility] AND [id number] 07:06:00 Test Item Value Reference Range Interpretation Comments UA Hyal Cast (test 4 See_Comment [Automat ed message] The code = UA Hyal Cast) system which generated this result transmit óscar reference range : <=2. The reference range was not used to interpr et this result as kristine l/abnormal. [facility]burgBACTERIAL - [id number] 07:06:00 Test Item Value Reference Range Interpretation Comments MRSA by PCR (test Positive 1*ABN*(08/16/16 code = MRSA by PCR) 1:06 AM) [facility] Children[facility] [id number] 07:06:00 Test Item Value Reference Range Interpretation Comments Antibody Scrn (test Negative (08/16/16 1:06 code = Antibody Scrn) AM) [facility] [id number] 07:06:00 Test Item Value Reference Range Interpretation Comments ABO/Rh (test code = ABO/Rh) A NEG [facility]burgCARDIAC [id number] 07:06:00 Test Item Value Reference Range Interpretation Comments Troponin-I (test code 0.05 See_Comment [Auto mated message] The = Troponin-I) system which g enerated this result transmit óscar reference range : <=0.40. The reference r delaney was not used to interpr et this result as kristine l/abnormal. [employer] [id number] 07:06:00 Test Item Value Reference Range Interpretation Comments Total CK (test code = Total CK) 40 12-191 [employer] [id number] 07:06:00 Test Item Value Reference Range Interpretation Comments Troponin-T (test code no gt See_Comment [Auto mated message] The = Troponin-T) system which g enerated this result transmit óscar reference range : <=0.100. The reference r delaney was not used to interpr et this result as kristine l/abnormal. [employer] [id number] 07:06:00 Test Item Value Reference Range Interpretation Comments A/G Ratio (test code = A/G Ratio) 1.0 0.7-1.6 [employer] DrummBACTERIAL - [id number] 07:06:00 Test Item Value Reference Range Interpretation Comments MRSA by PCR (test Positive 1*ABN*(08/16/16 code = MRSA by PCR) 1:06 AM) [employer] [id number] 07:06:00 Test Item Value Reference Range Interpretation Comments Globulin (test code = Globulin) 3.2 2.7-4.2 [employer] [id number] 07:06:00 Test Item Value Reference Range Interpretation Comments Antibody Scrn (test Negative (08/16/16 1:06 code = Antibody Scrn) AM) [employer] [id number] 07:06:00 Test Item Value Reference Range Interpretation Comments B/C Ratio (test code = B/C Ratio) 115 6-25 [facility] [employer] [id number] 07:06:00 Test Item Value Reference Range Interpretation Comments ABO/Rh (test code = ABO/Rh) A NEG [employer] [id number] 07:06:00 Test Item Value Reference Range Interpretation Comments Total Protein (test code = Total 6.4 6.4-8.4 Protein) [employer]2017-01-23 07:06:00 Test Item Value Reference Range Interpretation Comments Troponin-I (test code 0.05 See_Comment [Auto mated message] The = Troponin-I) system which g enerated this result transmit óscar reference range : <=0.40. The reference r delaney was not used to interpr et this result as kristine l/abnormal. [facility] [employer] [place]2017-01-23 07:06:00 Test Item Value Reference Range Interpretation Comments AST (test code = AST) 6 See_Comment [Auto mated message] The system which ge nerated this result transmit óscar reference range : <=37. The reference range was not used to interpr et this result as kristine l/abnormal. [facility] [employer] [id number] 07:06:00 Test Item Value Reference Range Interpretation Comments Total CK (test code = Total CK) 40 12-191 [facility] [employer] [id number] 07:06:00 Test Item Value Reference Range Interpretation Comments Bili Total (test code = Bili Total) 0.4 0.2-1.3 [facility] [employer] [place]2017-01-23 07:06:00 Test Item Value Reference Range Interpretation Comments Albumin Lvl (test code = Albumin Lvl) 3.2 3.5-5.0 [facility] [employer] [id number] 07:06:00 Test Item Value Reference Range Interpretation Comments Troponin-T (test code no gt See_Comment [Auto mated message] The = Troponin-T) system which g enerated this result transmit óscar reference range : <=0.100. The reference r delaney was not used to interpr et this result as kristine l/abnormal. [facility] [place] [facility] [place]2017-01-23 07:06:00 Test Item Value Reference Range Interpretation Comments Alk Phos (test code = Alk Phos) 79 39-136 [facility] [place] [facility] [place]2017-01-23 07:06:00 Test Item Value Reference Range Interpretation Comments A/G Ratio (test code = A/G Ratio) 1.0 0.7-1.6 [facility] [place] [facility] [place]2017-01-23 07:06:00 Test Item Value Reference Range Interpretation Comments Globulin (test code = Globulin) 3.2 2.7-4.2 [facility] [place] [facility] [place]2017-01-23 07:06:00 Test Item Value Reference Range Interpretation Comments ALT (test code = ALT) 20 See_Comment [Auto mated message] The system which ge nerated this result transmit óscar reference range : <=65. The reference range was not used to interpr et this result as kristine l/abnormal. [facility] ChildrenHdsmbbpVDIEDF3118-16-41 07:06:00 Test Item Value Reference Range Interpretation Comments Chol (test code = Chol) 69 [facility]Med[facility] [id number] 07:06:00 Test Item Value Reference Range Interpretation Comments B/C Ratio (test code = B/C Ratio) 115 [facility]25 [facility] 07:06:00 Test Item Value Reference Range Interpretation Comments Trig (test code = Trig) 50 [facility] [id number] 07:06:00 Test Item Value Reference Range Interpretation Comments Total Protein (test code = Total 6.4 6.4-8.4 Protein) [facility] ChildrenXvdwtgaTINZNE1405-61-53 07:06:00 Test Item Value Reference Range Interpretation Comments HDL (test code = HDL) 33 [facility] [id number] 07:06:00 Test Item Value Reference Range Interpretation Comments AST (test code = AST) 6 See_Comment [Auto mated message] The system which ge nerated this result transmit óscar reference range : <=37. The reference range was not used to interpr et this result as kristine l/abnormal. [facility] ChildrenMuafvywAZGNAK2282-29-08 07:06:00 Test Item Value Reference Range Interpretation Comments LDL (Calculated) (test code = LDL 26 (Calculated)) [facility] [id number] 07:06:00 Test Item Value Reference Range Interpretation Comments Bili Total (test code = Bili Total) 0.4 0.2-1.3 [facility]burgZekrudwMXNMOE9298-45-72 07:06:00 Test Item Value Reference Range Interpretation Comments CHD Risk (test code = CHD Risk) 2.09 4.00-7.30 [facility] ChildrenL[facility] [id number] 07:06:00 Test Item Value Reference Range Interpretation Comments Albumin Lvl (test code = Albumin Lvl) 3.2 3.5-5.0 [facility]inburgRcxswpbVRGGQZ6122-11-21 07:06:00 Test Item Value Reference Range Interpretation Comments VLDL (test code = VLDL) 10 [facility] EdinburgMkvtkzfSLXLRBSQB6423-49-67 07:06:00 Test Item Value Reference Range Interpretation Comments Myoglobin (test code = Myoglobin) 37 25-72 [facility] [id number] 07:06:00 Test Item Value Reference Range Interpretation Comments Alk Phos (test code = Alk Phos) 79 39-136 [facility] ChildrenannPARATHYROID [id number] 07:06:00 Test Item Value Reference Range Interpretation Comments Ca Ion WB (test code = Ca Ion WB) 1.33 1.05-1.25 [facility] ChildrenannCHEM [id number] 07:06:00 Test Item Value Reference Range Interpretation Comments ALT (test code = ALT) 20 See_Comment [Auto mated message] The system which ge nerated this result transmit óscar reference range : <=65. The reference range was not used to interpr et this result as kristine l/abnormal. [facility]burgPARATHYROID [id number] 07:06:00 Test Item Value Reference Range Interpretation Comments Ca Norm WB (test code = Ca Norm WB) 1.25 1.05-1.25 [facility] ChildrenCcwdyiiMDBZUV3817-50-16 07:06:00 Test Item Value Reference Range Interpretation Comments Chol (test code = Chol) 69 [facility]burgSPECIAL [id number] 07:06:00 Test Item Value Reference Range Interpretation Comments Hgb A1C (test code = Hgb A1C) 6.5 [facility] ChildrenBsqxgjoEAOKPB4184-89-21 07:06:00 Test Item Value Reference Range Interpretation Comments Trig (test code = Trig) 50 [facility] AND [id number] 07:06:00 Test Item Value Reference Range Interpretation Comments UA Urobilinogen (test code = UA <=1.0 mg/dL 0.1-1.0 Urobilinogen) [facility] ChildrenOpgjmkaTGYELC4202-90-48 07:06:00 Test Item Value Reference Range Interpretation Comments HDL (test code = HDL) 33 [facility]ann[facility] [id number] 07:06:00 Test Item Value Reference Range Interpretation Comments UA Turbidity (test code = Clear (08/16/16 1:06 UA Turbidity) AM) [facility] EdinburgVdzbozzEGLUJB3372-95-00 07:06:00 Test Item Value Reference Range Interpretation Comments LDL (Calculated) (test code = LDL 26 (Calculated)) [facility]ann[facility] AND [id number] 07:06:00 Test Item Value Reference Range Interpretation Comments UA Spec Grav (test code = UA Spec Grav) 1.016 [facility] ChildrenAcxyrcpZAIPXA5667-48-53 07:06:00 Test Item Value Reference Range Interpretation Comments CHD Risk (test code = CHD Risk) 2.09 4.00-7.30 [facility] AND [id number] 07:06:00 Test Item Value Reference Range Interpretation Comments UA Protein (test code = UA Negative mg/dL Protein) [facility] ChildrenFjeqnnnAOISOT4780-61-37 07:06:00 Test Item Value Reference Range Interpretation Comments VLDL (test code = VLDL) 10 [facility] AND [id number] 07:06:00 Test Item Value Reference Range Interpretation Comments UA pH (test code = UA pH) 5.5 5.0-8.0 [facility]inburgBdzcmdoOYTLVARGU3259-65-92 07:06:00 Test Item Value Reference Range Interpretation Comments Myoglobin (test code = Myoglobin) 37 25-72 [facility] AND [id number] 07:06:00 Test Item Value Reference Range Interpretation Comments UA Color (test code = Yellow *NA*(08/16/16 UA Color) 1:06 AM) [facility] AND [id number] 07:06:00 Test Item Value Reference Range Interpretation Comments UA CaOx Kelli (test code = UA Occasional /HPF CaOx Kelli) [facility] [id number] 07:06:00 Test Item Value Reference Range Interpretation Comments Ca Ion WB (test code = Ca Ion WB) 1.33 1.05-1.25 [facility] AND [id number] 07:06:00 Test Item Value Reference Range Interpretation Comments UA WBC (test code = 2 See_Comment [Automa óscar message] The UA WBC) system which ge nerated this result transmit óscar reference range : <=5. The reference range was not used to interpr et this result as kristine l/abnormal. [facility] HospitalRO[facility] [id number] 07:06:00 Test Item Value Reference Range Interpretation Comments Ca Norm WB (test code = Ca Norm WB) 1.25 1.05-1.25 [facility] AND [id number] 07:06:00 Test Item Value Reference Range Interpretation Comments UA Mucus (test code = UA Mucus) Few /LPF [facility] AND [id number] 07:06:00 Test Item Value Reference Range Interpretation Comments UA Leuk Est (test Negative (08/16/16 1:06 code = UA Leuk Est) AM) [facility] [id number] 07:06:00 Test Item Value Reference Range Interpretation Comments Hgb A1C (test code = Hgb A1C) 6.5 [facility] AND [id number] 07:06:00 Test Item Value Reference Range Interpretation Comments UA RBC (test code = 1 See_Comment [Automa óscar message] The UA RBC) system which ge nerated this result transmit óscar reference range : <=2. The reference range was not used to interpr et this result as kristine l/abnormal. [facility] AND [id number] 07:06:00 Test Item Value Reference Range Interpretation Comments UA Blood (test code = Negative (08/16/16 1:06 UA Blood) AM) [facility] AND [id number] 07:06:00 Test Item Value Reference Range Interpretation Comments UA Urobilinogen (test code = UA <=1.0 mg/dL 0.1-1.0 Urobilinogen) [facility] AND [id number] 07:06:00 Test Item Value Reference Range Interpretation Comments UA Glucose (test code = UA Glucose) 50 mg/dL [facility] AND [id number] 07:06:00 Test Item Value Reference Range Interpretation Comments UA Turbidity (test code = Clear (08/16/16 1:06 UA Turbidity) AM) [facility] AND [id number] 07:06:00 Test Item Value Reference Range Interpretation Comments UA Bili (test code = Negative *NA*(08/16/16 UA Bili) 1:06 AM) [facility] AND [id number] 07:06:00 Test Item Value Reference Range Interpretation Comments UA Spec Grav (test code = UA Spec Grav) 1.016 [facility] AND [id number] 07:06:00 Test Item Value Reference Range Interpretation Comments UA Ketones (test code = UA Negative mg/dL Ketones) [facility] AND [id number] 07:06:00 Test Item Value Reference Range Interpretation Comments UA Protein (test code = UA Negative mg/dL Protein) [facility] AND [id number] 07:06:00 Test Item Value Reference Range Interpretation Comments UA Nitrite (test code Negative (08/16/16 1:06 = UA Nitrite) AM) [facility] AND [id number] 07:06:00 Test Item Value Reference Range Interpretation Comments UA pH (test code = UA pH) 5.5 5.0-8.0 [facility] AND [id number] 07:06:00 Test Item Value Reference Range Interpretation Comments UA Sq Epi (test code = UA Sq Epi) None Seen [facility] AND [id number] 07:06:00 Test Item Value Reference Range Interpretation Comments UA Color (test code = Yellow *NA*(08/16/16 UA Color) 1:06 AM) [facility] AND [id number] 07:06:00 Test Item Value Reference Range Interpretation Comments UA Hyal Cast (test 4 See_Comment [Automat ed message] The code = UA Hyal Cast) system which generated this result transmit óscar reference range : <=2. The reference range was not used to interpr et this result as kristine l/abnormal. [facility] AND [id number] 07:06:00 Test Item Value Reference Range Interpretation Comments UA CaOx Kelli (test code = UA Occasional /HPF CaOx Kelli) [facility] AND [id number] 07:06:00 Test Item Value Reference Range Interpretation Comments UA WBC (test code = 2 See_Comment [Automa óscar message] The UA WBC) system which ge nerated this result transmit óscar reference range : <=5. The reference range was not used to interpr et this result as kristine l/abnormal. [facility] AND [id number] 07:06:00 Test Item Value Reference Range Interpretation Comments UA Mucus (test code = UA Mucus) Few /LPF [facility] AND [id number] 07:06:00 Test Item Value Reference Range Interpretation Comments UA Leuk Est (test Negative (08/16/16 1:06 code = UA Leuk Est) AM) [facility] AND [id number] 07:06:00 Test Item Value Reference Range Interpretation Comments UA RBC (test code = 1 See_Comment [Automa óscar message] The UA RBC) system which ge nerated this result transmit óscar reference range : <=2. The reference range was not used to interpr et this result as kristine l/abnormal. [facility] AND [id number] 07:06:00 Test Item Value Reference Range Interpretation Comments UA Blood (test code = Negative (08/16/16 1:06 UA Blood) AM) [facility] AND [id number] 07:06:00 Test Item Value Reference Range Interpretation Comments UA Glucose (test code = UA Glucose) 50 mg/dL [facility] AND [id number] 07:06:00 Test Item Value Reference Range Interpretation Comments UA Bili (test code = Negative *NA*(08/16/16 UA Bili) 1:06 AM) [facility] AND [id number] 07:06:00 Test Item Value Reference Range Interpretation Comments UA Ketones (test code = UA Negative mg/dL Ketones) [facility] AND [id number] 07:06:00 Test Item Value Reference Range Interpretation Comments UA Nitrite (test code Negative (08/16/16 1:06 = UA Nitrite) AM) [facility] AND [id number] 07:06:00 Test Item Value Reference Range Interpretation Comments UA Sq Epi (test code = UA Sq Epi) None Seen [facility] AND [id number] 07:06:00 Test Item Value Reference Range Interpretation Comments UA Hyal Cast (test 4 See_Comment [Automat ed message] The code = UA Hyal Cast) system which generated this result transmit óscar reference range : <=2. The reference range was not used to interpr et this result as kristine l/abnormal. [facility]hamVnhalmkMWXRFAOIWH8590-30-26 14:35:00 Test Item Value Reference Range Interpretation Comments PT (test code = PT) 14.3 s 12.0-14.7 [facility] BrenhamJxlqpjxKZNEZHXBOO9699-52-73 14:35:00 Test Item Value Reference Range Interpretation Comments INR (test code = INR) 1.08 0.85-1.17 [facility]hamXldcbhbMQNVGSCPJX4653-91-38 14:35:00 Test Item Value Reference Range Interpretation Comments PTT (test code = PTT) 66.6 s 22.9-35.8 [facility] BrenhamLpxfivlQDHMZGDMBN7277-31-16 14:35:00 Test Item Value Reference Range Interpretation Comments PT (test code = PT) 14.3 s 12.0-14.7 [facility] BrenhamQkmmzweKMJZBXWOFC5883-24-52 14:35:00 Test Item Value Reference Range Interpretation Comments INR (test code = INR) 1.08 0.85-1.17 [facility] BrenhamAofbrwkOWCWYRRERV2150-28-14 14:35:00 Test Item Value Reference Range Interpretation Comments PTT (test code = PTT) 66.6 s 22.9-35.8 [place] [address]-03-20 14:35:00 Test Item Value Reference Range Interpretation Comments PT (test code = PT) 14.3 s 12.0-14.7 [place] [id number] 14:35:00 Test Item Value Reference Range Interpretation Comments INR (test code = INR) 1.08 0.85-1.17 [place] 737096-03-20 14:35:00 Test Item Value Reference Range Interpretation Comments PTT (test code = PTT) 66.6 s 22.9-35.8 [facility] BrenhamFtchxcdKCRVYUHHZN2919-04-00 14:35:00 Test Item Value Reference Range Interpretation Comments PT (test code = PT) 14.3 s 12.0-14.7 [facility] BrenhamFawqakaQEYWHJWQUW3174-74-49 14:35:00 Test Item Value Reference Range Interpretation Comments INR (test code = INR) 1.08 0.85-1.17 [facility] BrenhamFyfzfopOSMJLPJAVC8348-51-96 14:35:00 Test Item Value Reference Range Interpretation Comments PTT (test code = PTT) 66.6 s 22.9-35.8 [facility] BrenhamAtlnpsjUUMDNPVJCL8981-01-76 14:35:00 Test Item Value Reference Range Interpretation Comments PT (test code = PT) 14.3 s 12.0-14.7 [facility] BrenhamYzfpbaoKSCBWRISSP5765-60-93 14:35:00 Test Item Value Reference Range Interpretation Comments INR (test code = INR) 1.08 0.85-1.17 [facility] BrenhamUwuudrdNNGRESDPMS8360-07-97 14:35:00 Test Item Value Reference Range Interpretation Comments PTT (test code = PTT) 66.6 s 22.9-35.8 [facility] BrenhamQuwbpqaCNXDCYSSSB1321-69-70 14:35:00 Test Item Value Reference Range Interpretation Comments PT (test code = PT) 14.3 s 12.0-14.7 [facility] BrenhamMliqnsxOEGPXBEWUB3791-79-42 14:35:00 Test Item Value Reference Range Interpretation Comments INR (test code = INR) 1.08 0.85-1.17 [facility] BrenhamUctpodqGIBIOXJFAD3865-98-57 14:35:00 Test Item Value Reference Range Interpretation Comments PTT (test code = PTT) 66.6 s 22.9-35.8 [facility] BrenhamDhzomhgDFDREXMHKK7973-21-26 08:46:00 Test Item Value Reference Range Interpretation Comments INR (test code = INR) 1.07 0.85-1.17 [facility] BrenhamJjvgpedXGTMQHMZGA8057-57-10 08:46:00 Test Item Value Reference Range Interpretation Comments PT (test code = PT) 14.2 s 12.0-14.7 [facility] BrenhamCqsrnofDBBSLTWSIG9922-68-71 08:46:00 Test Item Value Reference Range Interpretation Comments PTT (test code = PTT) 73.4 s 22.9-35.8 [facility] BrenhamKivkbiaKFOSDIIZJP1197-01-49 08:46:00 Test Item Value Reference Range Interpretation Comments INR (test code = INR) 1.07 0.85-1.17 [facility] BrenhamVnhdxvjNANQPRUEDO9098-91-92 08:46:00 Test Item Value Reference Range Interpretation Comments PT (test code = PT) 14.2 s 12.0-14.7 [facility] BrenhamQxshpakCQHCWTIUSE5526-41-33 08:46:00 Test Item Value Reference Range Interpretation Comments PTT (test code = PTT) 73.4 s 22.9-35.8 [facility] BrenhamOdgvasaXRIQYUTYSA4112-85-18 08:46:00 Test Item Value Reference Range Interpretation Comments INR (test code = INR) 1.07 0.85-1.17 [facility] BrenhamWmmibzqVFFEHBBRBO1078-27-72 08:46:00 Test Item Value Reference Range Interpretation Comments PT (test code = PT) 14.2 s 12.0-14.7 [facility] BrenhamSgbrbsvHPUWPAITRF7035-90-61 08:46:00 Test Item Value Reference Range Interpretation Comments PTT (test code = PTT) 73.4 s 22.9-35.8 [facility] BrenhamOkuntxlXJJRYIMCJA6232-80-35 08:46:00 Test Item Value Reference Range Interpretation Comments INR (test code = INR) 1.07 0.85-1.17 [facility] BrenhamHnwlwsuMQBLLEXRKZ1417-33-06 08:46:00 Test Item Value Reference Range Interpretation Comments PT (test code = PT) 14.2 s 12.0-14.7 [facility] BrenhamZfzvtazCLIQSLDWMV4921-25-96 08:46:00 Test Item Value Reference Range Interpretation Comments PTT (test code = PTT) 73.4 s 22.9-35.8 [facility] BrenhamTiypoxtVIWMJBTKLZ1977-81-33 08:46:00 Test Item Value Reference Range Interpretation Comments INR (test code = INR) 1.07 0.85-1.17 [facility] BrenhamBxbtnrlUGLKOUXQGO0149-99-09 08:46:00 Test Item Value Reference Range Interpretation Comments PT (test code = PT) 14.2 s 12.0-14.7 [facility] BrenhamYpsrjpbSZSEHCLPNC4046-00-31 08:46:00 Test Item Value Reference Range Interpretation Comments PTT (test code = PTT) 73.4 s 22.9-35.8 [facility] BrenhamYzvpttjRFOUMQEQOK1055-96-49 08:46:00 Test Item Value Reference Range Interpretation Comments INR (test code = INR) 1.07 0.85-1.17 [facility] BrenhamSknrrxqSWUNNVCHMT9131-91-25 08:46:00 Test Item Value Reference Range Interpretation Comments PT (test code = PT) 14.2 s 12.0-14.7 [facility] BrenhamObwghtmDYIGEILSTI5609-13-17 08:46:00 Test Item Value Reference Range Interpretation Comments PTT (test code = PTT) 73.4 s 22.9-35.8 [facility] BrenhamAbkoooiKGZUUNOZZO5047-30-37 01:03:00 Test Item Value Reference Range Interpretation Comments PTT (test code = PTT) 49.7 s 22.9-35.8 [facility] BrenhamGhthuosLZJWNJKAXR0377-78-52 01:03:00 Test Item Value Reference Range Interpretation Comments PTT (test code = PTT) 49.7 s 22.9-35.8 [facility] BrenhamZkviyzbRWYZYDCNJP9665-71-77 01:03:00 Test Item Value Reference Range Interpretation Comments PTT (test code = PTT) 49.7 s 22.9-35.8 [facility] BrenhamRoyqmiiQJKFUSHWDL2167-53-43 01:03:00 Test Item Value Reference Range Interpretation Comments PTT (test code = PTT) 49.7 s 22.9-35.8 [place] 737096-03-20 01:03:00 Test Item Value Reference Range Interpretation Comments PTT (test code = PTT) 49.7 s 22.9-35.8 [place] 737096-03-20 01:03:00 Test Item Value Reference Range Interpretation Comments PTT (test code = PTT) 49.7 s 22.9-35.8 [place] 981416-03-19 07:07:00 Test Item Value Reference Range Interpretation Comments eGFR (test code = eGFR) 79 [facility]2016-03-19 07:07:00 Test Item Value Reference Range Interpretation Comments Glucose Lvl (test code = Glucose Lvl) 167 70-99 [facility]2016-03-19 07:07:00 Test Item Value Reference Range Interpretation Comments Calcium Lvl (test code = Calcium Lvl) 8.3 8.5-10.5 [facility]2016-03-19 07:07:00 Test Item Value Reference Range Interpretation Comments CO2 (test code = CO2) 24 24-32 [facility]2016-03-19 07:07:00 Test Item Value Reference Range Interpretation Comments BUN (test code = BUN) 12 7-22 [facility]2016-03-19 07:07:00 Test Item Value Reference Range Interpretation Comments Creatinine Lvl (test code = Creatinine 0.98 0.50-1.40 Lvl) [facility]2016-03-19 07:07:00 Test Item Value Reference Range Interpretation Comments Chloride Lvl (test code = Chloride Lvl) 103 95-109 [facility]2016-03-19 07:07:00 Test Item Value Reference Range Interpretation Comments Sodium Lvl (test code = Sodium Lvl) 138 135-145 [facility]2016-03-19 07:07:00 Test Item Value Reference Range Interpretation Comments Potassium Lvl (test code = Potassium 4.2 3.5-5.1 Lvl) [facility]2016-03-19 07:07:00 Test Item Value Reference Range Interpretation Comments AGAP (test code = AGAP) 15.2 10.0-20.0 [place] 737096-03-19 07:07:00 Test Item Value Reference Range Interpretation Comments Hgb (test code = Hgb) 9.9 14.0-18.0 [facility] BrenhamEwphgefILXGXNAHMN6270-86-52 07:07:00 Test Item Value Reference Range Interpretation Comments RBC (test code = RBC) 3.40 4.70-6.10 [facility] BrenhamFvmwmahGHRTQVRBCG6877-20-15 07:07:00 Test Item Value Reference Range Interpretation Comments WBC (test code = WBC) 5.0 3.7-10.4 [facility] BrenhamGokbrfkDCQCEMNYDD5673-32-63 07:07:00 Test Item Value Reference Range Interpretation Comments MPV (test code = MPV) 7.9 7.4-10.4 [facility] BrenhamGyispmuHNFHBQYMIE7776-04-06 07:07:00 Test Item Value Reference Range Interpretation Comments Platelet (test code = Platelet) 218 133-450 [facility] BrenhamQfxauggTLERZLUAML4476-91-29 07:07:00 Test Item Value Reference Range Interpretation Comments MCHC (test code = MCHC) 33.3 32.0-36.0 [facility] BrenhamOsfcsrhOTALLFPSAP6279-05-69 07:07:00 Test Item Value Reference Range Interpretation Comments MCH (test code = MCH) 29.0 pg 27.0-31.0 [facility] BrenhamXrnbzfhQZTFTPNZED4806-29-04 07:07:00 Test Item Value Reference Range Interpretation Comments MCV (test code = MCV) 87.0 80.0-94.0 [facility] BrenhamRpetplwIWHPGCIVAV1502-95-54 07:07:00 Test Item Value Reference Range Interpretation Comments Hct (test code = Hct) 29.6 42.0-54.0 [facility] BrenhamBsidhgrNHKKOUYSPT9430-62-60 07:07:00 Test Item Value Reference Range Interpretation Comments RDW (test code = RDW) 14.8 11.5-14.5 [facility]2016-03-19 07:07:00 Test Item Value Reference Range Interpretation Comments eGFR (test code = eGFR) 79 [facility]2016-03-19 07:07:00 Test Item Value Reference Range Interpretation Comments Glucose Lvl (test code = Glucose Lvl) 167 70-99 [facility]2016-03-19 07:07:00 Test Item Value Reference Range Interpretation Comments Calcium Lvl (test code = Calcium Lvl) 8.3 8.5-10.5 [facility]2016-03-19 07:07:00 Test Item Value Reference Range Interpretation Comments CO2 (test code = CO2) 24 24-32 [facility]2016-03-19 07:07:00 Test Item Value Reference Range Interpretation Comments BUN (test code = BUN) 12 7-22 [place] 981416-03-19 07:07:00 Test Item Value Reference Range Interpretation Comments Creatinine Lvl (test code = Creatinine 0.98 0.50-1.40 Lvl) [facility]2016-03-19 07:07:00 Test Item Value Reference Range Interpretation Comments Chloride Lvl (test code = Chloride Lvl) 103 95-109 [facility]2016-03-19 07:07:00 Test Item Value Reference Range Interpretation Comments Sodium Lvl (test code = Sodium Lvl) 138 135-145 [facility]2016-03-19 07:07:00 Test Item Value Reference Range Interpretation Comments Potassium Lvl (test code = Potassium 4.2 3.5-5.1 Lvl) [facility]2016-03-19 07:07:00 Test Item Value Reference Range Interpretation Comments AGAP (test code = AGAP) 15.2 10.0-20.0 [place] 737096-03-19 07:07:00 Test Item Value Reference Range Interpretation Comments Hgb (test code = Hgb) 9.9 14.0-18.0 [place] 737096-03-19 07:07:00 Test Item Value Reference Range Interpretation Comments RBC (test code = RBC) 3.40 4.70-6.10 [place] 737096-03-19 07:07:00 Test Item Value Reference Range Interpretation Comments WBC (test code = WBC) 5.0 3.7-10.4 [facility]TzmsoooIYXXITJJEZ2280-13-99 07:07:00 Test Item Value Reference Range Interpretation Comments MPV (test code = MPV) 7.9 7.4-10.4 [facility]hamWbrxxkxFNSVBHYNUR1819-51-82 07:07:00 Test Item Value Reference Range Interpretation Comments Platelet (test code = Platelet) 218 133-450 [facility]hamPbscbjxQHWPGQCBPZ5411-37-95 07:07:00 Test Item Value Reference Range Interpretation Comments MCHC (test code = MCHC) 33.3 32.0-36.0 [place] 737096-03-19 07:07:00 Test Item Value Reference Range Interpretation Comments MCH (test code = MCH) 29.0 pg 27.0-31.0 [facility]hamMdtthwgXGIDWJUXCI0156-15-36 07:07:00 Test Item Value Reference Range Interpretation Comments MCV (test code = MCV) 87.0 80.0-94.0 [facility]hamBvuksetQBPAZFBQCG3655-85-29 07:07:00 Test Item Value Reference Range Interpretation Comments Hct (test code = Hct) 29.6 42.0-54.0 [place] 737096-03-19 07:07:00 Test Item Value Reference Range Interpretation Comments RDW (test code = RDW) 14.8 11.5-14.5 [facility]2016-03-19 07:07:00 Test Item Value Reference Range Interpretation Comments eGFR (test code = eGFR) 79 [facility]2016-03-19 07:07:00 Test Item Value Reference Range Interpretation Comments Glucose Lvl (test code = Glucose Lvl) 167 70-99 [facility]2016-03-19 07:07:00 Test Item Value Reference Range Interpretation Comments Calcium Lvl (test code = Calcium Lvl) 8.3 8.5-10.5 [facility]2016-03-19 07:07:00 Test Item Value Reference Range Interpretation Comments CO2 (test code = CO2) 24 24-32 [facility]2016-03-19 07:07:00 Test Item Value Reference Range Interpretation Comments BUN (test code = BUN) 12 7-22 [place] 981416-03-19 07:07:00 Test Item Value Reference Range Interpretation Comments Creatinine Lvl (test code = Creatinine 0.98 0.50-1.40 Lvl) [facility]2016-03-19 07:07:00 Test Item Value Reference Range Interpretation Comments Chloride Lvl (test code = Chloride Lvl) 103 95-109 [facility]2016-03-19 07:07:00 Test Item Value Reference Range Interpretation Comments Sodium Lvl (test code = Sodium Lvl) 138 135-145 [facility]2016-03-19 07:07:00 Test Item Value Reference Range Interpretation Comments Potassium Lvl (test code = Potassium 4.2 3.5-5.1 Lvl) [facility]2016-03-19 07:07:00 Test Item Value Reference Range Interpretation Comments AGAP (test code = AGAP) 15.2 10.0-20.0 [facility]hamZkkvgtaTDPNSGFKLH5332-03-98 07:07:00 Test Item Value Reference Range Interpretation Comments Hgb (test code = Hgb) 9.9 14.0-18.0 [facility]hamCwpkobeKXDJPKQQQN1695-60-33 07:07:00 Test Item Value Reference Range Interpretation Comments RBC (test code = RBC) 3.40 4.70-6.10 [facility]hamJdbtdvbDGDPRHXYRZ6073-27-92 07:07:00 Test Item Value Reference Range Interpretation Comments WBC (test code = WBC) 5.0 3.7-10.4 [facility] BrenhamDgoarpjHULYTPMGGW5418-05-87 07:07:00 Test Item Value Reference Range Interpretation Comments MPV (test code = MPV) 7.9 7.4-10.4 [facility] BrenhamDdqxcaeEZQICTKYYP4550-17-57 07:07:00 Test Item Value Reference Range Interpretation Comments Platelet (test code = Platelet) 218 133-450 [facility] BrenhamPaxlipsJETYWYLIOI9544-37-64 07:07:00 Test Item Value Reference Range Interpretation Comments MCHC (test code = MCHC) 33.3 32.0-36.0 [facility]hamBlflpdbNDUDVXNMSQ9476-44-67 07:07:00 Test Item Value Reference Range Interpretation Comments MCH (test code = MCH) 29.0 pg 27.0-31.0 [facility]hamHobkeyiBHOYTPNCIQ1661-59-37 07:07:00 Test Item Value Reference Range Interpretation Comments MCV (test code = MCV) 87.0 80.0-94.0 [facility]hamZgkdsuzPTKPBAFVQN4460-44-66 07:07:00 Test Item Value Reference Range Interpretation Comments Hct (test code = Hct) 29.6 42.0-54.0 [facility]hamUgnjsdxFQJBRMZXJH5113-67-27 07:07:00 Test Item Value Reference Range Interpretation Comments RDW (test code = RDW) 14.8 11.5-14.5 [facility]2016-03-19 07:07:00 Test Item Value Reference Range Interpretation Comments eGFR (test code = eGFR) 79 [facility]2016-03-19 07:07:00 Test Item Value Reference Range Interpretation Comments Glucose Lvl (test code = Glucose Lvl) 167 70-99 [facility]2016-03-19 07:07:00 Test Item Value Reference Range Interpretation Comments Calcium Lvl (test code = Calcium Lvl) 8.3 8.5-10.5 [facility]2016-03-19 07:07:00 Test Item Value Reference Range Interpretation Comments CO2 (test code = CO2) 24 24-32 [facility]2016-03-19 07:07:00 Test Item Value Reference Range Interpretation Comments BUN (test code = BUN) 12 7-22 [facility]2016-03-19 07:07:00 Test Item Value Reference Range Interpretation Comments Creatinine Lvl (test code = Creatinine 0.98 0.50-1.40 Lvl) [facility]2016-03-19 07:07:00 Test Item Value Reference Range Interpretation Comments Chloride Lvl (test code = Chloride Lvl) 103 95-109 [facility]2016-03-19 07:07:00 Test Item Value Reference Range Interpretation Comments Sodium Lvl (test code = Sodium Lvl) 138 135-145 [facility]2016-03-19 07:07:00 Test Item Value Reference Range Interpretation Comments Potassium Lvl (test code = Potassium 4.2 3.5-5.1 Lvl) [facility]2016-03-19 07:07:00 Test Item Value Reference Range Interpretation Comments AGAP (test code = AGAP) 15.2 10.0-20.0 [facility]hamDgyxhsaXADCEGOFFD6591-94-91 07:07:00 Test Item Value Reference Range Interpretation Comments Hgb (test code = Hgb) 9.9 14.0-18.0 [facility]hamSbkunxzFJKSJTPJEQ5550-53-54 07:07:00 Test Item Value Reference Range Interpretation Comments RBC (test code = RBC) 3.40 4.70-6.10 [facility]hamSrhjgddAZQJNWRDTS3637-49-97 07:07:00 Test Item Value Reference Range Interpretation Comments WBC (test code = WBC) 5.0 3.7-10.4 [place] 737096-03-19 07:07:00 Test Item Value Reference Range Interpretation Comments MPV (test code = MPV) 7.9 7.4-10.4 [facility] BrenhamAnmxgokOMLUYHTTXW8705-00-07 07:07:00 Test Item Value Reference Range Interpretation Comments Platelet (test code = Platelet) 218 133-450 [facility] BrenhamZxyohrnVJEATNOVNC0163-29-68 07:07:00 Test Item Value Reference Range Interpretation Comments MCHC (test code = MCHC) 33.3 32.0-36.0 [facility] BrenhamYudzaupCJLXCGTZPX4738-63-20 07:07:00 Test Item Value Reference Range Interpretation Comments MCH (test code = MCH) 29.0 pg 27.0-31.0 [facility] BrenhamSqaywehXUGLVHHPCU7797-51-46 07:07:00 Test Item Value Reference Range Interpretation Comments MCV (test code = MCV) 87.0 80.0-94.0 [facility] BrenhamHkqinuzJRGUUMOGJG1919-22-41 07:07:00 Test Item Value Reference Range Interpretation Comments Hct (test code = Hct) 29.6 42.0-54.0 [facility] BrenhamFehiwwzUVFJIZIJIN9111-46-41 07:07:00 Test Item Value Reference Range Interpretation Comments RDW (test code = RDW) 14.8 11.5-14.5 [facility]2016-03-19 07:07:00 Test Item Value Reference Range Interpretation Comments eGFR (test code = eGFR) 79 [facility]2016-03-19 07:07:00 Test Item Value Reference Range Interpretation Comments Glucose Lvl (test code = Glucose Lvl) 167 70-99 [facility]2016-03-19 07:07:00 Test Item Value Reference Range Interpretation Comments Calcium Lvl (test code = Calcium Lvl) 8.3 8.5-10.5 [facility]2016-03-19 07:07:00 Test Item Value Reference Range Interpretation Comments CO2 (test code = CO2) 24 24-32 [facility]2016-03-19 07:07:00 Test Item Value Reference Range Interpretation Comments BUN (test code = BUN) 12 7-22 [facility]2016-03-19 07:07:00 Test Item Value Reference Range Interpretation Comments Creatinine Lvl (test code = Creatinine 0.98 0.50-1.40 Lvl) [facility]2016-03-19 07:07:00 Test Item Value Reference Range Interpretation Comments Chloride Lvl (test code = Chloride Lvl) 103 95-109 [facility]2016-03-19 07:07:00 Test Item Value Reference Range Interpretation Comments Sodium Lvl (test code = Sodium Lvl) 138 135-145 [facility]2016-03-19 07:07:00 Test Item Value Reference Range Interpretation Comments Potassium Lvl (test code = Potassium 4.2 3.5-5.1 Lvl) [facility]2016-03-19 07:07:00 Test Item Value Reference Range Interpretation Comments AGAP (test code = AGAP) 15.2 10.0-20.0 [facility]hamLucvypaNZTCYMUFBI0559-06-33 07:07:00 Test Item Value Reference Range Interpretation Comments Hgb (test code = Hgb) 9.9 14.0-18.0 [facility] BrenhamRphymsbMLGSVHJXWH7821-41-16 07:07:00 Test Item Value Reference Range Interpretation Comments RBC (test code = RBC) 3.40 4.70-6.10 [place] 737096-03-19 07:07:00 Test Item Value Reference Range Interpretation Comments WBC (test code = WBC) 5.0 3.7-10.4 [facility]2016-03-19 07:07:00 Test Item Value Reference Range Interpretation Comments eGFR (test code = eGFR) 79 [facility] BrenhamAhzvxelPFDKRWNTSS2208-91-86 07:07:00 Test Item Value Reference Range Interpretation Comments MPV (test code = MPV) 7.9 7.4-10.4 [facility]2016-03-19 07:07:00 Test Item Value Reference Range Interpretation Comments Glucose Lvl (test code = Glucose Lvl) 167 70-99 [facility]hamEkrtjlyJRZPITNXGD8295-94-84 07:07:00 Test Item Value Reference Range Interpretation Comments Platelet (test code = Platelet) 218 133-450 [facility]2016-03-19 07:07:00 Test Item Value Reference Range Interpretation Comments Calcium Lvl (test code = Calcium Lvl) 8.3 8.5-10.5 [facility] BrenhamOyxerbmJPRUUVCXFN9136-31-25 07:07:00 Test Item Value Reference Range Interpretation Comments MCHC (test code = MCHC) 33.3 32.0-36.0 [facility]2016-03-19 07:07:00 Test Item Value Reference Range Interpretation Comments CO2 (test code = CO2) 24 24-32 [facility] BrenhamEthuxzoXTGHIXZOVG2394-49-39 07:07:00 Test Item Value Reference Range Interpretation Comments MCH (test code = MCH) 29.0 pg 27.0-31.0 [facility]2016-03-19 07:07:00 Test Item Value Reference Range Interpretation Comments BUN (test code = BUN) 12 7-22 [facility] BrenhamSqxbcwkSFVYFOBHRW3794-99-55 07:07:00 Test Item Value Reference Range Interpretation Comments MCV (test code = MCV) 87.0 80.0-94.0 [facility]2016-03-19 07:07:00 Test Item Value Reference Range Interpretation Comments Creatinine Lvl (test code = Creatinine 0.98 0.50-1.40 Lvl) [facility]hamNcbsquxVNADFLKGDS4480-28-04 07:07:00 Test Item Value Reference Range Interpretation Comments Hct (test code = Hct) 29.6 42.0-54.0 [facility]2016-03-19 07:07:00 Test Item Value Reference Range Interpretation Comments Chloride Lvl (test code = Chloride Lvl) 103 95-109 [facility] BrenhamKkjtkioNNKVKBCUKN2795-82-43 07:07:00 Test Item Value Reference Range Interpretation Comments RDW (test code = RDW) 14.8 11.5-14.5 [facility]2016-03-19 07:07:00 Test Item Value Reference Range Interpretation Comments Sodium Lvl (test code = Sodium Lvl) 138 135-145 [facility]2016-03-19 07:07:00 Test Item Value Reference Range Interpretation Comments Potassium Lvl (test code = Potassium 4.2 3.5-5.1 Lvl) [facility]2016-03-19 07:07:00 Test Item Value Reference Range Interpretation Comments AGAP (test code = AGAP) 15.2 10.0-20.0 [facility] BrenhamMgvosfxZERNUZWCPY1331-48-66 07:07:00 Test Item Value Reference Range Interpretation Comments Hgb (test code = Hgb) 9.9 14.0-18.0 [place] 737096-03-19 07:07:00 Test Item Value Reference Range Interpretation Comments RBC (test code = RBC) 3.40 4.70-6.10 [facility] BrenhamLjdixlcDBEWZLUDAK5237-18-01 07:07:00 Test Item Value Reference Range Interpretation Comments WBC (test code = WBC) 5.0 3.7-10.4 [facility]hamEepvoaoDGAUXCOXIP4147-06-50 07:07:00 Test Item Value Reference Range Interpretation Comments MPV (test code = MPV) 7.9 7.4-10.4 [facility] BrenhamUsawsmvFGZBSYQLGE1986-41-31 07:07:00 Test Item Value Reference Range Interpretation Comments Platelet (test code = Platelet) 218 133-450 [facility] BrenhamRkrewsjGUHXKWPPRI1838-07-59 07:07:00 Test Item Value Reference Range Interpretation Comments MCHC (test code = MCHC) 33.3 32.0-36.0 [facility]hamObccogjUMGWRHKGWP5377-11-97 07:07:00 Test Item Value Reference Range Interpretation Comments MCH (test code = MCH) 29.0 pg 27.0-31.0 [facility] BrenhamRfablqqDNYODLRTXI1496-25-34 07:07:00 Test Item Value Reference Range Interpretation Comments MCV (test code = MCV) 87.0 80.0-94.0 [facility] BrenhamJufpkzzLLONOIJGCS2245-63-55 07:07:00 Test Item Value Reference Range Interpretation Comments Hct (test code = Hct) 29.6 42.0-54.0 [facility]hamPdvbfxvQQTOOFNCKX1056-74-30 07:07:00 Test Item Value Reference Range Interpretation Comments RDW (test code = RDW) 14.8 11.5-14.5 [facility] BrenhamLhhwlriAZMVASLHMS6912-14-39 01:59:00 Test Item Value Reference Range Interpretation Comments Eosinophils # (test code 0.1 See_Comment [A utomated message] The = Eosinophils #) system whic h generated this result tra nsmitted reference range : <=0.5. The reference r delaney was not used to int erpret this result as normal/abnormal . [facility] BrenhamEkwxxxaRTNKYFYYYE6500-40-54 01:59:00 Test Item Value Reference Range Interpretation Comments Eosinophils (test code = 1.4 See_Comment [A utomated message] The Eosinophils) system which ge nerated this result tra nsmitted reference range : <=4.0. The reference r delaney was not used to int erpret this result as normal/abnormal . [facility] BrenhamFhornfmHPZZRBNNJB3960-16-17 01:59:00 Test Item Value Reference Range Interpretation Comments Monocytes (test code = Monocytes) 7.6 2.0-12.0 [facility]hamEwbfsyeJYVLLVXELK4320-81-06 01:59:00 Test Item Value Reference Range Interpretation Comments Segs (test code = Segs) 73.6 45.0-75.0 [facility] BrenhamCihsjokYIJFTNIQRH9956-86-81 01:59:00 Test Item Value Reference Range Interpretation Comments Lymphocytes (test code = Lymphocytes) 16.7 20.0-40.0 [facility] BrenhamCbqqkwkBZUVKUUTPC5394-72-75 01:59:00 Test Item Value Reference Range Interpretation Comments Segs-Bands # (test code = Segs-Bands #) 4.0 1.5-8.1 [facility] BrenhamUuuslwfWNEHKTBXER4530-80-70 01:59:00 Test Item Value Reference Range Interpretation Comments Monocytes # (test code 0.4 See_Comment [Aut omated message] The = Monocytes #) system which generated this result tra nsmitted reference range : <=0.8. The reference r delaney was not used to int erpret this result as normal/abnormal . [facility] BrenhamRhnziirWICQLOFOOM2865-51-16 01:59:00 Test Item Value Reference Range Interpretation Comments Basophils (test code = 0.7 See_Comment [Aut omated message] The Basophils) system which ge nerated this result tra nsmitted reference range : <=1.0. The reference r delanye was not used to int erpret this result as normal/abnormal . [facility] BrenhamBzwnejdZIBAYCFLUN5212-68-24 01:59:00 Test Item Value Reference Range Interpretation Comments Lymphocytes # (test code = Lymphocytes 0.9 1.0-5.5 #) [facility] BrenhamOdpdmahQDKDNBZSPI6737-76-58 01:59:00 Test Item Value Reference Range Interpretation Comments RDW (test code = RDW) 14.6 11.5-14.5 [facility]hamSpmprqcRZUNKSIZLD2519-76-33 01:59:00 Test Item Value Reference Range Interpretation Comments Platelet (test code = Platelet) 206 133-450 [facility]hamSvuvwapJUQMGCBUXY7095-44-96 01:59:00 Test Item Value Reference Range Interpretation Comments MPV (test code = MPV) 8.3 7.4-10.4 [facility]hamApozhwdRJTJDWDLIE4852-78-17 01:59:00 Test Item Value Reference Range Interpretation Comments MCV (test code = MCV) 87.2 80.0-94.0 [facility] BrenhamZrwhxhaITSQIRACCR0113-95-50 01:59:00 Test Item Value Reference Range Interpretation Comments MCHC (test code = MCHC) 33.4 32.0-36.0 [facility]hamEvcncliKQPRQAXLPD5998-36-83 01:59:00 Test Item Value Reference Range Interpretation Comments MCH (test code = MCH) 29.1 pg 27.0-31.0 [facility] BrenhamHmxcpymJJYWVPTFPO7888-80-76 01:59:00 Test Item Value Reference Range Interpretation Comments Hct (test code = Hct) 29.6 42.0-54.0 [facility] BrenhamMnlmzgmQBULUAPGIP7093-48-74 01:59:00 Test Item Value Reference Range Interpretation Comments Hgb (test code = Hgb) 9.9 14.0-18.0 [facility] BrenhamSeassuvFYTAYVSRMD9869-76-62 01:59:00 Test Item Value Reference Range Interpretation Comments WBC (test code = WBC) 5.4 3.7-10.4 [facility] BrenhamMrfndbgXHDHNARKNN2707-54-77 01:59:00 Test Item Value Reference Range Interpretation Comments RBC (test code = RBC) 3.39 4.70-6.10 [facility] BrenhamFksudjyLQYZSVCZZP1264-33-66 01:59:00 Test Item Value Reference Range Interpretation Comments Eosinophils # (test code 0.1 See_Comment [A utomated message] The = Eosinophils #) system whic h generated this result tra nsmitted reference range : <=0.5. The reference r delaney was not used to int erpret this result as normal/abnormal . [facility] BrenhamNotkdsaNDIQQKSISC0981-90-29 01:59:00 Test Item Value Reference Range Interpretation Comments Eosinophils (test code = 1.4 See_Comment [A utomated message] The Eosinophils) system which ge nerated this result tra nsmitted reference range : <=4.0. The reference r delaney was not used to int erpret this result as normal/abnormal . [facility] BrenhamFdajvyzLGOLXLJGVQ6929-30-06 01:59:00 Test Item Value Reference Range Interpretation Comments Monocytes (test code = Monocytes) 7.6 2.0-12.0 [facility] BrenhamAcopzjlSCFTTRAAFL0567-42-17 01:59:00 Test Item Value Reference Range Interpretation Comments Segs (test code = Segs) 73.6 45.0-75.0 [facility] BrenhamIabesndHZSWZQDCIF6553-43-04 01:59:00 Test Item Value Reference Range Interpretation Comments Lymphocytes (test code = Lymphocytes) 16.7 20.0-40.0 [facility] BrenhamOpsmohzKSFKHJKZCH4613-38-84 01:59:00 Test Item Value Reference Range Interpretation Comments Segs-Bands # (test code = Segs-Bands #) 4.0 1.5-8.1 [facility] BrenhamKigccaiCCTBTHPHIB9226-16-61 01:59:00 Test Item Value Reference Range Interpretation Comments Monocytes # (test code 0.4 See_Comment [Aut omated message] The = Monocytes #) system which generated this result tra nsmitted reference range : <=0.8. The reference r delaney was not used to int erpret this result as normal/abnormal . [facility]hamPpsmmwvUIIQXBWJSM2692-43-28 01:59:00 Test Item Value Reference Range Interpretation Comments Basophils (test code = 0.7 See_Comment [Aut omated message] The Basophils) system which ge nerated this result tra nsmitted reference range : <=1.0. The reference r delaney was not used to int erpret this result as normal/abnormal . [facility] BrenhamKglgaipWDUWUIDLBF0659-27-91 01:59:00 Test Item Value Reference Range Interpretation Comments Lymphocytes # (test code = Lymphocytes 0.9 1.0-5.5 #) [facility] BrenhamMaeregaMALJVHBMXO9087-83-23 01:59:00 Test Item Value Reference Range Interpretation Comments RDW (test code = RDW) 14.6 11.5-14.5 [facility] BrenhamMtrvsprFIVEEXFERF2478-85-45 01:59:00 Test Item Value Reference Range Interpretation Comments Platelet (test code = Platelet) 206 133-450 [facility] BrenhamKvdhsfxNZRLKTXGGA5236-48-08 01:59:00 Test Item Value Reference Range Interpretation Comments MPV (test code = MPV) 8.3 7.4-10.4 [facility] BrenhamJkrgdxrPNVBKZIKJO0758-13-07 01:59:00 Test Item Value Reference Range Interpretation Comments MCV (test code = MCV) 87.2 80.0-94.0 [facility] BrenhamIybrbjmYJRJJJMIFN4632-17-36 01:59:00 Test Item Value Reference Range Interpretation Comments MCHC (test code = MCHC) 33.4 32.0-36.0 [facility] BrenhamRccohvdTAUWLQIETE7612-80-64 01:59:00 Test Item Value Reference Range Interpretation Comments MCH (test code = MCH) 29.1 pg 27.0-31.0 [facility] BrenhamXhbaiugLDZMJXQXTO0920-83-59 01:59:00 Test Item Value Reference Range Interpretation Comments Hct (test code = Hct) 29.6 42.0-54.0 [facility] BrenhamPlyyopdFHPWHHYSTB0593-86-33 01:59:00 Test Item Value Reference Range Interpretation Comments Hgb (test code = Hgb) 9.9 14.0-18.0 [facility] BrenhamVzwyxwhKDDBCRALVA4123-33-03 01:59:00 Test Item Value Reference Range Interpretation Comments WBC (test code = WBC) 5.4 3.7-10.4 [facility] BrenhamHqpdyxlTNCQQUQMFL0944-68-03 01:59:00 Test Item Value Reference Range Interpretation Comments RBC (test code = RBC) 3.39 4.70-6.10 [facility] BrenhamMkwemzrWHBKNPYFRM0104-80-90 01:59:00 Test Item Value Reference Range Interpretation Comments Eosinophils # (test code 0.1 See_Comment [A utomated message] The = Eosinophils #) system whic h generated this result tra nsmitted reference range : <=0.5. The reference r delaney was not used to int erpret this result as normal/abnormal . [facility] BrenhamPughdfzDRUODSQMJF0657-00-39 01:59:00 Test Item Value Reference Range Interpretation Comments Eosinophils (test code = 1.4 See_Comment [A utomated message] The Eosinophils) system which ge nerated this result tra nsmitted reference range : <=4.0. The reference r delaney was not used to int erpret this result as normal/abnormal . [facility]hamIikhfmtVRZMVKHFQM9978-31-43 01:59:00 Test Item Value Reference Range Interpretation Comments Monocytes (test code = Monocytes) 7.6 2.0-12.0 [facility]hamQnzcwlcWLQOQIMTDL7995-80-95 01:59:00 Test Item Value Reference Range Interpretation Comments Segs (test code = Segs) 73.6 45.0-75.0 [facility]hamLzutsouRFJAEWFDMW1477-79-91 01:59:00 Test Item Value Reference Range Interpretation Comments Lymphocytes (test code = Lymphocytes) 16.7 20.0-40.0 [facility]hamFfioockKTGPLDOJOP6489-68-74 01:59:00 Test Item Value Reference Range Interpretation Comments Segs-Bands # (test code = Segs-Bands #) 4.0 1.5-8.1 [facility]hamOwsgdklQASWCVNPUH4821-35-38 01:59:00 Test Item Value Reference Range Interpretation Comments Monocytes # (test code 0.4 See_Comment [Aut omated message] The = Monocytes #) system which generated this result tra nsmitted reference range : <=0.8. The reference r delaney was not used to int erpret this result as normal/abnormal . [facility]hamKesagywKTFQWXKDKP1848-69-60 01:59:00 Test Item Value Reference Range Interpretation Comments Basophils (test code = 0.7 See_Comment [Aut omated message] The Basophils) system which ge nerated this result tra nsmitted reference range : <=1.0. The reference r delaney was not used to int erpret this result as normal/abnormal . [facility]hamAlrdizrJSULAGJLUR0522-35-84 01:59:00 Test Item Value Reference Range Interpretation Comments Lymphocytes # (test code = Lymphocytes 0.9 1.0-5.5 #) [facility]hamMpfojayJPTZKWQOII1870-92-20 01:59:00 Test Item Value Reference Range Interpretation Comments RDW (test code = RDW) 14.6 11.5-14.5 [facility]hamJdoliteEJLFZVCAZE8101-85-20 01:59:00 Test Item Value Reference Range Interpretation Comments Platelet (test code = Platelet) 206 133-450 [facility]hamIybcjwmQTFYQLZBJT5031-57-19 01:59:00 Test Item Value Reference Range Interpretation Comments MPV (test code = MPV) 8.3 7.4-10.4 [facility]hamOltbtvxSGGXFACJNB8131-06-87 01:59:00 Test Item Value Reference Range Interpretation Comments MCV (test code = MCV) 87.2 80.0-94.0 [facility]hamPvyxvkrDIVAWDMEYH9312-93-42 01:59:00 Test Item Value Reference Range Interpretation Comments MCHC (test code = MCHC) 33.4 32.0-36.0 [facility]hamRarzhdmIDLIMKVMJU1132-71-08 01:59:00 Test Item Value Reference Range Interpretation Comments MCH (test code = MCH) 29.1 pg 27.0-31.0 [facility]hamZnlydogDCTZTSJZRH7405-13-08 01:59:00 Test Item Value Reference Range Interpretation Comments Hct (test code = Hct) 29.6 42.0-54.0 [facility]hamFdqagjnUXHRXBUEBH8545-57-36 01:59:00 Test Item Value Reference Range Interpretation Comments Hgb (test code = Hgb) 9.9 14.0-18.0 [facility]hamZkpizsbYWMJEMPSOQ9600-20-63 01:59:00 Test Item Value Reference Range Interpretation Comments WBC (test code = WBC) 5.4 3.7-10.4 [facility]hamVwagngcMVOQEOKJDJ6792-42-20 01:59:00 Test Item Value Reference Range Interpretation Comments RBC (test code = RBC) 3.39 4.70-6.10 [facility]hamAlognpoFWLDYMUMWP9955-79-85 01:59:00 Test Item Value Reference Range Interpretation Comments Eosinophils # (test code 0.1 See_Comment [A utomated message] The = Eosinophils #) system whic h generated this result tra nsmitted reference range : <=0.5. The reference r delaney was not used to int erpret this result as normal/abnormal . [facility]hamAyqzkznKKUQUBCVFJ4606-19-41 01:59:00 Test Item Value Reference Range Interpretation Comments Eosinophils (test code = 1.4 See_Comment [A utomated message] The Eosinophils) system which ge nerated this result tra nsmitted reference range : <=4.0. The reference r delaney was not used to int erpret this result as normal/abnormal . [facility]hamCuodrmmOGMEXGYVDL8904-98-07 01:59:00 Test Item Value Reference Range Interpretation Comments Monocytes (test code = Monocytes) 7.6 2.0-12.0 [facility]hamCkfhgizLRFHFQWTUH2837-00-90 01:59:00 Test Item Value Reference Range Interpretation Comments Segs (test code = Segs) 73.6 45.0-75.0 [facility]hamRegyyrtCEWXXKREBN5780-13-90 01:59:00 Test Item Value Reference Range Interpretation Comments Lymphocytes (test code = Lymphocytes) 16.7 20.0-40.0 [facility]hamIpzaizqRJYTVDTVCU6293-91-96 01:59:00 Test Item Value Reference Range Interpretation Comments Segs-Bands # (test code = Segs-Bands #) 4.0 1.5-8.1 [facility]hamAyspiinJVSOWIEEWF5519-35-04 01:59:00 Test Item Value Reference Range Interpretation Comments Monocytes # (test code 0.4 See_Comment [Aut omated message] The = Monocytes #) system which generated this result tra nsmitted reference range : <=0.8. The reference r delaney was not used to int erpret this result as normal/abnormal . [facility]hamBbkbcheCUOQZGXQXT1314-28-78 01:59:00 Test Item Value Reference Range Interpretation Comments Basophils (test code = 0.7 See_Comment [Aut omated message] The Basophils) system which ge nerated this result tra nsmitted reference range : <=1.0. The reference r delaney was not used to int erpret this result as normal/abnormal . [facility]hamZpzhtjeAFMUWJYHNQ7945-21-58 01:59:00 Test Item Value Reference Range Interpretation Comments Lymphocytes # (test code = Lymphocytes 0.9 1.0-5.5 #) [facility]hamJylqnegOJKVENUPAW7803-04-98 01:59:00 Test Item Value Reference Range Interpretation Comments RDW (test code = RDW) 14.6 11.5-14.5 [facility]hamPdxjfqzHLYSMDSHEQ9234-07-73 01:59:00 Test Item Value Reference Range Interpretation Comments Platelet (test code = Platelet) 206 133-450 [facility]hamAcrkskeLEFBDVPGVJ1196-04-91 01:59:00 Test Item Value Reference Range Interpretation Comments MPV (test code = MPV) 8.3 7.4-10.4 [facility]hamWumkgdsCOYTBYAGJR3476-32-89 01:59:00 Test Item Value Reference Range Interpretation Comments MCV (test code = MCV) 87.2 80.0-94.0 [facility]hamRjwltizORZBJUESIF1995-34-10 01:59:00 Test Item Value Reference Range Interpretation Comments MCHC (test code = MCHC) 33.4 32.0-36.0 [facility]hamDzgmvonWTSTQSUJMW2163-51-64 01:59:00 Test Item Value Reference Range Interpretation Comments MCH (test code = MCH) 29.1 pg 27.0-31.0 [facility]hamJlgccvrMOTBKOFGFO1788-95-11 01:59:00 Test Item Value Reference Range Interpretation Comments Hct (test code = Hct) 29.6 42.0-54.0 [facility]hamAxvzjhhNVWWKFRBIO8970-56-02 01:59:00 Test Item Value Reference Range Interpretation Comments Hgb (test code = Hgb) 9.9 14.0-18.0 [facility]hamMqiyytdTFVZHYKPNF6706-35-08 01:59:00 Test Item Value Reference Range Interpretation Comments WBC (test code = WBC) 5.4 3.7-10.4 [facility]hamTgdwffaNZRVWTNKIG4142-79-48 01:59:00 Test Item Value Reference Range Interpretation Comments RBC (test code = RBC) 3.39 4.70-6.10 [facility]hamVjvrkrfJAYOTJSROD4751-62-45 01:59:00 Test Item Value Reference Range Interpretation Comments Eosinophils # (test code 0.1 See_Comment [A utomated message] The = Eosinophils #) system whic h generated this result tra nsmitted reference range : <=0.5. The reference r delaney was not used to int erpret this result as normal/abnormal . [facility]hamXgpcmmpEFRZETHWMY0385-73-15 01:59:00 Test Item Value Reference Range Interpretation Comments Eosinophils (test code = 1.4 See_Comment [A utomated message] The Eosinophils) system which ge nerated this result tra nsmitted reference range : <=4.0. The reference r delaney was not used to int erpret this result as normal/abnormal . [facility]hamUyrdzbcLXIEVWQFCM8873-24-62 01:59:00 Test Item Value Reference Range Interpretation Comments Monocytes (test code = Monocytes) 7.6 2.0-12.0 [facility]hamWftoeyrUUZZZKKIEZ5903-45-37 01:59:00 Test Item Value Reference Range Interpretation Comments Segs (test code = Segs) 73.6 45.0-75.0 [facility]hamNztfavxMLHRMNBOLN8968-41-53 01:59:00 Test Item Value Reference Range Interpretation Comments Lymphocytes (test code = Lymphocytes) 16.7 20.0-40.0 [facility]hamLygoeqvWREVDMCOEQ8182-27-36 01:59:00 Test Item Value Reference Range Interpretation Comments Segs-Bands # (test code = Segs-Bands #) 4.0 1.5-8.1 [facility]hamPricxzjYVUMQSQICF2774-33-29 01:59:00 Test Item Value Reference Range Interpretation Comments Monocytes # (test code 0.4 See_Comment [Aut omated message] The = Monocytes #) system which generated this result tra nsmitted reference range : <=0.8. The reference r delaney was not used to int erpret this result as normal/abnormal . [facility]hamWrycrvbFQOAUMSCUL3726-86-43 01:59:00 Test Item Value Reference Range Interpretation Comments Basophils (test code = 0.7 See_Comment [Aut omated message] The Basophils) system which ge nerated this result tra nsmitted reference range : <=1.0. The reference r delaney was not used to int erpret this result as normal/abnormal . [facility]hamRuxgjzbIMEXYWFKYZ6047-46-72 01:59:00 Test Item Value Reference Range Interpretation Comments Lymphocytes # (test code = Lymphocytes 0.9 1.0-5.5 #) [facility]hamUiinfjtHRDHHODKLO5388-50-76 01:59:00 Test Item Value Reference Range Interpretation Comments RDW (test code = RDW) 14.6 11.5-14.5 [facility]hamVbixkuiGMIHKGZFGS6324-23-85 01:59:00 Test Item Value Reference Range Interpretation Comments Platelet (test code = Platelet) 206 133-450 [facility]hamHektsqoXPXQHIKNWG1046-81-10 01:59:00 Test Item Value Reference Range Interpretation Comments MPV (test code = MPV) 8.3 7.4-10.4 [facility]hamSimdwsgALURBGFZDV8962-35-32 01:59:00 Test Item Value Reference Range Interpretation Comments MCV (test code = MCV) 87.2 80.0-94.0 [facility]hamVvkwtmpACKUBXKMDO4214-46-08 01:59:00 Test Item Value Reference Range Interpretation Comments MCHC (test code = MCHC) 33.4 32.0-36.0 [facility]hamAtnrpydWMMBCBRGCV4624-85-27 01:59:00 Test Item Value Reference Range Interpretation Comments Eosinophils # (test code 0.1 See_Comment [A utomated message] The = Eosinophils #) system whic h generated this result tra nsmitted reference range : <=0.5. The reference r delaney was not used to int erpret this result as normal/abnormal . [facility]hamLfjoyooEJDYICKFCT7853-30-67 01:59:00 Test Item Value Reference Range Interpretation Comments MCH (test code = MCH) 29.1 pg 27.0-31.0 [facility] BrenhamBcorqqkSDXUGJXHSZ2202-13-55 01:59:00 Test Item Value Reference Range Interpretation Comments Eosinophils (test code = 1.4 See_Comment [A utomated message] The Eosinophils) system which ge nerated this result tra nsmitted reference range : <=4.0. The reference r delaney was not used to int erpret this result as normal/abnormal . [facility]hamIvlgpaaHIWQEVOMMX5595-10-98 01:59:00 Test Item Value Reference Range Interpretation Comments Hct (test code = Hct) 29.6 42.0-54.0 [facility]hamVxfjzeaSHUMCKGXMQ4483-43-19 01:59:00 Test Item Value Reference Range Interpretation Comments Monocytes (test code = Monocytes) 7.6 2.0-12.0 [facility]hamIdelduoUUYBJXYDNA2945-35-12 01:59:00 Test Item Value Reference Range Interpretation Comments Hgb (test code = Hgb) 9.9 14.0-18.0 [facility]hamNcjwclfIEOSLQDTGL6977-57-84 01:59:00 Test Item Value Reference Range Interpretation Comments Segs (test code = Segs) 73.6 45.0-75.0 [facility]hamAakhavzDXVRCRINSJ3015-33-54 01:59:00 Test Item Value Reference Range Interpretation Comments WBC (test code = WBC) 5.4 3.7-10.4 [facility]hamMykunkqTPPTRTVGFM2046-61-53 01:59:00 Test Item Value Reference Range Interpretation Comments Lymphocytes (test code = Lymphocytes) 16.7 20.0-40.0 [facility]hamUuambhlTVMVGBXOCF7536-69-90 01:59:00 Test Item Value Reference Range Interpretation Comments RBC (test code = RBC) 3.39 4.70-6.10 [facility]hamKtgfjdxCIMICYJUSM2712-62-33 01:59:00 Test Item Value Reference Range Interpretation Comments Segs-Bands # (test code = Segs-Bands #) 4.0 1.5-8.1 [facility]hamUccjalxTLWXHQHYCF3833-50-90 01:59:00 Test Item Value Reference Range Interpretation Comments Monocytes # (test code 0.4 See_Comment [Aut omated message] The = Monocytes #) system which generated this result tra nsmitted reference range : <=0.8. The reference r delaney was not used to int erpret this result as normal/abnormal . [facility]hamIkrygecAWMNJONTUS5113-31-02 01:59:00 Test Item Value Reference Range Interpretation Comments Basophils (test code = 0.7 See_Comment [Aut omated message] The Basophils) system which ge nerated this result tra nsmitted reference range : <=1.0. The reference r delaney was not used to int erpret this result as normal/abnormal . [facility] BrenhamZqfavhaIGRXECUSSV2887-90-60 01:59:00 Test Item Value Reference Range Interpretation Comments Lymphocytes # (test code = Lymphocytes 0.9 1.0-5.5 #) [facility]hamQqbcjgoMILZLKFLLM8019-01-42 01:59:00 Test Item Value Reference Range Interpretation Comments RDW (test code = RDW) 14.6 11.5-14.5 [facility]hamRopcrkmTJVBYYZVFZ6133-08-16 01:59:00 Test Item Value Reference Range Interpretation Comments Platelet (test code = Platelet) 206 133-450 [facility]hamDwzpiqsEUWTEMCGHU1277-85-57 01:59:00 Test Item Value Reference Range Interpretation Comments MPV (test code = MPV) 8.3 7.4-10.4 [facility]hamTosqzcaSIYPUMJOQL6240-19-94 01:59:00 Test Item Value Reference Range Interpretation Comments MCV (test code = MCV) 87.2 80.0-94.0 [facility]hamHiwehkuAPOQZPFFMM4834-30-97 01:59:00 Test Item Value Reference Range Interpretation Comments MCHC (test code = MCHC) 33.4 32.0-36.0 [facility] BrenhamRerlbteYNDKMRJMID5782-79-35 01:59:00 Test Item Value Reference Range Interpretation Comments MCH (test code = MCH) 29.1 pg 27.0-31.0 [facility] BrenhamCsrenlrSFEBXSBITL2885-51-59 01:59:00 Test Item Value Reference Range Interpretation Comments Hct (test code = Hct) 29.6 42.0-54.0 [facility]hamBlfbtsgOQTJYQKUIE4985-20-41 01:59:00 Test Item Value Reference Range Interpretation Comments Hgb (test code = Hgb) 9.9 14.0-18.0 [facility]hamFdmjegyZJNWELPKLC2556-27-82 01:59:00 Test Item Value Reference Range Interpretation Comments WBC (test code = WBC) 5.4 3.7-10.4 [facility]hamPtwutbcVIECVHCHBH2038-64-49 01:59:00 Test Item Value Reference Range Interpretation Comments RBC (test code = RBC) 3.39 4.70-6.10 [facility]IqfekflCYFDYMEXFRJW0056-12-37 06:53:00 Test Item Value Reference Range Interpretation Comments Calcium Lvl (test code = Calcium Lvl) 8.2 8.5-10.5 [facility]hamJmztmbzLYKNGIPFUG1107-06-29 06:53:00 Test Item Value Reference Range Interpretation Comments Basophils (test code = 1.7 See_Comment [Aut omated message] The Basophils) system which ge nerated this result tra nsmitted reference range : <=1.0. The reference r delaney was not used to int erpret this result as normal/abnormal . [facility]WnwujbcATMZHOJHHANM1327-59-66 06:53:00 Test Item Value Reference Range Interpretation Comments Sodium Lvl (test code = Sodium Lvl) 140 135-145 [facility]hamFstkcpjMJQYDUCAPV6236-46-15 06:53:00 Test Item Value Reference Range Interpretation Comments Eosinophils (test code = 1.6 See_Comment [A utomated message] The Eosinophils) system which ge nerated this result tra nsmitted reference range : <=4.0. The reference r delaney was not used to int erpret this result as normal/abnormal . [facility] HospitalHyznqjpHAPKSEBBVLVK3139-95-51 06:53:00 Test Item Value Reference Range Interpretation Comments CO2 (test code = CO2) 27 24-32 [facility]hamCalnauwMHZTFVGYPG6884-12-71 06:53:00 Test Item Value Reference Range Interpretation Comments Lymphocytes # (test code = Lymphocytes 0.8 1.0-5.5 #) [facility] HospitalZsiovvdIMYSUGRLMMVO2876-80-97 06:53:00 Test Item Value Reference Range Interpretation Comments Potassium Lvl (test code = Potassium 4.7 3.5-5.1 Lvl) [facility]hamKskiikeHPBHJWCGLA4353-62-21 06:53:00 Test Item Value Reference Range Interpretation Comments Segs-Bands # (test code = Segs-Bands #) 3.0 1.5-8.1 [facility]MfjjvpoLICAMOFNGNZH2471-27-02 06:53:00 Test Item Value Reference Range Interpretation Comments Chloride Lvl (test code = Chloride Lvl) 105 95-109 [facility]hamCeaujjvCVXCKAETTI8818-93-19 06:53:00 Test Item Value Reference Range Interpretation Comments MCV (test code = MCV) 87.7 80.0-94.0 [facility] HospitalRyvievvLBAXEFMNJSID1478-54-52 06:53:00 Test Item Value Reference Range Interpretation Comments eGFR (test code = eGFR) 83 [facility]hamTkrhqktOZLKGKXZJD9312-95-81 06:53:00 Test Item Value Reference Range Interpretation Comments MCH (test code = MCH) 29.2 pg 27.0-31.0 [facility] HospitalZjvdfjyYMQSQYXOIOJY7122-63-45 06:53:00 Test Item Value Reference Range Interpretation Comments Creatinine Lvl (test code = Creatinine 0.94 0.50-1.40 Lvl) [facility]hamSabnfilCRSLRYVNXE2141-80-61 06:53:00 Test Item Value Reference Range Interpretation Comments RDW (test code = RDW) 15.1 11.5-14.5 [facility] HospitalNxrddajABHWTESLMZCG7168-02-16 06:53:00 Test Item Value Reference Range Interpretation Comments BUN (test code = BUN) 12 7-22 [facility]hamSnqdaecFCNWMVTFSW8659-71-84 06:53:00 Test Item Value Reference Range Interpretation Comments Platelet (test code = Platelet) 188 133-450 [facility] HospitalLhrvbbaGZNDMCOHLCCN2437-12-41 06:53:00 Test Item Value Reference Range Interpretation Comments Glucose Lvl (test code = Glucose Lvl) 178 70-99 [facility]hamRxzlwdzDNPZFRQIFM0580-14-84 06:53:00 Test Item Value Reference Range Interpretation Comments MCHC (test code = MCHC) 33.3 32.0-36.0 [facility]hamHeibuzqKYYGAYEAQJ2770-87-20 06:53:00 Test Item Value Reference Range Interpretation Comments Basophils # (test code 0.1 See_Comment [Aut omated message] The = Basophils #) system which generated this result tra nsmitted reference range : <=0.2. The reference r delaney was not used to int erpret this result as normal/abnormal . [facility]hamCdwwrneDMUMDHWWCW6658-54-20 06:53:00 Test Item Value Reference Range Interpretation Comments WBC (test code = WBC) 4.2 3.7-10.4 [facility]hamWaphglmWLTOMPDFYC6066-17-15 06:53:00 Test Item Value Reference Range Interpretation Comments RBC (test code = RBC) 3.35 4.70-6.10 [facility]hamKcaogkfHDTZSYKYZA3187-45-75 06:53:00 Test Item Value Reference Range Interpretation Comments Monocytes # (test code 0.2 See_Comment [Aut omated message] The = Monocytes #) system which generated this result tra nsmitted reference range : <=0.8. The reference r delaney was not used to int erpret this result as normal/abnormal . [facility]hamJdgabthQZCUGBOIBV2447-13-12 06:53:00 Test Item Value Reference Range Interpretation Comments Hgb (test code = Hgb) 9.8 14.0-18.0 [facility]hamQmifcmuRPVGZDPOZG5191-72-32 06:53:00 Test Item Value Reference Range Interpretation Comments Lymphocytes (test code = Lymphocytes) 19.0 20.0-40.0 [facility]hamQaqlwqmCFSUAOLIJT0777-16-35 06:53:00 Test Item Value Reference Range Interpretation Comments Hct (test code = Hct) 29.4 42.0-54.0 [facility]hamUztqoamWXTIJIEXXN1987-81-47 06:53:00 Test Item Value Reference Range Interpretation Comments Monocytes (test code = Monocytes) 5.6 2.0-12.0 [facility]hamEeowssnQZOOQCJJAM1873-42-80 06:53:00 Test Item Value Reference Range Interpretation Comments MPV (test code = MPV) 8.3 7.4-10.4 [place] 737096-03-18 06:53:00 Test Item Value Reference Range Interpretation Comments Segs (test code = Segs) 72.1 45.0-75.0 [facility]hamViykxuzGILNHWLRZP7510-39-72 06:53:00 Test Item Value Reference Range Interpretation Comments Eosinophils # (test code 0.1 See_Comment [A utomated message] The = Eosinophils #) system whic h generated this result tra nsmitted reference range : <=0.5. The reference r delaney was not used to int erpret this result as normal/abnormal . [facility]hamMgtsjxtTICSSGPUXE6791-52-67 06:53:00 Test Item Value Reference Range Interpretation Comments Basophils (test code = 1.7 See_Comment [Aut omated message] The Basophils) system which ge nerated this result tra nsmitted reference range : <=1.0. The reference r delaney was not used to int erpret this result as normal/abnormal . [facility] BrenhamItvuyolTARBHUNZXP3339-48-68 06:53:00 Test Item Value Reference Range Interpretation Comments Eosinophils (test code = 1.6 See_Comment [A utomated message] The Eosinophils) system which ge nerated this result tra nsmitted reference range : <=4.0. The reference r delaney was not used to int erpret this result as normal/abnormal . [facility] BrenhamEdxqleyNHHTYGXLHU3133-84-18 06:53:00 Test Item Value Reference Range Interpretation Comments Lymphocytes # (test code = Lymphocytes 0.8 1.0-5.5 #) [facility] BrenhamSvtnibqAOCCGSJJAS6809-94-17 06:53:00 Test Item Value Reference Range Interpretation Comments Segs-Bands # (test code = Segs-Bands #) 3.0 1.5-8.1 [place] 737096-03-18 06:53:00 Test Item Value Reference Range Interpretation Comments MCV (test code = MCV) 87.7 80.0-94.0 [place] 737096-03-18 06:53:00 Test Item Value Reference Range Interpretation Comments MCH (test code = MCH) 29.2 pg 27.0-31.0 [facility] BrenhamXemhuvpVYHRUKANAS2187-51-50 06:53:00 Test Item Value Reference Range Interpretation Comments RDW (test code = RDW) 15.1 11.5-14.5 [facility] BrenhamHxrudavRFGUWGXFUU9906-15-02 06:53:00 Test Item Value Reference Range Interpretation Comments Platelet (test code = Platelet) 188 133-450 [facility]hamZwvpsntRDGYFYCGCG9213-98-58 06:53:00 Test Item Value Reference Range Interpretation Comments MCHC (test code = MCHC) 33.3 32.0-36.0 [facility]hamRjhdxzqUBMIXSPAZT9023-19-65 06:53:00 Test Item Value Reference Range Interpretation Comments WBC (test code = WBC) 4.2 3.7-10.4 [facility]hamIqfljneSCYCXJAGRG9720-60-46 06:53:00 Test Item Value Reference Range Interpretation Comments RBC (test code = RBC) 3.35 4.70-6.10 [facility]hamEgukbbhZZGVIRALTW6229-01-69 06:53:00 Test Item Value Reference Range Interpretation Comments Hgb (test code = Hgb) 9.8 14.0-18.0 [place] 737096-03-18 06:53:00 Test Item Value Reference Range Interpretation Comments Hct (test code = Hct) 29.4 42.0-54.0 [facility]hamZerotozRGGJIYPENI9583-85-00 06:53:00 Test Item Value Reference Range Interpretation Comments MPV (test code = MPV) 8.3 7.4-10.4 [facility] KWHXJ9791-14-67 06:53:00 Test Item Value Reference Range Interpretation Comments Phosphorus (test code = Phosphorus) 3.3 2.5-4.5 [facility] QRKIX9243-51-18 06:53:00 Test Item Value Reference Range Interpretation Comments Magnesium Lvl (test code = Magnesium 1.8 1.8-2.4 Lvl) [facility]MxfzeeoOKNKLCOPQDBK7338-51-36 06:53:00 Test Item Value Reference Range Interpretation Comments AGAP (test code = AGAP) 12.7 10.0-20.0 [facility] HospitalDvuvjvsDZHKSIWEGYAK9992-28-21 06:53:00 Test Item Value Reference Range Interpretation Comments Calcium Lvl (test code = Calcium Lvl) 8.2 8.5-10.5 [facility] HospitalViztinuWPIYXQHCHYRZ4559-85-31 06:53:00 Test Item Value Reference Range Interpretation Comments Sodium Lvl (test code = Sodium Lvl) 140 135-145 [facility] HospitalEjaxgviVDMCEJRSSFEJ9915-60-29 06:53:00 Test Item Value Reference Range Interpretation Comments CO2 (test code = CO2) 27 24-32 [facility] HospitalHxtktsrXFFNFCRCDUMX0867-07-67 06:53:00 Test Item Value Reference Range Interpretation Comments Potassium Lvl (test code = Potassium 4.7 3.5-5.1 Lvl) [facility] HospitalFvssdqzDOKHNAFWDIPA7706-93-41 06:53:00 Test Item Value Reference Range Interpretation Comments Chloride Lvl (test code = Chloride Lvl) 105 95-109 [facility] HospitalZrmattyBHOQFWXQHCWV4254-31-34 06:53:00 Test Item Value Reference Range Interpretation Comments eGFR (test code = eGFR) 83 [facility] HospitalGaieelxWMTHIVOOEWGY7722-72-76 06:53:00 Test Item Value Reference Range Interpretation Comments Creatinine Lvl (test code = Creatinine 0.94 0.50-1.40 Lvl) [facility] HospitalUmewnawWRIBORWITKNK2619-53-18 06:53:00 Test Item Value Reference Range Interpretation Comments BUN (test code = BUN) 12 7-22 [facility] HospitalLedtmhtJUTJOZBUKBCK9169-17-55 06:53:00 Test Item Value Reference Range Interpretation Comments Glucose Lvl (test code = Glucose Lvl) 178 70-99 [facility]hamGdszqhtFMXNVUAJAT0447-16-11 06:53:00 Test Item Value Reference Range Interpretation Comments Basophils # (test code 0.1 See_Comment [Aut omated message] The = Basophils #) system which generated this result tra nsmitted reference range : <=0.2. The reference r delaney was not used to int erpret this result as normal/abnormal . [facility]hamXpokqzpLGGOURERBI1538-05-96 06:53:00 Test Item Value Reference Range Interpretation Comments Monocytes # (test code 0.2 See_Comment [Aut omated message] The = Monocytes #) system which generated this result tra nsmitted reference range : <=0.8. The reference r delaney was not used to int erpret this result as normal/abnormal . [facility]hamJvzaazuRNIFYCGJZB7595-12-10 06:53:00 Test Item Value Reference Range Interpretation Comments Lymphocytes (test code = Lymphocytes) 19.0 20.0-40.0 [facility]hamIcyhrmoYFVXWGHOPT0037-52-38 06:53:00 Test Item Value Reference Range Interpretation Comments Monocytes (test code = Monocytes) 5.6 2.0-12.0 [facility]hamFugudleHTDGJDRVKJ6419-44-06 06:53:00 Test Item Value Reference Range Interpretation Comments Segs (test code = Segs) 72.1 45.0-75.0 [facility]hamFjfegjzMFATGIQMPA2075-05-49 06:53:00 Test Item Value Reference Range Interpretation Comments Eosinophils # (test code 0.1 See_Comment [A utomated message] The = Eosinophils #) system whic h generated this result tra nsmitted reference range : <=0.5. The reference r delaney was not used to int erpret this result as normal/abnormal . [facility]hamRhvxzlnKVMLEUSXPA9457-01-89 06:53:00 Test Item Value Reference Range Interpretation Comments Basophils (test code = 1.7 See_Comment [Aut omated message] The Basophils) system which ge nerated this result tra nsmitted reference range : <=1.0. The reference r delaney was not used to int erpret this result as normal/abnormal . [facility]hamEjncutpNJDHVUOZMW2894-32-69 06:53:00 Test Item Value Reference Range Interpretation Comments Eosinophils (test code = 1.6 See_Comment [A utomated message] The Eosinophils) system which ge nerated this result tra nsmitted reference range : <=4.0. The reference r delaney was not used to int erpret this result as normal/abnormal . [facility]hamHvykymuLHBVOGJIFH8626-07-96 06:53:00 Test Item Value Reference Range Interpretation Comments Lymphocytes # (test code = Lymphocytes 0.8 1.0-5.5 #) [facility]hamBynpwtoGCJTIHTRBV7708-10-18 06:53:00 Test Item Value Reference Range Interpretation Comments Segs-Bands # (test code = Segs-Bands #) 3.0 1.5-8.1 [place] 737096-03-18 06:53:00 Test Item Value Reference Range Interpretation Comments MCV (test code = MCV) 87.7 80.0-94.0 [facility]hamMdcmtvuMUXHBSVSDN6808-50-97 06:53:00 Test Item Value Reference Range Interpretation Comments MCH (test code = MCH) 29.2 pg 27.0-31.0 [facility]hamOpcqprmMDYUCUXKHW2540-28-61 06:53:00 Test Item Value Reference Range Interpretation Comments RDW (test code = RDW) 15.1 11.5-14.5 [facility]hamOgjzlvcGLKYZEZSTT6173-53-28 06:53:00 Test Item Value Reference Range Interpretation Comments Platelet (test code = Platelet) 188 133-450 [facility]hamPidxrxyNDWJADQAVM7794-89-00 06:53:00 Test Item Value Reference Range Interpretation Comments MCHC (test code = MCHC) 33.3 32.0-36.0 [facility]hamIgblgtbPFCZAOMFCS8868-09-25 06:53:00 Test Item Value Reference Range Interpretation Comments WBC (test code = WBC) 4.2 3.7-10.4 [facility]hamHntyyarKQFYWVMXKD5640-38-32 06:53:00 Test Item Value Reference Range Interpretation Comments RBC (test code = RBC) 3.35 4.70-6.10 [facility]hamYxvlphxKTJIPNLLZK5870-85-34 06:53:00 Test Item Value Reference Range Interpretation Comments Hgb (test code = Hgb) 9.8 14.0-18.0 [place] 737096-03-18 06:53:00 Test Item Value Reference Range Interpretation Comments Hct (test code = Hct) 29.4 42.0-54.0 [facility]hamHrludzkUKFAJBUBGH6945-37-22 06:53:00 Test Item Value Reference Range Interpretation Comments MPV (test code = MPV) 8.3 7.4-10.4 [facility]2016-03-18 06:53:00 Test Item Value Reference Range Interpretation Comments Phosphorus (test code = Phosphorus) 3.3 2.5-4.5 [facility]2016-03-18 06:53:00 Test Item Value Reference Range Interpretation Comments Magnesium Lvl (test code = Magnesium 1.8 1.8-2.4 Lvl) [facility] HospitalFczfdzhVTFXHFVSNHIK4748-35-89 06:53:00 Test Item Value Reference Range Interpretation Comments AGAP (test code = AGAP) 12.7 10.0-20.0 [facility] HospitalJhpjepqMXAWPKMCKLTD6539-10-79 06:53:00 Test Item Value Reference Range Interpretation Comments Calcium Lvl (test code = Calcium Lvl) 8.2 8.5-10.5 [facility] HospitalLkyskkyZVLIHSTDAYOC9916-00-47 06:53:00 Test Item Value Reference Range Interpretation Comments Sodium Lvl (test code = Sodium Lvl) 140 135-145 [facility] HospitalBfauivuMEKLWTHDHRRQ5760-04-68 06:53:00 Test Item Value Reference Range Interpretation Comments CO2 (test code = CO2) 27 24-32 [facility] HospitalDhpiaieYJWRNGMZZBYU0194-93-19 06:53:00 Test Item Value Reference Range Interpretation Comments Potassium Lvl (test code = Potassium 4.7 3.5-5.1 Lvl) [facility] HospitalGnzuuyfZHNYMIURAMVI5994-07-32 06:53:00 Test Item Value Reference Range Interpretation Comments Chloride Lvl (test code = Chloride Lvl) 105 95-109 [facility] HospitalRdevfaaAKELMGDCFZYP0192-74-38 06:53:00 Test Item Value Reference Range Interpretation Comments eGFR (test code = eGFR) 83 [facility] HospitalKrjgsnhJQLHVVGNVSIQ0157-53-31 06:53:00 Test Item Value Reference Range Interpretation Comments Creatinine Lvl (test code = Creatinine 0.94 0.50-1.40 Lvl) [facility] HospitalOtczfbyJNBAFFMEENHB6986-59-60 06:53:00 Test Item Value Reference Range Interpretation Comments BUN (test code = BUN) 12 7-22 [facility] HospitalRjcivhdZSJOXCKPMOPP6719-22-02 06:53:00 Test Item Value Reference Range Interpretation Comments Glucose Lvl (test code = Glucose Lvl) 178 70-99 [facility]hamKqlprpfOMAAJIMQAG5647-93-84 06:53:00 Test Item Value Reference Range Interpretation Comments Basophils # (test code 0.1 See_Comment [Aut omated message] The = Basophils #) system which generated this result tra nsmitted reference range : <=0.2. The reference r delaney was not used to int erpret this result as normal/abnormal . [facility]hamVgnzwrpZPBJHOHEQH3867-08-23 06:53:00 Test Item Value Reference Range Interpretation Comments Monocytes # (test code 0.2 See_Comment [Aut omated message] The = Monocytes #) system which generated this result tra nsmitted reference range : <=0.8. The reference r delaney was not used to int erpret this result as normal/abnormal . [facility]hamQrcvtogTUFVSFAWOO8943-78-66 06:53:00 Test Item Value Reference Range Interpretation Comments Lymphocytes (test code = Lymphocytes) 19.0 20.0-40.0 [facility]hamDuiubbyQOJWSNKAYP4997-13-32 06:53:00 Test Item Value Reference Range Interpretation Comments Monocytes (test code = Monocytes) 5.6 2.0-12.0 [facility]hamPltzgbhUHKTDPZFBX2178-01-64 06:53:00 Test Item Value Reference Range Interpretation Comments Segs (test code = Segs) 72.1 45.0-75.0 [facility]hamOvbedtjDXKXPVNTGG5805-42-73 06:53:00 Test Item Value Reference Range Interpretation Comments Eosinophils # (test code 0.1 See_Comment [A utomated message] The = Eosinophils #) system whic h generated this result tra nsmitted reference range : <=0.5. The reference r delaney was not used to int erpret this result as normal/abnormal . [facility]hamFciphfaWOFYULDMOZ3391-79-89 06:53:00 Test Item Value Reference Range Interpretation Comments Basophils (test code = 1.7 See_Comment [Aut omated message] The Basophils) system which ge nerated this result tra nsmitted reference range : <=1.0. The reference r delaney was not used to int erpret this result as normal/abnormal . [facility]hamDfwnxczFZAWNJAYZB9384-08-68 06:53:00 Test Item Value Reference Range Interpretation Comments Eosinophils (test code = 1.6 See_Comment [A utomated message] The Eosinophils) system which ge nerated this result tra nsmitted reference range : <=4.0. The reference r delaney was not used to int erpret this result as normal/abnormal . [facility]hamMtwzbgfDIGYXXUEVC3594-15-48 06:53:00 Test Item Value Reference Range Interpretation Comments Lymphocytes # (test code = Lymphocytes 0.8 1.0-5.5 #) [facility]hamPojjpecDIYVKUKIPV1445-66-45 06:53:00 Test Item Value Reference Range Interpretation Comments Segs-Bands # (test code = Segs-Bands #) 3.0 1.5-8.1 [facility]hamRbpcpmvZOJUCGUDWJ0865-91-63 06:53:00 Test Item Value Reference Range Interpretation Comments MCV (test code = MCV) 87.7 80.0-94.0 [facility]hamHgkjlaaXBKZCVUWTU5458-37-46 06:53:00 Test Item Value Reference Range Interpretation Comments MCH (test code = MCH) 29.2 pg 27.0-31.0 [facility]hamGnddbccECGCAATYVE2803-59-42 06:53:00 Test Item Value Reference Range Interpretation Comments RDW (test code = RDW) 15.1 11.5-14.5 [facility]hamSljmlppZQSEELWPKQ8515-70-05 06:53:00 Test Item Value Reference Range Interpretation Comments Platelet (test code = Platelet) 188 133-450 [facility]hamSuoxhvrABWEGVVUQS0850-85-36 06:53:00 Test Item Value Reference Range Interpretation Comments MCHC (test code = MCHC) 33.3 32.0-36.0 [facility]hamCvsyewjGIVKGVKGNK9189-44-18 06:53:00 Test Item Value Reference Range Interpretation Comments WBC (test code = WBC) 4.2 3.7-10.4 [facility]hamZmowxgoYEBLSTADHD7346-16-68 06:53:00 Test Item Value Reference Range Interpretation Comments RBC (test code = RBC) 3.35 4.70-6.10 [facility]hamJlrabnnCQUBVLRUVV6911-64-28 06:53:00 Test Item Value Reference Range Interpretation Comments Hgb (test code = Hgb) 9.8 14.0-18.0 [facility]hamZhsksjbKBSLNUQQHS9027-41-72 06:53:00 Test Item Value Reference Range Interpretation Comments Hct (test code = Hct) 29.4 42.0-54.0 [facility]hamFpcgicqXCUMGKPCFG0758-19-58 06:53:00 Test Item Value Reference Range Interpretation Comments MPV (test code = MPV) 8.3 7.4-10.4 [facility]CHEM JTOSV2619-83-59 06:53:00 Test Item Value Reference Range Interpretation Comments Phosphorus (test code = Phosphorus) 3.3 2.5-4.5 [facility]CHEM LDDQM9939-33-17 06:53:00 Test Item Value Reference Range Interpretation Comments Magnesium Lvl (test code = Magnesium 1.8 1.8-2.4 Lvl) [facility] HospitalMekppjzLZDVPWHVYOEF8323-43-33 06:53:00 Test Item Value Reference Range Interpretation Comments AGAP (test code = AGAP) 12.7 10.0-20.0 [facility] HospitalVhpxmllYLLRWDDLKIHM6385-48-44 06:53:00 Test Item Value Reference Range Interpretation Comments Calcium Lvl (test code = Calcium Lvl) 8.2 8.5-10.5 [facility] HospitalOzzhssxULTJKBJYFMNX1225-68-69 06:53:00 Test Item Value Reference Range Interpretation Comments Sodium Lvl (test code = Sodium Lvl) 140 135-145 [facility] HospitalCklszgoQKUCLYRACZTY0645-50-92 06:53:00 Test Item Value Reference Range Interpretation Comments CO2 (test code = CO2) 27 24-32 [facility] HospitalJdwdtwaTKYHOQYOCTYU0203-96-56 06:53:00 Test Item Value Reference Range Interpretation Comments Potassium Lvl (test code = Potassium 4.7 3.5-5.1 Lvl) [facility] HospitalNkbqvgnKQEEILUKKSQD7220-60-82 06:53:00 Test Item Value Reference Range Interpretation Comments Chloride Lvl (test code = Chloride Lvl) 105 95-109 [facility] HospitalQnuobmvPWNPLPXWYETV1971-49-10 06:53:00 Test Item Value Reference Range Interpretation Comments eGFR (test code = eGFR) 83 [facility] HospitalMdphikzHAZXEVTNSJHA5697-08-09 06:53:00 Test Item Value Reference Range Interpretation Comments Creatinine Lvl (test code = Creatinine 0.94 0.50-1.40 Lvl) [facility] HospitalOltiumyKAOIYMAQWHHZ0097-63-85 06:53:00 Test Item Value Reference Range Interpretation Comments BUN (test code = BUN) 12 7-22 [facility] HospitalCvivbgvQFFPTMPMEHHZ6642-44-22 06:53:00 Test Item Value Reference Range Interpretation Comments Glucose Lvl (test code = Glucose Lvl) 178 70-99 [facility]hamFbzzhyqLYFSIGRNSJ6010-48-52 06:53:00 Test Item Value Reference Range Interpretation Comments Basophils # (test code 0.1 See_Comment [Aut omated message] The = Basophils #) system which generated this result tra nsmitted reference range : <=0.2. The reference r delaney was not used to int erpret this result as normal/abnormal . [facility]hamPnspyogQMVCYNZPVN5207-35-99 06:53:00 Test Item Value Reference Range Interpretation Comments Monocytes # (test code 0.2 See_Comment [Aut omated message] The = Monocytes #) system which generated this result tra nsmitted reference range : <=0.8. The reference r delaney was not used to int erpret this result as normal/abnormal . [facility]hamDyazlbcUPJOHYFMWO5742-48-33 06:53:00 Test Item Value Reference Range Interpretation Comments Lymphocytes (test code = Lymphocytes) 19.0 20.0-40.0 [facility]hamVmgvvmsZDSEZGAYSI0489-52-07 06:53:00 Test Item Value Reference Range Interpretation Comments Monocytes (test code = Monocytes) 5.6 2.0-12.0 [facility]hamHicyeuqNFMGYMXOIC2682-31-81 06:53:00 Test Item Value Reference Range Interpretation Comments Segs (test code = Segs) 72.1 45.0-75.0 [facility] BrenhamYzyqseqDDCQDYFWWA1397-06-98 06:53:00 Test Item Value Reference Range Interpretation Comments Eosinophils # (test code 0.1 See_Comment [A utomated message] The = Eosinophils #) system whic h generated this result tra nsmitted reference range : <=0.5. The reference r delaney was not used to int erpret this result as normal/abnormal . [facility]hamLsixukmHJGKLFWESI0578-60-52 06:53:00 Test Item Value Reference Range Interpretation Comments Basophils (test code = 1.7 See_Comment [Aut omated message] The Basophils) system which ge nerated this result tra nsmitted reference range : <=1.0. The reference r delaney was not used to int erpret this result as normal/abnormal . [facility]hamBiblqsqLEFUXQEWLP1894-56-26 06:53:00 Test Item Value Reference Range Interpretation Comments Eosinophils (test code = 1.6 See_Comment [A utomated message] The Eosinophils) system which ge nerated this result tra nsmitted reference range : <=4.0. The reference r delaney was not used to int erpret this result as normal/abnormal . [facility] BrenhamIhtduyiEEIWEALOLR7599-58-46 06:53:00 Test Item Value Reference Range Interpretation Comments Lymphocytes # (test code = Lymphocytes 0.8 1.0-5.5 #) [facility]hamWbmrydsHLWANKYBEX4658-99-45 06:53:00 Test Item Value Reference Range Interpretation Comments Segs-Bands # (test code = Segs-Bands #) 3.0 1.5-8.1 [facility]hamPvoisnhCGISRZJWIU9675-75-36 06:53:00 Test Item Value Reference Range Interpretation Comments MCV (test code = MCV) 87.7 80.0-94.0 [facility]hamAzxtnpbVEHWBOFMHN0077-14-39 06:53:00 Test Item Value Reference Range Interpretation Comments MCH (test code = MCH) 29.2 pg 27.0-31.0 [facility] BrenhamSskvfzdPARKVFWPEH1245-30-88 06:53:00 Test Item Value Reference Range Interpretation Comments RDW (test code = RDW) 15.1 11.5-14.5 [facility]hamGonvgchYCFJWHBVNI6580-80-77 06:53:00 Test Item Value Reference Range Interpretation Comments Platelet (test code = Platelet) 188 133-450 [facility] BrenhamNadvsdbAPSOGZZOYK5076-09-86 06:53:00 Test Item Value Reference Range Interpretation Comments MCHC (test code = MCHC) 33.3 32.0-36.0 [facility]hamLmvntsnPILVGYUCZM6942-88-45 06:53:00 Test Item Value Reference Range Interpretation Comments WBC (test code = WBC) 4.2 3.7-10.4 [facility] BrenhamOxocizrCLGHEWCRKP5438-61-66 06:53:00 Test Item Value Reference Range Interpretation Comments RBC (test code = RBC) 3.35 4.70-6.10 [facility]hamEjlylbgGKYPGLWATB4533-88-31 06:53:00 Test Item Value Reference Range Interpretation Comments Hgb (test code = Hgb) 9.8 14.0-18.0 [facility]hamChjetthUPMYAWSIOF6683-60-91 06:53:00 Test Item Value Reference Range Interpretation Comments Hct (test code = Hct) 29.4 42.0-54.0 [facility]hamHmdcsapCOIYEGYNLO5992-11-59 06:53:00 Test Item Value Reference Range Interpretation Comments MPV (test code = MPV) 8.3 7.4-10.4 [facility] OADLS7042-16-54 06:53:00 Test Item Value Reference Range Interpretation Comments Phosphorus (test code = Phosphorus) 3.3 2.5-4.5 [facility] OIFIX8414-77-82 06:53:00 Test Item Value Reference Range Interpretation Comments Magnesium Lvl (test code = Magnesium 1.8 1.8-2.4 Lvl) [facility]XicyxcxNDEMKCICQGLI0186-61-11 06:53:00 Test Item Value Reference Range Interpretation Comments AGAP (test code = AGAP) 12.7 10.0-20.0 [facility] HospitalXuavfkyWLZXXLXPTDVQ3112-12-54 06:53:00 Test Item Value Reference Range Interpretation Comments Calcium Lvl (test code = Calcium Lvl) 8.2 8.5-10.5 [facility] HospitalCkmklesWNRUZLFYQEVA8578-79-77 06:53:00 Test Item Value Reference Range Interpretation Comments Sodium Lvl (test code = Sodium Lvl) 140 135-145 [facility] HospitalGwcuxpqAMIRSFTCWBAY0513-46-65 06:53:00 Test Item Value Reference Range Interpretation Comments CO2 (test code = CO2) 27 24-32 [facility] HospitalPulrpceDKSICRSKTFEO4087-08-90 06:53:00 Test Item Value Reference Range Interpretation Comments Potassium Lvl (test code = Potassium 4.7 3.5-5.1 Lvl) [facility] HospitalTmdylenZHNWOFSCXTDP6935-60-96 06:53:00 Test Item Value Reference Range Interpretation Comments Chloride Lvl (test code = Chloride Lvl) 105 95-109 [facility] HospitalOlmfkdjDIIRQVKQJOAH0458-77-18 06:53:00 Test Item Value Reference Range Interpretation Comments eGFR (test code = eGFR) 83 [facility] HospitalXfothmrOTMQOCLRAFEJ7051-63-67 06:53:00 Test Item Value Reference Range Interpretation Comments Creatinine Lvl (test code = Creatinine 0.94 0.50-1.40 Lvl) [facility] HospitalWmqnpleYZXOPLBJDPDY5498-31-91 06:53:00 Test Item Value Reference Range Interpretation Comments BUN (test code = BUN) 12 7-22 [facility] HospitalVkdylzsQKKVDNRLPKBP8599-83-32 06:53:00 Test Item Value Reference Range Interpretation Comments Glucose Lvl (test code = Glucose Lvl) 178 70-99 [facility]hamSlzpwoqNZPWHQCPRE5869-77-05 06:53:00 Test Item Value Reference Range Interpretation Comments Basophils # (test code 0.1 See_Comment [Aut omated message] The = Basophils #) system which generated this result tra nsmitted reference range : <=0.2. The reference r delaney was not used to int erpret this result as normal/abnormal . [facility]hamVzlmvtfTVGGTEDIHM1294-57-12 06:53:00 Test Item Value Reference Range Interpretation Comments Monocytes # (test code 0.2 See_Comment [Aut omated message] The = Monocytes #) system which generated this result tra nsmitted reference range : <=0.8. The reference r delaney was not used to int erpret this result as normal/abnormal . [facility]hamXqywkwzXKLHSLNALO4837-75-78 06:53:00 Test Item Value Reference Range Interpretation Comments Lymphocytes (test code = Lymphocytes) 19.0 20.0-40.0 [facility]hamVhuitjfGFNLITOJMB5136-78-55 06:53:00 Test Item Value Reference Range Interpretation Comments Monocytes (test code = Monocytes) 5.6 2.0-12.0 [facility]hamVyklccxQDPHLSQJWZ4935-00-33 06:53:00 Test Item Value Reference Range Interpretation Comments Segs (test code = Segs) 72.1 45.0-75.0 [facility]hamLnpiajyRMXBLTFLRJ4079-74-63 06:53:00 Test Item Value Reference Range Interpretation Comments Eosinophils # (test code 0.1 See_Comment [A utomated message] The = Eosinophils #) system [facility] h generated this result tra nsmitted reference range : <=0.5. The reference r delaney was not used to int erpret this result as normal/abnormal . [facility]hamAgmmnapBZLRMPCJKD1589-52-11 06:53:00 Test Item Value Reference Range Interpretation Comments Basophils (test code = 1.7 See_Comment [Aut omated message] The Basophils) system which ge nerated this result tra nsmitted reference range : <=1.0. The reference r delaney was not used to int erpret this result as normal/abnormal . [facility]hamRtvgoxuZVBSSDTSHC5679-86-17 06:53:00 Test Item Value Reference Range Interpretation Comments Eosinophils (test code = 1.6 See_Comment [A utomated message] The Eosinophils) system which ge nerated this result tra nsmitted reference range : <=4.0. The reference r delaeny was not used to int erpret this result as normal/abnormal . [facility]hamPkdhmhhDFYGRIYTJN2391-08-18 06:53:00 Test Item Value Reference Range Interpretation Comments Lymphocytes # (test code = Lymphocytes 0.8 1.0-5.5 #) [facility]hamXxlodswVDERQXIUWT9966-26-84 06:53:00 Test Item Value Reference Range Interpretation Comments Segs-Bands # (test code = Segs-Bands #) 3.0 1.5-8.1 [facility]hamWznsyupBDHAYGNLFJ3807-35-17 06:53:00 Test Item Value Reference Range Interpretation Comments MCV (test code = MCV) 87.7 80.0-94.0 [facility]hamUmglwqrVQPYUBDCIU6110-61-30 06:53:00 Test Item Value Reference Range Interpretation Comments MCH (test code = MCH) 29.2 pg 27.0-31.0 [facility]hamSjfitivATZYMEMWQP5770-88-24 06:53:00 Test Item Value Reference Range Interpretation Comments RDW (test code = RDW) 15.1 11.5-14.5 [facility]hamUdyjvrtVNBKBGLVPL2375-57-16 06:53:00 Test Item Value Reference Range Interpretation Comments Platelet (test code = Platelet) 188 133-450 [facility]hamHxgmvjnCDBKQIZGYE1984-10-56 06:53:00 Test Item Value Reference Range Interpretation Comments MCHC (test code = MCHC) 33.3 32.0-36.0 [facility]hamTzihlluSLYUBUCDKD2582-93-60 06:53:00 Test Item Value Reference Range Interpretation Comments WBC (test code = WBC) 4.2 3.7-10.4 [facility]hamAmxlwoqOCFQJVPSHU0502-44-40 06:53:00 Test Item Value Reference Range Interpretation Comments RBC (test code = RBC) 3.35 4.70-6.10 [facility]hamPjuhjatFMXUNAIGJO8606-24-19 06:53:00 Test Item Value Reference Range Interpretation Comments Hgb (test code = Hgb) 9.8 14.0-18.0 [facility]hamPjovxezFZKTRMBBPK8659-41-15 06:53:00 Test Item Value Reference Range Interpretation Comments Hct (test code = Hct) 29.4 42.0-54.0 [place] 737096-03-18 06:53:00 Test Item Value Reference Range Interpretation Comments MPV (test code = MPV) 8.3 7.4-10.4 [facility] BLCEU5451-05-10 06:53:00 Test Item Value Reference Range Interpretation Comments Phosphorus (test code = Phosphorus) 3.3 2.5-4.5 [facility]CHE[facility] UXGTY5234-89-26 06:53:00 Test Item Value Reference Range Interpretation Comments Magnesium Lvl (test code = Magnesium 1.8 1.8-2.4 Lvl) [facility]CynjbysKYSEBWBKWEYQ1784-65-89 06:53:00 Test Item Value Reference Range Interpretation Comments AGAP (test code = AGAP) 12.7 10.0-20.0 [facility] HospitalZckitbrWHYZONZKRLRZ9104-17-34 06:53:00 Test Item Value Reference Range Interpretation Comments Calcium Lvl (test code = Calcium Lvl) 8.2 8.5-10.5 [facility] HospitalAmlndrjVIVTQAVNZDKO7767-98-83 06:53:00 Test Item Value Reference Range Interpretation Comments Sodium Lvl (test code = Sodium Lvl) 140 135-145 [facility]JrjbwunOCSKXOUVUMWL3631-96-07 06:53:00 Test Item Value Reference Range Interpretation Comments CO2 (test code = CO2) 27 24-32 [facility] HospitalAxejgjkIVHDFXJSPYXH8243-05-81 06:53:00 Test Item Value Reference Range Interpretation Comments Potassium Lvl (test code = Potassium 4.7 3.5-5.1 Lvl) [facility] HospitalZlhkygkHDNUTYUKTGCC2660-49-07 06:53:00 Test Item Value Reference Range Interpretation Comments Chloride Lvl (test code = Chloride Lvl) 105 95-109 [facility] HospitalEoxnnxhDFKVKVAPNGVE0302-96-18 06:53:00 Test Item Value Reference Range Interpretation Comments eGFR (test code = eGFR) 83 [facility] HospitalYajwhivBXCEXXODJELX2828-51-85 06:53:00 Test Item Value Reference Range Interpretation Comments Creatinine Lvl (test code = Creatinine 0.94 0.50-1.40 Lvl) [facility] HospitalFgjndwdCYURYBHZUKXS6365-39-70 06:53:00 Test Item Value Reference Range Interpretation Comments BUN (test code = BUN) 12 7-22 [facility] HospitalAbeazezXOWPRUUNIRGZ1295-35-96 06:53:00 Test Item Value Reference Range Interpretation Comments Glucose Lvl (test code = Glucose Lvl) 178 70-99 [facility]hamWacafsbPQGCKWQKRV3179-18-54 06:53:00 Test Item Value Reference Range Interpretation Comments Basophils # (test code 0.1 See_Comment [Aut omated message] The = Basophils #) system which generated this result tra nsmitted reference range : <=0.2. The reference r delaney was not used to int erpret this result as normal/abnormal . [facility]hamTlrqchkVMEZJERMLL7441-74-02 06:53:00 Test Item Value Reference Range Interpretation Comments Monocytes # (test code 0.2 See_Comment [Aut omated message] The = Monocytes #) system which generated this result tra nsmitted reference range : <=0.8. The reference r delaney was not used to int erpret this result as normal/abnormal . [facility]hamZdhtngbGKRNGSPEYM3894-83-85 06:53:00 Test Item Value Reference Range Interpretation Comments Lymphocytes (test code = Lymphocytes) 19.0 20.0-40.0 [facility] IYEMK6293-48-66 06:53:00 Test Item Value Reference Range Interpretation Comments Phosphorus (test code = Phosphorus) 3.3 2.5-4.5 [facility]hamPbczxfkCCJNIYISMT6244-26-06 06:53:00 Test Item Value Reference Range Interpretation Comments Monocytes (test code = Monocytes) 5.6 2.0-12.0 [facility] UPFGZ9904-50-04 06:53:00 Test Item Value Reference Range Interpretation Comments Magnesium Lvl (test code = Magnesium 1.8 1.8-2.4 Lvl) [facility]hamMiketmiNJZITDURDS8350-44-41 06:53:00 Test Item Value Reference Range Interpretation Comments Segs (test code = Segs) 72.1 45.0-75.0 [facility]ErdwaznPSKMHQSADTDH7282-69-10 06:53:00 Test Item Value Reference Range Interpretation Comments AGAP (test code = AGAP) 12.7 10.0-20.0 [facility]hamVncgaldYSDTTHTKNA3821-68-11 06:53:00 Test Item Value Reference Range Interpretation Comments Eosinophils # (test code 0.1 See_Comment [A utomated message] The = Eosinophils #) system whic h generated this result tra nsmitted reference range : <=0.5. The reference r delaney was not used to int erpret this result as normal/abnormal . [facility]2016-03-17 22:21:00 Test Item Value Reference Range Interpretation Comments eGFR (test code = eGFR) 68 [place] 981416-03-17 22:21:00 Test Item Value Reference Range Interpretation Comments BUN (test code = BUN) 12 7-22 [place] 981416-03-17 22:21:00 Test Item Value Reference Range Interpretation Comments Sodium Lvl (test code = Sodium Lvl) 140 135-145 [place] 981416-03-17 22:21:00 Test Item Value Reference Range Interpretation Comments Creatinine Lvl (test code = Creatinine 1.11 0.50-1.40 Lvl) [place] 981416-03-17 22:21:00 Test Item Value Reference Range Interpretation Comments Calcium Lvl (test code = Calcium Lvl) 8.2 8.5-10.5 [place] 981416-03-17 22:21:00 Test Item Value Reference Range Interpretation Comments CO2 (test code = CO2) 26 24-32 [place] 981416-03-17 22:21:00 Test Item Value Reference Range Interpretation Comments Chloride Lvl (test code = Chloride Lvl) 104 95-109 [facility]2016-03-17 22:21:00 Test Item Value Reference Range Interpretation Comments Potassium Lvl (test code = Potassium 4.6 3.5-5.1 Lvl) [facility]2016-03-17 22:21:00 Test Item Value Reference Range Interpretation Comments Glucose Lvl (test code = Glucose Lvl) 224 70-99 [facility]2016-03-17 22:21:00 Test Item Value Reference Range Interpretation Comments AGAP (test code = AGAP) 14.6 10.0-20.0 [facility]hamPsnzofyEAKPTMUIXT9869-40-79 22:21:00 Test Item Value Reference Range Interpretation Comments Eosinophils # (test code 0.3 See_Comment [A utomated message] The = Eosinophils #) system whic h generated this result tra nsmitted reference range : <=0.5. The reference r delaney was not used to int erpret this result as normal/abnormal . [facility]hamSmqleepBLQEENSJQX0141-47-01 22:21:00 Test Item Value Reference Range Interpretation Comments Segs-Bands # (test code = Segs-Bands #) 2.9 1.5-8.1 [facility]hamVohbyidDMNMXBEYPQ5115-69-05 22:21:00 Test Item Value Reference Range Interpretation Comments Lymphocytes # (test code = Lymphocytes 1.4 1.0-5.5 #) [facility]hamFvrjgumYJHRSBJWXS3717-85-31 22:21:00 Test Item Value Reference Range Interpretation Comments Eosinophils (test code = 5.5 See_Comment [A utomated message] The Eosinophils) system which ge nerated this result tra nsmitted reference range : <=4.0. The reference r delaney was not used to int erpret this result as normal/abnormal . [facility]hamApdbbvdIKCFVXOZQW4616-59-17 22:21:00 Test Item Value Reference Range Interpretation Comments Lymphocytes (test code = Lymphocytes) 27.4 20.0-40.0 [facility]hamYnbrmqeXHZCCVKVLY9507-25-62 22:21:00 Test Item Value Reference Range Interpretation Comments Monocytes (test code = Monocytes) 8.3 2.0-12.0 [facility]hamOkbbdixOILRIFWAOY3043-34-04 22:21:00 Test Item Value Reference Range Interpretation Comments Segs (test code = Segs) 57.9 45.0-75.0 [facility]hamAwstyidQIUQKBIYWZ0865-18-92 22:21:00 Test Item Value Reference Range Interpretation Comments Basophils (test code = 0.9 See_Comment [Aut omated message] The Basophils) system which ge nerated this result tra nsmitted reference range : <=1.0. The reference r delaney was not used to int erpret this result as normal/abnormal . [facility]hamJkqxigfBFTSKFTFBL8527-08-10 22:21:00 Test Item Value Reference Range Interpretation Comments Monocytes # (test code 0.4 See_Comment [Aut omated message] The = Monocytes #) system which generated this result tra nsmitted reference range : <=0.8. The reference r delaney was not used to int erpret this result as normal/abnormal . [facility]hamLrlcjvnFJCTJCDVVZ4420-41-09 22:21:00 Test Item Value Reference Range Interpretation Comments INR (test code = INR) 1.11 0.85-1.17 [facility]hamAzrzfskIRCDRHUYLH8522-76-61 22:21:00 Test Item Value Reference Range Interpretation Comments PT (test code = PT) 14.6 s 12.0-14.7 [facility]hamFhcqsayEGTWDXDMTD2388-98-99 22:21:00 Test Item Value Reference Range Interpretation Comments Split Point (test code = Split Point) 2.9 min [place] 737096-03-17 22:21:00 Test Item Value Reference Range Interpretation Comments ACT (TEG) (test code = ACT (TEG)) 409 s 86-118 [facility]hamYsvsdrdSZTCQFGVUE2877-46-26 22:21:00 Test Item Value Reference Range Interpretation Comments R-time (test code = R-time) 3.8 min 0.4-0.7 [facility]hamKvodhewRHIKIUPDLH8132-45-74 22:21:00 Test Item Value Reference Range Interpretation Comments Rapid TEG Sample Type Citrated Whole Blood (test code = Rapid TEG (10/09/15 5:21 PM) Sample Type) [facility]hamUclpndbZOFSETPXDS7187-92-58 22:21:00 Test Item Value Reference Range Interpretation Comments Estimated % Lysis (test 0.4 See_Comment [Au tomated message] The code = Estimated % system wh ich generated Lysis) this result tra nsmitted reference range : <=7.5. The reference r delaney was not used to int erpret this result as normal/abnormal . [facility]hamRtvcljcEXLFDUZQOJ2332-17-44 22:21:00 Test Item Value Reference Range Interpretation Comments G-value (test code = G-value) 10.6 5.0-11.6 [facility]hamHytsjnsPOKUGNWDOL3161-36-51 22:21:00 Test Item Value Reference Range Interpretation Comments K-time (test code = K-time) 2.1 min 0.6-2.3 [facility] BrenhamYhewjohVTZEIRXIMN2857-55-44 22:21:00 Test Item Value Reference Range Interpretation Comments Max Amp (test code = Max Amp) 68 mm 52-71 [facility]hamYzdrkqvSQZVWDPOWK3004-34-68 22:21:00 Test Item Value Reference Range Interpretation Comments Angle (test code = Angle) 63 degrees 64-80 [facility]2016-03-17 22:21:00 Test Item Value Reference Range Interpretation Comments eGFR (test code = eGFR) 68 [facility]2016-03-17 22:21:00 Test Item Value Reference Range Interpretation Comments BUN (test code = BUN) 12 7-22 [facility]2016-03-17 22:21:00 Test Item Value Reference Range Interpretation Comments Sodium Lvl (test code = Sodium Lvl) 140 135-145 [facility]2016-03-17 22:21:00 Test Item Value Reference Range Interpretation Comments Creatinine Lvl (test code = Creatinine 1.11 0.50-1.40 Lvl) [facility]2016-03-17 22:21:00 Test Item Value Reference Range Interpretation Comments Calcium Lvl (test code = Calcium Lvl) 8.2 8.5-10.5 [facility]2016-03-17 22:21:00 Test Item Value Reference Range Interpretation Comments CO2 (test code = CO2) 26 24-32 [facility]2016-03-17 22:21:00 Test Item Value Reference Range Interpretation Comments Chloride Lvl (test code = Chloride Lvl) 104 95-109 [facility]2016-03-17 22:21:00 Test Item Value Reference Range Interpretation Comments Potassium Lvl (test code = Potassium 4.6 3.5-5.1 Lvl) [facility]2016-03-17 22:21:00 Test Item Value Reference Range Interpretation Comments Glucose Lvl (test code = Glucose Lvl) 224 70-99 [facility]2016-03-17 22:21:00 Test Item Value Reference Range Interpretation Comments AGAP (test code = AGAP) 14.6 10.0-20.0 [facility]hamNzgccfrSSKQULVMPJ8297-10-52 22:21:00 Test Item Value Reference Range Interpretation Comments Eosinophils # (test code 0.3 See_Comment [A utomated message] The = Eosinophils #) system whic h generated this result tra nsmitted reference range : <=0.5. The reference r delaney was not used to int erpret this result as normal/abnormal . [facility]hamNywutncLQPSTQOLLK2056-28-02 22:21:00 Test Item Value Reference Range Interpretation Comments Segs-Bands # (test code = Segs-Bands #) 2.9 1.5-8.1 [facility]hamWmtbwurCCLUECMUUZ2155-68-05 22:21:00 Test Item Value Reference Range Interpretation Comments Lymphocytes # (test code = Lymphocytes 1.4 1.0-5.5 #) [facility] BrenhamZfjwtmfUGHEZBIWZA1853-66-78 22:21:00 Test Item Value Reference Range Interpretation Comments Eosinophils (test code = 5.5 See_Comment [A utomated message] The Eosinophils) system which ge nerated this result tra nsmitted reference range : <=4.0. The reference r delaney was not used to int erpret this result as normal/abnormal . [facility]hamBpqwmhrIGSGSFIIYN4335-15-38 22:21:00 Test Item Value Reference Range Interpretation Comments Lymphocytes (test code = Lymphocytes) 27.4 20.0-40.0 [facility]hamBrkqdjtNLEBLWSNJB0150-63-96 22:21:00 Test Item Value Reference Range Interpretation Comments Monocytes (test code = Monocytes) 8.3 2.0-12.0 [facility]hamDsbopcqNIMYXAFEDO0892-93-54 22:21:00 Test Item Value Reference Range Interpretation Comments Segs (test code = Segs) 57.9 45.0-75.0 [facility]hamBuaqpmcFYKPHFJGFL0026-45-17 22:21:00 Test Item Value Reference Range Interpretation Comments Basophils (test code = 0.9 See_Comment [Aut omated message] The Basophils) system which ge nerated this result tra nsmitted reference range : <=1.0. The reference r delaney was not used to int erpret this result as normal/abnormal . [facility]hamNgvrhadXLGDEWNYRS7011-24-09 22:21:00 Test Item Value Reference Range Interpretation Comments Monocytes # (test code 0.4 See_Comment [Aut omated message] The = Monocytes #) system which generated this result tra nsmitted reference range : <=0.8. The reference r delaney was not used to int erpret this result as normal/abnormal . [facility]hamCewqkguGNYPUYOJCO5285-15-15 22:21:00 Test Item Value Reference Range Interpretation Comments INR (test code = INR) 1.11 0.85-1.17 [facility]hamHurgipqDNRDRIKTAV2497-88-49 22:21:00 Test Item Value Reference Range Interpretation Comments PT (test code = PT) 14.6 s 12.0-14.7 [facility]hamSzdnwgwBHKVDGAFUF8612-30-61 22:21:00 Test Item Value Reference Range Interpretation Comments Split Point (test code = Split Point) 2.9 min [facility]hamJlzfrupIFASTUKIVB5850-50-35 22:21:00 Test Item Value Reference Range Interpretation Comments ACT (TEG) (test code = ACT (TEG)) 409 s 86-118 [facility] BrenhamRrxctxxYYGWHGROLO6117-44-14 22:21:00 Test Item Value Reference Range Interpretation Comments R-time (test code = R-time) 3.8 min 0.4-0.7 [facility] BrenhamYncgileFJXASZWDOY8399-82-18 22:21:00 Test Item Value Reference Range Interpretation Comments Rapid TEG Sample Type Citrated Whole Blood (test code = Rapid TEG (10/09/15 5:21 PM) Sample Type) [place] 737096-03-17 22:21:00 Test Item Value Reference Range Interpretation Comments Estimated % Lysis (test 0.4 See_Comment [Au tomated message] The code = Estimated % system wh ich generated Lysis) this result tra nsmitted reference range : <=7.5. The reference r delaney was not used to int erpret this result as normal/abnormal . [place] 737096-03-17 22:21:00 Test Item Value Reference Range Interpretation Comments G-value (test code = G-value) 10.6 5.0-11.6 [place] 737096-03-17 22:21:00 Test Item Value Reference Range Interpretation Comments K-time (test code = K-time) 2.1 min 0.6-2.3 [facility]hamDocutsqGEUTPWMWBX1298-29-06 22:21:00 Test Item Value Reference Range Interpretation Comments Max Amp (test code = Max Amp) 68 mm 52-71 [facility] BrenhamIggsuecXGMSTHODAU1164-57-48 22:21:00 Test Item Value Reference Range Interpretation Comments Angle (test code = Angle) 63 degrees 64-80 [facility]2016-03-17 22:21:00 Test Item Value Reference Range Interpretation Comments eGFR (test code = eGFR) 68 [facility]2016-03-17 22:21:00 Test Item Value Reference Range Interpretation Comments BUN (test code = BUN) 12 7-22 [facility]2016-03-17 22:21:00 Test Item Value Reference Range Interpretation Comments Sodium Lvl (test code = Sodium Lvl) 140 135-145 [facility]2016-03-17 22:21:00 Test Item Value Reference Range Interpretation Comments Creatinine Lvl (test code = Creatinine 1.11 0.50-1.40 Lvl) [facility]2016-03-17 22:21:00 Test Item Value Reference Range Interpretation Comments Calcium Lvl (test code = Calcium Lvl) 8.2 8.5-10.5 [facility]2016-03-17 22:21:00 Test Item Value Reference Range Interpretation Comments CO2 (test code = CO2) 26 24-32 [facility]2016-03-17 22:21:00 Test Item Value Reference Range Interpretation Comments Chloride Lvl (test code = Chloride Lvl) 104 95-109 [place] 981416-03-17 22:21:00 Test Item Value Reference Range Interpretation Comments Potassium Lvl (test code = Potassium 4.6 3.5-5.1 Lvl) [facility]2016-03-17 22:21:00 Test Item Value Reference Range Interpretation Comments Glucose Lvl (test code = Glucose Lvl) 224 70-99 [facility]2016-03-17 22:21:00 Test Item Value Reference Range Interpretation Comments AGAP (test code = AGAP) 14.6 10.0-20.0 [facility]hamCnpujtdSXJWQVQPMU5514-75-85 22:21:00 Test Item Value Reference Range Interpretation Comments Eosinophils # (test code 0.3 See_Comment [A utomated message] The = Eosinophils #) system whic h generated this result tra nsmitted reference range : <=0.5. The reference r delaney was not used to int erpret this result as normal/abnormal . [facility] BrenhamIufnryxXICRGZSAOO3624-65-68 22:21:00 Test Item Value Reference Range Interpretation Comments Segs-Bands # (test code = Segs-Bands #) 2.9 1.5-8.1 [facility] BrenhamYzeoadoIRBUQQTOAF8958-38-67 22:21:00 Test Item Value Reference Range Interpretation Comments Lymphocytes # (test code = Lymphocytes 1.4 1.0-5.5 #) [facility] BrenhamVdkbgsaPMOCDTJDCS9420-82-16 22:21:00 Test Item Value Reference Range Interpretation Comments Eosinophils (test code = 5.5 See_Comment [A utomated message] The Eosinophils) system which ge nerated this result tra nsmitted reference range : <=4.0. The reference r delaney was not used to int erpret this result as normal/abnormal . [facility]hamShlrqgaWXTIQXCVHS1462-47-06 22:21:00 Test Item Value Reference Range Interpretation Comments Lymphocytes (test code = Lymphocytes) 27.4 20.0-40.0 [facility] BrenhamWbcwqxuTLRUHXRVUN4776-34-87 22:21:00 Test Item Value Reference Range Interpretation Comments Monocytes (test code = Monocytes) 8.3 2.0-12.0 [facility] BrenhamHqnovnbYVRAPFEKSI0777-89-15 22:21:00 Test Item Value Reference Range Interpretation Comments Segs (test code = Segs) 57.9 45.0-75.0 [facility]2016-03-17 22:21:00 Test Item Value Reference Range Interpretation Comments eGFR (test code = eGFR) 68 [facility]2016-03-17 22:21:00 Test Item Value Reference Range Interpretation Comments BUN (test code = BUN) 12 7-22 [facility]hamUeelgvtWIWJBLSRXU1846-88-73 22:21:00 Test Item Value Reference Range Interpretation Comments Basophils (test code = 0.9 See_Comment [Aut omated message] The Basophils) system which ge nerated this result tra nsmitted reference range : <=1.0. The reference r delaney was not used to int erpret this result as normal/abnormal . [facility]2016-03-17 22:21:00 Test Item Value Reference Range Interpretation Comments Sodium Lvl (test code = Sodium Lvl) 140 135-145 [facility] BrenhamSkxhmbcMKXXJCKIPL7210-67-90 22:21:00 Test Item Value Reference Range Interpretation Comments Monocytes # (test code 0.4 See_Comment [Aut omated message] The = Monocytes #) system which generated this result tra nsmitted reference range : <=0.8. The reference r delaney was not used to int erpret this result as normal/abnormal . [facility]2016-03-17 22:21:00 Test Item Value Reference Range Interpretation Comments Creatinine Lvl (test code = Creatinine 1.11 0.50-1.40 Lvl) [facility]hamRjdaneoEVYHESPZIC9689-11-30 22:21:00 Test Item Value Reference Range Interpretation Comments INR (test code = INR) 1.11 0.85-1.17 [facility]2016-03-17 22:21:00 Test Item Value Reference Range Interpretation Comments Calcium Lvl (test code = Calcium Lvl) 8.2 8.5-10.5 [facility]hamDdvfdlpFCPBNLNLHS5835-54-68 22:21:00 Test Item Value Reference Range Interpretation Comments PT (test code = PT) 14.6 s 12.0-14.7 [facility]2016-03-17 22:21:00 Test Item Value Reference Range Interpretation Comments CO2 (test code = CO2) 26 24-32 [facility]hamCllwqajOYTRKXVYLS2938-58-20 22:21:00 Test Item Value Reference Range Interpretation Comments Split Point (test code = Split Point) 2.9 min [facility]2016-03-17 22:21:00 Test Item Value Reference Range Interpretation Comments Chloride Lvl (test code = Chloride Lvl) 104 95-109 [facility]hamEkqxzaaHZTRBOFYEU5861-81-30 22:21:00 Test Item Value Reference Range Interpretation Comments ACT (TEG) (test code = ACT (TEG)) 409 s 86-118 [facility]2016-03-17 22:21:00 Test Item Value Reference Range Interpretation Comments Potassium Lvl (test code = Potassium 4.6 3.5-5.1 Lvl) [facility]hamOqexkmdZOPTEFDHCH7223-89-57 22:21:00 Test Item Value Reference Range Interpretation Comments R-time (test code = R-time) 3.8 min 0.4-0.7 [facility]2016-03-17 22:21:00 Test Item Value Reference Range Interpretation Comments Glucose Lvl (test code = Glucose Lvl) 224 70-99 [facility]hamJkmlevyXNQFDCTPZU7122-80-11 22:21:00 Test Item Value Reference Range Interpretation Comments Rapid TEG Sample Type Citrated Whole Blood (test code = Rapid TEG (10/09/15 5:21 PM) Sample Type) [facility]2016-03-17 22:21:00 Test Item Value Reference Range Interpretation Comments AGAP (test code = AGAP) 14.6 10.0-20.0 [facility]hamHuacnzsVMHYETUOYZ3483-96-89 22:21:00 Test Item Value Reference Range Interpretation Comments Estimated % Lysis (test 0.4 See_Comment [Au tomated message] The code = Estimated % system wh ich generated Lysis) this result tra nsmitted reference range : <=7.5. The reference r delaney was not used to int erpret this result as normal/abnormal . [facility]hamDjiqlvgTAWLSLIXRV4915-04-34 22:21:00 Test Item Value Reference Range Interpretation Comments Eosinophils # (test code 0.3 See_Comment [A utomated message] The = Eosinophils #) system whic h generated this result tra nsmitted reference range : <=0.5. The reference r delaney was not used to int erpret this result as normal/abnormal . [facility]hamXgzwnhqCBYNOQNPMZ3460-86-90 22:21:00 Test Item Value Reference Range Interpretation Comments G-value (test code = G-value) 10.6 5.0-11.6 [facility]hamOinzopuANUHEIZUDC4068-37-20 22:21:00 Test Item Value Reference Range Interpretation Comments Segs-Bands # (test code = Segs-Bands #) 2.9 1.5-8.1 [facility]hamXxicjhjDPOXDXYRGF2174-45-87 22:21:00 Test Item Value Reference Range Interpretation Comments K-time (test code = K-time) 2.1 min 0.6-2.3 [facility]hamHmehnhkUHOYOJIWDN0906-85-99 22:21:00 Test Item Value Reference Range Interpretation Comments Lymphocytes # (test code = Lymphocytes 1.4 1.0-5.5 #) [facility]hamJwkobsxAQFVDCNMLB9113-00-92 22:21:00 Test Item Value Reference Range Interpretation Comments Max Amp (test code = Max Amp) 68 mm 52-71 [facility]hamEkaibnhKWVJYRCOCN8342-91-48 22:21:00 Test Item Value Reference Range Interpretation Comments Angle (test code = Angle) 63 degrees 64-80 [facility]hamXmcwdsuOGKHJZCKTS3661-34-82 22:21:00 Test Item Value Reference Range Interpretation Comments Eosinophils (test code = 5.5 See_Comment [A utomated message] The Eosinophils) system which ge nerated this result tra nsmitted reference range : <=4.0. The reference r delaney was not used to int erpret this result as normal/abnormal . [facility]hamXgmvlkzPBOSAVLVPB2230-27-36 22:21:00 Test Item Value Reference Range Interpretation Comments Lymphocytes (test code = Lymphocytes) 27.4 20.0-40.0 [facility]hamPkqmafjXDZYBPFTJL3978-66-63 22:21:00 Test Item Value Reference Range Interpretation Comments Monocytes (test code = Monocytes) 8.3 2.0-12.0 [facility]hamSvgocydPHQAYTIPLM7505-48-61 22:21:00 Test Item Value Reference Range Interpretation Comments Segs (test code = Segs) 57.9 45.0-75.0 [facility]hamTxkbvxkTCYZPUGZBO7738-88-37 22:21:00 Test Item Value Reference Range Interpretation Comments Basophils (test code = 0.9 See_Comment [Aut omated message] The Basophils) system which ge nerated this result tra nsmitted reference range : <=1.0. The reference r delaney was not used to int erpret this result as normal/abnormal . [facility]hamRughityYAFMXNVHGU5944-46-43 22:21:00 Test Item Value Reference Range Interpretation Comments Monocytes # (test code 0.4 See_Comment [Aut omated message] The = Monocytes #) system which generated this result tra nsmitted reference range : <=0.8. The reference r delaney was not used to int erpret this result as normal/abnormal . [facility]hamXwahvakXJRRWTUSQO1680-49-08 22:21:00 Test Item Value Reference Range Interpretation Comments INR (test code = INR) 1.11 0.85-1.17 [facility]hamXoyilyuIEVNYKWYKR8277-49-96 22:21:00 Test Item Value Reference Range Interpretation Comments PT (test code = PT) 14.6 s 12.0-14.7 [facility]hamQecrchrSGDMRYTYKX3975-17-46 22:21:00 Test Item Value Reference Range Interpretation Comments Split Point (test code = Split Point) 2.9 min [facility]hamGohvhawGDRZRZLKKA6679-71-28 22:21:00 Test Item Value Reference Range Interpretation Comments ACT (TEG) (test code = ACT (TEG)) 409 s 86-118 [facility]hamXiklyhuVSJVXWUTRP3559-98-79 22:21:00 Test Item Value Reference Range Interpretation Comments R-time (test code = R-time) 3.8 min 0.4-0.7 [facility]hamPccpnydZCKUUEMRIO7081-99-89 22:21:00 Test Item Value Reference Range Interpretation Comments Rapid TEG Sample Type Citrated Whole Blood (test code = Rapid TEG (10/09/15 5:21 PM) Sample Type) [facility] BrenhamNthpvknBNJRBFLNIR7709-49-93 22:21:00 Test Item Value Reference Range Interpretation Comments Estimated % Lysis (test 0.4 See_Comment [Au tomated message] The code = Estimated % system wh ich generated Lysis) this result tra nsmitted reference range : <=7.5. The reference r delaney was not used to int erpret this result as normal/abnormal . [facility] BrenhamLsvrrtnUZMUVYKBMT2377-21-34 22:21:00 Test Item Value Reference Range Interpretation Comments G-value (test code = G-value) 10.6 5.0-11.6 [place] 737096-03-17 22:21:00 Test Item Value Reference Range Interpretation Comments K-time (test code = K-time) 2.1 min 0.6-2.3 [facility]hamEcclrmgKTKGKAHNZG5714-24-26 22:21:00 Test Item Value Reference Range Interpretation Comments Max Amp (test code = Max Amp) 68 mm 52-71 [place] 737096-03-17 22:21:00 Test Item Value Reference Range Interpretation Comments Angle (test code = Angle) 63 degrees 64-80 [facility]2016-03-17 22:21:00 Test Item Value Reference Range Interpretation Comments eGFR (test code = eGFR) 68 [facility]2016-03-17 22:21:00 Test Item Value Reference Range Interpretation Comments BUN (test code = BUN) 12 7- [facility]2016-03-17 22:21:00 Test Item Value Reference Range Interpretation Comments Sodium Lvl (test code = Sodium Lvl) 140 135-145 [facility]2016-03-17 22:21:00 Test Item Value Reference Range Interpretation Comments Creatinine Lvl (test code = Creatinine 1.11 0.50-1.40 Lvl) [facility]2016-03-17 22:21:00 Test Item Value Reference Range Interpretation Comments Calcium Lvl (test code = Calcium Lvl) 8.2 8.5-10.5 [facility]2016-03-17 22:21:00 Test Item Value Reference Range Interpretation Comments CO2 (test code = CO2) 26 24-32 [place] 981416-03-17 22:21:00 Test Item Value Reference Range Interpretation Comments Chloride Lvl (test code = Chloride Lvl) 104 95-109 [facility]2016-03-17 22:21:00 Test Item Value Reference Range Interpretation Comments Potassium Lvl (test code = Potassium 4.6 3.5-5.1 Lvl) [facility]2016-03-17 22:21:00 Test Item Value Reference Range Interpretation Comments Glucose Lvl (test code = Glucose Lvl) 224 70-99 [facility]2016-03-17 22:21:00 Test Item Value Reference Range Interpretation Comments AGAP (test code = AGAP) 14.6 10.0-20.0 [facility]hamDavjdtpAKIEXWEIIW9533-49-85 22:21:00 Test Item Value Reference Range Interpretation Comments Eosinophils # (test code 0.3 See_Comment [A utomated message] The = Eosinophils #) system whic h generated this result tra nsmitted reference range : <=0.5. The reference r delaney was not used to int erpret this result as normal/abnormal . [facility] BrenhamDbwanpaJTZECMJKMP2752-90-99 22:21:00 Test Item Value Reference Range Interpretation Comments Segs-Bands # (test code = Segs-Bands #) 2.9 1.5-8.1 [facility]hamFekbxrkGTPVWRQMMS6882-45-23 22:21:00 Test Item Value Reference Range Interpretation Comments Lymphocytes # (test code = Lymphocytes 1.4 1.0-5.5 #) [facility]hamEeabudvVPVBSVJYWM9099-32-17 22:21:00 Test Item Value Reference Range Interpretation Comments Eosinophils (test code = 5.5 See_Comment [A utomated message] The Eosinophils) system which ge nerated this result tra nsmitted reference range : <=4.0. The reference r delaney was not used to int erpret this result as normal/abnormal . [facility] BrenhamYewxinbMMQHZPWLCQ5216-23-33 22:21:00 Test Item Value Reference Range Interpretation Comments Lymphocytes (test code = Lymphocytes) 27.4 20.0-40.0 [facility]hamOirxmuxTUTVKJAPDW2022-60-48 22:21:00 Test Item Value Reference Range Interpretation Comments Monocytes (test code = Monocytes) 8.3 2.0-12.0 [facility] BrenhamIiymrnyJFNCGTOTBC9024-85-61 22:21:00 Test Item Value Reference Range Interpretation Comments Segs (test code = Segs) 57.9 45.0-75.0 [facility]hamMhjqmklYHRTCTQAKB1107-10-40 22:21:00 Test Item Value Reference Range Interpretation Comments Basophils (test code = 0.9 See_Comment [Aut omated message] The Basophils) system which ge nerated this result tra nsmitted reference range : <=1.0. The reference r delaney was not used to int erpret this result as normal/abnormal . [facility] BrenhamVtxcyglLRNRSTNVIG8305-06-65 22:21:00 Test Item Value Reference Range Interpretation Comments Monocytes # (test code 0.4 See_Comment [Aut omated message] The = Monocytes #) system which generated this result tra nsmitted reference range : <=0.8. The reference r delaney was not used to int erpret this result as normal/abnormal . [facility] BrenhamQhdxuilHIYPTHIPUO2427-61-04 22:21:00 Test Item Value Reference Range Interpretation Comments INR (test code = INR) 1.11 0.85-1.17 [facility]hamTrgtxaiKTYGHDSZAZ8022-10-68 22:21:00 Test Item Value Reference Range Interpretation Comments PT (test code = PT) 14.6 s 12.0-14.7 [facility]hamMxlywqbAPKLKAAQGA6408-58-95 22:21:00 Test Item Value Reference Range Interpretation Comments Split Point (test code = Split Point) 2.9 min [facility] BrenhamMboauefFEKQIMEOIL6059-87-28 22:21:00 Test Item Value Reference Range Interpretation Comments ACT (TEG) (test code = ACT (TEG)) 409 s 86-118 [facility]hamXcrcncvCKLTHLWWJC9828-53-27 22:21:00 Test Item Value Reference Range Interpretation Comments R-time (test code = R-time) 3.8 min 0.4-0.7 [facility] BrenhamDydrguvRZYJOAPZEL3334-14-85 22:21:00 Test Item Value Reference Range Interpretation Comments Rapid TEG Sample Type Citrated Whole Blood (test code = Rapid TEG (10/09/15 5:21 PM) Sample Type) [facility] BrenhamFofilnmPZLHKVXPUW1255-15-00 22:21:00 Test Item Value Reference Range Interpretation Comments Estimated % Lysis (test 0.4 See_Comment [Au tomated message] The code = Estimated % system wh ich generated Lysis) this result tra nsmitted reference range : <=7.5. The reference r delaney was not used to int erpret this result as normal/abnormal . [facility] BrenhamGqvcteuEUSLZTYKEC3266-62-66 22:21:00 Test Item Value Reference Range Interpretation Comments G-value (test code = G-value) 10.6 5.0-11.6 [facility]hamOcyvdknSAAUBXLLCQ7348-29-06 22:21:00 Test Item Value Reference Range Interpretation Comments K-time (test code = K-time) 2.1 min 0.6-2.3 [facility]hamWgkirsbYCWRRUUNSB1589-17-81 22:21:00 Test Item Value Reference Range Interpretation Comments Max Amp (test code = Max Amp) 68 mm 52-71 [facility] BrenhamCsqfrktFEJFYWWVHB5733-21-39 22:21:00 Test Item Value Reference Range Interpretation Comments Angle (test code = Angle) 63 degrees 64-80 [facility]2016-03-17 22:21:00 Test Item Value Reference Range Interpretation Comments eGFR (test code = eGFR) 68 [facility]2016-03-17 22:21:00 Test Item Value Reference Range Interpretation Comments BUN (test code = BUN) 12 7-22 [facility]2016-03-17 22:21:00 Test Item Value Reference Range Interpretation Comments Sodium Lvl (test code = Sodium Lvl) 140 135-145 [facility]2016-03-17 22:21:00 Test Item Value Reference Range Interpretation Comments Creatinine Lvl (test code = Creatinine 1.11 0.50-1.40 Lvl) [facility]2016-03-17 22:21:00 Test Item Value Reference Range Interpretation Comments Calcium Lvl (test code = Calcium Lvl) 8.2 8.5-10.5 [facility]2016-03-17 22:21:00 Test Item Value Reference Range Interpretation Comments CO2 (test code = CO2) 26 24-32 [facility]2016-03-17 22:21:00 Test Item Value Reference Range Interpretation Comments Chloride Lvl (test code = Chloride Lvl) 104 95-109 [facility]2016-03-17 22:21:00 Test Item Value Reference Range Interpretation Comments Potassium Lvl (test code = Potassium 4.6 3.5-5.1 Lvl) [facility]2016-03-17 22:21:00 Test Item Value Reference Range Interpretation Comments Glucose Lvl (test code = Glucose Lvl) 224 70-99 [facility]2016-03-17 22:21:00 Test Item Value Reference Range Interpretation Comments AGAP (test code = AGAP) 14.6 10.0-20.0 [facility]hamIpppgoiXQZMZSYMRE6196-46-22 22:21:00 Test Item Value Reference Range Interpretation Comments Eosinophils # (test code 0.3 See_Comment [A utomated message] The = Eosinophils #) system ic h generated this result tra nsmitted reference range : <=0.5. The reference r delaney was not used to int erpret this result as normal/abnormal . [facility] BrenhamInqvzyeVQIFUMMOJY4005-03-23 22:21:00 Test Item Value Reference Range Interpretation Comments Segs-Bands # (test code = Segs-Bands #) 2.9 1.5-8.1 [facility] BrenhamLdbullgICRPPWZRWX5664-93-92 22:21:00 Test Item Value Reference Range Interpretation Comments Lymphocytes # (test code = Lymphocytes 1.4 1.0-5.5 #) [facility]hamFkvasurETXFLQBORQ6704-53-83 22:21:00 Test Item Value Reference Range Interpretation Comments Eosinophils (test code = 5.5 See_Comment [A utomated message] The Eosinophils) system which ge nerated this result tra nsmitted reference range : <=4.0. The reference r delaney was not used to int erpret this result as normal/abnormal . [facility] BrenhamKgaghahBRDKNWNEQU2299-42-18 22:21:00 Test Item Value Reference Range Interpretation Comments Lymphocytes (test code = Lymphocytes) 27.4 20.0-40.0 [facility] BrenhamKwxamymLVKCJOYKAX3008-88-23 22:21:00 Test Item Value Reference Range Interpretation Comments Monocytes (test code = Monocytes) 8.3 2.0-12.0 [place] 737096-03-17 22:21:00 Test Item Value Reference Range Interpretation Comments Segs (test code = Segs) 57.9 45.0-75.0 [facility]hamEotfozeUSCKRQXHVJ5892-51-57 22:21:00 Test Item Value Reference Range Interpretation Comments Basophils (test code = 0.9 See_Comment [Aut omated message] The Basophils) system which ge nerated this result tra nsmitted reference range : <=1.0. The reference r delaney was not used to int erpret this result as normal/abnormal . [place] 737096-03-17 22:21:00 Test Item Value Reference Range Interpretation Comments Monocytes # (test code 0.4 See_Comment [Aut omated message] The = Monocytes #) system which generated this result tra nsmitted reference range : <=0.8. The reference r delaney was not used to int erpret this result as normal/abnormal . [facility] BrenhamZbswibzZVIFJKWGVE4779-01-83 22:21:00 Test Item Value Reference Range Interpretation Comments INR (test code = INR) 1.11 0.85-1.17 [facility]hamJhxyvthKWXGPQLINZ2235-88-50 22:21:00 Test Item Value Reference Range Interpretation Comments PT (test code = PT) 14.6 s 12.0-14.7 [facility]hamJpuefeqYLUHERVBBB3158-04-21 22:21:00 Test Item Value Reference Range Interpretation Comments Split Point (test code = Split Point) 2.9 min [facility] BrenhamAydqyukKVQICXKSWR3246-27-96 22:21:00 Test Item Value Reference Range Interpretation Comments ACT (TEG) (test code = ACT (TEG)) 409 s 86-118 [facility] BrenhamVmzxetwWELDZMJPPM1751-37-81 22:21:00 Test Item Value Reference Range Interpretation Comments R-time (test code = R-time) 3.8 min 0.4-0.7 [facility] BrenhamXvoixrvFASTMKIECI2111-10-35 22:21:00 Test Item Value Reference Range Interpretation Comments Rapid TEG Sample Type Citrated Whole Blood (test code = Rapid TEG (10/09/15 5:21 PM) Sample Type) [facility]hamEbvlvfoFIPJQNBIGR3945-82-57 22:21:00 Test Item Value Reference Range Interpretation Comments Estimated % Lysis (test 0.4 See_Comment [Au tomated message] The code = Estimated % system wh ich generated Lysis) this result tra nsmitted reference range : <=7.5. The reference r delaney was not used to int erpret this result as normal/abnormal . [facility] BrenhamZcufnjeSBMHNIEOLL0138-61-86 22:21:00 Test Item Value Reference Range Interpretation Comments G-value (test code = G-value) 10.6 5.0-11.6 [facility] BrenhamNezmajkVSMDELANZS0304-20-18 22:21:00 Test Item Value Reference Range Interpretation Comments K-time (test code = K-time) 2.1 min 0.6-2.3 [facility]hamPreeyttIYFCOGBZDV1321-89-51 22:21:00 Test Item Value Reference Range Interpretation Comments Max Amp (test code = Max Amp) 68 mm 52-71 [facility]hamQguhssbVOHVLMSRSD7556-81-79 22:21:00 Test Item Value Reference Range Interpretation Comments Angle (test code = Angle) 63 degrees 64-80 [facility]zfsxnbGRUVIEUFZQ2815[facility]-25 14:26:00 Test Item Value Reference Range Interpretation Comments [place]-Hep C Ab (test Negative *NA*(10/09/15 code = [place]-Hep C 9:26 AM) Ab) [facility] HospitalNezdneqZAYCUGQJZC8604-00-84 14:26:00 Test Item Value Reference Range Interpretation Comments [place]-Hep C Ab (test Negative *NA*(10/09/15 code = [place]-Hep C 9:26 AM) Ab) [facility] HospitalEktbfuvEHXJXCIUZQ9860-62-70 14:26:00 Test Item Value Reference Range Interpretation Comments [place]-Hep C Ab (test Negative *NA*(10/09/15 code = [place]-Hep C 9:26 AM) Ab) [facility] HospitalReheyeqWIRAJMWMTD4106-22-95 14:26:00 Test Item Value Reference Range Interpretation Comments [place]-Hep C Ab (test Negative *NA*(10/09/15 code = [place]-Hep C 9:26 AM) Ab) [facility] HospitalNucfxnjRTTJJCQJIU7611-07-14 14:26:00 Test Item Value Reference Range Interpretation Comments [place]-Hep C Ab (test Negative *NA*(10/09/15 code = [place]-Hep C 9:26 AM) Ab) [facility] HospitalEnlixgzRPYFMFUSXC7825-91-13 14:26:00 Test Item Value Reference Range Interpretation Comments [place]-Hep C Ab (test Negative *NA*(10/09/15 code = [place]-Hep C 9:26 AM) Ab) [facility]2016-03-17 07:13:00 Test Item Value Reference Range Interpretation Comments Lactic Acid Lvl (test code = Lactic 1.4 0.5-2.2 Acid Lvl) [facility]2016-03-17 07:13:00 Test Item Value Reference Range Interpretation Comments Lactic Acid Lvl (test code = Lactic 1.4 0.5-2.2 Acid Lvl) [facility]2016-03-17 07:13:00 Test Item Value Reference Range Interpretation Comments Lactic Acid Lvl (test code = Lactic 1.4 0.5-2.2 Acid Lvl) [facility]2016-03-17 07:13:00 Test Item Value Reference Range Interpretation Comments Lactic Acid Lvl (test code = Lactic 1.4 0.5-2.2 Acid Lvl) [place] 981416-03-17 07:13:00 Test Item Value Reference Range Interpretation Comments Lactic Acid Lvl (test code = Lactic 1.4 0.5-2.2 Acid Lvl) [place] 981416-03-17 07:13:00 Test Item Value Reference Range Interpretation Comments Lactic Acid Lvl (test code = Lactic 1.4 0.5-2.2 Acid Lvl) [place] [address]-03-17 07:08:00 Test Item Value Reference Range Interpretation Comments Estimated % Lysis (test 0.0 See_Comment [Au tomated message] The code = Estimated % system wh ich generated Lysis) this result tra nsmitted reference range : <=7.5. The reference r delaney was not used to int erpret this result as normal/abnormal . [place] 737096-03-17 07:08:00 Test Item Value Reference Range Interpretation Comments G-value (test code = G-value) 9.0 5.0-11.6 [place] 737096-03-17 07:08:00 Test Item Value Reference Range Interpretation Comments K-time (test code = K-time) 1.6 min 0.6-2.3 [facility] BrenhamLxlfhpxTDUECEWDVL8877-92-11 07:08:00 Test Item Value Reference Range Interpretation Comments R-time (test code = R-time) 1.2 min 0.4-0.7 [place] [address]-03-17 07:08:00 Test Item Value Reference Range Interpretation Comments Split Point (test code = Split Point) 0.8 min [place] [address]-03-17 07:08:00 Test Item Value Reference Range Interpretation Comments Max Amp (test code = Max Amp) 64 mm 52-71 [place] 737096-03-17 07:08:00 Test Item Value Reference Range Interpretation Comments Angle (test code = Angle) 68 degrees 64-80 [facility]hamPncencnKJDUQKEPEQ5524-50-47 07:08:00 Test Item Value Reference Range Interpretation Comments ACT (TEG) (test code = ACT (TEG)) 167 s 86-118 [facility] BrenhamXefuldbZNZRUOOVDW5042-02-83 07:08:00 Test Item Value Reference Range Interpretation Comments Rapid TEG Sample Type Citrated Whole Blood (test code = Rapid TEG (10/09/15 2:08 AM) Sample Type) [facility] BrenhamJctckvsCJHRKWAKSN9645-76-98 07:08:00 Test Item Value Reference Range Interpretation Comments Estimated % Lysis (test 0.0 See_Comment [Au tomated message] The code = Estimated % system wh ich generated Lysis) this result tra nsmitted reference range : <=7.5. The reference r delaney was not used to int erpret this result as normal/abnormal . [place] [id number] 07:08:00 Test Item Value Reference Range Interpretation Comments G-value (test code = G-value) 9.0 5.0-11.6 [place] [id number] 07:08:00 Test Item Value Reference Range Interpretation Comments K-time (test code = K-time) 1.6 min 0.6-2.3 [id number] 07:08:00 Test Item Value Reference Range Interpretation Comments R-time (test code = R-time) 1.2 min 0.4-0.7 [place] 737096-03-17 07:08:00 Test Item Value Reference Range Interpretation Comments Split Point (test code = Split Point) 0.8 min [place] 737096-03-17 07:08:00 Test Item Value Reference Range Interpretation Comments Max Amp (test code = Max Amp) 64 mm 52-71 [id number] 07:08:00 Test Item Value Reference Range Interpretation Comments Angle (test code = Angle) 68 degrees 64-80 [facility]hamCzealdiMVEHXCEKTW7875-26-25 07:08:00 Test Item Value Reference Range Interpretation Comments ACT (TEG) (test code = ACT (TEG)) 167 s 86-118 [place] 737096-03-17 07:08:00 Test Item Value Reference Range Interpretation Comments Rapid TEG Sample Type Citrated Whole Blood (test code = Rapid TEG (10/09/15 2:08 AM) Sample Type) [id number] 07:08:00 Test Item Value Reference Range Interpretation Comments Estimated % Lysis (test 0.0 See_Comment [Au tomated message] The code = Estimated % system wh ich generated Lysis) this result tra nsmitted reference range : <=7.5. The reference r delaney was not used to int erpret this result as normal/abnormal . [facility] [id number] 07:08:00 Test Item Value Reference Range Interpretation Comments G-value (test code = G-value) 9.0 5.0-11.6 [id number] 07:08:00 Test Item Value Reference Range Interpretation Comments K-time (test code = K-time) 1.6 min 0.6-2.3 [id number] 07:08:00 Test Item Value Reference Range Interpretation Comments R-time (test code = R-time) 1.2 min 0.4-0.7 [facility] BrenhamDintoxtYVTNWSCDYB1379-46-14 07:08:00 Test Item Value Reference Range Interpretation Comments Split Point (test code = Split Point) 0.8 min [facility]hamUlmlxhlQVBFZAOSEI2647-91-00 07:08:00 Test Item Value Reference Range Interpretation Comments Max Amp (test code = Max Amp) 64 mm 52-71 [facility] Brenh[id number] 07:08:00 Test Item Value Reference Range Interpretation Comments Angle (test code = Angle) 68 degrees 64-80 [id number] 07:08:00 Test Item Value Reference Range Interpretation Comments ACT (TEG) (test code = ACT (TEG)) 167 s 86-118 [id number] 07:08:00 Test Item Value Reference Range Interpretation Comments Rapid TEG Sample Type Citrated Whole Blood (test code = Rapid TEG (10/09/15 2:08 AM) Sample Type) [id number] 07:08:00 Test Item Value Reference Range Interpretation Comments Estimated % Lysis (test 0.0 See_Comment [Au tomated message] The code = Estimated % system wh ich generated Lysis) this result tra nsmitted reference range : <=7.5. The reference r delaney was not used to int erpret this result as normal/abnormal . [id number] 07:08:00 Test Item Value Reference Range Interpretation Comments G-value (test code = G-value) 9.0 5.0-11.6 [id number] 07:08:00 Test Item Value Reference Range Interpretation Comments K-time (test code = K-time) 1.6 min 0.6-2.3 [place] 737096-03-17 07:08:00 Test Item Value Reference Range Interpretation Comments R-time (test code = R-time) 1.2 min 0.4-0.7 [place] 52887-03-17 07:08:00 Test Item Value Reference Range Interpretation Comments Split Point (test code = Split Point) 0.8 min [facility] Br[id number] 07:08:00 Test Item Value Reference Range Interpretation Comments Max Amp (test code = Max Amp) 64 mm 52-71 [facility]h[id number] 07:08:00 Test Item Value Reference Range Interpretation Comments Angle (test code = Angle) 68 degrees 64-80 [id number] 07:08:00 Test Item Value Reference Range Interpretation Comments ACT (TEG) (test code = ACT (TEG)) 167 s 86-118 [facility]hamOewjffhNMWLTZCUGF3438-12-04 07:08:00 Test Item Value Reference Range Interpretation Comments Rapid TEG Sample Type Citrated Whole Blood (test code = Rapid TEG (10/09/15 2:08 AM) Sample Type) [id number] 07:08:00 Test Item Value Reference Range Interpretation Comments Estimated % Lysis (test 0.0 See_Comment [Au tomated message] The code = Estimated % system wh ich generated Lysis) this result tra nsmitted reference range : <=7.5. The reference r delaney was not used to int erpret this result as normal/abnormal . [place] 737096-03-17 07:08:00 Test Item Value Reference Range Interpretation Comments G-value (test code = G-value) 9.0 5.0-11.6 [place] 737096-03-17 07:08:00 Test Item Value Reference Range Interpretation Comments K-time (test code = K-time) 1.6 min 0.6-2.3 [facility]hamWdkgmxyVYXFMNWJVV9136-27-17 07:08:00 Test Item Value Reference Range Interpretation Comments R-time (test code = R-time) 1.2 min 0.4-0.7 [facility]hamDiqjipdBJFTIRVATJ6051-71-06 07:08:00 Test Item Value Reference Range Interpretation Comments Split Point (test code = Split Point) 0.8 min [id number] 07:08:00 Test Item Value Reference Range Interpretation Comments Max Amp (test code = Max Amp) 64 mm 52-71 [facility]hamPlksnvmWQUQDTXZHO2531-04-89 07:08:00 Test Item Value Reference Range Interpretation Comments Angle (test code = Angle) 68 degrees 64-80 [id number] 07:08:00 Test Item Value Reference Range Interpretation Comments ACT (TEG) (test code = ACT (TEG)) 167 s 86-118 [facility]hamJqtwtwlTOTISULKVI5527-31-10 07:08:00 Test Item Value Reference Range Interpretation Comments Rapid TEG Sample Type Citrated Whole Blood (test code = Rapid TEG (10/09/15 2:08 AM) Sample Type) [id number] 07:08:00 Test Item Value Reference Range Interpretation Comments Estimated % Lysis (test 0.0 See_Comment [Au tomated message] The code = Estimated % system wh ich generated Lysis) this result tra nsmitted reference range : <=7.5. The reference r delaney was not used to int erpret this result as normal/abnormal . [facility] [id number] 07:08:00 Test Item Value Reference Range Interpretation Comments G-value (test code = G-value) 9.0 5.0-11.6 [facility] [id number] 07:08:00 Test Item Value Reference Range Interpretation Comments K-time (test code = K-time) 1.6 min 0.6-2.3 [facility] [id number] 07:08:00 Test Item Value Reference Range Interpretation Comments R-time (test code = R-time) 1.2 min 0.4-0.7 [place] 737096-03-17 07:08:00 Test Item Value Reference Range Interpretation Comments Split Point (test code = Split Point) 0.8 min [facility] [id number] 07:08:00 Test Item Value Reference Range Interpretation Comments Max Amp (test code = Max Amp) 64 mm 52-71 [facility] [id number] 07:08:00 Test Item Value Reference Range Interpretation Comments Angle (test code = Angle) 68 degrees 64-80 [facility]h[id number] 07:08:00 Test Item Value Reference Range Interpretation Comments ACT (TEG) (test code = ACT (TEG)) 167 s 86-118 [facility] [id number] 07:08:00 Test Item Value Reference Range Interpretation Comments Rapid TEG Sample Type Citrated Whole Blood (test code = Rapid TEG (10/09/15 2:08 AM) Sample Type) [facility]
[2022-12-10 16:45] LABS: Specific Gravity 1.008 (1.005-1.030); Urine Bilirubin NEGATIVE (Negative); Urine Blood Negative (Negative); Urine Clarity Clear (Clear); Urine Color Colorless (Yellow); Urine Glucose NEGATIVE (Negative); Urine Protein NEGATIVE (Negative); Urine Urobilinogen Normal (Normal); Urine pH 7.5 (5.0-7.0)
--- NOTE | 2022-12-10 17:00 | RAD REPORT ---
EXAM DESCRIPTION: RAD - Chest Single View - 12/10/2022 4:52 pm CLINICAL HISTORY: CHEST PAIN Chest pain. COMPARISON: Chest Single View dated 12/03/2022; Chest Single View dated 05/05/2021; Chest Single View dated 08/16/2019; Chest Single View dated 08/11/2019 FINDINGS: Portable technique limits examination quality. Mild pulmonary edema. The heart is moderately enlarged with multilead pacer device. No displaced frac tures. IMPRESSION: Mild CHF versus volume overload pattern.
[2022-12-10] MEDS ORDERED: METOPROLOL TARTRATE 5 MG/5 ML INJ IV ONE (17:10)
[2022-12-10] MEDS ORDERED: FUROSEMIDE 20 MG/ 2ML VIAL ONE (17:10)
[2022-12-10] MEDS ORDERED: DIGOXIN 0.25 MG/ML AMP ONE (17:10)
[2022-12-10] MEDS ORDERED: NA CHLORIDE 0.9% 1,000 ML ONE (17:11)
[2022-12-10] MEDS ORDERED: MAGNESIUM SULFATE 1 gm IVPB 1 GM/100 ML BAG IV ONE (17:11)
--- NOTE | 2022-12-10 17:48 | ER ---
Nurse's Notes [facility] Name: Valentín Sneior Jr Age: 77 yrs Sex: Male : 1945 Arrival Date: 12/10/2022 Time: 16:09 Bed 19 Private MD: Diagnosis: Typical atrial flutter;Tachycardia, unspecified;Chest pain, unspecified;Edema, unspecified;Systolic (congestive) heart failure;COPD/ Chronic obstructive pulmonary disease, unspecified Presentation: 12/10 16:18 Chief complaint: EMS states[facility] Pt reports falling ld1 three times today - pt reports hitting head - denies pain. Pt is on blood thinners. Abrasions to right elbow. Upon arrival to ER - pt in atrial fibrillation. Coronavirus screen: At this time, the client does not indicate any symptoms associated with coronavirus-19. Ebola Screen: No symptoms or risks identified at this time. Initial Sepsis Screen: Does the patient meet any 2 criteria? No. Patient's initial sepsis screen is negative. Does the patient have a suspected source of infection? No. Patient's initial sepsis screen is negative. Risk Assessment: Do you want to hurt yourself or someone else? Patient reports no desire to harm self or others. Onset of symptoms was December 10, 2022. Care prior to arrival: Medication(s) given: Cardizem 10 mg IVP. 16:18 Method Of Arrival: EMS: [facility] ld1 16:18 Acuity: ILANA 3 ld1 Triage Assessment: 16:20 General: Appears in no apparent distress. comfortable, Behavior is calm, cooperative, ld1 appropriate for age. Pain: Denies pain. EENT: No signs and/or symptoms were reported regarding the EENT system. Neuro: Level of Consciousness is awake, alert, obeys commands, Oriented to person, place, time, situation. Cardiovascular: Capillary refill < 3 seconds Patient's skin is warm and dry. Cardiovascular: Rhythm is atrial fibrillation. Respiratory: Airway is patent Respiratory effort is even, unlabored. GI: Abdomen is flat, non-distended. : No signs and/or symptoms were reported regarding the genitourinary system. Derm: No signs and/or symptoms reported regarding the dermatologic system. Musculoskeletal: No signs and/or symptoms reported regarding the musculoskeletal system. Historical: - Allergies: 16:20 Morphine; ld1 - Home Meds: 16:20 apixaban 5 mg Oral 1 tab 2 times per day [Active]; Amiodarone Oral once daily [Active]; ld1 atorvastatin Oral once daily [Active]; metoprolol tartrate 100 mg Oral tablet daily [Active]; finasteride 5 mg Oral tab 1 tab once daily [Active]; loratadine 10 mg oral capsule daily [Active]; calcium 250 mg/ vitamin D 125 Tab [Active]; Creon 6,000-19,000 -30,000 unit Oral cpDR 1 cap 4 x day [Active]; docusate calcium 50 mg Oral cap [Active]; duloxetine Oral once daily [Active]; - PMHx: 16:20 Atrial fibrillation; Chronic obstructive lung disease; Congestive heart failure; ld1 Hypertensive disorder; CVA; - Immunization history:: Adult Immunizations up to date, Client reports receiving the 2nd dose of the Covid vaccine. - Social history:: Smoking status: Patient denies any tobacco usage or history of. Patient/guardian denies using alcohol. Screenin:23 [facility] ED Fall Risk Assessment (Adult) History of falling in the last 3 months, ld1 including since admission No falls in past 3 months (0 pts). Abuse screen: Denies threats or abuse. Denies injuries from another. Nutritional screening: No deficits noted. Tuberculosis screening: No symptoms or risk factors identified. Assessment: 16:23 Reassessment: See triage assessment. ld1 19:30 General: Appears comfortable, Behavior is calm, cooperative. Pain: Denies pain. Pain:. ha1 Neuro: Level of Consciousness is awake, alert, obeys commands, Oriented to person, place, time, situation. Cardiovascular: Capillary refill < 3 seconds Patient's skin is warm and dry. Respiratory: Airway is patent Respiratory effort is even, unlabored, Respiratory pattern is regular, symmetrical, Breath sounds with crackles bilaterally. GI: No signs and/or symptoms were reported involving the gastrointestinal system. : No signs and/or symptoms were reported regarding the genitourinary system. Derm: Skin is fragile, Skin is normal. Musculoskeletal: Circulation, motion, and sensation intact. 20:17 Reassessment: Patient and/or family updated on plan of care and expected duration. Pain ha1 level reassessed. Patient is alert, oriented x 3, equal unlabored respirations, skin warm/dry/pink. Vital Signs: 16:18 BP 112 / 82; Pulse 110; Resp 18; Temp 98.1(O); Pulse Ox 99% on R/A; Weight 61.23 kg; ld1 Height 5 ft. 6 in. ; Pain 0/10; 17:10 BP 134 / 91; Pulse 145; Resp 18; Pulse Ox 98% on R/A; ld1 17:15 BP 134 / 91; Pulse 110; Resp 26; Pulse Ox 96% on R/A; ld1 18:01 BP 137 / 78; Pulse 91; Resp 19; Pulse Ox 98% on R/A; ld1 18:22 BP 137 / 78; Pulse 98; Resp 21; Pulse Ox 98% on R/A; ld1 19:30 BP 137 / 76; Pulse 101; Resp 20 S; Pulse Ox 98% on R/A; ha1 20:00 BP 145 / 103; Pulse 104; Resp 20; Temp 98.3(O); Pulse Ox 100% on R/A; ha1 16:18 Body Mass Index 21.79 (61.23 kg, 167.64 cm) ld1 16:18 Pain Scale: Adult ld1 ED Course: 16:11 Patient arrived in ED. eb 16:12 Abdoulaye Zuniga MD is Attending Physician. [facility] 16:17 Nichole Erazo, RN is Primary Nurse. ld1 16:20 Triage completed. ld1 16:20 Arm band placed on right wrist. EKG completed in triage. Results shown to MD. ld1 16:23 Patient has correct armband on for positive identification. Placed in gown. Bed in low ld1 position. Call light in reach. Side rails up X2. alarm security or surveillance monitor on. Pulse ox on. NIBP on. Door closed. Noise minimized. Warm blanket given. 16:23 No provider procedures requiring assistance completed. Maintain EMS IV. Dressing ld1 intact. Good blood return noted. Site clean \T\ dry. Gauge \T\ site: 22 LAC. Patient maintains SpO2 saturation greater than 95% on room air. 16:54 XRAY Chest (1 view) In Process Unspecified. EDMS 17:[facility] to [facility] or get a notification ID # / per Melany since eb [facility] they have the notification ID # and will have to call on Tuesday when they open to get it. 17:46 Ayan Roche MD is Hospitalizing Provider. [facility] 18:01 Inserted saline lock: 20 gauge in right antecubital area, using aseptic technique. ld1 Blood collected. 18:51 Head Brain Wo Cont CT In Process Unspecified. EDDE 20:17 Patient admitted, IV remains in place. ha1 Administered Medications: 17:26 Discontinued: NS 0.9% IV 1000 ml IV at 125 ml/hr continuous peter 17:14 Drug: NS 0.9% IV 1000 ml Route: IV; Rate: 125 ml/hr; Site: right hand; ld1 17:14 Drug: Metoprolol IVP 5 mg Route: IVP; Site: right hand; ld1 17:14 Drug: Magnesium Sulfate IVPB 1 grams Route: IVPB; Infused Over: 1 hrs; Site: right hand;ld1 17:14 Drug: Digoxin IVP 0.5 mg Route: IVP; Site: right hand; ld1 17:14 Drug: Furosemide IVP 20 mg Route: IVP; Site: right hand; ld1 18:01 Drug: amiodarone PO 200 mg Route: PO; ld1 18:01 Drug: Eliquis PO 5 mg Route: PO; ld1 18:01 Drug: Famotidine IVP 20 mg Route: IVP; Site: right antecubital; ld1 Medication: 16:23 VIS not applicable for this client. ld1 Outcome: 17:47 Decision to Hospitalize by Provider. [facility] 20:16 Admitted to Med/surg accompanied by tech, via stretcher, room 211, with chart, Report ha1 called to DEVON Perez 20:16 Condition: stable 20:16 Discharge instructions given to patient, Instructed on the need for admit, Demonstrated understanding of instructions. 20:31 Patient left the ED. ha1 Signatures: Dispatcher [employer] EDAbdoulaye Sweet MD MD cha Botello, Elizabeth eb Sims, Lauren, DEVON RN ld1 Idalia Thapa RN RN ha1
--- NOTE | 2022-12-10 17:48 | EDPHYS ---
Physician Documentation [facility] Name: Valentín Senior Jr Age: 77 yrs Sex: Male : 1945 Arrival Date: 12/10/2022 Time: 16:09 Bed 19 Private MD: ED Physician Abdoulaye Zuniga HPI: 12/10 17:32 This 77 yrs old Male presents to ER via EMS with complaints of Chest Pain - peter Rapid heart rate. 17:32 The patient or guardian reports chest pain that is located primarily in the substernal peter area. Onset: just prior to arrival, today. The pain does not radiate. Associated signs and symptoms: Pertinent positives: shortness of breath. Historical: - Allergies: 16:20 Morphine; ld1 - Home Meds: 16:20 apixaban 5 mg Oral 1 tab 2 times per day [Active]; Amiodarone Oral once daily [Active]; ld1 atorvastatin Oral once daily [Active]; metoprolol tartrate 100 mg Oral tablet daily [Active]; finasteride 5 mg Oral tab 1 tab once daily [Active]; loratadine 10 mg oral capsule daily [Active]; calcium 250 mg/ vitamin D 125 Tab [Active]; Creon 6,000-19,000 -30,000 unit Oral cpDR 1 cap 4 x day [Active]; docusate calcium 50 mg Oral cap [Active]; duloxetine Oral once daily [Active]; - PMHx: 16:20 Atrial fibrillation; Chronic obstructive lung disease; Congestive heart failure; ld1 Hypertensive disorder; CVA; - Immunization history:: Adult Immunizations up to date, Client reports receiving the 2nd dose of the Covid vaccine. - Social history:: Smoking status: Patient denies any tobacco usage or history of. Patient/guardian denies using alcohol. ROS: 17:35 Constitutional: Negative for fever, chills, and weight loss, Eyes: Negative for injury, peter pain, redness, and discharge, ENT: Negative for injury, pain, and discharge, Neck: Negative for injury, pain, and swelling, Abdomen/GI: Negative for abdominal pain, nausea, vomiting, diarrhea, and constipation, Back: Negative for injury and pain, : Negative for injury, bleeding, discharge, and swelling, MS/Extremity: Negative for injury and deformity, Skin: Negative for injury, rash, and discoloration, Neuro: Negative for headache, weakness, numbness, tingling, and seizure, Psych: Negative for depression, anxiety, suicide ideation, homicidal ideation, and hallucinations, Allergy/Immunology: Negative for hives, rash, and allergies, Endocrine: Negative for neck swelling, polydipsia, polyuria, polyphagia, and marked weight changes, Hematologic/Lymphatic: Negative for swollen nodes, abnormal bleeding, and unusual bruising. 17:35 Cardiovascular: Positive for chest pain, palpitations. 17:35 Respiratory: Positive for cough, shortness of breath, at rest. 17:35 MS/extremity: Positive for swelling, of the right leg and left leg. Exam: 17:35 Constitutional: This is a well developed, well nourished patient who is awake, alert, peter and in no acute distress. Head/Face: Normocephalic, atraumatic. Eyes: Pupils equal round and reactive to light, extra-ocular motions intact. Lids and lashes normal. Conjunctiva and sclera are non-icteric and not injected. Cornea within normal limits. Periorbital areas with no swelling, redness, or edema. ENT: Nares patent. No nasal discharge, no septal abnormalities noted. Tympanic membranes are normal and external auditory canals are clear. Oropharynx with no redness, swelling, or masses, exudates, or evidence of obstruction, uvula midline. Mucous membranes moist. Neck: Trachea midline, no thyromegaly or masses palpated, and no cervical lymphadenopathy. Supple, full range of motion without nuchal rigidity, or vertebral point tenderness. No Meningismus. Chest/axilla: Normal chest wall appearance and motion. Nontender with no deformity. No lesions are appreciated. Abdomen/GI: Soft, non-tender, with normal bowel sounds. No distension or tympany. No guarding or rebound. No evidence of tenderness throughout. Back: No spinal tenderness. No costovertebral tenderness. Full range of motion. Male : Normal genitalia with no discharge or lesions. Skin: Warm, dry with normal turgor. Normal color with no rashes, no lesions, and no evidence of cellulitis. Neuro: Awake and alert, GCS 15, oriented to person, place, time, and situation. Cranial nerves II-XII grossly intact. Motor strength 5/5 in all extremities. Sensory grossly intact. Cerebellar exam normal. Normal gait. Psych: Awake, alert, with orientation to person, place and time. Behavior, mood, and affect are within normal limits. 17:35 Cardiovascular: Rate: tachycardic, actual rate is 110 bpm, Rhythm: irregularly irregular, Pulses: Pulses are 4+ in bilateral radial, brachial, femoral, popliteal, posterior tibial and and dorsalis pedis arteries.. Heart sounds: normal, normal S1and S2, no S3 or S4, no murmur, no rub, no gallop, murmur, not appreciated, Edema: 2+ edema to level of left midcalf and right midcalf. 17:35 ECG was reviewed by the Attending Physician. Vital Signs: 16:18 BP 112 / 82; Pulse 110; Resp 18; Temp 98.1(O); Pulse Ox 99% on R/A; Weight 61.23 kg; ld1 Height 5 ft. 6 in. ; Pain 0/10; 17:10 BP 134 / 91; Pulse 145; Resp 18; Pulse Ox 98% on R/A; ld1 17:15 BP 134 / 91; Pulse 110; Resp 26; Pulse Ox 96% on R/A; ld1 18:01 BP 137 / 78; Pulse 91; Resp 19; Pulse Ox 98% on R/A; ld1 18:22 BP 137 / 78; Pulse 98; Resp 21; Pulse Ox 98% on R/A; ld1 19:30 BP 137 / 76; Pulse 101; Resp 20 S; Pulse Ox 98% on R/A; ha1 20:00 BP 145 / 103; Pulse 104; Resp 20; Temp 98.3(O); Pulse Ox 100% on R/A; ha1 16:18 Body Mass Index 21.79 (61.23 kg, 167.64 cm) ld1 16:18 Pain Scale: Adult ld1 MDM: 16:12 Patient medically screened. peter 17:40 Differential diagnosis: Anemia Anxiety Reaction CHF exacerbation, Chronic Obstructive peter Pulmonary Disease abnormal EKG, acute myocardial infarction, acute pericarditis, anxiety, coronary artery disease costochondritis, arrythmia, dehydration, hiatal hernia, myocarditis, pancreatitis, peptic ulcer disease, pneumonia, unstable angina, pneumonia, pulmonary edema, Pulmonary Embolism reactive airway disease. HEART Score: History: Moderately Suspicious (1), ECG: Non specific repolarization disturbance / LBTB / PM (1), Age: > or = 65 years (2), Risk Factors: > or = 3 Risk factors for atherosclerotic disease (2), [Hypercholesterolemia] [Hypertension] [+ Family HX] [Obesity] Troponin: < or = 1 x Normal Limit (0). The patient was not given aspirin in the Emergency Department. Not indicated due to patient's past medical history. JUANITO Risk Score: 1 - patient's age is greater or equal to 65 years, 1 - Three or more CAD risk factors, 1- Known CAD, TOTAL SCORE = 3. Immunization status: Pneumococcal vaccine: within last 5 years. Influenza vaccine: within last 5 years. Data reviewed: vital signs, nurses notes, old medical records, lab test result(s), EKG, radiologic studies. Consideration of Admission/Observation Patient was admitted/placed on observation. Escalation of care including admission/observation considered. I considered the following discharge prescriptions or medication management in the emergency department Medications were administered in the Emergency Department. See MAR. Independent interpretation of the following test(s) in the Emergency Department EKG: See my EKG interpretation above. Test considered but Not performed: CT: no ct chest. Historians other than the Patient: [place] [place] Care significantly affected by the following chronic conditions: Hypertension, Congestive Heart Failure, Chronic Obstructive Pulmonary Disease, Obesity. Counseling: I had a detailed discussion with the patient and/or guardian regarding: the historical points, exam findings, and any diagnostic results supporting the discharge/admit diagnosis, the presence of at least one elevated blood pressure reading (>120/80) during this emergency department visit, lab results, radiology results, the need for further work-up and treatment in the hospital. 12/10 16:13 Order name: Basic Metabolic Panel; Complete Time: 18:33 [facility] 12/10 16:13 Order name: CBC with Diff; Complete Time: 18:27 [facility] 12/10 16:13 Order name: LFT's; Complete Time: 18:33 12/10 16:13 Order name: Magnesium; Complete Time: 18:33 12/10 16:13 Order name: NT PRO-BNP; Complete Time: 18:33 12/10 16:13 Order name: PT-INR; Complete Time: 18:04 12/10 16:13 Order name: Troponin HS; Complete Time: 18:33 peter 12/10 16:13 Order name: TSH; Complete Time: 18:33 [facility] 12/10 16:13 Order name: Urinalysis w/ reflexes; Complete Time: 16:48 [facility] 12/10 16:13 Order name: XRAY Chest (1 view); Complete Time: 17:18 [facility] 12/10 18:32 Order name: Head Brain Wo Cont CT; Complete Time: 19:00 sb4 12/10 16:13 Order name: EKG; Complete Time: 16:14 [facility] 12/10 16:13 Order name: Cardiac monitoring; Complete Time: 16:24 [facility] 12/10 16:13 Order name: EKG - Nurse/Tech; Complete Time: 16:24 [facility] 12/10 16:13 Order name: IV Saline Lock; Complete Time: 16:24 [facility] 12/10 16:13 Order name: Labs collected and sent; Complete Time: 17:54 [facility] 12/10 16:13 Order name: O2 Per Protocol; Complete Time: 16:24 [facility] 12/10 16:13 Order name: O2 Sat Monitoring; Complete Time: 16:24 [facility] EC:35 Rate is 110 beats/min. Rhythm is irregularly irregular. QRS [place] is Normal. CA interval peter is normal. QRS interval is normal. QT interval is normal. No Q waves. T waves are Normal. No ST changes noted. Clinical impression: Atrial Flutter and No evidence of ischemia. Interpreted by me. Reviewed by me. Administered Medications: 17:26 Discontinued: NS 0.9% IV 1000 ml IV at 125 ml/hr continuous peter 17:14 Drug: NS 0.9% IV 1000 ml Route: IV; Rate: 125 ml/hr; Site: right hand; ld1 17:14 Drug: Metoprolol IVP 5 mg Route: IVP; Site: right hand; ld1 17:14 Drug: Magnesium Sulfate IVPB 1 grams Route: IVPB; Infused Over: 1 hrs; Site: right hand;ld1 17:14 Drug: Digoxin IVP 0.5 mg Route: IVP; Site: right hand; ld1 17:14 Drug: Furosemide IVP 20 mg Route: IVP; Site: right hand; ld1 18:01 Drug: amiodarone PO 200 mg Route: PO; ld1 18:01 Drug: Eliquis PO 5 mg Route: PO; ld1 18:01 Drug: Famotidine IVP 20 mg Route: IVP; Site: right antecubital; ld1 Disposition Summary: 12/10/22 17:47 Hospitalization Ordered Hospitalization Status: Inpatient Admission peter Provider: Ayan Roche cha Location: Telemetry/MedSurg (Inpatient) peter Condition: Fair peter Problem: new peter Symptoms: have improved peter Bed/Room Type: Standard peter Room Assignment: 211(12/10/22 19:21) mw Diagnosis - Typical atrial flutter peter - Tachycardia, unspecified peter - Chest pain, unspecified peter - Edema, unspecified peter - Systolic (congestive) heart failure peter - COPD/ Chronic obstructive pulmonary disease, unspecified peter Forms: - Medication Reconciliation Form peter - SBAR form peter Signatures: Dispatcher [employer] EDEdith Goldstein RN RN Abdoulaye Eckert MD MD cha Sims, Lauren, RN RN ld1 Paula oGldsmith PA-C PA-C sb4 Corrections: (The following items were deleted from the chart) 19: 17:47 peter mw
[2022-12-10 18:00] LABS: Absolute Lymphocytes (CBC) 0.4 K/uL (0.7-4.9); Lymphocytes % 5.3 % (15.3-44.8); MCV 91.4 fL (80-100); MPV 7.6 fL (7.6-11.3); RBC Red Blood Cell Count 3.71 M/uL (4.33-5.43)
[2022-12-10] MEDS ORDERED: APIXABAN 5 MG TABLET ONE (18:04)
[2022-12-10] MEDS ORDERED: AMIODARONE HCL 200 MG TAB ONE (18:05)
[2022-12-10] MEDS ORDERED: FAMOTIDINE 20 MG/2 ML VIAL IV ONE (18:05)
[2022-12-10 18:29] LABS: Albumin 2.6 g/dL (3.4-5.0); Bilirubin Direct 0.2 mg/dL (0-0.2); Bilirubin Indirect, Calculated 0.3 mg/dL (0.2-0.8); Bilirubin Total 0.5 mg/dL (0.2-1.0); Magnesium 4.2 mg/dL (1.6-2.4); Protein, Total 6.6 g/dL (6.4-8.2); Thyroid Stimulating Hormone 2.88 uIU/mL (0.358-3.740); Troponin High Sensitivity 12.3 pg/mL (<58.9)
--- NOTE | 2022-12-10 18:56 | RAD REPORT ---
EXAM DESCRIPTION: CT - Head Brain Wo Cont - 12/10/2022 6:49 pm CLINICAL HISTORY: fall, hit head, on eliquis Fall, trauma, head injury COMPARISON: Chest Single View dated 12/06/2022; Chest Single View dated 11/11/2022; Chest Single View dated 11/10/2022; Chest Pa And Lat (2 Views) dated 09/06/2022Head Brain Wo Cont dated 01/07/2019; Head B rain Wo Cont dated 11/16/2017 TECHNIQUE: All CT scans are performed using dose optimization technique as appropriate and may inclu de automated exposure control or mA/KV adjustment according to patient size. FINDINGS: No intracranial hemorrhage, hydrocephalus or extra-axial fluid collection.Moderate general ized brain atrophy.Large area of gliosis right frontal lobe compatible with old infarction. The paranasal sinuses and mastoids are clear. The calvarium is intact. IMPRESSION: No acute intracranial abnormality.
--- NOTE | 2022-12-10 19:10 | P.HP ---
Certification for Inpatient Patient admitted to: Inpatient With expected LOS: <2 Midnights Patient will require the following post-hospital care: None Practitioner: I am a practitioner with admitting privileges, knowledge of patient current condition, hospital course, and medical plan of care. Services: Services provided to patient in accordance with Admission requirements found in Title 42 Section 412.3 of the Code of Federal Regulations Patient History Date of Service: 12/10/22 Primary Care Provider: [place] Reason for admission: Atrial Flutter History of Present Illness: Mr. Senior ia a 77 year old male with past medical history of CVA with left sided weakness, coronary artery disease, CHF with pacemaker/defibrillator, COPD, afib on eliquis, and hypertension who presented to the emergency department from [place] with rapid aflutter, chest pain, and shortness of breath. Patient additionally reports that he has fallen 3 times today. EMS administered 10 mg IV cardizem which did not convert him. He was noted to be aflutter with a rate of 145 upon arrival. He was given IV metoprolol and digoxin in the ED which brought him down to the 90s-100s. He states the chest pain and shortness of breath have resolved. No significant lab abnormalities. Chest xray showed "mild CHF versus volume overload pattern." He was additionally given 40 mg IV lasix, PO amiodarone and eliquis. Patient will be admitted for further management. Allergies morphine Adverse Reaction (Severe, Verified 12/03/22 20:46) hallucination hydromorphone [From Dilaudid] Adverse Reaction (Verified 12/03/22 20:46) narcan needed, bp dropped, sats dropped, unresponsive Home medications list reviewed: Yes Home Medications: Apixaban [Eliquis] 5 mg PO BID 08/05/19 Calcium Carbonate/Vitamin D3 [Calcium 250-D Tablet] 250 mg PO DAILY 08/05/19 Finasteride [Proscar*] 5 mg PO DAILY 08/05/19 Insulin Glargine Human [Lantus*] 7 units SQ BID 08/05/19 Latanoprost/Pf [Latanoprost 0.005% Eye Drop] 2 drops EACH EYE DAILY 08/05/19 Lidocaine [Lidocaine Pain Relief] 1 patch TOP DAILY 08/05/19 Loratadine [Claritin*] 10 mg PO DAILY 08/05/19 Omeprazole 20 mg PO DAILY 08/05/19 Simvastatin 10 mg PO BEDTIME 08/05/19 Tamsulosin HCl [Flomax] 0.4 mg PO DAILY 08/05/19 raNITIdine HCL [Heartburn Relief] 300 mg PO DAILY 08/05/19 Enzymes,Digestive [Enzyme Digest] 1 each PO DAILY PRN 08/13/19 Docusate [Colace Cap*] 100 mg PO BID 12/03/22 Insulin -Regular Human [Novolin -R] See Protocol SQ ACHS 12/03/22 Lipase/Protease/Amylase [Sumit Ayala 6,000 Unit Capsule] 4 cap PO ACHS 12/03/22 Multivit with Iron,Minerals [Multivitamins with Iron] 1 tab PO DAILY 12/03/22 Codeine/APAP [Tylenol #3*] 1 tab PO Q6HP PRN 12/04/22 oxyBUTYnin chloride [Oxybutynin Chloride] 5 mg PO TID 12/04/22 Fluticasone/Salmeterol [Advair 250-50 Diskus] 1 each IH BID 30 Days #60 aero 12/05/22 Gabapentin [Neurontin*] 200 mg PO BID 30 Days #60 cap 12/05/22 Spironolactone [Aldactone*] 25 mg PO BID 30 Days #60 tab 12/05/22 - Past Medical/Surgical History Diabetic: Yes -: Atrial fibrillation -: CAD -: CVA 1993 2x -: DM-Type 2 -: Chronic anticoagulation -: HTN -: Chronic back pain -: History of Tobacco -: Back sx -: hernia sx -: laparotomy -: partial pancreas removed -: pacemaker Psychosocial/ Personal History: Patient is . - Family History Father -: Cancer Mother -: Cancer - Social History Smoking Status: Former smoker Alcohol use: No CD- Drugs: No Caffeine use: Yes Place of Residence: Home Review of Systems Respiratory: Shortness of Breath Cardiovascular: Chest Pain, Palpitations Physical Examination - Vital Signs Temperature: 98.1 F Blood Pressure: 137/78 Pulse: 98 Respirations: 21 Pulse Ox (%): 98 - Physical Exam General: Alert, In no apparent distress HEENT: Atraumatic, EOMI, Sclerae nonicteric Neck: Supple, 2+ carotid pulse no bruit Respiratory: Clear to auscultation bilaterally, Normal air movement Cardiovascular: Regular rate/rhythm, Normal S1 S2 Gastrointestinal: Normal bowel sounds, No tenderness Musculoskeletal: No tenderness Integumentary: No rashes Neurological: Normal speech, Normal affect - Studies Laboratory Data (last 24 hrs) 12/10/22 17:49: PT 11.0, INR 1.00 12/10/22 17:49: WBC 6.80, Hgb 11.1 L, Hct 34.0 L, Plt Count 209 12/10/22 17:49: Sodium 136, Potassium 4.0, BUN 10, Creatinine 0.87, Glucose 114 H, Magnesium 4.2 H, Total Bilirubin 0.5, AST 20, ALT 23, Alkaline Phosphatase 89 Assessment and Plan - Problems (Diagnosis) (1) Atrial flutter with rapid ventricular response Current Visit: Yes Status: Acute (2) CHF (congestive heart failure) Current Visit: Yes Status: Chronic Qualifiers: Heart failure type: diastolic Heart failure chronicity: acute on chronic Qualified Code(s): I50.33 - Acute on chronic diastolic (congestive) heart failure (3) COPD (chronic obstructive pulmonary disease) Current Visit: Yes Status: Chronic Qualifiers: COPD type: unspecified COPD Qualified Code(s): J44.9 - Chronic obstructive pulmonary disease, unspecified (4) DM2 (diabetes mellitus, type 2) Current Visit: Yes Status: Chronic Qualifiers: Diabetes mellitus group home insulin use: with group home use Diabetes mellitus complication status: with hyperglycemia Qualified Code(s): E11.65 - Type 2 diabetes mellitus with hyperglycemia; Z79.4 - nursing home (current) use of insulin (5) HTN (hypertension) Current Visit: Yes Status: Chronic Qualifiers: Hypertension type: primary hypertension Qualified Code(s): I10 - Essential (primary) hypertension (6) History of CVA (cerebrovascular accident) Current Visit: Yes Status: Chronic (7) CAD (coronary artery disease) Current Visit: Yes Status: Chronic Qualifiers: Coronary Disease-Associated Artery/Lesion type: [place] artery [place] vs. transplanted heart: [place] heart Associated angina: with other forms of angina Qualified Code(s): I25.118 - Atherosclerotic heart disease of [place] coronary artery with other forms of angina pectoris (8) Chronic anticoagulation Current Visit: Yes Status: Chronic - Plan Patient is admitted for further management of rapid aflutter. Rate has improved to the 90s-100s. Still afib/flutter. Consult cardiology. Obtain echocardiogram. Monitor on telemetry. Continue home amiodarone and eliquis. Magnesium was elevated on BMP although he had just received IV mag. Will repeat. Trend troponin. Head CT negative, he had a few falls today. He is supposed to walk with a walker because of his left sided weakness secondary to stroke but doesn't always use it. Physical therapy consulted. Check lipid panel and A1c. TSH within normal limits. Glucose monitoring and control with sliding scale. Discharge Plan: Home Plan to discharge in: 48 Hours - Advance Directives Does patient have a Living Will: No Does patient have a Durable POA for Healthcare: No - Code Status/Comfort Care Code Status Assessed: Yes Code Status: Full Code Physician Review: Patient Assessed, Agree with Above Assessment and Plan Critical Care: No Time Spent Managing Pts Care (In Minutes): 50
[2022-12-10] MEDS ORDERED: ONDANSETRON 4 MG/2 ML VIAL IV PRN (21:27)
[2022-12-10] MEDS: LEVALBUTEROL 1.25 MG/3 ML NEB IH PRN (21:50)
[2022-12-10] MEDS ORDERED: ALBUTEROL 2.5 MG/3 ML NEB SOL NEB PRN (21:51)
[2022-12-10] MEDS ORDERED: LEVALBUTEROL 1.25 MG/3 ML NEB ONE (22:03)
[2022-12-10] MEDS: APIXABAN 5 MG TABLET PO SCH (22:40)
[2022-12-10] MEDS: ACETAMINOPHEN 500 MG TAB PO PRN (22:44)
[2022-12-10 23:30] LABS: Magnesium 2.4 mg/dL (1.6-2.4); Troponin High Sensitivity 14.2 pg/mL (<58.9)
[2022-12-11 00:52] VITALS: BMI 19.7
[2022-12-11] MEDS: ACETAMINOPHEN 500 MG TAB PO PRN ×3 (05:36→20:23)
[2022-12-11 07:02] LABS: Absolute Lymphocytes (CBC) 0.5 K/uL (0.7-4.9); Hematocrit 32.3 % (39.6-49.0); Lymphocytes % 10.2 % (15.3-44.8); MCV 91.9 fL (80-100); MPV 7.6 fL (7.6-11.3); RBC Red Blood Cell Count 3.51 M/uL (4.33-5.43)
[2022-12-11 07:25] LABS: Magnesium 2.1 mg/dL (1.6-2.4); Phosphorus 3.2 mg/dL (2.5-4.9); Potassium 4.5 mEq/L (3.5-5.1); Troponin High Sensitivity 12.4 pg/mL (<58.9)
[2022-12-11] MEDS: APIXABAN 5 MG TABLET PO SCH ×2 (08:37→20:23)
[2022-12-11] MEDS ORDERED: PANTOPRAZOLE 40MG TABLET PO ONE (10:03)
[2022-12-11] MEDS: LEVALBUTEROL 1.25 MG/3 ML NEB IH PRN ×2 (10:30→18:06)
[2022-12-11] MEDS ORDERED: D50W 25 GM/50 ML SYRINGE IV PRN (12:06)
[2022-12-11] MEDS ORDERED: GLUCAGON 1 MG/VIAL IM PRN (12:06)
[2022-12-11] MEDS ORDERED: INSULIN 70/30 100 UNITS/ML SQ ONE (12:07)
--- NOTE | 2022-12-11 14:07 | CON ---
Date of Consultation: 12/11/2022 Reason For Consultation: AFib/flutter with rapid ventricular response. History Of Present Illness: 77-year-old male, history of CVA and left-sided weakness, coronary arter y disease, CHF, with a defibrillator in place, COPD, atrial fibrillation, and he is on Eliquis. Has hypertension as well. Presented to the emergency room due to atrial fibrillation with rapid ventricu lar response and he is short of breath and he is coughing with the sputum production. No chest pain. Past Medical History: As outlined above in the HPI. Medications: Refer reconciliation sheet for detailed list. Allergies: MORPHINE AND HYDROMORPHONE. Family History: No premature coronary artery disease or cancer. Social History: He is an ex-smoker. Does not drink or use any drugs. Review of Systems: All systems reviewed and they were negative except as mentioned in the HPI. Physical Examination: Vital Signs: Reviewed. Head and Neck: Pupils are equal, reactive to light. Intact eye movements. Neck is supple. Thyroid is not enlarged. Lungs: Has rhonchi bilaterally with wheezing. No accessory muscle use or muscle retraction. Heart: Irregularly irregular. No extra sounds. Abdomen: Soft and nontender. Bowel sounds positive. No organomegaly. No masses or hernia. No rig idity or rebound. Extremities: No edema, clubbing, or cyanosis. Intact pulses. Skin: No rash. Neurological: Alert, awake, oriented x3. No new focal deficits appreciated. He has left-sided weak ness. Investigations: BUN 13, creatinine 0.9, and troponins are negative. NT-ProBNP is 3434 and hemoglobi n is 10.5. Chest x-ray, mild CHF. Assessment And Recommendations: 1.Atrial fibrillation/flutter with rapid ventricular response. I recommend IV amiodarone load, not sure what he received in the emergency room, but he needs a full 24 hours IV amiodarone load with a b olus of 150 mg over 10 minutes, then 1 mg/minute for 6 hours, then 0.5 mg/minute for 16 hours and als o continue Eliquis and plan for a EDMUND-guided cardioversion after the amiodarone load. 2.Congestive heart failure exacerbation, unknown ejection fraction, but he has an ICD, so the ejecti on fraction is probably very low. We need to restore the sinus rhythm and I recommend to start the p atient on oral diuretics with Lasix 40 mg daily and monitor. 3.Chronic obstructive pulmonary disease exacerbation with acute bronchitis, significant rhonchi and producing sputum. I recommend antibiotics and chronic obstructive pulmonary disease exacerbation man agement. /MODL Voice ID: [id number] Report ID: [id number]
[2022-12-11] MEDS: AMIODARONE HCL 450 MG in D5W 241 ML IV SCH (19:21)
[2022-12-11] MEDS: DULERA 100/5 (MOMETASONE/FORMOTEROL) INHALER IH SCH (20:23)
[2022-12-11] MEDS: dexAMETHasone 4 MG/ML VIAL IV SCH (23:09)
[2022-12-12] MEDS: LEVALBUTEROL 1.25 MG/3 ML NEB IH PRN (04:15)
[2022-12-12 04:38] VITALS: O2SAT 98
[2022-12-12] MEDS: dexAMETHasone 4 MG/ML VIAL IV SCH ×2 (05:45→12:20)
[2022-12-12] MEDS ORDERED: INSULIN GLARGINE 100 UNIT/ML SQ ONE (07:41)
[2022-12-12] MEDS: DULERA 100/5 (MOMETASONE/FORMOTEROL) INHALER IH SCH ×2 (08:13→20:33)
[2022-12-12] MEDS: APIXABAN 5 MG TABLET PO SCH ×2 (08:13→20:33)
[2022-12-12] MEDS: AMIODARONE HCL 450 MG in D5W 241 ML IV SCH (10:44)
[2022-12-12] MEDS ORDERED: INSULIN 70/30 100 UNITS/ML SQ ONE ×2 (12:45→16:51)
[2022-12-12] MEDS: ACETAMINOPHEN 500 MG TAB PO PRN (15:20)
[2022-12-12] MEDS ORDERED: NPH (HUMAN) 100 UNITS/ML INSULIN SQ SCH (17:00)
[2022-12-12] MEDS: METOPROLOL TAR 25 MG TAB PO SCH (17:12)
--- NOTE | 2022-12-12 18:14 | PN ---
Date of Progress Note: 12/12/2022 Subjective: Seen by bedside. No new complaints, but his heart rate is improving slowly. Review of Systems: No chest pain. No shortness of breath, orthopnea, cough. No nausea, vomiting, diarrhea. All other systems reviewed and they were negative. Physical Examination: Vital Signs: Reviewed. Head and Neck: Pupils are equal, reactive to light. Intact eye movements. No JVD. No cervical lym phadenopathy. Neck is supple. Thyroid is not enlarged. Lungs: Decreased breathing sounds bilaterally with rhonchi. No accessory muscle use or muscle retra ction. Heart: Irregularly irregular. No extra sounds. Abdomen: Soft, nontender. Bowel sounds positive. No organomegaly. No masses or hernia. No rigidi ty or rebound. Extremities: No edema, clubbing, or cyanosis. Intact pulses. Skin: No rash. Neurologic: Alert, awake, oriented x3. No acute focal deficits appreciated. Investigations: Labs were reviewed. Assessment And Recommendations: 1.Atrial fibrillation with rapid ventricular response. Continue amiodarone until tomorrow and start Lopressor 25 mg twice a day and titrate up for better heart rate control and blood pressure control. We will plan for a possible EDMUND cardioversion tomorrow. Continue Eliquis 5 mg twice a day. 2.Hypertension. Introduce metoprolol as above and titrate further as needed. SR/MODL Voice ID: [id number] Report ID: [id number]
[2022-12-12] MEDS: INSULIN -REGULAR HUMAN 50 UNIT/0.5 ML ML IV SCH (20:49)
[2022-12-12] MEDS ORDERED: dexAMETHasone 4 MG/ML VIAL IV SCH (21:00)
[2022-12-13] MEDS: ACETAMINOPHEN 500 MG TAB PO PRN (00:17)
[2022-12-13] MEDS: AMIODARONE HCL 450 MG in D5W 241 ML IV SCH (01:38)
--- NOTE | 2022-12-13 03:03 | P.PN ---
Date of Service: 12/11/22 Subjective No new complaints; blood sugars not well controlled Physical Examination - Vital Signs reviewed - Physical Exam General: Alert, In no apparent distress Respiratory: Clear to auscultation bilaterally, Normal air movement Cardiovascular: Regular rate/rhythm, Normal S1 S2 Gastrointestinal: Normal bowel sounds, No tenderness Musculoskeletal: No tenderness Neurological: No focal deficits Assessment and Plan - Problems (Diagnosis) (1) Atrial flutter with rapid ventricular response Current Visit: Yes Status: Acute (2) CHF (congestive heart failure) Current Visit: Yes Status: Chronic Heart failure type: diastolic Heart failure chronicity: acute on chronic Qualified Code(s): I50.33 - Acute on chronic diastolic (congestive) heart failure (3) COPD (chronic obstructive pulmonary disease) Current Visit: Yes Status: Chronic COPD type: unspecified COPD Qualified Code(s): J44.9 - Chronic obstructive pulmonary disease, unspecified (4) DM2 (diabetes mellitus, type 2) Current Visit: Yes Status: Chronic 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 use: with group home use Diabetes mellitus complication status: with hyperglycemia Qualified Code(s): E11.65 - Type 2 diabetes mellitus with hyperglycemia; Z79.4 - predatory animal exterminator (current) use of insulin (5) HTN (hypertension) Current Visit: Yes Status: Chronic Hypertension type: primary hypertension Qualified Code(s): I10 - Essential (primary) hypertension (6) History of CVA (cerebrovascular accident) Current Visit: Yes Status: Chronic (7) CAD (coronary artery disease) Current Visit: Yes Status: Chronic Coronary Disease-Associated Artery/Lesion type: [place] artery [place] vs. transplanted heart: [place] heart Associated angina: with other forms of angina Qualified Code(s): I25.118 - Atherosclerotic heart disease of [place] coronary artery with other forms of angina pectoris (8) Chronic anticoagulation Current Visit: Yes Status: Chronic - Plan -amiodarone drip -anticoagulation -strict BP and BS control -continue with cardiac meds -continue with inhaler therapy -monitor weight -PT eval and therapy
--- NOTE | 2022-12-13 03:06 | P.PN ---
Date of Service: 12/12/22 Subjective Upset about his blood sugars; calling his -I spoke to him on numerous occasions Physical Examination - Vital Signs reviewed - Physical Exam General: Alert, In no apparent distress Respiratory: Clear to auscultation bilaterally, Normal air movement Cardiovascular: Regular rate/rhythm, Normal S1 S2 Gastrointestinal: Normal bowel sounds, No tenderness Musculoskeletal: No tenderness Neurological: No focal deficits Assessment and Plan - Problems (Diagnosis) (1) Atrial flutter with rapid ventricular response Current Visit: Yes Status: Acute (2) CHF (congestive heart failure) Current Visit: Yes Status: Chronic Heart failure type: diastolic Heart failure chronicity: acute on chronic Qualified Code(s): I50.33 - Acute on chronic diastolic (congestive) heart failure (3) COPD (chronic obstructive pulmonary disease) Current Visit: Yes Status: Chronic COPD type: unspecified COPD Qualified Code(s): J44.9 - Chronic obstructive pulmonary disease, unspecified (4) DM2 (diabetes mellitus, type 2) Current Visit: Yes Status: Chronic Diabetes mellitus nursing home insulin use: with tank terminal gauger use Diabetes mellitus complication status: with hyperglycemia Qualified Code(s): E11.65 - Type 2 diabetes mellitus with hyperglycemia; Z79.4 - senior care (current) use of insulin (5) HTN (hypertension) Current Visit: Yes Status: Chronic Hypertension type: primary hypertension Qualified Code(s): I10 - Essential (primary) hypertension (6) History of CVA (cerebrovascular accident) Current Visit: Yes Status: Chronic (7) CAD (coronary artery disease) Current Visit: Yes Status: Chronic Coronary Disease-Associated Artery/Lesion type: [place] artery [place] vs. transplanted heart: [place] heart Associated angina: with other forms of angina Qualified Code(s): I25.118 - Atherosclerotic heart disease of [place] coronary artery with other forms of angina pectoris (8) Chronic anticoagulation Current Visit: Yes Status: Chronic - Plan Continue with POC as mentioned below: -amiodarone drip -anticoagulation -strict BP and BS control -continue with cardiac meds -continue with inhaler therapy -monitor weight -PT eval and therapy -EDMUND with cardiovesion
[2022-12-13] MEDS: METOPROLOL TAR 25 MG TAB PO SCH ×2 (05:24→16:54)
[2022-12-13] MEDS: INSULIN GLARGINE 100 UNIT/ML SQ SCH (08:00)
[2022-12-13] MEDS: predniSONE 20 MG TAB PO SCH ×2 (11:33→20:07)
[2022-12-13] MEDS: APIXABAN 5 MG TABLET PO SCH ×2 (11:33→20:08)
[2022-12-13] MEDS: DULERA 100/5 (MOMETASONE/FORMOTEROL) INHALER IH SCH ×2 (11:33→20:07)
[2022-12-13] MEDS ORDERED: D10W 250 ML BAG IV PRN (15:21)
[2022-12-13] MEDS: LEVALBUTEROL 1.25 MG/3 ML NEB IH PRN ×2 (15:25→20:25)
--- NOTE | 2022-12-13 15:27 | EKG ---
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
[2022-12-13] MEDS: AMIODARONE HCL 200 MG TAB PO SCH ×2 (16:54→20:08)
[2022-12-13] MEDS: INSULIN -REGULAR HUMAN 50 UNIT/0.5 ML ML IV SCH (16:55)
[2022-12-13] MEDS ORDERED: CODEINE 30MG/APAP 300MG TAB PO PRN (17:55)
[2022-12-13] MEDS ORDERED: ENZYMES DIGESTIVE PO PRN (17:55)
[2022-12-13] MEDS: DOCUSATE NA 100 MG CAP PO SCH (20:08)
[2022-12-13] MEDS: SPIRONOLACTONE 25 MG TABLET PO SCH (20:08)
[2022-12-13] MEDS: oxyBUTYnin chloride 5 MG TAB PO SCH (20:08)
[2022-12-13] MEDS ORDERED: HOME MED 1 EA UNK (Fluticasone/Salmeterol [Advair 250-50 Diskus] Blst.W.Dev) IH SCH (21:00)
[2022-12-13] MEDS ORDERED: AMIODARONE HCL 200 MG TAB PO SCH (21:00)
[2022-12-13] MEDS ORDERED: AMYLASE PO SCH (21:00)
[2022-12-13] MEDS ORDERED: ATORVASTATIN 10 MG TAB PO SCH (21:00)
[2022-12-13] MEDS ORDERED: LIPASE PO SCH (21:00)
[2022-12-13] MEDS ORDERED: PROTEASE PO SCH (21:00)
[2022-12-13] MEDS ORDERED: HOME MED 1 EA UNK (Apixaban [Eliquis] 5 MG Tab.Ds.Pk) PO SCH (21:00)
[2022-12-13] MEDS ORDERED: INSULIN -REGULAR HUMAN 50 UNIT/0.5 ML ML ONE (22:16)
[2022-12-13] MEDS: INSULIN -REGULAR HUMAN 50 UNIT/0.5 ML ML SQ SCH (22:20)
[2022-12-14] MEDS: METOPROLOL TAR 25 MG TAB PO SCH (05:48)
--- NOTE | 2022-12-14 07:22 | P.PN ---
Date of Service: 12/13/22 Subjective Patient doing much better. He is anxious to go home. We will have him work with physical therapy and anticipate discharge tomorrow. Switched over to amiodarone twice a day. Physical Examination - Vital Signs reviewed - Physical Exam General: Alert, In no apparent distress Respiratory: Clear to auscultation bilaterally, Normal air movement Cardiovascular: Regular rate/rhythm, Normal S1 S2 Gastrointestinal: Normal bowel sounds, No tenderness Musculoskeletal: No tenderness Neurological: No focal deficits Assessment and Plan - Problems (Diagnosis) (1) Atrial flutter with rapid ventricular response Current Visit: Yes Status: Acute (2) CHF (congestive heart failure) Current Visit: Yes Status: Chronic Heart failure type: diastolic Heart failure chronicity: acute on chronic Qualified Code(s): I50.33 - Acute on chronic diastolic (congestive) heart failure (3) COPD (chronic obstructive pulmonary disease) Current Visit: Yes Status: Chronic COPD type: unspecified COPD Qualified Code(s): J44.9 - Chronic obstructive pulmonary disease, unspecified (4) DM2 (diabetes mellitus, type 2) Current Visit: Yes Status: Chronic Diabetes mellitus assisted insulin use: with joint terminal attack controller use Diabetes mellitus complication status: with hyperglycemia Qualified Code(s): E11.65 - Type 2 diabetes mellitus with hyperglycemia; Z79.4 - manager terminal (current) use of insulin (5) HTN (hypertension) Current Visit: Yes Status: Chronic Hypertension type: primary hypertension Qualified Code(s): I10 - Essential (primary) hypertension (6) History of CVA (cerebrovascular accident) Current Visit: Yes Status: Chronic (7) CAD (coronary artery disease) Current Visit: Yes Status: Chronic Coronary Disease-Associated Artery/Lesion type: [place] artery [place] vs. transplanted heart: [place] heart Associated angina: with other forms of angina Qualified Code(s): I25.118 - Atherosclerotic heart disease of [place] coronary artery with other forms of angina pectoris (8) Chronic anticoagulation Current Visit: Yes Status: Chronic - Plan Continue with POC as mentioned below: -amiodarone 200 mg p.o. twice a day -anticoagulation -strict BP and BS control -continue with cardiac meds -continue with inhaler therapy -monitor weight -PT eval and therapy -EDMUND with cardiovesion aborted as patient has refused
[2022-12-14] MEDS: INSULIN -REGULAR HUMAN 50 UNIT/0.5 ML ML SQ SCH (07:30)
[2022-12-14 08:40] VITALS: BP 121/73; TEMP 97.8
[2022-12-14] MEDS ORDERED: FAMOTIDINE 20 MG TAB PO SCH (09:00)
[2022-12-14] MEDS ORDERED: TAMSULOSIN 0.4 MG SR CAP PO SCH (09:00)
[2022-12-14] MEDS ORDERED: FINASTERIDE 5 MG TAB PO SCH (09:00)
[2022-12-14] MEDS ORDERED: LATANOPROST 0.005% 2.5ML OPTH OPTH SCH (09:00)
[2022-12-14] MEDS ORDERED: CALCIUM CARB 500MG/VIT D 200 IU TAB PO SCH (09:00)
[2022-12-14] MEDS ORDERED: PANTOPRAZOLE 40MG TABLET PO SCH (09:00)
[2022-12-14] MEDS ORDERED: MULTIVIT W/ MINERAL TAB PO SCH (09:00)
[2022-12-14] MEDS ORDERED: LORATADINE 10 MG TAB PO SCH (09:00)
[2022-12-14] MEDS: INSULIN GLARGINE 100 UNIT/ML SQ SCH (09:25)
[2022-12-14] MEDS: AMIODARONE HCL 200 MG TAB PO SCH (09:25)
[2022-12-14] MEDS: DULERA 100/5 (MOMETASONE/FORMOTEROL) INHALER IH SCH (09:25)
[2022-12-14] MEDS: DOCUSATE NA 100 MG CAP PO SCH (09:26)
[2022-12-14] MEDS: predniSONE 20 MG TAB PO SCH (09:26)
[2022-12-14] MEDS: oxyBUTYnin chloride 5 MG TAB PO SCH (09:26)
[2022-12-14] MEDS: SPIRONOLACTONE 25 MG TABLET PO SCH (09:26)
[2022-12-14] MEDS: APIXABAN 5 MG TABLET PO SCH (09:26)
[2022-12-14 10:51] LABS: Absolute Lymphocytes (CBC) 0.7 K/uL (0.7-4.9); Hematocrit 34.9 % (39.6-49.0); Lymphocytes % 7.7 % (15.3-44.8); MCV 91.9 fL (80-100); MPV 7.4 fL (7.6-11.3)
[2022-12-14 11:06] LABS: Potassium 5.3 mEq/L (3.5-5.1)
[2022-12-14] MEDS ORDERED: INSULIN -REGULAR HUMAN 50 UNIT/0.5 ML ML SQ SCH (11:30)
--- NOTE | 2022-12-15 11:52 | PN ---
Date of Progress Note: 12/13/2022 The patient has been followed by Dr. Whitehead since 12/11/2022. I saw him on 12/13/2022. The patient is here with atrial flutter. Dr. Roche initially admitted him. Has a history of pacemaker. The ivette ent now is on p.o. amiodarone 400 twice a day, Eliquis, Lipitor, Aldactone, metoprolol, and insulin. Remained in flutter, rate controlled. No cardiac symptoms. Continue present regimen. ZANE/DARIEN Voice ID: [id number] Report ID: [id number]
--- NOTE | 2022-12-15 11:55 | PN ---
Date of Progress Note: 12/14/2022 Patient was admitted by Dr. Roche with a new-onset atrial flutter. Has a history of pacemaker. Has b een placed on IV amiodarone, now p.o. amiodarone 400 b.i.d., rate is controlled. Remained in atrial flutter with no symptoms. He will be going home on amiodarone 400 b.i.d. for a week and then 200 mg daily after that. He will continue Eliquis, Lipitor, Aldactone, metoprolol, and insulin. He can go home from our standpoint. We will see him in the office soon. If he is still in atrial fibrillation , we will set him up for a cardioversion. ZANE/DARIEN Voice ID: [id number] Report ID: [id number]
== END 2022-12-14 11:50 | disposition home health service (06) | DRG 308 ==
LOC: ER 16:09 → 2ND 19:01
PROVIDERS: ADMIT Hospitalist; ATTEND Hospitalist
DX: I48.92 Unspecified atrial flutter (principal); I50.33 Acute on chronic diastolic (congestive) heart failure; Z68.1 Body mass index [BMI] 19.9 or less, adult; J44.0 Chronic obstructive pulmonary disease with (acute) lower respiratory infection; J20.9 Acute bronchitis, unspecified; I11.0 Hypertensive heart disease with heart failure; I48.91 Unspecified atrial fibrillation; E66.9 Obesity, unspecified; E11.65 Type 2 diabetes mellitus with hyperglycemia; I25.118 Atherosclerotic heart disease of native coronary artery with other forms of angina pectoris; Z79.4 Long term (current) use of insulin; Z88.5 Allergy status to narcotic agent; Z79.01 Long term (current) use of anticoagulants; Z86.73 Personal history of transient ischemic attack (TIA), and cerebral infarction without residual deficits; Z95.810 Presence of automatic (implantable) cardiac defibrillator; Z79.899 Other long term (current) drug therapy; Z87.891 Personal history of nicotine dependence
CPT/HCPCS: 36415; 70450; 71045; 80048; 80061; 80076; 81003; 82947; 83735; 83880; 84100; 84443; 84484; 85025; 85610; 93005; 94640; 97112; 97116; 97161; 97530; 99285; J0282; J1100; J1160; J1815; J1940; J3475; J3535; J7030; J7060; J7512; J7614